=== PATIENT | female | born 1940 | race Caucasian/White ===

== ENCOUNTER 2022-06-25 17:55 | Outpatient (REF) | payer MEDICARE, SELFPAY ==
[2022-06-25 18:49] LABS: Appearance Urine Slightly Cloudy (Clear); Bilirubin Urine Negative (Negative); Blood Urine 1+ (Negative); Color Urine Yellow (Yellow); Glucose Urine Negative (Negative); Ketones Urine Negative (Negative); Leukocyte Esterase Urine 1+ (Negative); Nitrite Urine Negative (Negative); Protein Urine 1+ (Negative); Specific Gravity Urine 1.025 (1.000-1.030); Urobilinogen Urine 0.2 (0.2-1.0); pH Urine 5.5 (5.0-8.5)
[2022-06-25 19:13] LABS: RBC Urine 0-2 (0-2); Squamous Epithelial Cell Urine Moderate (None-Few)
== END 2022-06-25 17:56 | disposition home or self-care (01) ==
LOC: NPINS 17:55
PROVIDERS: Visit Provider Nurse Practitioner Gerontology
DX: R82.90 Unspecified abnormal findings in urine (principal)
CPT/HCPCS: 81001; 87086

== ENCOUNTER 2022-06-29 20:16 | Outpatient (CLI) | payer MEDICARE, SELFPAY | END 2022-06-29 20:17 | disposition home or self-care (01) | LOC: AMB 07-15 12:38 | PROVIDERS: Visit Provider Family Medicine | DX: S09.90XA Unspecified injury of head, initial encounter (principal); W06.XXXA Fall from bed, initial encounter; Y92.121 Bathroom in nursing home as the place of occurrence of the external cause | CPT/HCPCS: A0425; A0427 ==

== ENCOUNTER 2022-06-29 20:37 | Emergency (ER) | payer MEDICARE, SELFPAY ==
[2022-06-29] VITALS (18 sets, daily range): BP systolic 109–132; BP diastolic 52–89; PULSE 62–66; RESP 18; TEMP 36; O2SAT 70–96
--- NOTE | 2022-06-29 20:45 | CRLHL7_ITS ---
For Patients: As a result of the Century Cures Act, medical imaging exams and procedure reports are released immediately into your electronic medical record. You may view this report before your referring provider. If you have questions, please contact your health care provider. INDICATION: Fall. TECHNIQUE: CT cervical spine without contrast. Coronal and sagittal reformats were generated. COMPARISON: CT cervical spine from 08/22/2021. FINDINGS: Vertebrae: Alignment is normal. No fractures or suspicious bony lesions. Discs and facet joints: Multilevel degenerative changes in the form of disc space narrowing, subchondral sclerosis, and small marginal osteophytes. The changes are most prominent at C6-C7. Osteoarthritic changes involve the apophyseal joints throughout the cervical spine. Extraspinal findings: Prevertebral soft tissues, visualized airway, and visualized lungs are unremarkable. IMPRESSION: Degenerative changes. No acute abnormality. Please note that all CT scans at this facility use dose modulation, iterative reconstruction, and/or weight-based dosing when appropriate to reduce radiation dose to as low as reasonably achievable. Dictated by Ángel Abdullahi MD @ 06/29/2022 9:43:54 PM (Electronically Signed)
--- NOTE | 2022-06-29 20:45 | CRLHL7_ITS ---
For Patients: As a result of the Century Cures Act, medical imaging exams and procedure reports are released immediately into your electronic medical record. You may view this report before your referring provider. If you have questions, please contact your health care provider. INDICATION: Fall. TECHNIQUE: Head CT without contrast. Coronal and sagittal reformats were generated. COMPARISON: CT head from 03/08/2022 and 11/19/2021. FINDINGS: CSF spaces: Within normal limits for age. Brain parenchyma and extra-axial spaces: Nonspecific low attenuation white matter changes consistent with chronic microvascular disease. No sign of mass, hemorrhage, or midline shift. Skull base and calvarium: The visualized paranasal sinuses and mastoid air cells demonstrate no acute or significant findings. The visualized orbits are grossly unremarkable. No skull fractures. IMPRESSION: No acute or significant findings. Please note that all CT scans at this facility use dose modulation, iterative reconstruction, and/or weight-based dosing when appropriate to reduce radiation dose to as low as reasonably achievable. Dictated by Ángel Abdullahi MD @ 06/29/2022 9:46:13 PM (Electronically Signed)
--- NOTE | 2022-06-29 20:45 | CRLHL7_ITS ---
For Patients: As a result of the Century Cures Act, medical imaging exams and procedure reports are released immediately into your electronic medical record. You may view this report before your referring provider. If you have questions, please contact your health care provider. INDICATION: Fall. TECHNIQUE: CT thoracic spine without contrast. Coronal and sagittal reformats were generated. COMPARISON: None. FINDINGS: Vertebrae: Mild increased kyphosis. No fractures or suspicious bony lesions. Discs and facet joints: Multilevel degenerative changes in the form of disc space narrowing, subchondral sclerosis, and marginal osteophyte formation. Extraspinal findings: Prevertebral soft tissues, visualized airway, and visualized lungs are unremarkable. 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 IMPRESSION: IMPRESSION:No sign of acute injury. Please note that all CT scans at this facility use dose modulation, iterative reconstruction, and/or weight-based dosing when appropriate to reduce radiation dose to as low as reasonably achievable. Dictated by Ángel Abdullahi MD @ 06/29/2022 9:51:17 PM (Electronically Signed)
--- NOTE | 2022-06-29 20:48 | ED_ITS ---
HPI - General Adult General Time Seen by Provider: 20:43 Date Seen: 06/29/22 Chief complaint: Fall/Minor Trauma Stated complaint: Fall Time Seen by Provider: 06/29/22 20:41 Source: patient and EMS Mode of arrival: EMS Limitations: other (History of dementia) History of Present Illness HPI narrative: 82-year-old female who comes from [facility] after fall. Patient says she was up to the bathroom and lost her balance going back to bed. She did hit her head and thinks she may have lost consciousness. Complains of head, neck, and back pain. Denies preceding chest pain, lightheadedness, palpitations, or shortness of breath. Denies preceding nausea, vomiting, diarrhea. Other than her head, neck, and back pain, no other complaints at this time. Arrives in cervical collar by EMS. Related Data Home Medications Medication Instructions Recorded Confirmed acetaminophen 500 mg tablet 1,000 mg PO Q6H PRN pain 06/29/22 06/29/22 (Acetaminophen Extra Strength) albuterol sulfate 90 mcg/actuation 1 puff inhalation Q4H PRN 06/29/22 06/29/22 aerosol inhaler bronchospasm aluminum-mag hydroxide-simethicone 30 ml PO PRN indigestion 06/29/22 200 mg-200 mg-20 mg/5 mL oral susp (Maalox Advanced) ascorbic acid (vitamin C) 1,000 mg 1 g PO BID 06/29/22 06/29/22 tablet aspirin 81 mg tablet,delayed 81 mg PO .QHS 06/29/22 06/29/22 release (John Low Dose Aspirin) atorvastatin 20 mg tablet 20 mg PO DAILY 06/29/22 06/29/22 bisacodyl 10 mg rectal suppository 10 mg OR PRN constipation 06/29/22 cholecalciferol (vitamin D3) 50 2,000 unit PO DAILY 06/29/22 06/29/22 mcg (2,000 unit) tablet (Vitamin D3) fluticasone 113 mcg-salmeterol 14 1 inh inhalation BID 06/29/22 06/29/22 mcg/actuation breath activated powdr fluticasone propionate 50 2 spray intranasal BID 06/29/22 06/29/22 mcg/actuation nasal spray,suspension furosemide 20 mg tablet 10 mg PO DAILY 06/29/22 06/29/22 gabapentin 100 mg capsule 200 mg PO TID 06/29/22 06/29/22 galantamine 8 mg 24 hr 8 mg PO DAILY 06/29/22 06/29/22 capsule,extended release isosorbide mononitrate 60 mg 60 mg PO DAILY 06/29/22 06/29/22 tablet,extended release 24 hr lamotrigine 150 mg tablet 300 mg PO DAILY 06/29/22 06/29/22 levothyroxine 88 mcg tablet 88 mcg PO DAILY 06/29/22 06/29/22 melatonin 3 mg tablet 3 mg PO .qhs 06/29/22 06/29/22 memantine 14 mg capsule 14 mg PO DAILY 06/29/22 06/29/22 sprinkle,extended release 24hr methenamine hippurate 1 gram tablet 1 g PO BID 06/29/22 06/29/22 nitroglycerin 0.4 mg sublingual 0.4 mg sublingual Q5M PRN 06/29/22 06/29/22 tablet polyethylene glycol 3350 17 17 g PO DAILY 06/29/22 06/29/22 gram/dose oral powder (Miralax) sennosides 8.6 mg tablet (senna) 8.6 mg PO DAILY 06/29/22 06/29/22 sertraline 100 mg tablet 100 mg PO DAILY 06/29/22 06/29/22 Allergies Allergy/AdvReac Type Severity Reaction Status Date / Time cefdinir Allergy Verified 06/29/22 21:08 cephalexin Allergy Verified 06/29/22 21:08 nitrofurantoin Allergy Verified 06/29/22 21:08 Sulfa (Sulfonamide Allergy Verified 06/29/22 21:08 Antibiotics) Review of Systems Status of ROS: Reports: 10 or more systems reviewed and unremarkable except as noted in History and below [facility] Medical History (Updated 06/29/22 @ 22:34 by Bautista Krishnamurthy MD) Alzheimer's disease with late onset Calculus of gallbladder with acute cholecystitis without obstruction Calculus of kidney Constipation, unspecified Dementia in other diseases classified elsewhere with behavioral disturbance 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, unspecified Edema, unspecified Essential (primary) hypertension Gastro-esophageal reflux disease without esophagitis Generalized anxiety disorder Hyperlipidemia, unspecified Hypothyroidism, unspecified Immunodeficiency, unspecified Obesity, unspecified Other idiopathic peripheral autonomic neuropathy Other specified symptoms and signs involving the digestive system and abdomen Pain, unspecified Personal history of (healed) traumatic fracture Presence of other specified devices Repeated falls Restless legs syndrome Retention of urine, unspecified Sensorineural hearing loss, bilateral ST elevation (STEMI) myocardial infarction involving other coronary artery of anterior wall Syncope and collapse Traumatic subdural hemorrhage with loss of consciousness of unspecified duration, subsequent encounter Type 2 diabetes mellitus without complications Unspecified urethral stricture, female Urinary tract infection, site not specified Vitamin B12 deficiency anemia, unspecified Vitamin deficiency, unspecified Surgical History (Updated 06/29/22 @ 21:22 by Aixa Resendiz RN) Other specified postprocedural states Social History Smoking Status: Unknown if ever smoked How often do you have a drink containing alcohol: never AUDIT-C Alcohol total score: 0 Non-prescribed substance use: denies use Exam Narrative: Exam Narrative: Airway intact Breathing respirations nonlabored, lungs clear bilaterally Circulation had dried blood in the hair, no other obvious sources of bleeding Neuro alert and oriented x3, no focal neurologic deficits General: Well-developed and well-nourished, no acute distress Head: Bloody hair left occipital area with about 3 cm area of linear dry blood, question laceration but unable to visualize this area. Boggy swelling around this. Eyes: Pupils are equal reactive, extraocular motions intact, conjunctiva clear ENT: External nose and ears are normal, posterior pharynx without erythema or exudate Neck: Cervical collar in place, midline tenderness at C5-C6 Heart: Regular rate and rhythm no murmurs or thrills Lungs: Clear to auscultation bilaterally without wheezes or crackles Abdomen: Soft, nontender, nondistended with active bowel sounds Musculoskeletal: Upper thoracic tenderness, no low thoracic or lumbar tenderness. No tenderness or deformity of the upper extremities. Moderate bilateral lower extremity edema, no tenderness of the lower extremities and patient straight leg raises each leg independently without difficulty Neurologic: Awake, alert, and oriented x3, no gross focal neurologic deficits, cranial nerves intact as tested Psych: Mood and affect are appropriate Skin: No rashes Const: Vital Signs, click to edit/add: Vital Signs - 24 hr 06/29/22 21:00 06/29/22 21:15 06/29/22 21:16 Temperature 96.8 F L Pulse Rate 65 66 Respiratory Rate 18 Blood Pressure 131/68 Blood Pressure [Le ft Upper Arm] 129/89 Pulse Oximetry 70 L 93 95 Oxygen Delivery Me thod Room Air 06/29/22 21:17 06/29/22 21:22 Temperature Pulse Rate 64 66 Respiratory Rate Blood Pressure 129/65 Blood Pressure [Le ft Upper Arm] Pulse Oximetry 96 93 Oxygen Delivery Me thod Course Course Hospital Course: Trauma team alert activated by EMS. Patient seen immediately on arrival. She has some blood in the back of the hair and reported head injury with loss of conscious, head CT is ordered to evaluate for possible intracranial hemorrhage or skull fracture. Cervical collar is in place and she does complain of some midline neck pain with low cervical tenderness, also has some upper thoracic tenderness. CT scans ordered to evaluate for bony injury, patient is neurologically intact. No evidence for extremity injury including hip fracture. Patient denies lightheadedness or syncope preceding her fall and says she lost her balance. Labs and EKG are ordered. If CT scans are reassuring and labs are reassuring, patient can be discharged home. Reevaluation(s) Reevaluation #1: CT scan of the head, neck, and thoracic spine negative. Cervical collar removed and patient has some dried blood on the left occipital area. This will be cleaned as it feels like there may be an underlying laceration that will need sutures. Time: 21:56 Reevaluation #2: Labs are reassuring, nurse is cleaning scalp to determine if there is a suturable laceration. Time: 22:27 Reevaluation #3: 3 mm superficial laceration on the left occipital area which is the source of bleeding. Dermabond was applied. Time: 22:35 Vital Signs Vital signs: Initial Vital Signs Temperature 96.8 F L 06/29/22 21:00 Temperature Source Temporal Artery Scan 06/29/22 21:00 Respiratory Rate 18 06/29/22 21:00 Blood Pressure 129/89 06/29/22 21:00 Blood Pressure Mean 102 06/29/22 21:00 Pulse Oximetry 70 L 06/29/22 21:00 Oxygen Delivery Method 06/29/22 21:00 Vital Signs Temperature 96.8 F L 06/29/22 21:00 Respiratory Rate 18 06/29/22 21:00 Blood Pressure 129/89 06/29/22 21:00 Pulse Oximetry 70 L 06/29/22 21:00 Oxygen Delivery Method 06/29/22 21:00 Temperature 96.8 F L 06/29/22 21:00 Pulse Rate 66 06/29/22 21:22 Respiratory Rate 18 06/29/22 21:00 Blood Pressure 129/65 06/29/22 21:22 Pulse Oximetry 93 06/29/22 21:22 Oxygen Delivery Method 06/29/22 21:00 Medical Decision Making Medical Records Medical records reviewed: Yes I reviewed the patient's medical records Lab Data Lab results reviewed: Yes I reviewed the patient's lab results Labs: Lab Results 06/29/22 06/29/22 Range/Units 20:45 20:45 WBC 3.70 L (4.50-11.00) K/uL RBC 3.65 L (4.00-5.20) m/uL Hgb 11.1 L (12.0-16.0) gm/dL Hct 33.5 (33.0-51.0) % MCV 92 (80-100) fL MCH 30 (26-34) pg MCHC 33 (32-36) gm/dL RDW Coeff of Latoya 13.2 (11.5-15.5) % Plt Count 123 L (140-440) K/uL Neut % (Auto) 58.1 (42.0-72.0) % Lymph % (Auto) 28.1 (20-44) % [place] % (Auto) 10.5 (0.0-11.0) % Eos % (Auto) 3.0 (0.0-7.0) % Baso % (Auto) 0.3 (0.0-3.0) % Neut # (Auto) 2.10 (1.7-7.0) K/uL Lymph # (Auto) 1.00 (0.90-2.90) K/uL [place] # (Auto) 0.40 (0.00-0.90) K/UL Eos # (Auto) 0.10 (0.00-0.50) K/uL Baso # (Auto) 0.00 (0.00-0.30) K/uL Abs Immat Gran (auto) 0.00 (0.00-0.30) K/uL Sodium 139 (135-149) mmol/L Potassium 3.7 (3.6-5.1) mmol/L Chloride 104 (96-114) mmol/L Carbon Dioxide 26 (20-32) mmol/L BUN 16 (7-30) mg/dL Creatinine 0.7 (0.5-1.5) mg/dL Estimated GFR 87 ml/min Glucose 116 H (60-115) mg/dL Calcium 8.5 (8.4-10.6) mg/dL Discharge Plan Discharge Clinical Impression: Hematoma of occipital region of scalp, Abrasion of scalp Patient Disposition: Home w/ Parent or Adult Condition: Stable Instructions: Scalp Contusion in Adults (ED), Head Laceration (ED) Additional Instructions: The abrasion on the back of the head was sealed with tissue adhesive. Keep this area dry today and tomorrow, on Thursday you may wash your hair. There may still be a little bit of bleeding so put a towel or old pillow case on your pillow Activity Level: No Restrictions Discharge Diet: Regular Prescriptions: No Action acetaminophen [Acetaminophen Extra Strength] 500 mg tablet 1,000 mg PO Q6H PRN (Reason: pain) Label Comments: Give 2 tablets every 6 hours for pain albuterol sulfate 90 mcg/actuation HFA aerosol inhaler 1 puff INHALATION Q4H PRN (Reason: bronchospasm) Label Comments: 1 puff inhale by mouth every 4 hours as needed alum-mag hydroxide-simeth [Maalox Advanced] 200-200-20 mg/5 mL suspension 30 ml PO PRN (Reason: indigestion) Label Comments: Give 30ml as needed TID aspirin [John Low Dose Aspirin] 81 mg tablet,delayed release (DR/EC) 81 mg PO .QHS Label Comments: 1 tablet by mouth once a day atorvastatin 20 mg tablet 20 mg PO DAILY bisacodyl 10 mg suppository 10 mg OR PRN (Reason: constipation) Label Comments: Give 1 suppository rectally as needed fluticasone propionate 50 mcg/actuation spray,suspension 2 spray INTRANASAL BID furosemide 20 mg tablet 10 mg PO DAILY gabapentin 100 mg capsule 200 mg PO TID galantamine 8 mg capsule,ext rel. pellets 24 hr 8 mg PO DAILY ascorbic acid (vitamin C) 1,000 mg tablet 1 g PO BID Label Comments: 1 tablet by mouth twice a day cholecalciferol (vitamin D3) [Vitamin D3] 50 mcg (2,000 unit) tablet 2,000 unit PO DAILY Label Comments: 1 tablet by mouth once a day sertraline 100 mg tablet 100 mg PO DAILY fluticasone propion-salmeterol 113-14 mcg/actuation aerosol powdr breath activated 1 inh INHALATION BID isosorbide mononitrate 60 mg tablet extended release 24 hr 60 mg PO DAILY lamotrigine 150 mg tablet 300 mg PO DAILY levothyroxine 88 mcg tablet 88 mcg PO DAILY melatonin 3 mg tablet 3 mg PO .qhs Label Comments: 1 tablet by mouth at bedtime memantine 14 mg capsule,sprinkle,ER 24hr 14 mg PO DAILY methenamine hippurate 1 gram tablet 1 g PO BID polyethylene glycol 3350 [Miralax] 17 gram/dose powder 17 g PO DAILY Label Comments: Mix 1 capful of Miralax in water or juice every morning. nitroglycerin 0.4 mg tablet, sublingual 0.4 mg sublingual Q5M PRN sennosides [senna] 8.6 mg tablet 8.6 mg PO DAILY Label Comments: 1 tablet by mouth every morning Stand Alone Forms: [facility] Info Instructions
[2022-06-29 20:55] LABS: Basophils Percent Auto 0.3 % (0.0-3.0); Hematocrit 33.5 % (33.0-51.0); Hemoglobin* 11.1 gm/dL (12.0-16.0); Lymphocytes Percent Auto 28.1 % (20-44); Mean Corpuscular HGB Conc 33 gm/dL (32-36); Mean Corpuscular Hemoglobin 30 pg (26-34); Mean Corpuscular Volume 92 fL (80-100); Monocytes Percent Auto 10.5 % (0.0-11.0); Neutrophils Percent Auto 58.1 % (42.0-72.0); Platelet Count* 123 K/uL (140-440); RDW Coefficient of Variation % 13.2 % (11.5-15.5); Red Blood Count 3.65 m/uL (4.00-5.20); Slide Review Reflex No
[2022-06-29 21:07] LABS: Chloride* 104 mmol/L (96-114); Potassium* 3.7 mmol/L (3.6-5.1); Sodium* 139 mmol/L (135-149)
[2022-06-29 21:10] LABS: Blood Urea Nitrogen* 16 mg/dL (7-30); Calcium* 8.5 mg/dL (8.4-10.6); Carbon Dioxide* 26 mmol/L (20-32); Creatinine* 0.7 mg/dL (0.5-1.5); Estimated Glomerular Filt Rate 87 ml/min; Glucose* 116 mg/dL (60-115)
--- NOTE | 2022-06-29 21:30 | PC.NURSE ---
Update to ROGERIO Gardner at [facility]. Will keep [facility] updated on plan for patient.
--- NOTE | 2022-06-29 22:25 | PC.NURSE ---
Back of head cleaned with sure cleanse and sterile water. Dr. Krishnamurthy closed wound with dermabond.
--- NOTE | 2022-06-29 22:40 | PC.NURSE ---
Call to [facility] to notify staff that patient will be returning via private vehicle with driving.
== END 2022-06-29 23:04 | disposition home or self-care (01) ==
PROVIDERS: Emergency Provider Family Medicine
DX: S01.01XA Laceration without foreign body of scalp, initial encounter (principal); W18.30XA Fall on same level, unspecified, initial encounter; Y92.092 Bedroom in other non-institutional residence as the place of occurrence of the external cause
CPT/HCPCS: 12001; 36415; 70450; 72125; 72128; 80048; 85025; 99284; 99285; 99291; G0390

== ENCOUNTER 2022-07-08 11:18 | Outpatient (REF) | payer MEDICARE, SELFPAY ==
[2022-07-08 13:39] LABS: Hemoglobin* 11.9 gm/dL (12.0-16.0)
[2022-07-08 14:09] LABS: Chloride* 107 mmol/L (96-114); Potassium* 3.9 mmol/L (3.6-5.1); Sodium* 140 mmol/L (135-149)
[2022-07-08 14:11] LABS: Creatinine* 0.7 mg/dL (0.5-1.5); Estimated Glomerular Filt Rate 87 ml/min
[2022-07-08 14:12] LABS: Blood Urea Nitrogen* 11 mg/dL (7-30); Calcium* 9.1 mg/dL (8.4-10.6); Carbon Dioxide* 22 mmol/L (20-32); Glucose* 101 mg/dL (60-115)
[2022-07-08 14:57] LABS: Hemoglobin A1C* 5.92 % (0-5.6)
== END 2022-07-08 11:19 | disposition home or self-care (01) ==
LOC: NPINS 11:18
PROVIDERS: Visit Provider Nurse Practitioner Gerontology
DX: E11.9 Type 2 diabetes mellitus without complications (principal)
CPT/HCPCS: 80048; 83036; 84443; 85018

== ENCOUNTER 2022-07-13 11:54 | Outpatient (CLI) | payer MEDICARE, SELFPAY | END 2022-07-13 11:55 | disposition home or self-care (01) | PROVIDERS: Visit Provider Family Medicine | DX: S19.9XXA Unspecified injury of neck, initial encounter (principal); W19.XXXA Unspecified fall, initial encounter; Y92.092 Bedroom in other non-institutional residence as the place of occurrence of the external cause | CPT/HCPCS: A0425; A0429 ==

== ENCOUNTER 2022-07-13 12:07 | Emergency (ER) | payer MEDICARE, SELFPAY ==
[2022-07-13 12:13] VITALS: BP 119/76; TEMP 36.2; O2SAT 95
--- NOTE | 2022-07-13 12:15 | CRLHL7_ITS ---
For Patients: As a result of the Century Cures Act, medical imaging exams and procedure reports are released immediately into your electronic medical record. You may view this report before your referring provider. If you have questions, please contact your health care provider. INDICATION: Fall. TECHNIQUE: Noncontrast CT images acquired through the brain. COMPARISON: CT brain 06/29/2022. FINDINGS: Mild to moderate diffuse cerebral volume loss. No mass effect or midline shift. The galo-white differentiation is maintained. No acute intracranial hemorrhage or pathologic extra-axial fluid collection. Patchy hypoattenuation in the supratentorial white matter, suggestive of moderate chronic microvascular ischemic changes. Intracranial atherosclerotic calcifications. Thinning of the ocular lenses. The calvarium is intact. Postsurgical changes of endoscopic sinus surgery. Minimal ethmoid sinus mucosal thickening. The mastoid air cells are clear. IMPRESSION: No acute intracranial hemorrhage or mass effect. No significant change compared to the prior CT. Please note that all CT scans at this facility use dose modulation, iterative reconstruction, and/or weight-based dosing when appropriate to reduce radiation dose to as low as reasonably achievable. Dictated by Nolan Padilla MD @ 07/13/2022 1:11:37 PM (Electronically Signed)
--- NOTE | 2022-07-13 12:15 | CRLHL7_ITS ---
For Patients: As a result of the Cures Act, medical imaging exams and procedure reports are released immediately into your electronic medical record. You may view this report before your referring provider. If you have questions, please contact your health care provider. Indication: Fall Technique: AP pelvis and right hip views Comparison: No comparison Findings: Normal alignment. No acute fractures Dictated by Krupa Lester MD @ 07/13/2022 1:54:58 PM (Electronically Signed)
--- NOTE | 2022-07-13 12:15 | CRLHL7_ITS ---
For Patients: As a result of the Cures Act, medical imaging exams and procedure reports are released immediately into your electronic medical record. You may view this report before your referring provider. If you have questions, please contact your health care provider. Indication: Fall Technique: Three views left elbow Comparison: No comparison Findings: Normal alignment. No acute fractures. Soft tissue defect. No definite effusion. Dictated by Krupa Lester MD @ 07/13/2022 1:54:04 PM (Electronically Signed)
--- NOTE | 2022-07-13 12:15 | CRLHL7_ITS ---
For Patients: As a result of the Century Cures Act, medical imaging exams and procedure reports are released immediately into your electronic medical record. You may view this report before your referring provider. If you have questions, please contact your health care provider. INDICATION: Fall. TECHNIQUE: Noncontrast CT images acquired through the cervical spine. COMPARISON: CT cervical spine 06/29/2022. FINDINGS: The cervical lordosis is maintained. Mild biconvex cervical curvature. No acute fracture or traumatic subluxation. Shallow multilevel posterior disc osteophyte complexes without spinal canal stenosis. Multilevel facet arthropathy and uncinate spurring contributing to low-grade neural foraminal narrowing at C5-6 and C6-7. The lung apices are clear. IMPRESSION: 1. No acute fracture or traumatic subluxation. 2. Multilevel cervical spondylosis. Please note that all CT scans at this facility use dose modulation, iterative reconstruction, and/or weight-based dosing when appropriate to reduce radiation dose to as low as reasonably achievable. Dictated by Nolan Padilla MD @ 07/13/2022 1:15:42 PM (Electronically Signed)
[2022-07-13 12:30] VITALS: BP 115/68; RESP 16; O2SAT 94
[2022-07-13 12:36] LABS: Appearance Urine Cloudy (Clear); Basophils Percent Auto 0.3 % (0.0-3.0); Bilirubin Urine Negative (Negative); Blood Urine Trace-intact (Negative); Color Urine Yellow (Yellow); Eosinophils Percent Auto 2.9 % (0.0-7.0); Glucose Urine Negative (Negative); Hemoglobin* 11.3 gm/dL (12.0-16.0); Ketones Urine Negative (Negative); Leukocyte Esterase Urine 1+ (Negative); Lymphocytes Percent Auto 21.3 % (20-44); Mean Corpuscular HGB Conc 32 gm/dL (32-36); Mean Corpuscular Hemoglobin 30 pg (26-34); Mean Corpuscular Volume 93 fL (80-100); Monocytes Percent Auto 10.7 % (0.0-11.0); Neutrophils Percent Auto 64.8 % (42.0-72.0); Nitrite Urine Positive (Negative); Platelet Count* 124 K/uL (140-440); Protein Urine 1+ (Negative); RDW Coefficient of Variation % 13.2 % (11.5-15.5); Red Blood Count 3.76 m/uL (4.00-5.20); Specific Gravity Urine 1.025 (1.000-1.030); Urobilinogen Urine 0.2 (0.2-1.0); White Blood Count* 3.47 K/uL (4.50-11.00)
[2022-07-13 12:38] LABS: Slide Review Reflex No
[2022-07-13 12:45] LABS: Bacteria Urine Many; Calcium Oxalate Crystals Urine Few; Squamous Epithelial Cell Urine Few (None-Few)
[2022-07-13 12:52] LABS: Albumin* 4.3 g/dL (3.3-5.0); Chloride* 105 mmol/L (96-114); Sodium* 139 mmol/L (135-149)
[2022-07-13 12:55] LABS: Alanine Aminotransferase* 30 U/L (4-35); Alkaline Phosphatase* 99 U/L (40-150); Aspartate Amino Transferase* 47 U/L (12-35); Bilirubin Total* 0.7 mg/dL (0.1-1.5); Blood Urea Nitrogen* 12 mg/dL (7-30); Carbon Dioxide* 24 mmol/L (20-32); Creatinine* 0.7 mg/dL (0.5-1.5); Estimated Glomerular Filt Rate 87 ml/min; Glucose* 125 mg/dL (60-115); Total Protein* 7.1 g/dL (6.0-8.3)
--- NOTE | 2022-07-13 13:23 | ED.NURSE ---
dr rodrigues did remove the ct collar. doing exam.
--- NOTE | 2022-07-13 13:24 | ED.GENADULT ---
HPI - General Adult General Chief complaint: Fall/Minor Trauma Stated complaint: Fall Time Seen by Provider: 07/13/22 12:09 History of Present Illness HPI narrative: Pat is an 82-year-old female patient with known history of dementia, current living in the [facility], presents via EMS after being found down her facility. Patient was believed to have fallen sometime in the night. Unfortunately, the fall was unwitnessed. Patient is unable to give details regarding fall. She reports subsequent neck pain and right hip pain as well as left elbow pain. She was placed in C-collar and transported by EMS for further evaluation and treatment. Patient is unable to contribute any significant review of systems. He denies any and all acute concerns or complaints at present. No significant report from the nursing facility was given to nursing staff and therefore ROS is limited. Related Data Home Medications Medication Instructions Recorded Confirmed acetaminophen 500 mg tablet 1,000 mg PO Q6H PRN pain 06/29/22 06/29/22 (Acetaminophen Extra Strength) albuterol sulfate 90 mcg/actuation 1 puff inhalation Q4H PRN 06/29/22 06/29/22 aerosol inhaler bronchospasm aluminum-mag hydroxide-simethicone 30 ml PO PRN indigestion 06/29/22 200 mg-200 mg-20 mg/5 mL oral susp (Maalox Advanced) ascorbic acid (vitamin C) 1,000 mg 1 g PO BID 06/29/22 06/29/22 tablet aspirin 81 mg tablet,delayed 81 mg PO .QHS 06/29/22 06/29/22 release (John Low Dose Aspirin) atorvastatin 20 mg tablet 20 mg PO DAILY 06/29/22 06/29/22 bisacodyl 10 mg rectal suppository 10 mg RI PRN constipation 06/29/22 cholecalciferol (vitamin D3) 50 2,000 unit PO DAILY 06/29/22 06/29/22 mcg (2,000 unit) tablet (Vitamin D3) fluticasone 113 mcg-salmeterol 14 1 inh inhalation BID 06/29/22 06/29/22 mcg/actuation breath activated powdr fluticasone propionate 50 2 spray intranasal BID 06/29/22 06/29/22 mcg/actuation nasal spray,suspension furosemide 20 mg tablet 10 mg PO DAILY 06/29/22 06/29/22 gabapentin 100 mg capsule 200 mg PO TID 06/29/22 06/29/22 galantamine 8 mg 24 hr 8 mg PO DAILY 06/29/22 06/29/22 capsule,extended release isosorbide mononitrate 60 mg 60 mg PO DAILY 06/29/22 06/29/22 tablet,extended release 24 hr lamotrigine 150 mg tablet 300 mg PO DAILY 06/29/22 06/29/22 levothyroxine 88 mcg tablet 88 mcg PO DAILY 06/29/22 06/29/22 melatonin 3 mg tablet 3 mg PO .qhs 06/29/22 06/29/22 memantine 14 mg capsule 14 mg PO DAILY 06/29/22 06/29/22 sprinkle,extended release 24hr methenamine hippurate 1 gram tablet 1 g PO BID 06/29/22 06/29/22 nitroglycerin 0.4 mg sublingual 0.4 mg sublingual Q5M PRN 06/29/22 06/29/22 tablet polyethylene glycol 3350 17 17 g PO DAILY 06/29/22 06/29/22 gram/dose oral powder (Miralax) sennosides 8.6 mg tablet (senna) 8.6 mg PO DAILY 06/29/22 06/29/22 sertraline 100 mg tablet 100 mg PO DAILY 06/29/22 06/29/22 Allergies Allergy/AdvReac Type Severity Reaction Status Date / Time cefdinir Allergy Verified 06/29/22 21:08 cephalexin Allergy Verified 06/29/22 21:08 nitrofurantoin Allergy Verified 06/29/22 21:08 Sulfa (Sulfonamide Allergy Verified 06/29/22 21:08 Antibiotics) Review of Systems Status of ROS: Reports: unobtainable due to medical condition (Not reliable but ROS as reported by patient) Const: Reports: fatigue; Denies: fever, chills or malaise Eyes: Denies: change in vision, blurry vision, light sensitivity, eye discomfort or seeing flashes ENMT: Reports: neck pain; Denies: change in hearing or vertigo Cardio: Denies: chest pain, palpitations, lightheadedness, shortness of breath with exertion or shortness of breath when lying down Resp: Denies: shortness of breath GI: Denies: abdominal pain, nausea, vomiting, diarrhea or constipation : Reports: other ([place] catheter in place ); Denies: painful urination, urinary frequency or urinary urgency Musculo: Reports: neck pain, joint pain (left elbow and right hip) and limited range of motion Integ/Breast: Reports: other (skin tear left elbow) Neuro: Reports: headache, weakness in extremities, lack of coordination, confusion and difficulty communicating thoughts; Denies: numbness in extremities, dizziness, vertigo, behavioral changes, slurred speech or involuntary movements Endo: Reports: fatigue PFSH PFS Medical History (Updated 07/13/22 @ 13:54 by Yun Gomez DO) Alzheimer's disease with late onset Calculus of gallbladder with acute cholecystitis without obstruction Calculus of kidney Constipation, unspecified Dementia in other diseases classified elsewhere with behavioral disturbance 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, unspecified Edema, unspecified Essential (primary) hypertension Gastro-esophageal reflux disease without esophagitis Generalized anxiety disorder Hyperlipidemia, unspecified Hypothyroidism, unspecified Immunodeficiency, unspecified Obesity, unspecified Other idiopathic peripheral autonomic neuropathy Other specified symptoms and signs involving the digestive system and abdomen Pain, unspecified Personal history of (healed) traumatic fracture Presence of other specified devices Repeated falls Restless legs syndrome Retention of urine, unspecified Sensorineural hearing loss, bilateral ST elevation (STEMI) myocardial infarction involving other coronary artery of anterior wall Syncope and collapse Traumatic subdural hemorrhage with loss of consciousness of unspecified duration, subsequent encounter Type 2 diabetes mellitus without complications Unspecified urethral stricture, female Urinary tract infection, site not specified Vitamin B12 deficiency anemia, unspecified Vitamin deficiency, unspecified Surgical History (Updated 06/29/22 @ 21:22 by Aixa Resendiz RN) Other specified postprocedural states Social History Smoking Status: Unknown if ever smoked How often do you have a drink containing alcohol: never AUDIT-C Alcohol total score: 0 Non-prescribed substance use: denies use Exam Const: Vital Signs, click to edit/add: Vital Signs - 24 hr 07/13/22 12:13 07/13/22 12:30 Temperature 97.2 F L Respiratory Rate 16 Blood Pressure [Ri ght Upper Arm] 119/76 115/68 Pulse Oximetry 95 94 Oxygen Delivery Me thod Room Air Documenting provider has reviewed patient's vital signs: yes Common normals: no apparent distress, average body habitus, alert and well nourished General appearance: cooperative (redirectable), comfortable, well developed and frail appearing; not in distress and not lethargic Orientation/consciousness: Yes awake and Yes confused; not lethargic HENMT: Common normals: normocephalic and head/scalp atraumatic Head and scalp: normal to inspection, normocephalic and atraumatic Face and sinus: normal facial exam Mouth: moist mucous membranes abnormal Details: parched Teeth and gingiva: abnormal tooth and associated gingiva (poor dentition) Eye: Common normals: PERRL and EOMs intact bilaterally General eye: normal appearance of both eyes Pupil: PERRL Direct Ophthalmoscopy: no photophobia Neck & C-Spine: Common normals: full ROM, no lymphadenopathy and supple General: tenderness (right paraspinals, not reproducible with repeat exams) Cervical spine: cervical ROM normal and paracervical muscle tenderness (not reproducible during follow-up exams); no pain with cervical ROM, no cervical spine tenderness, no paracervical muscle spasm and Lhermitte's sign negative Resp: Common normals: normal respiratory effort, no retractions, no use of accessory muscles and clear to auscultation bilaterally Effort & inspection: able to speak in complete sentences Auscultation: clear to auscultation bilaterally; no crackles, no rhonchi and no wheezes Cardio: Common normals: regular rate, regular rhythm, S1 normal heart sound, S2 normal heart sound, no gallops, no clicks and no murmurs Rate: regular rate Rhythm: regular rhythm Heart sounds: S1 normal and S2 normal GI: Common normals: Normal to inspection, nondistended, normoactive bowel sounds present, soft to palpation and non-tender Palpation: soft : Bladder/kidney exam: catheter in place Catheter type (Female): urethral Back & Pelvis: Common normals: thoracic and lumbar spine normal to inspection and no thoracic nor lumbar tenderness Pelvis: no pain with anterior-posterior compression and no pain with lateral compression (initially reports positive pain on right, not noted on subsequent exam) Extremity: Common normals: normal to inspection, full ROM and no clubbing, cyanosis or edema Neuro: [place] Coma Scale: document GCS findings [place]ney coma scale eye opening: Spontaneous (4) [place] coma scale verbal response: Orientated (5) [place] coma scale motor response: Obey commands (6) [place] coma scale total score: 15 Common normals: CN's II-XII intact bilaterally, moves all extremities, no focal motor deficits and no sensory deficits noted Sensorium/orientation: awake and alert; not lethargic Gait (neuro): normal gait Motor exam: strength 5/5 throughout and no movement abnormalities noted Psych: Common normals: mental status grossly normal, thought process normal, speech normal and activity/motor behavior normal Appearance: grossly normal Attitude: calm Activity/motor behavior: appropriate eye contact Speech: normal speech Thought process: normal thought process Thought content: normal thought content Attention/concentration: attention grossly intact Memory/cognition: memory grossly intact Insight: insight good Judgement: judgment good Skin: Trauma: abrasion (skin tear to right elbow) and other (multiple bruises in various stages of healing) Course Course Hospital Course: Pat was transported from the local [email or web address] for evaluation of fall that was unwitnessed sometime through the night or early AM. The patient was placed in C-collar by EMS and was transported to the ED for evaluation. She denies all complaints for ROS, but occasionally noted pain in her neck, right hip, and left elbow. Labs and imaging were ordered to evaluate patient for fall. The results were found to be negative for acute fracture or injury, apart from a skin tear on her left elbow. She has tolerated evaluation with minimal redirection necessary. She has required no treatment. She has tolerated PO intake and assisted with transitions. Reevaluation(s) Reevaluation #1: Pat was attempting to get herself out of bed and required redirection and repositioning. She did not sustain fall or injury. Cervical collar was removed after review of CT C-spine and negative exam. Time: 13:34 Reevaluation #2: Patient reports no significant symptoms at time of discharge and is apologetic for causing problems. Patient's vital signs have remained stable. The results were discussed, and the patient reportedly verbalized understanding, but her memory is clearly impaired with questions regarding transport and reason for waiting here. She remains only oriented to self. Her urine will not be treated today, in favor of waiting for culture results to not overtreat an asymptomatic patient. The patient was prepped for discharge, with her family stating they would transport. However, the facility requires patient to transport back via EMS. They will be notified for need for transport. The patient is able to transport with assistance of one staff. Time: 14:21 Vital Signs Vital signs: Initial Vital Signs Temperature 97.2 F L 07/13/22 12:13 Temperature Source Temporal Artery Scan 07/13/22 12:13 Blood Pressure 119/76 07/13/22 12:13 Blood Pressure Mean 90 07/13/22 12:13 Pulse Oximetry 95 07/13/22 12:13 Oxygen Delivery Method 07/13/22 12:13 Vital Signs Temperature 97.2 F L 07/13/22 12:13 Blood Pressure 119/76 07/13/22 12:13 Pulse Oximetry 95 07/13/22 12:13 Oxygen Delivery Method 07/13/22 12:13 Temperature 97.2 F L 07/13/22 12:13 Respiratory Rate 16 07/13/22 12:30 Blood Pressure 115/68 07/13/22 12:30 Pulse Oximetry 94 07/13/22 12:30 Oxygen Delivery Method 07/13/22 12:13 Medical Decision Making Lab Data Labs: Lab Results 07/13/22 07/13/22 07/13/22 Range/Units 12:30 12:30 12:30 WBC 3.47 L (4.50-11.00) K/uL RBC 3.76 L (4.00-5.20) m/uL Hgb 11.3 L (12.0-16.0) gm/dL Hct 35.0 (33.0-51.0) % MCV 93 (80-100) fL MCH 30 (26-34) pg MCHC 32 (32-36) gm/dL RDW Coeff of Latoya 13.2 (11.5-15.5) % Plt Count 124 L (140-440) K/uL Neut % (Auto) 64.8 (42.0-72.0) % Lymph % (Auto) 21.3 (20-44) % [place] % (Auto) 10.7 (0.0-11.0) % Eos % (Auto) 2.9 (0.0-7.0) % Baso % (Auto) 0.3 (0.0-3.0) % Neut # (Auto) 2.20 (1.7-7.0) K/uL Lymph # (Auto) 0.70 L (0.90-2.90) K/uL [place] # (Auto) 0.40 (0.00-0.90) K/UL Eos # (Auto) 0.10 (0.00-0.50) K/uL Baso # (Auto) 0.00 (0.00-0.30) K/uL Abs Immat Gran (auto) 0.00 (0.00-0.30) K/uL Sodium 139 (135-149) mmol/L Potassium 4.0 (3.6-5.1) mmol/L Chloride 105 (96-114) mmol/L Carbon Dioxide 24 (20-32) mmol/L BUN 12 (7-30) mg/dL Creatinine 0.7 (0.5-1.5) mg/dL Estimated GFR 87 ml/min Glucose 125 H (60-115) mg/dL Calcium 9.0 (8.4-10.6) mg/dL Total Bilirubin 0.7 (0.1-1.5) mg/dL AST 47 H (12-35) U/L ALT 30 (4-35) U/L Alkaline Phosphatase 99 (40-150) U/L Total Protein 7.1 (6.0-8.3) g/dL Albumin 4.3 (3.3-5.0) g/dL Urine Color Yellow (Yellow) Urine Appearance Cloudy A (Clear) Urine pH 6.0 (5.0-8.5) Ur Specific [place] 1.025 (1.000-1.030) Urine Protein 1+ A (Negative) Urine Glucose (UA) Negative (Negative) Urine Ketones Negative (Negative) Urine Blood Trace-intact A (Negative) Urine Nitrite Positive A (Negative) Urine Bilirubin Negative (Negative) Urine Urobilinogen 0.2 (0.2-1.0) Ur Leukocyte Esterase 1+ A (Negative) Urine RBC 2-5 A (0-2) Urine WBC 10-25 A (0-5) Ur Squamous Epith Cells Few (None-Few) Calcium Oxalate Crystal Few A (None) Urine Bacteria Many A (None) Discharge Plan Discharge Clinical Impression: Asymptomatic bacteriuria Dementia Qualifiers: Dementia type: unspecified type Dementia behavioral disturbance: without behavioral disturbance Qualified Code(s): F03.90 - Unspecified dementia without behavioral disturbance Fall Qualifiers: Encounter type: initial encounter Qualified Code(s): W19.XXXA - Unspecified fall, initial encounter Patient Disposition: Home, Self-Care Condition: Stable Instructions: Fall Prevention for Older Adults (ED) Additional Instructions: Thank you for choosing [facility] for your care today. Your care today was on an emergency basis and is not intended to be a substitute for on-going care with your primary physician. I recommend calling primary care for follow-up in the next 3-5 days for follow-up as needed and to review any labs, testing, or imaging you have had in the Emergency Department. We have not treated your urine with antibiotics, while we are awaiting cultures. This can be followed up with your primary covering physician/provider. If new or worsening symptoms develop or you have any concerns in the meantime, please call your primary care clinic or return to the ER for re-evaluation. Activity Level: No Restrictions, Activity as Tolerated and Other Activity Detail: Fall precautions, consider bed alarm Discharge Diet: Regular Diet Detail: As tolerated Prescriptions: No Action acetaminophen [Acetaminophen Extra Strength] 500 mg tablet 1,000 mg PO Q6H PRN (Reason: pain) Label Comments: Give 2 tablets every 6 hours for pain albuterol sulfate 90 mcg/actuation HFA aerosol inhaler 1 puff INHALATION Q4H PRN (Reason: bronchospasm) Label Comments: 1 puff inhale by mouth every 4 hours as needed alum-mag hydroxide-simeth [Maalox Advanced] 200-200-20 mg/5 mL suspension 30 ml PO PRN (Reason: indigestion) Label Comments: Give 30ml as needed TID aspirin [John Low Dose Aspirin] 81 mg tablet,delayed release (DR/EC) 81 mg PO .QHS Label Comments: 1 tablet by mouth once a day atorvastatin 20 mg tablet 20 mg PO DAILY bisacodyl 10 mg suppository 10 mg RI PRN (Reason: constipation) Label Comments: Give 1 suppository rectally as needed fluticasone propionate 50 mcg/actuation spray,suspension 2 spray INTRANASAL BID furosemide 20 mg tablet 10 mg PO DAILY gabapentin 100 mg capsule 200 mg PO TID galantamine 8 mg capsule,ext rel. pellets 24 hr 8 mg PO DAILY ascorbic acid (vitamin C) 1,000 mg tablet 1 g PO BID Label Comments: 1 tablet by mouth twice a day cholecalciferol (vitamin D3) [Vitamin D3] 50 mcg (2,000 unit) tablet 2,000 unit PO DAILY Label Comments: 1 tablet by mouth once a day sertraline 100 mg tablet 100 mg PO DAILY fluticasone propion-salmeterol 113-14 mcg/actuation aerosol powdr breath activated 1 inh INHALATION BID isosorbide mononitrate 60 mg tablet extended release 24 hr 60 mg PO DAILY lamotrigine 150 mg tablet 300 mg PO DAILY levothyroxine 88 mcg tablet 88 mcg PO DAILY melatonin 3 mg tablet 3 mg PO .qhs Label Comments: 1 tablet by mouth at bedtime memantine 14 mg capsule,sprinkle,ER 24hr 14 mg PO DAILY methenamine hippurate 1 gram tablet 1 g PO BID polyethylene glycol 3350 [Miralax] 17 gram/dose powder 17 g PO DAILY Label Comments: Mix 1 capful of Miralax in water or juice every morning. nitroglycerin 0.4 mg tablet, sublingual 0.4 mg sublingual Q5M PRN sennosides [senna] 8.6 mg tablet 8.6 mg PO DAILY Label Comments: 1 tablet by mouth every morning Follow Up/Referrals: Provider,Not a Local [Primary Care Provider] - Stand Alone Forms: Next [facility] Info Instructions
--- NOTE | 2022-07-13 13:30 | ED.NURSE ---
Patient given sandwich.
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
--- NOTE | 2022-07-13 15:19 | ED.NURSE ---
Patient received at facility by Angella, staff member.
== END 2022-07-13 14:59 | disposition home or self-care (01) ==
PROVIDERS: Emergency Provider Family Medicine
DX: R82.71 Bacteriuria (principal); F03.90 Unspecified dementia, unspecified severity, without behavioral disturbance, psychotic disturbance, mood disturbance, and anxiety; W19.XXXA Unspecified fall, initial encounter
CPT/HCPCS: 36415; 70450; 72125; 73080; 73502; 80053; 81003; 81015; 85025; 87086; 87186; 99283; 99284; 99285

== ENCOUNTER 2023-01-27 11:34 | Outpatient (REF) | payer MEDICARE, SELFPAY ==
[2023-01-27 12:24] LABS: Basophils Absolute Auto 0.01 K/uL (0.00-0.30); Basophils Percent Auto 0.2 % (0.0-3.0); Eosinophils Absolute Auto 0.13 K/uL (0.00-0.50); Eosinophils Percent Auto 2.1 % (0.0-7.0); Hematocrit 40.3 % (33.0-51.0); Hemoglobin* 13.1 gm/dL (12.0-16.0); Immature Granulocytes Abs Auto 0.01 K/uL (0.00-0.30); Immature Granulocytes Pct Auto 0.2 %; Mean Corpuscular HGB Conc 33 gm/dL (32-36); Mean Corpuscular Hemoglobin 30 pg (26-34); Mean Corpuscular Volume 92 fL (80-100); Monocytes Percent Auto 8.9 % (0.0-11.0); Neutrophils Absolute Auto 4.22 K/uL (1.7-7.0); Neutrophils Percent Auto 69.6 % (42.0-72.0); Platelet Count* 176 K/uL (140-440); RDW Coefficient of Variation % 13.2 % (11.5-15.5); Red Blood Count 4.36 m/uL (4.00-5.20); White Blood Count* 6.06 K/uL (4.50-11.00)
[2023-01-27 12:30] LABS: Slide Review Reflex No
[2023-01-27 12:38] LABS: Chloride* 105 mmol/L (96-114); Sodium* 140 mmol/L (135-149)
[2023-01-27 12:39] LABS: Potassium* 3.8 mmol/L (3.6-5.1)
[2023-01-27 12:41] LABS: Blood Urea Nitrogen* 14 mg/dL (7-30); Carbon Dioxide* 27 mmol/L (20-32); Cholesterol* 137 mg/dL (90-199); Creatinine* 0.8 mg/dL (0.5-1.5); Estimated Glomerular Filt Rate 74 ml/min
[2023-01-27 12:42] LABS: Calcium* 9.2 mg/dL (8.4-10.6); Glucose* 115 mg/dL (60-115); HDL Cholesterol* 56 mg/dL (>=50); LDL Cholesterol Calculated 55 mg/dL (<100); Triglycerides* 131 mg/dL (40-149)
== END 2023-01-27 11:35 | disposition home or self-care (01) ==
LOC: NPINS 11:34
PROVIDERS: Visit Provider Nurse Practitioner Gerontology
DX: D64.9 Anemia, unspecified (principal); E03.9 Hypothyroidism, unspecified; E78.5 Hyperlipidemia, unspecified
CPT/HCPCS: 80048; 80061; 84443; 85025

== ENCOUNTER 2023-08-07 16:56 | Outpatient (REF) | payer MEDICARE, SELFPAY ==
[2023-08-07 18:03] LABS: Appearance Urine Clear (Clear); Bilirubin Urine Negative (Negative); Blood Urine 3+ (Negative); Color Urine Yellow (Yellow); Glucose Urine Negative (Negative); Ketones Urine Negative (Negative); Leukocyte Esterase Urine 1+ (Negative); Nitrite Urine Negative (Negative); Protein Urine 3+ (Negative); Specific Gravity Urine >= 1.030 (1.000-1.030); Urobilinogen Urine 0.2 (0.2-1.0)
[2023-08-07 18:39] LABS: Bacteria Urine Many; Calcium Oxalate Crystals Urine Many; RBC Urine 25-50 (0-2); Squamous Epithelial Cell Urine Moderate (None-Few); WBC Urine 50-100 (0-5)
[2023-08-07 18:40] LABS: Mucus Urine Few
== END 2023-08-07 16:57 | disposition home or self-care (01) ==
LOC: NPINS 16:56
PROVIDERS: Visit Provider Nurse Practitioner Gerontology
DX: Z46.6 Encounter for fitting and adjustment of urinary device (principal); N31.9 Neuromuscular dysfunction of bladder, unspecified; R10.2 Pelvic and perineal pain
CPT/HCPCS: 81003; 81015; 87086; 87186

== ENCOUNTER 2023-09-04 19:56 | Emergency (ER) | payer MEDICARE, SELFPAY ==
[2023-09-04 20:05] VITALS: BP 129/73; PULSE 71; RESP 18; TEMP 36.7; O2SAT 97; BMI 26.6
--- NOTE | 2023-09-04 20:38 | ED_ITS ---
HPI - Female Genitourinary General Date Seen: 09/04/23 Chief complaint: Urogenital Problems, Female Stated complaint: catheter problems Time Seen by Provider: 09/04/23 20:08 Source: family (Daughter) Mode of arrival: wheelchair History of Present Illness HPI Narrative: Patient is an 83-year-old female presenting to the emergency department for pulling out her Corona. 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 She has replaced every 2 weeks but accidentally poured out tonight. This has happened several times in the past and she has never had any issues from pulling it out accidentally. They do not have the supplies ordered staff to do with at her memory care unit. No other concerns at this time Related Data Home Medications Medication Instructions Recorded Confirmed acetaminophen 500 mg tablet 1,000 mg PO Q6H PRN pain 06/29/22 06/29/22 (Acetaminophen Extra Strength) albuterol sulfate 90 mcg/actuation 1 puff inhalation Q4H PRN 06/29/22 06/29/22 aerosol inhaler bronchospasm aluminum-mag hydroxide-simethicone 30 ml PO PRN indigestion 06/29/22 200 mg-200 mg-20 mg/5 mL oral susp (Maalox Advanced) ascorbic acid (vitamin C) 1,000 mg 1 g PO BID 06/29/22 06/29/22 tablet aspirin 81 mg tablet,delayed 81 mg PO .QHS 06/29/22 06/29/22 release (John Low Dose Aspirin) atorvastatin 20 mg tablet 20 mg PO DAILY 06/29/22 06/29/22 bisacodyl 10 mg rectal suppository 10 mg UT PRN constipation 06/29/22 cholecalciferol (vitamin D3) 50 2,000 unit PO DAILY 06/29/22 06/29/22 mcg (2,000 unit) tablet (Vitamin D3) fluticasone 113 mcg-salmeterol 14 1 inh inhalation BID 06/29/22 06/29/22 mcg/actuation breath activated powdr fluticasone propionate 50 2 spray intranasal BID 06/29/22 06/29/22 mcg/actuation nasal spray,suspension furosemide 20 mg tablet 10 mg PO DAILY 06/29/22 06/29/22 gabapentin 100 mg capsule 200 mg PO TID 06/29/22 06/29/22 galantamine 8 mg 24 hr 8 mg PO DAILY 06/29/22 06/29/22 capsule,extended release isosorbide mononitrate 60 mg 60 mg PO DAILY 06/29/22 06/29/22 tablet,extended release 24 hr lamotrigine 150 mg tablet 300 mg PO DAILY 06/29/22 06/29/22 levothyroxine 88 mcg tablet 88 mcg PO DAILY 06/29/22 06/29/22 melatonin 3 mg tablet 3 mg PO .qhs 06/29/22 06/29/22 memantine 14 mg capsule 14 mg PO DAILY 06/29/22 06/29/22 sprinkle,extended release 24hr methenamine hippurate 1 gram tablet 1 g PO BID 06/29/22 06/29/22 nitroglycerin 0.4 mg sublingual 0.4 mg sublingual Q5M PRN 06/29/22 06/29/22 tablet polyethylene glycol 3350 17 17 g PO DAILY 06/29/22 06/29/22 gram/dose oral powder (Miralax) sennosides 8.6 mg tablet (senna) 8.6 mg PO DAILY 06/29/22 06/29/22 sertraline 100 mg tablet 100 mg PO DAILY 06/29/22 06/29/22 Allergies Allergy/AdvReac Type Severity Reaction Status Date / Time cefdinir Allergy Verified 06/29/22 21:08 cephalexin Allergy Verified 06/29/22 21:08 nitrofurantoin Allergy Verified 06/29/22 21:08 Sulfa (Sulfonamide Allergy Verified 06/29/22 21:08 Antibiotics) Review of Systems Narrative: Negative unless stated in [facility] [place] Medical History (Updated 09/04/23 @ 20:42 by [place] DO) Obesity, unspecified ?E66.9 - Obesity, unspecified (ICD-10) Gastro-esophageal reflux disease without esophagitis ?K21.9 - Gastro-esophageal reflux disease without esophagitis (ICD-10) Vitamin deficiency, unspecified ?E56.9 - Vitamin deficiency, unspecified (ICD-10) Vitamin B12 deficiency anemia, unspecified ?D51.9 - Vitamin B12 deficiency anemia, unspecified (ICD-10) Hyperlipidemia, unspecified ?E78.5 - Hyperlipidemia, unspecified (ICD-10) Hypothyroidism, unspecified ?E03.9 - Hypothyroidism, unspecified (ICD-10) Calculus of kidney ?N20.0 - Calculus of kidney (ICD-10) Calculus of gallbladder with acute cholecystitis without obstruction ?K80.00 - Calculus of gallbladder with acute cholecystitis without obstr uction (ICD-10) Sensorineural hearing loss, bilateral ?H90.3 - Sensorineural hearing loss, bilateral (ICD-10) Generalized anxiety disorder ?F41.1 - Generalized anxiety disorder (ICD-10) Other idiopathic peripheral autonomic neuropathy ?G90.09 - Other idiopathic peripheral autonomic neuropathy (ICD-10) Restless legs syndrome ?G25.81 - Restless legs syndrome (ICD-10) Immunodeficiency, unspecified ?D84.9 - Immunodeficiency, unspecified (ICD-10) Essential (primary) hypertension ?I10 - Essential (primary) hypertension (ICD-10) Type 2 diabetes mellitus without complications ?E11.9 - Type 2 diabetes mellitus without complications (ICD-10) ST elevation (STEMI) myocardial infarction involving other coronary artery of anterior wall ?I21.09 - ST elevation (STEMI) myocardial infarction involving other coronary artery of anterior wall (ICD-10) Presence of other specified devices ?Z97.8 - Presence of other specified devices (ICD-10) Personal history of (healed) traumatic fracture ?Z87.81 - Personal history of (healed) traumatic fracture (ICD-10) Urinary tract infection, site not specified ?N39.0 - Urinary tract infection, site not specified (ICD-10) Repeated falls ?R29.6 - Repeated falls (ICD-10) Dementia in other diseases classified elsewhere with behavioral disturbance ?F02.81 - Dementia in other diseases classified elsewhere with behavioral disturbance (ICD-10) Pain, unspecified ?R52 - Pain, unspecified (ICD-10) Unspecified urethral stricture, female ?N35.92 - Unspecified urethral stricture, female (ICD-10) Retention of urine, unspecified ?R33.9 - Retention of urine, unspecified (ICD-10) Syncope and collapse ?R55 - Syncope and collapse (ICD-10) Traumatic subdural hemorrhage with loss of consciousness of unspecified duration, subsequent encounter ?S06.5X9D - Traumatic subdural hemorrhage with loss of consciousness of unspecified duration, subsequent encounter (ICD-10) 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, unspecified ?E08.40 - 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, unspecified (ICD-10) Edema, unspecified ?R60.9 - Edema, unspecified (ICD-10) Constipation, unspecified ?K59.00 - Constipation, unspecified (ICD-10) Other specified symptoms and signs involving the digestive system and abdomen ?R19.8 - Other specified symptoms and signs involving the digestive system and abdomen (ICD-10) Alzheimer's disease with late onset ?G30.1 - Alzheimer's disease with late onset (ICD-10) ?F02.80 - Dementia in other diseases classified elsewhere without behavioral disturbance (ICD-10) Surgical History (Updated 06/29/22 @ 21:22 by Aixa Resendiz RN) Other specified postprocedural states ?Z98.890 - Other specified postprocedural states (ICD-10) Social History Smoking Status: Unknown if ever smoked How often do you have a drink containing alcohol: never AUDIT-C Alcohol total score: 0 Non-prescribed substance use: denies use Exam Narrative: Exam Narrative: Const: Well-nourished, Well-developed, in no distress Eyes: PERRL, no conjunctival injection, and symmetrical lids HENT: Atraumatic external nose and ears. Moist mucous membranes. : Pelvic exam done showing no signs of bleeding or injury MSK:Extremities w/o deformity, Normal Active ROM Skin: Warm, Dry. No rashes or lesions. Neuro: Normal Muscle tone, No focal neurological deficits. Psych: Awake, Alert, & Oriented x3. Appropriate mood and affect. Const: Vital Signs, click to edit/add: Vital Signs - 24 hr 09/04/23 20:05 Temperature 98.1 F Pulse Rate [Pulse Oximeter] 71 Respiratory Rate 18 Blood Pressure [Ri ght Upper Arm] 129/73 Pulse Oximetry 97 Oxygen Delivery Me thod Room Air Course Vital Signs Vital signs: Initial Vital Signs Temperature 98.1 F 09/04/23 20:05 Temperature Source Temporal Artery Scan 09/04/23 20:05 Pulse Rate 71 09/04/23 20:05 Respiratory Rate 18 09/04/23 20:05 Blood Pressure 129/73 09/04/23 20:05 Blood Pressure Mean 91 09/04/23 20:05 Blood Pressure Position Sitting 09/04/23 20:05 Pulse Oximetry 97 09/04/23 20:05 Oxygen Delivery Method Room Air 09/04/23 20:05 Vital Signs Temperature 98.1 F 09/04/23 20:05 Pulse Rate 71 09/04/23 20:05 Respiratory Rate 18 09/04/23 20:05 Blood Pressure 129/73 09/04/23 20:05 Pulse Oximetry 97 09/04/23 20:05 Oxygen Delivery Method Room Air 09/04/23 20:05 Temperature 98.1 F 09/04/23 20:05 Pulse Rate 71 09/04/23 20:05 Respiratory Rate 18 09/04/23 20:05 Blood Pressure 129/73 09/04/23 20:05 Pulse Oximetry 97 09/04/23 20:05 Oxygen Delivery Method Room Air 09/04/23 20:05 MDM - Female Genitourinary MDM Narrative Medical decision making narrative: Patient stated is an 83 -year-old female presenting to the emergency department for Corona catheter care replacement. No other concerns at this time. No genital trauma seen on exam. Corona was replaced without complications and patient is discharged back to her memory care unit. Family agrees with this plan Discharge Plan Discharge Clinical Impression: Urinary catheter (Corona) change required Condition: Stable Instructions: Corona Catheter Placement and Care (ED) Additional Instructions: Follow-up with primary care provider if there are any issues with the Corona. Or return to the emergency department. Prescriptions: No Action acetaminophen [Acetaminophen Extra Strength] 500 mg tablet 1,000 mg PO Q6H PRN (Reason: pain) Patient Comments: Give 2 tablets every 6 hours for pain albuterol sulfate 90 mcg/actuation HFA aerosol inhaler 1 puff INHALATION Q4H PRN (Reason: bronchospasm) Patient Comments: 1 puff inhale by mouth every 4 hours as needed alum-mag hydroxide-simeth [Maalox Advanced] 200-200-20 mg/5 mL suspension 30 ml PO PRN (Reason: indigestion) Patient Comments: Give 30ml as needed TID aspirin [John Low Dose Aspirin] 81 mg tablet,delayed release (DR/EC) 81 mg PO .QHS Patient Comments: 1 tablet by mouth once a day atorvastatin 20 mg tablet 20 mg PO DAILY bisacodyl 10 mg suppository 10 mg UT PRN (Reason: constipation) Patient Comments: Give 1 suppository rectally as needed fluticasone propionate 50 mcg/actuation spray,suspension 2 spray INTRANASAL BID furosemide 20 mg tablet 10 mg PO DAILY gabapentin 100 mg capsule 200 mg PO TID galantamine 8 mg capsule,ext rel. pellets 24 hr 8 mg PO DAILY ascorbic acid (vitamin C) 1,000 mg tablet 1 g PO BID Patient Comments: 1 tablet by mouth twice a day cholecalciferol (vitamin D3) [Vitamin D3] 50 mcg (2,000 unit) tablet 2,000 unit PO DAILY Patient Comments: 1 tablet by mouth once a day sertraline 100 mg tablet 100 mg PO DAILY fluticasone propion-salmeterol 113-14 mcg/actuation aerosol powdr breath activated 1 inh INHALATION BID isosorbide mononitrate 60 mg tablet extended release 24 hr 60 mg PO DAILY lamotrigine 150 mg tablet 300 mg PO DAILY levothyroxine 88 mcg tablet 88 mcg PO DAILY melatonin 3 mg tablet 3 mg PO .qhs Patient Comments: 1 tablet by mouth at bedtime memantine 14 mg capsule,sprinkle,ER 24hr 14 mg PO DAILY methenamine hippurate 1 gram tablet 1 g PO BID polyethylene glycol 3350 [Miralax] 17 gram/dose powder 17 g PO DAILY Patient Comments: Mix 1 capful of Miralax in water or juice every morning. nitroglycerin 0.4 mg tablet, sublingual 0.4 mg sublingual Q5M PRN sennosides [senna] 8.6 mg tablet 8.6 mg PO DAILY Patient Comments: 1 tablet by mouth every morning Follow Up/Referrals: Mariam Miranda MD [Primary Care Provider] - Stand Alone Forms: [facility] Info Instructions
== END 2023-09-04 20:48 | disposition home or self-care (01) ==
PROVIDERS: Emergency Provider Student in an Organized Health Care Education/Training Program; PCP Internal Medicine
DX: T83.098A Other mechanical complication of other urinary catheter, initial encounter (principal)
CPT/HCPCS: 51705; 99282; 99283

== ENCOUNTER 2023-11-06 16:06 | Emergency (ER) | payer MEDICARE, SELFPAY ==
--- NOTE | 2023-11-06 16:22 | ED.GENADULT ---
HPI - General Adult General Chief complaint: Urogenital Problems, Female Stated complaint: Removed steen cath that was set today Time Seen by Provider: 11/06/23 16:19 History of Present Illness HPI narrative: Patient with chronic use of steen catheter was sent in from [facility] for replacement of steen catheter. Daughter was called and told that it was pulled out. 83-year-old woman presenting to the emergency department following accidental removal of indwelling Steen. 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 Not complaining of any pain. No fever. No blood noted. Urinary catheter was placed approximately 3 years ago for urinary retention. Has had bladder procedures prior. No noted symptoms that might otherwise be associated with urinary tract infection. No new weakness. Policies apparently have changed a place of residence where they cannot replace it. Has had to have it replaced here in the emergency department as well. Related Data Home Medications Medication Instructions Recorded Confirmed acetaminophen 500 mg tablet 1,000 mg PO Q6H PRN pain 06/29/22 06/29/22 (Acetaminophen Extra Strength) albuterol sulfate 90 mcg/actuation 1 puff inhalation Q4H PRN 06/29/22 06/29/22 aerosol inhaler bronchospasm aluminum-mag hydroxide-simethicone 30 ml PO PRN indigestion 06/29/22 200 mg-200 mg-20 mg/5 mL oral susp (Maalox Advanced) ascorbic acid (vitamin C) 1,000 mg 1 g PO BID 06/29/22 06/29/22 tablet aspirin 81 mg tablet,delayed 81 mg PO .QHS 06/29/22 06/29/22 release (John Low Dose Aspirin) atorvastatin 20 mg tablet 20 mg PO DAILY 06/29/22 06/29/22 bisacodyl 10 mg rectal suppository 10 mg FL PRN constipation 06/29/22 cholecalciferol (vitamin D3) 50 2,000 unit PO DAILY 06/29/22 06/29/22 mcg (2,000 unit) tablet (Vitamin D3) fluticasone 113 mcg-salmeterol 14 1 inh inhalation BID 06/29/22 06/29/22 mcg/actuation breath activated powdr fluticasone propionate 50 2 spray intranasal BID 06/29/22 06/29/22 mcg/actuation nasal spray,suspension furosemide 20 mg tablet 10 mg PO DAILY 06/29/22 06/29/22 gabapentin 100 mg capsule 200 mg PO TID 06/29/22 06/29/22 galantamine 8 mg 24 hr 8 mg PO DAILY 06/29/22 06/29/22 capsule,extended release isosorbide mononitrate 60 mg 60 mg PO DAILY 06/29/22 06/29/22 tablet,extended release 24 hr lamotrigine 150 mg tablet 300 mg PO DAILY 06/29/22 06/29/22 levothyroxine 88 mcg tablet 88 mcg PO DAILY 06/29/22 06/29/22 melatonin 3 mg tablet 3 mg PO .qhs 06/29/22 06/29/22 memantine 14 mg capsule 14 mg PO DAILY 06/29/22 06/29/22 sprinkle,extended release 24hr methenamine hippurate 1 gram tablet 1 g PO BID 06/29/22 06/29/22 nitroglycerin 0.4 mg sublingual 0.4 mg sublingual Q5M PRN 06/29/22 06/29/22 tablet polyethylene glycol 3350 17 17 g PO DAILY 06/29/22 06/29/22 gram/dose oral powder (Miralax) sennosides 8.6 mg tablet (senna) 8.6 mg PO DAILY 06/29/22 06/29/22 sertraline 100 mg tablet 100 mg PO DAILY 06/29/22 06/29/22 Allergies Allergy/AdvReac Type Severity Reaction Status Date / Time cefdinir Allergy Verified 06/29/22 21:08 cephalexin Allergy Verified 06/29/22 21:08 nitrofurantoin Allergy Verified 06/29/22 21:08 Sulfa (Sulfonamide Allergy Verified 06/29/22 21:08 Antibiotics) Review of Systems Status of ROS: Reports: unobtainable due to mental status [facility] Medical History (Updated 11/06/23 @ 17:12 by Nayan Sung MD) Obesity, unspecified ?E66.9 - Obesity, unspecified (ICD-10) Gastro-esophageal reflux disease without esophagitis ?K21.9 - Gastro-esophageal reflux disease without esophagitis (ICD-10) Vitamin deficiency, unspecified ?E56.9 - Vitamin deficiency, unspecified (ICD-10) Vitamin B12 deficiency anemia, unspecified ?D51.9 - Vitamin B12 deficiency anemia, unspecified (ICD-10) Hyperlipidemia, unspecified ?E78.5 - Hyperlipidemia, unspecified (ICD-10) Hypothyroidism, unspecified ?E03.9 - Hypothyroidism, unspecified (ICD-10) Calculus of kidney ?N20.0 - Calculus of kidney (ICD-10) Calculus of gallbladder with acute cholecystitis without obstruction ?K80.00 - Calculus of gallbladder with acute cholecystitis without obstruction (ICD-10) Sensorineural hearing loss, bilateral ?H90.3 - Sensorineural hearing loss, bilateral (ICD-10) Generalized anxiety disorder ?F41.1 - Generalized anxiety disorder (ICD-10) Other idiopathic peripheral autonomic neuropathy ?G90.09 - Other idiopathic peripheral autonomic neuropathy (ICD-10) Restless legs syndrome ?G25.81 - Restless legs syndrome (ICD-10) Immunodeficiency, unspecified ?D84.9 - Immunodeficiency, unspecified (ICD-10) Essential (primary) hypertension ?I10 - Essential (primary) hypertension (ICD-10) Type 2 diabetes mellitus without complications ?E11.9 - Type 2 diabetes mellitus without complications (ICD-10) ST elevation (STEMI) myocardial infarction involving other coronary artery of anterior wall ?I21.09 - ST elevation (STEMI) myocardial infarction involving other coronary artery of anterior wall (ICD-10) Presence of other specified devices ?Z97.8 - Presence of other specified devices (ICD-10) Personal history of (healed) traumatic fracture ?Z87.81 - Personal history of (healed) traumatic fracture (ICD-10) Urinary tract infection, site not specified ?N39.0 - Urinary tract infection, site not specified (ICD-10) Repeated falls ?R29.6 - Repeated falls (ICD-10) Dementia in other diseases classified elsewhere with behavioral disturbance ?F02.81 - Dementia in other diseases classified elsewhere with behavioral disturbance (ICD-10) Pain, unspecified ?R52 - Pain, unspecified (ICD-10) Unspecified urethral stricture, female ?N35.92 - Unspecified urethral stricture, female (ICD-10) Retention of urine, unspecified ?R33.9 - Retention of urine, unspecified (ICD-10) Syncope and collapse ?R55 - Syncope and collapse (ICD-10) Traumatic subdural hemorrhage with loss of consciousness of unspecified duration, subsequent encounter ?S06.5X9D - Traumatic subdural hemorrhage with loss of consciousness of unspecified duration, subsequent encounter (ICD-10) 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, unspecified ?E08.40 - 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, unspecified (ICD-10) Edema, unspecified ?R60.9 - Edema, unspecified (ICD-10) Constipation, unspecified ?K59.00 - Constipation, unspecified (ICD-10) Other specified symptoms and signs involving the digestive system and abdomen ?R19.8 - Other specified symptoms and signs involving the digestive system and abdomen (ICD-10) Alzheimer's disease with late onset ?G30.1 - Alzheimer's disease with late onset (ICD-10) ?F02.80 - Dementia in other diseases classified elsewhere without behavioral disturbance (ICD-10) Surgical History (Updated 06/29/22 @ 21:22 by Aixa Resendiz RN) Other specified postprocedural states ?Z98.890 - Other specified postprocedural states (ICD-10) Social History Smoking Status: Never smoker Do you use any of these nicotine containing products: None Second hand tobacco smoke exposure: No How often do you have a drink containing alcohol: never How often do you have six or more drinks on one occasion: Never AUDIT-C Alcohol total score: 0 Non-prescribed substance use: denies use service: No Exam Narrative: Exam Narrative: Pleasant. Talkative. NAD. Skin is warm and dry. Abdomen is soft. Appears to be nontender. Const: Documenting provider has reviewed patient's vital signs: yes Course Vital Signs Vital signs: Initial Vital Signs Temperature 98.3 F 11/06/23 16:26 Temperature Source Temporal Artery Scan 11/06/23 16:26 Pulse Rate 65 11/06/23 16:26 Respiratory Rate 18 11/06/23 16:26 Blood Pressure 151/76 H 11/06/23 16:26 Blood Pressure Mean 101 11/06/23 16:26 Pulse Oximetry 98 11/06/23 16:26 Oxygen Delivery Method Room Air 11/06/23 16:26 Vital Signs Temperature 98.3 F 11/06/23 16:26 Pulse Rate 65 11/06/23 16:26 Respiratory Rate 18 11/06/23 16:26 Blood Pressure 151/76 H 11/06/23 16:26 Pulse Oximetry 98 11/06/23 16:26 Oxygen Delivery Method Room Air 11/06/23 16:26 Temperature 98.3 F 11/06/23 16:26 Pulse Rate 65 11/06/23 16:26 Respiratory Rate 18 11/06/23 16:26 Blood Pressure 151/76 H 11/06/23 16:26 Pulse Oximetry 98 11/06/23 16:26 Oxygen Delivery Method Room Air 11/06/23 16:26 Medical Decision Making MDM Narrative Medical decision making narrative: Anticipating replacement of this Steen Will collect urinalysis but would wait for culture pending possibly singular organism and maybe recheck symptoms before treatment. See patient discharge plan Lab Data Labs: Lab Results 11/06/23 Range/Units 17:00 Urine Color Yellow (Yellow) Urine Appearance Cloudy A (Clear) Urine pH 5.5 (5.0-8.5) Ur Specific [place] 1.025 (1.000-1.030) Urine Protein Trace A (Negative) Urine Glucose (UA) Negative (Negative) Urine Ketones Negative (Negative) Urine Blood 2+ A (Negative) Urine Nitrite Positive A (Negative) Urine Bilirubin Negative (Negative) Urine Urobilinogen 0.2 (0.2-1.0) Ur Leukocyte Esterase 1+ A (Negative) Urine RBC 2-5 A (0-2) Urine WBC >100 A (0-5) Ur Squamous Epith Cells Few (None-Few) Urine Bacteria Moderate A (None) Discharge Plan Discharge Clinical Impression: Steen catheter problem Patient Disposition: Home w/ Parent or Adult Condition: Improved Additional Instructions: Change Steen as scheduled. We will call you pending results of urinalysis/urine culture if intervention necessary. Prescriptions: No Action acetaminophen [Acetaminophen Extra Strength] 500 mg tablet 1,000 mg PO Q6H PRN (Reason: pain) Patient Comments: Give 2 tablets every 6 hours for pain albuterol sulfate 90 mcg/actuation HFA aerosol inhaler 1 puff INHALATION Q4H PRN (Reason: bronchospasm) Patient Comments: 1 puff inhale by mouth every 4 hours as needed alum-mag hydroxide-simeth [Maalox Advanced] 200-200-20 mg/5 mL suspension 30 ml PO PRN (Reason: indigestion) Patient Comments: Give 30ml as needed TID aspirin [John Low Dose Aspirin] 81 mg tablet,delayed release (DR/EC) 81 mg PO .QHS Patient Comments: 1 tablet by mouth once a day atorvastatin 20 mg tablet 20 mg PO DAILY bisacodyl 10 mg suppository 10 mg FL PRN (Reason: constipation) Patient Comments: Give 1 suppository rectally as needed fluticasone propionate 50 mcg/actuation spray,suspension 2 spray INTRANASAL BID furosemide 20 mg tablet 10 mg PO DAILY gabapentin 100 mg capsule 200 mg PO TID galantamine 8 mg capsule,ext rel. pellets 24 hr 8 mg PO DAILY ascorbic acid (vitamin C) 1,000 mg tablet 1 g PO BID Patient Comments: 1 tablet by mouth twice a day cholecalciferol (vitamin D3) [Vitamin D3] 50 mcg (2,000 unit) tablet 2,000 unit PO DAILY Patient Comments: 1 tablet by mouth once a day sertraline 100 mg tablet 100 mg PO DAILY fluticasone propion-salmeterol 113-14 mcg/actuation aerosol powdr breath activated 1 inh INHALATION BID isosorbide mononitrate 60 mg tablet extended release 24 hr 60 mg PO DAILY lamotrigine 150 mg tablet 300 mg PO DAILY levothyroxine 88 mcg tablet 88 mcg PO DAILY melatonin 3 mg tablet 3 mg PO .qhs Patient Comments: 1 tablet by mouth at bedtime memantine 14 mg capsule,sprinkle,ER 24hr 14 mg PO DAILY methenamine hippurate 1 gram tablet 1 g PO BID polyethylene glycol 3350 [Miralax] 17 gram/dose powder 17 g PO DAILY Patient Comments: Mix 1 capful of Miralax in water or juice every morning. nitroglycerin 0.4 mg tablet, sublingual 0.4 mg sublingual Q5M PRN sennosides [senna] 8.6 mg tablet 8.6 mg PO DAILY Patient Comments: 1 tablet by mouth every morning Follow Up/Referrals: Provider,Not a Local [Primary Care Provider] - Stand Alone Forms: [facility] Info Instructions
[2023-11-06 16:26] VITALS: BP 151/76; PULSE 65; RESP 18; TEMP 36.8; O2SAT 98; BMI 26.6
[2023-11-06 17:20] LABS: Appearance Urine Cloudy (Clear); Bilirubin Urine Negative (Negative); Blood Urine 2+ (Negative); Color Urine Yellow (Yellow); Glucose Urine Negative (Negative); Ketones Urine Negative (Negative); Leukocyte Esterase Urine 1+ (Negative); Nitrite Urine Positive (Negative); Protein Urine Trace (Negative); Specific Gravity Urine 1.025 (1.000-1.030); Urobilinogen Urine 0.2 (0.2-1.0); pH Urine 5.5 (5.0-8.5)
[2023-11-06 17:33] LABS: Bacteria Urine Moderate; Squamous Epithelial Cell Urine Few (None-Few); WBC Urine >100 (0-5)
--- NOTE | 2023-11-10 16:34 | ED.NURSE ---
Per culture and sensativities the patient is allergic to multiple oral antibiotics that could treat this so Dr. Krishnamurthy suggested to have the patient return to ED and admit for IV ABO infusions. Alonso called Emilee to inform of what the ED provider suggested and will call the daughter Lisa and talk with about what want to do.
== END 2023-11-06 17:18 | disposition home or self-care (01) ==
LOC: ED 17:14
PROVIDERS: Emergency Provider Family Medicine
DX: T83.098A Other mechanical complication of other urinary catheter, initial encounter (principal); R33.9 Retention of urine, unspecified
CPT/HCPCS: 51702; 81001; 87086; 87186; 99283; 99284

== ENCOUNTER 2024-01-26 11:46 | Outpatient (REF) | payer MEDICARE, SELFPAY ==
[2024-01-26 12:40] LABS: Hemoglobin* 11.1 gm/dL (12.0-16.0)
[2024-01-26 12:52] LABS: Hemoglobin A1C* 5.6 % (0-5.6)
[2024-01-26 12:57] LABS: Chloride* 101 mmol/L (96-114); Sodium* 141 mmol/L (135-149)
[2024-01-26 12:58] LABS: Potassium* 3.3 mmol/L (3.6-5.1)
[2024-01-26 13:00] LABS: Creatinine* 1.7 mg/dL (0.5-1.5); Estimated Glomerular Filt Rate 30 ml/min
[2024-01-26 13:01] LABS: Anion Gap 11 mEq/L (7-15); Blood Urea Nitrogen* 49 mg/dL (7-30); Calcium* 10.2 mg/dL (8.4-10.6); Carbon Dioxide* 29 mmol/L (20-32); Glucose* 119 mg/dL (60-115)
== END 2024-01-26 11:47 | disposition home or self-care (01) ==
LOC: NPINS 11:46
PROVIDERS: Visit Provider Nurse Practitioner Gerontology
DX: E03.9 Hypothyroidism, unspecified (principal); E11.9 Type 2 diabetes mellitus without complications; D64.9 Anemia, unspecified
CPT/HCPCS: 80048; 83036; 84443; 85018

== ENCOUNTER 2024-03-15 14:00 | Outpatient (REF) | payer MEDICARE, SELFPAY ==
[2024-03-15 14:21] LABS: Appearance Urine Cloudy (Clear); Bilirubin Urine Negative (Negative); Blood Urine 3+ (Negative); Color Urine Yellow (Yellow); Glucose Urine Negative (Negative); Ketones Urine Trace (Negative); Leukocyte Esterase Urine 1+ (Negative); Nitrite Urine Positive (Negative); Protein Urine 2+ (Negative); Specific Gravity Urine >= 1.030 (1.000-1.030); Urobilinogen Urine 0.2 (0.2-1.0); pH Urine 5.5 (5.0-8.5)
[2024-03-15 14:39] LABS: RBC Urine 25-50 (0-2); WBC Urine 25-50 (0-5)
[2024-03-15 14:40] LABS: Amorphous Sediment Urine Moderate; Bacteria Urine Many; Calcium Oxalate Crystals Urine Few; Mucus Urine Moderate; Squamous Epithelial Cell Urine Many (None-Few)
== END 2024-03-15 14:01 | disposition home or self-care (01) ==
LOC: NPINS 14:00
PROVIDERS: Visit Provider Nurse Practitioner Gerontology
DX: Z91.81 History of falling (principal)
CPT/HCPCS: 81001; 81003; 87086; 87186

== ENCOUNTER 2024-03-18 14:34 | Emergency (ER) | payer MEDICARE, SELFPAY ==
[2024-03-18 14:40] VITALS: BP 123/74; PULSE 73; RESP 18; TEMP 36.1; O2SAT 97; BMI 25.4
--- NOTE | 2024-03-18 16:29 | CRLHL7_ITS ---
For Patients: As a result of the Century Cures Act, medical imaging exams and procedure reports are released immediately into your electronic medical record. You may view this report before your referring provider. If you have questions, please contact your health care provider. INDICATION: Trauma. TECHNIQUE: CT head without contrast. COMPARISON: None. FINDINGS: CSF spaces: Mild diffuse parenchymal volume loss. Brain parenchyma and extra-axial spaces: Moderate chronic white matter ischemic disease. The galo-white differentiation is normal. No sign of mass, hemorrhage, or midline shift. No extra-axial fluid collection. Skull base and calvarium: Left parieto-occipital scalp hematoma. The visualized paranasal sinuses and mastoid air cells demonstrate no acute or significant findings. The visualized orbits are grossly unremarkable. No skull fractures. IMPRESSION: Left parieto-occipital scalp hematoma. No acute intracranial abnormality. Mild diffuse parenchymal volume loss with moderate chronic white matter ischemic disease. Please note that all CT scans at this facility use dose modulation, iterative reconstruction, and/or weight-based dosing when appropriate to reduce radiation dose to as low as reasonably achievable. Dictated by Ladarius Ferrari MD @ 03/18/2024 6:10:08 PM (Electronically Signed)
--- NOTE | 2024-03-18 16:29 | CRLHL7_ITS ---
For Patients: As a result of the Cures Act, medical imaging exams and procedure reports are released immediately into your electronic medical record. You may view this report before your referring provider. If you have questions, please contact your health care provider. INDICATION: Fall. TECHNIQUE: CT cervical spine without contrast. COMPARISON: None. FINDINGS: Vertebrae: Alignment is normal. There are no fractures or suspicious bony lesions. Discs and facet joints: There are diffuse degenerative changes in the disc spaces and facet joints. Extraspinal findings: Paraspinous soft tissues are unremarkable. IMPRESSION: 1. No sign of acute injury. 2. Multilevel degenerative spondylosis. Please note that all CT scans at this facility use dose modulation, iterative reconstruction, and/or weight-based dosing when appropriate to reduce radiation dose to as low as reasonably achievable. Dictated by Ladarius Ferrari MD @ 03/18/2024 6:04:50 PM (Electronically Signed)
[2024-03-18 16:58] LABS: Basophils Percent Auto 0.2 % (0.0-3.0); Eosinophils Percent Auto 2.4 % (0.0-7.0); Hematocrit 35.9 % (33.0-51.0); Hemoglobin* 11.7 gm/dL (12.0-16.0); Immature Granulocytes Pct Auto 0.7 %; Lymphocytes Percent Auto 20.3 % (20-44); Mean Corpuscular HGB Conc 33 gm/dL (32-36); Mean Corpuscular Hemoglobin 30 pg (26-34); Mean Corpuscular Volume 93 fL (80-100); Monocytes Percent Auto 9.4 % (0.0-11.0); Platelet Count* 139 K/uL (140-440); RDW Coefficient of Variation % 13.5 % (11.5-15.5); Red Blood Count 3.85 m/uL (4.00-5.20); White Blood Count* 4.14 K/uL (4.50-11.00)
--- NOTE | 2024-03-18 17:01 | ED.GENADULT ---
HPI - General Adult General Date Seen: 03/18/24 Chief complaint: Fall/Minor Trauma Stated complaint: Fall, abrasion on back of scalp Time Seen by Provider: 03/18/24 16:19 Source: patient, RN notes reviewed and old records reviewed Mode of arrival: ambulatory Limitations: no limitations History of Present Illness HPI narrative: An 83-year-old here with her daughter after a fall at [facility]. Her daughter says she has been having frequent falls lately, no specific etiology has been found. She does not lose consciousness. Today she was walking with her walker, lost her balance and fell backwards striking her head on the ground. No loss of consciousness. She does not really complain of anything, daughter says that she has some underlying dementia. She does have a small wound on her head. Not anticoagulated. No recent fevers, chills, vomiting, diarrhea, black or bloody stools, urinary symptoms. Apparently was diagnosed with a UTI earlier today and antibiotics have been ordered but not yet started. Related Data Home Medications ?Medication ?Instructions ?Recorded ?Confirmed acetaminophen 500 mg tablet 1,000 mg PO Q6H PRN pain 06/29/22 06/29/22 (Acetaminophen Extra Strength) albuterol sulfate 90 mcg/actuation 1 puff inhalation Q4H PRN 06/29/22 06/29/22 aerosol inhaler bronchospasm aluminum-mag hydroxide-simethicone 30 ml PO PRN indigestion 06/29/22 200 mg-200 mg-20 mg/5 mL oral susp (Maalox Advanced) ascorbic acid (vitamin C) 1,000 mg 1 g PO BID 06/29/22 06/29/22 tablet aspirin 81 mg tablet,delayed 81 mg PO .QHS 06/29/22 06/29/22 release (John Low Dose Aspirin) atorvastatin 20 mg tablet 20 mg PO DAILY 06/29/22 06/29/22 bisacodyl 10 mg rectal suppository 10 mg HI PRN constipation 06/29/22 cholecalciferol (vitamin D3) 50 2,000 unit PO DAILY 06/29/22 06/29/22 mcg (2,000 unit) tablet (Vitamin D3) fluticasone 113 mcg-salmeterol 14 1 inh inhalation BID 06/29/22 06/29/22 mcg/actuation breath activated powdr fluticasone propionate 50 2 spray intranasal BID 06/29/22 06/29/22 mcg/actuation nasal spray,suspension furosemide 20 mg tablet 10 mg PO DAILY 06/29/22 06/29/22 gabapentin 100 mg capsule 200 mg PO TID 06/29/22 06/29/22 galantamine 8 mg 24 hr 8 mg PO DAILY 06/29/22 06/29/22 capsule,extended release isosorbide mononitrate 60 mg 60 mg PO DAILY 06/29/22 06/29/22 tablet,extended release 24 hr lamotrigine 150 mg tablet 300 mg PO DAILY 06/29/22 06/29/22 levothyroxine 88 mcg tablet 88 mcg PO DAILY 06/29/22 06/29/22 melatonin 3 mg tablet 3 mg PO .qhs 06/29/22 06/29/22 memantine 14 mg capsule 14 mg PO DAILY 06/29/22 06/29/22 sprinkle,extended release 24hr methenamine hippurate 1 gram tablet 1 g PO BID 06/29/22 06/29/22 nitroglycerin 0.4 mg sublingual 0.4 mg sublingual Q5M PRN 06/29/22 06/29/22 tablet polyethylene glycol 3350 17 17 g PO DAILY 06/29/22 06/29/22 gram/dose oral powder (Miralax) sennosides 8.6 mg tablet (senna) 8.6 mg PO DAILY 06/29/22 06/29/22 sertraline 100 mg tablet 100 mg PO DAILY 06/29/22 06/29/22 Allergies Allergy/AdvReac Type Severity Reaction Status Date / Time cefdinir Allergy Verified 06/29/22 21:08 cephalexin Allergy Verified 06/29/22 21:08 nitrofurantoin Allergy Verified 06/29/22 21:08 Sulfa (Sulfonamide Allergy Verified 06/29/22 21:08 Antibiotics) Review of Systems Status of ROS: Reports: unobtainable due to medical condition PFSH [facility] Medical History Obesity, unspecified ?E66.9 - Obesity, unspecified (ICD-10) Gastro-esophageal reflux disease without esophagitis ?K21.9 - Gastro-esophageal reflux disease without esophagitis (ICD-10) Vitamin deficiency, unspecified ?E56.9 - Vitamin deficiency, unspecified (ICD-10) Vitamin B12 deficiency anemia, unspecified ?D51.9 - Vitamin B12 deficiency anemia, unspecified (ICD-10) Hyperlipidemia, unspecified ?E78.5 - Hyperlipidemia, unspecified (ICD-10) Hypothyroidism, unspecified ?E03.9 - Hypothyroidism, unspecified (ICD-10) Calculus of kidney ?N20.0 - Calculus of kidney (ICD-10) Calculus of gallbladder with acute cholecystitis without obstruction ?K80.00 - Calculus of gallbladder with acute cholecystitis without obstruction (ICD-10) Sensorineural hearing loss, bilateral ?H90.3 - Sensorineural hearing loss, bilateral (ICD-10) Generalized anxiety disorder ?F41.1 - Generalized anxiety disorder (ICD-10) Other idiopathic peripheral autonomic neuropathy ?G90.09 - Other idiopathic peripheral autonomic neuropathy (ICD-10) Restless legs syndrome ?G25.81 - Restless legs syndrome (ICD-10) Immunodeficiency, unspecified ?D84.9 - Immunodeficiency, unspecified (ICD-10) Essential (primary) hypertension ?I10 - Essential (primary) hypertension (ICD-10) Type 2 diabetes mellitus without complications ?E11.9 - Type 2 diabetes mellitus without complications (ICD-10) ST elevation (STEMI) myocardial infarction involving other coronary artery of anterior wall ?I21.09 - ST elevation (STEMI) myocardial infarction involving other coronary artery of anterior wall (ICD-10) Presence of other specified devices ?Z97.8 - Presence of other specified devices (ICD-10) Personal history of (healed) traumatic fracture ?Z87.81 - Personal history of (healed) traumatic fracture (ICD-10) Urinary tract infection, site not specified ?N39.0 - Urinary tract infection, site not specified (ICD-10) Repeated falls ?R29.6 - Repeated falls (ICD-10) Dementia in other diseases classified elsewhere with behavioral disturbance ?F02.81 - Dementia in other diseases classified elsewhere with behavioral disturbance (ICD-10) Pain, unspecified ?R52 - Pain, unspecified (ICD-10) Unspecified urethral stricture, female ?N35.92 - Unspecified urethral stricture, female (ICD-10) Retention of urine, unspecified ?R33.9 - Retention of urine, unspecified (ICD-10) Syncope and collapse ?R55 - Syncope and collapse (ICD-10) Traumatic subdural hemorrhage with loss of consciousness of unspecified duration, subsequent encounter ?S06.5X9D - Traumatic subdural hemorrhage with loss of consciousness of unspecified duration, subsequent encounter (ICD-10) 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, unspecified ?E08.40 - 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, unspecified (ICD-10) Edema, unspecified ?R60.9 - Edema, unspecified (ICD-10) Constipation, unspecified ?K59.00 - Constipation, unspecified (ICD-10) Other specified symptoms and signs involving the digestive system and abdomen ?R19.8 - Other specified symptoms and signs involving the digestive system and abdomen (ICD-10) Alzheimer's disease with late onset ?G30.1 - Alzheimer's disease with late onset (ICD-10) ?F02.80 - Dementia in other diseases classified elsewhere without behavioral disturbance (ICD-10) Surgical History Other specified postprocedural states ?Z98.890 - Other specified postprocedural states (ICD-10) Social History Smoking Status: Never smoker Do you use any of these nicotine containing products: None Second hand tobacco smoke exposure: No How often do you have a drink containing alcohol: never How often do you have six or more drinks on one occasion: Never AUDIT-C Alcohol total score: 0 Non-prescribed substance use: denies use service: No Exam Narrative: Exam Narrative: Vital signs as noted above. In general, an alert, well-appearing patient. She is pleasant, conversant, confused. Head: Normocephalic. She has a small hematoma on the posterior scalp with an associated 1 cm laceration. Little bit of venous bleeding is noted. Eyes: Pupils are equal reactive. Extraocular movements are full. Conjunctivae are normal. ENT: Mucous membranes are moist. No facial trauma. Neck: Supple without lymphadenopathy. Nontender to palpation. Heart: Regular rate and rhythm. No murmur or rub. Lungs: Clear bilaterally. No increased work of breathing, crackles or wheezes. Back: No abrasions or contusions, nontender to palpation. Abdomen: Soft and nontender. No organomegaly. Extremities: Well perfused. No edema. No calf tenderness. Pulses intact. Neurologic: Patient is alert and oriented to person and place. Speech is fluent. Face is symmetric. Moves all extremities equally. Affect: Normal. Skin: Warm and dry. Well perfused. Const: Vital Signs, click to edit/add: Vital Signs - 24 hr 03/18/24 14:40 03/18/24 17:38 Temperature 97.0 F L Pulse Rate [Right Pulse Oximeter] 73 80 Respiratory Rate 18 16 Blood Pressure [Ri ght Upper Arm] 123/74 148/85 H Pulse Oximetry 97 96 Oxygen Delivery Me thod Room Air Room Air Documenting provider has reviewed patient's vital signs: yes Course Course ED Course: Following initial evaluation, I ordered CT of the head and neck. She apparently was diagnosed with the UTI earlier today, they plan to start doxycycline but have not yet. Vital signs are stable, I think it is reasonable to check a few basic labs and make sure that there was not anything more acute going on today but it does sound like she has been having falls in general. Procedure note: The scalp wound was anesthetized and cleaned, she has a superficial laceration but a little bit continued oozing so I recommended a couple of stitches to that area. I supervised PA student in that procedure. Two simple interrupted superficial sutures were placed using 4-0 nylon. She tolerated this well, no immediate complication. Recommend suture removal in 7-10 days. Her labs are reassuring, white blood cell count is slightly depressed at 4.2, hemoglobin of 11.7. Electrolytes are normal, glucose 100, CRP is less some 0.5 and lactate is 1. She is not febrile or tachycardic, labs are reassuring and I do not think that she is septic. She is having frequent falls, unclear etiology, no focal neurologic changes here. She has underlying dementia and this is stable. CT of the head by my review was negative for acute findings such as hemorrhage. Final radiology review report is negative for both CT of the cervical spine and CT of the head in terms of acute findings. Degenerative changes in the spine. We gave a dose of doxycycline here, this is what she is apparently being started on at the senior care. She is feeling well, no other complaints. Daughter is comfortable with discharge home. Vital Signs Vital signs: Initial Vital Signs Temperature 97.0 F L 03/18/24 14:40 Temperature Source Temporal Artery Scan 03/18/24 14:40 Pulse Rate 73 03/18/24 14:40 Pulse Rhythm Regular 03/18/24 14:40 Pulse Strength 3+ Normal 03/18/24 14:40 Respiratory Rate 18 03/18/24 14:40 Blood Pressure 123/74 03/18/24 14:40 Blood Pressure Mean 90 03/18/24 14:40 Blood Pressure Position Sitting 03/18/24 14:40 Pulse Oximetry 97 03/18/24 14:40 Oxygen Delivery Method Room Air 03/18/24 14:40 Vital Signs Temperature 97.0 F L 03/18/24 14:40 Pulse Rate 73 03/18/24 14:40 Respiratory Rate 18 03/18/24 14:40 Blood Pressure 123/74 03/18/24 14:40 Pulse Oximetry 97 03/18/24 14:40 Oxygen Delivery Method Room Air 03/18/24 14:40 Temperature 97.0 F L 03/18/24 14:40 Pulse Rate 80 03/18/24 17:38 Respiratory Rate 16 03/18/24 17:38 Blood Pressure 148/85 H 03/18/24 17:38 Pulse Oximetry 96 03/18/24 17:38 Oxygen Delivery Method Room Air 03/18/24 17:38 Medications Administered Medications: Discontinued Medications Generic Name Dose Route Start Last Admin Trade Name Freq PRN Reason Stop Dose Admin Doxycycline Hyclate 100 mg 03/18/24 18:23 03/18/24 19:06 Doxycycline Hyclate 100 Mg PO 03/18/24 18:24 100 mg ONCE ONE Administration Medical Decision Making Lab Data Labs: Lab Results 03/18/24 Range/Units 16:48 WBC 4.14 L (4.50-11.00) K/uL RBC 3.85 L (4.00-5.20) m/uL Hgb 11.7 L (12.0-16.0) gm/dL Hct 35.9 (33.0-51.0) % MCV 93 (80-100) fL MCH 30 (26-34) pg MCHC 33 (32-36) gm/dL RDW Coeff of Latoya 13.5 (11.5-15.5) % Plt Count 139 L (140-440) K/uL Neut % (Auto) 67.0 (42.0-72.0) % Lymph % (Auto) 20.3 (20-44) % [place] % (Auto) 9.4 (0.0-11.0) % Eos % (Auto) 2.4 (0.0-7.0) % Baso % (Auto) 0.2 (0.0-3.0) % Neut # (Auto) 2.80 (1.7-7.0) K/uL Lymph # (Auto) 0.80 L (0.90-2.90) K/uL [place] # (Auto) 0.40 (0.00-0.90) K/UL Eos # (Auto) 0.10 (0.00-0.50) K/uL Baso # (Auto) 0.00 (0.00-0.30) K/uL Abs Immat Gran (auto) 0.00 (0.00-0.30) K/uL Imm/Tot Granulo (auto) 0.7 % Sodium 137 (135-149) mmol/L Potassium 4.0 (3.6-5.1) mmol/L Chloride 105 (96-114) mmol/L Carbon Dioxide 25 (20-32) mmol/L Anion Gap 7 (7-15) mEq/L BUN 13 (7-30) mg/dL Creatinine 0.6 (0.5-1.5) mg/dL Estimated Creat Clear 45.33 Estimated GFR 90 ml/min Glucose 100 (60-115) mg/dL Lactate 1.0 (0.5-1.9) mmol/L Calcium 8.9 (8.4-10.6) mg/dL C-Reactive Protein < 0.5 L (0.5-1.0) mg/dL Discharge Plan Discharge Clinical Impression: UTI (urinary tract infection), Laceration of scalp Patient Disposition: Home, Self-Care Condition: Improved Instructions: Laceration (DC) Additional Instructions: Suture removal in 7-10 days. We gave 1 dose of antibiotic here, continue antibiotics for urinary tract infection as previously prescribed. Return for confusion, vomiting, severe headache or other worsening, or signs of infection. CT scan of the head and neck here today were unremarkable. Prescriptions: No Action acetaminophen [Acetaminophen Extra Strength] 500 mg tablet 1,000 mg PO Q6H PRN (Reason: pain) Patient Comments: Give 2 tablets every 6 hours for pain albuterol sulfate 90 mcg/actuation HFA aerosol inhaler 1 puff INHALATION Q4H PRN (Reason: bronchospasm) Patient Comments: 1 puff inhale by mouth every 4 hours as needed alum-mag hydroxide-simeth [Maalox Advanced] 200-200-20 mg/5 mL suspension 30 ml PO PRN (Reason: indigestion) Patient Comments: Give 30ml as needed TID aspirin [John Low Dose Aspirin] 81 mg tablet,delayed release (DR/EC) 81 mg PO .QHS Patient Comments: 1 tablet by mouth once a day atorvastatin 20 mg tablet 20 mg PO DAILY bisacodyl 10 mg suppository 10 mg HI PRN (Reason: constipation) Patient Comments: Give 1 suppository rectally as needed fluticasone propionate 50 mcg/actuation spray,suspension 2 spray INTRANASAL BID furosemide 20 mg tablet 10 mg PO DAILY gabapentin 100 mg capsule 200 mg PO TID galantamine 8 mg capsule,ext rel. pellets 24 hr 8 mg PO DAILY ascorbic acid (vitamin C) 1,000 mg tablet 1 g PO BID Patient Comments: 1 tablet by mouth twice a day cholecalciferol (vitamin D3) [Vitamin D3] 50 mcg (2,000 unit) tablet 2,000 unit PO DAILY Patient Comments: 1 tablet by mouth once a day sertraline 100 mg tablet 100 mg PO DAILY fluticasone propion-salmeterol 113-14 mcg/actuation aerosol powdr breath activated 1 inh INHALATION BID isosorbide mononitrate 60 mg tablet extended release 24 hr 60 mg PO DAILY lamotrigine 150 mg tablet 300 mg PO DAILY levothyroxine 88 mcg tablet 88 mcg PO DAILY melatonin 3 mg tablet 3 mg PO .qhs Patient Comments: 1 tablet by mouth at bedtime memantine 14 mg capsule,sprinkle,ER 24hr 14 mg PO DAILY methenamine hippurate 1 gram tablet 1 g PO BID polyethylene glycol 3350 [Miralax] 17 gram/dose powder 17 g PO DAILY Patient Comments: Mix 1 capful of Miralax in water or juice every morning. nitroglycerin 0.4 mg tablet, sublingual 0.4 mg sublingual Q5M PRN sennosides [senna] 8.6 mg tablet 8.6 mg PO DAILY Patient Comments: 1 tablet by mouth every morning Follow Up/Referrals: Provider,Not a Local [Primary Care Provider] - Stand Alone Forms: [facility] Info Instructions
[2024-03-18 17:16] LABS: Chloride* 105 mmol/L (96-114); Sodium* 137 mmol/L (135-149)
[2024-03-18 17:18] LABS: Creatinine* 0.6 mg/dL (0.5-1.5); Est. Creatinine Clearance* 45.33; Estimated Glomerular Filt Rate 90 ml/min
[2024-03-18 17:19] LABS: Anion Gap 7 mEq/L (7-15); Blood Urea Nitrogen* 13 mg/dL (7-30); Carbon Dioxide* 25 mmol/L (20-32); Glucose* 100 mg/dL (60-115)
[2024-03-18 17:20] LABS: Calcium* 8.9 mg/dL (8.4-10.6)
[2024-03-18 17:21] LABS: Slide Review Reflex No
[2024-03-18 17:23] LABS: C Reactive Protein* < 0.5 mg/dL (0.5-1.0)
[2024-03-18 17:38] VITALS: BP 148/85; PULSE 80; RESP 16; O2SAT 96
[2024-03-18] MEDS: DOXYCYCLINE HYCLATE 100 MG PO (19:06)
== END 2024-03-18 19:11 | disposition home or self-care (01) ==
PROVIDERS: Emergency Provider Emergency Medicine
DX: N39.0 Urinary tract infection, site not specified (principal); S01.01XA Laceration without foreign body of scalp, initial encounter; W19.XXXA Unspecified fall, initial encounter
CPT/HCPCS: 12001; 36415; 70450; 72125; 80048; 83605; 85025; 86140; 99283; 99284; 99285; A9270

== ENCOUNTER 2024-07-09 13:45 | Outpatient (CLI) | payer MEDICARE, SELFPAY | END 2024-07-09 13:46 | disposition home or self-care (01) | LOC: AMB 07-12 02:34 | PROVIDERS: Visit Provider Emergency Medicine | DX: R07.89 Other chest pain (principal) | CPT/HCPCS: A0425; A0427 ==

== ENCOUNTER 2024-07-09 14:08 | Emergency (ER) | payer MEDICARE, SELFPAY ==
[2024-07-09] VITALS (7 sets, daily range): BP systolic 115–132; BP diastolic 58–68; PULSE 65–70; RESP 12–16; TEMP 37; O2SAT 95–99; BMI 37.6
--- NOTE | 2024-07-09 14:36 | ED_ITS ---
HPI - Chest Pain General Chief Complaint: Chest Pain Stated Complaint: chest pain Time Seen by Provider: 07/09/24 14:20 History of Present Illness HPI narrative: This 84-year-old female comes in from a memory care facility and is reporting chest pain. She is a very poor historian with dementia but is rather pleasant and does not appear to be in much distress. She does state that the pain is been there for quite a while and it is rather mild. She arrives with normal vital signs. Related Data Home Medications ?Medication ?Instructions ?Recorded ?Confirmed acetaminophen 500 mg tablet 1,000 mg PO Q6H PRN pain 06/29/22 06/29/22 (Acetaminophen Extra Strength) albuterol sulfate 90 mcg/actuation 1 puff inhalation Q4H PRN 06/29/22 06/29/22 aerosol inhaler bronchospasm aluminum-mag hydroxide-simethicone 30 ml PO PRN indigestion 06/29/22 200 mg-200 mg-20 mg/5 mL oral susp (Maalox Advanced) ascorbic acid (vitamin C) 1,000 mg 1 g PO BID 06/29/22 06/29/22 tablet aspirin 81 mg tablet,delayed 81 mg PO .QHS 06/29/22 06/29/22 release (John Low Dose Aspirin) atorvastatin 20 mg tablet 20 mg PO DAILY 06/29/22 06/29/22 bisacodyl 10 mg rectal suppository 10 mg SD PRN constipation 06/29/22 cholecalciferol (vitamin D3) 50 2,000 unit PO DAILY 06/29/22 06/29/22 mcg (2,000 unit) tablet (Vitamin D3) fluticasone 113 mcg-salmeterol 14 1 inh inhalation BID 06/29/22 06/29/22 mcg/actuation breath activated powdr fluticasone propionate 50 2 spray intranasal BID 06/29/22 06/29/22 mcg/actuation nasal spray,suspension furosemide 20 mg tablet 10 mg PO DAILY 06/29/22 06/29/22 gabapentin 100 mg capsule 200 mg PO TID 06/29/22 06/29/22 galantamine 8 mg 24 hr 8 mg PO DAILY 06/29/22 06/29/22 capsule,extended release isosorbide mononitrate 60 mg 60 mg PO DAILY 06/29/22 06/29/22 tablet,extended release 24 hr lamotrigine 150 mg tablet 300 mg PO DAILY 06/29/22 06/29/22 levothyroxine 88 mcg tablet 88 mcg PO DAILY 06/29/22 06/29/22 melatonin 3 mg tablet 3 mg PO .qhs 06/29/22 06/29/22 memantine 14 mg capsule 14 mg PO DAILY 06/29/22 06/29/22 sprinkle,extended release 24hr methenamine hippurate 1 gram tablet 1 g PO BID 06/29/22 06/29/22 nitroglycerin 0.4 mg sublingual 0.4 mg sublingual Q5M PRN 06/29/22 06/29/22 tablet polyethylene glycol 3350 17 17 g PO DAILY 06/29/22 06/29/22 gram/dose oral powder (Miralax) sennosides 8.6 mg tablet (senna) 8.6 mg PO DAILY 06/29/22 06/29/22 sertraline 100 mg tablet 100 mg PO DAILY 06/29/22 06/29/22 Allergies Allergy/AdvReac Type Severity Reaction Status Date / Time cefdinir Allergy Verified 06/29/22 21:08 cephalexin Allergy Verified 06/29/22 21:08 nitrofurantoin Allergy Verified 06/29/22 21:08 Sulfa (Sulfonamide Allergy Verified 06/29/22 21:08 Antibiotics) Review of Systems Status of ROS Reports: unobtainable due to mental status [facility] Medical History Obesity, unspecified ?E66.9 - Obesity, unspecified (ICD-10) Gastro-esophageal reflux disease without esophagitis ?K21.9 - Gastro-esophageal reflux disease without esophagitis (ICD-10) Vitamin deficiency, unspecified ?E56.9 - Vitamin deficiency, unspecified (ICD-10) Vitamin B12 deficiency anemia, unspecified ?D51.9 - Vitamin B12 deficiency anemia, unspecified (ICD-10) Hyperlipidemia, unspecified ?E78.5 - Hyperlipidemia, unspecified (ICD-10) Hypothyroidism, unspecified ?E03.9 - Hypothyroidism, unspecified (ICD-10) Calculus of kidney ?N20.0 - Calculus of kidney (ICD-10) Calculus of gallbladder with acute cholecystitis without obstruction ?K80.00 - Calculus of gallbladder with acute cholecystitis without obstruction (ICD-10) Sensorineural hearing loss, bilateral ?H90.3 - Sensorineural hearing loss, bilateral (ICD-10) Generalized anxiety disorder ?F41.1 - Generalized anxiety disorder (ICD-10) Other idiopathic peripheral autonomic neuropathy ?G90.09 - Other idiopathic peripheral autonomic neuropathy (ICD-10) Restless legs syndrome ?G25.81 - Restless legs syndrome (ICD-10) Immunodeficiency, unspecified ?D84.9 - Immunodeficiency, unspecified (ICD-10) Essential (primary) hypertension ?I10 - Essential (primary) hypertension (ICD-10) Type 2 diabetes mellitus without complications ?E11.9 - Type 2 diabetes mellitus without complications (ICD-10) ST elevation (STEMI) myocardial infarction involving other coronary artery of anterior wall ?I21.09 - ST elevation (STEMI) myocardial infarction involving other coronary artery of anterior wall (ICD-10) Presence of other specified devices ?Z97.8 - Presence of other specified devices (ICD-10) Personal history of (healed) traumatic fracture ?Z87.81 - Personal history of (healed) traumatic fracture (ICD-10) Urinary tract infection, site not specified ?N39.0 - Urinary tract infection, site not specified (ICD-10) Repeated falls ?R29.6 - Repeated falls (ICD-10) Dementia in other diseases classified elsewhere with behavioral disturbance ?F02.81 - Dementia in other diseases classified elsewhere with behavioral disturbance (ICD-10) Pain, unspecified ?R52 - Pain, unspecified (ICD-10) Unspecified urethral stricture, female ?N35.92 - Unspecified urethral stricture, female (ICD-10) Retention of urine, unspecified ?R33.9 - Retention of urine, unspecified (ICD-10) Syncope and collapse ?R55 - Syncope and collapse (ICD-10) Traumatic subdural hemorrhage with loss of consciousness of unspecified duration, subsequent encounter ?S06.5X9D - Traumatic subdural hemorrhage with loss of consciousness of unspecified duration, subsequent encounter (ICD-10) 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, unspecified ?E08.40 - 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, unspecified (ICD-10) Edema, unspecified ?R60.9 - Edema, unspecified (ICD-10) Constipation, unspecified ?K59.00 - Constipation, unspecified (ICD-10) Other specified symptoms and signs involving the digestive system and abdomen ?R19.8 - Other specified symptoms and signs involving the digestive system and abdomen (ICD-10) Alzheimer's disease with late onset ?G30.1 - Alzheimer's disease with late onset (ICD-10) ?F02.80 - Dementia in other diseases classified elsewhere without behavioral disturbance (ICD-10) Surgical History Other specified postprocedural states ?Z98.890 - Other specified postprocedural states (ICD-10) Social History Smoking Status: Never smoker Do you use any of these nicotine containing products: None Second hand tobacco smoke exposure: No How often do you have a drink containing alcohol: never How often do you have six or more drinks on one occasion: Never AUDIT-C Alcohol total score: 0 Non-prescribed substance use: denies use service: No Exam Narrative Exam Narrative: Constitutional: Well-developed, well-nourished, no acute distress. HEENT: Normocephalic, atraumatic. Neck: Normal range of motion. Nontender. Supple. Heart: Regular. No murmurs. Normal rate. Intact distal pulses. Lungs: Clear to auscultation. No chest discomfort. No wheezes, rhonchi, or rale s. Abdomen: Normal bowel sounds. Nontender. No rebound tenderness. Genitalia: Deferred. Back: No midline tenderness. Normal range of motion. Extremities: Normal range of motion. No injury. No pedal edema. Skin: Intact. No rash. Warm. No erythema or pallor. Neurologic: No altered sensation. No weakness. Alert and oriented. Psychiatric: No suicidality. No anxiety or depression. No insomnia. Nursing notes and vitals signs are reviewed. Const Vital Signs, click to edit/add: Vital Signs - 24 hr 07/09/24 14:11 Temperature 98.6 F Pulse Rate [Pulse Oximeter] 66 Respiratory Rate 14 Blood Pressure [Left Upper Arm] 132/62 Pulse Oximetry 96 Oxygen Delivery Method Room Air Course Vital Signs Vital signs: Initial Vital Signs Temperature 98.6 F 07/09/24 14:11 Temperature Source Temporal Artery Scan 07/09/24 14:11 Pulse Rate 66 07/09/24 14:11 Pulse Rhythm Regular 07/09/24 14:11 Respiratory Rate 14 07/09/24 14:11 Blood Pressure 132/62 07/09/24 14:11 Blood Pressure Mean 85 07/09/24 14:11 Blood Pressure Position Supine 07/09/24 14:11 Pulse Oximetry 96 07/09/24 14:11 Oxygen Delivery Method Room Air 07/09/24 14:11 Vital Signs Temperature 98.6 F 07/09/24 14:11 Pulse Rate 66 07/09/24 14:11 Respiratory Rate 14 07/09/24 14:11 Blood Pressure 132/62 07/09/24 14:11 Pulse Oximetry 96 07/09/24 14:11 Oxygen Delivery Method Room Air 07/09/24 14:11 Temperature 98.6 F 07/09/24 14:11 Pulse Rate 66 07/09/24 14:11 Respiratory Rate 14 07/09/24 14:11 Blood Pressure 132/62 07/09/24 14:11 Pulse Oximetry 96 07/09/24 14:11 Oxygen Delivery Method Room Air 07/09/24 14:11 MDM - Chest Pain MDM Narrative Medical decision making narrative: This patient is brought in because of report of chest pain. She arrives with normal vital signs and appears to be in no acute distress. She is a rather poor historian because of dementia. She states that she has had this pain since the 1st or the 2nd of the year, what ever that may refer to. Anyway it seems that this is not a new thing for her and her discomfort is rather mild. EKG today she along with labs and vital signs are all reassuring. Her troponin returns in normal range. She is okay to be discharged back to her memory care facility. Lab Data Labs: Lab Results 07/09/24 07/09/24 07/09/24 Range/Units 14:35 14:36 15:10 WBC 4.02 L (4.50-11.00) K/uL RBC 3.79 L (4.00-5.20) m/uL Hgb 11.3 L (12.0-16.0) gm/dL Hct 35.2 (33.0-51.0) % MCV 93 (80-100) fL MCH 30 (26-34) pg MCHC 32 (32-36) gm/dL RDW Coeff of Latoya 13.1 (11.5-15.5) % Plt Count 130 L (140-440) K/uL Neut % (Auto) 68.5 (42.0-72.0) % Lymph % (Auto) 18.7 L (20-44) % [place] % (Auto) 9.7 (0.0-11.0) % Eos % (Auto) 2.2 (0.0-7.0) % Baso % (Auto) 0.2 (0.0-3.0) % Neut # (Auto) 2.80 (1.7-7.0) K/uL Lymph # (Auto) 0.80 L (0.90-2.90) K/uL [place] # (Auto) 0.40 (0.00-0.90) K/UL Eos # (Auto) 0.10 (0.00-0.50) K/uL Baso # (Auto) 0.00 (0.00-0.30) K/uL Abs Immat Gran (auto) 0.00 (0.00-0.30) K/uL Imm/Tot Granulo (auto) 0.7 % Sodium 135 (135-149) mmol/L Potassium 4.1 (3.6-5.1) mmol/L Chloride 104 (96-114) mmol/L Carbon Dioxide 24 (20-32) mmol/L Anion Gap 7 (7-15) mEq/L BUN 15 (7-30) mg/dL Creatinine 0.7 (0.5-1.5) mg/dL Estimated Creat Clear 41.45 Estimated GFR 86 ml/min Glucose 103 (60-115) mg/dL Calcium 9.0 (8.4-10.6) mg/dL POC Troponin I 0.01 (0.01-0.04) ng/ml ECG Data Attestation: I personally reviewed and interpreted this ECG as follows: Interpretation: Normal sinus rhythm. Rate is 66 beats per minute. There are no specific ST or T-wave abnormalities. Discharge Plan Discharge Clinical Impression: Atypical chest pain Patient Disposition: Home w/ Parent or Adult Condition: Stable Additional Instructions: Continue current plans. Follow up with MD for ongoing management. Prescriptions: No Action acetaminophen [Acetaminophen Extra Strength] 500 mg tablet 1,000 mg PO Q6H PRN (Reason: pain) Patient Comments: Give 2 tablets every 6 hours for pain albuterol sulfate 90 mcg/actuation HFA aerosol inhaler 1 puff INHALATION Q4H PRN (Reason: bronchospasm) Patient Comments: 1 puff inhale by mouth every 4 hours as needed alum-mag hydroxide-simeth [Maalox Advanced] 200-200-20 mg/5 mL suspension 30 ml PO PRN (Reason: indigestion) Patient Comments: Give 30ml as needed TID aspirin [John Low Dose Aspirin] 81 mg tablet,delayed release (DR/EC) 81 mg PO .QHS Patient Comments: 1 tablet by mouth once a day atorvastatin 20 mg tablet 20 mg PO DAILY bisacodyl 10 mg suppository 10 mg SD PRN (Reason: constipation) Patient Comments: Give 1 suppository rectally as needed fluticasone propionate 50 mcg/actuation spray,suspension 2 spray INTRANASAL BID furosemide 20 mg tablet 10 mg PO DAILY gabapentin 100 mg capsule 200 mg PO TID galantamine 8 mg capsule,ext rel. pellets 24 hr 8 mg PO DAILY ascorbic acid (vitamin C) 1,000 mg tablet 1 g PO BID Patient Comments: 1 tablet by mouth twice a day cholecalciferol (vitamin D3) [Vitamin D3] 50 mcg (2,000 unit) tablet 2,000 unit PO DAILY Patient Comments: 1 tablet by mouth once a day sertraline 100 mg tablet 100 mg PO DAILY fluticasone propion-salmeterol 113-14 mcg/actuation aerosol powdr breath activated 1 inh INHALATION BID isosorbide mononitrate 60 mg tablet extended release 24 hr 60 mg PO DAILY lamotrigine 150 mg tablet 300 mg PO DAILY levothyroxine 88 mcg tablet 88 mcg PO DAILY melatonin 3 mg tablet 3 mg PO .qhs Patient Comments: 1 tablet by mouth at bedtime memantine 14 mg capsule,sprinkle,ER 24hr 14 mg PO DAILY methenamine hippurate 1 gram tablet 1 g PO BID polyethylene glycol 3350 [Miralax] 17 gram/dose powder 17 g PO DAILY Patient Comments: Mix 1 capful of Miralax in water or juice every morning. nitroglycerin 0.4 mg tablet, sublingual 0.4 mg sublingual Q5M PRN sennosides [senna] 8.6 mg tablet 8.6 mg PO DAILY Patient Comments: 1 tablet by mouth every morning Follow Up/Referrals: Provider,Not a Local [Primary Care Provider] - Stand Alone Forms: [employer] Info Instructions
[2024-07-09 15:20] LABS: Troponin, Point-of-Care* 0.01 ng/ml (0.01-0.04)
[2024-07-09 15:30] LABS: Chloride* 104 mmol/L (96-114); Potassium* 4.1 mmol/L (3.6-5.1); Sodium* 135 mmol/L (135-149)
[2024-07-09 15:32] LABS: Basophils Percent Auto 0.2 % (0.0-3.0); Eosinophils Percent Auto 2.2 % (0.0-7.0); Hematocrit 35.2 % (33.0-51.0); Hemoglobin* 11.3 gm/dL (12.0-16.0); Immature Granulocytes Pct Auto 0.7 %; Lymphocytes Percent Auto 18.7 % (20-44); Mean Corpuscular HGB Conc 32 gm/dL (32-36); Mean Corpuscular Hemoglobin 30 pg (26-34); Mean Corpuscular Volume 93 fL (80-100); Monocytes Percent Auto 9.7 % (0.0-11.0); Neutrophils Percent Auto 68.5 % (42.0-72.0); Platelet Count* 130 K/uL (140-440); RDW Coefficient of Variation % 13.1 % (11.5-15.5); Red Blood Count 3.79 m/uL (4.00-5.20); White Blood Count* 4.02 K/uL (4.50-11.00)
[2024-07-09 15:33] LABS: Blood Urea Nitrogen* 15 mg/dL (7-30); Carbon Dioxide* 24 mmol/L (20-32); Creatinine* 0.7 mg/dL (0.5-1.5); Est. Creatinine Clearance* 41.45; Estimated Glomerular Filt Rate 86 ml/min; Glucose* 103 mg/dL (60-115)
[2024-07-09 15:33] LABS: Slide Review Reflex No
[2024-07-09 15:35] LABS: Anion Gap 7 mEq/L (7-15)
== END 2024-07-09 17:15 | disposition home or self-care (01) ==
PROVIDERS: Emergency Provider Emergency Medicine Emergency Medical Services
DX: R07.89 Other chest pain (principal)
CPT/HCPCS: 36415; 80048; 84484; 85025; 93005; 99284

== ENCOUNTER 2024-10-06 11:40 | Outpatient (REF) | payer MEDICARE, SELFPAY ==
[2024-10-06 12:13] LABS: Basophils Percent Auto 0.3 % (0.0-3.0); Hematocrit 37.2 % (33.0-51.0); Hemoglobin* 12.1 gm/dL (12.0-16.0); Lymphocytes Percent Auto 23.1 % (20-44); Mean Corpuscular HGB Conc 33 gm/dL (32-36); Mean Corpuscular Hemoglobin 30 pg (26-34); Mean Corpuscular Volume 91 fL (80-100); Neutrophils Percent Auto 65.6 % (42.0-72.0); Platelet Count* 127 K/uL (140-440); RDW Coefficient of Variation % 13.1 % (11.5-15.5); Red Blood Count 4.07 m/uL (4.00-5.20); White Blood Count* 2.99 K/uL (4.50-11.00)
[2024-10-06 12:19] LABS: Slide Review Reflex No
[2024-10-06 12:24] LABS: Chloride* 106 mmol/L (96-114); Potassium* 3.6 mmol/L (3.6-5.1); Sodium* 140 mmol/L (135-149)
[2024-10-06 12:27] LABS: Anion Gap 10 mEq/L (7-15); Carbon Dioxide* 24 mmol/L (20-32); Creatinine* 0.7 mg/dL (0.5-1.5); Estimated Glomerular Filt Rate 86 ml/min
[2024-10-06 12:28] LABS: Blood Urea Nitrogen* 10 mg/dL (7-30); Calcium* 9.2 mg/dL (8.4-10.6); Glucose* 132 mg/dL (60-115)
== END 2024-10-06 11:41 | disposition home or self-care (01) ==
LOC: NPINS 11:40
PROVIDERS: Visit Provider Nurse Practitioner Gerontology
DX: I10 Essential (primary) hypertension (principal); E11.9 Type 2 diabetes mellitus without complications; E03.9 Hypothyroidism, unspecified
CPT/HCPCS: 80048; 84443; 85025

== ENCOUNTER 2024-12-16 22:14 | Outpatient (CLI) | payer MEDICARE, SELFPAY | END 2024-12-16 22:15 | disposition home or self-care (01) | LOC: AMB 12-19 12:26 | PROVIDERS: Visit Provider Student in an Organized Health Care Education/Training Program | DX: R07.89 Other chest pain (principal) | CPT/HCPCS: A0425; A0427 ==

== ENCOUNTER 2024-12-16 22:19 | Emergency (ER) | payer MEDICARE, SELFPAY ==
--- OUTSIDE RECORDS SUMMARY | 2024-12-16 22:23 | XMS_ITS | Encounter Summary ---
Author Organization [place] Address [address] [facility] [place] [address] Care Team Providers Care Concrete Stone Fabricating Supervisor Name Role Phone Andrew Lu MD Primary Care Provider [phone] Niko Resendiz MD Primary Care Provider Carlie Mac MD Primary Care Provide r Angella Mendieta MD Primary Care Provider Julito Banuelos MD Primary Care Provider [phone] Julito Banuelos MD Unavailable Julito Banuelos MD Unavailable Aleshia Henriquez RD Unavailable Unavailable Mary Kay Jones [facility] Unavailable Unavailable Susannah Blankenship [facility] Unavailable [phone] Carolyn Huynh [facility] Unavailable [phone] Vika Kevin APRN IC DESIGNER STANDARD CELLS Unavailable + Marilyn Willard MD Unavailable [phone] Carie Varela DO Unavailable [phone] Maylin May NP Unavailable [phone] Marisa Rodrigues RN Unavailable Unavailable Vilma Long MD Unavailable + [phone] Yasmeen Pendleton [facility] Unavailable [phone] Cole George Unavailable Fletcher Russell Unavailable Unavailable Bautista Casey MD Unavailable AnnyJasmyn tracey [facility] Unavailable [phone] Vika Kevin APRN [facility] Primary Care Prov ider Vika Kevin APRN [facility] Primary Care Prov ider Yasmeen ePndleton [facility] Unavailable [phone] Vika Kevin APRN [facility] Primary Care Prov ider Reason for Visit * Reason Onset Date Comments Refill Request 05/02/2012 Encounter Details Date Type Department Care Team (Late st Contact Info) Description 05/02/2012 MyC Refill [address] [address] Andrew Lu MD XXX RETIRED XXX [address] [place] [phone] Refill Request Social History Tobacco Use Types Packs/Day Years Used Date Smoking Tobacco: Former Cigarettes 0.3 15 0 10/26/1961 - 10/26/1976 Smokeless Tobacco: Never Alcohol Use Standard Drinks/Week Comments Yes 0 (1 standard drink = 0.6 oz pur e alcohol) 1-2 glasses of wine weekly Comments No Sex and Gender Information Value Date Recorded Sex Assigned at Not on file Legal 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 Started worsening again on 04/30, using hot packs, elevating. No fever. Finished 10 day Keflex last week. Pierre Smith R.N. * Telephone Encounter - Mary Cha - 05/03/2012 7:42 AM CDTMessage from MyChart: Original authorizing provider: Andrew Lu MD, MD Pat Rojas would like a refill of the following medications: cephALEXin (KEFLEX) 500 MG capsule [Andrew Lu MD, MD] Preferred pharmacy: [facility] Comment: documented in this encounter Plan of Treatment Not on file documented as of this encounter Visit Diagnoses Diagnosis Cellulitis of leg- Primary Cellulitis and abscess of leg, except foot documented in this encounter Additional Health Concerns Infection Onset Date Last Indicated Resolved Time Rule Out COVID-19 07/25/2020 07/25/2020 07/26/2020 3:02 PM CDT Rule Out COVID-19 12/04/2020 12/04/2020 12/05/2020 6:04 PM ARTS AND CRAFTS INSTRUCTOR documented as of this encounter Care Teams Concrete Stone Fabricating Supervisor Relationship Specialty Start Date End Date Andrew Lu MD XXX RETIRED XXX [address] [place] [phone] PCP - General 12/10/01 01/10/14 Niko Resendiz MD [address] [place] [address] PCP - General Internal Medicine 01/11/14 01/29/14 Carlie Mac MD [address] [place] [address] PCP - General Pediatrics 01/30/14 07/17/15 Angella Mendieta MD [address] [place] [address], [place] [address] PCP - General Family Practice 07/18/15 09/11/15 Julito Banuelos MD [address] [place] [address] PCP - General Family Practice 09/12/15 09/23/21 Julito Banuelos MD [address] [place] [address], [place] [address] PCP - Assigned PCP 02/17/16 12/28/18 Vika Kevin APRN IC DESIGNER STANDARD [employer] [address] [place] [address] PCP - General Nurse Practitioner - Family 09/24/21 03/05/22 Vika Kevin APRN IC DESIGN[employer] [address] [place] [address] PCP - General Nurse Practitioner - Family 03/18/22 06/18/22 Vika Kevin APRN IC DESIGNER [employer] [address] [place] [address] PCP - General Nurse Practitioner - Family 07/24/22 Julito Banuelos MD [address] [place] [address] Assigned PCP 02/17/16 07/21/[address] [place] [address] Executive Marketing Assistant Dietitian, Registered 04/14/19 Mary Kay Jones, [facility] Pharmacist 08/01/19 04/20/20 Susannah Blankenship, [facility] [address] [facility] [address] [place], [place] [address] Pharmacist Pharmacist 08/08/19 04/15/21 Carolyn Huynh, [facility] [address] [place] [address] Pharmacist Pharmacist 06/25/20 04/15/21 Vika Kevin, HAND COREMAKER IC DESIGNER STANDARD CELLS [address] [place] [address] [id number] Assigned PCP 07/22/20 11/16/24 Marilyn Willard MD [address] [facility] [address] [place], [place] [id number] Assigned Surgical Provider 08/17/20 08/16/24 Carie Varela DO [address] [place] [id number] Assigned Heart and Vascular Provider 08/17/20 01/19/21 Maylin May NP [address] [place], [place] [id number] Assigned Pediatric Specialist Provider 12/16/20 06/13/22 Marisa Rodrigues, RN Clinic Comparator Operator 01/15/21 02/26/21 Vilma Long MD [address] [place] [id number] Assigned Heart and Vascular Provider 01/20/21 07/20/21 Yasmeen Pendleton, [facility] [address] [place] [address] Pharmacist Pharmacist 06/04/21 01/15/22 Cole George LISW Lead Comparator Operator 06/13/21 10/07/21 Fletcher Up Community Health Worker 06/13/21 09/12/21 Bautista Casey MD [address] [place] [address] Assigned Heart and Vascular Provider 07/21/21 01/16/23 Jasmyn Oliver CHW [facility] Worker 09/13/21 10/07/21 Yasmeen Pendleton [facility] [address] [place] [address] Assigned MTM Pharmacist 03/22/22 01/02/23 documented as of this encounter
--- OUTSIDE RECORDS SUMMARY | 2024-12-16 22:23 | XMS_ITS | Encounter Summary ---
Author Organization [place] Address [address] [facility] [place] [address] Care Team Providers Care Roast Master Name Role Phone Aleshia Henriquez RD Unavailable Unavailable Vika Kevin APRN STOCK BUYER Unavailable + Marilyn Willard MD Unavailable [phone] Maylin May NP Unavailable [phone] Ip, Bautista Bell MD Unavailable [phone] Vika Kevin APRN [facility] Primary Care Prov ider Vika Kevin APRN [facility] Primary Care Prov ider Yasmeen Pendleton [facility] Unavailable [phone] Vika Kevin APRN [facility] Primary Care Prov ider Encounter Details Date Type Department Care Team (Late st Contact Info) Description 02/12/2022 MyC Medical Advice [facility] [address] [place] [address] Marilyn Chaves Social History Tobacco Use Types Packs/Day Years Used Date Smoking Tobacco: Former Cigarettes 0.5 15 0 10/26/1955 - 10/26/1963 Smokeless Tobacco: Never Alcohol Use Standard Drinks/Week Comments Yes 6 (1 standard drink = 0.6 oz pur e alcohol) Occasional glass of wine Social Connection and Isolat ion Panel [NHANES] Answer Date Recorded In a typical week, how many times do you talk on the phone with family, friends, or neighbors? More than three times a week 06/14/2021 Frequency of Social Gatherin gs with Friends and Family Not on file 06/14/2021 Attends Jainism Services Not on file 06/14 Active Member of Clubs or Organizations Not on f ile 06/14/2021 Attends Club or Organization Meetings Not on fanny e 06/14/2021 Are you , , di vorced, , never , or living with a partner? 06/14/2021 AUDIT-C Answer Date Recorded Q1: How often do you have a drink containing alcohol? 4 or more times a week 06/14/2021 Q2: How many drinks containi ng alcohol do you have on a typical day when you are drinking? 1 or 2 Q3: How often do you have si x or more drinks on one occasion? Never 06/14/2021 PHQ-2 Answer Date Recorded PHQ-2 Score 1 09/25/2021 Housing Stability Vital Sign Answer Glen e Recorded In the last 12 months, was t here a time when you were not able to pay the mortgage or rent on time? No 06/14/2021 In the last 12 months, how many places have you lived? 2 06/14/2021 In the last 12 months, was t here a time when you did not have a steady place to sleep or slept in a jail (including now)? 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 Not on file Not on file documented as of this encounter Plan of Treatment Not on file documented as of this encounter Visit Diagnoses Not on filedocumented in this encounter Additional Health Concerns Assessment Noted Time PHQ-9 Depression Total Score: 10 021 3:56 PM CDT documented as of this encounter Care Teams Roast Master Relationship Specialty Start Date End Date Vika Kevin APRN STOCK BUYER [address] [place] [id number] PCP - General Nurse Practitioner - Family 09/24/21 03/05/22 Vika Kevin APRN STOCK BUYER [address] [place] [address] PCP - General Nurse Practitioner - Family 03/18/22 06/18/22 Vika Kevin APRN STOCK BUYER [address] [place] [address] PCP - General Nurse Practitioner - Family 07/24/[address] Perforator Loader Dietitian, Registered 04/14/19 Vika Kevin, JAIME STOCK BUYER [address] [place] [address] Assigned PCP 07/22/20 11/16/24 Marilyn Willard MD [address] [place] [address] Assigned Surgical Provider 08/17/20 08/16/24 Maylin May, JENNY [address] [place] [address] Assigned Pediatric Specialist Provider 12/16/20 06/13/22 Bautista Casey MD [address] [place] [address] Assigned Heart and Vascular Provider 07/21/21 01/16/23 Yasmeen Pendleton, [facility] [address] [place] [address] Assigned MTM Pharmacist 03/22/22 01/02/23 documented as of this encounter
--- OUTSIDE RECORDS SUMMARY | 2024-12-16 22:23 | XMS_ITS | Encounter Summary ---
Author Organization [place] Address [address] [facility] [place] [address] Care Team Providers Care Baker Biscuit Name Role Phone Julito Banuelos MD Primary Care Provider [phone] Julito Banuelos MD Unavailable Aleshia Henriquez RD Unavailable Unavailable Mary Kay Jones [facility] Unavailable Unavailable Susannah Blankenship [facility] Unavailable Carolyn Huynh [facility] Unavailable [phone] Vika Kevin APRN EMPLOYEE BENEFITS MANAGER Unavailable + Marilyn Willard MD Unavailable Carie Varela DO Unavailable [phone] Maylin May NP Unavailable [phone] Marisa Hernandez RN Unavailable Unavailable Vilma Long MD Unavailable Yasmeen Pendleton [facility] Unavailable Cole George Unavailable Fletcher Russell Unavailable Unavailable Bautista Casey MD Unavailable [phone] Jasmyn Oliver CHW Unavailable [phone] Vika Kevin APRN EMPLOYEE BENEFITS MANAGER Primary Care Prov ider Vika Kevin APRN [facility] Primary Care Prov ider Yasmeen Pendleton [facility] Unavailable [phone] Vika Kevin APRN [facility] Primary Care Prov ider Reason for Visit * Reason Onset Date Comments Refill Request 09/11/2019 Encounter Details Date Type Department Care Team (Late st Contact Info) Description 09/11/2019 MyC Refill [address] [place] [address] Julito Baunelos MD [address] [place] [address] Refill Request Social History Tobacco Use Types Packs/Day Years Used Date Smoking Tobacco: Former Cigarettes 0.3 15 0 10/26/1961 - 10/26/1976 Smokeless Tobacco: Never Alcohol Use Standard Drinks/Week Comments Yes 6 (1 standard drink = 0.6 oz pur e alcohol) couple days a week PHQ-2 Answer Date Recorded PHQ-2 Score 2 07/18/2019 Comments No Sex and Gender Information Value Date Recorded Sex Assigned at Not on file Legal 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 PHYSICIAN ANESTHESIOLOGIST Gender Identity Not on file Sexual Orientation Not on file Occupation Industry Job Start Date Job End Date Not on file Not on file Not on file Not on file documented as of this encounter Miscellaneous Notes * Telephone Encounter - Shanelle Corona RN - 09/13/2019 11:06 AM PHYSICIAN ANESTHESIOLOGIST This was discontinued due to side effects. Sent mychart to patient asking if she is still taking. Ruth Muñoz RN [facility] [phone] ICIAN ANESTHESIOLOGIST * Telephone Encounter - Sandra Jesús - 09/12/2019 9:28 AM CST Requested Prescriptions Pending Prescriptions Disp Refills ??? donepezil (ARICEPT) 5 MG tablet Last Written Prescription Date: 08.08.19 Last Fill Quantity: 30 tablet, # refills: 3 Last office visit: 08/08/2019 with prescribing provider: Julito Banuelos MD Future Office Visit: Next 5 appointments (look out 90 days) Sep 12, 2019 2:00 PM PHYSICIAN ANESTHESIOLOGIST SHORT with Susannah [facility] ([facility]) [address] [facility] [phone] Sep 23, 2019 10:50 AM PHYSICIAN ANESTHESIOLOGIST Office Visit with Julito Banuelos MD [facility] ([facility] [address] [place] [address] [phone] 30 tablet 3 Sig: Take 1 tablet (5 mg) by mouth At Bedtime Miscellaneous Dementia Agents Passed - 09/11/2019 8:29 AM Passed - Recent (12 mo) or future (30 days) visit within the authorizing provider's specialty Patient has had an office visit with the authorizing provider or a provider within the authorizing providers department within the previous 12 mos or has a future within next 30 days. See Patient Info tab in inbasket, or Choose Columns in Meds & Orders section of the refill encounter. 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) documented in this encounter Additional Health Concerns Infection Onset Date Last Indicated Resolved Time Rule Out COVID-19 07/25/2020 07/25/2020 07/26/2020 3:02 PM CDT Rule Out COVID-19 12/04/2020 12/04/2020 12/05/2020 6:04 PM PHYSICIAN ANESTHESIOLOGIST Assessment Noted Time PHQ-9 Depression Total Score: 8 07/18/20 19 12:06 PM CDT documented as of this encounter Care Teams Baker Biscuit Relationship Specialty Start Date End Date Julito Banuelos MD [address] [place] [address] [phone] PCP - General Family Practice 09/12/15 09/23/21 Vika Kevin APRN EMPLOYEE BENEFITS MANAGER [address] [place] [address] [phone] PCP - General Nurse Practitioner - Family 09/24/21 03/05/22 Vika Kevin APRN EMPLOYEE BENEFITS MANAGER [address] [place] [address] 31529 PCP - General Nurse Practitioner - Family 03/18/22 06/18/22 Vika Kevin APRN EMPLOYEE BENEFITS MANAGER [address] [place] [address] [phone] PCP - General Nurse Practitioner - Family 07/24/22 Julito Banuelos MD [address] [place] [address] [phone] Assigned PCP 02/17/16 07/21/[address] [place] [address] Warp Trucker Dietitian, Registered 04/14/19 Mary Kay Jones, [facility] Pharmacist 08/01/19 04/20/20 Susannah Blankenship, [facility] [address] [place] [address] [address] [place] [address] Pharmacist Pharmacist 08/08/19 04/15/21 Carolyn Huynh [facility] [address] [place] [address] Pharmacist Pharmacist 06/25/20 04/15/21 Vika Kevin APRN EMPLOYEE BENEFITS MANAGER [address] [place] [address] Assigned PCP 07/22/20 11/16/24 Marilyn Willard MD [address] [facility] [address] [place] [address] Assigned Surgical Provider 08/17/20 08/16/24 Carie Varela DO [address] [place] [address] Assigned Heart and Vascular Provider 08/17/20 01/19/21 Maylin May NP [address] [place] [address] Assigned Pediatric Specialist Provider 12/16/20 06/13/22 Marisa Rodrigues, RN Clinic Finance Professional 01/15/21 02/26/21 Vilma Long MD [address] [place] [address] Assigned Heart and Vascular Provider 01/20/21 07/20/21 Yasmeen Pendleton [facility] [address] [place] [address] Pharmacist Pharmacist 06/04/21 01/15/22 Cole eGorge LISW Lead Finance Professional 06/13/21 10/07/21 Fletcher Up Community Health Worker 06/13/21 09/12/21 Bautista Casey MD [address] [place] [address] Assigned Heart and Vascular Provider 07/21/21 01/16/23 Jasmyn Oliver CHW Community Health Worker 09/13/21 10/07/21 Yasmeen Pendleton [facility] [address] [place] [address] Assigned MTM Pharmacist 03/22/22 01/02/23 documented as of this encounter
--- OUTSIDE RECORDS SUMMARY | 2024-12-16 22:23 | XMS_ITS | Encounter Summary ---
Author Organization [place] Address [address] [facility] [place] [address] Care Team Providers Care Strap Folding Machine Operator Name Role Phone Aleshia Henriquez RD Unavailable Unavailable Vika Kevin APRN [facility] Unavailable + Marilyn Willard MD Unavailable Maylin May NP Unavailable [phone] Yasmeen Pendleton [facility] Unavailable [phone] Bautista Casey MD Unavailable [phone] Vika Kevin APRN [facility] Primary Care Prov ider Vika Kevin APRN [facility] Primary Care Prov ider Yasmeen Pendleton [facility] Unavailable Vika Kevin APRN [facility] Primary Care Prov ider Encounter Details Date Type Department Care Team (Late st Contact Info) Description 10/17/2021 [facility] Medical Advice [address] [phone] Yasmeen Pendleton, [facility] [address] [place], [place] [phone] Social History Tobacco Use Types Packs/Day Years [...] and Family Not on file 06/14/2021 Attends [employer] Not on file 06/14 Active Member [...] place to sleep or slept in a longterm (including now)? 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 No / Unsure 09/25/2021 11:59 AM PREASSEMBLER AND INSPECTOR documented as of this encounter Plan of Treatment Not on file documented as of this encounter Visit Diagnoses Not on filedocumented in this encounter Additional Health Concerns Assessment Noted Time PHQ-9 Depression Total Score: 10 04/29/ 021 3:56 PM CDT documented as of this encounter Care Teams Strap Folding Machine Operator Relationship Specialty Start Date End Date Vika Kevin APRN ENERGY PROJECTS LEAD [address] [place] [address] PCP - General Nurse Practitioner - Family 09/24/21 03/05/22 Vika Kevin APRN ENERGY PROJECTS LEAD [address] [place] [address] PCP - General Nurse Practitioner - Family 03/18/22 06/18/22 Vika Kevin APRN ENERGY PROJECTS LEAD [address] [place] [address] [phone] PCP - General Nurse Practitioner - Family 07/24/[address] Oyster Planter Dietitian, Registered 04/14/19 Vika Kevin APRN ENERGY PROJECTS LEAD [address] [place] [address] Assigned PCP 07/22/20 11/16/24 Marilyn Willard MD [address] [place] [address] Assigned Surgical Provider 08/17/20 08/16/24 Maylin May NP [address] [place] [address] Assigned Pediatric Specialist Provider 12/16/20 06/13/22 Yasmeen Pendleton [facility] [address] [place] [address] Pharmacist Pharmacist 06/04/21 01/15/22 Bautista Casey MD [address] [place] [address] Assigned Heart and Vascular Provider 07/21/21 01/16/23 Yasmeen Pendleton [facility] [address] [place] [address] Assigned MTM Pharmacist 03/22/22 01/02/23 documented as of this encounter
--- OUTSIDE RECORDS SUMMARY | 2024-12-16 22:23 | XMS_ITS | Encounter Summary ---
Author Organization [place] Address [address] [facility] [place] [address] Care Team Providers Care Human Geography Instructor Name Role Phone Julito Banuelos MD Primary Care Provider [phone] Julito Banuelos MD Unavailable Aleshia Henriquez RD Unavailable Unavailable Mary Kay Jones [facility] Unavailable Unavailable Susannah Blankenship [facility] Unavailable Carolyn Huynh [facility] Unavailable [phone] Vika Kevin APRN SEW ON OPERATOR Unavailable + Marilyn Willard MD Unavailable [phone] Carie Varela DO Unavailable [phone] Maylin May NP Unavailable [phone] Marisa Hernandez RN Unavailable Unavailable Vilma Long MD Unavailable Yasmeen Pendleton [facility] Unavailable Cole George Unavailable Fletcher Russell Unavailable Unavailable Bautista Casey MD Unavailable Jasmyn Oliver CHW Unavailable [phone] Vika Kevin APRN SEW ON OPERATOR Primary Care Prov ider Vika Kevin APRN [facility] Primary Care Prov ider Yasmeen Pendleton [facility] Unavailable [phone] Vika Kevin APRN [facility] Primary Care Prov ider Encounter Details Date Type Department Care Team (Late st Contact Info) Description 02/13/2020 MyC Medical Advice [address] [place] [address] Mary Kay Jones, [facility] Social History Tobacco Use Types Packs/Day Years Used Date Smoking Tobacco: Former Cigarettes 0.3 15 0 10/26/1961 - 10/26/1976 Smokeless Tobacco: Never Alcohol Use Standard Drinks/Week Comments Yes 6 (1 standard drink = 0.6 oz pur e alcohol) couple days a week PHQ-2 Answer Date Recorded PHQ-2 Score 0 09/23/2019 Comments No Sex and Gender Information Value Date Recorded Sex Assigned at Not on file Legal 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 SALVAGE SUPERVISOR Gender Identity Not on file Sexual Orientation Not on file Occupation Industry Job Start Date Job End Date Not on file Not on file Not on file Not on file COVID-19 Exposure Response Date Recorded In the last month, have you been in contact with someone who was confirmed or suspected to have Coronavirus / COVID-19? Unable to assess 02/13/2020 10:01 AM CDT documented as of this encounter Plan of Treatment Not on file documented as of this encounter Visit Diagnoses Not on filedocumented in this encounter Additional Health Concerns Infection Onset Date Last Indicated Resolved Time Rule Out COVID-19 07/25/2020 07/25/2020 07/26/2020 3:02 PM CDT Rule Out COVID-19 12/04/2020 12/04/2020 12/05/2020 6:04 PM SALVAGE SUPERVISOR Assessment Noted Time PHQ-9 Depression Total Score: 8 07/18/20 19 12:06 PM CDT documented as of this encounter Care Teams Human Geography Instructor Relationship Specialty [place] [address] [place] [address] PCP - General Family Practice 09/12/15 09/23/21 Vika Kevin APRN SEW ON OPERATOR [address] [place] [address] [phone] PCP - General Nurse Practitioner - Family 09/24/21 03/05/22 Vika Kevin APRN SEW ON OPERATOR [address] [place] [address] 334382 PCP - General Nurse Practitioner - Family 03/18/22 06/18/22 Vika Kevin APRN SEW ON OPERATOR [address] [place] [address] PCP - General Nurse Practitioner - Family 07/24/22 Julito Banuelos MD [address] [place] [address] [phone] Assigned PCP 02/17/16 07/21/[address] [place] [address] Early Childhood Assistant Dietitian, Registered 04/14/[address] Kay [address] [facility] Pharmacist 08/01/19 04/20/[address] [facility] [address] [place] [address] [address] [place], [place] [phone] Pharmacist Pharmacist 08/08/19 04/15/[address] [facility] [address] [place] [address] Pharmacist Pharmacist 06/25/20 04/15/21 Vika Kevin APRN SEW ON OPERATOR [address] [place] [address] Assigned PCP 07/22/20 11/16/24 Marilyn Willard MD [address] [place] [address] [address] [place] [address] Assigned Surgical Provider 08/17/20 08/16/24 Carie Varela DO [address] [place] [address] Assigned Heart and Vascular Provider 08/17/20 01/19/21 Maylin May NP [address] [place] [address] Assigned Pediatric Specialist Provider 12/16/20 06/13/22 Marisa Rodrigues, RN Clinic Head Of Biology 01/15/21 02/26/21 Vilma Long MD [address] [place] [address] Assigned Heart and Vascular Provider 01/20/21 07/20/[address] [facility] [address] [place] [address] Pharmacist Pharmacist 06/04/21 01/15/22 Cole George LISW Lead Head Of Biology 06/13/21 10/07/21 Fletcher Up Community Health Worker 06/13/21 09/12/21 Bautista Casey MD [address] [place] [address] Assigned Heart and Vascular Provider 07/21/21 01/16/23 Jasmyn Oliver CHW Community Health Worker 09/13/21 10/07/21 Yasmeen Pendleton, [facility] [address] [place] [address] Assigned MTM Pharmacist 03/22/22 01/02/23 documented as of this encounter
--- OUTSIDE RECORDS SUMMARY | 2024-12-16 22:23 | XMS_ITS | Encounter Summary ---
Author Organization [place] Address [address] [place] [address] Care Team Providers Care Corporate Affairs Manager Name Role Phone Andrew Lu MD Primary Care Provider [phone] Niko Resendiz MD Primary Care Provider Carlie Mac MD Primary Care Provide r Angella Mendieta MD Primary Care Provider Julito Banuelos MD Primary Care Provider [phone] Julito Banuelos MD Unavailable Julito Banuelos MD Unavailable Aleshia Henriquez RD Unavailable Unavailable Mary Kay Jones [facility] Unavailable Unavailable Susannah Blankenship [facility] Unavailable [phone] Carolyn Huynh [facility] Unavailable [phone] Vika Kevin APRN FITNESS CLUB MANAGER Unavailable + Marilyn Willard MD Unavailable [phone] Carie Varela DO Unavailable [phone] Maylin May NP Unavailable [phone] Marisa Rodrigues RN Unavailable Unavailable Vilma Long MD Unavailable [phone] Yasmeen Pendleton [facility] Unavailable [phone] Cole George Unavailable Fletcher Russell Unavailable Unavailable Bautista Casey MD Unavailable [phone] DemetriusJasmyn wright [facility] Unavailable [phone] Vika Kevin APRN [facility] Primary Care Prov ider Vika Kevin APRN [facility] Primary Care Prov ider Yasmeen Pendleton [facility] Unavailable [facility] Primary Care Prov ider Encounter Details Date Type Department Care Team (Late st Contact Info) Description 11/07/2012 MyC Medical Advice [address] [phone] Andrew Lu MD XXX RETIRED XXX [address] [phone] Social History Tobacco Use Types Packs/Day Years Used Date Smoking Tobacco: Former Cigarettes 0.3 15 0 10/26/1961 - 10/26/1976 Smokeless Tobacco: Never Alcohol Use Standard Drinks/Week Comments Yes 0 (1 standard drink = 0.6 oz pur e alcohol) 1-2 glasses of wine weekly Comments No Sex and Gender Information Value Date Recorded Sex Assigned at Not on file Legal 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 DIRECTOR PLANS Gender Identity Not on file Sexual Orientation [...] Out COVID-19 12/04/2020 12/04/2020 12/05/2020 6:04 PM DIRECTOR PLANS documented as of this encounter Care Teams Corporate Affairs Manager Relationship Specialty Start Date End Date Andrew Lu MD XXX RETIRED XXX [address] [place] [phone] PCP - General 12/10/01 01/10/14 Niko Resendiz MD [address] [place] [address] PCP - General Internal Medicine 01/11/14 01/29/14 Carlie Mac MD [address] [place] [address] PCP - General Pediatrics 01/30/14 07/17/15 Angella Mendieta MD [address] [place] [address] PCP - General Family Practice 07/18/15 09/11/15 Julito Banuelos MD [address] [place] [address] PCP - General Family Practice 09/12/15 09/23/21 Julito Banuelos MD [address] [place] [address] PCP - Assigned PCP 02/17/16 12/28/18 Vika Kevin APRN FITNESS CLUB MANAGER [address] [place] [address] PCP - General Nurse Practitioner - Family 09/24/21 03/05/22 Vika Kevin APRN FITNESS CLUB MANAGER [address] [place] [address] PCP - General Nurse Practitioner - Family 03/18/22 06/18/22 Vika Kevin, JAIME FITNESS CLUB MANAGER [address] [place] [address] 857642 PCP - General Nurse Practitioner - Family 07/24/22 Julito Banuelos MD [address] [place] [address] [phone] Assigned PCP 02/17/16 07/21/[address] [place] [address] Mechanic Welder Truck Driver Dietitian, Registered 04/14/19 Mary Kay Jones, [facility] Pharmacist 08/01/19 04/20/20 Susannah Blankenship, [facility] [address] [facility] [address] [place], [place] [address] Pharmacist Pharmacist 08/08/19 04/15/21 Carolyn Huynh, [facility] [address] [place], [place] 24[address] Pharmacist Pharmacist 06/25/20 04/15/21 Vika Kevin, JAIME FITNESS CLUB MANAGER [address] [place] [address] 555222 Assigned PCP 07/22/20 11/16/24 Marilyn Willard MD [address] [facility] [address] [place], [place] 366[address] Assigned Surgical Provider 08/17/20 08/16/24 Carie Varela DO [address] [place] [address] Assigned Heart and Vascular Provider 08/17/20 01/19/21 Maylin May NP [address] [place] [address] Assigned Pediatric Specialist Provider 12/16/20 06/13/22 Marisa Rodrigues, RN Clinic Entertainment Reporter 01/15/21 02/26/21 Vilma Long MD [address] [place] [address] Assigned Heart and Vascular Provider 01/20/21 07/20/21 Yasmeen Pendleton [facility] [address] [place] [address] Pharmacist Pharmacist 06/04/21 01/15/22 Cole George LISW Lead Entertainment Reporter 06/13/21 10/07/21 Fletcher Up Community Health Worker 06/13/21 09/12/21 Bautista Casey MD [address] [place] [address] Assigned Heart and Vascular Provider 07/21/21 01/16/23 Jasmyn Oliver CHW Community Health Worker 09/13/21 10/07/21 Yasmeen Pendleton [facility] [address] [place] [address] Assigned MTM Pharmacist 03/22/22 01/02/23 documented as of this encounter
--- OUTSIDE RECORDS SUMMARY | 2024-12-16 22:23 | XMS_ITS | Encounter Summary ---
Author Organization [place] Address [address] [facility] [place] [address] Care Team Providers Care Administrative Supervisor Name Role Phone Aleshia Henriquez RD Unavailable Unavailable Vika Kevin APRN, CNP Unavailable + Marilyn Willard MD Unavailable [phone] Maylin May NP Unavailable [phone] Ip, Bautista Bell MD Unavailable Vika Kevin APRN [facility] Primary Care Prov ider Vika Kevin APRN [facility] Primary Care Prov ider Yasmeen Pendleton [facility] Unavailable [phone] Vika Kevin APRN [facility] Primary Care Prov ider Reason for Visit * Reason Onset Date Comments Forms 02/19/2022 Encounter Details Date Type Department Care Team (Late st Contact Info) Description 02/19/[address] [address] Vika Kevin APRN [address] [address] Forms Social History Tobacco Use Types Packs/Day Years [...] and Family Not on file 06/14/2021 Attends Christianity Services Not on file 06/14 Active Member [...] place to sleep or slept in a halfway (including now)? 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 Type of letter, form or note: medical Who is the form from?: Home care Where did the form come from: form was faxed in What clinic location was the form placed at?: [facility] Where the form was placed: Vika Kevin Box/Folder What number is listed as a contact on the form?: [phone] Additional comments: Call taken on 02/19/2022 at 2:46 PM by Peggy Gregory documented in this encounter Plan of Treatment Not on file documented as of this encounter Visit Diagnoses Not on filedocumented in this encounter Additional Health Concerns Assessment Noted Time PHQ-9 Depression Total Score: 10 021 3:56 PM CDT documented as of this encounter Care Teams Administrative Supervisor Relationship Specialty Start Date End Date Vika Kevin APRN EDUCATION INSTRUCTOR [address] [place] [address] PCP - General Nurse Practitioner - Family 09/24/21 03/05/22 Vika Kevin APRN EDUCATION INSTRUCTOR [address] [place] [address] PCP - General Nurse Practitioner - Family 03/18/22 06/18/22 Vika Kevin APRN EDUCATION INSTRUCTOR [address] [place] [address] PCP - General Nurse Practitioner - Family 07/24/[address] Motion Picture Narrator Dietitian, Registered 04/14/19 Vika Kevin APRN EDUCATION INSTRUCTOR [address] [place] [address] Assigned PCP 07/22/20 11/16/24 Marilyn Willard MD [address] [facility] [address] [place], [place] [address] Assigned Surgical Provider 08/17/20 08/16/24 Maylin May NP [address] [place], [place] [id number] Assigned Pediatric Specialist Provider 12/16/20 06/13/22 Bautista Casey MD [address] [place] [address] Assigned Heart and Vascular Provider 07/21/21 01/16/23 Yasmeen Pendleton, [facility] [address] [place], [place] [address] Assigned MTM Pharmacist 03/22/22 01/02/23 documented as of this encounter
--- OUTSIDE RECORDS SUMMARY | 2024-12-16 22:23 | XMS_ITS | Encounter Summary ---
Author Organization [place] Address [address] [facility] [place] [address] Care Team Providers Care Area Director Name Role Phone Cortez Lu MD Primary Care Provider [phone] Niko Resendiz MD Primary Care Provider Carlie Mac MD Primary Care Provide r Angella Mendieta MD Primary Care Provider Julito Banuelos MD Primary Care Provider [phone] Julito Banuelos MD Unavailable Julito Banuelos MD Unavailable Aleshia Henriquez RD Unavailable Unavailable Mary Kay Jones [facility] Unavailable Unavailable Susannah Blankenship [facility] Unavailable [phone] Carolyn Huynh [facility] Unavailable [phone] Vika Kevin APRN [employer] Unavailable + Marilyn Willard MD Unavailable [phone] Carie Varela DO Unavailable [phone] Maylin May NP Unavailable [phone] Marisa Rodrigues RN Unavailable Unavailable Vilma Long MD Unavailable + [phone] Yasmeen Pendleton [facility] Unavailable + [phone] Cole George Unavailable Fletcher Russell Unavailable Unavailable Bautista Casey MD Unavailable Jasmyn Oliver [facility] Unavailable [phone] Vika Kevin APRN [facility] Primary Care Prov ider Vika Kevin APRN [facility] Primary Care Prov ider Yasmeen Pendleton [facility] Unavailable [phone] [facility] Primary Care Prov ider Encounter Details Date Type Department Care Team (Late st Contact Info) Description 02/01/2013 Office Visit-[facility] [address] [place] [address] Reji Davis MD [address] [place], [place] [id number] Social History Tobacco Use Types Packs/Day Years Used Date Smoking Tobacco: Former Cigarettes 0.3 15 0 10/26/1961 - 10/26/1976 Smokeless Tobacco: Never Alcohol Use Standard Drinks/Week Comments Yes 0 (1 standard drink = 0.6 oz pur e alcohol) 1-2 glasses of wine weekly Comments No Sex and Gender Information Value Date Recorded Sex Assigned at Not on file 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 Diabetes Jcankkxy-Amj-Nozwjfi Dependent, 250.00 2. - Hyperlipidemia mixed, 272.2 3. - Hypertension, 401.1 4. - CAD, 414.00 ALLERGIES lisinopril Nitrofurantoin Nitrofurantoin Macrocrystal pramipexole Di-HCl Sulfasalazine tolterodine tartrate zolpidem tartrate MEDICATIONS (prior to changes made today) 1. Asmanex Twisthaler 220 mcg (120 doses) Aerosol Powdr [facility] ActivInhl, Take as Directed 2. aspirin, buffered 81 mg tablet, 1 p.o. daily 3. Klor-Con 10 10 mEq tablet extended release, 1 p.o. daily 4. Lamictal 25 mg tablet, 1 p.o. daily 5. Lasix 40 mg tablet, 1 p.o. daily 6. Lopressor 50 mg tablet, 1 p.o. daily 7. metoprolol succinate 100 mg tablet extended release 24 hr, 1 p.o. daily 8. multivitamin tablet, 1 p.o. daily 9. Nasacort AQ 55 mcg Aerosol, [place], Take as Directed 10. Plavix 75 mg tablet, 1 p.o. daily 11. pravastatin 40 mg tablet, 1 p.o. daily 12. Premarin 0.625 mg/gram Cream, Take as Directed 13. Prilosec 20 mg capsule,delayed release(DR/EC), 1 p.o. daily 14. Robaxin-750 750 mg tablet, 1 p.o. daily 15. Seroquel 25 mg tablet, 1 p.o. daily 16. Singulair 10 mg tablet, 1 p.o. daily 17. Synthroid 50 mcg tablet, 1 p.o. daily 18. trimethoprim 100 mg tablet, 1 p.o. daily 19. Vitamin C 500 mg tablet, 1 p.o. daily 20. Xolair 150 mg Recon Soln, Take as Directed 21. Xopenex HFA 45 mcg/actuation HFA Aerosol Inhaler, Take as Directed 22. Zantac 75 75 mg tablet, 1 p.o. twice daily CHIEF COMPLAINTS establish care HISTORY OF PRESENT ILLNESS INDICATION: History of cad-CJ-ywfequo elevation MS, here to establish care. Ms. Cosby is a very pleasant 72-year-old female with a history of hypertension, hyperlipidemia,and type 2 diabetes mellitus. She was wintering in [place] when she developed acute onset one evening of back pain with radiation into her chest. She also had associated slight shortness of breath. She had had complaints of shortness of breath with exertion for some time, but it appeared worse the several weeks prior to this event. She subsequently went to the Emergency Room and was found to havehad a vva-GW-dwjmbaf elevation MS. On 12/27/12 she was taken to the Cardiac Catheterization Lab at [facility] in [place], [place]. There she was found to have significant disease of the left circumflex artery. She underwent two drug-eluting stent implantations. The first was a 2.5x12 mm [place] Resolute drug-eluting stent to the mid circumflex. The second was a 3.0x15 mm [place] Resolute drug-eluting stent to the proximal left circumflex. The remainder of her coronary anatomy showed nonobstructive disease. She also subsequently underwent an echocardiogram which showed mild left ventric ular hypertrophy but preserved systolic function and no evidence of regional wall motion abnormalities. I have reviewed an EKG during that hospitalization that shows Q waves inferiorly although I do not see evidence made for an inferior infarct on the echocardiogram. She has returned to [place] and states that she has been feeling tired but she has had no recurrent anginal symptoms. She denies any recurrent back pain or shortness of breath. Currently she has been having some dyspnea with exertion but she attributes this to not having taken her Lasix as she recently drove back from [place]. She is planning to take her Lasix over the next several days. She denies any orthopnea. No paroxysmal nocturnal dyspnea. No nausea, vomiting, diaphoresis, syncope, or presyncope. PAST HISTORY Past Medical Illnesses: asthma, HTN, hypothyoidism, diabetes, hyperlipidemia, major depression, anxiety Past Cardiac Illnesses: CAD, s/p MS Surgeries/Procedures - General: hysterectomy Cardiac/Vasc Procedures-Invasive: left heart cath 12/2012 ([place]) Cardiology Procedures-NonInvasive: echocardiogram Jun 2007, myocardial perfusion (Nuc) Jun 2007, echo 12/2012 ([place]) Cardiac Cath Results: 12/2012 [place] Resolute NELIA to the mid and prox CFX, prox to mid LAD diffuse 30-40% dx, 90% small Diag 1, 30-40% prox/40-50% mid/40% distal RCA Left Ventricular Ejection Fraction: EF<GT>55% by Echo -Dec 2012 EF<GT>55% by Echo -Dec 2012 FAMILY HISTORY: Family - Age 48, carotid artery disease; SOCIAL HISTORY Alcohol Use - drinks regularly and has about 1 a day- is trying to cut down; Smoking - does not smoke; Diet - regular diet without modifications, caffeine use-1-2 per day, low sodium (less than 2 grams) and decaf coffee; Lifestyle - , drives car and active lifestyle; Exercise - was exercising until health issue, walking, golfing, dancing, swimming; Seat Belt Use - always; Occupation - retired; Residence - lives with and been living in [place] for 3 months; Place of - [place]; REVIEW OF SYSTEMS GENERAL hosp f/u, feeling well and feeling better than she has been, decreased SOB, energy isn't great but she thinks it is getting better INTEGUMENTARY denies any change in hair or nails, rashes, or skin lesions. EYES wears eye glasses/contact lenses EARS, NOSE, THROAT, MOUTH partial hearing loss left ear RESPIRATORY history of asthma, dyspnea with exertion, snoring CARDIOVASCULAR negative for palpitations, chest pain, orthopnea, PND, peripheral edema, syncope or claudication. of the legs of the ankles of the feet, palpitations at rest of the legs of the ankles of the feet, palpitations with exercise of the legs of the ankles of the feet, edema of the legs of the ankles of the feet, palpitations have improved, these decrease after the has taken her medications, hasn't taken lasix d/t large amts of traveling ABDOMINAL denies ulcer disease, hematochezia or melena. GENITOURINARY-FEMALE frequency, nocturia, under urologists care, urethral dialations every 3 weeks MUSCULOSKELETAL chronic low back pain lower back, arthritis of the lower back NEUROLOGICAL denies any history of recurrent strokes, headaches, TIA, or seizure disorder. PSYCHIATRIC denies any history of depression, substance abuse or change in cognitive functions. ENDOCRINE hypothyroidism HEMATOLOGICAL/IMMUNOLOGIC seasonal allergies, takes allergy shots, allergies get worse in [place] but they can get bad in [place] too PHYSICAL EXAMINATION VITAL SIGNS: Blood Pressure: 116/58Sitting, Left arm, large cuff Pulse- 72.00/min. Weight- 230.60 lbs. Height- 67 BMI Measurement: 36 CONSTITUTIONAL well developed, well nourished, in no acute distress SKIN warm and dry to touch, no apparent skin lesions or masses noted HEAD normocephalic EYES conjunctivae and lids unremarkable CHEST clear to auscultation CARDIAC S1 normal, S2 normal, distant heart sounds ABDOMEN abdomen soft PERIPHERAL PULSES radial pulse(s) 3+ EXTREMITIES & BACK ankle edema NEUROLOGICAL affect appropriate MEDICATIONS UPDATED/STARTED TODAY: Asmanex Twisthaler 220 mcg (120 doses) Aerosol Powdr [place] ActivInhl, Take as Directed, #0 (Zero) aspirin, buffered 81 mg tablet, 1 p.o. daily, #0 (Zero) Klor-Con 10 10 mEq tablet extended release, 1 p.o. daily, #0 (Zero) Lamictal 25 mg tablet, 1 p.o. daily, #0 (Zero) Lasix 40 mg tablet, 1 p.o. daily, #0 (Zero) Lopressor 50 mg tablet, 1 p.o. daily, #0 (Zero) metoprolol succinate 100 mg tablet extended release 24 hr, 1 p.o. daily, #0 (Zero) multivitamin tablet, 1 p.o. daily, #0 (Zero) Nasacort AQ 55 mcg Aerosol, [place], Take as Directed, #0 (Zero) Plavix 75 mg tablet, 1 p.o. daily, #0 (Zero) pravastatin 40 mg tablet, 1 p.o. daily, #0 (Zero) Premarin 0.625 mg/gram Cream, Take as Directed, #0 (Zero) Prilosec 20 mg capsule,delayed release(DR/EC), 1 p.o. daily, #0 (Zero) Robaxin-750 750 mg tablet, 1 p.o. daily, #0 (Zero) Seroquel 25 mg tablet, 1 p.o. daily, #0 (Zero) Singulair 10 mg tablet, 1 p.o. daily, #0 (Zero) Synthroid 50 mcg tablet, 1 p.o. daily, #0 (Zero) trimethoprim 100 mg tablet, 1 p.o. daily, #0 (Zero) Vitamin C 500 mg tablet, 1 p.o. daily, #0 (Zero) Xolair 150 mg Recon Soln, Take as Directed, #0 (Zero) Xopenex HFA 45 mcg/actuation HFA Aerosol Inhaler, Take as Directed, #0 (Zero) Zantac 75 75 mg tablet, 1 p.o. twice daily, #0 (Zero) MEDICATIONS REFILLED/STOPPED TODAY: Sinemet 25-100 mg tablet 1 p.o. daily #0 (Zero) Physician Order, Singulair 10 mg tablet 1 p.o. daily #0 (Zero) Physician Order and Singulair 10 mg tablet 1 p.o. daily #0 (Zero) Physician Order IMPRESSIONS/PLAN 1. History of ksf-HS-ggzaesc elevation MS. 2. Coronary artery disease - status post PCI with a drug-eluting stent to the proximal circumflex and a second drug-eluting stent to the mid circumflex artery in December,. 3. Hypertension - currently well controlled. 4. Hyperlipidemia - the patient is on Pravachol for this. I do not have recent lipids available forreview. 5. Echocardiogram detailing preserved systolic function although her EKG shows inferior Q waves. PLAN: Overall, Ms. Cosby is doing exceptionally well from a cardiovascular standpoint. We will set her up for cardiac rehab in the [place] office since this is where she lives. I have asked her to remain on her aspirin lifelong, statin lifelong, and the Plavix for at least the next one year.I plan to see her back in routine clinical followup in six months at which time we can also assess her lipid panel. Her LDL goal would be less than 100, and ideally closer to 70 in the future. If sheis not at goal on pravastatin 40 q.d. we can think about switching her to a more potent statin. I have asked her to contact the clinic should she have recurrence of any anginal symptoms. Fortunately,she has not had any to date. I do agree for her to take her Lasix over the next several days to seeif this helps with her dyspnea with exertion. I think this is likely related to the fact that she has held her Lasix for the last several days while she was traveling back from [place]. She is to contact the clinic should her shortness of breath not improve. TODAYS ORDERS 1. Return Visit 6 months 2. 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 documented as of this encounter Care Teams Area Director Relationship Specialty Start Date End Date Cortez Lu MD XXX RETIRED XXX [address] [place] [address] PCP - General 12/10/01 01/10/14 Niko Resendiz MD [address] [address] PCP - General Internal Medicine 01/11/14 01/29/14 Carlie Mac MD [address] [place] [address] PCP - General Pediatrics 01/30/14 07/17/15 Angella Mendieta MD [address] [place] [address] PCP - General Family Practice 07/18/15 09/11/15 Julito Banuelos MD [address] [place] [address] PCP - General Family Practice 09/12/15 09/23/21 Julito Banuelos MD [address] [place] [address] PCP - Assigned PCP 02/17/16 12/28/18 Vika Kevin APRN [employer] [address] [place] [address] PCP - General Nurse Practitioner - Family 09/24/21 03/05/22 Vika Kevin APRN [employer] [address] [place] [address] PCP - General Nurse Practitioner - Family 03/18/22 06/18/22 Vika Kevin APRN [employer] [address] [place] [address] PCP - General Nurse Practitioner - Family 07/24/22 Julito Banuelos MD [address] [place] [address] 137012 Assigned PCP 02/17/16 07/21/[address] [place] [address] Chain Sales Representative Dietitian, Registered 04/14/19 Mary Kay Jones, [facility] Pharmacist 08/01/19 04/20/20 [facility] [address] [place] [address] [address] [place], [place] [address] Pharmacist Pharmacist 08/08/19 04/15/21 Carolyn Huynh [facility] [address] [place], [place] [address] Pharmacist Pharmacist 06/25/20 04/15/21 Vika Kevin APRN [employer] [address] [place] [id number] Assigned PCP 07/22/20 11/16/24 Marilyn Willard MD [address] [place] [address] [address] [place], [place] [address] Assigned Surgical Provider 08/17/20 08/16/24 Carie Varela DO [address] [place], [place] [address] Assigned Heart and Vascular Provider 08/17/20 01/19/21 Maylin May NP [address] [place], [place] [id number] Assigned Pediatric Specialist Provider 12/16/20 06/13/22 Marisa Rodrigues, RN Clinic Trucking Manager 01/15/21 02/26/21 Vilma Long MD [address] [place] [address] Assigned Heart and Vascular Provider 01/20/21 07/20/21 [facility] [address] [place], [place] [address] Pharmacist Pharmacist 06/04/21 01/15/22 Cole George LISW Lead Trucking Manager 06/13/21 10/07/21 Fletcher Up Community Health Worker 06/13/21 09/12/21 Bautista Casey MD [address] [place] [address] Assigned Heart and Vascular Provider 07/21/21 01/16/23 Jasmyn Oliver CHW Community Health Worker 09/13/21 10/07/21 Yasmeen Pendleton [facility] [address] [place] [address] Assigned MTM Pharmacist 03/22/22 01/02/23 documented as of this encounter
--- OUTSIDE RECORDS SUMMARY | 2024-12-16 22:23 | XMS_ITS | Encounter Summary ---
Author Organization [place] Address [address] [facility] [place] [address] Care Team Providers Care Steward/Stewardess Wine Name Role Phone Julito Banuelos MD Primary Care Provider [phone] Julito Banuelos MD Unavailable Aleshia Henriquez RD Unavailable Unavailable Mary Kay Jones [facility] Unavailable Unavailable Susannah Blankenship [facility] Unavailable [phone] Carolyn Huynh [facility] Unavailable [phone] Vika Kevin APRN AUDIT DIRECTOR Unavailable + Marilyn Willard MD Unavailable Carie Varela DO Unavailable [phone] Maylin May NP Unavailable [phone] Marisa Hernandez RN Unavailable Unavailable Vilma Long MD Unavailable Yasmeen Pendleton [facility] Unavailable [phone] Cole George Unavailable Fletcher Russell Unavailable Unavailable Bautista Casey MD Unavailable [phone] Jasmyn Oliver CHW Unavailable [phone] Vika Kevin APRN AUDIT DIRECTOR Primary Care Prov ider Vika Kevin APRN [facility] Primary Care Prov ider Yasmeen Pendleton [facility] Unavailable + [phone] Vika Kevin APRN [facility] Primary Care Prov ider Reason for Visit * Reason Comments Medication Refill Encounter Details Date Type Department Care Team (Late st Contact Info) Description 09/07/[address] [phone] [place] [address] [place] [address] [phone] Medication Refill Social History Tobacco Use Types Packs/Day Years [...] on file 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 Panda Bradshaw RN Ovando Triage T SERVICES OFFICER * Telephone Encounter - Jesús Flores - 09/07/2019 3:31 PM CST Requested Prescriptions Pending Prescriptions Disp Refills ??? fluticasone (FLONASE) 50 MCG/ACT nasal spray [Pharmacy Med Name: FLUTICASONE NASAL SPRAY] Last Written Prescription Date: 06.09.19 Last Fill Quantity: 48 g, # refills: 3 Last office visit: 08/31/2019 with prescribing provider: Julito Banuelos MD Future Office Visit: Next 5 appointments (look out 90 days) Sep 12, 2019 2:00 PM GUEST SERVICES OFFICER SHORT with Susannah Blankenship [facility] ([facility]) [address] [facility] [address] [facility] [id number] Sep 23, 2019 10:50 AM GUEST SERVICES OFFICER Office Visit with [facility]uelos [facility] [address] [place] [address] [phone] 48 g 3 Sig: SPRAY TWO SPRAYS INTO BOTH NOSTRILS DAILY Inhaled Steroids Protocol Failed - 09/07/2019 1:00 PM Failed - Asthma control assessment score within normal limits in last 6 months Please review ACT score. Passed - Patient is age 12 or older Passed - Medication is active on med list Passed - Recent (6 mo) or future (30 days) visit within the authorizing provider's specialty Patient had office visit in the last 6 months or has a visit in the next 30 days with authorizing provider or within the authorizing provider's specialty. See Patient Info tab in inbasket, or Choose Columns in Meds & Orders section of the refill encounter. T SERVICES OFFICER documented in this encounter Plan of Treatment Not on file documented as of this encounter Visit Diagnoses Diagnosis Environmental allergies Allergic rhinitis, cause unspecified documented in this encounter Additional Health Concerns Infection Onset Date Last Indicated Resolved Time Rule Out COVID-19 07/25/2020 07/25/2020 07/26/2020 3:02 PM CDT Rule Out COVID-19 12/04/2020 12/04/2020 12/05/2020 6:04 PM GUEST SERVICES OFFICER Assessment Noted Time PHQ-9 Depression Total Score: 8 07/18/20 19 12:06 PM CDT documented as of this encounter Care Teams Steward/Stewardess Wine Relationship Specialty Start Date End Date Julito Banuelos MD [address] [place] [address] [phone] PCP - General Family Practice 09/12/15 09/23/21 Vika Kevin APRN AUDIT DIRECTOR [address] [place] [address] [phone] PCP - General Nurse Practitioner - Family 09/24/21 03/05/22 Vika Kevin APRN AUDIT DIRECTOR [address] [place] [address] [phone] PCP - General Nurse Practitioner - Family 03/18/22 06/18/22 Vika Kevin APRN AUDIT DIRECTOR [address] [place] [address] [phone] PCP - General Nurse Practitioner - Family 07/24/22 Julito Banuelos MD [address] [place] [address] [phone] Assigned PCP 02/17/16 07/21/[address] [place] [address] Frame Expander Dietitian, Registered 04/14/19 Mary Kay Jones [facility] Pharmacist 08/01/19 04/20/20 Susannah Blankenship, [facility] [address] [place] [address] [address] [place] [address] Pharmacist Pharmacist 08/08/19 04/15/21 Carolyn Huynh [facility] [place] [address] Pharmacist Pharmacist 06/25/20 04/15/21 Vika Kevin APRN AUDIT DIRECTOR [address] [place] [address]887 Assigned PCP 07/22/20 11/16/24 Marilyn Willard MD [address] [place] [address] 94994 Assigned Surgical Provider 08/17/20 08/16/24 Carie Varela DO [address] [place] [address] Assigned Heart and Vascular Provider 08/17/20 01/19/21 Maylin May NP [address] [place] [address] Assigned Pediatric Specialist Provider 12/16/20 06/13/22 Marisa Rodrigues, RN Clinic Medical Claims Processor 01/15/21 02/26/21 Vilma Long MD [address] [place] [address] Assigned Heart and Vascular Provider 01/20/21 07/20/21 Yasmeen Pendleton [facility] [address] [place] [address] Pharmacist Pharmacist 06/04/21 01/15/22 Cole George LISW Lead Medical Claims Processor 06/13/21 10/07/21 Fletcher Up Community Health Worker 06/13/21 09/12/21 Bautista Casey MD [address] [place] [address] Assigned Heart and Vascular Provider 07/21/21 01/16/23 Jasmyn Oliver CHW Community Health Worker 09/13/21 10/07/21 Yasmeen Pendleton [facility] [address] [place] [address] Assigned MTM Pharmacist 03/22/22 01/02/23 documented as of this encounter
--- OUTSIDE RECORDS SUMMARY | 2024-12-16 22:23 | XMS_ITS | Encounter Summary ---
Author Organization [place] Address [address] [facility] [place] [address] Care Team Providers Care District Claims Manager Name Role Phone Julito Banuelos MD Primary Care Provider [phone] Julito Banuelos MD Unavailable Aleshia Henriquez RD Unavailable Unavailable Mary Kay Jones [facility] Unavailable Unavailable Susannah Blankenship [facility] Unavailable Carolyn Huynh [facility] Unavailable [phone] Vika Kevin APRN CONTRACT RECRUITER Unavailable + Marilyn Willard MD Unavailable Carie Varela DO Unavailable [phone] Maylin May NP Unavailable [phone] Marisa Hernandez RN Unavailable Unavailable Vilma Long MD Unavailable Yasmeen Pendleton [facility] Unavailable Cole George Unavailable Fletcher Russell Unavailable Unavailable Bautista Casey MD Unavailable Jasmyn Oliver CHW Unavailable [phone] Vika Kevin APRN CONTRACT RECRUITER Primary Care Prov ider Vika Kevin APRN, CNP Primary Care Prov ider Yasmeen Pendleton [facility] Unavailable [phone] Vika Kevin APRN CONTRACT RECRUITER Primary Care Prov ider Encounter Details Date Type Department Care Team (Late st Contact Info) Description 08/16/2019 MyC Medical Advice [address] [place] [phone] Mary Kay Jones, [facility] Social History Tobacco Use Types Packs/Day Years [...] file Legal 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 PHYSICIAN PRESIDENT Gender Identity Not on file Sexual Orientation [...] COVID-19 12/04/2020 12/04/2020 12/05/2020 6:04 PM PHYSICIAN PRESIDENT Assessment Noted Time PHQ-9 Depression Total Score: 8 07/18/20 19 12:06 PM CDT documented as of this encounter Care Teams District Claims Manager Relationship Specialty Start Date End Date Julito Banuelos MD [address] [place] [phone] PCP - General Family Practice 09/12/15 09/23/21 Vika Kevin APRN [facility] [address] [place] [phone] PCP - General Nurse Practitioner - Family 09/24/21 03/05/22 Vika Kevin APRN CONTRACT RECRUITER [address] [place] [address] 69270 PCP - General Nurse Practitioner - Family 03/18/22 06/18/22 Vika Kevin APRN CONTRACT RECRUITER [address] [place] [address] [phone] PCP - General Nurse Practitioner - Family 07/24/22 Julito Banuelos MD [address] [place] [address] [phone] Assigned PCP 02/17/16 07/21/[address] [place] [address] 10715 Quality Compliance Consultant Dietitian, Registered 04/14/19 Mary Kay Jones, [facility] Pharmacist 08/01/19 04/20/20 Susannah Blankenship, [facility] [address] [place] [address] [address] [place] [address] Pharmacist Pharmacist 08/08/19 04/15/21 Carolyn Huynh [facility] [address] [place], [place] 648017 Pharmacist Pharmacist 06/25/20 04/15/21 Vika Kevin APRN CONTRACT RECRUITER [address] [place] [address] Assigned PCP 07/22/20 11/16/24 Marilyn Willard MD [address] [facility] [address] [place] [address] Assigned Surgical Provider 08/17/20 08/16/24 Carie Varela DO [address] [place] [address] Assigned Heart and Vascular Provider 08/17/20 01/19/21 Maylin May, JENNY [address] [place], [place] [phone] Assigned Pediatric Specialist Provider 12/16/20 06/13/22 Marisa Rodrigues RN Clinic Car Porter 01/15/21 02/26/21 Vilma Long MD [address] [place] [address] Assigned Heart and Vascular Provider 01/20/21 07/20/21 Yasmeen Pendleton [facility] [address] [place] [address] Pharmacist Pharmacist 06/04/21 01/15/22 Cole George LISW Lead Car Porter 06/13/21 10/07/21 Fletcher Up Community Health Worker 06/13/21 09/12/21 Bautista Casey MD [address] [place] [address] Assigned Heart and Vascular Provider 07/21/21 01/16/23 Jasmyn Oliver CHW Community Health Worker 09/13/21 10/07/21 Yasmeen Pendleton [facility] [address] [place] [address] Assigned MTM Pharmacist 03/22/22 01/02/23 documented as of this encounter
--- OUTSIDE RECORDS SUMMARY | 2024-12-16 22:23 | XMS_ITS | Encounter Summary ---
Author Organization [place] Address [address] [facility] [place] [address] Care Team Providers Care Shop Tailor Apprentice Name Role Phone Aleshia Henriquez RD Unavailable Unavailable Vika Kevin APRN BRAIDING 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 Unavailable + Marilyn Willard MD Unavailable Bautista Casey MD Unavailable MandYasmeen barreto [facility] Unavailable Vika Kevin APRN BRAIDING 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 Primary Care Prov ider Reason for Visit * Reason Onset Date Comments Forms 09/08/2022 [facility] Encounter Details Date Type Department Care Team (Late st Contact Info) Description 09/08/[address] [phone] Julito Banuelos MD [address] [place] [address] Forms ([facility]) Social History Tobacco Use Types Packs/Day Years [...] and Family Not on file 06/14/2021 Attends Baptism Services Not on file 06/14 Active Member [...] place to sleep or slept in a [facility] (including now)? 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 We are no longer PCP here. [facility] Vika C. Kevin, SERVICE CAPTAIN-BC ACIC MEDICINE SPECIALIST * Telephone Encounter - Julito Banuelos MD - 09/09/2022 8:47 PM CST Please send forms to current PCP ACIC MEDICINE SPECIALIST * Telephone Encounter - Maylin Diaz - 09/08/2022 7:12 PM CST Reason for Call: Form, our goal is to have forms completed with 72 hours, however, some forms may require a visit or additional information. Type of letter, form or note: medical Who is the form from?: Home care Where did the form come from: form was faxed in What clinic location was the form placed at?: [facility] Where the form was placed: Dr Banuelos Box/Folder What number is listed as a contact on the form?: [phone] Call taken on 09/08/2022 at 7:12 PM by Maylin Diaz ACIC MEDICINE SPECIALIST documented in this encounter Plan of Treatment Not on file documented as of this encounter Visit Diagnoses Not on filedocumented in this encounter Additional Health Concerns Assessment Noted Time PHQ-9 Depression Total Score: 10 04/29/ 021 3:56 PM CDT documented as of this encounter Care Teams Shop Tailor Apprentice Relationship Specialty Start Date End Date Vika Kevin APRN BRAIDING 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 [address] [place] [address] PCP - General Nurse Practitioner - Family 07/24/[address] Officer Lieutenant Dietitian, Registered 04/14/19 Vika Kevin APRN BRAIDING 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 [address] [place] [address] Assigned PCP 07/22/20 11/16/24 Marilyn Willard MD [address] [facility] [address] [place] [address] Assigned Surgical Provider 08/17/20 08/16/24 Bautista Casey MD [address] [place], [place] 854145 Assigned Heart and Vascular Provider 07/21/21 01/16/23 Yasmeen Pendleton [facility] [address] [place] [address] [phone] Assigned MTM Pharmacist 03/22/22 01/02/23 documented as of this encounter
--- OUTSIDE RECORDS SUMMARY | 2024-12-16 22:23 | XMS_ITS | Encounter Summary ---
Author Organization [place] Address [address] [facility]. [address] Care Team Providers Care Automobile Glass Technician Name Role Phone Julito Banuelos MD Primary Care Provider [phone] Julito Banuelos MD Unavailable Aleshia Henriquez RD Unavailable Unavailable Mary Kay Jones [facility] Unavailable Unavailable Susannah Blankenship [facility] Unavailable Carolyn Huynh [facility] Unavailable [phone] Vika Kevin APRN COTTAGE SUPERVISOR Unavailable + Marilyn Willard MD Unavailable [phone] Carie Varela DO Unavailable [phone] Maylin May NP Unavailable [phone] Marisa Hernandez RN Unavailable Unavailable Vilma Long MD Unavailable Yasmeen Pendleton [facility] Unavailable oCle George Unavailable Fletcher Russell Unavailable Unavailable Bautista Casey MD Unavailable Jasmyn Oliver CHW Unavailable [phone] Vika Kevin APRN COTTAGE SUPERVISOR Primary Care Prov ider Vika Kevin APRN [facility] Primary Care Prov ider Yasmeen Pendleton [facility] Unavailable + [phone] Vika Kevin APRN [facility] Primary Care Prov ider Reason for Visit * Reason Onset Date Comments Refill Request 09/22/2019 Encounter Details Date Type Department Care Team (Late st Contact Info) Description 09/22/2019 MyC Refill [facility] [address] [place] [phone] Carie Varela DO [address] [place], [place] [address] Refill Request Social History Tobacco Use Types [...] on file Legal 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 GLAZE WIPER Gender Identity Not on file Sexual Orientation Not on file Occupation Industry Job Start Date Job End Date Not on file Not on file Not on file Not on file documented as of this encounter Plan of Treatment Not on file documented as of this encounter Visit Diagnoses Diagnosis Hypertension goal BP (blood pressure) < 140/90 Unspecified essential hypertension Coronary artery disease involving [place] coronary artery of [place] heart without angina pectoris documented in this encounter Additional Health Concerns Infection Onset Date Last Indicated Resolved Time Rule Out COVID-19 07/25/2020 07/25/2020 07/26/2020 3:02 PM CDT Rule Out COVID-19 12/04/2020 12/04/2020 12/05/2020 6:04 PM GLAZE WIPER Assessment Noted Time PHQ-9 Depression Total Score: 8 07/18/20 19 12:06 PM CDT documented as of this encounter Care Teams Automobile Glass Technician Relationship Specialty Start Date End Date Julito Banuelos MD [address] [place] [address] PCP - General Family Practice 09/12/15 09/23/21 Vika Kevin APRN COTTAGE SUPERVISOR [address] [place] [address] 434202 PCP - General Nurse Practitioner - Family 09/24/21 03/05/22 Vika Kevin APRN COTTAGE SUPERVISOR [address] [place] [address] 555262 PCP - General Nurse Practitioner - Family 03/18/22 06/18/22 Vika Kevin APRN COTTAGE SUPERVISOR [address] [place] [address] [phone] PCP - General Nurse Practitioner - Family 07/24/22 Julito Banuelos MD [address] [place] [address] [phone] Assigned PCP 02/17/16 07/21/[address] [place] [address]816 Epic Application Coordinator Dietitian, Registered 04/14/19 Mary Kay Jones [facility] Pharmacist 08/01/19 04/20/20 Susannah Blankenship [facility] [address] [place] [address] 8[address] [place], [place] [phone] Pharmacist Pharmacist 08/08/19 04/15/21 Carolyn Huynh [facility] [address] [place], [place] 3039[address] Pharmacist Pharmacist 06/25/20 04/15/21 KevinVikalotte, FOOD PROCESSING CHEMIST COTTAGE SUPERVISOR [address] [place], [place] 0[address] Assigned PCP 07/22/20 11/16/24 Marilyn Willard MD [address] [facility] [address] [place], [place] 064[address] Assigned Surgical Provider 08/17/20 08/16/24 Carie Varela DO [address] [place] [address] Assigned Heart and Vascular Provider 08/17/20 01/19/21 Maylin May NP [address] [place], [place] [phone] Assigned Pediatric Specialist Provider 12/16/20 06/13/22 Marisa Rodrigues, RN Clinic Matrix Repairer 01/15/21 02/26/21 Vilma Long MD [address] [place] [address] Assigned Heart and Vascular Provider 01/20/21 07/20/21 Yasmeen Pendleton [facility] [address] [place] [address] Pharmacist Pharmacist 06/04/21 01/15/22 Cole George LISW Lead Matrix Repairer 06/13/21 10/07/21 Fletcher Up Community Health Worker 06/13/21 09/12/21 Bautista Casey MD [address] [place] [address] Assigned Heart and Vascular Provider 07/21/21 01/16/23 Jasmyn Oliver CHW Community Health Worker 09/13/21 10/07/21 Yasmeen Pendleton [facility] [address] [place] [address] Assigned MTM Pharmacist 03/22/22 01/02/23 documented as of this encounter
--- OUTSIDE RECORDS SUMMARY | 2024-12-16 22:23 | XMS_ITS | Encounter Summary ---
Author Organization [facility] Address [address] [facility] [facility] [place] [address] Care Team Providers Care Quality Engineering Manager Name Role Phone Andrew Lu MD Primary Care Provider [phone] Niko Resendiz MD Primary Care Provider Carlie Mac MD Primary Care Provide r Angella Mendieta MD Primary Care Provider Julito Banuelos MD Primary Care Provider [phone] Julito Banuelos MD Unavailable Julito Banuelos MD Unavailable Aleshia Henriquez RD Unavailable Unavailable Mary Kay Jones [facility] Unavailable Unavailable Susannah Blankenship [facility] Unavailable +[phone] Carolyn Huynh [facility] Unavailable [phone] Vika Kevin APRN ENGINEER STEAM Unavailable + Marilyn Willard MD Unavailable [phone] Carie Varela DO Unavailable [phone] Maylin May NP Unavailable [phone] Marisa Rodrigues RN Unavailable Unavailable Vilma Long MD Unavailable + [phone] Yasmeen Pendleton [facility] Unavailable + [phone] Cole George Unavailable Fletcher Russell Unavailable Unavailable Bautista Casey MD Unavailable [phone] Jasmyn Oliver [facility] Unavailable [phone] Vika Kevin APRN [facility] Primary Care Prov ider Vika Kevin APRN [facility] Primary Care Prov ider Yasmeen Pendleton [facility] Unavailable [phone] Vika Kevin APRN [facility] Primary Care Prov ider Reason for Referral * Referral not Required - Closed Specialty Diagnoses / Procedures Referred By Contkateryna t Referred To Contact Diagnoses CAD (coronary artery disease) Andrew Lu MD XXX RETIRED XXX [address] [place] [phone] Phone: tel: fax: [facility] [address] [facility] [address] [place] [address] Phone: tel: fax: Referral ID Status Reason Start Date Expiration Date Visits Re quested Visits Authorized [id number] Closed 01/11/2013 07/10/2013 1 1 Comments Your provider has referred you to: [facility]: [facility] Heart Karen [phone] Please be aware that coverage of these services is subject to the terms and limitations of your health insurance plan. Call member services at your health plan with any benefit or coverage questions. Type of Referral: New Cardiology consult Timeframe requested: within 1 month Please bring the following to your appointment: >> Any x-rays, CTs or MRIs which have been performed. Contact the facility where they were done to arrange for pick pack worker prior to your scheduled appointment. Any new CT, MRI or other procedures ordered by your specialist must be performed at a [facility] facility or coordinated by your clinic's referral office. >> List of current medications >> This referral request >> Any documents/labs given to you for this referral Reason for Visit * Reason Onset Date Comments Referral 01/11/2013 Encounter Details Date Type Department Care Team (Late st Contact Info) Description 01/11/2013 MyC Medical Advice [address] [phone] Andrew Lu MD XXX RETIRED XXX [address] [place] [phone] Referral Social History Tobacco Use Types Packs/Day Years Used Date Smoking Tobacco: Former Cigarettes 0.3 15 0 10/26/1961 - 10/26/1976 Smokeless Tobacco: Never Alcohol Use Standard Drinks/Week Comments Yes 0 (1 standard drink = 0.6 oz pur e alcohol) 1-2 glasses of wine weekly Comments No Sex and Gender Information Value Date Recorded Sex Assigned at Not on file Legal 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 ALL SOURCE INTELLIGENCE ANALYST Gender Identity Not on file Sexual Orientation Not on file Occupation Industry Job Start Date Job End Date Not on file Not on file Not on file Not on file documented as of this encounter Plan of Treatment Scheduled Referrals Name Type Priority Associated Diagnoses Orde r Schedule CARDIOLOGY EVAL ADULT REFERRAL Referral Routine CAD (coronary artery disease) Ordered: 01/11/2013 documented as of this encounter Visit Diagnoses Diagnosis CAD (coronary artery disease)- Primary Coronary atherosclerosis of unspecified type of vessel, [place] or graft documented in this encounter Additional Health Concerns Infection Onset Date Last Indicated Resolved Time Rule Out COVID-19 07/25/2020 07/25/2020 07/26/2020 3:02 PM CDT Rule Out COVID-19 12/04/2020 12/04/2020 12/05/2020 6:04 PM ALL SOURCE INTELLIGENCE ANALYST documented as of this encounter Care Teams Quality Engineering Manager Relationship Specialty Start Date End Date Andrew Lu MD XXX RETIRED XXX [address] [place] [phone] PCP - General 12/10/01 01/10/14 Niko Resendiz MD [address] [address] PCP - General Internal Medicine 01/11/14 01/29/14 Carlie Mac MD [address] [place] [address] PCP - General Pediatrics 01/30/14 07/17/15 Angella Mendieta MD [address] [place] [address] PCP - General Family Practice 07/18/15 09/11/15 Julito Banuelos MD [address] [place] [address] PCP - General Family Practice 09/12/15 09/23/21 Julito Banuelos MD [address] [place] [address] PCP - Assigned PCP 02/17/16 12/28/18 Vika Kevin APRN ENGINEER STEAM [address] [place] [address] PCP - General Nurse Practitioner - Family 09/24/21 03/05/22 Vika Kevin APRN ENGINEER STEAM [address] [place] [address]191 PCP - General Nurse Practitioner - Family 03/18/22 06/18/22 Vika Kevin APRN ENGINEER STEAM [address] [place] [address] [phone] PCP - General Nurse Practitioner - Family 07/24/22 Julito Banuelos MD [address] [place] [address] [id number] Assigned PCP 02/17/16 07/21/20 Aleshia Henriquez, DAVE [address] [place] [address] Rcp Dietitian, Registered 04/14/19 Mary Kay Jones, [facility] Pharmacist 08/01/19 04/20/20 Susannah Blankenship, [facility] [address] [place] [address] [address] [place], [place] [address] Pharmacist Pharmacist 08/08/19 04/15/21 [facility] [address] [place], [place] [address] Pharmacist Pharmacist 06/25/20 04/15/21 Vika Kevin APRN ENGINEER STEAM [address] [place] [address] [phone] Assigned PCP 07/22/20 11/16/24 Marilyn Willard MD [address] [place] [address] [address] [place], [place] 8065[address] Assigned Surgical Provider 08/17/20 08/16/24 Carie Varela DO [address] [place], [place] [address] Assigned Heart and Vascular Provider 08/17/20 01/19/21 Maylin May NP [address] [place] [address] Assigned Pediatric Specialist Provider 12/16/20 06/13/22 Marisa Rodrigues, RN Clinic Office Bookkeeper 01/15/21 02/26/21 Vilma Long MD [address] [place] [address] Assigned Heart and Vascular Provider 01/20/21 07/20/21 Yasmeen Pendleton [facility] [address] [place] [address] Pharmacist Pharmacist 06/04/21 01/15/22 Cole George LISW Lead Office Bookkeeper 06/13/21 10/07/21 Fletcher Up Community Health Worker 06/13/21 09/12/21 Bautista Casey MD [address] [place] [address] Assigned Heart and Vascular Provider 07/21/21 01/16/23 Jasmyn Oliver CHW Community Health Worker 09/13/21 10/07/21 Yasmeen Pendleton [facility] [address] [place], [place] [address] Assigned MTM Pharmacist 03/22/22 01/02/23 documented as of this encounter
--- OUTSIDE RECORDS SUMMARY | 2024-12-16 22:23 | XMS_ITS | Encounter Summary ---
Author Organization [facility] Address [address] [place] [address] Care Team Providers Care Public Accountant Name Role Phone Julito Banuelos MD Primary Care Provider [phone] Julito Banuelos MD Unavailable Aleshia Henriquez RD Unavailable Unavailable Mary Kay Jones [facility] Unavailable Unavailable Susannah Blankenship [facility] Unavailable Carolyn Huynh [facility] Unavailable [phone] Vika Kevin APRN COMPANY DOCTOR Unavailable + Marilyn Willard MD Unavailable Carie Varela DO Unavailable [phone] Maylin May NP Unavailable [phone] Marisa Hernandez RN Unavailable Unavailable Vilma Long MD Unavailable Yasmeen Pendleton [facility] Unavailable Cole George Unavailable Fletcher Russell Unavailable Unavailable Bautista Casey MD Unavailable [phone] Jasmyn Oliver [facility] Unavailable [phone] Vika Kevin APRN COMPANY DOCTOR Primary Care Prov ider Vika Kevin APRN [facility] Primary Care Prov ider Yasmeen Pendleton [facility] Unavailable + [phone] Vika Kevin APRN [facility] Primary Care Prov ider Reason for Visit * Reason Comments Medication Refill Encounter Details Date Type Department Care Team (Late st Contact Info) Description 02/23/[address] [phone] [place] [address] [place] [address] Medication Refill Social History Tobacco Use Types [...] on file Legal 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 FINISHER COLD ROLLING Gender Identity Not on file Sexual Orientation Not on file Occupation Industry Job Start Date Job End Date Not on file Not on file Not on file Not on file COVID-19 Exposure Response Date Recorded In the last month, have you been in contact with someone who was confirmed or suspected to have Coronavirus / COVID-19? No / Unsure 02/24/2020 11:50 AM CDT documented as of this encounter Miscellaneous Notes * Telephone Encounter - Nazanin Zhong RN - 02/23/2020 10:59 AM CDT Routing refill request to provider for review/approval because: Age Range Nazanin Zhong RN [facility] documented in this encounter Plan of Treatment Not on file documented as of this encounter Visit Diagnoses Diagnosis Environmental allergies Allergic rhinitis, cause unspecified Rash and nonspecific skin eruption Rash and other nonspecific skin eruption documented in this encounter Additional Health Concerns Infection Onset Date Last Indicated Resolved Time Rule Out COVID-19 07/25/2020 07/25/2020 07/26/2020 3:02 PM CDT Rule Out COVID-19 12/04/2020 12/04/2020 12/05/2020 6:04 PM FINISHER COLD ROLLING Assessment Noted Time PHQ-9 Depression Total Score: 8 07/18/20 19 12:06 PM CDT documented as of this encounter Care Teams Public Accountant Relationship Specialty Start Date End Date Julito Banuelos MD [address] [place] [address] PCP - General Family Practice 09/12/15 09/23/21 Vika Kevin APRN COMPANY DOCTOR [address] [place] [address] PCP - General Nurse Practitioner - Family 09/24/21 03/05/22 Vika Kevin APRN COMPANY DOCTOR [address] [place] [address] PCP - General Nurse Practitioner - Family 03/18/22 06/18/22 Vika Kevin APRN COMPANY DOCTOR [address] [place] [address] PCP - General Nurse Practitioner - Family 07/24/22 Julito Banuelos MD [address] [place] [address] Assigned PCP 02/17/16 07/21/[address] [place] [address] [employer] P8 Developer Dietitian, Registered 04/14/19 Mary Kay Jones, [facility] Pharmacist 08/01/19 04/20/20 Susannah Blankenship, [facility] [address] [facility] [address] [place], [place] [address] Pharmacist Pharmacist 08/08/19 04/15/21 Carolyn Huynh, [facility] [address] [place] [address] Pharmacist Pharmacist 06/25/20 04/15/21 Vika Kevin, UTILITY ENGINEER COMPANY DOCTOR [address] [place] [address] [id number] Assigned PCP 07/22/20 11/16/24 Marilyn Willard MD [address] [facility] [address] [place], [place] [address] Assigned Surgical Provider 08/17/20 08/16/24 Carie Varela DO [address] [place] [address] Assigned Heart and Vascular Provider 08/17/20 01/19/21 Maylin May NP [address] [place], [place] [id number] Assigned Pediatric Specialist Provider 12/16/20 06/13/22 Marisa Rodrigues, RN Clinic Steel Die Printer 01/15/21 02/26/21 Vilma Long MD [address] [place] [id number] Assigned Heart and Vascular Provider 01/20/21 07/20/21 Yasmeen Pendleton, [facility] [address] [place] [address] Pharmacist Pharmacist 06/04/21 01/15/22 Cole George LISW Lead Steel Die Printer 06/13/21 10/07/21 Fletcher Up Community Health Worker 06/13/21 09/12/21 Bautista Casey MD [address] [place] [address] Assigned Heart and Vascular Provider 07/21/21 01/16/23 Jasmyn Oliver CHW [facility] Health Worker 09/13/21 10/07/21 Yasmeen Pendleton [facility] [address] [place] [address] Assigned MTM Pharmacist 03/22/22 01/02/23 documented as of this encounter
--- OUTSIDE RECORDS SUMMARY | 2024-12-16 22:23 | XMS_ITS | Encounter Summary ---
Author Organization [facility] Address [address] [place] [address] Care Team Providers Care Account Manager Sales Representative Name Role Phone Julito Banuelos MD Primary Care Provider [phone] Julito Banuelos MD Unavailable Aleshia Henriquez RD Unavailable Unavailable Mary Kay Jones [facility] Unavailable Unavailable Susannah Blankenship [facility] Unavailable Carolyn Huynh [facility] Unavailable [phone] Vika Kevin APRN RUG CLEANER HELPER Unavailable + Marilyn Willard MD Unavailable Carie Varela DO Unavailable [phone] Maylin May NP Unavailable [phone] Marisa Hernandez RN Unavailable Unavailable Vilma Long MD Unavailable Yasmeen Pendleton [facility] Unavailable Cole George Unavailable Fletcher Russell Unavailable Unavailable Bautista Casey MD Unavailable Jasmyn Oliver CH[facility] Unavailable [phone] Vika Kevin APRN RUG CLEANER HELPER Primary Care Prov ider Vika Kevin APRN [facility] Primary Care Prov ider Yasmeen Pendleton [facility] Unavailable + [phone] Vika Kevin APRN [facility] Primary Care Prov ider Reason for Visit * Reason Onset Date Comments Refill Request 09/12/2019 Encounter Details Date Type Department Care Team (Late st Contact Info) Description 09/12/2019 MyC Refill [facility] [address] [facility] [address] [place] [phone] Carie Varela DO [address] [place], [place] [address] Refill Request Social History Tobacco Use Types [...] on file Legal 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 TOOLMAN Gender Identity Not on file Sexual Orientation Not on file Occupation Industry Job Start Date Job End Date Not on file Not on file Not on file Not on file documented as of this encounter Plan of Treatment Not on file documented as of this encounter Visit Diagnoses Diagnosis Hypertension goal BP (blood pressure) < 140/90 Unspecified essential hypertension 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 documented in this encounter Additional Health Concerns Infection Onset Date Last Indicated Resolved Time Rule Out COVID-19 07/25/2020 07/25/2020 07/26/2020 3:02 PM CDT Rule Out COVID-19 12/04/2020 12/04/2020 12/05/2020 6:04 PM TOOLMAN Assessment Noted Time PHQ-9 Depression Total Score: 8 07/18/20 19 12:06 PM CDT documented as of this encounter Care Teams Account Manager Sales Representative Relationship Specialty Start Date End Date Julito Banuelos MD [address] [place] [address] PCP - General Family Practice 09/12/15 09/23/21 Vika Kevin APRN RUG CLEANER HELPER [address] [place] [address] 500552 PCP - General Nurse Practitioner - Family 09/24/21 03/05/22 Vika Kevin APRN RUG CLEANER HELPER [address] [place] [address] [phone] PCP - General Nurse Practitioner - Family 03/18/22 06/18/22 Vika Kevin APRN RUG CLEANER HELPER [address] [place] [address] 455322 PCP - General Nurse Practitioner - Family 07/24/22 Julito Banuelos MD [address] [place] [address] 180232 Assigned PCP 02/17/16 07/21/[address] [place] [address] Power Chisel Operator Dietitian, Registered 04/14/19 Mary Kay Jones [facility] Pharmacist 08/01/19 04/20/20 Susannah Blankenship [facility] [address] [place] [address] [address] [place], [place] [address] Pharmacist Pharmacist 08/08/19 04/15/21 Carolyn Huynh [facility] [address] [place], [place] [address] Pharmacist Pharmacist 06/25/20 04/15/21 KevinVikalotte, TITLE I PARAPROFESSIONAL RUG CLEANER HELPER [address] [place], [place] [address]39[address] Assigned PCP 07/22/20 11/16/24 Marilyn Willard MD 420 [facility] [address] [place], [place] [address] Assigned Surgical Provider 08/17/20 08/16/24 Carie Varela DO [address] [place] [address] Assigned Heart and Vascular Provider 08/17/20 01/19/21 Maylin May NP [address] [place], [place] [id number] Assigned Pediatric Specialist Provider 12/16/20 06/13/22 Marisa Rodrigues, RN Clinic Gambreler Helper 01/15/21 02/26/21 Vilma Long MD [address] [place] [address] Assigned Heart and Vascular Provider 01/20/21 07/20/21 Yasmeen Pendleton [facility] [address] [place] [address] Pharmacist Pharmacist 06/04/21 01/15/22 Cole George LISW Lead Gambreler Helper 06/13/21 10/07/21 Fletcher Up Community Health Worker 06/13/21 09/12/21 Bautista Casey MD [address] [place] [address] Assigned Heart and Vascular Provider 07/21/21 01/16/23 Jasmyn Oliver CHW Community Health Worker 09/13/21 10/07/21 Yasmeen Pendleton [facility] [address] [place] [address] Assigned MTM Pharmacist 03/22/22 01/02/23 documented as of this encounter
--- OUTSIDE RECORDS SUMMARY | 2024-12-16 22:23 | XMS_ITS | Encounter Summary ---
Author Organization [place] Address [address] [facility] [place] [address] Care Team Providers Care Newcomer Hostess Name Role Phone Andrew Lu MD Primary Care Provider [phone] Niko Resendiz MD Primary Care Provider Carlie Mac MD Primary Care Provide r Angella Mendieta MD Primary Care Provider Julito Banuelos MD Primary Care Provider [phone] Julito Banuelos MD Unavailable Julito Banuelos MD Unavailable Aleshia Henriquez RD Unavailable Unavailable Mary Kay Jones [facility] Unavailable Unavailable Susannah Blankenship [facility] Unavailable [phone] Carolyn Huynh [facility] Unavailable [phone] LIGHT LAMP CLEANER Unavailable + Marilyn Willard MD Unavailable [phone] Carie Varela DO Unavailable [phone] Maylin May NP Unavailable [phone] Marisa Rodrigues RN Unavailable Unavailable Vilma Long MD Unavailable + [phone] Yasmeen Pendleton [facility] Unavailable [phone] Cole George Unavailable Fletcher Russell Unavailable Unavailable Bautista Casey MD Unavailable AnnyJasmyn tracey [facility] Unavailable [phone] Vika Kevni APRN [facility] Primary Care Prov ider Vika Kevin APRN [facility] Primary Care Prov ider Yasmeen Pendleton [facility] Unavailable [phone] [facility] Primary Care Prov ider Encounter Details Date Type Department Care Team (Late st Contact Info) Description 06/28/2013 MyC Medical Advice [address] [phone] Denis Rojas MD [address] [place] [phone] Social History Tobacco Use Types Packs/Day Years Used Date Smoking Tobacco: Former Cigarettes 0.3 15 0 10/26/1961 - 10/26/1976 Smokeless Tobacco: Never Alcohol Use Standard Drinks/Week Comments Yes 0 (1 standard drink = 0.6 oz pur e alcohol) 1-2 glasses of wine weekly Comments No Sex and Gender Information Value Date Recorded Sex Assigned at Not on file Legal 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 TRANSFORMATION COACH Gender Identity Not on file Sexual Orientation [...] Out COVID-19 12/04/2020 12/04/2020 12/05/2020 6:04 PM TRANSFORMATION COACH documented as of this encounter Care Teams Newcomer Hostess Relationship Specialty Start Date End Date Andrew Lu MD XXX RETIRED XXX [address] [place] [phone] PCP - General 12/10/01 01/10/14 Niko Resendiz MD [address] [place] [address] PCP - General Internal Medicine 01/11/14 01/29/14 Carlie Mac MD [address] [place] [address] PCP - General Pediatrics 01/30/14 07/17/15 Angella Mendieta MD [address] [place] [address] PCP - General Family Practice 07/18/15 09/11/15 Julito Banuelos MD [address] [place] [address] PCP - General Family Practice 09/12/15 09/23/21 Julito Banuelos MD [address] [place] [address] 24537 PCP - Assigned PCP 02/17/16 12/28/[address]RE[address] LIGHT LAMP CLEANER [address] [place] [address] PCP - General Nurse Practitioner - Family 09/24/21 03/05/[address] LIGHT LAMP CLEANER [address] [place] [address] PCP - General Nurse Practitioner - Family 03/18/22 06/18/[address] LIGHT LAMP CLEANER [address] [place] [address] 849402 PCP - General Nurse Practitioner - Family 07/24/22 Julito Banuelos MD [address] [place] [address] 340242 Assigned PCP 02/17/16 07/21/[address] [place] [address] Carpenter Cradle [employer] Dolly Dietitian, Registered 04/14/19 Mary Kay Jones, [facility] Pharmacist 08/01/19 04/20/20 Susannah Blankenship, [facility] [address] [facility] [address] [place], [place] [address] Pharmacist Pharmacist 08/08/19 04/15/21 Carolyn Huynh, [facility] [address] [place], [place] [address] Pharmacist Pharmacist 06/25/20 04/15/21 Vika Kevin, JAIME STRE[address] LIGHT LAMP CLEANER [address] [place] [address] [phone] Assigned PCP 07/22/20 11/16/24 Marilyn Willard MD 420 [facility] [address] [place], [place] [address] Assigned Surgical Provider 08/17/20 08/16/24 Carie Varela DO [address] [place] [address] Assigned Heart and Vascular Provider 08/17/20 01/19/21 Maylin May NP [address] [facility] [place] [address] Assigned Pediatric Specialist Provider 12/16/20 06/13/22 Marisa Rodrigues, RN Clinic Business Development Coordinator 01/15/21 02/26/21 Vilma Long MD [address] [place] [address] Assigned Heart and Vascular Provider 01/20/21 07/20/21 [facility] [address] [place] [address] Pharmacist Pharmacist 06/04/21 01/15/22 Cole George LISW Lead Business Development Coordinator 06/13/21 10/07/21 Fletcher Up Community Health Worker 06/13/21 09/12/21 Bautista Casey MD [address] [place] [address] Assigned Heart and Vascular Provider 07/21/21 01/16/23 Jasmyn Oliver CHW Community Health Worker 09/13/21 10/07/21 [facility] [address] [place] [address] Assigned MTM Pharmacist 03/22/22 01/02/23 documented as of this encounter
--- OUTSIDE RECORDS SUMMARY | 2024-12-16 22:23 | XMS_ITS | Encounter Summary ---
Author Organization [place] Address [address] [facility] [place] [address] Care Team Providers Care Aircraft Stress Analyst Name Role Phone Julito Banuelos MD Primary Care Provider [phone] Julito Banuelos MD Unavailable Aleshia Henriquez RD Unavailable Unavailable Mary Kay Jones [facility] Unavailable Unavailable Susannah Blankenship [facility] Unavailable Carolyn Huynh [facility] Unavailable [phone] Vika eKvin APRN ACCOUNTING REPRESENTATIVE Unavailable + Marilyn Willard MD Unavailable [phone] Carie Varela DO Unavailable +[phone] Maylin May NP Unavailable [phone] Marisa Hernandez RN Unavailable Unavailable Vilma Long MD Unavailable Yasmeen Pendleton [facility] Unavailable [phone] Cole George Unavailable Fletcher Russell Unavailable Unavailable Bautista Casey MD Unavailable Jasmyn Oliver CHW Unavailable [phone] Vika Kevin APRN ACCOUNTING REPRESENTATIVE Primary Care Prov ider Vika Kevin APRN [facility] Primary Care Prov ider Yasmeen Pendleton [facility] Unavailable + [phone] Vika Kevin APRN [facility] Primary Care Prov ider Reason for Visit * Reason Onset Date Comments Refill Request 09/22/2019 Encounter Details Date Type Department Care Team (Late st Contact Info) Description 09/22/2019 MyC Refill [facility] [address] [place] [phone] Carie Varela DO [address] [place], [place] [address] Refill Request Social History Tobacco Use Types [...] on file Legal 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 DECK SUPERVISOR Gender Identity Not on file Sexual Orientation Not on file Occupation Industry Job Start Date Job End Date Not on file Not on file Not on file Not on file documented as of this encounter Plan of Treatment Not on file documented as of this encounter Visit Diagnoses Diagnosis Coronary artery disease involving [place] coronary artery of [place] heart without angina pectoris Unstable angina (H) Intermediate coronary syndrome documented in this encounter Additional Health Concerns Infection Onset Date Last Indicated Resolved Time Rule Out COVID-19 07/25/2020 07/25/2020 07/26/2020 3:02 PM CDT Rule Out COVID-19 12/04/2020 12/04/2020 12/05/2020 6:04 PM DECK SUPERVISOR Assessment Noted Time PHQ-9 Depression Total Score: 8 07/18/20 19 12:06 PM CDT documented as of this encounter Care Teams Aircraft Stress Analyst Relationship Specialty Start Date End Date Julito Banuelos MD [address] [place] [address] PCP - General Family Practice 09/12/15 09/23/21 Vika Kevin APRN ACCOUNTING REPRESENTATIVE [address] [place] [address] PCP - General Nurse Practitioner - Family 09/24/21 03/05/22 Vika Kevin APRN ACCOUNTING REPRESENTATIVE [address] [place] [address]10 PCP - General Nurse Practitioner - Family 03/18/22 06/18/22 Vika Kevin APRN ACCOUNTING REPRESENTATIVE [address] [place] [address]69 PCP - General Nurse Practitioner - Family 07/24/22 Julito Banuelos MD [address] [place] [address] Assigned PCP 02/17/16 07/21/[address] [place] [address] Seat Joiner Dietitian, Registered 04/14/19 Mary Kay Jones [facility] Pharmacist 08/01/19 04/20/20 Susannah Blankenship [facility] [address] [place] [address] [address] [place] [address] Pharmacist Pharmacist 08/08/19 04/15/21 Carolyn Huynh [facility] [address] [place] [address] Pharmacist Pharmacist 06/25/20 04/15/21 Vika Kevin, CREDIT ADJUSTER ACCOUNTING REPRESENTATIVE [address] [place], [place] [address] Assigned PCP 07/22/20 11/16/24 Marilyn Willard MD [address] [facility] [address] [place], [place] [address] Assigned Surgical Provider 08/17/20 08/16/24 Carie Varela DO [address] [place] [address] Assigned Heart and Vascular Provider 08/17/20 01/19/21 Maylin May NP [address] [place], [place] [id number] Assigned Pediatric Specialist Provider 12/16/20 06/13/22 Marisa Rodrigues, RN Clinic Truck Body Builder Apprentice 01/15/21 02/26/21 Vilma Long MD [address] [place] [address] Assigned Heart and Vascular Provider 01/20/21 07/20/21 Yasmeen Pendleton [facility] [address] [place] [address] Pharmacist Pharmacist 06/04/21 01/15/22 Cole George LISW Lead Truck Body Builder Apprentice 06/13/21 10/07/21 Fletcher Up Community Health Worker 06/13/21 09/12/21 Bautista Casey MD [address] [place] [address] Assigned Heart and Vascular Provider 07/21/21 01/16/23 Jasmyn Oliver CHW Community Health Worker 09/13/21 10/07/21 Yasmeen Pendleton, [facility] [address] [place], [place] [address] Assigned MTM Pharmacist 03/22/22 01/02/23 documented as of this encounter
--- OUTSIDE RECORDS SUMMARY | 2024-12-16 22:23 | XMS_ITS | Encounter Summary ---
Author Organization [facility] Address [address] [facility] [place] [address] Care Team Providers Care Pharmacy Manager Name Role Phone Andrew Lu MD Primary Care Provider [phone] Niko Resendiz MD Primary Care Provider Carlie Mac MD Primary Care Provide r Angella Mendieta MD Primary Care Provider Julito Banuelos MD Primary Care Provider [phone] Julito Banuelos MD Unavailable Julito Banuelos MD Unavailable Aleshia Henriquez RD Unavailable Unavailable Mary Kay Jones [facility] Unavailable Unavailable Susannah Blankenship [facility] Unavailable [phone] Carolyn Huynh [facility] Unavailable [phone] Vika Kevin APRN DOCUMENTATION SPECIALIST Unavailable + Marilyn Willard MD Unavailable [phone] Carie Varela DO Unavailable [phone] Maylin May NP Unavailable [phone] Marisa Rodrigues RN Unavailable Unavailable Vilma Long MD Unavailable + [phone] Yasmeen Pendleton [facility] Unavailable + [phone] Cole George Unavailable Fletcher Russell Unavailable Unavailable Bautista Casey MD Unavailable [phone] DemetriusJasmyn wright [facility] Unavailable [phone] Vika Kevin APRN [facility] Primary Care Prov ider Vika Kevin APRN [facility] Primary Care Prov ider Yasmeen Pendleton [facility] Unavailable + [phone] Vika Kevin APRN [facility] Primary Care Prov ider Encounter Details Date Type Department Care Team (Late st Contact Info) Description 09/28/[address] [phone] Veronica [facility] Social History Tobacco Use Types Packs/Day Years Used Date Smoking Tobacco: Former Cigarettes 0.3 15 0 10/26/1961 - 10/26/1976 Smokeless Tobacco: Never Alcohol Use Standard Drinks/Week Comments Yes 0 (1 standard drink = 0.6 oz pur e alcohol) 1-2 glasses of wine weekly Comments No Sex and Gender Information Value Date Recorded Sex Assigned at Not on file Legal 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 NATURAL GAS FIELD PROCESSING SUPERVISOR Gender Identity Not on file Sexual [...] Out COVID-19 12/04/2020 12/04/2020 12/05/2020 6:04 PM NATURAL GAS FIELD PROCESSING SUPERVISOR documented as of this encounter Care Teams Pharmacy Manager Relationship Specialty Start Date End Date Andrew Lu MD XXX RETIRED XXX [address] [place] [phone] PCP - General 12/10/01 01/10/14 Niko Resendiz MD [address] [place] [address] PCP - General Internal Medicine 01/11/14 01/29/14 Carlie Mac MD [address] [place] [address] PCP - General Pediatrics 01/30/14 07/17/15 Angella Mendieta MD [address] [place] [address] PCP - General Family Practice 07/18/15 09/11/15 Julito Banuelos MD [address] [place] [address] PCP - General Family Practice 09/12/15 09/23/21 Julito Banuelos MD [address] [place] [address] PCP - Assigned PCP 02/17/16 12/28/18 Vika Kevin APRN DOCUMENTATION SPECIALIST [address] [place] [address] PCP - General Nurse Practitioner - Family 09/24/21 03/05/22 Vika Kevin APRN DOCUMENTATION SPECIALIST [address] [place] [address] PCP - General Nurse Practitioner - Family 03/18/22 06/18/22 Vika Kevin APRN DOCUMENTATION SPECIALIST [address] [place] [address] [id number] PCP - General Nurse Practitioner - Family 07/24/22 Julito Banuelos MD [address] [place] [address] 713082 Assigned PCP 02/17/16 07/21/[address] [place] [address] Company Manager Dietitian, Registered 04/14/19 Mary Kay Jones, [facility] Pharmacist 08/01/19 04/20/20 [facility] [address] [place] [address] [address] [place], [place] [address] Pharmacist Pharmacist 08/08/19 04/15/21 [facility] [address] [place], [place] [address] Pharmacist Pharmacist 06/25/20 04/15/21 Vika Kevin APRN DOCUMENTATION SPECIALIST [address] [place] [address] [id number] Assigned PCP 07/22/20 11/16/24 Marilyn Willard MD [address] [place] [address] [address] [place] [address] Assigned Surgical Provider 08/17/20 08/16/24 Carie Varela DO [address] [place], [place] [address] Assigned Heart and Vascular Provider 08/17/20 01/19/21 Maylin May NP [address] [place], [place] [id number] Assigned Pediatric Specialist Provider 12/16/20 06/13/22 Marisa Rodrigues, RN Clinic Asp Net Developer 01/15/21 02/26/21 Vilma Long MD [address] [place] [address] Assigned Heart and Vascular Provider 01/20/21 07/20/21 [facility] [address] [place] [address] Pharmacist Pharmacist 06/04/21 01/15/22 Cole George LISW Lead Asp Net Developer 06/13/21 10/07/21 Fletcher Up Community Health Worker 06/13/21 09/12/21 Bautista Casey MD [address] [place] [address] Assigned Heart and Vascular Provider 07/21/21 01/16/23 Jasmyn Oliver CHW Community Health Worker 09/13/21 10/07/21 [facility] [address] [place] [id number] Assigned MTM Pharmacist 03/22/22 01/02/23 documented as of this encounter
--- OUTSIDE RECORDS SUMMARY | 2024-12-16 22:23 | XMS_ITS | Encounter Summary ---
Author Organization [place] Address [address] [facility] [place] [address] Care Team Providers Care Medical Imaging Specialist Name Role Phone Cortez Lu MD Primary Care Provider [phone] Niko Resendiz MD Primary Care Provider Carlie Mac MD Primary Care Provide r Angella Mendieta MD Primary Care Provider Julito Banuelos MD Primary Care Provider [phone] Julito Banuelos MD Unavailable Julito Banuelos MD Unavailable Aleshia Henriquez RD Unavailable Unavailable Mary Kay Jones [facility] Unavailable Unavailable Susannah Blankenship [facility] Unavailable [phone] Carolyn Huynh [facility] Unavailable [phone] Vika Kevin APRN EDGING 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 Unavailable + Marilyn Willard MD Unavailable [phone] Carie Varela DO Unavailable [phone] Maylin May NP Unavailable [phone] Marisa Rodrigues RN Unavailable Unavailable Vilma Long MD Unavailable + [phone] Yasmeen Pendleton [facility] Unavailable + [phone] Cole George Unavailable Fletcher Russell Unavailable Unavailable Bautista MD Unavailable [phone] Jasmyn Oliver [facility] Unavailable [phone] Vika Kevin APRN [facility] Primary Care Prov ider Vika Kevin APRN [facility] Primary Care Prov ider Yasmeen Pendleton [facility] Unavailable + [phone] [facility] Primary Care Prov ider Encounter Details Date Type Department Care Team (Late st Contact Info) Description 04/22/2013 Office Visit-[facility] [address] [place] [address] Reji Davis MD [address] [place], [place] [phone] Social History Tobacco Use Types Packs/Day Years Used Date Smoking Tobacco: Former Cigarettes 0.3 15 0 10/26/1961 - 10/26/1976 Smokeless Tobacco: Never Alcohol Use Standard Drinks/Week Comments Yes 0 (1 standard drink = 0.6 oz pur e alcohol) 1-2 glasses of wine weekly Comments No Sex and Gender Information Value Date Recorded Sex Assigned at Not on file Legal 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 RATE SETTER Gender Identity Not on file Sexual Orientation Not on file Occupation Industry Job Start Date Job End Date Not on file Not on file Not on file Not on file documented as of this encounter Progress Notes * Reji Davis MD - 04/26/2013 1:24 PM CDT Progress Note Created by: Reji Davis MD #[id number] DATE: 04/22/2013 MARIALUISA COSBY DATE OF : 1940 AGE: [age] years old Referring Physician: CORTEZ LU Referring Clinic: [facility] CURRENT DIAGNOSES 1. Diabetes Xpfvxwgg-Aje-Aujifyj Dependent, 250.00 2. - Hyperlipidemia mixed, 272.2 3. - Hypertension, 401.1 4. - CAD, 414.00 ALLERGIES lisinopril Nitrofurantoin Nitrofurantoin Macrocrystal pramipexole Di-HCl Sulfasalazine tolterodine tartrate zolpidem tartrate MEDICATIONS (prior to changes made today) 1. Asmanex Twisthaler 220 mcg (120 doses) Aerosol Powdr Breath ActivInhl, Take as Directed 2. aspirin, buffered 81 mg tablet, 1 p.o. daily 3. bethanechol chloride 50 mg tablet, 1 p.o. daily 4. Klor-Con 10 10 mEq tablet extended release, 1 p.o. PRN as Directed 5. lamotrigine 100 mg tablet, 1 p.o. daily 6. Lasix 40 mg tablet, 1 p.o. PRN as Directed 7. levocetirizine 5 mg tablet, 1 p.o. daily 8. losartan 25 mg tablet, 1 p.o. daily 9. methocarbamol 750 mg tablet, 1 p.o. PRN as Directed 10. metoprolol succinate 100 mg tablet extended release 24 hr, 1 p.o. daily 11. multivitamin tablet, 1 p.o. daily 12. Nasacort AQ 55 mcg Aerosol, Cedar, Take as Directed 13. Plavix 75 mg tablet, 1 p.o. daily 14. pravastatin 40 mg tablet, 1 p.o. daily 15. quetiapine 50 mg tablet, 1 p.o. daily 16. Singulair 10 mg tablet, 1 p.o. daily 17. Synthroid 50 mcg tablet, 1 p.o. daily 18. trimethoprim 100 mg tablet, 1 p.o. daily 19. Xolair 150 mg Recon Soln, Take as Directed 20. Xopenex HFA 45 mcg/actuation HFA Aerosol Inhaler, Take as Directed CHIEF COMPLAINTS follow up HISTORY OF PRESENT ILLNESS <FONT FACE=SYSTEM>Marialuisa is a very pleasant 73-year-old female with a history of coronary artery disease status post PCI to the proximal and mid circumflex artery in December of 2012 at [facility] in [place], [place] following presentation for non-ST segment elevation AR. I last saw her inApril of this year at which time she was doing well. Unfortunately she recently had onset of chest discomfort after eating a meal at her daughters house on Mothers Day. She states that the pain was not similar to her prior anginal pain. However, she did come to the emergency room where she ruled out for a myocardial infarction. A stress echo was performed showing no evidence for ischemia. It wasfelt that the patients chest discomfort was likely related to a gastrointestinal issue and the patient was placed I believe on a PPI. She has had no recurrent symptoms since that time. Again, she hashad no recurrent anginal symptoms since I have seen her last. <FONT FACE=System> PAST HISTORY Past Medical Illnesses: asthma, HTN, hypothyoidism, diabetes, hyperlipidemia, major depression, anxiety, hypertension, Restless Leg syndrome Past Cardiac Illnesses: CAD, s/p AR Surgeries/Procedures - General: hysterectomy Cardiac/Vasc Procedures-Invasive: left heart cath 12/2012 ([place]) Cardiology Procedures-NonInvasive: echocardiogram Jun 2007, myocardial perfusion (Nuc) Jun 2007, echo 12/2012 ([place]), stress echo February 2013 Cardiac Cath Results: 12/2012 [place] NELIA to the mid and prox CFX, prox to mid LAD diffuse 30-40% dx, 90% small Diag 1, 30-40% prox/40-50% mid/40% distal RCA Left Ventricular Ejection Fraction: EF<GT>55% by Echo -Dec 2012 LVEF of 55-60% documented via stress echo on 03/22/2013 FAMILY HISTORY: Family - Age 48, carotid artery disease; SOCIAL HISTORY Alcohol Use - drinks regularly and has about 1 a day- is trying to cut down; Smoking - does not smoke; Diet - regular diet without modifications; Lifestyle - , drives car and active lifestyle;Exercise - exercises regularly; Seat Belt Use - always; Occupation - retired; Residence - lives with and been living in [place] for 3 months; Place of - [facility]; REVIEW OF SYSTEMS GENERAL fatigue, weight loss, 7 lbs since last visit INTEGUMENTARY denies any change in hair or nails, rashes, or skin lesions. EYES wears eye glasses/contact lenses EARS, NOSE, THROAT, MOUTH partial hearing loss left ear RESPIRATORY history of asthma, cough CARDIOVASCULAR edema ABDOMINAL denies ulcer disease, hematochezia or melena. GENITOURINARY-FEMALE frequency, nocturia, under urologists care, urethral dialations every 3 weeks MUSCULOSKELETAL chronic back pain NEUROLOGICAL denies any history of recurrent strokes, headaches, TIA, or seizure disorder. PSYCHIATRIC denies any history of depression, substance abuse or change in cognitive functions. ENDOCRINE hypothyroidism, non-insulin dependent diabetes mellitus HEMATOLOGICAL/IMMUNOLOGIC seasonal allergies, takes allergy shots, allergies get worse in [place] but they can get bad in [place] too PHYSICAL EXAMINATION VITAL SIGNS: Blood Pressure: 110/62Sitting, Left arm, large cuff Pulse- 74.00/min. Weight- 223.60 lbs. Height- 67 BMI Measurement: 35 CONSTITUTIONAL well developed, well nourished, in no acute distress SKIN warm and dry to touch, no apparent skin lesions or masses noted HEAD normocephalic EYES conjunctivae and lids unremarkable CHEST clear to auscultation CARDIAC S1 normal, S2 normal, distant heart sounds ABDOMEN abdomen soft PERIPHERAL PULSES radial pulse(s) 3+ EXTREMITIES & BACK ankle edema NEUROLOGICAL affect appropriate MEDICATIONS UPDATED/STARTED TODAY: bethanechol chloride 50 mg tablet, 1 p.o. daily, #0 (Zero) Klor-Con 10 10 mEq tablet extended release, 1 p.o. PRN as Directed, #0 (Zero) lamotrigine 100 mg tablet, 1 p.o. daily, #0 (Zero) Lasix 40 mg tablet, 1 p.o. PRN as Directed, #0 (Zero) levocetirizine 5 mg tablet, 1 p.o. daily, #0 (Zero) methocarbamol 750 mg tablet, 1 p.o. PRN as Directed, #0 (Zero) Plavix 75 mg tablet, 1 p.o. daily, #93 (3 month) quetiapine 50 mg tablet, 1 p.o. daily, #0 (Zero) MEDICATIONS REFILLED/STOPPED TODAY: Klor-Con 10 10 mEq tablet extended release 1 p.o. daily #0 (Zero) Dosage Decreased, Lamictal 25 mg tablet 1 p.o. daily #0 (Zero) Patient Request, Lasix 40 mg tablet 1 p.o. daily #0 (Zero) Dosage Decreased, Lopressor 50 mg tablet 1 p.o. daily #0 (Zero) Patient Request, Plavix 75 mg tablet 1 p.o. daily #0 (Zero) Refill, Premarin 0.625 mg/gram Cream Take as Directed #0 (Zero) Patient Request, Prilosec 20 mg capsule,delayed release(DR/EC) 1 p.o. daily #0 (Zero) Substitution, Robaxin-750 750 mg tablet 1 p.o. daily #0 (Zero) Substitution, Seroquel 25 mg tablet 1 p.o. daily #0 (Zero) Patient Request, Vitamin C 500 mg tablet 1 p.o. daily #0 (Zero) Patient Request and Zantac 75 75 mg tablet 1 p.o. twice daily #0 (Zero) Patient Request <FONT FACE=SYSTEM>IMPRESSION: 1.Atypical chest pains resolved with the addition of a PPI. 2.Known coronary artery disease as detailed above. 3.Hypertension. 4.Hyperlipidemia. PLAN: Marialuisa is doing well from a cardiovascular standpoint. With her stress test showing no evidencefor ischemia, I would recommend continued medical management. I will plan to see her back as previously scheduled in approximately three months. She was instructed should she have any recurrent anginal type symptoms similar to what she had in [place] then I will need to see her sooner in which caseI would consider a Cardiolite study at that time. Thank you for allowing me to participate in the care of your patient. If you have any questions, please do not hesitate to contact me. <FONT FACE=System> TODAYS ORDERS Reji Davis MD documented in this encounter Plan of Treatment Not on file documented as of this encounter Visit Diagnoses Not on filedocumented in this encounter Additional Health Concerns Infection Onset Date Last Indicated Resolved Time Rule Out COVID-19 07/25/2020 07/25/2020 07/26/2020 3:02 PM CDT Rule Out COVID-19 12/04/2020 12/04/2020 12/05/2020 6:04 PM RATE SETTER documented as of this encounter Care Teams Medical Imaging Specialist Relationship Specialty Start Date End Date Cortez Lu MD XXX RETIRED XXX [address] [place] [phone] PCP - General 12/10/01 01/10/14 Niko Resendiz MD [address] [place] [address] PCP - General Internal Medicine 01/11/14 01/29/14 Carlie Mac MD [address] [place] [address] PCP - General Pediatrics 01/30/14 07/17/[address] [facility] [place] [address] PCP - General Family Practice 07/18/15 09/11/15 Julito Banuelos MD [address] [place] [address] PCP - General Family Practice 09/12/15 09/23/21 Julito Banuelos MD [address] [place] [address] PCP - Assigned PCP 02/17/16 12/28/18 Vika Kevin APRN EDGING 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 [address] [place] [address] PCP - General Nurse Practitioner - Family 09/24/21 03/05/22 Vika Kevin APRN EDGING 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 [address] [place] [address] PCP - General Nurse Practitioner - Family 03/18/22 06/18/22 Vika Kevin APRN EDGING 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 [address] [place] [address] PCP - General Nurse Practitioner - Family 07/24/22 Julito Banuelos MD [address] [place] [address] Assigned PCP 02/17/16 07/21/[address] [place] [address] Inspector Final Assembly Electrical Dietitian, Registered 04/14/19 Mary Kay Jones [facility] 08/01/19 04/20/20 Susannah Blankenship [facility] [address] [facility] [address] [place] [address] Pharmacist Pharmacist 08/08/19 04/15/21 Carolyn Huynh [facility] [address] [place] [address] Pharmacist Pharmacist 06/25/20 04/15/21 Vika Kevin, JAIME EDGING 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 [address] [place] [address]862 Assigned PCP 07/22/20 11/16/24 Marilyn Willard MD [address] [facility] [address] [place], [place] [address] Assigned Surgical Provider 08/17/20 08/16/24 Carie Varela DO [address] [place] [address] Assigned Heart and Vascular Provider 08/17/20 01/19/21 Maylin May NP [address] [place], [place] [id number] Assigned Pediatric Specialist Provider 12/16/20 06/13/22 Marisa Rodrigues, RN Clinic Ceramic Artist 01/15/21 02/26/21 Vilma Long MD [address] [place] 3[address] Assigned Heart and Vascular Provider 01/20/21 07/20/21 Yasmeen Pendleton [facility] [address] [place], [place] [address] Pharmacist Pharmacist 06/04/21 01/15/22 oCle George LISW Lead Ceramic Artist 06/13/21 10/07/21 Fletcher Up Community Health Worker 06/13/21 09/12/21 Bautista Casey MD [address] [place], [place] [address] Assigned Heart and Vascular Provider 07/21/21 01/16/23 Jasmyn Oliver CHW Community Health Worker 09/13/21 10/07/21 Yasmeen Pendleton [facility] [address] [place] [address] Assigned MTM Pharmacist 03/22/22 01/02/23 documented as of this encounter
--- OUTSIDE RECORDS SUMMARY | 2024-12-16 22:23 | XMS_ITS | Encounter Summary ---
Author Organization [place] Address [address] [facility] [place] [address] Care Team Providers Care Mechanical Development Engineer Name Role Phone Julito Banuelos MD Primary Care Provider [phone] Julito Banuelos MD Unavailable Aleshia Henriquez RD Unavailable Unavailable Mary Kay Jones [facility] Unavailable Unavailable Susannah Blankenship [facility] Unavailable [phone] Carolyn Huynh [facility] Unavailable [phone] Vika Kevin APRN STEAM TANK OPERATOR Unavailable + Marilyn Willard MD Unavailable [phone] Carie Varela DO Unavailable [phone] Maylin May NP Unavailable [phone] Marisa Hernandez RN Unavailable Unavailable Vilma Long MD Unavailable Yasmeen Pendleton [facility] Unavailable Cole George Unavailable Fletcher Russell Unavailable Unavailable Bautista Casey MD Unavailable Jasmyn Oliver [facility] Unavailable [phone] Vika Kevin APRN STEAM TANK OPERATOR Primary Care Prov ider Vika Kevin APRN, CNP Primary Care Prov ider Yasmeen Pendleton [facility] Unavailable [phone] Vika Kevin APRN STEAM TANK OPERATOR Primary Care Prov ider Encounter Details Date Type Department Care Team (Late st Contact Info) Description 08/01/2019 MyC Medical Advice [address] [place] [phone] Mary Kay Jones, [facility] Social History Tobacco Use Types Packs/Day Years [...] on file Legal 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 PREDICTIVE MAINTENANCE SPECIALIST Gender Identity Not on file Sexual [...] Out COVID-19 12/04/2020 12/04/2020 12/05/2020 6:04 PM PREDICTIVE MAINTENANCE SPECIALIST Assessment Noted Time PHQ-9 Depression Total Score: 8 07/18/20 19 12:06 PM CDT documented as of this encounter Care Teams Mechanical Development Engineer Relationship Specialty Start Date End Date Julito Banuelos MD [address] [place] [address] PCP - General Family Practice 09/12/15 09/23/21 Vika Kevin APRN [facility] [address] [place] [address] PCP - General Nurse Practitioner - Family 09/24/21 03/05/22 Vika Kevin APRN STEAM TANK OPERATOR [address] [place] [address] PCP - General Nurse Practitioner - Family 03/18/22 06/18/22 Vika Kevin APRN STEAM TANK OPERATOR [address] [place] [address] 955982 PCP - General Nurse Practitioner - Family 07/24/22 Julito Banuelos MD [address] [place] [address] [id number] Assigned PCP 02/17/16 07/21/[address] [place] [address] Facility Environmental Technician Dietitian, Registered 04/14/19 Mary Kay Jones, [facility] Pharmacist 08/01/19 04/20/20 Susannah Blankenship, [facility] [address] [place] [address] [address] [place] [address] Pharmacist Pharmacist 08/08/19 04/15/21 Carolyn Huynh [facility] [address] [place], [place] [address] Pharmacist Pharmacist 06/25/20 04/15/21 Vika Kevin APRN STEAM TANK OPERATOR [address] [place] [address] Assigned PCP 07/22/20 11/16/24 Marilyn Willard MD [address] [facility] [address] [place] [address] Assigned Surgical Provider 08/17/20 08/16/24 Carie Varela DO [address] [place] [address] Assigned Heart and Vascular Provider 08/17/20 01/19/21 Maylin May, JENNY [address] [place], [place] [id number] Assigned Pediatric Specialist Provider 12/16/20 06/13/22 Marisa Rodrigues RN Clinic Applications Manager 01/15/21 02/26/21 Vilma Long MD [address] [place] [address] Assigned Heart and Vascular Provider 01/20/21 07/20/21 Yasmeen Pendleton [facility] [address] [place] [address] Pharmacist Pharmacist 06/04/21 01/15/22 Cole George LISW Lead Applications Manager 06/13/21 10/07/21 Fletcher Up Community Health Worker 06/13/21 09/12/21 Bautista Casey MD [address] [place] [address] Assigned Heart and Vascular Provider 07/21/21 01/16/23 Jasmyn Oliver CHW Community Health Worker 09/13/21 10/07/21 Yasmeen Pendleton [facility] [address] [place] [address] Assigned MTM Pharmacist 03/22/22 01/02/23 documented as of this encounter
--- OUTSIDE RECORDS SUMMARY | 2024-12-16 22:23 | XMS_ITS | Encounter Summary ---
Author Organization [place] Address [address] [facility] [place] [address] Care Team Providers Care Cotton Opener Name Role Phone Andrew Lu MD Primary Care Provider [phone] Niko Resendiz MD Primary Care Provider Carlie Mac MD Primary Care Provide r Angella Mendieta MD Primary Care Provider Julito Banuelos MD Primary Care Provider [phone] Julito Banuelos MD Unavailable Julito Banuelos MD Unavailable Aleshia Henriquez RD Unavailable Unavailable Mary Kay Jones [facility] Unavailable Unavailable Susannah Blankenship [facility] Unavailable [phone] Carolyn Huynh [facility] Unavailable [phone] Vika Kevin APRN CARE SPECIALIST Unavailable + Marilyn Willard MD Unavailable [phone] Carie Varela DO Unavailable [phone] Maylin May NP Unavailable [phone] Marisa Rodrigues RN Unavailable Unavailable Vilma Long MD Unavailable + [phone] Yasmeen Pendleton [facility] Unavailable [phone] Cole George Unavailable Fletcher Russell Unavailable Unavailable Bautista Casey MD Unavailable DemetriusJasmyn wright [facility] Unavailable [phone] Vika Kevin APRN [facility] Primary Care Prov ider Vika Kevin APRN [facility] Primary Care Prov ider Yasmeen Pendleton [facility] Unavailable [phone] [facility] Primary Care Prov ider Encounter Details Date Type Department Care Team (Late st Contact Info) Description 04/27/2012 MyC Medical Advice [address] [phone] Andrew Lu MD XXX RETIRED XXX [address] [phone] Social History Tobacco Use Types Packs/Day Years Used Date Smoking Tobacco: Former Cigarettes 0.3 15 0 10/26/1961 - 10/26/1976 Smokeless Tobacco: Never Alcohol Use Standard Drinks/Week Comments Yes 0 (1 standard drink = 0.6 oz pur e alcohol) 1-2 glasses of wine weekly Comments No Sex and Gender Information Value Date Recorded Sex Assigned at Not on file Legal 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 CORPORATE COMPLIANCE OFFICER Gender Identity Not on file Sexual [...] Out COVID-19 12/04/2020 12/04/2020 12/05/2020 6:04 PM CORPORATE COMPLIANCE OFFICER documented as of this encounter Care Teams Cotton Opener Relationship Specialty Start Date End Date Andrew Lu MD XXX RETIRED XXX [address] [place] [phone] PCP - General 12/10/01 01/10/14 Niko Resendiz MD [address] [place] [address] PCP - General Internal Medicine 01/11/14 01/29/14 Carlie Mac MD [address] [place] [address] PCP - General Pediatrics 01/30/14 07/17/15 Angella Mendieta MD [address] [place] [address] PCP - General Family Practice 07/18/15 09/11/15 Julito Banuelos MD [address] [place] [address] PCP - General Family Practice 09/12/15 09/23/21 Julito Banuelos MD [address] [place] [address] PCP - Assigned PCP 02/17/16 12/28/18 Vika Kevin APRN CARE SPECIALIST [address] [place] [address] PCP - General Nurse Practitioner - Family 09/24/21 03/05/22 Vika Kevin APRN CARE SPECIALIST [address] [place] [address] PCP - General Nurse Practitioner - Family 03/18/22 06/18/22 Vika Kevin, JAIME CARE SPECIALIST [address] [place] [address] 739022 PCP - General Nurse Practitioner - Family 07/24/22 Julito Banuelos MD [address] [place] [address] 950352 Assigned PCP 02/17/16 07/21/[address] [place] [address] Officer Dietitian, Registered 04/14/19 Mary Kay Jones, [facility] Pharmacist 08/01/19 04/20/20 Susannah Blankenship, [facility] [address] [facility] [address] [place], [place] [address] Pharmacist Pharmacist 08/08/19 04/15/21 Carolyn Huynh, [facility] [address] [place], [place] [address] Pharmacist Pharmacist 06/25/20 04/15/21 Vika Kevin, JAIME CARE SPECIALIST [address] [place] [address] [id number] Assigned PCP 07/22/20 11/16/24 Marliyn Willard MD [address] [facility] [address] [place], [place] [address] Assigned Surgical Provider 08/17/20 08/16/24 Carie Varela DO [address] [place] [address] Assigned Heart and Vascular Provider 08/17/20 01/19/21 Maylin May NP [address] [place] [address] Assigned Pediatric Specialist Provider 12/16/20 06/13/22 Marisa Rodrigues, RN Clinic Paving Bed Maker 01/15/21 02/26/21 Vilma Long MD [address] [place] [address] Assigned Heart and Vascular Provider 01/20/21 07/20/21 Yasmeen Pendleton [facility] [address] [place] [address] Pharmacist Pharmacist 06/04/21 01/15/22 Cole George LISW Lead Paving Bed Maker 06/13/21 10/07/21 Fletcher Up Community Health Worker 06/13/21 09/12/21 Bautista Casey MD [address] [place] [address] Assigned Heart and Vascular Provider 07/21/21 01/16/23 Jasmyn Oliver CHW Community Health Worker 09/13/21 10/07/21 Yasmeen Pendleton [facility] [address] [place] [address] Assigned MTM Pharmacist 03/22/22 01/02/23 documented as of this encounter
--- OUTSIDE RECORDS SUMMARY | 2024-12-16 22:24 | XMS_ITS | Encounter Summary ---
Author Organization [place] Address [address] [facility] [place] [address] Care Team Providers Care Furniture Crater Name Role Phone Andrew Lu MD Primary Care Provider [phone] Niko Resendiz MD Primary Care Provider Carlie Mac MD Primary Care Provide r Angella Mendieta MD Primary Care Provider Julito Banuelos MD Primary Care Provider [phone] Julito Banuelos MD Unavailable Julito Banuelos MD Unavailable Aleshia Henriquez RD Unavailable Unavailable Mary Kay Jones [facility] Unavailable Unavailable Susannah Blankenship [facility] Unavailable [phone] Carolyn Huynh [facility] Unavailable [phone] Vika Kevin APRN VARNISH DIPPER Unavailable + Marilyn Willard MD Unavailable [phone] Carie Varela DO Unavailable [phone] Maylin May NP Unavailable [phone] Marisa Rodrigues RN Unavailable Unavailable Vilma Long MD Unavailable + [phone] Yasmeen Pendleton [facility] Unavailable [phone] Cole George Unavailable Fletcher Russell Unavailable Unavailable Bautista Casey MD Unavailable [phone] AnnyJasmyn tracey [facility] Unavailable [phone] Vika Kevin APRN [facility] Primary Care Prov ider Vika Kevin APRN [facility] Primary Care Prov ider Yasmeen Pendleton [facility] Unavailable [phone] Vika Kevin [facility] Primary Care Prov ider Encounter Details Date Type Department Care Team (Late st Contact Info) Description 06/23/[address] [phone] Andrew Lu MD XXX RETIRED XXX [address] [place] [phone] OP REPT (Primary Dx) Social History Tobacco Use Types Packs/Day Years Used Date Smoking Tobacco: Former Cigarettes 0.5 15 0 10/26/1955 - 10/26/1963 Smokeless Tobacco: Never Alcohol Use Standard Drinks/Week Comments Yes 6 (1 standard drink = 0.6 oz pur e alcohol) Occasional glass of wine Comments No Sex and Gender Information Value Date Recorded Sex Assigned at Not on file Legal 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 PLYWOOD STOCK GRADER Gender Identity Not on file Sexual Orientation Not on file 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 Chronic sinusitis. 2. Deviated nasal septum. POST- OPERATIVE DIAGNOSIS: 1. Chronic sinusitis. 2. Deviated nasal septum. OPERATION: 1. Bilateral endosco pic anterior ethmoidectomy. 2. Bilateral endoscopic antrostomy with tissue removal. 3. Nasal septopla sty. ANESTHESIA: General. Estimated blood loss: 80 cc. Specimens: Left and right contents of mid dle meatus. COMPLICATIONS: None. FINDINGS: The septum was displaced to the right superiorly. Th ere was diffuse nasal and sinus mucosal edema. HISTORY OF PRESENT ILLNESS: Marialuisa Cosby is a 63-y ear-old patient of Dr. Andrew Lu and Dr. Vin Doshi who was referred for evaluation of recurr ing sinusitis. She was developing more than 6 episodes of sinusitis per year in spite of aggressive treatment with antibiotics, steroid nasal sprays, antihistamines, and other allergy treatment. Altho ugh CT scan of the sinuses showed no obstructed ostiomeatal complexes, there was deviated nasal septu m noted, and on examination, there was purulent drainage in the middle meatus. The above procedure w as recommended. Details, alternatives, benefits, and risks of the procedure were reviewed with the p atient. Her questions were answered and she gave informed consent. PROCEDURE: The patient was brou ght to the operating room, placed on the operating table in a supine position and general anesthesia was administered via oral endotracheal tube. After satisfactory anesthesia was assured, the table wa s turned and the patient was sterilely draped. The nose was prepared with submucosal injection of 1% lidocaine with 1:100,000 epinephrine at the septum, middle turbinate, and lateral middle meatus, bila terally. The nose was then packed with 4% cocaine on neurosurgical Cottonoids. After satisfactory v asoconstriction was assured, the Cottonoids were removed and examination of the nose with 0 and 30 de gree nasal endoscopes revealed nasal septal deviation as noted above with diffuse mucosal edema and n o purulent drainage, polyps or other mucosal lesions were noted. The endoscopes were used throughout the sinus dissection. Septoplasty was undertaken via right anterior hemitransfixion incision which a llowed elevation of a right anterior mucoperichondrial flap. The quadrangular cartilage was transect ed anterior to its displacement off the midline and bilateral posterior tunnels were developed. This allowed removal of the displaced cartilage and bone with return of the septum to the midline. The m ucosal flaps were coapted using running horizontal mattress suture of 3-0 chromic and the anterior he mitransfixion incision was closed with running locked 4-0 chromic suture. Inferior turbinates were ou tfractured to improve the nasal airway. Attention was directed to the left middle meatus where the un cinate process was removed from posteriorly to anteriorly. The natural ostium to the maxillary sinus was identified and opened widely posteriorly and inferiorly, with diffuse, edematous mucosa removed in the process. The ethmoidal bulla was then opened widely as were remaining anterior ethmoid air ce lls. Attention was directed to the opposite nasal cavity where the same procedure was performed with the same findings. At this point, dissection was complete and Seprapack sponges were placed in both m iddle meatus and hydrated with normal saline. Satisfactory hemostasis was assured and the patient was allowed to recover from anesthesia. Toni LOPEZ MD Document: [id number] [place], [place] MARIALUISA COSBY OPERATIV E REPORT Page 2 of 2 LCN:SDS DSC: 06/23/2003 [place], [place] Name: MR #: : Procedure Date: MARIALUISA COSBY -[id number] 06/23/2003 Doctor: Toni RASMUSSEN MD OPERATIVE REPORT Page 1 of 2 Electronically filed by Sylvester Mir 06/28/2003 11:4 3 AM documented in this encounter Plan of Treatment Not on file documented as of this encounter Visit Diagnoses Diagnosis OP REPT- Primary documented in this encounter Additional Health Concerns Infection Onset Date Last Indicated Resolved Time Rule Out COVID-19 07/25/2020 07/25/2020 07/26/2020 3:02 PM CDT Rule Out COVID-19 12/04/2020 12/04/2020 12/05/2020 6:04 PM PLYWOOD STOCK GRADER documented as of this encounter Care Teams Furniture Crater Relationship Specialty Start Date End Date Andrew Lu MD XXX RETIRED XXX [address] [place] [phone] PCP - General 12/10/01 01/10/14 Niko Resendiz MD [address] [address] PCP - General Internal Medicine 01/11/14 01/29/14 Carlie Mac MD [address] [place] [address] PCP - General Pediatrics 01/30/14 07/17/15 Angella Mendieta MD [address] [place] [address] PCP - General Family Practice 07/18/15 09/11/15 Julito Banuelos MD [address] [place] [address] PCP - General Family Practice 09/12/15 09/23/21 Julito Banuelos MD [address] [place] [address] PCP - Assigned PCP 02/17/16 12/28/18 Vika Kevin APRN VARNISH DIPPER [address] [place] [address] PCP - General Nurse Practitioner - Family 09/24/21 03/05/22 Vika Kevin APRN VARNISH DIPPER [address] [place] [address] PCP - General Nurse Practitioner - Family 03/18/22 06/18/22 Vika Kevin APRN VARNISH DIPPER [address] [place] [address] PCP - General Nurse Practitioner - Family 07/24/22 Julito Banuelos MD [address] [place] [address] Assigned PCP 02/17/16 07/21/20 Aleshia Henriquez, DAVE [address] [place] [address] Police Lieutenant Precinct Dietitian, Registered 04/14/19 Mary Kay Jones, [facility] Pharmacist 08/01/19 04/20/20 [facility] [address] [place] [address] 8[address] [place], [place] [address] Pharmacist Pharmacist 08/08/19 04/15/21 [facility] [address] [place], [place] [address] Pharmacist Pharmacist 06/25/20 04/15/21 Vika Kevin APRN VARNISH DIPPER [address] [place] [address] Assigned PCP 07/22/20 11/16/24 Marilyn Willard MD [address] [place] [address] 394 [place], [place] [address] Assigned Surgical Provider 08/17/20 08/16/24 Carie Varela DO [address] [place], [place] [address] Assigned Heart and Vascular Provider 08/17/20 01/19/21 Maylin May NP [address] [place] [address] Assigned Pediatric Specialist Provider 12/16/20 06/13/22 Marisa Rodrigues, RN Clinic Inside Sales Trainer 01/15/21 02/26/21 Vilma Long MD [address] [place] [address] Assigned Heart and Vascular Provider 01/20/21 07/20/21 [facility] [address] [place] [address] Pharmacist Pharmacist 06/04/21 01/15/22 Cole George LISW Lead Inside Sales Trainer 06/13/21 10/07/21 Fletcher pU Community Health Worker 06/13/21 09/12/21 Bautista Casey MD [address] [place] [address] Assigned Heart and Vascular Provider 07/21/21 01/16/23 Jasmyn Oliver CHW Community Health Worker 09/13/21 10/07/21 [facility] [address] [place], [place] [address] Assigned MTM Pharmacist 03/22/22 01/02/23 documented as of this encounter
--- OUTSIDE RECORDS SUMMARY | 2024-12-16 22:24 | XMS_ITS | Encounter Summary ---
Author Organization [place] Address [address] [facility] [place] [address] Care Team Providers Care Wet Wash Assembler Name Role Phone Julito Banuelos MD Primary Care Provider [phone] Julito Banuelos MD Unavailable Aleshia Henriquez RD Unavailable Unavailable Mary Kay Jones [facility] Unavailable Unavailable Susannah Blankenship [facility] Unavailable Carolyn Huynh [facility] Unavailable [phone] Vika Kevin APRN TUGBOAT OPERATOR Unavailable + Marilyn Willard MD Unavailable Carie Varela DO Unavailable [phone] Maylin May NP Unavailable [phone] Marisa Hernandez RN Unavailable Unavailable Vilma Long MD Unavailable Yasmeen Pendleton [facility] Unavailable Cole George Unavailable Fletcher Russell Unavailable Unavailable Bautista Casey MD Unavailable Jasmyn Oliver [facility] Unavailable [phone] Vika Kevin APRN TUGBOAT OPERATOR Primary Care Prov ider Vika Kevin APRN [facility] Primary Care Prov ider Yasmeen Pendleton [facility] Unavailable + [phone] Vika Kevin APRN [facility] Primary Care Prov ider Reason for Visit * Reason Onset Date Comments Suspected Covid 02/24/2020 Needs swab testi ng Encounter Details Date Type Department Care Team ([facility] st Contact Info) Description 02/24/[address] [address] Vika Kevin APRN [address] [address] Suspected Covid (Needs swab testing) Social History Tobacco Use Types Packs/Day Years [...] on file Legal 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 COLORIST FORMULATOR Gender Identity Not on file Sexual Orientation [...] encounter Miscellaneous Notes * Telephone Encounter - Araseli Briceño, RN - 02/24/2020 3:53 PM CDT Patient has not been called yet. I called patient and advised her to go to [email or web address] to get message sent for testing. Per Vika Kevin if weakness worsens AT ALL over the weekend present to ED. notified and verbalized understanding. YUE Mcdowell, RN, JACINTA Peng [facility] Office: [phone] * Telephone Encounter - Araseli Briceño RN - 02/24/2020 12:26 PM CDT Patient in clinic now for evaluation for sore throat. Provider is recommending Covid-19 swab testing. Patient unable to do [facility]. Routing to [facility] Provider pool ([id number]) to contact patient to set up virtual evaluation and order testing. Any questions call [facility] at [phone]. YUE Mcdowell, RN, JACINTA Peng [facility] Office: [phone] documented in this encounter Plan of Treatment Not on file documented as of this encounter Visit Diagnoses Not on filedocumented in this encounter Additional Health Concerns Infection Onset Date Last Indicated Resolved Time Rule Out COVID-19 07/25/2020 07/25/2020 07/26/2020 3:02 PM CDT Rule Out COVID-19 12/04/2020 12/04/2020 12/05/2020 6:04 PM COLORIST FORMULATOR Assessment Noted Time PHQ-9 Depression Total Score: 8 07/18/20 19 12:06 PM CDT documented as of this encounter Care Teams Wet Wash Assembler Relationship Specialty Start Date End Date Julito Banuelos MD [address] [place] [id number] PCP - General Family Practice 09/12/15 09/23/21 Vika Kevin APRN TUGBOAT OPERATOR [address] [place] [address] PCP - General Nurse Practitioner - Family 09/24/21 03/05/22 Vika Kevin APRN TUGBOAT OPERATOR [address] [place] [address] PCP - General Nurse Practitioner - Family 03/18/22 06/18/22 Vika Kevin APRN TUGBOAT OPERATOR [address] [place] [address] PCP - General Nurse Practitioner - Family 07/24/22 Julito Banuelos MD [address] [place] [address] [id number] Assigned PCP 02/17/16 07/21/[address] [place] [address] Sewing Machine Operator Floorperson Dietitian, Registered 04/14/19 Mary Kay Jones, [facility] Pharmacist 08/01/19 04/20/20 Susannah Blankenship [facility] [address] [facility] [address] [place], [place] [address] Pharmacist Pharmacist 08/08/19 04/15/21 Carolyn Huynh, [facility] [address] [place], [place] [address] Pharmacist Pharmacist 06/25/20 04/15/21 Vika Kevni, JAIME TUGBOAT OPERATOR [address] [place] [address] [id number] Assigned PCP 07/22/20 11/16/24 Marilyn Willard MD [address] [facility] [address] [place], [place] [address] Assigned Surgical Provider 08/17/20 08/16/24 Carie Varela DO [address] [place] [address] Assigned Heart and Vascular Provider 08/17/20 01/19/21 Maylin May NP [address] [place] [address] Assigned Pediatric Specialist Provider 12/16/20 06/13/22 Marisa Rodrigues, RN Clinic Lead Mechanical Engineer 01/15/21 02/26/21 Vilma Long MD [address] [place] [address] Assigned Heart and Vascular Provider 01/20/21 07/20/21 [facility] [address] [place] [address] Pharmacist Pharmacist 06/04/21 01/15/22 Cole George LISW Lead Lead Mechanical Engineer 06/13/21 10/07/21 Fletcher Up Community Health Worker 06/13/21 09/12/21 Bautista Casey MD [address] [place] [address] Assigned Heart and Vascular Provider 07/21/21 01/16/23 Jasmyn Oliver CHW Community Health Worker 09/13/21 10/07/21 [facility] [address] [place] [address] Assigned MTM Pharmacist 03/22/22 01/02/23 documented as of this encounter
--- OUTSIDE RECORDS SUMMARY | 2024-12-16 22:24 | XMS_ITS | Encounter Summary ---
Author Organization [place] Address [address] [facility] [place] [address] Care Team Providers Care Lean Manufacturing Leader Name Role Phone Julito Banuelos MD Primary Care Provider [phone] Unavailable Unavailable Susannah Blankenship [facility] Unavailable [phone] Carolyn Huynh [facility] Unavailable [phone] Vika Kevin APRN [facility] Unavailable + Marilyn Willard MD Unavailable [phone] Carie Varela DO Unavailable [phone] Maylin May NP Unavailable [phone] Marisa Hernandez RN Unavailable Unavailable Vilma Long MD Unavailable + [phone] Yasmeen Pendleton [facility] Unavailable Cole George Unavailable Fletcher Russell Unavailable Unavailable Bautista Casey MD Unavailable [phone] Jasmyn Oliver Unavailable [phone] Vika Kevin APRN [facility] Primary Care Prov ider Vika Kevin APRN [facility] Primary Care Prov ider Yasmeen Pendleton [facility] Unavailable [phone] Vika Kevin APRN CORPORATE OPERATIONS COMPLIANCE MANAGER Primary Care Prov ider Encounter Details Date Type Department Care Team (Late st Contact Info) Description 01/07/2021 MyC Medical Advice [facility] [address] [facility] [address] [place] [address] [facility] [address] [place] [address] Social History Tobacco Use Types Packs/Day Years Used Date Smoking Tobacco: Former Cigarettes 0.5 15 0 [birth year]26/1955 - 10[birth year]26/1962 Smokeless Tobacco: Never Alcohol Use Standard Drinks/Week Comments Yes 6 (1 standard drink = 0.6 oz pur e alcohol) Occasional glass of wine PHQ-2 Answer Date Recorded PHQ-2 Score 0 10/05/2020 Comments No Sex and Gender Information Value Date Recorded Sex Assigned at Not on file Legal 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 CLOTHES MARKER Gender Identity Not on file Sexual Orientation Not on file Occupation Industry Job Start Date Job End Date Not on file Not on file Not on file Not on file COVID-19 Exposure Response Date Recorded In the last month, have you been in contact with someone who was confirmed or suspected to have Coronavirus / COVID-19? No / Unsure 01/09/2021 8:59 AM CDT documented as of this encounter Plan of Treatment Not on file documented as of this encounter Visit Diagnoses Not on filedocumented in this encounter Additional Health Concerns Assessment Noted Time PHQ-9 Depression Total Score: 10 020 9:30 AM CLOTHES MARKER documented as of this encounter Care Teams Lean Manufacturing Leader Relationship Specialty Start Date End Date Julito Banuelos MD [address] [place] [address] PCP - General Family Practice 09/12/15 09/23/21 Vika Kevin APRN CORPORATE OPERATIONS COMPLIANCE MANAGER [address] [place] [address] PCP - General Nurse Practitioner - Family 09/24/21 03/05/22 Vika Kevin APRN CORPORATE OPERATIONS COMPLIANCE MANAGER [address] [place] [address] PCP - General Nurse Practitioner - Family 03/18/22 06/18/22 Vika Kevin, JAIME CORPORATE OPERATIONS COMPLIANCE MANAGER [address] [place] [address] PCP - General Nurse Practitioner - Family 07/24/[address] [place] [address] Apparel Rental Clerk Dietitian, Registered 04/14/19 Susannah Blankenship, [facility] [address] [place] [address] [address] [place] [address] Pharmacist Pharmacist 08/08/19 04/15/[address]h [facility] [address] [place] [address] Pharmacist Pharmacist 06/25/20 04/15/21 Vika Kevin, JAIME CORPORATE OPERATIONS COMPLIANCE MANAGER [address] [place] [address] Assigned PCP 07/22/20 11/16/24 Marilyn Willard MD [address] [place] [address] [address] [place] [address] Assigned Surgical Provider 08/17/20 08/16/24 Carie Varela DO [address] [place] [address] Assigned Heart and Vascular Provider 08/17/20 01/19/21 Maylin May NP [address] [place] [address] Assigned Pediatric Specialist Provider 12/16/20 06/13/22 Marisa Rodrigues, RN Clinic Insole And Outsole Splitter 01/15/21 02/26/21 Vilma Long MD [address] [place] [address] Assigned Heart and Vascular Provider 01/20/21 07/20/21 [facility] [address] [place] [phone] Pharmacist Pharmacist 06/04/21 01/15/22 Cole George LISW Lead Insole And Outsole Splitter 06/13/21 10/07/21 Fletcher Up Community Health Worker 06/13/21 09/12/21 Bautista Casey MD [address] [place] [address] Assigned Heart and Vascular Provider 07/21/21 01/16/23 Jasmyn Oliver CHW Community Health Worker 09/13/21 10/07/21 Yasmeen Pendleton [facility] [address] [place] [address] Assigned MTM Pharmacist 03/22/22 01/02/23 documented as of this encounter
--- OUTSIDE RECORDS SUMMARY | 2024-12-16 22:24 | XMS_ITS | Encounter Summary ---
Author Organization [place] Address [address] [facility] [place] [address] Care Team Providers Care Gas Pit Worker Name Role Phone Julito Banuelos MD Primary Care Provider [phone] Julito Banuelos MD Unavailable Aleshia Henriquez RD Unavailable Unavailable Susannah Blankenship [facility] Unavailable [phone] Carolyn Huynh [facility] Unavailable [phone] Vika Kevin APRN PUBLIC DEFENDER Unavailable + Marilyn Willard MD Unavailable [phone] Carie Varela DO Unavailable [phone] Maylin May NP Unavailable [phone] Marisa Hernandez RN Unavailable Unavailable Vilma Long MD Unavailable + [phone] Yasmeen Pendleton [facility] Unavailable Cole George Unavailable Fletcher Russell Unavailable Unavailable Bautista Casey MD Unavailable [phone] Jasmyn Oliver Unavailable [phone] Vika Kevin APRN PUBLIC DEFENDER Primary Care Prov ider Vika Kevin APRN [facility] Primary Care Prov ider Yasmeen Pendleton [facility] Unavailable Vika Kevin APRN [facility] Primary Care Prov ider Encounter Details Date Type Department Care Team (Late st Contact Info) Description 05/08/2020 MyC Medical Advice [address] [place] [address] Susannah Blankenship, [facility] [address] [facility] [address] [place] [address] Social History Tobacco Use Types Packs/Day Years [...] on file Legal 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 LOOM CHANGEOVER OPERATOR Gender Identity Not on file Sexual Orientation Not on file Occupation Industry Job Start Date Job End Date Not on file Not on file Not on file Not on file COVID-19 Exposure Response Date Recorded In the last month, have you been in contact with someone who was confirmed or suspected to have Coronavirus / COVID-19? No / Unsure 05/10/2020 10:44 AM CDT documented as of this encounter Plan of Treatment Not on file documented as of this encounter Visit Diagnoses Not on filedocumented in this encounter Additional Health Concerns Infection Onset Date Last Indicated Resolved Time Rule Out COVID-19 07/25/2020 07/25/2020 07/26/2020 3:02 PM CDT Rule Out COVID-19 12/04/2020 12/04/2020 12/05/2020 6:04 PM LOOM CHANGEOVER OPERATOR Assessment Noted Time PHQ-9 Depression Total Score: 8 07/18/20 19 12:06 PM CDT documented as of this encounter Care Teams Gas Pit Worker Relationship Specialty [place] [address] [place] [address] PCP - General Family Practice 09/12/15 09/23/21 Vika Kevin APRN PUBLIC DEFENDER [address] [place] [address] PCP - General Nurse Practitioner - Family 09/24/21 03/05/22 Vika Kevin APRN PUBLIC DEFENDER [address] [place] [address] PCP - General Nurse Practitioner - Family 03/18/22 06/18/22 Vika Kevin APRN PUBLIC DEFENDER [address] [place] [address] PCP - General Nurse Practitioner - Family 07/24/22 Julito Banuelos MD [address] [place] [address] [id number] Assigned PCP 02/17/16 07/21/[address] [place] [address] Running Instructor Dietitian, Registered 04/14/19 Susannah Blankenship, [facility] [address] [place] [address] [address] [place] [address] Pharmacist Pharmacist 08/08/19 04/15/21 Carolyn Huynh [facility] [address] [place] [address] Pharmacist Pharmacist 06/25/20 04/15/21 Vika Kevin APRN PUBLIC DEFENDER [address] [place] [address] Assigned PCP 07/22/20 11/16/24 Marilyn Willard MD [address] [place] [address] [address] [place] [address] Assigned Surgical Provider 08/17/20 08/16/24 Carie Varela DO [address] [place] [address] Assigned Heart and Vascular Provider 08/17/20 01/19/21 Maylin May NP [address] [place] [address] Assigned Pediatric Specialist Provider 12/16/20 06/13/22 Marisa Rodrigues, RN Clinic Compliance Spec 01/15/21 02/26/21 Vilma Long MD [address] [place] [address] Assigned Heart and Vascular Provider 01/20/21 07/20/21 Yasmeen Pendleton [facility] [address] [place] [address] [phone] Pharmacist Pharmacist 06/04/21 01/15/22 Cole George LISW Lead Compliance Spec 06/13/21 10/07/21 Fletcher Up Community Health Worker 06/13/21 09/12/21 Bautista Casey MD [address] [place] [address] Assigned Heart and Vascular Provider 07/21/21 01/16/23 Jasmyn Oliver CHW Community Health Worker 09/13/21 10/07/21 Yasmeen Pendleton [facility] [address] [place] [address] Assigned MTM Pharmacist 03/22/22 01/02/23 documented as of this encounter
--- OUTSIDE RECORDS SUMMARY | 2024-12-16 22:24 | XMS_ITS | Clinical Summary ---
Author Organization [facility] Address [address] [place] [address] Care Team Providers Care Hand Scraper Name Role Phone Julito Banuelos MD Primary Care Provider [phone] Allergies Active Allergy Reactions Criticality Noted Date Comments Sulfa (Sulfonamide Antibiotics) Rash 04/2018 Medications atorvastatin (LIPITOR) 40 mg tablet Take 1 tablet by mouth once daily. 07/16/2018 Active fluticasone (50 mcg per actuation) nasal solution (FLONASE) Inhale 2 Sprays into both nostrils once daily. 07/07/2018 Active ADVAIR DISKUS 500-50 mcg/dose diskus inhaler Inhale 1 Puff by mouth 2 times daily. 07/27/2018 Active furosemide (LASIX) 20 mg tablet Take 1 tablet by mouth once daily. 07/15/2018 Active gabapentin (NEURONTIN) 100 mg capsule Take 1 capsule by mouth once daily. 04/27/2018 Active lamoTRIgine (LAMICTAL) 150 mg tablet Take 1 tablet by mouth 2 times daily. 06/02/2018 Active levalbuterol (XOPENEX HFA) 45 mcg/actuation inhaler Inhale 2 Puffs by mouth every 6 hours if needed. 05/12/2018 Active levothyroxine (SYNTHROID) 75 mcg tablet Take 1 tablet by mouth once daily. 05/07/2018 Active losartan (COZAAR) 25 mg tablet Take 1 tablet by mouth once daily. 05/26/2018 Active metoprolol succinate (TOPROL XL) 100 mg Sustained-Relea se tablet Take 1 tablet by mouth once daily. 07/01/2018 Active montelukast (SINGULAIR) 10 mg tablet Take 1 tablet by mouth once daily. 07/30/2018 Active nitroglycerin (NITROSTAT) 0.[address] 1 tablet under the tongue one time if needed. 07/16/2018 Active pantoprazole (PROTONIX) 40 mg delayed-release tablet Take 1 tablet by mouth once daily. 06/29/2018 Active Social History Tobacco Use Types Packs/Day Years Used Date Smoking Tobacco: Never Smokeless Tobacco: Never Comments No Sex and Gender Information Value Date Recorded Sex Assigned at Not on file Legal Sex Female 6:13 AM BUSINESS INTELLIGENCE DIRECTOR Gender Identity Not on file Sexual Orientation Not on file Obstetrics History Last Filed Vital Signs Vital Sign Reading Time Taken Comments Blood Pressure 159/79 10/17/2018 10:16 AM BUSINESS INTELLIGENCE DIRECTOR Pulse 78 10/17/2018 10:16 AM BUSINESS INTELLIGENCE DIRECTOR Temperature 36.7 C (98 F) 10/17/2018 10:16 AM BUSINESS INTELLIGENCE DIRECTOR Respiratory Rate 20 10/17/2018 10:16 AM BUSINESS INTELLIGENCE DIRECTOR Oxygen Saturation 96% 10/17/2018 10:16 AM BUSINESS INTELLIGENCE DIRECTOR Inhaled Oxygen Concentration - - Weight 98 kg (216 lb) 10/17/2018 10:16 AM BUSINESS INTELLIGENCE DIRECTOR Height 172.7 cm (5' 8) 10/17/2018 10:16 AM BUSINESS INTELLIGENCE DIRECTOR Body Mass Index 32.84 10/17/2018 10:16 AM BUSINESS INTELLIGENCE DIRECTOR Plan of Treatment Health Maintenance Due Date Last Done Comments Tdap 1952 Depression screening for age 12+ 1953 BMI (ht and wt on same day) for age 18+ 1959 Tetanus booster 1961 Pneumococcal series for age 50+ (1 of 1 - PCV) 1991 Zoster (shingles) series for age 50+ (1 of 2) 1991 DEXA/DXA scan for age 65+ 2006 Medicare Wellness for age 65+ 2006 RSV vaccine for adults or pr egnancy (1 - 1-dose 75+ series) 2016 COVID-19 vaccine series ( season) 2024 03/03/2022, 12/25/2020, 11/30/2020 Influenza for age 65+ 06/26/2024 Insurance MEDICARE PART B HB ONLY [employer] [place] BLUE HB ONLY [employer] MEDICARE ADVANTAGE MR Care Teams Hand Scraper Relationship Specialty Start Date End Date Julito Banuelos MD PCP - General Family Practice 10/17/18
--- OUTSIDE RECORDS SUMMARY | 2024-12-16 22:24 | XMS_ITS | Encounter Summary ---
Author Organization [place] Address [address] [facility] [place] [address] Care Team Providers Care Dextrine Mixer Name Role Phone Andrew Lu MD Primary Care Provider [phone] Niko Resendiz MD Primary Care Provider Carlie Mac MD Primary Care Provide r Angella Mendieta MD Primary Care Provider Julito Banuelos MD Primary Care Provider [phone] Julito Banuelos MD Unavailable Julito Banuelos MD Unavailable Aleshia Henriquez RD Unavailable Unavailable Mary Kay Jones [facility] Unavailable Unavailable Susannah Blankenship [facility] Unavailable [phone] Carolyn Huynh [facility] Unavailable [phone] Vika Kevin APRN BRASS PLATER Unavailable + Marilyn Willard MD Unavailable [phone] Carie Varela DO Unavailable [phone] Maylin May NP Unavailable [phone] Marisa Rodrigues RN Unavailable Unavailable Vilma Long MD Unavailable + [phone] Yasmeen Pendleton [facility] Unavailable [phone] Cole George Unavailable Fletcher Russell Unavailable Unavailable Bautista Casey MD Unavailable [phone] TatyanaJasmyn anand [facility] Unavailable [phone] Vika Kevin APRN [facility] Primary Care Prov ider Vika Kevin APRN [facility] Primary Care Prov ider Yasmeen Pendleton [facility] Unavailable [phone] Vika Kevin APRN [facility] Primary Care Prov ider Encounter Details Date Type Department Care Team (Late st Contact Info) Description 07/02/[address] [phone] Jolene Martin Social History Tobacco Use Types Packs/Day Years Used Date Smoking Tobacco: Former Cigarettes 0.3 15 0 10/26/1961 - 10/26/1976 Smokeless Tobacco: Never Alcohol Use Standard Drinks/Week Comments Yes 0 (1 standard drink = 0.6 oz pur e alcohol) 1 wine 2x qweek Comments No Sex and Gender Information Value Date Recorded Sex Assigned at Not on file Legal 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 LEARNING STRATEGIST Gender Identity Not on file Sexual Orientation Not on file documented as of this encounter Plan of Treatment Not on file documented as of this encounter Visit Diagnoses Not on filedocumented in this encounter Additional Health Concerns Infection Onset Date Last Indicated Resolved Time Rule Out COVID-19 07/25/2020 07/25/2020 07/26/2020 3:02 PM CDT Rule Out COVID-19 12/04/2020 12/04/2020 12/05/2020 6:04 PM LEARNING STRATEGIST documented as of this encounter Care Teams Dextrine Mixer Relationship Specialty Start Date End Date Andrew Lu MD XXX RETIRED XXX [address] [place] [phone] PCP - General 12/10/01 01/10/14 Niko Resendiz MD [address] [address] PCP - General Internal Medicine 01/11/14 01/29/14 Carlie Mac MD [address] [place] [address] PCP - General Pediatrics 01/30/14 07/17/15 Angella Mendieta MD [address] [place] [address] 23165 PCP - General Family Practice 07/18/15 09/11/15 Julito Banuelos MD [address] [place] [address] 50986 PCP - General Family Practice 09/12/15 09/23/21 Julito Banuelos MD [address] [place] [address] 16650 PCP - Assigned PCP 02/17/16 12/28/18 Vika Kevin APRN BRASS PLATER [address] [place] [address] 42460 PCP - General Nurse Practitioner - Family 09/24/21 03/05/22 Vika Kevin APRN BRASS PLATER [address] [place] [address] 03794 PCP - General Nurse Practitioner - Family 03/18/22 06/18/22 Vika Kevin APRN BRASS PLATER [address] [place] [address] 514762 PCP - General Nurse Practitioner - Family 07/24/22 Julito Banuelos MD [address] [place] [address] 054672 Assigned PCP 02/17/16 07/21/20 Aleshia Henriquez, DAVE [address] [place] [address] 75997 Envelope Folder Dietitian, Registered 04/14/19 Mary Kay Jones, [facility] Pharmacist 08/01/19 04/20/20 Susannah Blankenship, [facility] [address] [place] [address] 8[address] [place], [place] [address]245 Pharmacist Pharmacist 08/08/19 04/15/21 [facility] [address] [place], [place] [address] Pharmacist Pharmacist 06/25/20 04/15/21 Vika Kevin APRN BRASS PLATER [address] [place] [address] 098992 Assigned PCP 07/22/20 11/16/24 Marilyn Willard MD 420 [facility] [address] [place], [place] [address] Assigned Surgical Provider 08/17/20 08/16/24 Carie Varela DO [address] [place], [place] [address] Assigned Heart and Vascular Provider 08/17/20 01/19/21 Maylin May, JENNY [address] [place] [address] Assigned Pediatric Specialist Provider 12/16/20 06/13/22 Marisa Rodrigues, RN Clinic Certified Nurse Operating Room 01/15/21 02/26/21 Vilma Long MD [address] [place] [address] Assigned Heart and Vascular Provider 01/20/21 07/20/21 Yasmeen Pendleton [facility] [address] [place] [address] Pharmacist Pharmacist 06/04/21 01/15/22 Cole George LISW Lead Certified Nurse Operating Room 06/13/21 10/07/21 Fletcher Up Community Health Worker 06/13/21 09/12/21 Bautista Casey MD [address] [place] [address] Assigned Heart and Vascular Provider 07/21/21 01/16/23 Jasmyn Oliver CHW Community Health Worker 09/13/21 10/07/21 Yasmeen Pendleton [facility] [address] [place] [address] 342615 Assigned MTM Pharmacist 03/22/22 01/02/23 documented as of this encounter
--- OUTSIDE RECORDS SUMMARY | 2024-12-16 22:24 | XMS_ITS | Encounter Summary ---
Author Organization [place] Address [address] [place] [address] Care Team Providers Care Manufacturing Test Engineer Name Role Phone Carlie Mac MD Primary Care Provide r Angella Mendieta MD Primary Care Provider Julito Banuelos MD Primary Care Provider [phone] Julito Banuelos MD Unavailable Julito Banuelos MD Unavailable Aleshia Henriquez RD Unavailable Unavailable Mary Kay Jones [facility] Unavailable Unavailable Susannah Blankenship [facility] Unavailable Carolyn Huynh [facility] Unavailable [phone] Vika Kevin APRN DIRECTOR SURFACE TRANSPORTATION Unavailable + Marilyn Willard MD Unavailable Carie Varela DO Unavailable Maylin May NP Unavailable [phone] Marisa Hernandez RN Unavailable Unavailable Vilma Long MD Unavailable Yasmeen Pendleton [facility] Unavailable [phone] Cole George Unavailable Fletcher Russell Unavailable Unavailable IpBautista MD Unavailable Jasmyn Oliver CH Unavailable [phone] Vika Kevin APRN [facility] Primary Care Prov ider Vika Kevin APRN [facility] Primary Care Prov ider Yasmeen Pendleton [facility] Unavailable Vika Kevin APRN [facility] Primary Care Prov ider Encounter Details Date Type Department Care Team (Late st Contact Info) Description 10/12/2014 MyC Medical Advice [address] [phone] Sara Robison Y, SAND MILL OPERATOR CORE SAND Social History Tobacco Use Types Packs/Day Years Used Date Smoking Tobacco: Former Cigarettes 0.3 15 0 10/26/1961 - 10/26/1976 Smokeless Tobacco: Never Alcohol Use Standard Drinks/Week Comments Yes 0 (1 standard drink = 0.6 oz pur e alcohol) 1-2 glasses of wine weekly Comments No Sex and Gender Information Value Date Recorded Sex Assigned at Not on file Legal 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 CHIEF PORT DIRECTOR Gender Identity Not on file Sexual [...] Out COVID-19 12/04/2020 12/04/2020 12/05/2020 6:04 PM CHIEF PORT DIRECTOR documented as of this encounter Care Teams Manufacturing Test Engineer Relationship Specialty Start Date End Date Carlie Mac MD [address] [place] [address] PCP - General Pediatrics 01/30/14 07/17/15 Angella Mendieta MD [address] [place] [address] PCP - General Family Practice 07/18/15 09/11/15 Julito Banuelos MD [address] [place] [address] PCP - General Family Practice 09/12/15 09/23/21 Julito Banuelos MD [address] [place] [address] PCP - Assigned PCP 02/17/16 12/28/18 Vika Kevin APRN DIRECTOR SURFACE TRANSPORTATION [address] [place] [address] PCP - General Nurse Practitioner - Family 09/24/21 03/05/22 Vika Kevin APRN DIRECTOR SURFACE TRANSPORTATION [address] [place] [address] PCP - General Nurse Practitioner - Family 03/18/22 06/18/22 Vika Kevin APRN DIRECTOR SURFACE TRANSPORTATION [address] [place] [address] PCP - General Nurse Practitioner - Family 07/24/22 Julito Banuelos MD [address] [place] [address] Assigned PCP 02/17/16 07/21/[address] [place] [address] Jigsawyer Dietitian, Registered 04/14/19 Mary Kay Jones, [facility] Pharmacist 08/01/19 04/20/20 Susannah Blankenship, [facility] 420 [facility] [address] [place] [address] Pharmacist Pharmacist 08/08/19 04/15/21 Carolyn Huynh, [facility] [address] [place], [place] [address] Pharmacist Pharmacist 06/25/20 04/15/21 Vika Kevin, BRAIDER OPERATOR DIRECTOR SURFACE TRANSPORTATION [address] [place] [address] 142072 Assigned PCP 07/22/20 11/16/24 Marilyn Willard MD 420 [facility] [address] [place], [place] [address] Assigned Surgical Provider 08/17/20 08/16/24 Carie Varela DO [address] [place] [address] Assigned Heart and Vascular Provider 08/17/20 01/19/21 Maylin May NP [address] [place] [address] Assigned Pediatric Specialist Provider 12/16/20 06/13/22 Marisa Rodrigues, RN Clinic Global Compensation Analyst 01/15/21 02/26/21 Vilma Long MD [address] [place] [address] Assigned Heart and Vascular Provider 01/20/21 07/20/21 Yasmeen Pendleton [facility] [address] [place] [address] Pharmacist Pharmacist 06/04/21 01/15/22 Cole George LISW Lead Global Compensation Analyst 06/13/21 10/07/21 Fletcher Up Community Health Worker 06/13/21 09/12/21 Bautista Casey MD [address] [place] [address] Assigned Heart and Vascular Provider 07/21/21 01/16/23 Jasmyn Oliver CHW Community Health Worker 09/13/21 10/07/21 Yasmeen Pendleton [facility] [address] [place] [address] Assigned MTM Pharmacist 03/22/22 01/02/23 documented as of this encounter
--- OUTSIDE RECORDS SUMMARY | 2024-12-16 22:24 | XMS_ITS | Encounter Summary ---
Author Organization [place] Address [address] [facility] [place] [address] Care Team Providers Care Slipper Maker Name Role Phone Andrew Lu MD Primary Care Provider [phone] Niko Resendiz MD Primary Care Provider Carlie Mac MD Primary Care Provide r Angella Mendieta MD Primary Care Provider Julito Banuelos MD Primary Care Provider [phone] Julito Banuelos MD Unavailable Julito Banuelos MD Unavailable Aleshia Henriquez RD Unavailable Unavailable Mary Kay Jones [facility] Unavailable Unavailable Susannah Blankenship [facility] Unavailable [phone] Carolyn Huynh [facility] Unavailable [phone] Vika Kevin APRN BODY DESIGN CHECKER Unavailable + Marilyn Willard MD Unavailable [phone] Carie Varela DO Unavailable [phone] Maylin May NP Unavailable [phone] Marisa Rodrigues RN Unavailable Unavailable Vilma Long MD Unavailable + [phone] Yasmeen Pendleton [facility] Unavailable [phone] Cole George Unavailable Fletcher Russell Unavailable Unavailable Bautista Casey MD Unavailable [phone] TatyanaJasmyn anand [facility] Unavailable [phone] Vika Kevin APRN [facility] Primary Care Prov ider Vika Kevin APRN [facility] Primary Care Prov ider Yasmeen Pendleton [facility] Unavailable [phone] Vika Kevin APRN [facility] Primary Care Prov ider Encounter Details Date Type Department Care Team (Late st Contact Info) Description 05/19/[address] [phone] oJlene Martin Social History Tobacco Use Types Packs/Day Years Used Date Smoking Tobacco: Former Cigarettes 0.3 15 0 10/26/1961 - 10/26/1976 Smokeless Tobacco: Never Alcohol Use Standard Drinks/Week Comments Yes 0 (1 standard drink = 0.6 oz pur e alcohol) 1 wine 2x qweek Comments No Sex and Gender Information Value Date Recorded Sex Assigned at Not on file Legal 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 FILLING 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 Gender Identity Not on file Sexual Orientation Not on file documented as of this encounter Plan of Treatment Not on file documented as of this encounter Visit Diagnoses Not on filedocumented in this encounter Additional Health Concerns Infection Onset Date Last Indicated Resolved Time Rule Out COVID-19 07/25/2020 07/25/2020 07/26/2020 3:02 PM CDT Rule Out COVID-19 12/04/2020 12/04/2020 12/05/2020 6:04 PM FILLING 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 documented as of this encounter Care Teams Slipper Maker Relationship Specialty Start Date End Date Andrew Lu MD XXX RETIRED XXX [address] [place] [phone] PCP - General 12/10/01 01/10/14 Niko Resendiz MD [address] [address] PCP - General Internal Medicine 01/11/14 01/29/14 Carlie Mac MD [address] [place] [address] PCP - General Pediatrics 01/30/14 07/17/15 Angella Mendieta MD [address] [place] [address] PCP - General Family Practice 07/18/15 09/11/15 Julito Banuelos MD [address] [place] [address] 8[address]21 PCP - General Family Practice 09/12/15 09/23/21 Julito Banuelos MD [address] [place] [address] PCP - Assigned PCP 02/17/16 12/28/18 Vika Kevin APRN BODY DESIGN CHECKER [address] [place] [address]298 PCP - General Nurse Practitioner - Family 09/24/21 03/05/22 Vika Kevin APRN BODY DESIGN CHECKER [address] [place] [address] PCP - General Nurse Practitioner - Family 03/18/22 06/18/22 Vika Kevin APRN BODY DESIGN CHECKER [address] [place] [address] 201942 PCP - General Nurse Practitioner - Family 07/24/22 Julito Banuelos MD [address] [place] [address] 547092 Assigned PCP 02/17/16 07/21/20 Aleshia Henriquez, DAVE [address] [place] [address] 25727 Radial Drill Press Set Up Operator Dietitian, Registered 04/14/19 Mary Kay Jones, [facility] Pharmacist 08/01/19 04/20/20 Susannah Blankenship, [facility] [address] [place] [address] 812 [place], [place] 46[address] Pharmacist Pharmacist 08/08/19 04/15/21 [facility] [address] [place], [place] [address] Pharmacist Pharmacist 06/25/20 04/15/21 Vika Kevin APRN BODY DESIGN CHECKER [address] [place] [address] 719732 Assigned PCP 07/22/20 11/16/24 Marilyn Willard MD 420 [facility] [address] [place], [place] [address]395 Assigned Surgical Provider 08/17/20 08/16/24 Carie Varela DO [address] [place], [place] [address] Assigned Heart and Vascular Provider 08/17/20 01/19/21 Maylin May, JENNY [address] [place] [address] Assigned Pediatric Specialist Provider 12/16/20 06/13/22 Marisa Rodrigues, RN Clinic Hospice Chaplain 01/15/21 02/26/21 Vilma Long MD [address] [place] [address] Assigned Heart and Vascular Provider 01/20/21 07/20/21 Yasmeen Pendleton [facility] [address] [place] [address] Pharmacist Pharmacist 06/04/21 01/15/22 Cole George LISW Lead Hospice Chaplain 06/13/21 10/07/21 Fletcher Up Community Health Worker 06/13/21 09/12/21 Bautista Casey MD [address] [place] [address] Assigned Heart and Vascular Provider 07/21/21 01/16/23 Jasmyn Oliver CHW Community Health Worker 09/13/21 10/07/21 Yasmeen Pendleton [facility] [address] [place] [address] [phone] Assigned MTM Pharmacist 03/22/22 01/02/23 documented as of this encounter
--- OUTSIDE RECORDS SUMMARY | 2024-12-16 22:24 | XMS_ITS | Encounter Summary ---
Author Organization [place] Address [address] [facility] [place] [address] Care Team Providers Care Jewelry Mechanic Name Role Phone Andrew Lu MD Primary Care Provider [phone] Niko Resendiz MD Primary Care Provider Carlie Mac MD Primary Care Provide r Angella Mendieta MD Primary Care Provider Julito Banuelos MD Primary Care Provider [phone] Julito Banuelos MD Unavailable Julito Banuelos MD Unavailable Aleshia Henriquez RD Unavailable Unavailable Mary Kay Jones [facility] Unavailable Unavailable Susannah Blankenship [facility] Unavailable [phone] Carolyn Huynh [facility] Unavailable [phone] Vika Kevin APRN SOFTWARE INTERN Unavailable + Marilyn Willard MD Unavailable [phone] Carie Varela DO Unavailable [phone] Maylin May NP Unavailable [phone] Marisa Rodrigues RN Unavailable Unavailable Vilma Long MD Unavailable + [phone] Yasmeen Pendleton [facility] Unavailable [phone] Cole George Unavailable Fletcher Russell Unavailable Unavailable Bautista Casey MD Unavailable Jasmyn Oliver [facility] Unavailable [phone] Vika Kevin CARBON FURNACE OPERATOR [facility] Primary Care Prov ider Vika Kevin APRN [facility] Primary Care Prov ider Yasmeen Pendleton [facility] Unavailable Vika Kevin [facility] Primary Care Prov ider Encounter Details Date Type Department Care Team (Late st Contact Info) Description 09/22/2010 MyC Medical Advice [address] [phone] Andrew Lu MD XXX RETIRED XXX [address] [place] [address] [phone] Social History Tobacco Use Types Packs/Day Years Used Date Smoking Tobacco: Former Cigarettes 0.3 15 0 10/26/1961 - 10/26/1976 Alcohol Use Standard Drinks/Week Comments Yes 0 (1 standard drink = 0.6 oz pur e alcohol) 1 wine 2x qweek Comments No Sex and Gender Information Value Date Recorded Sex Assigned at Not on file Legal 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 SUPERVISOR OF RESEARCH Gender Identity Not on file Sexual Orientation Not on file documented as of this encounter Miscellaneous Notes * Telephone Encounter - Andrew Lu - 10/02/2010 4:30 PM CST not clear why the results are taking so long? RVISOR OF RESEARCH * Telephone Encounter - Vika Downing - 09/30/2010 3:17 PM CST The sleep study has not be read by DR Suggs yet. They will fax it over one it has been read. RVISOR OF RESEARCH * Telephone Encounter - CoronaBo - 09/23/2010 10:28 AM CST Please get the sleep study results scanned int o epic. RVISOR OF RESEARCH documented in this encounter Plan of Treatment Not on file documented as of this encounter Visit Diagnoses Not on filedocumented in this encounter Additional Health Concerns Infection Onset Date Last Indicated Resolved Time Rule Out COVID-19 07/25/2020 07/25/2020 07/26/2020 3:02 PM CDT Rule Out COVID-19 12/04/2020 12/04/2020 12/05/2020 6:04 PM SUPERVISOR OF RESEARCH documented as of this encounter Care Teams Jewelry Mechanic Relationship Specialty Start Date End Date Andrew Lu MD XXX RETIRED XXX [address] [place] [phone] PCP - General 12/10/01 01/10/14 Niko Resendiz MD [address] [address] PCP - General Internal Medicine 01/11/14 01/29/14 Carlie Mac MD [address] [place] [address] PCP - General Pediatrics 01/30/14 07/17/15 Angella Mendieta MD [address] [place] [address] PCP - General Family Practice 07/18/15 09/11/15 Julito Banuelos MD [address] [place] [address]39 PCP - General Family Practice 09/12/15 09/23/21 Julito Banuelos MD [address] [place] [address] PCP - Assigned PCP 02/17/16 12/28/18 Vika Kevin APRN SOFTWARE INTERN [address] [place] [address] PCP - General Nurse Practitioner - Family 09/24/21 03/05/22 Vika Kevin APRN SOFTWARE INTERN [address] [place] [address] PCP - General Nurse Practitioner - Family 03/18/22 06/18/22 Vika Kevin APRN SOFTWARE INTERN [address] [place] [address] 06[address] PCP - General Nurse Practitioner - Family 07/24/22 Julito Banuelos MD [address] [place] [address] Assigned PCP 02/17/16 07/21/[address] [place] [address] Workplace Rehabilitation Officer Dietitian, Registered 04/14/19 Mary Kay Jones [facility] Pharmacist 08/01/19 04/20/20 Susannah Blankenship [facility] [address] [place] [address] 812 [place] [address] Pharmacist Pharmacist 08/08/19 04/15/21 Carolyn Huynh [facility] [address] [place] [address] Pharmacist Pharmacist 06/25/20 04/15/21 Vika Kevin APRN SOFTWARE INTERN [address] [place], [place] 07[address] Assigned PCP 07/22/20 11/16/24 Marilyn Willard MD 420 [facility] [address] [place], [place] [address] Assigned Surgical Provider 08/17/20 08/16/24 Carie Varela DO [address] [place] [address] Assigned Heart and Vascular Provider 08/17/20 01/19/21 Maylin May NP [address] [place], [place] [id number] Assigned Pediatric Specialist Provider 12/16/20 06/13/22 Marisa Rodrigues RN Clinic Manager Of Drilling 01/15/21 02/26/21 Vilma Long MD [address] [place] [address] Assigned Heart and Vascular Provider 01/20/21 07/20/21 Yasmeen Pendleton [facility] [address] [place] [address] Pharmacist Pharmacist 06/04/21 01/15/22 Cole George LISW Lead Manager Of Drilling 06/13/21 10/07/21 Fletcher Up Community Health Worker 06/13/21 09/12/21 Bautista Casey MD [address] [place] [address] Assigned Heart and Vascular Provider 07/21/21 01/16/23 Jasmyn Oliver CHW Community Health Worker 09/13/21 10/07/21 Yasmeen Pendleton [facility] [address] [place], [place] [address] Assigned MTM Pharmacist 03/22/22 01/02/23 documented as of this encounter
--- OUTSIDE RECORDS SUMMARY | 2024-12-16 22:24 | XMS_ITS | Encounter Summary ---
Author Organization [place] Address [address] [facility] [place] [address] Care Team Providers Care Saw Setter Name Role Phone Julito Banuelos MD Primary Care Provider [phone] Unavailable Unavailable Susannah Blankenship [facility] Unavailable [phone] Carolyn Huynh [facility] Unavailable [phone] Vika Kevin APRN [facility] Unavailable + Marilyn Willard MD Unavailable [phone] Maylin May NP Unavailable [phone] Vilma Long MD Unavailable + [phone] Yasmeen Pendleton [facility] Unavailable [phone] Cole George Unavailable Fletcher Russell Unavailable Unavailable Bautista Casey MD Unavailable [phone] Jasmyn Oliver Unavailable [phone] Vika Kevin APRN [facility] Primary Care Prov ider Vika Kevin APRN [facility] Primary Care Prov ider Yasmeen Pendleton [facility] Unavailable Vika Kevin APRN, CNP Primary Care Prov ider Reason for Visit * Reason Onset Date Comments Forms 04/04/2021 catheter orders - [facility] Encounter Details Date Type Department Care Team (Late st Contact Info) Description 04/04/[address] [phone] [place] [address] [place] [address] Forms (catheter orders - [facility]) Social History Tobacco Use Types Packs/Day Years [...] on file Legal 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 SYSTEM TECHNOLOGIST Gender Identity Not on file Sexual Orientation [...] have Coronavirus / COVID-19? No / Unsure 03/11/2021 4:36 AM CDT documented as of this encounter Miscellaneous Notes * Telephone Encounter - Vika Kevin APRN CNP - 04/05/2021 4:38 PM CDT Images from the original note were not included. Signed given to DANIA Gee to fax. CHUN Guadarrama * [facility]/04/[facility]21 2:14 PM CDT Reason for Call: Form, our goal is to have forms completed with 72 hours, however, some forms may require a visit or additional information. Type of letter, form or note: medical - catheter orders Who is the form from?: [facility] (if other please explain) Where did the form come from: form was faxed in What clinic location was the form placed at?: [place] Where the form was placed: Dr. Banuelos Box/Folder What number is listed as a contact on the form?: [phone] Call taken on 04/04/2021 at 2:14 PM by Hunter Ponce documented in this encounter Plan of Treatment Not on file documented as of this encounter Visit Diagnoses Not on filedocumented in this encounter Additional Health Concerns Assessment Noted Time PHQ-9 Depression Total Score: 10 020 9:30 AM SYSTEM TECHNOLOGIST documented as of this encounter Care Teams Saw Setter Relationship Specialty Start Date End Date Julito Banuelos MD [address] [place] [address] PCP - General Family Practice 09/12/15 09/23/21 Vika Kevin APRN SOFTBALL WINDER [address] [place] [address]64 PCP - General Nurse Practitioner - Family 09/24/21 03/05/22 Vika Kevin APRN SOFTBALL WINDER [address] [place] [address] PCP - General Nurse Practitioner - Family 03/18/22 06/18/22 Vika Kevin APRN SOFTBALL WINDER [address] [place] [address]007 PCP - General Nurse Practitioner - Family 07/24/[address] [place] [address] Point Of Care Specialist Dietitian, Registered 04/14/19 Susannah Blankenship, [facility] [address] [facility] [address] [place] [address] Pharmacist Pharmacist 08/08/19 04/15/21 Carolyn Huynh [facility] [address] [place] [address] Pharmacist Pharmacist 06/25/20 04/15/21 Vika Kevin APRN [employer] [address] [place] [address] 732242 Assigned PCP 07/22/20 11/16/24 Marilyn Willard MD [address] [facility] [address] [place] [address] Assigned Surgical Provider 08/17/20 08/16/24 Maylin May NP [address] [place] [address] Assigned Pediatric Specialist Provider 12/16/20 06/13/22 Vlima Long MD [address] [place] [address] Assigned Heart and Vascular Provider 01/20/21 07/20/21 Yasmeen Pendleton [facility] [address] [place] [address] Pharmacist Pharmacist 06/04/21 01/15/22 Cole George LISW Lead Asphalt Layer 06/13/21 10/07/21 Fletcher Up Community Health Worker 06/13/21 09/12/21 Bautista Casey MD [address] [place] [address] Assigned Heart and Vascular Provider 07/21/21 01/16/23 Jasmyn Oliver Bryanna Community Health Worker 09/13/21 10/07/21 Yasmeen Pendleton [facility] [address] [place], [place] [address] Assigned MTM Pharmacist 03/22/22 01/02/23 documented as of this encounter
--- OUTSIDE RECORDS SUMMARY | 2024-12-16 22:24 | XMS_ITS | Encounter Summary ---
Author Organization [place] Address [address] [facility] [place] [address] Care Team Providers Care Feather Renovator Name Role Phone Julito Banuelos MD Primary Care Provider [phone] Unavailable Unavailable Susannah Blankenship [facility] Unavailable [phone] Carolyn Huynh [facility] Unavailable [phone] Vika Kevin APRN [facility] Unavailable + Marilyn Willard MD Unavailable [phone] Maylin May NP Unavailable [phone] Vilma Long MD Unavailable + [phone] Yasmeen Pendleton [facility] Unavailable [phone] Cole George Unavailable Fletcher Russell Unavailable Unavailable Bautista Casey MD Unavailable [phone] Jasmyn Oliver Unavailable [phone] Vika Kevin APRN [facility] Primary Care Prov ider Vika Kevin APRN [facility] Primary Care Prov ider Yasmeen Pendleton [facility] Unavailable Vika Kevin APRN [facility] Primary Care Prov ider Reason for Visit * Reason Onset Date Comments Forms 04/02/2021 [facility] Encounter Details Date Type Department Care Team ([facility] st Contact Info) Description 04/02/[address] [phone] Julito Banuelos MD [address] [place] [address] Forms ([facility]) Social History Tobacco Use Types [...] on file Legal 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 DRYWALL CARRIER Gender Identity Not on file Sexual Orientation [...] encounter Miscellaneous Notes * Telephone Encounter - Julito Banuelos MD - 04/03/2021 6:17 PM CDT Forms reviewed and signed * Telephone Encounter - Leann Massey - 04/02/2021 8:42 AM CDT Reason for Call: Form, our goal is to have forms completed with 72 hours, however, some forms may require a visit or additional information. Type of letter, form or note: medical Who is the form from?: [facility] (if other please explain) Where did the form come from: form was faxed in What clinic location was the form placed at?: [place] Where the form was placed: Julito Banuelos MD Box/Folder What number is listed as a contact on the form?: Fax to [phone] Call taken on 04/02/2021 at 8:42 AM by Leann Massey documented in this encounter Plan of Treatment Not on file documented as of this encounter Visit Diagnoses Not on filedocumented in this encounter Additional Health Concerns Assessment Noted Time PHQ-9 Depression Total Score: 10 020 9:30 AM DRYWALL CARRIER documented as of this encounter Care Teams Feather Renovator Relationship Specialty Start Date End Date Julito Banuelos MD [address] [place] [address] PCP - General Family Practice 09/12/15 09/23/21 Vika Kevin APRN ROUNDING 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 [address] [place] [address] PCP - General Nurse Practitioner - Family 09/24/21 03/05/22 Vika Kevin APRN ROUNDING 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 [address] [place] [address] PCP - General Nurse Practitioner - Family 03/18/22 06/18/22 Vika Kevin APRN ROUNDING 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 [address] [place] [address] PCP - General Nurse Practitioner - Family 07/24/[address] [place] [address] Wood [employer] Miller Dietitian, Registered 04/14/19 Susannah Blankenship, [facility] [address] [facility] [address] [place], [place] [address] Pharmacist Pharmacist 08/08/19 04/15/21 Carolyn Huynh [facility] [address] [place] [address] Pharmacist Pharmacist 06/25/20 04/15/21 Vika Kevin APRN ROUNDING 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 [address] [place], [place] [address] Assigned PCP 07/22/20 11/16/24 Marilyn Willard MD [address] [facility] [address] [place], [place] [address] Assigned Surgical Provider 08/17/20 08/16/24 Maylin May, JENNY [address] [place] [address] Assigned Pediatric Specialist Provider 12/16/20 06/13/22 Vilma Long MD [address] [place] [address] Assigned Heart and Vascular Provider 01/20/21 07/20/21 Yasmeen Pendleton [facility] [address] [place], [place] [address] Pharmacist Pharmacist 06/04/21 01/15/22 Cole George LISW Lead Commercial Energy Auditor 06/13/21 10/07/21 Fletcher Up Community Health Worker 06/13/21 09/12/21 Bautista Casey MD [address] [place] [address] Assigned Heart and Vascular Provider 07/21/21 01/16/23 Jasmyn Oliver CHW Community Health Worker 09/13/21 10/07/21 Yasmeen Pendleton, [facility] [address] [place] [address] Assigned MTM Pharmacist 03/22/22 01/02/23 documented as of this encounter
--- OUTSIDE RECORDS SUMMARY | 2024-12-16 22:24 | XMS_ITS | Encounter Summary ---
Author Organization [place] Address [address] [facility] [place] [address] Care Team Providers Care Grubber Name Role Phone Julito Banuelos MD Primary Care Provider [phone] Unavailable Unavailable Susannah Blankenship [facility] Unavailable [phone] Carolyn Huynh [facility] Unavailable [phone] Vika Kevin APRN [facility] Unavailable + Marilyn Willard MD Unavailable [phone] Maylin May NP Unavailable [phone] Vilma Long MD Unavailable + [phone] Yasmeen Pendleton [facility] Unavailable [phone] Cole George Unavailable Fletcher Russell Unavailable Unavailable Bautista Casey MD Unavailable [phone] Jasmny Oliver Unavailable [phone] Vika Kevin APRN [facility] Primary Care Prov ider Vika Kevin APRN [facility] Primary Care Prov ider Yasmeen Pendleton [facility] Unavailable Vika Kevin APRN [facility] Primary Care Prov ider Reason for Visit * Reason Onset Date Comments Results 03/12/2021 Encounter Details Date Type Department Care Team (Late st Contact Info) Description 03/12/2021 Telephone [facility] Emergency Dept [address] [place] [phone] Dutch Carney, RN Results Social History Tobacco Use Types Packs/Day Years [...] on file Legal 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 SCRUB WHEEL OPERATOR Gender Identity Not on file Sexual [...] encounter Miscellaneous Notes * Telephone Encounter - Radha Dill, ROGERIO - 03/13/2021 12:07 PM CDT [facility] Emergency Department/Urgent Care Lab result notification: [place] ED lab result protocol used Urine culture Reason for call Notify of lab results, assess symptoms, review ED providers recommendations/discharge instructions (if necessary) and advise per ED lab result f/u protocol Lab Result Preliminary urine culture report on 03/13/21 shows the presence of bacteria(s): 10,000 to 50,000 colonies/mL Klebsiella AND 10,000 to 50,000 colonies/mL Gram negative rods (Enterobacter) aerogenes AND<10,000 colonies/mL Non lactose fermenting gram negative rods Emergency Dept/Urgent Care discharge antibiotic: None Recommendations per [facility] ED Lab result Urine culture protocol. Information table from Emergency Dept Provider visit on 03/11/21 Symptoms reported at ED visit (Chief complaint, HPI) See below ED providers Impression and Plan (applicable information) See below Miscellaneous information na litigation manager (Patient???s current Symptoms), include time called. [Insert Left message here if message left] 12:30PM: Spoke with the patient's [facility]FWAY nurse Beena BEATTY. She states that the patient is doing well today, has no concerns. RN Recommendations/Instructions per [place] ED lab result protocol Patient's nurse notified of lab result and treatment recommendations. Advised per ED lab urine culture protocol that since the patient is doing well with no urinary symptoms we will wait for the final culture result to treat. The patient's nurse is comfortable with the plan. She would like the preliminary urine culture faxed to the facility. The patient still has a clinic provider, not a facility provider, so the ED lab nurses will be treating this result. Advised that we will contact them with the final result. Preliminary result faxed to Beena BEATTY at [facility] at fax [phone]. Please Contact your PCP clinic or return to the Emergency department if your: ??? Symptoms return. ??? Symptoms worsen or other concerning symptom's. PCP follow-up Questions asked: YES Radha Dill RN [facility] Emergency Dept Lab Result RN Copy of Lab result Urine Culture Order: [id number] Status: Preliminary result ?Visible to patient: No (not released) Dx: Acute chest pain Specimen Information: Catheterized Urine ?? Component 2d ago Specimen Description Catheterized Urine Special Requests Specimen received in preservative P Culture Micro Abnormal 10,000 to 50,000 colonies/mL Klebsiella (Enterobacter) aerogenes P Culture Micro Abnormal 10,000 to 50,000 colonies/mL Gram negative rods P Culture Micro Abnormal <10,000 colonies/mL Non lactose fermenting gram negative rods P Culture Micro Susceptibility testing in progress P [facility] Spec[facility] Collected: 03/11/21 10:05 AM Last Resulted: 03/13/21 ??9:42 AM * Telephone Encounter - Dutch Carney RN - 03/12/2021 3:24 PM CDT [facility] Emergency Department Lab result notification [Adult-Female] [place] ED lab result protocol used Urine culture Reason for call Notify of lab results, assess symptoms, review ED providers recommendations/discharge instructions (if necessary) and advise per ED lab result f/u protocol Lab Result (including Rx patient on, if applicable) Preliminary urine culture report on 03/12/21 shows the presence of bacteria(s): ??10,000 to 50,000 colonies/mL Non lactose fermenting gram negative rods Emergency Dept/Urgent Care discharge antibiotic: None Recommendations per [facility] ED Lab result Urine culture protocol. ?? Information table from Emergency Dept Provider visit on 03/11/21 Symptoms reported at ED visit (Chief complaint, HPI) Chief Complaint: Chest Pain HPI History and ROS limited by dementia. Pat Rojas is a 80 year old female with history of Alzheimer's, CAD, HTN, asthma, and DM who presents with chest pain. The patient reports chest pain radiating to her right arm with associated palpitations that started while she going to bed. She took Aspirin and two Nitroglycerin withrelief of her pain after a few minutes. Her pain did recur and she took another 2 Nitroglycerin, again with relief of her pain. On EMS arrival she did still have some right arm pain. This improved once EMS helped reposition her arm to a more comfortable position. Her pain today is similar but not as severe with what she had related to her heart. Stress test in July 2020 was unchanged from previous study one year prior. She also endorses leg swelling. She has a permanent Corona catheter. EMS noted foul smelling urine and there was report to EMS of increased confusion. She says this was changed a few days ago. She had an ankle fracture that was surgically repair about 2 months ago. She just returned home about a week ago from a TCU stay. She denies any fever, lightheadedness, or shortness of breath Significant Medical hx, if applicable (i.e. CKD, diabetes) Alzheimers Allergies Allergies Allergen Reactions ??? Sulfamethoxazole Hives ??? Cefdinir Rash ??? Keflex [Cephalexin] Itching ??? Macrobid [Nitrofurantoin] Rash Rash Weight, if applicable Wt Readings from Last 2 Encounters: 03/11/21 97.5 kg (215 lb) 01/30/21 98.8 kg (217 lb 12.8 oz) Coumadin/Warfarin [Yes /No] No Creatinine Level (mg/dl) Creatinine Date Value Ref Range Status 03/11/2021 0.62 0.52 - 1.04 mg/dL Final Creatinine clearance (ml/min), if applicable Serum creatinine: 0.62 mg/dL 03/11/21 0458 Estimated creatinine clearance: 89.8 mL/min ED providers Impression and Plan (applicable information) Pat Rojas is a 80 year old female with a history of CAD status post stents who presents with chest pain. Their history and riskfactor analysis are significant for hypertension, hyperlipidemia, and age. The workup in the Emergency Department (see above for cardiac enzymes and EKG) is negative. However, my clinical suspicion of acute coronary syndrome is high enough to warrant further therapy and investigation. I will admit the patient to medicine service for further workup. The patient is is pain free after nitroglycerin and aspirin she took prearrival. Of note, she is found to have some foul-smelling urine. It appears that her Corona catheter has not been changed in over 4 weeks. We replace it and will then send a urinalysis and culture prior to administering any antibiotics. She is reportedly more confused than normal but she is having no other signs of urinary tract infection. We will hold off until these results are returned before treating her. I discussed with Dr. Shankar Alvarez who graciously agreed to admit the patient. The patient herself was in agreement as well. ED diagnosis Acute chest pain ED provider Vika Mayes MD litigation manager (Patient???s current Symptoms), include time called. [Insert Left message here if message left] At 3:30P, Left voicemail message requesting a call back to [facility] ED Lab Result RN at [phone]. RN is available every day between 9 a.m. and 5:30 p.m. Dutch Carney RN [facility] [employer] [facility] Emergency Dept Lab Result RN Copy of Lab result Contains abnormal data Urine Culture Order: [id number] Status: Preliminary result Visible to patient: No (not released) Dx: Acute chest pain Specimen Information: Catheterized Urine ?? Component 1d ago Specimen Description Catheterized Urine Special Requests Specimen received in preservative P Culture Micro Abnormal 10,000 to 50,000 colonies/mL Lactose fermenting gram negative rods P Culture Micro Culture in progress P [facility]ing [facility] Specimen Collected: 03/11/21 10:05 AM Last Resulted: 03/12/21 12:59 PM documented in this encounter Plan of Treatment Not on file documented as of this encounter Visit Diagnoses Not on filedocumented in this encounter Additional Health Concerns Assessment Noted Time PHQ-9 Depression Total Score: 10 020 9:30 AM SCRUB WHEEL OPERATOR documented as of this encounter Care Teams Grubber Relationship Specialty Start Date End Date Julito Banuelos MD [address] [place] [address] PCP - General Family Practice 09/12/15 09/23/21 Vika Kevin APRN PRINCIPAL GIFTS OFFICER [address] [place] [address] PCP - General Nurse Practitioner - Family 09/24/21 03/05/22 Vika Kevin APRN PRINCIPAL GIFTS OFFICER [address] [place] [address] PCP - General Nurse Practitioner - Family 03/18/22 06/18/22 Vika Kevin APRN PRINCIPAL GIFTS OFFICER [address] [place] [address] PCP - General Nurse Practitioner - Family 07/24/[address] [place] [address] Network Operations Center Technician Dietitian, Registered 04/14/19 Susannah Blankenship, [facility] [address] [facility] [address] [place], [place] [address] Pharmacist Pharmacist 08/08/19 04/15/21 Carolyn Huynh [facility] [address] [place] [address] Pharmacist Pharmacist 06/25/20 04/15/21 Vika Kevin APRN PRINCIPAL GIFTS OFFICER [address] [place] [address] 038902 Assigned PCP 07/22/20 11/16/24 Marilyn Willard MD [address] [facility] [address] [place], [place] [address] Assigned Surgical Provider 08/17/20 08/16/24 Maylin May, JENNY [address] [place] [address] Assigned Pediatric Specialist Provider 12/16/20 06/13/22 Vilma Long MD [address] [place], [place] [address] Assigned Heart and Vascular Provider 01/20/21 07/20/21 Yasmeen Pendleton [facility] [address] [place], [place] [address] Pharmacist Pharmacist 06/04/21 01/15/22 Cole George LISW Lead Curriculum Advisory Teacher 06/13/21 10/07/21 Fletcher Up Community Health Worker 06/13/21 09/12/21 Bautista Casey MD [address] [place] [address] Assigned Heart and Vascular Provider 07/21/21 01/16/23 Jasmyn Oliver CHW Community Health Worker 09/13/21 10/07/21 Yasmeen Pendleton [facility] [address] [place], [place] [address] Assigned MTM Pharmacist 03/22/22 01/02/23 documented as of this encounter
--- OUTSIDE RECORDS SUMMARY | 2024-12-16 22:24 | XMS_ITS | Encounter Summary ---
Author Organization [place] Address [address] [facility] [place] [address] Care Team Providers Care Canal Driver Name Role Phone Julito Banuelos MD Primary Care Provider [phone] Julito Banuelos MD Unavailable Aleshia Henriquez RD Unavailable Unavailable Susannah Blankenship [facility] Unavailable [phone] Carolyn Huynh [facility] Unavailable [phone] Vika Kevin APRN PRIMER POWDER BLENDER WET Unavailable + Marilyn Willard MD Unavailable [phone] Carie Varela DO Unavailable +[phone] Maylin May NP Unavailable [phone] Marisa Hernandez RN Unavailable Unavailable Vilma Long MD Unavailable + [phone] Yasmeen Pendleton [facility] Unavailable Cole George Unavailable Fletcher Russell Unavailable Unavailable Bautista Casey MD Unavailable [phone] Jasmyn Oliver Unavailable +[phone] Vika Kevin APRN PRIMER POWDER BLENDER WET Primary Care Prov ider Vika Kevin APRN [facility] Primary Care Prov ider Yasmeen Pendleton [facility] Unavailable [phone] Vika Kevin APRN [facility] Primary Care Prov ider Encounter Details Date Type Department Care Team (Late st Contact Info) Description 05/15/2020 MyC Medical Advice [address] [place] [address] Susannah Blankenship, [facility] [address] [facility] [address] [place] [address] Social History Tobacco Use Types Packs/Day Years [...] on file Legal 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 FORM SETTER SUPERVISOR Gender Identity Not on file Sexual Orientation Not on file Occupation Industry Job Start Date Job End Date Not on file Not on file Not on file Not on file COVID-19 Exposure Response Date Recorded In the last month, have you been in contact with someone who was confirmed or suspected to have Coronavirus / COVID-19? No / Unsure 05/18/2020 11:23 AM CDT documented as of this encounter Plan of Treatment Not on file documented as of this encounter Visit Diagnoses Not on filedocumented in this encounter Additional Health Concerns Infection Onset Date Last Indicated Resolved Time Rule Out COVID-19 07/25/2020 07/25/2020 07/26/2020 3:02 PM CDT Rule Out COVID-19 12/04/2020 12/04/2020 12/05/2020 6:04 PM FORM SETTER SUPERVISOR Assessment Noted Time PHQ-9 Depression Total Score: 8 07/18/20 19 12:06 PM CDT documented as of this encounter Care Teams Canal Driver Relationship Specialty [place] [address] [place] [address] PCP - General Family Practice 09/12/15 09/23/21 Vika Kevin APRN PRIMER POWDER BLENDER WET [address] [place] [address] PCP - General Nurse Practitioner - Family 09/24/21 03/05/22 Vika Kevin APRN PRIMER POWDER BLENDER WET [address] [place] [address]60 PCP - General Nurse Practitioner - Family 03/18/22 06/18/22 Vika Kevin APRN PRIMER POWDER BLENDER WET [address] [place] [address]15 PCP - General Nurse Practitioner - Family 07/24/22 Julito Banuelos MD [address] [place] [address] 834752 Assigned PCP 02/17/16 07/21/[address] [place] [address]75 Apparatus Cleaner Dietitian, Registered 04/14/19 Susannah Blankenship, [facility] [address] [place] [address] [address] [place] [address] Pharmacist Pharmacist 08/08/19 04/15/21 Carolyn Huynh [facility] [address] [place] [address] Pharmacist Pharmacist 06/25/20 04/15/21 Vika Kevin APRN PRIMER POWDER BLENDER WET [address] [place] [address]010 Assigned PCP 07/22/20 11/16/24 Marilyn Willard MD [address] [place] [address] [address] [place] [address] Assigned Surgical Provider 08/17/20 08/16/24 Carie Varela DO [address] [place] [address] Assigned Heart and Vascular Provider 08/17/20 01/19/21 Maylin May NP [address] [place] [address] Assigned Pediatric Specialist Provider 12/16/20 06/13/22 Marisa Rodrigues, RN Clinic Small Piece Cutter 01/15/21 02/26/21 Vilma Long MD [address] [place] [address] Assigned Heart and Vascular Provider 01/20/21 07/20/21 Yasmeen Pendleton [facility] [address] [place] [address] 887905 Pharmacist Pharmacist 06/04/21 01/15/22 Cole George LISW Lead Small Piece Cutter 06/13/21 10/07/21 Fletcher Up Community Health Worker 06/13/21 09/12/21 Bautista Casey MD [address] [place] [address] Assigned Heart and Vascular Provider 07/21/21 01/16/23 Jasmyn Oliver CHW Community Health Worker 09/13/21 10/07/21 Yasmeen Pendleton [facility] [address] [place] [address] Assigned MTM Pharmacist 03/22/22 01/02/23 documented as of this encounter
--- OUTSIDE RECORDS SUMMARY | 2024-12-16 22:24 | XMS_ITS | Encounter Summary ---
Author Organization [place] Address [address] [facility] [place] [address] Care Team Providers Care Line Welder Name Role Phone Angella Mendieta MD Primary Care Provider Julito Banuelos MD Primary Care Provider [phone] Julito Banuelos MD Unavailable Julito Banuelos MD Unavailable Aleshia Henriquez RD Unavailable Unavailable Mary Kay Jones [facility] Unavailable Unavailable Susannah Blankenship [facility] Unavailable [phone] Carolyn Huynh [facility] Unavailable [phone] Vika Kevin APRN CHLORINE CELL TENDER Unavailable + Marilyn Willard MD Unavailable [phone] Carie Varela DO Unavailable [phone] Maylin May NP Unavailable [phone] Marisa Rodrigues RN Unavailable Unavailable Vilma Long MD Unavailable + [phone] Yasmeen Pendleton [facility] Unavailable Cole George Unavailable Fletcher Russell Unavailable Unavailable Bautista Casey MD Unavailable [phone] Jasmyn Oliver CHW Unavailable [phone] Vika Kevin APRN [facility] Primary Care Prov ider Vika Kevin APRN [facility] Primary Care Prov ider + Yasmeen Pendleton [facility] Unavailable Vika Kevin APRN [facility] Primary Care Prov ider + Encounter Details Date Type Department Care Team (Late st Contact Info) Description 08/16/2015 MyC Medical Advice [facility] [place] [address] [facility] [address] [place] [address] Jaimee Donald MD HEART [facility] [address] [facility] [address] [place], [place] [id number] Social History Tobacco Use Types Packs/Day Years Used Date Smoking Tobacco: Former Cigarettes 0.3 15 0 10/26/1961 - 10/26/1976 Smokeless Tobacco: Never Alcohol Use Standard Drinks/Week Comments Yes 0 (1 standard drink = 0.6 oz pur e alcohol) 1-2 glasses of wine weekly Comments No Sex and Gender Information Value Date Recorded Sex Assigned at Not on file Legal 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 DATA REPORT ANALYST Gender Identity Not on file Sexual [...] Out COVID-19 12/04/2020 12/04/2020 12/05/2020 6:04 PM DATA REPORT ANALYST documented as of this encounter Care Teams Line Welder Relationship Specialty [place] [address] [place] [address] 528292 PCP - General Family Practice 07/18/15 09/11/15 Julito Banuelos MD [address] [place] [address] PCP - General Family Practice 09/12/15 09/23/21 Julito Banuelos MD [address] [place] [address] PCP - Assigned PCP 02/17/16 12/28/18 Vika Kevin APRN CHLORINE CELL TENDER [address] [place] [address] PCP - General Nurse Practitioner - Family 09/24/21 03/05/22 Vika Kevin APRN CHLORINE CELL TENDER [address] [place] [address] PCP - General Nurse Practitioner - Family 03/18/22 06/18/22 Vika Kevin APRN CHLORINE CELL TENDER [address] [place] [address] PCP - General Nurse Practitioner - Family 07/24/22 Julito Banuelos MD [address] [place] [address] Assigned PCP 02/17/16 07/21/[address] [place] [address] Role Player Dietitian, Registered 04/14/19 Mary Kay Jones, [facility] Pharmacist 08/01/19 04/20/20 Susannah Blankenship, [facility] [address] [facility] [address]12 [place] [address] Pharmacist Pharmacist 08/08/19 04/15/21 Carolyn Huynh [facility] [address] [place] [address] Pharmacist Pharmacist 06/25/20 04/15/21 Vika Kevin APRN CHLORINE CELL TENDER [address] [place] [address] 052862 Assigned PCP 07/22/20 11/16/24 Marilyn Willard MD [address] [facility] [address] [place], [place] [address] Assigned Surgical Provider 08/17/20 08/16/24 Carie Varela DO [address] [place] [address] Assigned Heart and Vascular Provider 08/17/20 01/19/21 Maylin May NP [address] [facility] [place] [place] [address] Assigned Pediatric Specialist Provider 12/16/20 06/13/22 Marisa Rodrigues, RN Clinic Stock Grader 01/15/21 02/26/21 Vilma Long MD [address] [place] [address] Assigned Heart and Vascular Provider 01/20/21 07/20/21 Yasmeen Pendleton [facility] [address] [place], [place] [address] Pharmacist Pharmacist 06/04/21 01/15/22 Cole George LISW Lead Stock Grader 06/13/21 10/07/21 Fletcher Up Community Health Worker 06/13/21 09/12/21 Bautista Casey MD [address] [place], [place] 6[address] Assigned Heart and Vascular Provider 07/21/21 01/16/23 Jasmyn Oliver CHW Community Health Worker 09/13/21 10/07/21 Yasmeen Pendleton [facility] [address] [place] [address] Assigned MTM Pharmacist 03/22/22 01/02/23 documented as of this encounter
--- OUTSIDE RECORDS SUMMARY | 2024-12-16 22:24 | XMS_ITS | Encounter Summary ---
Author Organization [place] Address [address] [facility] [place] [address] Care Team Providers Care Instant Powder Supervisor Name Role Phone Andrew Lu MD Primary Care Provider [phone] Niko Resendiz MD Primary Care Provider Carlie Mac MD Primary Care Provide r Angella Mendieta MD Primary Care Provider Julito Banuelos MD Primary Care Provider [phone] Julito Banuelos MD Unavailable Julito Banuelos MD Unavailable Aleshia Henriquez RD Unavailable Unavailable Mary Kay Jones [facility] Unavailable Unavailable Susannah Blankenship [facility] Unavailable [phone] Carolyn Huynh [facility] Unavailable [phone] Vika Kevin APRN GRAIN MIXER Unavailable + Marilyn Willard MD Unavailable [phone] Carie Varela DO Unavailable [phone] Maylin May NP Unavailable [phone] Marisa Rodrigues RN Unavailable Unavailable Vilma Long MD Unavailable + [phone] Yasmeen Pendleton [facility] Unavailable [phone] Cole George Unavailable Fletcher Russell Unavailable Unavailable Bautista Casey MD Unavailable [phone] DemetriusJasmyn wright [facility] Unavailable [phone] Vika Kevin APRN [facility] Primary Care Prov ider Vika Kevin APRN [facility] Primary Care Prov ider Yasmeen Pendleton [facility] Unavailable Vika [facility] Primary Care Prov ider Reason for Visit * Reason Onset Date Comments Refill Request 01/06/2011 Encounter Details Date Type Department Care Team (Late st Contact Info) Description 01/06/[address] [address] Andrew Lu MD XXX RETIRED XXX [address] [place] [address] Refill Request Social History Tobacco Use Types Packs/Day Years Used Date Smoking Tobacco: Former Cigarettes 0.3 15 0 10/26/1961 - 10/26/1976 Alcohol Use Standard Drinks/Week Comments Yes 0 (1 standard drink = 0.6 oz pur e alcohol) 1 wine 2x qweek Comments No Sex and Gender Information Value Date Recorded Sex Assigned at Not on file Legal 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 RETAIL AND RESTAURANT Gender Identity Not on file Sexual Orientation Not on file documented as of this encounter Plan of Treatment Not on file documented as of this encounter Visit Diagnoses Diagnosis Candidiasis of vulva and vagina- Primary documented in this encounter Additional Health Concerns Infection Onset Date Last Indicated Resolved Time Rule Out COVID-19 07/25/2020 07/25/2020 07/26/2020 3:02 PM CDT Rule Out COVID-19 12/04/2020 12/04/2020 12/05/2020 6:04 PM RETAIL AND RESTAURANT documented as of this encounter Care Teams Instant Powder Supervisor Relationship Specialty Start Date End Date Andrew Lu MD XXX RETIRED XXX [address] [place] [phone] PCP - General 12/10/01 01/10/14 Niko Resendiz MD [address] [place] [address] PCP - General Internal Medicine 01/11/14 01/29/14 Carlie Mac MD [address] [place] [address] PCP - General Pediatrics 01/30/14 07/17/15 Angella Mendieta MD [address] [place] [address] PCP - General Family Practice 07/18/15 09/11/15 Julito Banuelos MD [address] [place] [address] PCP - General Family Practice 09/12/15 09/23/21 Julito Banuelos MD [address] [place] [address] PCP - Assigned PCP 02/17/16 12/28/18 Vika Kevin APRN GRAIN MIXER [address] [place] [address] PCP - General Nurse Practitioner - Family 09/24/21 03/05/22 Vika Kevin APRN GRAIN MIXER [address] [place] [address] PCP - General Nurse Practitioner - Family 03/18/22 06/18/22 Vika Kevin APRN GRAIN MIXER [address] [place] [address] PCP - General Nurse Practitioner - Family 07/24/22 Julito Banuelos MD [address] [place] [address] Assigned PCP 02/17/16 07/21/[address] [place] [address] Principal Technical Specialist Dietitian, Registered 04/14/19 Mary Kay Jones, [facility] Pharmacist 08/01/19 04/20/20 Susannah Blankenship, [facility] [address] [facility] 812 [place] [address] Pharmacist Pharmacist 08/08/19 04/15/21 Carolyn Huynh, [facility] [address] [place], [place] [address] Pharmacist Pharmacist 06/25/20 04/15/21 Vika Kevin, JAIME GRAIN MIXER [address] [place] [address] Assigned PCP 07/22/20 11/16/24 Marilyn Willard MD [address] [facility] [address] [place], [place] [address] Assigned Surgical Provider 08/17/20 08/16/24 Carie Varela DO [address] [place] [address] Assigned Heart and Vascular Provider 08/17/20 01/19/21 Maylin May NP [address] [place] [address] Assigned Pediatric Specialist Provider 12/16/20 06/13/22 Marisa Rodrigues, RN Clinic Laboratory Phlebotomist 01/15/21 02/26/21 Vilma Long MD [address] [place] [address] Assigned Heart and Vascular Provider 01/20/21 07/20/21 [facility] [address] [place] [address] Pharmacist Pharmacist 06/04/21 01/15/22 Cole George LISW Lead Laboratory Phlebotomist 06/13/21 10/07/21 Fletcher Up Community Health Worker 06/13/21 09/12/21 Bautista Casey MD [address] [place] [address] Assigned Heart and Vascular Provider 07/21/21 01/16/23 Jasmyn Oliver CHW Community Health Worker 09/13/21 10/07/21 [facility] [address] [place] [address] Assigned MTM Pharmacist 03/22/22 01/02/23 documented as of this encounter
--- OUTSIDE RECORDS SUMMARY | 2024-12-16 22:24 | XMS_ITS | Encounter Summary ---
Author Organization [place] Address [address] [facility] [place] [address] Care Team Providers Care Solutions Sales Executive Name Role Phone Andrew Lu MD Primary Care Provider [phone] Niko Resendiz MD Primary Care Provider Carlie aMc MD Primary Care Provide r Angella Mendieta MD Primary Care Provider Julito Banuelos MD Primary Care Provider [phone] Julito Banuelos MD Unavailable Julito Banuelos MD Unavailable Aleshia Henriquez RD Unavailable Unavailable Mary Kay Jones [facility] Unavailable Unavailable Susannah Blankenship [facility] Unavailable [phone] Carolyn Huynh [facility] Unavailable [phone] Vika Kevin APRN DRAW HAND Unavailable + Marilyn Willard MD Unavailable [phone] Carie Varela DO Unavailable [phone] Maylin May NP Unavailable [phone] Marisa Rodrigues RN Unavailable Unavailable Vilma Long MD Unavailable + [phone] Yasmeen Pendleton [facility] Unavailable [phone] Cole George Unavailable Fletcher Russell Unavailable Unavailable Bautista Casey MD Unavailable AnnyJasmyn tracey [facility] Unavailable [phone] Vika Kevin APRN [facility] Primary Care Prov ider Vika Kevin APRN [facility] Primary Care Prov ider Yasmeen Pendleton [facility] Unavailable [phone] Vika [facility] Primary Care Prov ider Encounter Details Date Type Department Care Team (Late st Contact Info) Description 06/08/2007 MyC Medical Advice [address] [phone] Andrew Lu MD XXX RETIRED XXX [address] [place] [phone] Social History Tobacco Use Types Packs/Day Years Used Date Smoking Tobacco: Former Cigarettes 0.3 15 0 10/26/1961 - 10/26/1976 Alcohol Use Standard Drinks/Week Comments Yes 0 (1 standard drink = 0.6 oz pur e alcohol) 1 wine 2x qweek Comments No Sex and Gender Information Value Date Recorded Sex Assigned at Not on file Legal 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 JOURNEYMAN GLAZIER Gender Identity Not on file Sexual Orientation Not on file documented as of this encounter Plan of Treatment Not on file documented as of this encounter Visit Diagnoses Not on filedocumented in this encounter Additional Health Concerns Infection Onset Date Last Indicated Resolved Time Rule Out COVID-19 07/25/2020 07/25/2020 07/26/2020 3:02 PM CDT Rule Out COVID-19 12/04/2020 12/04/2020 12/05/2020 6:04 PM JOURNEYMAN GLAZIER documented as of this encounter Care Teams Solutions Sales Executive Relationship Specialty Start Date End Date Andrew Lu MD XXX RETIRED XXX [address] [place] [phone] PCP - General 12/10/01 01/10/14 Niko Resendiz MD [address] [place] [address] PCP - General Internal Medicine 01/11/14 01/29/14 Carlie Mac MD [address] [place], [place] [phone] PCP - General Pediatrics 01/30/14 07/17/15 Angella Mendieta MD [address] [place] [address] [id number] PCP - General Family Practice 07/18/15 09/11/15 Julito Banuelos MD [address] [place] [address] 712002 PCP - General Family Practice 09/12/15 09/23/21 Julito Banuelos MD [address] [place] [address] PCP - Assigned PCP 02/17/16 12/28/18 Vika Kevin APRN DRAW HAND [address] [place] [address] 313782 PCP - General Nurse Practitioner - Family 09/24/21 03/05/22 Vika Kevin APRN DRAW HAND [address] [place] [address] 224002 PCP - General Nurse Practitioner - Family 03/18/22 06/18/22 Vika Kevin APRN DRAW HAND [address] [place] [address] [phone] PCP - General Nurse Practitioner - Family 07/24/22 Julito Banuelos MD [address] [place] [address] 437152 Assigned PCP 02/17/16 07/21/[address] [place] [address] Gold Miner Blasting Dietitian, Registered 04/14/19 Mary Kay Jones, [facility] Pharmacist 08/01/19 04/20/20 [facility] [address] [place] [address] 8[address] [place], [place] [address] Pharmacist Pharmacist 08/08/19 04/15/21 [facility] [address] [place] [address] Pharmacist Pharmacist 06/25/20 04/15/21 Vika Kevin APRN DRAW HAND [address] [place] [address] 235162 Assigned PCP 07/22/20 11/16/24 Marilyn Willard MD [address] [place] [address] [address] [place], [place] [address] Assigned Surgical Provider 08/17/20 08/16/24 Carie Varela DO [address] [place] [address] Assigned Heart and Vascular Provider 08/17/20 01/19/21 Maylin May NP [address] [place] [address] Assigned Pediatric Specialist Provider 12/16/20 06/13/22 Marisa Rodrigues, RN Clinic Learning And Development Manager 01/15/21 02/26/21 Vilma Long MD [address] [place] [address] Assigned Heart and Vascular Provider 01/20/21 07/20/21 Yasmeen Pendleton [facility] [address] [place] [address] Pharmacist Pharmacist 06/04/21 01/15/22 Cole George LISW Lead Learning And Development Manager 06/13/21 10/07/21 Fletcher Up Community Health Worker 06/13/21 09/12/21 Bautista Casey MD [address] [place] [address] Assigned Heart and Vascular Provider 07/21/21 01/16/23 Jasmyn Oliver CHW Community Health Worker 09/13/21 10/07/21 Yasmeen Pendleton [facility] [address] [place] [address] Assigned MTM Pharmacist 03/22/22 01/02/23 documented as of this encounter
--- OUTSIDE RECORDS SUMMARY | 2024-12-16 22:24 | XMS_ITS | Encounter Summary ---
Author Organization [place] Address [address] [facility] [place] [address] Care Team Providers Care Kick Boxer Name Role Phone Julito Banuelos MD Primary Care Provider [phone] Unavailable Unavailable Susannah Blankenship [facility] Unavailable [phone] Carolyn Huynh [facility] Unavailable [phone] Vika Kevin APRN [facility] Unavailable + Marilyn Willard MD Unavailable [phone] Maylin May NP Unavailable [phone] Vilma Long MD Unavailable + [phone] Yasmeen Pendleton [facility] Unavailable [phone] Cole George Unavailable Fletcher Russell Unavailable Unavailable Bautista Casey MD Unavailable [phone] Jasmyn Oliver Unavailable [phone] Vika Kevin APRN [facility] Primary Care Prov ider Vika Kevin APRN [facility] Primary Care Prov ider Yasmeen Pendleton [facility] Unavailable [phone] Vika Kevin APRN AUDITOR Primary Care Prov ider Encounter Details Date Type Department Care Team (Late st Contact Info) Description 03/18/2021 MyC Medical Advice [address] [place] [address] Susannah Blankenship, [facility] [address] [facility] [address] [place] [address] Social History Tobacco Use Types Packs/Day Years [...] on file Legal 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 SCADA OPERATOR Gender Identity Not on file Sexual [...] Depression Total Score: 10 020 9:30 AM SCADA OPERATOR documented as of this encounter Care Teams Kick Boxer Relationship Specialty Start Date End Date Julito Banuelos MD [address] [place] [address] [phone] PCP - General Family Practice 09/12/15 09/23/21 Vika Kevin APRN AUDITOR [address] [place] [address] [phone] PCP - General Nurse Practitioner - Family 09/24/21 03/05/22 Vika Kevin APRN AUDITOR [address] [place] [address] 16989 PCP - General Nurse Practitioner - Family 03/18/22 06/18/22 Vika Kevin APRN AUDITOR [address] [place] [address] 55567 PCP - General Nurse Practitioner - Family 07/24/[address] [place] [address] 77675 Deportation Examiner Dietitian, Registered 04/14/19 Susannah Blankenship, [facility] 420 [facility] [address] [place] [address] Pharmacist Pharmacist 08/08/19 04/15/21 [facility] [address] [place] [address] Pharmacist Pharmacist 06/25/20 04/15/21 Vika Kevin APRN AUDITOR [address] [place] [address] 78169 Assigned PCP 07/22/20 11/16/24 Marilyn Willard MD [address] [facility] [address] [place], [place] 186385 Assigned Surgical Provider 08/17/20 08/16/24 Maylin May NP [address] [place] [address] Assigned Pediatric Specialist Provider 12/16/20 06/13/22 Vilma Long MD [address] [place] [address] Assigned Heart and Vascular Provider 01/20/21 07/20/21 [facility] [address] [place] [address] 752135 Pharmacist Pharmacist 06/04/21 01/15/22 Cole George LISW Lead Deputy Brand Inspector 06/13/21 10/07/21 Fletcher Up Community Health Worker 06/13/21 09/12/21 Bautista Casey MD [address] [place] [address] Assigned Heart and Vascular Provider 07/21/21 01/16/23 Jasmyn Oliver [facility] Community Health Worker 09/13/21 10/07/21 Yasmeen Pendleton, [facility] [address] [place] [address] Assigned MTM Pharmacist 03/22/22 01/02/23 documented as of this encounter
--- OUTSIDE RECORDS SUMMARY | 2024-12-16 22:24 | XMS_ITS | Encounter Summary ---
Author Organization [place] Address [address] [facility] [place] [address] Care Team Providers Care Food Service Driver Name Role Phone Julito Banuelos MD Primary Care Provider [phone] Unavailable Unavailable Vika Kevin APRN [employer] [facility] Unavailable + Marilyn Willard MD Unavailable [phone] Maylin May NP Unavailable [phone] Vilma Long MD Unavailable + [phone] Yasmeen Pendleton [facility] Unavailable + [phone] Cole George Unavailable Fletcher Russell Unavailable Unavailable Bautista Casey MD Unavailable [phone] Jasmyn Oliver Bryanna Unavailable [phone] Vika Kevin APRN [facility] Primary Care Prov ider Vika Kevin APRN [facility] Primary Care Prov ider Yasmeen Pendleton [facility] Unavailable [phone] Vika Kevin APRN [employer] Primary Care Prov ider Reason for Visit * Reason Onset Date Comments Forms 06/26/2021 forms for LTC In [facility] Encounter Details Date Type Department Care Team (Late st Contact Info) Description 06/26/[address] [phone] [place] [address] [place] [phone] Forms (forms for LTC Insurance) Social History Tobacco Use Types Packs/Day Years [...] and Family Not on file 06/14/2021 Attends [employer] Not on file 06/14 Active Member [...] Never 06/14/2021 PHQ-2 Answer Date Recorded PHQ-2 Total Score (Adult) - Positive if 3 or more points; Administer PHQ-9 if positive 1 04/29/2021 Housing Stability Vital Sign Answer [place] [...] place to sleep or slept in a correction (including now)? 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 CHILD STUDY TEAM DIRECTOR Gender Identity Not on file Sexual [...] have Coronavirus / COVID-19? No / Unsure 06/19/2021 3:29 PM CDT documented as of this encounter Miscellaneous Notes * Telephone Encounter - Panda Bradshaw RN - 06/26/2021 4:39 PM CDT Duplicate form, will call insurance to verify received, will send copy to [employer] for file. Panda Hollingsworth RN [facility] Triage * Telephone Encounter - Vika Kevin APRN CNP - 06/26/2021 3:48 PM CDT Images from the original note were not included. Duplicate form? Just filled out same one last week. RV triage to call and verify if needed. SHELTON [place]- * Telephone Encounter - Maylin Diaz - 06/26/2021 1:00 PM CDT Reason for Call: Form, our goal is to have forms completed with 72 hours, however, some forms may require a visit or additional information. Type of letter, form or note: medical Who is the form from?: Insurance comp Where did the form come from: form was faxed in What clinic location was the form placed at?: [facility] Where the form was placed: Vika Kevin Box/Folder What number is listed as a contact on the form?: [phone] Additional comments: Fax to [phone] Call taken on 06/26/2021 at 1:01 PM by Maylin Diza documented in this encounter Plan of Treatment Not on file documented as of this encounter Visit Diagnoses Not on filedocumented in this encounter Additional Health Concerns Assessment Noted Time PHQ-9 Depression Total Score: 10 021 3:56 PM CDT documented as of this encounter Care Teams Food Service Driver Relationship Specialty Start Date End Date Julito Banuelos MD [address] [place] [address] [phone] PCP - General Family Practice 09/12/15 09/23/21 Vika Kevin APRN ENTERTAINMENT MUSICIAN [address] [place] [address] 27861 PCP - General Nurse Practitioner - Family 09/24/21 03/05/22 Vika Kevin APRN ENTERTAINMENT MUSICIAN [address] [place] [address] 47959 PCP - General Nurse Practitioner - Family 03/18/22 06/18/22 Vika Kevin APRN ENTERTAINMENT MUSICIAN [address] [place] [address] 34117 PCP - General Nurse Practitioner - Family 07/24/[address] [place] [address] 71991 Cloth Washer Back Tender Dietitian, Registered 04/14/19 Vika Kevin APRN ENTERTAINMENT MUSICIAN [address] [place] [address] 14076 Assigned PCP 07/22/20 11/16/24 Marilyn Willard MD [address] [place] [address] [address] [place] [address] Assigned Surgical Provider 08/17/20 08/16/24 Maylin May NP [address] [place] [address] Assigned Pediatric Specialist Provider 12/16/20 06/13/22 Vilma Long MD [address] [place] [address] Assigned Heart and Vascular Provider 01/20/21 07/20/21 [facility] [address] [place] [address] Pharmacist Pharmacist 06/04/21 01/15/22 Cole George LISW Lead Scrap Collector 06/13/21 10/07/21 Fletcher Up Community Health Worker 06/13/21 09/12/21 Bautista Casey MD [address] [place] [address] Assigned Heart and Vascular Provider 07/21/21 01/16/23 Jasmyn Oliver CHW Community Health Worker 09/13/21 10/07/21 [facility] [address] [place] [address] Assigned MTM Pharmacist 03/22/22 01/02/23 documented as of this encounter
--- OUTSIDE RECORDS SUMMARY | 2024-12-16 22:24 | XMS_ITS | Encounter Summary ---
Author Organization [place] Address [address] [facility] [place] [address] Care Team Providers Care Buncher Machine Name Role Phone Carlie Mac MD Primary Care Provide r Angella Mendieta MD Primary Care Provider Julito Banuelos MD Primary Care Provider Julito Banuelos MD Unavailable Julito Banuelos MD Unavailable Aleshia Henriquez RD Unavailable Unavailable Mary Kay Jones [facility] Unavailable Unavailable Susannah Blankenship [facility] Unavailable Carolyn Huynh [facility] Unavailable Vika Kevin APRN LEAD PL SQL DEVELOPER Unavailable + Marilyn Willard MD Unavailable Carie Varela DO Unavailable Maylin May NP Unavailable [phone] Marisa Hernandez RN Unavailable Unavailable Vilma Long MD Unavailable Yasmeen Pendleton [facility] Unavailable Cole George Unavailable Fletcher Russell Unavailable Unavailable IpBautista MD Unavailable Jasmyn Oliver [facility] Unavailable [phone] Vika Kevin APRN [facility] Primary Care Prov ider Vika Kevin APRN [facility] Primary Care Prov ider Yasmeen Pendleton [facility] Unavailable [phone] Vika Kevin APRN [facility] Primary Care Prov ider Reason for Visit * Reason Onset Date Comments Other 09/30/2014 [facility] Encounter Details Date Type Department Care Team (Late st Contact Info) Description 09/30/2014 MyC Medical Advice [address] [address] Carlie Mac MD [address] [place] [address] [facility] Social History Tobacco Use Types Packs/Day Years Used Date Smoking Tobacco: Former Cigarettes 0.3 15 0 10/26/1961 - 10/26/1976 Smokeless Tobacco: Never Alcohol Use Standard Drinks/Week Comments Yes 0 (1 standard drink = 0.6 oz pur e alcohol) 1-2 glasses of wine weekly Comments No Sex and Gender Information Value Date Recorded Sex Assigned at Not on file Legal 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 OUTDOOR RECREATION SPECIALIST Gender Identity Not on file Sexual [...] Out COVID-19 12/04/2020 12/04/2020 12/05/2020 6:04 PM OUTDOOR RECREATION SPECIALIST documented as of this encounter Care Teams Buncher Machine Relationship Specialty Start Date End Date Carlie Mac MD [address] [place], [place] [phone] PCP - General Pediatrics 01/30/14 07/17/15 Angella Mendieta MD [address] [place] [address]807 PCP - General Family Practice 07/18/15 09/11/15 Julito Banuelos MD [address] [place] [address] [phone] PCP - General Family Practice 09/12/15 09/23/21 Julito Banuelos MD [address] [place] [address] [phone] PCP - Assigned PCP 02/17/16 12/28/[address] Kevin [address]N LEAD [address] SQL DEVELOPER [address] [place] [address] 59475 PCP - General Nurse Practitioner - Family 09/24/21 03/05/22 Vika Kevin APRN LEAD [address] SQL DEVELOPER [address] [place] [address] 09260 PCP - General Nurse Practitioner - Family 03/18/22 06/18/22 Vika Kevin APRN LEAD [address] SQL DEVELOPER [address] [place] [address] 61836 PCP - General Nurse Practitioner - Family 07/24/22 Julito Banuelos MD [address] [place] [address] [phone] Assigned PCP 02/17/16 07/21/[place] [address] [place] [address] Frit Burner Dietitian, Registered 04/14/19 Mary Kay Jones, [facility] Pharmacist 08/01/19 04/20/20 Susannah Blankenship, [facility] 420 [facility] [address] [place], [place] [address] Pharmacist Pharmacist 08/08/19 04/15/21 Carolyn Huynh [facility] [address] [place], [place] [address] Pharmacist Pharmacist 06/25/20 04/15/[address] Vika Kevin APRN LEAD [address] SQL DEVELOPER [address] [place] [address] [phone] Assigned PCP 07/22/20 11/16/24 Marilyn Willard MD [address] [place] [address] 394 [place], [place] 476965 Assigned Surgical Provider 08/17/20 08/16/24 Carie Varela DO [address] [place], [place] 342295 Assigned Heart and Vascular Provider 08/17/20 01/19/21 Maylin May NP [address], [place] [id number] Assigned Pediatric Specialist Provider 12/16/20 06/13/22 Marisa Rodrigues, RN Clinic Assembly Associate 01/15/21 02/26/21 Vilma Long MD [address] [place] [address] Assigned Heart and Vascular Provider 01/20/21 07/20/21 Yasmeen Pendleton, [facility] [address] [place], [place] 43[address]75 Pharmacist Pharmacist 06/04/21 01/15/22 Cole George LISW Lead Assembly Associate 06/13/21 10/07/21 Fletcher Up Community Health Worker 06/13/21 09/12/21 Bautista Casey MD [address] [place] [address] Assigned Heart and Vascular Provider 07/21/21 01/16/23 Jasmyn Oliver [facility] Community Health Worker 09/13/21 10/07/21 Yasmeen Pendleton [facility] [address] [place] [address] Assigned MTM Pharmacist 03/22/22 01/02/23 documented as of this encounter
--- OUTSIDE RECORDS SUMMARY | 2024-12-16 22:24 | XMS_ITS | Encounter Summary ---
Author Organization [place] Address [address] [place] [address] Care Team Providers Care Director Of Technology Name Role Phone Julito Banuelos MD Primary Care Provider [phone] Julito Banuelos MD Unavailable Aleshia Henriquez RD Unavailable Unavailable Mary Kay Jones [facility] Unavailable Unavailable Susannah Blankenship [facility] Unavailable Carolyn Huynh [facility] Unavailable [phone] Vika Kevin APRN DIANETIC COUNSELOR Unavailable + Marilyn Willard MD Unavailable Carie Varela DO Unavailable [phone] Maylin May NP Unavailable [phone] Marisa Hernandez RN Unavailable Unavailable Vilma Long MD Unavailable Yasmeen Pendleton [facility] Unavailable Cole George Unavailable Fletcher Russell Unavailable Unavailable Bautista Casey MD Unavailable Jasmyn Oliver [facility] Unavailable [phone] Vika Kevin APRN DIANETIC COUNSELOR Primary Care Prov ider Vika Kevin APRN [facility] Primary Care Prov ider Yasmeen Pendleton [facility] Unavailable [phone] Vika Kevin APRN [facility] Primary Care Prov ider Encounter Details Date Type Department Care Team (Late st Contact Info) Description 03/28/2020 MyC Medical Advice [facility] [address] [address] Panda Sibley MD [address] [place], [place] [id number] Social History Tobacco Use Types Packs/Day Years [...] on file Legal 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 PRINTER'S ASSISTANT Gender Identity Not on file Sexual Orientation Not on file Occupation Industry Job Start Date Job End Date Not on file Not on file Not on file Not on file COVID-19 Exposure Response Date Recorded In the last month, have you been in contact with someone who was confirmed or suspected to have Coronavirus / COVID-19? No / Unsure 03/28/2020 1:47 PM CDT documented as of this encounter Plan of Treatment Not on file documented as of this encounter Visit Diagnoses Not on filedocumented in this encounter Additional Health Concerns Infection Onset Date Last Indicated Resolved Time Rule Out COVID-19 07/25/2020 07/25/2020 07/26/2020 3:02 PM CDT Rule Out COVID-19 12/04/2020 12/04/2020 12/05/2020 6:04 PM PRINTER'S ASSISTANT Assessment Noted Time PHQ-9 Depression Total Score: 8 07/18/20 19 12:06 PM CDT documented as of this encounter Care Teams Director Of Technology Relationship Specialty Start Date End Date Julito Banuelos MD [address] [place] [address]156 PCP - General Family Practice 09/12/15 09/23/21 Vika Kevin APRN DIANETIC COUNSELOR [address] [place] [address] 46358 PCP - General Nurse Practitioner - Family 09/24/21 03/05/22 Vika Kevin APRN DIANETIC COUNSELOR [address] [place] [address] [phone] PCP - General Nurse Practitioner - Family 03/18/22 06/18/22 Vika Kevin APRN DIANETIC COUNSELOR [address] [place] [address] [phone] PCP - General Nurse Practitioner - Family 07/24/22 Julito Banuelos MD [address] [place] [address] 280312 Assigned PCP 02/17/16 07/21/[address] [place] [address] Gate Operator Dietitian, Registered 04/14/19 Mary Kay Jones [facility] Pharmacist 08/01/19 04/20/20 Susannah Blankenship [facility] [address] [place] [address] 8[address] [place], [place] [address] Pharmacist Pharmacist 08/08/19 04/15/21 Carolyn Huynh [facility] [address] [place], [place] [address] Pharmacist Pharmacist 06/25/20 04/15/21 Vika Kevin APRN DIANETIC COUNSELOR [address] [place], [place] 10[address]22 Assigned PCP 07/22/20 11/16/24 Marilyn Willard MD 420 [facility] [address] [place], [place] [address] Assigned Surgical Provider 08/17/20 08/16/24 Carie Varela DO [address] [place] [address] Assigned Heart and Vascular Provider 08/17/20 01/19/21 Maylin May NP [address] [place], [place] [phone] Assigned Pediatric Specialist Provider 12/16/20 06/13/22 Marisa Rodrigues, RN Clinic 4Th Grade Math Teacher 01/15/21 02/26/21 Vilma Long MD [address] [place] [address] Assigned Heart and Vascular Provider 01/20/21 07/20/21 Yasmeen Pendleton [facility] [address] [place] [address] Pharmacist Pharmacist 06/04/21 01/15/22 Cole George LISW Lead 4Th Grade Math Teacher 06/13/21 10/07/21 Fletcher Up Community Health Worker 06/13/21 09/12/21 Bautista Casey MD [address] [place] [address] Assigned Heart and Vascular Provider 07/21/21 01/16/23 Jasmyn Oliver CHW Community Health Worker 09/13/21 10/07/21 Yasmeen Pendleton [facility] [address] [place] [address] Assigned MTM Pharmacist 03/22/22 01/02/23 documented as of this encounter
--- OUTSIDE RECORDS SUMMARY | 2024-12-16 22:24 | XMS_ITS | Encounter Summary ---
Author Organization [place] Address [address] [place] [address] Care Team Providers Care Hazardous Materials Driver Name Role Phone Julito Banuelos MD Primary Care Provider [phone] Julito Banuelos MD Unavailable Julito Banuelos MD Unavailable Aleshia Henriquez RD Unavailable Unavailable Mary Kay Jones [facility] Unavailable Unavailable Susannah Blankenship [facility] Unavailable [phone] Carolyn Huynh [facility] Unavailable [phone] Vika Kevin APRN VEHICLE REFINISHER Unavailable + Marilyn Willard MD Unavailable [phone] Carie Varela DO Unavailable [phone] Maylin May NP Unavailable [phone] Marisa Rodrigues RN Unavailable Unavailable Vilma Long MD Unavailable Yasmeen Pendleton [facility] Unavailable Cole George Unavailable Fletcher Russell Unavailable Unavailable Bautista Casey MD Unavailable Jasmyn Oliver Unavailable [phone] Vika Kevin APRN [facility] Primary Care Prov ider Kevin Vika Delgado [facility] Primary Care Prov ider Yasmeen Pendleton [facility] Unavailable + [phone] Herberth Vika Delgado JAIME [facility] Primary Care Prov ider Reason for Visit * Reason Onset Date Comments MyChart Communication 11/01/2018 Encounter Details Date Type Department Care Team (Late st Contact Info) Description 11/01/2018 MyC Medical Advice [address] [phone] [place] [address] [place] [address] MyChart Communication Social History Tobacco Use Types Packs/Day Years Used Date Smoking Tobacco: Former Cigarettes 0.3 15 0 10/26/1961 - 10/26/1976 Smokeless Tobacco: Never Alcohol Use Standard Drinks/Week Comments Yes 6 (1 standard drink = 0.6 oz pur e alcohol) couple days a week PHQ-2 Answer Date Recorded PHQ-2 Score 0 11/04/2018 Comments No Sex and Gender Information Value Date Recorded Sex Assigned at Not on file Legal 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 PRESIDENT AND CHIEF EXECUTIVE OFFICER Gender Identity Not on file Sexual Orientation Not on file Occupation Industry Job Start Date Job End Date Not on file Not on file Not on file Not on file documented as of this encounter Miscellaneous Notes * Telephone Encounter - Araseli Briceño RN - 11/16/2018 8:56 AM CST Urine is in process. YUE Mcdowell, RN, PHN [facility] Triage ) [phone] IDENT AND CHIEF EXECUTIVE OFFICER * Telephone Encounter - Leann Massey - 11/16/2018 8:28 AM CST The patient called and said her Ty is bringing in her urine. She wanted it noted that she is on an antibiotic right now. Leann Massey Patient Clinical Trials Systems Administrator IDENT AND CHIEF EXECUTIVE OFFICER * Telephone Encounter - Araseli Briceño RN - 11/02/2018 2:37 PM CST Mychart note sent to patient. YUE Mcdowell, RN, PHN [facility]) [phone] IDENT AND CHIEF EXECUTIVE OFFICER * Telephone Encounter - Julito Banuelos MD - 11/02/2018 2:17 PM CST Please review with patient Can certainly try prevagen, have not seen neurologist recommend to date? IDENT AND CHIEF EXECUTIVE OFFICER * Telephone Encounter - Araseli Briceño RN - 11/02/2018 7:55 AM CST Forwarded to TS. Please review patient's Budgehart message and advise. Araseli Briceño RN, BS, PHN IDENT AND CHIEF EXECUTIVE OFFICER documented in this encounter Plan of Treatment Not on file documented as of this encounter Visit Diagnoses Not on filedocumented in this encounter Additional Health Concerns Infection Onset Date Last Indicated Resolved Time Rule Out COVID-19 07/25/2020 07/25/2020 07/26/2020 3:02 PM CDT Rule Out COVID-19 12/04/2020 12/04/2020 12/05/2020 6:04 PM PRESIDENT AND CHIEF EXECUTIVE OFFICER Assessment Noted Time PHQ-9 Depression Total Score: 4 04/27/20 18 7:12 AM CDT documented as of this encounter Care Teams Hazardous Materials Driver Relationship Specialty [place] [address] [place] [address] PCP - General Family Practice 09/12/15 09/23/21 Julito Banuelos MD [address] [place] [address] PCP - Assigned PCP 02/17/16 12/28/18 Vika Kevin APRN VEHICLE REFINISHER [address] [place] [address] PCP - General Nurse Practitioner - Family 09/24/21 03/05/22 Vika Kevin APRN VEHICLE REFINISHER [address] [place] [address] PCP - General Nurse Practitioner - Family 03/18/22 06/18/22 Vika Kevin APRN VEHICLE REFINISHER [address] [place] [address] [id number] PCP - General Nurse Practitioner - Family 07/24/22 Julito Banuelos MD [address] [place] [address] 235832 Assigned PCP 02/17/16 07/21/[address] [place] [address] Polymerization Oven Operator Dietitian, Registered 04/14/19 Mary Kay Jones [facility] Pharmacist 08/01/19 04/20/20 Susannah Blankenship [facility] [address] [place] [address] [address] [place] [address] Pharmacist Pharmacist 08/08/19 04/15/21 Carolyn Huynh [facility] [address] [place], [place] [address] Pharmacist Pharmacist 06/25/20 04/15/21 KevinVika, FORESTER AIDE VEHICLE REFINISHER [address] [place], [place] 8[address]32 Assigned PCP 07/22/20 11/16/24 Marilyn Willard MD [address] [facility] [address] [place], [place] [address] Assigned Surgical Provider 08/17/20 08/16/24 Carie Varela DO [address] [place] [address] Assigned Heart and Vascular Provider 08/17/20 01/19/21 Maylin May NP [address] [place], [place] [id number] Assigned Pediatric Specialist Provider 12/16/20 06/13/22 Marisa Rodrigues, RN Clinic Power Reactor Supervisor 01/15/21 02/26/21 Vilma Long MD [address] [place] [address] Assigned Heart and Vascular Provider 01/20/21 07/20/21 Yasmeen Pendleton [facility] [address] [place] [address] Pharmacist Pharmacist 06/04/21 01/15/22 Cole George LISW Lead Power Reactor Supervisor 06/13/21 10/07/21 Fletcher Up Community Health Worker 06/13/21 09/12/21 Bautista Casey MD [address] [place] [address] Assigned Heart and Vascular Provider 07/21/21 01/16/23 Jasmyn Oliver CHW Community Health Worker 09/13/21 10/07/21 Yasmeen Pendleton [facility] [address] [place] [address] Assigned MTM Pharmacist 03/22/22 01/02/23 documented as of this encounter
--- OUTSIDE RECORDS SUMMARY | 2024-12-16 22:24 | XMS_ITS | Encounter Summary ---
Author Organization [place] Address [address] [facility] [place] [address] Care Team Providers Care Scientific Research Associate Name Role Phone Julito Banuelos MD Primary Care Provider [phone] Julito Banuelos MD Unavailable Aleshia Henriquez RD Unavailable Unavailable Mary Kay Jones [facility] Unavailable Unavailable Susannah Blankenship [facility] Unavailable [phone] Carolyn Huynh [facility] Unavailable [phone] Vika Kevin APRN PATROL CAPTAIN Unavailable + Marilyn Willard MD Unavailable [phone] Carie Varela DO Unavailable [phone] Maylin May NP Unavailable [phone] Marisa Hernandez RN Unavailable Unavailable Vilma Long MD Unavailable Yasmeen Pendleton [facility] Unavailable Cole George Unavailable Fletcher Russell Unavailable Unavailable Bautista Casey MD Unavailable Jasmyn Oliver [facility] Unavailable [phone] Vika Kevin APRN PATROL CAPTAIN Primary Care Prov ider Vika Kevin APRN [facility] Primary Care Prov ider Yasmeen Pendleton [facility] Unavailable + [phone] Vika Kevin APRN [facility] Primary Care Prov ider Reason for Visit * Reason Comments Medication Refill Encounter Details Date Type Department Care Team (Late st Contact Info) Description 04/20/[address] [phone] [place] [address] [place] [address] [phone] Medication Refill Social History Tobacco Use Types [...] on file Legal 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 ADMINISTRATION CLERK Gender Identity Not on file Sexual Orientation Not on file Occupation Industry Job Start Date Job End Date Not on file Not on file Not on file Not on file COVID-19 Exposure Response Date Recorded In the last month, have you been in contact with someone who was confirmed or suspected to have Coronavirus / COVID-19? No / Unsure 04/13/2020 10:02 AM CDT documented as of this encounter Miscellaneous Notes * Telephone Encounter - Panda Bradshaw RN - 04/20/2020 5:19 PM CDT Refill available at pharmacy Panda Bradshaw RN [facility] Triage documented in this encounter Plan of Treatment Not on file documented as of this encounter Visit Diagnoses Diagnosis Hypothyroidism, unspecified type documented in this encounter Additional Health Concerns Infection Onset Date Last Indicated Resolved Time Rule Out COVID-19 07/25/2020 07/25/2020 07/26/2020 3:02 PM CDT Rule Out COVID-19 12/04/2020 12/04/2020 12/05/2020 6:04 PM ADMINISTRATION CLERK Assessment Noted Time PHQ-9 Depression Total Score: 8 07/18/20 19 12:06 PM CDT documented as of this encounter Care Teams Scientific Research Associate Relationship Specialty Start Date End Date Julito Banuelos MD [address] [place] [address] PCP - General Family Practice 09/12/15 09/23/21 Vika Kevin APRN PATROL CAPTAIN [address] [place] [address] PCP - General Nurse Practitioner - Family 09/24/21 03/05/22 Vika Kevin APRN PATROL CAPTAIN [address] [place] [address] PCP - General Nurse Practitioner - Family 03/18/22 06/18/22 Vika Kevin APRN PATROL CAPTAIN [address] [place] [address] PCP - General Nurse Practitioner - Family 07/24/22 Julito Banuelos MD [address] [place] [address] Assigned PCP 02/17/16 07/21/[address] [place] [address] Test Examiner Dietitian, Registered 04/14/19 Mary Kay Jones [facility] Pharmacist 08/01/19 04/20/20 Susannah Blankenship, [facility] [address] [facility] [address] [place], [place] [address] Pharmacist Pharmacist 08/08/19 04/15/21 Carolyn Huynh [facility] [address] [place] [address] Pharmacist Pharmacist 06/25/20 04/15/21 Vika Kevin, AMMONIA BOX TENDER PATROL CAPTAIN [address] [place] [address] 854252 Assigned PCP 07/22/20 11/16/24 Marilyn Willard MD [address] [facility] [address] [place], [place] [address] Assigned Surgical Provider 08/17/20 08/16/24 Carie Varela DO [address] [place] [address] Assigned Heart and Vascular Provider 08/17/20 01/19/21 Maylin May NP [address] [place], [place] [id number] Assigned Pediatric Specialist Provider 12/16/20 06/13/22 Marisa Rodrigues, RN Clinic Tire Trucker 01/15/21 02/26/21 Vilma Long MD [address] [place] [address] Assigned Heart and Vascular Provider 01/20/21 07/20/21 Yasmeen Pendleton [facility] [address] [place] [address] Pharmacist Pharmacist 06/04/21 01/15/22 Cole George LISW Lead Tire Trucker 06/13/21 10/07/21 Fletcher Up Community Health Worker 06/13/21 09/12/21 Bautista Casey MD [address] [place] [address] Assigned Heart and Vascular Provider 07/21/21 01/16/23 Jasmyn Oliver CHW Community Health Worker 09/13/21 10/07/21 Yasmeen Pendleton [facility] [address] [place] [address] Assigned MTM Pharmacist 03/22/22 01/02/23 documented as of this encounter
--- OUTSIDE RECORDS SUMMARY | 2024-12-16 22:24 | XMS_ITS | Encounter Summary ---
Author Organization [place] Address [address] [place] [address] Care Team Providers Care Front Load Trash Truck Driver Name Role Phone Andrew Lu MD Primary Care Provider [phone] Niko Resendiz MD Primary Care Provider Carlie Mac MD Primary Care Provide r Angella Mendieta MD Primary Care Provider Julito Banuelos MD Primary Care Provider [phone] Julito Banuelos MD Unavailable Julito Banuelos MD Unavailable Aleshia Henriquez RD Unavailable Unavailable Mary Kay Jones [facility] Unavailable Unavailable Susannah Blankenship [facility] Unavailable [phone] Carolyn Huynh [facility] Unavailable [phone] Vika Kevin APRN ASSISTANT OCEANOGRAPHER Unavailable + Marilyn Willard MD Unavailable [phone] Carie Varela DO Unavailable [phone] Maylin May NP Unavailable [phone] Marisa Rodrigues RN Unavailable Unavailable Vilma Long MD Unavailable + [phone] Yasmeen Pendleton [facility] Unavailable + [phone] Cole George Unavailable Fletcher Russell Unavailable Unavailable Bautista Casey MD Unavailable [phone] Dem[address]riusJasmyn wright [facility] Unavailable [phone] Vika Kevin APRN [facility] Primary Care Prov ider Vika Kevin APRN [facility] Primary Care Prov ider Yasmeen Pendleton [facility] Unavailable + [phone] Vika Kevin APRN [facility] Primary Care Prov ider Encounter Details Date Type Department Care Team (Late st Contact Info) Description 02/04/[address] [phone] Veronica [place] Social History Tobacco Use Types Packs/Day Years Used Date Smoking Tobacco: Former Cigarettes 0.3 15 0 10/26/1961 - 10/26/1976 Smokeless Tobacco: Never Alcohol Use Standard Drinks/Week Comments Yes 0 (1 standard drink = 0.6 oz pur e alcohol) 1-2 glasses of wine weekly Comments No Sex and Gender Information Value Date Recorded Sex Assigned at Not on file Legal 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 OIL BURNER SERVICER AND INSTALLER Gender Identity Not on file Sexual Orientation [...] Out COVID-19 12/04/2020 12/04/2020 12/05/2020 6:04 PM OIL BURNER SERVICER AND INSTALLER documented as of this encounter Care Teams Front Load Trash Truck Driver Relationship Specialty Start Date End Date Andrew Lu MD XXX RETIRED XXX [address] [place] [phone] PCP - General 12/10/01 01/10/14 Niko Resendiz MD [address] [place] [address] PCP - General Internal Medicine 01/11/14 01/29/14 Carlie Mac MD [address] [place] [address] PCP - General Pediatrics 01/30/14 07/17/15 Angella Mendieta MD [address] [place] [address] PCP - General Family Practice 07/18/15 09/11/15 Julito Banuelos MD [address] [place] [address] PCP - General Family Practice 09/12/15 09/23/21 Julito Banuelos MD [address] [place] [address] PCP - Assigned PCP 02/17/16 12/28/18 Vika Kevin APRN ASSISTANT OCEANOGRAPHER [address] [place] [address] PCP - General Nurse Practitioner - Family 09/24/21 03/05/22 Vika Kevin APRN ASSISTANT OCEANOGRAPHER [address] [place] [address] PCP - General Nurse Practitioner - Family 03/18/22 06/18/22 Vika Kevin APRN ASSISTANT OCEANOGRAPHER [address] [place] [address] 337312 PCP - General Nurse Practitioner - Family 07/24/22 Julito Banuelos MD [address] [place] [address] 748682 Assigned PCP 02/17/16 07/21/[address] [place] [address] [employer] Extension Specialist Dietitian, Registered 04/14/19 Mary Kay Jones, [facility] Pharmacist 08/01/19 04/20/20 [facility] [address] [place] [address] 8[address] [place], [place] [address] Pharmacist Pharmacist 08/08/19 04/15/21 [facility] [address] [place], [place] [address] Pharmacist Pharmacist 06/25/20 04/15/21 Vika Kevin APRN ASSISTANT OCEANOGRAPHER [address] [place] [address] [id number] Assigned PCP 07/22/20 11/16/24 Marilyn Willard MD [address] [place] [address] [address] [place] [address] Assigned Surgical Provider 08/17/20 08/16/24 Carie Varela DO [address] [place], [place] [address] Assigned Heart and Vascular Provider 08/17/20 01/19/21 Maylin May NP [address] [place], [place] [id number] Assigned Pediatric Specialist Provider 12/16/20 06/13/22 Marisa Rodrigues, RN Clinic Service Promoter Salesperson 01/15/21 02/26/21 Vilma Long MD [address] [place] [address] Assigned Heart and Vascular Provider 01/20/21 07/20/21 [facility] [address] [place] [address] Pharmacist Pharmacist 06/04/21 01/15/22 Cole George LISW Lead Service Promoter Salesperson 06/13/21 10/07/21 Fletcher Up Community Health Worker 06/13/21 09/12/21 Bautista Casey MD [address] [place] [address] Assigned Heart and Vascular Provider 07/21/21 01/16/23 Jasmyn Oliver CHW Community Health Worker 09/13/21 10/07/21 [facility] [address] [place] [address] [phone] Assigned MTM Pharmacist 03/22/22 01/02/23 documented as of this encounter
--- OUTSIDE RECORDS SUMMARY | 2024-12-16 22:25 | XMS_ITS | Encounter Summary ---
Author Organization [facility] Address [address] [facility] [place] [address] Care Team Providers Care Senior Bi Developer Name Role Phone Cortez Lu MD Primary Care Provider [phone] Niko Resendiz MD Primary Care Provider Carlie Mac MD Primary Care Provide r Angella Mendieta MD Primary Care Provider Julito Banuelos MD Primary Care Provider [phone] Julito Banuelos MD Unavailable Julito Banuelos MD Unavailable Aleshia Henriquez RD Unavailable Unavailable Mary Kay Jones [facility] Unavailable Unavailable Susannah Blankenship [facility] Unavailable [phone] Carolyn Huynh [facility] Unavailable [phone] Vika Kevin APRN INTERIOR ASSEMBLIES DEVELOPER [place] Unavailable + Marilyn Willard MD Unavailable [phone] Carie Varela DO Unavailable [phone] Maylin May NP Unavailable [phone] Marisa Rodrigues RN Unavailable Unavailable Vilma Long MD Unavailable + [phone] Yasmeen Pendleton [facility] Unavailable + [phone] Cole George Unavailable Fletcher Russell Unavailable Unavailable Bautista Casey MD Unavailable [phone] TatynaaJasmyn anand [facility] Unavailable [phone] Vika Kevin APRN [facility] Primary Care Prov ider Vika Kevin APRN [facility] Primary Care Prov ider Yasmeen Pendleton [facility] Unavailable + [phone] [facility]ika [facility] Primary Care Prov ider Encounter Details Date Type Department Care Team (Late st Contact Info) Description 12/01/2013 Office Visit-[facility] Heart [facility] [address] [facility] [address] [place] [phone] Cristy Hanna, JAIME [facility] XXX RESIGNED XXX [address] [facility] [address] [place] [id number] Social History Tobacco Use Types Packs/Day Years Used Date Smoking Tobacco: Former Cigarettes 0.3 15 0 10/26/1961 - 10/26/1976 Smokeless Tobacco: Never Alcohol Use Standard Drinks/Week Comments Yes 0 (1 standard drink = 0.6 oz pur e alcohol) 1-2 glasses of wine weekly Comments No Sex and Gender Information Value Date Recorded Sex Assigned at Not on file Legal 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 DATE: 12/01/2013 MARIALUISA COSBY DATE OF : 1940 AGE: [age] years old Referring Physician: CORTEZ LU Referring Clinic: [facility] CURRENT DIAGNOSES 1. Diabetes Updspbep-Noa-Pedrbbj Dependent, 250.00 2. - Hyperlipidemia mixed, 272.2 3. - Hypertension, 401.1 4. - CAD, 414.00 5. Palpitations, 785.1 ALLERGIES lisinopril Nitrofurantoin Nitrofurantoin Macrocrystal pramipexole Di-HCl Sulfasalazine tolterodine tartrate zolpidem tartrate MEDICATIONS (prior to changes made today) 1. Asmanex Twisthaler 220 mcg (120 doses) Aerosol Powdr Breath ActivInhl, Take as Directed 2. aspirin, buffered 81 mg tablet, 1 p.o. daily 3. Klor-Con 10 10 mEq tablet extended release, 2 p.o. PRN as Directed with Lasix 4. lamotrigine 100mg tablet, 1 p.o. daily 5. Lasix 20 mg tablet, 1 p.o. PRN as Directed 6. levocetirizine 5 mg tablet, 1 p.o. daily 7. losartan 25 mg tablet, 1 p.o. daily 8. metoprolol succinate 100 mg tablet extended release 24 hr, 1 p.o. daily 9. multivitamin tablet, 1 p.o. daily 10. Nasacort AQ 55 mcg Aerosol, [place], Take as Directed 11. Plavix 75 mg tablet, 1 p.o. daily 12. pravastatin 40 mg tablet, 1 p.o. daily 13. Seroquel 50 mg tablet, 4 p.o. daily 14. Singulair 10 mg tablet, 1 p.o. daily 15. Synthroid 50 mcg tablet, 1 p.o. daily 16. Xopenex HFA 45 mcg/actuation HFA Aerosol Inhaler, Take as Directed CHIEF COMPLAINTS follow up event monitor HISTORY OF PRESENT ILLNESS I had the pleasure of seeing Marialuisa Cosby in [facility]. She is a 73-year-old white female with a history of coronary artery disease, hypertension, diabetes, dyslipidemia, and asthma who is here today to reevaluate her palpitations. Her cardiovascular history includes hypertension, diabetes, and dyslipidemia. In December,, whilevisiting in [place] she had a mud-LS-tdlaxtgwq myocardial infarction and underwent an angiogram with PCI to the proximal and mid circumflex. LV function has been normal by echocardiogram. Apparently the hearing aid fitter in [place] recommended lifelong Plavix. She was seen by Dr. Davis in late August and at that point she was doing well and on appropriatemedical therapy. I saw her at the end of October for evaluation of palpitations. She noted two episodes of sudden palpitations waking her from sleep. They were not accompanied by any chest discomfort or shortness of breath. She does not check her glucose since she was told her hemoglobin A1C is under good control. She felt her heart rate was 100-120 beats per minute and therefore she took an extra dose of her metoprolol succinate 100 mg. After an hour her symptoms resolved. At that point she was having no symptoms during the day and was fairly physically active. EKG showed normal sinus rhythm at 60 beats per minute with first-degree AV block. I ordered an event monitor and thus far her transmissions include normal sinus rhythm with first-degree AV block and a bundle branch block. She has an occasional PAC which the patient did not report. Today she reports no further palpitations but she does have intermittent chest heaviness rated 1 wilfredo 10 point scale. This is fleeting in nature and not related to any activities. She denies any shortness of breath or dizziness. Her main complaint today is that she feels spacey. She finds it very difficult to explain this further. She said this is not like her normal hypoglycemic episodes, although she freely admits she does not check her serum glucose. She is not aware of any palpitations or lightheadedness. Her only physical complaint is some lower abdominal fullness. As you recall, she haschronic urinary tract infections. She has catheterization twice daily by her . The patient st ates that the urine has been quite concentrated lately and she remains on daily dose of Bactrim DS.She denies any fevers or chills. She denies hematuria. Vital signs include a blood pressure of 120/74, pulse is 62 and regular. Weight is 215 pounds with a BMI of 33.67. EKG shows normal sinus rhythm at 62 beats per minute and continued first-degree AV block. PAST HISTORY Past Medical Illnesses: asthma, HTN, hypothyoidism, diabetes, hyperlipidemia, major depression, anxiety, hypertension, Restless Leg syndrome Past Cardiac Illnesses: CAD, s/p CO Surgeries/Procedures - General: hysterectomy, tonsillectomy Cardiac/Vasc Procedures-Invasive: left heart cath 12/2012 ([place]) Cardiology Procedures-NonInvasive: echocardiogram Jun 2007, myocardial perfusion (Nuc) Jun 2007, echo 12/2012 ([place]), stress echo February 2013 Cardiac Cath Results: 12/2012 [place] NELIA to the mid and prox CFX, prox to mid LAD diffuse 30-40% dx, 90% small Diag 1, 30-40% prox/40-50% mid/40% distal RCA Left Ventricular Ejection Fraction: EF<GT>55% by Echo -Dec 2012 LVEF of 55-60% documented via stress echo on 03/22/2013 FAMILY HISTORY: Family - Age 48, carotid artery disease; CARDIAC RISK FACTORS Tobacco Abuse: used to smoke, but quit; Family History of Heart Disease: unknown; Hyperlipidemia: positive; Hypertension: positive; Diabetes Mellitus: positive; Prior History of Heart Disease: positive; Obesity:positive; Sedentary Life Style:negative; Age:positive; Menopausal:positive ; LDL Goal <LT> 70 SOCIAL HISTORY Alcohol Use - drinks regularly; Smoking - does not smoke; Diet - low cholesterol; Lifestyle - , drives car and active lifestyle; Exercise - exercises regularly; Seat Belt Use - always; 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 EYES wears eye glasses/contact lenses EARS, NOSE, THROAT, MOUTH partial hearing loss left ear RESPIRATORY history of asthma, cough, occ. CARDIOVASCULAR intermittent chest heaviness - unrelated to activity ABDOMINAL denies ulcer disease, hematochezia or melena. GENITOURINARY-FEMALE self catheterizations bid, urethral dilatations q3wks MUSCULOSKELETAL denies any history of arthritic symptoms or back problems. NEUROLOGICAL headaches, occ. PSYCHIATRIC denies any history of depression, substance abuse or change in cognitive functions. ENDOCRINE hypothyroidism, non-insulin dependent diabetes mellitus HEMATOLOGICAL/IMMUNOLOGIC seasonal allergies, takes allergy shots, allergies get worse in [place] but they can get bad in [place] too PHYSICAL EXAMINATION VITAL SIGNS: Blood Pressure: 120/74Sitting, Left arm, regular cuff Pulse- 73.00/min. Weight- 215.00 lbs. Height- 67 BMI Measurement: Gamelet Error: [FetchBack][[employer] SQL Tuft Machine Operator Medical Artist][SQL Tuft Machine Operator]Divide by zero error encountered. - [id number] CONSTITUTIONAL well developed, well nourished, in no acute distress SKIN warm and dry to touch, no apparent skin lesions or masses noted HEAD normocephalic EYES conjunctivae and lids unremarkable NECK no JVD or bruits CHEST clear to auscultation CARDIAC S1 normal, S2 normal, distant heart sounds PERIPHERAL PULSES radial pulse(s) 3+ EXTREMITIES & BACK no edema PSYCHIATRIC oriented to time, place, and person NEUROLOGICAL no gross motor or sensory deficits noted MEDICATIONS UPDATED/STARTED TODAY: Klor-Con 10 10 mEq tablet extended release, 2 p.o. PRN as Directed with Lasix, #0 (Zero) lamotrigine 100 mg tablet, 1 p.o. daily, #0 (Zero) Lasix 20 mg tablet, 1 p.o. PRN as Directed, #0 (Zero) Seroquel 50 mg tablet, 4 p.o. daily, #0 (Zero) MEDICATIONS REFILLED/STOPPED TODAY: Klor-Con 10 10 mEq tablet extended release 1 p.o. PRN as Directed #0 (Zero) Directions Changed-No Abbrvs, lamotrigine 200 mg tablet 1 p.o. daily #0 (Zero) Dosage Decreased, Lasix 40 mg tablet 1 p.o. PRN as Directed #0 (Zero) Dosage Decreased and Seroquel 200 mg tablet 1 p.o. qHS #0 (Zero) Directions Changed-No Abbrvs IMPRESSIONS/PLAN 1. Palpitations. Thus far on the event monitor we have an occasional PAC but she has been completely asymptomatic since her last visit. I asked her to continue to monitor to make certain we are not missing any ventricular ectopy. We checked a basic metabolic profile and magnesium at last office visit and these were both normal. She does have normal LV function and no left atrial enlargement. 2. Coronary artery disease. She had a zwa-AH-cpwpgxpuj myocardial infarction in December and remains on appropriate medical therapy although she describes chest heaviness rated 1 on a 10 point scale today. This is fleeting in nature and not associated with any activity. In addition, she has a negativestress echo from 2012. I do not believe her current symptoms are cardiac related. 3. Chronic urinary tract infections with self catheterization. She remains on chronic Bactrim with no evidence of hematuria, but she describes a lower abdominal heaviness and fullness which is uncomfortable. She denies any fevers or chills but given her history of urinary tract infections I feel she should be evaluated either in an Urgent Care Clinic or the Emergency Room. She has selected the Emergency Room and we will have one of our nurses take her via wheelchair. 4. Diabetes mellitus, recent hemoglobin A1C of 5.4. 5. Dyslipidemia. She will continue pravastatin at 40 mg q.d. Lipid profile from last March: total cholesterol 146, triglycerides 107, HDL 51, and LDL 74. Although Dr. Davis cited the recent guidelines for lipid management, he elected to keep her on pravastatin since she was doing well. 6. Obesity. Lifestyle modification is recommended. I advised her to decrease her caloric consumption and increase her physical activity. TODAYS ORDERS Cristy Hanna N.P. documented in this encounter Plan of Treatment Not on file documented as of this encounter Visit Diagnoses Not on filedocumented in this encounter Additional Health Concerns Infection Onset Date Last Indicated Resolved Time Rule Out COVID-19 07/25/2020 07/25/2020 07/26/2020 3:02 PM CDT Rule Out COVID-19 12/04/2020 12/04/2020 12/05/2020 6:04 PM LOADING UNIT OPERATOR SEATING documented as of this encounter Care Teams Senior Bi Developer Relationship Specialty Start Date End Date Cortez Lu MD XXX RETIRED XXX [address] [place] [phone] PCP - General 12/10/01 01/10/14 Niko Resendiz MD [address] [place] [id number] PCP - General Internal Medicine 01/11/14 01/29/14 Carlie Mac MD [address] [place] [address] PCP - General Pediatrics 01/30/14 07/17/15 Angella Mendieta MD [address] [place] [id number] PCP - General Family Practice 07/18/15 09/11/15 Julito Banuelos MD [address] [place] [id number] PCP - General Family Practice 09/12/15 09/23/21 Julito Banuelos MD [address] [place] [id number] PCP - Assigned PCP 02/17/16 12/28/18 Vika Kevin APRN INTERIOR ASSEMBLIES DEVELOPER [employer] [address] [place] [address] PCP - General Nurse Practitioner - Family 09/24/21 03/05/22 Vika Kevin APRN INTERIOR ASSEMBLIES DEVELOPER [place] [address] [place] [id number] PCP - General Nurse Practitioner - Family 03/18/22 06/18/22 Vika Kevin APRN INTERIOR ASSEMBLIES DEVELOPER [place] [address] [place] [id number] PCP - General Nurse Practitioner - Family 07/24/22 Julito Banuelos MD [address] [place] [address] Assigned PCP 02/17/16 07/21/[address] [place] [address] Head Of Business Development Dietitian, Registered 04/14/19 Mary Kay Jones [facility] Pharmacist 08/01/19 04/20/20 Susannah Blankenship [facility] [address] [place] [address] [address] [place] [address] Pharmacist Pharmacist 08/08/19 04/15/21 Carolyn Huynh, [facility] [address] [place] [address] Pharmacist Pharmacist 06/25/20 04/15/21 Vika Kevin, CASH POSTING SPECIALIST INTERIOR ASSEMBLIES DEVELOPER [place] [address] [place], [place] [address] Assigned PCP 07/22/20 11/16/24 Marilyn Willard MD [address] [facility] [address] [place] [address] Assigned Surgical Provider 08/17/20 08/16/24 Carie Varela DO [address] [place] [id number] Assigned Heart and Vascular Provider 08/17/20 01/19/21 Maylin May NP [address] [place], [place] [id number] Assigned Pediatric Specialist Provider 12/16/20 06/13/22 Marisa Rodrigues, RN Clinic Irrigation Technician 01/15/21 02/26/21 Vilma Long MD [address] [place] [id number] Assigned Heart and Vascular Provider 01/20/21 07/20/21 Yasmeen Pendleton [facility] [address] [place] [address] Pharmacist Pharmacist 06/04/21 01/15/22 Cole George LISW Lead Irrigation Technician 06/13/21 10/07/21 Fletcher Up Community Health Worker 06/13/21 09/12/21 Bautista Casey MD [address] [place] [id number] Assigned Heart and Vascular Provider 07/21/21 01/16/23 Jasmyn Oliver CHW Community Health Worker 09/13/21 10/07/21 Yasmeen Pendleton, [facility] [address] [place], [place] [id number] Assigned MTM Pharmacist 03/22/22 01/02/23 documented as of this encounter
--- OUTSIDE RECORDS SUMMARY | 2024-12-16 22:25 | XMS_ITS | Encounter Summary ---
Author Organization [place] Address [address] [facility] [place] [address] Care Team Providers Care Supervisor Cytology Name Role Phone Cortez Lu MD Primary Care Provider [phone] Niko Resendiz MD Primary Care Provider Carlie Mac MD Primary Care Provide r Angella Mendieta MD Primary Care Provider Julito Banuelos MD Primary Care Provider [phone] Julito Banuelos MD Unavailable Julito Banuelos MD Unavailable Aleshia Henriquez RD Unavailable Unavailable Mary Kay Jones [facility] Unavailable Unavailable Susannah Blankenship [facility] Unavailable [phone] Carolyn Huynh [facility] Unavailable [phone] Vika Kevin APRN PARKING MANAGER Unavailable + Marilyn Willard MD Unavailable [phone] Carie Varela DO Unavailable [phone] Maylin May NP Unavailable [phone] Marisa Rodrigues RN Unavailable Unavailable Vilma Long MD Unavailable + [phone] Yasmeen Pendleton [facility] Unavailable + [phone] Cole George Unavailable Fletcher Russell Unavailable Unavailable Bautista Casey MD Unavailable [phone] TatyanaJasmyn anand [facility] Unavailable [phone] Vika Kevin APRN [facility] Primary Care Prov ider Vika Kevin APRN [facility] Primary Care Prov ider Yasmeen Pendleton [facility] Unavailable + [phone] [facility] Primary Care Prov ider Encounter Details Date Type Department Care Team (Late st Contact Info) Description 12/23/2013 Office Visit-[facility] [address] [facility] [address] [place] [phone] Cristy Hanna, JAIME [facility] XXX RESIGNED XXX [address] [facility] [address] [place] [id number] Social History Tobacco Use Types Packs/Day Years Used Date Smoking Tobacco: Former Cigarettes 0.3 15 0 10/26/1961 - 10/26/1976 Smokeless Tobacco: Never Alcohol Use Standard Drinks/Week Comments Yes 0 (1 standard drink = 0.6 oz pur e alcohol) 1-2 glasses of wine weekly Comments No Sex and Gender Information Value Date Recorded Sex Assigned at Not on file Legal 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 ALLERGY SPECIALIST Gender Identity Not on file Sexual Orientation Not on file Occupation Industry Job Start Date Job End Date Not on file Not on file Not on file Not on file documented as of this encounter Progress Notes * Cristy Hanna, JENNY - 12/27/2013 12:45 PM CST Progress Note Created by: Cristy Hanna N.P. DATE: 12/23/2013 MARIALUISA COSBY DATE OF : 1940 AGE: [age] years old Referring Physician: CORTEZ LU Referring Clinic: [facility] CURRENT DIAGNOSES 1. Diabetes Crwpjktj-Dgg-Jyjohet Dependent, 250.00 2. - Hyperlipidemia mixed, 272.2 [...] daily 10. Nasacort AQ 55 mcg Aerosol, [place], Take as Directed 11. Plavix 75 mg tablet, 1 p.o. daily 12. pravastatin 40 mg tablet, 1 p.o. daily 13. Seroquel 50 mg tablet, 4 p.o. daily 14. Singulair 10 mg tablet, 1 p.o. daily 15. Synthroid 50 mcg tablet, 1 p.o. daily 16. trimethoprim 100 mg tablet, 1 p.o. daily 17. Xopenex HFA 45 mcg/actuation HFA Aerosol Inhaler, Take as Directed CHIEF COMPLAINTS Event Monitor Results HISTORY OF PRESENT ILLNESS I had the pleasure of seeing Marialuisa Cosby at the [facility].She is a 73-year-old white female with a history of coronary artery disease, hypertension, diabetes, dyslipidemia, and asthma. She is here today to review her recent event monitor. Her cardiovascular history includes hypertension, diabetes, and dyslipidemia. In December 2012 while visiting in [place], she had a non-ST elevation myocardial infarction and underwent an angiogram withPCI to the proximal and mid circumflex. LV function has been normal by echocardiogram. Apparently, that tax credit leasing consultant recommended lifelong Plavix. She established care here in our clinic with Dr. Davis in late August. At that point, she was doing well and was on appropriate medical therapy. I saw her at the end of October for evaluation of palpitations. Episodes have been awakening her from sleep, but were not accompanied by any chest discomfort or shortness of breath. Her heart rate was anywhere from 100 to 120 beats per minute by her monitoring. She took an extra dose of her metoprolol succinate 100 mg. I had her come to the clinic and an EKG revealed normal sinus rhythm at 60 beats per minute with a first degree AV block. We ordered an event monitor and some baseline labs. Her baseline labs were all within normal limits. In the interim, she was seen for follow up of intermittent chest heaviness but was more concerned about a lower abdominal fullness. As you recall, she does self urinary catheterization several times per day. I sent her to the Emergency Room for a full evaluation on that encounter. She was given IV antibiotics and sent home. Further transmissions from her event monitor revealed normal sinus rhythm with a first degree AV block. She has an occasional PAC and two episodes of tachycardia in the roller man hours of December 09, 2013. Maximum heart rate was 125 beats per minute. It appears that these episodes were not long lasting. The patient is not certain that she was awakened from sleep at that point. However, she does report an episode on December 16, 2013 were she felt her heart rate racing. She pressed the button twice on the monitor, but it did not capture. Since then, she has been feeling much improved. She feels that she is far less emotionally stressedsince she has basically made peace with the fact that she did actually have a heart attack. She is also very pleased that she has been given new equipment for self urinary catheterization and has really mastered that skill. She is physically active on a day to day basis. She describes no exertional chest discomfort or shortness of breath. She has had absolutely no further palpitations since the middle of this month withthe exception of December 16, 2013 as cited above. She has made a commitment to increase her physical activity and reduce her body weight. Vital signs today include a blood pressure of 112/64. Pulse was 64 and regular. Weight was 216 pounds. BMI was 33.8. PAST HISTORY Past Medical Illnesses: asthma, HTN, hypothyoidism, diabetes, hyperlipidemia, major depression, anxiety, hypertension, Restless Leg syndrome Past Cardiac Illnesses: CAD, s/p UT Surgeries/Procedures - General: hysterectomy, tonsillectomy Cardiac/Vasc Procedures-Invasive: left heart cath 12/2012 ([place]) Cardiology Procedures-NonInvasive: echocardiogram Jun 2007, myocardial perfusion (Nuc) Jun 2007, echo 12/2012 ([place]), stress echo February 2013 Cardiac Cath Results: 12/2012 [place] ENLIA to the mid and prox CFX, prox [...] - lives with ; Place of - [place]; REVIEW OF SYSTEMS GENERAL feeling much better INTEGUMENTARY denies any change in hair [...] too PHYSICAL EXAMINATION VITAL SIGNS: Blood Pressure: 112/64Sitting, Left arm, regular cuff Pulse- 0.00/min. Weight- .00 lbs. Height- 67 BMI Measurement: 34 CONSTITUTIONAL well developed, well nourished, in no [...] or sensory deficits noted MEDICATIONS UPDATED/STARTED TODAY: trimethoprim 100 mg tablet, 1 p.o. daily, #0 (Zero) IMPRESSIONS/PLAN ASSESSMENT/PLAN: 1. Palpitations. The event monitor revealed primarily normal sinus rhythm with a first degree AV block and an occasional PAC. She had some sinus tachycardia up to 125 beats per minute at 2:00 a.m. onFebruary 2013. Apparently, she was not awakened and did not take any extra metoprolol. She remains on metoprolol succinate 100 mg daily. Episodes are not associated with any shortness of breath or presyncope. She is very open in acknowledging her underlying anxiety. I feel that this likely contributes to her palpitations. Since we have not seen anything life threatening, I would not increase her beta-leo at this point. She is very satisfied with this plan of care. We will continue to monitor her. 2. Coronary artery disease. She denies exertional angina and remains on appropriate medical therapy. 3. Diabetes mellitus. Her last hemoglobin A1c was 5.4. 4. Dyslipidemia. She continues on pravastatin. Her lipid profile from last March included an HDL of 51. LDL was 74. Since she was doing well on this dose, Dr. Davis elected to continue it. The recentguidelines for lipid management were cited. 5. Obesity. I have encouraged her to increase her physical activity to reduce her body weight. She sounds very motivated, but has not set a weight loss goal. 6. Chronic urinary tract infections with self catheterization. She now has a new device, and thisis a marked improvement as she feels confident to do more traveling. She has transferred her cardiology care to Dr. Donald and will see her in mid February to establish care. Cristy Hanna, N.P. documented in this encounter Plan of Treatment Not on file documented as of this encounter Visit Diagnoses Not on filedocumented in this encounter Additional Health Concerns Infection Onset Date Last Indicated Resolved Time Rule Out COVID-19 07/25/2020 07/25/2020 07/26/2020 3:02 PM CDT Rule Out COVID-19 12/04/2020 12/04/2020 12/05/2020 6:04 PM ALLERGY SPECIALIST documented as of this encounter Care Teams Supervisor Cytology Relationship Specialty Start Date End Date Cortez Lu MD XXX RETIRED XXX [address] [place] [phone] PCP - General 12/10/01 01/10/14 Niko Resendiz MD [address] [place] [address] PCP - General Internal Medicine 01/11/14 01/29/14 Carlie Mac MD [address] [place] [address] PCP - General Pediatrics 01/30/14 07/17/15 Angella Mendieta MD [address] [place] [address] PCP - General Family Practice 07/18/15 09/11/15 Julito Banuelos MD [address] [place] [address] [phone] PCP - General Family Practice 09/12/15 09/23/21 Julito Banuelos MD [address] [place] [address] PCP - Assigned PCP 02/17/16 12/28/18 Vkia Kevin APRN PARKING MANAGER [address] [place] [address] PCP - General Nurse Practitioner - Family 09/24/21 03/05/22 Vika Kevin APRN PARKING MANAGER [address] [place] [address] PCP - General Nurse Practitioner - Family 03/18/22 06/18/22 Vika Kevin APRN PARKING MANAGER [address] [place] [address] [id number] PCP - General Nurse Practitioner - Family 07/24/22 Julito Banuelos MD [address] [place] [address] 484902 Assigned PCP 02/17/16 07/21/[address] [place] [address] Engineering Patternmaker Dietitian, Registered 04/14/19 Mary Kay Jones, [facility] Pharmacist 08/01/19 04/20/20 [facility] [address] [place] [address] [address] [place], [place] 111195 Pharmacist Pharmacist 08/08/19 04/15/21 Carolyn Huynh [facility] [address] [place] [address] Pharmacist Pharmacist 06/25/20 04/15/21 Vika Kevin APRN PARKING MANAGER [address] [place] [address] [id number] Assigned PCP 07/22/20 11/16/24 Marilyn Willard MD [address] [place] [address] [address] [place], [place] [phone] Assigned Surgical Provider 08/17/20 08/16/24 Carie Varela DO [address] [place] [address] Assigned Heart and Vascular Provider 08/17/20 01/19/21 Maylin May NP [address] [place] [address] Assigned Pediatric Specialist Provider 12/16/20 06/13/22 Marisa Rodrigues, RN Clinic Tow Operator 01/15/21 02/26/21 Vilma Long MD [address] [place] [address] Assigned Heart and Vascular Provider 01/20/21 07/20/21 [facility] [address] [place] [id number] Pharmacist Pharmacist 06/04/21 01/15/22 Cole George LISW Lead Tow Operator 06/13/21 10/07/21 Fletcher Up Community Health Worker 06/13/21 09/12/21 Bautista Casey MD [address] [place] [address] Assigned Heart and Vascular Provider 07/21/21 01/16/23 Jasmyn Oliver CHW Community Health Worker 09/13/21 10/07/21 Yasmeen Pendleton [facility] [address] [place] [address] Assigned MTM Pharmacist 03/22/22 01/02/23 documented as of this encounter
--- OUTSIDE RECORDS SUMMARY | 2024-12-16 22:25 | XMS_ITS | Encounter Summary ---
Author Organization [place] Address [address] [facility] [place] [address] Care Team Providers Care Recruitment Coordinator Name Role Phone Julito Banuelos MD Primary Care Provider [phone] Unavailable Unavailable Susannah Blankenship [facility] Unavailable [phone] Carolyn Huynh [facility] Unavailable [phone] Vika Kevin APRN [facility] Unavailable + Marilyn Willard MD Unavailable [phone] Carie Varela DO Unavailable [phone] Maylin May NP Unavailable [phone] Marisa Hernandez RN Unavailable Unavailable Vilma Long MD Unavailable + [phone] Yasmeen Pendleton [facility] Unavailable Cole George Unavailable Fletcher Russell Unavailable Unavailable Bautista Casey MD Unavailable [phone] Jasmyn Oliver Unavailable [phone] Vika Kevin APRN [facility] Primary Care Prov ider Vika Kevin APRN [facility] Primary Care Prov ider Yasmeen Pendleton [facility] Unavailable + [phone] Vika Kevin SPINNING MULE TENDER [facility] Primary Care Prov ider Reason for Visit * Reason Onset Date Comments Pending Orders/need approval 10/31/2020 req uesting homecare orders. Encounter Details Date Type Department Care Team (Late st Contact Info) Description 10/31/[address] [phone] Julito Banuelos MD [address] [place] [address] Pending Orders/need approval (requesting homecare orders.) Social History Tobacco Use Types Packs/Day Years [...] on file Legal 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 SETTER MOLDING AND COREMAKING MACHINES Gender Identity Not on file Sexual Orientation Not on file Occupation Industry Job Start Date Job End Date Not on file Not on file Not on file Not on file COVID-19 Exposure Response Date Recorded In the last month, have you been in contact with someone who was confirmed or suspected to have Coronavirus / COVID-19? No / Unsure 10/23/2020 11:41 AM SETTER MOLDING AND COREMAKING MACHINES documented as of this encounter Miscellaneous Notes * Telephone Encounter - Julito Banuelos MD - 10/31/2020 5:42 PM CST Images from the original note were not included. Reviewed, would advise patient complete whatever advised Julito Banuelos MD, FAAFP [facility] [address] [place] [phone] [email or web address] Office: Pager: ER MOLDING AND COREMAKING MACHINES * Telephone Encounter - Candie Rajput - 10/31/2020 5:18 PM CST [facility] now requests orders and shares plan of care/discharge summaries for some patients through [facility]. Please REPLY TO THIS MESSAGE OR ROUTE BACK TO THE AUTHOR in order to give authorization for orders when needed. This is considered a verbal order, you will stillreceive a faxed copy of orders for signature. Thank you for your assistance in improving collaboration for our patients. ORDER The pt did not want any further Nursing,OT,CREDIT REVIEW MANAGER or SW at this time SOC PT eval and treat x 1 for gait,strength,endurance,fall risk prevention,transfers,saftey Thank you for the referral Candie Rajput RN [phone] Cell. ER MOLDING AND COREMAKING MACHINES documented in this encounter Plan of Treatment Not on file documented as of this encounter Visit Diagnoses Not on filedocumented in this encounter Additional Health Concerns Infection Onset Date Last Indicated Resolved Time Rule Out COVID-19 12/04/2020 12/04/2020 12/05/2020 6:04 PM SETTER MOLDING AND COREMAKING MACHINES Assessment Noted Time PHQ-9 Depression Total Score: 10 020 9:30 AM SETTER MOLDING AND COREMAKING MACHINES documented as of this encounter Care Teams Recruitment Coordinator Relationship Specialty Start Date End Date Julito Banuelos MD [address] [place] [address] PCP - General Family Practice 09/12/15 09/23/21 Vika Kevin APRN EQUIPMENT OPERATOR/LABORER [address] [place] [address] PCP - General Nurse Practitioner - Family 09/24/21 03/05/22 Vika Kevin APRN EQUIPMENT OPERATOR/LABORER [address] [place] [address]689 PCP - General Nurse Practitioner - Family 03/18/22 06/18/22 Vika Kevin APRN EQUIPMENT OPERATOR/LABORER [address] [place] [address] [phone] PCP - General Nurse Practitioner - Family 07/24/22 Aleshia Henriquez, DAVE [address] [place] [address] Bias Cutter Dietitian, Registered 04/14/19 Susannah Blankenship, [facility] [address] [place] [address] [address] [place], [place] [phone] Pharmacist Pharmacist 08/08/19 04/15/21 Carolyn Huynh [facility] [address] [place] [address] Pharmacist Pharmacist 06/25/20 04/15/21 Vika Kevin, JAIME EQUIPMENT OPERATOR/LABORER [address] [place] [address] Assigned PCP 07/22/20 11/16/24 Marilyn Willard MD [address] [place] [address] [address] [place], [place] 234525 Assigned Surgical Provider 08/17/20 08/16/24 Carie Varela DO [address] [place] [address] Assigned Heart and Vascular Provider 08/17/20 01/19/21 Malyin May NP [address] [facility] [place] [address] Assigned Pediatric Specialist Provider 12/16/20 06/13/22 Marisa Rodrigues, RN Clinic Button Bradder 01/15/21 02/26/21 Vilma Long MD [address] [place] [address] Assigned Heart and Vascular Provider 01/20/21 07/20/21 [facility] [address] [place] [place] [address] [phone] Pharmacist Pharmacist 06/04/21 01/15/22 Cole George LISW Lead Button Bradder 06/13/21 10/07/21 Fletcher Up Community Health Worker 06/13/21 09/12/21 Bautista Casey MD [address] [place] [address] Assigned Heart and Vascular Provider 07/21/21 01/16/23 Jasmyn Oliver CHW Community Health Worker 09/13/21 10/07/21 [facility] [address] [place] [address] Assigned MTM Pharmacist 03/22/22 01/02/23 documented as of this encounter
--- OUTSIDE RECORDS SUMMARY | 2024-12-16 22:25 | XMS_ITS | Encounter Summary ---
Author Organization [place] Address [address] [facility] [place] [address] Care Team Providers Care Silverware Buffer Name Role Phone Andrew Lu MD Primary Care Provider [phone] Niko Resendiz MD Primary Care Provider Carlie Mac MD Primary Care Provide r Angella Mendieta MD Primary Care Provider Julito Banuelos MD Primary Care Provider [phone] Julito Banuelos MD Unavailable Julito Bnauelos MD Unavailable Aleshia Henriquez RD Unavailable Unavailable Mary Kay Jones [facility] Unavailable Unavailable Susannah Blankenship [facility] Unavailable [phone] Carolyn Huynh [facility] Unavailable [phone] Vika Kevin APRN SECURITY AND COMPLIANCE ANALYST Unavailable + Marilyn Willard MD Unavailable [phone] Carie Varela DO Unavailable [phone] Maylin May NP Unavailable [phone] Marisa Rodrigues RN Unavailable Unavailable Vilma Long MD Unavailable + [phone] Yasmeen Pendleton [facility] Unavailable [phone] Cole George Unavailable Fletcher Russell Unavailable Unavailable Bautista Casey MD Unavailable DemetriusJasmyn wright [facility] Unavailable Vika [facility] Primary Care Prov ider Vika Kevin APRN [facility] Primary Care Prov ider Yasmeen Pendleton [facility] Unavailable Vika [facility] Primary Care Prov ider Encounter Details Date Type Department Care Team (Late st Contact Info) Description 12/28/[address] [facility] - Primary Care Skin [address] [place] [phone] Jenn Yip MD [address] [facility] [place] [address] Social History Tobacco Use Types Packs/Day Years [...] file Legal 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 RETAIL COMMISSION SALES ASSOCIATE Gender Identity Not on file Sexual Orientation [...] COVID-19 12/04/2020 12/04/2020 12/05/2020 6:04 PM RETAIL COMMISSION SALES ASSOCIATE documented as of this encounter Care Teams Silverware Buffer Relationship Specialty Start Date End Date Andrew Lu MD XXX RETIRED XXX [address] [place] [phone] PCP - General 12/10/01 01/10/14 Niko Resendiz MD [address] [place] [address] PCP - General Internal Medicine 01/11/14 01/29/14 Carlie Mac MD [address] [place] [address] PCP - General Pediatrics 01/30/14 07/17/15 Angella Mendieta MD [address] [place] [address] PCP - General Family Practice 07/18/15 09/11/15 Julito Banuelos MD [address] [place] [address] PCP - General Family Practice 09/12/15 09/23/21 Julito Banuelos MD [address] [place] [address] PCP - Assigned PCP 02/17/16 12/28/18 Vika Kevin APRN SECURITY AND COMPLIANCE ANALYST [address] [place] [address] PCP - General Nurse Practitioner - Family 09/24/21 03/05/22 Vika Kevin APRN SECURITY AND COMPLIANCE ANALYST [address] [place] [address] PCP - General Nurse Practitioner - Family 03/18/22 06/18/22 Vika Kevin APRN SECURITY AND COMPLIANCE ANALYST [address] [place] [address] [phone] PCP - General Nurse Practitioner - Family 07/24/22 Julito Banuelos MD [address] [place] [address] [phone] Assigned PCP 02/17/16 07/21/[address] [place] [address] School Coordinator Dietitian, Registered 04/14/19 Mary Kay Jones, [facility] Pharmacist 08/01/19 04/20/20 Susannah Blankenship, [facility] [address] [facility] [address] [place], [place] 37[address] Pharmacist Pharmacist 08/08/19 04/15/21 Carolyn Huynh, [facility] [address] [place], [place] [address] Pharmacist Pharmacist 06/25/20 04/15/21 Vika Kevin, JAIME SECURITY AND COMPLIANCE ANALYST [address] [place] [address] [phone] Assigned PCP 07/22/20 11/16/24 Marilyn Willard MD [address] [facility] [address] [place], [place] 7[address] Assigned Surgical Provider 08/17/20 08/16/24 Carie Varela DO [address] [place] [address] Assigned Heart and Vascular Provider 08/17/20 01/19/21 Maylin May NP [address] [facility] [address] Assigned Pediatric Specialist Provider 12/16/20 06/13/22 Marisa Rodrigues, RN Clinic Licensed Professional Counselor 01/15/21 02/26/21 Vilma Long MD [address] [place] [address] Assigned Heart and Vascular Provider 01/20/21 07/20/21 Yasmeen Pendleton [facility] [address] [place] [address] Pharmacist Pharmacist 06/04/21 01/15/22 Cole Goerge LISW Lead Licensed Professional Counselor 06/13/21 10/07/21 Fletcher Up Community Health Worker 06/13/21 09/12/21 Bautista Casey MD [address] [place] [address] Assigned Heart and Vascular Provider 07/21/21 01/16/23 Jasmyn Oliver CHW Community Health Worker 09/13/21 10/07/21 [facility] [address] [place] [address] Assigned MTM Pharmacist 03/22/22 01/02/23 documented as of this encounter
--- OUTSIDE RECORDS SUMMARY | 2024-12-16 22:25 | XMS_ITS | Encounter Summary ---
Author Organization [facility] Address [address] [facility] [place] [address] Care Team Providers Care Vault Worker Name Role Phone Julito Banuelos MD Primary Care Provider [phone] Julito Banuelos MD Unavailable Aleshia Henriquez RD Unavailable Unavailable Susannah Blankenship [facility] Unavailable [phone] Carolyn Huynh [facility] Unavailable [phone] Vika Kevin APRN RAILROAD REPAIRER Unavailable + Marilyn Willard MD Unavailable [phone] Carie Varela DO Unavailable [phone] Maylin May NP Unavailable [phone] Marisa Hernandez RN Unavailable Unavailable Vilma Long MD Unavailable + [phone] Yasmeen Pendleton [facility] Unavailable Cole George Unavailable Fletcher Russell Unavailable Unavailable Bautista Casey MD Unavailable [phone] Jasmyn Oliver Unavailable [phone] Vika Kevin APRN RAILROAD REPAIRER Primary Care Prov ider Vika Kevin APRN [facility] Primary Care Prov ider Yasmeen Pendleton [facility] Unavailable + [phone] Vika Kevin APRN [facility] Primary Care [facility] ider Reason for Visit * Reason Comments Medication Refill Encounter Details Date Type Department Care Team (Late st Contact Info) Description 06/26/[address] [address] [place] [address] [place] [address] Medication Refill Social History Tobacco Use Types Packs/Day Years Used Date Smoking Tobacco: Former Cigarettes 0.3 15 0 10/26/1961 - 10/26/1976 Smokeless Tobacco: Never Alcohol Use Standard Drinks/Week Comments Yes 6 (1 standard drink = 0.6 oz pur e alcohol) couple days a week PHQ-2 Answer Date Recorded PHQ-2 Score 3 06/19/2020 Comments No Sex and Gender Information Value Date Recorded Sex Assigned at Not on file Legal 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 DRILLER PORTABLE Gender Identity Not on file Sexual Orientation Not on file Occupation Industry Job Start Date Job End Date Not on file Not on file Not on file Not on file COVID-19 Exposure Response Date Recorded In the last month, have you been in contact with someone who was confirmed or suspected to have Coronavirus / COVID-19? No / Unsure 06/28/2020 2:19 PM CDT documented as of this encounter Miscellaneous Notes * Telephone Encounter - Leslye Steiner RN - 06/26/2020 12:25 PM CDT Refill per RN protocol Leslye Steiner RN, BSN [facility] Triage * Telephone Encounter - Maylin Diaz - 06/26/2020 9:18 AM CDT Patient's calling already to see if this can be done today. Advised of the refill policy. Francisca Diaz, Automation Controls Specialist documented in this encounter Plan of Treatment Not on file documented as of this encounter Visit Diagnoses Diagnosis Environmental allergies Allergic rhinitis, cause unspecified documented in this encounter Additional Health Concerns Infection Onset Date Last Indicated Resolved Time Rule Out COVID-19 07/25/2020 07/25/2020 07/26/2020 3:02 PM CDT Rule Out COVID-19 12/04/2020 12/04/2020 12/05/2020 6:04 PM DRILLER PORTABLE Assessment Noted Time PHQ-9 Depression Total Score: 12 020 3:35 PM CDT documented as of this encounter Care Teams Vault Worker Relationship Specialty Start Date End Date Julito Banuelos MD [address] [place] [address] PCP - General Family Practice 09/12/15 09/23/21 Vika Kevin APRN RAILROAD REPAIRER [address] [place] [address] PCP - General Nurse Practitioner - Family 09/24/21 03/05/22 Vika Kevin APRN RAILROAD REPAIRER [address] [place] [address] PCP - General Nurse Practitioner - Family 03/18/22 06/18/22 Vika Kevin APRN RAILROAD REPAIRER [address] [place] [address] PCP - General Nurse Practitioner - Family 07/24/22 Julito Banuelos MD [address] [place] [address] Assigned PCP 02/17/16 07/21/[address] [place] [address] Animal Damage Control Agent Dietitian, Registered 04/14/19 Susannah Blankenship, [facility] [address] [facility] [address] [place] [address] Pharmacist Pharmacist 08/08/19 04/15/21 Carolyn Huynh, [facility] [address] [place] [address] Pharmacist Pharmacist 06/25/20 04/15/21 Vika Kevin APRN RAILROAD REPAIRER [address] [place] [address] [id number] Assigned PCP 07/22/20 11/16/24 Marilyn Willard MD [address] [facility] [address] [place], [place] [address] Assigned Surgical Provider 08/17/20 08/16/24 Carie Varela DO [address] [place] [id number] Assigned Heart and Vascular Provider 08/17/20 01/19/21 Maylin May NP [address] [place] [address] Assigned Pediatric Specialist Provider 12/16/20 06/13/22 Marisa Rodrigues, RN Clinic Oxygen Equipment Aide 01/15/21 02/26/21 Vilma Long MD [address] [place] [id number] Assigned Heart and Vascular Provider 01/20/21 07/20/21 Yasmeen Pendleton [facility] [address] [place], [place] [id number] Pharmacist Pharmacist 06/04/21 01/15/22 Cole George LISW Lead Oxygen Equipment Aide 06/13/21 10/07/21 Fletcher Up Community Health Worker 06/13/21 09/12/21 Bautista Casey MD [address] [place], [place] [address] Assigned Heart and Vascular Provider 07/21/21 01/16/23 Jasmyn Oliver CHW Community Health Worker 09/13/21 10/07/21 Yasmeen Pendleton [facility] [address] [place] [address] Assigned MTM Pharmacist 03/22/22 01/02/23 documented as of this encounter
--- OUTSIDE RECORDS SUMMARY | 2024-12-16 22:25 | XMS_ITS | Encounter Summary ---
Author Organization [place] Address [address] [facility] [place] [address] Care Team Providers Care Keypunch Operators Supervisor Name Role Phone Andrew Lu MD Primary Care Provider [phone] Niko Resendiz MD Primary Care Provider Carlie Mac MD Primary Care Provide r Angella Mendieta MD Primary Care Provider Julito Banuelos MD Primary Care Provider [phone] Julito Banuelos MD Unavailable Julito Banuelos MD Unavailable Aleshia Henriquez RD Unavailable Unavailable Mary Kay Jones [facility] Unavailable Unavailable Susannah Blankenship [facility] Unavailable [phone] Carolyn Huynh [facility] Unavailable [phone] Vika Kevin APRN ELECTRIC MOTOR FITTER Unavailable + Marilyn Willard MD Unavailable [phone] Carie Varela DO Unavailable [phone] Maylin May NP Unavailable [phone] Marisa Rodrigues RN Unavailable Unavailable Vilma Long MD Unavailable + [phone] Yasmeen Pendleton [facility] Unavailable + [phone] Cole George Unavailable Fletchre Russell Unavailable Unavailable Bautista Casey MD Unavailable DemetriusJasmyn wright [facility] Unavailable [phone] Vika Kevin APRN [facility] Primary Care Prov ider Vika Kevin APRN [facility] Primary Care Prov ider Yasmeen Pendleton [facility] Unavailable + [phone] Vika Kevin APRN [facility] Primary Care Prov ider Encounter Details Date Type Department Care Team (Late st Contact Info) Description 01/05/2014 My[facility] Medical Advice [address] [address] Mary Cha LPN Social History Tobacco Use Types Packs/Day Years Used Date Smoking Tobacco: Former Cigarettes 0.3 15 0 10/26/1961 - 10/26/1976 Smokeless Tobacco: Never Alcohol Use Standard Drinks/Week Comments Yes 0 (1 standard drink = 0.6 oz pur e alcohol) 1-2 glasses of wine weekly Comments No Sex and Gender Information Value Date Recorded Sex Assigned at Not on file Legal 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 CARBON 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 ENGINEER Gender Identity Not on file Sexual Orientation [...] Out COVID-19 12/04/2020 12/04/2020 12/05/2020 6:04 PM CARBON 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 ENGINEER documented as of this encounter Care Teams Keypunch Operators Supervisor Relationship Specialty Start Date End Date Andrew Lu MD XXX RETIRED XXX [address] [place] [address] PCP - General 12/10/01 01/10/14 Niko Resendiz MD [address] [place] [address] PCP - General Internal Medicine 01/11/14 01/29/14 Carlie Mac MD [address] [place] [address] PCP - General Pediatrics 01/30/14 07/17/15 Agnella Mendieta MD [address] [place] [address] PCP - General Family Practice 07/18/15 09/11/15 Julito Banuelos MD [address] [place] [address] PCP - General Family Practice 09/12/15 09/23/21 Julito Banuelos MD [address] [place] [address] PCP - Assigned PCP 02/17/16 12/28/18 Vika Kevin APRN ELECTRIC MOTOR FITTER [address] [place] [address] PCP - General Nurse Practitioner - Family 09/24/21 03/05/22 Vika Kevin APRN ELECTRIC MOTOR FITTER [address] [place] [address] PCP - General Nurse Practitioner - Family 03/18/22 06/18/22 Vika Kevin APRN ELECTRIC MOTOR FITTER [address] [place] [address] [phone] PCP - General Nurse Practitioner - Family 07/24/22 Julito Banuelos MD [address] [place] [address] [id number] Assigned PCP 02/17/16 07/21/[address] [place] [address] Stone Finisher Dietitian, Registered 04/14/19 Mary Kay Jones, [facility] Pharmacist 08/01/19 04/20/20 [facility] [address] [place] [address] [address] [place], [place] [address] Pharmacist Pharmacist 08/08/19 04/15/21 [facility] [address] [place], [place] [id number] Pharmacist Pharmacist 06/25/20 04/15/21 Vika Kevin APRN ELECTRIC MOTOR FITTER [address] [place] [address] [id number] Assigned PCP 07/22/20 11/16/24 Marilyn Willard MD [address] [place] [address] [address] [place] [address] Assigned Surgical Provider 08/17/20 08/16/24 Carie Varela DO [address] [place], [place] [address] Assigned Heart and Vascular Provider 08/17/20 01/19/21 Maylin May NP [address] [place] [address] Assigned Pediatric Specialist Provider 12/16/20 06/13/22 Marisa Rodrigues, RN Clinic Ward Maid 01/15/21 02/26/21 Vilma Long MD [address] [place] [address] Assigned Heart and Vascular Provider 01/20/21 07/20/21 Yasmeen Pendleton [facility] [address] [place] [id number] Pharmacist Pharmacist 06/04/21 01/15/22 Cole George LISW Lead Ward Maid 06/13/21 10/07/21 Fletcher Up Community Health Worker 06/13/21 09/12/21 Bautista Casey MD [address] [place] [address] Assigned Heart and Vascular Provider 07/21/21 01/16/23 Jasmyn Oliver CHW Community Health Worker 09/13/21 10/07/21 Yasmeen Pendleton [facility] [address] [place] [address] [id number] Assigned MTM Pharmacist 03/22/22 01/02/23 documented as of this encounter
--- OUTSIDE RECORDS SUMMARY | 2024-12-16 22:25 | XMS_ITS | Encounter Summary ---
Author Organization [place] Address [address] [facility] [place] [address] Care Team Providers Care Corset Fitter Name Role Phone Cortez Lu MD Primary Care Provider [phone] Niko Resendiz MD Primary Care Provider Carlie Mac MD Primary Care Provide r Angella Mendieta MD Primary Care Provider Julito Banuelos MD Primary Care Provider [phone] Julito Banuelos MD Unavailable Julito Banuelos MD Unavailable Aleshia Henriquez RD Unavailable Unavailable Mary Kay Jones [facility] Unavailable Unavailable Susannah Blankenship [facility] Unavailable [phone] Carolyn Huynh [facility] Unavailable [phone] Vika Kevin APRN RESOURCE SPECIALIST TEACHER Unavailable + Marilyn Willard MD Unavailable [phone] Carie Varela DO Unavailable [phone] Maylin May NP Unavailable [phone] Marisa Rodrigues RN Unavailable Unavailable Vilma Long MD Unavailable + [phone] Yasmeen Pendleton [facility] Unavailable + [phone] Cole George Unavailable Fletcher Russell Unavailable Unavailable Bautista Casey MD Unavailable [phone] TatyanaJasmyn anand [facility] Unavailable [phone] Vika Kevin APRN [facility] Primary Care Prov ider Vika Kevin APRN [facility] Primary Care Prov ider Yasmeen Pendleton [facility] Unavailable + [phone] Vika [facility] Primary Care Prov ider Encounter Details Date Type Department Care Team (Late st Contact Info) Description 11/14/2013 Office Visit-[facility] Heart [facility] [address] [facility] [address] [place] [phone] Cristy Hanna, JAIME [facility] XXX RESIGNED XXX [address] [facility] [address] [place] [id number] Social History Tobacco Use Types Packs/Day Years Used Date Smoking Tobacco: Former Cigarettes 0.3 15 0 10/26/1961 - 10/26/1976 Smokeless Tobacco: Never Alcohol Use Standard Drinks/Week Comments Yes 0 (1 standard drink = 0.6 oz pur e alcohol) 1-2 glasses of wine weekly Comments No Sex and Gender Information Value Date Recorded Sex Assigned at Not on file Legal 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 POLYSILICON PREPARATION 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 DATE: 11/14/2013 MARIALUISA COSBY DATE OF : 1940 AGE: [age] years old Referring Physician: CORTEZ LU Referring Clinic: [facility] CURRENT DIAGNOSES 1. Diabetes Cssaxnwp-Ofp-Cgwdrvb Dependent, 250.00 2. - Hyperlipidemia mixed, 272.2 [...] extended release, 1 p.o. PRN as Directed 4. lamotrigine 200 mg tablet, 1 p.o. daily 5. Lasix 40 mg tablet, 1 p.o. PRN as Directed 6. levocetirizine 5 mg tablet, 1 p.o. daily 7. losartan 25 mg tablet, 1 p.o. daily 8. metoprolol succinate 100 mg tablet extended release 24 hr, 1 p.o. daily 9. multivitamin tablet, 1 p.o. daily 10. Nasacort AQ 55 mcg Aerosol, [place], Take as Directed 11. Plavix 75 mg tablet, 1 p.o. daily 12. pravastatin 40 mg tablet, 1 p.o. daily 13. Seroquel 200 mg tablet, 1 p.o. qHS 14. Singulair 10 mg tablet, 1 p.o. daily 15. Synthroid 50 mcg tablet, 1 p.o. daily 16. Xopenex HFA 45 mcg/actuation HFA Aerosol Inhaler, Take as Directed CHIEF COMPLAINTS fast heart rate waking her from slee[ HISTORY OF PRESENT ILLNESS: I had the pleasure of meeting Marialuisa James, at [facility]. She is a 73-year-old white female with a history of coronary artery disease, hypertension, diabetes mellitus, dyslipidemia and asthma, who is here today for evaluation of pal pitations, which awoke her from sleep. Her cardiovascular history includes hypertension, diabetes mellitus and dyslipidemia. In December 2012while in [place] she had a non-ST elevation myocardial infarction and underwent angiogram with PCI to the proximal and mid circumflex. LV function has been normal by echocardiogram. Apparently the car diologist in [place] recommended lifelong Plavix. She was last seen by Dr. Davis in late August. At that point she was doing well and on appropriate medical therapy. He sited the recent recommendation for statin therapy in patients with known atherosclerotic disease. That recommendation would be high dose statin therapy in the form of Lipitor or Crestor, however, she has been tolerating her pravastatin 40 mg daily and he elected to continue that. She was in her usual state of health until approximately two weeks ago when she suddenly awoke froma deep sleep with a sensation of a pounding fast heartbeat and diaphoresis. This was not associatedwith any chest discomfort or shortness of breath. She does not monitor her glucose anymore since she was told diabetes mellitus is under control by A1c. She felt her heart rate was in the neighborhood of 100 to 120 and therefore she took an extra dose of her metoprolol succinate 100 mg. After approximately one hour the symptoms resolved and she had no recurrence. She is physically active during the day. She can ride a stationary bike without discomfort and do her own housework. Early this morning she again woke from a deep sleep with a sensation of a fast pounding heart rate.By palpating the radial artery she felt it was 110 to 120 beats per minute. Again there was no chest discomfort or shortness of breath. She did feel presyncopal, she did not check her blood sugar. She took an extra dose of the metoprolol and after approximately two hours she felt her heart rate gradually decreased. She does not have any history of dysrhythmias nor do I have any documentation of prior Holter monitoring. She does not recall any physician advising her that she had any irregular heartbeats in the past. On a noncardiac note, she has frequent urinary tract infections and was on Cipro two weeks ago witha clean UA after completing therapy. She also has a history of urethral stenosis and has dilatations every three weeks. She is now doing self-catheterization two times per day. She was seen in her primary care physician's office on November 08 with some vague complaints of fatigue. TSH and T4 were normal with a hemoglobin A1c of 5.4. Vital signs include a blood pressure of 116/84, pulse is 60 and regular, weight is 220.6 pounds, which is down approximately 1-1/2 pounds from August, body mass index remains elevated at 34.6. EKG today shows normal sinus rhythm at 60 beats per minute with a first degree AV block of approximately 220 milliseconds. I have no prior EKGs for comparison. 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 EYES wears eye glasses/contact lenses EARS, NOSE, THROAT, MOUTH partial hearing loss left ear RESPIRATORY history of asthma, cough, occ. CARDIOVASCULAR palpitations, edema ABDOMINAL denies ulcer disease, hematochezia or melena. GENITOURINARY-FEMALE self catheterizations bid, urethral dilatations q3wks MUSCULOSKELETAL denies any history of arthritic symptoms or back problems. NEUROLOGICAL headaches, occ. PSYCHIATRIC denies any history of depression, substance abuse or change in cognitive functions. ENDOCRINE hypothyroidism, non-insulin dependent diabetes mellitus HEMATOLOGICAL/IMMUNOLOGIC seasonal allergies, takes allergy shots, allergies get worse in [place] but they can get bad in [place] too PHYSICAL EXAMINATION VITAL SIGNS: Blood Pressure: 116/84Sitting, Left arm, large cuff Pulse- 60.00/min. Weight- 220.60 lbs. Height- 67 BMI Measurement: 34 CONSTITUTIONAL well developed, well nourished, in no acute distress SKIN warm and dry to touch, no apparent skin lesions or masses noted HEAD normocephalic EYES conjunctivae and lids unremarkable CHEST clear to auscultation CARDIAC S1 normal, S2 normal, distant heart sounds ABDOMEN abdomen soft PERIPHERAL PULSES radial pulse(s) 3+ EXTREMITIES & BACK ankle edema PSYCHIATRIC oriented to time, place, and person NEUROLOGICAL no gross motor or sensory deficits noted MEDICATIONS UPDATED/STARTED TODAY: lamotrigine 200 mg tablet, 1 p.o. daily, #0 (Zero) Seroquel 200 mg tablet, 1 p.o. qHS, #0 (Zero) MEDICATIONS REFILLED/STOPPED TODAY: bethanechol chloride 50 mg tablet 1 p.o. daily #0 (Zero) Patient Request, lamotrigine 100 mg tablet1 p.o. daily #0 (Zero) Dosage Increased, methocarbamol 750 mg tablet 1 p.o. PRN as Directed #0 (Zero) Patient Request, quetiapine 50 mg tablet 1 p.o. daily #0 (Zero) Patient Request, trimethoprim 100mg tablet 1 p.o. daily #0 (Zero) Patient Request and Xolair 150 mg Recon Soln Take as Directed #0 (Zero) Patient Request IMPRESSIONS/PLAN ASSESSMENT AND PLAN: 1. Palpitations. She has had two episodes of palpitations awakening her from sleep. She does not recall if she was dreaming, but the symptoms seemed to last one to two hours and were relieved with use of an extra dose of her beta leo. To further evaluate her palpitations I have ordered a 30 dayevent monitor. We will also check a basic metabolic panel since she is on as needed Lasix. Echocardiogram from December 2012 notes normal LV function with mild concentric LVH and no atrial enlargement. As noted above, she has a history of hypothyroidism and recent labs were within normal limits. I will have her return to clinic in two to four weeks to review the event monitor. 2. Coronary artery disease. She had a non-ST elevation myocardial infarction in December. She denies any anginal chest discomfort even with the palpitations. She remains on appropriate medical therapy with aspirin, beta leo, angiotensin receptor leo plus statin. She is continuing her Plavix lifelong and denies any pr oblems with bleeding. She also has a negative stress echo from February of 2013. 3. Diabetes mellitus. Hemoglobin A1c is 5.4. 4. Chronic urinary tract infections with self-catheterization. She denies any symptoms of urinary tract infection. There has been no fever, but she did have a recent urinary tract infection treated with Bactrim. 5. Hyperlipidemia. We will continue her pravastatin at 40 mg. 6. Asthma with multiple inhalers. 7. Obesity. Lifestyle modification is recommended with increasing her physical activity and decreasing her caloric consumption. TODAYS ORDERS 1. BMP Today 2. F/U with Cristy Hanna CNP 2-4 weeks 3. Magnesium Today 4. Wireless Loop Recorder Today Cristy Hanna N.P. documented in this encounter Plan of Treatment Not on file documented as of this encounter Visit Diagnoses Not on filedocumented in this encounter Additional Health Concerns Infection Onset Date Last Indicated Resolved Time Rule Out COVID-19 07/25/2020 07/25/2020 07/26/2020 3:02 PM CDT Rule Out COVID-19 12/04/2020 12/04/2020 12/05/2020 6:04 PM POLYSILICON PREPARATION WORKER documented as of this encounter Care Teams Corset Fitter Relationship Specialty Start Date End Date Cortez Lu MD XXX RETIRED XXX [address] [place] [phone] PCP - General 12/10/01 01/10/14 Niko Resendiz MD [address] [address] PCP - General Internal Medicine 01/11/14 01/29/14 Carlie Mac MD [address] [place] [address] PCP - General Pediatrics 01/30/14 07/17/15 Angella Mendieta MD [address] [place] [address] PCP - General Family Practice 07/18/15 09/11/15 Julito Banuelos MD [address] [place] [address] PCP - General Family Practice 09/12/15 09/23/21 Julito Banuelos MD [address] [place] [address] PCP - Assigned PCP 02/17/16 12/28/18 Vika Kevin APRN RESOURCE SPECIALIST TEACHER [address] [place] [address] PCP - General Nurse Practitioner - Family 09/24/21 03/05/22 Vika Kevin APRN RESOURCE SPECIALIST TEACHER [address] [place] [address] PCP - General Nurse Practitioner - Family 03/18/22 06/18/22 Vika Kevin APRN RESOURCE SPECIALIST TEACHER [address] [place] [address] PCP - General Nurse Practitioner - Family 07/24/22 Julito Banuelos MD [address] [place] [address] Assigned PCP 02/17/16 07/21/[address] [place] [address] Orthopedics Pediatric Physician Dietitian, Registered 04/14/19 Mary Kay Jones [facility] Pharmacist 08/01/19 04/20/20 Susannah Blankenship [facility] [address] [place] [address] [address] [place] [address] Pharmacist Pharmacist 08/08/19 04/15/21 Carolyn Huynh [facility] [address] [place] [address] Pharmacist Pharmacist 06/25/20 04/15/21 Vika Kevin APRN RESOURCE SPECIALIST TEACHER [address] [place], [place] [address] Assigned PCP 07/22/20 11/16/24 Marilyn Willard MD [address] [facility] [address] [place], [place] [id number] Assigned Surgical Provider 08/17/20 08/16/24 Carie Varela DO [address] [place] [address] Assigned Heart and Vascular Provider 08/17/20 01/19/21 Maylin May NP [address] [place], [place] [id number] Assigned Pediatric Specialist Provider 12/16/20 06/13/22 Marisa Rodrigues, RN Clinic City Engineer 01/15/21 02/26/21 Vilma Long MD [address] [place] [address] Assigned Heart and Vascular Provider 01/20/21 07/20/21 Yasmeen Pendleton [facility] [address] [place], [place] [phone] Pharmacist Pharmacist 06/04/21 01/15/22 Cole George LISW Lead City Engineer 06/13/21 10/07/21 Fletcher Up Community Health Worker 06/13/21 09/12/21 Bautista Casey MD [address] [place] [address] Assigned Heart and Vascular Provider 07/21/21 01/16/23 Jasmyn Oliver CHW Community Health Worker 09/13/21 10/07/21 Yasmeen Pendleton [facility] [address] [place], [place] [address] Assigned MTM Pharmacist 03/22/22 01/02/23 documented as of this encounter
--- OUTSIDE RECORDS SUMMARY | 2024-12-16 22:25 | XMS_ITS | Encounter Summary ---
Author Organization [place] Address [address] [facility] [place] [address] Care Team Providers Care Tribal Judge Name Role Phone Andrew Lu MD Primary Care Provider [phone] Niko Resendiz MD Primary Care Provider Carlie Mac MD Primary Care Provide r Angella Mendieta MD Primary Care Provider Julito Banuelos MD Primary Care Provider [phone] Julito Banuelos MD Unavailable Julito Banuelos MD Unavailable Aleshia Henriquez RD Unavailable Unavailable Mary Kay Jones [facility] Unavailable Unavailable Susannah Blankenship [facility] Unavailable [phone] Carolyn Huynh [facility] Unavailable [phone] Vika Kevin APRN PROJECT DEVELOPMENT LEADER Unavailable + Marilyn Willard MD Unavailable [phone] Carie Varela DO Unavailable [phone] Maylin May NP Unavailable [phone] Marisa Rodrigues RN Unavailable Unavailable Vilma Long MD Unavailable + [phone] Yasmeen Pendleton [facility] Unavailable + [phone] Cole George Unavailable Fletcher Russell Unavailable Unavailable Bautista Casey MD Unavailable [phone] DemetriusJasmyn wright [facility] Unavailable [phone] Vika [facility] Primary Care Prov ider Vika Kevin APRN [facility] Primary Care Prov ider Yasmeen Pendleton [facility] Unavailable [phone] Vika Kevin [facility] Primary Care Prov ider Reason for Visit * Reason Onset Date Comments UTI 08/24/2013 Encounter Details Date Type Department Care Team (Late st Contact Info) Description 08/24/2013 [facility] Medical Advice [address] [phone] Andrew Lu MD XXX RETIRED XXX [address] [place] [phone] UTI Social History Tobacco Use Types Packs/Day Years Used Date Smoking Tobacco: Former Cigarettes 0.3 15 0 10/26/1961 - 10/26/1976 Smokeless Tobacco: Never Alcohol Use Standard Drinks/Week Comments Yes 0 (1 standard drink = 0.6 oz pur e alcohol) 1-2 glasses of wine weekly Comments No Sex and Gender Information Value Date Recorded Sex Assigned at Not on file Legal 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 ANALYTICS DIRECTOR Gender Identity Not on file Sexual Orientation Not on file Occupation Industry Job Start Date Job End Date Not on file Not on file Not on file Not on file documented as of this encounter Plan of Treatment Not on file documented as of this encounter Visit Diagnoses Diagnosis UTI (urinary tract infection)- Primary Urinary tract infection, site not specified documented in this encounter Additional Health Concerns Infection Onset Date Last Indicated Resolved Time Rule Out COVID-19 07/25/2020 07/25/2020 07/26/2020 3:02 PM CDT Rule Out COVID-19 12/04/2020 12/04/2020 12/05/2020 6:04 PM ANALYTICS DIRECTOR documented as of this encounter Care Teams Tribal Judge Relationship Specialty Start Date End Date Andrew Lu MD XXX RETIRED XXX [address] [place] [phone] PCP - General 12/10/01 01/10/14 Niko Resendiz MD [address] [place] [address] PCP - General Internal Medicine 01/11/14 01/29/14 Carlie Mac MD [address] [place] [address] PCP - General Pediatrics 01/30/14 07/17/15 Angella Mendieta MD [address] [place] [address] PCP - General Family Practice 07/18/15 09/11/15 Julito Banuelos MD [address] [place] [address] PCP - General Family Practice 09/12/15 09/23/21 Julito Banuelos MD [address] [place] [address] PCP - Assigned PCP 02/17/16 12/28/18 Vika Kevin APRN PROJECT DEVELOPMENT LEADER [address] [place] [address] PCP - General Nurse Practitioner - Family 09/24/21 03/05/22 Vika Kevin APRN PROJECT DEVELOPMENT LEADER [address] [place] [address] PCP - General Nurse Practitioner - Family 03/18/22 06/18/22 Vika Kevin APRN PROJECT DEVELOPMENT LEADER [address] [place] [address] [phone] PCP - General Nurse Practitioner - Family 07/24/22 Julito Banuelos MD [address] [place] [id number] Assigned PCP 02/17/16 07/21/[address] [place] [address] Hospice Fellow Dietitian, Registered 04/14/19 Mary Kay Jones, [facility] Pharmacist 08/01/19 04/20/20 Susannah Blankenship, [facility] [address] [place] [address] [address] [place], [place] [address] Pharmacist Pharmacist 08/08/19 04/15/21 Carolyn Huynh, [facility] [address] [place], [place] [phone] Pharmacist Pharmacist 06/25/20 04/15/21 Vika Kevin APRN PROJECT DEVELOPMENT LEADER [address] [place] [address] [phone] Assigned PCP 07/22/20 11/16/24 Marilyn Willard MD [address] [place] [address] [address] [place], [place] [id number] Assigned Surgical Provider 08/17/20 08/16/24 Carie Varela DO [address] [place] [address] Assigned Heart and Vascular Provider 08/17/20 01/19/21 Maylin May NP [address] [place] [address] Assigned Pediatric Specialist Provider 12/16/20 06/13/22 Marisa Rodrigues, RN Clinic Account Development Manager 01/15/21 02/26/21 Vilma Long MD [address] [place] [address] Assigned Heart and Vascular Provider 01/20/21 07/20/21 Yasmeen Pendleton [facility] [address] [place] [phone] Pharmacist Pharmacist 06/04/21 01/15/22 Cole George LISW Lead Account Development Manager 06/13/21 10/07/21 Fletcher Up Community Health Worker 06/13/21 09/12/21 Bautista Casey MD [address] [place] [address] Assigned Heart and Vascular Provider 07/21/21 01/16/23 Jasmyn Oliver CHW Community Health Worker 09/13/21 10/07/21 Yasmeen Pendleton [facility] [address] [place] [phone] Assigned MTM Pharmacist 03/22/22 01/02/23 documented as of this encounter
--- OUTSIDE RECORDS SUMMARY | 2024-12-16 22:25 | XMS_ITS | Encounter Summary ---
Author Organization [place] Address [address] [facility] [place] [address] Care Team Providers Care Iron Worker Apprentice Name Role Phone Julito Banuelos MD Primary Care Provider [phone] Julito Banuelos MD Unavailable Aleshia Henriquez RD Unavailable Unavailable Susannah Blankenship [facility] Unavailable [phone] Carolyn Huyhn [facility] Unavailable [phone] Vika Kevin APRN LEAD NET SOFTWARE DEVELOPER Unavailable + Marilyn Willard MD Unavailable [phone] Carie Varela DO Unavailable [phone] Maylin May NP Unavailable [phone] Marisa Hernandez RN Unavailable Unavailable Vilma Long MD Unavailable + [phone] Yasmeen Pendleton [facility] Unavailable Cole George Unavailable Fletcher Russell Unavailable Unavailable Bautista Casey MD Unavailable [phone] Jasmyn Oliver Unavailable [phone] Vika Kevin APRN LEAD NET SOFTWARE DEVELOPER Primary Care Prov ider Vika Kevin APRN [facility] Primary Care Prov ider Yasmeen Pendleton [facility] Unavailable + [phone] Vika Kevin APRN [facility] Primary Care [facility] ider Reason for Visit * Reason Comments Medication Refill Encounter Details Date Type Department Care Team (Late st Contact Info) Description 07/03/[address] [address] [place] [address] [place] [address] Medication Refill Social History Tobacco Use [...] on file Legal 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 REINFORCING STEEL ERECTOR Gender Identity Not on file Sexual Orientation Not on file Occupation Industry Job Start Date Job End Date Not on file Not on file Not on file Not on file COVID-19 Exposure Response Date Recorded In the last month, have you been in contact with someone who was confirmed or suspected to have Coronavirus / COVID-19? No / Unsure 07/06/2020 2:39 PM CDT documented as of this encounter Miscellaneous Notes * Telephone Encounter - Leslye Steiner RN - 07/04/2020 2:16 PM CDT Refill per RN protocol Leslye Steiner RN, BSN [place] Triage documented in this encounter Plan of Treatment Not on file documented as of this encounter Visit Diagnoses Diagnosis Gastroesophageal reflux disease without esophagitis Esophageal reflux documented in this encounter Additional Health Concerns Infection Onset Date Last Indicated Resolved Time Rule Out COVID-19 07/25/2020 07/25/2020 07/26/2020 3:02 PM CDT Rule Out COVID-19 12/04/2020 12/04/2020 12/05/2020 6:04 PM REINFORCING STEEL ERECTOR Assessment Noted Time PHQ-9 Depression Total Score: 12 06/19/ 020 3:35 PM CDT documented as of this encounter Care Teams Iron Worker Apprentice Relationship Specialty Start Date End Date Julito Banuelos MD [address] [place] [address] PCP - General Family Practice 09/12/15 09/23/21 Vika Kevin APRN LEAD NET SOFTWARE DEVELOPER [address] [place] [address] 31750 PCP - General Nurse Practitioner - Family 09/24/21 03/05/22 Vika Kevin APRN LEAD NET SOFTWARE DEVELOPER [address] [place] [address] 25031 PCP - General Nurse Practitioner - Family 03/18/22 06/18/22 Vika Kevin APRN LEAD NET SOFTWARE DEVELOPER [address] [place] [address] 97583 PCP - General Nurse Practitioner - Family 07/24/22 Julito Banuelos MD [address] [place] [address] 12774 Assigned PCP 02/17/16 07/21/[address] [place] [address] 99287 Engineering Design Supervisor Dietitian, Registered 04/14/19 Susannah Blankenship, [facility] [address] [place] [address] [address] [place] [address] Pharmacist Pharmacist 08/08/19 04/15/21 Carolyn Huynh [facility] [address] [place], [place] [address] Pharmacist Pharmacist 06/25/20 04/15/21 Vika Kevin APRN LEAD NET SOFTWARE DEVELOPER [address] [place], [place] 6[address]22 Assigned PCP 07/22/20 11/16/24 Marilyn Willard MD [address] [facility] [address] [place], [place] [address] Assigned Surgical Provider 08/17/20 08/16/24 Carie Varela DO [address] [place] [address] Assigned Heart and Vascular Provider 08/17/20 01/19/21 Maylin May NP [address] [place], [place] [id number] Assigned Pediatric Specialist Provider 12/16/20 06/13/22 Marisa Rodrigues, RN Clinic Senior Informatica Etl Developer 01/15/21 02/26/21 Vilma Long MD [address] [place] [address] Assigned Heart and Vascular Provider 01/20/21 07/20/21 Yasmeen Pendleton [facility] [address] [place], [place] [address] Pharmacist Pharmacist 06/04/21 01/15/22 Cole George LISW Lead Senior Informatica Etl Developer 06/13/21 10/07/21 Fletcher Up Community Health Worker 06/13/21 09/12/21 Bautista Casey MD [address] [place] [address] Assigned Heart and Vascular Provider 07/21/21 01/16/23 Jasmyn Oliver CHW Community Health Worker 09/13/21 10/07/21 Yasmeen Pendleton [facility] [address] [place] [address] Assigned MTM Pharmacist 03/22/22 01/02/23 documented as of this encounter
--- OUTSIDE RECORDS SUMMARY | 2024-12-16 22:25 | XMS_ITS | Encounter Summary ---
Author Organization [place] Address [address] [facility] [place] [address] Care Team Providers Care Livestock Farm Workers Name Role Phone Niko Resendiz MD Primary Care Provider Carlie Mac MD Primary Care Provide r Angella Mendieta MD Primary Care Provider Julito Banuelos MD Primary Care Provider Julito Banuelos MD Unavailable Julito Banuelos MD Unavailable Aleshia Henriquez RD Unavailable Unavailable Mary Kay Jones RP Unavailable Unavailable Susannah Blankenship [facility] Unavailable [phone] Carolyn Huynh [facility] Unavailable [phone] Vika Kevin POWDERER CONSERVATION OR HERITAGE ARCHITECT Unavailable + Marilyn Willard MD Unavailable Carie Varela DO Unavailable [phone] Maylin May NP Unavailable [phone] Marisa Hernandez RN Unavailable Unavailable Vilma Long MD Unavailable + [phone] Yasmeen Pendleton [facility] Unavailable Cole George Unavailable Unavai jonathan Up Fletcher Unavailable Unavailable Ip, Bautista Bell MD Unavailable [phone] TatyanaJasmyn anand W Unavailable [phone] Vika Kevin POWDERER [facility] Primary Care Prov ider Vika Kevin [facility] Primary Care Prov ider Yasmeen Pendleton [facility] Unavailable + [phone] Vika Kevin [facility] Primary Care Prov ider Reason for Visit * Reason Onset Date Comments Other 01/28/2014 PCP change Encounter Details Date Type Department Care Team (Late st Contact Info) Description 01/28/2014 [facility] [address] [address] Carlie Mac MD [address] [place] [address] Other (PCP change ) Social History Tobacco Use Types Packs/Day [...] on file Legal 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 SCREW 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 SINGLE SPINDLE Gender Identity Not on file Sexual Orientation Not on file Occupation Industry Job Start Date Job End Date Not on file Not on file Not on file Not on file documented as of this encounter Miscellaneous Notes * Telephone Encounter - Rosalina Herrera RN - 01/30/2014 7:29 AM CDT Routing to Dr. Mac to update. Rosalina Herrera RN documented in this encounter Plan of Treatment Not on file documented as of this encounter Visit Diagnoses Not on filedocumented in this encounter Additional Health Concerns Infection Onset Date Last Indicated Resolved Time Rule Out COVID-19 07/25/2020 07/25/2020 07/26/2020 3:02 PM CDT Rule Out COVID-19 12/04/2020 12/04/2020 12/05/2020 6:04 PM SCREW 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 SINGLE SPINDLE documented as of this encounter Care Teams Livestock Farm Workers Relationship Specialty Start Date End Date Niko Resendiz MD [address] [place] [address] PCP - General Internal Medicine 01/11/14 01/29/14 Carlie Mac MD [address] [place] [address] PCP - General Pediatrics 01/30/14 07/17/15 Angella Mendieta MD [address] [place] [address] PCP - General Family Practice 07/18/15 09/11/15 Julito Banuelos MD [address] [place] [address]474 PCP - General Family Practice 09/12/15 09/23/21 Julito Banuelos MD [address] [place] [address] 97395 PCP - Assigned PCP 02/17/16 12/28/18 Vika Kevin APRN CONSERVATION OR HERITAGE ARCHITECT [address] [place] [address] PCP - General Nurse Practitioner - Family 09/24/21 03/05/22 Vika Kevin APRN CONSERVATION OR HERITAGE ARCHITECT [address] [place] [address] PCP - General Nurse Practitioner - Family 03/18/22 06/18/22 Vika Kevin, JAIME CONSERVATION OR HERITAGE ARCHITECT [address] [place] [address] 329422 PCP - General Nurse Practitioner - Family 07/24/22 Julito Banuelos MD [address] [place] [address] 565642 Assigned PCP 02/17/16 07/21/[address] [place] [address] Railroad Auditor Dietitian, Registered 04/14/19 Mary Kay Jones, [facility] Pharmacist 08/01/19 04/20/20 Susannah Blankenship, [facility] [address] [facility] [address] [place], [place] [address] Pharmacist Pharmacist 08/08/19 04/15/21 [facility] [address] [place], [place] [address] Pharmacist Pharmacist 06/25/20 04/15/21 Vika Kevin, JAIME CONSERVATION OR HERITAGE ARCHITECT [address] [place] [address] 996482 Assigned PCP 07/22/20 11/16/24 Marilyn Willard MD 420 [facility] 394 [place], [place] [address] Assigned Surgical Provider 08/17/20 08/16/24 Carie Varela DO [address] [place] [address] Assigned Heart and Vascular Provider 08/17/20 01/19/21 Maylin May NP [address] [place] [address] Assigned Pediatric Specialist Provider 12/16/20 06/13/22 Marisa Rodrigues, RN Clinic Gear Hobber 01/15/21 02/26/21 Vilma Long MD [address] [place] [address] Assigned Heart and Vascular Provider 01/20/21 07/20/21 [facility] [address] [place] [address] Pharmacist Pharmacist 06/04/21 01/15/22 Cole George LISW Lead Gear Hobber 06/13/21 10/07/21 Fletcher Up Community Health Worker 06/13/21 09/12/21 Bautista Casey MD [address] [place] [address] Assigned Heart and Vascular Provider 07/21/21 01/16/23 Jasmyn Oliver CHW Community Health Worker 09/13/21 10/07/21 [facility] [address] [place] [address] Assigned MTM Pharmacist 03/22/22 01/02/23 documented as of this encounter
--- OUTSIDE RECORDS SUMMARY | 2024-12-16 22:25 | XMS_ITS | Encounter Summary ---
Author Organization [place] Address [address] [facility] [place] [address] Care Team Providers Care Elevator Operator Name Role Phone Julito Banuelos MD Primary Care Provider [phone] Unavailable Unavailable Susannah Blankenship [facility] Unavailable [phone] Carolyn Huynh [facility] Unavailable [phone] Vika Kevin APRN [facility] Unavailable + Marilyn Willard MD Unavailable [phone] Carie Varela DO Unavailable [phone] Maylin May NP Unavailable [phone] Marisa Hernandez RN Unavailable Unavailable Vilma Long MD Unavailable + [phone] Yasmeen Pendleton [facility] Unavailable Cole George Unavailable Fletcher Russell Unavailable Unavailable Bautista Casey MD Unavailable [phone] Jasmyn Oliver Unavailable [phone] Vika Kevin APRN [facility] Primary Care Prov ider Vika Kevin APRN [facility] Primary Care Prov ider Yasmeen Pendleton [facility] Unavailable [phone] Vika Kevin APRN AIDS COUNSELOR Primary Care Prov ider Encounter Details Date Type Department Care Team (Late st Contact Info) Description 12/10/2020 MyC Medical Advice [facility] [address] [facility] [address] [place] [address] [facility] [address] [place] [address] Social History Tobacco Use Types [...] on file Legal 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 SPED TEACHER Gender Identity Not on file Sexual Orientation Not on file Occupation Industry Job Start Date Job End Date Not on file Not on file Not on file Not on file COVID-19 Exposure Response Date Recorded In the last month, have you been in contact with someone who was confirmed or suspected to have Coronavirus / COVID-19? No / Unsure 12/11/2020 3:56 PM SPED TEACHER documented as of this encounter Plan of Treatment Not on file documented as of this encounter Visit Diagnoses Not on filedocumented in this encounter Additional Health Concerns Assessment Noted Time PHQ-9 Depression Total Score: 10 020 9:30 AM SPED TEACHER documented as of this encounter Care Teams Elevator Operator Relationship Specialty Start Date End Date Julito Banuelos MD [address] [place] [address]693 PCP - General Family Practice 09/12/15 09/23/21 Vika Kevin APRN AIDS COUNSELOR [address] [place] [address] 16442 PCP - General Nurse Practitioner - Family 09/24/21 03/05/22 Vika Kevin APRN AIDS COUNSELOR [address] [place] [address] 24038 PCP - General Nurse Practitioner - Family 03/18/22 06/18/22 Vika Kevin, JAIME AIDS COUNSELOR [address] [place] [address]09 PCP - General Nurse Practitioner - Family 07/24/[address] [place] [address] Supervisor [employer] Dietitian, Registered 04/14/19 Susannah Blankenship, [facility] [address] [place] [address] 8[address] [place] [address] Pharmacist Pharmacist 08/08/19 04/15/21 Carolyn Huynh [facility] [address] [place] [address] Pharmacist Pharmacist 06/25/20 04/15/21 Vika Kevin, JAIME AIDS COUNSELOR [address] [place] [address] Assigned PCP 07/22/20 11/16/24 Marilyn Willard MD [address] [place] [address] [address] [place], [place] [address] Assigned Surgical Provider 08/17/20 08/16/24 Carie Varela DO [address] [place] [address] Assigned Heart and Vascular Provider 08/17/20 01/19/21 Maylin May NP [address] [place] [address] Assigned Pediatric Specialist Provider 12/16/20 06/13/22 Marisa Rodrigues, RN Clinic Recooperer 01/15/21 02/26/21 Vilma Long MD [address] [place] [address] Assigned Heart and Vascular Provider 01/20/21 07/20/21 [facility] [address] [place] [address] 516015 Pharmacist Pharmacist 06/04/21 01/15/22 Cole George LISW Lead Recooperer 06/13/21 10/07/21 Fletcher Up Community Health Worker 06/13/21 09/12/21 Bautista Casey MD [address] [place] [address] Assigned Heart and Vascular Provider 07/21/21 01/16/23 Jasmyn Oliver CHW Community Health Worker 09/13/21 10/07/21 Yasmeen Pendleton [facility] [address] [place] [address] [phone] Assigned MTM Pharmacist 03/22/22 01/02/23 documented as of this encounter
--- OUTSIDE RECORDS SUMMARY | 2024-12-16 22:25 | XMS_ITS | Encounter Summary ---
Author Organization [place] Address [address] [facility] [place] [address] Care Team Providers Care Insulation Board Coater Operator Name Role Phone Andrew Lu MD Primary Care Provider [phone] Niko Resendiz MD Primary Care Provider Carlie Mac MD Primary Care Provide r Angella Mendieta MD Primary Care Provider Julito Banuelos MD Primary Care Provider [phone] Julito Banuelos MD Unavailable Julito Banuelos MD Unavailable Aleshia Henriquez RD Unavailable Unavailable Mary Kay Jones [facility] Unavailable Unavailable Susannah Blankenship [facility] Unavailable [phone] Carolyn Huynh [facility] Unavailable [phone] Vika Kevin APRN TIER TRUCK DRIVER Unavailable + Marilyn Willard MD Unavailable [phone] Carie Varela DO Unavailable [phone] Maylin May NP Unavailable [phone] Marisa Rodrigues RN Unavailable Unavailable Vilma Long MD Unavailable + [phone] Yasmeen Pendleton [facility] Unavailable [phone] Cole George Unavailable Fletcher Russell Unavailable Unavailable Bautista Casey MD Unavailable [phone] AnnyJasmyn tracey [facility] Unavailable +[phone] Vika Kevin APRN [facility] Primary Care Prov ider Vika Kevin APRN [facility] Primary Care Prov ider Yasmeen Pendleton [facility] Unavailable [phone] V[facility] Primary Care Prov ider Encounter Details Date Type Department Care Team (Late st Contact Info) Description 01/03/2014 MyC Medical Advice [address] [address] Niko Resendiz MD [address] [place] [address] [phone] Social History Tobacco Use Types Packs/Day Years Used Date Smoking Tobacco: Former Cigarettes 0.3 15 0 10/26/1961 - 10/26/1976 Smokeless Tobacco: Never Alcohol Use Standard Drinks/Week Comments Yes 0 (1 standard drink = 0.6 oz pur e alcohol) 1-2 glasses of wine weekly Comments No Sex and Gender Information Value Date Recorded Sex Assigned at Not on file Legal 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 GAS METER INSTALLER Gender Identity Not on file Sexual [...] Out COVID-19 12/04/2020 12/04/2020 12/05/2020 6:04 PM GAS METER INSTALLER documented as of this encounter Care Teams Insulation Board Coater Operator Relationship Specialty Start Date End Date Andrew Lu MD XXX RETIRED XXX [address] [place] [phone] PCP - General 12/10/01 01/10/14 Niko Resendiz MD [address] [place] [address] PCP - General Internal Medicine 01/11/14 01/29/14 Carlie Mac MD [address] [place] [address] PCP - General Pediatrics 01/30/14 07/17/15 Angella Mendieta MD [address] [place] [address] PCP - General Family Practice 07/18/15 09/11/15 Julito Banuelos MD [address] [place] [address] PCP - General Family Practice 09/12/15 09/23/21 Julito Banuelos MD [address] [place] [address] PCP - Assigned PCP 02/17/16 12/28/18 Vika Kevin APRN TIER TRUCK DRIVER [address] [place] [address] PCP - General Nurse Practitioner - Family 09/24/21 03/05/22 Vika Kevin APRN TIER TRUCK DRIVER [address] [place] [address] PCP - General Nurse Practitioner - Family 03/18/22 06/18/22 Vika Kevin APRN TIER TRUCK DRIVER [address] [place] [address] 537602 PCP - General Nurse Practitioner - Family 07/24/22 Julito Banuelos MD [address] [place] [address] 056372 Assigned PCP 02/17/16 07/21/[address] [place] [address] Mixer And Scaler Dietitian, Registered 04/14/19 [facility] Pharmacist 08/01/19 04/20/20 Susannah Blankenship, [facility] [address] [place] [address] 8[address] [place], [place] 6766[address] Pharmacist Pharmacist 08/08/19 04/15/21 Carolyn Huynh, [facility] [address] [place] [address] Pharmacist Pharmacist 06/25/20 04/15/21 Vika Kevin APRN TIER TRUCK DRIVER [address] [place] [address] 564802 Assigned PCP 07/22/20 11/16/24 Marilyn Willard MD [address] [place] [address] [address] [place], [place] 137835 Assigned Surgical Provider 08/17/20 08/16/24 Carie Varela DO [address] [place] [address] Assigned Heart and Vascular Provider 08/17/20 01/19/21 Maylin May NP [address] [place] [address] Assigned Pediatric Specialist Provider 12/16/20 06/13/22 Marisa Rodrigues, RN Clinic Motor Adjuster 01/15/21 02/26/21 Vilma Long MD [address] [place] [address] Assigned Heart and Vascular Provider 01/20/21 07/20/21 Yasmeen Pendleton [facility] [address] [place] [address] Pharmacist Pharmacist 06/04/21 01/15/22 Cole George LISW Lead Motor Adjuster 06/13/21 10/07/21 Fletcher Up Community Health Worker 06/13/21 09/12/21 Bautista Casey MD [address] [place] [address] Assigned Heart and Vascular Provider 07/21/21 01/16/23 Jasmyn Oliver CHW Community Health Worker 09/13/21 10/07/21 Yasmeen Pendleton [facility] [address] [place] [address] Assigned MTM Pharmacist 03/22/22 01/02/23 documented as of this encounter
--- OUTSIDE RECORDS SUMMARY | 2024-12-16 22:25 | XMS_ITS | Encounter Summary ---
Author Organization [place] Address [address] [facility] [place] [address] Care Team Providers Care Community Leader Name Role Phone Cortez Lu MD Primary Care Provider [phone] Niko Resendiz MD Primary Care Provider Carlie Mac MD Primary Care Provide r Angella Mendieta MD Primary Care Provider Julito Banuelos MD Primary Care Provider [phone] Julito Banuelos MD Unavailable Julito Banuelos MD Unavailable Aleshia Henriquez RD Unavailable Unavailable Mary Kay Jones [facility] Unavailable Unavailable Susannah Blankenship [facility] Unavailable [phone] Carolyn Huynh [facility] Unavailable [phone] Vika Kevin APRN REGIONAL FLATBED TRUCK DRIVER Unavailable + Marilyn Willard MD Unavailable [phone] Carie Varela DO Unavailable [phone] Maylin May NP Unavailable [phone] Marisa Rodrigues RN Unavailable Unavailable Vilma Long MD Unavailable + [phone] Yasmeen Pendleton [facility] Unavailable + [phone] Cole George Unavailable Fletcher Russell Unavailable Unavailable Bautista MD Unavailable [phone] Jasmyn Oliver [facility] Unavailable [phone] Vika Kevin APRN [facility] Primary Care Prov ider Vika Kevin APRN [facility] Primary Care Prov ider Yasmeen Pendleton [facility] Unavailable + [phone] Vika [facility] Primary Care Prov ider Encounter Details Date Type Department Care Team (Late st Contact Info) Description 09/16/2013 Office Visit-[facility] Heart [address] [place] [address] Reji Davis MD [address] [place] [address] Social History Tobacco Use Types Packs/Day Years Used Date Smoking Tobacco: Former Cigarettes 0.3 15 0 10/26/1961 - 10/26/1976 Smokeless Tobacco: Never Alcohol Use Standard Drinks/Week Comments Yes 0 (1 standard drink = 0.6 oz pur e alcohol) 1-2 glasses of wine weekly Comments No Sex and Gender Information Value Date Recorded Sex Assigned at Not on file Legal 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 BENEFITS MANAGER Gender Identity Not on file Sexual Orientation Not on file Occupation Industry Job Start Date Job End Date Not on file Not on file Not on file Not on file documented as of this encounter Progress Notes * Reji Davis MD - 09/20/2013 12:28 PM CST Progress Note Created by: Reji Davis MD DATE: 09/16/2013 MARIALUSIA COSBY DATE OF : 1940 AGE: [age] years old Referring Physician: CORTEZ LU Referring Clinic: [facility] CURRENT DIAGNOSES 1. Diabetes Ktlkkowz-Vhk-Eutchrk Dependent, 250.00 2. - Hyperlipidemia mixed, 272.2 [...] daily 12. Nasacort AQ 55 mcg Aerosol, [place], Take as Directed 13. Plavix 75 mg [...] Aerosol Inhaler, Take as Directed CHIEF COMPLAINTS 6 month follow up HISTORY OF PRESENT ILLNESS Marialuisa is an extremely pleasant 73-year-old female with a history of coronary artery disease, status post PCI to the proximal and mid circumflex artery in December,, while at [facility] in [place], [place]. This was following a presentation for a xet-VP-hixpbtd elevation WI. Since I saw the patient last she was seen in the [facility] ER with overall generalized weakness and felt to be potentially dehydrated in the setting of an infection. She has otherwise done well from a cardiovascular standpoint and has had no recurrent episodes of fatigue. She has had no recurrent anginal symptoms, which are chest discomfort and chest heaviness. Marialuisa plans to travel back to [place] for three months after the holidays. She has questions as to whether she can exercise given her coronary artery disease. Finally, I talked to Marialuisa about this previously, that her dredging inspector in [place] had recommended that she remain on lifelong Plavix. She seems somewhat adamant about continuing this recommendation. PAST HISTORY Past Medical Illnesses: asthma, HTN, hypothyoidism, diabetes, hyperlipidemia, major depression, anxiety, hypertension, Restless Leg syndrome Past Cardiac Illnesses: CAD, s/p WI Surgeries/Procedures - General: hysterectomy Cardiac/Vasc Procedures-Invasive: left heart cath 12/2012 ([place]) Cardiology Procedures-NonInvasive: echocardiogram Jun 2007, myocardial perfusion (Nuc) Jun 2007, echo 12/2012 ([place]), stress echo February 2013 Cardiac Cath Results: 12/2012 [place] [facility] NELIA to the mid and prox [...] - lives with and been living in [place] for 3 months; Place of - [place]; REVIEW OF SYSTEMS GENERAL frequent uti's otherwise well INTEGUMENTARY denies any change in hair or nails, rashes, or skin lesions. EYES wears eye glasses/contact lenses EARS, NOSE, THROAT, MOUTH partial hearing loss left ear RESPIRATORY history of asthma, cough CARDIOVASCULAR edema, not good today. ?? need to take lasix again ABDOMINAL denies ulcer disease, hematochezia or melena. GENITOURINARY-FEMALE frequency, nocturia, under urologists care, urethral dialations every 3 weeks MUSCULOSKELETAL chronic back pain NEUROLOGICAL denies any history of recurrent strokes, headaches, TIA, or seizure disorder. PSYCHIATRIC denies any history of depression, substance abuse or change in cognitive functions. ENDOCRINE hypothyroidism, non-insulin dependent diabetes mellitus HEMATOLOGICAL/IMMUNOLOGIC seasonal allergies, takes allergy shots, allergies get worse in [place] but they can get bad in [place] too PHYSICAL EXAMINATION VITAL SIGNS: Blood Pressure: 112/64Sitting, Right arm, large cuff Pulse- 72.00/min. Weight- 222.00 lbs. Height- 67 BMI Measurement: 34 CONSTITUTIONAL [...] edema NEUROLOGICAL affect appropriate MEDICATIONS UPDATED/STARTED TODAY: IMPRESSIONS/PLAN IMPRESSION: 1. Coronary artery disease. 2. Status post PCI to the proximal and mid left circumflex artery following presentation for a lex-JI-vbnbady elevation WI. 3. Recent evaluation for fatigue and weakness, likely related to an infection and dehydration. 4. Hypertension. 5. Hyperlipidemia. PLAN: 1. I did discuss continued clopidogrel therapy with Marialuisa and at this point she has elected to remain on lifelong dual antiplatelet therapy. As long as she does not have any recurrent bleeding issues I think this is reasonable. 2. Given the new recommendations for statins in patients with known atherosclerotic disease Marialuisa should typically be placed on atorvastatin or rosuvastatin at higher dose. However, she has been tolerating her pravastatin 40 mg q.d. well and has I believe not tolerated higher doses of more potent statins in the past. At this point I have elected to continue her pravastatin 40 mg q.d. unchanged. 3. I will plan to see Marialuisa back in routine clinical followup in six months. Thank you for allowing me to participate in the care of your patient. If you have any questions, please do not hesitate to contact me. TODAYS ORDERS 1. Return Visit 6 months Reji Davis MD documented in this encounter Plan of Treatment Not on file documented as of this encounter Visit Diagnoses Not on filedocumented in this encounter Additional Health Concerns Infection Onset Date Last Indicated Resolved Time Rule Out COVID-19 07/25/2020 07/25/2020 07/26/2020 3:02 PM CDT Rule Out COVID-19 12/04/2020 12/04/2020 12/05/2020 6:04 PM BENEFITS MANAGER documented as of this encounter Care Teams Community Leader Relationship Specialty Start Date End Date Cortez Lu MD XXX RETIRED XXX [address] [place] [address] [phone] PCP - General 12/10/01 01/10/14 Niko Resendiz MD [address] [place] [address]47 PCP - General Internal Medicine 01/11/14 01/29/14 Carlie Mac MD [address] [place] [address] PCP - General Pediatrics 01/30/14 07/17/15 Angella Mendieta MD [address] [place] [address] [id number] PCP - General Family Practice 07/18/15 09/11/15 Julito Banuelos MD [address] [place] [address] [phone] PCP - General Family Practice 09/12/15 09/23/21 Julito Banuelos MD [address] [place] [address] [id number] PCP - Assigned PCP 02/17/16 12/28/18 Vika Kevin APRN REGIONAL FLATBED TRUCK DRIVER [address] [place] [address]24 PCP - General Nurse Practitioner - Family 09/24/21 03/05/22 Vika Kevin APRN REGIONAL FLATBED TRUCK DRIVER [address] [place] [address] 91098 PCP - General Nurse Practitioner - Family 03/18/22 06/18/22 Vika Kevin APRN REGIONAL FLATBED TRUCK DRIVER [address] [place] [address] [id number] PCP - General Nurse Practitioner - Family 07/24/22 Julito Banuelos MD [address] [place] [address] [phone] Assigned PCP 02/17/16 07/21/[address] [place] [address] Edger Hand Dietitian, Registered 04/14/19 Mary Kay Jones, [facility] Pharmacist 08/01/19 04/20/20 [facility] [address] [place] [address] [address] [place], [place] [phone] Pharmacist Pharmacist 08/08/19 04/15/21 Carolyn Huynh [facility] [address] [place] [address] Pharmacist Pharmacist 06/25/20 04/15/21 Vika Kevin APRN CNP [address] [place] [address] [id number] Assigned PCP 07/22/20 11/16/24 Marilyn Willard MD [address] [place] [address] [address] [place], [place] 703135 Assigned Surgical Provider 08/17/20 08/16/24 Carie Varela DO [address] [place] [address] Assigned Heart and Vascular Provider 08/17/20 01/19/21 Maylin May NP [address] [place] [address] Assigned Pediatric Specialist Provider 12/16/20 06/13/22 Marisa Rodrigues, RN Clinic Senior Controller 01/15/21 02/26/21 Vilma Long MD [address] [place] [address] Assigned Heart and Vascular Provider 01/20/21 07/20/21 [facility] [address] [place], [place] [phone] Pharmacist Pharmacist 06/04/21 01/15/22 Cole George LISW Lead Senior Controller 06/13/21 10/07/21 Fletcher Up Community Health Worker 06/13/21 09/12/21 Bautista Casey MD [address] [place] [address] Assigned Heart and Vascular Provider 07/21/21 01/16/23 Jasmyn Oliver CHW Community Health Worker 09/13/21 10/07/21 [facility] [address] [place] [address] Assigned MTM Pharmacist 03/22/22 01/02/23 documented as of this encounter
--- OUTSIDE RECORDS SUMMARY | 2024-12-16 22:25 | XMS_ITS | Encounter Summary ---
Author Organization [place] Address [address] [facility] [place] [address] Care Team Providers Care Acls Nurse Name Role Phone Andrew Lu MD Primary Care Provider [phone] Niko Resendiz MD Primary Care Provider Carlie Mac MD Primary Care Provide r Angella Mendieta MD Primary Care Provider Julito Banuelos MD Primary Care Provider [phone] Julito Banuelos MD Unavailable Julito Banuelos MD Unavailable Aleshia Henriquez RD Unavailable Unavailable Mary Kay Jones [facility] Unavailable Unavailable Susannah Blankenship [facility] Unavailable [phone] Carolyn Huynh [facility] Unavailable [phone]IVE IN TELLER Unavailable + Marilyn Willard MD Unavailable [phone] Carie Varela DO Unavailable [phone] Maylin May NP Unavailable [phone] Marisa Rodrigues RN Unavailable Unavailable Vilma Long MD Unavailable + [phone] Yasmeen Pendleton [facility] Unavailable [phone] Cole George Unavailable Fletcher Russell Unavailable Unavailable Bautista Casey MD Unavailable [phone] DemetriusJasmyn wright [facility] Unavailable [phone] Vika Kevin APRN [facility] Primary Care Prov ider Vika Kevin APRN [facility] Primary Care Prov ider Yasmeen Pendleton [facility] Unavailable Vika Kevin [facility] Primary Care Prov ider Encounter Details Date Type Department Care Team (Latest Contact Info) Description 07/08/2013 Medical Correspondence [address] [phone] Andrew Lu MD XXX RETIRED XXX [address] [phone] [facility] 07/08/13 Social History Tobacco Use Types Packs/Day Years Used Date Smoking Tobacco: Former Cigarettes 0.3 15 0 10/26/1961 - 10/26/1976 Smokeless Tobacco: Never Alcohol Use Standard Drinks/Week Comments Yes 0 (1 standard drink = 0.6 oz pur e alcohol) 1-2 glasses of wine weekly Comments No Sex and Gender Information Value Date Recorded Sex Assigned at Not on file Legal 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 COLORING ROOM MAN Gender Identity Not on file Sexual Orientation [...] Out COVID-19 12/04/2020 12/04/2020 12/05/2020 6:04 PM COLORING ROOM MAN documented as of this encounter Care Teams Acls Nurse Relationship Specialty Start Date End Date Andrew Lu MD XXX RETIRED XXX [address] [place] [phone] PCP - General 12/10/01 01/10/14 Niko Resendiz MD [address] [place] [address]38 PCP - General Internal Medicine 01/11/14 01/29/14 Carlie Mac MD [address] [place] [address] PCP - General Pediatrics 01/30/14 07/17/15 Angella Mendieta MD [address] [place] [address] 216[address] PCP - General Family Practice 07/18/15 09/11/15 Julito Banuelos MD [address] [place] [address] 42[address] PCP - General Family Practice 09/12/15 09/23/21 Julito Banuelos MD [address] [place] [address] 61276 PCP - Assigned PCP 02/17/16 12/28/18 Vika Kevin APRN CNP [address] [place] [address] 7[address]99 PCP - General Nurse Practitioner - Family 09/24/21 03/05/[address]IVE IN TELLER [address] [place] [address] PCP - General Nurse Practitioner - Family 03/18/22 06/18/[address]IVE IN TELLER [address] [place] [address] 475[address] PCP - General Nurse Practitioner - Family 07/24/22 Julito Banuelos MD [address] [place] [address] [phone] Assigned PCP 02/17/16 07/21/[address] [place] [address] Vice President Of News Dietitian, Registered 04/14/19 Mary Kay Jones [facility] Pharmacist 08/01/19 04/20/20 Susannah Blankenship, [facility] [address] [place] [address] [address] [place], [place] [address] Pharmacist Pharmacist 08/08/19 04/15/21 Carolyn Huynh, [facility] [address] [place] [address] Pharmacist Pharmacist 06/25/20 04/15/21 Vika Kevin, JAIME DRIVE IN TELLER [address] [place] [address] 447882 Assigned PCP 07/22/20 11/16/24 Marilyn Willard MD [address] [facility] [address] [place], [place] [address] Assigned Surgical Provider 08/17/20 08/16/24 Carie Varela DO [address] [place] [address] Assigned Heart and Vascular Provider 08/17/20 01/19/21 Maylin May NP [address] [place] [address] Assigned Pediatric Specialist Provider 12/16/20 06/13/22 Marisa Rodrigues, RN Clinic Rack Puncher 01/15/21 02/26/21 Vilma Long MD [address] [place] [address] Assigned Heart and Vascular Provider 01/20/21 07/20/21 Yasmeen Pendleton [facility] [address] [place] [address] [phone] Pharmacist Pharmacist 06/04/21 01/15/22 Cole George LISW Lead Rack Puncher 06/13/21 10/07/21 Fletcher Up Community Health Worker 06/13/21 09/12/21 Bautista Casey MD [address] [place] [address] Assigned Heart and Vascular Provider 07/21/21 01/16/23 Jasmyn Oliver CHW Community Health Worker 09/13/21 10/07/21 Yasmeen Pendleton [facility] [address] [place] [address] Assigned MTM Pharmacist 03/22/22 01/02/23 documented as of this encounter
--- OUTSIDE RECORDS SUMMARY | 2024-12-16 22:25 | XMS_ITS | Encounter Summary ---
Author Organization [place] Address [address] [facility] [place] [address] Care Team Providers Care Gas Inspector Name Role Phone Niko Resendiz MD Primary Care Provider Carlie Mac MD Primary Care Provide r Angella Mendieta MD Primary Care Provider Julito Banuelos MD Primary Care Provider [phone] Julito Banuelos MD Unavailable Julito Banuelos MD Unavailable Aleshia Henriquez RD Unavailable Unavailable Mary Kay Jones RP Unavailable Unavailable Susannah Blankenship [facility] Unavailable [phone] Carolyn Huynh [facility] Unavailable [phone] Vika Kevin PRESS OPERATOR BUS VAN DRIVER Unavailable + Marilyn Willard MD Unavailable Carie Varela DO Unavailable [phone] Maylin May NP Unavailable [phone] Marisa Hernandez RN Unavailable Unavailable Vilma Long MD Unavailable + [phone] Yasmeen Pendleton [facility] Unavailable Cole George Unavailable Unavai jonathan Up Fletcher Unavailable Unavailable Ip, Bautista Bell MD Unavailable [phone] TatyanaJasmyn anand W Unavailable [phone] Vika Kevin PRESS OPERATOR [facility] Primary Care Prov ider Vika Kevin [facility] Primary Care Prov ider Yasmeen Pendleton [facility] Unavailable + [phone] Vika Kevin [facility] Primary Care Prov ider Reason for Visit * Reason Onset Date Comments Medication Question 01/28/2014 Update Encounter Details Date Type Department Care Team (Late st Contact Info) Description 01/28/2014 [facility] Medical Advice [address] [phone] Carlie Mac MD [address] [place] [address] Medication Question (Update ) Social History Tobacco Use Types Packs/Day [...] on file Legal 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 TAX SPECIALIST Gender Identity Not on file Sexual Orientation Not on file Occupation Industry Job Start Date Job End Date Not on file Not on file Not on file Not on file documented as of this encounter Miscellaneous Notes * Telephone Encounter - Rosalina Herrera RN - 01/30/2014 7:27 AM CDT Routing to Dr. Mac to update. Med list updated as well. Rosalina Herrera RN documented in this encounter Plan of Treatment Not on file documented as of this encounter Visit Diagnoses Not on filedocumented in this encounter Additional Health Concerns Infection Onset Date Last Indicated Resolved Time Rule Out COVID-19 07/25/2020 07/25/2020 07/26/2020 3:02 PM CDT Rule Out COVID-19 12/04/2020 12/04/2020 12/05/2020 6:04 PM TAX SPECIALIST documented as of this encounter Care Teams Gas Inspector Relationship Specialty Start Date End Date Niko Resendiz MD [address] [place] [address] PCP - General Internal Medicine 01/11/14 01/29/14 Carlie Mac MD [address] [place] [address] PCP - General Pediatrics 01/30/14 07/17/15 Angella Mendieta MD [address] [place] [address] PCP - General Family Practice 07/18/15 09/11/15 Julito Banuelos MD [address] [place] [address] PCP - General Family Practice 09/12/15 09/23/21 Julito Banuelos MD [address] [place] [address] 90442 PCP - Assigned PCP 02/17/16 12/28/18 Vika Kevin APRN BUS VAN DRIVER [address] [place] [address] PCP - General Nurse Practitioner - Family 09/24/21 03/05/22 Vika Kvein APRN BUS VAN DRIVER [address] [place] [address] PCP - General Nurse Practitioner - Family 03/18/22 06/18/22 Vika Kevin APRN BUS VAN DRIVER [address] [place] [address]55 PCP - General Nurse Practitioner - Family 07/24/22 Julito Banuelos MD [address] [place] [address] 686292 Assigned PCP 02/17/16 07/21/[address] [place] [address] Classroom Paraprofessional Dietitian, Registered 04/14/19 Mary Kay Jones, [facility] Pharmacist 08/01/19 04/20/20 Susannah Blankenship [facility] [address] [facility] [address] [place], [place] [address]29[address] Pharmacist Pharmacist 08/08/19 04/15/21 Carolyn Huynh, [facility] [address] [place], [place] [address] Pharmacist Pharmacist 06/25/20 04/15/21 Vika Kevin, JAIME BUS VAN DRIVER [address] [place] [address] [phone] Assigned PCP 07/22/20 11/16/24 Marilyn Willard MD [address] [facility] [address] [place], [place] [address]4745 Assigned Surgical Provider 08/17/20 08/16/24 Carie Varela DO [address] [place] [address] Assigned Heart and Vascular Provider 08/17/20 01/19/21 Maylin May NP [address] [place] [address] Assigned Pediatric Specialist Provider 12/16/20 06/13/22 Marisa Rodrigues, RN Clinic Data Services Developer 01/15/21 02/26/21 Vilma Long MD [address] [place] [address] Assigned Heart and Vascular Provider 01/20/21 07/20/21 [facility] [address] [place] [address] Pharmacist Pharmacist 06/04/21 01/15/22 Cole George LISW Lead Data Services Developer 06/13/21 10/07/21 Fletcher Up Community Health Worker 06/13/21 09/12/21 Bautista Casey MD [address] [place] [address] Assigned Heart and Vascular Provider 07/21/21 01/16/23 Jasmyn Oliver CHW Community Health Worker 09/13/21 10/07/21 [facility] [address] [place] [address] Assigned MTM Pharmacist 03/22/22 01/02/23 documented as of this encounter
--- OUTSIDE RECORDS SUMMARY | 2024-12-16 22:25 | XMS_ITS | Clinical Summary ---
Author Organization [facility] Address [address] [facility] [place] [address] Care Team Providers Care Food Checkers And Cashiers Supervisor Name Role Phone Aleshia Henriquez RD Unavailable Unavailable Vika Kevin APRN JOINERY FACTORY WORKER Primary Care Prov ider Allergies Active Allergy Reactions Criticality Noted Date Comments Cefdinir Rash Low 03/22/2019 Cephalexin Itching Low 09/04/2015 Nitrofurantoin Rash Low 05/09/2015 Rash Sulfamethoxazole Hives 01/19/2003 Medications aspirin 81 MG EC tabletIndication s:Coronary artery disease involving ho-chunk coronary artery of ho-chunk heart without angina pectoris,Type 2 diabetes mellitus with peripheral neuropathy (H) Take 1 tablet (81 mg) by mouth daily 90 tablet 3 1 Active fluticasone-salm eterol (AIRDUO RESPICLICK 113/14) 113-14 MCG/ACT inhalerIndicatio ns:Moderate persistent asthma without complication Inhale 1 puff into the lungs 2 times daily 3 each 3 1 Active furosemide (LASIX) 20 MG tabletIndication s:Generalized edema Take 0.5 tablets (10 mg) by mouth daily 45 tablet 3 1 Active isosorbide mononitrate (IMDUR) 60 MG 24 hr tabletIndication s:Coronary artery disease involving ho-chunk coronary artery of ho-chunk heart without angina pectoris Take 1 tablet (60 mg) by mouth daily 90 tablet 3 1 Active lamoTRIgine (LAMICTAL) 150 MG tabletIndication s:Generalized anxiety disorder Take 2 tablets (300 mg) by mouth daily (take 2 tablets daily for a total of 300 mg) 180 tablet 3 1 Active levothyroxine (SYNTHROID/LEVOT HROID) 88 MCG tabletIndication s:Hypothyroidism , unspecified type Take 1 tablet (88 mcg) by mouth daily 90 tablet 3 1 Active sertraline (ZOLOFT) 100 MG tabletIndication s:Generalized anxiety disorder Take 1 tablet (100 mg) by mouth daily 90 tablet 3 1 Active methenamine (HIPREX) 1 g tabletIndication s:Urinary retention,Freque nt UTI Take 1 tablet (1 g) by mouth 2 times daily 180 tablet 3 1 Active galantamine (RAZADYNE ER) 8 MG 24 hr capsuleIndicatio ns:Memory loss,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) Take 1 capsule (8 mg) by mouth daily (with breakfast) 90 capsule 3 1 Active gabapentin (NEURONTIN) 100 MG capsuleIndicatio ns: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) Take 2 capsules (200 mg) by mouth 3 times daily 540 capsule 5 1 Active memantine XR (NAMENDA XR) 21 MG 24 hr capsule Take 21 mg by mouth daily Active polyethylene glycol (MIRALAX) 17 GM/Dose powder Take 17 g by mouth every morning 1 Active senna-docusate (SENOKOT-S/PERIC OLACE) 8.6-50 MG tablet Take 1 tablet by mouth every morning 1 Active alum & mag hydroxide-simeth icone (MAALOX) 200-200-20 MG/5ML SUSP suspension Take 30 mLs by mouth as needed Up to three times a day Active vitamin C (ASCORBIC ACID) 1000 MG TABSIndications: Corona catheter in place,Recurrent UTI Take 1 tablet (1,000 mg) by mouth 2 times daily 180 tablet 3 1 Active vitamin D3 (CHOLECALCIFEROL ) 50 mcg (2000 units) tabletIndication s:Vitamin D deficiency Take 1 tablet (50 mcg) by mouth daily 90 tablet 3 1 Active acetaminophen (TYLENOL) 500 MG tabletIndication s:Arthritis Take 2 tablets (1,000 mg) by mouth every 8 hours as needed for mild pain or fever 90 tablet 3 2 Active atorvastatin (LIPITOR) 20 MG tabletIndication s:Coronary artery disease involving ho-chunk coronary artery of ho-chunk heart without angina pectoris Take 1 tablet (20 mg) by mouth daily 90 tablet 3 2 Active estradiol (ESTRACE) 0.1 MG/GM vaginal creamIndications :Frequent UTI large blueberry size amount in the vagina nightly three times a week at night 42.5 g 3 2 Active fluticasone (FLONASE) 50 MCG/ACT nasal sprayIndications :Environmental allergies [place] 2 sprays into both nostrils daily as needed for rhinitis or allergies 48 g 3 2 Active saline 0.65 % SOLN [place] 1 spray in nostril 3 times daily as needed (dry nostril; nasal congestion) 2 Active cyanocobalamin (VITAMIN B-12) 1000 MCG tablet Take 1 tablet (1,000 mcg) by mouth daily 2 Active folic acid (FOLVITE) 1 MG tablet Take 1 tablet (1 mg) by mouth daily 2 Active nitroGLYcerin (NITROSTAT) 0.4 MG sublingual tablet For chest pain place 1 tablet under the tongue every 5 minutes for 3 doses. If symptoms persist 5 minutes after 1st dose call 911. 2 Active melatonin 3 MG tablet Take 1 tablet (3 mg) by mouth nightly as needed for sleep 2 Active albuterol (PROAIR HFA/PROVENTIL HFA/VENTOLIN HFA) 108 (90 Base) MCG/ACT inhaler Inhale 2 puffs into the lungs every 6 hours 18 g 2 Active bisacodyl (DULCOLAX) [address] 1 suppository (10 mg) rectally daily as needed for constipation 2 Active Active Problems Problem Noted Date Diagnosed Date Chronic kidney disease, stage 2 (mild) 1 Subdural hematoma 10/18/2021 Overview (10/18/2021): After fall- Corona catheter in place 07/12/2021 Polyneuropathy associated with underlying diseas e 03/12/2021 Acute chest pain 03/11/2021 Dizziness 01/12/2021 Fall, initial encounter 01/12/2021 Ulcer of left lower extremity with fat layer exp osed 01/03/2021 Foreign body in bladder, initial encounter 10/10 Urinary retention 08/16/2019 Urinary frequency 08/16/2019 Alzheimer disease 10/26/2018 Overview (11/10/2018): early Driving safety issue 08/26/2018 Overview (09/24/2018): OTR advises against driving Recurrent UTI 03/22/2018 Type 2 diabetes mellitus wit h other circulatory complication, without long-term current use of insulin 08/12/2017 ACP (advance care planning) 07/07/2017 Overview (09/18/2015): Advance Care Planning 09/18/2015: ACP Review and Resources Provided: Reviewed chart for advance care plan. Marialuisa Cosby has an advance care plan on file which needs to be updated. Information and resources provided. Confirmed/documented legally designated decision maker(s). Added by Araseli Covarrubias Patient states has Advance Directive and will bring in a copy to clinic. 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 Pt almost always with symptoms- not common to have actual UTI. Please remind patient that we have agreed on this in clinic; she is aware it should apply to urgent care as well. Carlie Mac MD 10/31/2014 Palpitations 04/18/2014 Hypertension goal BP (blood pressure) < 140/90 0 01/25/2014 Moderate persistent asthma 01/25/2014 Hypothyroidism 01/25/2014 S/P hip replacement 01/25/2014 Overview (01/25/2014): right Environmental allergies 01/25/2014 Esophageal reflux 01/25/2014 Atrophic vaginitis 01/25/2014 Vitamin B12 deficiency without anemia 01/25/2014 Overview (08/27/2015): Diagnosis updated by automated process. Provider to review and confirm. MRSA infection 01/25/2014 Overview (01/25/2014): Positive for prior history Sun-damaged skin 01/16/2014 Type 2 diabetes, HbA1C goal < 8% 09/08/2013 Cholelithiasis 06/20/2013 Overview (06/20/2013): Found incidentally on CT scan 05/2013 Kidney stone 06/20/2013 Overview (06/20/2013): Stone found in bladder incidentally 05/2013 Atherosclerosis of ho-chunk co ronary artery of ho-chunk heart with angina pectoris 12/27/2012 Overview (07/30/2019): stent x 2 to Cx, Dr Varela Generalized anxiety disorder 08/01/2012 Overview (08/27/2015): Diagnosis updated by automated process. Provider to review and confirm. Urethral stricture - sees Dr Fang Al - s/p many dilations - self-caths all the time 04/01/2012 Overview (06/20/2013): Many dilations, will get painful urinary and pressure Low back pain 02/01/2009 Overview (08/27/2015): Diagnosis updated by automated process. Provider to review and confirm. COPD (chronic obstructive pulmonary disease) 10/2000 Overview (07/07/2017): Under control Immunosuppression Restless legs syndrome (RLS) Peripheral neuropathy Neurosensory deafness Hyperlipidemia with target LDL less than 70 Overview (08/27/2015): Diagnosis updated by automated process. Provider to review and confirm. PVD (peripheral vascular disease) Ascending aorta dilation Memory loss Resolved Problems Problem Noted Date Diagnosed Date Resolved Date Type III open bimalleolar fr acture of right ankle, initial encounter 01/12/2021 06/19/2021 Morbid obesity 07/20/2020 06/19/2021 Platelets decreased 03/24/2019 11/17/19 20 Open blow out fracture of or bit, initial encounter 03/24/2019 11/17/2019 Class 1 obesity with serious comorbidity and body mass index (BMI) of 31.0 to 31.9 in adult, unspecified obesity type 01/14/2019 06/19/20 RI (myocardial infarction) 0 06/19/2021 DM (diabetes mellitus) 06/19 Immunizations Name Administration Dates Next Due COVID-19 Monovalent 18+ (Moderna) 2021,06/19/2021,12/25/2020,2020 Influenza (High Dose) Trival ent,PF (Fluzone) 07/06/2019,07/01/2018,06/25/2017,2015,07/18/2015,07/14/2014,08/15/2013 Influenza (IIV3) PF 07/26/2012,08/21/2005,2003 Influenza Vaccine 65+ (Fluzone HD) 08/19/2021, Pneumo Conj 13-V (2010&after) 04/11/2016 Pneumococcal 23 valent 06/25/2017,04/01/2005, TD,PF 7+ (Tenivac) 03/15/2018, 6,04/01/2005,1994 TDAP Vaccine (Adacel) 03/04/2013 Zoster recombinant adjuvante d (SHINGRIX) 01/05/2020,09/14/2019 Zoster vaccine, live 10/26/2007 Family History Medical History Relation Comments Coronary Artery Disease Father Heart Disease Father AAA Hyperlipidemia Father Hypertension Father Depression Mother Diabetes Mother Hypertension Mother Heart Disease Paternal Grandmother Colon Cancer No family hx of Relation Status Comments Brother (Age 45) alcoholism Father Mother Paternal Grandmother Sister Alive Social History Tobacco Use Types Packs/Day Years Used Date Smoking Tobacco: Former Cigarettes 0.5 15 0 10/26/1955 - 10/26/1963 Smokeless Tobacco: Never Tobacco Cessation:Counseling Given: Yes Alcohol Use Standard Drinks/Week Comments Yes 6 [...] and Family Not on file 06/14/2021 Attends [employer] Not on file 06/14 Active Member [...] place to sleep or slept in a fpc (including now)? 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 on file Not on file Last Filed Vital Signs Vital Sign Reading Time Taken Comments Blood Pressure 126/62 09/25/2021 12:08 PM PROPOSITION PLAYER Pulse 102 09/25/2021 12:08 PM PROPOSITION PLAYER Temperature 36.8 C (98.2 F) 09/25/2021 12:08 PM PROPOSITION PLAYER Respiratory Rate 16 06/19/2021 3:30 PM CDT Oxygen Saturation 94% 09/25/2021 12:08 PM PROPOSITION PLAYER Inhaled Oxygen Concentration - - Weight 81.6 kg (180 lb) 07/22/2022 12:47 PM CDT Height 175.3 cm (5' 9) 07/22/2022 12:47 PM CDT Body Mass Index 26.58 07/22/2022 12:47 PM CDT Plan of Treatment Health Maintenance Due Date Last Done Comments RSV VACCINE (1 - 1-dose 75+ series) 2016 EYE EXAM 04/26/2019 04/26/2018, 10/2016, 09/25/2016, Additional history exists DIABETIC FOOT EXAM 07/20/2021 07/20/2020, 0 06/28/2020, 02/25/2018, Additional history exists LIPID 07/20/2021 07/20/2020, 06/27, 03/23/2018, Additional history exists MEDICARE ANNUAL WELLNESS VISIT 07/20/2021 07/20/2020, 07/07/2017, 04/11/2016, Additional history exists MICROALBUMIN 08/28/2021 08/28/2020, 06/27, 10/04/2018, Additional history exists A1C 10/27/2021 04/26/2021, 11/26, 07/20/2020, Additional history exists PHQ-9 10/27/2021 04/26/2021, 06/2020, 07/20/2020, Additional history exists ANNUAL REVIEW OF HM ORDERS 12/06/2021 12/06/2020 TSH W/FREE T4 REFLEX 04/26/2022 04/26/2021, 01/12/2021, 07/20/2020, Additional history exists FALL RISK ASSESSMENT 06/13/2022 06/13/2021, 02/27/2021, 12/26/2020, Additional history exists BMP 07/12/2022 07/12/2021, 11/2020, 03/11/2021, Additional history exists COVID-19 Vaccine ( season) 2024 03/03/2022, 06/19/2021, 12/25/2020, Additional history exists INFLUENZA VACCINE (#1) 2024 , 07/06/2020, 07/06/2019, Additional history exists ADVANCE CARE PLANNING 07/12/2026 07/12/2021 , 07/24/2020, 07/07/2017, Additional history exists DTAP/TDAP/TD IMMUNIZATION (3 - Td or Tdap) 03/15/2028 03/15/2018, 03/04/2013, 09/20/2006, Additional history exists DEXA 11/02/2030 11/02/2015, 08/28, 09/24/2011, Additional history exists SPIROMETRY Completed 03/13/2011 FIT Discontinued 04/16/2016, 09/18/2014 COLONOSCOPY Discontinued 05/02/2016, 07/30/2004 COLORECTAL CANCER SCREENING Discontinued Pneumococcal Vaccine: 50+ Years Completed 06/25/2017, 04/11/2016, 04/01/2005, Additional history exists MAMMO SCREENING Discontinued 04/15/2018, 03/26, 03/10/2017, Additional history exists DEPRESSION ACTION PLAN Completed 8, 05/27/2017, 05/27/2017, Additional history exists ZOSTER IMMUNIZATION Completed 01/05/2020, 09/14/2019, 10/26/2007 COPD ACTION PLAN Completed 04/26/2021 URINALYSIS Completed 09/23/2021, 05/27, 04/23/2021, Additional history exists CT COLONOGRAPHY Discontinued FLEX SIG Discontinued HPV IMMUNIZATION Aged Out No longer e ligible based on patient's age to complete this topic MENINGITIS IMMUNIZATION Aged Out No l onger eligible based on patient's age to complete this topic RSV MONOCLONAL ANTIBODY Aged Out No l onger eligible based on patient's age to complete this topic sDNA (Cologuard) Discontinued Medical Devices Implanted Type Area Orthopedic Nurse Device Identifier Shelf Expiration Date Model / Serial / Lot Imp Plate Syn 1/3 Tubular 85mm 07h Ss 241.37 Implanted:Qty : 1 on 01/12/2021 by Rom Martell MD at [facility] Metallic Hardware/Anc hor Right: Ankle SYNTHES-STRATEC 241.37 / / [id number] Imp Scr Syn Cortex 3.5x16mm Self Tap Ss 204.816 Implanted:Qty : 3 on 01/12/2021 by Rom Martell MD at [facility] Metallic Hardware/Anc hor Right: Ankle SYNTHES-STRATEC 204.816 / / [id number] Imp Scr Syn Can 4.0x14mm Ft Ss 206.014 Implanted:Qty : 1 on 01/12/2021 by Rom Martell MD at [facility] Metallic Hardware/Anc hor Right: Ankle SYNTHES-STRATEC 206.014 / / [id number] Imp Scr Syn Can 4.0x16mm Ft Ss 206.016 Implanted:Qty : 2 on 01/12/2021 by Rom Martell MD at [facility] Metallic Hardware/Anc hor Right: Ankle SYNTHES-STRATEC 206.016 / / [id number] Imp Scr Syn Can 4.0x50mm Ft Ss 206.050 Implanted:Qty : 1 on 01/12/2021 by Rom Martell MD at [facility] Metallic Hardware/Anc hor Right: Ankle SYNTHES-STRATEC 206.050 / / [id number] Procedures Procedure Name Priority Date/Time Associated Diagnosis Comments UA MACROSCOPIC WITH REFLEX TO MICRO AND CULTURE Routine 09/23/2021 3:09 PM PROPOSITION PLAYER Urinary tract infection Corona catheter in place Recurrent UTI Urinary tract infection associated with indwelling urethral catheter, initial encounter COMPREHENSIVE METABOLIC PANEL Routine 07/12/2021 9:45 AM CDT Elevated liver enzymes TSH WITH FREE T4 REFLEX Routine 04/26/2021 12:18 PM CDT Weight loss HEMOGLOBIN A1C Routine 04/26/2021 12:18 PM CDT Type 2 diabetes mellitus with peripheral neuropathy (H) Type 2 diabetes, HbA1C goal < 8% (H) ALBUMIN RANDOM URINE QUANTITATIVE Routine 08/28/2020 3:27 PM PROPOSITION PLAYER Hypertension goal BP (blood pressure) < 140/90 Type 2 diabetes, HbA1C goal < 8% (H) LIPID REFLEX TO DIRECT LDL PANEL Routine 07/20/2020 11:48 AM CDT Hyperlipidemia with target LDL less than 70 MA DIAGNOSTIC RIGHT W JEFRY Routine 04/15/2018 9:55 AM CDT Abnormal mammogram FOOT EXAM - HIM SCAN Routine 02/25/2018 COLONOSCOPY Routine 05/02/2016 7:39 AM CDT FECAL COLORECTAL CANCER SCREEN FIT Routine 04/16/2016 12:00 AM CDT Encounter for routine adult health examination without abnormal findings Medicare annual wellness visit, subsequent Screen for colon cancer DEXA - HIM SCAN 11/02/2015 12:00 AM PROPOSITION PLAYER EYE EXAM - HIM SCAN Routine 09/25/2014 HC SPIROMETRY, BREATH CAPACITY Routine 03/13/2011 ASTHMA - MODERATE PERSISTENT from Last 3 Months or Most Recently Relevant to Health Maintenance Results * (ABNORMAL) UA reflex to Microscopic and Culture (09/23/2021 3:09 PM PROPOSITION PLAYER) Color Urine Yellow Colorless, Straw, Light Yellow, Yellow 09/23/2021 3:13 PM PROPOSITION PLAYER [facility] Appearance Urine Clear Clear 09/23/20 3:13 PM PROPOSITION PLAYER [facility] Glucose Urine Negative Negative mg/dL 09/23/2021 3:13 PM PROPOSITION PLAYER [facility] Bilirubin Urine Negative Negative 3:13 PM PROPOSITION PLAYER [facility] Ketones Urine Negative Negative mg/dL 09/23/2021 3:13 PM PROPOSITION PLAYER [facility] Specific [place] Urine 1.020 1.003 - 1.035 09/23/2021 3:13 PM PROPOSITION PLAYER [facility] Blood Urine Trace(A) Negative 09/23/2021 3:13 PM PROPOSITION PLAYER [facility] pH Urine 6.0 5.0 - 7.0 09/23/2021 3:13 PM PROPOSITION PLAYER [facility] Protein Albumin Urine 30(A) Negative mg/dL 09/23/2021 3:13 PM PROPOSITION PLAYER [facility] Urobilinogen Urine 0.2 0.2, 1.0 E.U./dL 09/23/2021 3:13 PM PROPOSITION PLAYER [facility] Nitrite Urine Positive(A) Negative 09/23/2021 3:13 PM PROPOSITION PLAYER [facility] Leukocyte Esterase Urine Moderate(A) Negative 09/23/2021 3:13 PM PROPOSITION PLAYER [facility] Urine URINE SPECIMEN OBTAINED VIA INDWELLING URINARY CATHETER / Unknown Non-blood Collection / Unknown 09/23/2021 3:09 PM PROPOSITION PLAYER 09/23/2021 3:09 PM PROPOSITION PLAYER us Julito Banuelos MD LAB - URINE ORDERABLES Final Res ult [facility] [address] [place] [address] S E Lab (no room number, 1st floor of clinic) [place] [address], [facility] [phone] * (ABNORMAL) Comprehensive metabolic panel (BMP + Alb, Alk Phos, ALT, AST, Total. Bili, TP) (07/12/2021 9:45 AM CDT) Sodium 137 133 - 144 mmol/L 07/13/2021 1:05 PM CDT [facility] Potassium 4.2 3.4 - 5.3 mmol/L 07/13/2021 1:05 PM CDT [facility] Chloride 106 94 - 109 mmol/L 07/13/2021 1:05 PM CDT [facility] Carbon Dioxide (CO2) 27 20 - 32 mmol/L 07/13/2021 1:05 PM CDT [facility] Anion Gap 4 3 - 14 mmol/L 07/13/2021 1:05 PM CDT [facility] Urea Nitrogen 21 7 - 30 mg/dL 07/13/2021 1:05 PM CDT [facility] Creatinine 0.83 0.52 - 1.04 mg/dL 07/13/2021 1:05 PM CDT [facility] Calcium 8.5 8.5 - 10.1 mg/dL 07/13/2021 1:05 PM CDT [facility] Glucose 99 70 - 99 mg/dL 07/13/2021 1:05 PM CDT [facility] Alkaline Phosphatase 155(H) 40 - 150 U/L 07/13/2021 1:05 PM CDT [facility] AST 71(H) 0 - 45 U/L 07/13/2021 1:05 PM CDT [facility] ALT 73(H) 0 - 50 U/L 07/13/2021 1:05 PM CDT [facility] Protein Total 7.4 6.8 - 8.8 g/dL 07/13/2021 1:05 PM CDT [facility] Albumin 3.6 3.4 - 5.0 g/dL 07/13/2021 1:05 PM CDT [facility] Bilirubin Total 0.4 0.2 - 1.3 mg/dL 07/13/2021 1:05 PM CDT [facility] GFR Estimate 67 >60 mL/min/1.7 3m2 07/13/2021 1:05 PM CDT [facility] Comment:As of May 05, 2021, eGFR is calculated by the CKD-EPI creatinine equation, without race adjustment. eGFR can be influenced by muscle mass, exercise, and diet. The reported eGFR is an estimation only and is only applicable if the renal function is stable. Blood STRUCTURE OF LEFT UPPER LIMB / Unknown Venipuncture / Unknown 07/12/2021 9:45 AM CDT 07/12/2021 9:45 AM CDT Vika Kevin APRN JOINERY FACTORY WORKER LAB - BLOOD ORDERA BLES Final Result [facility] [address] Lab (no room number, 1st floor of clinic) [place] [address], [facility] [phone] * TSH with free T4 reflex (04/26/2021 12:18 PM CDT) TSH 1.56 0.40 - 4.00 mU/L 04/28/2021 10:28 AM CDT [facility] Blood 04/26/2021 12:1 8 PM CDT 04/26/2021 12:19 PM CDT us Vika Kevin APRN, CNP LAB - BLOOD ORDERA BLES Final Result Performing Organization Address City/[facility]/ZIP Co de Phone Number [facility] [address] [place] [address] * Hemoglobin A1c (04/26/2021 12:18 PM CDT) Hemoglobin A1C 5.5 0 - 5.6 % 04/26/2021 12:54 PM CDT [facility] Comment: Normal <5.7% Prediabetes 5.7-6.4% Diabetes 6.5% or higher - adopted from ADA consensus guidelines. Blood 04/26/2021 12:1 8 PM CDT 04/26/2021 12:19 PM CDT us Vika Kevin APRN, CNP LAB - BLOOD ORDERA BLES Final Result Performing Organization Address [facility] Co de Phone Number [facility] [address] [place] [phone] * (ABNORMAL) Albumin Random Urine Quantitative with Creat Ratio (08/28/2020 3:27 PM PROPOSITION PLAYER) Creatinine Urine 121 mg/dL 08/29/2020 5:22 PM PROPOSITION PLAYER [facility] Albumin Urine mg/L 121 mg/L 08/29/2020 6:46 PM PROPOSITION PLAYER [facility] Albumin Urine mg/g Cr 100.00(H) 0 - 25 mg/g Cr 08/29/2020 6:46 PM PROPOSITION PLAYER [facility] Urine specimen (specimen) 08/28/2020 3:27 PM PROPOSITION PLAYER 08/28/2020 3:28 PM PROPOSITION PLAYER us Vika Kevin APRN, CNP LAB - URINE ORDERA BLES Final Result Performing Organization Address City/[facility] Co de Phone Number [facility] [address] [place] [phone] * (ABNORMAL) Lipid panel reflex to direct LDL Fasting (07/20/2020 11:48 AM CDT) Cholesterol 103 <200 mg/dL 07/20/2020 6:34 PM CDT [facility] Triglycerides 118 <150 mg/dL 07/20/2020 6:33 PM CDT [facility] HDL Cholesterol 41(L) >49 mg/dL 0 6:39 PM CDT [facility] LDL Cholesterol Calculated 38 <100 mg/dL 07/20/2020 6:39 PM CDT [facility] Comment:Desirable: <100 mg/d l Non HDL Cholesterol 62 <130 mg/dL 07/20/2020 6:39 PM CDT [facility] Blood specimen (specimen) 07/20/2020 11:48 AM CDT 07/20/2020 11:50 AM CDT us Braeden Sow MD LAB - BLOOD ORDERABLES Final Result Performing Organization Address [facility] Co de Phone Number [facility] [address] [place] [phone] * MA Diagnostic Right w/Jefry (04/15/2018 9:55 AM CDT) Anatomical Region Laterality Modality Breast Bilateral Mammography Impressions 04/15/2018 12:51 PM CDT IMPRESSION: BI-RADS CATEGORY: 1 - Negative No evidence of malignancy. Screening detected abnormalities reflect benign glandular tissue. Results were discussed with the patient during her appointment. As long as her physical examination remains stable, annual screening mammography would be recommended. RECOMMENDED FOLLOW-UP: Annual Mammography. SHAILESH NICHOLAS MD Narrative 04/15/2018 12:51 PM CDT MA DIAGNOSTIC RIGHT W JEFRY - 04/15/2018 HISTORY: Recalled from screening mammogram of 04/06/2018 regarding focal asymmetry in the upper inner right breast. COMPARISON: Screening mammograms 04/06/2018, 03/11/2017 BREAST DENSITY: Scattered fibroglandular densities. FINDINGS: Diagnostic views of the right breast were obtained, including tomosynthesis. With the benefit of tomosynthesis the areas of screening detected asymmetry are not redemonstrated. The pattern of glandular tissue is stable in comparison with several previous mammograms and there is no evidence of malignancy. Procedure Note Shailesh Nicholas MD - 04/15/2018 MA DIAGNOSTIC RIGHT W JEFRY - 04/15/2018 HISTORY: Recalled from screening mammogram of 04/06/2018 regarding focal asymmetry in the upper inner right breast. COMPARISON: Screening mammograms 04/06/2018, 03/11/2017 BREAST DENSITY: Scattered fibroglandular densities. FINDINGS: Diagnostic views of the right breast were obtained, including tomosynthesis. With the benefit of tomosynthesis the areas of screening detected asymmetry are not redemonstrated. The pattern of glandular tissue is stable in comparison with several previous mammograms and there is no evidence of malignancy. IMPRESSION: BI-RADS CATEGORY: 1 - Negative No evidence of malignancy. Screening detected abnormalities reflect benign glandular tissue. Results were discussed with the patient during her appointment. As long as her physical examination remains stable, annual screening mammography would be recommended. RECOMMENDED FOLLOW-UP: Annual Mammography. SHAILESH NICHOLAS MD Julito Banuelos MD IM MAMMOGRAPHY ORDERABLES Final Result * Foot Exam - HIM Scan (02/25/2018) Narrative Steff Fernandes - 02/25/2018 SEE PROGRESS NOTE PINNACLE FOOT AND ANKLE us Provider Outside OTHER Final Result * COLONOSCOPY (05/02/2016 7:39 AM CDT) Pathologist [facility] Patient Name: Marialuisa Cosby Procedure Date: 05/02/2016 7:39 AM Date of : 1940 Admit Type: Outpatient Age: 76 Gender: Female Attending MD: Wicho Preston MD Instrument Name: [id number] Procedure: Colonoscopy Indications: Heme positive stool Providers: Wicho Preston MD, Emilie Vivar RN (Nurse) Referring MD: Julito Banuelos MD Medicines: Fentanyl 100 micrograms IV, Midazolam 3 mg IV Complications: No immediate complications. Procedure: Pre-Anesthesia Assessment: - Prior to the procedure, a History and Physical was performed, and patient medications and allergies were reviewed. The risks and benefits of the procedure and the sedation options and risks were discussed with the patient. All questions were answered and informed consent was obtained. Patient identification and proposed procedure were verified by the physician in the pre-procedure area. Mental Status Examination: alert and oriented. Airway Examination: normal oropharyngeal airway and neck mobility. Respiratory Examination: clear to auscultation. CV Examination: normal. Prophylactic Antibiotics: The patient does not require prophylactic antibiotics. Prior Anticoagulants: The patient has taken no previous anticoagulant or antiplatelet agents. ASA Grade Assessment: II - A patient with mild systemic disease. After reviewing the risks and benefits, the patient was deemed in satisfactory condition to undergo the procedure. The anesthesia plan was to use moderate sedation / analgesia (conscious sedation). Immediately prior to administration of medications, the patient was re-assessed for adequacy to receive sedatives. The heart rate, respiratory rate, oxygen saturations, blood pressure, adequacy of pulmonary ventilation, and response to care were monitored throughout the procedure. The physical status of the patient was re-assessed after the procedure. After obtaining informed consent, the colonoscope was passed under direct vision. Throughout the procedure, the patient's blood pressure, pulse, and oxygen saturations were monitored continuously. The [id number] was introduced through the anus and advanced to the cecum, identified by appendiceal orifice and ileocecal valve. The colonoscopy was performed without difficulty. The patient tolerated the procedure well. The quality of the bowel preparation was good. Findings: A sessile polyp was found in the ascending colon. The polyp was 8 mm in size. The polyp was removed with a hot snare. Resection and retrieval were complete. A flat polyp was found in the transverse colon. The polyp was 35 mm in size. The polyp was removed with a saline injection-lift technique using a hot snare. Resection and retrieval were complete. To prevent bleeding post-intervention , three hemostatic clips were successfully placed. There was no bleeding at the end of the procedure. The colon (entire examined portion) was significantly redundant. Impression: - One 8 mm polyp in the ascending colon. Resected and retrieved. - One 35 mm polyp in the transverse colon. Resected and retrieved. Clips were placed. - Redundant colon. Recommendation: - Await pathology results. - Repeat colonoscopy for surveillance based on pathology results. Procedure Code(s): --- Professional --- 20545, Colonoscopy, flexible, proximal to splenic flexure; with removal of tumor(s), polyp(s), or other lesion(s) by snare technique 73055, Colonoscopy, flexible, proximal to splenic flexure; with directed submucosal injection(s), any substance CPT copyright 2013 [employer]. All rights reserved. The codes documented in this report are preliminary and upon paint technician review may be revised to meet current compliance requirements. Wicho Preston M.D. ____ Wicho Preston MD 05/02/2016 8:59 AM Number of Addenda: 0 Note Initiated On: 05/02/2016 7:39 AM Procedure Date: 05/02/2016 7:39:47 AM Scope Withdrawal Time: 0 hours 48 minutes 37 seconds Total Procedure Duration: 0 hours 53 minutes 40 seconds Estimated Blood Loss: Scope In: 8:00:18 AM Scope Out: 8:53:58 AM RADIOLOGY RESULTS 05/02/2016 7:39 AM CDT us Julito Banuelos MD PROCEDURES Final Result RADIOLOGY RESULTS * (ABNORMAL) Fecal colorectal cancer screen (FIT) (04/16/2016 12:00 AM CDT) Occult Blood Scn FIT Positive(A ) NEG [facility] Stool specimen (specimen) 04/16/2016 04/19/2016 12:54 PM CDT us Julito Banuelos MD LAB - STOOLS ORDERABLES Final Re sult [facility] [address] [place] [address] * DEXA - HIM SCAN (11/02/2015 12:00 AM PROPOSITION PLAYER) Anatomical Region Laterality Modality Other 11/02/2015 us Provider Outside IMG DEXA ORDERABLES Final Resul t * Eye Exam - HIM Scan (09/25/2014) Narrative Dora De León - 09/25/2014 for eye exam, had it done 09/2014 at [facility]. MD us Patient Reported OTHER Final Result * Spirometry, Breath Capacity (03/13/2011) us Andrew Lu MD PROCEDURES Final Result from Last 3 Months or Most Recently Relevant to Health Maintenance Insurance [facility] [facility] MEDICARE ADVANTAGE [address] MEDICARE ADVANTAGE * Guarantor: Marialuisa Cosby Account Type Relation to Patient Date of Phone Billing Address Medication Therapy Self [address] [place] [address] BCBS MEDICARE ADVANTAGE [facility] MEDIC[employer] ADVANTAGE Advance Directives For more information, please contact: [phone] * Full Code (Latest Code Status on File) Date Activated Date Inactivated Comments 01/12/2021 6:18 PM 01/15/2021 1:26 PM All basic a nd advanced life-sustaining interventions are performed as appropriate Question Answer Comments Code status determined by: Discussion with patie nt/ legal decision maker * Full Code Date Activated Date Inactivated Comments 08/19/2018 10:21 AM 12/09/2020 11:50 AM Question Answer Comments Code status determined by: Discussion with patie nt/legal decision maker * Full Code Date Activated Date Inactivated Comments 08/18/2018 5:22 PM 08/19/2018 10:21 AM Question Answer Comments Code status determined by: Discussion with patie nt/legal decision maker * Full Code Date Activated Date Inactivated Comments 07/03/2014 1:24 PM 08/18/2018 5:22 PM * Full Code Date Activated Date Inactivated Comments 07/02/2014 4:58 AM 07/03/2014 1:24 PM Care Teams Food Checkers And Cashiers Supervisor Relationship Specialty Start Date End Date Vika Kevin APRN JOINERY FACTORY WORKER [address] [place] [address] PCP - General Nurse Practitioner - Family 07/24/[address] Golf Club Head Inspector Dietitian, Registered 04/14/19
--- OUTSIDE RECORDS SUMMARY | 2024-12-16 22:25 | XMS_ITS | Encounter Summary ---
Author Organization [place] Address [address] [facility] [place] [address] Care Team Providers Care Queen Producer Name Role Phone Andrew Lu MD Primary Care Provider [phone] Niko Resendiz MD Primary Care Provider Carlie Mac MD Primary Care Provide r Agnella Mendieta MD Primary Care Provider Julito Banuelos MD Primary Care Provider [phone] Julito Banuelos MD Unavailable Julito Banuelos MD Unavailable Aleshia Henriquez RD Unavailable Unavailable Mary Kay Jones [facility] Unavailable Unavailable Susannah Blankenship [facility] Unavailable [phone] Carolyn Huynh [facility] Unavailable [phone] iVka Kevin APRN SOCIAL SCIENCES CHAIR Unavailable + Marilyn Willard MD Unavailable [phone] Carie Varela DO Unavailable +[phone] Maylin May NP Unavailable [phone] Marisa Rodrigues RN Unavailable Unavailable Vilma Long MD Unavailable + [phone] Yasmeen Pendleton [facility] Unavailable + [phone] Cole George Unavailable Fletcher Russell Unavailable Unavailable Bautista Casey MD Unavailable [phone] AnnyJasmyn tracey [facility] Unavailable [phone] Vika Kevin APRN [facility] Primary Care Prov ider Vika Kevin APRN [facility] Primary Care Prov ider Yasmeen Pendleton [facility] Unavailable + [phone] Vika [facility] Primary Care Prov ider Encounter Details Date Type Department Care Team (Late st Contact Info) Description 01/10/2014 MyC Medical Advice [facility] - Primary Care [address] [place] [phone] Emilie Dolan MD Social History Tobacco Use Types Packs/Day Years Used Date Smoking Tobacco: Former Cigarettes 0.3 15 0 10/26/1961 - 10/26/1976 Smokeless Tobacco: Never Alcohol Use Standard Drinks/Week Comments Yes 0 (1 standard drink = 0.6 oz pur e alcohol) 1-2 glasses of wine weekly Comments No Sex and Gender Information Value Date Recorded Sex Assigned at Not on file Legal 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 PICK PULLING MACHINE TENDER Gender Identity Not on file Sexual Orientation [...] Out COVID-19 12/04/2020 12/04/2020 12/05/2020 6:04 PM PICK PULLING MACHINE TENDER documented as of this encounter Care Teams Queen Producer Relationship Specialty Start Date End Date Andrew Lu MD XXX RETIRED XXX [address] [place] [address] PCP - General 12/10/01 01/10/14 Niko Resendiz MD [address] [place] [address] PCP - General Internal Medicine 01/11/14 01/29/14 Carlie Mac MD [address] [place] [address] PCP - General Pediatrics 01/30/14 07/17/15 Angella Mendieta MD [address] [place] [address] PCP - General Family Practice 07/18/15 09/11/15 Julito Banuelos MD [address] [place] [address] 86[address] PCP - General Family Practice 09/12/15 09/23/21 Julito Banuelos MD [address] [place] [address] 74188 PCP - Assigned PCP 02/17/16 12/28/18 Vika Kevin APRN SOCIAL SCIENCES CHAIR [address] [place] [address] 86736 PCP - General Nurse Practitioner - Family 09/24/21 03/05/22 Vika Kevin APRN SOCIAL SCIENCES CHAIR [address] [place] [address] 949[address] PCP - General Nurse Practitioner - Family 03/18/22 06/18/22 Vika Kevin APRN SOCIAL SCIENCES CHAIR [address] [place] [address] [id number] PCP - General Nurse Practitioner - Family 07/24/22 Julito Banuelos MD [address] [place] [address] [id number] Assigned PCP 02/17/16 07/21/[address] [place] [address] Industrial Hygiene Engineer Dietitian, Registered 04/14/19 Mary Kay Jones, [facility] Pharmacist 08/01/19 04/20/20 [facility] [address] [place] [address] [address] [place], [place] 6[address] Pharmacist Pharmacist 08/08/19 04/15/21 [facility] [address] [place], [place] [phone] Pharmacist Pharmacist 06/25/20 04/15/21 Vika Kevin APRN SOCIAL SCIENCES CHAIR [address] [place] [address] 103872 Assigned PCP 07/22/20 11/16/24 Marilyn Willard MD [address] [place] [address] [address] [place] [address] Assigned Surgical Provider 08/17/20 08/16/24 Carie Varela DO [address] [place], [place] [address] Assigned Heart and Vascular Provider 08/17/20 01/19/21 Maylin May NP [address] [place] [address] Assigned Pediatric Specialist Provider 12/16/20 06/13/22 Marisa Rodrigues, RN Clinic Art Gallery Director 01/15/21 02/26/21 Vilma Long MD [address] [place] [address] Assigned Heart and Vascular Provider 01/20/21 07/20/21 Yasmeen Pendleton [facility] [address] [place] [address] Pharmacist Pharmacist 06/04/21 01/15/22 Cole George LISW Lead Art Gallery Director 06/13/21 10/07/21 Fletcher Up Community Health Worker 06/13/21 09/12/21 Bautista Casey MD [address] [place] [address] Assigned Heart and Vascular Provider 07/21/21 01/16/23 Jasmyn Oliver CHW Community Health Worker 09/13/21 10/07/21 Yasmeen Pendleton [facility] [address] [place] [address] [id number] Assigned MTM Pharmacist 03/22/22 01/02/23 documented as of this encounter
--- OUTSIDE RECORDS SUMMARY | 2024-12-16 22:25 | XMS_ITS | Encounter Summary ---
Author Organization [place] Address [address] [facility] [place] [address] Care Team Providers Care Headlight Adjuster Name Role Phone Andrew Lu MD Primary Care Provider [phone] Niko Resendiz MD Primary Care Provider Carlie Mac MD Primary Care Provide r Angella Mendieta MD Primary Care Provider Julito Banuelos MD Primary Care Provider [phone] Julito Banuelos MD Unavailable Julito Banuelos MD Unavailable Aleshia Henriquez RD Unavailable Unavailable Mary Kay Jones [facility] Unavailable Unavailable Susannah Blankenship [facility] Unavailable [phone] Carolyn Huynh [facility] Unavailable [phone] Vika Kevin APRN BILLING AND QUALITY TECHNICIAN Unavailable + Marilyn Willard MD Unavailable [phone] Carie Varela DO Unavailable [phone] Maylin May NP Unavailable [phone] Marisa Rodrigues RN Unavailable Unavailable Vilma Long MD Unavailable + [phone] Yasmeen Pendleton [facility] Unavailable [phone] Cole George Unavailable Fletcher Russell Unavailable Unavailable Bautista Casey MD Unavailable AnnyJasmyn tracey [facility] Unavailable [phone] Vika Kevin APRN [facility] Primary Care Prov ider Vika Kevin APRN [facility] Primary Care Prov ider Yasmeen Pendleton [facility] Unavailable [phone] Vika [facility] Primary Care Prov ider Encounter Details Date Type Department Care Team (Late st Contact Info) Description 05/25/2007 MyC Medical Advice [address] [phone] Andrew Lu MD XXX RETIRED XXX [address] [place] [address] [phone] Social History Tobacco Use Types Packs/Day Years Used Date Smoking Tobacco: Former Cigarettes 0.3 15 0 10/26/1961 - 10/26/1976 Alcohol Use Standard Drinks/Week Comments Yes 0 (1 standard drink = 0.6 oz pur e alcohol) 1 wine 2x qweek Comments No Sex and Gender Information Value Date Recorded Sex Assigned at Not on file Legal 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 NETWORK DEVELOPMENT COORDINATOR Gender Identity Not on file Sexual Orientation Not on file documented as of this encounter Plan of Treatment Not on file documented as of this encounter Visit Diagnoses Not on filedocumented in this encounter Additional Health Concerns Infection Onset Date Last Indicated Resolved Time Rule Out COVID-19 07/25/2020 07/25/2020 07/26/2020 3:02 PM CDT Rule Out COVID-19 12/04/2020 12/04/2020 12/05/2020 6:04 PM NETWORK DEVELOPMENT COORDINATOR documented as of this encounter Care Teams Headlight Adjuster Relationship Specialty Start Date End Date Andrew Lu MD XXX RETIRED XXX [address] [place] [phone] PCP - General 12/10/01 01/10/14 Niko Resendiz MD [address] [place] [address] PCP - General Internal Medicine 01/11/14 01/29/14 Carlie Mac MD [address] [place], [place] [phone] PCP - General Pediatrics 01/30/14 07/17/15 Angella Mendieta MD [address] [place] [address] 499072 PCP - General Family Practice 07/18/15 09/11/15 Julito Banuelos MD [address] [place] [address] [id number] PCP - General Family Practice 09/12/15 09/23/21 Julito Banuelos MD [address] [place] [address] 39618 PCP - Assigned PCP 02/17/16 12/28/18 Vika Kevin APRN BILLING AND QUALITY TECHNICIAN [address] [place] [address] [phone] PCP - General Nurse Practitioner - Family 09/24/21 03/05/22 Vika Kevin APRN BILLING AND QUALITY TECHNICIAN [address] [place] [address] 349402 PCP - General Nurse Practitioner - Family 03/18/22 06/18/22 Vika Kevin APRN BILLING AND QUALITY TECHNICIAN [address] [place] [address] [phone] PCP - General Nurse Practitioner - Family 07/24/22 Julito Banuelos MD [address] [place] [address] [phone] Assigned PCP 02/17/16 07/21/[address] [place] [address] Laboratory Cureman Dietitian, Registered 04/14/19 Mary Kay Jones, [facility] Pharmacist 08/01/19 04/20/20 [facility] [address] [place] [address] 8[address] [place], [place] 2733[address] Pharmacist Pharmacist 08/08/19 04/15/21 [facility] [address] [place] [address] Pharmacist Pharmacist 06/25/20 04/15/21 Vika Kevin APRN BILLING AND QUALITY TECHNICIAN [address] [place] [address] [phone] Assigned PCP 07/22/20 11/16/24 Marilyn Willard MD [address] [place] [address] [address] [place], [place] 7867[address] Assigned Surgical Provider 08/17/20 08/16/24 Carie Varela DO [address] [place] [address] Assigned Heart and Vascular Provider 08/17/20 01/19/21 Maylin May NP [address] [place] [address] Assigned Pediatric Specialist Provider 12/16/20 06/13/22 Marisa Rodrigues, RN Clinic Dining Room Host 01/15/21 02/26/21 Vilma Long MD [address] [place] [address] Assigned Heart and Vascular Provider 01/20/21 07/20/21 Yasmeen Pendleton [facility] [address] [place] [address] Pharmacist Pharmacist 06/04/21 01/15/22 Cole George LISW Lead Dining Room Host 06/13/21 10/07/21 Fletcher Up Community Health Worker 06/13/21 09/12/21 Bautista Casey MD [address] [place] [address] Assigned Heart and Vascular Provider 07/21/21 01/16/23 Jasmyn Oliver CHW Community Health Worker 09/13/21 10/07/21 Yasmeen Pendleton [facility] [address] [place] [address] Assigned MTM Pharmacist 03/22/22 01/02/23 documented as of this encounter
--- OUTSIDE RECORDS SUMMARY | 2024-12-16 22:26 | XMS_ITS | Encounter Summary ---
Author Organization [place] Address [address] [facility] [place] [place] [address] Care Team Providers Care Merchandise Flow Manager Name Role Phone Julito Banuelos MD Primary Care Provider [phone] Unavailable Unavailable Susannah Blankenship [facility] Unavailable [phone] Carolyn Huynh [facility] Unavailable [phone] Vika Kevin APRN [facility] Unavailable + Marilyn Willard MD Unavailable [phone] Carie Varela DO Unavailable [phone] Maylin May NP Unavailable [phone] Marisa Hernandez RN Unavailable Unavailable Vilma Long MD Unavailable + [phone] Yasmeen Pendleton [facility] Unavailable Cole George Unavailable Fletcher Russell Unavailable Unavailable Bautista Casey MD Unavailable [phone] Jasmyn Oliver Unavailable [phone] Vika Kevin APRN [facility] Primary Care Prov ider Vika Kevin APRN [facility] Primary Care Prov ider FrantzYasmeen barreto [facility] Unavailable [phone] Vika Kevin ENAMEL PULVERIZER [facility] Primary Care Prov ider Encounter Details Date Type Department Care Team (Late st Contact Info) Description 08/14/2020 MyC Medical Advice [address] [place] [address] Susannah Blaneknship, [facility] [address] [facility] [address] [place] [address] Social History Tobacco Use Types Packs/Day Years Used Date Smoking Tobacco: Former Cigarettes 0.5 15 0 10/26/1955 - 10/26/1962 Smokeless Tobacco: Never Alcohol Use Standard Drinks/Week Comments Yes 6 (1 standard drink = 0.6 oz pur e alcohol) Occasional glass of wine PHQ-2 Answer Date Recorded PHQ-2 Score 1 07/20/2020 Comments No Sex and Gender Information Value Date Recorded Sex Assigned at Not on file Legal 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 BINGO CHECKER Gender Identity Not on file Sexual Orientation Not on file Occupation Industry Job Start Date Job End Date Not on file Not on file Not on file Not on file COVID-19 Exposure Response Date Recorded In the last month, have you been in contact with someone who was confirmed or suspected to have Coronavirus / COVID-19? No / Unsure 08/16/2020 12:05 PM CDT documented as of this encounter Plan of Treatment Not on file documented as of this encounter Visit Diagnoses Not on filedocumented in this encounter Additional Health Concerns Infection Onset Date Last Indicated Resolved Time Rule Out COVID-19 12/04/2020 12/04/2020 12/05/2020 6:04 PM BINGO CHECKER Assessment Noted Time PHQ-9 Depression Total Score: 020 1:07 PM CDT documented as of this encounter Care Teams Merchandise Flow Manager Relationship Specialty Start Date End Date Julito Banuelos MD [address] [place], [place] 5[address] PCP - General Family Practice 09/12/15 09/23/21 Vika Kevin, JAIME TECHNOLOGY INTERN [address] [place] [address] PCP - General Nurse Practitioner - Family 09/24/21 03/05/22 Vika Kevin APRN TECHNOLOGY INTERN [address] [place] [address] 00572 PCP - General Nurse Practitioner - Family 03/18/22 06/18/22 Vika Kevin APRN TECHNOLOGY INTERN [address] [place] [address] PCP - General Nurse Practitioner - Family 07/24/[address] [place] [address] Fagot Heater Helper Dietitian, Registered 04/14/19 Susannah Blankenship, [facility] [address] [facility] [address] [place] [address] Pharmacist Pharmacist 08/08/19 04/15/21 Carolyn Huynh [facility] [address] [place] [address] Pharmacist Pharmacist 06/25/20 04/15/21 Vika Kevin, JAIME TECHNOLOGY INTERN [address] [place] [address] [phone] Assigned PCP 07/22/20 11/16/24 Marilyn Willard MD [address] [facility] [address] [place] [address] Assigned Surgical Provider 08/17/20 08/16/24 Carie Varela DO [address] [place] [address] Assigned Heart and Vascular Provider 08/17/20 01/19/21 Maylin May NP [address] [facility] [place] [address] Assigned Pediatric Specialist Provider 12/16/20 06/13/22 Marisa Rodrigues, RN Clinic Production Drilling Machine Operator 01/15/21 02/26/21 Vilma Long MD [address] [place] [address] Assigned Heart and Vascular Provider 01/20/21 07/20/21 [facility] [address] [place] [address] Pharmacist Pharmacist 06/04/21 01/15/22 Cole George LISW Lead Production Drilling Machine Operator 06/13/21 10/07/21 Fletcher Up Community Health Worker 06/13/21 09/12/21 Bautista Casey MD [address] [place] [address] Assigned Heart and Vascular Provider 07/21/21 01/16/23 Jasmyn Oliver CHW Community Health Worker 09/13/21 10/07/21 [facility] [address] [place] [address] Assigned MTM Pharmacist 03/22/22 01/02/23 documented as of this encounter
--- OUTSIDE RECORDS SUMMARY | 2024-12-16 22:26 | XMS_ITS | Encounter Summary ---
Author Organization [place] Address [address] [facility] [address] Care Team Providers Care Retail Commission Sales Associate Name Role Phone Carlie Wang MD Primary Care Provide r Angella Mendieta MD Primary Care Provider Julito Banuelos MD Primary Care Provider [phone] Julito Banuelos MD Unavailable Julito Banuelos MD Unavailable Aleshia Henriquez RD Unavailable Unavailable Mary Kay Jones [facility] Unavailable Unavailable Susannah Blankenship [facility] Unavailable [phone] Carolyn Huynh [facility] Unavailable [phone] Vika Kevin APRN JUNIOR UNDERWRITER Unavailable + Marilyn Willard MD Unavailable Carie Varela DO Unavailable Maylin May NP Unavailable [phone] Marisa Hernandez RN Unavailable Unavailable Vilma Long MD Unavailable Yasmeen Pendleton [facility] Unavailable [phone] Cole George Unavailable Fletcher Russell Unavailable Unavailable Ip, Bautista Bell MD Unavailable [phone] Jasmyn Oliver [facility] Unavailable [phone] Vika Kevin APRN [facility] Primary Care Prov ider Vika Kevin APRN [facility] Primary Care Prov ider Yasmeen Pendleton [facility] Unavailable + [phone] Vika Kevin APRN [facility] Primary Care Prov ider Encounter Details Date Type Department Care Team (Late st Contact Info) Description 03/10/2014 Office Visit-[facility] Heart [address] [place] [address] Jaimee Donald MD HEART [place] [id number] Social History Tobacco Use Types Packs/Day Years Used Date Smoking Tobacco: Former Cigarettes 0.3 15 0 10/26/1961 - 10/26/1976 Smokeless Tobacco: Never Alcohol Use Standard Drinks/Week Comments Yes 0 (1 standard drink = 0.6 oz pur e alcohol) 1-2 glasses of wine weekly Comments No Sex and Gender Information Value Date Recorded Sex Assigned at Not on file Legal 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 CORE FITTER Gender Identity Not on file Sexual Orientation Not on file Occupation Industry Job Start Date Job End Date Not on file Not on file Not on file Not on file documented as of this encounter Progress Notes * Jaimee Donald MD - 03/13/2014 3:02 PM CDT Progress Note Created by: Jaimee Donald M.D. [id number] DATE: 03/10/2014 MARIALUISA COSBY DATE OF : 1940 AGE: [age] years old Referring Physician: CARLIE WANG Referring Clinic: [facility] CURRENT DIAGNOSES 1. Diabetes Zcquzacz-Uxi-Cssueby Dependent, 250.00 2. - Hyperlipidemia mixed, 272.2 3. - Hypertension, 401.1 4. - CAD, 414.00 5. Palpitations, 785.1 ALLERGIES lisinopril Nitrofurantoin Nitrofurantoin Macrocrystal pramipexole Di-HCl Sulfasalazine tolterodine tartrate zolpidem tartrate MEDICATIONS (prior to changes made today) 1. Asmanex Twisthaler 220 mcg (120 doses) Aerosol Powdr [facility] ActivIn, Take as Directed 2. aspirin, buffered 81 [...] daily 10. Nasacort AQ 55 mcg Aerosol, [place], Take as Directed 11. Plavix 75 mg tablet, 1 p.o. daily 12. pravastatin 40 mg tablet, 1 p.o. daily 13. Singulair 10 mg tablet, 1 p.o. daily 14. Synthroid 50 mcg tablet, 1 p.o. daily 15. trimethoprim 100 mg tablet, 1 p.o. daily 16. Xopenex HFA 45 mcg/actuation HFA Aerosol Inhaler, Take as Directed 17. Unknown depression med started 3 weeks ago CHIEF COMPLAINTS HISTORY OF PRESENT ILLNESS This is a follow-up visit. Ms. Cosby is a pleasant 73-year-old lady who comes in routine follow-up. She has known coronary artery disease having had a non-ST elevation [place] in [place] in December 2012with PCI to the proximal mid circumflex. Apparently the executive wellness programs director recommended lifelong Plavix. She has hypertension, diabetes mellitus, dyslipidemia and asthma. She has history of palpitations apparently related to sinus tachycardia on most recent event monitor. She comes today complaining of spells of occasional malaise and almost a light-headedness that lasts 1 to 1-1/2 hours. There are no clear palpitations associated, no chest pain or shortness of breath. She had three episodes last weekand it started about three weeks ago. Yesterday was the most recent. She states that she has checked her sugars during these episodes, but not her heart rates and blood pressure. She also notes that occasionally she feels like her heart rate is up and wonders if she can take more metoprolol in thatcase. Of note, coinciding with the spells of malaise and almost light-headedness she did start a new depression medication three weeks ago, the name of which she cannot recall. PAST HISTORY Past Medical Illnesses: asthma, HTN, hypothyoidism, diabetes, hyperlipidemia, major depression, anxiety, hypertension, Restless Leg syndrome Past Cardiac Illnesses: CAD, s/p [place] Surgeries/Procedures - General: hysterectomy, tonsillectomy Cardiac/Vasc Procedures-Invasive: left heart cath 12/2012 ([place]) Cardiology Procedures-NonInvasive: echocardiogram Jun 2007, myocardial perfusion (Nuc) Jun 2007, echo 12/2012 ([place]), stress echo February 2013 Cardiac Cath Results: 12/2012 [place] Resolute NELIA to the mid and prox [...] - does not smoke; Diet - low cholesterol, caffeine use-1-2 per day and decaf; Lifestyle - , drives car and active lifestyle; Exercise - exercises regularly and 3 days per pt; Seat Belt Use - always; 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 EYES wears eye glasses/contact lenses EARS, NOSE, THROAT, MOUTH partial hearing loss left ear RESPIRATORY history of asthma, cough, occ. CARDIOVASCULAR Having funny spells of feeling spacey has had 3 episodes in the last week, per pt - feels light headed , no chest pains , no palpitations ABDOMINAL constipation GENITOURINARY-FEMALE self catheterizations bid, urethral dilatations q3wks MUSCULOSKELETAL denies any history of arthritic symptoms or back problems. NEUROLOGICAL headaches, occ. PSYCHIATRIC depression controlled with medication ENDOCRINE hypothyroidism, non-insulin dependent diabetes mellitus HEMATOLOGICAL/IMMUNOLOGIC seasonal allergies, takes allergy shots, allergies get worse in [place] but they can get bad in [place] too PHYSICAL EXAMINATION VITAL SIGNS: Blood Pressure: 120/78Sitting, Left arm, large cuff Pulse- 63.00/min. Weight- 211.90 lbs. Height- 67.00 BMI Measurement: 33 CONSTITUTIONAL well developed, well nourished, in no acute distress SKIN warm and dry to touch, no apparent skin lesions or masses noted HEAD normocephalic, no palpable masses, no tenderness, normal female hair pattern EYES conjunctivae and lids unremarkable, PERRL, EOMS intact without nystagmus ENT ears, Nose and throat reveal no gross abnormalities, no pallor or cyanosis, mucous membranes moist NECK no JVD or bruits, carotids normal in upstroke, volume and contour CHEST clear to auscultation, no adventitious sounds. CARDIAC S1, S2 regula without appreciable murmurs, rub or gallops. Distant heart sounds, however. No palpable lifts. PMI nonpalpable ABDOMEN Soft, nontender, no palpable masses, normal bowel sounds, no audible bruits PERIPHERAL PULSES radial pulse(s) 3+ EXTREMITIES & BACK no pitting edema noted. Compression stocking worn PSYCHIATRIC oriented to time, place, and person NEUROLOGICAL no gross motor or sensory deficits noted MEDICATIONS UPDATED/STARTED TODAY: MEDICATIONS REFILLED/STOPPED TODAY: Seroquel 50 mg tablet 4 p.o. daily #0 (Zero) Other Physician Order IMPRESSIONS/PLAN A pleasant 73-year-old lady with history as outlined above. She is having spells of a vague malaiseand spacy feeling that she thinks may almost be light- headedness, but no clear syncope or presyncope. This started coincident with starting a new medication for depression, the name of which she cannot recall. EKG today shows sinus rhythm at 59 beats per minute with first degree AV block. There areinferior Q waves. There are low anterior forces. This has not appreciably changed from last EKG from November of this year. We will go ahead and order an event monitor, although the symptoms are quite unusual for having a cardiac etiology. She has had a recent BMP, which was normal, so was her thyroid hormone. We will check magnesium and CK. She states she will call in with the name of her depression medication and alsowill contact her psychiatrist with her symptoms at my request. Further recommendations will be pending the results of her event monitor. Total time was 35 minutes, 30 in coordination of care and counseling. TODAYS ORDERS 1. 12 Lead EKG Today 2. CK Level Today 3. Magnesium Today 4. Ridges Equimed Event Monitor Automatic Wireless Transmission Jaimee Donald M.D. documented in this encounter Plan of Treatment Not on file documented as of this encounter Visit Diagnoses Not on filedocumented in this encounter Additional Health Concerns Infection Onset Date Last Indicated Resolved Time Rule Out COVID-19 07/25/2020 07/25/2020 07/26/2020 3:02 PM CDT Rule Out COVID-19 12/04/2020 12/04/2020 12/05/2020 6:04 PM CORE FITTER documented as of this encounter Care Teams Retail Commission Sales Associate Relationship Specialty Start Date End Date Carlie Wang MD [address] [place] [address] PCP - General Pediatrics 01/30/14 07/17/15 Angella Mendieta MD [address] [place] [address] [id number] PCP - General Family Practice 07/18/15 09/11/15 Julito Banuelos MD [address] [place] [address] PCP - General Family Practice 09/12/15 09/23/21 Julito Banuelos MD [address] [place] [address] 366[address] PCP - Assigned PCP 02/17/16 12/28/18 Vika Kevin APRN JUNIOR UNDERWRITER [address] [place] [address] [id number] PCP - General Nurse Practitioner - Family 09/24/21 03/05/22 Vika Kevin APRN JUNIOR UNDERWRITER [address] [place] [address] PCP - General Nurse Practitioner - Family 03/18/22 06/18/22 Vika Kevin APRN JUNIOR UNDERWRITER [address] [place] [address] [id number] PCP - General Nurse Practitioner - Family 07/24/22 Julito Banuelos MD [address] [place] [address] [id number] Assigned PCP 02/17/16 07/21/[address] [place] [address] 24660 Systems Administrator Dietitian, Registered 04/14/19 Mary Kay Jones, [facility] Pharmacist 08/01/19 04/20/20 Susannah Blankenship, [facility] [address] [place] [address] [address] [place], [place] 822[address] Pharmacist Pharmacist 08/08/19 04/15/21 Carolyn Huynh [facility] [address] [place], [place] [address] Pharmacist Pharmacist 06/25/20 04/15/21 Vika Kevin APRN JUNIOR UNDERWRITER [address] [place] [address] [id number] Assigned PCP 07/22/20 11/16/24 Marilyn Willard MD [address] [address] Assigned Surgical Provider 08/17/20 08/16/24 Carie Varela DO [address] [place] [address] Assigned Heart and Vascular Provider 08/17/20 01/19/21 Maylin May, JENNY [address] [place] [address] Assigned Pediatric Specialist Provider 12/16/20 06/13/22 Marisa Rodrigues, RN Clinic Board Mill Supervisor 01/15/21 02/26/21 Vilma Long MD [address] [place] [address] Assigned Heart and Vascular Provider 01/20/21 07/20/21 Yasmeen Pendleton [facility] [address] [place] [address] [id number] Pharmacist Pharmacist 06/04/21 01/15/22 Cole George LISW Lead Board Mill Supervisor 06/13/21 10/07/21 Fletcher Up Community Health Worker 06/13/21 09/12/21 Bautista Casey MD [address] [place] [address] Assigned Heart and Vascular Provider 07/21/21 01/16/23 Jasmyn Oliver CHW Community Health Worker 09/13/21 10/07/21 Yasmeen Pendleton [facility] [address] [place] [address] Assigned MTM Pharmacist 03/22/22 01/02/23 documented as of this encounter
[2024-12-16 22:35] VITALS: BP 164/67; PULSE 55; RESP 16; TEMP 36.3; O2SAT 97
--- NOTE | 2024-12-16 22:43 | CRLHL7_ITS ---
For Patients: As a result of the Cures Act, medical imaging exams and procedure reports are released immediately into your electronic medical record. You may view this report before your referring provider. If you have questions, please contact your health care provider. INDICATION: Cough, chest pain TECHNIQUE: Chest radiograph 2 views COMPARISON: None FINDINGS: Mediastinum: Moderate atherosclerotic calcifications are noted in the coronary arteries. The cardiac silhouette is at upper limits of normal in size. Lung: The left apex is obscured by the patient`s chin and the right lateral lung base is excluded. Both lungs are unremarkable in appearance. No sign of pleural effusion seen. No pneumothorax is identified. Bone and Soft tissue: Unremarkable for age. IMPRESSION: 1. Moderate atherosclerotic calcifications are noted in the coronary arteries. Dictated by Tesfaye Tang MD @ 12/16/2024 11:43:03 PM Dictated by: Tesfaye Tang MD @ 12/16/2024 23:43:09 (Electronically Signed)
--- OUTSIDE RECORDS SUMMARY | 2024-12-16 22:56 | XMS_ITS | Encounter Summary ---
Author Organization [place] Address [address] [facility] [place] [address] Care Team Providers Care Residency Coordinator Name Role Phone Andrew Lu MD Primary Care Provider [phone] Niko Resendiz MD Primary Care Provider Carlie Mac MD Primary Care Provide r Angella Mendieta MD Primary Care Provider Julito Banuelos MD Primary Care Provider [phone] Julito Banuelos MD Unavailable Julito Banuelos MD Unavailable Aleshia Henriquez RD Unavailable Unavailable Mary Kay Jones [facility] Unavailable Unavailable Susannah Blankenship [facility] Unavailable [phone] Carolyn Huynh [facility] Unavailable [phone] Vika Kevin APRN BLENDING MACHINE FEEDER Unavailable + Marilyn Willard MD Unavailable [phone] Carie Varela DO Unavailable [phone] Maylin May NP Unavailable [phone] Marisa Rodrigues RN Unavailable Unavailable Vilma Long MD Unavailable + [phone] Yasmeen Pendleton [facility] Unavailable [phone] Cole George Unavailable Fletcher Russell Unavailable Unavailable Bautista Casey MD Unavailable [phone] AnnyJasmyn tracey [facility] Unavailable [phone] iVka Kevin APRN [facility] Primary Care Prov ider Vika Kevin APRN [facility] Primary Care Prov ider Yasmeen Pendleton [facility] Unavailable [phone] Vika Kevin APRN [facility] Primary Care Prov ider Reason for Visit * Reason Onset Date Comments Refill Request 05/02/2012 Encounter Details Date Type Department Care Team (Late st Contact Info) Description 05/02/2012 MyC Refill [address] [address] Andrew Lu MD XXX RETIRED XXX [address] [place] [address] Refill Request Social History Tobacco Use [...] on file Legal 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 SIGN BUILDER Gender Identity Not on file Sexual Orientation [...] capsule [Andrew Lu MD, MD] Preferred pharmacy: [facility] [place] Comment: documented in this encounter Plan of Treatment Not on file documented as of this encounter Visit Diagnoses Diagnosis Cellulitis of leg- Primary Cellulitis and abscess of leg, except foot documented in this encounter Additional Health Concerns Infection Onset Date Last Indicated Resolved Time Rule Out COVID-19 07/25/2020 07/25/2020 07/26/2020 3:02 PM CDT Rule Out COVID-19 12/04/2020 12/04/2020 12/05/2020 6:04 PM SIGN BUILDER documented as of this encounter Care Teams Residency Coordinator Relationship Specialty Start Date End Date Andrew Lu MD XXX RETIRED XXX [address] [place] [address] PCP - General 12/10/01 01/10/14 Niko Resendiz MD [address] [place] [address] PCP - General Internal Medicine 01/11/14 01/29/14 Carlie Mac MD [address] [place] [address] PCP - General Pediatrics 01/30/14 07/17/15 Angella Mendieta MD [address] [place] [address], [place] [address] PCP - General Family Practice 07/18/15 09/11/15 Julito Banuelos MD [address] [place] [address] PCP - General Family Practice 09/12/15 09/23/21 Julito Banuelos MD [address] [place] [address], [place] [address] PCP - Assigned PCP 02/17/16 12/28/18 Vika Kevin APRN BLENDING MACHINE FEEDER [address] [place] [address] PCP - General Nurse Practitioner - Family 09/24/21 03/05/22 Vika Kevin APRN BLENDING MACHINE FEEDER [address] [place] [address] PCP - General Nurse Practitioner - Family 03/18/22 06/18/22 Vika Kevin APRN BLENDING MACHINE FEEDER [address] [place] [address] PCP - General Nurse Practitioner - Family 07/24/22 Julito Banuelos MD [address] [place] [address] Assigned PCP 02/17/16 07/21/[address] [place] [address] Energy Advisor Dietitian, Registered 04/14/19 Mary Kay Jones, [facility] Pharmacist 08/01/19 04/20/20 Susannah Blankenship, [facility] [address] [facility] [address] [place], [place] [address] Pharmacist Pharmacist 08/08/19 04/15/21 Carolyn Huynh, [facility] [address] [place] [address] Pharmacist Pharmacist 06/25/20 04/15/21 Vika Kevin, CANTEEN OPERATOR BLENDING MACHINE FEEDER [address] [place] [address] [id number] Assigned PCP 07/22/20 11/16/24 Marilyn Willard MD [address] [facility] [address] [place], [place] [address] Assigned Surgical Provider 08/17/20 08/16/24 Carie Varela DO [address] [place] [address] Assigned Heart and Vascular Provider 08/17/20 01/19/21 Maylin May NP [address] [place], [place] [id number] Assigned Pediatric Specialist Provider 12/16/20 06/13/22 Marisa Rodrigues, RN Clinic Process Artist 01/15/21 02/26/21 Vilma Long MD [address] [place] [id number] Assigned Heart and Vascular Provider 01/20/21 07/20/21 Yasmeen Pendleton, [facility] [address] [place] [address] Pharmacist Pharmacist 06/04/21 01/15/22 Cole George LISW Lead Process Artist 06/13/21 10/07/21 Fletcher Up Community Health Worker 06/13/21 09/12/21 Bautista Casey MD [address] [place] [address] Assigned Heart and Vascular Provider 07/21/21 01/16/23 Jasmyn Oliver CHW [facility] Health Worker 09/13/21 10/07/21 Yasmeen Pendleton [facility] [address] [place] [address] Assigned MTM Pharmacist 03/22/22 01/02/23 documented as of this encounter
--- OUTSIDE RECORDS SUMMARY | 2024-12-16 22:56 | XMS_ITS | Encounter Summary ---
Author Organization [place] Address [address] [facility] [place] [address] Care Team Providers Care Receiver Setter Name Role Phone Julito Banuelos MD Primary Care Provider [phone] Julito Banuelos MD Unavailable Aleshia Henriquez RD Unavailable Unavailable Mary Kay Jones [facility] Unavailable Unavailable Susannah Blankenship [facility] Unavailable Carolyn Huynh [facility] Unavailable [phone] Vika Kevin APRN TEXTILE DESIGNS SALES REPRESENTATIVE Unavailable + Marilyn Willard MD Unavailable Carie Varela DO Unavailable [phone] Maylin May NP Unavailable [phone] Marisa Hernandez RN Unavailable Unavailable Vilma Long MD Unavailable Yasmeen Pendleton [facility] Unavailable Cole George Unavailable Fletcher Russell Unavailable Unavailable Bautista Casey MD Unavailable Jasmyn Oliver [facility] Unavailable [phone] Vika Kevin APRN TEXTILE DESIGNS SALES REPRESENTATIVE Primary Care Prov ider Vika Kevin APRN [facility] Primary Care Prov ider Yasmeen Pendleton [facility] Unavailable [phone] Vika Kevin APRN [facility] Primary Care Prov ider Encounter Details Date Type Department Care Team (Late st Contact Info) Description 02/13/2020 MyC Medical Advice [address] [place] [address] Mary Kay Jones, [facility] Social History Tobacco Use Types Packs/Day Years [...] on file Legal 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 LABORATORY TECHNOLOGIST Gender Identity Not on file Sexual [...] Out COVID-19 12/04/2020 12/04/2020 12/05/2020 6:04 PM LABORATORY TECHNOLOGIST Assessment Noted Time PHQ-9 Depression Total Score: 8 07/18/20 19 12:06 PM CDT documented as of this encounter Care Teams Receiver Setter Relationship Specialty [place] [address] [place] [address] PCP - General Family Practice 09/12/15 09/23/21 Vika Kevin APRN TEXTILE DESIGNS SALES REPRESENTATIVE [address] [place] [address] [id number] PCP - General Nurse Practitioner - Family 09/24/21 03/05/22 Vika Kevin APRN TEXTILE DESIGNS SALES REPRESENTATIVE [address] [place] [address] [id number] PCP - General Nurse Practitioner - Family 03/18/22 06/18/22 Vika Kevin APRN TEXTILE DESIGNS SALES REPRESENTATIVE [address] [place] [address] PCP - General Nurse Practitioner - Family 07/24/22 Julito Banuelos MD [address] [place] [address] [id number] Assigned PCP 02/17/16 07/21/[address] [place] [address] Card Cleaner Dietitian, Registered 04/14/19 Mary Kay Jones [facility] Pharmacist 08/01/19 04/20/20 Susannah Blankenship [facility] [address] [place] [address] [address] [place], [place] [phone] Pharmacist Pharmacist 08/08/19 04/15/21 Carolyn Huynh [facility] [address] [place] [address] Pharmacist Pharmacist 06/25/20 04/15/21 Vika Kevin APRN TEXTILE DESIGNS SALES REPRESENTATIVE [address] [place] [address] Assigned PCP 07/22/20 11/16/24 Marilyn Willard MD [address] [place] [address] [address] [place] [address] Assigned Surgical Provider 08/17/20 08/16/24 Carie Varela DO [address] [place] [address] Assigned Heart and Vascular Provider 08/17/20 01/19/21 Maylin May NP [address] [place] [address] Assigned Pediatric Specialist Provider 12/16/20 06/13/22 Marisa Rodrigues, RN Clinic Billposter 01/15/21 02/26/21 Vilma Long MD [address] [place] [address] Assigned Heart and Vascular Provider 01/20/21 07/20/21 Yasmeen Pendleton [facility] [address] [place] [address] Pharmacist Pharmacist 06/04/21 01/15/22 Cole George LISW Lead Billposter 06/13/21 10/07/21 Fletcher Up Community Health Worker 06/13/21 09/12/21 Bautista Casey MD [address] [place] [address] Assigned Heart and Vascular Provider 07/21/21 01/16/23 Jasmyn Oliver CHW Community Health Worker 09/13/21 10/07/21 Yasmeen Pendleton, [facility] [address] [place] [address] Assigned MTM Pharmacist 03/22/22 01/02/23 documented as of this encounter
--- OUTSIDE RECORDS SUMMARY | 2024-12-16 22:56 | XMS_ITS | Encounter Summary ---
Author Organization [place] Address [address] [place] [address] Care Team Providers Care Deflector Operator Name Role Phone Julito Banuelos MD Primary Care Provider [phone] Julito Banuelos MD Unavailable Aleshia Henriquez RD Unavailable Unavailable Mary Kay Jones [facility] Unavailable Unavailable Susannah Blankenship [facility] Unavailable Carolyn Huynh [facility] Unavailable [phone] Vika Kevin APRN ONCOLOGY TRANSPLANT NETWORK MANAGER Unavailable + Marilyn Willard MD Unavailable Carie Varela DO Unavailable [phone] Maylin May NP Unavailable [phone] Marisa Hernandez RN Unavailable Unavailable Vilma Long MD Unavailable Yasmeen Pendleton [facility] Unavailable Cole George Unavailable Fletcher Russell Unavailable Unavailable Bautista Casey MD Unavailable [phone] Jasmyn Oliver CHW Unavailable [phone] Vika Kevin APRN ONCOLOGY TRANSPLANT NETWORK MANAGER Primary Care Prov ider Vika Kevin APRN, CNP Primary Care Prov ider Yasmeen Pendleton [facility] Unavailable [phone] Vika Kevin APRN ONCOLOGY TRANSPLANT NETWORK MANAGER Primary Care Prov ider Encounter Details Date Type Department Care Team (Late st Contact Info) Description 08/01/2019 MyC Medical Advice [address] [place] [phone] Mary Kay Jones, [facility] Social History Tobacco Use Types Packs/Day Years [...] on file Legal 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 EGG AND SPICE MIXER Gender Identity Not on file Sexual Orientation [...] Out COVID-19 12/04/2020 12/04/2020 12/05/2020 6:04 PM EGG AND SPICE MIXER Assessment Noted Time PHQ-9 Depression Total Score: 8 07/18/20 19 12:06 PM CDT documented as of this encounter Care Teams Deflector Operator Relationship Specialty Start Date End Date Julito Banuelos MD [address] [place] [address] PCP - General Family Practice 09/12/15 09/23/21 Vika Kevin APRN [facility] [address] [place] [address] 12316 PCP - General Nurse Practitioner - Family 09/24/21 03/05/22 Vika Kevin APRN ONCOLOGY TRANSPLANT NETWORK MANAGER [address] [place] [address] 94218 PCP - General Nurse Practitioner - Family 03/18/22 06/18/22 Vika Kevin APRN ONCOLOGY TRANSPLANT NETWORK MANAGER [address] [place] [address] 884222 PCP - General Nurse Practitioner - Family 07/24/22 Julito Banuelos MD [address] [place] [address] 466272 Assigned PCP 02/17/16 07/21/[address] [place] [address] 9[address]60 Line Producer Dietitian, Registered 04/14/19 Mary Kay Jones, [facility] Pharmacist 08/01/19 04/20/20 Susannah Blankenship, [facility] [address] [place] [address] [address] [place] [address] Pharmacist Pharmacist 08/08/19 04/15/21 Carolyn Huynh [facility] [address] [place], [place] [address] Pharmacist Pharmacist 06/25/20 04/15/21 Vika Kevin APRN ONCOLOGY TRANSPLANT NETWORK MANAGER [address] [place] [address]99 Assigned PCP 07/22/20 11/16/24 Marilyn [place] MD [address] [facility] [address] [place] [address] Assigned Surgical Provider 08/17/20 08/16/24 Carie Varela DO [address] [place] [address] Assigned Heart and Vascular Provider 08/17/20 01/19/21 Maylin May, JENNY [address] [place], [place] [id number] Assigned Pediatric Specialist Provider 12/16/20 06/13/22 Marisa Rodrigues RN Clinic Tire Shop Manager 01/15/21 02/26/21 Vilma Long MD [address] [place] [address] Assigned Heart and Vascular Provider 01/20/21 07/20/21 Yasmeen Pendleton [facility] [address] [place] [address] Pharmacist Pharmacist 06/04/21 01/15/22 Cole George LISW Lead Tire Shop Manager 06/13/21 10/07/21 Fletcher Up Community Health Worker 06/13/21 09/12/21 Bautista Casey MD [address] [place] [address] Assigned Heart and Vascular Provider 07/21/21 01/16/23 Jasmyn Oliver CHW Community Health Worker 09/13/21 10/07/21 Yasmeen Pendletno [facility] [address] [place] [address] Assigned MTM Pharmacist 03/22/22 01/02/23 documented as of this encounter
--- OUTSIDE RECORDS SUMMARY | 2024-12-16 22:56 | XMS_ITS | Encounter Summary ---
Author Organization [place] Address [address] [facility] [address] Care Team Providers Care Sweet Pickle Maker Name Role Phone Aleshia Henriquez RD Unavailable Unavailable Vika Kevin APRN RETORT FORKER Unavailable + Marilyn [place]ard MD Unavailable [phone] Maylin May NP Unavailable [phone], Bautista Bell MD Unavailable [phone] Vika Kevin APRN [facility] Primary Care Prov ider Vika Kevin APRN [facility] Primary Care Prov ider Yasmeen Pendleton [facility] Unavailable + [phone] Vika Kevin APRN [facility] Primary Care Prov ider Encounter Details Date Type Department Care Team (Late st Contact Info) Description 02/12/[address] [facility] [place] [address] [place] [address] Marilyn Chaves Social History Tobacco [...] and Family Not on file 06/14/2021 Attends Shinto Services Not on file 06/14 Active Member [...] place to sleep or slept in a detention (including now)? 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 WIRE STRANDER Gender Identity Not on file Sexual Orientation [...] documented as of this encounter Care Teams Sweet Pickle Maker Relationship Specialty Start Date End Date Vika Kevin APRN RETORT FORKER [address] [place] [address] PCP - General Nurse Practitioner - Family 09/24/21 03/05/22 Vika Kevin APRN RETORT FORKER [address] [place] [address] 13103 PCP - General Nurse Practitioner - Family 03/18/22 06/18/22 Vika Kevin APRN RETORT FORKER [address] [place] [address] PCP - General Nurse Practitioner - Family 07/24/[address] Counsel Dietitian, Registered 04/14/19 Vika Kevin, JAIME RETORT FORKER [address] [place] [address] Assigned PCP 07/22/20 11/16/24 Marilyn [place] MD [address] [place] [address] Assigned Surgical Provider 08/17/20 08/16/24 Maylin May, JENNY [address] [place] [address] Assigned Pediatric Specialist Provider 12/16/20 06/13/22 Bautista Casey MD [address] [place] [address] Assigned Heart and Vascular Provider 07/21/21 01/16/23 Yasmeen Pendleton, [facility] [address] [place] [address] Assigned MTM Pharmacist 03/22/22 01/02/23 documented as of this encounter
--- OUTSIDE RECORDS SUMMARY | 2024-12-16 22:56 | XMS_ITS | Encounter Summary ---
Author Organization [place] Address [address] [facility] [place] [address] Care Team Providers Care Knifeman Name Role Phone Julito Banuelos MD Primary Care Provider [phone] Julito Banuelos MD Unavailable Aleshia Henriquez RD Unavailable Unavailable Mary Kay Jones [facility] Unavailable Unavailable Susannah Blankenship [facility] Unavailable [phone] Carolyn Huynh [facility] Unavailable [phone] Vika Kevin APRN ELECTRIC SHAVER MECHANIC Unavailable + Marilyn Willard MD Unavailable [phone] Carie Varela DO Unavailable [phone] Maylin May NP Unavailable [phone] Marisa Hernandez RN Unavailable Unavailable Vilma Long MD Unavailable Yasmeen Pendleton [facility] Unavailable [phone] Cole George Unavailable Fletcher Russell Unavailable Unavailable Bautista Casey MD Unavailable Jasmyn Oliver CHW Unavailable [phone] Vika Kevin APRN ELECTRIC SHAVER MECHANIC Primary Care Prov ider Vika Kevin APRN [facility] Primary Care Prov ider Yasmeen Pendleton [facility] Unavailable [phone] Vika Kevin APRN [facility] Primary Care Prov ider Reason for Visit * Reason Onset Date Comments Refill Request 09/22/2019 Encounter Details Date Type Department Care Team (Late st Contact Info) Description 09/22/2019 MyC Refill [facility] [address] [facility] [address] [place] [phone] Carie Varela DO [address] [place], [place] [address] Refill Request Social History Tobacco Use Types [...] on file Legal 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 CASEWORKER PROTECTIVE SERVICES Gender Identity Not on file Sexual Orientation Not on file Occupation Industry Job Start Date Job End Date Not on file Not on file Not on file Not on file documented as of this encounter Plan of Treatment Not on file documented as of this encounter Visit Diagnoses Diagnosis Hypertension goal BP (blood pressure) < 140/90 Unspecified essential hypertension Coronary artery disease involving [place] coronary artery of [place] heart without angina pectoris documented in this encounter Additional Health Concerns Infection Onset Date Last Indicated Resolved Time Rule Out COVID-19 07/25/2020 07/25/2020 07/26/2020 3:02 PM CDT Rule Out COVID-19 12/04/2020 12/04/2020 12/05/2020 6:04 PM CASEWORKER PROTECTIVE SERVICES Assessment Noted Time PHQ-9 Depression Total Score: 8 07/18/20 19 12:06 PM CDT documented as of this encounter Care Teams Knifeman Relationship Specialty Start Date End Date Julito Banuelos MD [address] [place] [address] PCP - General Family Practice 09/12/15 09/23/21 Vika Kevin APRN ELECTRIC SHAVER MECHANIC [address] [place] [address] [phone] PCP - General Nurse Practitioner - Family 09/24/21 03/05/22 Vika Kevin APRN ELECTRIC SHAVER MECHANIC [address] [place] [address] 365572 PCP - General Nurse Practitioner - Family 03/18/22 06/18/22 Vika Kevin APRN ELECTRIC SHAVER MECHANIC [address] [place] [address] [phone] PCP - General Nurse Practitioner - Family 07/24/22 Julito Banuelos MD [address] [place] [address] 577672 Assigned PCP 02/17/16 07/21/[address] [place] [address] School Bus Aide Dietitian, Registered 04/14/19 Mary Kay Jones [facility] Pharmacist 08/01/19 04/20/20 Susannah Blankenship [facility] [address] [place] [address] 8[address] [place], [place] [address] Pharmacist Pharmacist 08/08/19 04/15/21 Carolyn Huynh [facility] [address] [place], [place] [address] Pharmacist Pharmacist 06/25/20 04/15/21 KevinVikalotte, TANKER SERVICE ATTENDANT ELECTRIC SHAVER MECHANIC [address] [place], [place] [address] Assigned PCP 07/22/20 11/16/24 Marilyn [place]ard MD [address] [facility] [address] [place], [place] [address] Assigned Surgical Provider 08/17/20 08/16/24 Carie Varela DO [address] [place] [address] Assigned Heart and Vascular Provider 08/17/20 01/19/21 Maylin May NP [address] [place], [place] [address] Assigned Pediatric Specialist Provider 12/16/20 06/13/22 Marisa Rodrigues, RN Clinic Co Founder 01/15/21 02/26/21 Vilma Long MD [address] [place] [address] Assigned Heart and Vascular Provider 01/20/21 07/20/21 Yasmeen Pendleton [facility] [address] [place] [address] Pharmacist Pharmacist 06/04/21 01/15/22 Cole George LISW Lead Co Founder 06/13/21 10/07/21 Fletcher Up Community Health Worker 06/13/21 09/12/21 Bautista Casey MD [address] [place] [address] Assigned Heart and Vascular Provider 07/21/21 01/16/23 Jasmyn Oliver CHW Community Health Worker 09/13/21 10/07/21 Yasmeen Pendleton [facility] [address] [place] [address] Assigned MTM Pharmacist 03/22/22 01/02/23 documented as of this encounter
--- OUTSIDE RECORDS SUMMARY | 2024-12-16 22:56 | XMS_ITS | Encounter Summary ---
Author Organization [place] Address [address] [facility] [place] [address] Care Team Providers Care Atmospheric Drier Tender Name Role Phone Julito Banuelos MD Primary Care Provider [phone] Julito Banuelos MD Unavailable Aleshia Henriquez RD Unavailable Unavailable Mary Kay Jones [facility] Unavailable Unavailable Susannah Blankenship [facility] Unavailable Carolyn Huynh [facility] Unavailable [phone] Vika Kevin APRN JOB SETTER HONING Unavailable + Marilyn Willard MD Unavailable Carie Varela DO Unavailable [phone] Maylin May NP Unavailable [phone] Marisa Hernandez RN Unavailable Unavailable Vilma Long MD Unavailable Yasmeen Pendleton [facility] Unavailable Cole George Unavailable Fletcher Russell Unavailable Unavailable Bautista Casey MD Unavailable Jasmyn Oliver CHW Unavailable [phone] Vika Kevin APRN JOB SETTER [employer]ONING Primary Care Prov ider Vika Kevin APRN [facility] Primary Care Prov ider Yasmeen Pendleton [facility] Unavailable + [phone] Vika Kevin APRN [facility] Primary Care Prov ider Reason for Visit * Reason Onset Date Comments Suspected Covid 02/24/2020 Needs swab testi ng Encounter Details Date Type Department Care Team ([facility] st Contact Info) Description 02/24/[address] [address] Vika Kevin APRN [address] [address] Suspected Covid (Needs swab [...] on file Legal 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 ENGINEERING LIBRARIAN Gender Identity Not on file Sexual Orientation [...] verbalized understanding. YUE Mcdowell, RN, JACINTA Peng [facility] Office: [phone] * Telephone Encounter - Araseli Briceño RN - 02/24/2020 12:26 PM CDT Patient in clinic now for evaluation for sore throat. Provider is recommending Covid-19 swab testing. Patient unable to do Oncare. Routing to [facility] Provider pool ([id number]) to contact patient to set up virtual evaluation and order testing. Any questions call [facility] at [phone]. YUE Mcdowell, RN, JACINTA Peng [facility] Office: [phone] documented in this encounter Plan of Treatment Not on file documented as of this encounter Visit Diagnoses Not on filedocumented in this encounter Additional Health Concerns Infection Onset Date Last Indicated Resolved Time Rule Out COVID-19 07/25/2020 07/25/2020 07/26/2020 3:02 PM CDT Rule Out COVID-19 12/04/2020 12/04/2020 12/05/2020 6:04 PM ENGINEERING LIBRARIAN Assessment Noted Time PHQ-9 Depression Total Score: 8 07/18/20 19 12:06 PM CDT documented as of this encounter Care Teams Atmospheric Drier Tender Relationship Specialty Start Date End Date Julito Banuelos MD [address] [place] [address] PCP - General Family Practice 09/12/15 09/23/21 Vika Kevin APRN JOB SETTER [employer]ONING [address] [place] [address] PCP - General Nurse Practitioner - Family 09/24/21 03/05/22 Vika Kevin APRN JOB SETTER HONING [address] [place] [address] PCP - General Nurse Practitioner - Family 03/18/22 06/18/22 Vika Kevin APRN JOB SETTER HONING [address] [place] [address] PCP - General Nurse Practitioner - Family 07/24/22 Julito Banuelos MD [address] [place] [address] 594402 Assigned PCP 02/17/16 07/21/[address] [place] [address] Silicator Dietitian, Registered 04/14/19 Mary Kay Jones, [facility] Pharmacist 08/01/19 04/20/20 Susannah Blankenship [facility] [address] [facility] [address] [place], [place] [address] Pharmacist Pharmacist 08/08/19 04/15/21 Carolyn Huynh, [facility] [address] [place], [place] [address] Pharmacist Pharmacist 06/25/20 04/15/21 Vika Kevin, JAIME JOB SETTER HONING [address] [place] [address] 622922 Assigned PCP 07/22/20 11/16/24 Marilyn [place] MD [address] [facility] [address] [place], [place] [address] Assigned Surgical Provider 08/17/20 08/16/24 Carie Varela DO [address] [place] [address] Assigned Heart and Vascular Provider 08/17/20 01/19/21 Maylin May NP [address] [place] [address] Assigned Pediatric Specialist Provider 12/16/20 06/13/22 Marisa Rodrigues, RN Clinic Electrician Helper 01/15/21 02/26/21 Vilma Long MD [address] [place] [address] Assigned Heart and Vascular Provider 01/20/21 07/20/21 [facility] [address] [place] [address] Pharmacist Pharmacist 06/04/21 01/15/22 Cole George LISW Lead Electrician Helper 06/13/21 10/07/21 Fletcher Up Community Health Worker 06/13/21 09/12/21 Bautista Casey MD [address] [place] [address] Assigned Heart and Vascular Provider 07/21/21 01/16/23 Jasmyn Oliver CHW Community Health Worker 09/13/21 10/07/21 [facility] [address] [place] [address] Assigned MTM Pharmacist 03/22/22 01/02/23 documented as of this encounter
--- OUTSIDE RECORDS SUMMARY | 2024-12-16 22:56 | XMS_ITS | Encounter Summary ---
Author Organization [place] Address [address] [facility] [place] [address] Care Team Providers Care Utilization Management Manager Name Role Phone Aleshia Henriquez RD Unavailable Unavailable Vika Kevin APRN DIRECTOR DATA ANALYTICS Unavailable + Marilyn Willard MD Unavailable [phone] Bautista Casey MD Unavailable MandYasmeen barreto [facility] Unavailable Vika Kevin APRN DIRECTOR DATA ANALYTICS Primary Care Prov ider Reason for Visit * Reason Onset Date Comments Forms 09/08/2022 [facility] Encounter Details Date Type Department Care Team (Late st Contact Info) Description 09/08/[address] [address] Julito Banuelos MD [address] [place] [address] Forms ([facility]) Social History Tobacco Use Types Packs/Day Years [...] and Family Not on file 06/14/2021 Attends Orthodox Services Not on file 06/14 Active Member [...] on file Legal 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 PHOTOGRAPHY COLORIST Gender Identity Not on file Sexual Orientation Not on file 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 We are no longer PCP here. Care through manager terminal health facility. Vika C. Kevin, CMV DRIVER-BC OGRAPHY COLORIST * Telephone Encounter - Julito Banuelos MD - 09/09/2022 8:47 PM CST Please send forms to current PCP OGRAPHY COLORIST * Telephone Encounter - Maylin Diaz - [...] clinic location was the form placed at?: [facility] Where the form was placed: Dr Banuelos Box/Folder What number is listed as a contact on the form?: [phone] Call taken on 09/08/2022 at 7:12 PM by Maylin Diaz OGRAPHY COLORIST documented in this encounter Plan of Treatment Not on file documented as of this encounter Visit Diagnoses Not on filedocumented in this encounter Additional Health Concerns Assessment Noted Time PHQ-9 Depression Total Score: 10 04/29/ 021 3:56 PM CDT documented as of this encounter Care Teams Utilization Management Manager Relationship Specialty Start Date End Date Vika Kevin APRN DIRECTOR DATA ANALYTICS [address] [place] [address] PCP - General Nurse Practitioner - Family 07/24/[address] Blacktop Spreader Dietitian, Registered 04/14/19 Vika Kevin APRN DIRECTOR DATA ANALYTICS [address] [place] [address] Assigned PCP 07/22/20 11/16/24 Marilyn [place] MD [address] [facility] [address] [place] [address] Assigned Surgical Provider 08/17/20 08/16/24 Bautista Casey MD [address] [place], [place] [address] Assigned Heart and Vascular Provider 07/21/21 01/16/23 Yasmeen Pendleton [facility] [address] [place] [address] 578145 Assigned MTM Pharmacist 03/22/22 01/02/23 documented as of this encounter
--- OUTSIDE RECORDS SUMMARY | 2024-12-16 22:56 | XMS_ITS | Encounter Summary ---
Author Organization [place] Address [address] [facility] [place] [address] Care Team Providers Care Coat Joiner Lockstitch Name Role Phone Julito Banuelos MD Primary Care Provider [phone] Julito Banuelos MD Unavailable Aleshia Henriquez RD Unavailable Unavailable Mary Kay Jones [facility] Unavailable Unavailable Susannah Blankenship [facility] Unavailable Carolyn Huynh [facility] Unavailable [phone] Vika Kevin APRN OFFICE SERVICE COORDINATOR Unavailable + Marilyn Willard MD Unavailable Carie Varela DO Unavailable [phone] Maylin May NP Unavailable [phone] Marisa Hernandez RN Unavailable Unavailable Vilma Long MD Unavailable Yasmeen Pendleton [facility] Unavailable Cole George Unavailable Fletcher Russell Unavailable Unavailable Bautista Casey MD Unavailable Jasmyn Oliver CHW Unavailable [phone] Vika Kevin APRN OFFICE SERVICE COORDINATOR Primary Care Prov ider Vika Kevin APRN [facility] Primary Care Prov ider Yasmeen Pendleton [facility] Unavailable + [phone] Vika Kevin APRN [facility] Primary Care Prov ider Reason for Visit * Reason Comments Medication Refill Encounter Details Date Type Department Care Team (Late st Contact Info) Description 02/23/[address] [phone] [place] [address] [place] [address] Medication Refill Social History Tobacco Use [...] on file Legal 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 PATIENT CARE NURSING ASSISTANT Gender Identity Not on file Sexual [...] review/approval because: Age Range Nazanin Zhong RN [facility] documented in this encounter Plan of Treatment [...] Out COVID-19 12/04/2020 12/04/2020 12/05/2020 6:04 PM PATIENT CARE NURSING ASSISTANT Assessment Noted Time PHQ-9 Depression Total Score: 8 07/18/20 19 12:06 PM CDT documented as of this encounter Care Teams Coat Joiner Lockstitch Relationship Specialty Start Date End Date Julito Banuelos MD [address] [place] [address]697 PCP - General Family Practice 09/12/15 09/23/21 Vika Kevin APRN OFFICE SERVICE COORDINATOR [address] [place] [address] 27590 PCP - General Nurse Practitioner - Family 09/24/21 03/05/22 Vika Kevin APRN OFFICE SERVICE COORDINATOR [address] [place] [address] 45180 PCP - General Nurse Practitioner - Family 03/18/22 06/18/22 Vika Kevin APRN OFFICE SERVICE COORDINATOR [address] [place] [address] 50844 PCP - General Nurse Practitioner - Family 07/24/22 Julito Banuelos MD [address] [place] [address] 80935 Assigned PCP 02/17/16 07/21/[address] [place] [address] 65900 Offset Proof Press Operator Dietitian, Registered 04/14/19 Mary Kay Jones, [facility] Pharmacist 08/01/19 04/20/20 Susannah Blankenship, [facility] [address] [facility] [address] [place], [place] [address] Pharmacist Pharmacist 08/08/19 04/15/21 Carolyn Huynh, [facility] [address] [place] [address] Pharmacist Pharmacist 06/25/20 04/15/21 Vika Kevin, SENIOR TECHNICAL SUPPORT ANALYST OFFICE SERVICE COORDINATOR [address] [place] [address] 410562 Assigned PCP 07/22/20 11/16/24 Marilyn Willard MD [address] [facility] [address] [place], [place] [address] Assigned Surgical Provider 08/17/20 08/16/24 Carie Varela DO [address] [place] [id number] Assigned Heart and Vascular Provider 08/17/20 01/19/21 Maylin May NP [address] [place], [place] [id number] Assigned Pediatric Specialist Provider 12/16/20 06/13/22 Marisa Rodrigues, RN Clinic Procurement Assistant 01/15/21 02/26/21 Vilma Long MD [address] [place] [id number] Assigned Heart and Vascular Provider 01/20/21 07/20/21 Yasmeen Pendleton, [facility] [address] [place] [address] Pharmacist Pharmacist 06/04/21 01/15/22 Cole George LISW Lead Procurement Assistant 06/13/21 10/07/21 Fletcher Up Community Health Worker 06/13/21 09/12/21 Bautista Casey MD [address] [place] [address] Assigned Heart and Vascular Provider 07/21/21 01/16/23 Jasmyn Oliver CHW [facility] Health Worker 09/13/21 10/07/21 Yasmeen Pendleton [facility] [address] [place] [address] Assigned MTM Pharmacist 03/22/22 01/02/23 documented as of this encounter
--- OUTSIDE RECORDS SUMMARY | 2024-12-16 22:56 | XMS_ITS | Encounter Summary ---
Author Organization [place] Address [address] [facility] [place] [address] Care Team Providers Care Glue Mill Operator Name Role Phone Andrew Lu MD Primary Care Provider [phone] Niko Resendiz MD Primary Care Provider Carlie Mac MD Primary Care Provide r Angella Mendieta MD Primary Care Provider Julito Banuelos MD Primary Care Provider [phone] Julito Banuelos MD Unavailable Julito Banuelos MD Unavailable Aleshia Henriquez RD Unavailable Unavailable Mary Kay Jones [facility] Unavailable Unavailable Susannah Blankenship [facility] Unavailable [phone] Carolyn Huynh [facility] Unavailable [phone] Vika Kevin APRN PONY TRIMMER Unavailable + Marilyn Willard MD Unavailable [phone] Carie Varela DO Unavailable [phone] Maylin May NP Unavailable [phone] Marisa Rodrigues RN Unavailable Unavailable Vilma Long MD Unavailable + [phone] Yasmeen Pendleton [facility] Unavailable + [phone] Cole George Unavailable Fletcher Russell Unavailable Unavailable Bautista Casey MD Unavailable [phone] Jasmyn Oliver [facility] Unavailable [phone] Vika Kevin APRN [facility] Primary Care Prov ider Vika Kevin APRN [facility] Primary Care Prov ider Yasmeen Pendleton [facility] Unavailable [phone] Vika Kevin APRN [facility] Primary Care Prov ider Reason for Referral * Referral not Required - Closed Specialty Diagnoses / Procedures Referred By Contkateryna t Referred To Contact Diagnoses CAD (coronary artery disease) Andrew Lu MD XXX RETIRED XXX [address] [place] [phone] Phone: tel: fax: [facility] [address] [facility] [address] [place] [address] Phone: tel: fax: Referral ID Status Reason Start Date Expiration Date Visits Re quested Visits Authorized [id number] Closed 01/11/2013 07/10/2013 1 1 Comments Your provider has referred you to: [facility]: [facility] Heart Karen [phone] Please be aware that coverage of these [...] where they were done to arrange for spanish moss picker prior to your scheduled appointment. Any new CT, MRI or other procedures ordered by your specialist must be performed at a [place] facility or coordinated by your clinic's referral office. 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 MODEL BUILDER Gender Identity Not on file Sexual [...] Coronary atherosclerosis of unspecified type of vessel, [place] or graft documented in this encounter Additional Health Concerns Infection Onset Date Last Indicated Resolved Time Rule Out COVID-19 07/25/2020 07/25/2020 07/26/2020 3:02 PM CDT Rule Out COVID-19 12/04/2020 12/04/2020 12/05/2020 6:04 PM MODEL BUILDER documented as of this encounter Care Teams Glue Mill Operator Relationship Specialty Start Date End Date Andrew Lu MD XXX RETIRED XXX [address] [place] [phone] PCP - General 12/10/01 01/10/14 Niko Resendiz MD [address] [address] PCP - General Internal Medicine 01/11/14 01/29/14 Carlie Mac MD [address] [place] [address] PCP - General Pediatrics 01/30/14 07/17/15 Angella Mendieta MD [address] [place] [address] PCP - General Family Practice 07/18/15 09/11/15 Julito Banuelos MD [address] [place] [address] PCP - General Family Practice 09/12/15 09/23/21 Julito Banuelos MD [address] [place] [address] PCP - Assigned PCP 02/17/16 12/28/18 Vika Kevin APRN PONY TRIMMER [address] [place] [address] PCP - General Nurse Practitioner - Family 09/24/21 03/05/22 Vika Kevin APRN PONY TRIMMER [address] [place] [address] PCP - General Nurse Practitioner - Family 03/18/22 06/18/22 Vika Kevin APRN PONY TRIMMER [address] [place] [address] 424152 PCP - General Nurse Practitioner - Family 07/24/22 Julito Banuelos MD [address] [place] [address] [id number] Assigned PCP 02/17/16 07/21/20 Aleshia Henriquez, DAVE [address] [place] [address]25 Drier And Grinder Tender Dietitian, Registered 04/14/19 Mary Kay Jones, [facility] Pharmacist 08/01/19 04/20/20 Susannah Blankenship, [facility] [address] [place] [address] [address] [place], [place] [address] Pharmacist Pharmacist 08/08/19 04/15/21 [facility] [address] [place], [place] [address] Pharmacist Pharmacist 06/25/20 04/15/21 Vika Kevin APRN PONY TRIMMER [address] [place] [address] 444162 Assigned PCP 07/22/20 11/16/24 Marilyn Willard MD [address] [place] [address] [address] [place], [place] [address] Assigned Surgical Provider 08/17/20 08/16/24 Carie Varela DO [address] [place], [place] [address] Assigned Heart and Vascular Provider 08/17/20 01/19/21 Maylin May NP [address] [place] [address] Assigned Pediatric Specialist Provider 12/16/20 06/13/22 Marisa Rodrigues, RN Clinic Mandarin Tutor 01/15/21 02/26/21 Vilma Long MD [address] [place] [address] Assigned Heart and Vascular Provider 01/20/21 07/20/21 Yasmeen Pendleton [facility] [address] [place] [address] Pharmacist Pharmacist 06/04/21 01/15/22 Cole George LISW Lead Mandarin Tutor 06/13/21 10/07/21 Fletcher Up Community Health Worker 06/13/21 09/12/21 Bautista Casey MD [address] [place] [address] Assigned Heart and Vascular Provider 07/21/21 01/16/23 Jasmyn Oliver CHW Community Health Worker 09/13/21 10/07/21 Yasmeen Pendleton [facility] [address] [place], [place] [address] Assigned MTM Pharmacist 03/22/22 01/02/23 documented as of this encounter
--- OUTSIDE RECORDS SUMMARY | 2024-12-16 22:56 | XMS_ITS | Encounter Summary ---
Author Organization [place] Address [address] [facility] [place] [address] Care Team Providers Care Crimper Assembler Name Role Phone Andrew Lu MD Primary Care Provider [phone] Niko Resendiz MD Primary Care Provider Carlie Mac MD Primary Care Provide r Angella Mendieta MD Primary Care Provider Julito Banuelos MD Primary Care Provider [phone] Julito Banuelos MD Unavailable Julito Banuelos MD Unavailable Aleshia Henriquez RD Unavailable Unavailable Mary Kay Jones [facility] Unavailable Unavailable Susannah Blankenship [facility] Unavailable [phone] Carolyn Huynh [facility] Unavailable [phone] Vika Kevin APRN DRAFTING LAYOUT WORKER Unavailable + Marilyn Willard MD Unavailable [phone] Carie Varela DO Unavailable [phone] Maylin May NP Unavailable [phone] Marisa Rodrigues RN Unavailable Unavailable Vilma Lnog MD Unavailable + [phone] Yasmeen Pendleton [facility] Unavailable + [phone] Cole George Unavailable Fletcher Russell Unavailable Unavailable Bautista Casey MD Unavailable DemetriusJasmyn wright [facility] Unavailable [phone] Vika Kevin APRN [facility] Primary Care Prov ider Vika Kevin APRN [facility] Primary Care Prov ider Yasmeen Pendleton [facility] Unavailable + [phone] Vika Kevin APRN [facility] Primary Care Prov ider Encounter Details Date Type Department Care Team (Late st Contact Info) Description 09/28/[address] [phone] Veronica [place] Social History Tobacco Use Types Packs/Day Years Used Date Smoking Tobacco: Former Cigarettes 0.3 15 0 10/26/1961 - 10/26/1976 Smokeless Tobacco: Never Alcohol Use Standard Drinks/Week Comments Yes 0 (1 standard drink = 0.6 oz pur e alcohol) 1-2 glasses of wine weekly Comments No Sex and Gender Information Value Date Recorded Sex Assigned at Not on file Legal 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 PREFITTER Gender Identity Not on file Sexual Orientation [...] Out COVID-19 12/04/2020 12/04/2020 12/05/2020 6:04 PM PREFITTER documented as of this encounter Care Teams Crimper Assembler Relationship Specialty Start Date End Date Andrew Lu MD XXX RETIRED XXX [address] [place] [phone] PCP - General 12/10/01 01/10/14 Niko Resendiz MD [address] [place] [address]86 PCP - General Internal Medicine 01/11/14 01/29/14 Carlie Mac MD [address] [place] [address] PCP - General Pediatrics 01/30/14 07/17/15 Angella Mendieta MD [address] [place] [address] PCP - General Family Practice 07/18/15 09/11/15 Julito Banuelos MD [address] [place] [address]46 PCP - General Family Practice 09/12/15 09/23/21 Julito Banuelos MD [address] [place] [address] PCP - Assigned PCP 02/17/16 12/28/18 Vika Kevin APRN DRAFTING LAYOUT WORKER [address] [place] [address] PCP - General Nurse Practitioner - Family 09/24/21 03/05/22 Vika Kevin APRN DRAFTING LAYOUT WORKER [address] [place] [address]349 PCP - General Nurse Practitioner - Family 03/18/22 06/18/22 Vika Kevin APRN DRAFTING LAYOUT WORKER [address] [place] [address] 218032 PCP - General Nurse Practitioner - Family 07/24/22 Julito Banuelos MD [address] [place] [address] [id number] Assigned PCP 02/17/16 07/21/[address] [place] [address] Physician Office Clin Asst Dietitian, Registered 04/14/19 Mary Kay Jones, [facility] Pharmacist 08/01/19 04/20/20 [facility] [address] [place] [address] 812 [place], [place] [address]385 Pharmacist Pharmacist 08/08/19 04/15/21 [facility] [address] [place], [place] [address] Pharmacist Pharmacist 06/25/20 04/15/21 Vika Kevin APRN DRAFTING LAYOUT WORKER [address] [place] [address] 766322 Assigned PCP 07/22/20 11/16/24 Marilyn Willard MD [address] [place] [address] [address] [place] [address] Assigned Surgical Provider 08/17/20 08/16/24 Carie Varela DO [address] [place], [place] [address] Assigned Heart and Vascular Provider 08/17/20 01/19/21 Maylin May NP [address] [place] [address] Assigned Pediatric Specialist Provider 12/16/20 06/13/22 Marisa Rodrigues, RN Clinic Nut Roaster 01/15/21 02/26/21 Vilma Long MD [address] [place] [address] Assigned Heart and Vascular Provider 01/20/21 07/20/21 [facility] [address] [place] [address] Pharmacist Pharmacist 06/04/21 01/15/22 Cole George LISW Lead Nut Roaster 06/13/21 10/07/21 Fletcher Up Community Health Worker 06/13/21 09/12/21 Bautista Casey MD [address] [place] [address] Assigned Heart and Vascular Provider 07/21/21 01/16/23 Jasmyn Oliver CHW Community Health Worker 09/13/21 10/07/21 [facility] [address] [place] [address] 586995 Assigned MTM Pharmacist 03/22/22 01/02/23 documented as of this encounter
--- OUTSIDE RECORDS SUMMARY | 2024-12-16 22:56 | XMS_ITS | Encounter Summary ---
Author Organization [place] Address [address] [facility] [address] Care Team Providers Care Dental Practice Manager Name Role Phone Aleshia Henriquez RD Unavailable Unavailable Vika Kevin APRN, CNP Unavailable + Marilyn Willard MD Unavailable [phone] Maylin May NP Unavailable [phone] Ip, Bautista Bell MD Unavailable Vika Kevin APRN [facility] Primary Care Prov ider Vika Kevin APRN [facility] Primary Care Prov ider Yasmeen Pendleton [facility] Unavailable [phone] Vika Kevin APRN [facility] Primary Care Prov ider Reason for Visit * Reason Onset Date Comments Forms 02/19/2022 Encounter Details Date Type Department Care Team (Late st Contact Info) Description 02/19/[address] [phone] Vika Kevin APRN [address] [address] Forms Social History Tobacco Use [...] and Family Not on file 06/14/2021 Attends [employer]reg[employer] Services Not on file 06/14 Active Member [...] place to sleep or slept in a long term (including now)? 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 file Not on file documented as of this encounter Miscellaneous Notes * Telephone Encounter - Lina Mccarthy - 02/19/2022 2:55 PM CDT Given to Maritza Mccarthy Hand Binder Stripper * Telephone Encounter - Peggy Gregory - [...] clinic location was the form placed at?: [facility] Where the form was placed: Vika Kevin Box/Folder What number is listed as a contact on the form?: [phone] Additional comments: Call taken on 02/19/2022 at 2:46 PM by Peggy Gregory documented in this encounter Plan of Treatment Not on file documented as of this encounter Visit Diagnoses Not on filedocumented in this encounter Additional Health Concerns Assessment Noted Time PHQ-9 Depression Total Score: 10 021 3:56 PM CDT documented as of this encounter Care Teams Dental Practice Manager Relationship Specialty Start Date End Date Vika Kevin APRN [facility] [address] [place] [address] PCP - General Nurse Practitioner - Family 09/24/21 03/05/22 Vika Kevin APRN [employer] HEALTH SPECIALIST [address] [place] [address] PCP - General Nurse Practitioner - Family 03/18/22 06/18/22 Vika Kevin APRN [employer] HEALTH SPECIALIST [address] [place] [address] PCP - General Nurse Practitioner - Family 07/24/[address] Forensic Examiner Dietitian, Registered 04/14/19 Vika Kevin APRN [facility] [address] [place] [address] Assigned PCP 07/22/20 11/16/24 Marilyn Willard MD [address] [facility] [address] [place], [place] [address] Assigned Surgical Provider 08/17/20 08/16/24 Maylin May NP [address] [place], [place] [address] Assigned Pediatric Specialist Provider 12/16/20 06/13/22 Bautista Casey MD [address] [place] [address] Assigned Heart and Vascular Provider 07/21/21 01/16/23 Yasmeen Pendleton, [facility] [address] [place], [place] [address] Assigned MTM Pharmacist 03/22/22 01/02/23 documented as of this encounter
--- OUTSIDE RECORDS SUMMARY | 2024-12-16 22:56 | XMS_ITS | Encounter Summary ---
Author Organization [place] Address [address] [facility] [place] [address] Care Team Providers Care Manager Strategic Sourcing Name Role Phone Julito Banuelos MD Primary Care Provider [phone] Julito Banuelos MD Unavailable Aleshia Henriquez RD Unavailable Unavailable Mary Kay Jones [facility] Unavailable Unavailable Susannah Blankenship [facility] Unavailable [phone] Carolyn Huynh [facility] Unavailable [phone] Vika Kevin APRN CANTEEN ATTENDANT Unavailable + Marilyn Willard MD Unavailable [phone] Carie Varela DO Unavailable [phone] Maylin May NP Unavailable [phone] Marisa Hernandez RN Unavailable Unavailable Vilma Long MD Unavailable Yasmeen Pendleton [facility] Unavailable Cole George Unavailable Fletcher Russell Unavailable Unavailable Bautista Casey MD Unavailable [phone] Jasmyn Oliver CHW Unavailable [phone] Vika Kevin APRN CANTEEN ATTENDANT Primary Care Prov ider Vika Kevin APRN [facility] Primary Care Prov ider Yasmeen Pendleton [facility] Unavailable + [phone] Vika Kevin APRN [facility] Primary Care Prov ider Reason for Visit * Reason Onset Date Comments Refill Request 09/22/2019 Encounter Details Date Type Department Care Team (Late st Contact Info) Description 09/22/[address] [facility] [address] [place] [phone] Carie Varela DO [address] [place], [place] [address] Refill Request Social History Tobacco Use Types [...] on file Legal 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 CIRCULATING PROCESS INSPECTOR Gender Identity Not on file Sexual Orientation Not on file Occupation Industry Job Start Date Job End Date Not on file Not on file Not on file Not on file documented as of this encounter Plan of Treatment Not on file documented as of this encounter Visit Diagnoses Diagnosis Coronary artery disease involving point [place] coronary artery of [place] heart without angina pectoris Unstable angina (H) Intermediate coronary syndrome documented in this encounter Additional Health Concerns Infection Onset Date Last Indicated Resolved Time Rule Out COVID-19 07/25/2020 07/25/2020 07/26/2020 3:02 PM CDT Rule Out COVID-19 12/04/2020 12/04/2020 12/05/2020 6:04 PM CIRCULATING PROCESS INSPECTOR Assessment Noted Time PHQ-9 Depression Total Score: 8 07/18/20 19 12:06 PM CDT documented as of this encounter Care Teams Manager Strategic Sourcing Relationship Specialty Start Date End Date Julito Banuelos MD [address] [place] [address] PCP - General Family Practice 09/12/15 09/23/21 Vika Kevin APRN CANTEEN ATTENDANT [address] [place] [address]17 PCP - General Nurse Practitioner - Family 09/24/21 03/05/22 Vika Kevin APRN CANTEEN ATTENDANT [address] [place] [address] 91693 PCP - General Nurse Practitioner - Family 03/18/22 06/18/22 Vika Kevin APRN CANTEEN ATTENDANT [address] [place] [address]602 PCP - General Nurse Practitioner - Family 07/24/22 Julito Banuelos MD [address] [place] [address] Assigned PCP 02/17/16 07/21/[address] [place] [address]76 Logistics Officer Dietitian, Registered 04/14/19 Mary Kay Jones [facility] Pharmacist 08/01/19 04/20/20 Susannah Blankenship [facility] [address] [place] [address] [address] [place] [address] Pharmacist Pharmacist 08/08/19 04/15/21 Carolyn Huynh [facility] [address] [place] [address] Pharmacist Pharmacist 06/25/20 04/15/21 Vika Kevin, CLERICAL STOCK INSPECTOR CANTEEN ATTENDANT [address] [place], [place] 7922[address] Assigned PCP 07/22/20 11/16/24 Marilyn Willard MD [address] [facility] [address] [place], [place] [address] Assigned Surgical Provider 08/17/20 08/16/24 Carie Varela DO [address] [place] [address] Assigned Heart and Vascular Provider 08/17/20 01/19/21 Maylin May NP [address] [place], [place] [id number] Assigned Pediatric Specialist Provider 12/16/20 06/13/22 Marisa Rodrigues, RN Clinic Mineral Resources Inspector 01/15/21 02/26/21 Vilma Long MD [address] [place] [address] Assigned Heart and Vascular Provider 01/20/21 07/20/21 Yasmeen Pendleton [facility] [address] [place] [address] Pharmacist Pharmacist 06/04/21 01/15/22 Cole George LISW Lead Mineral Resources Inspector 06/13/21 10/07/21 Fletcher pU Community Health Worker 06/13/21 09/12/21 Bautista Casey MD [address] [place] [address] Assigned Heart and Vascular Provider 07/21/21 01/16/23 Jasmyn Oliver CHW Community Health Worker 09/13/21 10/07/21 Yasmeen Pendleton, [facility] [address] [place], [place] [address] Assigned MTM Pharmacist 03/22/22 01/02/23 documented as of this encounter
--- OUTSIDE RECORDS SUMMARY | 2024-12-16 22:56 | XMS_ITS | Encounter Summary ---
Author Organization [place] Address [address] [place] [address] Care Team Providers Care Tool Marker Name Role Phone Andrew Lu MD Primary Care Provider [phone] Niko Resendiz MD Primary Care Provider Carlie Mac MD Primary Care Provide r Angella Mendieta MD Primary Care Provider Julito Banuelos MD Primary Care Provider [phone] Julito Banuelos MD Unavailable Julito Banuelos MD Unavailable Aleshia Henriquez RD Unavailable Unavailable Mary Kay Jones [facility] Unavailable Unavailable Susannah Blankenship [facility] Unavailable [phone] Carolyn Huynh [facility] Unavailable [phone] Vika Kevin APRN NOVELTY CHAIN MAKER Unavailable + Marilyn Willard MD Unavailable [phone] Carie Varela DO Unavailable [phone] Maylin May NP Unavailable [phone] Marisa Rodrigues RN Unavailable Unavailable Vilma Long MD Unavailable + [phone] Yasmeen Pendleton [facility] Unavailable [phone] Cole George Unavailable Fletcher Russell Unavailable Unavailable Bautista Casey MD Unavailable AnnyJasmyn tracey [facility] Unavailable [phone] Vika Kevin APRN [facility] Primary Care Prov ider Vika Kevin APRN [facility] Primary Care Prov ider Yasmeen Pendleton [facility] Unavailable [phone] [facility] Primary Care Prov ider Encounter Details Date Type Department Care Team (Late st Contact Info) Description 06/28/2013 MyC Medical Advice [address] [phone] Denis Rojas MD [address] [place] [phone] Social History Tobacco Use Types Packs/Day Years Used Date Smoking Tobacco: Former Cigarettes 0.3 15 0 10/26/1961 - 10/26/1976 Smokeless Tobacco: Never Alcohol Use Standard Drinks/Week Comments Yes 0 (1 standard drink = 0.6 oz pur e alcohol) 1-2 glasses of wine weekly Comments No Sex and Gender Information Value Date Recorded Sex Assigned at Not on file Legal 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 STORAGE ARCHITECT Gender Identity Not on file Sexual Orientation [...] Out COVID-19 12/04/2020 12/04/2020 12/05/2020 6:04 PM STORAGE ARCHITECT documented as of this encounter Care Teams Tool Marker Relationship Specialty Start Date End Date Andrew Lu MD XXX RETIRED XXX [address] [place] [phone] PCP - General 12/10/01 01/10/14 Niko Resendiz MD [address] [place] [address] PCP - General Internal Medicine 01/11/14 01/29/14 Carlie Mac MD [address] [place] [address] PCP - General Pediatrics 01/30/14 07/17/15 Angella Mendieta MD [address] [place] [address] PCP - General Family Practice 07/18/15 09/11/15 Julito Banuelos MD [address] [place] [address] PCP - General Family Practice 09/12/15 09/23/21 Julito Banuelos MD [address] [place] [address] PCP - Assigned PCP 02/17/16 12/28/18 Vika Kevin APRN NOVELTY CHAIN MAKER [address] [place] [address] PCP - General Nurse Practitioner - Family 09/24/21 03/05/22 Vika Kevin APRN NOVELTY CHAIN MAKER [address] [place] [address] PCP - General Nurse Practitioner - Family 03/18/22 06/18/22 Vika Kevin APRN NOVELTY CHAIN MAKER [address] [place] [address] 936782 PCP - General Nurse Practitioner - Family 07/24/22 Julito Banuelos MD [address] [place] [address] [phone] Assigned PCP 02/17/16 07/21/[address] [place] [address] Community Service Worker Dietitian, Registered 04/14/19 Mary Kay Jones, [facility] Pharmacist 08/01/19 04/20/20 Susannah Blankenship, [facility] [address] [facility] [address] [place], [place] 5025[address] Pharmacist Pharmacist 08/08/19 04/15/21 Carolyn Huynh, [facility] [address] [place], [place] 89[address] Pharmacist Pharmacist 06/25/20 04/15/21 Vika Kevin, JAIME NOVELTY CHAIN MAKER [address] [place] [address] 174682 Assigned PCP 07/22/20 11/16/24 Marilyn Willard MD [address] [facility] [address] [place], [place] [address] Assigned Surgical Provider 08/17/20 08/16/24 Carie Varela DO [address] [place] [address] Assigned Heart and Vascular Provider 08/17/20 01/19/21 Maylin May NP [address] [place] [address] Assigned Pediatric Specialist Provider 12/16/20 06/13/22 Marisa Rodrigues, RN Clinic Finance Analyst 01/15/21 02/26/21 Vilma Long MD [address] [place] [address] Assigned Heart and Vascular Provider 01/20/21 07/20/21 [facility] [address] [place] [address] Pharmacist Pharmacist 06/04/21 01/15/22 Cole Geroge LISW Lead Finance Analyst 06/13/21 10/07/21 Fletcher Up Community Health Worker 06/13/21 09/12/21 Bautista Casey MD [address] [place] [address] Assigned Heart and Vascular Provider 07/21/21 01/16/23 Jasmyn Oliver CHW Community Health Worker 09/13/21 10/07/21 [facility] [address] [place] [address] Assigned MTM Pharmacist 03/22/22 01/02/23 documented as of this encounter
--- OUTSIDE RECORDS SUMMARY | 2024-12-16 22:56 | XMS_ITS | Encounter Summary ---
Author Organization [place] Address [address] [facility] [place] [address] Care Team Providers Care Bridge Manager Name Role Phone Julito Banuelos MD Primary Care Provider [phone] Julito Banuelos MD Unavailable Aleshia Henriquez RD Unavailable Unavailable Mary Kay Jones [facility] Unavailable Unavailable Susannah Blankenship [facility] Unavailable Carolyn Huynh [facility] Unavailable [phone] Vika Kevin APRN RESEARCH PROGRAM MANAGER Unavailable + Marilyn Willard MD Unavailable [phone] Carie Varela DO Unavailable [phone] Maylin May NP Unavailable [phone] Marisa Hernandez RN Unavailable Unavailable Vilma Long MD Unavailable Yasmeen Pendleton [facility] Unavailable Cole George Unavailable Fletcher Russell Unavailable Unavailable Bautista Casey MD Unavailable Jasmyn Oliver CHW Unavailable [phone] Vika Kevin APRN RESEARCH PROGRAM MANAGER Primary Care Prov ider Vika Kevin APRN [facility] Primary Care Prov ider Yasmeen Pendleton [facility] Unavailable + [phone] Vika Kevin APRN [facility] Primary Care Prov ider Reason for Visit * Reason Comments Medication Refill Encounter Details Date Type Department Care Team (Late st Contact Info) Description 09/07/[address] [phone] [place] [address] [place] [address] [phone] Medication Refill Social History Tobacco Use Types [...] on file Legal 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 MITER GRINDER OPERATOR Gender Identity Not on file Sexual Orientation Not on file Occupation Industry Job Start Date Job End Date Not on file Not on file Not on file Not on file documented as of this encounter Miscellaneous Notes * Telephone Encounter - Panda Bradshaw RN - 09/09/2019 12:44 PM MITER GRINDER OPERATOR Prescription approved per [facility] Refill Protocol. Panda Bradshaw RN [place] Triage R GRINDER OPERATOR * Telephone Encounter - Jesús Flores - [...] 90 days) Sep 12, 2019 2:00 PM MITER GRINDER OPERATOR SHORT with Susannah Blankenship [facility] [address] [facility] [address] [facility] [phone] Sep 23, 2019 10:50 AM MITER GRINDER OPERATOR Office Visit with Julito Banuelos MD [facility] [address] [place] [phone] 48 g 3 Sig: SPRAY TWO SPRAYS [...] & Orders section of the refill encounter. R GRINDER OPERATOR documented in this encounter Plan of Treatment Not on file documented as of this encounter Visit Diagnoses Diagnosis Environmental allergies Allergic rhinitis, cause unspecified documented in this encounter Additional Health Concerns Infection Onset Date Last Indicated Resolved Time Rule Out COVID-19 07/25/2020 07/25/2020 07/26/2020 3:02 PM CDT Rule Out COVID-19 12/04/2020 12/04/2020 12/05/2020 6:04 PM MITER GRINDER OPERATOR Assessment Noted Time PHQ-9 Depression Total Score: 8 07/18/20 19 12:06 PM CDT documented as of this encounter Care Teams Bridge Manager Relationship Specialty Start Date End Date Julito Banuelos MD [address] [place] [address] [phone] PCP - General Family Practice 09/12/15 09/23/21 Viak Kevin APRN RESEARCH PROGRAM MANAGER [address] [place] [address] 213862 PCP - General Nurse Practitioner - Family 09/24/21 03/05/22 Vika Kevin APRN RESEARCH PROGRAM MANAGER [address] [place] [address] [phone] PCP - General Nurse Practitioner - Family 03/18/22 06/18/22 Vika Kevin APRN RESEARCH PROGRAM MANAGER [address] [place] [address] [phone] PCP - General Nurse Practitioner - Family 07/24/22 Julito Banuelos MD [address] [place] [address] [phone] Assigned PCP 02/17/16 07/21/[address] [place] [address] Powder Worker Tnt Dietitian, Registered 04/14/19 Mary Kay Jones [facility] Pharmacist 08/01/19 04/20/20 Susannah Blankenship, [facility] [address] [place] [address] [address] [place] [address] Pharmacist Pharmacist 08/08/19 04/15/21 Carolyn Huynh [facility] [place] [address] Pharmacist Pharmacist 06/25/20 04/15/21 Vika Kevin APRN RESEARCH PROGRAM MANAGER [address] [place] [address] Assigned PCP 07/22/20 11/16/24 Marilyn Willard MD [address] [place] [address] Assigned Surgical Provider 08/17/20 08/16/24 Carie Varela DO [address] [place] [address] Assigned Heart and Vascular Provider 08/17/20 01/19/21 Maylin May NP [address] [place] [address] Assigned Pediatric Specialist Provider 12/16/20 06/13/22 Marisa Rodrigues, RN Clinic Press Technician 01/15/21 02/26/21 iVlma Long MD [address] [place] [address] Assigned Heart and Vascular Provider 01/20/21 07/20/21 Yasmeen Pendleton [facility] [address] [place] [address] Pharmacist Pharmacist 06/04/21 01/15/22 Cole George LISW Lead Press Technician 06/13/21 10/07/21 Fletcher Up Community Health Worker 06/13/21 09/12/21 Bautista Casey MD [address] [place] [address] Assigned Heart and Vascular Provider 07/21/21 01/16/23 Jasmyn Oliver CHW Community Health Worker 09/13/21 10/07/21 Yasmeen Pendleton [facility] [address] [place] [address] Assigned MTM Pharmacist 03/22/22 01/02/23 documented as of this encounter
--- OUTSIDE RECORDS SUMMARY | 2024-12-16 22:56 | XMS_ITS | Encounter Summary ---
Author Organization [place] Address [address] [facility] [place] [address] Care Team Providers Care Weight Control Engineer Name Role Phone Aleshia Henriquez RD Unavailable Unavailable Vika Kevin APRN [facility] Unavailable + Marilyn Willard MD Unavailable [phone] Maylin May NP Unavailable [phone] Yasmeen Pendleton [facility] Unavailable Bautista Casey MD Unavailable Vika Kevin APRN [facility] Primary Care Prov ider Vika Kevin APRN [facility] Primary Care Prov ider Yasmeen Pendleton [facility] Unavailable [phone] Vika Kevin APRN [facility] Primary Care Prov ider Encounter Details Date Type Department Care Team (Late st Contact Info) Description 10/17/2021 [facility] Medical Advice [address] [phone] Yasmeen Pendleton, [facility] [address] [place], [place] [address] Social History Tobacco Use Types Packs/Day Years [...] and Family Not on file 06/14/2021 Attends Buddhism Services Not on file 06/14 Active Member [...] place to sleep or slept in a care home (including now)? 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 WAD IMPREGNATOR Gender Identity Not on file Sexual Orientation [...] COVID-19? No / Unsure 09/25/2021 11:59 AM WAD IMPREGNATOR documented as of this encounter Plan of Treatment Not on file documented as of this encounter Visit Diagnoses Not on filedocumented in this encounter Additional Health Concerns Assessment Noted Time PHQ-9 Depression Total Score: 10 04/29/ 021 3:56 PM CDT documented as of this encounter Care Teams Weight Control Engineer Relationship Specialty Start Date End Date Vika Kevin APRN [address] [facility] [address] [place] [address] PCP - General Nurse Practitioner - Family 09/24/21 03/05/[address]N [address] MAG[address] [place] [address] PCP - General Nurse Practitioner - Family 03/18/22 06/18/[address] MAG[address] [place] [address] [phone] PCP - General Nurse Practitioner - Family 07/24/[address] Mdm Developer Dietitian, Registered 04/14/[address] MAGISTRATE [address] [place] [address] Assigned PCP 07/22/20 11/16/24 Marilyn Willard MD [address] [place] [address] Assigned Surgical Provider 08/17/20 08/16/24 Maylin May NP [address] [place] [address] Assigned Pediatric Specialist Provider 12/16/20 06/13/22 Yasmeen Pendleton [facility] [address] [place] [address] Pharmacist Pharmacist 06/04/21 01/15/22 Bautista Casey MD [address] [place] [address] Assigned Heart and Vascular Provider 07/21/21 01/16/23 Yasmeen Pendleton [facility] [address] [place] [address] Assigned MTM Pharmacist 03/22/22 01/02/23 documented as of this encounter
--- OUTSIDE RECORDS SUMMARY | 2024-12-16 22:56 | XMS_ITS | Encounter Summary ---
Author Organization [place] Address [address] [facility] [place] [address] Care Team Providers Care Manager Digital Name Role Phone Andrew Lu MD Primary Care Provider [phone] Niko Resendiz MD Primary Care Provider Carlie Mac MD Primary Care Provide r Angella Mendieta MD Primary Care Provider Julito Banuelos MD Primary Care Provider [phone] Julito Banuelos MD Unavailable Julito Banuelos MD Unavailable Aleshia Henriquez RD Unavailable Unavailable Mary Kay Jones [facility] Unavailable Unavailable Susannah Blankenship [facility] Unavailable [phone] Carolyn Huynh [facility] Unavailable [phone] Vika Kevin APRN SHIPPING ROOM SUPERVISOR Unavailable + Marilyn Willard MD Unavailable [phone] Carie Varela DO Unavailable [phone] Maylin May NP Unavailable [phone] Marisa Rodrigues RN Unavailable Unavailable Vilma Long MD Unavailable + [phone] Yasmeen Pendleton [facility] Unavailable [phone] Cole George Unavailable Fletcher Russell Unavailable Unavailable Bautista Casey MD Unavailable [phone] DemetriusJasmyn wright [facility] Unavailable [phone] Vika Kevin APRN [employer] Primary Care Prov ider Vika Kevin APRN [employer] Primary Care Prov ider Yasmeen Pendleton [facility] Unavailable [phone] [facility] Primary Care Prov ider Encounter Details Date Type Department Care Team (Late st Contact Info) Description 04/27/2012 MyC Medical Advice [address] [phone] Andrew Lu MD XXX RETIRED XXX [address] [phone] Social History Tobacco Use Types Packs/Day Years Used Date Smoking Tobacco: Former Cigarettes 0.3 15 0 10/26/1961 - 10/26/1976 Smokeless Tobacco: Never Alcohol Use Standard Drinks/Week Comments Yes 0 (1 standard drink = 0.6 oz pur e alcohol) 1-2 glasses of wine weekly Comments No Sex and Gender Information Value Date Recorded Sex Assigned at Not on file Legal 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 AIRSET MOLDER Gender Identity Not on file Sexual Orientation [...] Out COVID-19 12/04/2020 12/04/2020 12/05/2020 6:04 PM AIRSET MOLDER documented as of this encounter Care Teams Manager Digital Relationship Specialty Start Date End Date Andrew Lu MD XXX RETIRED XXX [address] [place] [phone] PCP - General 12/10/01 01/10/14 Niko Resendiz MD [address] [place] [address] PCP - General Internal Medicine 01/11/14 01/29/14 Carlie Mac MD [address] [place] [address] PCP - General Pediatrics 01/30/14 07/17/15 Angella Mendieta MD [address] [place] [address] PCP - General Family Practice 07/18/15 09/11/15 Julito Banuelos MD [address] [place] [address] PCP - General Family Practice 09/12/15 09/23/21 Julito Banuelos MD [address] [place] [address] PCP - Assigned PCP 02/17/16 12/28/18 Vika Kevin APRN SHIPPING ROOM SUPERVISOR [address] [place] [address]96 PCP - General Nurse Practitioner - Family 09/24/21 03/05/22 Vika Kevin APRN SHIPPING ROOM SUPERVISOR [address] [place] [address] PCP - General Nurse Practitioner - Family 03/18/22 06/18/22 Vika Kevin, JAIME SHIPPING ROOM SUPERVISOR [address] [place] [address] 675922 PCP - General Nurse Practitioner - Family 07/24/22 Julito Banuelos MD [address] [place] [address] 747752 Assigned PCP 02/17/16 07/21/[address] [place] [address] Manager Dairy Dietitian, Registered 04/14/19 Mary Kay Jones, [facility] Pharmacist 08/01/19 04/20/20 Susannah Blankenship, [facility] [address] [facility] 812 [place], [place] [address] Pharmacist Pharmacist 08/08/19 04/15/21 Carolyn Huynh, [facility] [address] [place], [place] 5[address] Pharmacist Pharmacist 06/25/20 04/15/21 Vika Kevin, JAIME SHIPPING ROOM SUPERVISOR [address] [place] [address] 253132 Assigned PCP 07/22/20 11/16/24 Marilyn Willard MD 420 [facility] [address] [place], [place] 4064[address] Assigned Surgical Provider 08/17/20 08/16/24 Carie Varela DO [address] [place] [address] Assigned Heart and Vascular Provider 08/17/20 01/19/21 Maylin May NP [address] [place] [address] Assigned Pediatric Specialist Provider 12/16/20 06/13/22 Marisa Rodrigues, RN Clinic Head Sawyer 01/15/21 02/26/21 Vilma Long MD [address] [place] [address] Assigned Heart and Vascular Provider 01/20/21 07/20/21 Yasmeen Pendleton [facility] [address] [place] [address] Pharmacist Pharmacist 06/04/21 01/15/22 Cole George LISW Lead Head Sawyer 06/13/21 10/07/21 Fletcher Up Community Health Worker 06/13/21 09/12/21 Bautista Casey MD [address] [place] [address] Assigned Heart and Vascular Provider 07/21/21 01/16/23 Jasmyn Oliver CHW Community Health Worker 09/13/21 10/07/21 Yasmeen Pendleton [facility] [address] [place] [address] Assigned MTM Pharmacist 03/22/22 01/02/23 documented as of this encounter
--- OUTSIDE RECORDS SUMMARY | 2024-12-16 22:56 | XMS_ITS | Encounter Summary ---
Author Organization [place] Address [address] [facility] [place] [address] Care Team Providers Care Privacy Analyst Name Role Phone Cortez Lu MD Primary Care Provider [phone] Niko Resendiz MD Primary Care Provider Carlie Mac MD Primary Care Provide r Angella Mendieta MD Primary Care Provider Julito Banuelos MD Primary Care Provider [phone] Julito Banuelos MD Unavailable Julito Banuelos MD Unavailable Alesiha Henriquez RD Unavailable Unavailable Mary Kay Jones [facility] Unavailable Unavailable Susannah Blankenship [facility] Unavailable [phone] Carolyn Huynh [facility] Unavailable [phone] Vika Kevin APRN BIOPROCESS ENGINEER Unavailable + Marilyn Willard MD Unavailable [phone] Carie Varela DO Unavailable [phone] Maylin May NP Unavailable [phone] Marisa Rodrigues RN Unavailable Unavailable Vilma Long MD Unavailable + [phone] Yasmeen Pendleton [facility] Unavailable + [phone] Cole George Unavailable Fletcher Russell Unavailable Unavailable Bautista MD Unavailable [phone] Jasmyn Oliver [facility] Unavailable [phone] Vika Kevin APRN [facility] Primary Care Prov ider Vika Kevin APRN [facility] Primary Care Prov ider Yasmeen Pendleton [facility] Unavailable + [phone] Vika [facility] Primary Care Prov ider Encounter Details Date Type Department Care Team (Late st Contact Info) Description 04/22/2013 Office Visit-[facility] Heart [address] [place] [address] Reji Davis MD [address] [place], [place] [id number] Social History Tobacco Use Types Packs/Day Years Used Date Smoking Tobacco: Former Cigarettes 0.3 15 0 10/26/1961 - 10/26/1976 Smokeless Tobacco: Never Alcohol Use Standard Drinks/Week Comments Yes 0 (1 standard drink = 0.6 oz pur e alcohol) 1-2 glasses of wine weekly Comments No Sex and Gender Information Value Date Recorded Sex Assigned at Not on file Legal 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 SUSTAINABLE PRODUCTS MARKETING MANAGER Gender Identity Not on file Sexual Orientation Not on file Occupation Industry Job Start Date Job End Date Not on file Not on file Not on file Not on file documented as of this encounter Progress Notes * Reji Davis MD - 04/26/2013 1:24 PM CDT Progress Note Created by: Reji Davis MD #[id number] DATE: 04/22/2013 MARIALUISA COSBY DATE OF : 1940 AGE: [age] years old Referring Physician: CORTEZ LU Referring Clinic: [facility] CURRENT DIAGNOSES 1. 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 - Hyperlipidemia mixed, 272.2 [...] daily 12. Nasacort AQ 55 mcg Aerosol, [place], Take as Directed 13. Plavix 75 mg [...] artery in December of 2012 at [facility] in [place], [place] following presentation for non-ST segment elevation [place]. I last saw her inApril of this [...] Leg syndrome Past Cardiac Illnesses: CAD, s/p VA Surgeries/Procedures - General: hysterectomy Cardiac/Vasc Procedures-Invasive: left heart cath 12/2012 ([place]) Cardiology Procedures-NonInvasive: echocardiogram Jun 2007, myocardial perfusion (Nuc) Jun 2007, echo 12/2012 ([place]), stress echo February 2013 Cardiac Cath Results: 12/2012 [place] Resolute NELIA to the mid and prox [...] - lives with and been living in [place] for 3 months; Place of - [place]; REVIEW OF SYSTEMS GENERAL fatigue, weight loss, [...] takes allergy shots, allergies get worse in [place] but they can get bad in [place] too PHYSICAL EXAMINATION VITAL SIGNS: Blood Pressure: [...] Out COVID-19 12/04/2020 12/04/2020 12/05/2020 6:04 PM SUSTAINABLE PRODUCTS MARKETING MANAGER documented as of this encounter Care Teams Privacy Analyst Relationship Specialty Start Date End Date Cortez Lu MD XXX RETIRED XXX [address] [place] [phone] PCP - General 12/10/01 01/10/14 Niko Resendiz MD [address] [place] [address] PCP - General Internal Medicine 01/11/14 01/29/14 Carlie Mac MD [address] [place] [address] PCP - General Pediatrics 01/30/14 07/17/15 Angella Mendieta MD [facility] [place] [address] PCP - General Family Practice 07/18/15 09/11/15 Julito Banuelos MD [address] [place] [address] PCP - General Family Practice 09/12/15 09/23/21 Julito Banuelos MD [address] [place] [address] PCP - Assigned PCP 02/17/16 12/28/18 Vika Kevin APRN BIOPROCESS ENGINEER [address] [place] [address] PCP - General Nurse Practitioner - Family 09/24/21 03/05/22 Vika Kevin APRN BIOPROCESS ENGINEER [address] [place] [address] PCP - General Nurse Practitioner - Family 03/18/22 06/18/22 Vika Kevin APRN BIOPROCESS ENGINEER [address] [place] [address] PCP - General Nurse Practitioner - Family 07/24/22 Julito Banuelos MD [address] [place] [address] Assigned PCP 02/17/16 07/21/[address] [place] [address] Belt Worker Dietitian, Registered 04/14/19 Mary Kay Jones [facility] 08/01/19 04/20/20 Susannah Blankenship [facility] 420 [facility] 812 [place] [address] Pharmacist Pharmacist 08/08/19 04/15/21 Carolyn Huynh [facility] [address] [place] [address] Pharmacist Pharmacist 06/25/20 04/15/21 Vika Kevin, JAIME BIOPROCESS ENGINEER [address] [place] [address] 681502 Assigned PCP 07/22/20 11/16/24 Marilyn Willard MD 420 [facility] [address] [place], [place] [address] Assigned Surgical Provider 08/17/20 08/16/24 Carie Varela DO [address] [place] [address] Assigned Heart and Vascular Provider 08/17/20 01/19/21 Maylin May NP [address] [place], [place] 17[address] Assigned Pediatric Specialist Provider 12/16/20 06/13/22 Marisa Rodrigues, RN Clinic Zipper Sewing Machine Operator 01/15/21 02/26/21 Vilma Long MD [address] [place] [address] Assigned Heart and Vascular Provider 01/20/21 07/20/21 Yasmeen Pendleton [facility] [address] [place], [place] [address] Pharmacist Pharmacist 06/04/21 01/15/22 Cole George LISW Lead Zipper Sewing Machine Operator 06/13/21 10/07/21 Fletcher Up Community Health Worker 06/13/21 09/12/21 Bautista Casey MD [address] [place], [place] [address] Assigned Heart and Vascular Provider 07/21/21 01/16/23 Jasmyn Oliver CHW Community Health Worker 09/13/21 10/07/21 Yasmeen Pendleton [facility] [address] [place] [address] Assigned MTM Pharmacist 03/22/22 01/02/23 documented as of this encounter
--- OUTSIDE RECORDS SUMMARY | 2024-12-16 22:56 | XMS_ITS | Encounter Summary ---
Author Organization [place] Address [address] [facility] [place] [address] Care Team Providers Care Nursing Attendant Name Role Phone Julito Banuelos MD Primary Care Provider [phone] Julito Banuelos MD Unavailable Aleshia Henriquez RD Unavailable Unavailable Mary Kay Jones [facility] Unavailable Unavailable Susannah Blankenship [facility] Unavailable Carolyn Huynh [facility] Unavailable [phone] Vika Kevin APRN POWER LINE LINEMAN Unavailable + Marilyn Willard MD Unavailable [phone] Carie Varela DO Unavailable [phone] Maylin May NP Unavailable [phone] Marisa Hernandez RN Unavailable Unavailable Vilma Long MD Unavailable Yasmeen Pendleton [facility] Unavailable [phone] Cole George Unavailable Fletcher Russell Unavailable Unavailable Bautista Casey MD Unavailable [phone] Jasmyn Oliver CHW Unavailable [phone] Vika Kevin APRN [employer] Primary Care Prov ider Vika Kevin APRN [facility] Primary Care Prov ider Yasmeen Pendleton [facility] Unavailable + [phone] Vika Kevin APRN [facility] Primary Care Prov ider Reason for Visit * Reason Onset Date Comments Refill Request 09/12/2019 Encounter Details Date Type Department Care Team (Late st Contact Info) Description 09/12/2019 MyC Refill [facility] [address] [facility] [address] [place] [phone] Carie Varela DO [address] [place], [place] [address] Refill Request Social History Tobacco Use Types [...] on file Legal 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 Gender Identity Not on file Sexual Orientation Not on file Occupation Industry Job Start Date Job End Date Not on file Not on file Not on file Not on file documented as of this encounter Plan of Treatment Not on file documented as of this encounter Visit Diagnoses Diagnosis Hypertension goal BP (blood pressure) < 140/90 Unspecified essential hypertension Coronary artery disease involving yocha dehe coronary artery of yocha dehe heart without angina pectoris documented in this encounter Additional Health Concerns Infection Onset Date Last Indicated Resolved Time Rule Out COVID-19 07/25/2020 07/25/2020 07/26/2020 3:02 PM CDT Rule Out COVID-19 12/04/2020 12/04/2020 12/05/2020 6:[address] COUNSELLOR Assessment Noted Time PHQ-9 Depression Total Score: 8 07/18/20 19 12:06 PM CDT documented as of this encounter Care Teams Nursing Attendant Relationship Specialty Start Date End Date Julito Banuelos MD [address] [place] [address] PCP - General Family Practice 09/12/15 09/23/21 Vika Kevin APRN POWER LINE LINEMAN [address] [place] [address] 507332 PCP - General Nurse Practitioner - Family 09/24/21 03/05/22 Vika Kevin APRN POWER LINE LINEMAN [address] [place] [address] 548642 PCP - General Nurse Practitioner - Family 03/18/22 06/18/22 Vika Kevin APRN POWER LINE LINEMAN [address] [place] [address] 252162 PCP - General Nurse Practitioner - Family 07/24/22 Julito Banuelos MD [address] [place] [address] 739912 Assigned PCP 02/17/16 07/21/[address] [place] [address] Groundskeeper Dietitian, Registered 04/14/19 Mary Kay Jones [facility] Pharmacist 08/01/19 04/20/20 Susannah Blankenship [facility] [address] [place] [address] [address] [place], [place] 2[address] Pharmacist Pharmacist 08/08/19 04/15/21 Carolyn Huynh [facility] [address] [place], [place] [address] Pharmacist Pharmacist 06/25/20 04/15/21 KevinVikalotte, AUDITOR/QUALITY [employer]OWER [employer] LINEMAN [address] [place], [place] 2224[address] Assigned PCP 07/22/20 11/16/24 Marilyn Willard MD 420 [facility] [address] [place], [place] [address]13[address] Assigned Surgical Provider 08/17/20 08/16/24 Carie Varela DO [address] [place] [address] Assigned Heart and Vascular Provider 08/17/20 01/19/21 Maylin May NP [address] [place], [place] 458[address] Assigned Pediatric Specialist Provider 12/16/20 06/13/22 Marisa Rodrigues, RN Clinic Director Of Dementia Operations 01/15/21 02/26/21 Vilma Long MD [address] [place] [address] Assigned Heart and Vascular Provider 01/20/21 07/20/21 Yasmeen Pendleton [facility] 9[address] [place] [address] Pharmacist Pharmacist 06/04/21 01/15/22 Cole George LISW Lead Director Of Dementia Operations 06/13/21 10/07/21 Fletcher Up Community Health Worker 06/13/21 09/12/21 Bautista Casey MD [address] [place] [address] Assigned Heart and Vascular Provider 07/21/21 01/16/23 Jasmyn Oliver CHW Community Health Worker 09/13/21 10/07/21 Yasmeen Pendleton [facility] [address] [place] [address] Assigned MTM Pharmacist 03/22/22 01/02/23 documented as of this encounter
--- OUTSIDE RECORDS SUMMARY | 2024-12-16 22:56 | XMS_ITS | Encounter Summary ---
Author Organization [place] Address [address] [facility] [place] [address] Care Team Providers Care Retail Salesworker Name Role Phone Andrew Lu MD Primary Care Provider [phone] Niko Resendiz MD Primary Care Provider Carlie Mac MD Primary Care Provide r Angella Mendieta MD Primary Care Provider Julito Banuelos MD Primary Care Provider [phone] Julito Banuelos MD Unavailable Julito Banuelos MD Unavailable Aleshia Henriquez RD Unavailable Unavailable Mary Kay Jones [facility] Unavailable Unavailable Susannah Blankenship [facility] Unavailable [phone] Carolyn Huynh [facility] Unavailable [phone] Vika Kevin APRN METALIZING SUPERVISOR Unavailable + Marilyn Willard MD Unavailable [phone] Carie Varela DO Unavailable [phone] Maylin May NP Unavailable [phone] Marisa Rodrigues RN Unavailable Unavailable Vilma Long MD Unavailable + [phone] Yasmeen Pendleton [facility] Unavailable [phone] Cole George Unavailable Fletcher Russell Unavailable Unavailable Bautista Casey MD Unavailable DemetriusJasmyn wright [facility] Unavailable [phone] Vika Kevin APRN [facility] Primary Care Prov ider Vika Kevin APRN [facility] Primary Care Prov ider Yasmeen Pendleton [facility] Unavailable Vika [facility] Primary Care Prov ider Encounter Details Date Type Department Care Team (Late st Contact Info) Description 11/07/2012 MyC Medical Advice [address] [phone] Andrew Lu MD XXX RETIRED XXX [address] [phone] Social History Tobacco Use Types Packs/Day Years Used Date Smoking Tobacco: Former Cigarettes 0.3 15 0 10/26/1961 - 10/26/1976 Smokeless Tobacco: Never Alcohol Use Standard Drinks/Week Comments Yes 0 (1 standard drink = 0.6 oz pur e alcohol) 1-2 glasses of wine weekly Comments No Sex and Gender Information Value Date Recorded Sex Assigned at Not on file Legal 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 ENTRY SPECIALIST Gender Identity Not on file Sexual [...] Out COVID-19 12/04/2020 12/04/2020 12/05/2020 6:04 PM ENTRY SPECIALIST documented as of this encounter Care Teams Retail Salesworker Relationship Specialty Start Date End Date Andrew Lu MD XXX RETIRED XXX [address] [place] [phone] PCP - General 12/10/01 01/10/14 Niko Resendiz MD [address] [place] [address] PCP - General Internal Medicine 01/11/14 01/29/14 Carlie Mac MD [address] [place] [address] PCP - General Pediatrics 01/30/14 07/17/15 Angella Mendieta MD [address] [place] [address] PCP - General Family Practice 07/18/15 09/11/15 Julito Banuelos MD [address] [place] [address]712 PCP - General Family Practice 09/12/15 09/23/21 Julito Banuelos MD [address] [place] [address] PCP - Assigned PCP 02/17/16 12/28/18 Vika Kevin APRN METALIZING SUPERVISOR [address] [place] [address] PCP - General Nurse Practitioner - Family 09/24/21 03/05/22 Vika Kevin APRN METALIZING SUPERVISOR [address] [place] [address]693 PCP - General Nurse Practitioner - Family 03/18/22 06/18/22 Vika Kevin, JAIME METALIZING SUPERVISOR [address] [place] [address] 397482 PCP - General Nurse Practitioner - Family 07/24/22 Julito Banuelos MD [address] [place] [address] 023462 Assigned PCP 02/17/16 07/21/[address] [place] [address] Kai [place] Dietitian, Registered 04/14/19 Mary Kay Jones, [facility] Pharmacist 08/01/19 04/20/20 Susannah Blankenship, [facility] 420 [facility] 8[address] [place], [place] [address] Pharmacist Pharmacist 08/08/19 04/15/21 Carolyn Huynh, [facility] [address] [place], [place] [address] Pharmacist Pharmacist 06/25/20 04/15/21 Vika Kevin, JAIME METALIZING SUPERVISOR [address] [place] [address] 187692 Assigned PCP 07/22/20 11/16/24 Marilyn Willard MD 420 [facility] 394 [place], [place] 737165 Assigned Surgical Provider 08/17/20 08/16/24 Carie Varela DO [address] [place] [address] Assigned Heart and Vascular Provider 08/17/20 01/19/21 Maylin May NP [address] [place] [address] Assigned Pediatric Specialist Provider 12/16/20 06/13/22 Marisa Rodrigues, RN Clinic Dye Expert 01/15/21 02/26/21 Vilma Long MD [address] [place] [address] Assigned Heart and Vascular Provider 01/20/21 07/20/21 Yasmeen Pendleton [facility] [address] [place] [address] Pharmacist Pharmacist 06/04/21 01/15/22 Cole George LISW Lead Dye Expert 06/13/21 10/07/21 Fletcher Up Community Health Worker 06/13/21 09/12/21 Bautista Casey MD [address] [place] [address] Assigned Heart and Vascular Provider 07/21/21 01/16/23 Jasmyn Oliver CHW Community Health Worker 09/13/21 10/07/21 Yasmeen Pendleton [facility] [address] [place] [address] Assigned MTM Pharmacist 03/22/22 01/02/23 documented as of this encounter
--- OUTSIDE RECORDS SUMMARY | 2024-12-16 22:56 | XMS_ITS | Encounter Summary ---
Author Organization [place] Address [address] [facility] [place] [address] Care Team Providers Care Administrator Name Role Phone Julito Banuelos MD Primary Care Provider [phone] Julito Banuelos MD Unavailable Aleshia Henriquez RD Unavailable Unavailable Mary Kay Jones [facility] Unavailable Unavailable Susannah Blankenship [facility] Unavailable Carolyn Huynh [facility] Unavailable [phone] Vika Kevin APRN BELT KNIFE FEEDER Unavailable + Marilyn Willard MD Unavailable Carie Varela DO Unavailable [phone] Maylin May NP Unavailable [phone] Marisa Hernandez RN Unavailable Unavailable Vilma Long MD Unavailable Yasmeen Pendleton [facility] Unavailable [phone] Cole George Unavailable Fletcher Russell Unavailable Unavailable Bautista Casey MD Unavailable [phone] Jasmyn Oliver CHW Unavailable [phone] Vika Kevin APRN BELT KNIFE FEEDER Primary Care Prov ider Vika Kevin APRN, CNP Primary Care Prov ider Yasmeen Pendleton [facility] Unavailable [phone] Vika Kevin APRN BELT KNIFE FEEDER Primary Care Prov ider Encounter Details Date Type Department Care Team (Late st Contact Info) Description 08/16/2019 MyC Medical Advice [address] [place] [phone] Mary Kay Jones, [facility] file Legal 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 DIRECTOR OF MATERNITY SERVICES Gender Identity Not on file Sexual [...] COVID-19 12/04/2020 12/04/2020 12/05/2020 6:04 PM DIRECTOR OF MATERNITY SERVICES Assessment Noted Time PHQ-9 Depression Total Score: 8 07/18/20 19 12:06 PM CDT documented as of this encounter Care Teams Administrator Relationship Specialty Start Date End Date Julito Banuelos MD [address] [place] [address] PCP - General Family Practice 09/12/15 09/23/21 Vika Kevin APRN [facility] [address] [place] [address] PCP - General Nurse Practitioner - Family 09/24/21 03/05/22 Vika Kevin APRN BELT KNIFE FEEDER [address] [place] [address] PCP - General Nurse Practitioner - Family 03/18/22 06/18/22 Vika Kevin APRN BELT KNIFE FEEDER [address] [place] [address] [phone] PCP - General Nurse Practitioner - Family 07/24/22 Julito Banuelos MD [address] [place] [address] [phone] Assigned PCP 02/17/16 07/21/[address] [place] [address] Regional Controller Dietitian, Registered 04/14/19 Mary Kay Jones, [facility] Pharmacist 08/01/19 04/20/20 Susannah Blankenship, [facility] [address] [place] [address] [address] [place] [address] Pharmacist Pharmacist 08/08/19 04/15/21 Carolyn Huynh [facility] [address] [place], [place] [address] Pharmacist Pharmacist 06/25/20 04/15/21 Vika Kevin APRN [employer] KNIFE FEEDER [address] [place] [address] Assigned PCP 07/22/20 11/16/24 Marilyn Willard MD [address] [facility] [address] [place] [address] Assigned Surgical Provider 08/17/20 08/16/24 Carie Varela DO [address] [place] [address] Assigned Heart and Vascular Provider 08/17/20 01/19/21 Maylin May, JENNY [address] [place], [place] [id number] Assigned Pediatric Specialist Provider 12/16/20 06/13/22 Marisa Rodrigues RN Clinic Sewing Machine Attachment Tester 01/15/21 02/26/21 Vilma Long MD [address] [place] [address] Assigned Heart and Vascular Provider 01/20/21 07/20/21 Yasmeen Pendleton [facility] [address] [place] [address] Pharmacist Pharmacist 06/04/21 01/15/22 Cole George LISW Lead Sewing Machine Attachment Tester 06/13/21 10/07/21 Fletcher Up Community Health Worker 06/13/21 09/12/21 Bautista Casey MD [address] [place] [address] Assigned Heart and Vascular Provider 07/21/21 01/16/23 Jasmyn Oliver CHW Community Health Worker 09/13/21 10/07/21 Yasmeen Pendleton [facility] [address] [place] [address] Assigned MTM Pharmacist 03/22/22 01/02/23 documented as of this encounter
--- OUTSIDE RECORDS SUMMARY | 2024-12-16 22:56 | XMS_ITS | Encounter Summary ---
Author Organization [place] Address [address] [facility] [place] [address] Care Team Providers Care Cane Weigher Name Role Phone Julito Banuelos MD Primary Care Provider [phone] Julito Banuelos MD Unavailable Aleshia Henriquez RD Unavailable Unavailable Mary Kay Jones [facility] Unavailable Unavailable Susannah Blankenship [facility] Unavailable Carolyn Huynh [facility] Unavailable [phone] Vika Kevin APRN HEALTH SYSTEMS ANALYST Unavailable + Marilyn Willard MD Unavailable Carie Varela DO Unavailable [phone] Maylin May NP Unavailable [phone] Marisa Hernandez RN Unavailable Unavailable Vilma Long MD Unavailable Yasmeen Pendleton [facility] Unavailable Cole George Unavailable Fletcher Russell Unavailable Unavailable Bautista Casey MD Unavailable Jasmyn Oliver CHW Unavailable [phone] Vika Kevin APRN HEALTH SYSTEMS ANALYST Primary Care Prov ider Vika Kevin APRN [facility] Primary Care Prov ider Yasmeen Pendleton [facility] Unavailable [phone] Vika Kevin APRN [facility] Primary Care Prov ider Reason for Visit * Reason Onset Date Comments Refill Request 09/11/2019 Encounter Details Date Type Department Care Team (Late st Contact Info) Description 09/11/2019 MyC Refill [address] [place] [address] Julito Banuelos MD [address] [place] [address] Refill Request Social History Tobacco [...] on file Legal 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 CLAIM INVESTIGATOR Gender Identity Not on file Sexual Orientation Not on file Occupation Industry Job Start Date Job End Date Not on file Not on file Not on file Not on file documented as of this encounter Miscellaneous Notes * Telephone Encounter - Shanelle Corona RN - 09/13/2019 11:06 AM CLAIM INVESTIGATOR This was discontinued due to side effects. Sent mychart to patient asking if she is still taking. Ruth Muñoz RN [facility] [phone] M INVESTIGATOR * Telephone Encounter - Sandra Jesús - 09/12/2019 9:28 AM CST Requested Prescriptions Pending Prescriptions Disp Refills ??? donepezil (ARICEPT) 5 MG tablet Last Written Prescription Date: 08.08.19 Last Fill Quantity: 30 tablet, # refills: 3 Last office visit: 08/08/2019 with prescribing provider: Julito Banuelos MD Future Office Visit: Next 5 appointments (look out 90 days) Sep 12, 2019 2:00 PM CLAIM INVESTIGATOR SHORT with Susannah Blankenship [facility] ([facility] [address] [facility] [address] [facility] [phone] Sep 23, 2019 10:50 AM CLAIM INVESTIGATOR Office Visit with Julito Banuelos MD [facility] [address] [place] [phone] 30 tablet 3 Sig: Take 1 tablet [...] is 18 years of age or older M INVESTIGATOR documented in this encounter Plan of Treatment Not on file documented as of this encounter Visit Diagnoses Diagnosis 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) documented in this encounter Additional Health Concerns Infection Onset Date Last Indicated Resolved Time Rule Out COVID-19 07/25/2020 07/25/2020 07/26/2020 3:02 PM CDT Rule Out COVID-19 12/04/2020 12/04/2020 12/05/2020 6:04 PM CLAIM INVESTIGATOR Assessment Noted Time PHQ-9 Depression Total Score: 8 07/18/20 19 12:06 PM CDT documented as of this encounter Care Teams Cane Weigher Relationship Specialty Start Date End Date Julito Banuelos MD [address] [place] [address] [phone] PCP - General Family Practice 09/12/15 09/23/21 Vika Kevin APRN HEALTH SYSTEMS ANALYST [address] [place] [address] [phone] PCP - General Nurse Practitioner - Family 09/24/21 03/05/22 Vika Kevin APRN HEALTH SYSTEMS ANALYST [address] [place] [address] PCP - General Nurse Practitioner - Family 03/18/22 06/18/22 Vika Kevin APRN HEALTH SYSTEMS ANALYST [address] [place] [address] [phone] PCP - General Nurse Practitioner - Family 07/24/22 Julito Banuelos MD [address] [place] [address] [phone] Assigned PCP 02/17/16 07/21/[address] [place] [address] Pheresis Nurse Dietitian, Registered 04/14/19 Mary Kay Jones, [facility] Pharmacist 08/01/19 04/20/20 Susannah Blankenship, [facility] [address] [place] [address] [address] [place] [address] Pharmacist Pharmacist 08/08/19 04/15/21 Carolyn Huynh [facility] [address] [place] [address] Pharmacist Pharmacist 06/25/20 04/15/21 Vika Kevin APRN HEALTH SYSTEMS ANALYST [address] [place] [address] Assigned PCP 07/22/20 11/16/24 Marilyn Willard MD [address] [facility] [address] [place] [address] Assigned Surgical Provider 08/17/20 08/16/24 Carie Varela DO [address] [place] [address] Assigned Heart and Vascular Provider 08/17/20 01/19/21 Maylin May NP [address] [place] [address] Assigned Pediatric Specialist Provider 12/16/20 06/13/22 Marisa Rodrigues, RN Clinic Leakage Tester 01/15/21 02/26/21 Vilma Long MD [address] [place] [address] Assigned Heart and Vascular Provider 01/20/21 07/20/21 Yasmeen Pendleton [facility] [address] [place] [address] Pharmacist Pharmacist 06/04/21 01/15/22 Cole George LISW Lead Leakage Tester 06/13/21 10/07/21 Fletcher Up Community Health Worker 06/13/21 09/12/21 Bautista Casey MD [address] [place] [address] Assigned Heart and Vascular Provider 07/21/21 01/16/23 Jasmyn Oliver CHW Community Health Worker 09/13/21 10/07/21 Yasmeen Pendleton [facility] [address] [place] [address] Assigned MTM Pharmacist 03/22/22 01/02/23 documented as of this encounter
--- OUTSIDE RECORDS SUMMARY | 2024-12-16 22:56 | XMS_ITS | Encounter Summary ---
Author Organization [place] Address [address] [facility] [place] [address] Care Team Providers Care Blindstitch Lining Feller Name Role Phone Cortez Lu MD Primary Care Provider [phone] Niko Resendiz MD Primary Care Provider Carlie Mac MD Primary Care Provide r Angella Mendieta MD Primary Care Provider Julito Banuelos MD Primary Care Provider [phone] Julito Banuelos MD Unavailable Julito Banuelos MD Unavailable Aleshia Henriquez RD Unavailable Unavailable Mary Kay Jones [facility] Unavailable Unavailable Susannah Blankenship [facility] Unavailable [phone] Carolyn Huynh [facility] Unavailable [phone] Vika Kevin APRN [employer]ROAD BAGGAGE PORTER Unavailable + Marilyn Willard MD Unavailable [phone] Carie Varela DO Unavailable [phone] Maylin May NP Unavailable [phone] Marisa Rodrigues RN Unavailable Unavailable Vilma Long MD Unavailable + [phone] Yasmeen Pendleton [facility] Unavailable + [phone] Cole George Unavailable Fletcher Russell Unavailable Unavailable Bautista aCsey MD Unavailable Jasmyn Oliver [facility] Unavailable [phone] Vika Kevin APRN [facility] Primary Care Prov ider Vika Kevin APRN [facility] Primary Care Prov ider Yasmeen Pendleton [facility] Unavailable + [phone] [facility] Primary Care Prov ider Encounter Details Date Type Department Care Team (Late st Contact Info) Description 02/01/2013 Office Visit-[facility] Heart [address] [place] [address] Reji Davis MD [address] [place], [place] [phone] Social History Tobacco Use Types Packs/Day Years Used Date Smoking Tobacco: Former Cigarettes 0.3 15 0 10/26/1961 - 10/26/1976 Smokeless Tobacco: Never Alcohol Use Standard Drinks/Week Comments Yes 0 (1 standard drink = 0.6 oz pur e alcohol) 1-2 glasses of wine weekly Comments No Sex and Gender Information Value Date Recorded Sex Assigned at Not on file Legal 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 MANAGER OF INVESTIGATIONS Gender Identity Not on file Sexual Orientation Not on file Occupation Industry Job Start Date Job End Date Not on file Not on file Not on file Not on file documented as of this encounter Progress Notes * Reji Davis MD - 02/01/2013 2:34 PM CDT Progress Note Created by: Reji Davis Dictation # [id number] DATE: 01/28/2013 MARIALUISA COSBY DATE OF : 1940 AGE: [age] years old Referring Physician: CORTEZ LU Referring Clinic: [facility] CURRENT DIAGNOSES 1. Diabetes Piorkzim-Lnx-Pvbexrh Dependent, 250.00 2. - Hyperlipidemia mixed, 272.2 3. - Hypertension, 401.1 4. - CAD, 414.00 ALLERGIES lisinopril Nitrofurantoin Nitrofurantoin Macrocrystal pramipexole Di-HCl Sulfasalazine tolterodine tartrate zolpidem tartrate MEDICATIONS (prior to changes made today) 1. Asmanex Twisthaler 220 mcg (120 doses) Aerosol Powdr [facility] Activ[employer]hl, Take as Directed 2. aspirin, buffered [...] daily 9. Nasacort AQ 55 mcg Aerosol, [place], Take as Directed 10. Plavix 75 mg [...] HISTORY OF PRESENT ILLNESS INDICATION: History of xnw-QS-ymzhyyk elevation [place], here to establish care. Ms. Cosby is a very pleasant 72-year-old female with a history of hypertension, hyperlipidemia,and type 2 diabetes mellitus. She was wintering in [place] when she developed acute onset one evening of back pain with radiation into her chest. She also had associated slight shortness of breath. She had had complaints of shortness of breath with exertion for some time, but it appeared worse the several weeks prior to this event. She subsequently went to the Emergency Room and was found to havehad a fcj-DQ-mnanwdi elevation MO. On 12/27/12 she was taken to the Cardiac Catheterization Lab at [facility] in [place], [place]. There she was found to have significant disease of the left circumflex artery. She underwent two drug-eluting stent implantations. The first was a 2.5x12 mm [place] Resolute drug-eluting stent to the mid circumflex. The second was a 3.0x15 mm [place] Resolute drug-eluting stent to the proximal left [...] on the echocardiogram. She has returned to [place] and states that she has been feeling tired but she has had no recurrent anginal symptoms. She denies any recurrent back pain or shortness of breath. Currently she has been having some dyspnea with exertion but she attributes this to not having taken her Lasix as she recently drove back from [place]. She is planning to take her Lasix over the next several days. She denies any orthopnea. No paroxysmal nocturnal dyspnea. No nausea, vomiting, diaphoresis, syncope, or presyncope. PAST HISTORY Past Medical Illnesses: asthma, HTN, hypothyoidism, diabetes, hyperlipidemia, major depression, anxiety Past Cardiac Illnesses: CAD, s/p MO Surgeries/Procedures - General: hysterectomy Cardiac/Vasc Procedures-Invasive: left heart cath 12/2012 ([place]) Cardiology Procedures-NonInvasive: echocardiogram Jun 2007, myocardial perfusion (Nuc) Jun 2007, echo 12/2012 ([place]) Cardiac Cath Results: 12/2012 [place] Resolute NELIA to the mid and prox [...] - lives with and been living in [place] for 3 months; Place of - [facility]; REVIEW OF SYSTEMS GENERAL hosp f/u, feeling [...] takes allergy shots, allergies get worse in [place] but they can get bad in [place] too PHYSICAL EXAMINATION VITAL SIGNS: Blood Pressure: [...] #0 (Zero) Nasacort AQ 55 mcg Aerosol, [place], Take as Directed, #0 (Zero) Plavix 75 [...] (Zero) Physician Order IMPRESSIONS/PLAN 1. History of sih-LC-guzsfay elevation MO. 2. Coronary artery disease - status post [...] her up for cardiac rehab in the [place] office since this is where she lives. [...] days while she was traveling back from [place]. She is to contact the clinic should [...] Out COVID-19 12/04/2020 12/04/2020 12/05/2020 6:04 PM MANAGER OF INVESTIGATIONS documented as of this encounter Care Teams Blindstitch Lining Feller Relationship Specialty Start Date End Date Cortez Lu MD XXX RETIRED XXX [address] [place] [address] PCP - General 12/10/01 01/10/14 Niko Resendiz MD [address] [address] PCP - General Internal Medicine 01/11/14 01/29/14 Carlie Mac MD [address] [place] [address] PCP - General Pediatrics 01/30/14 07/17/15 Angella Mendieta MD [address] [place] [address] PCP - General Family Practice 07/18/15 09/11/15 Julito Banuelos MD [address] [place] [address] PCP - General Family Practice 09/12/15 09/23/21 Julito Banuelos MD [address] [place] [address] PCP - Assigned PCP 02/17/16 12/28/18 Vika Kevin APRN RA[employer]RO[employer] BAGGAGE PORTER [address] [place] [address] PCP - General Nurse Practitioner - Family 09/24/21 03/05/22 Vika Kevin APRN RA[employer]RO[employer] BAGGAGE PORTER [address] [place] [address] PCP - General Nurse Practitioner - Family 03/18/22 06/18/22 Vika Kevin APRN RAILRO[employer] BAGGAGE PORTER [address] [place] [address] PCP - General Nurse Practitioner - Family 07/24/22 Julito Banuelos MD [address] [place] [address] [phone] Assigned PCP 02/17/16 07/21/[address] [place] [address] Roto Rooter Operator Dietitian, Registered 04/14/19 Mary Kay Jones, [facility] Pharmacist 08/01/19 04/20/20 [facility] [address] [place] [address] [address] [place], [place] [phone] Pharmacist Pharmacist 08/08/19 04/15/21 Carolyn Huynh [facility] [address] [place], [place] [address] Pharmacist Pharmacist 06/25/20 04/15/21 Vika Kevin APRN [employer]RO[employer] BAGG[employer]ORTER [address] [place] [address] [phone] Assigned PCP 07/22/20 11/16/24 Marilyn Willard MD [address] [place] [address] [address] [place], [place] [address] Assigned Surgical Provider 08/17/20 08/16/24 Carie Varela DO [address] [place], [place] [phone] Assigned Heart and Vascular Provider 08/17/20 01/19/21 Maylin May NP [address] [place], [place] [phone] Assigned Pediatric Specialist Provider 12/16/20 06/13/22 Marisa Rodrigues, RN Clinic Fresh Work Inspector 01/15/21 02/26/21 Vilma Long MD [address] [place] [address] Assigned Heart and Vascular Provider 01/20/21 07/20/21 [facility] [address] [place], [place] [address] Pharmacist Pharmacist 06/04/21 01/15/22 Cole George LISW Lead Fresh Work Inspector 06/13/21 10/07/21 Fletcher Up Community Health Worker 06/13/21 09/12/21 Bautista Casey MD [address] [place] [address] Assigned Heart and Vascular Provider 07/21/21 01/16/23 Jasmyn Oliver CHW Community Health Worker 09/13/21 10/07/21 Yasmeen Pendleton [facility] [address] [place] [address] Assigned MTM Pharmacist 03/22/22 01/02/23 documented as of this encounter
--- OUTSIDE RECORDS SUMMARY | 2024-12-16 22:57 | XMS_ITS | Encounter Summary ---
Author Organization [place] Address [address] [facility] [place] [address] Care Team Providers Care Vegetable Farm Worker Name Role Phone Andrew Lu MD Primary Care Provider [phone] Niko Resendiz MD Primary Care Provider Carlie Mac MD Primary Care Provide r Angella Mendieta MD Primary Care Provider Julito Banuelos MD Primary Care Provider [phone] Julito Banuelos MD Unavailable Julito Banuelos MD Unavailable Aleshia Henriquez RD Unavailable Unavailable Mary Kay Jones [facility] Unavailable Unavailable Susannah Blankenship [facility] Unavailable [phone] Carolyn Huynh [facility] Unavailable [phone] Vika Kevin APRN PHOTOENGRAVING APPRENTICE Unavailable + Marilyn Willard MD Unavailable [phone] Carie Varela DO Unavailable +[phone] Maylin May NP Unavailable [phone] Marisa Rodrigues RN Unavailable Unavailable Vilma Long MD Unavailable + [phone] Yasmeen Pendleton [facility] Unavailable [phone] Cole George Unavailable Fletcher Russell Unavailable Unavailable Bautista Casey MD Unavailable AnnyJasmyn tracey [facility] Unavailable [phone] Vika Kevin APRN [facility] Primary Care Prov ider Vika Kevin APRN [facility] Primary Care Prov ider Yasmeen Pendleton [facility] Unavailable [phone] 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 Chronic sinusitis. 2. [...] recover from anesthesia. Toni LOPEZ MD Document: [id number] [place], [place] MARIALUISA COSBY OPERATIV E REPORT Page 2 of 2 LCN:SDS DSC: 06/23/2003 [place], [place] Name: MR #: : Procedure Date: [...] Out COVID-19 12/04/2020 12/04/2020 12/05/2020 6:04 PM TIE KNITTER HELPER documented as of this encounter Care Teams Vegetable Farm Worker Relationship Specialty Start Date End Date Andrew Lu MD XXX RETIRED XXX [address] [place] [address] PCP - General 12/10/01 01/10/14 Niko Resendiz MD [address] [address] PCP - General Internal Medicine 01/11/14 01/29/14 Carlie Mac MD [address] [place] [address] PCP - General Pediatrics 01/30/14 07/17/15 Angella Mendieta MD [address] [place] [address] PCP - General Family Practice 07/18/15 09/11/15 Julito Banuelos MD [address] [place] [address] PCP - General Family Practice 09/12/15 09/23/21 Julito Banuelos MD [address] [place] [address] PCP - Assigned PCP 02/17/16 12/28/18 Vika Kevin APRN PHOTOENGRAVING APPRENTICE [address] [place] [address] PCP - General Nurse Practitioner - Family 09/24/21 03/05/22 Vika Kevin APRN PHOTOENGRAVING APPRENTICE [address] [place] [address] PCP - General Nurse Practitioner - Family 03/18/22 06/18/22 Vika Kevin APRN PHOTOENGRAVING APPRENTICE [address] [place] [address] PCP - General Nurse Practitioner - Family 07/24/22 Julito Banuelos MD [address] [place] [address] 338[address] Assigned PCP 02/17/16 07/21/20 Aleshia Henriquez, DAVE [address] [place] [address] Precision Thread Grinder Operator Dietitian, Registered 04/14/19 Mary Kay Jones, [facility] Pharmacist 08/01/19 04/20/20 [facility] [address] [place] [address] [address] [place], [place] [address] Pharmacist Pharmacist 08/08/19 04/15/21 [facility] [address] [place], [place] [address] Pharmacist Pharmacist 06/25/20 04/15/21 Vika Kevin APRN PHOTOENGRAVING APPRENTICE [address] [place] [address] Assigned PCP 07/22/20 11/16/24 Marilyn Willard MD [address] [place] [address] [address] [place], [place] 921025 Assigned Surgical Provider 08/17/20 08/16/24 Carie Varela DO [address] [place], [place] [address] Assigned Heart and Vascular Provider 08/17/20 01/19/21 Maylin May NP [address] [place] [address] Assigned Pediatric Specialist Provider 12/16/20 06/13/22 Marisa Rodrigues, RN Clinic Scale Installer 01/15/21 02/26/21 Vilma Long MD [address] [place] [address] Assigned Heart and Vascular Provider 01/20/21 07/20/21 [facility] [address] [place] [address] Pharmacist Pharmacist 06/04/21 01/15/22 Cole George LISW Lead Scale Installer 06/13/21 10/07/21 Fletcher Up Community Health Worker 06/13/21 09/12/21 Bautista Casey MD [address] [place] [address] Assigned Heart and Vascular Provider 07/21/21 01/16/23 Jasmyn Oliver CHW Community Health Worker 09/13/21 10/07/21 [facility] [address] [place], [place] [address] Assigned MTM Pharmacist 03/22/22 01/02/23 documented as of this encounter
--- OUTSIDE RECORDS SUMMARY | 2024-12-16 22:57 | XMS_ITS | Encounter Summary ---
Author Organization [place] Address [address] [facility] [place] [address] Care Team Providers Care Metal Ceiling Hanger Name Role Phone Julito Banuelos MD Primary Care Provider [phone] Julito Banuelos MD Unavailable Aleshia Henriquez RD Unavailable Unavailable Mary Kay Jones [facility] Unavailable Unavailable Susannah Blankenship [facility] Unavailable [phone] Carolyn Huynh [facility] Unavailable [phone] Vika Kevin APRN ORTHOPAEDIC NURSE Unavailable + Marilyn Willard MD Unavailable Carie Varela DO Unavailable [phone] Maylin May NP Unavailable [phone] Marisa Hernandez RN Unavailable Unavailable Vilma Long MD Unavailable Yasmeen Pendleton [facility] Unavailable [phone] Cole George Unavailable Fletcher Russell Unavailable Unavailable Bautista Casey MD Unavailable Jasmyn Oliver [facility] Unavailable [phone] Vika Kevin APRN ORTHOPAEDIC NURSE Primary Care Prov ider Vika Kevin APRN [facility] Primary Care Prov ider Yasmeen Pendleton [facility] Unavailable [phone] Vika Kevin APRN [facility] Primary Care Prov ider Encounter Details Date Type Department Care Team (Late st Contact Info) Description 03/28/2020 MyC Medical Advice [facility] [address] [address] Panda Sibley MD [address] [place], [place] [id number] Social History Tobacco Use Types Packs/Day Years [...] on file 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 Gender Identity Not on file Sexual Orientation [...] Out COVID-19 12/04/2020 12/04/2020 12/05/2020 6:04 PM CHILDREN'S MINISTER Assessment Noted Time PHQ-9 Depression Total Score: 8 07/18/20 19 12:06 PM CDT documented as of this encounter Care Teams Metal Ceiling Hanger Relationship Specialty Start Date End Date Julito Banuelos MD [address] [place] [address] PCP - General Family Practice 09/12/15 09/23/21 Vika Kevin APRN ORTHOPAEDIC NURSE [address] [place] [address] PCP - General Nurse Practitioner - Family 09/24/21 03/05/22 Vika Kevin APRN ORTHOPAEDIC NURSE [address] [place] [address] 587772 PCP - General Nurse Practitioner - Family 03/18/22 06/18/22 Vika Kevin APRN ORTHOPAEDIC NURSE [address] [place] [address] 589912 PCP - General Nurse Practitioner - Family 07/24/22 Julito Banuelos MD [address] [place] [address] 127172 Assigned PCP 02/17/16 07/21/[address] [place] [address] A&P Mechanic Dietitian, Registered 04/14/19 Mary Kay Jones [facility] Pharmacist 08/01/19 04/20/20 Susannah Blankenship [facility] [address] [place] [address] 812 [place], [place] 36[address]75 Pharmacist Pharmacist 08/08/19 04/15/21 Carolyn Huynh [facility] [address] [place], [place] [address] Pharmacist Pharmacist 06/25/20 04/15/21 Vika Kevin APRN ORTHOPAEDIC NURSE [address] [place], [place] 292082 Assigned PCP 07/22/20 11/16/24 Marilyn Willard MD 420 [facility] [address] [place], [place] [address] Assigned Surgical Provider 08/17/20 08/16/24 Carie Varela DO [address] [place] [address] Assigned Heart and Vascular Provider 08/17/20 01/19/21 Maylin May NP [address] [place], [place] 41[address] Assigned Pediatric Specialist Provider 12/16/20 06/13/22 Marisa Rodrigues, RN Clinic Lacquer Pin Press Operator 01/15/21 02/26/21 Vilma Long MD [address] [place] [address] Assigned Heart and Vascular Provider 01/20/21 07/20/21 Yasmeen Pendleton [facility] [address] [place] [address] Pharmacist Pharmacist 06/04/21 01/15/22 Cole George LISW Lead Lacquer Pin Press Operator 06/13/21 10/07/21 Fletcher Up Community Health Worker 06/13/21 09/12/21 Bautista Casey MD [address] [place] [address] Assigned Heart and Vascular Provider 07/21/21 01/16/23 Jasmyn Oliver CHW Community Health Worker 09/13/21 10/07/21 Yasmeen Pendleton [facility] [address] [place] [address] Assigned MTM Pharmacist 03/22/22 01/02/23 documented as of this encounter
--- OUTSIDE RECORDS SUMMARY | 2024-12-16 22:57 | XMS_ITS | Encounter Summary ---
Author Organization [place] Address [address] [facility] [place] [address] Care Team Providers Care Corrective Therapy Aide Teacher Name Role Phone Julito Banuelos MD Primary Care Provider [phone] Julito Banuelos MD Unavailable Aleshia Henriquez RD Unavailable Unavailable Susannah Blankenship [facility] Unavailable [phone] Carolyn Huynh [facility] Unavailable [phone] Vika Kevin APRN FILTER TENDER JELLY Unavailable + Marilyn Willadr MD Unavailable [phone] Carie Varela DO Unavailable [phone] Maylin May NP Unavailable [phone] Marisa Hernandez RN Unavailable Unavailable Vilma Long MD Unavailable + [phone] Yasmeen Pendleton [facility] Unavailable Cole George Unavailable Fletcehr Russell Unavailable Unavailable Bautista Casey MD Unavailable [phone] Jasmyn Olvier Unavailable [phone] Vika Kevin APRN FILTER TENDER JELLY Primary Care Prov ider Vika Kevin APRN [facility] Primary Care Prov ider Yasmeen Pendleton [facility] Unavailable Vika Kevin APRN [facility] Primary Care Prov ider Encounter Details Date Type Department Care Team (Late st Contact Info) Description 05/08/2020 MyC Medical Advice [address] [place] [address] Susannah Blankenship, [facility] [address] [facility] 812 [place] [address] Social History Tobacco Use Types Packs/Day Years [...] on file 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 Gender Identity Not on file Sexual [...] Out COVID-19 12/04/2020 12/04/2020 12/05/2020 6:04 PM CEMENT WORKER Assessment Noted Time PHQ-9 Depression Total Score: 8 07/18/20 19 12:06 PM CDT documented as of this encounter Care Teams Corrective Therapy Aide Teacher Relationship Specialty [place] [address] [place] [address] PCP - General Family Practice 09/12/15 09/23/21 Vika Kevin APRN FILTER TENDER JELLY [address] [place] [address] PCP - General Nurse Practitioner - Family 09/24/21 03/05/22 Vika Kevin APRN FILTER TENDER JELLY [address] [place] [address] PCP - General Nurse Practitioner - Family 03/18/22 06/18/22 Vika Kevin APRN FILTER TENDER JELLY [address] [place] [address] PCP - General Nurse Practitioner - Family 07/24/22 Julito Banuelos MD [address] [place] [address] 668342 Assigned PCP 02/17/16 07/21/[address] [place] [address] 21391 Nut Dehydrator Operator Dietitian, Registered 04/14/19 Susannah Blankenship, [facility] [address] [place] [address] 812 [place] [address] Pharmacist Pharmacist 08/08/19 04/15/21 Carolyn Huynh [facility] [address] [place] [address] Pharmacist Pharmacist 06/25/20 04/15/21 Vika Kevin APRN FILTER TENDER JELLY [address] [place] [address] Assigned PCP 07/22/20 11/16/24 Marilyn Willard MD [address] [place] [address] [address] [place] [address] Assigned Surgical Provider 08/17/20 08/16/24 Carie Varela DO [address] [place] [address] Assigned Heart and Vascular Provider 08/17/20 01/19/21 Maylin May NP 2155 [place] [address] Assigned Pediatric Specialist Provider 12/16/20 06/13/22 Marisa Rodrigues, RN Clinic Grader Marker 01/15/21 02/26/21 Vilma Long MD [address] [place] [address] Assigned Heart and Vascular Provider 01/20/21 07/20/21 Yasmeen Pendleton [facility] [address] [place] [address] [phone] Pharmacist Pharmacist 06/04/21 01/15/22 Cole George LISW Lead Grader Marker 06/13/21 10/07/21 Fletcher Up Community Health Worker 06/13/21 09/12/21 Bautista Casey MD [address] [place] [address] Assigned Heart and Vascular Provider 07/21/21 01/16/23 Jasmyn Oliver CHW Community Health Worker 09/13/21 10/07/21 Yasmeen Pendleton [facility] [address] [place] [address] Assigned MTM Pharmacist 03/22/22 01/02/23 documented as of this encounter
--- OUTSIDE RECORDS SUMMARY | 2024-12-16 22:57 | XMS_ITS | Encounter Summary ---
Author Organization [place] Address [address] [facility] [place] [address] Care Team Providers Care Wet Suit Gluer Name Role Phone Julito Banuelos MD Primary Care Provider [phone] Julito Banuelos MD Unavailable Aleshia Henriquez RD Unavailable Unavailable Susannah Blankenship [facility] Unavailable [phone] Carolyn Huynh [facility] Unavailable [phone] Vika Kevin APRN STITCH WELDER Unavailable + Marilyn Willard MD Unavailable [phone] Carie Varela DO Unavailable [phone] Maylin May NP Unavailable [phone] Marisa Hernandez RN Unavailable Unavailable Vilma Long MD Unavailable + [phone] Yasmeen Pendleton [facility] Unavailable Cole George Unavailable Fletcher Russell Unavailable Unavailable Bautista Casey MD Unavailable [phone] Jasmyn Oliver Unavailable [phone] Vika Kevin APRN STITCH WELDER Primary Care Prov ider Vika Kevin APRN [facility] Primary Care Prov ider Yasmeen Pendleton [facility] Unavailable [phone] Vika Kevin APRN [facility] Primary Care Prov ider Encounter Details Date Type Department Care Team (Late st Contact Info) Description 05/15/2020 MyC Medical Advice [address] [place] [address] Susannah Blankenship, [facility] 420 [facility] [address] [place] [address] Social History Tobacco Use Types Packs/Day Years [...] on file Legal 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 Gender Identity Not on file [...] Out COVID-19 12/04/2020 12/04/2020 12/05/2020 6:04 PM SWEATBAND CUTTING 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 Assessment Noted Time PHQ-9 Depression Total Score: 8 07/18/20 19 12:06 PM CDT documented as of this encounter Care Teams Wet Suit Gluer Relationship Specialty [place] [address] [place] [address] PCP - General Family Practice 09/12/15 09/23/21 Vika Kevin APRN STITCH WELDER [address] [place] [address] PCP - General Nurse Practitioner - Family 09/24/21 03/05/22 Vika Kevin APRN STITCH WELDER [address] [place] [address] PCP - General Nurse Practitioner - Family 03/18/22 06/18/22 Vika Kevin APRN STITCH WELDER [address] [place] [address] PCP - General Nurse Practitioner - Family 07/24/22 uJlito Banuelos MD [address] [place] [address] 184862 Assigned PCP 02/17/16 07/21/[address] [place] [address] Human Resources Operations Specialist Dietitian, Registered 04/14/19 Susannah Blankenship, [facility] [address] [place] [address] 8[address] [place] [address] Pharmacist Pharmacist 08/08/19 04/15/21 Carolyn Huynh [facility] [address] [place] [address] Pharmacist Pharmacist 06/25/20 04/15/21 Vika Kevin APRN STITCH WELDER [address] [place] [address] Assigned PCP 07/22/20 11/16/24 Marilyn Willard MD [address] [place] [address] 394 [place] [address] Assigned Surgical Provider 08/17/20 08/16/24 Carie Varela DO [address] [place] [address] Assigned Heart and Vascular Provider 08/17/20 01/19/21 Maylin May NP [address] [place] [address] Assigned Pediatric Specialist Provider 12/16/20 06/13/22 Marisa Rodrigues, RN Clinic Mayonnaise Mixer 01/15/21 02/26/21 Vilma Long MD [address] [place] [address] Assigned Heart and Vascular Provider 01/20/21 07/20/21 Yasmeen Pendleton [facility] [address] [place] [address] [phone] Pharmacist Pharmacist 06/04/21 01/15/22 Cole George LISW Lead Mayonnaise Mixer 06/13/21 10/07/21 Fletcher Up Community Health Worker 06/13/21 09/12/21 Bautista Casey MD [address] [place] [address] Assigned Heart and Vascular Provider 07/21/21 01/16/23 Jasmyn Oliver CHW Community Health Worker 09/13/21 10/07/21 Yasmeen Pendleton [facility] [address] [place] [address] Assigned MTM Pharmacist 03/22/22 01/02/23 documented as of this encounter
--- OUTSIDE RECORDS SUMMARY | 2024-12-16 22:57 | XMS_ITS | Encounter Summary ---
Author Organization [place] Address [address] [facility] [place] [address] Care Team Providers Care Physiotherapy Assistant Name Role Phone Julito Banuelos MD Primary Care Provider [phone] Unavailable Unavailable Susannah Blankenship [facility] Unavailable [phone] Carolyn Huynh [facility] Unavailable [phone] Vika Kevin APRN [facility] Unavailable + Marilyn Willard MD Unavailable [phone] Carie Varela DO Unavailable [phone] Maylin May NP Unavailable [phone] Marisa Hernandez RN Unavailable Unavailable Vilma Long MD Unavailable + [phone] Yasmeen Pendleton [facility] Unavailable Cole George Unavailable Fletcher Russell Unavailable Unavailable Bautista Casey MD Unavailable [phone] Jasmyn Oliver Unavailable [phone] Vika Kevin APRN [facility] Primary Care Prov ider Vika Kevin APRN [facility] Primary Care Prov ider Yasmeen Pendleton [facility] Unavailable [phone] Vika Kevin APRN GENERAL PASSENGER AGENT Primary Care Prov ider Encounter Details Date Type Department Care Team (Late st Contact Info) Description 01/07/2021 MyC Medical Advice [facility] [address] [facility] [address] [place] [address] [facility] [address] [place] [address] Social History Tobacco Use Types [...] file Legal 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 EGG 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 Gender Identity Not on file Sexual Orientation [...] Depression Total Score: 10 020 9:30 AM EGG PROCESSOR documented as of this encounter Care Teams Physiotherapy Assistant Relationship Specialty Start Date End Date Julito Banuelos MD [address] [place] [address] PCP - General Family Practice 09/12/15 09/23/21 Vika Kevin APRN GENERAL PASSENGER AGENT [address] [place] [address] PCP - General Nurse Practitioner - Family 09/24/21 03/05/22 Vika Kevin APRN GENERAL PASSENGER AGENT [address] [place] [address]27 PCP - General Nurse Practitioner - Family 03/18/22 06/18/22 Vika Kevin, JAIME GENERAL PASSENGER AGENT [address] [place] [address] PCP - General Nurse Practitioner - Family 07/24/[address] [place] [address] Enterprise Integration Developer Dietitian, Registered 04/14/19 Susannah Blankenship, [facility] [address] [place] [address] 8[address] [place] [address] Pharmacist Pharmacist 08/08/19 04/15/21 Carolyn Huynh [facility] [address] [place] [address] Pharmacist Pharmacist 06/25/20 04/15/21 Vika Kevin, JAIME GENERAL PASSENGER AGENT [address] [place] [address] Assigned PCP 07/22/20 11/16/24 Marilyn Willard MD [address] [place] [address] 394 [place] [address] Assigned Surgical Provider 08/17/20 08/16/24 Carie Varela DO [address] [place] [address] Assigned Heart and Vascular Provider 08/17/20 01/19/21 Maylin May NP [address] [place] [address] Assigned Pediatric Specialist Provider 12/16/20 06/13/22 Marisa Rodrigues, RN Clinic Oracle Identity Management Consultant 01/15/21 02/26/21 Vilma Long MD [address] [place] [address] Assigned Heart and Vascular Provider 01/20/21 07/20/21 [facility] [address] [place] [address] [phone] Pharmacist Pharmacist 06/04/21 01/15/22 Cole George LISW Lead Oracle Identity Management Consultant 06/13/21 10/07/21 Fletcher Up Community Health Worker 06/13/21 09/12/21 Bautista Casey MD [address] [place] [address] Assigned Heart and Vascular Provider 07/21/21 01/16/23 Jasmyn Oliver CHW Community Health Worker 09/13/21 10/07/21 Yasmeen Pendleton [facility] [address] [place] [address] Assigned MTM Pharmacist 03/22/22 01/02/23 documented as of this encounter
--- OUTSIDE RECORDS SUMMARY | 2024-12-16 22:57 | XMS_ITS | Encounter Summary ---
Author Organization [place] Address [address] [place] [address] Care Team Providers Care Lime Kiln Tender Name Role Phone Julito Banuelos MD Primary Care Provider [phone] Unavailable Unavailable Susannah Blankenship [facility] Unavailable [phone] Carolyn Huynh [facility] Unavailable [phone] Vika Kevin APRN [facility] Unavailable + Marilyn Willard MD Unavailable [phone] Maylin May NP Unavailable [phone] Vilma Long MD Unavailable + [phone] Yasmeen Pendleton [facility] Unavailable [phone] Cole George Unavailable Fletcher Russell Unavailable Unavailable Bautista Casey MD Unavailable [phone] Jasmyn Oliver Unavailable [phone] Vika Kevin APRN [facility] Primary Care Prov ider Vika Kevin APRN [facility] Primary Care Prov ider Yasmeen Pendleton [facility] Unavailable [phone] Vika Kevin APRN [facility] Primary Care Prov ider Encounter Details Date Type Department Care Team (Late st Contact Info) Description 03/18/2021 MyC Medical Advice [address] [place] [address] Susannah Blankenship, [facility] 420 [facility] [address] [place] [address] Social History Tobacco Use Types Packs/Day Years [...] on file Legal 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 CONDUIT 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 Gender Identity Not on file Sexual [...] Depression Total Score: 10 020 9:30 AM CONDUIT WORKER documented as of this encounter Care Teams Lime Kiln Tender Relationship Specialty Start Date End Date Julito Banuelos MD [address] [place] [address] [phone] PCP - General Family Practice 09/12/15 09/23/21 Vika Kvein APRN [facility] [address] [place] [address] [phone] PCP - General Nurse Practitioner - Family 09/24/21 03/05/22 Vika Kevin APRN [facility] [address] [place] [address] 79163 PCP - General Nurse Practitioner - Family 03/18/22 06/18/22 Vika Kevin APRN [facility] [address] [place] [address]85 PCP - General Nurse Practitioner - Family 07/24/[address] [place] [address] Wharfinger Chief Dietitian, Registered 04/14/19 Susannah Blankenship, [facility] [address] [facility] [address] [place] [address] Pharmacist Pharmacist 08/08/19 04/15/21 [facility] [address] [place] [address] Pharmacist Pharmacist 06/25/20 04/15/21 Vika Kevin APRN [facility] [address] [place] [address] Assigned PCP 07/22/20 11/16/24 Marilyn Willard MD 420 [facility] [address] [place], [place] [address] Assigned Surgical Provider 08/17/20 08/16/24 Maylin May NP [address] [place] [address] Assigned Pediatric Specialist Provider 12/16/20 06/13/22 Vilma Long MD [address] [place] [address] Assigned Heart and Vascular Provider 01/20/21 07/20/21 [facility] [address] [place] [address] [id number] Pharmacist Pharmacist 06/04/21 01/15/22 Cole George LISW Lead Drill Press Operator 06/13/21 10/07/21 Fletcher Up Community Health Worker 06/13/21 09/12/21 Bautista Casey MD [address] [place] [address] Assigned Heart and Vascular Provider 07/21/21 01/16/23 Jasmyn Oliver [facility] Community Health Worker 09/13/21 10/07/21 Yasmeen Pendleton, [facility] 9 [place] [address] Assigned MTM Pharmacist 03/22/22 01/02/23 documented as of this encounter
--- OUTSIDE RECORDS SUMMARY | 2024-12-16 22:57 | XMS_ITS | Encounter Summary ---
Author Organization [place] Address [address] [facility] [place] [address] Care Team Providers Care Cotton Ball Bagger Name Role Phone Carlie Mac MD Primary Care Provide r Angella Mendieta MD Primary Care Provider Julito Banuelos MD Primary Care Provider Julito Banuelos MD Unavailable Julito Banuelos MD Unavailable Aleshia Henriquez RD Unavailable Unavailable Mary Kay Jones [facility] Unavailable Unavailable Susannah Blankenship [facility] Unavailable Carolyn Huynh [facility] Unavailable Vika Kevin APRN ARTIST CONSULTANT Unavailable + Marilyn Willard MD Unavailable [phone] Carie Varela DO Unavailable Maylin May NP Unavailable [phone] Marisa Hernandez RN Unavailable Unavailable Vilma Long MD Unavailable Yasmeen Pendleton [facility] Unavailable Cole George Unavailable Fletcher Russell Unavailable Unavailable IpBautista MD Unavailable [phone] Jasmyn Oliver CH Unavailable [phone] Vika Kevin APRN [facility] Primary Care Prov ider Vika Kevin APRN [facility] Primary Care Prov ider Yasmeen Pendleton [facility] Unavailable Vika Kevin APRN [facility] Primary Care Prov ider Encounter Details Date Type Department Care Team (Late st Contact Info) Description 10/12/2014 MyC Medical Advice [address] [address] Sara Robison Y, HEAT TREAT OPERATOR Social History Tobacco Use Types Packs/Day Years Used Date Smoking Tobacco: Former Cigarettes 0.3 15 0 10/26/1961 - 10/26/1976 Smokeless Tobacco: Never Alcohol Use Standard Drinks/Week Comments Yes 0 (1 standard drink = 0.6 oz pur e alcohol) 1-2 glasses of wine weekly Comments No Sex and Gender Information Value Date Recorded Sex Assigned at Not on file Legal 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 HVAC SERVICES PROFESSIONAL Gender Identity Not on file Sexual Orientation [...] Out COVID-19 12/04/2020 12/04/2020 12/05/2020 6:04 PM HVAC SERVICES PROFESSIONAL documented as of this encounter Care Teams Cotton Ball Bagger Relationship Specialty Start Date End Date Carlie Mac MD [address] [place] [address] PCP - General Pediatrics 01/30/14 07/17/15 Angella Mendieta MD [address] [place] [address] PCP - General Family Practice 07/18/15 09/11/15 Julito Banuelos MD [address] [place] [address] PCP - General Family Practice 09/12/15 09/23/21 Julito Banuelos MD [address] [place] [address] PCP - Assigned PCP 02/17/16 12/28/18 Vika Kevin APRN ARTIST CONSULTANT [address] [place] [address] 34071 PCP - General Nurse Practitioner - Family 09/24/21 03/05/22 Vika Kevin APRN ARTIST CONSULTANT [address] [place] [address] PCP - General Nurse Practitioner - Family 03/18/22 06/18/22 Vika Kevin APRN ARTIST CONSULTANT [address] [place] [address] PCP - General Nurse Practitioner - Family 07/24/22 Julito Banuelos MD [address] [place] [address] Assigned PCP 02/17/16 07/21/[address] [place] [address] Project Safety Manager Dietitian, Registered 04/14/19 Mary Kay Jones, [facility] Pharmacist 08/01/19 04/20/20 Susannah Blankenship, [facility] [address] [facility] [address] [place] [address] Pharmacist Pharmacist 08/08/19 04/15/21 Carolyn Huynh, [facility] [address] [place], [place] [address] Pharmacist Pharmacist 06/25/20 04/15/21 Vika Kevin, TAX COLLECTION COORDINATOR ARTIST CONSULTANT [address] [place] [address] [phone] Assigned PCP 07/22/20 11/16/24 Marilyn Willard MD 420 [facility] 394 [place], [place] [address] Assigned Surgical Provider 08/17/20 08/16/24 Carie Varela DO [address] [place] [address] Assigned Heart and Vascular Provider 08/17/20 01/19/21 Maylin May NP [address] [place] [address] Assigned Pediatric Specialist Provider 12/16/20 06/13/22 Marisa Rodrigues, RN Clinic Shellfish Harvester 01/15/21 02/26/21 Vilma Long MD [address] [place] [address] Assigned Heart and Vascular Provider 01/20/21 07/20/21 Yasmene Pendleton [facility] [address] [place] [address] Pharmacist Pharmacist 06/04/21 01/15/22 Cole George LISW Lead Shellfish Harvester 06/13/21 10/07/21 Fletcher Up Community Health Worker 06/13/21 09/12/21 Bautista Casey MD [address] [place] [address] Assigned Heart and Vascular Provider 07/21/21 01/16/23 Jasmyn Oliver CHW Community Health Worker 09/13/21 10/07/21 Yasmeen Pendleton [facility] [address] [place] [address] Assigned MTM Pharmacist 03/22/22 01/02/23 documented as of this encounter
--- OUTSIDE RECORDS SUMMARY | 2024-12-16 22:57 | XMS_ITS | Encounter Summary ---
Author Organization [place] Address [address] [place] [address] Care Team Providers Care Savings Teller Name Role Phone Andrew Lu MD Primary Care Provider [phone] Niko Resendiz MD Primary Care Provider Carlie Mac MD Primary Care Provide r Angella Mendieta MD Primary Care Provider Julito Banuelos MD Primary Care Provider [phone] Julito Banuelos MD Unavailable Julito Banuelos MD Unavailable Aleshia Henriquez RD Unavailable Unavailable Mary Kay Jones [facility] Unavailable Unavailable Susannah Blankenship [facility] Unavailable [phone] [facility] Unavailable [phone] Vika Kevin APRN LINE OUT MAN Unavailable + Marilyn Willard MD Unavailable [phone] Carie Varela DO Unavailable [phone] Maylin May NP Unavailable [phone] Marisa Rodrigues RN Unavailable Unavailable Vilma Long MD Unavailable + [phone] [facility] Unavailable [phone] Cole George Unavailable Fletcher Russell Unavailable Unavailable Bautista Casey MD Unavailable TatyanaJasmyn anand [facility] Unavailable [phone] Vika Kevin APRN [facility] Primary Care Prov ider Vika Kevin APRN [facility] Primary Care Prov ider Yasmeen Pendleton [facility] Unavailable [phone] Vika Kevin APRN [facility] Primary Care Prov ider Encounter Details Date Type Department Care Team (Late st Contact Info) Description 07/02/[address] [phone] Jolene Martin Social History Tobacco Use Types [...] on file Legal 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 ELECTRONICS SPECIALIST Gender Identity Not on file Sexual Orientation Not on file documented as of this encounter Plan of Treatment Not on file documented as of this encounter Visit Diagnoses Not on filedocumented in this encounter Additional Health Concerns Infection Onset Date Last Indicated Resolved Time Rule Out COVID-19 07/25/2020 07/25/2020 07/26/2020 3:02 PM CDT Rule Out COVID-19 12/04/2020 12/04/2020 12/05/2020 6:04 PM ELECTRONICS SPECIALIST documented as of this encounter Care Teams Savings Teller Relationship Specialty Start Date End Date Andrew Lu MD XXX RETIRED XXX [address] [place] [phone] PCP - General 12/10/01 01/10/14 Niko Resendiz MD [address] [address] PCP - General Internal Medicine 01/11/14 01/29/14 Carlie Mac MD [address] [place] [address] PCP - General Pediatrics 01/30/14 07/17/15 Angella Mendieta MD [address] [place] [address] PCP - General Family Practice 07/18/15 09/11/15 Julito Banuelos MD [address] [place] [address] PCP - General Family Practice 09/12/15 09/23/21 Julito Banuelos MD [address] [place] [address] PCP - Assigned PCP 02/17/16 12/28/18 Vika Kevin APRN LINE OUT MAN [address] [place] [address] PCP - General Nurse Practitioner - Family 09/24/21 03/05/22 Vika Kevin APRN LINE OUT MAN [address] [place] [address] PCP - General Nurse Practitioner - Family 03/18/22 06/18/22 Vika Kevin APRN LINE OUT MAN [address] [place] [address] 077042 PCP - General Nurse Practitioner - Family 07/24/22 Julito Banuelos MD [address] [place] [address] [phone] Assigned PCP 02/17/16 07/21/20 Aleshia Henriquez, DAVE [address] [place] [address] Felt Hat Mellowing Machine Operator Dietitian, Registered 04/14/19 Mary Kay Jones, [facility] Pharmacist 08/01/19 04/20/20 Susannah Blankenship, [facility] [address] [place] [address] 8[address] [place], [place] [address] Pharmacist Pharmacist 08/08/19 04/15/21 [facility] [address] [place], [place] [address] Pharmacist Pharmacist 06/25/20 04/15/21 Vika Kevin APRN LINE OUT MAN [address] [place] [address] [phone] Assigned PCP 07/22/20 11/16/24 Marilyn Willard MD 420 [facility] 394 [place], [place] [address] Assigned Surgical Provider 08/17/20 08/16/24 Carie Varela DO [address] [place], [place] [address] Assigned Heart and Vascular Provider 08/17/20 01/19/21 Maylin May, JENNY [address] [place] [address] Assigned Pediatric Specialist Provider 12/16/20 06/13/22 Marisa Rodrigues, RN Clinic Designer Architect 01/15/21 02/26/21 Vilma Long MD [address] [place] [address] Assigned Heart and Vascular Provider 01/20/21 07/20/[address] [facility] [address] [place] [address] Pharmacist Pharmacist 06/04/21 01/15/22 Cole George LISW Lead Designer Architect 06/13/21 10/07/21 Fletcher Up Community Health Worker 06/13/21 09/12/21 Bautista Casey MD [address] [place] [address] Assigned Heart and Vascular Provider 07/21/21 01/16/23 Jasmyn Oliver CHW Community Health Worker 09/13/21 10/07/[address] [facility] [address] [place] [address] 784805 Assigned MTM Pharmacist 03/22/22 01/02/23 documented as of this encounter
--- OUTSIDE RECORDS SUMMARY | 2024-12-16 22:57 | XMS_ITS | Encounter Summary ---
Author Organization [place] Address [address] [facility] [place] [address] Care Team Providers Care Rheumatology Specialist Name Role Phone Julito Banuelos MD Primary Care Provider [phone] Unavailable Unavailable Vika Kevin APRN [facility] Unavailable + Marilyn Willard MD Unavailable [phone] Maylin May NP Unavailable [phone] Vilma Long MD Unavailable + [phone] Yasmeen Pendleton [facility] Unavailable + [phone] Cole George Unavailable Fletcher Russell Unavailable Unavailable Bautista Casey MD Unavailable [phone] Jasmyn Oliver Bryanna Unavailable [phone] Vika Kevin APRN [facility] Primary Care Prov ider Vika Kevin APRN [facility] Primary Care Prov ider Yasmeen Pendleton [facility] Unavailable + [phone] Vika Kevin APRN [facility] Primary Care Prov ider Reason for Visit * Reason Onset Date Comments Forms 06/26/2021 forms for LTC [facility] Encounter Details Date Type Department Care Team (Late st Contact Info) Description 06/26/[address] [phone] [place] [address] [place] [address] Forms (forms for LTC Insurance) Social History [...] and Family Not on file 06/14/2021 Attends [employer] Not on file 06/14 Active Member [...] place to sleep or slept in a penitentiary (including now)? 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 LAY MIDWIFE Gender Identity Not on file Sexual Orientation [...] to verify received, will send copy to [employer] for file. Panda Hollingsworth RN [employer] Triage * Telephone Encounter - Vika Kevin [...] clinic location was the form placed at?: [facility] Where the form was placed: Vika Kevin Box/Folder What number is listed as a contact on the form?: [phone] Additional comments: Fax to [phone] Call taken on 06/26/2021 at 1:01 PM by Maylin Diaz documented in this encounter Plan of Treatment Not on file documented as of this encounter Visit Diagnoses Not on filedocumented in this encounter Additional Health Concerns Assessment Noted Time PHQ-9 Depression Total Score: 10 021 3:56 PM CDT documented as of this encounter Care Teams Rheumatology Specialist Relationship Specialty Start Date End Date Julito Banuelos MD [address] [place] [address] [phone] PCP - General Family Practice 09/12/15 09/23/21 Vika Kevin APRN CONSTRUCTION EQUIPMENT MECHANIC [address] [place] [address] PCP - General Nurse Practitioner - Family 09/24/21 03/05/22 Vika Kevin APRN CONSTRUCTION EQUIPMENT MECHANIC [address] [place] [address] PCP - General Nurse Practitioner - Family 03/18/22 06/18/22 Vika Kevin APRN CONSTRUCTION EQUIPMENT MECHANIC [address] [place] [address] PCP - General Nurse Practitioner - Family 07/24/[address] [place] [address] Die Lay Out Worker Dietitian, Registered 04/14/19 Vika Kevin APRN CONSTRUCTION EQUIPMENT MECHANIC [address] [place] [address] Assigned PCP 07/22/20 11/16/24 Marilyn Willard MD [address] [place] [address] 394 [place] [address] Assigned Surgical Provider 08/17/20 08/16/24 Maylin May NP [address] [place] [address] Assigned Pediatric Specialist Provider 12/16/20 06/13/22 Vilma Long MD [address] [place] [address] Assigned Heart and Vascular Provider 01/20/21 07/20/21 [facility] [address] [place] [address] Pharmacist Pharmacist 06/04/21 01/15/22 Cole George LISW Lead Traveling Missionary 06/13/21 10/07/21 Fletcher Up Community Health Worker 06/13/21 09/12/21 Bautista Casey MD [address] [place] [address] Assigned Heart and Vascular Provider 07/21/21 01/16/23 Jasmyn Oliver CHW Community Health Worker 09/13/21 10/07/21 [facility] [address] [place] [address] Assigned MTM Pharmacist 03/22/22 01/02/23 documented as of this encounter
--- OUTSIDE RECORDS SUMMARY | 2024-12-16 22:57 | XMS_ITS | Encounter Summary ---
Author Organization [place] Address [address] [facility] [place] [address] Care Team Providers Care Baggage Handler Name Role Phone Carlie Mac MD Primary Care Provide r Angella Mendieta MD Primary Care Provider Julito Banuelos MD Primary Care Provider [phone] Julito Banuelos MD Unavailable Julito Banuelos MD Unavailable Aleshia [address]quez RD Unavailable Unavailable Mary Kay Jones [facility] Unavailable Unavailable Susannah Blankenship [facility] Unavailable Carolyn Huynh [facility] Unavailable Vika Kevin APRN PATENT SEARCHER Unavailable + Marilyn Willard MD Unavailable Carie Varela DO Unavailable Maylin May NP Unavailable [phone] Marisa Hernandez RN Unavailable Unavailable Vilma Long MD Unavailable Yasmeen Pendleton [facility] Unavailable Cole George Unavailable Fletcher Russell Unavailable Unavailable IpBautista MD Unavailable [phone] Jasmyn Oliver [facility] Unavailable [phone] Vika Kevin APRN [facility] Primary Care Prov ider Vika Kevin APRN [facility] Primary Care Prov ider Yasmeen Pendleton [facility] Unavailable [phone] Vika Kevin APRN [facility] Primary Care Prov ider Reason for Visit * Reason Onset Date Comments Other 09/30/2014 [facility] Encounter Details Date Type Department Care Team (Late st Contact Info) Description 09/30/2014 MyC Medical Advice [address] [address] Carlie Mac MD [address] [place] [address] [facility] Social History Tobacco Use Types Packs/Day [...] on file Legal 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 MARKETING DATABASE CONSULTANT Gender Identity Not on file Sexual Orientation [...] Out COVID-19 12/04/2020 12/04/2020 12/05/2020 6:04 PM MARKETING DATABASE CONSULTANT documented as of this encounter Care Teams Baggage Handler Relationship Specialty Start Date End Date Carlie Mac MD [address] [place], [place] [phone] PCP - General Pediatrics 01/30/14 07/17/15 Angella Mendieta MD [address] [place] [address] PCP - General Family Practice 07/18/15 09/11/15 Julito Banuelos MD [address] [place] [address] [phone] PCP - General Family Practice 09/12/15 09/23/21 Julito Banuelos MD [address] [place] [address] [phone] PCP - Assigned PCP 02/17/16 12/28/18 Vika Kevin APRN PATENT SEARCHER [address] [place] [address] PCP - General Nurse Practitioner - Family 09/24/21 03/05/22 Vika Kevin APRN PATENT SEARCHER [address] [place] [address] PCP - General Nurse Practitioner - Family 03/18/22 06/18/22 Vika Kevin APRN PATENT SEARCHER [address] [place] [address] PCP - General Nurse Practitioner - Family 07/24/22 Julito Banuelos MD [address] [place] [address] [phone] Assigned PCP 02/17/16 07/21/[address] [place] [place] [address] [place] [address] Weapons Designer Dietitian, Registered 04/14/19 Mary Kay Jones, [facility] Pharmacist 08/01/19 04/20/20 Susannah Blankenship, [facility] 420 [facility] [address] [place], [place] [address] Pharmacist Pharmacist 08/08/19 04/15/21 Carolyn Huynh [facility] [address] [place], [place] [address] Pharmacist Pharmacist 06/25/20 04/15/21 Vika Kevin APRN PATENT SEARCHER [address] [place] [address] [phone] Assigned PCP 07/22/20 11/16/24 Marilyn Willard MD [address] [place] [address] [address] [place], [place] 3[address] Assigned Surgical Provider 08/17/20 08/16/24 Carie Varela DO [address] [place], [place] [address] Assigned Heart and Vascular Provider 08/17/20 01/19/21 Maylin May NP [address] [place], [place] [address] Assigned Pediatric Specialist Provider 12/16/20 06/13/22 Marisa Rodrigues, RN Clinic Para Educator 01/15/21 02/26/21 Vilma Long MD [address] [place] [address] Assigned Heart and Vascular Provider 01/20/21 07/20/21 Yasmeen Pendleton, [facility] [address] [place], [place] [address] Pharmacist Pharmacist 06/04/21 01/15/22 Cole George LISW Lead Para Educator 06/13/21 10/07/21 Fletcher Up Community Health Worker 06/13/21 09/12/21 Bautista Casey MD [address] [place] [address] Assigned Heart and Vascular Provider 07/21/21 01/16/23 Jasmyn Oliver [facility] Community Health Worker 09/13/21 10/07/21 Yasmeen Pendleton [facility] [address] [place] [address] Assigned MTM Pharmacist 03/22/22 01/02/23 documented as of this encounter
--- OUTSIDE RECORDS SUMMARY | 2024-12-16 22:57 | XMS_ITS | Encounter Summary ---
Author Organization [place] Address [address] [facility] [place] [address] Care Team Providers Care Dewatering Filtering Supervisor Name Role Phone Andrew Lu MD Primary Care Provider [phone] Niko Resendiz MD Primary Care Provider Carlie Mac MD Primary Care Provide r Angella Mendieta MD Primary Care Provider Julito Banuelos MD Primary Care Provider [phone] Julito Banuelos MD Unavailable Julito Banuelos MD Unavailable Aleshia Henriquez RD Unavailable Unavailable Mary Kay Jones [facility] Unavailable Unavailable Susannah Blankenship [facility] Unavailable [phone] Carolyn Huynh [facility] Unavailable [phone] Vika Keivn APRN WOUND CARE COORDINATOR Unavailable + Marilyn Willard MD Unavailable [phone] Carie Varela DO Unavailable [phone] Maylin May NP Unavailable [phone] Marisa Rodrigues RN Unavailable Unavailable Vilma oLng MD Unavailable + [phone] Yasmeen Pendleton [facility] Unavailable [phone] Cole George Unavailable Fletcher Russell Unavailable Unavailable Bautista Casey MD Unavailable Jasmyn Oliver [facility] Unavailable [phone] Vika Kevin TEACHER ADVISOR [facility] Primary Care Prov ider Vika Kevin APRN [facility] Primary Care Prov ider Yasmeen Pendleton [facility] Unavailable Vika Kevin [facility] Primary Care Prov ider Encounter Details Date Type Department Care Team (Late st Contact Info) Description 09/22/2010 MyC Medical Advice [address] [phone] Andrew Lu MD XXX RETIRED XXX [address] [place] [address] [phone] Social History Tobacco Use Types Packs/Day Years Used Date Smoking Tobacco: Former Cigarettes 0.3 15 0 10/26/1961 - 10/26/1976 Alcohol Use Standard Drinks/Week Comments Yes 0 (1 standard drink = 0.6 oz pur e alcohol) 1 wine 2x qweek Comments No Sex and Gender Information Value Date Recorded Sex Assigned at Not on file Legal 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 CLINICAL NURSE SPECIALIST Gender Identity Not on file Sexual Orientation Not on file documented as of this encounter Miscellaneous Notes * Telephone Encounter - Andrew Lu - 10/02/2010 4:30 PM CST not clear why the results are taking so long? ICAL NURSE SPECIALIST * Telephone Encounter - Vika Downing - 09/30/2010 3:17 PM CST The sleep study has not be read by DR Suggs yet. They will fax it over one it has been read. ICAL NURSE SPECIALIST * Telephone Encounter - CoronaBo - 09/23/2010 10:28 AM CST Please get the sleep study results scanned int o epic. ICAL NURSE SPECIALIST documented in this encounter Plan of Treatment Not on file documented as of this encounter Visit Diagnoses Not on filedocumented in this encounter Additional Health Concerns Infection Onset Date Last Indicated Resolved Time Rule Out COVID-19 07/25/2020 07/25/2020 07/26/2020 3:02 PM CDT Rule Out COVID-19 12/04/2020 12/04/2020 12/05/2020 6:04 PM CLINICAL NURSE SPECIALIST documented as of this encounter Care Teams Dewatering Filtering Supervisor Relationship Specialty Start Date End Date Andrew Lu MD XXX RETIRED XXX [address] [place] [phone] PCP - General 12/10/01 01/10/14 Niko Resendiz MD [address] [address] PCP - General Internal Medicine 01/11/14 01/29/14 Carlie Mac MD [address] [place] [address] PCP - General Pediatrics 01/30/14 07/17/15 Angella Mendieta MD [address] [place] [address] PCP - General Family Practice 07/18/15 09/11/15 Julito Banuelos MD [address] [place] [address] PCP - General Family Practice 09/12/15 09/23/21 Julito Banuelos MD [address] [place] [address] PCP - Assigned PCP 02/17/16 12/28/18 Vika Kevin APRN WOUND CARE COORDINATOR [address] [place] [address] PCP - General Nurse Practitioner - Family 09/24/21 03/05/22 Vika Kevin APRN WOUND CARE COORDINATOR [address] [place] [address] PCP - General Nurse Practitioner - Family 03/18/22 06/18/22 Vika Kevin APRN WOUND CARE COORDINATOR [address] [place] [address] PCP - General Nurse Practitioner - Family 07/24/22 Julito Banuelos MD [address] [place] [address] Assigned PCP 02/17/16 07/21/[address] [place] [address] Traffic Assistant Dietitian, Registered 04/14/19 Mary Kay Jones [facility] Pharmacist 08/01/19 04/20/20 Susannah Blankenship [facility] [address] [place] [address] [address] [place] [address] Pharmacist Pharmacist 08/08/19 04/15/21 Carolyn Huynh [facility] [address] [place] [address] Pharmacist Pharmacist 06/25/20 04/15/21 Vika Kevin APRN WOUND CARE COORDINATOR [address] [place], [place] [address] Assigned PCP 07/22/20 11/16/24 Marilyn Willard MD [address] [facility] [address] [place], [place] [address] Assigned Surgical Provider 08/17/20 08/16/24 Carie Varela DO [address] [place] [address] Assigned Heart and Vascular Provider 08/17/20 01/19/21 Maylin May NP [address] [place], [place] [address] Assigned Pediatric Specialist Provider 12/16/20 06/13/22 Marisa Rodrigues RN Clinic Soapstoner 01/15/21 02/26/21 Vilma Long MD [address] [place] [address] Assigned Heart and Vascular Provider 01/20/21 07/20/21 Yasmeen Pendleton [facility] [address] [place] [address] Pharmacist Pharmacist 06/04/21 01/15/22 Cole George LISW Lead Soapstoner 06/13/21 10/07/21 Fletcher Up Community Health Worker 06/13/21 09/12/21 Bautista Casey MD [address] [place] [address] Assigned Heart and Vascular Provider 07/21/21 01/16/23 Jasmyn Oliver CHW Community Health Worker 09/13/21 10/07/21 Yasmeen Pendleton [facility] [address] [place], [place] [address] Assigned MTM Pharmacist 03/22/22 01/02/23 documented as of this encounter
--- OUTSIDE RECORDS SUMMARY | 2024-12-16 22:57 | XMS_ITS | Encounter Summary ---
Author Organization [place] Address [address] [facility] [place] [address] Care Team Providers Care Field Auditor Name Role Phone Julito Banuelos MD Primary Care Provider [phone] Unavailable Unavailable Susannah Blankenship [facility] Unavailable [phone] Carolyn Huynh [facility] Unavailable [phone] Vika Kevin APRN [facility] Unavailable + Marilyn Willard MD Unavailable [phone] Maylin May NP Unavailable [phone] Vilma Long MD Unavailable + [phone] Yasmeen Pendleton [facility] Unavailable [phone] Cole George Unavailable Fletcher Russell Unavailable Unavailable Bautista Casey MD Unavailable [phone] Jasmyn Oliver Unavailable [phone] Vika Kevin APRN [facility] Primary Care Prov ider Vika Kevin APRN [facility] Primary Care Prov ider Yasmeen Pendleton [facility] Unavailable [phone] Vika Kevin APRN, CNP Primary Care Prov ider Reason for Visit * Reason Onset Date Comments Forms 04/04/2021 catheter orders - [facility] Encounter Details Date Type Department Care Team (Late st Contact Info) Description 04/04/[address] [phone] [place] [address] [place] [address] Forms (catheter orders - [facility] [...] on file Legal 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 SALESFORCE DEVELOPER Gender Identity Not on file Sexual Orientation [...] CHUN Guadarrama * [facility]04[facility]21 2:14 PM CDT Reason for [...] clinic location was the form placed at?: [place] Where the form was placed: Dr. Banuelos Box/Folder What number is listed as a contact on the form?: [phone] Call taken on 04/04/2021 at 2:14 PM by Hunter Ponce documented in this encounter Plan of Treatment Not on file documented as of this encounter Visit Diagnoses Not on filedocumented in this encounter Additional Health Concerns Assessment Noted Time PHQ-9 Depression Total Score: 10 020 9:30 AM SALESFORCE DEVELOPER documented as of this encounter Care Teams Field Auditor Relationship Specialty Start Date End Date Julito Banuelos MD [address] [place] [address] PCP - General Family Practice 09/12/15 09/23/21 Vika Kevin APRN MEDICAL SERVICES MANAGER [address] [place] [address] PCP - General Nurse Practitioner - Family 09/24/21 03/05/22 Vika Kevin APRN MEDICAL SERVICES MANAGER [address] [place] [address] PCP - General Nurse Practitioner - Family 03/18/22 06/18/22 Vika Kevin APRN MEDICAL SERVICES MANAGER [address] [place] [address] PCP - General Nurse Practitioner - Family 07/24/[address] [place] [address] [place] [address] Refrigerated National Truck Driver Dietitian, Registered 04/14/19 Susannah Blankenship, [facility] [address] [facility] [address] [place] [address] Pharmacist Pharmacist 08/08/19 04/15/21 Carolyn Huynh [facility] [address] [place] [address] Pharmacist Pharmacist 06/25/20 04/15/21 Vika Kevin APRN MEDICAL SERVICES MANAGER [address] [place] [address] 271062 Assigned PCP 07/22/20 11/16/24 Marilyn Willard MD 420 [facility] [address] [place] [address] Assigned Surgical Provider 08/17/20 08/16/24 Maylin May NP [address] [place] [address] Assigned Pediatric Specialist Provider 12/16/20 06/13/22 Vilma Long MD [address] [place] [address] Assigned Heart and Vascular Provider 01/20/21 07/20/21 Yasmeen Pendleton [facility] [address] [place] [address] Pharmacist Pharmacist 06/04/21 01/15/22 Cole George LISW Lead Scientific Process Operator 06/13/21 10/07/21 Fletcher Up Community Health Worker 06/13/21 09/12/21 Bautista Casey MD [address] [place] [address] Assigned Heart and Vascular Provider 07/21/21 01/16/23 Jasmyn Oliver Bryanna Community Health Worker 09/13/21 10/07/21 Yasmeen Pendleton [facility] [address] [place], [place] [address] Assigned MTM Pharmacist 03/22/22 01/02/23 documented as of this encounter
--- OUTSIDE RECORDS SUMMARY | 2024-12-16 22:57 | XMS_ITS | Encounter Summary ---
Author Organization [place] Address [address] [facility] [place] [address] Care Team Providers Care Yard Rigger Name Role Phone Julito Banuelos MD Primary Care Provider [phone] Unavailable Unavailable Susannah Blankenship [facility] Unavailable [phone] Carolyn Huynh [facility] Unavailable [phone] Vika Kevin APRN [facility] Unavailable + Marilyn Willard MD Unavailable [phone] Maylin May NP Unavailable [phone] Vilma Long MD Unavailable + [phone] Yasmeen Pendleton [facility] Unavailable [phone] Cole George Unavailable Fletcher Russell Unavailable Unavailable Bautista Casey MD Unavailable [phone] Jasmyn Oliver Unavailable [phone] Vika Kevin APRN [facility] Primary Care Prov ider Vika Kevin APRN [facility] Primary Care Prov ider Yasmeen Pendleton [facility] Unavailable Vika Kevin APRN [facility] Primary Care Prov ider Reason for Visit * Reason Onset Date Comments Forms 04/02/2021 [facility] Encounter Details Date Type Department Care Team ([facility] st Contact Info) Description 04/02/[address] [phone] Julito Banuelos MD [address] [place] [address] Forms ([facility]) Social History Tobacco Use Types Packs/Day Years [...] on file Legal 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 SMOKING PIPE LINER Gender Identity Not on file Sexual Orientation [...] medical Who is the form from?: [facility] (if other please explain) Where did the form come from: form was faxed in What clinic location was the form placed at?: [place] Where the form was placed: Julito Baneulos MD Box/Folder What number is listed as a contact on the form?: Fax to [phone] Call taken on 04/02/2021 at 8:42 AM by Leann Massye documented in this encounter Plan of Treatment Not on file documented as of this encounter Visit Diagnoses Not on filedocumented in this encounter Additional Health Concerns Assessment Noted Time PHQ-9 Depression Total Score: 10 020 9:30 AM SMOKING PIPE LINER documented as of this encounter Care Teams Yard Rigger Relationship Specialty Start Date End Date Julito Banuelos MD [address] [place] [address] PCP - General Family Practice 09/12/15 09/23/21 Vika Kevin APRN SAMPLE DRILLER [address] [place] [address] PCP - General Nurse Practitioner - Family 09/24/21 03/05/22 Vika Kevin APRN SAMPLE DRILLER [address] [place] [address] PCP - General Nurse Practitioner - Family 03/18/22 06/18/22 Vika Kevin APRN SAMPLE DRILLER [address] [place] [address] PCP - General Nurse Practitioner - Family 07/24/[address] [place] [address] Continuous Conveyor Screen Drier Dietitian, Registered 04/14/19 Susannah Blankenship, [facility] 420 [facility] [address] [place], [place] [address] Pharmacist Pharmacist 08/08/19 04/15/21 Carolyn Huynh [facility] [address] [place] [address] Pharmacist Pharmacist 06/25/20 04/15/21 Vika Kevin APRN SAMPLE DRILLER [address] [place], [place] [address] Assigned PCP 07/22/20 11/16/24 Marilyn Willard MD 420 [facility] 394 [place], [place] [address] Assigned Surgical Provider 08/17/20 08/16/24 Maylin May, JENNY [address] [place] [address] Assigned Pediatric Specialist Provider 12/16/20 06/13/22 Vilma Long MD [address] [place] [address] Assigned Heart and Vascular Provider 01/20/21 07/20/21 Yasmeen Pendleton [facility] [address] [place], [place] [address] Pharmacist Pharmacist 06/04/21 01/15/22 Cole George LISW Lead Wet Room Supervisor 06/13/21 10/07/21 Fletcher Up Community Health Worker 06/13/21 09/12/21 Bautista Casey MD [address] [place] [address] Assigned Heart and Vascular Provider 07/21/21 01/16/23 Jasmyn Oliver CHW Community Health Worker 09/13/21 10/07/21 Yasmeen Pendleton, [facility] [address] [place] [address] Assigned MTM Pharmacist 03/22/22 01/02/23 documented as of this encounter
--- OUTSIDE RECORDS SUMMARY | 2024-12-16 22:57 | XMS_ITS | Encounter Summary ---
Author Organization [place] Address [address] [facility] [place] [address] Care Team Providers Care Wire Setter Name Role Phone Andrew Lu MD Primary Care Provider [phone] Niko Resendiz MD Primary Care Provider Carlie Mac MD Primary Care Provide r Angella Mendieta MD Primary Care Provider Julito Banuelos MD Primary Care Provider [phone] Julito Banuelos MD Unavailable Julito Banuelos MD Unavailable Aleshia [address]quez RD Unavailable Unavailable Mary Kay Jones [facility] Unavailable Unavailable Susannah Blankenship [facility] Unavailable [phone] Carolyn Huynh [facility] Unavailable [phone] Vika Kevin APRN VICE PRESIDENT MEDIA RELATIONS Unavailable + Marilyn Willard MD Unavailable [phone] Carie Varela DO Unavailable [phone] Maylin May NP Unavailable [phone] Marisa Rodrigues RN Unavailable Unavailable Vilma Long MD Unavailable + [phone] Yasmeen Pendleton [facility] Unavailable [phone] Cole George Unavailable Fletcher Russell Unavailable Unavailable Bautista Casey MD Unavailable [phone] DemetriusJasmyn wright [facility] Unavailable [phone] Vika Kevin APRN [facility] Primary Care Prov ider Vika Kevin APRN [facility] Primary Care Prov ider Yasmeen Pendleton [facility] Unavailable [facility] Primary Care Prov ider Reason for Visit * Reason Onset Date Comments Refill Request 01/06/2011 Encounter Details Date Type Department Care Team (Late st Contact Info) Description 01/06/[address] [phone] Andrew Lu MD XXX RETIRED XXX [address] [place] [phone] Refill Request Social History Tobacco Use Types Packs/Day Years Used Date Smoking Tobacco: Former Cigarettes 0.3 15 0 10/26/1961 - 10/26/1976 Alcohol Use Standard Drinks/Week Comments Yes 0 (1 standard drink = 0.6 oz pur e alcohol) 1 wine 2x qweek Comments No Sex and Gender Information Value Date Recorded Sex Assigned at Not on file Legal 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 CATH LAB TECHNOLOGIST Gender Identity Not on file Sexual [...] Out COVID-19 12/04/2020 12/04/2020 12/05/2020 6:04 PM CATH LAB TECHNOLOGIST documented as of this encounter Care Teams Wire Setter Relationship Specialty Start Date End Date Andrew Lu MD XXX RETIRED XXX [address] [place] [phone] PCP - General 12/10/01 01/10/14 Niko Resendiz MD [address] [place] [address] PCP - General Internal Medicine 01/11/14 01/29/14 Carlie Mac MD [address] [place] [address] PCP - General Pediatrics 01/30/14 07/17/15 Angella Mendieta MD [address] [place] [address] PCP - General Family Practice 07/18/15 09/11/15 Julito Banuelos MD [address] [place] [address] PCP - General Family Practice 09/12/15 09/23/21 Julito Banuelos MD [address] [place] [address] PCP - Assigned PCP 02/17/16 12/28/18 Vika Kevin APRN VICE PRESIDENT MEDIA RELATIONS [address] [place] [address] PCP - General Nurse Practitioner - Family 09/24/21 03/05/22 Vika Kevin APRN VICE PRESIDENT MEDIA RELATIONS [address] [place] [address] PCP - General Nurse Practitioner - Family 03/18/22 06/18/22 Vika Kevin APRN VICE PRESIDENT MEDIA RELATIONS [address] [place] [address] PCP - General Nurse Practitioner - Family 07/24/22 Julito Banuelos MD [address] [place] [address] Assigned PCP 02/17/16 07/21/[address] [place] [address] Credit Verification Clerk Dietitian, Registered 04/14/19 Mary Kay Jones, [facility] Pharmacist 08/01/19 04/20/20 Susannah Blankenship, [facility] 420 [facility] [address] [place] [address] Pharmacist Pharmacist 08/08/19 04/15/21 Carolyn Huynh, [facility] [address] [place], [place] [address] Pharmacist Pharmacist 06/25/20 04/15/21 Vika Kevin, JAIME VICE PRESIDENT MEDIA RELATIONS [address] [place] [address] Assigned PCP 07/22/20 11/16/24 Marilyn Willard MD 420 [facility] [address] [place], [place] [address] Assigned Surgical Provider 08/17/20 08/16/24 Carie Varela DO [address] [place] [address] Assigned Heart and Vascular Provider 08/17/20 01/19/21 Maylin May NP [address] [place] [address] Assigned Pediatric Specialist Provider 12/16/20 06/13/22 Marisa Rodrigues, RN Clinic Corrugator Supervisor 01/15/21 02/26/21 Vilma Long MD [address] [place] [address] Assigned Heart and Vascular Provider 01/20/21 07/20/21 [facility] [address] [place] [address] Pharmacist Pharmacist 06/04/21 01/15/22 Cole George LISW Lead Corrugator Supervisor 06/13/21 10/07/21 Fletcher Up Community Health Worker 06/13/21 09/12/21 Bautista Casey MD [address] [place] [address] Assigned Heart and Vascular Provider 07/21/21 01/16/23 Jasmyn Oliver CHW Community Health Worker 09/13/21 10/07/21 [facility] [address] [place] [address] Assigned MTM Pharmacist 03/22/22 01/02/23 documented as of this encounter
--- OUTSIDE RECORDS SUMMARY | 2024-12-16 22:57 | XMS_ITS | Encounter Summary ---
Author Organization [place] Address [address] [facility] [address] Care Team Providers Care Associate Manager Affiliate Marketing Name Role Phone Julito Banuelos MD Primary Care Provider [phone] Julito Banuelos MD Unavailable Julito Banuelos MD Unavailable Aleshia Henriquez RD Unavailable Unavailable Mary Kay Jones [facility] Unavailable Unavailable Susannah Blankenship [facility] Unavailable Carolyn Huynh [facility] Unavailable [phone] Vika Kevin APRN WASTE TRANSPORTATION TECHNICIAN Unavailable + Marilyn Willard MD Unavailable [phone] Carie Varela DO Unavailable +[phone] Maylin May NP Unavailable [phone] Marisa Rodrigues RN Unavailable Unavailable Vilma Long MD Unavailable Yasmeen Pendleton [facility] Unavailable +[phone] Cole George Unavailable Fletcher Russell Unavailable Unavailable Bautista Casey MD Unavailable Jasmyn Oliver Unavailable [phone] Vika Kevin APRN [facility] Primary Care Prov ider Kevin Vika Delgado JAIME [facility] Primary Care Prov ider Yasmeen Pendleton [facility] Unavailable + [phone] Herberth Vika Delgado JAIME [facility] Primary Care Prov ider Reason for Visit * Reason Onset Date Comments MyChart Communication 11/01/2018 Encounter Details Date Type Department Care Team (Late st Contact Info) Description 11/01/2018 MyC Medical Advice [address] [address] [place] [address] [place] [address] MyChart Communication Social History Tobacco Use [...] on file Legal 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 HEDIS REGISTERED NURSE RN Gender Identity Not on file Sexual Orientation Not on file Occupation Industry Job Start Date Job End Date Not on file Not on file Not on file Not on file documented as of this encounter Miscellaneous Notes * Telephone Encounter - Araseli Briceño RN - 11/16/2018 8:56 AM CST Urine is in process. YUE Mcdowell, RN, PHN [facility] Triage ) [phone] S REGISTERED NURSE RN * Telephone Encounter - Leann Massey - 11/16/2018 8:28 AM CST The patient called and said her Ty is bringing in her urine. She wanted it noted that she is on an antibiotic right now. Leann Massey Patient Cracking Unit Operator S REGISTERED NURSE RN * Telephone Encounter - Araseli Briceño RN - 11/02/2018 2:37 PM CST Mychart note sent to patient. YUE Mcdowell, RN, PHN [facility]) [phone] S REGISTERED NURSE RN * Telephone Encounter - Julito Banuelos MD - 11/02/2018 2:17 PM CST Please review with patient Can certainly try prevagen, have not seen neurologist recommend to date? S REGISTERED NURSE RN * Telephone Encounter - Araseli Briceño RN - 11/02/2018 7:55 AM CST Forwarded to TS. Please review patient's GageInhart message and advise. Araseli Briceño RN, BS, PHN S REGISTERED NURSE RN documented in this encounter Plan of Treatment Not on file documented as of this encounter Visit Diagnoses Not on filedocumented in this encounter Additional Health Concerns Infection Onset Date Last Indicated Resolved Time Rule Out COVID-19 07/25/2020 07/25/2020 07/26/2020 3:02 PM CDT Rule Out COVID-19 12/04/2020 12/04/2020 12/05/2020 6:04 PM HEDIS REGISTERED NURSE RN Assessment Noted Time PHQ-9 Depression Total Score: 4 04/27/20 18 7:12 AM CDT documented as of this encounter Care Teams Associate Manager Affiliate Marketing Relationship Specialty Start [place] [address] [place] [address] PCP - General Family Practice 09/12/15 09/23/21 Julito Banuelos MD [address] [place] [address] PCP - Assigned PCP 02/17/16 12/28/18 Vika Kevin APRN WASTE TRANSPORTATION TECHNICIAN [address] [place] [address] PCP - General Nurse Practitioner - Family 09/24/21 03/05/22 Vika Kevin APRN WASTE TRANSPORTATION TECHNICIAN [address] [place] [address] PCP - General Nurse Practitioner - Family 03/18/22 06/18/22 Vika Kevin APRN WASTE TRANSPORTATION TECHNICIAN [address] [place] [address] 655772 PCP - General Nurse Practitioner - Family 07/24/22 Julito Banuelos MD [address] [place] [address] 941192 Assigned PCP 02/17/16 07/21/[address] [place] [address] 209[address] Auth Specialist Dietitian, Registered 04/14/19 Mary Kay Jones [facility] Pharmacist 08/01/19 04/20/20 Susannah Blankenship [facility] [address] [place] [address] 812 [place] [address] Pharmacist Pharmacist 08/08/19 04/15/21 Carolyn Huynh [facility] [address] [place], [place] [address] Pharmacist Pharmacist 06/25/20 04/15/21 KevinVika, CAD SPECIALIST WASTE TRANSPORTATION TECHNICIAN [address] [place], [place] [address] Assigned PCP 07/22/20 11/16/24 Marilyn Willard MD [address] [facility] [address] [place], [place] [address] Assigned Surgical Provider 08/17/20 08/16/24 Carie Varela DO [address] [place] [address] Assigned Heart and Vascular Provider 08/17/20 01/19/21 Maylin May NP [address] [place], [place] [id number] Assigned Pediatric Specialist Provider 12/16/20 06/13/22 Marisa Rodrigues, RN Clinic Education Courses Sales Representative 01/15/21 02/26/21 Vilma Long MD [address] [place] [address] Assigned Heart and Vascular Provider 01/20/21 07/20/21 Yasmeen Pendleton [facility] [address] [place] [address] Pharmacist Pharmacist 06/04/21 01/15/22 Cole George LISW Lead Education Courses Sales Representative 06/13/21 10/07/21 Fletcher Up Community Health Worker 06/13/21 09/12/21 Bautista Casey MD [address] [place] [address] Assigned Heart and Vascular Provider 07/21/21 01/16/23 Jasmyn Oliver CHW Community Health Worker 09/13/21 10/07/21 Yasmeen Pendleton [facility] [address] [place] [address] Assigned MTM Pharmacist 03/22/22 01/02/23 documented as of this encounter
--- OUTSIDE RECORDS SUMMARY | 2024-12-16 22:57 | XMS_ITS | Encounter Summary ---
Author Organization [place] Address [address] [place] [address] Care Team Providers Care Pipe Blanks Cut Off Saw Operator Name Role Phone Andrew Lu MD Primary Care Provider [phone] Niko Resendiz MD Primary Care Provider Carlie Mac MD Primary Care Provide r Angella Mendieta MD Primary Care Provider Julito Banuelos MD Primary Care Provider [phone] Julito Banuelos MD Unavailable Julito Banuelos MD Unavailable Aleshia Henriquez RD Unavailable Unavailable Mary Kay Jones [facility] Unavailable Unavailable Susannah Blankenship [facility] Unavailable [phone] Carolyn Huynh [facility] Unavailable [phone] Vika Kevin APRN PANAMA HAT BLOCKER Unavailable + Marilyn Willard MD Unavailable [phone] Carie Varela DO Unavailable [phone] Maylin May NP Unavailable [phone] Marisa Rodrigues RN Unavailable Unavailable Vilma Long MD Unavailable + [phone] Yasmeen Pendleton [facility] Unavailable + [phone] Cole George Unavailable Fletcher Russell Unavailable Unavailable Bautista Casey MD Unavailable DemetriusJasmyn wright [facility] Unavailable [phone] Vika Kevin APRN [facility] Primary Care Prov ider Vika Kevin APRN [facility] Primary Care Prov ider Yasmeen Pendleton [facility] Unavailable + [phone] Vika Kevin APRN [facility] Primary Care Prov ider Encounter Details Date Type Department Care Team (Late st Contact Info) Description 02/04/[address] [phone] Veronica [place] Social History Tobacco Use Types Packs/Day Years Used Date Smoking Tobacco: Former Cigarettes 0.3 15 0 10/26/1961 - 10/26/1976 Smokeless Tobacco: Never Alcohol Use Standard Drinks/Week Comments Yes 0 (1 standard drink = 0.6 oz pur e alcohol) 1-2 glasses of wine weekly Comments No Sex and Gender Information Value Date Recorded Sex Assigned at Not on file Legal 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 MOVIE PROJECTIONIST Gender Identity Not on file Sexual Orientation [...] Out COVID-19 12/04/2020 12/04/2020 12/05/2020 6:04 PM MOVIE PROJECTIONIST documented as of this encounter Care Teams Pipe Blanks Cut Off Saw Operator Relationship Specialty Start Date End Date Andrew Lu MD XXX RETIRED XXX [address] [place] [phone] PCP - General 12/10/01 01/10/14 Niko Resendiz MD [address] [place] [address] PCP - General Internal Medicine 01/11/14 01/29/14 Carlie Mac MD [address] [place] [address] PCP - General Pediatrics 01/30/14 07/17/15 Angella Mendieta MD [address] [place] [address] PCP - General Family Practice 07/18/15 09/11/15 Julito Banuelos MD [address] [place] [address] PCP - General Family Practice 09/12/15 09/23/21 Julito Banuelos MD [address] [place] [address] PCP - Assigned PCP 02/17/16 12/28/18 Vika Kevin APRN PANAMA HAT BLOCKER [address] [place] [address] PCP - General Nurse Practitioner - Family 09/24/21 03/05/22 Vika Kevin APRN PANAMA HAT BLOCKER [address] [place] [address] PCP - General Nurse Practitioner - Family 03/18/22 06/18/22 Vika Kevin APRN PANAMA HAT BLOCKER [address] [place] [address] 584272 PCP - General Nurse Practitioner - Family 07/24/22 Julito Banuelos MD [address] [place] [address] 990772 Assigned PCP 02/17/16 07/21/[address] [place] [address] Health Information Technician Dietitian, Registered 04/14/19 Mary Kay Jones, [facility] Pharmacist 08/01/19 04/20/20 [facility] [address] [place] [address] 8[address] [place], [place] [address]65 Pharmacist Pharmacist 08/08/19 04/15/21 [facility] [address] [place], [place] [address] Pharmacist Pharmacist 06/25/20 04/15/21 Vika Kevin APRN PANAMA HAT BLOCKER [address] [place] [address] 448692 Assigned PCP 07/22/20 11/16/24 Marilyn Willard MD [address] [place] [address] [address] [place] [address] Assigned Surgical Provider 08/17/20 08/16/24 Carie Varela DO [address] [place], [place] [address] Assigned Heart and Vascular Provider 08/17/20 01/19/21 Maylin May NP [address] [place], [place] [address] Assigned Pediatric Specialist Provider 12/16/20 06/13/22 Marisa Rodrigues, RN Clinic Aquaculture Farm Manager 01/15/21 02/26/21 Vilma Long MD [address] [place] [address] Assigned Heart and Vascular Provider 01/20/21 07/20/21 [facility] [address] [place] [address] Pharmacist Pharmacist 06/04/21 01/15/22 Cole George LISW Lead Aquaculture Farm Manager 06/13/21 10/07/21 Fletcher Up Community Health Worker 06/13/21 09/12/21 Bautista Casey MD [address] [place] [address] Assigned Heart and Vascular Provider 07/21/21 01/16/23 Jasmyn Oliver CHW Community Health Worker 09/13/21 10/07/21 [facility] [address] [place] [address]305 Assigned MTM Pharmacist 03/22/22 01/02/23 documented as of this encounter
--- OUTSIDE RECORDS SUMMARY | 2024-12-16 22:57 | XMS_ITS | Encounter Summary ---
Author Organization [place] Address [address] [facility] [place] [address] Care Team Providers Care Pantry Chef Name Role Phone Andrew Lu MD Primary Care Provider [phone] Niko Resendiz MD Primary Care Provider Carlie Mac MD Primary Care Provide r Angella Mendieta MD Primary Care Provider Julito Banuelos MD Primary Care Provider [phone] Julito Banuelos MD Unavailable Julito Banuelos MD Unavailable Aleshia Henriquez RD Unavailable Unavailable Mary Kay Jones [facility] Unavailable Unavailable Susannah Blankenship [facility] Unavailable [phone] Carolyn Huynh [facility] Unavailable [phone] Vika Kevin APRN THERMITE BOMB LOADER Unavailable + Marilyn Willard MD Unavailable [phone] Carie Varela DO Unavailable [phone] Maylin May NP Unavailable [phone] Marisa Rodrigues RN Unavailable Unavailable Vilma Long MD Unavailable + [phone] Yasmeen Pendleton [facility] Unavailable [phone] Cole George Unavailable Fletcher Russell Unavailable Unavailable Bautista Casey MD Unavailable AnnyJasmyn tracey [facility] Unavailable [phone] Vika Kevin APRN [facility] Primary Care Prov ider Vika Kevin APRN [facility] Primary Care Prov ider Yasmeen Pednleton [facility] Unavailable [phone] [facility] Primary Care Prov ider Encounter Details Date Type Department Care Team (Late st Contact Info) Description 06/08/2007 MyC Medical Advice [address] [phone] Andrew Lu MD XXX RETIRED XXX [address] [place] [phone] Social History Tobacco Use Types Packs/Day Years Used Date Smoking Tobacco: Former Cigarettes 0.3 15 0 10/26/1961 - 10/26/1976 Alcohol Use Standard Drinks/Week Comments Yes 0 (1 standard drink = 0.6 oz pur e alcohol) 1 wine 2x qweek Comments No Sex and Gender Information Value Date Recorded Sex Assigned at Not on file Legal 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 FIELD AGENT Gender Identity Not on file Sexual Orientation Not on file documented as of this encounter Plan of Treatment Not on file documented as of this encounter Visit Diagnoses Not on filedocumented in this encounter Additional Health Concerns Infection Onset Date Last Indicated Resolved Time Rule Out COVID-19 07/25/2020 07/25/2020 07/26/2020 3:02 PM CDT Rule Out COVID-19 12/04/2020 12/04/2020 12/05/2020 6:04 PM FIELD AGENT documented as of this encounter Care Teams Pantry Chef Relationship Specialty Start Date End Date Andrew Lu MD XXX RETIRED XXX [address] [place] [phone] PCP - General 12/10/01 01/10/14 Niko Resendiz MD [address] [place] [address] PCP - General Internal Medicine 01/11/14 01/29/14 Carlie Mac MD [address] [place], [place] [phone] PCP - General Pediatrics 01/30/14 07/17/15 Angella Mendieta MD [address] [place] [address] [phone] PCP - General Family Practice 07/18/15 09/11/15 Julito Banuelos MD [address] [place] [address] 975172 PCP - General Family Practice 09/12/15 09/23/21 Julito Banuelos MD [address] [place] [address] 23909 PCP - Assigned PCP 02/17/16 12/28/18 Vika Kevin APRN THERMITE BOMB LOADER [address] [place] [address] 260652 PCP - General Nurse Practitioner - Family 09/24/21 03/05/22 Vika Kevin APRN THERMITE BOMB LOADER [address] [place] [address] [phone] PCP - General Nurse Practitioner - Family 03/18/22 06/18/22 Vika Kevin APRN THERMITE BOMB LOADER [address] [place] [address] [phone] PCP - General Nurse Practitioner - Family 07/24/22 Julito Banuelos MD [address] [place] [address] [phone] Assigned PCP 02/17/16 07/21/[address] [place] [address] Lime Boiler Dietitian, Registered 04/14/19 Mary Kay Jones, [facility] Pharmacist 08/01/19 04/20/20 [facility] [address] [place] [address] 812 [place], [place] 9[address] Pharmacist Pharmacist 08/08/19 04/15/21 [facility] [address] [place] [address] Pharmacist Pharmacist 06/25/20 04/15/21 Vika Kevin APRN THERMITE BOMB LOADER [address] [place] [address] 900902 Assigned PCP 07/22/20 11/16/24 Marilyn Willard MD [address] [place] [address] [address] [place], [place] [address] Assigned Surgical Provider 08/17/20 08/16/24 Carie Varela DO [address] [place] [address] Assigned Heart and Vascular Provider 08/17/20 01/19/21 Maylin May NP [address] [place] [address] Assigned Pediatric Specialist Provider 12/16/20 06/13/22 Marisa Rodrigues, RN Clinic Secretary Of Police 01/15/21 02/26/21 Vilma Long MD [address] [place] [address] Assigned Heart and Vascular Provider 01/20/21 07/20/21 Yasmeen Pendleton [facility] [address] [place] [address] Pharmacist Pharmacist 06/04/21 01/15/22 Cole George LISW Lead Secretary Of Police 06/13/21 10/07/21 Fletcher Up Community Health Worker 06/13/21 09/12/21 Bautista Casey MD [address] [place] [address] Assigned Heart and Vascular Provider 07/21/21 01/16/23 Jasmyn Oliver CHW Community Health Worker 09/13/21 10/07/21 Yasmeen Pendleton [facility] [address] [place] [address] Assigned MTM Pharmacist 03/22/22 01/02/23 documented as of this encounter
--- OUTSIDE RECORDS SUMMARY | 2024-12-16 22:57 | XMS_ITS | Encounter Summary ---
Author Organization [place] Address [address] [facility] [address] Care Team Providers Care Estimator Name Role Phone Angella Mendieta MD Primary Care Provider Julito Banuelos MD Primary Care Provider [phone] Julito Banuelos MD Unavailable Julito Banuelos MD Unavailable Aleshia Henriquez RD Unavailable Unavailable Mary Kay Jones [facility] Unavailable Unavailable Susannah Blankenship [facility] Unavailable [phone] Carolyn Huynh [facility] Unavailable [phone] Vika Kevin APRN SALESPERSON [employer]IAL [employer]OTS Unavailable + Marilyn Willard MD Unavailable [phone] Carie Varela DO Unavailable [phone] Maylin May NP Unavailable [phone] Marisa Rodrigues RN Unavailable Unavailable Vilma Long MD Unavailable + [phone] Yasmeen Pendleton [facility] Unavailable [phone] Cole George Unavailable Fletcher Russell Unavailable Unavailable Bautista Casey MD Unavailable [phone] Jasmyn Oliver CHW Unavailable [phone] Vika Kevin APRN [facility] Primary Care Prov ider Vika Kevin APRN [facility] Primary Care Prov ider + Yasmeen Pendleton [facility] Unavailable Vika Kevin APRN [facility] Primary Care Prov ider + Encounter Details Date Type Department Care Team (Late st Contact Info) Description 08/16/2015 MyC Medical Advice [facility] [place] [address] [facility] [address] [place] [phone] Jaimee Donald MD HEART [facility] [address] [facility] [address] [place], [place] [id number] Social History Tobacco Use Types Packs/Day Years Used Date Smoking Tobacco: Former Cigarettes 0.3 15 0 10/26/1961 - 10/26/1976 Smokeless Tobacco: Never Alcohol Use Standard Drinks/Week Comments Yes 0 (1 standard drink = 0.6 oz pur e alcohol) 1-2 glasses of wine weekly Comments No Sex and Gender Information Value Date Recorded Sex Assigned at Not on file Legal 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 SIMONIZER Gender Identity Not on file Sexual Orientation [...] Out COVID-19 12/04/2020 12/04/2020 12/05/2020 6:04 PM SIMONIZER documented as of this encounter Care Teams Estimator Relationship Specialty [place] [address] [place] [address] [phone] PCP - General Family Practice 07/18/15 09/11/15 Julito Banuelos MD [address] [place] [address] PCP - General Family Practice 09/12/15 09/23/21 Julito Banuelos MD [address] [place] [address] PCP - Assigned PCP 02/17/16 12/28/18 Vika Kevin APRN SALESPERSON [employer] [address] [place] [address] PCP - General Nurse Practitioner - Family 09/24/21 03/05/22 Vika Kevin APRN SALESPERSON [employer] [address] [place] [address] PCP - General Nurse Practitioner - Family 03/18/22 06/18/22 Vika Kevin APRN SALESPERSON [employer] [address] [place] [address] PCP - General Nurse Practitioner - Family 07/24/22 Julito Banuelos MD [address] [place] [address] Assigned PCP 02/17/16 07/21/[address] [place] [address] Shift Mechanic Dietitian, Registered 04/14/19 Mary Kay Jones, [facility] Pharmacist 08/01/19 04/20/20 Susannah Blankenship, [facility] [address] [facility] [address] [place] [address] Pharmacist Pharmacist 08/08/19 04/15/21 Carolyn Huynh [facility] [address] [place] [address] Pharmacist Pharmacist 06/25/20 04/15/21 Vika Kevin APRN SALESPERSON [employer] [address] [place] [address] [phone] Assigned PCP 07/22/20 11/16/24 Marilyn Willard MD [address] [facility] [address] [place], [place] 6[address] Assigned Surgical Provider 08/17/20 08/16/24 Carie Varela DO [address] [place] [address] Assigned Heart and Vascular Provider 08/17/20 01/19/21 Maylin May NP [address] [facility] [place] [place] [address] Assigned Pediatric Specialist Provider 12/16/20 06/13/22 Marisa Rodrigues, RN Clinic Franchise Sales Representative 01/15/21 02/26/21 Vilma Long MD [address] [place] 520735 Assigned Heart and Vascular Provider 01/20/21 07/20/21 Yasmeen Pendleton [facility] [address] [place], [place] [address]455 Pharmacist Pharmacist 06/04/21 01/15/22 Cole George LISW Lead Franchise Sales Representative 06/13/21 10/07/21 Fletcher Up Community Health Worker 06/13/21 09/12/21 Bautista Casey MD [address] [place], [place] [address] Assigned Heart and Vascular Provider 07/21/21 01/16/23 Jasmyn Oliver CHW Community Health Worker 09/13/21 10/07/21 Yasmeen Pendleton [facility] [address] [place] [address] Assigned MTM Pharmacist 03/22/22 01/02/23 documented as of this encounter
--- OUTSIDE RECORDS SUMMARY | 2024-12-16 22:57 | XMS_ITS | Encounter Summary ---
Author Organization [place] Address [address] [facility] [place] [address] Care Team Providers Care Plant Attendant Or Assistant Operator Name Role Phone Andrew Lu MD Primary Care Provider [phone] Niko Resendiz MD Primary Care Provider Carlie Mac MD Primary Care Provide r Angella Mendieta MD Primary Care Provider Julito Banuelos MD Primary Care Provider [phone] Julito Banuelos MD Unavailable Julito Banuelos MD Unavailable Aleshia Henriquez RD Unavailable Unavailable Mary Kay Jones [facility] Unavailable Unavailable Susannah Blankenship [facility] Unavailable [phone] Carolyn Huynh [facility] Unavailable [phone] Vika Kevin APRN NAIL EXPERT Unavailable + Marilyn Willard MD Unavailable [phone] Carie Varela DO Unavailable [phone] Maylin May NP Unavailable [phone] Marisa Rodrigues RN Unavailable Unavailable iVlma Long MD Unavailable + [phone] Yasmeen Pendleton [facility] Unavailable [phone] Cole George Unavailable Fletcher Russell Unavailable Unavailable Bautista Casey MD Unavailable AnnyJasmyn tracey [facility] Unavailable [phone] Vika Kevin APRN [facility] Primary Care Prov ider Vika Kevin APRN [facility] Primary Care Prov ider Yasmeen Pendleton [facility] Unavailable [phone] [facility] Primary Care Prov ider Encounter Details Date Type Department Care Team (Late st Contact Info) Description 05/25/2007 MyC Medical Advice [address] [phone] Andrew Lu MD XXX RETIRED XXX [address] [place] [phone] Social History Tobacco Use Types Packs/Day Years Used Date Smoking Tobacco: Former Cigarettes 0.3 15 0 10/26/1961 - 10/26/1976 Alcohol Use Standard Drinks/Week Comments Yes 0 (1 standard drink = 0.6 oz pur e alcohol) 1 wine 2x qweek Comments No Sex and Gender Information Value Date Recorded Sex Assigned at Not on file Legal 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 PATTERN MARKER Gender Identity Not on file Sexual Orientation Not on file documented as of this encounter Plan of Treatment Not on file documented as of this encounter Visit Diagnoses Not on filedocumented in this encounter Additional Health Concerns Infection Onset Date Last Indicated Resolved Time Rule Out COVID-19 07/25/2020 07/25/2020 07/26/2020 3:02 PM CDT Rule Out COVID-19 12/04/2020 12/04/2020 12/05/2020 6:04 PM PATTERN MARKER documented as of this encounter Care Teams Plant Attendant Or Assistant Operator Relationship Specialty Start Date End Date Andrew Lu MD XXX RETIRED XXX [address] [place] [phone] PCP - General 12/10/01 01/10/14 Niko Resendiz MD [address] [place] [address]93 PCP - General Internal Medicine 01/11/14 01/29/14 Carlie Mac MD [address] [place], [place] [phone] PCP - General Pediatrics 01/30/14 07/17/15 Angella Mendieta MD [address] [place] [address] [id number] PCP - General Family Practice 07/18/15 09/11/15 Julito Banuelos MD [address] [place] [address] [id number] PCP - General Family Practice 09/12/15 09/23/21 Julito Banuelos MD [address] [place] [address]67 PCP - Assigned PCP 02/17/16 12/28/18 Vika Kevin APRN NAIL EXPERT [address] [place] [address] 240862 PCP - General Nurse Practitioner - Family 09/24/21 03/05/22 Vika Kevin APRN NAIL EXPERT [address] [place] [address] 139682 PCP - General Nurse Practitioner - Family 03/18/22 06/18/22 Vika Kevin APRN NAIL EXPERT [address] [place] [address] 595122 PCP - General Nurse Practitioner - Family 07/24/22 Julito Banuelos MD [address] [place] [address] 370662 Assigned PCP 02/17/16 07/21/[address] [place] [address] Group Exercise Instructor Dietitian, Registered 04/14/19 Mary Kay Jones, [facility] Pharmacist 08/01/19 04/20/20 [facility] [address] [place] [address] [address] [place], [place] 9[address]645 Pharmacist Pharmacist 08/08/19 04/15/21 [facility] [address] [place] [address] Pharmacist Pharmacist 06/25/20 04/15/21 Vika Kevin APRN NAIL EXPERT [address] [place] [address] 460202 Assigned PCP 07/22/20 11/16/24 Marilyn Willard MD [address] [place] [address] [address] [place], [place] 856905 Assigned Surgical Provider 08/17/20 08/16/24 Carie Varela DO [address] [place] [address] Assigned Heart and Vascular Provider 08/17/20 01/19/21 Maylin May NP [address] [place] [address] Assigned Pediatric Specialist Provider 12/16/20 06/13/22 Marisa Rodrigues, RN Clinic Financial Accountant 01/15/21 02/26/21 Vilma Long MD [address] [place] [address] Assigned Heart and Vascular Provider 01/20/21 07/20/21 Yasmeen Pendleton [facility] [address] [place] [address] Pharmacist Pharmacist 06/04/21 01/15/22 Cole George LISW Lead Financial Accountant 06/13/21 10/07/21 Fletcher Up Community Health Worker 06/13/21 09/12/21 Bautista Casey MD [address] [place] [address] Assigned Heart and Vascular Provider 07/21/21 01/16/23 Jasmyn Oliver CHW Community Health Worker 09/13/21 10/07/21 Yasmeen Pendleton [facility] [address] [place] [address] Assigned MTM Pharmacist 03/22/22 01/02/23 documented as of this encounter
--- OUTSIDE RECORDS SUMMARY | 2024-12-16 22:57 | XMS_ITS | Encounter Summary ---
Author Organization [place] Address [address] [facility] [place] [address] Care Team Providers Care Community Service Officer Name Role Phone Julito Banuelos MD Primary Care Provider [phone] Julito Banuelos MD Unavailable Aleshia Henriquez RD Unavailable Unavailable Susannah Blankenship [facility] Unavailable [phone] Carolyn Huynh [facility] Unavailable [phone] Vika Kevin APRN OUTSOLE CEMENTER MACHINE Unavailable + Marilyn Willard MD Unavailable [phone] Carie Varela DO Unavailable [phone] Maylin May NP Unavailable [phone] Marisa Hernandez RN Unavailable Unavailable Vilma Long MD Unavailable + [phone] Yasmeen Pendleton [facility] Unavailable Cole George Unavailable Fletcher Russell Unavailable Unavailable Bautista Casey MD Unavailable [phone] Jasmyn Oliver Unavailable [phone] Vika Kevin APRN OUTSOLE CEMENTER MACHINE Primary Care Prov ider Vika Kevin APRN [facility] Primary Care Prov ider Yasmeen Pendleton [facility] Unavailable + [phone] Vika Kevin APRN [facility] Primary Care [facility] ider Reason for Visit * Reason Comments Medication Refill Encounter Details Date Type Department Care Team (Late st Contact Info) Description 06/26/[address] [phone] [place] [address] [place] [address] Medication Refill Social History Tobacco Use [...] on file Legal 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 SHIATSU THERAPIST Gender Identity Not on file Sexual Orientation [...] per RN protocol Leslye Steiner RN, BSN [place] Triage * Telephone Encounter - Maylin Diaz - 06/26/2020 9:18 AM CDT Patient's calling already to see if this can be done today. Advised of the refill policy. Francisca Diaz, Molecular Biology Director documented in this encounter Plan of Treatment Not on file documented as of this encounter Visit Diagnoses Diagnosis Environmental allergies Allergic rhinitis, cause unspecified documented in this encounter Additional Health Concerns Infection Onset Date Last Indicated Resolved Time Rule Out COVID-19 07/25/2020 07/25/2020 07/26/2020 3:02 PM CDT Rule Out COVID-19 12/04/2020 12/04/2020 12/05/2020 6:04 PM SHIATSU THERAPIST Assessment Noted Time PHQ-9 Depression Total Score: 12 020 3:35 PM CDT documented as of this encounter Care Teams Community Service Officer Relationship Specialty Start Date End Date Julito Banuelos MD [address] [place] [address]484 PCP - General Family Practice 09/12/15 09/23/21 Vika Kevin APRN OUTSOLE CEMENTER MACHINE [address] [place] [address] PCP - General Nurse Practitioner - Family 09/24/21 03/05/22 Vika Kevin APRN OUTSOLE CEMENTER MACHINE [address] [place] [address] PCP - General Nurse Practitioner - Family 03/18/22 06/18/22 Vika Kevin APRN OUTSOLE CEMENTER MACHINE [address] [place] [address] PCP - General Nurse Practitioner - Family 07/24/22 Julito Banuelos MD [address] [place] [address] Assigned PCP 02/17/16 07/21/[address] [place] [address] Compensation Advisor Dietitian, Registered 04/14/19 Susannah Blankenship, [facility] [address] [facility] [address] [place] [address] Pharmacist Pharmacist 08/08/19 04/15/21 Carolyn Huynh, [facility] [address] [place] [address] Pharmacist Pharmacist 06/25/20 04/15/21 Vika Kevin APRN OUTSOLE CEMENTER MACHINE [address] [place] [address] 694712 Assigned PCP 07/22/20 11/16/24 Marilyn Willard MD [address] [facility] [address] [place], [place] 70[address]95 Assigned Surgical Provider 08/17/20 08/16/24 Carie Varela DO [address] [place] 969475 Assigned Heart and Vascular Provider 08/17/20 01/19/21 Maylin May NP [address] [place] [address] Assigned Pediatric Specialist Provider 12/16/20 06/13/22 Marisa Rodrigues, RN Clinic Commissioner Conservation Of Resources 01/15/21 02/26/21 Vilma Long MD [address] [place] 256815 Assigned Heart and Vascular Provider 01/20/21 07/20/21 Yasmeen Pendleton [facility] [address] [place], [place] 0[address] Pharmacist Pharmacist 06/04/21 01/15/22 Cole George LISW Lead Commissioner Conservation Of Resources 06/13/21 10/07/21 Fletcher Up Community Health Worker 06/13/21 09/12/21 Bautista Casey MD [address] [place], [place] 7[address] Assigned Heart and Vascular Provider 07/21/21 01/16/23 Jasmyn Oliver CHW Community Health Worker 09/13/21 10/07/21 Yasmeen Pendleton [facility] [address] [place] [address] Assigned MTM Pharmacist 03/22/22 01/02/23 documented as of this encounter
--- OUTSIDE RECORDS SUMMARY | 2024-12-16 22:57 | XMS_ITS | Encounter Summary ---
Author Organization [place] Address [address] [facility] [place] [address] Care Team Providers Care Cytotechnologist Supervisor Name Role Phone Julito Banuelos MD Primary Care Provider [phone] Unavailable Unavailable Susannah Blankenship [facility] Unavailable [phone] Carolyn Huynh [facility] Unavailable [phone] Vika Kevin APRN [facility] Unavailable + Marilyn Willard MD Unavailable [phone] Maylin May NP Unavailable [phone] Vilma Long MD Unavailable + [phone] Yasmeen Pendleton [facility] Unavailable [phone] Cole George Unavailable Fletcher Russell Unavailable Unavailable Bautista Casey MD Unavailable [phone] Jasmyn Oliver Unavailable [phone] Vika Kevin APRN [facility] Primary Care Prov ider Vika Kevin APRN [facility] Primary Care Prov ider Yasmeen Pendleton [facility] Unavailable Vika Kevin APRN [facility] Primary Care Prov ider Reason for Visit * Reason Onset Date Comments Results 03/12/2021 Encounter Details Date Type Department Care Team (Late st Contact Info) Description 03/12/2021 Telephone [facility] Emergency Dept [address] [place] [address] Dutch Carney, RN Results Social History Tobacco [...] on file Legal 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 DAYTIME BABYSITTER Gender Identity Not on file Sexual Orientation [...] Dill, ROGERIO - 03/13/2021 12:07 PM CDT [facility] Emergency Department/Urgent Care Lab result notification: [place] ED lab result protocol used Urine culture [...] Dept/Urgent Care discharge antibiotic: None Recommendations per [facility] ED Lab result Urine culture protocol. Information table from Emergency Dept Provider visit on 03/11/21 Symptoms reported at ED visit (Chief complaint, HPI) See below ED providers Impression and Plan (applicable information) See below Miscellaneous information na operations coordinator (Patient???s current Symptoms), include time called. [Insert Left message here if message left] 12:30PM: Spoke with the patient's NURSING HOME nurse Beena BEATTY. She states that the patient is doing well today, has no concerns. RN Recommendations/Instructions per [place] ED lab result protocol Patient's nurse notified [...] Preliminary result faxed to Beena BEATTY at [facility] at fax [phone]. Please Contact your PCP clinic or return to the Emergency department if your: ??? Symptoms return. ??? Symptoms worsen or other concerning symptom's. PCP follow-up Questions asked: YES Radha Dill RN [facility] [employer] [facility] Emergency Dept Lab Result RN Copy of Lab result Urine Culture Order: [id number] Status: Preliminary result ?Visible to patient: No [...] Susceptibility testing in progress P Resulting Agency [facility] Specimen Collected: 03/11/21 10:05 AM Last Resulted: 03/13/21 ??9:42 AM * Telephone Encounter - Dutch Carney RN - 03/12/2021 3:24 PM CDT [facility] Emergency Department Lab result notification [Adult-Female] [place] ED lab result protocol used Urine culture [...] Dept/Urgent Care discharge antibiotic: None Recommendations per [facility] ED Lab result Urine culture protocol. ?? [...] chest pain ED provider Vika Mayes MD operations coordinator (Patient???s current Symptoms), include time called. [Insert Left message here if message left] At 3:30P, Left voicemail message requesting a call back to [facility] ED Lab Result RN at [phone]. RN is available every day between 9 a.m. and 5:30 p.m. Dutch Carney RN [facility] [employer] [place] Emergency Dept Lab Result RN Copy of Lab result Contains abnormal data Urine Culture Order: [id number] Status: Preliminary result Visible to patient: No (not released) Dx: Acute chest pain Specimen Information: Catheterized Urine ?? Component 1d ago Specimen Description Catheterized Urine Special Requests Specimen received in preservative P Culture Micro Abnormal 10,000 to 50,000 colonies/mL Lactose fermenting gram negative rods P Culture Micro Culture in progress P Resulting Agency [facility] Specimen Collected: 03/11/21 10:05 AM Last Resulted: 03/12/21 12:59 PM documented in this encounter Plan of Treatment Not on file documented as of this encounter Visit Diagnoses Not on filedocumented in this encounter Additional Health Concerns Assessment Noted Time PHQ-9 Depression Total Score: 10 020 9:30 AM DAYTIME BABYSITTER documented as of this encounter Care Teams Cytotechnologist Supervisor Relationship Specialty Start Date End Date Julito Banuelos MD [address] [place] [address] PCP - General Family Practice 09/12/15 09/23/21 Vika Kevin APRN SPORTS OFFICIAL [address] [place] [address] 14328 PCP - General Nurse Practitioner - Family 09/24/21 03/05/22 Vika Kevin APRN SPORTS OFFICIAL [address] [place] [address] PCP - General Nurse Practitioner - Family 03/18/22 06/18/22 Vika Kevin APRN SPORTS OFFICIAL [address] [place] [address] PCP - General Nurse Practitioner - Family 07/24/[address] [place] [address] Student Life Vice President Dietitian, Registered 04/14/19 Susannah Blankenship, [facility] [address] [facility] [address] [place], [place] 474145 Pharmacist Pharmacist 08/08/19 04/15/21 Carolyn Huynh [facility] [address] [place] [address] Pharmacist Pharmacist 06/25/20 04/15/21 Vika Kevin APRN SPORTS OFFICIAL [address] [place] [address] 345042 Assigned PCP 07/22/20 11/16/24 Marilyn Willard MD [address] [facility] [address] [place], [place] 481495 Assigned Surgical Provider 08/17/20 08/16/24 Maylin May, JENNY [address] [place] [address] Assigned Pediatric Specialist Provider 12/16/20 06/13/22 Vilma Long MD [address] [place], [place] 852075 Assigned Heart and Vascular Provider 01/20/21 07/20/21 Yasmeen Pendleton [facility] [address] [place], [place] [address] Pharmacist Pharmacist 06/04/21 01/15/22 Cole George LISW Lead Stockroom Attendant 06/13/21 10/07/21 Fletcher Up Community Health Worker 06/13/21 09/12/21 Bautista Casey MD [address] [place] [address] Assigned Heart and Vascular Provider 07/21/21 01/16/23 Jasmyn Oliver CHW Community Health Worker 09/13/21 10/07/21 Yasmeen Pendleton [facility] [address] [place], [place] 2[address] Assigned MTM Pharmacist 03/22/22 01/02/23 documented as of this encounter
--- OUTSIDE RECORDS SUMMARY | 2024-12-16 22:57 | XMS_ITS | Encounter Summary ---
Author Organization [place] Address [address] [facility] [address] Care Team Providers Care Cement Fittings Maker Name Role Phone Julito Banuelos MD Primary Care Provider [phone] Julito Banuelos MD Unavailable Aleshia Henriquez RD Unavailable Unavailable Mary Kay Jones [facility] Unavailable Unavailable Susannah Blankenship [facility] Unavailable [phone] Carolyn Huynh [facility] Unavailable [phone] Vika Kevin APRN HAIR SAMPLE MATCHER Unavailable + Marilyn Willard MD Unavailable [phone] Carie Varela DO Unavailable [phone] Maylin May NP Unavailable [phone] Marisa Hernandez RN Unavailable Unavailable Vilma Long MD Unavailable Yasmeen Pendleton [facility] Unavailable Cole George Unavailable Fletcher Russell Unavailable Unavailable Bautista Casey MD Unavailable [phone] Jasmyn Oliver CHW Unavailable [phone] Vika Kevin APRN HAIR SAMPLE MATCHER Primary Care Prov ider Vika Kevin APRN [facility] Primary Care Prov ider Yasmeen Pendleton [facility] Unavailable + [phone] Vika Kevin APRN [facility] Primary Care Prov ider Reason for Visit * Reason Comments Medication Refill Encounter Details Date Type Department Care Team (Late st Contact Info) Description 04/20/[address] [phone] [place] [address] [place] [address] [id number] Medication Refill Social History Tobacco Use Types [...] on file Legal 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 Triage documented in this encounter Plan of Treatment Not on file documented as of this encounter Visit Diagnoses Diagnosis Hypothyroidism, unspecified type documented in this encounter Additional Health Concerns Infection Onset Date Last Indicated Resolved Time Rule Out COVID-19 07/25/2020 07/25/2020 07/26/2020 3:02 PM CDT Rule Out COVID-19 12/04/2020 12/04/2020 12/05/2020 6:04 PM MOTOR VEHICLE REPRESENTATIVE Assessment Noted Time PHQ-9 Depression Total Score: 8 07/18/20 19 12:06 PM CDT documented as of this encounter Care Teams Cement Fittings Maker Relationship Specialty Start Date End Date Julito Banuelos MD [address] [place] [address] PCP - General Family Practice 09/12/15 09/23/21 Vika Kevin APRN HAIR SAMPLE MATCHER [address] [place] [address] PCP - General Nurse Practitioner - Family 09/24/21 03/05/22 Vika Kevin APRN HAIR SAMPLE MATCHER [address] [place] [address] PCP - General Nurse Practitioner - Family 03/18/22 06/18/22 Vika Kevin APRN HAIR SAMPLE MATCHER [address] [place] [address] PCP - General Nurse Practitioner - Family 07/24/22 Julito Banuelos MD [address] [place] [address] Assigned PCP 02/17/16 07/21/[address] [place] [address] Dragline Mechanic Dietitian, Registered 04/14/19 Mary Kay Jones [facility] Pharmacist 08/01/19 04/20/20 Susannah Blankenship, [facility] [address] [facility] [address] [place], [place] [address] Pharmacist Pharmacist 08/08/19 04/15/21 Carolyn Huynh [facility] [address] [place] [address] Pharmacist Pharmacist 06/25/20 04/15/21 Vika Kevin, CATHETERIZATION LABORATORY TECHNICIAN HAIR SAMPLE MATCHER [address] [place] [address] [id number] Assigned PCP 07/22/20 11/16/24 Marilyn Willard MD [address] [facility] 394 [place], [place] [address]195 Assigned Surgical Provider 08/17/20 08/16/24 Carie Varela DO [address] [place] [address] Assigned Heart and Vascular Provider 08/17/20 01/19/21 Maylin May NP [address] [place], [place] 350[address] Assigned Pediatric Specialist Provider 12/16/20 06/13/22 Marisa Rodrigues, RN Clinic Job Compositor 01/15/21 02/26/21 Vilma Long MD [address] [place] [address] Assigned Heart and Vascular Provider 01/20/21 07/20/21 Yasmeen Pendleton [facility] [address] [place] [address] Pharmacist Pharmacist 06/04/21 01/15/22 Cole George LISW Lead Job Compositor 06/13/21 10/07/21 Fletcher Up Community Health Worker 06/13/21 09/12/21 Bautista Casey MD [address] [place] [address] Assigned Heart and Vascular Provider 07/21/21 01/16/23 Jasmyn Oliver CHW Community Health Worker 09/13/21 10/07/21 Yasmeen Pendleton [facility] [address] [place] [address] Assigned MTM Pharmacist 03/22/22 01/02/23 documented as of this encounter
--- OUTSIDE RECORDS SUMMARY | 2024-12-16 22:57 | XMS_ITS | Encounter Summary ---
Author Organization [place] Address [address] [facility] [address] Care Team Providers Care Ap Processor Name Role Phone Andrew Lu MD Primary Care Provider [phone] Niko Resendiz MD Primary Care Provider Carlie Mac MD Primary Care Provide r Angella Mendieta MD Primary Care Provider Julito Banuelos MD Primary Care Provider [phone] Julito Banuelos MD Unavailable Julito Banuelos MD Unavailable Aleshia Henriquez RD Unavailable Unavailable Mary Kay Jones [facility] Unavailable Unavailable Susannah Blankenship [facility] Unavailable [phone] Carolyn Huynh [facility] Unavailable [phone] Vika Kevin APRN SLOT TAG INSERTER Unavailable + Marilyn Willard MD Unavailable [phone] Carie Varela DO Unavailable +[phone] Maylin May NP Unavailable [phone] Marisa Rodrigues RN Unavailable Unavailable Vilma Long MD Unavailable + [phone] Yasmeen Pendleton [facility] Unavailable [phone] Cole George Unavailable Fletcher Russell Unavailable Unavailable Bautista Casey MD Unavailable TatyanaJasmyn anand [facility] Unavailable [phone] Vika Kevin APRN [facility] Primary Care Prov ider Vika Kevin APRN [facility] Primary Care Prov ider Yasmeen Pendleton [facility] Unavailable [phone] Vika Kevin APRN [facility] Primary Care Prov ider Encounter Details Date Type Department Care Team (Late st Contact Info) Description 05/19/[address] [phone] Jolene Martin Social History Tobacco Use Types [...] on file Legal 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 Gender Identity Not on file Sexual Orientation Not on file documented as of this encounter Plan of Treatment Not on file documented as of this encounter Visit Diagnoses Not on filedocumented in this encounter Additional Health Concerns Infection Onset Date Last Indicated Resolved Time Rule Out COVID-19 07/25/2020 07/25/2020 07/26/2020 3:02 PM CDT Rule Out COVID-19 12/04/2020 12/04/2020 12/05/2020 6:04 PM AUTOMATION CONTROL TECHNICIAN documented as of this encounter Care Teams Ap Processor Relationship Specialty Start Date End Date Andrew Lu MD XXX RETIRED XXX [address] [place] [phone] PCP - General 12/10/01 01/10/14 Niko Resendiz MD [address] [address] PCP - General Internal Medicine 01/11/14 01/29/14 Carlie Mac MD [address] [place] [address] PCP - General Pediatrics 01/30/14 07/17/15 Angella Mendieta MD [address] [place] [address] PCP - General Family Practice 07/18/15 09/11/15 Julito Banuelos MD [address] [place] [address]3946 PCP - General Family Practice 09/12/15 09/23/21 Julito Banuelos MD [address] [place] [address]453 PCP - Assigned PCP 02/17/16 12/28/18 Vika Kevin APRN SLOT TAG INSERTER [address] [place] [address]8560 PCP - General Nurse Practitioner - Family 09/24/21 03/05/22 Vika Kevin APRN SLOT TAG INSERTER [address] [place] [address]277 PCP - General Nurse Practitioner - Family 03/18/22 06/18/22 Vika Kevin APRN SLOT TAG INSERTER [address] [place] [address] 817522 PCP - General Nurse Practitioner - Family 07/24/22 Julito Banuelos MD [address] [place] [address] 803782 Assigned PCP 02/17/16 07/21/20 Aleshia Henriquez, DAVE [address] [place] [address] Adult Live In Caregiver Dietitian, Registered 04/14/19 Mary Kay Jones, [facility] Pharmacist 08/01/19 04/20/20 Susannah Blankenship, [facility] [address] [place] [address] [address] [place], [place] 9[address] Pharmacist Pharmacist 08/08/19 04/15/21 [facility] [address] [place], [place] [address] Pharmacist Pharmacist 06/25/20 04/15/21 Vika Kevin APRN SLOT TAG INSERTER [address] [place] [address] 892612 Assigned PCP 07/22/20 11/16/24 Marilyn Willard MD [address] [facility] [address] [place], [place] 37[address] Assigned Surgical Provider 08/17/20 08/16/24 Carie Varela DO [address] [place], [place] [address] Assigned Heart and Vascular Provider 08/17/20 01/19/21 Maylin May, JENNY [address] [place] [address] Assigned Pediatric Specialist Provider 12/16/20 06/13/22 Marisa Rodrigues, RN Clinic Economic Forecaster 01/15/21 02/26/21 Vilma Long MD [address] [place] [address] Assigned Heart and Vascular Provider 01/20/21 07/20/21 Yasmeen Pendleton [facility] [address] [place] [address] Pharmacist Pharmacist 06/04/21 01/15/22 Cole George LISW Lead Economic Forecaster 06/13/21 10/07/21 Fletcher Up Community Health Worker 06/13/21 09/12/21 Bautista Casey MD [address] [place] [address] Assigned Heart and Vascular Provider 07/21/21 01/16/23 Jasmyn Oliver CHW Community Health Worker 09/13/21 10/07/21 Yasmeen Pendleton [facility] [address] [place] [address] 213245 Assigned MTM Pharmacist 03/22/22 01/02/23 documented as of this encounter
--- OUTSIDE RECORDS SUMMARY | 2024-12-16 22:58 | XMS_ITS | Encounter Summary ---
Author Organization [place] Address [address] [facility] [place] [address] Care Team Providers Care Industrial Design Engineer Name Role Phone Andrew Lu MD Primary Care Provider [phone] Niko Resendiz MD Primary Care Provider Carlie Mac MD Primary Care Provide r Angella Mendieta MD Primary Care Provider Julito Banuelos MD Primary Care Provider [phone] Julito Banuelos MD Unavailable Julito Banuelos MD Unavailable Aleshia Henriquez RD Unavailable Unavailable Mary Kay Jones [facility] Unavailable Unavailable Susannah Blankenship [facility] Unavailable [phone] Carolyn Huynh [facility] Unavailable [phone] Vika Kevin APRN DEDICATED REGIONAL DRIVER Unavailable + Marilyn Willard MD Unavailable [phone] Carie Varela DO Unavailable [phone] Maylin May NP Unavailable [phone] Marisa Rodrigues RN Unavailable Unavailable Vilma Long MD Unavailable + [phone] Yasmeen Pendleton [facility] Unavailable [phone] Cole George Unavailable Fletcher Russell Unavailable Unavailable Bautista Casey MD Unavailable DemetriusJasmyn wright [facility] Unavailable [phone] [facility] Primary Care Prov ider Vika Kevin APRN [facility] Primary Care Prov ider Yasmeen Pendleton [facility] Unavailable [facility] Primary Care Prov ider Encounter Details Date Type Department Care Team (Late st Contact Info) Description 12/28/2013 MyC Medical Advice [facility] - Primary Care Skin [address] [place] [phone] Jenn Yip MD [address] 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 Gender Identity Not on file Sexual [...] Out COVID-19 12/04/2020 12/04/2020 12/05/2020 6:04 PM SNOW REMOVING SUPERVISOR documented as of this encounter Care Teams Industrial Design Engineer Relationship Specialty Start Date End Date Andrew Lu MD XXX RETIRED XXX [address] [place] [phone] PCP - General 12/10/01 01/10/14 Niko Resendiz MD [address] [place] [address] PCP - General Internal Medicine 01/11/14 01/29/14 Carlie Mac MD [address] [place] [address] PCP - General Pediatrics 01/30/14 07/17/15 Angella Mendieta MD [address] [place] [address] PCP - General Family Practice 07/18/15 09/11/15 Julito Banuelos MD [address] [place] [address] PCP - General Family Practice 09/12/15 09/23/21 Julito Banuelos MD [address] [place] [address] PCP - Assigned PCP 02/17/16 12/28/18 Vika Kevin APRN DEDICATED REGIONAL DRIVER [address] [place] [address] PCP - General Nurse Practitioner - Family 09/24/21 03/05/22 Vika Kevin APRN DEDICATED REGIONAL DRIVER [address] [place] [address] PCP - General Nurse Practitioner - Family 03/18/22 06/18/22 Vika Kevin APRN DEDICATED REGIONAL DRIVER [address] [place] [address] 062902 PCP - General Nurse Practitioner - Family 07/24/22 Julito Banuelos MD [address] [place] [address] 198312 Assigned PCP 02/17/16 07/21/[address] [place] [address] Counselor/Art Therapist Dietitian, Registered 04/14/19 Mary Kay Jones, [facility] Pharmacist 08/01/19 04/20/20 Susannah Blankenship, [facility] [address] [facility] [address] [place], [place] [address] Pharmacist Pharmacist 08/08/19 04/15/21 Carolyn Huynh, [facility] [address] [place], [place] [address] Pharmacist Pharmacist 06/25/20 04/15/21 Vika Kevin, JAIME DEDICATED REGIONAL DRIVER [address] [place] [address] 609432 Assigned PCP 07/22/20 11/16/24 Marilyn Willard MD 420 [facility] 394 [place], [place] [address] Assigned Surgical Provider 08/17/20 08/16/24 Carie Varela DO [address] [place] [address] Assigned Heart and Vascular Provider 08/17/20 01/19/21 Maylin May NP [address] [facility] [place] [address] Assigned Pediatric Specialist Provider 12/16/20 06/13/22 Marisa Rodrigues, RN Clinic Vendette 01/15/21 02/26/21 Vilma Long MD [address] [place] [address] Assigned Heart and Vascular Provider 01/20/21 07/20/21 Yasmeen Pendleton [facility] [address] [place] [address] Pharmacist Pharmacist 06/04/21 01/15/22 Cole George LISW Lead [place]endette 06/13/21 10/07/21 Fletcher Up Community Health Worker 06/13/21 09/12/21 Bautista Casey MD [address] [place] [address] Assigned Heart and Vascular Provider 07/21/21 01/16/23 Jasmyn Oliver CHW Community Health Worker 09/13/21 10/07/21 [facility] [address] [place] [address] Assigned MTM Pharmacist 03/22/22 01/02/23 documented as of this encounter
--- OUTSIDE RECORDS SUMMARY | 2024-12-16 22:58 | XMS_ITS | Encounter Summary ---
Author Organization [place] Address [address] [facility] [place] [address] Care Team Providers Care Mold Car Pusher Name Role Phone Cortez Lu MD Primary Care Provider [phone] Niko Resendiz MD Primary Care Provider Carlie Mac MD Primary Care Provide r Angella Mendieta MD Primary Care Provider Julito Banuelos MD Primary Care Provider [phone] Julito Banuelos MD Unavailable Julito Banuelos MD Unavailable Aleshia Henriquez RD Unavailable Unavailable Mary Kay Jones [facility] Unavailable Unavailable Susannah Blankenship [facility] Unavailable [phone] Carolyn Huynh [facility] Unavailable [phone] Vika Kevin APRN BILINGUAL HR GENERALIST Unavailable + Marilyn Willard MD Unavailable [phone] Carie Varela DO Unavailable +[phone] Maylin May NP Unavailable [phone] Marisa Rodrigues RN Unavailable Unavailable Vilma Long MD Unavailable + [phone] Yasmeen Pendleton [facility] Unavailable + [phone] Cole George Unavailable Fletcher Russell Unavailable Unavailable Bautista Casey MD Unavailable [phone] TatyanaJasmyn anand [facility] Unavailable [phone] Vika Kevin APRN [facility] Primary Care Prov ider Vika Kevin APRN [facility] Primary Care Prov ider Yasmeen Pendleton [facility] Unavailable + [phone] Vika Kevin [facility] Primary Care Prov ider Encounter Details Date Type Department Care Team (Late st Contact Info) Description 11/14/2013 Office Visit-[facility] Heart [facility] [address] [facility] [address] [place] [phone] Cristy Hanna, JAIME [facility] XXX RESIGNED XXX [address] [facility] [address] [place] [id number] Social History Tobacco Use Types Packs/Day Years Used Date Smoking Tobacco: Former Cigarettes 0.3 15 0 10/26/1961 - 10/26/1976 Smokeless Tobacco: Never Alcohol Use Standard Drinks/Week Comments Yes 0 (1 standard drink = 0.6 oz pur e alcohol) 1-2 glasses of wine weekly Comments No Sex and Gender Information Value Date Recorded Sex Assigned at Not on file Legal 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 FOUNTAIN SERVER Gender Identity Not on file Sexual Orientation [...] old Referring Physician: CORTEZ LU Referring Clinic: [facility] CURRENT DIAGNOSES 1. 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 - Hyperlipidemia mixed, 272.2 [...] daily 10. Nasacort AQ 55 mcg Aerosol, [place], Take as Directed 11. Plavix 75 mg [...] the pleasure of meeting Marialuisa James, at [facility]. She is a 73-year-old white female with a history of coronary artery disease, hypertension, diabetes mellitus, dyslipidemia and asthma, who is here today for evaluation of pal pitations, which awoke her from sleep. Her cardiovascular history includes hypertension, diabetes mellitus and dyslipidemia. In December 2012while in [place] she had a non-ST elevation myocardial infarction and underwent angiogram with PCI to the proximal and mid circumflex. LV function has been normal by echocardiogram. Apparently the car diologist in [place] recommended lifelong Plavix. She was last seen [...] Leg syndrome Past Cardiac Illnesses: CAD, s/p [place] Surgeries/Procedures - General: hysterectomy, tonsillectomy Cardiac/Vasc Procedures-Invasive: left heart cath 12/2012 ([place]) Cardiology Procedures-NonInvasive: echocardiogram Jun 2007, myocardial perfusion (Nuc) Jun 2007, echo 12/2012 ([place]), stress echo February 2013 Cardiac Cath Results: 12/2012 [place] [facility] NELIA to the mid and prox [...] - lives with and been living in [place] for 3 months; Place of - [place]; REVIEW OF SYSTEMS GENERAL fatigue, weight loss, [...] takes allergy shots, allergies get worse in [place] but they can get bad in [place] too PHYSICAL EXAMINATION VITAL SIGNS: Blood Pressure: [...] Out COVID-19 12/04/2020 12/04/2020 12/05/2020 6:04 PM FOUNTAIN SERVER documented as of this encounter Care Teams Mold Car Pusher Relationship Specialty Start Date End Date Cortez Lu MD XXX RETIRED XXX [address] [place] [phone] PCP - General 12/10/01 01/10/14 Niko Resendiz MD [address] [address] PCP - General Internal Medicine 01/11/14 01/29/14 Carlie Mac MD [address] [place] [address] PCP - General Pediatrics 01/30/14 07/17/15 Angella Mendieta MD [address] [place] [address] PCP - General Family Practice 07/18/15 09/11/15 Julito Banuelos MD [address] [place] [address] PCP - General Family Practice 09/12/15 09/23/21 Julito Banuelos MD [address] [place] [address] PCP - Assigned PCP 02/17/16 12/28/18 Vika Kevin APRN BILINGUAL HR GENERALIST [address] [place] [address] PCP - General Nurse Practitioner - Family 09/24/21 03/05/22 Vika Kevin APRN BILINGUAL HR GENERALIST [address] [place] [address] PCP - General Nurse Practitioner - Family 03/18/22 06/18/22 Vika Kevin APRN BILINGUAL HR GENERALIST [address] [place] [address] 13666 PCP - General Nurse Practitioner - Family 07/24/22 Julito Banuelos MD [address] [place] [address] Assigned PCP 02/17/16 07/21/[address] [place] [address] Player Manager Dietitian, Registered 04/14/19 Mary Kay Jones [facility] Pharmacist 08/01/19 04/20/20 Susannah Blankenship [facility] [address] [place] [address] 812 [place] [address] Pharmacist Pharmacist 08/08/19 04/15/21 Carolyn Huynh [facility] [address] [place] [address] Pharmacist Pharmacist 06/25/20 04/15/21 Vika Kevin APRN BILINGUAL HR GENERALIST [address] [place], [place] 931442 Assigned PCP 07/22/20 11/16/24 Marilyn Willard MD 420 [facility] [address] [place], [place] [address] Assigned Surgical Provider 08/17/20 08/16/24 Carie Varela DO [address] [place] [address] Assigned Heart and Vascular Provider 08/17/20 01/19/21 Maylin May NP [address] [place], [place] 56[address] Assigned Pediatric Specialist Provider 12/16/20 06/13/22 Marisa Rodrigues, RN Clinic Park Police 01/15/21 02/26/21 Vilma Long MD [address] [place] [address] Assigned Heart and Vascular Provider 01/20/21 07/20/21 Yasmeen Pendleton [facility] [address] [place], [place] [address] Pharmacist Pharmacist 06/04/21 01/15/22 Cole George LISW Lead Park Police 06/13/21 10/07/21 Fletcher Up Community Health Worker 06/13/21 09/12/21 Bautista Casey MD [address] [place] [address] Assigned Heart and Vascular Provider 07/21/21 01/16/23 Jasmyn Oliver CHW Community Health Worker 09/13/21 10/07/21 Yasmeen Pendleton [facility] [address] [place], [place] [address] Assigned MTM Pharmacist 03/22/22 01/02/23 documented as of this encounter
--- OUTSIDE RECORDS SUMMARY | 2024-12-16 22:58 | XMS_ITS | Encounter Summary ---
Author Organization [place] Address [address] [facility] [place] [address] Care Team Providers Care Carbonation Equipment Tender Name Role Phone Andrew Lu MD Primary Care Provider [phone] Niko Resendiz MD Primary Care Provider Carlie Mac MD Primary Care Provide r Angella Mendieta MD Primary Care Provider Julito Banuelos MD Primary Care Provider [phone] Julito Banuelos MD Unavailable Julito Banuelos MD Unavailable Aleshia Henriquez RD Unavailable Unavailable Mary Kay Jones [facility] Unavailable Unavailable Susannah Blankenship [facility] Unavailable [phone] Carolyn Huynh [facility] Unavailable [phone] Vika Kevin APRN BUILDING CONSTRUCTION FOREMAN Unavailable + Marilyn Willard MD Unavailable [phone] Carie Varela DO Unavailable [phone] Maylin May NP Unavailable [phone] Marisa Rodrigues RN Unavailable Unavailable Vilma Long MD Unavailable + [phone] Yasmeen Pendleton [facility] Unavailable [phone] Cole George Unavailable Fletcher Russell Unavailable Unavailable Bautista Casey MD Unavailable [phone] nAnyJasmyn tracey [facility] Unavailable [phone] Vika Kevin APRN [facility] Primary Care Prov ider Vika Kevin APRN [facility] Primary Care Prov ider Yasmeen Pendleton [facility] Unavailable [phone] [facility] Primary Care Prov ider Encounter Details Date Type Department Care Team (Late st Contact Info) Description 01/03/2014 MyC Medical Advice [address] [phone] Niko Resendiz MD [address] [place] [address] [id number] Social History Tobacco Use Types Packs/Day Years Used Date Smoking Tobacco: Former Cigarettes 0.3 15 0 10/26/1961 - 10/26/1976 Smokeless Tobacco: Never Alcohol Use Standard Drinks/Week Comments Yes 0 (1 standard drink = 0.6 oz pur e alcohol) 1-2 glasses of wine weekly Comments No Sex and Gender Information Value Date Recorded Sex Assigned at Not on file Legal 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 DAM WORKER Gender Identity Not on file Sexual [...] Out COVID-19 12/04/2020 12/04/2020 12/05/2020 6:04 PM DAM WORKER documented as of this encounter Care Teams Carbonation Equipment Tender Relationship Specialty Start Date End Date Andrew Lu MD XXX RETIRED XXX [address] [place] [phone] PCP - General 12/10/01 01/10/14 Niko Resendiz MD [address] [place] [address] PCP - General Internal Medicine 01/11/14 01/29/14 Carlie Mac MD [address] [place] [address] PCP - General Pediatrics 01/30/14 07/17/15 Angella Mendieta MD [address] [place] [address] PCP - General Family Practice 07/18/15 09/11/15 Julito Banuelos MD [address] [place] [address] PCP - General Family Practice 09/12/15 09/23/21 Julito Banuelos MD [address] [place] [address] PCP - Assigned PCP 02/17/16 12/28/18 Vika Kevin APRN BUILDING CONSTRUCTION FOREMAN [address] [place] [address] PCP - General Nurse Practitioner - Family 09/24/21 03/05/22 Vika Kevin APRN BUILDING CONSTRUCTION FOREMAN [address] [place] [address] PCP - General Nurse Practitioner - Family 03/18/22 06/18/22 Vika Kevin APRN BUILDING CONSTRUCTION FOREMAN [address] [place] [address] 679112 PCP - General Nurse Practitioner - Family 07/24/22 Julito Banuelos MD [address] [place] [address] 038812 Assigned PCP 02/17/16 07/21/[address] [place] [address] Investigator Fraud Dietitian, Registered 04/14/19 [facility] Pharmacist 08/01/19 04/20/20 Susannah Blankenship, [facility] [address] [place] [address] 812 [place], [place] [address] Pharmacist Pharmacist 08/08/19 04/15/21 Carolyn Huynh, [facility] [address] [place] [address] Pharmacist Pharmacist 06/25/20 04/15/21 Vika Kevin APRN BUILDING CONSTRUCTION FOREMAN [address] [place] [address] 338112 Assigned PCP 07/22/20 11/16/24 Marilyn Willard MD [address] [place] [address] [address] [place], [place] [address] Assigned Surgical Provider 08/17/20 08/16/24 Carie Varela DO [address] [place] [address] Assigned Heart and Vascular Provider 08/17/20 01/19/21 Maylin May NP [address] [place] [address] Assigned Pediatric Specialist Provider 12/16/20 06/13/22 Marisa Rodrigues, RN Clinic Store Clerk Checker 01/15/21 02/26/21 Vilma Long MD [address] [place] [address] Assigned Heart and Vascular Provider 01/20/21 07/20/21 Yasmeen Pendleton [facility] [address] [place] [address] Pharmacist Pharmacist 06/04/21 01/15/22 Cole George LISW Lead Store Clerk Checker 06/13/21 10/07/21 Fletcher Up Community Health Worker 06/13/21 09/12/21 Bautista Casey MD [address] [place] [address] Assigned Heart and Vascular Provider 07/21/21 01/16/23 Jasmyn Oliver CHW Community Health Worker 09/13/21 10/07/21 Yasmeen Pendleton [facility] [address] [place] [address] Assigned MTM Pharmacist 03/22/22 01/02/23 documented as of this encounter
--- OUTSIDE RECORDS SUMMARY | 2024-12-16 22:58 | XMS_ITS | Encounter Summary ---
Author Organization [place] Address [address] [facility] [place] [address] Care Team Providers Care Grab Jack Worker Name Role Phone Niko Resendiz MD Primary Care Provider Carlie Mac MD Primary Care Provide r Angella Mendieta MD Primary Care Provider Julito Banuelos MD Primary Care Provider Julito Banuelos MD Unavailable Julito Banuelos MD Unavailable Aleshia Henriquez RD Unavailable Unavailable Mary Kay Jones RP Unavailable Unavailable Susannah Blankenship [facility] Unavailable [phone] Carolyn Huynh [facility] Unavailable [phone] Vika Kevin TURNAROUND PLANNER PHYSICIAN LIAISON Unavailable + Marilyn Willard MD Unavailable Carie Varela DO Unavailable [phone] Maylin May NP Unavailable [phone] Marisa Hernandez RN Unavailable Unavailable Vilma Long MD Unavailable + [phone] Yasmeen Pendleton [facility] Unavailable Cole George Unavailable Unavai jonathan Up Fletcher Unavailable Unavailable Ip, Bautista Bell MD Unavailable TatyanaJasmyn anand W Unavailable [phone] Vika Kevin TURNAROUND PLANNER [facility] Primary Care Prov ider Vika Kevin [facility] Primary Care Prov ider Yasmeen Pendleton [facility] Unavailable + [phone] Vika Kevin [facility] Primary Care Prov ider Reason for Visit * Reason Onset Date Comments Other 01/28/2014 PCP change Encounter Details Date Type Department Care Team (Late st Contact Info) Description 01/28/2014 [facility] Medical Advice [address] [address] Carlie Mac MD [address] [place] [address] Other (PCP change ) Social [...] file Legal 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 CLINICAL EDUCATION SPECIALIST Gender Identity Not on file Sexual [...] COVID-19 12/04/2020 12/04/2020 12/05/2020 6:04 PM CLINICAL EDUCATION SPECIALIST documented as of this encounter Care Teams Grab Jack Worker Relationship Specialty Start Date End Date Niko Resendiz MD [address] [place] [address] PCP - General Internal Medicine 01/11/14 01/29/14 Carlie Mac MD [address] [place] [address] PCP - General Pediatrics 01/30/14 07/17/15 Angella Mendieta MD [address] [place] [address] 38245 PCP - General Family Practice 07/18/15 09/11/15 Julito Banuelos MD [address] [place] [address] 58472 PCP - General Family Practice 09/12/15 09/23/21 Julito Banuelos MD [address] [place] [address]2654 PCP - Assigned PCP 02/17/16 12/28/18 Vika Kevin APRN PHYSICIAN LIAISON [address] [place] [address] 64168 PCP - General Nurse Practitioner - Family 09/24/21 03/05/22 Vika Kevin APRN PHYSICIAN LIAISON [address] [place] [address] 50844 PCP - General Nurse Practitioner - Family 03/18/22 06/18/22 Vika Kevin, JAIME PHYSICIAN LIAISON [address] [place] [address] 614872 PCP - General Nurse Practitioner - Family 07/24/22 Julito Banuelos MD [address] [place] [address] 013492 Assigned PCP 02/17/16 07/21/[address] [place] [address] 17342 Plate Developer Dietitian, Registered 04/14/19 Mary Kay Jones, [facility] Pharmacist 08/01/19 04/20/20 Susannah Blankenship, [facility] [address] [facility] [address] [place], [place] [address] Pharmacist Pharmacist 08/08/19 04/15/21 [facility] [address] [place], [place] [address] Pharmacist Pharmacist 06/25/20 04/15/21 Vika Kevin, JAIME PHYSICIAN LIAISON [address] [place] [address] 797512 Assigned PCP 07/22/20 11/16/24 Marilyn Willard MD [address] [facility] [address] [place], [place] [address] Assigned Surgical Provider 08/17/20 08/16/24 Carie Varela DO [address] [place] [address] Assigned Heart and Vascular Provider 08/17/20 01/19/21 Maylin May NP [address] [place] [address] Assigned Pediatric Specialist Provider 12/16/20 06/13/22 Marisa Rodrigues, RN Clinic Nonprofit Fundraiser 01/15/21 02/26/21 Vilma Long MD [address] [place] [address] Assigned Heart and Vascular Provider 01/20/21 07/20/21 [facility] [address] [place] [address] Pharmacist Pharmacist 06/04/21 01/15/22 Cole George LISW Lead Nonprofit Fundraiser 06/13/21 10/07/21 Fletcher Up Community Health Worker 06/13/21 09/12/21 Bautista Casey MD [address] [place] [address] Assigned Heart and Vascular Provider 07/21/21 01/16/23 Jasmyn Oliver CHW Community Health Worker 09/13/21 10/07/21 [facility] [address] [place] [address] Assigned MTM Pharmacist 03/22/22 01/02/23 documented as of this encounter
--- OUTSIDE RECORDS SUMMARY | 2024-12-16 22:58 | XMS_ITS | Encounter Summary ---
Author Organization [place] Address [address] [facility] [place] [address] Care Team Providers Care Soaking Tank Worker Name Role Phone Andrew Lu MD Primary Care Provider [phone] Niko Resendiz MD Primary Care Provider Carlie Mac MD Primary Care Provide r Angella Mendieta MD Primary Care Provider Julito Banuelos MD Primary Care Provider [phone] Julito Banuelos MD Unavailable Julito Banuelos MD Unavailable Aleshia Henriquez RD Unavailable Unavailable Mary Kay Jones [facility] Unavailable Unavailable Susannah Blankenship [facility] Unavailable +[phone] Carolyn Huynh [facility] Unavailable +[phone] Vika Kevin APRN SKEINER Unavailable + Marilyn Willard MD Unavailable [phone] Carie Varela DO Unavailable [phone] Maylin May NP Unavailable [phone] Marisa Rodrigues RN Unavailable Unavailable Vilma Long MD Unavailable + [phone] Yasmeen Pendleton [facility] Unavailable + [phone] Cole George Unavailable Fletcher Russell Unavailable Unavailable Bautista Casey MD Unavailable DemetriusJasmyn wright [facility] Unavailable [phone] Vika [facility] Primary Care Prov ider Vika Kevin APRN [facility] Primary Care Prov ider Yasmeen Pendleton [facility] Unavailable [phone] Vika Kevin [facility] Primary Care Prov ider Reason for Visit * Reason Onset Date Comments UTI 08/24/2013 Encounter Details Date Type Department Care Team (Late st Contact Info) Description 08/24/2013 [facility] Medical Advice [address] [address] Andrew Lu MD XXX RETIRED XXX [address] [place] [address] UTI Social History Tobacco Use Types [...] on file Legal 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 PEARL GLUE OPERATOR Gender Identity Not on file Sexual [...] Out COVID-19 12/04/2020 12/04/2020 12/05/2020 6:04 PM PEARL GLUE OPERATOR documented as of this encounter Care Teams Soaking Tank Worker Relationship Specialty Start Date End Date Andrew Lu MD XXX RETIRED XXX [address] [place] [phone] PCP - General 12/10/01 01/10/14 Niko Resendiz MD [address] [place] [address]264 PCP - General Internal Medicine 01/11/14 01/29/14 Carlie Mca MD [address] [place] [address] PCP - General Pediatrics 01/30/14 07/17/15 Angella Mendieta MD [address] [place] [address] PCP - General Family Practice 07/18/15 09/11/15 Julito Banuelos MD [address] [place] [address] PCP - General Family Practice 09/12/15 09/23/21 Julito Banuelos MD [address] [place] [address] 21325 PCP - Assigned PCP 02/17/16 12/28/18 Vika Kevin APRN SKEINER [address] [place] [address] PCP - General Nurse Practitioner - Family 09/24/21 03/05/22 Vika Kevin APRN SKEINER [address] [place] [address] PCP - General Nurse Practitioner - Family 03/18/22 06/18/22 Vika Kevin APRN SKEINER [address] [place] [address] [phone] PCP - General Nurse Practitioner - Family 07/24/22 Julito Banuelos MD [address] [place] [address] 606032 Assigned PCP 02/17/16 07/21/[address] [place] [address] Cleater Dietitian, Registered 04/14/19 Mary Kay Jones, [facility] Pharmacist 08/01/19 04/20/20 Susannah Blankenship, [facility] [address] [place] [address] [address] [place], [place] 549385 Pharmacist Pharmacist 08/08/19 04/15/21 Carolyn Huynh, [facility] [address] [place], [place] [address] Pharmacist Pharmacist 06/25/20 04/15/21 Vika Kevin APRN SKEINER [address] [place] [address] 606262 Assigned PCP 07/22/20 11/16/24 Marilyn Willard MD [address] [place] [address] [address] [place], [place] [id number] Assigned Surgical Provider 08/17/20 08/16/24 Carie Varela DO [address] [place] [address] Assigned Heart and Vascular Provider 08/17/20 01/19/21 Maylin May NP [address] [place] [address] Assigned Pediatric Specialist Provider 12/16/20 06/13/22 Marisa Rodrigues, RN Clinic Finance Insurance Manager 01/15/21 02/26/21 Vilma Long MD [address] [place] [address] Assigned Heart and Vascular Provider 01/20/21 07/20/21 Yasmeen Pendleton [facility] [address] [place] [address] [id number] Pharmacist Pharmacist 06/04/21 01/15/22 Cole George LISW Lead Finance Insurance Manager 06/13/21 10/07/21 Fletcher Up Community Health Worker 06/13/21 09/12/21 Bautista Casey MD [address] [place] [address] Assigned Heart and Vascular Provider 07/21/21 01/16/23 Jasmyn Oliver CHW Community Health Worker 09/13/21 10/07/21 Yasmeen Pendleton [facility] [address] [place] [address] 081935 Assigned MTM Pharmacist 03/22/22 01/02/23 documented as of this encounter
--- OUTSIDE RECORDS SUMMARY | 2024-12-16 22:58 | XMS_ITS | Encounter Summary ---
Author Organization [place] Address [address] [facility] [place] [address] Care Team Providers Care Golf Ball Inspector Name Role Phone Andrew Lu MD Primary Care Provider [phone] Niko Resendiz MD Primary Care Provider Carlie Mac MD Primary Care Provide r Angella Mendieta MD Primary Care Provider Julito Banuelos MD Primary Care Provider [phone] Julito Banuelos MD Unavailable Julito Banuelos MD Unavailable Aleshia Henriquez RD Unavailable Unavailable Mary Kay Jones [facility] Unavailable Unavailable Susannah Blankenship [facility] Unavailable [phone] Carolyn Huynh [facility] Unavailable [phone] Vika Kevin APRN DESIGN DIRECTOR Unavailable + Marilyn Willard MD Unavailable [phone] Carie Varela DO Unavailable [phone] Maylin May NP Unavailable [phone] Marisa Rodrigues RN Unavailable Unavailable Vilma Long MD Unavailable + [phone] Yasmeen Pendleton [facility] Unavailable [phone] Cole George Unavailable Fletcher Russell Unavailable Unavailable Bautista Casey MD Unavailable DemetriusJasmyn wright [facility] Unavailable [phone] Vika Kevin APRN [facility] Primary Care Prov ider Vika Kevin APRN [facility] Primary Care Prov ider Yasmeen Pendleton [facility] Unavailable Vika [facility] Primary Care Prov ider Encounter Details Date Type Department Care Team (Latest Contact Info) Description 07/08/2013 Medical Correspondence [address] [phone] Andrew Lu MD XXX RETIRED XXX [address] [phone] [facility] 07/08/13 Social History [...] on file Legal 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 RADIO ANTENNA INSTALLER Gender Identity Not on file Sexual [...] Out COVID-19 12/04/2020 12/04/2020 12/05/2020 6:04 PM RADIO ANTENNA INSTALLER documented as of this encounter Care Teams Golf Ball Inspector Relationship Specialty Start Date End Date Andrew Lu MD XXX RETIRED XXX [address] [place] [phone] PCP - General 12/10/01 01/10/14 Niko Resendiz MD [address] [place] [address] PCP - General Internal Medicine 01/11/14 01/29/14 Carlie Mac MD [address] [place] [address] PCP - General Pediatrics 01/30/14 07/17/15 Angella Mendieta MD [address] [place] [address] PCP - General Family Practice 07/18/15 09/11/15 Julito aBnuelos MD [address] [place] [address] PCP - General Family Practice 09/12/15 09/23/21 Julito Banuelos MD [address] [place] [address] PCP - Assigned PCP 02/17/16 12/28/18 Vika Kevin APRN CNP [address] [place] [address] PCP - General Nurse Practitioner - Family 09/24/21 03/05/22 Vika Kevin APRN DESIGN DIRECTOR [address] [place] [address] PCP - General Nurse Practitioner - Family 03/18/22 06/18/22 Vika Kevin APRN DESIGN DIRECTOR [address] [place] [address] PCP - General Nurse Practitioner - Family 07/24/22 Julito Banuelos MD [address] [place] [address] 784452 Assigned PCP 02/17/16 07/21/[address] [place] [address] Corporation Pilot Dietitian, Registered 04/14/19 Mary Kay Jones [facility] Pharmacist 08/01/19 04/20/20 Susannah Blankenship, [facility] [address] [place] [address] 8[address] [place], [place] 417[address] Pharmacist Pharmacist 08/08/19 04/15/21 Carolyn Huynh, [facility] [address] [place] [address] Pharmacist Pharmacist 06/25/20 04/15/21 Vika Kevin, JAIME DESIGN DIRECTOR [address] [place] [address] 750662 Assigned PCP 07/22/20 11/16/24 Marilyn Willard MD [address] [facility] [address] [place], [place] 6508[address] Assigned Surgical Provider 08/17/20 08/16/24 Carie Varela DO [address] [place] [address] Assigned Heart and Vascular Provider 08/17/20 01/19/21 Maylin May NP [address] [place] [address] Assigned Pediatric Specialist Provider 12/16/20 06/13/22 Marisa Rodrigues, RN Clinic Pouncer Machine 01/15/21 02/26/21 Vilma Long MD [address] [place] [address] Assigned Heart and Vascular Provider 01/20/21 07/20/21 Yasmeen Pendleton [facility] [address] [place] [address] [phone] Pharmacist Pharmacist 06/04/21 01/15/22 Cole George LISW Lead Pouncer Machine 06/13/21 10/07/21 Fletcher Up Community Health Worker 06/13/21 09/12/21 Bautista Casey MD [address] [place] [address] Assigned Heart and Vascular Provider 07/21/21 01/16/23 Jasmyn Oliver CHW Community Health Worker 09/13/21 10/07/21 Yasmeen Pendleton [facility] [address] [place] [address] Assigned MTM Pharmacist 03/22/22 01/02/23 documented as of this encounter
--- OUTSIDE RECORDS SUMMARY | 2024-12-16 22:58 | XMS_ITS | Encounter Summary ---
Author Organization [place] Address [address] [place] [address] Care Team Providers Care Svp Digital Ad Sales Name Role Phone Cortez Lu MD Primary Care Provider [phone] Niko Resendiz MD Primary Care Provider Carlie Mac MD Primary Care Provide r Angella Mendieta MD Primary Care Provider Julito Banuelos MD Primary Care Provider [phone] Julito Banuelos MD Unavailable Julito Banuelos MD Unavailable Aleshia Henriquez RD Unavailable Unavailable Mary Kay Jones [facility] Unavailable Unavailable Susannah Blankenship [facility] Unavailable [phone] Carolyn Huynh [facility] Unavailable [phone] Vika Kevin APRN MANAGER SCIENCE Unavailable + Marilyn Willard MD Unavailable [phone] Carie Varela DO Unavailable [phone] Maylin May NP Unavailable [phone] Marisa Rodrigues RN Unavailable Unavailable Vilma Long MD Unavailable + [phone] Yasmeen Pendleton [facility] Unavailable + [phone] Cole George Unavailable Fletcher Russell Unavailable Unavailable Bautista MD Unavailable Jasmyn Oliver [facility] Unavailable [phone] Vika Kevin APRN [facility] Primary Care Prov ider Vika Kevin APRN [facility] Primary Care Prov ider Yasmeen Pendleton [facility] Unavailable + [phone] [facility] Primary Care Prov ider Encounter Details Date Type Department Care Team (Late st Contact Info) Description 09/16/2013 Office Visit-[facility] Heart [address] [place] [address] Reji Davis MD [address] [place] [address] Social History Tobacco Use Types [...] Created by: Reji Davis MD DATE: 09/16/2013 MARIALUISA COSBY DATE OF : 1940 AGE: [age] years old Referring Physician: CORTEZ LU Referring Clinic: [facility] CURRENT DIAGNOSES 1. Diabetes Sonqidax-Kho-Qapmxli Dependent, 250.00 2. - Hyperlipidemia mixed, 272.2 [...] daily 12. Nasacort AQ 55 mcg Aerosol, [place], Take as Directed 13. Plavix 75 mg [...] mid circumflex artery in December,, while at [facility] in [place], [place]. This was following a presentation for a lfn-XJ-adhrzzf elevation [place]. Since I saw the patient last she was seen in the [facility] ER with overall generalized weakness and felt to be potentially dehydrated in the setting of an infection. She has otherwise done well from a cardiovascular standpoint and has had no recurrent episodes of fatigue. She has had no recurrent anginal symptoms, which are chest discomfort and chest heaviness. Marialuisa plans to travel back to [place] for three months after the holidays. She has questions as to whether she can exercise given her coronary artery disease. Finally, I talked to Marialuisa about this previously, that her field research assistant in [place] had recommended that she remain on lifelong Plavix. She seems somewhat adamant about continuing this recommendation. PAST HISTORY Past Medical Illnesses: asthma, HTN, hypothyoidism, diabetes, hyperlipidemia, major depression, anxiety, hypertension, Restless Leg syndrome Past Cardiac Illnesses: CAD, s/p [place] Surgeries/Procedures - General: hysterectomy Cardiac/Vasc Procedures-Invasive: left heart cath 12/2012 ([place]) Cardiology Procedures-NonInvasive: echocardiogram Jun 2007, myocardial perfusion (Nuc) Jun 2007, echo 12/2012 ([place]), stress echo February 2013 Cardiac Cath Results: 12/2012 [facility] NELIA to the mid and prox [...] [place] for 3 months; Place of - [place]; REVIEW OF SYSTEMS GENERAL frequent uti's otherwise [...] [place] but they can get bad in [place] too PHYSICAL EXAMINATION VITAL SIGNS: Blood Pressure: [...] left circumflex artery following presentation for a sdu-IA-xkgdxvz elevation [place]. 3. 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 documented as of this encounter Care Teams Svp Digital Ad Sales Relationship Specialty Start Date End Date Cortez Lu MD XXX RETIRED XXX [address] [place] [phone] PCP - General 12/10/01 01/10/14 Niko Resendiz MD [address] [place] [address] 41874 PCP - General Internal Medicine 01/11/14 01/29/14 Carlie Mac MD [address] [place] [address] PCP - General Pediatrics 01/30/14 07/17/15 Angella Mendieta MD [address] [place] [address] 116242 PCP - General Family Practice 07/18/15 09/11/15 Julito Banuelos MD [address] [place] [address] 835392 PCP - General Family Practice 09/12/15 09/23/21 Julito Banuelos MD [address] [place] [address] 315502 PCP - Assigned PCP 02/17/16 12/28/18 Vika Kevin APRN MANAGER SCIENCE [address] [place] [address] PCP - General Nurse Practitioner - Family 09/24/21 03/05/22 Vika Kevin APRN MANAGER SCIENCE [address] [place] [address] 18487 PCP - General Nurse Practitioner - Family 03/18/22 06/18/22 Vika Kevin APRN MANAGER SCIENCE [address] [place] [address] 293702 PCP - General Nurse Practitioner - Family 07/24/22 Julito Banuelos MD [address] [place] [address] 551702 Assigned PCP 02/17/16 07/21/[address] [place] [address] Fryer Line Helper Dietitian, Registered 04/14/19 Mary Kay Jones, [facility] Pharmacist 08/01/19 04/20/20 [facility] [address] [place] [address] 8[address] [place], [place] 517855 Pharmacist Pharmacist 08/08/19 04/15/21 Carolyn Huynh [facility] [address] [place] [address] Pharmacist Pharmacist 06/25/20 04/15/21 Vika Kevin APRN CNP [address] [place] [address] [id number] Assigned PCP 07/22/20 11/16/24 Marilyn Willard MD [address] [place] [address] [address] [place], [place] 305885 Assigned Surgical Provider 08/17/20 08/16/24 Carie Varela DO [address] [place] [address] Assigned Heart and Vascular Provider 08/17/20 01/19/21 Maylin May NP [address] [place] [address] Assigned Pediatric Specialist Provider 12/16/20 06/13/22 Marisa Rodrigues, RN Clinic Instrument Processing Tech 01/15/21 02/26/21 Vilma Long MD [address] [place] [address] Assigned Heart and Vascular Provider 01/20/21 07/20/21 [facility] [address] [place], [place] [address] Pharmacist Pharmacist 06/04/21 01/15/22 Cole George LISW Lead Instrument Processing Tech 06/13/21 10/07/21 Fletcher Up Community Health Worker 06/13/21 09/12/21 Bautista Casey MD [address] [place] [address] Assigned Heart and Vascular Provider 07/21/21 01/16/23 Jasmyn Oliver CHW Community Health Worker 09/13/21 10/07/21 [facility] [address] [place] [address] Assigned MTM Pharmacist 03/22/22 01/02/23 documented as of this encounter
--- OUTSIDE RECORDS SUMMARY | 2024-12-16 22:58 | XMS_ITS | Encounter Summary ---
Author Organization [place] Address [address] [facility] [place] [address] Care Team Providers Care Filament Tester Name Role Phone Julito Banuelos MD Primary Care Provider [phone] Unavailable Unavailable Susannah Blankenship [facility] Unavailable [phone] Carolyn Huynh [facility] Unavailable [phone] Vika Kevin APRN [facility] Unavailable + Marilyn Willard MD Unavailable [phone] Carie Varela DO Unavailable [phone] Maylin May NP Unavailable [phone] Marisa Hernandez RN Unavailable Unavailable Vilma Long MD Unavailable + [phone] Yasmeen Pendleton [facility] Unavailable Cole George Unavailable Fletcher Russell Unavailable Unavailable Bautista Casey MD Unavailable [phone] Jasmyn Oliver Unavailable [phone] Vika Kevin APRN [facility] Primary Care Prov ider Vika Kevin APRN [facility] Primary Care Prov ider Yasmeen Pendleton [facility] Unavailable + [phone] Vika Kevin SALES INCENTIVE ANALYST [facility] Primary Care Prov ider Reason for Visit * Reason Onset Date Comments Pending Orders/need approval 10/31/2020 req uesting homecare orders. Encounter Details Date Type Department Care Team (Late st Contact Info) Description 10/31/[address] [phone] Julito Banuelos MD [address] [place] [address] Pending Orders/need approval (requesting homecare orders.) [...] on file Legal 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 FLAP MAKER Gender Identity Not on file Sexual Orientation Not on file Occupation Industry Job Start Date Job End Date Not on file Not on file Not on file Not on file COVID-19 Exposure Response Date Recorded In the last month, have you been in contact with someone who was confirmed or suspected to have Coronavirus / COVID-19? No / Unsure 10/23/2020 11:41 AM FLAP MAKER documented as of this encounter Miscellaneous Notes * Telephone Encounter - Julito Banuelos MD - 10/31/2020 5:42 PM CST Images from the original note were not included. Reviewed, would advise patient complete whatever advised Julito Banuelos MD, FAAFP [facility] [address] [place] [phone] [email or web address] Office: Pager: MAKER * Telephone Encounter - Candie Rajput - 10/31/2020 5:18 PM CST [facility] now requests orders and shares plan of care/discharge summaries for some patients through [facility]. Please REPLY TO THIS MESSAGE OR ROUTE BACK TO THE AUTHOR in order to give authorization for orders when needed. This is considered a verbal order, you will stillreceive a faxed copy of orders for signature. Thank you for your assistance in improving collaboration for our patients. ORDER The pt did not want any further Nursing,OT,DESIGN TECHNOLOGY PROFESSOR or SW at this time SOC PT eval and treat x 1 for gait,strength,endurance,fall risk prevention,transfers,saftey Thank you for the referral Candie Rajput RN [phone] Cell. MAKER documented in this encounter Plan of Treatment Not on file documented as of this encounter Visit Diagnoses Not on filedocumented in this encounter Additional Health Concerns Infection Onset Date Last Indicated Resolved Time Rule Out COVID-19 12/04/2020 12/04/2020 12/05/2020 6:04 PM FLAP MAKER Assessment Noted Time PHQ-9 Depression Total Score: 10 020 9:30 AM FLAP MAKER documented as of this encounter Care Teams Filament Tester Relationship Specialty Start Date End Date Julito Banuelos MD [address] [place] [address] PCP - General Family Practice 09/12/15 09/23/21 Vika Kevin APRN [employer] GRINDER [address] [place] [address] PCP - General Nurse Practitioner - Family 09/24/21 03/05/22 Vika Kevin APRN [employer]IND[employer] [address] [place] [address] PCP - General Nurse Practitioner - Family 03/18/22 06/18/22 Vika Kevin APRN SA[employer] GRINDER [address] [place] [address] [phone] PCP - General Nurse Practitioner - Family 07/24/22 Aleshia Henriquez, DAVE [address] [place] [address] Railway Dietitian, Registered 04/14/19 Susannah Blankenship, [facility] [address] [place] [address] [address] [place], [place] [phone] Pharmacist Pharmacist 08/08/19 04/15/21 Carolyn Huynh [facility] [address] [place] [address] Pharmacist Pharmacist 06/25/20 04/15/21 Vika Kevin, JAIME SA[employer] GRINDER [address] [place] [address] Assigned PCP 07/22/20 11/16/24 Marilyn Willard MD [address] [place] [address] [address] [place], [place] 885815 Assigned Surgical Provider 08/17/20 08/16/24 Carie Varela DO [address] [place] [address] Assigned Heart and Vascular Provider 08/17/20 01/19/21 Maylin May NP [address] [place] [address] Assigned Pediatric Specialist Provider 12/16/20 06/13/22 Marisa Rodrigues, RN Clinic Life Insurance Sales Agent 01/15/21 02/26/21 Vilma Long MD [address] [place] [address] Assigned Heart and Vascular Provider 01/20/21 07/20/21 [facility] [address] [place] [address] [phone] Pharmacist Pharmacist 06/04/21 01/15/22 Cole George LISW Lead Life Insurance Sales Agent 06/13/21 10/07/21 Fletcher Up Community Health Worker 06/13/21 09/12/21 Bautista Casey MD [address] [place] [address] Assigned Heart and Vascular Provider 07/21/21 01/16/23 Jasmyn Oliver CHW Community Health Worker 09/13/21 10/07/21 [facility] [address] [place] [address] Assigned MTM Pharmacist 03/22/22 01/02/23 documented as of this encounter
--- OUTSIDE RECORDS SUMMARY | 2024-12-16 22:58 | XMS_ITS | Encounter Summary ---
Author Organization [employer] Address [address] [facility] [place] [address] Care Team Providers Care Tool Analyst Name Role Phone Niko Resendiz MD Primary Care Provider Carlie Mac MD Primary Care Provide r Angella Mendieta MD Primary Care Provider Julito Banuelos MD Primary Care Provider Julito Banuelos MD Unavailable Julito Banuelos MD Unavailable Aleshia Henriquez RD Unavailable Unavailable Mary Kay Jones RP Unavailable Unavailable Susannah Blankenship [facility] Unavailable [phone] Carolyn Huynh [facility] Unavailable [phone] Vika Kevin SALES ORDER SPECIALIST DIRECTOR OF GUIDANCE Unavailable + Marilyn Willard MD Unavailable [phone] Carie Varela DO Unavailable [phone] Maylin May NP Unavailable [phone] Marisa Hernandez RN Unavailable Unavailable Vilma Long MD Unavailable + [phone] Yasmeen Pendleton [facility] Unavailable Cole George Unavailable Unavai jonathan Up Fletcher Unavailable Unavailable Ip, Bautista Bell MD Unavailable [phone] TatyanaJasmyn anand W Unavailable [phone] Vika Kevin SALES ORDER SPECIALIST [facility] Primary Care Prov ider Vika Kevin [facility] Primary Care Prov ider Yasmeen Pendleton [facility] Unavailable + [phone] Vika Kevin [facility] Primary Care Prov ider Reason for Visit * Reason Onset Date Comments Medication Question 01/28/2014 Update Encounter Details Date Type Department Care Team (Late st Contact Info) Description 01/28/2014 [facility] Medical Advice [address] [address] Carlie Mac MD [address] [place] [address] Medication Question (Update ) Social [...] on file Legal 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 Gender Identity Not on file Sexual [...] Out COVID-19 12/04/2020 12/04/2020 12/05/2020 6:04 PM 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 documented as of this encounter Care Teams Tool Analyst Relationship Specialty Start Date End Date Niko Resendiz MD [address] [place] [address] PCP - General Internal Medicine 01/11/14 01/29/14 Carlie Mac MD [address] [place] [address] PCP - General Pediatrics 01/30/14 07/17/15 Angella Mendieta MD [address] [place] [address] PCP - General Family Practice 07/18/15 09/11/15 Julito Banuelos MD [address] [place] [address] PCP - General Family Practice 09/12/15 09/23/21 Julito Banuelos MD [address] [place] [address] PCP - Assigned PCP 02/17/16 12/28/18 Vika Kevin APRN DIRECTOR OF GUIDANCE [address] [place] [address] PCP - General Nurse Practitioner - Family 09/24/21 03/05/22 Vika Kevin APRN DIRECTOR OF GUIDANCE [address] [place] [address] PCP - General Nurse Practitioner - Family 03/18/22 06/18/22 Vika Kevin APRN DIRECTOR OF GUIDANCE [address] [place] [address] PCP - General Nurse Practitioner - Family 07/24/22 Julito Banuelos MD [address] [place] [address] [phone] Assigned PCP 02/17/16 07/21/[address] [place] [address] Specimen Transporter Dietitian, Registered 04/14/19 Mary Kay Jones, [facility] Pharmacist 08/01/19 04/20/20 Susannah Blankenship [facility] [address] [facility] [address] [place], [place] [address] Pharmacist Pharmacist 08/08/19 04/15/21 Carolyn Huynh, [facility] [address] [place], [place] [phone] Pharmacist Pharmacist 06/25/20 04/15/21 Vika Kevin, JAIME DIRECTOR OF GUIDANCE [address] [place] [address] [phone] Assigned PCP 07/22/20 11/16/24 Marilyn Willard MD [address] [facility] [address] [place], [place] 2264[address] Assigned Surgical Provider 08/17/20 08/16/24 Carie Varela DO [address] [place] [address] Assigned Heart and Vascular Provider 08/17/20 01/19/21 Maylin May NP [address] [place] [address] Assigned Pediatric Specialist Provider 12/16/20 06/13/22 Marisa Rodrigues, RN Clinic Tilting Head Band Sawyer 01/15/21 02/26/21 Vilma Long MD [address] [place] [address] Assigned Heart and Vascular Provider 01/20/21 07/20/21 [facility] [address] [place] [address] Pharmacist Pharmacist 06/04/21 01/15/22 Cole George LISW Lead Tilting Head Band Sawyer 06/13/21 10/07/21 Fletcher Up Community Health Worker 06/13/21 09/12/21 Bautista Casey MD [address] [place] [address] Assigned Heart and Vascular Provider 07/21/21 01/16/23 Jasmyn Oilver CHW Community Health Worker 09/13/21 10/07/21 [facility] [address] [place] [address] Assigned MTM Pharmacist 03/22/22 01/02/23 documented as of this encounter
--- OUTSIDE RECORDS SUMMARY | 2024-12-16 22:58 | XMS_ITS | Clinical Summary ---
Author Organization [employer] Address [address] 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,Type 2 diabetes mellitus [...] 24 hr tabletIndication s:Coronary artery disease 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 Take 1 tablet [...] 20 MG tabletIndication s: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 on file Not on file Last Filed Vital Signs Vital Sign Reading Time Taken Comments Blood Pressure 126/62 09/25/2021 12:08 PM PRODUCT SAFETY EXPERT Pulse 102 09/25/2021 12:08 PM PRODUCT SAFETY EXPERT Temperature 36.8 C (98.2 F) 09/25/2021 12:08 PM PRODUCT SAFETY EXPERT Respiratory Rate 16 06/19/2021 3:30 PM CDT Oxygen Saturation 94% 09/25/2021 12:08 PM PRODUCT SAFETY EXPERT Inhaled Oxygen Concentration - - Weight 81.6 [...] (Cologuard) Discontinued Medical Devices Implanted Type Area Vp Delivery Device Identifier Shelf Expiration Date Model / Serial / Lot Imp Plate Syn 1/3 Tubular 85mm 07h Ss 241.37 Implanted:Qty : 1 on 01/12/2021 by Rom Martell MD at [facility] Metallic Hardware/Anc hor Right: Ankle SYNTHES-STRATEC 241.37 / / [id number] Imp Scr Syn Cortex 3.5x16mm Self Tap Ss 204.816 Implanted:Qty : 3 on 01/12/2021 by Rom Martell MD at [facility] Metallic Hardware/Anc hor Right: Ankle SYNTHES-STRATEC 204.816 / / [id number] Imp Scr Syn Can 4.0x14mm Ft Ss 206.014 Implanted:Qty : 1 on 01/12/2021 by Rom Martell MD at [facility] Metallic Hardware/Anc hor Right: Ankle SYNTHES-STRATEC 206.014 / / [id number] Imp Scr Syn Can 4.0x16mm Ft Ss 206.016 Implanted:Qty : 2 on 01/12/2021 by Rom Martell MD at [facility] Metallic Hardware/Anc hor Right: Ankle SYNTHES-STRATEC 206.016 / / [id number] Imp Scr Syn Can 4.0x50mm Ft Ss 206.050 Implanted:Qty : 1 on 01/12/2021 by Rom Martell MD at [facility] Metallic Hardware/Anc hor Right: Ankle SYNTHES-STRATEC 206.050 / / [id number] Procedures Procedure Name Priority Date/Time Associated Diagnosis Comments UA MACROSCOPIC WITH REFLEX TO MICRO AND CULTURE Routine 09/23/2021 3:09 PM PRODUCT SAFETY EXPERT Urinary tract infection Corona catheter in place [...] RANDOM URINE QUANTITATIVE Routine 08/28/2020 3:27 PM PRODUCT SAFETY EXPERT Hypertension goal BP (blood pressure) < 140/90 [...] DEXA - HIM SCAN 11/02/2015 12:00 AM PRODUCT SAFETY EXPERT EYE EXAM - HIM SCAN Routine 09/25/2014 HC SPIROMETRY, BREATH CAPACITY Routine 03/13/2011 ASTHMA - MODERATE PERSISTENT from Last 3 Months or Most Recently Relevant to Health Maintenance Results * (ABNORMAL) UA reflex to Microscopic and Culture (09/23/2021 3:09 PM PRODUCT SAFETY EXPERT) Color Urine Yellow Colorless, Straw, Light Yellow, Yellow 09/23/2021 3:13 PM PRODUCT SAFETY EXPERT [facility] Appearance Urine Clear Clear 09/23/20 3:13 PM PRODUCT SAFETY EXPERT [facility] Glucose Urine Negative Negative mg/dL 09/23/2021 3:13 PM PRODUCT SAFETY EXPERT [facility] Bilirubin Urine Negative Negative 3:13 PM PRODUCT SAFETY EXPERT [facility] Ketones Urine Negative Negative mg/dL 09/23/2021 3:13 PM PRODUCT SAFETY EXPERT [facility] Specific [place] Urine 1.020 1.003 - 1.035 09/23/2021 3:13 PM PRODUCT SAFETY EXPERT [facility] Blood Urine Trace(A) Negative 09/23/2021 3:13 PM PRODUCT SAFETY EXPERT [facility] pH Urine 6.0 5.0 - 7.0 09/23/2021 3:13 PM PRODUCT SAFETY EXPERT [facility] Protein Albumin Urine 30(A) Negative mg/dL 09/23/2021 3:13 PM PRODUCT SAFETY EXPERT [facility] Urobilinogen Urine 0.2 0.2, 1.0 E.U./dL 09/23/2021 3:13 PM PRODUCT SAFETY EXPERT [facility] Nitrite Urine Positive(A) Negative 09/23/2021 3:13 PM PRODUCT SAFETY EXPERT [facility] Leukocyte Esterase Urine Moderate(A) Negative 09/23/2021 3:13 PM PRODUCT SAFETY EXPERT [facility] Urine URINE SPECIMEN OBTAINED VIA INDWELLING URINARY CATHETER / Unknown Non-blood Collection / Unknown 09/23/2021 3:09 PM PRODUCT SAFETY EXPERT 09/23/2021 3:09 PM PRODUCT SAFETY EXPERT us Julito Banuelos MD LAB - URINE ORDERABLES Final Res ult [facility]AT[facility] [address] [place] [address] [facility], 1st floor of clinic) [place] [phone], [facility] [phone] * (ABNORMAL) Comprehensive metabolic panel (BMP + [...] CDT 07/12/2021 9:45 AM CDT Vika Kevin FARMWORKER DAIRY DIRECTOR OF MATH LAB - BLOOD ORDERA BLES Final Result LABORATORY [facility] [address] Lab (no room number, 1st floor of clinic) [place] [address], [facility] [phone] * TSH with free T4 reflex (04/26/2021 12:18 PM CDT) TSH 1.56 0.40 - 4.00 mU/L 04/28/2021 10:[address] [facility] Blood 04/26/2021 12:1 8 PM CDT 04/26/2021 12:19 PM CDT us Vika Kevin APRN, CNP LAB - BLOOD ORDERA BLES Final Result Performing Organization Address City/[facility]/ZIP Co de Phone Number [facility] [address] [place] [phone] * Hemoglobin A1c (04/26/2021 12:18 PM CDT) Hemoglobin A1C 5.5 0 - 5.6 % 04/26/2021 12:54 PM CDT [facility] Comment: Normal <5.7% Prediabetes 5.7-6.4% Diabetes 6.5% or higher - adopted from ADA consensus guidelines. Blood 04/26/2021 12:1 8 PM CDT 04/26/2021 12:19 PM CDT us Vika Kevin APRN DIRECTOR OF MATH LAB - BLOOD ORDERA BLES Final Result Performing Organization Address [facility] Co de Phone Number [address] [address] * (ABNORMAL) Albumin Random Urine Quantitative with Creat Ratio (08/28/2020 3:27 PM PRODUCT SAFETY EXPERT) Creatinine Urine 121 mg/dL 08/29/2020 5:22 [address] [facility] Albumin Urine mg/L 121 mg/L 08/29/2020 6:46 PM PRODUCT SAFETY EXPERT [facility] Albumin Urine mg/g Cr 100.00(H) 0 - 25 mg/g Cr 08/29/2020 6:46 PM [address] S[address]ETY EXPERT [facility] Urine specimen (specimen) 08/28/2020 3:27 PM PRODUCT SAFETY EXPERT 08/28/2020 3:28 PM PRODUCT SAFETY EXPERT us Vika Kevin APRN, CNP LAB - URINE ORDERA BLES Final Result Performing Organization Address City/[facility]/ZIP Co de Phone Number [facility] [address] [place] [address] * (ABNORMAL) Lipid panel reflex to direct LDL Fasting (07/20/2020 11:48 AM CDT) Cholesterol 103 <200 mg/dL 07/20/2020 6:[address] [facility] Triglycerides 118 <150 mg/dL 07/20/2020 6:[address] [facility] HDL Cholesterol 41(L) >49 mg/dL 0 6:[address] [facility] LDL Cholesterol Calculated 38 <100 mg/dL 07/20/2020 6:[address] [facility] Comment:Desirable: <100 mg/ dl Non HDL Cholesterol 62 <130 mg/dL 07/20/2020 6:[address] [facility] Blood specimen (specimen) 07/20/2020 11:48 AM CDT 07/20/2020 11:50 AM CDT us Braeden Sow MD LAB - BLOOD ORDERABLES Final Result [facility] [address] [place] [address] * MA Diagnostic Right w/Jefry (04/15/2018 9:55 [...] Mammography. SHAILESH NICHOLAS MD Julito Banuelos MD [facility] MAMMOGRAPHY ORDERABLES Final Result * Foot Exam - HIM Scan (02/25/2018) Narrative Steff Fernandes - 02/25/2018 SEE PROGRESS NOTE PINNACLE FOOT AND ANKLE us Provider Outside OTHER Final Result * COLONOSCOPY (05/02/2016 7:39 AM CDT) Pathologist [facility] Patient Name: Marialuisa Cosby Procedure Date: 05/02/2016 7:39 AM Date of : 1940 Admit Type: Outpatient Age: 76 Gender: Female Attending MD: Wicho Preston MD Instrument Name: 137 Procedure: Colonoscopy Indications: Heme positive stool Providers: Wicho Preston MD, Emilie Vivar, RN (Nurse) Referring MD: Julito Banuelos MD [...] oxygen saturations were monitored continuously. The [id number] was introduced through the anus and advanced [...] pathology results. Procedure Code(s): --- Professional --- 80116, Colonoscopy, flexible, proximal to splenic flexure; with removal of tumor(s), polyp(s), or other lesion(s) by snare technique 32757, Colonoscopy, flexible, proximal to splenic flexure; with directed submucosal injection(s), any substance CPT copyright 2013 [employer]. All rights reserved. The codes documented in this report are preliminary and upon business quality assurance analyst review may be revised to meet current [...] Occult Blood Scn FIT Positive(A ) NEG [facility] Stool specimen (specimen) 04/16/2016 04/19/2016 12:54 PM CDT Julito Banuelos MD LAB - STOOLS ORDERABLES Final Re sult [facility] [address] [place] [address] * DEXA - HIM SCAN (11/02/2015 12:00 AM PRODUCT SAFETY EXPERT) Anatomical Region Laterality Modality Other 11/02/2015 us Provider Outside IMG DEXA ORDERABLES Final Resul t * Eye Exam - HIM Scan (09/25/2014) Narrative Dora De León - 09/25/2014 for eye exam, had it done 09/2014 at [facility] [place] us Patient Reported OTHER Final Result * Spirometry, Breath Capacity (03/13/2011) us Andrew Lu MD PROCEDURES Final Result from Last 3 Months or Most Recently Relevant to Health Maintenance Insurance [employer] * Guarantor: Marialuisa Cosby Account Type Relation to Patient Date of Phone Billing Address Medication Therapy Self [address] [place] [address] BCBS MEDICARE ADVANTAGE [employer] Advance Directives For more information, please contact: [phone] * Full Code (Latest Code Status on File) Date Activated Date Inactivated Comments 01/12/2021 6:18 PM 01/15/2021 1:26 PM All basic an d advanced life-sustaining interventions are performed as appropriate [...] 4:58 AM 07/03/2014 1:24 PM Care Teams Tape Sewer Relationship Specialty Start Date End Date Vika Kevin APRN CNP [address] [place] [address] PCP - General Nurse Practitioner - Family 07/24/[address] Map Plotter Dietitian, Registered 04/14/19
--- OUTSIDE RECORDS SUMMARY | 2024-12-16 22:58 | XMS_ITS | Encounter Summary ---
Author Organization [place] Address [address] [facility] [place] [address] Care Team Providers Care Process Control Specialist Name Role Phone Cortez Lu MD Primary Care Provider [phone] Niko Resendiz MD Primary Care Provider Carlie Mac MD Primary Care Provide r Angella Mendieta MD Primary Care Provider Julito Banuelos MD Primary Care Provider [phone] Julito Banuelos MD Unavailable Julito Banuelos MD Unavailable Aleshia Henriquez RD Unavailable Unavailable Mary Kay Jones [facility] Unavailable Unavailable Susannah Blankenship [facility] Unavailable [phone] [facility] Unavailable +[phone] Vika Kevin APRN TEST BORING CREW CHIEF Unavailable + Marilyn Willard MD Unavailable [phone] Carie Varela DO Unavailable +[phone] Maylin May NP Unavailable [phone] Marisa Rodrigues RN Unavailable Unavailable Vilma Long MD Unavailable + [phone] [address] [facility] Unavailable + [phone] Cole George Unavailable Fletcher Russell Unavailable Unavailable Bautista Casey MD Unavailable +[phone] TatyanaJasmyn anand [facility] Unavailable [phone] Vika Kevin APRN [facility] Primary Care Prov ider Vika Kevin APRN [facility] Primary Care Prov ider Yasmeen Penldeton [facility] Unavailable + [phone] Vika Kevin [facility] Primary Care Prov ider Encounter Details Date Type Department Care Team (Late st Contact Info) Description 12/01/2013 Office Visit-[facility] [address] [facility] [address] [place] [address] Cristy Hanna, JAIME [facility] XXX RESIGNED XXX [address] [facility] [address] [place] [id number] Social History Tobacco Use Types Packs/Day Years Used Date Smoking Tobacco: Former Cigarettes 0.3 15 0 10/26/1961 - 10/26/1976 Smokeless Tobacco: Never Alcohol Use Standard Drinks/Week Comments Yes 0 (1 standard drink = 0.6 oz pur e alcohol) 1-2 glasses of wine weekly Comments No Sex and Gender Information Value Date Recorded Sex Assigned at Not on file Legal 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 INVENTORY TECHNICIAN Gender Identity Not on file Sexual [...] old Referring Physician: CORTEZ LU Referring Clinic: [facility] CURRENT DIAGNOSES 1. Diabetes Wfzuszhr-Ukn-Dyohodz Dependent, 250.00 2. - Hyperlipidemia mixed, 272.2 [...] daily 10. Nasacort AQ 55 mcg Aerosol, [place], Take as Directed 11. Plavix 75 mg [...] the pleasure of seeing Marialuisa Cosby in [facility]. She is a 73-year-old white female with a history of coronary artery disease, hypertension, diabetes, dyslipidemia, and asthma who is here today to reevaluate her palpitations. Her cardiovascular history includes hypertension, diabetes, and dyslipidemia. In December,, whilevisiting in [place] she had a pmf-IP-izsggbrgv myocardial infarction and underwent an angiogram with PCI to the proximal and mid circumflex. LV function has been normal by echocardiogram. Apparently the solderer electronic in [place] recommended lifelong Plavix. She was seen by [...] tonsillectomy Cardiac/Vasc Procedures-Invasive: left heart cath 12/2012 ([place]) Cardiology Procedures-NonInvasive: echocardiogram Jun 2007, myocardial perfusion (Nuc) Jun 2007, echo 12/2012 ([place]), stress echo February 2013 Cardiac Cath Results: 12/2012 [place] Resolute NELIA to the mid and prox [...] - lives with ; Place of - [place]; REVIEW OF SYSTEMS GENERAL fatigue, feels spacey [...] Weight- 215.00 lbs. Height- 67 BMI Measurement: Atlas5D Error: [Lung [employer]][Ravel Law SQL Medical Staff Physician Branch Rental Manager][SQL Medical Staff Physician]Divide by zero error encountered. - 11897 CONSTITUTIONAL well developed, well nourished, in no [...] 2. Coronary artery disease. She had a vdn-IK-rpgxefbxl myocardial infarction in December and remains on [...] Out COVID-19 12/04/2020 12/04/2020 12/05/2020 6:04 PM INVENTORY TECHNICIAN documented as of this encounter Care Teams Process Control Specialist Relationship Specialty Start Date End Date Cortez Lu MD XXX RETIRED XXX [address] [place] [id number] PCP - General 12/10/01 01/10/14 Niko Resendiz MD [address] [place] [address] PCP - General Internal Medicine 01/11/14 01/29/14 Carlie Mac MD [address] [place] [address] PCP - General Pediatrics 01/30/14 07/17/15 Angella Mendieta MD [address] [place] [address] PCP - General Family Practice 07/18/15 09/11/15 Julito Banuelos MD [address] [place] [address] PCP - General Family Practice 09/12/15 09/23/21 Julito Banuelos MD [address] [place] [address] PCP - Assigned PCP 02/17/16 12/28/18 Vika Kevin APRN TEST BORING CREW CHIEF [address] [place] [address] PCP - General Nurse Practitioner - Family 09/24/21 03/05/22 Vika Kevin APRN TEST BORING CREW CHIEF [address] [place] [address]342 PCP - General Nurse Practitioner - Family 03/18/22 06/18/22 Vika Kevin APRN TEST BORING CREW CHIEF [address] [place] [address]397 PCP - General Nurse Practitioner - Family 07/24/22 Julito Banuelos MD [address] [place] [address] Assigned PCP 02/17/16 07/21/[address] [place] [address] Telehealth Director Dietitian, Registered 04/14/[address] [facility] Pharmacist 08/01/19 04/20/[address] [facility] [address] [place] [address] [address] [place] [address] Pharmacist Pharmacist 08/08/19 04/15/21 Carolyn Huynh, [facility] [address] [place] [address] Pharmacist Pharmacist 06/25/20 04/15/21 Vika Kevin, CROP NUTRITION SCIENTIST TEST BORING CREW CHIEF [address] [place], [place] [address]472 Assigned PCP 07/22/20 11/16/24 Marilyn Willard MD [address] [facility] [address] [place] [address] Assigned Surgical Provider 08/17/20 08/16/24 Carie Varela DO [address] [place] [address] Assigned Heart and Vascular Provider 08/17/20 01/19/21 Maylin May NP [address] [place], [place] [id number] Assigned Pediatric Specialist Provider 12/16/20 06/13/22 Marisa Rodrigues, RN Clinic Steamboat Captain 01/15/21 02/26/21 Vilma Long MD [address] [place] [address] Assigned Heart and Vascular Provider 01/20/21 07/20/[address] [facility] [address] [place] [address] Pharmacist Pharmacist 06/04/21 01/15/22 Cole George LISW Lead Steamboat Captain 06/13/21 10/07/21 Fletcher Up Community Health Worker 06/13/21 09/12/21 Bautista Casey MD [address] [place] [address] Assigned Heart and Vascular Provider 07/21/21 01/16/23 Jasmyn Oliver CHW Community Health Worker 09/13/21 10/07/21 Yasmeen Pendleton, [facility] [address] [place], [place] [address] Assigned MTM Pharmacist 03/22/22 01/02/23 documented as of this encounter
--- OUTSIDE RECORDS SUMMARY | 2024-12-16 22:58 | XMS_ITS | Encounter Summary ---
Author Organization [place] Address [address] [facility] [place] [address] Care Team Providers Care Software Validation Engineer Name Role Phone Andrew Lu MD Primary Care Provider [phone] Niko Resendiz MD Primary Care Provider Carlie Mac MD Primary Care Provide r Angella Mendieta MD Primary Care Provider Julito Banuelos MD Primary Care Provider [phone] Julito Banuelos MD Unavailable Julito Banuelos MD Unavailable Aleshia Henriquez RD Unavailable Unavailable Mary Kay Jones [facility] Unavailable Unavailable Susannah Blankenship [facility] Unavailable [phone] Carolyn Huynh [facility] Unavailable [phone] Vika Kevin APRN WATERWORKS PUMP STATION OPERATOR Unavailable + Marilyn Willard MD Unavailable [phone] Carie Varela DO Unavailable [phone] Maylin May NP Unavailable [phone] Marisa Rodrigues RN Unavailable Unavailable Vilma Long MD Unavailable + [phone] Yasmeen Pendleton [facility] Unavailable + [phone] Cole George Unavailable Fletcher Russell Unavailable Unavailable Bautista Casey MD Unavailable [phone] AnnyJasmyn tracey [facility] Unavailable [phone] Vika Kevin APRN [facility] Primary Care Prov ider Vika Kevin APRN [facility] Primary Care Prov ider Yasmeen Pendleton [facility] Unavailable + [phone] [facility] Primary Care Prov ider Encounter Details Date Type Department Care Team (Late st Contact Info) Description 01/10/2014 MyC Medical Adv[facility] - Primary Care [address] [place] [phone] Emilie Dolan MD Social History Tobacco Use [...] on file Legal 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 SALES REPRESENTATIVE HEALTH INSURANCE Gender Identity Not on file Sexual Orientation [...] Out COVID-19 12/04/2020 12/04/2020 12/05/2020 6:04 PM SALES REPRESENTATIVE HEALTH INSURANCE documented as of this encounter Care Teams Software Validation Engineer Relationship Specialty Start Date End Date Andrew Lu MD XXX RETIRED XXX [address] [place] [address] PCP - General 12/10/01 01/10/14 Niko Resendiz MD [address] [place] [address] PCP - General Internal Medicine 01/11/14 01/29/14 Carlie Mac MD [address] [place] [address] PCP - General Pediatrics 01/30/14 07/17/15 Angella Mendieta MD [address] [place] [address] PCP - General Family Practice 07/18/15 09/11/15 Julito Banuelos MD [address] [place] [address] PCP - General Family Practice 09/12/15 09/23/21 Julito Banuelos MD [address] [place] [address]856 PCP - Assigned PCP 02/17/16 12/28/18 Vika Kevin APRN WATERWORKS PUMP STATION OPERATOR [address] [place] [address]492 PCP - General Nurse Practitioner - Family 09/24/21 03/05/22 Vika Kevin APRN WATERWORKS PUMP STATION OPERATOR [address] [place] [address] 11560 PCP - General Nurse Practitioner - Family 03/18/22 06/18/22 Vika Kevin APRN WATERWORKS PUMP STATION OPERATOR [address] [place] [address] [id number] PCP - General Nurse Practitioner - Family 07/24/22 Julito Banuelos MD [address] [place] [address] 162572 Assigned PCP 02/17/16 07/21/[address] [place] [address] Rod Placer Dietitian, Registered 04/14/19 Mary Kay Jones, [facility] Pharmacist 08/01/19 04/20/20 [facility] [address] [place] [address] 8[address] [place], [place] 400775 Pharmacist Pharmacist 08/08/19 04/15/21 [facility] [address] [place], [place] [phone] Pharmacist Pharmacist 06/25/20 04/15/21 Vika Kevin APRN WATERWORKS PUMP STATION OPERATOR [address] [place] [address] [id number] Assigned PCP 07/22/20 11/16/24 Marilyn Willard MD [address] [place] [address] [address] [place] [address] Assigned Surgical Provider 08/17/20 08/16/24 Carie Varela DO [address] [place], [place] 52[address] Assigned Heart and Vascular Provider 08/17/20 01/19/21 Maylin May NP [address] [place] [address] Assigned Pediatric Specialist Provider 12/16/20 06/13/22 Marisa Rodrigues, RN Clinic Ballast Inspector 01/15/21 02/26/21 Vilma Long MD [address] [place] [address] Assigned Heart and Vascular Provider 01/20/21 07/20/21 Yasmeen Pendleton [facility] [address] [place] [address] Pharmacist Pharmacist 06/04/21 01/15/22 Cole George LISW Lead Ballast Inspector 06/13/21 10/07/21 Fletcher Up Community Health Worker 06/13/21 09/12/21 Bautista Casey MD [address] [place] [address] Assigned Heart and Vascular Provider 07/21/21 01/16/23 Jasmyn Oliver CHW Community Health Worker 09/13/21 10/07/21 Yasmeen Pendleton [facility] [address] [place] [address] 212285 Assigned MTM Pharmacist 03/22/22 01/02/23 documented as of this encounter
--- OUTSIDE RECORDS SUMMARY | 2024-12-16 22:58 | XMS_ITS | Encounter Summary ---
Author Organization [place] Address [address] [facility] [place] [address] Care Team Providers Care Size Mixer Name Role Phone Carlie Wang MD Primary Care Provide r Angella Mendieta MD Primary Care Provider Julito Banuelos MD Primary Care Provider [phone] Julito Banuelos MD Unavailable Julito Banuelos MD Unavailable Aleshia Henriquez RD Unavailable Unavailable Mary Kay Jones [facility] Unavailable Unavailable Susannah Blankenship [facility] Unavailable Carolyn Huynh [facility] Unavailable Vika Kevin APRN GAMMA RAY OPERATOR Unavailable + Marilyn Willard MD Unavailable Carie Varela DO Unavailable Maylin May NP Unavailable [phone] Marisa Hernandez RN Unavailable Unavailable Vilma Long MD Unavailable Yasmeen Pendleton [facility] Unavailable Cole George Unavailable Fletcher Russell Unavailable Unavailable Ip, Bautista Bell MD Unavailable [phone] Jasmyn Oliver [facility] Unavailable [phone] Vika Kevin APRN [facility] Primary Care Prov ider Vika Kevin APRN [facility] Primary Care Prov ider Yasmeen Pendleton [facility] Unavailable + [phone] Vika Kevin APRN [facility] Primary Care Prov ider Encounter Details Date Type Department Care Team (Late st Contact Info) Description 03/10/2014 Office Visit-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 [id number] DATE: 03/10/2014 MARIALUISA COSBY DATE OF : 1940 AGE: [age] years old Referring Physician: CARLIE WANG Referring Clinic: [facility] CURRENT DIAGNOSES 1. Diabetes Hotjlwba-Nkh-Vttwkbg Dependent, 250.00 2. - Hyperlipidemia mixed, 272.2 3. - Hypertension, 401.1 4. - CAD, 414.00 5. Palpitations, 785.1 ALLERGIES lisinopril Nitrofurantoin Nitrofurantoin Macrocrystal pramipexole Di-HCl Sulfasalazine tolterodine tartrate zolpidem tartrate MEDICATIONS (prior to changes made today) 1. Asmanex Twisthaler 220 mcg (120 doses) Aerosol Powdr [facility] ActivIn, Take as Directed 2. aspirin, [...] daily 10. Nasacort AQ 55 mcg Aerosol, [place], Take as Directed 11. Plavix 75 mg [...] artery disease having had a non-ST elevation [place] in [place] in December 2012with PCI to the proximal mid circumflex. Apparently the spooler operator recommended lifelong Plavix. She has hypertension, diabetes [...] Leg syndrome Past Cardiac Illnesses: CAD, s/p ND Surgeries/Procedures - General: hysterectomy, tonsillectomy Cardiac/Vasc Procedures-Invasive: left heart cath 12/2012 ([place]) Cardiology Procedures-NonInvasive: echocardiogram Jun 2007, myocardial perfusion (Nuc) Jun 2007, echo 12/2012 ([place]), stress echo February 2013 Cardiac Cath Results: 12/2012 [place] Resolute NELIA to the mid and prox [...] - lives with ; Place of - [place]; REVIEW OF SYSTEMS GENERAL feeling spacey lately [...] Out COVID-19 12/04/2020 12/04/2020 12/05/2020 6:04 PM TON CYLINDER INSPECTOR documented as of this encounter Care Teams Size Mixer Relationship Specialty Start Date End Date Carlie Wang MD [address] [place] [address] PCP - General Pediatrics 01/30/14 07/17/15 Angella Mendieta MD [address] [place] [address] 678172 PCP - General Family Practice 07/18/15 09/11/15 Julito Banuelos MD [address] [place] [address] PCP - General Family Practice 09/12/15 09/23/21 Julito Banuelos MD [address] [place] [address] PCP - Assigned PCP 02/17/16 12/28/18 Vika Kevin APRN GAMMA RAY OPERATOR [address] [place] [address] 907952 PCP - General Nurse Practitioner - Family 09/24/21 03/05/22 Vika Kevin APRN GAMMA RAY OPERATOR [address] [place] [address]01 PCP - General Nurse Practitioner - Family 03/18/22 06/18/22 Vika Kevin APRN GAMMA RAY OPERATOR [address] [place] [address] [phone] PCP - General Nurse Practitioner - Family 07/24/22 Julito Banuelos MD [address] [place] [address] 404712 Assigned PCP 02/17/16 07/21/[address] [place] [address] Housekeeping Room Attendant Dietitian, Registered 04/14/19 Mary Kay Jones, [facility] Pharmacist 08/01/19 04/20/20 Susannah Blankenship, [facility] [address] [place] [address] 8[address] [place], [place] 322745 Pharmacist Pharmacist 08/08/19 04/15/21 Carolyn Huynh [facility] [address] [place], [place] 46[address] Pharmacist Pharmacist 06/25/20 04/15/21 Vika Kevin APRN GAMMA RAY OPERATOR [address] [place] [address] 459482 Assigned PCP 07/22/20 11/16/24 Marilyn Willard MD [address] [address] Assigned Surgical Provider 08/17/20 08/16/24 Carie Varela DO [address] [place] [address] Assigned Heart and Vascular Provider 08/17/20 01/19/21 Maylin May, JENNY [address] [place] [address] Assigned Pediatric Specialist Provider 12/16/20 06/13/22 Marisa Rodrigues, RN Clinic Field Service Representative 01/15/21 02/26/21 Vilma Long MD [address] [place] [address] Assigned Heart and Vascular Provider 01/20/21 07/20/21 Yasmeen Pendleton [facility] [address] [place] [address] 049915 Pharmacist Pharmacist 06/04/21 01/15/22 Cole George LISW Lead Field Service Representative 06/13/21 10/07/21 Fletcher Up Community Health Worker 06/13/21 09/12/21 Bautista Casey MD [address] [place] [address] Assigned Heart and Vascular Provider 07/21/21 01/16/23 Jasmyn Oliver CHW Community Health Worker 09/13/21 10/07/21 Yasmeen Pendleton [facility] [address] [place] [address] Assigned MTM Pharmacist 03/22/22 01/02/23 documented as of this encounter
--- OUTSIDE RECORDS SUMMARY | 2024-12-16 22:58 | XMS_ITS | Encounter Summary ---
Author Organization [place] Address [address] [facility] [address] Care Team Providers Care Exercise Rider Name Role Phone Julito Banuelos MD Primary Care Provider [phone] Julito Banuelos MD Unavailable Aleshai Henriquez RD Unavailable Unavailable Susannah Blankenship [facility] Unavailable [phone] Carolyn Huynh [facility] Unavailable [phone] Vika Kevin APRN FRUIT PICKER Unavailable + Marilyn Willard MD Unavailable [phone] Carie Varela DO Unavailable [phone] Maylin May NP Unavailable [phone] Marisa Hernandez RN Unavailable Unavailable Vilma Long MD Unavailable + [phone] Yasmeen Pendleton [facility] Unavailable Cole George Unavailable Fletcher Russell Unavailable Unavailable Bautista Casey MD Unavailable [phone] Jasmyn Oliver Unavailable [phone] Vika Kevin APRN FRUIT PICKER Primary Care Prov ider Vika Kvein APRN [facility] Primary Care Prov ider Yasmeen Pendleton [facility] Unavailable + [phone] Vika Kevin APRN [facility] Primary Care [facility] ider Reason for Visit * Reason Comments Medication Refill Encounter Details Date Type Department Care Team (Late st Contact Info) Description 07/03/[address] [address] [place] [address] [place] [address] Medication Refill Social History Tobacco Use [...] on file Legal 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 Gender Identity Not on file Sexual [...] per RN protocol Leslye Steiner RN, BSN Addy Triage documented in this encounter Plan of Treatment Not on file documented as of this encounter Visit Diagnoses Diagnosis Gastroesophageal reflux disease without esophagitis Esophageal reflux documented in this encounter Additional Health Concerns Infection Onset Date Last Indicated Resolved Time Rule Out COVID-19 07/25/2020 07/25/2020 07/26/2020 3:02 PM CDT Rule Out COVID-19 12/04/2020 12/04/2020 12/05/2020 6:04 PM POINT OF CARE TECHNICIAN Assessment Noted Time PHQ-9 Depression Total Score: 12 06/19/ 020 3:35 PM CDT documented as of this encounter Care Teams Exercise Rider Relationship Specialty Start Date End Date Julito Banuelos MD [address] [place] [address] PCP - General Family Practice 09/12/15 09/23/21 Vika Kevin APRN FRUIT PICKER [address] [place] [address]692 PCP - General Nurse Practitioner - Family 09/24/21 03/05/22 Vika Kevin APRN FRUIT PICKER [address] [place] [address] PCP - General Nurse Practitioner - Family 03/18/22 06/18/22 Vika Kevin APRN FRUIT PICKER [address] [place] [address] PCP - General Nurse Practitioner - Family 07/24/22 Julito Banuelos MD [address] [place] [address] 47442 Assigned PCP 02/17/16 07/21/[address] [place] [address] Zinc Miner Dietitian, Registered 04/14/19 Susannah Blankenship, [facility] [address] [place] [address] 8[address] [place] [address] Pharmacist Pharmacist 08/08/19 04/15/21 Carolyn Huynh [facility] [address] [place], [place] [address] Pharmacist Pharmacist 06/25/20 04/15/21 Vika Kevin APRN FRUIT PICKER [address] [place], [place] 955[address] Assigned PCP 07/22/20 11/16/24 Marilyn Willard MD [address] [facility] [address] [place], [place] 825515 Assigned Surgical Provider 08/17/20 08/16/24 Carie Varela DO [address] [place] [address] Assigned Heart and Vascular Provider 08/17/20 01/19/21 Maylin May NP [address] [place] [id number] Assigned Pediatric Specialist Provider 12/16/20 06/13/22 Marisa Rodrigues, RN Clinic Bell Spinner Sousaphones 01/15/21 02/26/21 Vilma Long MD [address] [place] [address] Assigned Heart and Vascular Provider 01/20/21 07/20/21 Yasmeen Pendleton [facility] [address] [place], [place] [address] Pharmacist Pharmacist 06/04/21 01/15/22 Cole George LISW Lead Bell Spinner Sousaphones 06/13/21 10/07/21 Fletcher Up Community Health Worker 06/13/21 09/12/21 Bautista Casey MD [address] [place] [address] Assigned Heart and Vascular Provider 07/21/21 01/16/23 Jasmyn Oliver CHW Community Health Worker 09/13/21 10/07/21 Yasmeen Pendleton [facility] [address] [place] [address] Assigned MTM Pharmacist 03/22/22 01/02/23 documented as of this encounter
--- OUTSIDE RECORDS SUMMARY | 2024-12-16 22:58 | XMS_ITS | Encounter Summary ---
Author Organization [place] Address [address] [facility] [place] [address] Care Team Providers Care [place] Name Role Phone Julito Banuelos MD Primary Care Provider [phone] Unavailable Unavailable Susannah Blankenship [facility] Unavailable [phone] Carolyn Huynh [facility] Unavailable [phone] Vika Kevin APRN [facility] Unavailable + Marilyn Willard MD Unavailable [phone] Carie Varela DO Unavailable [phone] Maylin May NP Unavailable [phone] Marisa Hernandez RN Unavailable Unavailable Vilma Long MD Unavailable + [phone] Yasmeen Pendleton [facility] Unavailable +[phone] Cole George Unavailable Fletcher Russell Unavailable Unavailable Bautista Casey MD Unavailable [phone] Jasmyn Oliver Unavailable [phone] Vika Kevin APRN [facility] Primary Care Prov ider Vika Kevin APRN [facility] Primary Care Prov ider Yasmeen Pendleton [facility] Unavailable [phone] Vika Kevin APRN SUPERVISOR CUSTOMER COMPLAINT SERVICE Primary Care Prov ider Encounter Details Date Type Department Care Team (Late st Contact Info) Description 12/10/2020 MyC Medical Advice [facility] [address] [facility] [address] [place] [address] [facility] [address] [place] [address] Social History Tobacco Use Types [...] on file Legal 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 FLEET ASSISTANT Gender Identity Not on file Sexual Orientation Not on file Occupation Industry Job Start Date Job End Date Not on file Not on file Not on file Not on file COVID-19 Exposure Response Date Recorded In the last month, have you been in contact with someone who was confirmed or suspected to have Coronavirus / COVID-19? No / Unsure 12/11/2020 3:56 PM FLEET ASSISTANT documented as of this encounter Plan of Treatment Not on file documented as of this encounter Visit Diagnoses Not on filedocumented in this encounter Additional Health Concerns Assessment Noted Time PHQ-9 Depression Total Score: 10 020 9:30 AM FLEET ASSISTANT documented as of this encounter Care Teams [place] Relationship Specialty Start Date End Date Julito Banuelos MD [address] [place] [address]79 PCP - General Family Practice 09/12/15 09/23/21 Vika Kevin APRN SUPERVISOR CUSTOMER COMPLAINT SERVICE [address] [place] [address] 49705 PCP - General Nurse Practitioner - Family 09/24/21 03/05/22 Vika Kevin APRN SUPERVISOR C[employer] COMPLAINT [employer]ICE [address] [place] [address] 07068 PCP - General Nurse Practitioner - Family 03/18/22 06/18/22 Vika Kevin, JAIME SUPERVISOR CUST[employer] COMPLAINT SERVICE [address] [place] [address] 52578 PCP - General Nurse Practitioner - Family 07/24/[address] [place] [address]41 Aligning Checker Dietitian, Registered 04/14/19 Susannah Blankenship, [facility] [address] [place] [address] [address] [place] [address] Pharmacist Pharmacist 08/08/19 04/15/21 Carolyn Huynh [facility] [address] [place] [address] Pharmacist Pharmacist 06/25/20 04/15/21 Vika Kevin, JAIME SUPERVISOR C[employer] COMPLAINT [employer]ICE [address] [place] [address]013 Assigned PCP 07/22/20 11/16/24 Marilyn Willard MD [address] [place] [address] [address] [place], [place] 120815 Assigned Surgical Provider 08/17/20 08/16/24 Carie Varela DO [address] [place] [address] Assigned Heart and Vascular Provider 08/17/20 01/19/21 Maylin May NP [address] [place] [address] Assigned Pediatric Specialist Provider 12/16/20 06/13/22 Marisa Rodrigues, RN Clinic Napping Machine Operator 01/15/21 02/26/21 Vilma Long MD [address] [place] [address] Assigned Heart and Vascular Provider 01/20/21 07/20/21 [facility] [address] [place] [address] [phone] Pharmacist Pharmacist 06/04/21 01/15/22 Cole George LISW Lead Napping Machine Operator 06/13/21 10/07/21 Fletcher Up Community Health Worker 06/13/21 09/12/21 Bautista Casey MD [address] [place] [address] Assigned Heart and Vascular Provider 07/21/21 01/16/23 Jasmyn Oliver CHW Community Health Worker 09/13/21 10/07/21 Yasmeen Pendleton [facility] [address] [place] [address] 112205 Assigned MTM Pharmacist 03/22/22 01/02/23 documented as of this encounter
--- OUTSIDE RECORDS SUMMARY | 2024-12-16 22:58 | XMS_ITS | Encounter Summary ---
Author Organization [place] Address [address] [facility] [place] [address] Care Team Providers Care Inspector Health Care Facilities Name Role Phone Cortez Lu MD Primary Care Provider [phone] Niko Resendiz MD Primary Care Provider Carlie Mac MD Primary Care Provide r Angella Mendieta MD Primary Care Provider Julito Banuelos MD Primary Care Provider [phone] Julito Banuelos MD Unavailable Julito Banuelos MD Unavailable Aleshia Henriquez RD Unavailable Unavailable Mary Kay Jones [facility] Unavailable Unavailable Susannah Blankenship [facility] Unavailable [phone] Carolyn Huynh [facility] Unavailable [phone] Vika Kevin APRN BATTERY TESTER FIELD Unavailable + Marilyn Willard MD Unavailable [phone] Carie Varela DO Unavailable [phone] Maylin May NP Unavailable [phone] Marisa Rodrigues RN Unavailable Unavailable Vilma Long MD Unavailable + [phone] Yasmeen Pendleton [facility] Unavailable + [phone] Cole George Unavailable Fletcher Russell Unavailable Unavailable Bautista Casey MD Unavailable [phone] TatyanaJasmyn anand [facility] Unavailable [phone] Vika Kevin APRN [facility] Primary Care Prov ider Vika Kevin APRN [facility] Primary Care Prov ider Yasmeen Pendleton [facility] Unavailable + [phone] [facility] Primary Care Prov ider Encounter Details Date Type Department Care Team (Late st Contact Info) Description 12/23/2013 Office Visit-[facility] Heart [facility] [address] [facility] [address] [place] [address] Cristy Hanna, JAIME [facility] XXX RESIGNED XXX [address] [facility] [address] [place] [id number] Social History Tobacco Use Types Packs/Day Years [...] file Legal 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 Diabetes Zwfrtfbe-Rjx-Qbrfmpw Dependent, 250.00 2. - Hyperlipidemia mixed, 272.2 [...] daily 10. Nasacort AQ 55 mcg Aerosol, [place], Take as Directed 11. Plavix 75 mg [...] pleasure of seeing Marialuisa Cosby at the [facility].She is a 73-year-old white female with a history of coronary artery disease, hypertension, diabetes, dyslipidemia, and asthma. She is here today to review her recent event monitor. Her cardiovascular history includes hypertension, diabetes, and dyslipidemia. In December 2012 while visiting in [place], she had a non-ST elevation myocardial infarction and underwent an angiogram withPCI to the proximal and mid circumflex. LV function has been normal by echocardiogram. Apparently, that legal manager recommended lifelong Plavix. She established care here [...] and two episodes of tachycardia in the unhairer hours of December 09, 2013. Maximum heart [...] Leg syndrome Past Cardiac Illnesses: CAD, s/p RI Surgeries/Procedures - General: hysterectomy, tonsillectomy Cardiac/Vasc Procedures-Invasive: left heart cath 12/2012 ([place]) Cardiology Procedures-NonInvasive: echocardiogram Jun 2007, myocardial perfusion (Nuc) Jun 2007, echo 12/2012 ([place]), stress echo February 2013 Cardiac Cath Results: 12/2012 [place] Resolute NELIA to the mid and prox [...] - lives with ; Place of - [place]; REVIEW OF SYSTEMS GENERAL feeling much better [...] COVID-19 12/04/2020 12/04/2020 12/05/2020 6:04 PM FIELD ARTILLERY CANNONEER documented as of this encounter Care Teams Inspector Health Care Facilities Relationship Specialty Start Date End Date Cortez Lu MD XXX RETIRED XXX [address] [place] [phone] PCP - General 12/10/01 01/10/14 Niko Resendiz MD [address] [place] [address] PCP - General Internal Medicine 01/11/14 01/29/14 Carlie Mac MD [address] [place] [address] PCP - General Pediatrics 01/30/14 07/17/15 Angella Mendieta MD [address] [place] [address] PCP - General Family Practice 07/18/15 09/11/15 Julito Banuelos MD [address] [place] [address] [phone] PCP - General Family Practice 09/12/15 09/23/21 Julito Banuelos MD [address] [place] [address] PCP - Assigned PCP 02/17/16 12/28/18 Vika Kevin APRN BATTERY TESTER FIELD [address] [place] [address] 11400 PCP - General Nurse Practitioner - Family 09/24/21 03/05/22 Vika Kevin APRN BATTERY TESTER FIELD [address] [place] [address] PCP - General Nurse Practitioner - Family 03/18/22 06/18/22 Vika Kevin APRN BATTERY TESTER FIELD [address] [place] [address] [phone] PCP - General Nurse Practitioner - Family 07/24/22 Julito Banuelos MD [address] [place] [address] [phone] Assigned PCP 02/17/16 07/21/[address] [place] [address] Scratcher Dietitian, Registered 04/14/19 Mary Kay Jones, [facility] Pharmacist 08/01/19 04/20/20 [facility] [address] [place] [address] [address] [place], [place] [phone] Pharmacist Pharmacist 08/08/19 04/15/21 Carolyn Huynh [facility] [address] [place] [address] Pharmacist Pharmacist 06/25/20 04/15/21 Vika Kevin APRN BATTERY TESTER FIELD [address] [place] [address] [phone] Assigned PCP 07/22/20 11/16/24 Marilyn Willard MD [address] [place] [address] [address] [place], [place] 0[address]25 Assigned Surgical Provider 08/17/20 08/16/24 Carie Varela DO [address] [place] [address] Assigned Heart and Vascular Provider 08/17/20 01/19/21 Maylin May NP [address] [place] [address] Assigned Pediatric Specialist Provider 12/16/20 06/13/22 Marisa Rodrigues, RN Clinic Preventive Medicine Specialist 01/15/21 02/26/21 Vilma Long MD [address] [place] [address] Assigned Heart and Vascular Provider 01/20/21 07/20/21 [facility] [address] [place] [address] [phone] Pharmacist Pharmacist 06/04/21 01/15/22 Cole George LISW Lead Preventive Medicine Specialist 06/13/21 10/07/21 Fletcher Up Community Health Worker 06/13/21 09/12/21 Bautista Casey MD [address] [place] [address] Assigned Heart and Vascular Provider 07/21/21 01/16/23 Jasmyn Oliver CHW Community Health Worker 09/13/21 10/07/21 Yasmeen Pendleton [facility] [address] [place] [address] Assigned MTM Pharmacist 03/22/22 01/02/23 documented as of this encounter
--- OUTSIDE RECORDS SUMMARY | 2024-12-16 22:58 | XMS_ITS | Encounter Summary ---
Author Organization [place] Address [address] [facility] [place] [address] Care Team Providers Care Professional Programmer Analyst Name Role Phone Andrew Lu MD Primary Care Provider [phone] Niko Resendiz MD Primary Care Provider Carlie Mac MD Primary Care Provide r Angella Mendieta MD Primary Care Provider Julito Banuelos MD Primary Care Provider [phone] Julito Banuelos MD Unavailable Julito Banuelos MD Unavailable Aleshia Henriquez RD Unavailable Unavailable Mary Kay Jones [facility] Unavailable Unavailable Susannah Blankenship [facility] Unavailable [phone] Carolyn Huynh [facility] Unavailable [phone] Vika Kevin APRN RISK ANALYST Unavailable + Marilyn Willard MD Unavailable [phone] Carie Varela DO Unavailable [phone] Maylin May NP Unavailable [phone] Marisa Rodrigues RN Unavailable Unavailable Vilma Long MD Unavailable + [phone] Yasmeen Pendleton [facility] Unavailable + [phone] Cole George Unavailable Fletcher Russell Unavailable Unavailable Bautista Casey MD Unavailable [phone] DemetriusJasmyn wright [facility] Unavailable [phone] Vika Kevin APRN [facility] Primary Care Prov ider Vika Kevin APRN [facility] Primary Care Prov ider Yasmeen Pendleton [facility] Unavailable + [phone] Vika Kevin APRN [facility] Primary Care Prov ider Encounter Details Date Type Department Care Team (Late st Contact Info) Description 01/05/2014 MyC Medical Advice [address] [address] Mary Cha LPN Social History [...] on file Legal 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 VISUAL INSPECTOR Gender Identity Not on file Sexual [...] Out COVID-19 12/04/2020 12/04/2020 12/05/2020 6:04 PM VISUAL INSPECTOR documented as of this encounter Care Teams Professional Programmer Analyst Relationship Specialty Start Date End Date Andrew Lu MD XXX RETIRED XXX [address] [place] [address] PCP - General 12/10/01 01/10/14 Niko Resendiz MD [address] [place] [address] PCP - General Internal Medicine 01/11/14 01/29/14 Carlie Mac MD [address] [place] [address] PCP - General Pediatrics 01/30/14 07/17/15 Angella Mendieta MD [address] [place] [address] PCP - General Family Practice 07/18/15 09/11/15 Julito Banuelos MD [address] [place] [address] PCP - General Family Practice 09/12/15 09/23/21 Julito Banuelos MD [address] [place] [address]83 PCP - Assigned PCP 02/17/16 12/28/18 Vika Kevin APRN RISK ANALYST [address] [place] [address]46 PCP - General Nurse Practitioner - Family 09/24/21 03/05/22 Vika Kevin APRN RISK ANALYST [address] [place] [address] PCP - General Nurse Practitioner - Family 03/18/22 06/18/22 Vika Kevin APRN RISK ANALYST [address] [place] [address] [phone] PCP - General Nurse Practitioner - Family 07/24/22 Julito Banuelos MD [address] [place] [address] [phone] Assigned PCP 02/17/16 07/21/[address] [place] [address] Asphalt Roller Operator Dietitian, Registered 04/14/19 Mary Kay Jones, [facility] Pharmacist 08/01/19 04/20/20 [facility] [address] [place] [address] 8[address] [place], [place] [phone] Pharmacist Pharmacist 08/08/19 04/15/21 [facility] [address] [place], [place] [phone] Pharmacist Pharmacist 06/25/20 04/15/21 Vika Kevin APRN RISK ANALYST [address] [place] [address] [phone] Assigned PCP 07/22/20 11/16/24 Marliyn Willard MD [address] [place] [address] [address] [place] [address] Assigned Surgical Provider 08/17/20 08/16/24 Caire Varela DO [address] [place], [place] [phone] Assigned Heart and Vascular Provider 08/17/20 01/19/21 Maylin May NP [address] [place] [address] Assigned Pediatric Specialist Provider 12/16/20 06/13/22 Marisa Rodrigues, RN Clinic Bone Crusher 01/15/21 02/26/21 Vilma Long MD [address] [place] [address] Assigned Heart and Vascular Provider 01/20/21 07/20/21 Yasmeen Pendleton [facility] [address] [place] [address] Pharmacist Pharmacist 06/04/21 01/15/22 Cole George LISW Lead Bone Crusher 06/13/21 10/07/21 Fletcher Up Community Health Worker 06/13/21 09/12/21 Bautista Casey MD [address] [place] [address] Assigned Heart and Vascular Provider 07/21/21 01/16/23 Jasmyn Oliver CHW Community Health Worker 09/13/21 10/07/21 Yasmeen Pendleton [facility] [address] [place] [address] [phone] Assigned MTM Pharmacist 03/22/22 01/02/23 documented as of this encounter
--- NOTE | 2024-12-16 23:00 | ED_ITS ---
HPI - General Adult General Date Seen: 12/16/24 Chief complaint: Cough Stated complaint: cough Time Seen by Provider: 12/16/24 22:20 Source: EMS and RN notes reviewed Mode of arrival: EMS History of Present Illness HPI narrative: Patient is a 84-year-old female with a history of dementia presenting to emergency department for a cough and chest pain. She has been having a cough for the past 4 days. The nurse practitioner [facility] recommended patient be seen in urgent care tomorrow to look for signs of pneumonia. The patient then started complaining about chest pain. Due to that patient was sent here to the emergency department. Patient states she feels fine right now does admit to some mild chest pain. She otherwise is relatively confused and is difficulty giving a history. Denies any other pain at this time. Patient is cooperative. Related Data Home Medications ?Medication ?Instructions ?Recorded ?Confirmed acetaminophen 500 mg tablet 1,000 mg PO Q6H PRN pain 06/29/22 06/29/22 (Acetaminophen Extra Strength) albuterol sulfate 90 mcg/actuation 1 puff inhalation Q4H PRN 06/29/22 06/29/22 aerosol inhaler bronchospasm aluminum-mag hydroxide-simethicone 30 ml PO PRN indigestion 06/29/22 200 mg-200 mg-20 mg/5 mL oral susp (Maalox Advanced) ascorbic acid (vitamin C) 1,000 mg 1 g PO BID 06/29/22 06/29/22 tablet aspirin 81 mg tablet,delayed 81 mg PO .QHS 06/29/22 06/29/22 release (John Low Dose Aspirin) atorvastatin 20 mg tablet 20 mg PO DAILY 06/29/22 06/29/22 bisacodyl 10 mg rectal suppository 10 mg MI PRN constipation 06/29/22 cholecalciferol (vitamin D3) 50 2,000 unit PO DAILY 06/29/22 06/29/22 mcg (2,000 unit) tablet (Vitamin D3) fluticasone 113 mcg-salmeterol 14 1 inh inhalation BID 06/29/22 06/29/22 mcg/actuation breath activated powdr fluticasone propionate 50 2 spray intranasal BID 06/29/22 06/29/22 mcg/actuation nasal spray,suspension furosemide 20 mg tablet 10 mg PO DAILY 06/29/22 06/29/22 gabapentin 100 mg capsule 200 mg PO TID 06/29/22 06/29/22 galantamine 8 mg 24 hr 8 mg PO DAILY 06/29/22 06/29/22 capsule,extended release isosorbide mononitrate 60 mg 60 mg PO DAILY 06/29/22 06/29/22 tablet,extended release 24 hr lamotrigine 150 mg tablet 300 mg PO DAILY 06/29/22 06/29/22 levothyroxine 88 mcg tablet 88 mcg PO DAILY 06/29/22 06/29/22 melatonin 3 mg tablet 3 mg PO .qhs 06/29/22 06/29/22 memantine 14 mg capsule 14 mg PO DAILY 06/29/22 06/29/22 sprinkle,extended release 24hr methenamine hippurate 1 gram tablet 1 g PO BID 06/29/22 06/29/22 nitroglycerin 0.4 mg sublingual 0.4 mg sublingual Q5M PRN 06/29/22 06/29/22 tablet polyethylene glycol 3350 17 17 g PO DAILY 06/29/22 06/29/22 gram/dose oral powder (Miralax) sennosides 8.6 mg tablet (senna) 8.6 mg PO DAILY 06/29/22 06/29/22 sertraline 100 mg tablet 100 mg PO DAILY 06/29/22 06/29/22 Previous Rx's ?Medication ?Instructions ?Recorded oseltamivir 75 mg capsule 75 mg PO BID 5 days #10 caps 12/16/24 Allergies Allergy/AdvReac Type Severity Reaction Status Date / Time cefdinir Allergy Verified 06/29/22 21:08 cephalexin Allergy Verified 06/29/22 21:08 nitrofurantoin Allergy Verified 06/29/22 21:08 Sulfa (Sulfonamide Allergy Verified 06/29/22 21:08 Antibiotics) Review of Systems Status of ROS: Reports: unobtainable due to mental status [facility] Medical History Obesity, unspecified ?E66.9 - Obesity, unspecified (ICD-10) Gastro-esophageal reflux disease without esophagitis ?K21.9 - Gastro-esophageal reflux disease without esophagitis (ICD-10) Vitamin deficiency, unspecified ?E56.9 - Vitamin deficiency, unspecified (ICD-10) Vitamin B12 deficiency anemia, unspecified ?D51.9 - Vitamin B12 deficiency anemia, unspecified (ICD-10) Hyperlipidemia, unspecified ?E78.5 - Hyperlipidemia, unspecified (ICD-10) Hypothyroidism, unspecified ?E03.9 - Hypothyroidism, unspecified (ICD-10) Calculus of kidney ?N20.0 - Calculus of kidney (ICD-10) Calculus of gallbladder with acute cholecystitis without obstruction ?K80.00 - Calculus of gallbladder with acute cholecystitis without obstruction (ICD-10) Sensorineural hearing loss, bilateral ?H90.3 - Sensorineural hearing loss, bilateral (ICD-10) Generalized anxiety disorder ?F41.1 - Generalized anxiety disorder (ICD-10) Other idiopathic peripheral autonomic neuropathy ?G90.09 - Other idiopathic peripheral autonomic neuropathy (ICD-10) Restless legs syndrome ?G25.81 - Restless legs syndrome (ICD-10) Immunodeficiency, unspecified ?D84.9 - Immunodeficiency, unspecified (ICD-10) Essential (primary) hypertension ?I10 - Essential (primary) hypertension (ICD-10) Type 2 diabetes mellitus without complications ?E11.9 - Type 2 diabetes mellitus without complications (ICD-10) ST elevation (STEMI) myocardial infarction involving other coronary artery of anterior wall ?I21.09 - ST elevation (STEMI) myocardial infarction involving other coronary artery of anterior wall (ICD-10) Presence of other specified devices ?Z97.8 - Presence of other specified devices (ICD-10) Personal history of (healed) traumatic fracture ?Z87.81 - Personal history of (healed) traumatic fracture (ICD-10) Urinary tract infection, site not specified ?N39.0 - Urinary tract infection, site not specified (ICD-10) Repeated falls ?R29.6 - Repeated falls (ICD-10) Dementia in other diseases classified elsewhere with behavioral disturbance ?F02.81 - Dementia in other diseases classified elsewhere with behavioral disturbance (ICD-10) Pain, unspecified ?R52 - Pain, unspecified (ICD-10) Unspecified urethral stricture, female ?N35.92 - Unspecified urethral stricture, female (ICD-10) Retention of urine, unspecified ?R33.9 - Retention of urine, unspecified (ICD-10) Syncope and collapse ?R55 - Syncope and collapse (ICD-10) Traumatic subdural hemorrhage with loss of consciousness of unspecified duration, subsequent encounter ?S06.5X9D - Traumatic subdural hemorrhage with loss of consciousness of unspecified duration, subsequent encounter (ICD-10) 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, unspecified ?E08.40 - 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, unspecified (ICD-10) Edema, unspecified ?R60.9 - Edema, unspecified (ICD-10) Constipation, unspecified ?K59.00 - Constipation, unspecified (ICD-10) Other specified symptoms and signs involving the digestive system and abdomen ?R19.8 - Other specified symptoms and signs involving the digestive system and abdomen (ICD-10) Alzheimer's disease with late onset ?G30.1 - Alzheimer's disease with late onset (ICD-10) ?F02.80 - Dementia in other diseases classified elsewhere without behavioral disturbance (ICD-10) Surgical History Other specified postprocedural states ?Z98.890 - Other specified postprocedural states (ICD-10) Social History Smoking Status: Never smoker Do you use any of these nicotine containing products: None Second hand tobacco smoke exposure: No How often do you have a drink containing alcohol: never How often do you have six or more drinks on one occasion: Never AUDIT-C Alcohol total score: 0 Non-prescribed substance use: denies use service: No Exam Narrative: Exam Narrative: Const: Well-nourished, Well-developed, in no distress Eyes: PERRL, no conjunctival injection, and symmetrical lids HENT: Atraumatic external nose and ears. Moist mucous membranes. Neck: Symmetric, trachea midline, No thyromegaly. CVS: RRR, No murmurs or gallops. Peripheral pulses 2+ and equal in all extremities RESP: Unlabored respiratory effort. Clear to auscultation bilaterally. GI: Nontender/Nondistended, No rebound or guarding. MSK:Extremities w/o deformity, Normal Active ROM Skin: Warm, Dry. No rashes or lesions. Neuro: Normal Muscle tone, No focal neurological deficits. Psych: Awake, Alert, & Oriented x3. Appropriate mood and affect. Const: Vital Signs, click to edit/add: Vital Signs - 24 hr 12/16/24 22:35 Temperature 97.4 F L Pulse Rate [Right Radial] 55 L Respiratory Rate 16 Blood Pressure [Ri ght Upper Arm] 164/67 H Pulse Oximetry 97 Oxygen Delivery Me thod Room Air Course Vital Signs Vital signs: Initial Vital Signs Temperature 97.4 F L 12/16/24 22:35 Temperature Source Temporal Artery Scan 12/16/24 22:35 Pulse Rate 55 L 12/16/24 22:35 Pulse Rhythm Regular 12/16/24 22:35 Respiratory Rate 16 12/16/24 22:35 Blood Pressure 164/67 H 12/16/24 22:35 Blood Pressure Mean 99 12/16/24 22:35 Pulse Oximetry 97 12/16/24 22:35 Oxygen Delivery Method Room Air 12/16/24 22:35 Vital Signs Temperature 97.4 F L 12/16/24 22:35 Pulse Rate 55 L 12/16/24 22:35 Respiratory Rate 16 12/16/24 22:35 Blood Pressure 164/67 H 12/16/24 22:35 Pulse Oximetry 97 12/16/24 22:35 Oxygen Delivery Method Room Air 12/16/24 22:35 Temperature 97.4 F L 12/16/24 22:35 Pulse Rate 55 L 12/16/24 22:35 Respiratory Rate 16 12/16/24 22:35 Blood Pressure 164/67 H 12/16/24 22:35 Pulse Oximetry 97 12/16/24 22:35 Oxygen Delivery Method Room Air 12/16/24 22:35 Medical Decision Making [facility] Narrative Medical decision making narrative: Patient is a 84-year-old female presenting for cough and chest pain. The differential diagnosis of chest pain is broad and includes common etiologies such as musculoskeletal strain, GERD, pneumonia, etc. More serious etiologies considered include PE, coronary artery disease, pneumothorax, aortic dissection, aortic aneurysm. She is otherwise stable and PE, aortic dissection, aortic aneurysm seem very unlikely. Will do an EKG and troponin to look for signs of ACS. Chest x-ray ordered to look for signs of pneumonia. Also ordered CBC, BMP, COVID/flu/RSV. CBC, BMP shows no concerning abnormalities. Troponin within normal limits. EKG shows no acute concerning findings as reviewed by myself. She is positive for influenza type A. Tamiflu was ordered. Her daughter is now in the room with her and her daughter states she is otherwise acting at her baseline. Will repeat troponin. Chest x-ray reviewed by myself and the radiologist just shows moderate atherosclerotic calcifications in the coronary arteries. No other concerns found. Lab Data Labs: Lab Results 12/16/24 12/16/24 12/16/24 Range/Units 22:30 22:43 23:00 WBC 3.97 L (4.50-11.00) K/uL RBC 3.60 L (4.00-5.20) m/uL Hgb 10.5 L (12.0-16.0) gm/dL Hct 32.6 L (33.0-51.0) % MCV 91 (80-100) fL MCH 29 (26-34) pg MCHC 32 (32-36) gm/dL RDW Coeff of Latoya 13.4 (11.5-15.5) % Plt Count 142 (140-440) K/uL Neut % (Auto) 58.2 (42.0-72.0) % Lymph % (Auto) 29.7 (20-44) % Haakon % (Auto) 8.8 (0.0-11.0) % Eos % (Auto) 2.5 (0.0-7.0) % Baso % (Auto) 0.5 (0.0-3.0) % Neut # (Auto) 2.30 (1.7-7.0) K/uL Lymph # (Auto) 1.20 (0.90-2.90) K/uL Haakon # (Auto) 0.30 (0.00-0.90) K/UL Eos # (Auto) 0.10 (0.00-0.50) K/uL Baso # (Auto) 0.00 (0.00-0.30) K/uL Abs Immat Gran (auto) 0.00 (0.00-0.30) K/uL Imm/Tot Granulo (auto) 0.3 % Sodium 135 (135-149) mmol/L Potassium 3.7 (3.6-5.1) mmol/L Chloride 102 (96-114) mmol/L Carbon Dioxide 24 (20-32) mmol/L Anion Gap 9 (7-15) mEq/L BUN 18 (7-30) mg/dL Creatinine 0.7 (0.5-1.5) mg/dL Estimated GFR 86 ml/min Glucose 109 (60-115) mg/dL Calcium 8.7 (8.4-10.6) mg/dL Troponin I < 0.01 L (0.01-0.04) ng/mL SARS-CoV-2 (PCR) Negative SARS-CoV-2 (Negative) Influenza Type A (PCR) POSITIVE PCR FLU A A (Negative) Influenza Type B (PCR) Negative PCR FLU B (Negative) RSV (PCR) Negative PCR RSV (Negative) POC Troponin I 0.00 L (0.01-0.04) ng/ml Imaging Data Chest x-ray: Attestation: I have reviewed the pertinent imaging results. Radiologist's impression: 1. Moderate atherosclerotic calcifications are noted in the coronary arteries. Dictated by Tesfaye Tang MD @ 12/16/2024 11:43:03 PM ECG Data Attestation: I personally reviewed and interpreted this ECG as follows: Prior ECG tracings: available for review Interpretation: Sinus bradycardia with first-degree AV block, normal intervals, normal axis, no ST or T-wave abnormalities. Appears similar previous EKG on file. Discharge Plan Discharge Clinical Impression: Influenza Patient Disposition: Home w/ Parent or Adult Condition: Stable Instructions: Influenza (DC) Additional Instructions: Take the Tamiflu as directed. Return to emergency department for new or worsening symptoms. Prescriptions: New oseltamivir 75 mg capsule 75 mg PO BID 5 Days Qty: 10 0RF No Action acetaminophen [Acetaminophen Extra Strength] 500 mg tablet 1,000 mg PO Q6H PRN (Reason: pain) Patient Comments: Give 2 tablets every 6 hours for pain albuterol sulfate 90 mcg/actuation HFA aerosol inhaler 1 puff INHALATION Q4H PRN (Reason: bronchospasm) Patient Comments: 1 puff inhale by mouth every 4 hours as needed alum-mag hydroxide-simeth [Maalox Advanced] 200-200-20 mg/5 mL suspension 30 ml PO PRN (Reason: indigestion) Patient Comments: Give 30ml as needed TID aspirin [John Low Dose Aspirin] 81 mg tablet,delayed release (DR/EC) 81 mg PO .QHS Patient Comments: 1 tablet by mouth once a day atorvastatin 20 mg tablet 20 mg PO DAILY bisacodyl 10 mg suppository 10 mg MI PRN (Reason: constipation) Patient Comments: Give 1 suppository rectally as needed fluticasone propionate 50 mcg/actuation spray,suspension 2 spray INTRANASAL BID furosemide 20 mg tablet 10 mg PO DAILY gabapentin 100 mg capsule 200 mg PO TID galantamine 8 mg capsule,ext rel. pellets 24 hr 8 mg PO DAILY ascorbic acid (vitamin C) 1,000 mg tablet 1 g PO BID Patient Comments: 1 tablet by mouth twice a day cholecalciferol (vitamin D3) [Vitamin D3] 50 mcg (2,000 unit) tablet 2,000 unit PO DAILY Patient Comments: 1 tablet by mouth once a day sertraline 100 mg tablet 100 mg PO DAILY fluticasone propion-salmeterol 113-14 mcg/actuation aerosol powdr breath activated 1 inh INHALATION BID isosorbide mononitrate 60 mg tablet extended release 24 hr 60 mg PO DAILY lamotrigine 150 mg tablet 300 mg PO DAILY levothyroxine 88 mcg tablet 88 mcg PO DAILY melatonin 3 mg tablet 3 mg PO .qhs Patient Comments: 1 tablet by mouth at bedtime memantine 14 mg capsule,sprinkle,ER 24hr 14 mg PO DAILY methenamine hippurate 1 gram tablet 1 g PO BID polyethylene glycol 3350 [Miralax] 17 gram/dose powder 17 g PO DAILY Patient Comments: Mix 1 capful of Miralax in water or juice every morning. nitroglycerin 0.4 mg tablet, sublingual 0.4 mg sublingual Q5M PRN sennosides [senna] 8.6 mg tablet 8.6 mg PO DAILY Patient Comments: 1 tablet by mouth every morning Follow Up/Referrals: Provider,Not a Local [Primary Care Provider] - Stand Alone Forms: [facility] Inst[facility]
[2024-12-16 23:04] LABS: Basophils Percent Auto 0.5 % (0.0-3.0); Eosinophils Percent Auto 2.5 % (0.0-7.0); Hematocrit 32.6 % (33.0-51.0); Hemoglobin* 10.5 gm/dL (12.0-16.0); Immature Granulocytes Pct Auto 0.3 %; Lymphocytes Percent Auto 29.7 % (20-44); Mean Corpuscular HGB Conc 32 gm/dL (32-36); Mean Corpuscular Hemoglobin 29 pg (26-34); Mean Corpuscular Volume 91 fL (80-100); Monocytes Percent Auto 8.8 % (0.0-11.0); Neutrophils Percent Auto 58.2 % (42.0-72.0); Platelet Count* 142 K/uL (140-440); RDW Coefficient of Variation % 13.4 % (11.5-15.5); Slide Review Reflex No; White Blood Count* 3.97 K/uL (4.50-11.00)
[2024-12-16 23:16] LABS: Chloride* 102 mmol/L (96-114); Potassium* 3.7 mmol/L (3.6-5.1); Sodium* 135 mmol/L (135-149)
[2024-12-16 23:17] LABS: PCR FLU A POSITIVE PCR FLU A (Negative); PCR FLU B Negative PCR FLU B (Negative); PCR RSV Negative PCR RSV (Negative); SARS PCR* Negative SARS-CoV-2 (Negative)
[2024-12-16 23:18] LABS: Creatinine* 0.7 mg/dL (0.5-1.5); Estimated Glomerular Filt Rate 86 ml/min
[2024-12-16 23:19] LABS: Anion Gap 9 mEq/L (7-15); Blood Urea Nitrogen* 18 mg/dL (7-30); Calcium* 8.7 mg/dL (8.4-10.6); Carbon Dioxide* 24 mmol/L (20-32); Glucose* 109 mg/dL (60-115)
[2024-12-16 23:31] LABS: Troponin I* < 0.01 ng/mL (0.01-0.04)
[2024-12-16] MEDS: OSELTAMIVIR PHOSPHATE 75 MG CAPSULE PO (23:45)
== END 2024-12-17 01:00 | disposition home or self-care (01) ==
PROVIDERS: Student in an Organized Health Care Education/Training Program; Emergency Provider Family Medicine
DX: J10.1 Influenza due to other identified influenza virus with other respiratory manifestations (principal); R07.9 Chest pain, unspecified
CPT/HCPCS: 36415; 71046; 80048; 84484; 85025; 87631; 93005; 99284; 99285; A9270

== ENCOUNTER 2025-03-15 11:34 | Outpatient (REF) | payer MEDICARE, SELFPAY ==
[2025-03-15 13:50] LABS: Eosinophils Percent Auto 2.5 % (0.0-7.0); Lymphocytes Percent Auto 28.8 % (20-44); Mean Corpuscular HGB Conc 32 gm/dL (32-36); Mean Corpuscular Hemoglobin 31 pg (26-34); Mean Corpuscular Volume 94 fL (80-100); Monocytes Percent Auto 9.3 % (0.0-11.0); Neutrophils Percent Auto 59.4 % (42.0-72.0); Platelet Count* 142 K/uL (140-440); RDW Coefficient of Variation % 14.1 % (11.5-15.5); White Blood Count* 2.81 K/uL (4.50-11.00)
[2025-03-15 14:01] LABS: Slide Review Reflex No
[2025-03-15 14:11] LABS: Chloride* 105 mmol/L (96-114); Sodium* 140 mmol/L (135-149)
[2025-03-15 14:14] LABS: Anion Gap 9 mEq/L (7-15); Blood Urea Nitrogen* 17 mg/dL (7-30); Calcium* 9.2 mg/dL (8.4-10.6); Carbon Dioxide* 26 mmol/L (20-32); Creatinine* 0.8 mg/dL (0.5-1.5); Estimated Glomerular Filt Rate 73 ml/min; Glucose* 103 mg/dL (60-115)
== END 2025-03-15 11:35 | disposition home or self-care (01) ==
LOC: NPINS 11:34
PROVIDERS: Referring Provider Nurse Practitioner Gerontology; Visit Provider Nurse Practitioner Gerontology
DX: Z01.818 Encounter for other preprocedural examination (principal); Z01.812 Encounter for preprocedural laboratory examination; I10 Essential (primary) hypertension; E11.9 Type 2 diabetes mellitus without complications; G30.1 Alzheimer's disease with late onset
CPT/HCPCS: 80048; 85025

== ENCOUNTER 2025-04-07 11:56 | Outpatient (CLI) | payer MEDICARE, SELFPAY | END 2025-04-07 11:57 | disposition home or self-care (01) | LOC: AMB 04-10 09:22 | PROVIDERS: PCP Nurse Practitioner Gerontology; Visit Provider Internal Medicine | DX: S09.90XA Unspecified injury of head, initial encounter (principal); S19.9XXA Unspecified injury of neck, initial encounter; W18.30XA Fall on same level, unspecified, initial encounter; Y92.032 Bedroom in apartment as the place of occurrence of the external cause | CPT/HCPCS: A0425; A0433 ==

== ENCOUNTER 2025-04-07 12:22 | Emergency (ER) | payer MEDICARE, SELFPAY ==
--- OUTSIDE RECORDS SUMMARY | 2019-12-05 06:03 | XMS_ITS | Continuity of Care Document ---
Author Organization [facility] Address [address] [address] [place] [address] Phone Care Team Providers Care Or Manager Name Role Phone Magdaleno Anna MD Unavailable Unavailable Procedures Procedure Date Colonoscopy W/Submucosal Injection Colonoscopy Flex; W/remov Les- 16 Advance Directives Directive Yes / No Effective Date File Name No Information Encounters Encounter Description Practice Location Reason(s) For Visit Diagnoses Date Provider Providers Copied on Encounter [facility], [address] [address], [place], [place], [address], [place] tel:[phone] [facility] No Information Wilfrido Dolan. [address] [place] [address], [facility] [address], [place], [place], [address], [place]. tel:[phone] [facility], [address] [address], [place], [place], [address], [place] tel:[phone] [facility] No Information Mohan Sands. [address] [place] [address], [facility] [address], [place], [place], [address], [place]. tel:[phone] Referring Provider: Julito Martin, [address] [place], [address]. tel:[phone] Family History Family Member Type Diagnosis Age At Onset No Information Payers Payer name Insurance type Covered democrat ID Authoriza tion(s) Blue Cross [place] Blue BL [id number] Social History Type Description Quantity Date Captured [...]
--- OUTSIDE RECORDS SUMMARY | 2025-04-07 12:25 | XMS_ITS | Clinical Summary ---
Author Organization [employer] Address [address] [place] [id number] Care Team Providers [employer] Name Role Phone Julito Banuelos MD Primary Care Provider [phone] Allergies Active Allergy Reactions Criticality Noted Date [...] on file Legal Sex Female 6:13 AM INDUSTRIAL REGISTERED NURSE Gender Identity Not on file Sexual Orientation Not on file Obstetrics History Last Filed Vital Signs Vital Sign Reading Time Taken Comments Blood Pressure 159/79 10/17/2018 10:16 AM INDUSTRIAL REGISTERED NURSE Pulse 78 10/17/2018 10:16 AM INDUSTRIAL REGISTERED NURSE Temperature 36.7 C (98 F) 10/17/2018 10:16 AM INDUSTRIAL REGISTERED NURSE Respiratory Rate 20 10/17/2018 10:16 AM INDUSTRIAL REGISTERED NURSE Oxygen Saturation 96% 10/17/2018 10:16 AM INDUSTRIAL REGISTERED NURSE Inhaled Oxygen Concentration - - Weight 98 kg (216 lb) 10/17/2018 10:16 AM INDUSTRIAL REGISTERED NURSE Height 172.7 cm (5' 8) 10/17/2018 10:16 AM INDUSTRIAL REGISTERED NURSE Body Mass Index 32.84 10/17/2018 10:16 AM INDUSTRIAL REGISTERED NURSE Plan of Treatment Health Maintenance Due Date [...] 65+ 2006 RSV vaccine for adults or (1 - 1-dose 75+ series) 2016 COVID-19 vaccine series ( season) 2024 03/03/2022, 12/25/2020, 11/30/2020 Influenza Vaccine (Season Ended) 2025 Hepatitis B series for 19+ Aged Out N o longer eligible based on patient's age to complete this topic Insurance MEDICARE PART B HB ONLY [employer]UE [employer] [place] BLUE HB ONLY [employer] MEDICARE ADVANTAGE MR Care Teams [employer] Relationship Specialty Start Date End Date Julito Banuelos MD PCP - General Family Practice 10/17/18
[2025-04-07 12:30] VITALS: BP 121/62; PULSE 53; RESP 16; TEMP 36.8; O2SAT 96
--- NOTE | 2025-04-07 12:42 | CRLHL7_ITS ---
For Patients: As a result of the Century Cures Act, medical imaging exams and procedure reports are released immediately into your electronic medical record. You may view this report before your referring provider. If you have questions, please contact your health care provider. INDICATION: Fall TECHNIQUE: CT cervical spine without contrast. COMPARISON: None FINDINGS: Vertebrae: Alignment is normal. There are no fractures or suspicious bony lesions. Discs and facet joints: Facet hypertrophy C2-3 without significant stenosis. Facet hypertrophy C3-4 without significant stenosis. Facet hypertrophy C4-5 without significant stenosis. Posterior osteophytes C5-6 without significant stenosis. Facet hypertrophy C6-7 and C7-T1 without significant stenosis. Extraspinal findings: Atherosclerosis. Bilateral tonsillar calcification. IMPRESSION: Multilevel degenerative changes cervical spine without evidence of cervical spine fracture. Please note that all CT scans at this facility use dose modulation, iterative reconstruction, and/or weight-based dosing when appropriate to reduce radiation dose to as low as reasonably achievable. Dictated by Marco Matos MD @ 04/07/2025 1:59:46 PM (Electronically Signed)
--- NOTE | 2025-04-07 12:42 | CRLHL7_ITS ---
For Patients: As a result of the Century Cures Act, medical imaging exams and procedure reports are released immediately into your electronic medical record. You may view this report before your referring provider. If you have questions, please contact your health care provider. INDICATION: Fall TECHNIQUE: CT head without contrast. COMPARISON: Head CT 07/13/2022 FINDINGS: CSF spaces: Within normal limits for age. Brain parenchyma: The galo-white differentiation is normal. No sign of mass, hemorrhage, or midline shift. Cerebral atrophy. Diffuse low-density within the deep white matter. Skull base and calvarium: The visualized paranasal sinuses and mastoid air cells demonstrate no acute or significant findings. The visualized orbits are grossly unremarkable. No skull fractures. Left parietal scalp hematoma. Atherosclerosis. IMPRESSION: 1. Left parietal scalp hematoma without calvarial fracture or intracranial bleed. 2. Cerebral atrophy with nonspecific white matter disease, likely microangiopathy. Please note that all CT scans at this facility use dose modulation, iterative reconstruction, and/or weight-based dosing when appropriate to reduce radiation dose to as low as reasonably achievable. Dictated by Marco Matos MD @ 04/07/2025 1:54:51 PM (Electronically Signed)
--- NOTE | 2025-04-07 13:07 | ED.GENADULT ---
HPI - General Adult General Chief complaint: Fall/Minor Trauma Stated complaint: fall Time Seen by Provider: 04/07/25 12:33 History of Present Illness HPI narrative: Patient is a 84-year-old woman with dementia who lives at a chcf. She has been falling more frequently at the chcf. She has chronic dementia and lives at the Memory Unit. In the last several days she has fallen 3-5 times and has hit her head least once. She comes in today and appears to be at her baseline level of cognitive functioning. She can move all of her extremities. She arrives via EMS with a neck collar in place. He has no major complaints states she has not injured unclear the immediate history prior to fall but does appear that she is becoming less safe at the chcf. Related Data Home Medications ?Medication ?Instructions ?Recorded ?Confirmed acetaminophen 500 mg tablet 1,000 mg PO Q6H PRN pain 06/29/22 06/29/22 (Acetaminophen Extra Strength) albuterol sulfate 90 mcg/actuation 1 puff inhalation Q4H PRN 06/29/22 06/29/22 aerosol inhaler bronchospasm aluminum-mag hydroxide-simethicone 30 ml PO PRN indigestion 06/29/22 200 mg-200 mg-20 mg/5 mL oral susp (Maalox Advanced) ascorbic acid (vitamin C) 1,000 mg 1 g PO BID 06/29/22 06/29/22 tablet aspirin 81 mg tablet,delayed 81 mg PO .QHS 06/29/22 06/29/22 release (John Low Dose Aspirin) atorvastatin 20 mg tablet 20 mg PO DAILY 06/29/22 06/29/22 bisacodyl 10 mg rectal suppository 10 mg IA PRN constipation 06/29/22 cholecalciferol (vitamin D3) 50 2,000 unit PO DAILY 06/29/22 06/29/22 mcg (2,000 unit) tablet (Vitamin D3) fluticasone 113 mcg-salmeterol 14 1 inh inhalation BID 06/29/22 06/29/22 mcg/actuation breath activated powdr fluticasone propionate 50 2 spray intranasal BID 06/29/22 06/29/22 mcg/actuation nasal spray,suspension furosemide 20 mg tablet 10 mg PO DAILY 06/29/22 06/29/22 gabapentin 100 mg capsule 200 mg PO TID 06/29/22 06/29/22 galantamine 8 mg 24 hr 8 mg PO DAILY 06/29/22 06/29/22 capsule,extended release isosorbide mononitrate 60 mg 60 mg PO DAILY 06/29/22 06/29/22 tablet,extended release 24 hr lamotrigine 150 mg tablet 300 mg PO DAILY 06/29/22 06/29/22 levothyroxine 88 mcg tablet 88 mcg PO DAILY 06/29/22 06/29/22 melatonin 3 mg tablet 3 mg PO .qhs 06/29/22 06/29/22 memantine 14 mg capsule 14 mg PO DAILY 06/29/22 06/29/22 sprinkle,extended release 24hr methenamine hippurate 1 gram tablet 1 g PO BID 06/29/22 06/29/22 nitroglycerin 0.4 mg sublingual 0.4 mg sublingual Q5M PRN 06/29/22 06/29/22 tablet polyethylene glycol 3350 17 17 g PO DAILY 06/29/22 06/29/22 gram/dose oral powder (Miralax) sennosides 8.6 mg tablet (senna) 8.6 mg PO DAILY 06/29/22 06/29/22 sertraline 100 mg tablet 100 mg PO DAILY 06/29/22 06/29/22 Previous Rx's ?Medication ?Instructions ?Recorded oseltamivir 75 mg capsule 75 mg PO BID 5 days #10 caps 12/16/24 Allergies Allergy/AdvReac Type Severity Reaction Status Date / Time cefdinir Allergy Verified 06/29/22 21:08 cephalexin Allergy Verified 06/29/22 21:08 nitrofurantoin Allergy Verified 06/29/22 21:08 Sulfa (Sulfonamide Allergy Verified 06/29/22 21:08 Antibiotics) Review of Systems Status of ROS: Reports: 10 or more systems reviewed and unremarkable except as noted in History and below [facility] Medical History Obesity, unspecified ?E66.9 - Obesity, unspecified (ICD-10) Gastro-esophageal reflux disease without esophagitis ?K21.9 - Gastro-esophageal reflux disease without esophagitis (ICD-10) Vitamin deficiency, unspecified ?E56.9 - Vitamin deficiency, unspecified (ICD-10) Vitamin B12 deficiency anemia, unspecified ?D51.9 - Vitamin B12 deficiency anemia, unspecified (ICD-10) Hyperlipidemia, unspecified ?E78.5 - Hyperlipidemia, unspecified (ICD-10) Hypothyroidism, unspecified ?E03.9 - Hypothyroidism, unspecified (ICD-10) Calculus of kidney ?N20.0 - Calculus of kidney (ICD-10) Calculus of gallbladder with acute cholecystitis without obstruction ?K80.00 - Calculus of gallbladder with acute cholecystitis without obstruction (ICD-10) Sensorineural hearing loss, bilateral ?H90.3 - Sensorineural hearing loss, bilateral (ICD-10) Generalized anxiety disorder ?F41.1 - Generalized anxiety disorder (ICD-10) Other idiopathic peripheral autonomic neuropathy ?G90.09 - Other idiopathic peripheral autonomic neuropathy (ICD-10) Restless legs syndrome ?G25.81 - Restless legs syndrome (ICD-10) Immunodeficiency, unspecified ?D84.9 - Immunodeficiency, unspecified (ICD-10) Essential (primary) hypertension ?I10 - Essential (primary) hypertension (ICD-10) Type 2 diabetes mellitus without complications ?E11.9 - Type 2 diabetes mellitus without complications (ICD-10) ST elevation (STEMI) myocardial infarction involving other coronary artery of anterior wall ?I21.09 - ST elevation (STEMI) myocardial infarction involving other coronary artery of anterior wall (ICD-10) Presence of other specified devices ?Z97.8 - Presence of other specified devices (ICD-10) Personal history of (healed) traumatic fracture ?Z87.81 - Personal history of (healed) traumatic fracture (ICD-10) Urinary tract infection, site not specified ?N39.0 - Urinary tract infection, site not specified (ICD-10) Repeated falls ?R29.6 - Repeated falls (ICD-10) Dementia in other diseases classified elsewhere with behavioral disturbance ?F02.81 - Dementia in other diseases classified elsewhere with behavioral disturbance (ICD-10) Pain, unspecified ?R52 - Pain, unspecified (ICD-10) Unspecified urethral stricture, female ?N35.92 - Unspecified urethral stricture, female (ICD-10) Retention of urine, unspecified ?R33.9 - Retention of urine, unspecified (ICD-10) Syncope and collapse ?R55 - Syncope and collapse (ICD-10) Traumatic subdural hemorrhage with loss of consciousness of unspecified duration, subsequent encounter ?S06.5X9D - Traumatic subdural hemorrhage with loss of consciousness of unspecified duration, subsequent encounter (ICD-10) 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, unspecified ?E08.40 - 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, unspecified (ICD-10) Edema, unspecified ?R60.9 - Edema, unspecified (ICD-10) Constipation, unspecified ?K59.00 - Constipation, unspecified (ICD-10) Other specified symptoms and signs involving the digestive system and abdomen ?R19.8 - Other specified symptoms and signs involving the digestive system and abdomen (ICD-10) Alzheimer's disease with late onset ?G30.1 - Alzheimer's disease with late onset (ICD-10) ?F02.80 - Dementia in other diseases classified elsewhere without behavioral disturbance (ICD-10) Surgical History Other specified postprocedural states ?Z98.890 - Other specified postprocedural states (ICD-10) Social History Smoking Status: Never smoker Do you use any of these nicotine containing products: None Second hand tobacco smoke exposure: No How often do you have a drink containing alcohol: never How often do you have six or more drinks on one occasion: Never AUDIT-C Alcohol total score: 0 Non-prescribed substance use: denies use service: No Exam Narrative: Exam Narrative: EXAM GENERAL: Patient appears comfortable and well. Cervical collar in place. EYES: No scleral icterus. LYMPH: No supraclavicular or cervical lymphadenopathy. SKIN: Visible skin seen during exam normal or with benign process only. EXT: No dependent lower extremity pedal edema. HEART: Regular rate and rhythm with no murmurs, rubs, or gallops. LUNGS: Clear to auscultation bilaterally with no crackles or wheezes. ABD: Soft, non tender, non distended. PSYCH: Good eye contact, speech is not pressured. Neurologic cranial nerves 2-12 intact. She is oriented only to person. No focal defects on exam. No obvious injuries. Const: Vital Signs, click to edit/add: Vital Signs - 24 hr 04/07/25 12:30 04/07/25 14:30 Temperature 98.2 F Pulse Rate [Pulse Oximeter] 53 L 78 Respiratory Rate 16 18 Blood Pressure [Ri ght Upper Arm] 121/62 118/78 Pulse Oximetry 96 96 Oxygen Delivery Me thod Room Air Room Air Course Course ED Course: Patient seen and examined. CT head neck CBC electrolytes EKG UA pending. Vital Signs Vital signs: Initial Vital Signs Temperature 98.2 F 04/07/25 12:30 Temperature Source Temporal Artery Scan 04/07/25 12:30 Pulse Rate 53 L 04/07/25 12:30 Respiratory Rate 16 04/07/25 12:30 Blood Pressure 121/62 04/07/25 12:30 Blood Pressure Mean 81 04/07/25 12:30 Pulse Oximetry 96 04/07/25 12:30 Oxygen Delivery Method Room Air 04/07/25 12:30 Vital Signs Temperature 98.2 F 04/07/25 12:30 Pulse Rate 53 L 04/07/25 12:30 Respiratory Rate 16 04/07/25 12:30 Blood Pressure 121/62 04/07/25 12:30 Pulse Oximetry 96 04/07/25 12:30 Oxygen Delivery Method Room Air 04/07/25 12:30 Temperature 98.2 F 04/07/25 12:30 Pulse Rate 78 04/07/25 14:30 Respiratory Rate 18 04/07/25 14:30 Blood Pressure 118/78 04/07/25 14:30 Pulse Oximetry 96 04/07/25 14:30 Oxygen Delivery Method Room Air 04/07/25 14:30 Medical Decision Making MDM Narrative Medical decision making narrative: Patient is a 84-year-old woman who fell at her ch[facility] today. She has cognitive impairment and I believe her to be at her baseline. She hit her head she has hematoma on the posterior scalp. No fractures or bleeding on her head her neck CT. Labs are reassuring. She was unable to give urine sample. We did ambulate her and she is at baseline. But this time I do not believe she has injured but is a fall risk in the future due to her cognitive dysfunction. I did recommend OT assessment at the chcf. Case discussed with family and she can return to the chcf at this time. Lab Data Labs: Lab Results 04/07/25 Range/Units 13:07 WBC 3.59 L (4.50-11.00) K/uL RBC 3.63 L (4.00-5.20) m/uL Hgb 10.9 L (12.0-16.0) gm/dL Hct 34.3 (33.0-51.0) % MCV 95 (80-100) fL MCH 30 (26-34) pg MCHC 32 (32-36) gm/dL RDW Coeff of Latoya 13.5 (11.5-15.5) % Plt Count 135 L (140-440) K/uL Neut % (Auto) 61.0 (42.0-72.0) % Lymph % (Auto) 27.3 (20-44) % [place] % (Auto) 10.0 (0.0-11.0) % Eos % (Auto) 1.4 (0.0-7.0) % Baso % (Auto) 0.0 (0.0-3.0) % Neut # (Auto) 2.20 (1.7-7.0) K/uL Lymph # (Auto) 1.00 (0.90-2.90) K/uL [place] # (Auto) 0.40 (0.00-0.90) K/UL Eos # (Auto) 0.10 (0.00-0.50) K/uL Baso # (Auto) 0.00 (0.00-0.30) K/uL Abs Immat Gran (auto) 0.00 (0.00-0.30) K/uL Imm/Tot Granulo (auto) 0.3 % Sodium 139 (135-149) mmol/L Potassium 4.0 (3.6-5.1) mmol/L Chloride 103 (96-114) mmol/L Carbon Dioxide 25 (20-32) mmol/L Anion Gap 11 (7-15) mEq/L BUN 13 (7-30) mg/dL Creatinine 0.8 (0.5-1.5) mg/dL Estimated GFR 73 ml/min Glucose 117 H (60-115) mg/dL Calcium 9.0 (8.4-10.6) mg/dL Discharge Plan Discharge Clinical Impression: Fall Patient Disposition: Home w/ Parent or Adult Condition: Stable Instructions: Contusion in Adults (ED) Additional Instructions: Consider occupational therapy consultation Resume previous care. Follow-up as scheduled. Activity Level: No Restrictions Discharge Diet: Regular Prescriptions: No Action oseltamivir 75 mg capsule 75 mg PO BID 5 Days Qty: 10 0RF acetaminophen [Acetaminophen Extra Strength] 500 mg tablet 1,000 mg PO Q6H PRN (Reason: pain) Patient Comments: Give 2 tablets every 6 hours for pain albuterol sulfate 90 mcg/actuation HFA aerosol inhaler 1 puff INHALATION Q4H PRN (Reason: bronchospasm) Patient Comments: 1 puff inhale by mouth every 4 hours as needed alum-mag hydroxide-simeth [Maalox Advanced] 200-200-20 mg/5 mL suspension 30 ml PO PRN (Reason: indigestion) Patient Comments: Give 30ml as needed TID aspirin [John Low Dose Aspirin] 81 mg tablet,delayed release (DR/EC) 81 mg PO .QHS Patient Comments: 1 tablet by mouth once a day atorvastatin 20 mg tablet 20 mg PO DAILY bisacodyl 10 mg suppository 10 mg IA PRN (Reason: constipation) Patient Comments: Give 1 suppository rectally as needed fluticasone propionate 50 mcg/actuation spray,suspension 2 spray INTRANASAL BID furosemide 20 mg tablet 10 mg PO DAILY gabapentin 100 mg capsule 200 mg PO TID galantamine 8 mg capsule,ext rel. pellets 24 hr 8 mg PO DAILY ascorbic acid (vitamin C) 1,000 mg tablet 1 g PO BID Patient Comments: 1 tablet by mouth twice a day cholecalciferol (vitamin D3) [Vitamin D3] 50 mcg (2,000 unit) tablet 2,000 unit PO DAILY Patient Comments: 1 tablet by mouth once a day sertraline 100 mg tablet 100 mg PO DAILY fluticasone propion-salmeterol 113-14 mcg/actuation aerosol powdr breath activated 1 inh INHALATION BID isosorbide mononitrate 60 mg tablet extended release 24 hr 60 mg PO DAILY lamotrigine 150 mg tablet 300 mg PO DAILY levothyroxine 88 mcg tablet 88 mcg PO DAILY melatonin 3 mg tablet 3 mg PO .qhs Patient Comments: 1 tablet by mouth at bedtime memantine 14 mg capsule,sprinkle,ER 24hr 14 mg PO DAILY methenamine hippurate 1 gram tablet 1 g PO BID polyethylene glycol 3350 [Miralax] 17 gram/dose powder 17 g PO DAILY Patient Comments: Mix 1 capful of Miralax in water or juice every morning. nitroglycerin 0.4 mg tablet, sublingual 0.4 mg sublingual Q5M PRN sennosides [senna] 8.6 mg tablet 8.6 mg PO DAILY Patient Comments: 1 tablet by mouth every morning Follow Up/Referrals: Provider,Not a Local [Non-Staff, Family Practice] Stand Alone Forms: MyHealth Info Instructions
[2025-04-07 13:32] LABS: Chloride* 103 mmol/L (96-114); Sodium* 139 mmol/L (135-149)
[2025-04-07 13:35] LABS: Anion Gap 11 mEq/L (7-15); Blood Urea Nitrogen* 13 mg/dL (7-30); Carbon Dioxide* 25 mmol/L (20-32); Creatinine* 0.8 mg/dL (0.5-1.5); Estimated Glomerular Filt Rate 73 ml/min; Glucose* 117 mg/dL (60-115)
[2025-04-07 14:25] LABS: Eosinophils Percent Auto 1.4 % (0.0-7.0); Hematocrit 34.3 % (33.0-51.0); Hemoglobin* 10.9 gm/dL (12.0-16.0); Immature Granulocytes Pct Auto 0.3 %; Lymphocytes Percent Auto 27.3 % (20-44); Mean Corpuscular HGB Conc 32 gm/dL (32-36); Mean Corpuscular Hemoglobin 30 pg (26-34); Mean Corpuscular Volume 95 fL (80-100); Platelet Count* 135 K/uL (140-440); RDW Coefficient of Variation % 13.5 % (11.5-15.5); Red Blood Count 3.63 m/uL (4.00-5.20); White Blood Count* 3.59 K/uL (4.50-11.00)
[2025-04-07 14:26] LABS: Slide Review Reflex No
[2025-04-07 14:30] VITALS: BP 118/78; PULSE 78; RESP 18; O2SAT 96
--- NOTE | 2025-04-07 14:47 | ED.NURSE ---
Patient did road test with walker. Was able to ambulate with stand by assist with no issue or pain.
== END 2025-04-07 14:53 | disposition home or self-care (01) ==
PROVIDERS: Emergency Provider Internal Medicine; PCP Nurse Practitioner Gerontology
DX: S00.93XA Contusion of unspecified part of head, initial encounter (principal); F03.90 Unspecified dementia, unspecified severity, without behavioral disturbance, psychotic disturbance, mood disturbance, and anxiety; W19.XXXA Unspecified fall, initial encounter; Z91.81 History of falling
CPT/HCPCS: 36415; 70450; 72125; 80048; 81003; 85025; 99283; 99285

== ENCOUNTER 2025-04-13 17:17 | Outpatient (REF) | payer MEDICARE, SELFPAY ==
--- OUTSIDE RECORDS SUMMARY | 2019-12-05 06:03 | XMS_ITS | Continuity of Care Document ---
Author Organization [facility] Address [address] [address] [place] [address] Phone Care Team Providers Care Occ Med Physician Name Role Phone Magdaleno Anna MD Unavailable Unavailable Procedures Procedure Date Colonoscopy W/Submucosal Injection Colonoscopy Flex; W/remov Les- 16 Advance Directives Directive Yes / No Effective Date File Name No Information Encounters Encounter Description Practice Location Reason(s) For Visit Diagnoses Date Provider Providers Copied on Encounter [facility], [address] [address], [place], [place], [id number], [place] tel:[phone] [facility] No Information Wilfrido Dolan. [address] [place] [address], [facility] [address], [place], [place], [address], [place]. tel:[phone] [facility], [address] [address], [place], [place], [address], [place] tel:[phone] [facility] No Information Mohan Sands. [address] [place] [address], [facility] [address], [place], [place], [address], [place]. tel:[phone] Referring Provider: Julito Martin, [address] [place], [address]. tel:[phone] Family History Family Member Type Diagnosis Age At Onset No Information Payers Payer name Insurance type Covered alliance party ID Authoriza tion(s) Blue Cross [place] Blue BL [id number] Social History Type Description Quantity Date Captured [...]
--- OUTSIDE RECORDS SUMMARY | 2019-12-05 06:03 | XMS_ITS | Continuity of Care Document ---
Author Organization [facility] Address [address] [address] [place] [address] Phone Care Team Providers Care Rn Emergency Name Role Phone Magdaleno Anna MD Unavailable Unavailable Procedures Procedure Date Colonoscopy W/Submucosal Injection Colonoscopy Flex; W/remov Les- 16 Advance Directives Directive Yes / No Effective Date File Name No Information Encounters Encounter Description Practice Location Reason(s) For Visit Diagnoses Date Provider Providers Copied on Encounter [facility], [address] [address], [place], [place], [address], [place] tel:[phone] [facility] No Information Wilfrido Dolan. [address] [place] [address], [facility] [address], [place], [place], [address], [place]. tel:[phone] [facility], [address] [address], [place], [place], [address], [place] tel:[phone] [facility] No Information Mohan Sands. [address] [place] [address], [facility] [address], [place], [place], [address], [place]. tel:[phone] Referring Provider: Julito Martin, [address] [place], [address]. tel:[phone] Family History Family Member Type Diagnosis Age At Onset No Information Payers Payer name Insurance type Covered democrat ID Authoriza tion(s) Blue Cross [place] Blue BL [id number] Social History Type Description Quantity Date Captured [...]
--- OUTSIDE RECORDS SUMMARY | 2025-04-13 17:29 | XMS_ITS | Encounter Summary ---
Author Organization [place] Address [address] [facility] [place] [address] Care Team Providers Care Flotation Tender Name Role Phone Julito Banuelos MD Primary Care Provider [phone] Julito Banuelos MD Unavailable Aleshia Henriquez RD Unavailable Unavailable Mary Kay Jones [facility] Unavailable Unavailable Susannah Blankenship [facility] Unavailable Carolyn Huynh [facility] Unavailable [phone] Vika Kevin APRN PAEDODONTIST Unavailable + Marilyn Willard MD Unavailable Carie Varela DO Unavailable [phone] Maylin May NP Unavailable [phone] Marisa Hernandez RN Unavailable Unavailable Vilma Long MD Unavailable Yasmeen Pendleton [facility] Unavailable Cole George Unavailable Fletcher Russell Unavailable Unavailable Bautista Casey MD Unavailable Jasmyn Oliver CHW Unavailable [phone] Vika Kevin APRN PAEDODONTIST Primary Care Prov ider Vika Kevin APRN [facility] Primary Care Prov ider Yasmeen Pendleton [facility] Unavailable + [phone] Vika Kevin APRN [facility] Primary Care Prov ider Reason for Visit * Reason Onset Date Comments Refill Request 09/22/2019 Encounter Details Date Type Department Care Team (Late st Contact Info) Description 09/22/2019 MyC Refill [facility] [address] [place] [phone] Carie Varela DO [address] [place], [place] [address] Refill Request Social History Tobacco Use Types [...] on file Legal 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 Gender Identity Not on file Sexual [...] hypertension Coronary artery disease involving [place] coronary artery of [place] heart without angina pectoris documented in this encounter Additional Health Concerns Infection Onset Date Last Indicated Resolved Time Rule Out COVID-19 07/25/2020 07/25/2020 07/26/2020 3:02 PM CDT Rule Out COVID-19 12/04/2020 12/04/2020 12/05/2020 6:04 PM LEAD PROCESS ENGINEER Assessment Noted Time PHQ-9 Depression Total Score: 8 07/18/20 19 12:06 PM CDT documented as of this encounter Care Teams Flotation Tender Relationship Specialty Start Date End Date Julito Banuelos MD [address] [place] [id number] PCP - General Family Practice 09/12/15 09/23/21 Vika Kevin APRN PAEDODONTIST [address] [place] [address] [id number] PCP - General Nurse Practitioner - Family 09/24/21 03/05/22 Vika Kevin APRN PAEDODONTIST [address] [place] [address] [id number] PCP - General Nurse Practitioner - Family 03/18/22 06/18/22 Vika Kevin APRN PAEDODONTIST [address] [place] [address] [id number] PCP - General Nurse Practitioner - Family 07/24/22 Julito Banuelos MD [address] [place] [address] [id number] Assigned PCP 02/17/16 07/21/[address] [place] [address] Farm Operations Technical Director Dietitian, Registered 04/14/19 Mary Kay Jones [facility] Pharmacist 08/01/19 04/20/20 Susannah Blankenship [facility] [address] [place] [address] [address] [place], [place] [address] Pharmacist Pharmacist 08/08/19 04/15/21 Carolyn Huynh [facility] [address] [place], [place] [address] Pharmacist Pharmacist 06/25/20 04/15/21 KevinVikalotte, HVAC DESIGN MECHANICAL ENGINEER PAEDODONTIST [address] [place], [place] [address] Assigned PCP 07/22/20 11/16/24 Marilyn Willard MD [address] [facility] [address] [place], [place] [address] Assigned Surgical Provider 08/17/20 08/16/24 Carie Varela DO [address] [place] [address] Assigned Heart and Vascular Provider 08/17/20 01/19/21 Maylin May NP [address] [place], [place] [id number] Assigned Pediatric Specialist Provider 12/16/20 06/13/22 Marisa Rodrigues, RN Clinic Regulatory Intern 01/15/21 02/26/21 Vilma Long MD [address] [place] [address] Assigned Heart and Vascular Provider 01/20/21 07/20/21 Yasmeen Pendleton [facility] [address] [place] [address] Pharmacist Pharmacist 06/04/21 01/15/22 Cole George LISW Lead Regulatory Intern 06/13/21 10/07/21 Fletcher Up Community Health Worker 06/13/21 09/12/21 Bautista aCsey MD [address] [place] [address] Assigned Heart and Vascular Provider 07/21/21 01/16/23 Jasmyn Oliver CHW Community Health Worker 09/13/21 10/07/21 Yasmeen Pendleton [facility] [address] [place] [address] Assigned MTM Pharmacist 03/22/22 01/02/23 documented as of this encounter
--- OUTSIDE RECORDS SUMMARY | 2025-04-13 17:29 | XMS_ITS | Encounter Summary ---
Author Organization [place] Address [address] [facility] [place] [address] Care Team Providers Care Geodetic Surveyor Technologist Name Role Phone Julito Banuelos MD Primary Care Provider [phone] Julito Banuelos MD Unavailable Aleshia Henriquez RD Unavailable Unavailable Mary Kay Jones [facility] Unavailable Unavailable Susannah Blankenship [facility] Unavailable Carolyn Huynh [facility] Unavailable [phone] Vika Kevin APRN BRICKMASON HELPER Unavailable + Marilyn Willard MD Unavailable Carie Varela DO Unavailable [phone] Maylin Mya NP Unavailable [phone] Marisa Hernandez RN Unavailable Unavailable Vilma Long MD Unavailable Yasmeen Pendleton [facility] Unavailable Cole George Unavailable Fletcher Russell Unavailable Unavailable Bautista Casey MD Unavailable Jasmyn Oliver CHW Unavailable [phone] Vika Kevin APRN BRICKMASON HELPER Primary Care Prov ider Vika Kevin APRN, CNP Primary Care Prov ider Yasmeen Pendleton [facility] Unavailable [phone] Vika Kevin APRN BRICKMASON HELPER Primary Care Prov ider Encounter Details Date Type Department Care Team (Late st Contact Info) Description 08/01/2019 MyC Medical Advice [address] [place] [phone] Mary Kay Jones, [facility] Social History Tobacco Use Types Packs/Day Years [...] on file Legal 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 DEAN 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 Gender Identity Not on file Sexual Orientation [...] Out COVID-19 12/04/2020 12/04/2020 12/05/2020 6:04 PM DEAN OF STUDENTS Assessment Noted Time PHQ-9 Depression Total Score: 8 07/18/20 19 12:06 PM CDT documented as of this encounter Care Teams Geodetic Surveyor Technologist Relationship Specialty Start Date End Date Julito Banuelos MD [address] [place] [id number] PCP - General Family Practice 09/12/15 09/23/21 Vika Kevin APRN [facility] [address] [place] [id number] PCP - General Nurse Practitioner - Family 09/24/21 03/05/22 Vika Kevin APRN BRICKMASON HELPER [address] [place] [id number] PCP - General Nurse Practitioner - Family 03/18/22 06/18/22 Vika Kevin APRN BRICKMASON HELPER [address] [place] [address] [phone] PCP - General Nurse Practitioner - Family 07/24/22 Julito Banuelos MD [address] [place] [address] [id number] Assigned PCP 02/17/16 07/21/[address] [place] [phone] Superintendent Police Dietitian, Registered 04/14/19 Mary Kay Jones, [facility] Pharmacist 08/01/19 04/20/20 Susannah Blankenship, [facility] [address] [place] [address] [address] [place] [address] Pharmacist Pharmacist 08/08/19 04/15/21 Carolyn Huynh [facility] [address] [place], [place] [phone] Pharmacist Pharmacist 06/25/20 04/15/21 Vika Kevin APRN BRICKMASON HELPER [address] [place] [id number] Assigned PCP 07/22/20 11/16/24 Marilyn Willard MD [address] [facility] [address] [place] [address] Assigned Surgical Provider 08/17/20 08/16/24 Carie Varela DO [address] [place] [address] Assigned Heart and Vascular Provider 08/17/20 01/19/21 Maylin May, JENNY [address] [place], [place] [id number] Assigned Pediatric Specialist Provider 12/16/20 06/13/22 Marisa Rodrigues RN Clinic Junior Electrical Engineer 01/15/21 02/26/21 Vilma Long MD [address] [place] [address] Assigned Heart and Vascular Provider 01/20/21 07/20/21 Yasmeen Pendleton [facility] [address] [place] [id number] Pharmacist Pharmacist 06/04/21 01/15/22 Cole George LISW Lead Junior Electrical Engineer 06/13/21 10/07/21 Fletcher Up Community Health Worker 06/13/21 09/12/21 Bautista Casey MD [address] [place] [address] Assigned Heart and Vascular Provider 07/21/21 01/16/23 Jasmyn Oliver CHW Community Health Worker 09/13/21 10/07/21 Yasmeen Pendleton [facility] [address] [place] [address] Assigned MTM Pharmacist 03/22/22 01/02/23 documented as of this encounter
--- OUTSIDE RECORDS SUMMARY | 2025-04-13 17:29 | XMS_ITS | Encounter Summary ---
Author Organization [place] Address [address] [facility] [place] [address] Care Team Providers Care Vice President Of Brand Management Name Role Phone Andrew Lu MD Primary Care Provider [phone] Niko Resendiz MD Primary Care Provider Carlie Mac MD Primary Care Provide r Angella Mendieta MD Primary Care Provider Julito Banuelos MD Primary Care Provider [phone] Julito Banuelos MD Unavailable Julito Banuelos MD Unavailable Aleshia Henriquez RD Unavailable Unavailable Mary Kay Jones [facility] Unavailable Unavailable Susannah Blankenship [facility] Unavailable [phone] Carolyn Huynh [facility] Unavailable [phone] Vika Kevin APRN CORPORATE LEGAL ASSISTANT Unavailable + Marilyn Willard MD Unavailable [phone] Carie Varela DO Unavailable [phone] Maylin May NP Unavailable [phone] Marisa Rodrigues RN Unavailable Unavailable Vilma Long MD Unavailable + [phone] Yasmeen Pendleton [facility] Unavailable [phone] Cole George Unavailable Fletcher Russell Unavailable Unavailable Bautista Casey MD Unavailable [phone] DemetriusJasmyn wright [facility] Unavailable [phone] Vika Kevin APRN [facility] Primary Care Prov ider Vika Kevin APRN [facility] Primary Care Prov ider Yasmeen Pendleton [facility] Unavailable [phone] [facility] Primary Care Prov ider Encounter Details Date Type Department Care Team (Late st Contact Info) Description 11/07/2012 MyC Medical Advice [address] [phone] Andrew Lu MD XXX RETIRED XXX [address] [phone] Social History Tobacco Use Types Packs/Day Years Used Date Smoking Tobacco: Former Cigarettes 0.3 15 0 10/26/1961 - 10/26/1976 Smokeless Tobacco: Never Alcohol Use Standard Drinks/Week Comments Yes 0 (1 standard drink = 0.6 oz pur e alcohol) 1-2 glasses of wine weekly Comments No Sex and Gender Information Value Date Recorded Sex Assigned at Not on file Legal 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 AUDIT PARTNER Gender Identity Not on file Sexual Orientation [...] Out COVID-19 12/04/2020 12/04/2020 12/05/2020 6:04 PM AUDIT PARTNER documented as of this encounter Care Teams Vice President Of Brand Management Relationship Specialty Start Date End Date Andrew Lu MD XXX RETIRED XXX [address] [place] [phone] PCP - General 12/10/01 01/10/14 Niko Resendiz MD [address] [place] [address] PCP - General Internal Medicine 01/11/14 01/29/14 Carlie Mac MD [address] [place] [address] PCP - General Pediatrics 01/30/14 07/17/15 Angella Mendieta MD [address] [place] [address] PCP - General Family Practice 07/18/15 09/11/15 Julito Banuelos MD [address] [place] [address] PCP - General Family Practice 09/12/15 09/23/21 Julito Banuelos MD [address] [place] [address] PCP - Assigned PCP 02/17/16 12/28/18 Vika Kevin APRN CORPORATE LEGAL ASSISTANT [address] [place] [address] PCP - General Nurse Practitioner - Family 09/24/21 03/05/22 Viak Kevin APRN CORPORATE LEGAL ASSISTANT [address] [place] [address] PCP - General Nurse Practitioner - Family 03/18/22 06/18/22 Vika Kevin, JAIME CORPORATE LEGAL ASSISTANT [address] [place] [address] 812702 PCP - General Nurse Practitioner - Family 07/24/22 Julito Banuelos MD [address] [place] [address] [id number] Assigned PCP 02/17/16 07/21/[address] [place] [address] Liability Claims Adjuster Dietitian, Registered 04/14/19 Mary Kay Jones, [facility] Pharmacist 08/01/19 04/20/20 Susannah Blankenship, [facility] [address] [facility] [address] [place], [place] [address] Pharmacist Pharmacist 08/08/19 04/15/21 Carolyn Huynh, [facility] [address] [place], [place] [address] Pharmacist Pharmacist 06/25/20 04/15/21 Vika Kevin, JAIME CORPORATE LEGAL ASSISTANT [address] [place] [address] 800142 Assigned PCP 07/22/20 11/16/24 Marilyn Willard MD [address] [facility] [address] [place], [place] [address]485 Assigned Surgical Provider 08/17/20 08/16/24 Carie Varela DO [address] [place] [address] Assigned Heart and Vascular Provider 08/17/20 01/19/21 Maylin May NP [address] [place] [address] Assigned Pediatric Specialist Provider 12/16/20 06/13/22 Marisa Rodrigues, RN Clinic Wellness Coach 01/15/21 02/26/21 Vilma Long MD [address] [place] [address] Assigned Heart and Vascular Provider 01/20/21 07/20/21 Yasmeen Pendleton [facility] [address] [place] [address] Pharmacist Pharmacist 06/04/21 01/15/22 Cole George LISW Lead Wellness Coach 06/13/21 10/07/21 Fletcher Up Community Health Worker 06/13/21 09/12/21 Bautista Casey MD [address] [place] [address] Assigned Heart and Vascular Provider 07/21/21 01/16/23 Jasmyn Oliver CHW Community Health Worker 09/13/21 10/07/21 Yasmeen Pendleton [facility] [address] [place] [address] Assigned MTM Pharmacist 03/22/22 01/02/23 documented as of this encounter
--- OUTSIDE RECORDS SUMMARY | 2025-04-13 17:29 | XMS_ITS | Encounter Summary ---
Author Organization [place] Address [address] [place] [address] Care Team Providers Care Automotive Service Director Name Role Phone uJlito Banuelos MD Primary Care Provider [phone] Julito Banuelos MD Unavailable Aleshia Henriquez RD Unavailable Unavailable Mary Kay Jones [facility] Unavailable Unavailable Susannah Blankenship [facility] Unavailable Carolyn Huynh [facility] Unavailable [phone] Vika Kevin APRN SOFTWARE ARCHITECT Unavailable + Marilyn Wlilard MD Unavailable [phone] Carie Varela DO Unavailable [phone] Maylin May NP Unavailable [phone] Marisa Hernandez RN Unavailable Unavailable Vilma Long MD Unavailable Yasmeen Pendleton [facility] Unavailable Cole George Unavailable Fletcher Russell Unavailable Unavailable Bautista Casey MD Unavailable Jasmyn Oliver CHW Unavailable [phone] Vika Kevin APRN SOFTWARE ARCHITECT Primary Care Prov ider Vika Kevin APRN, CNP Primary Care Prov ider Yasmeen Pendleton [facility] Unavailable [phone] Vika Kevin APRN SOFTWARE ARCHITECT Primary Care Prov ider Encounter Details Date Type Department Care Team (Late st Contact Info) Description 08/16/2019 MyC Medical Advice [address] [place] [phone] Mary Kay Jones, [facility] Social History Tobacco Use Types Packs/Day [...] on file 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 Gender Identity Not on file Sexual [...] Out COVID-19 12/04/2020 12/04/2020 12/05/2020 6:04 PM OYSTER GRADER Assessment Noted Time PHQ-9 Depression Total Score: 8 07/18/20 19 12:06 PM CDT documented as of this encounter Care Teams Automotive Service Director Relationship Specialty Start Date End Date Julito Banuelos MD [address] [place] [address] PCP - General Family Practice 09/12/15 09/23/21 Vika Kevin APRN [facility] [address] [place] [address] PCP - General Nurse Practitioner - Family 09/24/21 03/05/22 Vika Kevin APRN SOFTWARE ARCHITECT [address] [place] [address] PCP - General Nurse Practitioner - Family 03/18/22 06/18/22 Vika Kevin APRN SOFTWARE ARCHITECT [address] [place] [address] 135752 PCP - General Nurse Practitioner - Family 07/24/22 Julito Banuelos MD [address] [place] [address] [phone] Assigned PCP 02/17/16 07/21/[address] [place] [address] [address] [address] B[address]iff Dietitian, Registered 04/14/19 Mary Kay Jones, [facility] Pharmacist 08/01/19 04/20/20 Susannah Blankenship, [facility] [address] [place] [address] [address] [place] [address] Pharmacist Pharmacist 08/08/19 04/15/21 Carolyn Huynh [facility] [address] [place], [place] [address] Pharmacist Pharmacist 06/25/20 04/15/21 Vika Kevin APRN SOFTWARE ARCHITECT [address] [place] [address] Assigned PCP 07/22/20 11/16/24 Marilyn Willard MD [address] [facility] [address] [place] [address] Assigned Surgical Provider 08/17/20 08/16/24 Carie Varela DO [address] [place] [address] Assigned Heart and Vascular Provider 08/17/20 01/19/21 Maylin May, JENNY [address] [place], [place] [address] Assigned Pediatric Specialist Provider 12/16/20 06/13/22 Marisa Rodrigues RN Clinic Director Professional Services 01/15/21 02/26/21 Vilma Long MD [address] [place] [address] Assigned Heart and Vascular Provider 01/20/21 07/20/21 Yasmeen Pendleton [facility] [address] [place] [address] Pharmacist Pharmacist 06/04/21 01/15/22 Cole George LISW Lead Director Professional Services 06/13/21 10/07/21 Fletcher Up Community Health Worker 06/13/21 09/12/21 Bautista Casey MD [address] [place] [address] Assigned Heart and Vascular Provider 07/21/21 01/16/23 Jasmyn Oliver CHW Community Health Worker 09/13/21 10/07/21 Yasmeen Pendleton [facility] [address] [place] [address] Assigned MTM Pharmacist 03/22/22 01/02/23 documented as of this encounter
--- OUTSIDE RECORDS SUMMARY | 2025-04-13 17:29 | XMS_ITS | Encounter Summary ---
Author Organization [place] Address [address] [place] [address] Care Team Providers Care Central Office Operator Supervisor Name Role Phone Julito Banuelos MD Primary Care Provider [phone] Julito Banuelos MD Unavailable Aleshia Henriquez RD Unavailable Unavailable Mary Kay Jones [facility] Unavailable Unavailable Susannah Blankenship [facility] Unavailable [phone] Carolyn Huynh [facility] Unavailable [phone] Vika Kevin APRN SECURITY SYSTEM ADMINISTRATOR Unavailable + Marilyn Willard MD Unavailable Carie Varela DO Unavailable [phone] Maylin May NP Unavailable [phone] Marisa Hernandez RN Unavailable Unavailable Vilma Long MD Unavailable Yasmeen Pendleton [facility] Unavailable Cole George Unavailable Fletcher Russell Unavailable Unavailable Bautista Casey MD Unavailable Jasmyn Oliver CHW Unavailable [phone] Vika Kevin APRN SECURITY SYSTEM ADMINISTRATOR Primary Care Prov ider Vika Kevin APRN [facility] Primary Care Prov ider Yasmeen Pendleton [facility] Unavailable [phone] Vika Kevin APRN [facility] Primary Care Prov ider Reason for Visit * Reason Onset Date Comments Refill Request 09/11/2019 Encounter Details Date Type Department Care Team (Late st Contact Info) Description 09/11/2019 MyC Refill [address] [place] [address] Julito Banuelos MD [address] [place] [address] Refill Request Social History Tobacco [...] on file Legal 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 WOOD CARVER HAND Gender Identity Not on file Sexual Orientation Not on file Occupation Industry Job Start Date Job End Date Not on file Not on file Not on file Not on file documented as of this encounter Miscellaneous Notes * Telephone Encounter - Shanelle Corona RN - 09/13/2019 11:06 AM WOOD CARVER HAND This was discontinued due to side effects. Sent mychart to patient asking if she is still taking. Ruth Muñoz RN [facility] [phone] CARVER HAND * Telephone Encounter - Sandra Jesús - 09/12/2019 9:28 AM CST Requested Prescriptions Pending Prescriptions Disp Refills ??? donepezil (ARICEPT) 5 MG tablet Last Written Prescription Date: 08.08.19 Last Fill Quantity: 30 tablet, # refills: 3 Last office visit: 08/08/2019 with prescribing provider: Julito Banuelos MD Future Office Visit: Next 5 appointments (look out 90 days) Sep 12, 2019 2:00 PM WOOD CARVER HAND SHORT with Susannah Blankenship [facility] ([facility] [address] 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) documented in this encounter Additional Health Concerns Infection Onset Date Last Indicated Resolved Time Rule Out COVID-19 07/25/2020 07/25/2020 07/26/2020 3:02 PM CDT Rule Out COVID-19 12/04/2020 12/04/2020 12/05/2020 6:04 PM WOOD CARVER HAND Assessment Noted Time PHQ-9 Depression Total Score: 8 07/18/20 19 12:06 PM CDT documented as of this encounter Care Teams Central Office Operator Supervisor Relationship Specialty Start Date End Date Julito Banuelos MD [address] [place] [address] [phone] PCP - General Family Practice 09/12/15 09/23/21 Vika Kevin APRN SECURITY SYSTEM ADMINISTRATOR [address] [place] [address] [phone] PCP - General Nurse Practitioner - Family 09/24/21 03/05/22 Vika Kevin APRN SECURITY SYSTEM ADMINISTRATOR [address] [place] [address] PCP - General Nurse Practitioner - Family 03/18/22 06/18/22 Vika Kevin APRN SECURITY SYSTEM ADMINISTRATOR [address] [place] [address] [phone] PCP - General Nurse Practitioner - Family 07/24/22 Julito Banuelos MD [address] [place] [address] [phone] Assigned PCP 02/17/16 07/21/[address] [place] [address] Shipyard Supervisor Dietitian, Registered 04/14/19 Mary Kay Jonse, [facility] Pharmacist 08/01/19 04/20/20 Susannah Blankenship, [facility] [address] [place] [address] 8[address] [place] [address] Pharmacist Pharmacist 08/08/19 04/15/21 Carolyn Huynh [facility] [address] [place] [address] Pharmacist Pharmacist 06/25/20 04/15/21 Vika Kevin APRN SECURITY SYSTEM ADMINISTRATOR [address] [place] [address] Assigned PCP 07/22/20 11/16/24 Marilyn Willard MD 420 [facility] [address] [place] [address] Assigned Surgical Provider 08/17/20 08/16/24 Carie Varela DO [address] [place] [address] Assigned Heart and Vascular Provider 08/17/20 01/19/21 Maylin May NP [address] [place] [address] Assigned Pediatric Specialist Provider 12/16/20 06/13/22 Marisa Rodrigues, RN Clinic Gas Worker 01/15/21 02/26/21 Vilma Long MD [address] [place] [address] Assigned Heart and Vascular Provider 01/20/21 07/20/21 Yasmeen Pendleton [facility] [address] [place] [address] Pharmacist Pharmacist 06/04/21 01/15/22 Cole George LISW Lead Gas Worker 06/13/21 10/07/21 Fletcher Up Community Health Worker 06/13/21 09/12/21 Bautista Casey MD [address] [place] [address] Assigned Heart and Vascular Provider 07/21/21 01/16/23 Jasmyn Oliver CHW Community Health Worker 09/13/21 10/07/21 Yasmeen Pendleton [facility] [address] [place] [address] Assigned MTM Pharmacist 03/22/22 01/02/23 documented as of this encounter
--- OUTSIDE RECORDS SUMMARY | 2025-04-13 17:29 | XMS_ITS | Encounter Summary ---
Author Organization [place] Address [address] [facility] [place] [address] Care Team Providers Care Black Ash Burner Operator Name Role Phone Julito Banuelos MD Primary Care Provider [phone] Julito Banuelos MD Unavailable Aleshia Henriquez RD Unavailable Unavailable Mary Kay Jones [facility] Unavailable Unavailable Susannah Blankenship [facility] Unavailable Carolyn Huynh [facility] Unavailable [phone] Vika Kevin APRN ISOBUTYLENE OPERATOR CHIEF Unavailable + Marilyn Willard MD Unavailable Carie Vaerla DO Unavailable [phone] Maylin May NP Unavailable [phone] Marisa Hernandez RN Unavailable Unavailable Vilma Long MD Unavailable Yasmeen Pendleton [facility] Unavailable Cole George Unavailable Fletcher Russell Unavailable Unavailable Bautista Casey MD Unavailable Jasmyn Oliver CHW Unavailable [phone] Vika Kevin APRN ISOBUTYLENE OPERATOR CHIEF Primary Care Prov ider Vika Kevin APRN [facility] Primary Care Prov ider Yasmeen Pendleton [facility] Unavailable [phone] Vika Kevin APRN [facility] Primary Care Prov ider Reason for Visit * Reason Onset Date Comments Refill Request 09/12/2019 Encounter Details Date Type Department Care Team (Late st Contact Info) Description 09/12/2019 MyC Refill [facility] [address] [facility] [address] [place] [phone] Carie Varela DO [address] [place], [place] [address] Refill Request Social History Tobacco Use Types [...] file Legal 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 Gender Identity Not on file Sexual [...] Unspecified essential hypertension 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 documented in this encounter Additional Health Concerns Infection Onset Date Last Indicated Resolved Time Rule Out COVID-19 07/25/2020 07/25/2020 07/26/2020 3:02 PM CDT Rule Out COVID-19 12/04/2020 12/04/2020 12/05/2020 6:04 PM GAS BOOSTER ENGINEER Assessment Noted Time PHQ-9 Depression Total Score: 8 07/18/20 19 12:06 PM CDT documented as of this encounter Care Teams Black Ash Burner Operator Relationship Specialty Start Date End Date Julito Banuelos MD [address] [place] [address] PCP - General Family Practice 09/12/15 09/23/21 Vika Kevin APRN ISOBUTYLENE OPERATOR CHIEF [address] [place] [address] 875492 PCP - General Nurse Practitioner - Family 09/24/21 03/05/22 Vika Kevin APRN ISOBUTYLENE OPERATOR CHIEF [address] [place] [address] [phone] PCP - General Nurse Practitioner - Family 03/18/22 06/18/22 Vika Kevin APRN ISOBUTYLENE OPERATOR CHIEF [address] [place] [address] 636502 PCP - General Nurse Practitioner - Family 07/24/22 Julito Banuelos MD [address] [place] [address] 936362 Assigned PCP 02/17/16 07/21/[address] [place] [address] Drying Unit Felting Machine Operator Dietitian, Registered 04/14/19 Mary Kay Jones [facility] Pharmacist 08/01/19 04/20/20 Susannah Blankenship [facility] [address] [place] [address] [address] [place], [place] [address] Pharmacist Pharmacist 08/08/19 04/15/21 Carolyn Huynh [facility] [address] [place], [place] [address]167 Pharmacist Pharmacist 06/25/20 04/15/21 KevinVikalotte, LOCK INSTALLER ISOBUTYLENE OPERATOR CHIEF [address] [place], [place] 0[address] Assigned PCP 07/22/20 11/16/24 Marilny Willard MD 420 [facility] [address] [place], [place] 7[address] Assigned Surgical Provider 08/17/20 08/16/24 Carie Varela DO [address] [place] [address] Assigned Heart and Vascular Provider 08/17/20 01/19/21 Maylin May NP [address] [place], [place] [id number] Assigned Pediatric Specialist Provider 12/16/20 06/13/22 Marisa Rodrigues, RN Clinic Cap Machine Operator 01/15/21 02/26/21 Vilma Long MD [address] [place] [address] Assigned Heart and Vascular Provider 01/20/21 07/20/21 Yasmeen Pendleton [facility] [address] [place] [address] Pharmacist Pharmacist 06/04/21 01/15/22 Cole George LISW Lead Cap Machine Operator 06/13/21 10/07/21 Fletcher Up Community Health Worker 06/13/21 09/12/21 Bautista Casey MD [address] [place] [address] Assigned Heart and Vascular Provider 07/21/21 01/16/23 Jasmyn Oliver CHW Community Health Worker 09/13/21 10/07/21 Yasmeen Pendleton [facility] [address] [place] [address] Assigned MTM Pharmacist 03/22/22 01/02/23 documented as of this encounter
--- OUTSIDE RECORDS SUMMARY | 2025-04-13 17:29 | XMS_ITS | Encounter Summary ---
Author Organization [place] Address [address] [facility] [place] [address] Care Team Providers Care Pulverizer Feeder Name Role Phone Julito Banuelos MD Primary Care Provider [phone] Julito Banuelos MD Unavailable Aleshia Henriquez RD Unavailable Unavailable Mary Kay Jones [facility] Unavailable Unavailable Susannah Blankenship [facility] Unavailable [phone] Carolyn Huynh [facility] Unavailable [phone] Vika Kevin APRN BRASS BUFFER Unavailable + Marilyn Willard MD Unavailable Carie Varela DO Unavailable +[phone] Maylin May NP Unavailable [phone] Marisa Hernandez RN Unavailable Unavailable Vilma Long MD Unavailable Yasmeen Pendleton [facility] Unavailable Cole George Unavailable Fletcher Russell Unavailable Unavailable Bautista Casey MD Unavailable Jasmyn Oliver CHW Unavailable [phone] Vika Kevin APRN BRASS BUFFER Primary Care Prov ider Vika Kevin APRN [facility] Primary Care Prov ider Yasmeen Pendleton [facility] Unavailable + [phone] Vika Kevin APRN [facility] Primary Care Prov ider Reason for Visit * Reason Onset Date Comments Refill Request 09/22/2019 Encounter Details Date Type Department Care Team (Late st Contact Info) Description 09/22/2019 MyC Refill [facility] [address] [facility] [address] [place] [phone] Carie Varela DO [address] [place], [place] [id number] Refill Request Social History Tobacco Use Types [...] on file Legal 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 Gender Identity Not on file Sexual Orientation Not on file Occupation Industry Job Start Date Job End Date Not on file Not on file Not on file Not on file documented as of this encounter Plan of Treatment Not on file documented as of this encounter Visit Diagnoses Diagnosis Coronary artery disease involving [place] coronary artery of [place] heart without angina pectoris Unstable angina (H) Intermediate coronary syndrome documented in this encounter Additional Health Concerns Infection Onset Date Last Indicated Resolved Time Rule Out COVID-19 07/25/2020 07/25/2020 07/26/2020 3:02 PM CDT Rule Out COVID-19 12/04/2020 12/04/2020 12/05/2020 6:04 PM VENEER REPAIRER MACHINE Assessment Noted Time PHQ-9 Depression Total Score: 8 07/18/20 19 12:06 PM CDT documented as of this encounter Care Teams Pulverizer Feeder Relationship Specialty Start Date End Date Julito Banuelos MD [address] [place] [address] 43071 PCP - General Family Practice 09/12/15 09/23/21 Vika Kevin APRN BRASS BUFFER [address] [place] [address] 50490 PCP - General Nurse Practitioner - Family 09/24/21 03/05/22 Vika Kevin APRN [facility] BU[facility] [address] [place] [address] 34381 PCP - General Nurse Practitioner - Family 03/18/22 06/18/22 Vika Kevin APRN BRASS BUFFER [address] [place] [address] 11671 PCP - General Nurse Practitioner - Family 07/24/22 Julito Banuelos MD [address] [place] [address] 82743 Assigned PCP 02/17/16 07/21/[address] [place] [address] 40696 Structures Engineer Dietitian, Registered 04/14/19 Mary Kay Jones [facility] Pharmacist 08/01/19 04/20/20 Susannah Blankenship [facility] [address] [place] [address] 812 [place] [address] Pharmacist Pharmacist 08/08/19 04/15/21 Carolyn Huynh [facility] [address] [place] [address] Pharmacist Pharmacist 06/25/20 04/15/21 Vika Kevin, RETAIL ZONE SPECIALIST [facility] [address] [place], [place] 5[address]32 Assigned PCP 07/22/20 11/16/24 Marilyn Willard MD [address] [facility] [address] [place], [place] [address] Assigned Surgical Provider 08/17/20 08/16/24 Carie Varela DO [address] [place] [address] Assigned Heart and Vascular Provider 08/17/20 01/19/21 Maylin May NP [address] [place], [place] [id number] Assigned Pediatric Specialist Provider 12/16/20 06/13/22 Marisa Rodrigues, RN Clinic Rod Pointer 01/15/21 02/26/21 Vilma Long MD [address] [place] [address] Assigned Heart and Vascular Provider 01/20/21 07/20/21 Yasmeen Pendleton [facility] [address] [place] [address] Pharmacist Pharmacist 06/04/21 01/15/22 Cole George LISW Lead Rod Pointer 06/13/21 10/07/21 Fletcher Up Community Health Worker 06/13/21 09/12/21 Bautista Casey MD [address] [place] [address] Assigned Heart and Vascular Provider 07/21/21 01/16/23 Jasmyn Oliver CHW Community Health Worker 09/13/21 10/07/21 Yasmeen Pendleton, [facility] [address] [place], [place] [address] Assigned MTM Pharmacist 03/22/22 01/02/23 documented as of this encounter
--- OUTSIDE RECORDS SUMMARY | 2025-04-13 17:29 | XMS_ITS | Encounter Summary ---
Author Organization [place] Address [address] [place] [address] Care Team Providers Care Presales Consultant Name Role Phone Julito Banuelos MD Primary Care Provider [phone] Julito Banuelos MD Unavailable Aleshia Henriquez RD Unavailable Unavailable Mary Kay Jones [facility] Unavailable Unavailable Susannah Blankenship [facility] Unavailable Carolyn Huynh [facility] Unavailable [phone] Vika Kevin APRN COMPLAINT ADJUSTER Unavailable + Marilyn Willard MD Unavailable [phone] Carie Varela DO Unavailable [phone] Maylin May NP Unavailable [phone] Marisa Hernandez RN Unavailable Unavailable Vilma Long MD Unavailable Yasmeen Pendleton [facility] Unavailable Cole George Unavailable Fletcher Russell Unavailable Unavailable Bautista Casey MD Unavailable [phone] Jasmyn Oliver CHW Unavailable [phone] Vika Kevin APRN COMPLAINT ADJUSTER Primary Care Prov ider Vika Kevin APRN [facility] Primary Care Prov ider Yasmeen Pendleton [facility] Unavailable + [phone] Vika Kevin APRN [facility] Primary Care Prov ider Reason for Visit * Reason Comments Medication Refill Encounter Details Date Type Department Care Team (Late st Contact Info) Description 09/07/[address] [phone] [place] [address] [place] [address] [phone] Medication Refill Social History Tobacco Use Types [...] on file Legal 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 Panda Bradshaw RN [place] Triage H DRIVER * Telephone Encounter - Jesús Flores - [...] 90 days) Sep 12, 2019 2:00 PM WINCH DRIVER SHORT with Susannah Blankenship [facility] ([facility] [address] [facility] [address] [facility] [address] Sep 23, 2019 10:50 AM WINCH DRIVER Office Visit with [facility] [address] [place] [address] [phone] [id number] g 3 Sig: SPRAY TWO SPRAYS [...] & Orders section of the refill encounter. H DRIVER documented in this encounter Plan of Treatment Not on file documented as of this encounter Visit Diagnoses Diagnosis Environmental allergies Allergic rhinitis, cause unspecified documented in this encounter Additional Health Concerns Infection Onset Date Last Indicated Resolved Time Rule Out COVID-19 07/25/2020 07/25/2020 07/26/2020 3:02 PM CDT Rule Out COVID-19 12/04/2020 12/04/2020 12/05/2020 6:04 PM WINCH DRIVER Assessment Noted Time PHQ-9 Depression Total Score: 8 07/18/20 19 12:06 PM CDT documented as of this encounter Care Teams Presales Consultant Relationship Specialty Start Date End Date Julito Banuelos MD [address] [place] [address] [phone] PCP - General Family Practice 09/12/15 09/23/21 Vika Kevin APRN COMPLAINT ADJUSTER [address] [place] [address] 354242 PCP - General Nurse Practitioner - Family 09/24/21 03/05/22 Vika Kevin APRN COMPLAINT ADJUSTER [address] [place] [address] [phone] PCP - General Nurse Practitioner - Family 03/18/22 06/18/22 Vika Kevin APRN COMPLAINT ADJUSTER [address] [place] [address] 675702 PCP - General Nurse Practitioner - Family 07/24/22 Julito Banuelos MD [address] [place] [address] 176402 Assigned PCP 02/17/16 07/21/[address] [place] [address] 10873 Diesel Plant Operator Dietitian, Registered 04/14/19 Mary Kay Jones [facility] Pharmacist 08/01/19 04/20/20 Susannah Blankenship, [facility] [address] [place] [address] 812 [place] [address] Pharmacist Pharmacist 08/08/19 04/15/21 Carolyn Huynh [facility] [place] [address] [place] [address] Pharmacist Pharmacist 06/25/20 04/15/21 Vika Kevin APRN COMPLAINT ADJUSTER [address] [place] [address] 42392 Assigned PCP 07/22/20 11/16/24 Marilyn Willard MD [address] [place] [address] Assigned Surgical Provider 08/17/20 08/16/24 Carie Varela DO [address] [place] [address] Assigned Heart and Vascular Provider 08/17/20 01/19/21 Maylin May NP [address] [place] [address] Assigned Pediatric Specialist Provider 12/16/20 06/13/22 Marisa Rodrigues, RN Clinic Ticket Sales Agent 01/15/21 02/26/21 Vilma Long MD [address] [place] [address] Assigned Heart and Vascular Provider 01/20/21 07/20/21 Yasmeen Pendleton [facility] [address] [place] [address] Pharmacist Pharmacist 06/04/21 01/15/22 Cole George LISW Lead Ticket Sales Agent 06/13/21 10/07/21 Fletcher Up Community Health Worker 06/13/21 09/12/21 Bautista Casey MD [address] [place] [address] Assigned Heart and Vascular Provider 07/21/21 01/16/23 Jasmyn Oliver CHW Community Health Worker 09/13/21 10/07/21 Yasmeen Pendleton [facility] [address] [place] [place] [address] Assigned MTM Pharmacist 03/22/22 01/02/23 documented as of this encounter
--- OUTSIDE RECORDS SUMMARY | 2025-04-13 17:30 | XMS_ITS | Encounter Summary ---
Author Organization [place] Address [address] [facility] [place] [address] Care Team Providers Care Lobster Fisherman Name Role Phone Julito Banuelos MD Primary Care Provider [phone] Julito Banuelos MD Unavailable Aleshia Henriquez RD Unavailable Unavailable Mary Kay Jones [facility] Unavailable Unavailable Susannah Blankenhsip [facility] Unavailable Carolyn Huynh [facility] Unavailable [phone] Vika Kevin APRN INDUSTRIAL WASTE TREATMENT TECHNICIAN Unavailable + Marilyn Willard MD Unavailable Carie Varela DO Unavailable [phone] Maylin May NP Unavailable [phone] Marisa Hernandez RN Unavailable Unavailable Vilma Long MD Unavailable Yasmeen Pendleton [facility] Unavailable Cole George Unavailable Fletcher Russell Unavailable Unavailable Bautista Casey MD Unavailable [phone] Jasmyn Oliver CHW Unavailable [phone] Vika Kevin APRN INDUSTRIAL WASTE TREATMENT TECHNICIAN Primary Care Prov ider Vika Kevin APRN [facility] Primary Care Prov ider Yasmeen Pendleton [facility] Unavailable [phone] Vika Kevin APRN [facility] Primary Care Prov ider Encounter Details Date Type Department Care Team (Late st Contact Info) Description 02/13/2020 MyC Medical Advice [address] [place] [address] Mary Kay Jones, [facility] Social History Tobacco Use Types Packs/Day Years [...] on file Legal 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 COMIC ARTIST Gender Identity Not on file Sexual Orientation [...] Out COVID-19 12/04/2020 12/04/2020 12/05/2020 6:04 PM COMIC ARTIST Assessment Noted Time PHQ-9 Depression Total Score: 8 07/18/20 19 12:06 PM CDT documented as of this encounter Care Teams Lobster Fisherman Relationship Specialty [place] [address] [place] [address] PCP - General Family Practice 09/12/15 09/23/21 Vika Kevin APRN INDUSTRIAL WASTE TREATMENT TECHNICIAN [address] [place] [address] 947362 PCP - General Nurse Practitioner - Family 09/24/21 03/05/22 Vika Kevin APRN INDUSTRIAL WASTE TREATMENT TECHNICIAN [address] [place] [address] [phone] PCP - General Nurse Practitioner - Family 03/18/22 06/18/22 Vika Kevin APRN INDUSTRIAL WASTE TREATMENT TECHNICIAN [address] [place] [address] 12759 PCP - General Nurse Practitioner - Family 07/24/22 Julito Banuelos MD [address] [place] [address] [phone] Assigned PCP 02/17/16 07/21/[address] [place] [address]39 President Educational Institution Dietitian, Registered 04/14/19 Mary Kay Jones [facility] Pharmacist 08/01/19 04/20/20 Susannah Blankenship [facility] [address] [place] [address] 812 [place], [place] [address] Pharmacist Pharmacist 08/08/19 04/15/21 Carolyn Huynh [facility] [address] [place] [address] Pharmacist Pharmacist 06/25/20 04/15/21 Vika Kevin APRN INDUSTRIAL WASTE TREATMENT TECHNICIAN [address] [place] [address] Assigned PCP 07/22/20 11/16/24 Marilyn Willard MD [address] [place] [address] 394 [place] [address] Assigned Surgical Provider 08/17/20 08/16/24 Carie Varela DO [address] [place] [address] Assigned Heart and Vascular Provider 08/17/20 01/19/21 Maylin May NP [address] [place] [address] Assigned Pediatric Specialist Provider 12/16/20 06/13/22 Marisa Rodrigues, RN Clinic Nuclear Engineering Technician 01/15/21 02/26/21 Vilma Long MD [address] [place] [address] Assigned Heart and Vascular Provider 01/20/21 07/20/21 Yasmeen Pendleton [facility] [address] [place] [address] Pharmacist Pharmacist 06/04/21 01/15/22 Cole George LISW Lead Nuclear Engineering Technician 06/13/21 10/07/21 Fletcher Up Community Health Worker 06/13/21 09/12/21 Bautista Casey MD [address] [place] [address] Assigned Heart and Vascular Provider 07/21/21 01/16/23 Jasmyn Oliver CHW Community Health Worker 09/13/21 10/07/21 Yasmeen Pendleton, [facility] [address] [place] [address] Assigned MTM Pharmacist 03/22/22 01/02/23 documented as of this encounter
--- OUTSIDE RECORDS SUMMARY | 2025-04-13 17:30 | XMS_ITS | Encounter Summary ---
Author Organization [place] Address [address] [facility] [place] [address] Care Team Providers Care Associate Media Planner Name Role Phone Julito Banuelos MD Primary Care Provider [phone] Julito Banuelos MD Unavailable Aleshia Henriquez RD Unavailable Unavailable Susannah Blankenship [facility] Unavailable [phone] Carolyn Huynh [facility] Unavailable [phone] Vika Kevin APRN IT INFRASTRUCTURE ARCHITECT Unavailable + Marilyn Willard MD Unavailable [phone] Carie Varela DO Unavailable [phone] Maylin May NP Unavailable [phone] Marisa Hernandez RN Unavailable Unavailable Vilma Long MD Unavailable + [phone] Yasmeen Pendleton [facility] Unavailable Cole George Unavailable Fletcher Russell Unavailable Unavailable Bautista Casey MD Unavailable [phone] Jasmyn Oliver Unavailable [phone] Vika Kevin APRN IT INFRASTRUCTURE ARCHITECT Primary Care Prov ider Vika Kevin APRN [facility] Primary Care Prov ider Yasmeen Pendleton [facility] Unavailable [phone] Vika Kevin APRN [facility] Primary Care Prov ider Encounter Details Date Type Department Care Team (Late st Contact Info) Description 05/15/2020 MyC Medical Advice [address] [place] [address] Susannah Blankenship, [facility] [address] [facility] 8[address] [place] [address] Social History Tobacco Use Types Packs/Day Years [...] on file Legal 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 TRAINING AND DEVELOPMENT 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 Gender Identity Not on file Sexual Orientation [...] Out COVID-19 12/04/2020 12/04/2020 12/05/2020 6:04 PM TRAINING AND DEVELOPMENT HEAD Assessment Noted Time PHQ-9 Depression Total Score: 8 07/18/20 19 12:06 PM CDT documented as of this encounter Care Teams Associate Media Planner Relationship Specialty [place] [address] [place] [address] PCP - General Family Practice 09/12/15 09/23/21 Vika Kevin APRN IT INFRASTRUCTURE ARCHITECT [address] [place] [address] PCP - General Nurse Practitioner - Family 09/24/21 03/05/22 Vika Kevin APRN IT INFRASTRUCTURE ARCHITECT [address] [place] [address] PCP - General Nurse Practitioner - Family 03/18/22 06/18/22 Vika Kevin APRN IT INFRASTRUCTURE ARCHITECT [address] [place] [address] PCP - General Nurse Practitioner - Family 07/24/22 Julito Banuelos MD [address] [place] [address] [phone] Assigned PCP 02/17/16 07/21/[address] [place] [address] Camp Dishwasher Dietitian, Registered 04/14/19 Susannah Blankenship, [facility] [address] [place] [address] 812 [place] [address] Pharmacist Pharmacist 08/08/19 04/15/21 Carolyn Huynh [facility] [address] [place] [address] Pharmacist Pharmacist 06/25/20 04/15/21 Vika Kevin APRN IT INFRASTRUCTURE ARCHITECT [address] [place] [address] Assigned PCP 07/22/20 11/16/24 Marilyn Willard MD [address] [place] [address] [address] [place] [address] Assigned Surgical Provider 08/17/20 08/16/24 Carie Varela DO [address] [place] [address] Assigned Heart and Vascular Provider 08/17/20 01/19/21 Maylin May NP [address] [place] [address] Assigned Pediatric Specialist Provider 12/16/20 06/13/22 Marisa Rodrigues, RN Clinic Commodity Buyer 01/15/21 02/26/21 Vilma Long MD [address] [place] [address] Assigned Heart and Vascular Provider 01/20/21 07/20/21 Yasmeen Pendleton [facility] [address] [place] [address] [phone] Pharmacist Pharmacist 06/04/21 01/15/22 Cole George LISW Lead Commodity Buyer 06/13/21 10/07/21 Fletcher Up Community Health Worker 06/13/21 09/12/21 Bautista Casey MD [address] [place] [address] Assigned Heart and Vascular Provider 07/21/21 01/16/23 Jasmyn Oliver CHW Community Health Worker 09/13/21 10/07/21 Yasmeen Pendleton [facility] [address] [place] [address] Assigned MTM Pharmacist 03/22/22 01/02/23 documented as of this encounter
--- OUTSIDE RECORDS SUMMARY | 2025-04-13 17:30 | XMS_ITS | Encounter Summary ---
Author Organization [place] Address [address] [facility] [place] [address] Care Team Providers Care Snipper Name Role Phone Andrew Lu MD Primary Care Provider [phone] Niko Resendiz MD Primary Care Provider Carlie Mac MD Primary Care Provide r Angella Mendieta MD Primary Care Provider Julito Banuelos MD Primary Care Provider [phone] Julito Banuelos MD Unavailable Julito Banuelos MD Unavailable Aleshia Henriquez RD Unavailable Unavailable Mary Kay Jones [facility] Unavailable Unavailable Susannah Blankenship [facility] Unavailable [phone] Carolyn Huynh [facility] Unavailable [phone] Vika Kevin APRN RECOVERER Unavailable + Marilyn Willard MD Unavailable [phone] Carie Varela DO Unavailable [phone] Maylin May NP Unavailable [phone] Marisa Rodrigues RN Unavailable Unavailable Vilma Long MD Unavailable + [phone] Yasmeen Pendleton [facility] Unavailable [phone] Cole George Unavailable Fletcher Russell Unavailable Unavailable Bautista Casey MD Unavailable TatyanaJasmyn anand 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 Gender Identity Not on file Sexual Orientation Not on file documented as of this encounter Plan of Treatment Not on file documented as of this encounter Visit Diagnoses Not on filedocumented in this encounter Additional Health Concerns Infection Onset Date Last Indicated Resolved Time Rule Out COVID-19 07/25/2020 07/25/2020 07/26/2020 3:02 PM CDT Rule Out COVID-19 12/04/2020 12/04/2020 12/05/2020 6:04 PM BRAILLE AND TALKING BOOKS CLERK documented as of this encounter Care Teams Snipper Relationship Specialty Start Date End Date Andrew Lu MD XXX RETIRED XXX [address] [place] [phone] PCP - General 12/10/01 01/10/14 Niko Resendiz MD [address] [address] PCP - General Internal Medicine 01/11/14 01/29/14 Carlie Mac MD [address] [place] [address] PCP - General Pediatrics 01/30/14 07/17/15 Angella Mendieta MD [address] [place] [address] PCP - General Family Practice 07/18/15 09/11/15 Julito Banuelos MD [address] [place] [address] 16[address] PCP - General Family Practice 09/12/15 09/23/21 Julito Banuelos MD [address] [place] [address] 19743 PCP - Assigned PCP 02/17/16 12/28/18 Vika Kevin APRN RECOVERER [address] [place] [address] 86891 PCP - General Nurse Practitioner - Family 09/24/21 03/05/22 Vika Kevin APRN RECOVERER [address] [place] [address] 7[address]73 PCP - General Nurse Practitioner - Family 03/18/22 06/18/22 Vika Kevin APRN RECOVERER [address] [place] [address] 101872 PCP - General Nurse Practitioner - Family 07/24/22 Julito Banuelos MD [address] [place] [address] 532752 Assigned PCP 02/17/16 07/21/20 Aleshia Henriquez, DAVE [address] [place] [address] 22478 Revenue Coordinator Dietitian, Registered 04/14/19 Mary Kay Jones, [facility] Pharmacist 08/01/19 04/20/20 Susannah Blankenship, [facility] [address] [place] [address] 812 [place], [place] 10[address] Pharmacist Pharmacist 08/08/19 04/15/21 [facility] [address] [place], [place] [address] Pharmacist Pharmacist 06/25/20 04/15/21 Vika Kevin APRN RECOVERER [address] [place] [address] 148582 Assigned PCP 07/22/20 11/16/24 Marilyn Willard MD 420 [facility] [address] [place], [place] 876[address] Assigned Surgical Provider 08/17/20 08/16/24 Carie Varela DO [address] [place], [place] 392935 Assigned Heart and Vascular Provider 08/17/20 01/19/21 Maylin May, JENNY [address] [place] [address] Assigned Pediatric Specialist Provider 12/16/20 06/13/22 Marisa Rodrigues, RN Clinic Electroplater Helper 01/15/21 02/26/21 Vilma Long MD [address] [place] [address] Assigned Heart and Vascular Provider 01/20/21 07/20/21 Yasmeen Pendleton [facility] [address] [place] [address] Pharmacist Pharmacist 06/04/21 01/15/22 Cole George LISW Lead Electroplater Helper 06/13/21 10/07/21 Fletcher Up Community Health Worker 06/13/21 09/12/21 Bautista Casey MD [address] [place] [address] Assigned Heart and Vascular Provider 07/21/21 01/16/23 Jasmyn Oliver CHW Community Health Worker 09/13/21 10/07/21 Yasmeen Pendleton [facility] [address] [place] [address] 630385 Assigned MTM Pharmacist 03/22/22 01/02/23 documented as of this encounter
--- OUTSIDE RECORDS SUMMARY | 2025-04-13 17:30 | XMS_ITS | Encounter Summary ---
Author Organization [place] Address [address] [facility] [place] [address] Care Team Providers Care Asset Protection Assistant Name Role Phone Aleshia Henriquez RD Unavailable Unavailable Vika Kevin APRN CAN HANDLER Unavailable + Marilyn Willard MD Unavailable [phone] Maylin May NP Unavailable [phone] Ip, Bautista Bell MD Unavailable [phone] Vika Kevin APRN [facility] Primary Care Prov ider Vika Kevin APRN [facility] Primary Care Prov ider Yasmeen Pendleton [facility] Unavailable + [phone] Vika Kevin APRN [facility] Primary Care Prov ider Encounter Details Date Type Department Care Team (Late st Contact Info) Description 02/12/2022 MyC Medical Advice [facility] [place] [address] [place] [address] Marilyn Chaves Social History Tobacco [...] place to sleep or slept in a fdc (including now)? 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 TREE WORKER Gender Identity Not on file Sexual [...] documented as of this encounter Care Teams Asset Protection Assistant Relationship Specialty Start Date End Date Vika Kevin APRN CAN HANDLER [address] [place] [address] PCP - General Nurse Practitioner - Family 09/24/21 03/05/22 Vika Kevin APRN CAN HANDLER [address] [place] [address] 18193 PCP - General Nurse Practitioner - Family 03/18/22 06/18/22 Vika Kevin APRN CAN HANDLER [address] [place] [address] 22266 PCP - General Nurse Practitioner - Family 07/24/[address] Configuration Developer Dietitian, Registered 04/14/19 Vika Kevin, JAIME CAN HANDLER [address] [place] [address] Assigned PCP 07/22/20 11/16/24 Marilyn Willard MD [address] [place] [address] Assigned Surgical Provider 08/17/20 08/16/24 Maylin May, JENNY [address] [place] [address] Assigned Pediatric Specialist Provider 12/16/20 06/13/22 Bautista Casey MD [address] [place] [address] Assigned Heart and Vascular Provider 07/21/21 01/16/23 Yasmeen Pendleton, [facility] [address] [place] [address] Assigned MTM Pharmacist 03/22/22 01/02/23 documented as of this encounter
--- OUTSIDE RECORDS SUMMARY | 2025-04-13 17:30 | XMS_ITS | Encounter Summary ---
Author Organization [place] Address [address] [place] [address] Care Team Providers Care Black Top Roller Name Role Phone Andrew Lu MD Primary Care Provider [phone] Niko Resendiz MD Primary Care Provider Carlie Mac MD Primary Care Provide r Angella Mendieta MD Primary Care Provider Julito Banuelos MD Primary Care Provider [phone] Julito Banuelos MD Unavailable Julito Banuelos MD Unavailable Aleshia Henriquez RD Unavailable Unavailable Mary Kay Jones [facility] Unavailable Unavailable Susannah Blankenship [facility] Unavailable [phone] Carolyn Huynh [facility] Unavailable [phone] Vika Kevin APRN NEGATIVE TURNER Unavailable + Marilyn Willard MD Unavailable [phone] Carie Varela DO Unavailable +[phone] Maylin May NP Unavailable [phone] Marisa Rodrigues RN Unavailable Unavailable Vilma Long MD Unavailable + [phone] Yasmeen Pendleton [facility] Unavailable + [phone] Cole George Unavailable Fletcher Russell Unavailable Unavailable Bautista Casey MD Unavailable [phone] Jamsyn Oliver [facility] Unavailable [phone] Vika Kevin APRN [facility] Primary Care Prov ider Vika Kevin APRN [facility] Primary Care Prov ider Yasmeen Pendleton [facility] Unavailable [phone] Vika Kevin APRN [facility] Primary Care Prov ider Reason for Referral * Referral not Required - Closed Specialty Diagnoses / Procedures Referred By Contkateryna t Referred To Contact Diagnoses CAD (coronary artery disease) Andrew Lu MD XXX RETIRED XXX [address] [place] [address] Phone: tel: fax: [facility] [address] [facility] [address] [facility] [place] [address] Phone: tel: fax: Referral ID Status Reason Start Date Expiration Date Visits Re quested Visits Authorized [id number] Closed 01/11/2013 07/10/2013 1 1 Comments Your provider has referred you to: [facility]: [facility] [place] [phone] Please be aware that coverage of these [...] where they were done to arrange for garbage pick up man prior to your scheduled appointment. Any new CT, MRI or other procedures ordered by your specialist must be performed at a [place] facility or coordinated by your clinic's referral office. >> List of current medications >> This referral request >> Any documents/labs given to you for this referral Reason for Visit * Reason Onset Date Comments Referral 01/11/2013 Encounter Details Date Type Department Care Team (Late st Contact Info) Description 01/11/2013 MyC Medical Advice [address] [phone] Andrew Lu MD XXX RETIRED XXX [address] [place] [address] Referral Social History Tobacco Use Types [...] on file Legal 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 TABLE ASSEMBLER Gender Identity Not on file Sexual Orientation [...] Coronary atherosclerosis of unspecified type of vessel, nondalton or graft documented in this encounter Additional Health Concerns Infection Onset Date Last Indicated Resolved Time Rule Out COVID-19 07/25/2020 07/25/2020 07/26/2020 3:02 PM CDT Rule Out COVID-19 12/04/2020 12/04/2020 12/05/2020 6:04 PM TABLE ASSEMBLER documented as of this encounter Care Teams Black Top Roller Relationship Specialty Start Date End Date Andrew Lu MD XXX RETIRED XXX [address] [place] [address] PCP - General 12/10/01 01/10/14 Niko Resendiz MD [address] [address] PCP - General Internal Medicine 01/11/14 01/29/14 Carlie Mac MD [address] [place] [address] PCP - General Pediatrics 01/30/14 07/17/15 Angella Mendieta MD [address] [place] [address] PCP - General Family Practice 07/18/15 09/11/15 Julito Banuelos MD [address] [place] [address] PCP - General Family Practice 09/12/15 09/23/21 Julito Banuelos MD [address] [place] [address]85 PCP - Assigned PCP 02/17/16 12/28/18 Vika Kevin APRN NEGATIVE TURNER [address] [place] [address] PCP - General Nurse Practitioner - Family 09/24/21 03/05/22 Vika Kevin APRN NEGATIVE TURNER [address] [place] [address] PCP - General Nurse Practitioner - Family 03/18/22 06/18/22 Vika Kevin APRN NEGATIVE TURNER [address] [place] [address] 026582 PCP - General Nurse Practitioner - Family 07/24/22 Julito Banuelos MD [address] [place] [address] [id number] Assigned PCP 02/17/16 07/21/20 Aleshia Henriquez, DAVE [address] [place] [address] Weight Caller Dietitian, Registered 04/14/19 Mary Kay Jones, [facility] Pharmacist 08/01/19 04/20/20 Susannah Blankenship, [facility] [address] [place] [address] [address] [place], [place] [address]395 Pharmacist Pharmacist 08/08/19 04/15/21 [facility] [address] [place], [place] [address] Pharmacist Pharmacist 06/25/20 04/15/21 Vika Kevin APRN NEGATIVE TURNER [address] [place] [address] 619902 Assigned PCP 07/22/20 11/16/24 Marilyn Willard MD [address] [place] [address] [address] [place], [place] [address] Assigned Surgical Provider 08/17/20 08/16/24 Carie Varela DO [address] [place], [place] [address] Assigned Heart and Vascular Provider 08/17/20 01/19/21 Maylin May NP [address] [place] [address] Assigned Pediatric Specialist Provider 12/16/20 06/13/22 Marisa Rodrigues, RN Clinic Knuckle Bender 01/15/21 02/26/21 Vilma Long MD [address] [place] [address] Assigned Heart and Vascular Provider 01/20/21 07/20/21 Yasmeen Pendleton [facility] [address] [place] [address] Pharmacist Pharmacist 06/04/21 01/15/22 Cole George LISW Lead Knuckle Bender 06/13/21 10/07/21 Fletcher Up Community Health Worker 06/13/21 09/12/21 Bautista Casey MD [address] [place] [address] Assigned Heart and Vascular Provider 07/21/21 01/16/23 Jasmyn Oliver CHW Community Health Worker 09/13/21 10/07/21 Yasmeen Pendleton [facility] [address] [place], [place] [address] Assigned MTM Pharmacist 03/22/22 01/02/23 documented as of this encounter
--- OUTSIDE RECORDS SUMMARY | 2025-04-13 17:30 | XMS_ITS | Encounter Summary ---
Author Organization [place] Address [address] [place] [address] Care Team Providers Care Garden Center Manager Name Role Phone Andrew Lu MD Primary Care Provider [phone] Niko Resendiz MD Primary Care Provider Carlie Mac MD Primary Care Provide r Angella Mendieta MD Primary Care Provider Julito Banuelos MD Primary Care Provider [phone] Julito Banuelos MD Unavailable Julito Banuelos MD Unavailable Aleshia Henriquez RD Unavailable Unavailable Mary Kay Jones [facility] Unavailable Unavailable Susannah Blankenship [facility] Unavailable [phone] Carolyn Huynh [facility] Unavailable [phone] Vika Kevin APRN ASSISTIVE TECHNOLOGY TRAINER Unavailable + Marilyn Willard MD Unavailable [phone] Carie Varela DO Unavailable [phone] Maylin May NP Unavailable [phone] Marisa Rodrigues RN Unavailable Unavailable Vilma Long MD Unavailable + [phone] Yasmeen Pendleton [facility] Unavailable + [phone] Cole George Unavailable Fletcher Russell Unavailable Unavailable Bautista Casey MD Unavailable [phone] DemetriusJasmyn wright [facility] Unavailable [phone] Vika Kevin APRN [facility] Primary Care Prov ider Vika Kevin APRN [facility] Primary Care Prov ider Yasmeen Pendleton [facility] Unavailable + [phone] Vika Kevin APRN [facility] Primary Care Prov ider Encounter Details Date Type Department Care Team (Late st Contact Info) Description 09/28/[address] [phone] Veronica [place] Social History Tobacco Use Types Packs/Day Years [...] file Legal 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 SALES 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 Gender Identity Not on file Sexual [...] COVID-19 12/04/2020 12/04/2020 12/05/2020 6:04 PM SALES CONSULTANT documented as of this encounter Care Teams Garden Center Manager Relationship Specialty Start Date End Date Andrew Lu MD XXX RETIRED XXX [address] [place] [phone] PCP - General 12/10/01 01/10/14 Niko Resendiz MD [address] [place] [address] PCP - General Internal Medicine 01/11/14 01/29/14 Carlie Mac MD [address] [place] [address] PCP - General Pediatrics 01/30/14 07/17/15 Angella Mendieta MD [address] [place] [address] PCP - General Family Practice 07/18/15 09/11/15 Julito Banuelos MD [address] [place] [address] PCP - General Family Practice 09/12/15 09/23/21 Julito Banuelos MD [address] [place] [address] 14045 PCP - Assigned PCP 02/17/16 12/28/18 Vika Kevin APRN ASSISTIVE TECHNOLOGY TRAINER [address] [place] [address] 44613 PCP - General Nurse Practitioner - Family 09/24/21 03/05/22 Vika Kevin APRN ASSISTIVE TECHNOLOGY TRAINER [address] [place] [address] 60974 PCP - General Nurse Practitioner - Family 03/18/22 06/18/22 Vika Kevin APRN ASSISTIVE TECHNOLOGY TRAINER [address] [place] [address] 611542 PCP - General Nurse Practitioner - Family 07/24/22 Julito Banuelos MD [address] [place] [address] 045112 Assigned PCP 02/17/16 07/21/[address] [place] [address] Cartridge Assembler Dietitian, Registered 04/14/19 Mary Kay Jones, [facility] Pharmacist 08/01/19 04/20/20 [facility] [address] [place] [address] 8[address] [place], [place] [address] Pharmacist Pharmacist 08/08/19 04/15/21 [facility] [address] [place], [place] [address] Pharmacist Pharmacist 06/25/20 04/15/21 Vika Kevin APRN ASSISTIVE TECHNOLOGY TRAINER [address] [place] [address] 587442 Assigned PCP 07/22/20 11/16/24 Marilyn Willard MD [address] [place] [address] [address] [place] [address] Assigned Surgical Provider 08/17/20 08/16/24 Carie Varela DO [address] [place], [place] [address] Assigned Heart and Vascular Provider 08/17/20 01/19/21 Maylin May NP [address] [place], [place] [address] Assigned Pediatric Specialist Provider 12/16/20 06/13/22 Marisa Rodrigues, RN Clinic Probation Officer 01/15/21 02/26/21 Vilma Long MD [address] [place] [address] Assigned Heart and Vascular Provider 01/20/21 07/20/21 [facility] [address] [place] [address] Pharmacist Pharmacist 06/04/21 01/15/22 Cole George LISW Lead Probation Officer 06/13/21 10/07/21 Fletcher Up Community Health Worker 06/13/21 09/12/21 Bautista Casey MD [address] [place] [address] Assigned Heart and Vascular Provider 07/21/21 01/16/23 Jasmyn Oliver CHW Community Health Worker 09/13/21 10/07/21 [facility] [address] [place] [address] 869555 Assigned MTM Pharmacist 03/22/22 01/02/23 documented as of this encounter
--- OUTSIDE RECORDS SUMMARY | 2025-04-13 17:30 | XMS_ITS | Encounter Summary ---
Author Organization [place] Address [address] [facility] [place] [address] Care Team Providers Care Clinic Supervisor Name Role Phone Julito Banuelos MD Primary Care Provider [phone] Julito Banuelos MD Unavailable Julito Banuelos MD Unavailable Aleshia Henriquez RD Unavailable Unavailable Mary Kay Jones [facility] Unavailable Unavailable Susannah Blankenship [facility] Unavailable Carolyn Huynh [facility] Unavailable Vika Kevin APRN [facility] FORMER Unavailable + Marilyn Willard MD Unavailable Carie Varela DO Unavailable [phone] Maylin May NP Unavailable [phone] Marisa Rodrigues RN Unavailable Unavailable Vilma Long MD Unavailable Yasmeen Pendleton [facility] Unavailable Cole George Unavailable Fletcher Russell Unavailable Unavailable Bautista Casey MD Unavailable Jasmyn Oliver Unavailable [phone] Vika Kevin APRN [facility] Primary Care Prov ider Kevin Vika Delgado JAIME [facility] Primary Care Prov ider Yasmeen Pendleton [facility] Unavailable + [phone] Herberth Vika Delgado JAIME [facility] Primary Care Prov ider Reason for Visit * Reason Onset Date Comments MyChart Communication 11/01/2018 Encounter Details Date Type Department Care Team (Late st Contact Info) Description 11/01/2018 MyC Medical Advice [address] [address] [place] [address] [place] [address] MyChart Communication Social History Tobacco Use [...] on file Legal 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 GL ACCOUNTANT Gender Identity Not on file Sexual Orientation Not on file Occupation Industry Job Start Date Job End Date Not on file Not on file Not on file Not on file documented as of this encounter Miscellaneous Notes * Telephone Encounter - Araseli Briceño RN - 11/16/2018 8:56 AM CST Urine is in process. YUE Mcdowell, RN, PHN [facility] Triage ) [phone] ACCOUNTANT * Telephone Encounter - Leann Massey - 11/16/2018 8:28 AM CST The patient called and said her Ty is bringing in her urine. She wanted it noted that she is on an antibiotic right now. Leann Massey Patient Mirror Polisher ACCOUNTANT * Telephone Encounter - Araseli Briceño RN - 11/02/2018 2:37 PM CST Mychart note sent to patient. YUE Mcdowell, RN, PHN [facility]) [phone] ACCOUNTANT * Telephone Encounter - Julito Banuelos MD - 11/02/2018 2:17 PM CST Please review with patient Can certainly try prevagen, have not seen neurologist recommend to date? ACCOUNTANT * Telephone Encounter - Araseli Briceño RN - 11/02/2018 7:55 AM CST Forwarded to TS. Please review patient's Icecreamlabshart message and advise. Araseli Briceño RN, BS, PHN ACCOUNTANT documented in this encounter Plan of Treatment Not on file documented as of this encounter Visit Diagnoses Not on filedocumented in this encounter Additional Health Concerns Infection Onset Date Last Indicated Resolved Time Rule Out COVID-19 07/25/2020 07/25/2020 07/26/2020 3:02 PM CDT Rule Out COVID-19 12/04/2020 12/04/2020 12/05/2020 6:04 PM GL ACCOUNTANT Assessment Noted Time PHQ-9 Depression Total Score: 4 04/27/20 18 7:12 AM CDT documented as of this encounter Care Teams Clinic Supervisor Relationship Specialty [place] [address] [place] [address] PCP - General Family Practice 09/12/15 09/23/21 Julito Banuelos MD [address] [place] [address] PCP - Assigned PCP 02/17/16 12/28/18 Vika Kevin APRN [facility] [address] [place] [address] PCP - General Nurse Practitioner - Family 09/24/21 03/05/22 Vika Kevin APRN [facility] [facility] [address] [place] [address]06 PCP - General Nurse Practitioner - Family 03/18/22 06/18/22 Vika Kevin APRN [facility] FORMER [address] [place] [address] 755672 PCP - General Nurse Practitioner - Family 07/24/22 Julito Banuelos MD [address] [place] [address] 200132 Assigned PCP 02/17/16 07/21/[address] [place] [address] Change Number Operator Dietitian, Registered 04/14/19 Mary Kay Jones [facility] Pharmacist 08/01/19 04/20/20 Susannah Blankenship [facility] [address] [place] [address] 812 [place] [address] Pharmacist Pharmacist 08/08/19 04/15/21 Carolyn Huynh [facility] [address] [place], [place] [address] Pharmacist Pharmacist 06/25/20 04/15/21 KevinVika, PLASTIC WORKER [facility] FORMER [address] [place], [place] [address] Assigned PCP 07/22/20 11/16/24 Marilyn Willard MD [address] [facility] [address] [place], [place] [address] Assigned Surgical Provider 08/17/20 08/16/24 Carie Varela DO [address] [place] [address] Assigned Heart and Vascular Provider 08/17/20 01/19/21 Maylin May NP [address] [place], [place] [address] Assigned Pediatric Specialist Provider 12/16/20 06/13/22 Marisa Rodrigues, RN Clinic Principal Cloud Architect 01/15/21 02/26/21 Vilma Long MD [address] [place] [address] Assigned Heart and Vascular Provider 01/20/21 07/20/21 Yasmeen ePndleton [facility] [address] [place] [address] Pharmacist Pharmacist 06/04/21 01/15/22 Cole George LISW Lead Principal Cloud Architect 06/13/21 10/07/21 Fletcher Up Community Health Worker 06/13/21 09/12/21 Bautista Casey MD [address] [place] [address] Assigned Heart and Vascular Provider 07/21/21 01/16/23 Jasmyn Oliver CHW Community Health Worker 09/13/21 10/07/21 Yasmeen Pendleton [facility] [address] [place] [address] Assigned MTM Pharmacist 03/22/22 01/02/23 documented as of this encounter
--- OUTSIDE RECORDS SUMMARY | 2025-04-13 17:30 | XMS_ITS | Encounter Summary ---
Author Organization [place] Address [address] [facility] [address] Care Team Providers Care Mail Machine Operator Name Role Phone Julito Banuelos MD Primary Care Provider [phone] Julito Banuelos MD Unavailable Aleshia Henriquez RD Unavailable Unavailable Mary Kay Jones [facility] Unavailable Unavailable Susannah Blankenship [facility] Unavailable Carolyn Huynh [facility] Unavailable [phone] Vika Kevin APRN SECOND BAKER Unavailable + Marilyn Willard MD Unavailable Carie Varela DO Unavailable [phone] Maylin May NP Unavailable [phone] Marisa Hernandez RN Unavailable Unavailable Vilma Long MD Unavailable Yasmeen Pendleton [facility] Unavailable Cole George Unavailable Fletcher Russell Unavailable Unavailable Bautista Casey MD Unavailable [phone] Jasmyn Oliver CHW Unavailable [phone] Vika Kevin APRN SECOND BAKER Primary Care Prov ider Vika Kevin APRN [facility] Primary Care Prov ider Yasmeen Pendleton [facility] Unavailable + [phone] Vika Kevin APRN [facility] Primary Care Prov ider Reason for Visit * Reason Comments Medication Refill Encounter Details Date Type Department Care Team (Late st Contact Info) Description 04/20/[address] [phone] [place] [address] [place] [address] [id number] Medication Refill Social History Tobacco Use Types [...] on file Legal 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 MATERIAL ASSISTANT Gender Identity Not on file Sexual [...] Refill available at pharmacy Panda Bradshaw RN [facility] Triage documented in this encounter Plan of Treatment Not on file documented as of this encounter Visit Diagnoses Diagnosis Hypothyroidism, unspecified type documented in this encounter Additional Health Concerns Infection Onset Date Last Indicated Resolved Time Rule Out COVID-19 07/25/2020 07/25/2020 07/26/2020 3:02 PM CDT Rule Out COVID-19 12/04/2020 12/04/2020 12/05/2020 6:04 PM MATERIAL ASSISTANT Assessment Noted Time PHQ-9 Depression Total Score: 8 07/18/20 19 12:06 PM CDT documented as of this encounter Care Teams Mail Machine Operator Relationship Specialty Start Date End Date Julito Banuelos MD [address] [place] [address] PCP - General Family Practice 09/12/15 09/23/21 Vika Kevin APRN SECOND BAKER [address] [place] [address] PCP - General Nurse Practitioner - Family 09/24/21 03/05/22 Vika Kevin APRN SECOND BAKER [address] [place] [address] PCP - General Nurse Practitioner - Family 03/18/22 06/18/22 Vika Kevin APRN SECOND BAKER [address] [place] [address] PCP - General Nurse Practitioner - Family 07/24/22 Julito Banuelos MD [address] [place] [address] 25[address] Assigned PCP 02/17/16 07/21/[address] [place] [address] Trench Pipe Layer Helper Dietitian, Registered 04/14/19 Mary Kay Jones [facility] Pharmacist 08/01/19 04/20/20 Susannah Blankenship, [facility] [address] [facility] [address] [place], [place] [address] Pharmacist Pharmacist 08/08/19 04/15/21 Carolyn Huynh [facility] [address] [place] [address] Pharmacist Pharmacist 06/25/20 04/15/21 Vika Kevin, [facility] SECOND BAKER [address] [place] [address] 817202 Assigned PCP 07/22/20 11/16/24 Marilyn Willard MD [address] [facility] [address] [place], [place] [address] Assigned Surgical Provider 08/17/20 08/16/24 Carie Varela DO [address] [place] [address] Assigned Heart and Vascular Provider 08/17/20 01/19/21 Maylin May NP [address] [place], [place] [address] Assigned Pediatric Specialist Provider 12/16/20 06/13/22 Marisa Rodrigues, RN Clinic Corporate Communications Specialist 01/15/21 02/26/21 Vilma Long MD [address] [place] [address] Assigned Heart and Vascular Provider 01/20/21 07/20/21 Yasmeen Pendleton [facility] [address] [place] [address] Pharmacist Pharmacist 06/04/21 01/15/22 Cole George LISW Lead Corporate Communications Specialist 06/13/21 10/07/21 Fletcher Up Community Health Worker 06/13/21 09/12/21 Bautista Casey MD [address] [place] [address] Assigned Heart and Vascular Provider 07/21/21 01/16/23 Jasmyn Oliver CHW Community Health Worker 09/13/21 10/07/21 Yasmeen Pendleton [facility] [address] [place] [address] Assigned MTM Pharmacist 03/22/22 01/02/23 documented as of this encounter
--- OUTSIDE RECORDS SUMMARY | 2025-04-13 17:30 | XMS_ITS | Encounter Summary ---
Author Organization [place] Address [address] [facility] [place] [address] Care Team Providers Care Manager Creative Name Role Phone Andrew Lu MD Primary Care Provider [phone] Niko Resendiz MD Primary Care Provider Carlie Mac MD Primary Care Provide r Angella Mendieta MD Primary Care Provider Julito Banuelos MD Primary Care Provider [phone] Julito Banuelos MD Unavailable Julito Banuelos MD Unavailable Aleshia Henriquez RD Unavailable Unavailable Mary Kay Jones [facility] Unavailable Unavailable Susannah Blankenship [facility] Unavailable [phone] Carolyn Huynh [facility] Unavailable [phone] Vika Kevin APRN SALES DEVELOPMENT MANAGER Unavailable + Marilyn Willard MD Unavailable [phone] Carie Varela DO Unavailable +[phone] Maylin May NP Unavailable [phone] Marisa Rodrigues RN Unavailable Unavailable Vilma Long MD Unavailable + [phone] Yasmeen Pendleton [facility] Unavailable [phone] Cole Geogre Unavailable Fletcher Russell Unavailable Unavailable Bautista Casey MD Unavailable [phone] DemetriusJasmyn wright [facility] Unavailable +[phone] Vika Kevin APRN [facility] Primary Care Prov ider Vika Kevin APRN [facility] Primary Care Prov ider Yasmeen Pendleton [facility] Unavailable [phone] [facility] Primary Care Prov ider Encounter Details Date Type Department Care Team (Late st Contact Info) Description 04/27/2012 MyC Medical Advice [address] [phone] Andrew Lu MD XXX RETIRED XXX [address] [phone] Social History Tobacco Use Types Packs/Day Years Used Date Smoking Tobacco: Former Cigarettes 0.3 15 0 10/26/1961 - 10/26/1976 Smokeless Tobacco: Never Alcohol Use Standard Drinks/Week Comments Yes 0 (1 standard drink = 0.6 oz pur e alcohol) 1-2 glasses of wine weekly Comments No Sex and Gender Information Value Date Recorded Sex Assigned at Not on file Legal 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 CUSTOM FRAME ASSEMBLER Gender Identity Not on file Sexual [...] Out COVID-19 12/04/2020 12/04/2020 12/05/2020 6:04 PM CUSTOM FRAME ASSEMBLER documented as of this encounter Care Teams Manager Creative Relationship Specialty Start Date End Date Andrew Lu MD XXX RETIRED XXX [address] [place] [phone] PCP - General 12/10/01 01/10/14 Niko Resendiz MD [address] [place] [address] PCP - General Internal Medicine 01/11/14 01/29/14 Carlie Mac MD [address] [place] [address] PCP - General Pediatrics 01/30/14 07/17/15 Angella Mendieta MD [address] [place] [address] PCP - General Family Practice 07/18/15 09/11/15 Julito Banuelos MD [address] [place] [address] 38342 PCP - General Family Practice 09/12/15 09/23/21 Julito Banuelos MD [address] [place] [address] 62465 PCP - Assigned PCP 02/17/16 12/28/18 Vika Kevin APRN SALES DEVELOPMENT MANAGER [address] [place] [address] 45762 PCP - General Nurse Practitioner - Family 09/24/21 03/05/22 Vika Kevin APRN SALES DEVELOPMENT MANAGER [address] [place] [address] PCP - General Nurse Practitioner - Family 03/18/22 06/18/22 Vika Kevin, JAIME SALES DEVELOPMENT MANAGER [address] [place] [address] 601782 PCP - General Nurse Practitioner - Family 07/24/22 Julito Banuelos MD [address] [place] [address] [id number] Assigned PCP 02/17/16 07/21/[address] [place] [address]103 Arts And Crafts Teacher Dietitian, Registered 04/14/19 Mary Kay Jones, [facility] Pharmacist 08/01/19 04/20/20 Susannah Blankenship, [facility] [address] [facility] [address] [place], [place] [address] Pharmacist Pharmacist 08/08/19 04/15/21 Carolyn Huynh, [facility] [address] [place], [place] [address] Pharmacist Pharmacist 06/25/20 04/15/21 Vika Kevin, JAIME SALES DEVELOPMENT MANAGER [address] [place] [address] 887542 Assigned PCP 07/22/20 11/16/24 Marilyn Willard MD 420 [facility] [address] [place], [place] [address] Assigned Surgical Provider 08/17/20 08/16/24 Carie Varela DO [address] [place] [address] Assigned Heart and Vascular Provider 08/17/20 01/19/21 Maylin May NP [address] [place] [address] Assigned Pediatric Specialist Provider 12/16/20 06/13/22 Marisa Rodrigues, RN Clinic Heading Matcher And Assembler 01/15/21 02/26/21 Vilma Long MD [address] [place] [address] Assigned Heart and Vascular Provider 01/20/21 07/20/21 Yasmeen Pendleton [facility] [address] [place] [address] Pharmacist Pharmacist 06/04/21 01/15/22 Cole George LISW Lead Heading Matcher And Assembler 06/13/21 10/07/21 Fletcher Up Community Health Worker 06/13/21 09/12/21 Bautista Casey MD [address] [place] [address] Assigned Heart and Vascular Provider 07/21/21 01/16/23 Jasmyn Oliver CHW Community Health Worker 09/13/21 10/07/21 Yasmeen Pendleton [facility] [address] [place] [address] Assigned MTM Pharmacist 03/22/22 01/02/23 documented as of this encounter
--- OUTSIDE RECORDS SUMMARY | 2025-04-13 17:30 | XMS_ITS | Encounter Summary ---
Author Organization [place] Address [address] [facility] [address] Care Team Providers Care Tanker Serviceman Name Role Phone Andrew Lu MD Primary Care Provider [phone] Niko Resendiz MD Primary Care Provider Carlie Mac MD Primary Care Provide r Angella Mendieta MD Primary Care Provider Julito Banuelos MD Primary Care Provider [phone] Julito Banuelos MD Unavailable Julito Banuelos MD Unavailable Aleshia Henriquez RD Unavailable Unavailable Mary Kay Jones [facility] Unavailable Unavailable Susannah Blankenship [facility] Unavailable [phone] Carolyn Huynh [facility] Unavailable [phone] Vika Kevin APRN SHOE REPAIR SUPERVISOR Unavailable + Marilyn Willard MD Unavailable [phone] Carie Varela DO Unavailable [phone] Maylin May NP Unavailable [phone] Marisa Rodrigues RN Unavailable Unavailable Vilma Long MD Unavailable + [phone] Yasmeen Pendleton [facility] Unavailable [phone] Cole George Unavailable Fletcher Russell Unavailable Unavailable Bautista Casey MD Unavailable [phone] DemetriusJasmyn wright [facility] Unavailable [phone] Vika Kevin APRN [facility] Primary Care Prov ider Vika Kevin APRN [facility] Primary Care Prov ider Yasmeen Pendleton [facility] Unavailable Vika [facility] Primary Care Prov ider Reason for Visit * Reason Onset Date Comments Refill Request 01/06/2011 Encounter Details Date Type Department Care Team (Late st Contact Info) Description 01/06/[address] [phone] Andrew Lu MD XXX RETIRED XXX [address] [place] [phone] Refill Request Social History Tobacco Use Types Packs/Day Years Used Date Smoking Tobacco: Former Cigarettes 0.3 15 0 10/26/1961 - 10/26/1976 Alcohol Use Standard Drinks/Week Comments Yes 0 (1 standard drink = 0.6 oz pur e alcohol) 1 wine 2x qweek Comments No Sex and Gender Information Value Date Recorded Sex Assigned at Not on file Legal 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 SOLUTION LEAD Gender Identity Not on file Sexual Orientation [...] Out COVID-19 12/04/2020 12/04/2020 12/05/2020 6:04 PM SOLUTION LEAD documented as of this encounter Care Teams Tanker Serviceman Relationship Specialty Start Date End Date Andrew Lu MD XXX RETIRED XXX [address] [place] [phone] PCP - General 12/10/01 01/10/14 Niko Resendiz MD [address] [place] [address]146 PCP - General Internal Medicine 01/11/14 01/29/14 Carlie Mac MD [address] [place] [address] PCP - General Pediatrics 01/30/14 07/17/15 Angella Mendieta MD [address] [place] [address] PCP - General Family Practice 07/18/15 09/11/15 Julito Banuelos MD [address] [place] [address]887 PCP - General Family Practice 09/12/15 09/23/21 Julito Banuelos MD [address] [place] [address] PCP - Assigned PCP 02/17/16 12/28/18 Vika Kevin APRN SHOE REPAIR SUPERVISOR [address] [place] [address] PCP - General Nurse Practitioner - Family 09/24/21 03/05/22 Vika Kevin APRN SHOE REPAIR SUPERVISOR [address] [place] [address] PCP - General Nurse Practitioner - Family 03/18/22 06/18/22 Vika Kevin APRN SHOE REPAIR SUPERVISOR [address] [place] [address] PCP - General Nurse Practitioner - Family 07/24/22 Julito Banuelos MD [address] [place] [address] Assigned PCP 02/17/16 07/21/[address] [place] [address]507 Hospice Plan Administrator Dietitian, Registered 04/14/19 Mary Kay Jones, [facility] Pharmacist 08/01/19 04/20/20 Susannah Blankenship, [facility] 420 [facility] [address] [place] [address] Pharmacist Pharmacist 08/08/19 04/15/21 Carolyn Huynh, [facility] [address] [place], [place] [address] Pharmacist Pharmacist 06/25/20 04/15/21 Vika Kevin, JAIME SHOE REPAIR SUPERVISOR [address] [place] [address] Assigned PCP 07/22/20 11/16/24 Marilyn Willard MD 420 [facility] [address] [place], [place] [address] Assigned Surgical Provider 08/17/20 08/16/24 Carie Varela DO [address] [place] [address] Assigned Heart and Vascular Provider 08/17/20 01/19/21 Maylin May NP [address] [place] [address] Assigned Pediatric Specialist Provider 12/16/20 06/13/22 Marisa Rodrigues, RN Clinic Doll Dresser 01/15/21 02/26/21 Vilma Long MD [address] [place] [address] Assigned Heart and Vascular Provider 01/20/21 07/20/21 [facility] [address] [place] [address] Pharmacist Pharmacist 06/04/21 01/15/22 Cole George LISW Lead Doll Dresser 06/13/21 10/07/21 Fletcher Up Community Health Worker 06/13/21 09/12/21 Bautista Casey MD [address] [place] [address] Assigned Heart and Vascular Provider 07/21/21 01/16/23 Jasmyn Oliver CHW Community Health Worker 09/13/21 10/07/21 [facility] [address] [place] [address] Assigned MTM Pharmacist 03/22/22 01/02/23 documented as of this encounter
--- OUTSIDE RECORDS SUMMARY | 2025-04-13 17:30 | XMS_ITS | Encounter Summary ---
Author Organization [place] Address [address] [facility] [place] [address] Care Team Providers Care Food Preservation Scientist Name Role Phone Andrew Lu MD Primary Care Provider [phone] Niko Resendiz MD Primary Care Provider Carlie Mac MD Primary Care Provide r Angella Mendieta MD Primary Care Provider Julito Banuelos MD Primary Care Provider [phone] Julito Banuelos MD Unavailable Julito Banuelos MD Unavailable Aleshia Henriquez RD Unavailable Unavailable Mary Kay Jones [facility] Unavailable Unavailable Susannah Blankenship [facility] Unavailable [phone] Carolyn Huynh [facility] Unavailable [phone] Vika Kevin APRN POLYMER TESTER Unavailable + Marilyn Willard MD Unavailable [phone] Carie Varela DO Unavailable [phone] Maylin May NP Unavailable [phone] Marisa Rodrigues RN Unavailable Unavailable Vilma Long MD Unavailable + [phone] Yasmeen Pendleton [facility] Unavailable + [phone] Cole George Unavailable Fletcher Russell Unavailable Unavailable Bautista Casey MD Unavailable DemetriusJasmyn wright [facility] Unavailable [phone] Vika Kevin APRN [facility] Primary Care Prov ider Vika Kevin APRN [facility] Primary Care Prov ider Yasmeen Pendleton [facility] Unavailable + [phone] Vika Kevin APRN [facility] Primary Care Prov ider Encounter Details Date Type Department Care Team (Late st Contact Info) Description 02/04/[address] [phone] Veronica [place] Social History Tobacco Use Types Packs/Day Years Used Date Smoking Tobacco: Former Cigarettes 0.3 15 0 10/26/1961 - 10/26/1976 Smokeless Tobacco: Never Alcohol Use Standard Drinks/Week Comments Yes 0 (1 standard drink = 0.6 oz pur e alcohol) 1-2 glasses of wine weekly Comments No Sex and Gender Information Value Date Recorded Sex Assigned at Not on file Legal 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 NATIONAL SALES DIRECTOR Gender Identity Not on file Sexual [...] Out COVID-19 12/04/2020 12/04/2020 12/05/2020 6:04 PM NATIONAL SALES DIRECTOR documented as of this encounter Care Teams Food Preservation Scientist Relationship Specialty Start Date End Date Andrew Lu MD XXX RETIRED XXX [address] [place] [phone] PCP - General 12/10/01 01/10/14 Niko Resendiz MD [address] [place] [address]130 PCP - General Internal Medicine 01/11/14 01/29/14 Carlie Mac MD [address] [place] [address] PCP - General Pediatrics 01/30/14 07/17/15 Angella Mendieta MD [address] [place] [address] PCP - General Family Practice 07/18/15 09/11/15 Julito Banuelos MD [address] [place] [address] PCP - General Family Practice 09/12/15 09/23/21 Julito Banuelos MD [address] [place] [address] PCP - Assigned PCP 02/17/16 12/28/18 Vika Kevin APRN POLYMER TESTER [address] [place] [address] 44812 PCP - General Nurse Practitioner - Family 09/24/21 03/05/22 Vika Kevin APRN POLYMER TESTER [address] [place] [address] 23025 PCP - General Nurse Practitioner - Family 03/18/22 06/18/22 Vika Kevin APRN POLYMER TESTER [address] [place] [address] 169862 PCP - General Nurse Practitioner - Family 07/24/22 Julito Banuelos MD [address] [place] [address] 626822 Assigned PCP 02/17/16 07/21/[address] [place] [address] Lead Worker Of Housekeeping And Laundry Dietitian, Registered 04/14/19 Mary Kay Jones, [facility] Pharmacist 08/01/19 04/20/20 [facility] [address] [place] [address] 8[address] [place], [place] [address] Pharmacist Pharmacist 08/08/19 04/15/21 [facility] [address] [place], [place] [address] Pharmacist Pharmacist 06/25/20 04/15/21 Vika Kevin APRN POLYMER TESTER [address] [place] [address] 154412 Assigned PCP 07/22/20 11/16/24 Marilyn Willard MD [address] [place] [address] 394 [place] [address] Assigned Surgical Provider 08/17/20 08/16/24 Carie Varela DO [address] [place], [place] [address] Assigned Heart and Vascular Provider 08/17/20 01/19/21 Maylin May NP [address] [place], [place] [address] Assigned Pediatric Specialist Provider 12/16/20 06/13/22 Marisa Rodrigues, RN Clinic Joiner 01/15/21 02/26/21 Vilma Long MD [address] [place] [address] Assigned Heart and Vascular Provider 01/20/21 07/20/21 [facility] [address] [place] [address] Pharmacist Pharmacist 06/04/21 01/15/22 Cole George LISW Lead Joiner 06/13/21 10/07/21 Fletcher Up Community Health Worker 06/13/21 09/12/21 Bautista Casey MD [address] [place] [address] Assigned Heart and Vascular Provider 07/21/21 01/16/23 Jasmyn Oliver CHW Community Health Worker 09/13/21 10/07/21 [facility] [address] [place] [address] 144125 Assigned MTM Pharmacist 03/22/22 01/02/23 documented as of this encounter
--- OUTSIDE RECORDS SUMMARY | 2025-04-13 17:30 | XMS_ITS | Encounter Summary ---
Author Organization [place] Address [address] [facility] [place] [address] Care Team Providers Care Salvage Machine Operator Name Role Phone Andrwe Lu MD Primary Care Provider [phone] Niko Resendiz MD Primary Care Provider Carlie Mac MD Primary Care Provide r Angella Mendieta MD Primary Care Provider Julito Banuelos MD Primary Care Provider [phone] Julito Banuelos MD Unavailable Julito Banuelos MD Unavailable Aleshia [address] Unavailable Unavailable Mary Kay Jones [facility] Unavailable Unavailable Susannah Blankenship [facility] Unavailable [phone] Carolyn Huynh [facility] Unavailable [phone] Vika Kevin APRN LIBRARY CONSULTANT Unavailable + Marilyn Willard MD Unavailable [phone] Carie Varela DO Unavailable +[phone] Maylin May NP Unavailable [phone] Marisa Rodrigues RN Unavailable Unavailable Vilma Long MD Unavailable + [phone] Yasmeen Pendleton [facility] Unavailable [phone] Cole George Unavailable Fletcher Russell Unavailable Unavailable Bautista Casey MD Unavailable [phone] AnnyJasmyn tracey [facility] Unavailable [phone] Vika Kevin APRN [facility] Primary Care Prov ider Vika Kevin APRN [facility] Primary Care Prov ider Yasmeen Pendleton [facility] Unavailable [phone] Vika Kevin APRN [facility] Primary Care Prov ider Reason for Visit * Reason Onset Date Comments Refill Request 05/02/2012 Encounter Details Date Type Department Care Team (Late st Contact Info) Description 05/02/2012 MyC Refill [address] [phone] Andrew Lu MD XXX RETIRED XXX [address] [place] [phone] Refill Request Social History Tobacco Use [...] on file Legal 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 IMPORT MANAGER Gender Identity Not on file Sexual [...] capsule [Andrew Lu MD, MD] Preferred pharmacy: [facility] Comment: documented in this encounter Plan of Treatment Not on file documented as of this encounter Visit Diagnoses Diagnosis Cellulitis of leg- Primary Cellulitis and abscess of leg, except foot documented in this encounter Additional Health Concerns Infection Onset Date Last Indicated Resolved Time Rule Out COVID-19 07/25/2020 07/25/2020 07/26/2020 3:02 PM CDT Rule Out COVID-19 12/04/2020 12/04/2020 12/05/2020 6:04 PM IMPORT MANAGER documented as of this encounter Care Teams Salvage Machine Operator Relationship Specialty Start Date End Date Andrew Lu MD XXX RETIRED XXX [address] [place] [phone] PCP - General 12/10/01 01/10/14 Niko Resendiz MD [address] [place] [address] PCP - General Internal Medicine 01/11/14 01/29/14 Carlie Mac MD [address] [place] [address] PCP - General Pediatrics 01/30/14 07/17/15 Angella Mendieta MD [address] [place] [address], [place] [address] PCP - General Family Practice 07/18/15 09/11/15 Julito Banuelos MD [address] [place] [address] PCP - General Family Practice 09/12/15 09/23/21 Julito Banuelos MD [address] [place] [address], [place] [address] PCP - Assigned PCP 02/17/16 12/28/18 Vika Kevin APRN LIBRARY CONSULTANT [address] [place] [address] PCP - General Nurse Practitioner - Family 09/24/21 03/05/22 Vika Kevin APRN LIBRARY CONSULTANT [address] [place] [address] PCP - General Nurse Practitioner - Family 03/18/22 06/18/22 Vika Kevin APRN LIBRARY CONSULTANT [address] [place] [address] PCP - General Nurse Practitioner - Family 07/24/22 Julito Banuelos MD [address] [place] [address] Assigned PCP 02/17/16 07/21/[address] [place] [address] Office Mail Clerk Dietitian, Registered 04/14/19 Mary Kay Jones, [facility] Pharmacist 08/01/19 04/20/20 Susannah Blankenship, [facility] 420 [facility] [address] [place], [place] [address] Pharmacist Pharmacist 08/08/19 04/15/21 Carolyn Huynh, [facility] [address] [place] [address] Pharmacist Pharmacist 06/25/20 04/15/21 Vika Kevin, WAREHOUSE HAND LIBRARY CONSULTANT [address] [place] [address] [id number] Assigned PCP 07/22/20 11/16/24 Marilyn Willard MD 420 [facility] [address] [place], [place] [address] Assigned Surgical Provider 08/17/20 08/16/24 Carie Varela DO [address] [place] [address] Assigned Heart and Vascular Provider 08/17/20 01/19/21 Maylin May NP [address] [place], [place] [id number] Assigned Pediatric Specialist Provider 12/16/20 06/13/22 Marisa Rodrigues, RN Clinic Final Tester 01/15/21 02/26/21 Vilma Long MD [address] [place] 184805 Assigned Heart and Vascular Provider 01/20/21 07/20/21 Yasmeen Pendleton, [facility] [address] [place] [address] Pharmacist Pharmacist 06/04/21 01/15/22 Cole George LISW Lead Final Tester 06/13/21 10/07/21 Fletcher Up Community Health Worker 06/13/21 09/12/21 Bautista Casey MD [address] [place] [address] Assigned Heart and Vascular Provider 07/21/21 01/16/23 Jasmyn Oliver CHW [facility] Health Worker 09/13/21 10/07/21 Yasmeen Pendleton [facility] [address] [place] [address] Assigned MTM Pharmacist 03/22/22 01/02/23 documented as of this encounter
--- OUTSIDE RECORDS SUMMARY | 2025-04-13 17:30 | XMS_ITS | Encounter Summary ---
Author Organization [place] Address [address] [facility] [place] [address] Care Team Providers Care Wreath And Garland Maker Name Role Phone Angella Mendieta MD Primary Care Provider Julito Banuelos MD Primary Care Provider [phone] Julito Banuelos MD Unavailable Julito Banuelos MD Unavailable Aleshia Henriquez RD Unavailable Unavailable Mary Kay Jones [facility] Unavailable Unavailable Susannah Blankenship [facility] Unavailable Carolyn Huynh [facility] Unavailable [phone] Vika Kevin APRN WATER MAIN INSPECTOR Unavailable + Marilyn Willard MD Unavailable [phone] Carie Varela DO Unavailable [phone] Maylin May NP Unavailable [phone] Marisa Rodrigues RN Unavailable Unavailable Vilma Long MD Unavailable + [phone] Yasmeen Pendleton [facility] Unavailable Cole George Unavailable Fletcher Russell Unavailable Unavailable Bautista Casey MD Unavailable [phone] Jasmyn Olievr CHW Unavailable [phone] Vika Kevin APRN [facility] Primary Care Prov ider Vika Kevin APRN [facility] Primary Care Prov ider + Yasmeen Pendleton [facility] Unavailable Vika Kevin APRN [facility] Primary Care Prov ider + Encounter Details Date Type Department Care Team (Late st Contact Info) Description 08/16/2015 MyC Medical Advice [facility] [place] [address] [facility] [address] [place] [address] Jaimee Donald MD HEART [facility] [address] [facility] [address] [place], [place] [id number] Social History Tobacco Use Types Packs/Day Years Used Date Smoking Tobacco: Former Cigarettes 0.3 15 0 10/26/1961 - 10/26/1976 Smokeless Tobacco: Never Alcohol Use Standard Drinks/Week Comments Yes 0 (1 standard drink = 0.6 oz pur e alcohol) 1-2 glasses of wine weekly Comments No Sex and Gender Information Value Date Recorded Sex Assigned at Not on file Legal 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 MOLD COOLER Gender Identity Not on file Sexual Orientation [...] Out COVID-19 12/04/2020 12/04/2020 12/05/2020 6:04 PM MOLD COOLER documented as of this encounter Care Teams Wreath And Garland Maker Relationship Specialty [place] [address] [place] [address] [id number] PCP - General Family Practice 07/18/15 09/11/15 Julito Banuelos MD [address] [place] [address] PCP - General Family Practice 09/12/15 09/23/21 Julito Banuelos MD [address] [place] [address] 17776 PCP - Assigned PCP 02/17/16 12/28/18 Vika Kevin APRN WATER MAIN INSPECTOR [address] [place] [address] PCP - General Nurse Practitioner - Family 09/24/21 03/05/22 Vika Kevin APRN WATER MAIN INSPECTOR [address] [place] [address] PCP - General Nurse Practitioner - Family 03/18/22 06/18/22 Vika Kevin APRN WATER MAIN INSPECTOR [address] [place] [address] PCP - General Nurse Practitioner - Family 07/24/22 Julito Banuelos MD [address] [place] [address] 23185 Assigned PCP 02/17/16 07/21/[address] [place] [address] Laborer Plumbing Dietitian, Registered 04/14/19 Mary Kay Jones, [facility] Pharmacist 08/01/19 04/20/20 Susannah Blankenship, [facility] [address] [facility] [address] [place] [address] Pharmacist Pharmacist 08/08/19 04/15/21 Carolyn Huynh [facility] [address] [place] [address] Pharmacist Pharmacist 06/25/20 04/15/21 Vika Kevin APRN WATER MAIN INSPECTOR [address] [place] [address] 908692 Assigned PCP 07/22/20 11/16/24 Marilyn Willard MD [address] [facility] [address] [place], [place] 7[address] Assigned Surgical Provider 08/17/20 08/16/24 Carie Varela DO [address] [place] [address] Assigned Heart and Vascular Provider 08/17/20 01/19/21 Maylin May NP [address] [facility] [place] [place] [id number] Assigned Pediatric Specialist Provider 12/16/20 06/13/22 Marisa Rodrigues, RN Clinic Coiled Coil Inspector 01/15/21 02/26/21 Vilma Long MD [address] [place] 34[address] Assigned Heart and Vascular Provider 01/20/21 07/20/21 Yasmeen Pendleton [facility] [address] [place], [place] [address] Pharmacist Pharmacist 06/04/21 01/15/22 Cole George LISW Lead Coiled Coil Inspector 06/13/21 10/07/21 Fletcher Up Community Health Worker 06/13/21 09/12/21 Bautista Casey MD [address] [place], [place] [address] Assigned Heart and Vascular Provider 07/21/21 01/16/23 Jasmyn Oliver CHW Community Health Worker 09/13/21 10/07/21 Yasmeen Pendleton [facility] [address] [place] [address] Assigned MTM Pharmacist 03/22/22 01/02/23 documented as of this encounter
--- OUTSIDE RECORDS SUMMARY | 2025-04-13 17:30 | XMS_ITS | Encounter Summary ---
Author Organization [place] Address [address] [facility] [place] [address] Care Team Providers Care Milk Collector Name Role Phone Cortez Lu MD Primary Care Provider [phone] Niko Resendiz MD Primary Care Provider Carlie Mac MD Primary Care Provide r Angella Mendieta MD Primary Care Provider Julito Banuelos MD Primary Care Provider [phone] Julito Banuelos MD Unavailable Julito Banuelos MD Unavailable Aleshia Henriquez RD Unavailable Unavailable Mary Kay Jones [facility] Unavailable Unavailable Susannah Blankenship [facility] Unavailable [phone] Carolyn Huynh [facility] Unavailable [phone] Vika Kevin APRN LIMEHOUSE WORKER Unavailable + Marilyn Willard MD Unavailable [phone] Carie Varela DO Unavailable [phone] Maylin May NP Unavailable [phone] Marisa Rodrigues RN Unavailable Unavailable Vilma Long MD Unavailable + [phone] Yasmeen Pendleton [facility] Unavailable + [phone] Cole George Unavailable Fletcher Russell Unavailable Unavailable Bautista Casey MD Unavailable Jasmyn Oliver [facility] Unavailable [phone] Vika Kevin APRN [facility] Primary Care Prov ider Vika Kevin APRN [facility] Primary Care Prov ider Yasmeen Pendleton [facility] Unavailable + [phone] [facility] Primary Care Prov ider Encounter Details Date Type Department Care Team (Late st Contact Info) Description 02/01/2013 Office Visit-[facility] [address] [place] [address] Reji Davis MD [address] [place], [place] [id number] Social History Tobacco Use Types Packs/Day Years Used Date Smoking Tobacco: Former Cigarettes 0.3 15 0 10/26/1961 - 10/26/1976 Smokeless Tobacco: Never Alcohol Use Standard Drinks/Week Comments Yes 0 (1 standard drink = 0.6 oz pur e alcohol) 1-2 glasses of wine weekly Comments No Sex and Gender Information Value Date Recorded Sex Assigned at Not on file Legal 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 HEALTHCARE REPRESENTATIVE Gender Identity Not on file Sexual Orientation Not on file Occupation Industry Job Start Date Job End Date Not on file Not on file Not on file Not on file documented as of this encounter Progress Notes * Reji Davis MD - 02/01/2013 2:34 PM CDT Progress Note Created by: Reji Davis Dictation # [id number] DATE: 01/28/2013 MARIALUISA COSBY DATE OF : 1940 AGE: [age] years old Referring Physician: CORTEZ LU Referring Clinic: [facility] CURRENT DIAGNOSES 1. Diabetes Nangkkwy-Lio-Xlkiiho Dependent, 250.00 2. - Hyperlipidemia mixed, 272.2 3. - Hypertension, 401.1 4. - CAD, 414.00 ALLERGIES lisinopril Nitrofurantoin Nitrofurantoin Macrocrystal pramipexole Di-HCl Sulfasalazine tolterodine tartrate zolpidem tartrate MEDICATIONS (prior to changes made today) 1. Asmanex Twisthaler 220 mcg (120 doses) Aerosol Powdr [facility] ActivInhl, Take as Directed 2. aspirin, [...] daily 9. Nasacort AQ 55 mcg Aerosol, Register, Take as Directed 10. Plavix 75 mg [...] HISTORY OF PRESENT ILLNESS INDICATION: History of rmz-ZX-tyireeq elevation TN, here to establish care. Ms. Cosby is a very pleasant 72-year-old female with a history of hypertension, hyperlipidemia,and type 2 diabetes mellitus. She was wintering in [place] when she developed acute onset one evening of back pain with radiation into her chest. She also had associated slight shortness of breath. She had had complaints of shortness of breath with exertion for some time, but it appeared worse the several weeks prior to this event. She subsequently went to the Emergency Room and was found to havehad a zxd-ZG-bjmuhlo elevation TN. On 12/27/12 she was taken to the Cardiac Catheterization Lab at [facility] in [place], [place]. There she was found to have significant disease of the left circumflex artery. She underwent two drug-eluting stent implantations. The first was a 2.5x12 mm [place] Resolute drug-eluting stent to the mid circumflex. The second was a 3.0x15 mm [place] Resolute drug-eluting stent to the proximal left [...] on the echocardiogram. She has returned to [place] and states that she has been feeling tired but she has had no recurrent anginal symptoms. She denies any recurrent back pain or shortness of breath. Currently she has been having some dyspnea with exertion but she attributes this to not having taken her Lasix as she recently drove back from [place]. She is planning to take her Lasix over the next several days. She denies any orthopnea. No paroxysmal nocturnal dyspnea. No nausea, vomiting, diaphoresis, syncope, or presyncope. PAST HISTORY Past Medical Illnesses: asthma, HTN, hypothyoidism, diabetes, hyperlipidemia, major depression, anxiety Past Cardiac Illnesses: CAD, s/p TN Surgeries/Procedures - General: hysterectomy Cardiac/Vasc Procedures-Invasive: left heart cath 12/2012 ([place]) Cardiology Procedures-NonInvasive: echocardiogram Jun 2007, myocardial perfusion (Nuc) Jun 2007, echo 12/2012 ([place]) Cardiac Cath Results: 12/2012 [place] Resolute NELIA to the mid and prox [...] - lives with and been living in [place] for 3 months; Place of - [place]; [...] [place] but they can get bad in [place] too PHYSICAL EXAMINATION VITAL SIGNS: Blood Pressure: [...] #0 (Zero) Nasacort AQ 55 mcg Aerosol, Register, Take as Directed, #0 (Zero) Plavix 75 [...] (Zero) Physician Order IMPRESSIONS/PLAN 1. History of jem-SV-funjjfu elevation TN. 2. Coronary artery disease - status post [...] her up for cardiac rehab in the [place] office since this is where she lives. [...] days while she was traveling back from [place]. She is to contact the clinic should [...] Out COVID-19 12/04/2020 12/04/2020 12/05/2020 6:04 PM HEALTHCARE REPRESENTATIVE documented as of this encounter Care Teams Milk Collector Relationship Specialty Start Date End Date Cortez Lu MD XXX RETIRED XXX [address] [place] [address] PCP - General 12/10/01 01/10/14 Niko Resendiz MD [address] [address] PCP - General Internal Medicine 01/11/14 01/29/14 Carlie Mac MD [address] [place] [address] PCP - General Pediatrics 01/30/14 07/17/15 Angella Mendieta MD [address] [place] [address] PCP - General Family Practice 07/18/15 09/11/15 Julito Banuelos MD [address] [place] [address] PCP - General Family Practice 09/12/15 09/23/21 Julito Banuelos MD [address] [place] [address] PCP - Assigned PCP 02/17/16 12/28/18 Vika Kevin APRN LIMEHOUSE WORKER [address] [place] [address] PCP - General Nurse Practitioner - Family 09/24/21 03/05/22 Vika Kevin APRN LIMEHOUSE WORKER [address] [place] [address]11 PCP - General Nurse Practitioner - Family 03/18/22 06/18/22 Vika Kevin APRN LIMEHOUSE WORKER [address] [place] [address] PCP - General Nurse Practitioner - Family 07/24/22 Julito Banuelos MD [address] [place] [address] 435032 Assigned PCP 02/17/16 07/21/[address] [place] [address] Boat Officer Dietitian, Registered 04/14/19 Mary Kay Jones, [facility] Pharmacist 08/01/19 04/20/20 [facility] [address] [place] [address] 8[address] [place], [place] [address] Pharmacist Pharmacist 08/08/19 04/15/21 Carolyn Huynh [facility] [address] [place], [place] [address] Pharmacist Pharmacist 06/25/20 04/15/21 Vika Kevin APRN LIMEHOUSE WORKER [address] [place] [address] 340482 Assigned PCP 07/22/20 11/16/24 Marilyn Willard MD [address] [place] [address] [address] [place], [place] [address] Assigned Surgical Provider 08/17/20 08/16/24 Carie Varela DO [address] [place], [place] [address] Assigned Heart and Vascular Provider 08/17/20 01/19/21 Maylin May NP [address] [place], [place] [id number] Assigned Pediatric Specialist Provider 12/16/20 06/13/22 Marisa Rodrigues, RN Clinic Space Engineer 01/15/21 02/26/21 Vilma Long MD [address] [place] [address] Assigned Heart and Vascular Provider 01/20/21 07/20/21 [facility] 9 [place], [place] [address] Pharmacist Pharmacist 06/04/21 01/15/22 Cole George LISW Lead Space Engineer 06/13/21 10/07/21 Fletcher Up Community Health Worker 06/13/21 09/12/21 Bautista Casey MD [address] [place] [address] Assigned Heart and Vascular Provider 07/21/21 01/16/23 Jasmyn Oliver CHW Community Health Worker 09/13/21 10/07/21 Yasmeen Pendleton [facility] [address] [place] [address] Assigned MTM Pharmacist 03/22/22 01/02/23 documented as of this encounter
--- OUTSIDE RECORDS SUMMARY | 2025-04-13 17:30 | XMS_ITS | Encounter Summary ---
Author Organization [place] Address [address] [facility] [place] [address] Care Team Providers Care Bobtailer Name Role Phone Andrew Lu MD Primary Care Provider [phone] Niko Resendiz MD Primary Care Provider Carlie Mac MD Primary Care Provide r Angella Mendieta MD Primary Care Provider Julito Banuelos MD Primary Care Provider [phone] Julito Banuelos MD Unavailable Julito Banuelos MD Unavailable Aleshia Henriquez RD Unavailable Unavailable Mary Kay Jones [facility] Unavailable Unavailable Susannah Blankenship [facility] Unavailable [phone] Carolyn Huynh [facility] Unavailable [phone] Vika Kevin APRN PRIMING MIXTURE CARRIER Unavailable + Marilyn Willard MD Unavailable [phone] Carie Varela DO Unavailable [phone] Maylin May NP Unavailable [phone] Marisa Rodrigues RN Unavailable Unavailable Vilma Long MD Unavailable + [phone] Yasmeen Pendleton [facility] Unavailable [phone] Cole George Unavailable Fletcher Russell Unavailable Unavailable Bautista Casey MD Unavailable AnnyJasmyn tracey [facility] Unavailable [phone] Vika Kevin APRN [facility] Primary Care Prov ider Vika Kevin APRN [facility] Primary Care Prov ider Yasmeen Pendleton [facility] Unavailable [phone] Vika Kevin [facility] Primary Care Prov ider Encounter Details Date Type Department Care Team (Late st Contact Info) Description 06/23/[address] [address] Andrew Lu MD XXX RETIRED XXX [address] [place] [address] OP REPT (Primary Dx) Social History [...] file Legal 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 SUPERVISOR CAR INSTALLATIONS Gender Identity Not on file Sexual Orientation Not on file 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 Chronic sinusitis. 2. [...] recover from anesthesia. Toni LOPEZ MD Document: [id number] [place], [place] MARIALUISA COSBY OPERATIV E REPORT Page 2 of 2 LCN:SDS DSC: 06/23/2003 [place], [place] Name: MR #: : Procedure Date: MARIALUISA COSBY [id number] 1940 06/23/2003 Doctor: Toni RASMUSSEN MD OPERATIVE [...] COVID-19 12/04/2020 12/04/2020 12/05/2020 6:04 PM SUPERVISOR CAR INSTALLATIONS documented as of this encounter Care Teams Bobtailer Relationship Specialty Start Date End Date Andrew Lu MD XXX RETIRED XXX [address] [place] [address] PCP - General 12/10/01 01/10/14 Niko Resendiz MD [address] [address] PCP - General Internal Medicine 01/11/14 01/29/14 Carlie Mac MD [address] [place] [address] PCP - General Pediatrics 01/30/14 07/17/15 Angella Mendieta MD [address] [place] [address] PCP - General Family Practice 07/18/15 09/11/15 Julito Banuelos MD [address] [place] [address] PCP - General Family Practice 09/12/15 09/23/21 Julito Banuelos MD [address] [place] [address] PCP - Assigned PCP 02/17/16 12/28/18 Vika Kevin APRN PRIMING MIXTURE CARRIER [address] [place] [address] PCP - General Nurse Practitioner - Family 09/24/21 03/05/22 Vika Kevin APRN PRIMING MIXTURE CARRIER [address] [place] [address] PCP - General Nurse Practitioner - Family 03/18/22 06/18/22 Vika Kevin APRN PRIMING MIXTURE CARRIER [address] [place] [address] PCP - General Nurse Practitioner - Family 07/24/22 Julito Banuelos MD [address] [place] [address] Assigned PCP 02/17/16 07/21/20 Aleshia Henriquez, DAVE [address] [place] [address] Trackless Trolley Driver Dietitian, Registered 04/14/19 Mary Kay Jones, [facility] Pharmacist 08/01/19 04/20/20 [facility] [address] [place] [address] 8[address] [place], [place] [address] Pharmacist Pharmacist 08/08/19 04/15/21 [facility] [address] [place], [place] [address] Pharmacist Pharmacist 06/25/20 04/15/21 Vika Kevin APRN PRIMING MIXTURE CARRIER [address] [place] [address] Assigned PCP 07/22/20 11/16/24 Marilyn Willard MD [address] [place] [address] [address] [place], [place] [address] Assigned Surgical Provider 08/17/20 08/16/24 Carie Varela DO [address] [place], [place] [address] Assigned Heart and Vascular Provider 08/17/20 01/19/21 Maylin May NP [address] [place] [address] Assigned Pediatric Specialist Provider 12/16/20 06/13/22 Marisa Rodrigues, RN Clinic Senior Biostatistician 01/15/21 02/26/21 Vilma Long MD [address] [place] [address] Assigned Heart and Vascular Provider 01/20/21 07/20/21 [facility] 9[address] [place] [address] Pharmacist Pharmacist 06/04/21 01/15/22 Cole George LISW Lead Senior Biostatistician 06/13/21 10/07/21 Fletcher Up Community Health Worker 06/13/21 09/12/21 Bautista Casey MD [address] [place] [address] Assigned Heart and Vascular Provider 07/21/21 01/16/23 Jasmyn Oliver CHW Community Health Worker 09/13/21 10/07/21 [facility] [address] [place], [place] [address] Assigned MTM Pharmacist 03/22/22 01/02/23 documented as of this encounter
--- OUTSIDE RECORDS SUMMARY | 2025-04-13 17:30 | XMS_ITS | Encounter Summary ---
Author Organization [place] Address [address] [facility] [place] [address] Care Team Providers Care Top Frame Fitter Name Role Phone Cortez Lu MD Primary Care Provider [phone] Niko Resendiz MD Primary Care Provider Carlie Mac MD Primary Care Provide r Angella Mendieta MD Primary Care Provider Julito Banuelos MD Primary Care Provider [phone] Julito Banuelos MD Unavailable Julito Banuelos MD Unavailable Aleshia eHnriquez RD Unavailable Unavailable Mary Kay Jones [facility] Unavailable Unavailable Susannah Blankenship [facility] Unavailable [phone] Carolyn Huynh [facility] Unavailable +[phone] Vika Kevin APRN DIRECTOR OF TRAINING Unavailable + Marilyn Willard MD Unavailable [phone] Carie Varela DO Unavailable +[phone] Maylin May NP Unavailable [phone] Marisa Rodrigues RN Unavailable Unavailable Vilma Long MD Unavailable + [phone] Yasmeen Pendleton [facility] Unavailable + [phone] Cole George Unavailable Fletcher Russell Unavailable Unavailable Bautista MD Unavailable [phone] Jasmyn Oliver [facility] Unavailable [phone] Vika Kevin APRN [facility] Primary Care Prov ider Vika Kevin APRN [facility] Primary Care Prov ider Yasmeen Pendleton [facility] Unavailable + [phone] [facility] Primary Care Prov ider Encounter Details Date Type Department Care Team (Late st Contact Info) Description 04/22/2013 Office Visit-[facility] [address] [place] [address] Reji Davis MD [address] [place], [place] [id number] Social History Tobacco Use Types Packs/Day Years Used Date Smoking Tobacco: Former Cigarettes 0.3 15 0 10/26/1961 - 10/26/1976 Smokeless Tobacco: Never Alcohol Use Standard Drinks/Week Comments Yes 0 (1 standard drink = 0.6 oz pur e alcohol) 1-2 glasses of wine weekly Comments No Sex and Gender Information Value Date Recorded Sex Assigned at Not on file Legal 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 ROOF BOLTER OPERATOR Gender Identity Not on file Sexual Orientation Not on file Occupation Industry Job Start Date Job End Date Not on file Not on file Not on file Not on file documented as of this encounter Progress Notes * Reji Davis MD - 04/26/2013 1:24 PM CDT Progress Note Created by: Reji Davis MD #[id number] DATE: 04/22/2013 MARIALUISA COSBY DATE OF : 1940 AGE: [age] years old Referring Physician: CORTEZ LU Referring Clinic: [facility] CURRENT DIAGNOSES 1. Diabetes Qzbrpqyb-Zqq-Iymbfic Dependent, 250.00 2. - Hyperlipidemia mixed, 272.2 [...] daily 12. Nasacort AQ 55 mcg Aerosol, [place], Take as Directed 13. Plavix 75 mg [...] circumflex artery in December of 2012 at [facility] in [place], [place] following presentation for non-ST segment elevation ND. I last saw her inApril of this [...] Illnesses: CAD, s/p ND Surgeries/Procedures - General: hysterectomy Cardiac/Vasc Procedures-Invasive: left heart cath 12/2012 ([place]) Cardiology Procedures-NonInvasive: echocardiogram Jun 2007, myocardial perfusion (Nuc) Jun 2007, echo 12/2012 ([place]), stress echo February 2013 Cardiac Cath Results: 12/2012 [place] [facility] NELIA to the mid and prox [...] - lives with and been living in [place] for 3 months; Place of - [place]; REVIEW OF SYSTEMS GENERAL fatigue, weight loss, [...] takes allergy shots, allergies get worse in [place] but they can get bad in [place] too PHYSICAL EXAMINATION VITAL SIGNS: Blood Pressure: [...] symptoms similar to what she had in [place] then I will need to see her [...] Out COVID-19 12/04/2020 12/04/2020 12/05/2020 6:04 PM ROOF BOLTER OPERATOR documented as of this encounter Care Teams Top Frame Fitter Relationship Specialty Start Date End Date Cortez Lu MD XXX RETIRED XXX [address] [place] [address] PCP - General 12/10/01 01/10/14 Niko Resendiz MD [address] [place] [address] PCP - General Internal Medicine 01/11/14 01/29/14 Carlie Mac MD [address] [place] [address] PCP - General Pediatrics 01/30/14 07/17/15 Angella Mendieta MD [facility] [place] [address] PCP - General Family Practice 07/18/15 09/11/15 Julito Banuelos MD [address] [place] [address] PCP - General Family Practice 09/12/15 09/23/21 Julito Banuelos MD [address] [place] [address] PCP - Assigned PCP 02/17/16 12/28/18 Vika Kevin APRN DIRECTOR OF TRAINING [address] [place] [address] PCP - General Nurse Practitioner - Family 09/24/21 03/05/22 Vika Kevin APRN DIRECTOR OF TRAINING [address] [place] [address] PCP - General Nurse Practitioner - Family 03/18/22 06/18/22 Vika Kevin APRN DIRECTOR OF TRAINING [address] [place] [address] PCP - General Nurse Practitioner - Family 07/24/22 Julito Banuelos MD [address] [place] [address]19 Assigned PCP 02/17/16 07/21/[address] [place] [address] Senior Data Warehouse Developer Dietitian, Registered 04/14/19 Mary Kay Jones [facility] 08/01/19 04/20/20 Susannah Blankenship [facility] [address] [facility] 812 [place] [address] Pharmacist Pharmacist 08/08/19 04/15/21 Carolyn Huynh [facility] [address] [place] [address] Pharmacist Pharmacist 06/25/20 04/15/21 Vika Kevin, JAIME DIRECTOR OF TRAINING [address] [place] [address] 003612 Assigned PCP 07/22/20 11/16/24 Marilyn Willard MD 420 [facility] 394 [place], [place] [address] Assigned Surgical Provider 08/17/20 08/16/24 Carie Varela DO [address] [place] [address] Assigned Heart and Vascular Provider 08/17/20 01/19/21 Maylin May NP [address] [place], [place] [id number] Assigned Pediatric Specialist Provider 12/16/20 06/13/22 Marisa Rodrigues, RN Clinic Dye Range Operator Cloth 01/15/21 02/26/21 Vilma Long MD [address] [place] [address] Assigned Heart and Vascular Provider 01/20/21 07/20/21 Yasmeen Pendleton [facility] [address] [place], [place] [address] Pharmacist Pharmacist 06/04/21 01/15/22 Cole George LISW Lead Dye Range Operator Cloth 06/13/21 10/07/21 Fletcher Up Community Health Worker 06/13/21 09/12/21 Bautista Casey MD [address] [place], [place] [address] Assigned Heart and Vascular Provider 07/21/21 01/16/23 Jasmyn Oliver CHW Community Health Worker 09/13/21 10/07/21 Yasmeen Pendleton [facility] [address] [place] [address] Assigned MTM Pharmacist 03/22/22 01/02/23 documented as of this encounter
--- OUTSIDE RECORDS SUMMARY | 2025-04-13 17:30 | XMS_ITS | Encounter Summary ---
Author Organization [place] Address [address] [facility] [place] [address] Care Team Providers Care Camera Engineer Name Role Phone Julito Banuelos MD Primary Care Provider [phone] Julito Banuelos MD Unavailable Aleshia Henriquez RD Unavailable Unavailable Mary Kay Jones [facility] Unavailable Unavailable Susannah Blankenship [facility] Unavailable [phone] Carolyn Huynh [facility] Unavailable [phone] Vika Kevin APRN SAS SQL DEVELOPER Unavailable + Marilyn Willard MD Unavailable [phone] Carie Varela DO Unavailable [phone] Maylin May NP Unavailable [phone] Marisa Hernandez RN Unavailable Unavailable Vilma Long MD Unavailable Yasmeen Pendleton [facility] Unavailable Cole George Unavailable Fletcher Russell Unavailable Unavailable Bautista Casey MD Unavailable Jasmyn Oliver [facility] Unavailable [phone] Vika Kevin APRN SAS SQL DEVELOPER Primary Care Prov ider Vika Kevin APRN [facility] Primary Care Prov ider Yasmeen Pendleton [facility] Unavailable + [phone] Vika Kevin APRN [facility] Primary Care Prov ider Encounter Details Date Type Department Care Team (Late st Contact Info) Description 03/28/2020 MyC Medical Advice [facility] [address] [address] Panda Sibley MD [address] [place], [place] [id number] Social History Tobacco Use Types Packs/Day Years [...] on file Legal 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 SIEBEL ARCHITECT Gender Identity Not on file Sexual [...] Out COVID-19 12/04/2020 12/04/2020 12/05/2020 6:04 PM SIEBEL ARCHITECT Assessment Noted Time PHQ-9 Depression Total Score: 8 07/18/20 19 12:06 PM CDT documented as of this encounter Care Teams Camera Engineer Relationship Specialty Start Date End Date Julito Banuelos MD [address] [place] [address] PCP - General Family Practice 09/12/15 09/23/21 Vika Kevin APRN SAS SQL DEVELOPER [address] [place] [address] PCP - General Nurse Practitioner - Family 09/24/21 03/05/22 Vika Kevin APRN SAS SQL DEVELOPER [address] [place] [address] [id number] PCP - General Nurse Practitioner - Family 03/18/22 06/18/22 Vika Kevin APRN SAS SQL DEVELOPER [address] [place] [address] 792192 PCP - General Nurse Practitioner - Family 07/24/22 Julito Banuelos MD [address] [place] [address] [phone] Assigned PCP 02/17/16 07/21/[address] [place] [address] Glassware Finisher Dietitian, Registered 04/14/19 Mary Kay Jones [facility] Pharmacist 08/01/19 04/20/20 Susannah Blankenship [facility] [address] [place] [address] 8[address] [place], [place] [address] Pharmacist Pharmacist 08/08/19 04/15/21 Carolyn Huynh [facility] [address] [place], [place] [address] Pharmacist Pharmacist 06/25/20 04/15/21 Vika Kevin APRN SAS SQL DEVELOPER [address] [place], [place] [address] Assigned PCP 07/22/20 11/16/24 Marilyn Willard MD 420 [facility] [address] [place], [place] [address] Assigned Surgical Provider 08/17/20 08/16/24 Carie Varela DO [address] [place] [address] Assigned Heart and Vascular Provider 08/17/20 01/19/21 Maylin May NP [address] [place], [place] [address] Assigned Pediatric Specialist Provider 12/16/20 06/13/22 Marisa Rodrigues, RN Clinic Toolman 01/15/21 02/26/21 Vilma Long MD [address] [place] [address] Assigned Heart and Vascular Provider 01/20/21 07/20/21 Yasmeen Pendleton [facility] [address] [place] [address] Pharmacist Pharmacist 06/04/21 01/15/22 Cole George LISW Lead Toolman 06/13/21 10/07/21 Fletcher Up Community Health Worker 06/13/21 09/12/21 Bautista Casey MD [address] [place] [address] Assigned Heart and Vascular Provider 07/21/21 01/16/23 Jasmyn Oliver CHW Community Health Worker 09/13/21 10/07/21 Yasmeen Pendleton [facility] 9 [place] [address] Assigned MTM Pharmacist 03/22/22 01/02/23 documented as of this encounter
--- OUTSIDE RECORDS SUMMARY | 2025-04-13 17:30 | XMS_ITS | Encounter Summary ---
Author Organization [place] Address [address] [facility] [place] [address] Care Team Providers Care Loss Prevention Lead Name Role Phone Julito Banuelos MD Primary Care Provider [phone] Julito Banuelos MD Unavailable Aleshia Henriquez RD Unavailable Unavailable Susannah Blankenship [facility] Unavailable [phone] Carolyn Huynh [facility] Unavailable [phone] Vika Kevin APRN PHARMACIST INTERN Unavailable + Marilyn Willard MD Unavailable [phone] Carie Varela DO Unavailable [phone] Maylin May NP Unavailable [phone] Marisa Hernandez RN Unavailable Unavailable Vilma Long MD Unavailable + [phone] Yasmeen Pendleton [facility] Unavailable Cole George Unavailable Fletcher Russell Unavailable Unavailable Bautista Casey MD Unavailable [phone] Jasmyn Oliver Unavailable [phone] Vika Kevin APRN PHARMACIST INTERN Primary Care Prov ider Vika Kevin APRN [facility] Primary Care Prov ider Yasmeen Pendleton [facility] Unavailable [phone] Vika Kevin APRN [facility] Primary Care Prov ider Encounter Details Date Type Department Care Team (Late st Contact Info) Description 05/08/2020 MyC Medical Advice [address] [place] [address] Susannah Blankenship, [facility] 420 [facility] 812 [place] [address] Social History Tobacco Use Types Packs/Day Years [...] on file Legal 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 TABULATING CLERK Gender Identity Not on file Sexual [...] Out COVID-19 12/04/2020 12/04/2020 12/05/2020 6:04 PM TABULATING CLERK Assessment Noted Time PHQ-9 Depression Total Score: 8 07/18/20 19 12:06 PM CDT documented as of this encounter Care Teams Loss Prevention Lead Relationship Specialty [place] [address] [place] [address] PCP - General Family Practice 09/12/15 09/23/21 Vika Kevin APRN PHARMACIST INTERN [address] [place] [address] PCP - General Nurse Practitioner - Family 09/24/21 03/05/22 Vika Kevin APRN PHARMACIST INTERN [address] [place] [address] PCP - General Nurse Practitioner - Family 03/18/22 06/18/22 Vika Kevin APRN PHARMACIST INTERN [address] [place] [address] PCP - General Nurse Practitioner - Family 07/24/22 Julito Banuelos MD [address] [place] [address] [phone] Assigned PCP 02/17/16 07/21/[address] [place] [address] Dietitian, Registered 04/14/19 Susannah Blankenship, [facility] [address] [place] [address] 8[address] [place] [address] Pharmacist Pharmacist 08/08/19 04/15/21 Carolyn Huynh [facility] [address] [place] [address] Pharmacist Pharmacist 06/25/20 04/15/21 Vika Kevin APRN PHARMACIST INTERN [address] [place] [address] Assigned PCP 07/22/20 11/16/24 Marilyn Willard MD [address] [place] [address] 394 [place] [address] Assigned Surgical Provider 08/17/20 08/16/24 Carie Varela DO [address] [place] [address] Assigned Heart and Vascular Provider 08/17/20 01/19/21 Maylin May NP [address] [place] [address] Assigned Pediatric Specialist Provider 12/16/20 06/13/22 Marisa Rodrigues, RN Clinic Site Interpreter 01/15/21 02/26/21 Vilma Long MD [address] [place] [address] Assigned Heart and Vascular Provider 01/20/21 07/20/21 Yasmeen Pendleton [facility] [address] [place] [address] [phone] Pharmacist Pharmacist 06/04/21 01/15/22 Cole George LISW Lead Site Interpreter 06/13/21 10/07/21 Fletcher Up Community Health Worker 06/13/21 09/12/21 Bautista Casey MD [address] [place] [address] Assigned Heart and Vascular Provider 07/21/21 01/16/23 Jasmyn Oliver CHW Community Health Worker 09/13/21 10/07/21 Yasmeen Pendleton [facility] 9 [place] [address] Assigned MTM Pharmacist 03/22/22 01/02/23 documented as of this encounter
--- OUTSIDE RECORDS SUMMARY | 2025-04-13 17:30 | XMS_ITS | Encounter Summary ---
Author Organization [place] Address [address] [place] [address] Care Team Providers Care Greige Goods Examiner Name Role Phone Andrew Lu MD Primary Care Provider [phone] Niko Resendiz MD Primary Care Provider Carlie Mac MD Primary Care Provide r Angella Mendieta MD Primary Care Provider Julito Banuelos MD Primary Care Provider [phone] Julito Banuelos MD Unavailable Julito Banuelos MD Unavailable Aleshia Henriquez RD Unavailable Unavailable Mary Kay Jones [facility] Unavailable Unavailable Susannah Blankenship [facility] Unavailable [phone] Carolyn Huynh [facility] Unavailable [phone] Vika Kevin APRN SOFTWARE ANALYST Unavailable + Marilyn Willard MD Unavailable [phone] Carie Varela DO Unavailable [phone] Maylin May NP Unavailable [phone] Marisa Rodrigues RN Unavailable Unavailable Vilma Long MD Unavailable + [phone] Yasmeen Pendleton [facility] Unavailable [phone] Cole George Unavailable Fletcher Russell Unavailable Unavailable Bautista Casey MD Unavailable AnnyJasmyn tracey [facility] Unavailable [phone] Vika Kevin APRN [facility] Primary Care Prov ider Vika Kevin APRN [facility] Primary Care Prov ider Yasmeen Pendleton [facility] Unavailable [phone] V[facility] Primary Care Prov ider Encounter Details Date Type Department Care Team (Late st Contact Info) Description 06/28/2013 MyC Medical Advice [address] [address] Denis Rojas MD [address] [place] [phone] Social History Tobacco Use Types Packs/Day Years Used Date Smoking Tobacco: Former Cigarettes 0.3 15 0 10/26/1961 - 10/26/1976 Smokeless Tobacco: Never Alcohol Use Standard Drinks/Week Comments Yes 0 (1 standard drink = 0.6 oz pur e alcohol) 1-2 glasses of wine weekly Comments No Sex and Gender Information Value Date Recorded Sex Assigned at Not on file Legal 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 FINANCIAL SYSTEMS ANALYST Gender Identity Not on file Sexual [...] Out COVID-19 12/04/2020 12/04/2020 12/05/2020 6:04 PM FINANCIAL SYSTEMS ANALYST documented as of this encounter Care Teams Greige Goods Examiner Relationship Specialty Start Date End Date Andrew Lu MD XXX RETIRED XXX [address] [place] [address] PCP - General 12/10/01 01/10/14 Niko Resendiz MD [address] [place] [address]28 PCP - General Internal Medicine 01/11/14 01/29/14 Carlie Mac MD [address] [place] [address] PCP - General Pediatrics 01/30/14 07/17/15 Angella Mendieta MD [address] [place] [address] PCP - General Family Practice 07/18/15 09/11/15 Julito Banuelos MD [address] [place] [address] PCP - General Family Practice 09/12/15 09/23/21 Julito Banuelos MD [address] [place] [address] PCP - Assigned PCP 02/17/16 12/28/18 Vika Kevin APRN SOFTWARE ANALYST [address] [place] [address] PCP - General Nurse Practitioner - Family 09/24/21 03/05/22 Vika Kevin APRN SOFTWARE ANALYST [address] [place] [address] PCP - General Nurse Practitioner - Family 03/18/22 06/18/22 Vika Kevin APRN SOFTWARE ANALYST [address] [place] [address] 844282 PCP - General Nurse Practitioner - Family 07/24/22 Julito Banuelos MD [address] [place] [address] 080172 Assigned PCP 02/17/16 07/21/[address] [place] [address] Air Carrier Maintenance Inspector Dietitian, Registered 04/14/19 Mary Kay Jones, [facility] Pharmacist 08/01/19 04/20/20 Susannah Blankenship, [facility] [address] [facility] 812 [place], [place] [address] Pharmacist Pharmacist 08/08/19 04/15/21 Carolyn Huynh, [facility] [address] [place], [place] [address] Pharmacist Pharmacist 06/25/20 04/15/21 Vika Kevin, JAIME SOFTWARE ANALYST [address] [place] [address] 986922 Assigned PCP 07/22/20 11/16/24 Marilyn Willard MD 420 [facility] 394 [place], [place] [address] Assigned Surgical Provider 08/17/20 08/16/24 Carie Varela DO [address] [place] [address] Assigned Heart and Vascular Provider 08/17/20 01/19/21 Maylin May NP [address] [facility] [place] [address] Assigned Pediatric Specialist Provider 12/16/20 06/13/22 Marisa Rodrigues, RN Clinic Hat Braider 01/15/21 02/26/21 Vilma Long MD [address] [place] [address] Assigned Heart and Vascular Provider 01/20/21 07/20/21 [facility] [address] [place] [address] Pharmacist Pharmacist 06/04/21 01/15/22 Cole George LISW Lead Hat Braider 06/13/21 10/07/21 Fletcher Up Community Health Worker 06/13/21 09/12/21 Bautista Casey MD [address] [place] [address] Assigned Heart and Vascular Provider 07/21/21 01/16/23 Jasmyn Oliver CHW Community Health Worker 09/13/21 10/07/21 [facility] [address] [place] [address] Assigned MTM Pharmacist 03/22/22 01/02/23 documented as of this encounter
--- OUTSIDE RECORDS SUMMARY | 2025-04-13 17:30 | XMS_ITS | Encounter Summary ---
Author Organization [place] Address [address] [facility] [place] [place] [address] Care Team Providers Care Cigar Packer And Grader Name Role Phone Julito Banuelos MD Primary Care Provider [phone] Julito Banuelos MD Unavailable Aleshia Henriquez RD Unavailable Unavailable Mary Kay Jones [facility] Unavailable Unavailable Susannah Blankenship [facility] Unavailable [phone] Carolyn Huynh [facility] Unavailable [phone] Vika Kevin APRN SAFETY ADVISOR Unavailable + Marilyn Willard MD Unavailable Carie Varela DO Unavailable [phone] Maylin May NP Unavailable [phone] Marisa Hernandez RN Unavailable Unavailable Vilma Long MD Unavailable Yasmeen Pendleton [facility] Unavailable [phone] Cole George Unavailable Fletcher Russell Unavailable Unavailable Bautista Casey MD Unavailable Jasmyn Oliver [facility] Unavailable [phone] Vika Kevin APRN SAFETY ADVISOR Primary Care Prov ider Vika Kevin APRN [facility] Primary Care Prov ider Yasmeen Pendleton [facility] Unavailable + [phone] Vika Kevin APRN [facility] Primary Care Prov ider Reason for Visit * Reason Comments Medication Refill Encounter Details Date Type Department Care Team (Late st Contact Info) Description 02/23/[address] [phone] [place] [address] [place] [address]372 Medication Refill Social History Tobacco Use [...] on file Legal 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 PSYCHIATRIC NURSING AIDE Gender Identity Not on file Sexual Orientation [...] review/approval because: Age Range Nazanin Zhong RN [facility] documented in this encounter Plan of Treatment [...] Out COVID-19 12/04/2020 12/04/2020 12/05/2020 6:04 PM PSYCHIATRIC NURSING AIDE Assessment Noted Time PHQ-9 Depression Total Score: 8 07/18/20 19 12:06 PM CDT documented as of this encounter Care Teams Cigar Packer And Grader Relationship Specialty Start Date End Date Julito Banuelos MD [address] [place] [address] 79346 PCP - General Family Practice 09/12/15 09/23/21 Vika Kevin APRN SAFETY ADVISOR [address] [place] [address] 87371 PCP - General Nurse Practitioner - Family 09/24/21 03/05/22 Vika Kvein APRN SAFETY ADVISOR [address] [place] [address] 77287 PCP - General Nurse Practitioner - Family 03/18/22 06/18/22 Vika Kevin APRN SAFETY ADVISOR [address] [place] [address] 90745 PCP - General Nurse Practitioner - Family 07/24/22 Julito Banuelos MD [address] [place] [address] 36935 Assigned PCP 02/17/16 07/21/[address] [place] [address] 47847 Exploitation Analyst Dietitian, Registered 04/14/19 Mary Kay Jones, [facility] Pharmacist 08/01/19 04/20/20 Susannah Blankenship, [facility] [address] [facility] [address] [place], [place] [address] Pharmacist Pharmacist 08/08/19 04/15/21 Carolyn Huynh, [facility] [address] [place] [address] Pharmacist Pharmacist 06/25/20 04/15/21 Vika Kevin, MORTGAGE PROCESSING MANAGER SAFETY ADVISOR [address] [place] [address] 938292 Assigned PCP 07/22/20 11/16/24 Marilyn Willard MD 420 [facility] 394 [place], [place] [address]95 Assigned Surgical Provider 08/17/20 08/16/24 Carie Varela DO [address] [place] 803175 Assigned Heart and Vascular Provider 08/17/20 01/19/21 Maylin May NP [address] [place], [place] [id number] Assigned Pediatric Specialist Provider 12/16/20 06/13/22 Marisa Rodrigues, RN Clinic Coin Box Inspector 01/15/21 02/26/21 Vilma Long MD [address] [place] [id number] Assigned Heart and Vascular Provider 01/20/21 07/20/21 Yasmeen Pendleton, [facility] [address] [place] [address] Pharmacist Pharmacist 06/04/21 01/15/22 Cole George LISW Lead Coin Box Inspector 06/13/21 10/07/21 Fletcher Up Community Health Worker 06/13/21 09/12/21 Bautista Casey MD [address] [place] [address] Assigned Heart and Vascular Provider 07/21/21 01/16/23 Jasmyn Oliver CHW [facility] Health Worker 09/13/21 10/07/21 Yasmeen Pendleton [facility] [address] [place] [address] Assigned MTM Pharmacist 03/22/22 01/02/23 documented as of this encounter
--- OUTSIDE RECORDS SUMMARY | 2025-04-13 17:30 | XMS_ITS | Clinical Summary ---
Author Organization [employer] Address [address] [place] [address] Care Team Providers Care Veterinarian Small Animal Name Role Phone Julito Banuelos MD Primary Care Provider [phone] Allergies Active Allergy Reactions Criticality Noted Date [...] on file Legal Sex Female 6:13 AM AUTO TECH Gender Identity Not on file Sexual Orientation Not on file Obstetrics History Last Filed Vital Signs Vital Sign Reading Time Taken Comments Blood Pressure 159/79 10/17/2018 10:16 AM AUTO TECH Pulse 78 10/17/2018 10:16 AM AUTO TECH Temperature 36.7 C (98 F) 10/17/2018 10:16 AM AUTO TECH Respiratory Rate 20 10/17/2018 10:16 AM AUTO TECH Oxygen Saturation 96% 10/17/2018 10:16 AM AUTO TECH Inhaled Oxygen Concentration - - Weight 98 kg (216 lb) 10/17/2018 10:16 AM AUTO TECH Height 172.7 cm (5' 8) 10/17/2018 10:16 AM AUTO TECH Body Mass Index 32.84 10/17/2018 10:16 AM AUTO TECH Plan of Treatment Health Maintenance Due Date [...] MEDICARE PART B HB ONLY BLUE CROSS [place] BLUE HB ONLY BLUE CROSS MEDICARE ADVANTAGE MR Care Teams Veterinarian Small Animal Relationship Specialty Start Date End Date Julito Banuelos MD PCP - General Family Practice 10/17/18
--- OUTSIDE RECORDS SUMMARY | 2025-04-13 17:30 | XMS_ITS | Encounter Summary ---
Author Organization [place] Address [address] [facility] [place] [address] Care Team Providers Care Information Systems Operator Name Role Phone Andrew Lu MD Primary Care Provider [phone] Niko Resendiz MD Primary Care Provider Carlie Mac MD Primary Care Provide r Angella Mendieta MD Primary Care Provider Julito Banuelos MD Primary Care Provider [phone] Julito Banuelos MD Unavailable Julito Banuelos MD Unavailable Aleshia Henriquez RD Unavailable Unavailable Mary Kay Jones [facility] Unavailable Unavailable Susannah Blankenship [facility] Unavailable [phone] Carolyn Huynh [facility] Unavailable [phone] Vika Kevin APRN AWS SOLUTION ARCHITECT Unavailable + Marilyn Willard MD Unavailable [phone] Carie Varela DO Unavailable [phone] Maylin May NP Unavailable [phone] Marisa Rodrigues RN Unavailable Unavailable Vilma Long MD Unavailable + [phone] Yasmeen Pendleton [facility] Unavailable [phone] Cole George Unavailable Fletcher Russell Unavailable Unavailable Bautista Casey MD Unavailable TatyanaJasmyn anand [facility] Unavailable [phone] Vika Kevin APRN [facility] Primary Care Prov ider Vika Kevin APRN [facility] Primary Care Prov ider Yasmeen Pendleton [facility] Unavailable [phone] Vika Kevin APRN [facility] Primary Care Prov ider Encounter Details Date Type Department Care Team (Late st Contact Info) Description 07/02/[address] [phone] Jolene Martin Social History Tobacco Use Types [...] on file Legal 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 COKE BURNER Gender Identity Not on file Sexual Orientation Not on file documented as of this encounter Plan of Treatment Not on file documented as of this encounter Visit Diagnoses Not on filedocumented in this encounter Additional Health Concerns Infection Onset Date Last Indicated Resolved Time Rule Out COVID-19 07/25/2020 07/25/2020 07/26/2020 3:02 PM CDT Rule Out COVID-19 12/04/2020 12/04/2020 12/05/2020 6:04 PM COKE BURNER documented as of this encounter Care Teams Information Systems Operator Relationship Specialty Start Date End Date Andrew Lu MD XXX RETIRED XXX [address] [place] [phone] PCP - General 12/10/01 01/10/14 Niko Resendiz MD [address] [address] PCP - General Internal Medicine 01/11/14 01/29/14 Carlie Mca MD [address] [place] [address] 92299 PCP - General Pediatrics 01/30/14 07/17/15 Angella Mendieta MD [address] [place] [address] 10828 PCP - General Family Practice 07/18/15 09/11/15 Julito Banuelos MD [address] [place] [address] 26399 PCP - General Family Practice 09/12/15 09/23/21 Julito Banuelos MD [address] [place] [address] 41157 PCP - Assigned PCP 02/17/16 12/28/18 Vika Kevin APRN AWS SOLUTION ARCHITECT [address] [place] [address] 15233 PCP - General Nurse Practitioner - Family 09/24/21 03/05/22 Vika Kevin APRN AWS SOLUTION ARCHITECT [address] [place] [address] 06048 PCP - General Nurse Practitioner - Family 03/18/22 06/18/22 Vika Kevin APRN AWS SOLUTION ARCHITECT [address] [place] [address] 064882 PCP - General Nurse Practitioner - Family 07/24/22 Julito Banuelos MD [address] [place] [address] 949842 Assigned PCP 02/17/16 07/21/20 Aleshia Henriquez, DAVE [address] [place] [address] 73032 Deskidding Machine Operator Dietitian, Registered 04/14/19 Mary Kay Jones, [facility] Pharmacist 08/01/19 04/20/20 Susannah Blankenship, [facility] [address] [place] [address] 812 [place], [place] [address] Pharmacist Pharmacist 08/08/19 04/15/21 [facility] [address] [place], [place] [address] Pharmacist Pharmacist 06/25/20 04/15/21 Vika Kevin APRN AWS SOLUTION ARCHITECT [address] [place] [address] 690092 Assigned PCP 07/22/20 11/16/24 Marilyn Willard MD 420 [facility] 394 [place], [place] 4315[address] Assigned Surgical Provider 08/17/20 08/16/24 Carie Varela DO [address] [place], [place] 6[address] Assigned Heart and Vascular Provider 08/17/20 01/19/21 Maylin May, JENNY [address] [place] [address] Assigned Pediatric Specialist Provider 12/16/20 06/13/22 Marisa Rodrigues, RN Clinic Furnace Firer 01/15/21 02/26/21 Vilma Long MD [address] [place] [address] Assigned Heart and Vascular Provider 01/20/21 07/20/21 Yasmeen Pendleton [facility] [address] [place] [address] Pharmacist Pharmacist 06/04/21 01/15/22 Cole George LISW Lead Furnace Firer 06/13/21 10/07/21 Fletcher Up Community Health Worker 06/13/21 09/12/21 Bautista Casey MD [address] [place] [address] Assigned Heart and Vascular Provider 07/21/21 01/16/23 Jasmyn Oliver CHW Community Health Worker 09/13/21 10/07/21 Yasmeen Pendleton [facility] [address] [place] [address] 558555 Assigned MTM Pharmacist 03/22/22 01/02/23 documented as of this encounter
--- OUTSIDE RECORDS SUMMARY | 2025-04-13 17:30 | XMS_ITS | Encounter Summary ---
Author Organization [place] Address [address] [facility] [place] [address] Care Team Providers Care Clerical Adviser Name Role Phone Aleshia Henriquez RD Unavailable Unavailable Vika Kevin APRN [facility] Unavailable + Marilyn Willard MD Unavailable [phone] Maylin May NP Unavailable [phone] Yasmeen Pendleton [facility] Unavailable Bautista Casey MD Unavailable [phone] Vika Kevin APRN [facility] Primary Care Prov ider Vika Kevin APRN [facility] Primary Care Prov ider Yasmeen Pendleton [facility] Unavailable [phone] Vika Kevin APRN [facility] Primary Care Prov ider Encounter Details Date Type Department Care Team (Late st Contact Info) Description 10/17/2021 [facility] Medical Advice [address] [phone] Yasmeen Pendleton, [facility] [address] [place], [place] [address] Social History Tobacco Use Types Packs/Day Years [...] and Family Not on file 06/14/2021 Attends [employer] Not on file 06/14 Active Member [...] place to sleep or slept in a long-term (including now)? 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 MEMBER OF TECHNICAL STAFF Gender Identity Not on file Sexual Orientation [...] COVID-19? No / Unsure 09/25/2021 11:59 AM MEMBER OF TECHNICAL STAFF documented as of this encounter Plan of Treatment Not on file documented as of this encounter Visit Diagnoses Not on filedocumented in this encounter Additional Health Concerns Assessment Noted Time PHQ-9 Depression Total Score: 10 04/29/ 021 3:56 PM CDT documented as of this encounter Care Teams Clerical Adviser Relationship Specialty Start Date End Date Vika Kevin APRN REHABILITATION TEACHER [address] [place] [address] PCP - General Nurse Practitioner - Family 09/24/21 03/05/22 Vika Kevin APRN REHABILITATION TEACHER [address] [place] [address] 77648 PCP - General Nurse Practitioner - Family 03/18/22 06/18/22 Vika Kevin APRN REHABILITATION TEACHER [address] [place] [address] 438322 PCP - General Nurse Practitioner - Family 07/24/[address] Legger Press Operator Dietitian, Registered 04/14/19 Vika Kevin APRN REHABILITATION TEACHER [address] [place] [address]242 Assigned PCP 07/22/20 11/16/24 Marilyn Willard MD [address] [place] [address] 78197 Assigned Surgical Provider 08/17/20 08/16/24 Maylin May NP [address] [place] [address] Assigned Pediatric Specialist Provider 12/16/20 06/13/22 Yasmeen Pendleton [facility] [address] [place] [address] Pharmacist Pharmacist 06/04/21 01/15/22 Bautista Casey MD [address] [place] [address] Assigned Heart and Vascular Provider 07/21/21 01/16/23 Yasmeen Pendleton [facility] [address] [place] [address] Assigned MTM Pharmacist 03/22/22 01/02/23 documented as of this encounter
--- OUTSIDE RECORDS SUMMARY | 2025-04-13 17:31 | XMS_ITS | Encounter Summary ---
Author Organization [place] Address [address] [facility] [place] [address] Care Team Providers Care Outbound Sales Agent Name Role Phone Andrew Lu MD Primary Care Provider [phone] Niko Resendiz MD Primary Care Provider Carlie Mac MD Primary Care Provide r Angella Mendieta MD Primary Care Provider Julito Banuelos MD Primary Care Provider [phone] Julito Banuelos MD Unavailable Julito Banuelos MD Unavailable Aleshia Henriquez RD Unavailable Unavailable Mary Kay Jones [facility] Unavailable Unavailable Susannah Blankenship [facility] Unavailable [phone] Carolyn Huynh [facility] Unavailable [phone] Vika Kevin APRN RV PARTS AND SERVICE DIRECTOR Unavailable + Marilyn Willard MD Unavailable [phone] Carie Varela DO Unavailable [phone] Maylin May NP Unavailable [phone] Marisa Rodrigues RN Unavailable Unavailable Vilma Long MD Unavailable + [phone] Yasmeen Pendleton [facility] Unavailable [phone] Cole George Unavailable Fletcher Russell Unavailable Unavailable Bautista Casey MD Unavailable AnnyJasmyn tracey [facility] Unavailable [phone] Vika Kevin APRN [facility] Primary Care Prov ider Vika Kevin APRN [facility] Primary Care Prov ider Yasmeen Pendleton [facility] Unavailable [phone] [facility] Primary Care Prov ider Encounter Details Date Type Department Care Team (Late st Contact Info) Description 05/25/2007 [facility] Medical Advice [address] [phone] Andrew Lu MD XXX RETIRED XXX [address] [place] [address] [phone] Social History Tobacco Use Types Packs/Day Years Used Date Smoking Tobacco: Former Cigarettes 0.3 15 0 10/26/1961 - 10/26/1976 Alcohol Use Standard Drinks/Week Comments Yes 0 (1 standard drink = 0.6 oz pur e alcohol) 1 wine 2x qweek Comments No Sex and Gender Information Value Date Recorded Sex Assigned at Not on file Legal 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 Gender Identity Not on file Sexual Orientation Not on file documented as of this encounter Plan of Treatment Not on file documented as of this encounter Visit Diagnoses Not on filedocumented in this encounter Additional Health Concerns Infection Onset Date Last Indicated Resolved Time Rule Out COVID-19 07/25/2020 07/25/2020 07/26/2020 3:02 PM CDT Rule Out COVID-19 12/04/2020 12/04/2020 12/05/2020 6:04 PM SECRETARY BOARD OF COMMISSIONERS documented as of this encounter Care Teams Outbound Sales Agent Relationship Specialty Start Date End Date Andrew Lu MD XXX RETIRED XXX [address] [place] [phone] PCP - General 12/10/01 01/10/14 Niko Resendiz MD [address] [place] [address]1377 PCP - General Internal Medicine 01/11/14 01/29/14 Carlie Mac MD [address] [place], [place] [id number] PCP - General Pediatrics 01/30/14 07/17/15 Angella Mendieta MD [address] [place] [address] [id number] PCP - General Family Practice 07/18/15 09/11/15 Julito Banuelos MD [address] [place] [address] [phone] PCP - General Family Practice 09/12/15 09/23/21 Julito Banuelos MD [address] [place] [address] 0[address]78 PCP - Assigned PCP 02/17/16 12/28/18 Vika Kevin APRN RV PARTS AND SERVICE DIRECTOR [address] [place] [address] 845862 PCP - General Nurse Practitioner - Family 09/24/21 03/05/22 Vika Kevin APRN RV PARTS AND SERVICE DIRECTOR [address] [place] [address] [phone] PCP - General Nurse Practitioner - Family 03/18/22 06/18/22 Vika Kevin APRN RV PARTS AND SERVICE DIRECTOR [address] [place] [address] 530782 PCP - General Nurse Practitioner - Family 07/24/22 Julito Banuelos MD [address] [place] [address] 699442 Assigned PCP 02/17/16 07/21/[address] [place] [address] Vp [employer] Dietitian, Registered 04/14/19 Mary Kay Jones, [facility] Pharmacist 08/01/19 04/20/20 [facility] [address] [place] [address] 8[address] [place], [place] 04[address] Pharmacist Pharmacist 08/08/19 04/15/21 [facility] [address] [place] [address] Pharmacist Pharmacist 06/25/20 04/15/21 Vika Kevin APRN RV PARTS AND SERVICE DIRECTOR [address] [place] [address] 396132 Assigned PCP 07/22/20 11/16/24 Marilyn Willard MD [address] [place] [address] [address] [place], [place] [address]38[address] Assigned Surgical Provider 08/17/20 08/16/24 Carie Varela DO [address] [place] [address] Assigned Heart and Vascular Provider 08/17/20 01/19/21 Maylin May NP [address] [place] [address] Assigned Pediatric Specialist Provider 12/16/20 06/13/22 Marisa Rodrigues, RN Clinic Wool Dyer 01/15/21 02/26/21 Vilma Long MD [address] [place] [address] Assigned Heart and Vascular Provider 01/20/21 07/20/21 Yasmeen Pendleton [facility] [address] [place] [address] Pharmacist Pharmacist 06/04/21 01/15/22 Cole George LISW Lead Wool Dyer 06/13/21 10/07/21 Fletcher Up Community Health Worker 06/13/21 09/12/21 Bautista Casey MD [address] [place] [address] Assigned Heart and Vascular Provider 07/21/21 01/16/23 Jasmyn Oliver CHW Community Health Worker 09/13/21 10/07/21 Yasmeen Pendleton [facility] [address] [place] [address] Assigned MTM Pharmacist 03/22/22 01/02/23 documented as of this encounter
--- OUTSIDE RECORDS SUMMARY | 2025-04-13 17:31 | XMS_ITS | Encounter Summary ---
Author Organization [place] Address [address] [facility] [place] [address] Care Team Providers Care Route Carrier Name Role Phone Julito Banuelos MD Primary Care Provider [phone] Julito Banuelos MD Unavailable Aleshia Henriquez RD Unavailable Unavailable Susannah Blankenship [facility] Unavailable [phone] Carolyn Huynh [facility] Unavailable [phone] Vika Kevin APRN LINE TENDER FLAKEBOARD Unavailable + Marilyn Willard MD Unavailable [phone] Carie Varela DO Unavailable [phone] Maylin May NP Unavailable [phone] Marisa Hernandez RN Unavailable Unavailable Vilma Long MD Unavailable + [phone] Yasmeen Pendleton [facility] Unavailable Cole George Unavailable Fletcher Russell Unavailable Unavailable Bautista Casey MD Unavailable [phone] Jasmyn Oliver Unavailable [phone] Vika Kevin APRN LINE TENDER FLAKEBOARD Primary Care Prov ider Vika Kevin APRN [facility] Primary Care Prov ider Yasmeen Pendleton [facility] Unavailable + [phone] Vika Kevin APRN [facility] Primary Care [facility] ider Reason for Visit * Reason Comments Medication Refill Encounter Details Date Type Department Care Team (Late st Contact Info) Description 07/03/[address] [phone] [place] [address] [place] [address] Medication Refill Social History Tobacco Use [...] on file Legal 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 WIRING INSPECTOR Gender Identity Not on file Sexual [...] per RN protocol Leslye Steiner RN, BSN [place] Triage documented in this encounter Plan of Treatment Not on file documented as of this encounter Visit Diagnoses Diagnosis Gastroesophageal reflux disease without esophagitis Esophageal reflux documented in this encounter Additional Health Concerns Infection Onset Date Last Indicated Resolved Time Rule Out COVID-19 07/25/2020 07/25/2020 07/26/2020 3:02 PM CDT Rule Out COVID-19 12/04/2020 12/04/2020 12/05/2020 6:04 PM WIRING INSPECTOR Assessment Noted Time PHQ-9 Depression Total Score: 12 06/19/ 020 3:35 PM CDT documented as of this encounter Care Teams Route Carrier Relationship Specialty Start Date End Date Julito Banuelos MD [address] [place] [address] PCP - General Family Practice 09/12/15 09/23/21 Vika Kevin APRN LINE TENDER FLAKEBOARD [address] [place] [address] 20411 PCP - General Nurse Practitioner - Family 09/24/21 03/05/22 Vika Kevin APRN LINE TENDER FLAKEBOARD [address] [place] [address] 80454 PCP - General Nurse Practitioner - Family 03/18/22 06/18/22 Vika Kevin APRN LINE TENDER FLAKEBOARD [address] [place] [address] PCP - General Nurse Practitioner - Family 07/24/22 Julito Banuelos MD [address] [place] [address] 67562 Assigned PCP 02/17/16 07/21/[address] [place] [address]05 Director Of Culture Dietitian, Registered 04/14/19 Susannah Blankenship, [facility] [address] [place] [address] 812 [place] [address] Pharmacist Pharmacist 08/08/19 04/15/21 Carolyn Huynh [facility] [address] [place], [place] [address] Pharmacist Pharmacist 06/25/20 04/15/21 Vika Kevin APRN LINE TENDER FLAKEBOARD [address] [place], [place] [address] Assigned PCP 07/22/20 11/16/24 Marilyn Willard MD 420 [facility] [address] [place], [place] 1945[address] Assigned Surgical Provider 08/17/20 08/16/24 Carie Varela DO [address] [place] [address] Assigned Heart and Vascular Provider 08/17/20 01/19/21 Maylin May NP [address] [place], [place] [address] Assigned Pediatric Specialist Provider 12/16/20 06/13/22 Marisa Rodrigues, RN Clinic Moisture Meter Reader 01/15/21 02/26/21 Vilma Long MD [address] [place] [address] Assigned Heart and Vascular Provider 01/20/21 07/20/21 Yasmeen Pendleton [facility] [address] [place], [place] [address] Pharmacist Pharmacist 06/04/21 01/15/22 Cole George LISW Lead Moisture Meter Reader 06/13/21 10/07/21 Fletcher Up Community Health Worker 06/13/21 09/12/21 Bautista Casey MD [address] [place] [address] Assigned Heart and Vascular Provider 07/21/21 01/16/23 Jasmyn Oliver CHW Community Health Worker 09/13/21 10/07/21 Yasmeen Pendleton [facility] [address] [place] [address] Assigned MTM Pharmacist 03/22/22 01/02/23 documented as of this encounter
--- OUTSIDE RECORDS SUMMARY | 2025-04-13 17:31 | XMS_ITS | Encounter Summary ---
Author Organization [place] Address [address] [facility] [place] [address] Care Team Providers Care Whipped Topping Finisher Name Role Phone Carlie Mac MD Primary Care Provide r Angella Mendieta MD Primary Care Provider Julito Banuelos MD Primary Care Provider Julito Banuelos MD Unavailable Julito Banuelos MD Unavailable Aleshia Henriquez RD Unavailable Unavailable Mary Kay Jones [facility] Unavailable Unavailable Susannah Blankenship [facility] Unavailable [phone] Carolyn Huynh [facility] Unavailable [phone] Vika Kevin APRN HOSTING ENGINEER Unavailable + Marilyn Willard MD Unavailable Carie Varela DO Unavailable Maylin May NP Unavailable [phone] Marisa Hernandez RN Unavailable Unavailable Vilma Long MD Unavailable Yasmeen Pendleton [facility] Unavailable Cole George Unavailable Fletcher Russell Unavailable Unavailable IpBautista MD Unavailable [phone] Jasmyn Oliver CH Unavailable [phone] Vika Kevin APRN [facility] Primary Care Prov ider Vika Kevin APRN [facility] Primary Care Prov ider Yasmeen Pendleton [facility] Unavailable Vika Kevin APRN [facility] Primary Care Prov ider Encounter Details Date Type Department Care Team (Late st Contact Info) Description 10/12/2014 MyC Medical Advice [address] [address] Sara Robison Y, TAXICAB STARTER Social History Tobacco Use Types Packs/Day Years Used Date Smoking Tobacco: Former Cigarettes 0.3 15 0 10/26/1961 - 10/26/1976 Smokeless Tobacco: Never Alcohol Use Standard Drinks/Week Comments Yes 0 (1 standard drink = 0.6 oz pur e alcohol) 1-2 glasses of wine weekly Comments No Sex and Gender Information Value Date Recorded Sex Assigned at Not on file Legal 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 Gender Identity Not on file Sexual [...] Out COVID-19 12/04/2020 12/04/2020 12/05/2020 6:04 PM SUBMARINE 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 TECHNICIAN documented as of this encounter Care Teams Whipped Topping Finisher Relationship Specialty Start Date End Date Carlie Mac MD [address] [place] [address] PCP - General Pediatrics 01/30/14 07/17/15 Angella Mendieta MD [address] [place] [address] PCP - General Family Practice 07/18/15 09/11/15 Julito Banuelos MD [address] [place] [address]11 PCP - General Family Practice 09/12/15 09/23/21 Julito Banuelos MD [address] [place] [address] 22960 PCP - Assigned PCP 02/17/16 12/28/18 Vika Kevin APRN HOSTING ENGINEER [address] [place] [address] PCP - General Nurse Practitioner - Family 09/24/21 03/05/22 Viak Kevin APRN HOSTING ENGINEER [address] [place] [address]86 PCP - General Nurse Practitioner - Family 03/18/22 06/18/22 Vika Kevin APRN HOSTING ENGINEER [address] [place] [address] PCP - General Nurse Practitioner - Family 07/24/22 Julito Banuelos MD [address] [place] [address]70 Assigned PCP 02/17/16 07/21/[address] [place] [address] Supervisor Order Takers Dietitian, Registered 04/14/19 Mary Kay Jones, [facility] Pharmacist 08/01/19 04/20/20 Susannah Blankenship, [facility] [address] [facility] [address] [place] [address] Pharmacist Pharmacist 08/08/19 04/15/21 Carolyn Huynh, [facility] [address] [place], [place] [address] Pharmacist Pharmacist 06/25/20 04/15/21 Vika Kevin, PLANT TECHNICIAN HOSTING ENGINEER [address] [place] [address] 308482 Assigned PCP 07/22/20 11/16/24 Marilyn Willard MD [address] [facility] [address] [place], [place] 6[address] Assigned Surgical Provider 08/17/20 08/16/24 Carie Varela DO [address] [place] [address] Assigned Heart and Vascular Provider 08/17/20 01/19/21 Maylin May NP [address] [place] [address] Assigned Pediatric Specialist Provider 12/16/20 06/13/22 Marisa Rodrigues, RN Clinic Air Quality Technician 01/15/21 02/26/21 Vilma Long MD [address] [place] [address] Assigned Heart and Vascular Provider 01/20/21 07/20/21 Yasmeen Pendleton [facility] 9[address] [place] [address] Pharmacist Pharmacist 06/04/21 01/15/22 Cole George LISW Lead Air Quality Technician 06/13/21 10/07/21 Fletcher Up Community Health Worker 06/13/21 09/12/21 Bautista Casey MD [address] [place] [address] Assigned Heart and Vascular Provider 07/21/21 01/16/23 Jasmyn Oliver CHW Community Health Worker 09/13/21 10/07/21 Yasmeen Pendleton [facility] [address] [place] [address] Assigned MTM Pharmacist 03/22/22 01/02/23 documented as of this encounter
--- OUTSIDE RECORDS SUMMARY | 2025-04-13 17:31 | XMS_ITS | Encounter Summary ---
Author Organization [place] Address [address] [facility] [place] [address] Care Team Providers Care Chore Tender Name Role Phone Andrew Lu MD Primary Care Provider [phone] Niko Resendiz MD Primary Care Provider Carlie Mac MD Primary Care Provide r Angella Mendieta MD Primary Care Provider Julito Banuelos MD Primary Care Provider [phone] Julito Banuelos MD Unavailable Julito Banuelos MD Unavailable Aleshia Henriquez [address] Unavailable Unavailable Mary Kay Jones [facility] Unavailable Unavailable Susannah Blankenship [facility] Unavailable [phone] Carolyn Huynh [facility] Unavailable [phone] Vika Kevin APRN INFORMATION SPECIALIST Unavailable + Marilyn Willard MD Unavailable [phone] Carie Varela DO Unavailable [phone] Maylin May NP Unavailable [phone] Marisa Rodrigues RN Unavailable Unavailable Vilma Long MD Unavailable + [phone] Yasmeen Pendleton [facility] Unavailable + [phone] Cole George Unavailable Fletcher Russell Unavailable Unavailable Bautista Casey MD Unavailable AnnyJasmyn tracey [facility] Unavailable [phone] Vika Kevin APRN [facility] Primary Care Prov ider Vika Kevin APRN [facility] Primary Care Prov ider Yasmeen Pendleton [facility] Unavailable [phone] V[facility] Primary Care Prov ider Encounter Details Date Type Department Care Team (Late st Contact Info) Description 01/10/2014 MyC Medical Advice [facility] - Primary Care [address] [place] [phone] Emilie Dolan MD Social History Tobacco Use [...] on file Legal 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 Gender Identity Not on file Sexual [...] Out COVID-19 12/04/2020 12/04/2020 12/05/2020 6:04 PM WATER MAIN INSTALLER HELPER documented as of this encounter Care Teams Chore Tender Relationship Specialty Start Date End Date Andrew Lu MD XXX RETIRED XXX [address] [place] [address] PCP - General 12/10/01 01/10/14 Niko Resendiz MD [address] [place] [address] PCP - General Internal Medicine 01/11/14 01/29/14 Carlie Mac MD [address] [place] [address] PCP - General Pediatrics 01/30/14 07/17/15 Angella Mendieta MD [address] [place] [address] PCP - General Family Practice 07/18/15 09/11/15 Julito Banuelos MD [address] [place] [address] PCP - General Family Practice 09/12/15 09/23/21 Julito Banuelos MD [address] [place] [address] 11583 PCP - Assigned PCP 02/17/16 12/28/18 Vika Kevin APRN INFORMATION SPECIALIST [address] [place] [address] PCP - General Nurse Practitioner - Family 09/24/21 03/05/22 Vika Kevin APRN INFORMATION SPECIALIST [address] [place] [address] PCP - General Nurse Practitioner - Family 03/18/22 06/18/22 Vika Kevin APRN INFORMATION SPECIALIST [address] [place] [address] 589422 PCP - General Nurse Practitioner - Family 07/24/22 Julito Banuelos MD [address] [place] [address] [phone] Assigned PCP 02/17/16 07/21/[address] [place] [address] [employer] F[employer] Dietitian, Registered 04/14/19 Mary Kay Jones, [facility] Pharmacist 08/01/19 04/20/20 [facility] [address] [place] [address] [address] [place], [place] 8[address] Pharmacist Pharmacist 08/08/19 04/15/21 [facility] [address] [place], [place] [phone] Pharmacist Pharmacist 06/25/20 04/15/21 Vika Kevin APRN INFORMATION SPECIALIST [address] [place] [address] 167912 Assigned PCP 07/22/20 11/16/24 Marilyn Willard MD [address] [place] [address] 394 [place] [address] Assigned Surgical Provider 08/17/20 08/16/24 Carie Varela DO [address] [place], [place] [address] Assigned Heart and Vascular Provider 08/17/20 01/19/21 Maylin May NP [address] [place] [address] Assigned Pediatric Specialist Provider 12/16/20 06/13/22 Marisa Rodrigues, RN Clinic Cargo And Container Inspector 01/15/21 02/26/21 Vilma Long MD [address] [place] [address] Assigned Heart and Vascular Provider 01/20/21 07/20/21 Yasmeen Pendleton [facility] [address] [place] [address] Pharmacist Pharmacist 06/04/21 01/15/22 Cole George LISW Lead Cargo And Container Inspector 06/13/21 10/07/21 Fletcher Up Community Health Worker 06/13/21 09/12/21 Bautista Casey MD [address] [place] [address] Assigned Heart and Vascular Provider 07/21/21 01/16/23 Jasmyn Oliver CHW Community Health Worker 09/13/21 10/07/21 Yasmeen Pendleton [facility] [address] [place] [address] 201415 Assigned MTM Pharmacist 03/22/22 01/02/23 documented as of this encounter
--- OUTSIDE RECORDS SUMMARY | 2025-04-13 17:31 | XMS_ITS | Encounter Summary ---
Author Organization [place] Address [address] [place] [address] Care Team Providers Care Video Camera Operator Name Role Phone Julito Banuelos MD Primary Care Provider [phone] Unavailable Unavailable Susannah Blankenship [facility] Unavailable [phone] Carolyn Huynh [facility] Unavailable [phone] Vika Kevin APRN [facility] Unavailable + Marilyn Willard MD Unavailable [phone] Maylin May NP Unavailable [phone] Vilma Long MD Unavailable + [phone] Yasmeen Pendleton [facility] Unavailable [phone] Cole George Unavailable Fletcher Russell Unavailable Unavailable Bautista Casey MD Unavailable [phone] Jasmyn Oliver Unavailable [phone] Vika Kevin APRN [facility] Primary Care Prov ider Vika Kevin APRN [facility] Primary Care Prov ider Yasmeen Pendleton [facility] Unavailable [phone] Vika Kevin APRN SODA DRIER FEEDER Primary Care Prov ider Encounter Details Date Type Department Care Team (Late st Contact Info) Description 03/18/2021 MyC Medical Advice [address] [place] [address] Susannah Blankenship, [facility] [address] [place] [address] Social History Tobacco Use Types Packs/Day Years [...] on file Legal 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 BENCH WORKER APPRENTICE Gender Identity Not on file Sexual Orientation [...] Depression Total Score: 10 020 9:30 AM BENCH WORKER APPRENTICE documented as of this encounter Care Teams Video Camera Operator Relationship Specialty Start Date End Date Julito Banuelos MD [address] [place] [address] [id number] PCP - General Family Practice 09/12/15 09/23/21 Vika Kevin APRN SODA DRIER FEEDER [address] [place] [address] 260172 PCP - General Nurse Practitioner - Family 09/24/21 03/05/22 Vika Kevin APRN SODA DRIER FEEDER [address] [place] [address] PCP - General Nurse Practitioner - Family 03/18/22 06/18/22 Vika Kevin APRN SODA DRIER FEEDER [address] [place] [address] 90[address] PCP - General Nurse Practitioner - Family 07/24/[address] [place] [address] Rotary Engraver Dietitian, Registered 04/14/19 Susannah Blankenship, [facility] [address] [facility] [address] [place] [address] Pharmacist Pharmacist 08/08/19 04/15/21 [facility] [address] [place] [address] Pharmacist Pharmacist 06/25/20 04/15/21 Vika Kevin APRN SODA DRIER FEEDER [address] [place] [address] 24584 Assigned PCP 07/22/20 11/16/24 Marilyn Willard MD 420 [facility] [address] [place], [place] [address]25 Assigned Surgical Provider 08/17/20 08/16/24 Maylin May NP [address] [place] [address] Assigned Pediatric Specialist Provider 12/16/20 06/13/22 Vilma Long MD [address] [place] [address] Assigned Heart and Vascular Provider 01/20/21 07/20/21 [facility] [address] [place] [address] [phone] Pharmacist Pharmacist 06/04/21 01/15/22 Cole George LISW Lead Seaman 06/13/21 10/07/21 Fletcher Up Community Health Worker 06/13/21 09/12/21 Bautista Casey MD [address] [place] [address] Assigned Heart and Vascular Provider 07/21/21 01/16/23 Jasmyn Oliver [facility] Community Health Worker 09/13/21 10/07/21 Yasmeen Pendleton, [facility] 9 [place] [address] Assigned MTM Pharmacist 03/22/22 01/02/23 documented as of this encounter
--- OUTSIDE RECORDS SUMMARY | 2025-04-13 17:31 | XMS_ITS | Encounter Summary ---
Author Organization [place] Address [address] [facility] [place] [address] Care Team Providers Care Riveter Hand Name Role Phone Andrew Lu MD Primary Care Provider [phone] Niko Resendiz MD Primary Care Provider Carlie Mac MD Primary Care Provide r Angella Mendieta MD Primary Care Provider Julito Banuelos MD Primary Care Provider [phone] Julito Banuelos MD Unavailable Julito Banuelos MD Unavailable Aleshia [address]quez [address] Unavailable Unavailable Mary Kay Jones [facility] Unavailable Unavailable Susannah Blankenship [facility] Unavailable [phone] Carolyn Huynh [facility] Unavailable [phone] Vika Kevin APRN BAILING 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 Unavailable + Marilyn Willard MD Unavailable [phone] Carie Varela DO Unavailable [phone] Maylin May NP Unavailable [phone] Marisa Rodrigues RN Unavailable Unavailable Vilma Long MD Unavailable + [phone] Yasmeen Pendleton [facility] Unavailable [phone] Cole George Unavailable Fletcher Russell Unavailable Unavailable Bautista Casey MD Unavailable DemetriusJasmyn wright [facility] Unavailable Vika Kevin [facility] Primary Care Prov ider Vika Kevin APRN [facility] Primary Care Prov ider Yasmeen Pendleton [facility] Unavailable Vika Kevin [facility] Primary Care Prov ider Encounter Details Date Type Department Care Team (Late st Contact Info) Description 12/28/2013 MyC Medical Advice [facility] - Primary Care Skin [address] [place] [phone] Jenn Yip MD [address] [facility] [place] [address] Social History Tobacco Use Types Packs/Day Years Used Date Smoking Tobacco: Former Cigarettes 0.3 15 0 10/26/1961 - 10/26/1976 Smokeless Tobacco: Never Alcohol Use Standard Drinks/Week Comments Yes 0 (1 standard drink = 0.6 oz pur e alcohol) 1-2 glasses of wine weekly Comments No Sex and Gender Information Value Date Recorded Sex Assigned at Not on file Legal 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 BLANKER PRESS 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 Gender Identity Not on file Sexual [...] Out COVID-19 12/04/2020 12/04/2020 12/05/2020 6:04 PM BLANKER PRESS OPERATOR documented as of this encounter Care Teams Riveter Hand Relationship Specialty Start Date End Date Andrew Lu MD XXX RETIRED XXX [address] [place] [address] PCP - General 12/10/01 01/10/14 Niko Resendiz MD [address] [place] [address] PCP - General Internal Medicine 01/11/14 01/29/14 Carlie Mac MD [address] [place] [address] PCP - General Pediatrics 01/30/14 07/17/15 Angella Mendieta MD [address] [place] [address] PCP - General Family Practice 07/18/15 09/11/15 Julito Banuelos MD [address] [place] [address] PCP - General Family Practice 09/12/15 09/23/21 Julito Banuelos MD [address] [place] [address] 27206 PCP - Assigned PCP 02/17/16 12/28/18 Vika Kevin APRN BAILING 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 [address] [place] [address] PCP - General Nurse Practitioner - Family 09/24/21 03/05/22 Vika Kevin APRN BAILING 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 [address] [place] [address] PCP - General Nurse Practitioner - Family 03/18/22 06/18/22 Vika Kevin APRN BAILING 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 [address] [place] [address] 717042 PCP - General Nurse Practitioner - Family 07/24/22 Julito Banuelos MD [address] [place] [address] 924312 Assigned PCP 02/17/16 07/21/[address] [place] [address] Pattern Lease Inspector Dietitian, Registered 04/14/19 Mary Kay Jones, [facility] Pharmacist 08/01/19 04/20/20 Susannah Blankenship, [facility] [address] [facility] [address] [place], [place] 2[address] Pharmacist Pharmacist 08/08/19 04/15/21 Carolyn Huynh, [facility] [address] [place], [place] [address] Pharmacist Pharmacist 06/25/20 04/15/21 Vika Kevin, JAIME BAILING 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 [address] [place] [address] [phone] Assigned PCP 07/22/20 11/16/24 Marilyn Willard MD 420 [facility] [address] [place], [place] 8[address] Assigned Surgical Provider 08/17/20 08/16/24 Carie Varela DO [address] [place] [address] Assigned Heart and Vascular Provider 08/17/20 01/19/21 Maylin May NP [address] [facility] [place] [address] Assigned Pediatric Specialist Provider 12/16/20 06/13/22 Marisa Rodrigues, RN Clinic Laborer Vegetable Farm 01/15/21 02/26/21 Vilma Long MD [address] [place] [address] Assigned Heart and Vascular Provider 01/20/21 07/20/21 Yasmeen Pendleton [facility] [address] [place] [address] Pharmacist Pharmacist 06/04/21 01/15/22 Cole George LISW Lead Laborer Vegetable Farm 06/13/21 10/07/21 Fletcher Up Community Health Worker 06/13/21 09/12/21 Bautista Casey MD [address] [place] [address] Assigned Heart and Vascular Provider 07/21/21 01/16/23 Jasmyn Oliver CHW Community Health Worker 09/13/21 10/07/21 [facility] [address] [place] [address] Assigned MTM Pharmacist 03/22/22 01/02/23 documented as of this encounter
--- OUTSIDE RECORDS SUMMARY | 2025-04-13 17:31 | XMS_ITS | Encounter Summary ---
Author Organization [place] Address [address] [facility] [place] [address] Care Team Providers Care White Metal Caster Name Role Phone Carlie Mac MD Primary Care Provide r Angella Mendieta MD Primary Care Provider Julito Banuelos MD Primary Care Provider Julito Banuelos MD Unavailable Julito Banuelos MD Unavailable A[address]ia [address]quez [address] Unavailable Unavailable Mary Kay Jones [facility] Unavailable Unavailable Susannah Blankenship [facility] Unavailable [phone] Carolyn Huynh [facility] Unavailable Vika Kevin APRN CONTINUITY DIRECTOR Unavailable + Marilyn Willard MD Unavailable Carie Varela DO Unavailable Maylin May NP Unavailable [phone] Marisa Hernandez RN Unavailable Unavailable Vilma Long MD Unavailable Yasmeen Pendleton [facility] Unavailable Cole George Unavailable Fletcher Russell Unavailable Unavailable IpBautista MD Unavailable [phone] [facility] Unavailable [phone] Vika Kevin APRN [facility] Primary Care Prov ider Vika Kevin APRN [facility] Primary Care Prov ider Yasmeen Pendleton [facility] Unavailable [phone] Vika Kevin APRN [facility] Primary Care Prov ider Reason for Visit * Reason Onset Date Comments Other 09/30/2014 [facility] Encounter Details Date Type Department Care Team (Late st Contact Info) Description 09/30/2014 MyC Medical Advice [address] [address] Carlie Mac MD [address] [place] [address] Other [facility] Social History Tobacco Use [...] on file Legal 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 MEAT PICKLER Gender Identity Not on file Sexual Orientation [...] Out COVID-19 12/04/2020 12/04/2020 12/05/2020 6:04 PM MEAT PICKLER documented as of this encounter Care Teams White Metal Caster Relationship Specialty Start Date End Date Carlie Mac MD [address] [place], [place] [phone] PCP - General Pediatrics 01/30/14 07/17/15 Angella Mendieta MD [address] [place] [address] PCP - General Family Practice 07/18/15 09/11/15 Julito Banuelos MD [address] [place] [address] 237122 PCP - General Family Practice 09/12/15 09/23/21 Julito Banuelos MD [address] [place] [address] 037782 PCP - Assigned PCP 02/17/16 12/28/18 Vika Kevin APRN CONTINUITY DIRECTOR [address] [place] [address] PCP - General Nurse Practitioner - Family 09/24/21 03/05/22 Vika Kevin APRN CONTINUITY DIRECTOR [address] [place] [address] 26219 PCP - General Nurse Practitioner - Family 03/18/22 06/18/22 Vika Kevin APRN CONTINUITY DIRECTOR [address] [place] [address] 18071 PCP - General Nurse Practitioner - Family 07/24/22 Julito Banuelos MD [address] [place] [address] 231812 Assigned PCP 02/17/16 07/21/[place] [address] [place] [address] Sales Program Manager Dietitian, Registered 04/14/19 Mary Kay Jones, [facility] Pharmacist 08/01/19 04/20/20 Susannah Blankenship, [facility] [address] [facility] [address] [place], [place] [address] Pharmacist Pharmacist 08/08/19 04/15/21 Carolyn Huynh [facility] [address] [place], [place] [address] Pharmacist Pharmacist 06/25/20 04/15/21 Vika Kevin APRN CONTINUITY DIRECTOR [address] [place] [address] 279132 Assigned PCP 07/22/20 11/16/24 Marilyn Willard MD [address] [place] [address] 394 [place], [place] 738915 Assigned Surgical Provider 08/17/20 08/16/24 Carie Varela DO [address] [place], [place] 122635 Assigned Heart and Vascular Provider 08/17/20 01/19/21 Maylin May NP [address] [place], [place] [id number] Assigned Pediatric Specialist Provider 12/16/20 06/13/22 Marisa Rodrigues, RN Clinic Correctional Officer 01/15/21 02/26/21 Vilma Long MD [address] [place] [address] Assigned Heart and Vascular Provider 01/20/21 07/20/21 Yasmeen Pendleton, [facility] [address] [place], [place] [address] Pharmacist Pharmacist 06/04/21 01/15/22 Cole George LISW Lead Correctional Officer 06/13/21 10/07/21 Fletcher Up Community Health Worker 06/13/21 09/12/21 Bautista Casey MD [address] [place] [address] Assigned Heart and Vascular Provider 07/21/21 01/16/23 [address]asmyn [address] [facility] Community Health Worker 09/13/21 10/07/21 Yasmeen Pendleton [facility] [address] [place] [address] Assigned MTM Pharmacist 03/22/22 01/02/23 documented as of this encounter
--- OUTSIDE RECORDS SUMMARY | 2025-04-13 17:31 | XMS_ITS | Encounter Summary ---
Author Organization [place] Address [address] [facility] [place] [address] Care Team Providers Care Content Specialist Name Role Phone Cortez Lu MD Primary Care Provider [phone] Niko Resendiz MD Primary Care Provider Carlie Mac MD Primary Care Provide r Angella Mendieta MD Primary Care Provider Julito Banuelos MD Primary Care Provider [phone] Julito Banuelos MD Unavailable Julito Banuelos MD Unavailable Aleshia Henriquez RD Unavailable Unavailable Mary Kay Jones [facility] Unavailable Unavailable Susannah Blankenship [facility] Unavailable [phone] Carolyn Huynh [facility] Unavailable [phone] Vika Kevin APRN GINSENG FARMER Unavailable + Marilyn Willard MD Unavailable [phone] Carie Varela DO Unavailable [phone] Maylin May NP Unavailable [phone] Marisa Rodrigues RN Unavailable Unavailable Vilma Long MD Unavailable + [phone] Yasmeen Pendleton [facility] Unavailable + [phone] Cole George Unavailable Fletcher Russell Unavailable Unavailable Bautista Casey MD Unavailable +[phone] TatyanaJasmyn anand [facility] Unavailable [phone] Vika Kevin APRN [facility] Primary Care Prov ider Vika Kevin APRN [facility] Primary Care Prov ider Yasmeen Pendleton [facility] Unavailable + [phone] [facility] Primary Care Prov ider Encounter Details Date Type Department Care Team (Late st Contact Info) Description 12/23/2013 Office Visit-[facility] [address] [facility] [address] [place] [phone] Cristy Hanna, JAIME [facility] XXX RESIGNED XXX [address] [facility] [address] [place] [id number] Social History Tobacco Use Types Packs/Day Years Used Date Smoking Tobacco: Former Cigarettes 0.3 15 0 10/26/1961 - 10/26/1976 Smokeless Tobacco: Never Alcohol Use Standard Drinks/Week Comments Yes 0 (1 standard drink = 0.6 oz pur e alcohol) 1-2 glasses of wine weekly Comments No Sex and Gender Information Value Date Recorded Sex Assigned at Not on file Legal 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 HOT DOG VENDER Gender Identity Not on file Sexual Orientation [...] old Referring Physician: CORTEZ LU Referring Clinic: [facility] CURRENT DIAGNOSES 1. Diabetes Djakyhux-Was-Cwctjdp Dependent, 250.00 2. - Hyperlipidemia mixed, 272.2 [...] daily 10. Nasacort AQ 55 mcg Aerosol, Eddy, Take as Directed 11. Plavix 75 mg [...] pleasure of seeing Marialuisa Cosby at the [facility].She is a 73-year-old white female with a history of coronary artery disease, hypertension, diabetes, dyslipidemia, and asthma. She is here today to review her recent event monitor. Her cardiovascular history includes hypertension, diabetes, and dyslipidemia. In December 2012 while visiting in [place], she had a non-ST elevation myocardial infarction and underwent an angiogram withPCI to the proximal and mid circumflex. LV function has been normal by echocardiogram. Apparently, that hide mill man recommended lifelong Plavix. She established care here in our clinic with Dr. Daivs in late August. 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 Maximum heart [...] Leg syndrome Past Cardiac Illnesses: CAD, s/p VT Surgeries/Procedures - General: hysterectomy, tonsillectomy Cardiac/Vasc Procedures-Invasive: left heart cath 12/2012 ([place]) Cardiology Procedures-NonInvasive: echocardiogram Jun 2007, myocardial perfusion (Nuc) Jun 2007, echo 12/2012 ([place]), stress echo February 2013 Cardiac Cath Results: 12/2012 [place] Resolute NELIA to the mid and [...] - lives with ; Place of - [place]; REVIEW OF SYSTEMS GENERAL feeling much better [...] Out COVID-19 12/04/2020 12/04/2020 12/05/2020 6:04 PM HOT DOG VENDER documented as of this encounter Care Teams Content Specialist Relationship Specialty Start Date End Date Cortez Lu MD XXX RETIRED XXX [address] [place] [phone] PCP - General 12/10/01 01/10/14 Niko Resendiz MD [address] [place] [address] PCP - General Internal Medicine 01/11/14 01/29/14 Carlie Mac MD [address] [place] [address] PCP - General Pediatrics 01/30/14 07/17/15 Angella Mendieta MD [address] [place] [address] PCP - General Family Practice 07/18/15 09/11/15 Julito Banuelos MD [address] [place] [address] 148002 PCP - General Family Practice 09/12/15 09/23/21 Julito Banuelos MD [address] [place] [address] PCP - Assigned PCP 02/17/16 12/28/18 Vika Kevin APRN GINSENG FARMER [address] [place] [address] PCP - General Nurse Practitioner - Family 09/24/21 03/05/22 Vika Kevin APRN GINSENG FARMER [address] [place] [address] PCP - General Nurse Practitioner - Family 03/18/22 06/18/22 Vika Kevin APRN GINSENG FARMER [address] [place] [address] [phone] PCP - General Nurse Practitioner - Family 07/24/22 Julito Banuelos MD [address] [place] [address] 612302 Assigned PCP 02/17/16 07/21/[address] [place] [address] Lead Front Desk Agent Dietitian, Registered 04/14/19 Mary Kay Jones, [facility] Pharmacist 08/01/19 04/20/20 [facility] [address] [place] [address] [address] [place], [place] [address] Pharmacist Pharmacist 08/08/19 04/15/21 Carolyn Huynh [facility] [address] [place] [address] Pharmacist Pharmacist 06/25/20 04/15/21 Vika Kevin APRN GINSENG FARMER [address] [place] [address] [phone] Assigned PCP 07/22/20 11/16/24 Marilyn Willard MD [address] [place] [address] [address] [place], [place] 366565 Assigned Surgical Provider 08/17/20 08/16/24 Carie Varela DO [address] [place] [address] Assigned Heart and Vascular Provider 08/17/20 01/19/21 Maylin May NP [address] [place] [address] Assigned Pediatric Specialist Provider 12/16/20 06/13/22 Marisa Rodrigues, RN Clinic Technical Delivery Manager 01/15/21 02/26/21 Vilma Long MD [address] [place] [address] Assigned Heart and Vascular Provider 01/20/21 07/20/21 [facility] [address] [place] [address] [phone] Pharmacist Pharmacist 06/04/21 01/15/22 Cole George LISW Lead Technical Delivery Manager 06/13/21 10/07/21 Fletcher Up Community Health Worker 06/13/21 09/12/21 Bautista Casey MD [address] [place] [address] Assigned Heart and Vascular Provider 07/21/21 01/16/23 Jasmyn Oliver CHW Community Health Worker 09/13/21 10/07/21 Yasmeen Pendleton [facility] [address] [place] [address] Assigned MTM Pharmacist 03/22/22 01/02/23 documented as of this encounter
--- OUTSIDE RECORDS SUMMARY | 2025-04-13 17:31 | XMS_ITS | Encounter Summary ---
Author Organization [place] Address [address] [facility] [place] [address] Care Team Providers Care Sleever Name Role Phone Julito Banuelos MD Primary Care Provider [phone] Unavailable Unavailable Susannah Blankenship [facility] Unavailable [phone] Carolyn Huynh [facility] Unavailable [phone] Vika Kevin APRN [facility] Unavailable + Marilyn Willard MD Unavailable [phone] Carie Varela DO Unavailable [phone] Maylin May NP Unavailable [phone] Marisa Hernandez RN Unavailable Unavailable Vilma Long MD Unavailable + [phone] Yasmeen Pendleton [facility] Unavailable +[phone] Cole George Unavailable Fletcher Russell Unavailable Unavailable Bautista Casey MD Unavailable [phone] Jasmyn Oliver Unavailable [phone] Vika Kevin APRN [facility] Primary Care Prov ider Vika Kevin APRN [facility] Primary Care Prov ider Yasmeen Pendleton [facility] Unavailable [phone] Vika Kevin APRN [employer] Primary Care Prov ider Encounter Details Date Type Department Care Team (Late st Contact Info) Description 01/07/2021 MyC Medical Advice [facility] [address] [facility] [facility] [address] [place] [address] [facility] [address] [place] [address] Social History Tobacco Use Types [...] on file Legal 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 PRECISION ASSEMBLY Gender Identity Not on file Sexual Orientation [...] Depression Total Score: 10 020 9:30 AM INSPECTOR PRECISION ASSEMBLY documented as of this encounter Care Teams Sleever Relationship Specialty Start Date End Date Julito Banuelos MD [address] [place] [address] PCP - General Family Practice 09/12/15 09/23/21 Vika Kevin APRN [employer] [address] [place] [address] PCP - General Nurse Practitioner - Family 09/24/21 03/05/22 Vika Kevin APRN [employer] [address] [place] [address] PCP - General Nurse Practitioner - Family 03/18/22 06/18/22 Vika Kevin, JAIME [employer] [address] [place] [address] PCP - General Nurse Practitioner - Family 07/24/[address] [place] [address] Supervisor Baking Dietitian, Registered 04/14/19 Susannah Blankenship, [facility] [address] [place] [address] 8[address] [place] [address] Pharmacist Pharmacist 08/08/19 04/15/21 Carolyn Huynh [facility] [address] [place] [address] Pharmacist Pharmacist 06/25/20 04/15/21 Vika Kevin, JAIME [employer] [address] [place] [address] Assigned PCP 07/22/20 11/16/24 Marilyn Willard MD [address] [place] [address] [address] [place] [address] Assigned Surgical Provider 08/17/20 08/16/24 Carie Varela DO [address] [place] [address] Assigned Heart and Vascular Provider 08/17/20 01/19/21 Maylin May NP [address] [place] [address] Assigned Pediatric Specialist Provider 12/16/20 06/13/22 Marisa Rodrigues, RN Clinic Medicaid Business Analyst 01/15/21 02/26/21 Vilma Long MD [address] [place] [address] Assigned Heart and Vascular Provider 01/20/21 07/20/21 [facility] [address] [place] [address]665 Pharmacist Pharmacist 06/04/21 01/15/22 Cole George LISW Lead Medicaid Business Analyst 06/13/21 10/07/21 Fletcher Up Community Health Worker 06/13/21 09/12/21 Bautista Casey MD [address] [place] [address] Assigned Heart and Vascular Provider 07/21/21 01/16/23 Jasmyn Oliver CHW Community Health Worker 09/13/21 10/07/21 Yasmeen Pendleton [facility] [address] [place] [address] Assigned MTM Pharmacist 03/22/22 01/02/23 documented as of this encounter
--- OUTSIDE RECORDS SUMMARY | 2025-04-13 17:31 | XMS_ITS | Encounter Summary ---
Author Organization [place] Address [address] [facility] [place] [address] Care Team Providers Care Hair Dresser Name Role Phone Andrew Lu MD Primary Care Provider [phone] Niko Resendiz MD Primary Care Provider Carlie Mac MD Primary Care Provide r Angella Mendieta MD Primary Care Provider Julito Banuelos MD Primary Care Provider [phone] Julito Banuelos MD Unavailable Julito Banuelos MD Unavailable Aleshia Henriquez RD Unavailable Unavailable Mary Kay Jones [facility] Unavailable Unavailable Susannah Blankenship [facility] Unavailable [phone] Carolyn Huynh [facility] Unavailable [phone] Vika Kevin APRN CIGAR HEAD PUNCHER Unavailable + Marilyn Willard MD Unavailable [phone] Carie Varela DO Unavailable [phone] Maylin May NP Unavailable [phone] Marisa Rodrigues RN Unavailable Unavailable Vilma Long MD Unavailable + [phone] Yasmeen Pendleton [facility] Unavailable [phone] Cole George Unavailable Fletcher Russell Unavailable Unavailable Bautista Casey MD Unavailable [phone] AnnyJasmyn tracey [facility] Unavailable [phone] Vika Kevin APRN [facility] Primary Care Prov ider Vika Kevin APRN [facility] Primary Care Prov ider Yasmeen Pendleton [facility] Unavailable [phone] Vika Kevin [facility] Primary Care Prov ider Encounter Details Date Type Department Care Team (Late st Contact Info) Description 06/08/2007 MyC Medical Advice [address] [phone] Andrew Lu MD XXX RETIRED XXX [address] [place] [phone] Social History Tobacco Use Types Packs/Day Years Used Date Smoking Tobacco: Former Cigarettes 0.3 15 0 10/26/1961 - 10/26/1976 Alcohol Use Standard Drinks/Week Comments Yes 0 (1 standard drink = 0.6 oz pur e alcohol) 1 wine 2x qweek Comments No Sex and Gender Information Value Date Recorded Sex Assigned at Not on file Legal 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 YARD LABORER Gender Identity Not on file Sexual Orientation Not on file documented as of this encounter Plan of Treatment Not on file documented as of this encounter Visit Diagnoses Not on filedocumented in this encounter Additional Health Concerns Infection Onset Date Last Indicated Resolved Time Rule Out COVID-19 07/25/2020 07/25/2020 07/26/2020 3:02 PM CDT Rule Out COVID-19 12/04/2020 12/04/2020 12/05/2020 6:04 PM YARD LABORER documented as of this encounter Care Teams Hair Dresser Relationship Specialty Start Date End Date Andrew Lu MD XXX RETIRED XXX [address] [place] [phone] PCP - General 12/10/01 01/10/14 Niko Resendiz MD [address] [place] [address] PCP - General Internal Medicine 01/11/14 01/29/14 Carlie Mac MD [address] [place], [place] [phone] PCP - General Pediatrics 01/30/14 07/17/15 Angella Mendieta MD [address] [place] [address] 472952 PCP - General Family Practice 07/18/15 09/11/15 Julito Banuelos MD [address] [place] [address] 449582 PCP - General Family Practice 09/12/15 09/23/21 Julito Banuelos MD [address] [place] [address]66 PCP - Assigned PCP 02/17/16 12/28/18 Vika Kevin APRN CIG[employer] HEAD P[employer]CH[employer] [address] [place] [address] 086732 PCP - General Nurse Practitioner - Family 09/24/21 03/05/22 Vika Kevin APRN CIGAR HEAD PUNCH[employer] [address] [place] [address] [phone] PCP - General Nurse Practitioner - Family 03/18/22 06/18/22 Vika Kevin APRN CIGAR HEAD PUNCHER [address] [place] [address] 347462 PCP - General Nurse Practitioner - Family 07/24/22 Julito Banuelos MD [address] [place] [address] 823122 Assigned PCP 02/17/16 07/21/[address] [place] [address] [employer] Wireman Dietitian, Registered 04/14/19 Mary Kay Jones, [facility] Pharmacist 08/01/19 04/20/20 [facility] [address] [place] [address] 812 [place], [place] 753925 Pharmacist Pharmacist 08/08/19 04/15/21 [facility] [address] [place] [address] Pharmacist Pharmacist 06/25/20 04/15/21 Vika Kevin APRN CIGAR HEAD PUNCH[employer] [address] [place] [address] 411842 Assigned PCP 07/22/20 11/16/24 Marilyn Willard MD [address] [place] [address] [address] [place], [place] 237795 Assigned Surgical Provider 08/17/20 08/16/24 Carie Varela DO [address] [place] [address] Assigned Heart and Vascular Provider 08/17/20 01/19/21 Maylin May NP [address] [place] [address] Assigned Pediatric Specialist Provider 12/16/20 06/13/22 Marisa Rodrigues, RN Clinic Sports Reporter 01/15/21 02/26/21 Vilma Long MD [address] [place] [address] Assigned Heart and Vascular Provider 01/20/21 07/20/21 Yasmeen Pendleton [facility] [address] [place] [address] Pharmacist Pharmacist 06/04/21 01/15/22 Cole George LISW Lead Sports Reporter 06/13/21 10/07/21 Fletcher Up Community Health Worker 06/13/21 09/12/21 Bautista Casey MD [address] [place] [address] Assigned Heart and Vascular Provider 07/21/21 01/16/23 Jasmyn Oliver CHW Community Health Worker 09/13/21 10/07/21 Yasmeen Pendleton [facility] [address] [place] [address] Assigned MTM Pharmacist 03/22/22 01/02/23 documented as of this encounter
--- OUTSIDE RECORDS SUMMARY | 2025-04-13 17:31 | XMS_ITS | Encounter Summary ---
Author Organization [place] Address [address] [facility] [place] [address] Care Team Providers Care Conveyor Technician Name Role Phone Niko Resendiz MD Primary Care Provider Carlie Mac MD Primary Care Provide r Angella Mendieta MD Primary Care Provider Julito Banuelos MD Primary Care Provider [phone] Julito Banuelos MD Unavailable Julito Banuelos MD Unavailable Aleshia Henriquez [address] Unavailable Unavailable Mary Kay Jones RP Unavailable Unavailable Susannah Blankenship [facility] Unavailable [phone] Carolyn Huynh [facility] Unavailable [phone] Vika Kevin SHOE POLISHER BUSINESS STRATEGIST Unavailable + Marilyn Willard MD Unavailable Carie Varela DO Unavailable [phone] Maylin May NP Unavailable [phone] Marisa Hernandez RN Unavailable Unavailable Vilma Long MD Unavailable + [phone] Yasmeen Pendleton [facility] Unavailable Cole George Unavailable Unavai jonathan Up Fletcher Unavailable Unavailable Ip, Bautista Bell MD Unavailable TatyanaJasmyn anand W Unavailable [phone] Vika Kevin SHOE POLISHER [facility] Primary Care Prov ider Vika Kevin [facility] Primary Care Prov ider Yasmeen Pendleton [facility] Unavailable + [phone] Vika Kevin [facility] Primary Care Prov ider Reason for Visit * Reason Onset Date Comments Other 01/28/2014 PCP change Encounter Details Date Type Department Care Team (Late st Contact Info) Description 01/28/2014 [facility] Medical Advice [address] [phone] Carlie Mac MD [address] [place] [address] Other (PCP change ) Social [...] on file Legal 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 Gender Identity Not on file Sexual [...] Out COVID-19 12/04/2020 12/04/2020 12/05/2020 6:04 PM 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 documented as of this encounter Care Teams Conveyor Technician Relationship Specialty Start Date End Date Niko Resendiz MD [address] [place] [address] PCP - General Internal Medicine 01/11/14 01/29/14 Carlie Mac MD [address] [place] [address] PCP - General Pediatrics 01/30/14 07/17/15 Angella Mendieta MD [address] [place] [address] PCP - General Family Practice 07/18/15 09/11/15 Julito Banuelos MD [address] [place] [address] PCP - General Family Practice 09/12/15 09/23/21 Julito Banuelos MD [address] [place] [address] PCP - Assigned PCP 02/17/16 12/28/18 Vika Kevin APRN BUSINESS STRATEGIST [address] [place] [address] PCP - General Nurse Practitioner - Family 09/24/21 03/05/22 Vika Kevin APRN BUSINESS STRATEGIST [address] [place] [address] PCP - General Nurse Practitioner - Family 03/18/22 06/18/22 Vika Kevin, JAIME BUSINESS STRATEGIST [address] [place] [address] [phone] PCP - General Nurse Practitioner - Family 07/24/22 Julito Banuelos MD [address] [place] [address] [phone] Assigned PCP 02/17/16 07/21/[address] [place] [address] Jet Aircraft Servicer Dietitian, Registered 04/14/19 Mary Kay Jones, [facility] Pharmacist 08/01/19 04/20/20 Susannah Blankenship, [facility] [address] [facility] [address] [place], [place] 414[address] Pharmacist Pharmacist 08/08/19 04/15/21 [facility] [address] [place], [place] [address] Pharmacist Pharmacist 06/25/20 04/15/21 Vika Kevin, JAIME BUSINESS STRATEGIST [address] [place] [address] [phone] Assigned PCP 07/22/20 11/16/24 Marilyn Willard MD [address] [facility] [address] [place], [place] 682425 Assigned Surgical Provider 08/17/20 08/16/24 Carie Varela DO [address] [place] [address] Assigned Heart and Vascular Provider 08/17/20 01/19/21 Maylin May NP [address] [facility] [place] [address] Assigned Pediatric Specialist Provider 12/16/20 06/13/22 Marisa Rodrigues, RN Clinic Foil Stamp Operator 01/15/21 02/26/21 Vilma Long MD [address] [place] [address] Assigned Heart and Vascular Provider 01/20/21 07/20/21 [facility] [address] [place] [address] Pharmacist Pharmacist 06/04/21 01/15/22 Cole George LISW Lead Foil Stamp Operator 06/13/21 10/07/21 Fletcher Up Community Health Worker 06/13/21 09/12/21 Bautista Casey MD [address] [place] [address] Assigned Heart and Vascular Provider 07/21/21 01/16/23 Jasmyn Oliver CHW Community Health Worker 09/13/21 10/07/21 [facility] [address] [place] [address] Assigned MTM Pharmacist 03/22/22 01/02/23 documented as of this encounter
--- OUTSIDE RECORDS SUMMARY | 2025-04-13 17:31 | XMS_ITS | Encounter Summary ---
Author Organization [place] Address [address] [facility] [place] [address] Care Team Providers Care Carbon Coating Machine Operator Name Role Phone Cortez Lu MD Primary Care Provider [phone] Niko Resendiz MD Primary Care Provider Carlie Mac MD Primary Care Provide r Angella Mendieta MD Primary Care Provider Julito Banuelos MD Primary Care Provider [phone] Julito Banuelos MD Unavailable Julito Banuelos MD Unavailable Aleshia Henriquez RD Unavailable Unavailable Mary Kay Jones [facility] Unavailable Unavailable Susannah Blankenship [facility] Unavailable +[phone] Carolyn Huynh [facility] Unavailable [phone] Vika Kevin APRN SUPERVISOR CLEANING AND ANNEALING Unavailable + Marilyn Willard MD Unavailable +[phone] Carie Varela DO Unavailable +[phone] Maylin May NP Unavailable [phone] Mraisa Rodrigues RN Unavailable Unavailable iVlma Long MD Unavailable + [phone] Yasmeen Pendleton [facility] Unavailable + [phone] Cole George Unavailable Fletcher Russell Unavailable Unavailable Bautista Casey MD Unavailable +[phone] TatyanaJasmyn anand [facility] Unavailable [phone] Vika Kevin APRN [facility] Primary Care Prov ider Vika Kevin APRN [facility] Primary Care Prov ider Yasmeen Pendleton [facility] Unavailable + [phone] Vika 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 Diabetes Zlgvsomz-Kpz-Nrvysuz Dependent, 250.00 2. - Hyperlipidemia mixed, 272.2 [...] daily 10. Nasacort AQ 55 mcg Aerosol, [place], Take as Directed 11. Plavix 75 mg [...] the pleasure of seeing Marialuisa Cosby in [facility] Heart [facility]. She is a 73-year-old white female with a history of coronary artery disease, hypertension, diabetes, dyslipidemia, and asthma who is here today to reevaluate her palpitations. Her cardiovascular history includes hypertension, diabetes, and dyslipidemia. In December,, whilevisiting in [place] she had a ydq-JY-bzoyyeiwj myocardial infarction and underwent an angiogram with PCI to the proximal and mid circumflex. LV function has been normal by echocardiogram. Apparently the advertising associate in [place] recommended lifelong Plavix. She was seen by [...] Leg syndrome Past Cardiac Illnesses: CAD, s/p MA Surgeries/Procedures - General: hysterectomy, tonsillectomy Cardiac/Vasc Procedures-Invasive: left heart cath 12/2012 ([place]) Cardiology Procedures-NonInvasive: echocardiogram Jun 2007, myocardial perfusion (Nuc) Jun 2007, echo 12/2012 ([place]), stress echo February 2013 Cardiac Cath Results: 12/2012 [place] Resolute NELIA to the mid and prox [...] - lives with ; Place of - [place]; REVIEW OF SYSTEMS GENERAL fatigue, feels spacey [...] Weight- 215.00 lbs. Height- 67 BMI Measurement: [employer] Error: [[employer]][[employer] SQL Furnace Combustion Tester Sales Representative Printing][SQL Furnace Combustion Tester]Divide by zero error encountered. - 66621 CONSTITUTIONAL well developed, well nourished, in no [...] 2. Coronary artery disease. She had a vzx-BF-zlqhrtvtv myocardial infarction in December and remains on [...] COVID-19 12/04/2020 12/04/2020 12/05/2020 6:04 PM AUTOMATION ENGINEERING MANAGER documented as of this encounter Care Teams Carbon Coating Machine Operator Relationship Specialty Start Date End Date Cortez Lu MD XXX RETIRED XXX [address] [place] [phone] PCP - General 12/10/01 01/10/14 Niko Resendiz MD [address] [place] [address] PCP - General Internal Medicine 01/11/14 01/29/14 Carlie Mac MD [address] [place] [address] PCP - General Pediatrics 01/30/14 07/17/15 Angella Mendieta MD [address] [place] [address] PCP - General Family Practice 07/18/15 09/11/15 Julito Banuelos MD [address] [place] [address] PCP - General Family Practice 09/12/15 09/23/21 Julito Banuelos MD [address] [place] [address] PCP - Assigned PCP 02/17/16 12/28/18 Vika Kevin APRN SUPERVISOR CLEANING AND ANNEALING [address] [place] [address] PCP - General Nurse Practitioner - Family 09/24/21 03/05/22 Vika Kevin APRN SUPERVISOR CLEANING AND ANNEALING [address] [place] [address] PCP - General Nurse Practitioner - Family 03/18/22 06/18/22 Vika Kevin APRN SUPERVISOR CLEANING AND ANNEALING [address] [place] [address] PCP - General Nurse Practitioner - Family 07/24/22 Julito Banuelos MD [address] [place] [address] Assigned PCP 02/17/16 07/21/[address] [place] [address] Pan Helper Dietitian, Registered 04/14/19 Mary Kay Jones [facility] Pharmacist 08/01/19 04/20/20 Susannah Blankenship [facility] [address] [place] [address] [address] [place] [address] Pharmacist Pharmacist 08/08/19 04/15/21 Carolyn Huynh, [facility] [address] [place] [address] Pharmacist Pharmacist 06/25/20 04/15/21 Vika Kevin, PLASTIC SHAPER SUPERVISOR CLEANING AND ANNEALING [address] [place], [place] [address] Assigned PCP 07/22/20 11/16/24 Marilyn Willard MD [address] [facility] [address] [place] [address] Assigned Surgical Provider 08/17/20 08/16/24 Carie Varela DO [address] [place] [address] Assigned Heart and Vascular Provider 08/17/20 01/19/21 Maylin May NP [address] [place], [place] [id number] Assigned Pediatric Specialist Provider 12/16/20 06/13/22 Marisa Rodrigues, RN Clinic Chief Estimator 01/15/21 02/26/21 Vilma Long MD [address] [place] [address] Assigned Heart and Vascular Provider 01/20/21 07/20/21 Yasmeen Pendleton [facility] [address] [place] [address] Pharmacist Pharmacist 06/04/21 01/15/22 Cole George LISW Lead Chief Estimator 06/13/21 10/07/21 Fletcher Up Community Health Worker 06/13/21 09/12/21 Bautista Casey MD [address] [place] [address] Assigned Heart and Vascular Provider 07/21/21 01/16/23 Jasmyn Oliver CHW Community Health Worker 09/13/21 10/07/21 Yasmeen Pendleton, [facility] [address] [place], [place] [address] Assigned MTM Pharmacist 03/22/22 01/02/23 documented as of this encounter
--- OUTSIDE RECORDS SUMMARY | 2025-04-13 17:31 | XMS_ITS | Encounter Summary ---
Author Organization [place] Address [address] [facility] [place] [address] Care Team Providers Care Sole Seamer Name Role Phone Andrew Lu MD Primary Care Provider [phone] Niko Resendiz MD Primary Care Provider Carlie Mac MD Primary Care Provide r Angella Mendieta MD Primary Care Provider Julito Banuelos MD Primary Care Provider [phone] Julito Banuelos MD Unavailable Julito Banuelos MD Unavailable Aleshia Henriquez RD Unavailable Unavailable Mary Kay Jones [facility] Unavailable Unavailable Susannah Blankenship [facility] Unavailable [phone] Carolyn Huynh [facility] Unavailable [phone] Vika Kevin APRN ELECTROTYPER APPRENTICE Unavailable + Marilyn Willard MD Unavailable [phone] Carie Varela DO Unavailable [phone] Maylin May NP Unavailable [phone] Marisa Rodrigues RN Unavailable Unavailable Vilma Long MD Unavailable + [phone] Yasmeen Pendleton [facility] Unavailable [phone] Cole George Unavailable Fletcher Russell Unavailable Unavailable Bautista Casey MD Unavailable Jasmyn Oliver [facility] Unavailable [phone] Vika Kevin AUTO PAINTER [facility] Primary Care Prov ider Vika Kevin APRN [facility] Primary Care Prov ider Yasmeen Pendleton [facility] Unavailable Vika Kevin [facility] Primary Care Prov ider Encounter Details Date Type Department Care Team (Late st Contact Info) Description 09/22/2010 MyC Medical Advice [address] [phone] Andrew Lu MD XXX RETIRED XXX [address] [place] [phone] Social History Tobacco Use Types Packs/Day Years Used Date Smoking Tobacco: Former Cigarettes 0.3 15 0 10/26/1961 - 10/26/1976 Alcohol Use Standard Drinks/Week Comments Yes 0 (1 standard drink = 0.6 oz pur e alcohol) 1 wine 2x qweek Comments No Sex and Gender Information Value Date Recorded Sex Assigned at Not on file Legal 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 ARTIFICIAL 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 FICIAL PEARL MAKER * Telephone Encounter - Vika Downing - 09/30/2010 3:17 PM CST The sleep study has not be read by DR Suggs yet. They will fax it over one it has been read. FICIAL PEARL MAKER * Telephone Encounter - CoronaBo - 09/23/2010 10:28 AM CST Please get the sleep study results scanned int o epic. FICIAL PEARL MAKER documented in this encounter Plan of Treatment Not on file documented as of this encounter Visit Diagnoses Not on filedocumented in this encounter Additional Health Concerns Infection Onset Date Last Indicated Resolved Time Rule Out COVID-19 07/25/2020 07/25/2020 07/26/2020 3:02 PM CDT Rule Out COVID-19 12/04/2020 12/04/2020 12/05/2020 6:04 PM ARTIFICIAL PEARL MAKER documented as of this encounter Care Teams Sole Seamer Relationship Specialty Start Date End Date Andrew Lu MD XXX RETIRED XXX [address] [place] [phone] PCP - General 12/10/01 01/10/14 Niko Resendiz MD [address] [address] PCP - General Internal Medicine 01/11/14 01/29/14 Carlie Mac MD [address] [place] [address] PCP - General Pediatrics 01/30/14 07/17/15 Angella Mendieta MD [address] [place] [address] PCP - General Family Practice 07/18/15 09/11/15 Jultio Banuelos MD [address] [place] [address] PCP - General Family Practice 09/12/15 09/23/21 Julito Banuelos MD [address] [place] [address] PCP - Assigned PCP 02/17/16 12/28/18 Vika Kevin APRN ELECTROTYPER APPRENTICE [address] [place] [address] PCP - General Nurse Practitioner - Family 09/24/21 03/05/22 Vika Kevin APRN ELECTROTYPER APPRENTICE [address] [place] [address]21 PCP - General Nurse Practitioner - Family 03/18/22 06/18/22 Vika Kevin APRN ELECTROTYPER APPRENTICE [address] [place] [address] PCP - General Nurse Practitioner - Family 07/24/22 Julito Banuelos MD [address] [place] [address] Assigned PCP 02/17/16 07/21/[address] [place] [address] Supervisor International [employer]ations Dietitian, Registered 04/14/19 Mary Kay Jones [facility] Pharmacist 08/01/19 04/20/20 Susannah Blankenship [facility] [address] [place] [address] 8[address] [place] [address] Pharmacist Pharmacist 08/08/19 04/15/21 Carolyn Huynh [facility] [address] [place] [address] Pharmacist Pharmacist 06/25/20 04/15/21 Vika Kevin APRN ELECTROTYPER APPRENTICE [address] [place], [place] [address] Assigned PCP 07/22/20 11/16/24 Marilyn Willard MD [address] [facility] [address] [place], [place] [address] Assigned Surgical Provider 08/17/20 08/16/24 Carie Varela DO [address] [place] [address] Assigned Heart and Vascular Provider 08/17/20 01/19/21 Maylin May NP [address] [place], [place] [id number] Assigned Pediatric Specialist Provider 12/16/20 06/13/22 Marisa Rodrigues RN Clinic Central Office Worker 01/15/21 02/26/21 Vilma Long MD [address] [place] [address] Assigned Heart and Vascular Provider 01/20/21 07/20/21 Yasmeen Pendleton [facility] [address] [place] [address] Pharmacist Pharmacist 06/04/21 01/15/22 Cole George LISW Lead Central Office Worker 06/13/21 10/07/21 Fletcher Up Community Health Worker 06/13/21 09/12/21 Bautista Casey MD [address] [place] [address] Assigned Heart and Vascular Provider 07/21/21 01/16/23 Jasmyn Oliver CHW Community Health Worker 09/13/21 10/07/21 Yasmeen Pendleton [facility] [address] [place], [place] [address] Assigned MTM Pharmacist 03/22/22 01/02/23 documented as of this encounter
--- OUTSIDE RECORDS SUMMARY | 2025-04-13 17:31 | XMS_ITS | Encounter Summary ---
Author Organization [place] Address [address] [facility] [place] [address] Care Team Providers Care Mechanic Industrial Truck Name Role Phone Cortez Lu MD Primary Care Provider [phone] Niko Resendiz MD Primary Care Provider Carlie Mac MD Primary Care Provide r Angella Mendieta MD Primary Care Provider Julito Banuelos MD Primary Care Provider [phone] Julito Banuelos MD Unavailable Julito Banuelos MD Unavailable Aleshia Henriquez RD Unavailable Unavailable Mary Kay Jones [facility] Unavailable Unavailable Susannah Blankenship [facility] Unavailable [phone] Carolyn Huynh [facility] Unavailable [phone] Vika Kevin APRN MAINTENANCE DIRECTOR Unavailable + Marilyn Willard MD Unavailable [phone] Carie Varela DO Unavailable [phone] Maylin May NP Unavailable [phone] Marisa Rodrigues RN Unavailable Unavailable Vilma Long MD Unavailable + [phone] Yasmeen Pendleton [facility] Unavailable + [phone] Cole George Unavailable Fletcher Russell Unavailable Unavailable Bautista Casey MD Unavailable [phone] TatyanaJasmyn anand [facility] Unavailable [phone] Vika Kevin APRN [facility] Primary Care Prov ider Vika Kevin APRN [facility] Primary Care Prov ider Yasmeen Pendleton [facility] Unavailable + [phone] Vika Kevin [facility]. [facility] Primary Care Prov ider Encounter Details Date Type Department Care Team (Late st Contact Info) Description 11/14/2013 Office Visit-[facility] Heart [facility] [address] [facility] [address] [place] [phone] Cristy Hanna, JAIME [facility] XXX RESIGNED XXX [address] [facility] [address] [place] [id number] Social History Tobacco Use Types Packs/Day Years Used Date Smoking Tobacco: Former Cigarettes 0.3 15 0 10/26/1961 - 10/26/1976 Smokeless Tobacco: Never Alcohol Use Standard Drinks/Week Comments Yes 0 (1 standard drink = 0.6 oz pur e alcohol) 1-2 glasses of wine weekly Comments No Sex and Gender Information Value Date Recorded Sex Assigned at Not on file Legal 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 Diabetes Pxafimvv-Uhy-Bolmsup Dependent, 250.00 2. - Hyperlipidemia mixed, 272.2 [...] daily 10. Nasacort AQ 55 mcg Aerosol, [place], Take as Directed 11. Plavix 75 mg [...] the pleasure of meeting Marialuisa James, at [facility]. She is a 73-year-old white female with a history of coronary artery disease, hypertension, diabetes mellitus, dyslipidemia and asthma, who is here today for evaluation of pal pitations, which awoke her from sleep. Her cardiovascular history includes hypertension, diabetes mellitus and dyslipidemia. In December 2012while in [place] she had a non-ST elevation myocardial infarction and underwent angiogram with PCI to the proximal and mid circumflex. LV function has been normal by echocardiogram. Apparently the car diologist in [place] recommended lifelong Plavix. She was last seen [...] Leg syndrome Past Cardiac Illnesses: CAD, s/p [place] Surgeries/Procedures - General: hysterectomy, tonsillectomy Cardiac/Vasc Procedures-Invasive: left heart cath 12/2012 ([place]) Cardiology Procedures-NonInvasive: echocardiogram Jun 2007, myocardial perfusion (Nuc) Jun 2007, echo 12/2012 ([place]), stress echo February 2013 Cardiac Cath Results: 12/2012 [place] Resolute NELIA to the mid and prox [...] - lives with and been living in [place] for 3 months; Place of - [place]; REVIEW OF SYSTEMS GENERAL fatigue, weight loss, [...] [place] but they can get bad in [place] too PHYSICAL EXAMINATION VITAL SIGNS: Blood Pressure: [...] Out COVID-19 12/04/2020 12/04/2020 12/05/2020 6:04 PM WAX BALL MOLDER documented as of this encounter Care Teams Mechanic Industrial Truck Relationship Specialty Start Date End Date Cortez Lu MD XXX RETIRED XXX [address] [place] [phone] PCP - General 12/10/01 01/10/14 Niko Resendiz MD [address] [address] PCP - General Internal Medicine 01/11/14 01/29/14 Carlie Mac MD [address] [place] [address] PCP - General Pediatrics 01/30/14 07/17/15 Angella Mendieta MD [address] [place] [address] PCP - General Family Practice 07/18/15 09/11/15 Julito Banuelos MD [address] [place] [address] PCP - General Family Practice 09/12/15 09/23/21 Julito Banuelos MD [address] [place] [address] PCP - Assigned PCP 02/17/16 12/28/18 Vika Kevin APRN MAINTENANCE DIRECTOR [address] [place] [address] PCP - General Nurse Practitioner - Family 09/24/21 03/05/22 Vika Kevin APRN MAINTENANCE DIRECTOR [address] [place] [address] PCP - General Nurse Practitioner - Family 03/18/22 06/18/22 Vika Kevin APRN MAINTENANCE DIRECTOR [address] [place] [address] PCP - General Nurse Practitioner - Family 07/24/22 Julito Banuelos MD [address] [place] [address] Assigned PCP 02/17/16 07/21/[address] [place] [address] Explosive Ordnance Specialist Dietitian, Registered 04/14/19 Mary Kay Jones [facility] Pharmacist 08/01/19 04/20/20 Susannah Blankenship [facility] [address] [place] [address] [address] [place] [address] Pharmacist Pharmacist 08/08/19 04/15/21 Carolyn Huynh [facility] [address] [place] [address] Pharmacist Pharmacist 06/25/20 04/15/21 Vika Kevin APRN MAINTENANCE DIRECTOR [address] [place], [place] [address] Assigned PCP 07/22/20 11/16/24 Marilyn Willard MD [address] [facility] [address] [place], [place] [address] Assigned Surgical Provider 08/17/20 08/16/24 Carie Varela DO [address] [place] [address] Assigned Heart and Vascular Provider 08/17/20 01/19/21 Maylin May NP [address] [place], [place] [address] Assigned Pediatric Specialist Provider 12/16/20 06/13/22 Marisa Rodrigues, RN Clinic Ranch Helper 01/15/21 02/26/21 Vilma Long MD [address] [place] [address] Assigned Heart and Vascular Provider 01/20/21 07/20/21 Yasmeen Pendleton [facility] [address] [place], [place] [address] Pharmacist Pharmacist 06/04/21 01/15/22 Cole George LISW Lead Ranch Helper 06/13/21 10/07/21 Fletcher Up Community Health Worker 06/13/21 09/12/21 Bautista Casey MD [address] [place] [address] Assigned Heart and Vascular Provider 07/21/21 01/16/23 Jasmyn Oliver CHW Community Health Worker 09/13/21 10/07/21 Yasmeen Pendleton [facility] [address] [place], [place] [address] Assigned MTM Pharmacist 03/22/22 01/02/23 documented as of this encounter
--- OUTSIDE RECORDS SUMMARY | 2025-04-13 17:31 | XMS_ITS | Encounter Summary ---
Author Organization [place] Address [address] [place] [address] Care Team Providers Care Labor Law Professor Name Role Phone Niko Resendiz MD Primary Care Provider Carlie Mac MD Primary Care Provide r Angella Mendieta MD Primary Care Provider Julito Banuelos MD Primary Care Provider Julito Banuelos MD Unavailable Julito Banuelos MD Unavailable Aleshia Henriquez RD Unavailable Unavailable Mary Kay Jones RP Unavailable Unavailable Susannah Blankenship [facility] Unavailable +[phone] Carolyn Huynh [facility] Unavailable +[phone] Vika Kevin GREENHOUSE FLORIST COFFEE MAKER SERVICER Unavailable + Marilyn Willard MD Unavailable [phone] Carie Varela DO Unavailable +[phone] Maylin May NP Unavailable [phone] Marisa Hernandez RN Unavailable Unavailable Vilma Long MD Unavailable + [phone] Yasmeen Pendleton [facility] Unavailable Cole George Unavailable Unavai jonathan Up Fletcher Unavailable Unavailable Ip, Bautista Bell MD Unavailable [phone] TatyanaJasmyn anand W Unavailable +[phone] Vika Kevin GREENHOUSE [facility] Primary Care Prov ider Vika Kevin [facility] Primary Care Prov ider Yasmeen Pendleton [facility] Unavailable + [phone] Vika Kevin [facility] Primary Care Prov ider Reason for Visit * Reason Onset Date Comments Medication Question 01/28/2014 Update Encounter Details Date Type Department Care Team (Late st Contact Info) Description 01/28/2014 [facility] Medical Advice [address] [address] Carlie Mac MD [address] [place] [address] Medication Question (Update ) Social [...] on file Legal 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 SIDEROGRAPHIST Gender Identity Not on file Sexual Orientation [...] Out COVID-19 12/04/2020 12/04/2020 12/05/2020 6:04 PM SIDEROGRAPHIST documented as of this encounter Care Teams Labor Law Professor Relationship Specialty Start Date End Date Niko Resendiz MD [address] [place] [address] PCP - General Internal Medicine 01/11/14 01/29/14 Carlie Mac MD [address] [place] [address] PCP - General Pediatrics 01/30/14 07/17/15 Angella Mendieta MD [address] [place] [address] PCP - General Family Practice 07/18/15 09/11/15 Julito Banuelos MD [address] [place] [address] 45448 PCP - General Family Practice 09/12/15 09/23/21 Julito Banuelos MD [address] [place] [address] 02642 PCP - Assigned PCP 02/17/16 12/28/18 Vika Kevin APRN COFFEE MAKER SERVICER [address] [place] [address]32 PCP - General Nurse Practitioner - Family 09/24/21 03/05/22 Vika Kevin APRN COFFEE MAKER SERVICER [address] [place] [address] PCP - General Nurse Practitioner - Family 03/18/22 06/18/22 Vika Kevin APRN COFFEE MAKER SERVICER [address] [place] [address] 67385 PCP - General Nurse Practitioner - Family 07/24/22 Julito Banuelos MD [address] [place] [address] 270832 Assigned PCP 02/17/16 07/21/[address] [place] [address] Bleacher Pulp Dietitian, Registered 04/14/19 Mary Kay Jones, [facility] Pharmacist 08/01/19 04/20/20 Susannah Blankenship [facility] [address] [facility] [address] [place], [place] [address]395 Pharmacist Pharmacist 08/08/19 04/15/21 Carolyn Huynh, [facility] [address] [place], [place] [address] Pharmacist Pharmacist 06/25/20 04/15/21 Vika Kevin, JAIME COFFEE MAKER SERVICER [address] [place] [address] [phone] Assigned PCP 07/22/20 11/16/24 Marilyn Willard MD [address] [facility] [address] [place], [place] 8[address]25 Assigned Surgical Provider 08/17/20 08/16/24 Carie Varela DO [address] [place] [address] Assigned Heart and Vascular Provider 08/17/20 01/19/21 Maylin May NP [address] [place] [address] Assigned Pediatric Specialist Provider 12/16/20 06/13/22 Marisa Rodrigues, RN Clinic Care Management Specialist 01/15/21 02/26/21 Vilma Long MD [address] [place] [address] Assigned Heart and Vascular Provider 01/20/21 07/20/21 [facility] [address] [place] [address] Pharmacist Pharmacist 06/04/21 01/15/22 Cole George LISW Lead Care Management Specialist 06/13/21 10/07/21 Fletcher Up Community Health Worker 06/13/21 09/12/21 Bautista Casey MD [address] [place] [address] Assigned Heart and Vascular Provider 07/21/21 01/16/23 Jasmyn Oliver CHW Community Health Worker 09/13/21 10/07/21 [facility] [address] [place] [address] Assigned MTM Pharmacist 03/22/22 01/02/23 documented as of this encounter
--- OUTSIDE RECORDS SUMMARY | 2025-04-13 17:31 | XMS_ITS | Encounter Summary ---
Author Organization [place] Address [address] [facility] [place] [address] Care Team Providers Care Chip Frier Name Role Phone Andrew Lu MD Primary Care Provider [phone] Niko Resendiz MD Primary Care Provider Carlie Mac MD Primary Care Provide r Angella Mendieta MD Primary Care Provider Julito Banuelos MD Primary Care Provider [phone] Julito Banuelos MD Unavailable Julito Banuelos MD Unavailable Aleshia Henriquez RD Unavailable Unavailable Mary Kay Jones [facility] Unavailable Unavailable Susannah Blankenship [facility] Unavailable +[phone] Carolyn Huynh [facility] Unavailable [phone] Vika Kevin APRN WORDPRESS DEVELOPER Unavailable + Marilyn Willard MD Unavailable [phone] Carie Varela DO Unavailable [phone] Maylin May NP Unavailable [phone] Marisa Rodrigues RN Unavailable Unavailable Vilma Long MD Unavailable + [phone] Yasmeen Pendleton [facility] Unavailable [phone] Cole George Unavailable Fletcher Russell Unavailable Unavailable Bautista Casey MD Unavailable AnnyJasmyn tracey [facility] Unavailable [phone] Vika Kevin APRN [facility] Primary Care Prov ider Vika Kevin APRN [facility] Primary Care Prov ider Yasmeen Pendleton [facility] Unavailable [phone] V[facility] Primary Care Prov ider Encounter Details Date Type Department Care Team (Late st Contact Info) Description 01/03/2014 [facility] Medical Advice [address] [address] Niko Resendiz MD [address] [place] [address] [phone] Social History Tobacco Use Types Packs/Day Years Used Date Smoking Tobacco: Former Cigarettes 0.3 15 0 10/26/1961 - 10/26/1976 Smokeless Tobacco: Never Alcohol Use Standard Drinks/Week Comments Yes 0 (1 standard drink = 0.6 oz pur e alcohol) 1-2 glasses of wine weekly Comments No Sex and Gender Information Value Date Recorded Sex Assigned at Not on file Legal 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 CEMENTER AND FOLDER Gender Identity Not on file Sexual Orientation [...] Out COVID-19 12/04/2020 12/04/2020 12/05/2020 6:04 PM MACHINE CEMENTER AND FOLDER documented as of this encounter Care Teams Chip Frier Relationship Specialty Start Date End Date Andrew Lu MD XXX RETIRED XXX [address] [place] [phone] PCP - General 12/10/01 01/10/14 Niko Resendiz MD [address] [place] [address] PCP - General Internal Medicine 01/11/14 01/29/14 Carlie Mac MD [address] [place] [address] PCP - General Pediatrics 01/30/14 07/17/15 Angella Mendieta MD [address] [place] [address] PCP - General Family Practice 07/18/15 09/11/15 Julito Banuelos MD [address] [place] [address] PCP - General Family Practice 09/12/15 09/23/21 Julito Banuelos MD [address] [place] [address] PCP - Assigned PCP 02/17/16 12/28/18 Vika Kevin APRN WORDPRESS DEVELOPER [address] [place] [address] PCP - General Nurse Practitioner - Family 09/24/21 03/05/22 Vika Kevin APRN WORDPRESS DEVELOPER [address] [place] [address] PCP - General Nurse Practitioner - Family 03/18/22 06/18/22 Vika Kevin APRN WORDPRESS DEVELOPER [address] [place] [address] [id number] PCP - General Nurse Practitioner - Family 07/24/22 Julito Banuelos MD [address] [place] [address] 917752 Assigned PCP 02/17/16 07/21/[address] [place] [address] Substitute Bus Driver Dietitian, Registered 04/14/19 [facility] Pharmacist 08/01/19 04/20/20 Susannah Blankenship, [facility] [address] [place] [address] 812 [place], [place] [id number] Pharmacist Pharmacist 08/08/19 04/15/21 Carolyn Huynh, [facility] [address] [place] [address] Pharmacist Pharmacist 06/25/20 04/15/21 Vika Kevin APRN WORDPRESS DEVELOPER [address] [place] [address] [phone] Assigned PCP 07/22/20 11/16/24 Marilyn Willard MD [address] [place] [address] 394 [place], [place] 028385 Assigned Surgical Provider 08/17/20 08/16/24 Carie Varela DO [address] [place] [address] Assigned Heart and Vascular Provider 08/17/20 01/19/21 Maylin May NP [address] [place] [address] Assigned Pediatric Specialist Provider 12/16/20 06/13/22 Marisa Rodrigues, RN Clinic [place] 01/15/21 02/26/21 Vilma Long MD [address] [place] [address] Assigned Heart and Vascular Provider 01/20/21 07/20/21 Yasmeen Pendleton [facility] [address] [place] [address] Pharmacist Pharmacist 06/04/21 01/15/22 Cole George LISW Lead [place]ond [place]yer 06/13/21 10/07/21 Fletcher Up Community Health Worker 06/13/21 09/12/21 Bautista Casey MD [address] [place] [address] Assigned Heart and Vascular Provider 07/21/21 01/16/23 Jasmyn Oliver CHW Community Health Worker 09/13/21 10/07/21 Yasmeen Pendleton [facility] [address] [place] [address] Assigned MTM Pharmacist 03/22/22 01/02/23 documented as of this encounter
--- OUTSIDE RECORDS SUMMARY | 2025-04-13 17:31 | XMS_ITS | Encounter Summary ---
Author Organization [place] Address [address] [facility] [place] [address] Care Team Providers Care Audiology Director Name Role Phone Andrew Lu MD Primary Care Provider [phone] Niko Resendiz MD Primary Care Provider Carlie aMc MD Primary Care Provide r Angella Mendieta MD Primary Care Provider Julito Banuelos MD Primary Care Provider [phone] Julito Banuelos MD Unavailable Julito Banuelos MD Unavailable Aleshia Henriquez RD Unavailable Unavailable Mary Kay Jones [facility] Unavailable Unavailable Susannah Blankenship [facility] Unavailable [phone] Carolyn Huynh [facility] Unavailable [phone] Vika Kevin APRN JUNIOR NETWORK ADMINISTRATOR Unavailable + Marilyn Willard MD Unavailable [phone] Carie Varela DO Unavailable [phone] Maylin May NP Unavailable [phone] Marisa Rodrigues RN Unavailable Unavailable Vilma Long MD Unavailable + [phone] Yasmeen Pendleton [facility] Unavailable + [phone] Cole George Unavailable Fletcher Russell Unavailable Unavailable Bautista Casey MD Unavailable DemetriusJasmyn wright [facility] Unavailable [phone] Vika Kevin APRN [facility] Primary Care Prov ider Vika Kevin APRN [facility] Primary Care Prov ider Yasmeen Pendleton [facility] Unavailable + [phone] Vika Kevin APRN [facility] Primary Care Prov ider Encounter Details Date Type Department Care Team (Late st Contact Info) Description 01/05/2014 My[facility] Medical Advice [address] [address] Mary Cha LPN Social History [...] on file Legal 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 STAMP MAKER Gender Identity Not on file Sexual [...] Out COVID-19 12/04/2020 12/04/2020 12/05/2020 6:04 PM STAMP MAKER documented as of this encounter Care Teams Audiology Director Relationship Specialty Start Date End Date Andrew Lu MD XXX RETIRED XXX [address] [place] [address] PCP - General 12/10/01 01/10/14 Niko Resendiz MD [address] [place] [address] PCP - General Internal Medicine 01/11/14 01/29/14 Carlie Mac MD [address] [place] [address] PCP - General Pediatrics 01/30/14 07/17/15 Angella Mendieta MD [address] [place] [address] PCP - General Family Practice 07/18/15 09/11/15 Julito Banuelos MD [address] [place] [address] PCP - General Family Practice 09/12/15 09/23/21 Julito Banuelos MD [address] [place] [address] PCP - Assigned PCP 02/17/16 12/28/18 Vika Kevin APRN JUNIOR NETWORK ADMINISTRATOR [address] [place] [address] PCP - General Nurse Practitioner - Family 09/24/21 03/05/22 Vika Kevin APRN JUNIOR NETWORK ADMINISTRATOR [address] [place] [address] PCP - General Nurse Practitioner - Family 03/18/22 06/18/22 Vika Kevin APRN JUNIOR NETWORK ADMINISTRATOR [address] [place] [address] [phone] PCP - General Nurse Practitioner - Family 07/24/22 Julito Banuelos MD [address] [place] [address] 768332 Assigned PCP 02/17/16 07/21/[address] [place] [address] Filtration Supervisor Dietitian, Registered 04/14/19 Mary Kay Jones, [facility] Pharmacist 08/01/19 04/20/20 [facility] [address] [place] [address] 812 [place], [place] 9[address] Pharmacist Pharmacist 08/08/19 04/15/21 [facility] [address] [place], [place] [phone] Pharmacist Pharmacist 06/25/20 04/15/21 Vika Kevin APRN JUNIOR NETWORK ADMINISTRATOR [address] [place] [address] [phone] Assigned PCP 07/22/20 11/16/24 Marilyn Willard MD [address] [place] [address] [address] [place] [address] Assigned Surgical Provider 08/17/20 08/16/24 Carie Varela DO [address] [place], [place] 1547[address] Assigned Heart and Vascular Provider 08/17/20 01/19/21 Maylin May NP [address] [place] [address] Assigned Pediatric Specialist Provider 12/16/20 06/13/22 Marisa Rordigues, RN Clinic Analysis Analyst 01/15/21 02/26/21 Vilma Long MD [address] [place] [address] Assigned Heart and Vascular Provider 01/20/21 07/20/21 Yasmeen Pendleton [facility] [address] [place] [address] Pharmacist Pharmacist 06/04/21 01/15/22 Cole George LISW Lead Analysis Analyst 06/13/21 10/07/21 Fletcher Up Community Health Worker 06/13/21 09/12/21 Bautista Casey MD [address] [place] [address] Assigned Heart and Vascular Provider 07/21/21 01/16/23 Jasmyn Oliver CHW Community Health Worker 09/13/21 10/07/21 Yasmeen Pendleton [facility] [address] [place] [address] [phone] Assigned MTM Pharmacist 03/22/22 01/02/23 documented as of this encounter
--- OUTSIDE RECORDS SUMMARY | 2025-04-13 17:31 | XMS_ITS | Encounter Summary ---
Author Organization [place] Address [address] [place] [address] Care Team Providers Care Sole Stainer Name Role Phone Julito Banuelos MD Primary Care Provider [phone] Julito Banuelos MD Unavailable Aleshia Henriquez RD Unavailable Unavailable Susannah Blankenship [facility] Unavailable [phone] Carolyn Huynh [facility] Unavailable [phone] Vika Kevin APRN RN MEDICAL SURGICAL Unavailable + Marilyn Willard MD Unavailable +[phone] Carie Varela DO Unavailable [phone] Maylin May NP Unavailable [phone] Marisa Hernandez RN Unavailable Unavailable Vilma Long MD Unavailable + [phone] Yasmeen Pendleton [facility] Unavailable Cole George Unavailable Fletcher Russell Unavailable Unavailable Bautista Casey MD Unavailable [phone] Jasmyn Oliver Unavailable +[phone] Vika Kevin APRN RN MEDICAL SURGICAL Primary Care Prov ider Vika Kevin APRN [facility] Primary Care Prov ider Yasmeen Pendleton [facility] Unavailable + [phone] Vika Kevin APRN [facility] Primary Care [facility] ider Reason for Visit * Reason Comments Medication Refill Encounter Details Date Type Department Care Team (Late st Contact Info) Description 06/26/[address] [address] [place] [address] [place] [address] Medication Refill Social History Tobacco Use [...] on file Legal 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 CROSS COUNTRY AND TRACK AND FIELD COACH Gender Identity Not on file Sexual [...] per RN protocol Leslye Steiner RN, BSN [place] Triage * Telephone Encounter - Maylin Diaz - 06/26/2020 9:18 AM CDT Patient's calling already to see if this can be done today. Advised of the refill policy. Francisca Diaz, Therapy Administrative Assistant documented in this encounter Plan of Treatment Not on file documented as of this encounter Visit Diagnoses Diagnosis Environmental allergies Allergic rhinitis, cause unspecified documented in this encounter Additional Health Concerns Infection Onset Date Last Indicated Resolved Time Rule Out COVID-19 07/25/2020 07/25/2020 07/26/2020 3:02 PM CDT Rule Out COVID-19 12/04/2020 12/04/2020 12/05/2020 6:04 PM CROSS COUNTRY AND TRACK AND FIELD COACH Assessment Noted Time PHQ-9 Depression Total Score: 12 020 3:35 PM CDT documented as of this encounter Care Teams Sole Stainer Relationship Specialty Start Date End Date Julito Banuelos MD [address] [place] [address] PCP - General Family Practice 09/12/15 09/23/21 Vika Kevin APRN RN MEDICAL SURGICAL [address] [place] [address] PCP - General Nurse Practitioner - Family 09/24/21 03/05/22 Vika Kevin APRN RN MEDICAL SURGICAL [address] [place] [address] PCP - General Nurse Practitioner - Family 03/18/22 06/18/22 Vika Kevin APRN RN MEDICAL SURGICAL [address] [place] [address] PCP - General Nurse Practitioner - Family 07/24/22 Julito Banuelos MD [address] [place] [address] Assigned PCP 02/17/16 07/21/[address] [place] [address] Nurse Rn Bsn Dietitian, Registered 04/14/19 Susannah Blankenship, [facility] [address] [facility] [address] [place] [address] Pharmacist Pharmacist 08/08/19 04/15/21 Carolyn Huynh, [facility] [address] [place] [address] Pharmacist Pharmacist 06/25/20 04/15/21 Vika Kevin APRN RN MEDICAL SURGICAL [address] [place] [address] 223312 Assigned PCP 07/22/20 11/16/24 Marilyn Willard MD [address] [facility] [address] [place], [place] 146595 Assigned Surgical Provider 08/17/20 08/16/24 Carie Varela DO [address] [place] 330485 Assigned Heart and Vascular Provider 08/17/20 01/19/21 Maylin May NP [address] [place] [address] Assigned Pediatric Specialist Provider 12/16/20 06/13/22 Marisa Rodrigues, RN Clinic Spring [place]ger 01/15/21 02/26/21 Vilma Long MD [address] [place] 984435 Assigned Heart and Vascular Provider 01/20/21 07/20/21 Yasmeen Pendleton [facility] 9 [place], [place] [address] Pharmacist Pharmacist 06/04/21 01/15/22 Cole George LISW Lead Spring Forger 06/13/21 10/07/21 Fletcher Up Community Health Worker 06/13/21 09/12/21 Bautista Casey MD [address] [place], [place] [address] Assigned Heart and Vascular Provider 07/21/21 01/16/23 Jasmyn Oliver CHW Community Health Worker 09/13/21 10/07/21 Yasmeen Pendleton [facility] [address] [place] [address] Assigned MTM Pharmacist 03/22/22 01/02/23 documented as of this encounter
--- OUTSIDE RECORDS SUMMARY | 2025-04-13 17:32 | XMS_ITS | Encounter Summary ---
Author Organization [place] Address [address] [facility] [place] [address] Care Team Providers Care Supervisor Specialty Plant Name Role Phone Carlie Wang MD Primary Care Provide r Angella Mendieta MD Primary Care Provider Julito Banuelos MD Primary Care Provider Julito Banuelos MD Unavailable Julito Banuelos MD Unavailable Aleshia Henriquez RD Unavailable Unavailable Mary Kay Jones [facility] Unavailable Unavailable Susannah Blankenship [facility] Unavailable Carolyn Huynh [facility] Unavailable [phone] Vika Kevin APRN SHAKER OPERATOR Unavailable + Marilyn Willard MD Unavailable Carie Varela DO Unavailable Maylin May NP Unavailable [phone] Marisa Hernandez RN Unavailable Unavailable Vilma Long MD Unavailable Yasmeen Pendleton [facility] Unavailable Cole George Unavailable Fletcher Russell Unavailable Unavailable Ip, Bautista Bell MD Unavailable [phone] Jasmyn Oliver [facility] Unavailable [phone] Vika Kevin APRN [facility] Primary Care Prov ider Vika Kevin APRN [facility] Primary Care Prov ider Yasmeen Pendleton [facility] Unavailable + [phone] Vika Kevin APRN [facility] Primary Care Prov ider Encounter Details Date Type Department Care Team (Late st Contact Info) Description 03/10/2014 Office Visit-[facility] Heart [address] [place] [address] Jaimee Donald MD HEART [place] [id number] Social History Tobacco Use Types Packs/Day Years Used Date Smoking Tobacco: Former Cigarettes 0.3 15 0 10/26/1961 - 10/26/1976 Smokeless Tobacco: Never Alcohol Use Standard Drinks/Week Comments Yes 0 (1 standard drink = 0.6 oz pur e alcohol) 1-2 glasses of wine weekly Comments No Sex and Gender Information Value Date Recorded Sex Assigned at Not on file Legal 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 HOSPICE CLINICAL MARKETER Gender Identity Not on file Sexual Orientation Not on file Occupation Industry Job Start Date Job End Date Not on file Not on file Not on file Not on file documented as of this encounter Progress Notes * Jaimee Donald MD - 03/13/2014 3:02 PM CDT Progress Note Created by: Jaimee Donald M.D. [id number] DATE: 03/10/2014 MARIALUISA COSBY DATE OF : 1940 AGE: [age] years old Referring Physician: CARLIE WANG Referring Clinic: [facility] CURRENT DIAGNOSES 1. 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 - Hyperlipidemia mixed, 272.2 3. - Hypertension, 401.1 4. - CAD, 414.00 5. Palpitations, 785.1 ALLERGIES lisinopril Nitrofurantoin Nitrofurantoin Macrocrystal pramipexole Di-HCl Sulfasalazine tolterodine tartrate zolpidem tartrate MEDICATIONS (prior to changes made today) 1. Asmanex Twisthaler 220 mcg (120 doses) Aerosol Powdr [facility] ActivIn, Take as Directed 2. aspirin, buffered [...] daily 10. Nasacort AQ 55 mcg Aerosol, [place], Take as Directed 11. Plavix 75 mg [...] artery disease having had a non-ST elevation [place] in [place] in December 2012with PCI to the proximal mid circumflex. Apparently the insurance administrator recommended lifelong Plavix. She has hypertension, diabetes [...] Leg syndrome Past Cardiac Illnesses: CAD, s/p [place] Surgeries/Procedures - General: hysterectomy, tonsillectomy Cardiac/Vasc Procedures-Invasive: left heart cath 12/2012 ([place]) Cardiology Procedures-NonInvasive: echocardiogram Jun 2007, myocardial perfusion (Nuc) Jun 2007, echo 12/2012 ([place]), stress echo February 2013 Cardiac Cath Results: [...] - lives with ; Place of - [place]; REVIEW OF SYSTEMS GENERAL feeling spacey lately [...] Out COVID-19 12/04/2020 12/04/2020 12/05/2020 6:04 PM HOSPICE CLINICAL MARKETER documented as of this encounter Care Teams Supervisor Specialty Plant Relationship Specialty Start Date End Date Carlie Wang MD [address] [place] [address] PCP - General Pediatrics 01/30/14 07/17/15 Angella Mendieta MD [address] [place] [address] [phone] PCP - General Family Practice 07/18/15 09/11/15 Julito Banuelos MD [address] [place] [address] 36936 PCP - General Family Practice 09/12/15 09/23/21 Julito Banuelos MD [address] [place] [address] 38097 PCP - Assigned PCP 02/17/16 12/28/18 Vika Kevin APRN SHAKER OPERATOR [address] [place] [address] [phone] PCP - General Nurse Practitioner - Family 09/24/21 03/05/22 Vika Kevin APRN SHAKER OPERATOR [address] [place] [address] 60858 PCP - General Nurse Practitioner - Family 03/18/22 06/18/22 Vika Kevin APRN SHAKER OPERATOR [address] [place] [address] [phone] PCP - General Nurse Practitioner - Family 07/24/22 Julito Banuelos MD [address] [place] [address] [phone] Assigned PCP 02/17/16 07/21/[address] [place] [address]703 Operating Room Orderly Dietitian, Registered 04/14/19 Mary Kay Jones, [facility] Pharmacist 08/01/19 04/20/20 Susannah Blankenship, [facility] [address] [place] [address] [address] [place], [place] [phone] Pharmacist Pharmacist 08/08/19 04/15/21 Carolyn Huynh [facility] [address] [place], [place] [phone] Pharmacist Pharmacist 06/25/20 04/15/21 Vika Kevin APRN SHAKER OPERATOR [address] [place] [address] [phone] Assigned PCP 07/22/20 11/16/24 Marilyn Willard MD [address] [address] Assigned Surgical Provider 08/17/20 08/16/24 Carie Varela DO [address] [place] [address] Assigned Heart and Vascular Provider 08/17/20 01/19/21 Maylin May, JENNY [address] [place] [address] Assigned Pediatric Specialist Provider 12/16/20 06/13/22 Marisa Rodrigues, RN Clinic Language Tutor 01/15/21 02/26/21 Vilma Long MD [address] [place] [address] Assigned Heart and Vascular Provider 01/20/21 07/20/21 Yasmeen Pendleton [facility] [address] [place] [address] [phone] Pharmacist Pharmacist 06/04/21 01/15/22 Cole George LISW Lead Language Tutor 06/13/21 10/07/21 Fletcher Up Community Health Worker 06/13/21 09/12/21 Bautista Casey MD [address] [place] [address] Assigned Heart and Vascular Provider 07/21/21 01/16/23 Jasmyn Oliver CHW Community Health Worker 09/13/21 10/07/21 Yasmeen Pendleton [facility] [address] [place] [address] Assigned MTM Pharmacist 03/22/22 01/02/23 documented as of this encounter
--- OUTSIDE RECORDS SUMMARY | 2025-04-13 17:32 | XMS_ITS | Encounter Summary ---
Author Organization [facility] Address [address] [place] [address] Care Team Providers Care President [place] Name Role Phone Andrew Lu MD Primary Care Provider [phone] Niko Resendiz MD Primary Care Provider Carlie Mac MD Primary Care Provide r Angella Mendieta MD Primary Care Provider Julito Banuelos MD Primary Care Provider [phone] Julito Banuelos MD Unavailable Julito Banuelos MD Unavailable Aleshia Henriquez RD Unavailable Unavailable Mary Kay Jones [facility] Unavailable Unavailable Susannah Blankenship [facility] Unavailable [phone] Carolyn Huynh [facility] Unavailable [phone] Vika Kevin APRN AIR TURNING MACHINE FEEDER Unavailable + Marilyn Willard MD Unavailable [phone] Carie Varela DO Unavailable [phone] Maylin May NP Unavailable [phone] Marisa Rodrigues RN Unavailable Unavailable Vilma Long MD Unavailable + [phone] Yasmeen Pendleton [facility] Unavailable + [phone] Cole George Unavailable Fletcher Russell Unavailable Unavailable Bautista Casey MD Unavailable DemetriusJasmyn wright [facility] Unavailable [phone] Vika [facility] Primary Care Prov ider Vika Kevin APRN [facility] Primary Care Prov ider Yasmeen Pendleton [facility] Unavailable [phone] Vika Kevin [facility] Primary Care Prov ider Reason for Visit * Reason Onset Date Comments UTI 08/24/2013 Encounter Details Date Type Department Care Team (Late st Contact Info) Description 08/24/2013 MyC Medical Advice [address] [address] Andrew Lu MD XXX RETIRED XXX [address] [place] [address] UTI Social History Tobacco Use Types [...] on file Legal 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 WELD TECHNICIAN Gender Identity Not on file Sexual [...] Out COVID-19 12/04/2020 12/04/2020 12/05/2020 6:04 PM WELD TECHNICIAN documented as of this encounter Care Teams President [place] Relationship Specialty Start Date End Date Andrew Lu MD XXX RETIRED XXX [address] [place] [phone] PCP - General 12/10/01 01/10/14 Niko Resendiz MD [address] [place] [address] PCP - General Internal Medicine 01/11/14 01/29/14 Carlie Mac MD [address] [place] [address] PCP - General Pediatrics 01/30/14 07/17/15 Angella Mendieta MD [address] [place] [address] PCP - General Family Practice 07/18/15 09/11/15 Julito Banuelos MD [address] [place] [address] PCP - General Family Practice 09/12/15 09/23/21 Julito Banuelos MD [address] [place] [address] PCP - Assigned PCP 02/17/16 12/28/18 Vika Kevin APRN AIR TURNING MACHINE FEEDER [address] [place] [address] PCP - General Nurse Practitioner - Family 09/24/21 03/05/22 Vika Kevin APRN AIR TURNING MACHINE FEEDER [address] [place] [address] PCP - General Nurse Practitioner - Family 03/18/22 06/18/22 Vika Kevin APRN AIR TURNING MACHINE FEEDER [address] [place] [address] [phone] PCP - General Nurse Practitioner - Family 07/24/22 Julito Banuelos MD [address] [place] [address] [phone] Assigned PCP 02/17/16 07/21/[address] [place] [address] Ecmo Specialist Dietitian, Registered 04/14/19 Mary Kay Jones, [facility] Pharmacist 08/01/19 04/20/20 Susannah Blankenship, [facility] [address] [place] [address] [address] [place], [place] 585125 Pharmacist Pharmacist 08/08/19 04/15/21 Carolyn Huynh, [facility] [address] [place], [place] [address] Pharmacist Pharmacist 06/25/20 04/15/21 Vika Kevin APRN AIR TURNING MACHINE FEEDER [address] [place] [address] [phone] Assigned PCP 07/22/20 11/16/24 Marilyn Willard MD [address] [place] [address] [address] [place], [place] [id number] Assigned Surgical Provider 08/17/20 08/16/24 Carie Varela DO [address] [place] [address] Assigned Heart and Vascular Provider 08/17/20 01/19/21 Maylin May NP [address] [place] [address] Assigned Pediatric Specialist Provider 12/16/20 06/13/22 Marisa Rodrigues, RN Clinic Student Development Coordinator 01/15/21 02/26/21 Vilma Long MD [address] [place] [address] Assigned Heart and Vascular Provider 01/20/21 07/20/21 Yasmeen Pendleton [facility] [address] [place] [address] [phone] Pharmacist Pharmacist 06/04/21 01/15/22 Cole George LISW Lead Student Development Coordinator 06/13/21 10/07/21 Fletcher Up Community Health Worker 06/13/21 09/12/21 Bautista Casey MD [address] [place] [address] Assigned Heart and Vascular Provider 07/21/21 01/16/23 Jasmyn Oliver CHW Community Health Worker 09/13/21 10/07/21 Yasmeen Pendleton [facility] [address] [place] [address] [phone] Assigned MTM Pharmacist 03/22/22 01/02/23 documented as of this encounter
--- OUTSIDE RECORDS SUMMARY | 2025-04-13 17:32 | XMS_ITS | Encounter Summary ---
Author Organization [place] Address [address] [facility] [place] [address] Care Team Providers Care Analytics Leader Name Role Phone Andrew Lu MD Primary Care Provider [phone] Niko Resendiz MD Primary Care Provider Carlie Mac MD Primary Care Provide r Angella Mendieta MD Primary Care Provider Julito Banuelos MD Primary Care Provider [phone] Julito Banuelos MD Unavailable Julito Banuelos MD Unavailable Aleshia Henriquez RD Unavailable Unavailable Mary Kay Jones [facility] Unavailable Unavailable Susannah Blankenship [facility] Unavailable [phone] Carolyn Huynh [facility] Unavailable [phone] Vika Kevin APRN MARKETING INTELLIGENCE MANAGER Unavailable + Marilyn Willard MD Unavailable [phone] Carie Varela DO Unavailable [phone] Maylin May NP Unavailable [phone] Marisa Rodrigues RN Unavailable Unavailable Vilma Long MD Unavailable + [phone] Yasmeen Pendleton [facility] Unavailable [phone] Cole George Unavailable Fletcher Russell Unavailable Unavailable Bautista Casey MD Unavailable DemetriusJasmyn wright [facility] Unavailable [phone] Vika Kevin APRN [facility] Primary Care Prov ider Vika Kevin APRN [facility] Primary Care Prov ider Yasmeen Pendleton [facility] Unavailable Vika [facility] Primary Care Prov ider Encounter Details Date Type Department Care Team (Latest Contact Info) Description 07/08/2013 Medical Correspondence [address] [phone] Andrew Lu MD XXX RETIRED XXX [address] [phone] [facility] 07/08/13 Social History [...] file Legal 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 VISUAL DEVELOPER Gender Identity Not on file Sexual [...] COVID-19 12/04/2020 12/04/2020 12/05/2020 6:04 PM VISUAL DEVELOPER documented as of this encounter Care Teams Analytics Leader Relationship Specialty Start Date End Date Andrew Lu MD XXX RETIRED XXX [address] [place] [phone] PCP - General 12/10/01 01/10/14 Niko Resendiz MD [address] [place] [address] PCP - General Internal Medicine 01/11/14 01/29/14 Carlie Mac MD [address] [place] [address] PCP - General Pediatrics 01/30/14 07/17/15 Angella Mendieta MD [address] [place] [address] PCP - General Family Practice 07/18/15 09/11/15 Julito Banuelos MD [address] [place] [address] PCP - General Family Practice 09/12/15 09/23/21 Julito Banuelos MD [address] [place] [address] PCP - Assigned PCP 02/17/16 12/28/18 Vika Kevin APRN CNP [address] [place] [address] PCP - General Nurse Practitioner - Family 09/24/21 03/05/22 Vika Kevin APRN MARKETING INTELLIGENCE MANAGER [address] [place] [address] PCP - General Nurse Practitioner - Family 03/18/22 06/18/22 Vika Kevin APRN MARKETING INTELLIGENCE MANAGER [address] [place] [address] PCP - General Nurse Practitioner - Family 07/24/22 Julito Banuelos MD [address] [place] [address] [phone] Assigned PCP 02/17/16 07/21/[address] [place] [address] Sales Driver Dietitian, Registered 04/14/19 Mary Kay Jones [facility] Pharmacist 08/01/19 04/20/20 Susannah Blankenship, [facility] [address] [place] [address] 8[address] [place], [place] 208505 Pharmacist Pharmacist 08/08/19 04/15/21 Carolyn Huynh, [facility] [address] [place] [address] Pharmacist Pharmacist 06/25/20 04/15/21 Vika Kevin, JAIME MARKETING INTELLIGENCE MANAGER [address] [place] [address] 324502 Assigned PCP 07/22/20 11/16/24 Marilyn Willard MD [address] [facility] [address] [place], [place] [address] Assigned Surgical Provider 08/17/20 08/16/24 Carie Varela DO [address] [place] [address] Assigned Heart and Vascular Provider 08/17/20 01/19/21 Maylin May NP [address] [place] [address] Assigned Pediatric Specialist Provider 12/16/20 06/13/22 Marisa Rodrigues, RN Clinic Incident Response Engineer 01/15/21 02/26/21 Vilma Long MD [address] [place] [address] Assigned Heart and Vascular Provider 01/20/21 07/20/21 Yasmeen Pendleton [facility] [address] [place] [address] [phone] Pharmacist Pharmacist 06/04/21 01/15/22 Cole George LISW Lead Incident Response Engineer 06/13/21 10/07/21 Fletcher Up Community Health Worker 06/13/21 09/12/21 Bautista Casey MD [address] [place] [address] Assigned Heart and Vascular Provider 07/21/21 01/16/23 Jasmyn Oliver CHW Community Health Worker 09/13/21 10/07/21 Yasmeen Pendleton [facility] [address] [place] [address] Assigned MTM Pharmacist 03/22/22 01/02/23 documented as of this encounter
--- OUTSIDE RECORDS SUMMARY | 2025-04-13 17:32 | XMS_ITS | Clinical Summary ---
Author Organization [place] Address [address] [facility] [place] [address] Care Team Providers Care Retention Specialist Name Role Phone Aleshia Henriquez RD Unavailable Unavailable Vika Kevin APRN BR[facility] Primary Care Prov ider Allergies Active Allergy Reactions Criticality Noted Date Comments Cefdinir Rash Low 03/22/2019 Cephalexin Itching Low 09/04/2015 Nitrofurantoin Rash Low 05/09/2015 Rash Sulfamethoxazole Hives 01/19/2003 Medications aspirin 81 MG EC tabletIndication s:Coronary artery disease involving [place] coronary artery of [place] heart without angina pectoris,Type 2 diabetes mellitus [...] 24 hr tabletIndication s:Coronary artery disease involving [place] coronary artery of [place] heart without angina pectoris Take 1 tablet [...] 20 MG tabletIndication s:Coronary artery disease involving [place] coronary artery of [place] heart without angina pectoris Take 1 tablet (20 mg) by mouth daily 90 tablet 3 2 Active estradiol (ESTRACE) 0.1 MG/GM vaginal creamIndications :Frequent UTI large blueberry size amount in the vagina nightly three times a week at night 42.5 g 3 2 Active fluticasone (FLONASE) 50 MCG/ACT nasal sprayIndications :Environmental allergies [place] 2 sprays into both nostrils daily as needed for rhinitis or allergies 48 g 3 2 Active saline 0.65 % SOLN [place] 1 spray in nostril 3 times daily [...] clinic. 03/31/2012 Coronary artery disease invo lving point hope ira coronary artery without angina pectoris 08/24/2015 Multiple [...] found in bladder incidentally 05/2013 Atherosclerosis of [place] co ronary artery of [place] heart with angina pectoris 12/27/2012 Overview (07/30/2019): [...] in adult, unspecified obesity type 01/14/2019 06/19/20 ID (myocardial infarction) 0 06/19/2021 DM (diabetes mellitus) 06/19 Immunizations Immunization Administration Dates Next Due COVID-19 Monovalent 18+ (Moderna) 2021,06/19/2021,12/25/2020,2020 Influenza (High Dose) Trival ent,PF (Fluzone) 07/06/2019,07/01/2018,06/25/2017,2015,07/18/2015,07/14/2014,08/15/2013 Influenza (IIV3) PF 07/26/2012,08/21/2005,2003 Influenza Vaccine 65+ (Fluzone HD) 08/19/2021, Pneumo Conj 13-V (2010&after) 04/11/2016 Pneumococcal 23 valent 06/25/2017,04/01/2005, TD,PF 7+ (Tenivac) 03/15/2018, 6,04/01/2005,1994 TDAP Vaccine (Adacel) 03/04/2013 Zoster recombinant adjuvante d (Shingrix) 01/05/2020,09/14/2019 Zoster vaccine, live 10/26/2007 Family History [...] in a detention (including now)? 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 on file Not on file Last Filed Vital Signs Vital Sign Reading Time Taken Comments Blood Pressure 126/62 09/25/2021 12:08 PM PROCESS VALIDATION ENGINEER Pulse 102 09/25/2021 12:08 PM PROCESS VALIDATION ENGINEER Temperature 36.8 C (98.2 F) 09/25/2021 12:08 PM PROCESS VALIDATION ENGINEER Respiratory Rate 16 06/19/2021 3:30 PM CDT Oxygen Saturation 94% 09/25/2021 12:08 PM PROCESS VALIDATION ENGINEER Inhaled Oxygen Concentration - - Weight 81.6 [...] 07/12/2021, 11/2020, 03/11/2021, Additional history exists COVID-19 VACCINE ( season) 2024 03/03/2022, 06/19/2021, 12/25/2020, Additional history exists INFLUENZA VACCINE (Season Ended) 2025 08/19/2021, 07/06/2020, 07/06/2019, Additional history exists ADVANCE CARE PLANNING 07/12/2026 07/12/2021 , 07/24/2020, 04/01/2012 DTAP/TDAP/TD VACCINE (3 - Td or Tdap) 03/15/2028 03/15/2018, 03/04/2013, 09/20/2006, Additional history exists DEXA 11/02/2030 11/02/2015, 08/28, 09/24/2011, Additional history exists SPIROMETRY Completed 03/13/2011 FIT Discontinued 04/16/2016, 09/18/2014 COLONOSCOPY Discontinued 05/02/2016, 07/30/2004 COLORECTAL CANCER SCREENING Discontinued PNEUMOCOCCAL VACCINE 50+ YEARS Completed 06/25/2017, 04/11/2016, 04/01/2005, Additional history exists MAMMO SCREENING Discontinued 04/15/2018, 03/26, 03/10/2017, Additional history exists DEPRESSION ACTION PLAN Completed 8, 05/27/2017, 05/27/2017, Additional history exists ZOSTER VACCINE Completed 01/05/2020, 08/27, 10/26/2007 COPD ACTION PLAN Completed 04/26/2021 URINALYSIS Completed 09/23/2021, 05/27, 04/23/2021, Additional history exists CT COLONOGRAPHY Discontinued FLEX SIG Discontinued HPV VACCINE Aged Out No longer eligi ble based on patient's age to complete this topic MENINGITIS VACCINE Aged Out No longer eligible based on patient's age to complete this topic sDNA (Cologuard) Discontinued Medical Devices Implanted Type Area Lathe Machine Operator Device Identifier Shelf Expiration Date Model / Serial / Lot Imp Plate Syn 10/28 Tubular 85mm 07h Ss 241.37 Implanted:Qty : 1 on 01/12/2021 by Rom Martell MD at [facility] Metallic Hardware/Anc hor Right: Ankle SYNTHES-STRATEC 241.37 / / [id number] Imp Scr Syn Cortex 3.5x16mm Self Tap Ss 204.816 Implanted:Qty : 3 on 01/12/2021 by Rom Martell MD at [facility] Metallic Hardware/Anc hor Right: Ankle SYNTHES-STRATEC 204.816 / / [id number] Imp Scr Syn Can 4.0x14mm Ft Ss 206.014 Implanted:Qty : 1 on 01/12/2021 by Rom Martell MD at [facility] Metallic Hardware/Anc hor Right: Ankle SYNTHES-STRATEC 206.014 / / [id number] Imp Scr Syn Can 4.0x16mm Ft Ss 206.016 Implanted:Qty : 2 on 01/12/2021 by Rom Martell MD at [facility] Metallic Hardware/Anc hor Right: Ankle SYNTHES-STRATEC 206.016 / / [id number] Imp Scr Syn Can 4.0x50mm Ft Ss 206.050 Implanted:Qty : 1 on 01/12/2021 by Rom Martell MD at [facility] Metallic Hardware/Anc hor Right: Ankle SYNTHES-STRATEC 206.050 / / [id number] Procedures Procedure Name Priority Date/Time Associated Diagnosis Comments UA MACROSCOPIC WITH REFLEX TO MICRO AND CULTURE Routine 09/23/2021 3:09 PM PROCESS VALIDATION ENGINEER Urinary tract infection Cor[place] catheter in place [...] RANDOM URINE QUANTITATIVE Routine 08/28/2020 3:27 PM PROCESS VALIDATION ENGINEER Hypertension goal BP (blood pressure) < 140/90 [...] DEXA - HIM SCAN 11/02/2015 12:00 AM PROCESS VALIDATION ENGINEER EYE EXAM - HIM SCAN Routine 09/25/2014 HC SPIROMETRY, BREATH CAPACITY Routine 03/13/2011 ASTHMA - MODERATE PERSISTENT from Last 3 Months or Most Recently Relevant to Health Maintenance Results * (ABNORMAL) UA reflex to Microscopic and Culture (09/23/2021 3:09 PM PROCESS VALIDATION ENGINEER) Color Urine Yellow Colorless, Straw, Light Yellow, Yellow 09/23/2021 3:13 PM PROCESS VALIDATION ENGINEER [facility] Appearance Urine Clear Clear 09/23/20 3:13 PM PROCESS VALIDATION ENGINEER [facility] Glucose Urine Negative Negative mg/dL 09/23/2021 3:13 PM PROCESS VALIDATION ENGINEER [facility] Bilirubin Urine Negative Negative 3:13 PM PROCESS VALIDATION ENGINEER [facility] Ketones Urine Negative Negative mg/dL 09/23/2021 3:13 PM PROCESS VALIDATION ENGINEER [facility] Specific [place] Urine 1.020 1.003 - 1.035 09/23/2021 3:13 PM PROCESS VALIDATION ENGINEER [facility] Blood Urine Trace(A) Negative 09/23/2021 3:13 PM PROCESS VALIDATION ENGINEER [facility] pH Urine 6.0 5.0 - 7.0 09/23/2021 3:13 PM PROCESS VALIDATION ENGINEER [facility] Protein Albumin Urine 30(A) Negative mg/dL 09/23/2021 3:13 PM PROCESS VALIDATION ENGINEER [facility] Urobilinogen Urine 0.2 0.2, 1.0 E.U./dL 09/23/2021 3:13 PM PROCESS VALIDATION ENGINEER [facility] Nitrite Urine Positive(A) Negative 09/23/2021 3:13 PM PROCESS VALIDATION ENGINEER [facility] Leukocyte Esterase Urine Moderate(A) Negative 09/23/2021 3:13 PM PROCESS VALIDATION ENGINEER [facility] Urine URINE SPECIMEN OBTAINED VIA INDWELLING URINARY CATHETER / Unknown Non-blood Collection / Unknown 09/23/2021 3:09 PM PROCESS VALIDATION ENGINEER 09/23/2021 3:09 PM PROCESS VALIDATION ENGINEER us Julito Banuelos MD LAB - URINE ORDERABLES Final Res ult [facility] [address] [place] [address] [facility], 1st floor of clinic) [place] [id number], [facility] [phone] * (ABNORMAL) Comprehensive metabolic panel (BMP + [...] 9:45 AM CDT 07/12/2021 9:45 AM CDT us Vika Kevin LAND MOBILE RADIO TECHNICIAN BRUSH [facility] LAB - BLOOD ORDERA BLES Final Result LABORATORY [facility] [address] Lab (no room number, 1st floor of clinic) [place] [address], [facility] [phone] * TSH with free T4 reflex (04/26/2021 12:18 PM CDT) TSH 1.56 0.40 - 4.00 mU/L 04/28/2021 10:28 AM CDT [facility] Blood 04/26/2021 12:1 8 PM CDT 04/26/2021 12:19 PM CDT us Vika Kevin APRN, CNP LAB - BLOOD ORDERA BLES Final Result Performing Organization Address City/[facility]/ZIP Co de Phone Number [facility] [address] [place] [address] * Hemoglobin A1c (04/26/2021 12:18 PM CDT) Hemoglobin A1C 5.5 0 - 5.6 % 04/26/2021 12:54 PM CDT [facility] Comment: Normal <5.7% Prediabetes 5.7-6.4% Diabetes 6.5% or higher - adopted from ADA consensus guidelines. Blood 04/26/2021 12:1 8 PM CDT 04/26/2021 12:19 PM CDT us Vika Kevin APRN, CNP LAB - BLOOD ORDERA BLES Final Result Performing Organization Address [facility] Co de Phone Number [facility] [address] [place] [address] * (ABNORMAL) Albumin Random Urine Quantitative with Creat Ratio (08/28/2020 3:27 PM PROCESS VALIDATION ENGINEER) Creatinine Urine 121 mg/dL 08/29/2020 5:22 PM PROCESS VALIDATION ENGINEER [facility] Albumin Urine mg/L 121 mg/L 08/29/2020 6:46 PM PROCESS VALIDATION ENGINEER [facility] Albumin Urine mg/g Cr 100.00(H) 0 - 25 mg/g Cr 08/29/2020 6:46 PM PROCESS VALIDATION ENGINEER [facility] Urine specimen (specimen) 08/28/2020 3:27 PM PROCESS VALIDATION ENGINEER 08/28/2020 3:28 PM PROCESS VALIDATION ENGINEER us Vika Kevin APRN, CNP LAB - URINE ORDERA BLES Final Result Performing Organization Address City/[facility]/ZIP Co de Phone Number [facility] [address] [place] [phone] * (ABNORMAL) Lipid panel reflex to direct LDL Fasting (07/20/2020 11:48 AM CDT) Cholesterol 103 <200 mg/dL 07/20/2020 6:34 PM CDT [facility] Triglycerides 118 <150 mg/dL 07/20/2020 6:33 PM CDT [facility] HDL Cholesterol 41(L) >49 mg/dL 0 6:39 PM CDT [facility] LDL Cholesterol Calculated 38 <100 mg/dL 07/20/2020 6:39 PM CDT [facility] Comment:Desirable: <100 mg/d l Non HDL Cholesterol 62 <130 mg/dL 07/20/2020 6:39 PM CDT [facility] Blood specimen (specimen) 07/20/2020 11:48 AM CDT 07/20/2020 11:50 AM CDT us Braeden Sow MD LAB - BLOOD ORDERABLES Final Result [facility] [address] [place] [address] * MA Diagnostic Right w/Jefry (04/15/2018 9:55 [...] Mammography. SHAILESH NICHOLAS MD Julito Banuelos MD IMG MAMMOGRAPHY ORDERABLES Final Result * Foot Exam - HIM Scan (02/25/2018) Narrative Steff Fernandes - 02/25/2018 SEE PROGRESS NOTE [facility]NA[facility] FOOT AND ANKLE us Provider Outside OTHER Final Result * COLONOSCOPY (05/02/2016 7:39 AM CDT) Pathologist [facility] Patient Name: Marialuisa Cosby Procedure Date: 05/02/2016 [...] and oxygen saturations were monitored continuously. The [id number] was introduced through the anus and advanced [...] pathology results. Procedure Code(s): --- Professional --- 93999, Colonoscopy, flexible, proximal to splenic flexure; with removal of tumor(s), polyp(s), or other lesion(s) by snare technique [id number], Colonoscopy, flexible, proximal to splenic flexure; with directed submucosal injection(s), any substance CPT copyright 2013 [employer]. All rights reserved. The codes documented in this report are preliminary and upon senior telecommunications engineer review may be revised to meet current [...] AM RADIOLOGY RESULTS 05/02/2016 7:39 AM CDT Julito Banuelos MD PROCEDURES Final Result RADIOLOGY RESULTS * (ABNORMAL) Fecal colorectal cancer screen (FIT) (04/16/2016 12:00 AM CDT) Occult Blood Scn FIT Positive(A ) NEG [facility] Stool specimen (specimen) 04/16/2016 04/19/2016 12:54 PM CDT Julito Banuelos MD LAB - STOOLS ORDERABLES Final Re sult [facility] [address] [place] [address] * DEXA - HIM SCAN (11/02/2015 12:00 AM PROCESS VALIDATION ENGINEER) Anatomical Region Laterality Modality Other 11/02/2015 Provider Outside IMG DEXA ORDERABLES Final Resul t * Eye Exam - HIM Scan (09/25/2014) Narrative Genet Dora - 09/25/2014 for eye exam, had it done 09/2014 at [facility]. [place] us Patient Reported OTHER Final Result * Spirometry, Breath Capacity (03/13/2011) Andrew Lu MD PROCEDURES Final Result from Last 3 Months or Most Recently Relevant to Health Maintenance Insurance [facility] MEDICARE ADVANTAGE [facility] MEDICARE ADVANTAGE * Guarantor: Marialuisa Cosby Account Type Relation to Patient Date of Phone Billing Address Medication Therapy Self [address] [place] [address] BCBS MEDICARE ADVANTAGE [facility] MEDICARE ADVANTAGE Advance Directives For more information, please contact: [phone] * Full Code (Latest Code Status on [...] 4:58 AM 07/03/2014 1:24 PM Care Teams Retention Specialist Relationship Specialty Start Date End Date Vika Kevin APRN CNP [address] [place] [address] PCP - General Nurse Practitioner - Family 07/24/[address] Paper Bags Sewing Machine Operator Dietitian, Registered 04/14/19
--- OUTSIDE RECORDS SUMMARY | 2025-04-13 17:32 | XMS_ITS | Encounter Summary ---
Author Organization [place] Address [address] [facility] [place] [address] Care Team Providers Care Manager Play Name Role Phone Julito Banuelos MD Primary Care Provider [phone] Unavailable Unavailable Susannah Blankenship [facility] Unavailable [phone] Carolyn Huynh [facility] Unavailable [phone] Vika Kevin APRN [facility] Unavailable + Marilyn Willard MD Unavailable [phone] Carie Varela DO Unavailable [phone] Maylin May NP Unavailable [phone] Marisa Hernandez RN Unavailable Unavailable Vilma Long MD Unavailable + [phone] Yasmeen Pendleton [facility] Unavailable Cole George Unavailable Fletcher Russell Unavailable Unavailable Bautista Casey MD Unavailable [phone] Jasmyn Oliver Unavailable [phone] Vika Kevin APRN [facility] Primary Care Prov ider Vika Kevin APRN [facility] Primary Care Prov ider Yasmeen Pendleton [facility] Unavailable [phone] Vika Kevin APRN FIRE RANGE TECHNICIAN Primary Care Prov ider Encounter Details Date Type Department Care Team (Late st Contact Info) Description 12/10/2020 MyC Medical Advice [facility] [address] [facility] [address] [place] [address] [facility] [address] [place] [address] Social History Tobacco Use Types [...] on file Legal 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 BEEF SPLITTER Gender Identity Not on file Sexual Orientation Not on file Occupation Industry Job Start Date Job End Date Not on file Not on file Not on file Not on file COVID-19 Exposure Response Date Recorded In the last month, have you been in contact with someone who was confirmed or suspected to have Coronavirus / COVID-19? No / Unsure 12/11/2020 3:56 PM BEEF SPLITTER documented as of this encounter Plan of Treatment Not on file documented as of this encounter Visit Diagnoses Not on filedocumented in this encounter Additional Health Concerns Assessment Noted Time PHQ-9 Depression Total Score: 10 020 9:30 AM BEEF SPLITTER documented as of this encounter Care Teams Manager Play Relationship Specialty Start Date End Date Julito Banuelos MD [address] [place] [address] PCP - General Family Practice 09/12/15 09/23/21 Vika Kevin APRN FIRE RANGE TECHNICIAN [address] [place] [address] PCP - General Nurse Practitioner - Family 09/24/21 03/05/22 Vika Kevin APRN FIRE RANGE TECHNICIAN [address] [place] [address] PCP - General Nurse Practitioner - Family 03/18/22 06/18/22 Vika Kevin, JAIME FIRE RANGE TECHNICIAN [address] [place] [address] PCP - General Nurse Practitioner - Family 07/24/[address] [place] [address] Program Or Project Administrator Dietitian, Registered 04/14/19 Susannah Blankenship, [facility] [address] [place] [address] [address] [place] [address] Pharmacist Pharmacist 08/08/19 04/15/21 Carolyn Huynh [facility] [address] [place] [address] Pharmacist Pharmacist 06/25/20 04/15/21 Vika Kevin, JAIME FIRE RANGE TECHNICIAN [address] [place] [address] Assigned PCP 07/22/20 11/16/24 Marilyn Willard MD [address] [place] [address] [address] [place], [place] [address] Assigned Surgical Provider 08/17/20 08/16/24 Carie Varela DO [address] [place] [address] Assigned Heart and Vascular Provider 08/17/20 01/19/21 Maylin May NP [address] [place] [address] Assigned Pediatric Specialist Provider 12/16/20 06/13/22 Marisa Rodrigues, RN Clinic Paper Products Machine Operator 01/15/21 02/26/21 Vilma Long MD [address] [place] [address] Assigned Heart and Vascular Provider 01/20/21 07/20/21 [facility] [address] [place] [address] [phone] Pharmacist Pharmacist 06/04/21 01/15/22 Cole George LISW Lead Paper Products Machine Operator 06/13/21 10/07/21 Fletcher Up Community Health Worker 06/13/21 09/12/21 Bautista Casey MD [address] [place] [address] Assigned Heart and Vascular Provider 07/21/21 01/16/23 Jasmyn Oliver CHW Community Health Worker 09/13/21 10/07/21 Yasmeen Pendleton [facility] [address] [place] [address] [id number] Assigned MTM Pharmacist 03/22/22 01/02/23 documented as of this encounter
--- OUTSIDE RECORDS SUMMARY | 2025-04-13 17:32 | XMS_ITS | Encounter Summary ---
Author Organization [place] Address [address] [facility] [place] [address] Care Team Providers Care Other Sales Support Worker Name Role Phone Cortez Lu MD Primary Care Provider [phone] Niko Resendiz MD Primary Care Provider Carlie Mac MD Primary Care Provide r Angella Mendieta MD Primary Care Provider Julito Banuelos MD Primary Care Provider [phone] Julito Banuelos MD Unavailable Julito Banuelos MD Unavailable Aleshia Henriquez RD Unavailable Unavailable Mary Kay Jones [facility] Unavailable Unavailable Susannah Blankenship [facility] Unavailable [phone] Carolyn Huynh [facility] Unavailable [phone] Vika Kevin APRN WAFER MOUNTER Unavailable + Marilyn Willard MD Unavailable [phone] Carie Varela DO Unavailable [phone] Maylin May NP Unavailable [phone] Marisa Rodrigues RN Unavailable Unavailable Vilma Long MD Unavailable + [phone] Yasmeen Pendleton [facility] Unavailable + [phone] Cole George Unavailable Fletcher Russell Unavailable Unavailable Bautista MD Unavailable [phone] Jasmyn Oliver [facility] Unavailable [phone] Vika Kevin APRN [facility] Primary Care Prov ider Vika Kevin APRN [facility] Primary Care Prov ider Yasmeen Pendleton [facility] Unavailable + [phone] [facility] Primary Care Prov ider Encounter Details Date Type Department Care Team (Late st Contact Info) Description 09/16/2013 Office Visit-[facility] [address] [place] [address] Reji Davis MD [address] [place] [address] Social History Tobacco Use Types [...] on file Legal 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 - Hyperlipidemia mixed, 272.2 [...] daily 12. Nasacort AQ 55 mcg Aerosol, Agness, Take as Directed 13. Plavix 75 mg [...] mid circumflex artery in December,, while at [facility] in [place], [place]. This was following a presentation for a ved-FU-tzurkrf elevation WA. Since I saw the patient last she was seen in the [facility] ER with overall generalized weakness and felt to be potentially dehydrated in the setting of an infection. She has otherwise done well from a cardiovascular standpoint and has had no recurrent episodes of fatigue. She has had no recurrent anginal symptoms, which are chest discomfort and chest heaviness. Marialuisa plans to travel back to [place] for three months after the holidays. She has questions as to whether she can exercise given her coronary artery disease. Finally, I talked to Marialuisa about this previously, that her archaeology professor in [place] had recommended that she remain on lifelong Plavix. She seems somewhat adamant about continuing this recommendation. PAST HISTORY Past Medical Illnesses: asthma, HTN, hypothyoidism, diabetes, hyperlipidemia, major depression, anxiety, hypertension, Restless Leg syndrome Past Cardiac Illnesses: CAD, s/p WA Surgeries/Procedures - General: hysterectomy Cardiac/Vasc Procedures-Invasive: left heart cath 12/2012 ([place]) Cardiology Procedures-NonInvasive: echocardiogram Jun 2007, myocardial perfusion (Nuc) Jun 2007, echo 12/2012 ([place]), stress echo February 2013 Cardiac Cath Results: 12/2012 Mereta Resolute NELIA to the mid and prox [...] - lives with and been living in [place] for 3 months; Place of - [place]; REVIEW OF SYSTEMS GENERAL frequent uti's otherwise [...] takes allergy shots, allergies get worse in [place] but they can get bad in [place] too PHYSICAL EXAMINATION VITAL SIGNS: Blood Pressure: [...] left circumflex artery following presentation for a bkd-LH-uaudpif elevation WA. 3. Recent evaluation for fatigue and weakness, [...] Out COVID-19 12/04/2020 12/04/2020 12/05/2020 6:04 PM STOCKROOM INVENTORY CLERK documented as of this encounter Care Teams Other Sales Support Worker Relationship Specialty Start Date End Date Cortez Lu MD XXX RETIRED XXX [address] [place] [phone] PCP - General 12/10/01 01/10/14 Niko Resendiz MD [address] [place] [address]6418 PCP - General Internal Medicine 01/11/14 01/29/14 Carlie Mac MD [address] [place] [address] PCP - General Pediatrics 01/30/14 07/17/15 Angella Mendieta MD [address] [place] [address] [id number] PCP - General Family Practice 07/18/15 09/11/15 Julito Banuelos MD [address] [place] [address] 454772 PCP - General Family Practice 09/12/15 09/23/21 Julito Banuelos MD [address] [place] [address] [phone] PCP - Assigned PCP 02/17/16 12/28/18 Vika Kevin APRN WAFER MOUNTER [address] [place] [address] 71400 PCP - General Nurse Practitioner - Family 09/24/21 03/05/22 Vika Kevin APRN WAFER MOUNTER [address] [place] [address] 23606 PCP - General Nurse Practitioner - Family 03/18/22 06/18/22 Vika Kevin APRN WAFER MOUNTER [address] [place] [address] 062462 PCP - General Nurse Practitioner - Family 07/24/22 Julito Banuelos MD [address] [place] [address] [phone] Assigned PCP 02/17/16 07/21/[address] [place] [address] 91945 Room Maid Dietitian, Registered 04/14/19 Mary Kay Jones, [facility] Pharmacist 08/01/19 04/20/20 [facility] [address] [place] [address] [address] [place], [place] 4559[address] Pharmacist Pharmacist 08/08/19 04/15/21 Carolyn Huynh [facility] [address] [place] [address] Pharmacist Pharmacist 06/25/20 04/15/21 Vika Kevin APRN CNP [address] [place] [address] [id number] Assigned PCP 07/22/20 11/16/24 Marilyn Willard MD [address] [place] [address] [address] [place], [place] 122[address] Assigned Surgical Provider 08/17/20 08/16/24 Carie Varela DO [address] [place] [address] Assigned Heart and Vascular Provider 08/17/20 01/19/21 Maylin May NP [address] [place] [address] Assigned Pediatric Specialist Provider 12/16/20 06/13/22 Marisa Rodrigues, RN Clinic Rotary Screen Printing Machine Operator 01/15/21 02/26/21 Vilma Long MD [address] [place] [address] Assigned Heart and Vascular Provider 01/20/21 07/20/21 [facility] [address] [place], [place] 3970[address] Pharmacist Pharmacist 06/04/21 01/15/22 Cole George LISW Lead Rotary Screen Printing Machine Operator 06/13/21 10/07/21 Fletcher Up Community Health Worker 06/13/21 09/12/21 Bautista Casey MD [address] [place] [address] Assigned Heart and Vascular Provider 07/21/21 01/16/23 Jasmyn Oliver CHW Community Health Worker 09/13/21 10/07/21 [facility] [address] [place] [address] Assigned MTM Pharmacist 03/22/22 01/02/23 documented as of this encounter
--- OUTSIDE RECORDS SUMMARY | 2025-04-13 17:32 | XMS_ITS | Encounter Summary ---
Author Organization [place] Address [address] [facility] [place] [address] Care Team Providers Care Grant Administrator Name Role Phone Julito Banuelos MD Primary Care Provider [phone] Unavailable Unavailable Susannah Blankenship [facility] Unavailable [phone] Carolyn Huynh [facility] Unavailable [phone] Vika Kevin APRN [facility] Unavailable + Marilyn Willard MD Unavailable [phone] Carie Varela DO Unavailable [phone] Maylin May NP Unavailable [phone] Marisa Hernandez RN Unavailable Unavailable Vilma Long MD Unavailable + [phone] Yasmeen Pendleton [facility] Unavailable Cole George Unavailable Fletcher Russell Unavailable Unavailable Bautista Casey MD Unavailable [phone] Jasmyn Oliver Unavailable [phone] Vika Kevin APRN [facility] Primary Care Prov ider Vika Kevin APRN [facility] Primary Care Prov ider FrantzYasmeen barreto [facility] Unavailable [phone] Vika Kevin STEAMER OPERATOR [facility] Primary Care Prov ider Encounter Details Date Type Department Care Team (Late st Contact Info) Description 08/14/2020 MyC Medical Advice [address] [place] [address] Susannah Blankenship, [facility] [address] [place] [address] [facility] [address] [place] [address] Social History Tobacco Use Types [...] on file Legal 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 Gender Identity Not on file Sexual [...] Out COVID-19 12/04/2020 12/04/2020 12/05/2020 6:04 PM SENIOR SALES ADMINISTRATOR Assessment Noted Time PHQ-9 Depression Total Score: 020 1:07 PM CDT documented as of this encounter Care Teams Grant Administrator Relationship Specialty Start Date End Date Julito Banuelos MD [address] [place], [place] [address] PCP - General Family Practice 09/12/15 09/23/21 Vika Kevin, JAIME GATEHOUSE ATTENDANT [address] [place] [address] PCP - General Nurse Practitioner - Family 09/24/21 03/05/22 Vika Kevin APRN GATEHOUSE ATTENDANT [address] [place] [address] PCP - General Nurse Practitioner - Family 03/18/22 06/18/22 Vika Kevin APRN GATEHOUSE ATTENDANT [address] [place] [address] PCP - General Nurse Practitioner - Family 07/24/[address] [place] [address] Parts Sales Manager Dietitian, Registered 04/14/19 Susannah Blankneship, [facility] [address] [facility] [address] [place] [address] Pharmacist Pharmacist 08/08/19 04/15/21 Carolyn Huynh [facility] [address] [place] [address] Pharmacist Pharmacist 06/25/20 04/15/21 Vika Kevin, JAIME GATEHOUSE ATTENDANT [address] [place] [address] [phone] Assigned PCP 07/22/20 11/16/24 Marilyn Willard MD [address] [facility] [address] [place] [address] Assigned Surgical Provider 08/17/20 08/16/24 Carie Varela DO [address] [place] [address] Assigned Heart and Vascular Provider 08/17/20 01/19/21 Maylin May NP [address] [facility] [place] [address] Assigned Pediatric Specialist Provider 12/16/20 06/13/22 Marisa Rodrigues, RN Clinic Production Designer 01/15/21 02/26/21 Vilma Long MD [address] [place] [address] Assigned Heart and Vascular Provider 01/20/21 07/20/21 [facility] [address] [place] [address] Pharmacist Pharmacist 06/04/21 01/15/22 Cole George LISW Lead Production Designer 06/13/21 10/07/21 Fletcher Up Community Health Worker 06/13/21 09/12/21 Bautista Casey MD [address] [place] [address] Assigned Heart and Vascular Provider 07/21/21 01/16/23 Jasmyn Oliver CHW Community Health Worker 09/13/21 10/07/21 [facility] [address] [place] [address] Assigned MTM Pharmacist 03/22/22 01/02/23 documented as of this encounter
[2025-04-13 18:42] LABS: Appearance Urine Clear (Clear); Bilirubin Urine Negative (Negative); Blood Urine Trace-intact (Negative); Color Urine Yellow (Yellow); Glucose Urine Negative (Negative); Ketones Urine Negative (Negative); Leukocyte Esterase Urine 3+ (Negative); Nitrite Urine Positive (Negative); Protein Urine Trace (Negative); Specific Gravity Urine 1.015 (1.000-1.030); Urobilinogen Urine 0.2 (0.2-1.0)
[2025-04-13 19:39] LABS: Bacteria Urine Few; Squamous Epithelial Cell Urine Few (None-Few)
--- OUTSIDE RECORDS SUMMARY | 2025-04-14 00:46 | XMS_ITS | Encounter Summary ---
Author Organization [place] Address [address] [facility] [place] [address] Care Team Providers Care Career Services Representative Name Role Phone Andrew Lu MD Primary Care Provider [phone] Niko Resendiz MD Primary Care Provider Carlie Mac MD Primary Care Provide r Angella Mendieta MD Primary Care Provider Julito Banuelos MD Primary Care Provider [phone] Julito Banuelos MD Unavailable Julito Banuelos MD Unavailable Aleshia Henriquez RD Unavailable Unavailable Mary Kay Jones [facility] Unavailable Unavailable Susannah Blankenship [facility] Unavailable [phone] Carolyn Huynh [facility] Unavailable [phone] Vika Kevin APRN ENGINEERING SPECIALIST Unavailable + Marilyn Willard MD Unavailable [phone] Carie Varela DO Unavailable [phone] Maylin May NP Unavailable [phone] Marisa Rodrigues RN Unavailable Unavailable Vilma Long MD Unavailable + [phone] Yasmeen Pendleton [facility] Unavailable [phone] Cole George Unavailable Fletcher Russell Unavailable Unavailable Bautista Casey MD Unavailable [phone] AnnyJasmyn tracey [facility] Unavailable [phone] Vika Kevin APRN [facility] Primary Care Prov ider Vika Kevin APRN [facility] Primary Care Prov ider Yasmeen Pendleton [facility] Unavailable [phone] Vika Kevin APRN [facility] Primary Care Prov ider Reason for Visit * Reason Onset Date Comments Refill Request 05/02/2012 Encounter Details Date Type Department Care Team (Late st Contact Info) Description 05/02/2012 MyC Refill [address] [address] Andrew Lu MD XXX RETIRED XXX [address] [place] [address] Refill Request Social History Tobacco Use [...] file Legal 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 WATCH 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 Gender Identity Not on file Sexual Orientation [...] capsule [Andrew Lu MD, MD] Preferred pharmacy: [facility] Comment: documented in this encounter Plan of Treatment Not on file documented as of this encounter Visit Diagnoses Diagnosis Cellulitis of leg- Primary Cellulitis and abscess of leg, except foot documented in this encounter Additional Health Concerns Infection Onset Date Last Indicated Resolved Time Rule Out COVID-19 07/25/2020 07/25/2020 07/26/2020 3:02 PM CDT Rule Out COVID-19 12/04/2020 12/04/2020 12/05/2020 6:04 PM INSPECTOR WATCH TRAIN documented as of this encounter Care Teams Career Services Representative Relationship Specialty Start Date End Date Andrew Lu MD XXX RETIRED XXX [address] [place] [phone] PCP - General 12/10/01 01/10/14 Niko Resendiz MD [address] [place] [address] PCP - General Internal Medicine 01/11/14 01/29/14 Carlie Mac MD [address] [place] [address] PCP - General Pediatrics 01/30/14 07/17/15 Angella Mendieta MD [address] [place] [address], [place] [address] PCP - General Family Practice 07/18/15 09/11/15 Julito Banuelos MD [address] [place] [address] PCP - General Family Practice 09/12/15 09/23/21 Julito Banuelos MD [address] [place] [address], [place] [address] PCP - Assigned PCP 02/17/16 12/28/18 Vika Kevin APRN ENGINEERING SPECIALIST [address] [place] [address] PCP - General Nurse Practitioner - Family 09/24/21 03/05/22 Vika Kevin APRN ENGINEERING SPECIALIST [address] [place] [address] PCP - General Nurse Practitioner - Family 03/18/22 06/18/22 Vika Kevin APRN ENGINEERING SPECIALIST [address] [place] [address] PCP - General Nurse Practitioner - Family 07/24/22 Julito Banuelos MD [address] [place] [address] Assigned PCP 02/17/16 07/21/[address] [place] [address] New Order Clerk Dietitian, Registered 04/14/19 Mary Kay Jones, [facility] Pharmacist 08/01/19 04/20/20 Susannah Blankenship, [facility] [address] [facility] [address] [place], [place] [phone] Pharmacist Pharmacist 08/08/19 04/15/21 Carolyn Huynh, [facility] [address] [place] [address] Pharmacist Pharmacist 06/25/20 04/15/21 Vika Kevin, PERCUSSION INSTRUCTOR ENGINEERING SPECIALIST [address] [place] [address] 208302 Assigned PCP 07/22/20 11/16/24 Marilyn Willard MD [address] [facility] [address] [place], [place] [address] Assigned Surgical Provider 08/17/20 08/16/24 Carie Varela DO [address] [place] 148725 Assigned Heart and Vascular Provider 08/17/20 01/19/21 Maylin May NP [address] [place], [place] [address] Assigned Pediatric Specialist Provider 12/16/20 06/13/22 Marisa Rodrigues, RN Clinic Refuse Collector Supervisor 01/15/21 02/26/21 Vilma Long MD [address] [place] 9[address] Assigned Heart and Vascular Provider 01/20/21 07/20/21 Yasmeen Pendleton, [facility] [address] [place] [address] Pharmacist Pharmacist 06/04/21 01/15/22 Cole George LISW Lead Refuse Collector Supervisor 06/13/21 10/07/21 Fletcher Up Community Health Worker 06/13/21 09/12/21 Bautista Casey MD [address] [place] [address] Assigned Heart and Vascular Provider 07/21/21 01/16/23 Jasmyn Oliver CHW [facility] Health Worker 09/13/21 10/07/21 Yasmeen Pendleton [facility] [address] [place] [address] Assigned MTM Pharmacist 03/22/22 01/02/23 documented as of this encounter
--- OUTSIDE RECORDS SUMMARY | 2025-04-14 00:46 | XMS_ITS | Encounter Summary ---
Author Organization [place] Address [address] [facility] [place] [address] Care Team Providers Care Acetylene Burner Name Role Phone Julito Banuelos MD Primary Care Provider [phone] Julito Banuelos MD Unavailable Aleshia Henriquez RD Unavailable Unavailable Mary Kay Jones [facility] Unavailable Unavailable Susannah Blankenship [facility] Unavailable Carolyn Huynh [facility] Unavailable [phone] Vika Kevin APRN CORPORATE DRIVER Unavailable + Marilyn Willard MD Unavailable [phone] Carie Varela DO Unavailable [phone] Maylin May NP Unavailable [phone] Marisa Hernandez RN Unavailable Unavailable Vilma Long MD Unavailable Yasmeen Pendleton [facility] Unavailable [phone] Cole George Unavailable Fletcher Russell Unavailable Unavailable Bautista Casey MD Unavailable Jasmyn Oliver CH[facility] Unavailable [phone] Vika Kevin APRN CORPORATE DRIVER Primary Care Prov ider Vika Kevin APRN [facility] Primary Care Prov ider Yasmeen Pendleton [facility] Unavailable + [phone] Vika Kevin APRN [facility] Primary Care Prov ider Reason for Visit * Reason Onset Date Comments Refill Request 09/12/2019 Encounter Details Date Type Department Care Team (Late st Contact Info) Description 09/12/2019 MyC Refill [facility] [address] [facility] [address] [place] [phone] Carie Varela DO [address] [place], [place] [address] Refill Request Social History Tobacco Use Types [...] on file Legal 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 SCHOOL MANAGER Gender Identity Not on file Sexual [...] Unspecified essential hypertension Coronary artery disease involving caddo coronary artery of caddo heart without angina pectoris documented in this encounter Additional Health Concerns Infection Onset Date Last Indicated Resolved Time Rule Out COVID-19 07/25/2020 07/25/2020 07/26/2020 3:02 PM CDT Rule Out COVID-19 12/04/2020 12/04/2020 12/05/2020 6:04 PM SCHOOL MANAGER Assessment Noted Time PHQ-9 Depression Total Score: 8 07/18/20 19 12:06 PM CDT documented as of this encounter Care Teams Acetylene Burner Relationship Specialty Start Date End Date Julito Banuelos MD [address] [place] [address] PCP - General Family Practice 09/12/15 09/23/21 Vika Kevin APRN CORPORATE DRIVER [address] [place] [address] [phone] PCP - General Nurse Practitioner - Family 09/24/21 03/05/22 Vika Kevin APRN CORPORATE DRIVER [address] [place] [address] [phone] PCP - General Nurse Practitioner - Family 03/18/22 06/18/22 Vika Kevin APRN CORPORATE DRIVER [address] [place] [address] [phone] PCP - General Nurse Practitioner - Family 07/24/22 Julito Banuelos MD [address] [place] [address] 938942 Assigned PCP 02/17/16 07/21/[address] [place] [address] Express Manager Dietitian, Registered 04/14/19 Mary Kay Jones [facility] Pharmacist 08/01/19 04/20/20 Susannah Blankenship [facility] [address] [place] [address] 8[address] [place], [place] [address] Pharmacist Pharmacist 08/08/19 04/15/21 Carolyn Huynh [facility] [address] [place], [place] [address] Pharmacist Pharmacist 06/25/20 04/15/21 KevinVikalotte, SUPERINTENDENT DIVISION CORPORATE DRIVER [address] [place], [place] [address] Assigned PCP 07/22/20 11/16/24 Marilyn Willard MD 420 [facility] [address] [place], [place] [address] Assigned Surgical Provider 08/17/20 08/16/24 Carie Varela DO [address] [place] [address] Assigned Heart and Vascular Provider 08/17/20 01/19/21 Maylin May NP [address] [place], [place] [id number] Assigned Pediatric Specialist Provider 12/16/20 06/13/22 Marisa Rodrigues, RN Clinic Back Facer 01/15/21 02/26/21 Vilma Long MD [address] [place] [address] Assigned Heart and Vascular Provider 01/20/21 07/20/21 Yasmeen Pendleton [facility] [address] [place] [address] Pharmacist Pharmacist 06/04/21 01/15/22 Cole George LISW Lead Back Facer 06/13/21 10/07/21 Fletcher Up Community Health Worker 06/13/21 09/12/21 Bautista Casey MD [address] [place] [address] Assigned Heart and Vascular Provider 07/21/21 01/16/23 Jasmyn Oliver CHW Community Health Worker 09/13/21 10/07/21 Yasmeen Pendleton [facility] [address] [place] [address] Assigned MTM Pharmacist 03/22/22 01/02/23 documented as of this encounter
--- OUTSIDE RECORDS SUMMARY | 2025-04-14 00:46 | XMS_ITS | Encounter Summary ---
Author Organization [facility] Address [address] [place] [address] Care Team Providers Care Piece Presser Name Role Phone Julito Banuelos MD Primary Care Provider [phone] Julito Banuelos MD Unavailable Aleshia Henriquez RD Unavailable Unavailable Mary Kay Jones [facility] Unavailable Unavailable Susannah Blankenship [facility] Unavailable [phone] Carolyn Huynh [facility] Unavailable [phone] Vika Kevin APRN DYE ROOM HELPER Unavailable + Marilyn Willard MD Unavailable [phone] Carie Varela DO Unavailable [phone] Maylin May NP Unavailable [phone] Marisa Hernandez RN Unavailable Unavailable Vilma Long MD Unavailable Yasmeen Pendleton [facility] Unavailable Cole George Unavailable Fletcher Russell Unavailable Unavailable Bautista Casey MD Unavailable [phone] Jasmyn Oliver CHW Unavailable [phone] Vika Kevin APRN DYE ROOM HELPER Primary Care Prov ider Vika Kevin APRN [facility] Primary Care Prov ider Yasmeen Pendleton [facility] Unavailable + [phone] Vika Kevin APRN [facility] Primary Care Prov ider Reason for Visit * Reason Comments Medication Refill Encounter Details Date Type Department Care Team (Late st Contact Info) Description 09/07/[address] [phone] [place] [address] [place] [address] [phone] Medication Refill Social History Tobacco Use Types [...] on file Legal 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 FITNESS AND WELLNESS COORDINATOR Gender Identity Not on file Sexual Orientation Not on file Occupation Industry Job Start Date Job End Date Not on file Not on file Not on file Not on file documented as of this encounter Miscellaneous Notes * Telephone Encounter - Panda Bradshaw RN - 09/09/2019 12:44 PM FITNESS AND WELLNESS COORDINATOR [place] [facility] [place] Protocol. Panda Bradshaw RN [facility] Triage ESS AND WELLNESS COORDINATOR * Telephone Encounter - Jesús Flores - [...] 90 days) Sep 12, 2019 2:00 PM FITNESS AND WELLNESS COORDINATOR SHORT with Susannah Blankenship [facility] ([facility] [address] [facility] [address] [facility] [id number] Sep 23, 2019 10:50 AM FITNESS AND WELLNESS COORDINATOR Office Visit with Julito Banuelos MD [facility] [address] [place] [address] [phone] 48 g 3 Sig: SPRAY TWO SPRAYS [...] & Orders section of the refill encounter. ESS AND WELLNESS COORDINATOR documented in this encounter Plan of Treatment Not on file documented as of this encounter Visit Diagnoses Diagnosis Environmental allergies Allergic rhinitis, cause unspecified documented in this encounter Additional Health Concerns Infection Onset Date Last Indicated Resolved Time Rule Out COVID-19 07/25/2020 07/25/2020 07/26/2020 3:02 PM CDT Rule Out COVID-19 12/04/2020 12/04/2020 12/05/2020 6:04 PM FITNESS AND WELLNESS COORDINATOR Assessment Noted Time PHQ-9 Depression Total Score: 8 07/18/20 19 12:06 PM CDT documented as of this encounter Care Teams Piece Presser Relationship Specialty Start Date End Date Julito Banuelos MD [address] [place] [address] [id number] PCP - General Family Practice 09/12/15 09/23/21 Vika Kevin APRN DYE ROOM HELPER [address] [place] [address] [phone] PCP - General Nurse Practitioner - Family 09/24/21 03/05/22 Vika Kevin APRN DYE ROOM HELPER [address] [place] [address] [id number] PCP - General Nurse Practitioner - Family 03/18/22 06/18/22 Vika Kevin APRN DYE ROOM HELPER [address] [place] [address] 379122 PCP - General Nurse Practitioner - Family 07/24/22 Julito Banuelos MD [address] [place] [address] 575442 Assigned PCP 02/17/16 07/21/[address] [place] [address] Foreign Correspondent Dietitian, Registered 04/14/19 Mary Kay Jones [facility] Pharmacist 08/01/19 04/20/20 Susannah Blankenship, [facility] [address] [place] [address] [address] [place] [address] Pharmacist Pharmacist 08/08/19 04/15/21 Carolyn Huynh [facility] [place] [address] Pharmacist Pharmacist 06/25/20 04/15/21 Vika Kevin APRN DYE ROOM HELPER [address] [place] [address] 65854 Assigned PCP 07/22/20 11/16/24 Marilyn Willard MD [address] [place] [address] Assigned Surgical Provider 08/17/20 08/16/24 Carie Varela DO [address] [place] [address] Assigned Heart and Vascular Provider 08/17/20 01/19/21 Maylin May NP [address] [place] [address] Assigned Pediatric Specialist Provider 12/16/20 06/13/22 Marisa Rodrigues, RN Clinic Global Transportation Manager 01/15/21 02/26/21 Vilma Long MD [address] [place] [address] Assigned Heart and Vascular Provider 01/20/21 07/20/21 Yasmeen Pendleton [facility] [address] [place] [address] Pharmacist Pharmacist 06/04/21 01/15/22 Cole George LISW Lead Global Transportation Manager 06/13/21 10/07/21 Fletcher Up Community Health Worker 06/13/21 09/12/21 Bautista Casey MD [address] [place] [address] Assigned Heart and Vascular Provider 07/21/21 01/16/23 Jasmyn Oliver CHW Community Health Worker 09/13/21 10/07/21 Yasmeen Pendleton [facility] [address] [place] [address] Assigned MTM Pharmacist 03/22/22 01/02/23 documented as of this encounter
--- OUTSIDE RECORDS SUMMARY | 2025-04-14 00:46 | XMS_ITS | Encounter Summary ---
Author Organization [place] Address [address] [facility] [place] [address] Care Team Providers Care Commercial Escrow Assistant Name Role Phone Andrew Lu MD Primary Care Provider [phone] Niko Resendiz MD Primary Care Provider Carlie Mac MD Primary Care Provide r Angella Mendieta MD Primary Care Provider Julito Banuelos MD Primary Care Provider [phone] Julito Banuelos MD Unavailable Julito Banuelos MD Unavailable Aleshia Henriquez RD Unavailable Unavailable Mary Kay Jones [facility] Unavailable Unavailable Susannah Blankenship [facility] Unavailable [phone] Carolyn Huynh [facility] Unavailable [phone] Vika Kevin APRN STACK MATCHER Unavailable + Marilyn Willard MD Unavailable [phone] Carie Varela DO Unavailable [phone] Maylin May NP Unavailable [phone] Marisa Rodrigues RN Unavailable Unavailable Vilma Long MD Unavailable + [phone] Yasmeen Pendleton [facility] Unavailable [phone] Cole George Unavailable Fletcher Russell Unavailable Unavailable Bautista Casey MD Unavailable [phone] DemetriusJasmyn wright [facility] Unavailable [phone] Vika Kevin APRN [facility] Primary Care Prov ider Vika Kevin APRN [facility] Primary Care Prov ider Yasmeen Pendleton [facility] Unavailable [phone] Vika [facility] Primary Care Prov ider Encounter Details Date Type Department Care Team (Late st Contact Info) Description 04/27/2012 MyC Medical Advice [address] [phone] Andrew Lu MD XXX RETIRED XXX [address] [phone] Social History Tobacco Use Types Packs/Day Years Used Date Smoking Tobacco: Former Cigarettes 0.3 15 0 10/26/1961 - 10/26/1976 Smokeless Tobacco: Never Alcohol Use Standard Drinks/Week Comments Yes 0 (1 standard drink = 0.6 oz pur e alcohol) 1-2 glasses of wine weekly Comments No Sex and Gender Information Value Date Recorded Sex Assigned at Not on file Legal 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 VP DELIVERY Gender Identity Not on file Sexual Orientation [...] Out COVID-19 12/04/2020 12/04/2020 12/05/2020 6:04 PM VP DELIVERY documented as of this encounter Care Teams Commercial Escrow Assistant Relationship Specialty Start Date End Date Andrew Lu MD XXX RETIRED XXX [address] [place] [phone] PCP - General 12/10/01 01/10/14 Niko Resendiz MD [address] [place] [address] 17832 PCP - General Internal Medicine 01/11/14 01/29/14 Carlie Mac MD [address] [place] [address] PCP - General Pediatrics 01/30/14 07/17/15 Angella Mendieta MD [address] [place] [address] PCP - General Family Practice 07/18/15 09/11/15 Julito Banuelos MD [address] [place] [address] PCP - General Family Practice 09/12/15 09/23/21 Julito Banuelos MD [address] [place] [address] PCP - Assigned PCP 02/17/16 12/28/18 Vika Kevin APRN STACK MATCHER [address] [place] [address] 37464 PCP - General Nurse Practitioner - Family 09/24/21 03/05/22 Vika Kevin APRN STACK MATCHER [address] [place] [address] PCP - General Nurse Practitioner - Family 03/18/22 06/18/22 Vika Kevin, JAIME STACK MATCHER [address] [place] [address] [phone] PCP - General Nurse Practitioner - Family 07/24/22 Julito Banuelos MD [address] [place] [address] 178522 Assigned PCP 02/17/16 07/21/[address] [place] [address] Quilting Machine Helper Dietitian, Registered 04/14/19 Mary Kay Jones, [facility] Pharmacist 08/01/19 04/20/20 Susannah Blankenship, [facility] [address] [facility] [address] [place], [place] 117[address] Pharmacist Pharmacist 08/08/19 04/15/21 Carolyn Huynh, [facility] [address] [place], [place] 46[address]47 Pharmacist Pharmacist 06/25/20 04/15/21 Vika Kevin, JAIME STACK MATCHER [address] [place] [address] 410242 Assigned PCP 07/22/20 11/16/24 Marilyn Willard MD [address] [facility] [address] [place], [place] [address]60[address] Assigned Surgical Provider 08/17/20 08/16/24 Carie Varela DO [address] [place] [address] Assigned Heart and Vascular Provider 08/17/20 01/19/21 Maylin May NP [address] [place] [address] Assigned Pediatric Specialist Provider 12/16/20 06/13/22 Marisa Rodrigues, RN Clinic Nursing Education Specialist 01/15/21 02/26/21 Vilma Long MD [address] [place] [address] Assigned Heart and Vascular Provider 01/20/21 07/20/21 Yasmeen Pendleton [facility] [address] [place] [address] Pharmacist Pharmacist 06/04/21 01/15/22 Cole George LISW Lead Nursing Education Specialist 06/13/21 10/07/21 Fletcher Up Community Health Worker 06/13/21 09/12/21 Bautista Casey MD [address] [place] [address] Assigned Heart and Vascular Provider 07/21/21 01/16/23 Jasmyn Oliver CHW Community Health Worker 09/13/21 10/07/21 Yasmeen Pendleton [facility] [address] [place] [address] Assigned MTM Pharmacist 03/22/22 01/02/23 documented as of this encounter
--- OUTSIDE RECORDS SUMMARY | 2025-04-14 00:46 | XMS_ITS | Encounter Summary ---
Author Organization [place] Address [address] [place] [address] Care Team Providers Care Associate Professor Of Education Name Role Phone Aleshia Henriquez RD Unavailable Unavailable Vika Kevin APRN [facility] Unavailable + Marilyn Willard MD Unavailable Maylin May NP Unavailable [phone] Yasmeen Pnedleton [facility] Unavailable [phone] Bautista Casey MD Unavailable Vika Kevin APRN [facility] Primary Care Prov ider Vika Kevin APRN [facility] Primary Care Prov ider Yasmeen Pendleton [facility] Unavailable Vika Kevin APRN [facility] Primary Care Prov ider Encounter Details Date Type Department Care Team (Late st Contact Info) Description 10/17/2021 [facility] [place] Adv[place] [address] [phone] Yasmeen Pendleton, [facility] [address] [place], [place] [address] Social History Tobacco Use Types Packs/Day Years [...] and Family Not on file 06/14/2021 Attends Sikhism Services Not on file 06/14 Active Member [...] on file Legal 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 SLUBBER FRAME CHANGER Gender Identity Not on file Sexual Orientation [...] COVID-19? No / Unsure 09/25/2021 11:59 AM SLUBBER FRAME CHANGER documented as of this encounter Plan of Treatment Not on file documented as of this encounter Visit Diagnoses Not on filedocumented in this encounter Additional Health Concerns Assessment Noted Time PHQ-9 Depression Total Score: 10 04/29/ 021 3:56 PM CDT documented as of this encounter Care Teams Associate Professor Of Education Relationship Specialty Start Date End Date Vika Kevin APRN HOME ATTENDANT [address] [place] [address] PCP - General Nurse Practitioner - Family 09/24/21 03/05/22 Vika Kevin APRN HOME ATTENDANT [address] [place] [address] 72791 PCP - General Nurse Practitioner - Family 03/18/22 06/18/22 Vika Kevin APRN HOME ATTENDANT [address] [place] [address] [phone] PCP - General Nurse Practitioner - Family 07/24/[address] Biochemistry Technician Dietitian, Registered 04/14/19 Vika Kevin APRN HOME ATTENDANT [address] [place] [address] Assigned PCP 07/22/20 11/16/24 Marilyn Willard MD [address] [place] [address] Assigned Surgical Provider 08/17/20 08/16/24 Maylin May NP [address] [place] [address] Assigned Pediatric Specialist Provider 12/16/20 06/13/22 Yasmeen Pendleton [facility] [address] [place] [address] Pharmacist Pharmacist 06/04/21 01/15/22 Bautista Casey MD [address] [place] [address] Assigned Heart and Vascular Provider 07/21/21 01/16/23 Yasmeen Pendleton [facility] [address] [place] [address] Assigned MTM Pharmacist 03/22/22 01/02/23 documented as of this encounter
--- OUTSIDE RECORDS SUMMARY | 2025-04-14 00:46 | XMS_ITS | Encounter Summary ---
Author Organization [place] Address [address] [facility] [address] Care Team Providers Care Eap Clinician Name Role Phone Aleshia Henriquez RD Unavailable Unavailable Vika Kevin APRN MANAGEMENT RECRUITER Unavailable + Marilyn Willard MD Unavailable [phone] Maylin May NP Unavailable [phone] Ip, Bautista Bell MD Unavailable [phone] Vika Kevin APRN [facility] Primary Care Prov ider Vika Kevin APRN [facility] Primary Care Prov ider Yasmeen Pendleton [facility] Unavailable + [phone] Vika Kevin APRN [facility] Primary Care Prov ider Encounter Details Date Type Department Care Team (Late st Contact Info) Description 02/12/[address] [facility] [place] [address] [place] [address] Marilyn Chaves Social History Tobacco [...] and Family Not on file 06/14/2021 Attends Hindu Services Not on file 06/14 Active Member [...] documented as of this encounter Care Teams Eap Clinician Relationship Specialty Start Date End Date Vika Kevin APRN MANAGEMENT RECRUITER [address] [place] [address] PCP - General Nurse Practitioner - Family 09/24/21 03/05/22 Vika Kevin APRN MANAGEMENT RECRUITER [address] [place] [address] 11010 PCP - General Nurse Practitioner - Family 03/18/22 06/18/22 Vika Kevin APRN MANAGEMENT RECRUITER [address] [place] [address] 6[address]23 PCP - General Nurse Practitioner - Family 07/24/[address] Product Promoter Retail Pet Dietitian, Registered 04/14/19 Vika Kevin, JAIME MANAGEMENT RECRUITER [address] [place] [address] 28392 Assigned PCP 07/22/20 11/16/24 Marilyn Willard MD [address] [place] [address] 30351 Assigned Surgical Provider 08/17/20 08/16/24 Maylin May, JENNY [address] [place] [address] Assigned Pediatric Specialist Provider 12/16/20 06/13/22 Bautista Casey MD [address] [place] [address] Assigned Heart and Vascular Provider 07/21/21 01/16/23 Yasmeen Pendleton, [facility] [address] [place] [address] Assigned MTM Pharmacist 03/22/22 01/02/23 documented as of this encounter
--- OUTSIDE RECORDS SUMMARY | 2025-04-14 00:46 | XMS_ITS | Encounter Summary ---
Author Organization [place] Address [address] [facility] [place] [address] Care Team Providers Care Welding Pantograph Operator Name Role Phone Julito Banuelos MD Primary Care Provider [phone] Julito Banuelos MD Unavailable Aleshia Henriquez RD Unavailable Unavailable Mary Kay Jones [facility] Unavailable Unavailable Susannah Blankenship [facility] Unavailable Carolyn Huynh [facility] Unavailable [phone] Vika Kevin APRN LEAD CLINICAL RESEARCH COORDINATOR Unavailable + Marilyn Willard MD Unavailable [phone] Carie Varela DO Unavailable [phone] Maylin May NP Unavailable [phone] Marisa Hernandez RN Unavailable Unavailable Vilma Long MD Unavailable Yasmeen Pendleton [facility] Unavailable Cole George Unavailable Fletcher Russell Unavailable Unavailable Bautista Casey MD Unavailable [phone] Jasmyn Oliver CHW Unavailable [phone] Vika Kevin APRN LEAD CLINICAL RESEARCH COORDINATOR Primary Care Prov ider Vika Kevin APRN [facility] Primary Care Prov ider Yasmeen Pendleton [facility] Unavailable + [phone] Vika Kevin APRN [facility] Primary Care Prov ider Reason for Visit * Reason Onset Date Comments Refill Request 09/22/2019 Encounter Details Date Type Department Care Team (Late st Contact Info) Description 09/22/2019 MyC Refill [facility] [address] [facility] [address] [place] [phone] Carie Varela DO [address] [place], [place] [address] Refill Request Social History Tobacco Use Types [...] on file Legal 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 POSTAL SERVICE WINDOW CLERK Gender Identity Not on file Sexual [...] Unspecified essential hypertension Coronary artery disease involving [place] coronary artery of [place] heart without angina pectoris documented in this encounter Additional Health Concerns Infection Onset Date Last Indicated Resolved Time Rule Out COVID-19 07/25/2020 07/25/2020 07/26/2020 3:02 PM CDT Rule Out COVID-19 12/04/2020 12/04/2020 12/05/2020 6:04 PM POSTAL SERVICE WINDOW CLERK Assessment Noted Time PHQ-9 Depression Total Score: 8 07/18/20 19 12:06 PM CDT documented as of this encounter Care Teams Welding Pantograph Operator Relationship Specialty Start Date End Date Julito Banuelos MD [address] [place] [address] PCP - General Family Practice 09/12/15 09/23/21 Vika Kevin APRN LEAD CLINICAL RESEARCH COORDINATOR [address] [place] [address] 363132 PCP - General Nurse Practitioner - Family 09/24/21 03/05/22 Vika Kevin APRN LEAD CLINICAL RESEARCH COORDINATOR [address] [place] [address] [phone] PCP - General Nurse Practitioner - Family 03/18/22 06/18/22 Vika Kevin APRN LEAD CLINICAL RESEARCH COORDINATOR [address] [place] [address] 154262 PCP - General Nurse Practitioner - Family 07/24/22 Julito Banuelos MD [address] [place] [address] [id number] Assigned PCP 02/17/16 07/21/[address] [place] [address] Lockstitch Cup Setter Dietitian, Registered 04/14/19 Mary Kay Jones [facility] Pharmacist 08/01/19 04/20/20 Susannah Blankenship [facility] [address] [place] [address] [address] [place], [place] [address] Pharmacist Pharmacist 08/08/19 04/15/21 Carolyn Huynh [facility] [address] [place], [place] 9214[address] Pharmacist Pharmacist 06/25/20 04/15/21 KevinVikalotte, CLOTH WINDING SUPERVISOR LEAD CLINICAL RESEARCH COORDINATOR [address] [place], [place] 223352 Assigned PCP 07/22/20 11/16/24 Marilyn Willard MD [address] [facility] [address] [place], [place] 7944[address] Assigned Surgical Provider 08/17/20 08/16/24 Carie Varela DO [address] [place] [address] Assigned Heart and Vascular Provider 08/17/20 01/19/21 Maylin May NP [address] [place], [place] 19382116 Assigned Pediatric Specialist Provider 12/16/20 06/13/22 Marisa Rodrigues, RN Clinic Hot Iron Worker 01/15/21 02/26/21 Vilma Long MD [address] [place] [address] Assigned Heart and Vascular Provider 01/20/21 07/20/21 Yasmeen Pendleton [facility] [address] [place] [address] Pharmacist Pharmacist 06/04/21 01/15/22 Cole George LISW Lead Hot Iron Worker 06/13/21 10/07/21 Fletcher Up Community Health Worker 06/13/21 09/12/21 Bautista Casey MD [address] [place] [address] Assigned Heart and Vascular Provider 07/21/21 01/16/23 Jasmyn Oliver CHW Community Health Worker 09/13/21 10/07/21 Yasmeen Pendleton [facility] [address] [place] [address] Assigned MTM Pharmacist 03/22/22 01/02/23 documented as of this encounter
--- OUTSIDE RECORDS SUMMARY | 2025-04-14 00:46 | XMS_ITS | Encounter Summary ---
Author Organization [place] Address [address] [facility] [place] [address] Care Team Providers Care Customer Services Supervisor Name Role Phone Julito Banuelos MD Primary Care Provider [phone] Julito Banuelos MD Unavailable Aleshia Henriquez RD Unavailable Unavailable Mary Kay Jones [facility] Unavailable Unavailable Susannah Blankenship [facility] Unavailable Carolyn Huynh [facility] Unavailable [phone] Vika Kevin APRN LACE 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 Unavailable + Marilyn Willard MD Unavailable Carie Varela DO Unavailable [phone] Maylin May NP Unavailable [phone] Marisa Hernandez RN Unavailable Unavailable Vilma Long MD Unavailable Yasmeen Pendleton [facility] Unavailable Cole George Unavailable Fletcher Russell Unavailable Unavailable Bautista Casey MD Unavailable Jasmyn Oliver CHW Unavailable [phone] Vika Kevin APRN LACE 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 Primary Care Prov ider Vika Kevin APRN [facility] Primary Care Prov ider Yasmeen Pendleton [facility] Unavailable + [phone] Vika Kevin APRN [facility] Primary Care Prov ider Reason for Visit * Reason Onset Date Comments Refill Request 09/22/2019 Encounter Details Date Type Department Care Team (Late st Contact Info) Description 09/22/2019 MyC Refill [facility] [address] [facility] [address] [place] [phone] Carie Varela DO [address] [place], [place] [address] Refill Request Social History Tobacco Use Types [...] on file Legal 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 HEMATOLOGY ONCOLOGY CONSULTANT Gender Identity Not on file Sexual Orientation Not on file Occupation Industry Job Start Date Job End Date Not on file Not on file Not on file Not on file documented as of this encounter Plan of Treatment Not on file documented as of this encounter Visit Diagnoses Diagnosis 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 Unstable angina (H) Intermediate coronary syndrome documented in this encounter Additional Health Concerns Infection Onset Date Last Indicated Resolved Time Rule Out COVID-19 07/25/2020 07/25/2020 07/26/2020 3:02 PM CDT Rule Out COVID-19 12/04/2020 12/04/2020 12/05/2020 6:04 PM HEMATOLOGY ONCOLOGY CONSULTANT Assessment Noted Time PHQ-9 Depression Total Score: 8 07/18/20 19 12:06 PM CDT documented as of this encounter Care Teams Customer Services Supervisor Relationship Specialty Start Date End Date Julito Banuelos MD [address] [place] [address] PCP - General Family Practice 09/12/15 09/23/21 Vika Kevin APRN LACE 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 [address] [place] [address] 13467 PCP - General Nurse Practitioner - Family 09/24/21 03/05/22 Vika Kevin APRN LACE 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 [address] [place] [address] 23052 PCP - General Nurse Practitioner - Family 03/18/22 06/18/22 Vika Kevin APRN LACE 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 [address] [place] [address]42 PCP - General Nurse Practitioner - Family 07/24/22 Julito Banuelos MD [address] [place] [address]125 Assigned PCP 02/17/16 07/21/[address] [place] [address]13 Recovery Coach Dietitian, Registered 04/14/19 Mary Kay Jones [facility] Pharmacist 08/01/19 04/20/20 Susannah Blankenship [facility] [address] [place] [address] [address] [place] [address] Pharmacist Pharmacist 08/08/19 04/15/21 Carolyn Huynh [facility] [address] [place] [address] Pharmacist Pharmacist 06/25/20 04/15/21 Vika Kevin, COMPACT ASSEMBLER LACE 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 [address] [place], [place] [address] Assigned PCP 07/22/20 11/16/24 Marilyn Willard MD [address] [facility] [address] [place], [place] [address] Assigned Surgical Provider 08/17/20 08/16/24 Carie Varela DO [address] [place] [address] Assigned Heart and Vascular Provider 08/17/20 01/19/21 Maylin May NP [address] [place], [place] [id number] Assigned Pediatric Specialist Provider 12/16/20 06/13/22 Marisa Rodrigues, RN Clinic Director Electrical Engineering 01/15/21 02/26/21 Vilma Long MD [address] [place] [address] Assigned Heart and Vascular Provider 01/20/21 07/20/21 Yasmeen Pendleton [facility] [address] [place] [address] Pharmacist Pharmacist 06/04/21 01/15/22 Cole George LISW Lead Director Electrical Engineering 06/13/21 10/07/21 Fletcher Up Community Health Worker 06/13/21 09/12/21 Bautista Casey MD [address] [place] [address] Assigned Heart and Vascular Provider 07/21/21 01/16/23 Jasmyn Oliver CHW Community Health Worker 09/13/21 10/07/21 Yasmeen Pendleton, [facility] [address] [place], [place] [address] Assigned MTM Pharmacist 03/22/22 01/02/23 documented as of this encounter
--- OUTSIDE RECORDS SUMMARY | 2025-04-14 00:46 | XMS_ITS | Encounter Summary ---
Author Organization [place] Address [address] [place] [address] Care Team Providers Care Specialty Cook Name Role Phone Andrew Lu MD Primary Care Provider [phone] Niko Resendiz MD Primary Care Provider Carlie Mac MD Primary Care Provide r Angella Mendieta MD Primary Care Provider Julito Banuelos MD Primary Care Provider [phone] Julito Banuelos MD Unavailable Julito Banuelos MD Unavailable Aleshia Henriquez RD Unavailable Unavailable Mary Kay Jones [facility] Unavailable Unavailable Susnanah Blankenship [facility] Unavailable [phone] Carolyn Huynh [facility] Unavailable [phone] Vika Kevin APRN DIRECTOR OF HEALTHCARE SYSTEMS Unavailable + Marilyn Willard MD Unavailable [phone] Carie Varela DO Unavailable [phone] Maylin May NP Unavailable [phone] Marisa Rodrigues RN Unavailable Unavailable Vilma Long MD Unavailable + [phone] Yasmeen Pendleton [facility] Unavailable + [phone] Cole George Unavailable Fletcher Russell Unavailable Unavailable Bautista Casey MD Unavailable [phone] Jasmyn Oliver [facility] Unavailable [phone] Vika Kevin APRN [facility] Primary Care Prov ider Vika Kevin APRN [facility] Primary Care Prov ider Yasmeen Pendleton [facility] Unavailable [phone] Vika Kevin APRN [facility] Primary Care Prov ider Reason for Referral * Referral not Required - Closed Specialty Diagnoses / Procedures Referred By Contkateryna t Referred To Contact Diagnoses CAD (coronary artery disease) Andrew Lu MD XXX RETIRED XXX [address] [place] [address] Phone: tel: fax: [facility] [address] [facility] [place] [address] Phone: tel: fax: Referral ID Status Reason Start Date Expiration Date Visits Re quested Visits Authorized [id number] Closed 01/11/2013 07/10/2013 1 1 Comments Your provider has referred you to: [facility]: [facility] [place] [phone] Please be aware that coverage of these [...] where they were done to arrange for diamond picker prior to your scheduled appointment. Any new CT, MRI or other procedures ordered by your specialist must be performed at a [facility] facility or coordinated by your clinic's referral office. 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 Gender Identity Not on file Sexual [...] Coronary atherosclerosis of unspecified type of vessel, s[place]ovia or graft documented in this encounter Additional Health Concerns Infection Onset Date Last Indicated Resolved Time Rule Out COVID-19 07/25/2020 07/25/2020 07/26/2020 3:02 PM CDT Rule Out COVID-19 12/04/2020 12/04/2020 12/05/2020 6:04 PM LICENSED FUNERAL DIRECTOR documented as of this encounter Care Teams Specialty Cook Relationship Specialty Start Date End Date Andrew Lu MD XXX RETIRED XXX [address] [place] [address] PCP - General 12/10/01 01/10/14 Niko Resendiz MD [address] [address] PCP - General Internal Medicine 01/11/14 01/29/14 Carlie Mac MD [address] [place] [address] PCP - General Pediatrics 01/30/14 07/17/15 Angella Mendieta MD [address] [place] [address] PCP - General Family Practice 07/18/15 09/11/15 Julito Banuelos MD [address] [place] [address] PCP - General Family Practice 09/12/15 09/23/21 Julito Banuelos MD [address] [place] [address] PCP - Assigned PCP 02/17/16 12/28/18 Vika Kevin APRN DIRECTOR OF HEALTHCARE SYSTEMS [address] [place] [address] PCP - General Nurse Practitioner - Family 09/24/21 03/05/22 Vika Kevin APRN [facility] HEALTHCARE SYSTEMS [address] [place] [address] PCP - General Nurse Practitioner - Family 03/18/22 06/18/22 Vika Kevin APRN [facility] [address] [place] [address] 507112 PCP - General Nurse Practitioner - Family 07/24/22 Julito Banuelos MD [address] [place] [address] 420882 Assigned PCP 02/17/16 07/21/20 Aleshia Henriquez, DAVE [address] [place] [address] Sales Technician Home Theater Dietitian, Registered 04/14/19 Mary Kay Jones, [facility] Pharmacist 08/01/19 04/20/20 Susannah Blankenship, [facility] [address] [place] [address] [address] [place], [place] [address] Pharmacist Pharmacist 08/08/19 04/15/[address] [facility] [address] [place], [place] [address] Pharmacist Pharmacist 06/25/20 04/15/21 Vika Kevin APRN DIRECT[facility] OF HEALTHCARE SYSTEMS [address] [place] [address] 471682 Assigned PCP 07/22/20 11/16/24 Marilyn Willard MD [address] [place] [address] [address] [place], [place] [address] Assigned Surgical Provider 08/17/20 08/16/24 Carie Varela DO [address] [place], [place] [address] Assigned Heart and Vascular Provider 08/17/20 01/19/21 Maylin May NP [address] [place] [address] Assigned Pediatric Specialist Provider 12/16/20 06/13/22 Marisa Rodrigues, RN Clinic Fire Alarm Repairer 01/15/21 02/26/21 Vilma Long MD [address] [place] [address] Assigned Heart and Vascular Provider 01/20/21 07/20/21 Yasmeen Pendleton [facility] [address] [place] [address] Pharmacist Pharmacist 06/04/21 01/15/22 Cole George LISW Lead Fire Alarm Repairer 06/13/21 10/07/21 Fletcher Up Community Health Worker 06/13/21 09/12/21 Bautista Casey MD [address] [place] [address] Assigned Heart and Vascular Provider 07/21/21 01/16/23 Jasmyn Oliver CHW Community Health Worker 09/13/21 10/07/21 Yasmeen Pendleton [facility] [address] [place], [place] [address] Assigned MTM Pharmacist 03/22/22 01/02/23 documented as of this encounter
--- OUTSIDE RECORDS SUMMARY | 2025-04-14 00:46 | XMS_ITS | Encounter Summary ---
Author Organization [place] Address [address] [facility] [place] [address] Care Team Providers Care Industrial Tractor Driver Name Role Phone Cortez Lu MD Primary Care Provider [phone] Niko Resendiz MD Primary Care Provider Carlie Mac MD Primary Care Provide r Angella Mendieta MD Primary Care Provider Julito Banuelos MD Primary Care Provider [phone] Jultio Banuelos MD Unavailable Julito Banuelos MD Unavailable Alesiha Henriquez RD Unavailable Unavailable Mary Kay Jones [facility] Unavailable Unavailable Susannah Blankenship [facility] Unavailable [phone] Carolyn Huynh [facility] Unavailable [phone] Vika Kevin APRN HEAD TENNIS PROFESSIONAL Unavailable + Marilyn Willard MD Unavailable [phone] Carie Varela DO Unavailable [phone] Maylin May NP Unavailable [phone] Marisa Rodrigues RN Unavailable Unavailable Vilma Long MD Unavailable + [phone] Yasmeen Pendleton [facility] Unavailable + [phone] Cole George Unavailable Fletcher Russell Unavailable Unavailable Bautista Casey MD Unavailable [phone] 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 Diabetes Maocibzx-Gfh-Xylriuk Dependent, 250.00 2. - Hyperlipidemia mixed, 272.2 3. - Hypertension, 401.1 4. - CAD, 414.00 ALLERGIES lisinopril Nitrofurantoin Nitrofurantoin Macrocrystal pramipexole Di-HCl Sulfasalazine tolterodine tartrate zolpidem tartrate MEDICATIONS (prior to changes made today) 1. Asmanex Twisthaler 220 mcg (120 doses) Aerosol Powdr [facility] ActivInhl, Take as Directed 2. aspirin, [...] daily 9. Nasacort AQ 55 mcg Aerosol, Pierz, Take as Directed 10. Plavix 75 mg [...] HISTORY OF PRESENT ILLNESS INDICATION: History of lnd-KX-tsbeiql elevation LA, here to establish care. Ms. Cosby is a very pleasant 72-year-old female with a history of hypertension, hyperlipidemia,and type 2 diabetes mellitus. She was wintering in [place] when she developed acute onset one evening of back pain with radiation into her chest. She also had associated slight shortness of breath. She had had complaints of shortness of breath with exertion for some time, but it appeared worse the several weeks prior to this event. She subsequently went to the Emergency Room and was found to havehad a gax-GC-jvviynj elevation LA. On 12/27/12 she was taken to the Cardiac Catheterization Lab at [facility] in [place], [place]. There she was found to have significant disease of the left circumflex artery. She underwent two drug-eluting stent implantations. The first was a 2.5x12 mm [place] Resolute drug-eluting stent to the mid circumflex. The second was a 3.0x15 mm [place] Resolute drug-eluting stent to the proximal left [...] Lasix as she recently drove back from [place]. She is planning to take her Lasix over the next several days. She denies any orthopnea. No paroxysmal nocturnal dyspnea. No nausea, vomiting, diaphoresis, syncope, or presyncope. PAST HISTORY Past Medical Illnesses: asthma, HTN, hypothyoidism, diabetes, hyperlipidemia, major depression, anxiety Past Cardiac Illnesses: CAD, s/p LA Surgeries/Procedures - General: hysterectomy Cardiac/Vasc Procedures-Invasive: left heart cath 12/2012 ([place]) Cardiology Procedures-NonInvasive: echocardiogram Jun 2007, myocardial perfusion (Nuc) Jun 2007, echo 12/2012 ([place]) Cardiac Cath Results: 12/2012 [place] Resolute NELIA to the mid and [...] [place] for 3 months; Place of - [place]; [...] [place] but they can get bad in [place] too PHYSICAL EXAMINATION VITAL SIGNS: Blood Pressure: [...] #0 (Zero) Nasacort AQ 55 mcg Aerosol, Pierz, Take as Directed, #0 (Zero) Plavix 75 [...] (Zero) Physician Order IMPRESSIONS/PLAN 1. History of cvd-KX-jowlnvb elevation [place]. 2. Coronary artery disease - status post [...] her up for cardiac rehab in the [place] office since this is where she lives. [...] days while she was traveling back from [place]. She is to contact the clinic should [...] COVID-19 12/04/2020 12/04/2020 12/05/2020 6:04 PM PATTERN ROOM ATTENDANT documented as of this encounter Care Teams Industrial Tractor Driver Relationship Specialty Start Date End Date Cortez Lu MD XXX RETIRED XXX [address] [place] [address] PCP - General 12/10/01 01/10/14 Niko Resendiz MD [address] [address] PCP - General Internal Medicine 01/11/14 01/29/14 Carlie Mac MD [address] [place] [address] PCP - General Pediatrics 01/30/14 07/17/15 Angella Mendieta MD [address] [place] [address] PCP - General Family Practice 07/18/15 09/11/15 Julito Banuelos MD [address] [place] [address] PCP - General Family Practice 09/12/15 09/23/21 Julito Banuelos MD [address] [place] [address] PCP - Assigned PCP 02/17/16 12/28/18 Vika Kevin APRN HEAD TENNIS PROFESSIONAL [address] [place] [address] PCP - General Nurse Practitioner - Family 09/24/21 03/05/22 Vika Kevin APRN HEAD TENNIS PROFESSIONAL [address] [place] [address] PCP - General Nurse Practitioner - Family 03/18/22 06/18/22 Vika Kevin APRN HEAD TENNIS PROFESSIONAL [address] [place] [address] PCP - General Nurse Practitioner - Family 07/24/22 Julito Banuelos MD [address] [place] [address] 451432 Assigned PCP 02/17/16 07/21/[address] [place] [address] Compact Assembler Dietitian, Registered 04/14/19 Mary Kay Jones, [facility] Pharmacist 08/01/19 04/20/20 Susannah [facility] [address] [place] [address] [address] [place] [place], [place] [address] Pharmacist Pharmacist 08/08/19 04/15/21 Carolyn Huynh [facility] [address] [place], [place] [address] Pharmacist Pharmacist 06/25/20 04/15/21 Vika Kevin APRN HEAD TENNIS PROFESSIONAL [address] [place] [address] 716132 Assigned PCP 07/22/20 11/16/24 Marilyn Willard MD [address] [place] [address] [address] [place], [place] [address] Assigned Surgical Provider 08/17/20 08/16/24 Carie Varela DO [address] [place], [place] [address] Assigned Heart and Vascular Provider 08/17/20 01/19/21 Maylin May NP [address] [place], [place] [id number] Assigned Pediatric Specialist Provider 12/16/20 06/13/22 aMrisa Rodrigues, RN Clinic Sealer Sander 01/15/21 02/26/21 Vilma Long MD [address] [place] [address] Assigned Heart and Vascular Provider 01/20/21 07/20/21 [facility] [address] [place], [place] [address] Pharmacist Pharmacist 06/04/21 01/15/22 Cole George LISW Lead Sealer Sander 06/13/21 10/07/21 Fletcher Up Community Health Worker 06/13/21 09/12/21 Bautista Casey MD [address] [place] [address] Assigned Heart and Vascular Provider 07/21/21 01/16/23 Jasmyn Oliver CHW Community Health Worker 09/13/21 10/07/21 Yasmeen Pendleton [facility] [address] [place] [address] Assigned MTM Pharmacist 03/22/22 01/02/23 documented as of this encounter
--- OUTSIDE RECORDS SUMMARY | 2025-04-14 00:46 | XMS_ITS | Encounter Summary ---
Author Organization [place] Address [address] [facility] [place] [address] Care Team Providers Care Clinical Documentation Improvement Specialist Name Role Phone Julito Banuelos MD Primary Care Provider [phone] Julito Banuelos MD Unavailable Aleshia Henriquez RD Unavailable Unavailable Mary Kay Jones [facility] Unavailable Unavailable Susannah Blankenship [facility] Unavailable Carolyn Huynh [facility] Unavailable [phone] Vika Kevin APRN DIVIDING 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 HELPER Unavailable + Marilyn Willard MD Unavailable Carie Varela DO Unavailable [phone] Maylin May NP Unavailable [phone] Marisa Hernandez RN Unavailable Unavailable Vilma Long MD Unavailable Yasmeen Pendleton [facility] Unavailable [phone] Cole George Unavailable Fletcher Russell Unavailable Unavailable Bautista Casey MD Unavailable [phone] Jasmyn Oliver CHW Unavailable [phone] Vika Kevin APRN DIVIDING 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 HELPER Primary Care Prov ider Vika Kevin APRN, CNP Primary Care Prov ider Yasmeen Pendleton [facility] Unavailable [phone] Vika Kevin APRN DIVIDING 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 HELPER Primary Care Prov ider Encounter Details Date Type Department Care Team (Late st Contact Info) Description 08/16/2019 MyC Medical Advice [address] [place] [phone] Mary Kay Jones, [facility] Social History Tobacco Use Types [...] on file Legal 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 MAITRE D Gender Identity Not on file Sexual Orientation [...] Out COVID-19 12/04/2020 12/04/2020 12/05/2020 6:04 PM MAITRE D Assessment Noted Time PHQ-9 Depression Total Score: 8 07/18/20 19 12:06 PM CDT documented as of this encounter Care Teams Clinical Documentation Improvement Specialist Relationship Specialty Start Date End Date Julito Banuelos MD [address] [place] [address] PCP - General Family Practice 09/12/15 09/23/21 Vika Kevin APRN [facility] [address] [place] [address] PCP - General Nurse Practitioner - Family 09/24/21 03/05/22 Vika Kevin APRN DIVIDING 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 HELPER [address] [place] [address]708 PCP - General Nurse Practitioner - Family 03/18/22 06/18/22 Vika Kevin APRN DIVIDING 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 HELPER [address] [place] [address] 166952 PCP - General Nurse Practitioner - Family 07/24/22 Julito Banuelos MD [address] [place] [address] 315872 Assigned PCP 02/17/16 07/21/[address] [place] [address] Quarry Manager Dietitian, Registered 04/14/19 Mary Kay Jones, [facility] Pharmacist 08/01/19 04/20/20 Susannah Blankenship, [facility] [address] [place] [address] [address] [place] [address] Pharmacist Pharmacist 08/08/19 04/15/21 Carolyn Huynh [facility] [address] [place], [place] [address] Pharmacist Pharmacist 06/25/20 04/15/21 Vika Kevin APRN DIVIDING 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 HELPER [address] [place] [address] Assigned PCP 07/22/20 11/16/24 Marilyn Willard MD [address] [facility] [address] [place] [address] Assigned Surgical Provider 08/17/20 08/16/24 Carie Varela DO [address] [place] [address] Assigned Heart and Vascular Provider 08/17/20 01/19/21 Maylin May, JENNY [address] [place], [place] [address] Assigned Pediatric Specialist Provider 12/16/20 06/13/22 Marisa Rodrigues RN Clinic Instructional Technology Facilitator 01/15/21 02/26/21 Vilma Long MD [address] [place] [address] Assigned Heart and Vascular Provider 01/20/21 07/20/21 Yasmeen Pendleton [facility] [address] [place] [address] Pharmacist Pharmacist 06/04/21 01/15/22 Cole George LISW Lead Instructional Technology Facilitator 06/13/21 10/07/21 Fletcher Up Community Health Worker 06/13/21 09/12/21 Bautista Casey MD [address] [place] [address] Assigned Heart and Vascular Provider 07/21/21 01/16/23 Jasmyn Oliver CHW Community Health Worker 09/13/21 10/07/21 Yasmeen Pendleton [facility] [address] [place] [address] Assigned MTM Pharmacist 03/22/22 01/02/23 documented as of this encounter
--- OUTSIDE RECORDS SUMMARY | 2025-04-14 00:46 | XMS_ITS | Encounter Summary ---
Author Organization [place] Address [address] [place] [address] Care Team Providers Care Quilting Machine Operator Name Role Phone Cortez Lu MD Primary Care Provider [phone] Niko Resendiz MD Primary Care Provider Carlie Mac MD Primary Care Provide r Angella Mendieta MD Primary Care Provider Julito Banuelos MD Primary Care Provider [phone] Julito Banuelos MD Unavailable Julito Banuelos MD Unavailable Aleshia Henriquez RD Unavailable Unavailable Mary Kay Jones [facility] Unavailable Unavailable Susannah Blankenship [facility] Unavailable [phone] Carolyn Huynh [facility] Unavailable [phone] Vika Kevin APRN RETORT FIRER Unavailable + Marilyn Willard MD Unavailable [phone] Carie Varela DO Unavailable [phone] Maylin May NP Unavailable [phone] Marisa Rodrigues RN Unavailable Unavailable Vilma Long MD Unavailable + [phone] Yasmeen Pendleton [facility] Unavailable + [phone] Cole George Unavailable Fletcher Russell Unavailable Unavailable Bautista MD Unavailable [phone] Jasmyn Oliver [facility] Unavailable [phone] Vika Kevin APRN [facility] Primary Care Prov ider Vika Kevin APRN [facility] Primary Care Prov ider Yasmeen Pendleton [facility] Unavailable + [phone] Vika [facility] Primary Care Prov ider Encounter Details Date Type Department Care Team (Late st Contact Info) Description 04/22/2013 Office Visit-[facility] Heart [address] [place] [address] Reji Davis MD [address] [place], [place] [id number] Social History Tobacco Use Types Packs/Day Years Used Date Smoking Tobacco: Former Cigarettes 0.3 15 0 10/26/1961 - 10/26/1976 Smokeless Tobacco: Never Alcohol Use Standard Drinks/Week Comments Yes 0 (1 standard drink = 0.6 oz pur e alcohol) 1-2 glasses of wine weekly Comments No Sex and Gender Information Value Date Recorded Sex Assigned at Not on file Legal 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 MILLER ROD MILL Gender Identity Not on file Sexual Orientation Not on file Occupation Industry Job Start Date Job End Date Not on file Not on file Not on file Not on file documented as of this encounter Progress Notes * Reji Dvais MD - 04/26/2013 1:24 PM CDT Progress Note Created by: Reji Davis MD #[id number] DATE: 04/22/2013 MARIALUISA COSBY DATE OF : 1940 AGE: [age] years old Referring Physician: CORTEZ LU Referring Clinic: [facility] CURRENT DIAGNOSES 1. Diabetes Sqtkhvle-Puh-Qxctnqf Dependent, 250.00 2. - Hyperlipidemia mixed, 272.2 [...] daily 12. Nasacort AQ 55 mcg Aerosol, Percy, Take as Directed 13. Plavix 75 mg [...] of 2012 at [facility] in [place], [place] following presentation for non-ST segment elevation NC. I last saw her inApril of this [...] Leg syndrome Past Cardiac Illnesses: CAD, s/p NC Surgeries/Procedures - General: hysterectomy Cardiac/Vasc Procedures-Invasive: left heart cath 12/2012 ([place]) Cardiology Procedures-NonInvasive: echocardiogram Jun 2007, myocardial perfusion (Nuc) Jun 2007, echo 12/2012 ([place]), stress echo February 2013 Cardiac Cath Results: 12/2012 [place] NELIA to the mid and prox [...] - lives with and been living in [place] for 3 months; Place of - [place]; REVIEW OF SYSTEMS GENERAL fatigue, weight loss, [...] takes allergy shots, allergies get worse in [place] but they can get bad in [place] too PHYSICAL EXAMINATION VITAL SIGNS: Blood Pressure: [...] symptoms similar to what she had in [place] then I will need to see her [...] Out COVID-19 12/04/2020 12/04/2020 12/05/2020 6:04 PM MILLER ROD MILL documented as of this encounter Care Teams Quilting Machine Operator Relationship Specialty Start Date End Date Cortez Lu MD XXX RETIRED XXX [address] [place] [phone] PCP - General 12/10/01 01/10/14 Niko Resendiz MD [address] [place] [address] PCP - General Internal Medicine 01/11/14 01/29/14 Carlie Mac MD [address] [place] [address] PCP - General Pediatrics 01/30/14 07/17/[address] [facility] [place] [address] PCP - General Family Practice 07/18/15 09/11/15 Julito Banuelos MD [address] [place] [address] PCP - General Family Practice 09/12/15 09/23/21 Julito Banuelos MD [address] [place] [address] PCP - Assigned PCP 02/17/16 12/28/18 Vika Kevin APRN RETORT FIRER [address] [place] [address]897 PCP - General Nurse Practitioner - Family 09/24/21 03/05/22 Vika Kevin APRN RETORT FIRER [address] [place] [address]245 PCP - General Nurse Practitioner - Family 03/18/22 06/18/22 Vika Kevin APRN RETORT FIRER [address] [place] [address]95 PCP - General Nurse Practitioner - Family 07/24/22 Julito Banuelos MD [address] [place] [address]209 Assigned PCP 02/17/16 07/21/[address] [place] [address] Geriatric Assistant Dietitian, Registered 04/14/19 Mary Kay Jones [facility] [place] 08/01/19 04/20/20 Susannah Blankenship [facility] [address] [facility] [address] [place] [address] Pharmacist Pharmacist 08/08/19 04/15/21 Carolyn Huynh [facility] [address] [place] [address] Pharmacist Pharmacist 06/25/20 04/15/21 Vika Kevin, JAIME RETORT FIRER [address] [place] [address] 288812 Assigned PCP 07/22/20 11/16/24 Marilyn Willard MD 420 [facility] [address] [place], [place] [address] Assigned Surgical Provider 08/17/20 08/16/24 Carie Varela DO [address] [place] [address] Assigned Heart and Vascular Provider 08/17/20 01/19/21 Maylin May NP [address] [place], [place] [phone] Assigned Pediatric Specialist Provider 12/16/20 06/13/22 Marisa Rodrigues, RN Clinic Belt Tender 01/15/21 02/26/21 Vilma Long MD [address] [place] [address] Assigned Heart and Vascular Provider 01/20/21 07/20/21 Yasmeen Pendleton [facility] [address] [place], [place] [address] Pharmacist Pharmacist 06/04/21 01/15/22 Cole George LISW Lead Belt Tender 06/13/21 10/07/21 Fletcher Up Community Health Worker 06/13/21 09/12/21 Bautista Casey MD [address] [place], [place] [address] Assigned Heart and Vascular Provider 07/21/21 01/16/23 Jasmyn Oliver CHW Community Health Worker 09/13/21 10/07/21 Yasmeen Pendleton [facility] [address] [place] [address] Assigned MTM Pharmacist 03/22/22 01/02/23 documented as of this encounter
--- OUTSIDE RECORDS SUMMARY | 2025-04-14 00:46 | XMS_ITS | Encounter Summary ---
Author Organization [place] Address [address] [facility] [place] [address] Care Team Providers Care Bicycle Fitter Name Role Phone Andrew Lu MD Primary Care Provider [phone] Niko Resendiz MD Primary Care Provider Carlie Mac MD Primary Care Provide r Angella Mendieta MD Primary Care Provider Julito Banuelos MD Primary Care Provider [phone] Julito Banuelos MD Unavailable Julito Banuelos MD Unavailable Aleshia Henriquez RD Unavailable Unavailable Mary Kay Jones [facility] Unavailable Unavailable Susannah Blankenship [facility] Unavailable [phone] Carolyn Huynh [facility] Unavailable +[phone] Vika Kevin APRN ENDOCRINOLOGY PHYSICIAN Unavailable + Marilyn Willard MD Unavailable [phone] Carie Varela DO Unavailable [phone] Maylin May NP Unavailable [phone] Marisa Rodrigues RN Unavailable Unavailable Vilma Long MD Unavailable + [phone] Yasmeen Pendleton [facility] Unavailable [phone] Cole George Unavailable Fletcher Russell Unavailable Unavailable Bautista Casey MD Unavailable DemetriusJasmyn wright [facility] Unavailable [phone] Vika Kevin APRN [facility] Primary Care Prov ider Vika Kevin APRN [facility] Primary Care Prov ider Yasmeen Pendleton [facility] Unavailable Vika [facility] Primary Care Prov ider Encounter Details Date Type Department Care Team (Late st Contact Info) Description 11/07/2012 MyC Medical Advice [address] [phone] Andrew Lu MD XXX RETIRED XXX [address] [phone] Social History Tobacco Use Types Packs/Day Years Used Date Smoking Tobacco: Former Cigarettes 0.3 15 0 10/26/1961 - 10/26/1976 Smokeless Tobacco: Never Alcohol Use Standard Drinks/Week Comments Yes 0 (1 standard drink = 0.6 oz pur e alcohol) 1-2 glasses of wine weekly Comments No Sex and Gender Information Value Date Recorded Sex Assigned at Not on file Legal 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 BILINGUAL INSIDE SALES REPRESENTATIVE Gender Identity Not on file Sexual [...] Out COVID-19 12/04/2020 12/04/2020 12/05/2020 6:04 PM BILINGUAL INSIDE SALES REPRESENTATIVE documented as of this encounter Care Teams Bicycle Fitter Relationship Specialty Start Date End Date Andrew Lu MD XXX RETIRED XXX [address] [place] [phone] PCP - General 12/10/01 01/10/14 Niko Resendiz MD [address] [place] [address] PCP - General Internal Medicine 01/11/14 01/29/14 Carlie Mac MD [address] [place] [address] PCP - General Pediatrics 01/30/14 07/17/15 Angella Mendieta MD [address] [place] [address] PCP - General Family Practice 07/18/15 09/11/15 Julito Banuelos MD [address] [place] [address]68 PCP - General Family Practice 09/12/15 09/23/21 Julito Banuelos MD [address] [place] [address] 36861 PCP - Assigned PCP 02/17/16 12/28/18 Vika Kevin APRN ENDOCRINOLOGY PHYSICIAN [address] [place] [address] PCP - General Nurse Practitioner - Family 09/24/21 03/05/22 Vika Kevin APRN ENDOCRINOLOGY PHYSICIAN [address] [place] [address]250 PCP - General Nurse Practitioner - Family 03/18/22 06/18/22 Vika Kevin, JAIME ENDOCRINOLOGY PHYSICIAN [address] [place] [address] 999462 PCP - General Nurse Practitioner - Family 07/24/22 Julito Banuelos MD [address] [place] [address] 404722 Assigned PCP 02/17/16 07/21/[address] [place] [address]67 Patient Relations Specialist Dietitian, Registered 04/14/19 Mary Kay Jones, [facility] Pharmacist 08/01/19 04/20/20 Susannah Blankenship, [facility] [address] [facility] [address] [place], [place] [address] Pharmacist Pharmacist 08/08/19 04/15/21 Carolyn Huynh, [facility] [address] [place], [place] [address] Pharmacist Pharmacist 06/25/20 04/15/21 Vika Kevin, JAIME ENDOCRINOLOGY PHYSICIAN [address] [place] [address] 819362 Assigned PCP 07/22/20 11/16/24 Marilyn Willard MD 420 [facility] [address] [place], [place] [address] Assigned Surgical Provider 08/17/20 08/16/24 Carie Varela DO [address] [place] [address] Assigned Heart and Vascular Provider 08/17/20 01/19/21 Maylin May NP [address] [place] [address] Assigned Pediatric Specialist Provider 12/16/20 06/13/22 Marisa Rodrigues, RN Clinic Vegetable Grower 01/15/21 02/26/21 Vilma Long MD [address] [place] [address] Assigned Heart and Vascular Provider 01/20/21 07/20/21 Yasmeen Pendleton [facility] [address] [place] [address] Pharmacist Pharmacist 06/04/21 01/15/22 Cole George LISW Lead Vegetable Grower 06/13/21 10/07/21 Fletcher Up Community Health Worker 06/13/21 09/12/21 Bautista Casey MD [address] [place] [address] Assigned Heart and Vascular Provider 07/21/21 01/16/23 Jasmyn Oliver CHW Community Health Worker 09/13/21 10/07/21 Yasmeen Pendleton [facility] [address] [place] [address] Assigned MTM Pharmacist 03/22/22 01/02/23 documented as of this encounter
--- OUTSIDE RECORDS SUMMARY | 2025-04-14 00:46 | XMS_ITS | Encounter Summary ---
Author Organization [place] Address [address] [facility] [place] [address] Care Team Providers Care Baggage Porter Name Role Phone Julito Banuelos MD Primary Care Provider [phone] Julito Banuelos MD Unavailable Aleshia [address]quez [address] Unavailable Unavailable Mary Kay Jones [facility] Unavailable Unavailable Susannah Blankenship [facility] Unavailable Carolyn Huynh [facility] Unavailable [phone] Vika Kevin APRN METAL DOOR ASSEMBLER Unavailable + Marilyn Willard MD Unavailable Carie Varela DO Unavailable [phone] Maylin May NP Unavailable [phone] Marisa Hernandez RN Unavailable Unavailable Vilma Long MD Unavailable Yasmeen Pendleton [facility] Unavailable Cole George Unavailable Fletcher Russell Unavailable Unavailable Bautista Casey MD Unavailable Jamsyn Oliver CH[facility] Unavailable [phone] Vika Kevin APRN METAL DOOR ASSEMBLER Primary Care Prov ider Vika Kevin APRN [facility] Primary Care Prov ider aYsmeen Pendleton [facility] Unavailable [phone] Vika Kevin APRN [facility] Primary Care Prov ider Reason for Visit * Reason Onset Date Comments Refill Request 09/11/2019 Encounter Details Date Type Department Care Team (Late st Contact Info) Description 09/11/2019 MyC Refill [address] [place] [address] Julito Banuelos MD [address] [place] [address] Refill Request Social History Tobacco [...] on file Legal 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 FIRE SAFETY DIRECTOR Gender Identity Not on file Sexual Orientation Not on file Occupation Industry Job Start Date Job End Date Not on file Not on file Not on file Not on file documented as of this encounter Miscellaneous Notes * Telephone Encounter - Shanelle Corona RN - 09/13/2019 11:06 AM FIRE SAFETY DIRECTOR This was discontinued due to side effects. Sent mychart to patient asking if she is still taking. Ruth Muñoz RN [facility] [phone] SAFETY DIRECTOR * Telephone Encounter - Sandra Jesús - 09/12/2019 9:28 AM CST Requested Prescriptions Pending Prescriptions Disp Refills ??? donepezil (ARICEPT) 5 MG tablet Last Written Prescription Date: 08.08.19 Last Fill Quantity: 30 tablet, # refills: 3 Last office visit: 08/08/2019 with prescribing provider: Julito Banuelos MD Future Office Visit: Next 5 appointments (look out 90 days) Sep 12, 2019 2:00 PM FIRE SAFETY DIRECTOR SHORT with Susannah Blankenship [facility] ([facility]) [address] [facility] [address] [facility] [phone] Sep 23, 2019 10:50 AM FIRE SAFETY DIRECTOR Office Visit with Julito Banuelos MD [facility] [address] [place] [phone] 30 tablet 3 Sig: Take 1 tablet [...] is 18 years of age or older SAFETY DIRECTOR documented in this encounter Plan of Treatment Not on file documented as of this encounter Visit Diagnoses Diagnosis 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) documented in this encounter Additional Health Concerns Infection Onset Date Last Indicated Resolved Time Rule Out COVID-19 07/25/2020 07/25/2020 07/26/2020 3:02 PM CDT Rule Out COVID-19 12/04/2020 12/04/2020 12/05/2020 6:04 PM FIRE SAFETY DIRECTOR Assessment Noted Time PHQ-9 Depression Total Score: 8 07/18/20 19 12:06 PM CDT documented as of this encounter Care Teams Baggage Porter Relationship Specialty Start Date End Date Julito Banuelos MD [address] [place] [address] 077702 PCP - General Family Practice 09/12/15 09/23/21 Vika Kevin APRN METAL DOOR ASSEMBLER [address] [place] [address] 576632 PCP - General Nurse Practitioner - Family 09/24/21 03/05/22 Vika Kevin APRN METAL DOOR ASSEMBLER [address] [place] [address]75 PCP - General Nurse Practitioner - Family 03/18/22 06/18/22 Vika Kevin APRN METAL DOOR ASSEMBLER [address] [place] [address] 557142 PCP - General Nurse Practitioner - Family 07/24/22 Julito Banuelos MD [address] [place] [address] 094222 Assigned PCP 02/17/16 07/21/[address] [place] [address] Facility Rehab Director Dietitian, Registered 04/14/19 Mary Kay Jones, [facility] Pharmacist 08/01/19 04/20/20 Susannah Blankenship, [facility] [address] [place] [address] [address] [place] [address] Pharmacist Pharmacist 08/08/19 04/15/21 Carolyn Huynh [facility] [address] [place] [address] Pharmacist Pharmacist 06/25/20 04/15/21 Vika Kevin APRN METAL DOOR ASSEMBLER [address] [place] [address] Assigned PCP 07/22/20 11/16/24 Marilyn Willard MD 420 [facility] [address] [place] [address] Assigned Surgical Provider 08/17/20 08/16/24 Carie Varela DO [address] [place] [address] Assigned Heart and Vascular Provider 08/17/20 01/19/21 Maylni May NP [address] [place] [address] Assigned Pediatric Specialist Provider 12/16/20 06/13/22 Marisa Rodrigues, RN Clinic Type Copyist 01/15/21 02/26/21 Vilma Long MD [address] [place] [address] Assigned Heart and Vascular Provider 01/20/21 07/20/21 Yasmeen Pendleton [facility] [address] [place] [address] Pharmacist Pharmacist 06/04/21 01/15/22 Cole George LISW Lead Type Copyist 06/13/21 10/07/21 Fletcher Up Community Health Worker 06/13/21 09/12/21 Bautista Casey MD [address] [place] [address] Assigned Heart and Vascular Provider 07/21/21 01/16/23 Jasmyn Oliver CHW Community Health Worker 09/13/21 10/07/21 Yasmeen Pendleton [facility] [address] [place] [address] Assigned MTM Pharmacist 03/22/22 01/02/23 documented as of this encounter
--- OUTSIDE RECORDS SUMMARY | 2025-04-14 00:46 | XMS_ITS | Encounter Summary ---
Author Organization [place] Address [address] [facility] [place] [address] Care Team Providers Care Rv Parts And Service Director Name Role Phone Andrew Lu MD Primary Care Provider [phone] Niko Resendiz MD Primary Care Provider Carlie Mac MD Primary Care Provide r Angella Mendieta MD Primary Care Provider Juilto Banuelos MD Primary Care Provider [phone] Julito Banuelos MD Unavailable Julito Banuelos MD Unavailable Aleshia [address]quez [address] Unavailable Unavailable Mary Kay Jones [facility] Unavailable Unavailable Susannah Blankenship [facility] Unavailable [phone] Carolyn Huynh [facility] Unavailable [phone] Vika Kevin APRN COMMUNICATIONS OFFICER Unavailable + Marilyn Willard MD Unavailable [phone] Carie Varela DO Unavailable [phone] Maylin May NP Unavailable [phone] Marisa Rodrigues RN Unavailable Unavailable Vilma Long MD Unavailable + [phone] Yasmeen Pendleton [facility] Unavailable + [phone] Cole George Unavailable Fletcher Russell Unavailable Unavailable Bautista Casey MD Unavailable DemetriusJasmyn wright [facility] Unavailable [phone] Vika Kevin APRN [facility] Primary Care Prov ider Vika Kevin APRN [facility] Primary Care Prov ider Yasmeen Pendleton [facility] Unavailable + [phone] Vika Kevin APRN [facility] Primary Care Prov ider Encounter Details Date Type Department Care Team (Late st Contact Info) Description 09/28/[address] [phone] Veronica [facility] Social History Tobacco Use Types Packs/Day Years Used Date Smoking Tobacco: Former Cigarettes 0.3 15 0 10/26/1961 - 10/26/1976 Smokeless Tobacco: Never Alcohol Use Standard Drinks/Week Comments Yes 0 (1 standard drink = 0.6 oz pur e alcohol) 1-2 glasses of wine weekly Comments No Sex and Gender Information Value Date Recorded Sex Assigned at Not on file Legal 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 FOREIGN FOOD SPECIALTY COOK Gender Identity Not on file Sexual Orientation [...] Out COVID-19 12/04/2020 12/04/2020 12/05/2020 6:04 PM FOREIGN FOOD SPECIALTY COOK documented as of this encounter Care Teams Rv Parts And Service Director Relationship Specialty Start Date End Date Andrew Lu MD XXX RETIRED XXX [address] [place] [phone] PCP - General 12/10/01 01/10/14 Niko Resendiz MD [address] [place] [address] PCP - General Internal Medicine 01/11/14 01/29/14 Carlie Mac MD [address] [place] [address] PCP - General Pediatrics 01/30/14 07/17/15 Angella Mendieta MD [address] [place] [address] PCP - General Family Practice 07/18/15 09/11/15 Julito Banuelos MD [address] [place] [address] PCP - General Family Practice 09/12/15 09/23/21 Julito Banuelos MD [address] [place] [address] 67345 PCP - Assigned PCP 02/17/16 12/28/18 Vika Kevin APRN COMMUNICATIONS OFFICER [address] [place] [address] 35821 PCP - General Nurse Practitioner - Family 09/24/21 03/05/22 Vika Kevin APRN COMMUNICATIONS OFFICER [address] [place] [address] PCP - General Nurse Practitioner - Family 03/18/22 06/18/22 Vika Kevin APRN COMMUNICATIONS OFFICER [address] [place] [address] 512072 PCP - General Nurse Practitioner - Family 07/24/22 Julito Banuelos MD [address] [place] [address] 884232 Assigned PCP 02/17/16 07/21/[address] [place] [address] Qa Internship Dietitian, Registered 04/14/19 Mary Kay Jones, [facility] Pharmacist 08/01/19 04/20/20 [facility] [address] [place] [address] 812 [place], [place] 9[address]35 Pharmacist Pharmacist 08/08/19 04/15/21 [facility] [address] [place], [place] 77[address] Pharmacist Pharmacist 06/25/20 04/15/21 Vika Kevin APRN COMMUNICATIONS OFFICER [address] [place] [address] 425002 Assigned PCP 07/22/20 11/16/24 Marilyn Willard MD [address] [place] [address] 394 [place] [address] Assigned Surgical Provider 08/17/20 08/16/24 Carie Varela DO [address] [place], [place] [address] Assigned Heart and Vascular Provider 08/17/20 01/19/21 Maylin May NP [address] [place] [phone] Assigned Pediatric Specialist Provider 12/16/20 06/13/22 Marisa Rodrigues, RN Clinic Field Sales Executive 01/15/21 02/26/21 Vilma Long MD [address] [place] [address] Assigned Heart and Vascular Provider 01/20/21 07/20/21 [facility] [address] [place] [address] Pharmacist Pharmacist 06/04/21 01/15/22 Cole George LISW Lead Field Sales Executive 06/13/21 10/07/21 Fletcher Up Community Health Worker 06/13/21 09/12/21 Bautista Casey MD [address] [place] [address] Assigned Heart and Vascular Provider 07/21/21 01/16/23 Jasmyn Oliver CHW Community Health Worker 09/13/21 10/07/21 [facility] [address] [place] [address] 258845 Assigned MTM Pharmacist 03/22/22 01/02/23 documented as of this encounter
--- OUTSIDE RECORDS SUMMARY | 2025-04-14 00:46 | XMS_ITS | Encounter Summary ---
Author Organization [place] Address [address] [facility] [place] [address] Care Team Providers Care Automotive Fuel Injection Servicer Name Role Phone Julito Banuelos MD Primary Care Provider [phone] Julito Banuelos MD Unavailable Aleshia Henriquez RD Unavailable Unavailable Mary Kay Jones [facility] Unavailable Unavailable Susannah Blankenship [facility] Unavailable Carolyn Huynh [facility] Unavailable [phone] Vika Kevin APRN ENDOSCOPY TECHNICIAN Unavailable + Marilyn Willard MD Unavailable Carie Varela DO Unavailable [phone] Maylin May NP Unavailable [phone] Marisa Hernandez RN Unavailable Unavailable Vilma Long MD Unavailable Yasmeen Pendleton [facility] Unavailable Cole George Unavailable Fletcher Russell Unavailable Unavailable Bautista Casey MD Unavailable Jasmyn Oliver [facility] Unavailable [phone] Vika Kevin APRN ENDOSCOPY TECHNICIAN Primary Care Prov ider Vika Kevin APRN, CNP Primary Care Prov ider Yasmeen Pendleton [facility] Unavailable [phone] Vika Kevin APRN ENDOSCOPY TECHNICIAN Primary Care Prov ider Encounter Details Date Type Department Care Team (Late st Contact Info) Description 08/01/2019 MyC Medical Advice [address] [place] [phone] Mary Kay Jones, [facility] on file Legal 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 TOWER EQUIPMENT REPAIRER Gender Identity Not on file Sexual Orientation [...] Out COVID-19 12/04/2020 12/04/2020 12/05/2020 6:04 PM TOWER EQUIPMENT REPAIRER Assessment Noted Time PHQ-9 Depression Total Score: 8 07/18/20 19 12:06 PM CDT documented as of this encounter Care Teams Automotive Fuel Injection Servicer Relationship Specialty Start Date End Date Julito Banuelos MD [address] [place] [address] 36267 PCP - General Family Practice 09/12/15 09/23/21 Vika Kevin APRN [facility] [address] [place] [address] 82100 PCP - General Nurse Practitioner - Family 09/24/21 03/05/22 Vika Kevin APRN ENDOSCOPY TECHNICIAN [address] [place] [address] 01572 PCP - General Nurse Practitioner - Family 03/18/22 06/18/22 Vika Kevin APRN ENDOSCOPY TECHNICIAN [address] [place] [address] [phone] PCP - General Nurse Practitioner - Family 07/24/22 Julito Banuelos MD [address] [place] [address] 678952 Assigned PCP 02/17/16 07/21/[address] [place] [address] 6[address]20 Call Center Supervisor Dietitian, Registered 04/14/19 Mary Kay Jones, [facility] Pharmacist 08/01/19 04/20/20 Susannah Blankenship, [facility] [address] [place] [address] 8[address] [place] [address] Pharmacist Pharmacist 08/08/19 04/15/[address] [facility] [address] [place], [place] [address] Pharmacist Pharmacist 06/25/20 04/15/21 Vika Kevin APRN ENDOSCOPY TECHNICIAN [address] [place] [address] 42050 Assigned PCP 07/22/20 11/16/24 Marilyn Willard MD [address] [facility] [address] [place] [address] Assigned Surgical Provider 08/17/20 08/16/24 Carie Varela DO [address] [place] [address] Assigned Heart and Vascular Provider 08/17/20 01/19/21 Maylin May, JENNY [address] [place], [place] [phone] Assigned Pediatric Specialist Provider 12/16/20 06/13/22 Marisa Rodrigues RN Clinic Steam Shovel Oiler 01/15/21 02/26/21 Vilma Long MD [address] [place] [address] Assigned Heart and Vascular Provider 01/20/21 07/20/[address] [facility] [address] [place] [address] Pharmacist Pharmacist 06/04/21 01/15/22 Cole George LISW Lead Steam Shovel Oiler 06/13/21 10/07/21 Fletcher Up Community Health Worker 06/13/21 09/12/21 Bautista Casey MD [address] [place] [address] Assigned Heart and Vascular Provider 07/21/21 01/16/23 Jasmyn Oliver CHW Community Health Worker 09/13/21 10/07/[address] [facility] [address] [place] [address] Assigned MTM Pharmacist 03/22/22 01/02/23 documented as of this encounter
--- OUTSIDE RECORDS SUMMARY | 2025-04-14 00:47 | XMS_ITS | Encounter Summary ---
Author Organization [place] Address [address] [facility] [address] Care Team Providers Care Wood Lathe Operator Name Role Phone Carlie Mac MD Primary Care Provide r Angella Mendieta MD Primary Care Provider Julito Banuelos MD Primary Care Provider Julito Banuelos MD Unavailable Julito Banuelos MD Unavailable Aleshia Henriquez RD Unavailable Unavailable Mary Kay Jones [facility] Unavailable Unavailable Susannah Blankenship [facility] Unavailable [phone] Carolyn Huynh [facility] Unavailable Vika Kevin APRN SPINNING FRAME CLEANER Unavailable + Marilyn Willard MD Unavailable Carie Varela DO Unavailable Maylin May NP Unavailable [phone] Marisa Hernandez RN Unavailable Unavailable Vilma Long MD Unavailable Yasmeen Pendleton [facility] Unavailable Cole George Unavailable Fletcher Russell Unavailable Unavailable IpBautista MD Unavailable [phone] Jasmyn Oliver [facility] Unavailable [phone] Vika Kevin APRN [facility] Primary Care Prov ider Vika Kevin APRN [facility] Primary Care Prov ider Yasmeen Pendleton [facility] Unavailable [phone] Vika Kevin APRN [facility] Primary Care Prov ider Reason for Visit * Reason Onset Date Comments Other 09/30/2014 [facility] Encounter Details Date Type Department Care Team (Late st Contact Info) Description 09/30/2014 MyC Medical Advice [address] [address] Carlie Mac MD [address] [place] [address] Other ([facility] Social History Tobacco Use Types Packs/Day [...] on file Legal 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 BAD CLOTH CHECKER Gender Identity Not on file Sexual [...] Out COVID-19 12/04/2020 12/04/2020 12/05/2020 6:04 PM BAD CLOTH CHECKER documented as of this encounter Care Teams Wood Lathe Operator Relationship Specialty Start Date End Date Carlie Mac MD [address] [place], [place] [phone] PCP - General Pediatrics 01/30/14 07/17/15 Angella Mendieta MD [address] [place] [address]703 PCP - General Family Practice 07/18/15 09/11/15 Julito Banuelos MD [address] [place] [address] 105212 PCP - General Family Practice 09/12/15 09/23/21 Julito Banuelos MD [address] [place] [address] 984242 PCP - Assigned PCP 02/17/16 12/28/18 Vika Kevin APRN SPINNING FRAME CLEANER [address] [place] [address] 13165 PCP - General Nurse Practitioner - Family 09/24/21 03/05/22 Vika Kevin APRN SPINNING FRAME CLEANER [address] [place] [address] 33582 PCP - General Nurse Practitioner - Family 03/18/22 06/18/22 Vika Kevin APRN SPINNING FRAME CLEANER [address] [place] [address] 22494 PCP - General Nurse Practitioner - Family 07/24/22 Julito Banuelos MD [address] [place] [address] [phone] Assigned PCP 02/17/16 07/21/[address] [place] [address] [place] [address] Rail Setter Dietitian, Registered 04/14/19 Mary Kay Jones, [facility] Pharmacist 08/01/19 04/20/20 Susannah Blankenship, [facility] [address] [facility] [address] [place], [place] [address] Pharmacist Pharmacist 08/08/19 04/15/21 Carolyn Huynh [facility] [address] [place], [place] [address] Pharmacist Pharmacist 06/25/20 04/15/21 Vika Kevin APRN SPINNING FRAME CLEANER [address] [place] [address] 145582 Assigned PCP 07/22/20 11/16/24 Marilyn Willard MD [address] [place] [address] [address] [place], [place] [address] Assigned Surgical Provider 08/17/20 08/16/24 Carie Varela DO [address] [place], [place] [address] Assigned Heart and Vascular Provider 08/17/20 01/19/21 Maylin May NP [address] [place], [place] [id number] Assigned Pediatric Specialist Provider 12/16/20 06/13/22 Marisa Rodrigues, RN Clinic Dramatic Art Teacher 01/15/21 02/26/21 Vilma Long MD [address] [place] [address] Assigned Heart and Vascular Provider 01/20/21 07/20/21 Yasmeen Pendleton, [facility] [address] [place], [place] [address] Pharmacist Pharmacist 06/04/21 01/15/22 Cole George LISW Lead Dramatic Art Teacher 06/13/21 10/07/21 Fletcher Up Community Health Worker 06/13/21 09/12/21 Bautista Casey MD [address] [place] [address] Assigned Heart and Vascular Provider 07/21/21 01/16/23 Jasmyn Oliver [facility] Community Health Worker 09/13/21 10/07/21 Yasmeen Pendleton [facility] [address] [place] [address] Assigned MTM Pharmacist 03/22/22 01/02/23 documented as of this encounter
--- OUTSIDE RECORDS SUMMARY | 2025-04-14 00:47 | XMS_ITS | Encounter Summary ---
Author Organization [place] Address [address] [facility] [place] [address] Care Team Providers Care Examination Proctor Name Role Phone Julito Banuelos MD Primary Care Provider [phone] Unavailable Unavailable Susannah Blankenship [facility] Unavailable [phone] Carolyn Huynh [facility] Unavailable [phone] Vika Kevin APRN [facility] Unavailable + Marilyn Willard MD Unavailable [phone] Carie Varela DO Unavailable [phone] Maylin May NP Unavailable [phone] Marisa Hernandez RN Unavailable Unavailable Vilma Long MD Unavailable + [phone] Yasmeen Pendleton [facility] Unavailable Cole George Unavailable Fletcher Russell Unavailable Unavailable Bautista Casey MD Unavailable [phone] Jasmyn Oliver Unavailable [phone] Vika Kevin APRN [facility] Primary Care Prov ider Vika Kevin APRN [facility] Primary Care Prov ider Yasmeen Pendleton [facility] Unavailable [phone] Vika Kevin APRN HUMAN RESOURCES HR GENERALIST Primary Care Prov ider Encounter Details Date Type Department Care Team (Late st Contact Info) Description 01/07/2021 MyC Medical Advice [facility] [address] [facility] [address] [place] [address] [facility] [address] [place] [address] Social History Tobacco Use Types [...] on file Legal 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 STEAM 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 Gender Identity Not on file Sexual Orientation [...] Depression Total Score: 10 020 9:30 AM STEAM SHOVELMAN documented as of this encounter Care Teams Examination Proctor Relationship Specialty Start Date End Date Julito Banuelos MD [address] [place] [address]336 PCP - General Family Practice 09/12/15 09/23/21 Vika Kevin APRN HUMAN RESOURCES HR GENERALIST [address] [place] [address] 32745 PCP - General Nurse Practitioner - Family 09/24/21 03/05/22 Vika Kevin APRN HUMAN RESOURCES HR GENERALIST [address] [place] [address] 48591 PCP - General Nurse Practitioner - Family 03/18/22 06/18/22 Vika Kevin, JAIME HUMAN RESOURCES HR GENERALIST [address] [place] [address] 98114 PCP - General Nurse Practitioner - Family 07/24/[address] [place] [address] Cash Shortage Investigator Dietitian, Registered 04/14/19 Susannah Blankenship, [facility] [address] [place] [address] 812 [place] [address] Pharmacist Pharmacist 08/08/19 04/15/21 Carolyn Huynh [facility] [address] [place] [address] Pharmacist Pharmacist 06/25/20 04/15/21 Vika Kevin, JAIME HUMAN RESOURCES HR GENERALIST [address] [place] [address] Assigned PCP 07/22/20 11/16/24 Marilyn Willard MD [address] [place] [address] 394 [place] [address] Assigned Surgical Provider 08/17/20 08/16/24 Carie Varela DO [address] [place] [address] Assigned Heart and Vascular Provider 08/17/20 01/19/21 Maylin May NP [address] [place] [address] Assigned Pediatric Specialist Provider 12/16/20 06/13/22 Marisa Rodrigues, RN Clinic Machine Shop Repair Technician 01/15/21 02/26/21 Vilma Long MD [address] [place] [address] Assigned Heart and Vascular Provider 01/20/21 07/20/21 [facility] [address] [place] [address] 654655 Pharmacist Pharmacist 06/04/21 01/15/22 Cole George LISW Lead Machine Shop Repair Technician 06/13/21 10/07/21 Fletcher Up Community Health Worker 06/13/21 09/12/21 Bautista Casey MD [address] [place] [address] Assigned Heart and Vascular Provider 07/21/21 01/16/23 Jasmyn Oliver CHW Community Health Worker 09/13/21 10/07/21 Yasmeen Pendleton [facility] [address] [place] [address] Assigned MTM Pharmacist 03/22/22 01/02/23 documented as of this encounter
--- OUTSIDE RECORDS SUMMARY | 2025-04-14 00:47 | XMS_ITS | Encounter Summary ---
Author Organization [place] Address [address] [place] [address] Care Team Providers Care Heel Turner Name Role Phone Andrew Lu MD Primary Care Provider [phone] Niko Resendiz MD Primary Care Provider Carlie Mac MD Primary Care Provide r Angella Mendieta MD Primary Care Provider Julito Banuelos MD Primary Care Provider [phone] Julito Banuelos MD Unavailable Julito Banuelos MD Unavailable Aleshia Henriquez RD Unavailable Unavailable Mary Kay Jones [facility] Unavailable Unavailable Susannah Blankenship [facility] Unavailable [phone] Carolyn Huynh [facility] Unavailable [phone] Vika Kevin APRN FIRE EQUIPMENT OPERATOR Unavailable + Marilyn Willard MD Unavailable [phone] Carie Varela DO Unavailable [phone] Maylin May NP Unavailable [phone] Marisa Rodrigues RN Unavailable Unavailable Vilma Long MD Unavailable + [phone] Yasmeen Pendleton [facility] Unavailable [phone] Cole George Unavailable Fletcher Russell Unavailable Unavailable Bautista Casey MD Unavailable DemetriusJasmyn wright [facility] Unavailable [phone] Vika Kevin APRN [facility] Primary Care Prov ider Vika Kevin APRN [facility] Primary Care Prov ider Yasmeen Pendleton [facility] Unavailable [facility] Primary Care Prov ider Reason for Visit * Reason Onset Date Comments Refill Request 01/06/2011 Encounter Details Date Type Department Care Team (Late st Contact Info) Description 01/06/[address] [address] Andrew Lu MD XXX RETIRED XXX [address] [place] [address] Refill Request Social History Tobacco Use Types Packs/Day Years Used Date Smoking Tobacco: Former Cigarettes 0.3 15 0 10/26/1961 - 10/26/1976 Alcohol Use Standard Drinks/Week Comments Yes 0 (1 standard drink = 0.6 oz pur e alcohol) 1 wine 2x qweek Comments No Sex and Gender Information Value Date Recorded Sex Assigned at Not on file Legal 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 BUSINESS SUPPORT ADMINISTRATOR Gender Identity Not on file Sexual [...] Out COVID-19 12/04/2020 12/04/2020 12/05/2020 6:04 PM BUSINESS SUPPORT ADMINISTRATOR documented as of this encounter Care Teams Heel Turner Relationship Specialty Start Date End Date Andrew Lu MD XXX RETIRED XXX [address] [place] [phone] PCP - General 12/10/01 01/10/14 Niko Resendiz MD [address] [place] [address] PCP - General Internal Medicine 01/11/14 01/29/14 Carlie Mac MD [address] [place] [address] PCP - General Pediatrics 01/30/14 07/17/15 Angella Mendieta MD [address] [place] [address] PCP - General Family Practice 07/18/15 09/11/15 Julito Banuelos MD [address] [place] [address] PCP - General Family Practice 09/12/15 09/23/21 Julito Baunelos MD [address] [place] [address] PCP - Assigned PCP 02/17/16 12/28/18 Vika Kevin APRN FIRE EQUIPMENT OPERATOR [address] [place] [address] PCP - General Nurse Practitioner - Family 09/24/21 03/05/22 Vika Kevin APRN FIRE EQUIPMENT OPERATOR [address] [place] [address] PCP - General Nurse Practitioner - Family 03/18/22 06/18/22 Vika Kevin APRN FIRE EQUIPMENT OPERATOR [address] [place] [address] PCP - General Nurse Practitioner - Family 07/24/22 Julito Banuelos MD [address] [place] [address] Assigned PCP 02/17/16 07/21/[address] [place] [address] 48[address] Medical Billing Clerk Dietitian, Registered 04/14/19 Mary Kay Jones, [facility] Pharmacist 08/01/19 04/20/20 Susannah Blankenship, [facility] [address] [facility] [address] [place] [address] Pharmacist Pharmacist 08/08/19 04/15/21 Carolyn Huynh, [facility] [address] [place], [place] [address] Pharmacist Pharmacist 06/25/20 04/15/21 Vika Kevin, JAIME FIRE EQUIPMENT OPERATOR [address] [place] [address] Assigned PCP 07/22/20 11/16/24 Marilyn Willard MD 420 [facility] [address] [place], [place] [address] Assigned Surgical Provider 08/17/20 08/16/24 Carie Varela DO [address] [place] [address] Assigned Heart and Vascular Provider 08/17/20 01/19/21 Maylin May NP [address] [place] [address] Assigned Pediatric Specialist Provider 12/16/20 06/13/22 Marisa Rodrigues, RN Clinic Exhaust Worker 01/15/21 02/26/21 Vilma Long MD [address] [place] [address] Assigned Heart and Vascular Provider 01/20/21 07/20/21 [facility] [address] [place] [address] Pharmacist Pharmacist 06/04/21 01/15/22 Cole George LISW Lead Exhaust Worker 06/13/21 10/07/21 Fletcher Up Community Health Worker 06/13/21 09/12/21 Bautista Casey MD [address] [place] [address] Assigned Heart and Vascular Provider 07/21/21 01/16/23 Jasmyn Oliver CHW Community Health Worker 09/13/21 10/07/21 [facility] [address] [place] [address] Assigned MTM Pharmacist 03/22/22 01/02/23 documented as of this encounter
--- OUTSIDE RECORDS SUMMARY | 2025-04-14 00:47 | XMS_ITS | Encounter Summary ---
Author Organization [place] Address [address] [facility] [place] [address] Care Team Providers Care Horse Doctor Name Role Phone Andrew Lu MD Primary Care Provider [phone] Niko Resendiz MD Primary Care Provider Carlie Mac MD Primary Care Provide r Angella Mendieta MD Primary Care Provider Julito Banuelos MD Primary Care Provider [phone] Julito Banuelos MD Unavailable Julito Banuelos MD Unavailable Aleshia Henriquez RD Unavailable Unavailable Mary Kay Jones [facility] Unavailable Unavailable Susannah Blankenship [facility] Unavailable [phone] [facility] Unavailable [phone] Vika Kevin APRN GENERAL EDUCATION INSTRUCTOR Unavailable + Marilyn Willard MD Unavailable [phone] Carie Varela DO Unavailable [phone] Maylin May NP Unavailable [phone] Marisa Rodrigues RN Unavailable Unavailable Vilma Long MD Unavailable + [phone] [facility] Unavailable [phone] Cole George Unavailable Fletcher Russell Unavailable Unavailable Bautista Casey MD Unavailable [phone] AnnyJasmyn tracey [facility] Unavailable [phone] Vika Kevin APRN [facility] Primary Care Prov ider Vika Kevin APRN [facility] Primary Care Prov ider Yasmeen Pendleton [facility] Unavailable [phone] [facility] Primary Care Prov ider Encounter Details Date Type Department Care Team (Late st Contact Info) Description 06/28/2013 MyC Medical Advice [address] [address] Denis Rojas MD [address] [place] [phone] Social History Tobacco Use Types Packs/Day Years Used Date Smoking Tobacco: Former Cigarettes 0.3 15 0 10/26/1961 - 10/26/1976 Smokeless Tobacco: Never Alcohol Use Standard Drinks/Week Comments Yes 0 (1 standard drink = 0.6 oz pur e alcohol) 1-2 glasses of wine weekly Comments No Sex and Gender Information Value Date Recorded Sex Assigned at Not on file Legal 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 PAINT FORMULATOR Gender Identity Not on file Sexual [...] Out COVID-19 12/04/2020 12/04/2020 12/05/2020 6:04 PM PAINT FORMULATOR documented as of this encounter Care Teams Horse Doctor Relationship Specialty Start Date End Date Andrew Lu MD XXX RETIRED XXX [address] [place] [phone] PCP - General 12/10/01 01/10/14 Niko Resendiz MD [address] [place] [address] PCP - General Internal Medicine 01/11/14 01/29/14 Carlie Mac MD [address] [place] [address] PCP - General Pediatrics 01/30/14 07/17/15 Angella Mendieta MD [address] [place] [address] PCP - General Family Practice 07/18/15 09/11/15 Julito Banuelos MD [address] [place] [address] PCP - General Family Practice 09/12/15 09/23/21 Julito Banuelos MD [address] [place] [address] PCP - Assigned PCP 02/17/16 12/28/18 Vika Kevin APRN GENERAL EDUCATION INSTRUCTOR [address] [place] [address] PCP - General Nurse Practitioner - Family 09/24/21 03/05/22 Vika Kevin APRN GENERAL EDUCATION INSTRUCTOR [address] [place] [address] PCP - General Nurse Practitioner - Family 03/18/22 06/18/22 Vika Kevin APRN GENERAL EDUCATION INSTRUCTOR [address] [place] [address] 580662 PCP - General Nurse Practitioner - Family 07/24/22 Julito Banuelos MD [address] [place] [address] [phone] Assigned PCP 02/17/16 07/21/[address] [place] [address] Transfer Controller Dietitian, Registered 04/14/19 Mary Kay Jones, [facility] Pharmacist 08/01/19 04/20/20 Susannah Blankenship, [facility] 420 [facility] 812 [place], [place] [address] Pharmacist Pharmacist 08/08/19 04/15/21 Carolyn Huynh, [facility] [address] [place], [place] [address] Pharmacist Pharmacist 06/25/20 04/15/21 Vika Kevin, JAIME GENERAL EDUCATION INSTRUCTOR [address] [place] [address] [phone] Assigned PCP 07/22/20 11/16/24 Marilyn Willard MD 420 [facility] 394 [place], [place] [address] Assigned Surgical Provider 08/17/20 08/16/24 Carie Varela DO [address] [place] [address] Assigned Heart and Vascular Provider 08/17/20 01/19/21 Maylin May NP [address] [facility] [address] Assigned Pediatric Specialist Provider 12/16/20 06/13/22 Marisa Rodrgiues, RN Clinic Apple Packing Header 01/15/21 02/26/21 Vilma Long MD [address] [place] [address] Assigned Heart and Vascular Provider 01/20/21 07/20/21 [facility] [address] [place] [address] Pharmacist Pharmacist 06/04/21 01/15/22 Cole George LISW Lead Apple Packing Header 06/13/21 10/07/21 Fletcher Up Community Health Worker 06/13/21 09/12/21 Bautista Casey MD [address] [place] [address] Assigned Heart and Vascular Provider 07/21/21 01/16/23 Jasmyn Oliver CHW Community Health Worker 09/13/21 10/07/21 [facility] [address] [place] [address] Assigned MTM Pharmacist 03/22/22 01/02/23 documented as of this encounter
--- OUTSIDE RECORDS SUMMARY | 2025-04-14 00:47 | XMS_ITS | Encounter Summary ---
Author Organization [place] Address [address] [facility] [place] [address] Care Team Providers Care General Scrap Worker Name Role Phone Andrew Lu MD Primary Care Provider [phone] Niko Resendiz MD Primary Care Provider Carlie Mac MD Primary Care Provide r Angella Mendieta MD Primary Care Provider Julito Banuelos MD Primary Care Provider [phone] Julito Banuelos MD Unavailable Julito Banuelos MD Unavailable Aleshia Henriquez RD Unavailable Unavailable Mary Kay Jones [facility] Unavailable Unavailable Susannah Blankenship [facility] Unavailable [phone] Carolyn Huynh [facility] Unavailable +[phone] Vika Kevin APRN RUBBER BALL FINISHER Unavailable + Marilyn Willard MD Unavailable [phone] Carie Varela DO Unavailable +[phone] Maylin May NP Unavailable [phone] Marisa Rodrigues RN Unavailable Unavailable Vilma Long MD Unavailable + [phone] Yasmeen Pendleton [facility] Unavailable [phone] Cole George Unavailable Fletcher Russell Unavailable Unavailable Bautista Casey MD Unavailable AnnyJasmyn tracey [facility] Unavailable [phone] Vika Kevin APRN [facility] Primary Care Prov ider Vika Kevin APRN [facility] Primary Care Prov ider Yasmeen Pendleton [facility] Unavailable [phone] Vika [facility] Primary Care Prov ider Encounter Details Date Type Department Care Team (Late st Contact Info) Description 06/23/[address] [phone] Andrew Lu MD XXX RETIRED XXX [address] [place] [phone] OP REPT (Primary Dx) Social History [...] on file Legal 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 SUPPORT SERVICES SPECIALIST Gender Identity Not on file Sexual Orientation Not on file 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 Chronic sinusitis. 2. Deviated [...] recover from anesthesia. Toni LOPEZ MD Document: [id number] [place], [place] MARIALUISA COSBY OPERATIV E REPORT Page 2 of 2 LCN:SDS DSC: 06/23/2003 [place], [place] Name: MR #: : Procedure Date: MARIALUISA COSBY [id number] 06/23/2003 Doctor: Toni RASMUSSEN MD OPERATIVE [...] Out COVID-19 12/04/2020 12/04/2020 12/05/2020 6:04 PM SUPPORT SERVICES SPECIALIST documented as of this encounter Care Teams General Scrap Worker Relationship Specialty Start Date End Date Andrew Lu MD XXX RETIRED XXX [address] [place] [phone] PCP - General 12/10/01 01/10/14 Niko Resendiz MD [address] [address] PCP - General Internal Medicine 01/11/14 01/29/14 Carlie Mac MD [address] [place] [address] PCP - General Pediatrics 01/30/14 07/17/15 Aneglla Mendieta MD [address] [place] [address] PCP - General Family Practice 07/18/15 09/11/15 Julito Banuelos MD [address] [place] [address] PCP - General Family Practice 09/12/15 09/23/21 Julito Banuelos MD [address] [place] [address] PCP - Assigned PCP 02/17/16 12/28/18 Vika Kevin APRN RUBBER BALL FINISHER [address] [place] [address] PCP - General Nurse Practitioner - Family 09/24/21 03/05/22 Vika Kevin APRN RUBBER BALL FINISHER [address] [place] [address] PCP - General Nurse Practitioner - Family 03/18/22 06/18/22 Vika Kevin APRN RUBBER BALL FINISHER [address] [place] [address] PCP - General Nurse Practitioner - Family 07/24/22 Julito Banuelos MD [address] [place] [address] Assigned PCP 02/17/16 07/21/20 Aleshia Henriquez, DAVE [address] [place] [address] Pig Sticker Dietitian, Registered 04/14/19 Mary Kay Jones, [facility] Pharmacist 08/01/19 04/20/20 [facility] [address] [place] [address] 812 [place], [place] 34[address]45 Pharmacist Pharmacist 08/08/19 04/15/21 [facility] [address] [place], [place] [address] Pharmacist Pharmacist 06/25/20 04/15/21 Vika Kevin APRN RUBBER BALL FINISHER [address] [place] [address] Assigned PCP 07/22/20 11/16/24 Marilyn Willard MD [address] [place] [address] [address] [place], [place] 262505 Assigned Surgical Provider 08/17/20 08/16/24 Carie Varela DO [address] [place], [place] [address] Assigned Heart and Vascular Provider 08/17/20 01/19/21 Maylin May NP [address] [place] [address] Assigned Pediatric Specialist Provider 12/16/20 06/13/22 Marisa Rodrigues, RN Clinic Pizzamaker 01/15/21 02/26/21 Vilma Long MD [address] [place] [address] Assigned Heart and Vascular Provider 01/20/21 07/20/21 [facility] 909 [place] [address] Pharmacist Pharmacist 06/04/21 01/15/22 Cole George LISW Lead Pizzamaker 06/13/21 10/07/21 Fletcher Up Community Health Worker 06/13/21 09/12/21 Bautista Casey MD [address] [place] [address] Assigned Heart and Vascular Provider 07/21/21 01/16/23 Jasmyn Oliver CHW Community Health Worker 09/13/21 10/07/21 [facility] [address] [place], [place] [address] Assigned MTM Pharmacist 03/22/22 01/02/23 documented as of this encounter
--- OUTSIDE RECORDS SUMMARY | 2025-04-14 00:47 | XMS_ITS | Encounter Summary ---
Author Organization [place] Address [address] [facility] [address] Care Team Providers Care Outpatient Coordinator Name Role Phone Andrew Lu MD Primary Care Provider [phone] Niko Resendiz MD Primary Care Provider Carlie Mac MD Primary Care Provide r Angella Mendieta MD Primary Care Provider Julito Banuelos MD Primary Care Provider [phone] Julito Banuelos MD Unavailable Julito Banuelos MD Unavailable Aleshia Henriquez RD Unavailable Unavailable Mary Kay Jones [facility] Unavailable Unavailable Susannah Blankenship [facility] Unavailable [phone] Carolyn Huynh [facility] Unavailable [phone] Vika Kevin APRN PROFESSOR OF GEOGRAPHY Unavailable + Marilyn Willard MD Unavailable [phone] Carie Varela DO Unavailable [phone] Maylin May NP Unavailable [phone] Marisa Rodrigues RN Unavailable Unavailable Vilma Long MD Unavailable + [phone] Yasmeen Pendleton [facility] Unavailable + [phone] Cole George Unavailable Fletcher Russell Unavailable Unavailable Bautista Casey MD Unavailable DemetriusJasmyn wright [facility] Unavailable [phone] Vika Kevin APRN [facility] Primary Care Prov ider Vika Kevin APRN [facility] Primary Care Prov ider Yasmeen Pendleton [facility] Unavailable + [phone] Vika Kevin APRN [facility] Primary Care Prov ider Encounter Details Date Type Department Care Team (Late st Contact Info) Description 02/04/[address] [phone] Veronica [place] Social History Tobacco Use Types Packs/Day Years Used Date Smoking Tobacco: Former Cigarettes 0.3 15 0 10/26/1961 - 10/26/1976 Smokeless Tobacco: Never Alcohol Use Standard Drinks/Week Comments Yes 0 (1 standard drink = 0.6 oz pur e alcohol) 1-2 glasses of wine weekly Comments No Sex and Gender Information Value Date Recorded Sex Assigned at Not on file Legal 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 CAT SKINNER Gender Identity Not on file Sexual Orientation [...] Out COVID-19 12/04/2020 12/04/2020 12/05/2020 6:04 PM CAT SKINNER documented as of this encounter Care Teams Outpatient Coordinator Relationship Specialty Start Date End Date Andrew Lu MD XXX RETIRED XXX [address] [place] [phone] PCP - General 12/10/01 01/10/14 Niko Resendiz MD [address] [place] [address] PCP - General Internal Medicine 01/11/14 01/29/14 Carlie Mac MD [address] [place] [address] PCP - General Pediatrics 01/30/14 07/17/15 Angella Mendieta MD [address] [place] [address] PCP - General Family Practice 07/18/15 09/11/15 Julito Banuelos MD [address] [place] [address] PCP - General Family Practice 09/12/15 09/23/21 Julito Banuelos MD [address] [place] [address] PCP - Assigned PCP 02/17/16 12/28/18 Vika Kevin APRN PROFESSOR OF GEOGRAPHY [address] [place] [address] PCP - General Nurse Practitioner - Family 09/24/21 03/05/22 Vika Kevin APRN PROFESSOR OF GEOGRAPHY [address] [place] [address] PCP - General Nurse Practitioner - Family 03/18/22 06/18/22 Vika Kevin APRN PROFESSOR OF GEOGRAPHY [address] [place] [address] 565102 PCP - General Nurse Practitioner - Family 07/24/22 Julito Banuelos MD [address] [place] [address] 151172 Assigned PCP 02/17/16 07/21/[address] [place] [address] Accounts Adjustable Clerk Dietitian, Registered 04/14/19 Mary Kay Jones, [facility] Pharmacist 08/01/19 04/20/20 [facility] [address] [place] [address] [address] [place], [place] [address] Pharmacist Pharmacist 08/08/19 04/15/21 [facility] [address] [place], [place] [address] Pharmacist Pharmacist 06/25/20 04/15/21 Vika Kevin APRN PROFESSOR OF GEOGRAPHY [address] [place] [address] 660332 Assigned PCP 07/22/20 11/16/24 Marilyn Willard MD [address] [place] [address] [address] [place] [address] Assigned Surgical Provider 08/17/20 08/16/24 Carie Varela DO [address] [place], [place] 0[address]245 Assigned Heart and Vascular Provider 08/17/20 01/19/21 Maylin May NP [address] [place], [place] [address] Assigned Pediatric Specialist Provider 12/16/20 06/13/22 Marisa Rodrigues, RN Clinic Commercial Floor Covering Installer 01/15/21 02/26/21 Vilma Long MD [address] [place] [address] Assigned Heart and Vascular Provider 01/20/21 07/20/21 [facility] [address] [place] [address] Pharmacist Pharmacist 06/04/21 01/15/22 Cole George LISW Lead Commercial Floor Covering Installer 06/13/21 10/07/21 Fletcher Up Community Health Worker 06/13/21 09/12/21 Bautista Casey MD [address] [place] [address] Assigned Heart and Vascular Provider 07/21/21 01/16/23 Jasmyn Oliver CHW Community Health Worker 09/13/21 10/07/21 [facility] [address] [place] [address] Assigned MTM Pharmacist 03/22/22 01/02/23 documented as of this encounter
--- OUTSIDE RECORDS SUMMARY | 2025-04-14 00:47 | XMS_ITS | Encounter Summary ---
Author Organization [place] Address [address] [facility] [place] [address] Care Team Providers Care Airport Location Manager Name Role Phone Julito Banuelos MD Primary Care Provider [phone] Julito Banuelos MD Unavailable Aleshia Henriquez RD Unavailable Unavailable Mary Kay Jones [facility] Unavailable Unavailable Susannah Blankenship [facility] Unavailable [phone] Carolyn Huynh [facility] Unavailable [phone] Vika Kevin APRN WWE WRESTLER Unavailable + Marilyn Willard MD Unavailable [phone] Carie Varela DO Unavailable [phone] Maylin May NP Unavailable [phone] Marisa Hernandez RN Unavailable Unavailable Vilma Long MD Unavailable Yasmeen Pendleton [facility] Unavailable Cole George Unavailable Fletcher Russell Unavailable Unavailable Bautista Casey MD Unavailable Jasmyn Oliver CHW Unavailable [phone] Vika Kevin APRN [employer] WRESTLER Primary Care Prov ider Vika Kevin APRN [facility] Primary Care Prov ider Yasmeen Pendleton [facility] Unavailable [phone] Vika Kevin APRN [facility] Primary Care Prov ider Encounter Details Date Type Department Care Team (Late st Contact Info) Description 02/13/2020 MyC Medical Advice [address] [place] [address] Mary Kay Jones, [facility] Social History Tobacco Use Types Packs/Day [...] file 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 Gender Identity Not on file Sexual [...] COVID-19 12/04/2020 12/04/2020 12/05/2020 6:04 PM ELECTRONICS DESIGN ENGINEER Assessment Noted Time PHQ-9 Depression Total Score: 8 07/18/20 19 12:06 PM CDT documented as of this encounter Care Teams Airport Location Manager Relationship Specialty [place] [address] [place] [address] PCP - General Family Practice 09/12/15 09/23/21 Vika Kevin APRN [employer] WRESTLER [address] [place] [address] 064112 PCP - General Nurse Practitioner - Family 09/24/21 03/05/22 Vika Kevin APRN [employer] WRESTL[employer] [address] [place] [address] 973672 PCP - General Nurse Practitioner - Family 03/18/22 06/18/22 Vika Kevin APRN [employer] WRESTL[employer] [address] [place] [address] PCP - General Nurse Practitioner - Family 07/24/22 Julito Banuelos MD [address] [place] [address] 746882 Assigned PCP 02/17/16 07/21/[address] [place] [address] Panel Sewer Dietitian, Registered 04/14/19 Mary Kay Jones [facility] Pharmacist 08/01/19 04/20/20 Susannah Blankenship [facility] [address] [place] [address] 812 [place], [place] [address] Pharmacist Pharmacist 08/08/19 04/15/21 Carolyn Huynh [facility] [address] [place] [address] Pharmacist Pharmacist 06/25/20 04/15/21 Vika Kevin APRN WWE WRESTLER [address] [place] [address] Assigned PCP 07/22/20 11/16/24 Marilyn Willard MD [address] [place] [address] 394 [place] [address] Assigned Surgical Provider 08/17/20 08/16/24 Carie Varela DO [address] [place] [address] Assigned Heart and Vascular Provider 08/17/20 01/19/21 Maylin May NP [address] [place] [address] Assigned Pediatric Specialist Provider 12/16/20 06/13/22 Marisa Rodrigues, RN Clinic Sinter Feeder 01/15/21 02/26/21 Vilma Long MD [address] [place] [address] Assigned Heart and Vascular Provider 01/20/21 07/20/21 Yasmeen Pendleton [facility] [address] [place] [address] Pharmacist Pharmacist 06/04/21 01/15/22 Cole George LISW Lead Sinter Feeder 06/13/21 10/07/21 Fletcher Up Community Health Worker 06/13/21 09/12/21 Bautista Casey MD [address] [place] [address] Assigned Heart and Vascular Provider 07/21/21 01/16/23 Jasmyn Oliver CHW Community Health Worker 09/13/21 10/07/21 Yasmeen Pendleton, [facility] [address] [place] [address] Assigned MTM Pharmacist 03/22/22 01/02/23 documented as of this encounter
--- OUTSIDE RECORDS SUMMARY | 2025-04-14 00:47 | XMS_ITS | Encounter Summary ---
Author Organization [place] Address [address] [facility] [place] [address] Care Team Providers Care Coastal/Harbor Defense Officer Name Role Phone Julito Banuelos MD Primary Care Provider [phone] Julito Banuelos MD Unavailable Aleshia Henriquez RD Unavailable Unavailable Susannah Blankenship [facility] Unavailable [phone] Carolyn Huynh [facility] Unavailable [phone] Vika Kevin APRN LICENSED MARRIAGE AND FAMILY THERAPIST Unavailable + Marilyn Willard MD Unavailable [phone] Carie Varela DO Unavailable [phone] Maylin May NP Unavailable [phone] Marisa Hernandez RN Unavailable Unavailable Vilma Long MD Unavailable + [phone] Yasmeen Pendleton [facility] Unavailable Cole George Unavailable Fletcher Russell Unavailable Unavailable Bautista Casey MD Unavailable [phone] Jasmyn Oliver Unavailable [phone] Vika Kevin APRN LICENSED MARRIAGE AND FAMILY THERAPIST Primary Care Prov ider Vika Kevin APRN [facility] Primary Care Prov ider Yasmeen Pendleton [facility] Unavailable Vika Kevin APRN [facility] Primary Care Prov ider Encounter Details Date Type Department Care Team (Late st Contact Info) Description 05/15/2020 MyC Medical Advice [address] [place] [address] Susannah Blankenship, [facility] [address] [facility] 812 [place] [address] Social History Tobacco Use Types Packs/Day Years [...] on file 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 Gender Identity Not on file Sexual [...] Out COVID-19 12/04/2020 12/04/2020 12/05/2020 6:04 PM GRAIN MERCHANDISING MANAGER Assessment Noted Time PHQ-9 Depression Total Score: 8 07/18/20 19 12:06 PM CDT documented as of this encounter Care Teams Coastal/Harbor Defense Officer Relationship Specialty [place] [address] [place] [address] PCP - General Family Practice 09/12/15 09/23/21 Vika Kevin APRN LICENSED MARRIAGE AND FAMILY THERAPIST [address] [place] [address] PCP - General Nurse Practitioner - Family 09/24/21 03/05/22 Vika Kevin APRN LICENSED MARRIAGE AND FAMILY THERAPIST [address] [place] [address] PCP - General Nurse Practitioner - Family 03/18/22 06/18/22 Vika Kevin APRN LICENSED MARRIAGE AND FAMILY THERAPIST [address] [place] [address] PCP - General Nurse Practitioner - Family 07/24/22 Julito Banuelos MD [address] [place] [address] 524902 Assigned PCP 02/17/16 07/21/[address] [place] [address] Ski Lift Attendant Dietitian, Registered 04/14/19 Susannah Blankenship, [facility] [address] [place] [address] 812 [place] [address] Pharmacist Pharmacist 08/08/19 04/15/21 Carolyn Huynh [facility] [address] [place] [address] Pharmacist Pharmacist 06/25/20 04/15/21 Vika Kevin APRN LICENSED MARRIAGE AND FAMILY THERAPIST [address] [place] [address] Assigned PCP 07/22/20 11/16/24 Marilyn Willard MD [address] [place] [address] 394 [place] [address] Assigned Surgical Provider 08/17/20 08/16/24 Carie Varela DO [address] [place] [address] Assigned Heart and Vascular Provider 08/17/20 01/19/21 Maylin May NP [address] [place] [address] Assigned Pediatric Specialist Provider 12/16/20 06/13/22 Marisa Rodrigues, RN Clinic Regional Loss Prevention Manager 01/15/21 02/26/21 Vilma Long MD [address] [place] [address] Assigned Heart and Vascular Provider 01/20/21 07/20/21 Yasmeen Pendleton [facility] [address] [place] [address] 665945 Pharmacist Pharmacist 06/04/21 01/15/22 Cole George LISW Lead Regional Loss Prevention Manager 06/13/21 10/07/21 Fletcher Up Community Health Worker 06/13/21 09/12/21 Bautista Casey MD [address] [place] [address] Assigned Heart and Vascular Provider 07/21/21 01/16/23 Jasmyn Oliver CHW Community Health Worker 09/13/21 10/07/21 Yasmeen Pendleton [facility] 9 [place] [address] Assigned MTM Pharmacist 03/22/22 01/02/23 documented as of this encounter
--- OUTSIDE RECORDS SUMMARY | 2025-04-14 00:47 | XMS_ITS | Encounter Summary ---
Author Organization [place] Address [address] [facility] [place] [address] Care Team Providers Care Youth Care Worker Name Role Phone Julito Banuelos MD Primary Care Provider [phone] Julito Banuelos MD Unavailable Aleshia Henriquez RD Unavailable Unavailable Mary Kay Jones [facility] Unavailable Unavailable Susannah Blankenship [facility] Unavailable Carolyn Huynh [facility] Unavailable [phone] Vika Kevin APRN LOG COOKER Unavailable + Marilyn Willard MD Unavailable [phone] Carie Varela DO Unavailable [phone] Maylin May NP Unavailable [phone] Marisa Hernandez RN Unavailable Unavailable Vilma Long MD Unavailable Yasmeen Pendleton [facility] Unavailable Cole George Unavailable Fletcher Russell Unavailable Unavailable Bautista Casey MD Unavailable Jasmyn Oliver CHW Unavailable [phone] Vika Kevin APRN LOG COOKER Primary Care Prov ider Vika Kevin APRN [facility] Primary Care Prov ider Yasmeen Pendleton [facility] Unavailable + [phone] Vika Kevin APRN [facility] Primary Care Prov ider Reason for Visit * Reason Comments Medication Refill Encounter Details Date Type Department Care Team (Late st Contact Info) Description 02/23/[address] [phone] [place] [address] [place] [address] Medication Refill Social History Tobacco Use [...] on file Legal Sex Female 3:22 AM APPLICATIONS SPECIALIST Gender Identity Not on file Sexual [...] review/approval because: Age Range Nazanin Zhong RN [facility] documented in this encounter Plan [...] Out COVID-19 12/04/2020 12/04/2020 12/05/2020 6:04 PM APPLICATIONS SPECIALIST Assessment Noted Time PHQ-9 Depression Total Score: 8 07/18/20 19 12:06 PM CDT documented as of this encounter Care Teams Youth Care Worker Relationship Specialty Start Date End Date Julito Banuelos MD [address] [place] [address] PCP - General Family Practice 09/12/15 09/23/21 Vika Kevin APRN LOG COOKER [address] [place] [address] PCP - General Nurse Practitioner - Family 09/24/21 03/05/22 Vika Kevin APRN LOG COOKER [address] [place] [address] PCP - General Nurse Practitioner - Family 03/18/22 06/18/22 Vika Kevin APRN LOG COOKER [address] [place] [address] PCP - General Nurse Practitioner - Family 07/24/22 Julito Banuelos MD [address] [place] [address] Assigned PCP 02/17/16 07/21/[address] [place] [address] Stretching Press Operator Dietitian, Registered 04/14/19 Mary Kay Jones, [facility] Pharmacist 08/01/19 04/20/20 Susannah Blankenship, [facility] [address] [facility] [address] [place], [place] [address] Pharmacist Pharmacist 08/08/19 04/15/21 Carolyn Huynh, [facility] [address] [place] [address] Pharmacist Pharmacist 06/25/20 04/15/21 Vika Kevin, TECHNICAL AGRONOMIST LOG COOKER [address] [place] [address] [id number] Assigned PCP 07/22/20 11/16/24 Marilyn Willard MD [address] [facility] [address] [place], [place] [address]15 Assigned Surgical Provider 08/17/20 08/16/24 Carie Varela DO [address] [place] [address] Assigned Heart and Vascular Provider 08/17/20 01/19/21 Maylin May NP [address] [place], [place] [id number] Assigned Pediatric Specialist Provider 12/16/20 06/13/22 Marisa Rodrigues, RN Clinic Primary Care Physician 01/15/21 02/26/21 Vilma Long MD [address] [place] [id number] Assigned Heart and Vascular Provider 01/20/21 07/20/21 Yasmeen Pendleton, [facility] [address] [place] [address] Pharmacist Pharmacist 06/04/21 01/15/22 Cole George LISW Lead Primary Care Physician 06/13/21 10/07/21 Fletcher Up Community Health Worker 06/13/21 09/12/21 Bautista Casey MD [address] [place] [address] Assigned Heart and Vascular Provider 07/21/21 01/16/23 Jasmyn Oliver CHW [facility] Health Worker 09/13/21 10/07/21 Yasmeen Pendleton [facility] [address] [place] [address] Assigned MTM Pharmacist 03/22/22 01/02/23 documented as of this encounter
--- OUTSIDE RECORDS SUMMARY | 2025-04-14 00:47 | XMS_ITS | Encounter Summary ---
Author Organization [place] Address [address] [facility] [address] Care Team Providers Care Mule Driver Name Role Phone Julito Banuelos MD Primary Care Provider [phone] Julito Banuelos MD Unavailable Julito Banuelos MD Unavailable Aleshia Henriquez RD Unavailable Unavailable Mary Kay Jones [facility] Unavailable Unavailable Susannah Blankenship [facility] Unavailable Carolyn Huynh [facility] Unavailable [phone] Vika Kevin APRN NET COORDINATOR Unavailable + Marilyn Willard MD Unavailable Carie Varela DO Unavailable +[phone] Maylin May NP Unavailable [phone] Marisa Rodrigues RN Unavailable Unavailable Vilma Long MD Unavailable Yasmeen Pendleton [facility] Unavailable [phone] Cole George Unavailable Fletcher Russell Unavailable Unavailable Bautista Casey MD Unavailable [phone] Jasmyn Oliver Unavailable [phone] Vika Kevin APRN [facility] Primary Care Prov ider Kevin Vika Delgado JAIME [facility] Primary Care Prov ider Yasmeen Pendleton [facility] Unavailable + [phone] Herberth Vika Delgado JAIME [facility] Primary Care Prov ider Reason for Visit * Reason Onset Date Comments MyChart Communication 11/01/2018 Encounter Details Date Type Department Care Team (Late st Contact Info) Description 11/01/2018 MyC Medical Advice [address] [address] [place] [address] [place] [address] MyChart Communication Social History Tobacco Use [...] Legal 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 YUE Mcdowell, RN, PHN [facility] Triage ) [phone] AL SERVICE MAIL PROCESSOR * Telephone Encounter - Leann Massey - 11/16/2018 8:28 AM CST The patient called and said her Ty is bringing in her urine. She wanted it noted that she is on an antibiotic right now. Leann Massey Patient Janitorial Manager AL SERVICE MAIL PROCESSOR * Telephone Encounter - Araseli Briceño RN - 11/02/2018 2:37 PM CST Mychart note sent to patient. YUE Mcdowell, RN, PHN [facility]) [phone] AL SERVICE MAIL PROCESSOR * Telephone Encounter - Julito Banuelos MD - 11/02/2018 2:17 PM CST Please review with patient Can certainly try prevagen, have not seen neurologist recommend to date? AL SERVICE MAIL PROCESSOR * Telephone Encounter - Araseli Briceño RN - 11/02/2018 7:55 AM CST Forwarded to TS. Please review patient's Gidsyhart message and advise. Araseli Briceño RN, BS, PHN AL SERVICE MAIL PROCESSOR documented in this encounter Plan of Treatment Not on file documented as of this encounter Visit Diagnoses Not on filedocumented in this encounter Additional Health Concerns Infection Onset Date Last Indicated Resolved Time Rule Out COVID-19 07/25/2020 07/25/2020 07/26/2020 3:02 PM CDT Rule Out COVID-19 12/04/2020 12/04/2020 12/05/2020 6:04 PM POSTAL SERVICE MAIL PROCESSOR Assessment Noted Time PHQ-9 Depression Total Score: 4 04/27/20 18 7:12 AM CDT documented as of this encounter Care Teams Mule Driver Relationship Specialty [place] [address] [place] [address] PCP - General Family Practice 09/12/15 09/23/21 Julito Banuelos MD [address] [place] [address] PCP - Assigned PCP 02/17/16 12/28/18 Vika Kevin APRN NET COORDINATOR [address] [place] [address] PCP - General Nurse Practitioner - Family 09/24/21 03/05/22 Vika Kevin APRN NET COORDINATOR [address] [place] [address] PCP - General Nurse Practitioner - Family 03/18/22 06/18/22 Vika Kevin APRN NET COORDINATOR [address] [place] [address] [id number] PCP - General Nurse Practitioner - Family 07/24/22 Julito Banuelos MD [address] [place] [address] 727202 Assigned PCP 02/17/16 07/21/[address] [place] [address] Computer Systems Software Engineer Dietitian, Registered 04/14/19 Mary Kay Jones [facility] Pharmacist 08/01/19 04/20/20 Susannah Blankenship [facility] [address] [place] [address] [address] [place] [address] Pharmacist Pharmacist 08/08/19 04/15/21 Carolyn Huynh [facility] [address] [place], [place] [address] Pharmacist Pharmacist 06/25/20 04/15/21 KevinVika, LEARNING SUPPORT SERVICES DIRECTOR NET COORDINATOR [address] [place], [place] 0837[address] Assigned PCP 07/22/20 11/16/24 Marilyn Willard MD [address] [facility] [address] [place], [place] [address] Assigned Surgical Provider 08/17/20 08/16/24 Carie Varela DO [address] [place] [address] Assigned Heart and Vascular Provider 08/17/20 01/19/21 Maylin May NP [address] [place], [place] [id number] Assigned Pediatric Specialist Provider 12/16/20 06/13/22 Marisa Rodrigues, RN Clinic El Teacher 01/15/21 02/26/21 Vilma Long MD [address] [place] [address] Assigned Heart and Vascular Provider 01/20/21 07/20/21 Yasmeen Pendleton [facility] [address] [place] [address] Pharmacist Pharmacist 06/04/21 01/15/22 Cole George LISW Lead El Teacher 06/13/21 10/07/21 Fletcher Up Community Health Worker 06/13/21 09/12/21 Bautista Casey MD [address] [place] [address] Assigned Heart and Vascular Provider 07/21/21 01/16/23 Jasmyn Oliver CHW Community Health Worker 09/13/21 10/07/21 Yasmeen Pendleton [facility] [address] [place] [address] Assigned MTM Pharmacist 03/22/22 01/02/23 documented as of this encounter
--- OUTSIDE RECORDS SUMMARY | 2025-04-14 00:47 | XMS_ITS | Encounter Summary ---
Author Organization [place] Address [address] [facility] [place] [address] Care Team Providers Care Dynamo Repairer Name Role Phone Julito Banuelos MD Primary Care Provider [phone] Julito Banuelos MD Unavailable Aleshia Henriquez RD Unavailable Unavailable Mary Kay Jones [facility] Unavailable Unavailable Susannah Blankenship [facility] Unavailable [phone] Carolyn Huynh [facility] Unavailable [phone] Vika Kevin APRN MOTOR SCOOTER REPAIRER Unavailable + Marilyn Willard MD Unavailable [phone] Carie Varela DO Unavailable [phone] Maylin May NP Unavailable [phone] Marisa Hernandez RN Unavailable Unavailable Vilma Long MD Unavailable Yasmeen Pendleton [facility] Unavailable Cole George Unavailable Fletcher Russell Unavailable Unavailable Bautista Casey MD Unavailable Jasmyn Oliver [facility] Unavailable [phone] Vika Kevin APRN MOTOR SCOOTER REPAIRER Primary Care Prov ider Vika Kevin APRN [facility] Primary Care Prov ider Yasmeen Pendleton [facility] Unavailable + [phone] Vika Kevin APRN [facility] Primary Care Prov ider Reason for Visit * Reason Comments Medication Refill Encounter Details Date Type Department Care Team (Late st Contact Info) Description 04/20/[address] [id number] [place] [address] [place] [address] [id number] Medication Refill Social History Tobacco Use Types [...] on file Legal Sex Female 3:22 AM RN SURGERY Gender Identity Not on file Sexual Orientation [...] Refill available at pharmacy Panda Bradshaw RN [facility] Triage documented in this encounter Plan of Treatment Not on file documented as of this encounter Visit Diagnoses Diagnosis Hypothyroidism, unspecified type documented in this encounter Additional Health Concerns Infection Onset Date Last Indicated Resolved Time Rule Out COVID-19 07/25/2020 07/25/2020 07/26/2020 3:02 PM CDT Rule Out COVID-19 12/04/2020 12/04/2020 12/05/2020 6:04 PM RN SURGERY Assessment Noted Time PHQ-9 Depression Total Score: 8 07/18/20 19 12:06 PM CDT documented as of this encounter Care Teams Dynamo Repairer Relationship Specialty Start Date End Date Julito Banueols MD [address] [place] [address] PCP - General Family Practice 09/12/15 09/23/21 Vika Kevin APRN MOTOR SCOOTER REPAIRER [address] [place] [address] PCP - General Nurse Practitioner - Family 09/24/21 03/05/22 Vika Kevin APRN MOTOR SCOOTER REPAIRER [address] [place] [address] PCP - General Nurse Practitioner - Family 03/18/22 06/18/22 Vika Kevin APRN MOTOR SCOOTER REPAIRER [address] [place] [address] PCP - General Nurse Practitioner - Family 07/24/22 Julito Banuelos MD [address] [place] [address] Assigned PCP 02/17/16 07/21/[address] [place] [address] Seconds Grader Dietitian, Registered 04/14/19 Mary Kay Jones [facility] Pharmacist 08/01/19 04/20/20 Susannah Blankenship, [facility] [address] [facility] [address] [place], [place] [address] Pharmacist Pharmacist 08/08/19 04/15/21 Carolyn Huynh [facility] [address] [place] [address] Pharmacist Pharmacist 06/25/20 04/15/21 Vika Kevin, DISPENSING LEAD MOTOR SCOOTER REPAIRER [address] [place] [address] 137842 Assigned PCP 07/22/20 11/16/24 Marilyn Willard MD [address] [facility] [address] [place], [place] [address] Assigned Surgical Provider 08/17/20 08/16/24 Carie Varela DO [address] [place] [address] Assigned Heart and Vascular Provider 08/17/20 01/19/21 Maylin May NP [address] [place], [place] [id number] Assigned Pediatric Specialist Provider 12/16/20 06/13/22 Marisa Rodrigues, RN Clinic Overnight Caregiver 01/15/21 02/26/21 Vilma Long MD [address] [place] [address] Assigned Heart and Vascular Provider 01/20/21 07/20/21 Yasmeen Pendleton [facility] [address] [place] [address] Pharmacist Pharmacist 06/04/21 01/15/22 Cole George LISW Lead Overnight Caregiver 06/13/21 10/07/21 Fletcher Up Community Health Worker 06/13/21 09/12/21 Bautista Casey MD [address] [place] [address] Assigned Heart and Vascular Provider 07/21/21 01/16/23 Jasmyn Oliver CHW Community Health Worker 09/13/21 10/07/21 Yasmeen Pendleton [facility] [address] [place] [address] Assigned MTM Pharmacist 03/22/22 01/02/23 documented as of this encounter
--- OUTSIDE RECORDS SUMMARY | 2025-04-14 00:47 | XMS_ITS | Encounter Summary ---
Author Organization [place] Address [address] [facility] [place] [address] Care Team Providers Care Otr Owner Operator Truck Driver Name Role Phone Julito Banuelos MD Primary Care Provider [phone] Julito Banuelos MD Unavailable Aleshia Henriquez RD Unavailable Unavailable Susannah Blankenship [facility] Unavailable [phone] Carolyn Huynh [facility] Unavailable [phone] Vika Kevin APRN FUR TRIMMING 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 Unavailable + Marilyn Willard MD Unavailable [phone] Carie Varela DO Unavailable [phone] Maylin May NP Unavailable [phone] Marisa Hernandez RN Unavailable Unavailable Vilma Long MD Unavailable + [phone] Yasmeen Pendleton [facility] Unavailable Cole George Unavailable Fletcher Russell Unavailable Unavailable Bautista Casey MD Unavailable [phone] Jasmyn Oliver Unavailable [phone] Vika Kevin APRN FUR TRIMMING 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 Primary Care Prov ider Vika Kevin APRN [facility] Primary Care Prov ider Yasmeen Pendleton [facility] Unavailable [phone] Vika Kevin APRN [facility] Primary Care Prov ider Encounter Details Date Type Department Care Team (Late st Contact Info) Description 05/08/2020 MyC Medical Advice [address] [place] [address] Susannah Blankenship, [facility] [address] [facility] [address] [place] [address] Social History Tobacco Use Types Packs/Day Years [...] on file Legal Sex Female 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 Gender Identity Not on file Sexual [...] Out COVID-19 12/04/2020 12/04/2020 12/05/2020 6:04 PM LOCATE TECHNICIAN Assessment Noted Time PHQ-9 Depression Total Score: 8 07/18/20 19 12:06 PM CDT documented as of this encounter Care Teams Otr Owner Operator Truck Driver Relationship Specialty [place] [address] [place] [address] PCP - General Family Practice 09/12/15 09/23/21 Vika Kevin APRN FUR TRIMMING 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 [address] [place] [address] PCP - General Nurse Practitioner - Family 09/24/21 03/05/22 Vika Kevin APRN FUR TRIMMING 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 [address] [place] [address] PCP - General Nurse Practitioner - Family 03/18/22 06/18/22 Vika Kevin APRN FUR TRIMMING 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 [address] [place] [address] PCP - General Nurse Practitioner - Family 07/24/22 Julito Banuelos MD [address] [place] [address] 477272 Assigned PCP 02/17/16 07/21/[address] [place] [address] Program Manager Slp Dietitian, Registered 04/14/19 Susannah Blankenship, [facility] [address] [place] [address] 812 [place] [address] Pharmacist Pharmacist 08/08/19 04/15/21 Carolyn Huynh [facility] [address] [place] [address] Pharmacist Pharmacist 06/25/20 04/15/21 Vika Kevin APRN FUR TRIMMING 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 [address] [place] [address] Assigned PCP 07/22/20 11/16/24 Marilyn Willard MD [address] [place] [address] 394 [place] [address] Assigned Surgical Provider 08/17/20 08/16/24 Carie Varela DO [address] [place] [address] Assigned Heart and Vascular Provider 08/17/20 01/19/21 Maylin May NP [address] [place] [address] Assigned Pediatric Specialist Provider 12/16/20 06/13/22 Marisa Rodrigues, RN Clinic Burrer Machine 01/15/21 02/26/21 Vilma Long MD [address] [place] [address] Assigned Heart and Vascular Provider 01/20/21 07/20/21 Yasmeen Pendleton [facility] [address] [place] [address] 944735 Pharmacist Pharmacist 06/04/21 01/15/22 Cole George LISW Lead Burrer Machine 06/13/21 10/07/21 Fletcher Up Community Health Worker 06/13/21 09/12/21 Bautista Casey MD [address] [place] [address] Assigned Heart and Vascular Provider 07/21/21 01/16/23 Jasmyn Oliver CHW Community Health Worker 09/13/21 10/07/21 Yasmeen Pendleton [facility] 9 [place] [address] Assigned MTM Pharmacist 03/22/22 01/02/23 documented as of this encounter
--- OUTSIDE RECORDS SUMMARY | 2025-04-14 00:47 | XMS_ITS | Encounter Summary ---
Author Organization [place] Address [address] [facility] [place] [address] Care Team Providers Care Principal Network Engineer Name Role Phone Angella Mendieta MD Primary Care Provider Julito Banuelos MD Primary Care Provider [phone] Julito Banuelos MD Unavailable Julito Banuelos MD Unavailable Aleshia Henriquez RD Unavailable Unavailable Mary Kay Jones [facility] Unavailable Unavailable Susannah Blankenship [facility] Unavailable Carolyn Huynh [facility] Unavailable [phone] Vika Kevin APRN MANAGER BUSINESS Unavailable + Marilyn Willard MD Unavailable Carie Varela DO Unavailable [phone] Maylin May NP Unavailable [phone] Marisa Rodrigues RN Unavailable Unavailable Vilma Long MD Unavailable + [phone] Yasmeen Pendleton [facility] Unavailable Cole George Unavailable Fletcher Russell Unavailable Unavailable Bautista Casey MD Unavailable [phone] Jasmyn Oliver CHW Unavailable [phone] Vika Kevin APRN [facility] Primary Care Prov ider Vika Kevin APRN [facility] Primary Care Prov ider + Yasmeen Pendleton [facility] Unavailable Vika Kevin APRN [facility] Primary Care Prov ider + Encounter Details Date Type Department Care Team (Late st Contact Info) Description 08/16/2015 MyC Medical Advice [facility] Index [address] [facility] [address] [place] [address] Jaimee Donald MD HEART [place] 365[address] [facility] [address] [place], [place] [id number] Social History Tobacco Use Types Packs/Day Years [...] file Legal 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 Female 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 FORM DRAFTER Gender Identity Not on file Sexual Orientation [...] COVID-19 12/04/2020 12/04/2020 12/05/2020 6:04 PM FORM DRAFTER documented as of this encounter Care Teams Principal Network Engineer Relationship Specialty [place] [address] [place] [address] 115362 PCP - General Family Practice 07/18/15 09/11/15 Julito Banuelos MD [address] [place] [address] PCP - General Family Practice 09/12/15 09/23/21 Julito Banuelos MD [address] [place] [address] PCP - Assigned PCP 02/17/16 12/28/18 Vika Kevin APRN MANAGER BUSINESS [address] [place] [address] PCP - General Nurse Practitioner - Family 09/24/21 03/05/22 Vika Kevin APRN MANAGER BUSINESS [address] [place] [address] PCP - General Nurse Practitioner - Family 03/18/22 06/18/22 Vika Kevin APRN MANAGER BUSINESS [address] [place] [address] PCP - General Nurse Practitioner - Family 07/24/22 Julito Banuelos MD [address] [place] [address] Assigned PCP 02/17/16 07/21/[address] [place] [address] Life Insurance Sales Dietitian, Registered 04/14/19 Mary Kay Jones, [facility] Pharmacist 08/01/19 04/20/20 Susannah Blankenship, [facility] 420 [facility] 812 [place] [address] Pharmacist Pharmacist 08/08/19 04/15/21 Carolyn Huynh [facility] [address] [place] [address] Pharmacist Pharmacist 06/25/20 04/15/21 Vika Kevin APRN MANAGER BUSINESS [address] [place] [address] 999172 Assigned PCP 07/22/20 11/16/24 Marilyn Willard MD 420 [facility] [address] [place], [place] [address] Assigned Surgical Provider 08/17/20 08/16/24 Carie Varela DO [address] [place] [address] Assigned Heart and Vascular Provider 08/17/20 01/19/21 Maylin May NP [address] [facility] [place], [place] [address] Assigned Pediatric Specialist Provider 12/16/20 06/13/22 Marisa Rodrigues, RN Clinic Home Economist 01/15/21 02/26/21 Vilma Long MD [address] [place] [address]35 Assigned Heart and Vascular Provider 01/20/21 07/20/21 Yasmeen Pendleton [facility] [address] [place], [place] [address] Pharmacist Pharmacist 06/04/21 01/15/22 Cole George LISW Lead Home Economist 06/13/21 10/07/21 Fletcher Up Community Health Worker 06/13/21 09/12/21 Bautista Casey MD [address] [place], [place] [address] Assigned Heart and Vascular Provider 07/21/21 01/16/23 Jasmyn Oliver CHW Community Health Worker 09/13/21 10/07/21 Yasmeen Pendleton [facility] [address] [place] [address] Assigned MTM Pharmacist 03/22/22 01/02/23 documented as of this encounter
--- OUTSIDE RECORDS SUMMARY | 2025-04-14 00:47 | XMS_ITS | Clinical Summary ---
Author Organization [employer] Address [address] [place] [address] Care Team Providers Care Crusher Setter Name Role Phone Julito Banuelos MD Primary Care Provider [phone] Allergies Active Allergy Reactions Criticality Noted Date [...] on file Legal Sex Female 6:13 AM FUN HOUSE OPERATOR Gender Identity Not on file Sexual Orientation Not on file Obstetrics History Last Filed Vital Signs Vital Sign Reading Time Taken Comments Blood Pressure 159/79 10/17/2018 10:16 AM FUN HOUSE OPERATOR Pulse 78 10/17/2018 10:16 AM FUN HOUSE OPERATOR Temperature 36.7 C (98 F) 10/17/2018 10:16 AM FUN HOUSE OPERATOR Respiratory Rate 20 10/17/2018 10:16 AM FUN HOUSE OPERATOR Oxygen Saturation 96% 10/17/2018 10:16 AM FUN HOUSE OPERATOR Inhaled Oxygen Concentration - - Weight 98 kg (216 lb) 10/17/2018 10:16 AM FUN HOUSE OPERATOR Height 172.7 cm (5' 8) 10/17/2018 10:16 AM FUN HOUSE OPERATOR Body Mass Index 32.84 10/17/2018 10:16 AM FUN HOUSE OPERATOR Plan of Treatment Health Maintenance Due Date [...] MEDICARE PART B HB ONLY [place] BLUE HB ONLY [place] [place] MEDICARE ADVANTAGE MR Care Teams Crusher Setter Relationship Specialty Start Date End Date Julito Banuelos MD PCP - General Family Practice 10/17/18
--- OUTSIDE RECORDS SUMMARY | 2025-04-14 00:47 | XMS_ITS | Encounter Summary ---
Author Organization Issue Address [address] [facility] [place] [address] Care Team Providers Care Windscreen Fitter Name Role Phone Julito Banuelos MD Primary Care Provider [phone] Julito Banuelos MD Unavailable Aleshia Henriquez RD Unavailable Unavailable Mary Kay Jones [facility] Unavailable Unavailable Susannah Blankenship [facility] Unavailable Carolyn Huynh [facility] Unavailable [phone] Vika Kevin APRN REDUCTION FURNACE OPERATOR Unavailable + Marilyn Willard MD Unavailable Carie Varela DO Unavailable [phone] Maylin May NP Unavailable [phone] Marisa Hernandez RN Unavailable Unavailable Vilma Long MD Unavailable Yasmeen Pendleton [facility] Unavailable oCle George Unavailable Fletcher Russell Unavailable Unavailable Bautista Casey MD Unavailable Jasmyn Oliver CHW Unavailable [phone] Vika Kevin APRN REDUCTION FURNACE OPERATOR Primary Care Prov ider Vika Kevin APRN [facility] Primary Care Prov ider Yasmeen Pendleton [facility] Unavailable + [phone] Vika Kevin APRN [facility] Primary Care Prov ider Encounter Details Date Type Department Care Team (Late st Contact Info) Description 03/28/2020 MyC Medical Advice [facility] [address] [address] Panda Sibley MD 2 [place], [place] [id number] Social History Tobacco Use Types Packs/Day Years [...] on file Legal Sex Female 3:22 AM HYDROSTATIC TESTER Gender Identity Not on file Sexual Orientation [...] Out COVID-19 12/04/2020 12/04/2020 12/05/2020 6:04 PM HYDROSTATIC TESTER Assessment Noted Time PHQ-9 Depression Total Score: 8 07/18/20 19 12:06 PM CDT documented as of this encounter Care Teams Windscreen Fitter Relationship Specialty Start Date End Date Julito Banuelos MD [address] [place] [address] 16091 PCP - General Family Practice 09/12/15 09/23/21 Vika Kevin APRN REDUCTION FURNACE OPERATOR [address] [place] [address] 15718 PCP - General Nurse Practitioner - Family 09/24/21 03/05/22 Vika Kevin APRN REDUCTION FURNACE OPERATOR [address] [place] [address] [id number] PCP - General Nurse Practitioner - Family 03/18/22 06/18/22 Vika Kevin APRN REDUCTION FURNACE OPERATOR [address] [place] [address] [phone] PCP - General Nurse Practitioner - Family 07/24/22 Julito Banuelos MD [address] [place] [address] [phone] Assigned PCP 02/17/16 07/21/[address] [place] [address]2665 Mounter Smoking Pipe Dietitian, Registered 04/14/19 Mary Kay Jones [facility] Pharmacist 08/01/19 04/20/20 Susannah Blankenship [facility] [address] [place] [address] [address] [place], [place] [id number] Pharmacist Pharmacist 08/08/19 04/15/21 Carolyn Huynh [facility] [address] [place], [place] [address] Pharmacist Pharmacist 06/25/20 04/15/21 Vika Kevin APRN REDUCTION FURNACE OPERATOR [address] [place], [place] 8[address]12 Assigned PCP 07/22/20 11/16/24 Marilyn Willard MD 420 [facility] [address] [place], [place] 67[address]85 Assigned Surgical Provider 08/17/20 08/16/24 Carie Varela DO [address] [place] [address] Assigned Heart and Vascular Provider 08/17/20 01/19/21 Maylin May NP [address] [place], [place] [id number] Assigned Pediatric Specialist Provider 12/16/20 06/13/22 Marisa Rodrigues, RN Clinic Jet Piercer Operator 01/15/21 02/26/21 Vilma Long MD [address] [place] [address] Assigned Heart and Vascular Provider 01/20/21 07/20/21 Yasmeen Pendleton [facility] [address] [place] [address] Pharmacist Pharmacist 06/04/21 01/15/22 Cole George LISW Lead Jet Piercer Operator 06/13/21 10/07/21 Fletcher Up Community Health Worker 06/13/21 09/12/21 Bautista Casey MD [address] [place] [address] Assigned Heart and Vascular Provider 07/21/21 01/16/23 Jasmyn Oliver CHW Community Health Worker 09/13/21 10/07/21 Yasmeen Pendleton [facility] [address] [place] [address] Assigned MTM Pharmacist 03/22/22 01/02/23 documented as of this encounter
--- OUTSIDE RECORDS SUMMARY | 2025-04-14 00:47 | XMS_ITS | Encounter Summary ---
Author Organization [place] Address [address] [facility] [place] [address] Care Team Providers Care Ppa Teacher Name Role Phone Andrew Lu MD Primary Care Provider [phone] Niko Resendiz MD Primary Care Provider Carlie Mac MD Primary Care Provide r Angella Mendieta MD Primary Care Provider Julito Banuelos MD Primary Care Provider [phone] Julito Banuelos MD Unavailable Julito Banuelos MD Unavailable Aleshia Henriquez RD Unavailable Unavailable Mary Kay Jones [facility] Unavailable Unavailable Susannah Blankenship [facility] Unavailable [phone] Carolyn Huynh [facility] Unavailable [phone] Vika Kevin APRN TECHNICIAN SEMICONDUCTOR DEVELOPMENT Unavailable + Marilyn Willard MD Unavailable [phone] Carie Varela DO Unavailable [phone] Maylin May NP Unavailable [phone] Marisa Rodrigues RN Unavailable Unavailable Vilma Lnog MD Unavailable + [phone] Yasmeen Pendleton [facility] Unavailable [phone] Cole George Unavailable Fletcher Russell Unavailable Unavailable Bautista Casey MD Unavailable [phone] TatyanaJasmyn anand [facility] Unavailable [phone] Vika Kevin APRN [facility] Primary Care Prov ider Vika Kevin APRN [facility] Primary Care Prov ider Yasmeen Pendleton [facility] Unavailable [phone] Vika Kevin APRN [facility] Primary Care Prov ider Encounter Details Date Type Department Care Team (Late st Contact Info) Description 05/19/[address] [phone] Jolene Martin Social History Tobacco Use Types [...] on file Legal Sex Female 3:22 AM INTERNAL GRINDER Gender Identity Not on file Sexual Orientation Not on file documented as of this encounter Plan of Treatment Not on file documented as of this encounter Visit Diagnoses Not on filedocumented in this encounter Additional Health Concerns Infection Onset Date Last Indicated Resolved Time Rule Out COVID-19 07/25/2020 07/25/2020 07/26/2020 3:02 PM CDT Rule Out COVID-19 12/04/2020 12/04/2020 12/05/2020 6:04 PM INTERNAL GRINDER documented as of this encounter Care Teams Ppa Teacher Relationship Specialty Start Date End Date Andrew Lu MD XXX RETIRED XXX [address] [place] [phone] PCP - General 12/10/01 01/10/14 Niko Resendiz MD [address] [address] PCP - General Internal Medicine 01/11/14 01/29/14 Carlie Mac MD [address] [place] [address] PCP - General Pediatrics 01/30/14 07/17/15 Angella Mendieta MD [address] [place] [address]49 PCP - General Family Practice 07/18/15 09/11/15 Julito Banuelos MD [address] [place] [address]446 PCP - General Family Practice 09/12/15 09/23/21 Julito Banuelos MD [address] [place] [address] PCP - Assigned PCP 02/17/16 12/28/18 Vika Kevin APRN TECHNICIAN SEMICONDUCTOR DEVELOPMENT [address] [place] [address] PCP - General Nurse Practitioner - Family 09/24/21 03/05/22 Vika Kevin APRN TECHNICIAN SEMICONDUCTOR DEVELOPMENT [address] [place] [address] PCP - General Nurse Practitioner - Family 03/18/22 06/18/22 Vika Kevin APRN TECHNICIAN SEMICONDUCTOR DEVELOPMENT [address] [place] [address] [phone] PCP - General Nurse Practitioner - Family 07/24/22 Julito Banuelos MD [address] [place] [address] [phone] Assigned PCP 02/17/16 07/21/20 Aleshia Henriquez, DAVE [address] [place] [address] 187[address] Manager English Dietitian, Registered 04/14/19 Mary Kay Jones, [facility] Pharmacist 08/01/19 04/20/20 Susannah Blankenship, [facility] [address] [place] [address] 812 [place], [place] 543[address] Pharmacist Pharmacist 08/08/19 04/15/21 [facility] [address] [place], [place] [address] Pharmacist Pharmacist 06/25/20 04/15/21 Vika Kevin APRN TECHNICIAN SEMICONDUCTOR DEVELOPMENT [address] [place] [address] [phone] Assigned PCP 07/22/20 11/16/24 Marilyn Willard MD 420 [facility] 394 [place], [place] 6[address] Assigned Surgical Provider 08/17/20 08/16/24 Carie Varela DO [address] [place], [place] 3[address] Assigned Heart and Vascular Provider 08/17/20 01/19/21 Maylin May, JENNY [address] [place] [address] Assigned Pediatric Specialist Provider 12/16/20 06/13/22 Marisa Rodrigues, RN Clinic Mini Bar Attendant 01/15/21 02/26/21 Vilma Long MD [address] [place] [address] Assigned Heart and Vascular Provider 01/20/21 07/20/21 Yasmeen Pendleton [facility] [address] [place] [address] Pharmacist Pharmacist 06/04/21 01/15/22 Cole George LISW Lead Mini Bar Attendant 06/13/21 10/07/21 Fletcher Up Community Health Worker 06/13/21 09/12/21 Bautista Casey MD [address] [place] [address] Assigned Heart and Vascular Provider 07/21/21 01/16/23 Jasmyn Oliver CHW Community Health Worker 09/13/21 10/07/21 Yasmeen Pendleton [facility] [address] [place] [address] [id number] Assigned MTM Pharmacist 03/22/22 01/02/23 documented as of this encounter
--- OUTSIDE RECORDS SUMMARY | 2025-04-14 00:47 | XMS_ITS | Encounter Summary ---
Author Organization [place] Address [address] [facility] [place] [address] Care Team Providers Care Pathology Collector Name Role Phone Andrew Lu MD Primary Care Provider [phone] Niko Resendiz MD Primary Care Provider Carlie Mac MD Primary Care Provide r Angella Mendieta MD Primary Care Provider Julito Banuelos MD Primary Care Provider [phone] Julito Banuelos MD Unavailable Julito Banuelos MD Unavailable Aleshia Henriquez RD Unavailable Unavailable Mary Kay Jones [facility] Unavailable Unavailable Susannah Blankenship [facility] Unavailable [phone] Carolyn Huynh [facility] Unavailable [phone] Vika Kevin APRN ROCKET PROPELLANT PLANT SUPERVISOR Unavailable + Marilyn Willard MD Unavailable [phone] Carie Varela DO Unavailable [phone] Maylin May NP Unavailable [phone] Marisa Rodrigues RN Unavailable Unavailable Vilma Long MD Unavailable + [phone] Yasmeen Pendleton [facility] Unavailable [phone] Cole George Unavailable Fletcher Russell Unavailable Unavailable Bautista Casey MD Unavailable [phone] TatyanaJasmyn anand [facility] Unavailable [phone] Vika Kevin APRN [facility] Primary Care Prov ider Vika Kevin APRN [facility] Primary Care Prov ider Yasmeen Pendleton [facility] Unavailable [phone] Vika Kevin APRN [facility] Primary Care Prov ider Encounter Details Date Type Department Care Team (Late st Contact Info) Description 07/02/[address] [phone] Jolene Martin Social History Tobacco Use Types [...] on file Legal Sex Female 3:22 AM BATTERY FILLER Gender Identity Not on file Sexual Orientation Not on file documented as of this encounter Plan of Treatment Not on file documented as of this encounter Visit Diagnoses Not on filedocumented in this encounter Additional Health Concerns Infection Onset Date Last Indicated Resolved Time Rule Out COVID-19 07/25/2020 07/25/2020 07/26/2020 3:02 PM CDT Rule Out COVID-19 12/04/2020 12/04/2020 12/05/2020 6:04 PM BATTERY FILLER documented as of this encounter Care Teams Pathology Collector Relationship Specialty Start Date End Date Andrew uL MD XXX RETIRED XXX [address] [place] [phone] PCP - General 12/10/01 01/10/14 Niko Resendiz MD [address] [address] PCP - General Internal Medicine 01/11/14 01/29/14 Carlie Mac MD [address] [place] [address] PCP - General Pediatrics 01/30/14 07/17/15 Angella Mendieta MD [address] [place] [address] PCP - General Family Practice 07/18/15 09/11/15 Julito Banuelos MD [address] [place] [address]05 PCP - General Family Practice 09/12/15 09/23/21 Julito Banuelos MD [address] [place] [address] PCP - Assigned PCP 02/17/16 12/28/18 Vika Kevin APRN ROCKET PROPELLANT PLANT SUPERVISOR [address] [place] [address] 31993 PCP - General Nurse Practitioner - Family 09/24/21 03/05/22 Vika Kevin APRN ROCKET PROPELLANT PLANT SUPERVISOR [address] [place] [address]89 PCP - General Nurse Practitioner - Family 03/18/22 06/18/22 Vika Kevin APRN ROCKET PROPELLANT PLANT SUPERVISOR [address] [place] [address] [phone] PCP - General Nurse Practitioner - Family 07/24/22 Julito Banuelos MD [address] [place] [address] 485342 Assigned PCP 02/17/16 07/21/20 Aleshia Henriquez, DAVE [address] [place] [address] Entertainer & Comic Dietitian, Registered 04/14/19 Mary Kay Jones, [facility] Pharmacist 08/01/19 04/20/20 Susannah Blankenship, [facility] [address] [place] [address] 812 [place], [place] [address] Pharmacist Pharmacist 08/08/19 04/15/21 [facility] [address] [place], [place] 37[address] Pharmacist Pharmacist 06/25/20 04/15/21 Vika Kevin APRN ROCKET PROPELLANT PLANT SUPERVISOR [address] [place] [address] 330992 Assigned PCP 07/22/20 11/16/24 Marilyn Willard MD 420 [facility] [address] [place], [place] [address] Assigned Surgical Provider 08/17/20 08/16/24 Carie Varela DO [address] [place], [place] [address] Assigned Heart and Vascular Provider 08/17/20 01/19/21 Maylin May, JENNY [address] [place] [address] Assigned Pediatric Specialist Provider 12/16/20 06/13/22 Marisa Rodrigues, RN Clinic Rip Tailer 01/15/21 02/26/21 Vilma Lnog MD [address] [place] [address] Assigned Heart and Vascular Provider 01/20/21 07/20/21 Yasmeen Pendleton [facility] [address] [place] [address] Pharmacist Pharmacist 06/04/21 01/15/22 Cole George LISW Lead Rip Tailer 06/13/21 10/07/21 Fletcher Up Community Health Worker 06/13/21 09/12/21 Bautista Casey MD [address] [place] [address] Assigned Heart and Vascular Provider 07/21/21 01/16/23 Jasmyn Oliver CHW Community Health Worker 09/13/21 10/07/21 Yasmeen Pendleton [facility] [address] [place] [address] [phone] Assigned MTM Pharmacist 03/22/22 01/02/23 documented as of this encounter
--- OUTSIDE RECORDS SUMMARY | 2025-04-14 00:47 | XMS_ITS | Encounter Summary ---
Author Organization [place] Address [address] [facility] [place] [address] Care Team Providers Care Bundle Clerk Name Role Phone Carlie Mac MD Primary Care Provide r Angella Mendieta MD Primary Care Provider Julito Banuelos MD Primary Care Provider Julito Banuelos MD Unavailable Julito Banuelos MD Unavailable Aleshia Henriquez RD Unavailable Unavailable Mary Kay Jones [facility] Unavailable Unavailable Susannah Blankenship [facility] Unavailable [phone] Carolyn Huynh [facility] Unavailable Vika Kevin APRN SITE LEASING AGENT Unavailable + Marilyn Willard MD Unavailable [phone] Carie Varela DO Unavailable Maylin May NP Unavailable [phone] Marisa Hernandez RN Unavailable Unavailable Vilma Long MD Unavailable Yasmeen Pendleton [facility] Unavailable Cole George Unavailable Fletcher Russell Unavailable Unavailable IpBautista MD Unavailable Jasmyn Oliver CH Unavailable [phone] Vika Kevin APRN [facility] Primary Care Prov ider Vika Kevin APRN [facility] Primary Care Prov ider Yasmeen Pendleton [facility] Unavailable Vika Kevin APRN [facility] Primary Care Prov ider Encounter Details Date Type Department Care Team (Late st Contact Info) Description 10/12/2014 MyC Medical Advice [address] [phone] Sara Robison Y, HALL COORDINATOR Social History Tobacco Use Types Packs/Day Years Used Date Smoking Tobacco: Former Cigarettes 0.3 15 0 10/26/1961 - 10/26/1976 Smokeless Tobacco: Never Alcohol Use Standard Drinks/Week Comments Yes 0 (1 standard drink = 0.6 oz pur e alcohol) 1-2 glasses of wine weekly Comments No Sex and Gender Information Value Date Recorded Sex Assigned at Not on file Legal 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 Gender Identity Not on file Sexual Orientation [...] Out COVID-19 12/04/2020 12/04/2020 12/05/2020 6:04 PM FORMWORK CARPENTER documented as of this encounter Care Teams Bundle Clerk Relationship Specialty Start Date End Date Carlie Mac MD [address] [place] [address] PCP - General Pediatrics 01/30/14 07/17/15 Angella Mendieta MD [address] [place] [address] PCP - General Family Practice 07/18/15 09/11/15 Julito Banuelos MD [address] [place] [address] PCP - General Family Practice 09/12/15 09/23/21 Julito Banuelos MD [address] [place] [address]79 PCP - Assigned PCP 02/17/16 12/28/18 Vika Kevin APRN SITE LEASING AGENT [address] [place] [address] 68355 PCP - General Nurse Practitioner - Family 09/24/21 03/05/22 Vika Kevin APRN SITE LEASING AGENT [address] [place] [address]20 PCP - General Nurse Practitioner - Family 03/18/22 06/18/22 Vika Kevin APRN SITE LEASING AGENT [address] [place] [address] PCP - General Nurse Practitioner - Family 07/24/22 Julito Banuelos MD [address] [place] [address] Assigned PCP 02/17/16 07/21/[address] [place] [address] Coater Slate Dietitian, Registered 04/14/19 Mary Kay Jones, [facility] Pharmacist 08/01/19 04/20/20 Susannah Blankenship, [facility] 420 [facility] 812 [place] [address] Pharmacist Pharmacist 08/08/19 04/15/21 Carolyn Huynh, [facility] [address] [place], [place] [address] Pharmacist Pharmacist 06/25/20 04/15/21 Vika Kevin, TERMINAL MAKE UP OPERATOR SITE LEASING AGENT [address] [place] [address] [phone] Assigned PCP 07/22/20 11/16/24 Marilyn Willard MD 420 [facility] 394 [place], [place] [address] Assigned Surgical Provider 08/17/20 08/16/24 Carie Varela DO [address] [place] [address] Assigned Heart and Vascular Provider 08/17/20 01/19/21 Maylin May NP [address] [place] [address] Assigned Pediatric Specialist Provider 12/16/20 06/13/22 Marisa Rodrigues, RN Clinic Carton Maker 01/15/21 02/26/21 Vilma Long MD [address] [place] [address] Assigned Heart and Vascular Provider 01/20/21 07/20/21 Yasmeen Pendleton [facility] [address] [place] [address] Pharmacist Pharmacist 06/04/21 01/15/22 Cole George LISW Lead Carton Maker 06/13/21 10/07/21 Fletcher Up Community Health Worker 06/13/21 09/12/21 Bautista Casey MD [address] [place] [address] Assigned Heart and Vascular Provider 07/21/21 01/16/23 Jasmyn Oliver CHW Community Health Worker 09/13/21 10/07/21 Yasmeen Pendleton [facility] [address] [place] [address] Assigned MTM Pharmacist 03/22/22 01/02/23 documented as of this encounter
--- OUTSIDE RECORDS SUMMARY | 2025-04-14 00:48 | XMS_ITS | Encounter Summary ---
Author Organization [place] Address [address] [facility] [place] [address] Care Team Providers Care Commercial Announcer Name Role Phone Andrew Lu MD Primary Care Provider [phone] Niko Resendiz MD Primary Care Provider Carlie Mac MD Primary Care Provide r Angella Mendieta MD Primary Care Provider Julito Banuelos MD Primary Care Provider [phone] Julito Banuelos MD Unavailable Julito Banuelos MD Unavailable Aleshia Henriquez RD Unavailable Unavailable Mary Kay Jones [facility] Unavailable Unavailable Susannah Blankenship [facility] Unavailable [phone] Carolyn Huynh [facility] Unavailable [phone] Vika Kevin APRN ECONOMETRICS PROFESSOR Unavailable + Marilyn Willard MD Unavailable [phone] Carie Varela DO Unavailable +[phone] Maylin May NP Unavailable [phone] Marisa Rodrigues RN Unavailable Unavailable Vilma Long MD Unavailable + [phone] Yasmeen Pendleton [facility] Unavailable [phone] Cole George Unavailable Fletcher Russell Unavailable Unavailable Buatista Casey MD Unavailable AnnyJasmyn tracey [facility] Unavailable +[phone] Vika Kevin APRN [facility] Primary Care Prov ider Vika Kevin APRN [facility] Primary Care Prov ider Yasmeen Pendleton [facility] Unavailable [phone] Vika [facility] Primary Care Prov ider Encounter Details Date Type Department Care Team (Late st Contact Info) Description 01/03/2014 MyC Medical Advice [address] [address] Niko Resendiz MD [address] [place] [address] [id number] Social History Tobacco Use Types Packs/Day Years Used Date Smoking Tobacco: Former Cigarettes 0.3 15 0 10/26/1961 - 10/26/1976 Smokeless Tobacco: Never Alcohol Use Standard Drinks/Week Comments Yes 0 (1 standard drink = 0.6 oz pur e alcohol) 1-2 glasses of wine weekly Comments No Sex and Gender Information Value Date Recorded Sex Assigned at Not on file Legal Sex Female 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 Gender Identity Not on file Sexual Orientation [...] Out COVID-19 12/04/2020 12/04/2020 12/05/2020 6:04 PM WEB CONTENT PRODUCER documented as of this encounter Care Teams Commercial Announcer Relationship Specialty Start Date End Date Andrew Lu MD XXX RETIRED XXX [address] [place] [phone] PCP - General 12/10/01 01/10/14 Niko Resendiz MD [address] [place] [address] PCP - General Internal Medicine 01/11/14 01/29/14 Carlie Mac MD [address] [place] [address] PCP - General Pediatrics 01/30/14 07/17/15 Angella Mendieta MD [address] [place] [address]22 PCP - General Family Practice 07/18/15 09/11/15 Julito Banuelos MD [address] [place] [address] 35716 PCP - General Family Practice 09/12/15 09/23/21 Julito Banuelos MD [address] [place] [address]358 PCP - Assigned PCP 02/17/16 12/28/18 Vika Kevin APRN ECONOMETRICS PROFESSOR [address] [place] [address] PCP - General Nurse Practitioner - Family 09/24/21 03/05/22 Vika Kevin APRN ECONOMETRICS PROFESSOR [address] [place] [address] PCP - General Nurse Practitioner - Family 03/18/22 06/18/22 Vika Kevin APRN ECONOMETRICS PROFESSOR [address] [place] [address] [phone] PCP - General Nurse Practitioner - Family 07/24/22 Julito Banuelos MD [address] [place] [address] 756672 Assigned PCP 02/17/16 07/21/[address] [place] [address] Public Stenographer Dietitian, Registered 04/14/19 [facility] Pharmacist 08/01/19 04/20/20 Susannah Blankenship, [facility] [address] [place] [address] [address] [place], [place] [address] Pharmacist Pharmacist 08/08/19 04/15/21 Carolyn Huynh, [facility] [address] [place] [address] Pharmacist Pharmacist 06/25/20 04/15/21 Vika Kevin APRN ECONOMETRICS PROFESSOR [address] [place] [address] [phone] Assigned PCP 07/22/20 11/16/24 Marilyn Willard MD [address] [place] [address] [address] [place], [place] 830345 Assigned Surgical Provider 08/17/20 08/16/24 Carie Varela DO [address] [place] [address] Assigned Heart and Vascular Provider 08/17/20 01/19/21 Maylin May NP [address] [place] [address] Assigned Pediatric Specialist Provider 12/16/20 06/13/22 Marisa Rodrigues, RN Clinic History Department Chair 01/15/21 02/26/21 Vilma Long MD [address] [place] [address] Assigned Heart and Vascular Provider 01/20/21 07/20/21 Yasmeen Pendleton [facility] [address] [place] [address] Pharmacist Pharmacist 06/04/21 01/15/22 Cole George LISW Lead History Department Chair 06/13/21 10/07/21 Fletcher Up Community Health Worker 06/13/21 09/12/21 Bautista Casey MD [address] [place] [address] Assigned Heart and Vascular Provider 07/21/21 01/16/23 Jasmyn Oliver CHW Community Health Worker 09/13/21 10/07/21 Yasmeen Pendleton [facility] [address] [place] [address] Assigned MTM Pharmacist 03/22/22 01/02/23 documented as of this encounter
--- OUTSIDE RECORDS SUMMARY | 2025-04-14 00:48 | XMS_ITS | Encounter Summary ---
Author Organization [place] Address [address] [facility] [place] [address] Care Team Providers Care Corporate Director Talent Assessment Name Role Phone Niko Resendiz MD Primary Care Provider Carlie Mac MD Primary Care Provide r Angella Mendieta MD Primary Care Provider Julito Banuelos MD Primary Care Provider [phone] Julito Banuelos MD Unavailable Julito Banuelos MD Unavailable Aleshia Henriquez RD Unavailable Unavailable Mary Kay Jones RP Unavailable Unavailable Susannah Blankenship [facility] Unavailable [phone] Carolyn Huynh [facility] Unavailable [phone] Vika Kevin CONTINGENTS SUPERVISOR INTELLIGENCE OPERATIONS SPECIALIST Unavailable + Marilyn Willard MD Unavailable [phone] Carie Varela DO Unavailable +[phone] Maylin May NP Unavailable [phone] Marisa Hernandez RN Unavailable Unavailable Vilma Long MD Unavailable + [phone] Yasmeen Pendleton [facility] Unavailable Cole George Unavailable Unavai jonathan Up Fletcher Unavailable Unavailable Ip, Bautista Bell MD Unavailable TatyanaJasmyn anand W Unavailable +[phone] Vika Kevin CONTINGENTS SUPERVISOR [facility] Primary Care Prov ider Vika Kevin [facility] Primary Care Prov ider Yasmeen Pendleton [facility] Unavailable + [phone] Vika Kevin [facility] Primary Care Prov ider Reason for Visit * Reason Onset Date Comments Other 01/28/2014 PCP change Encounter Details Date Type Department Care Team (Late st Contact Info) Description 01/28/2014 [facility] Medical Advice [address] [address] Carlie Mac MD [address] [place] [address] Other (PCP change ) Social [...] on file Legal Sex Female 3:22 AM LEASE OUT MAN Gender Identity Not on file Sexual [...] Out COVID-19 12/04/2020 12/04/2020 12/05/2020 6:04 PM LEASE OUT MAN documented as of this encounter Care Teams Corporate Director Talent Assessment Relationship Specialty Start Date End Date Niko Resendiz MD [address] [place] [address] PCP - General Internal Medicine 01/11/14 01/29/14 Carlie Mac MD [address] [place] [address] PCP - General Pediatrics 01/30/14 07/17/15 Angella Mendieta MD [address] [place] [address] PCP - General Family Practice 07/18/15 09/11/15 Julito Banuelos MD [address] [place] [address] 511[address] PCP - General Family Practice 09/12/15 09/23/21 Julito Banuelos MD [address] [place] [address] 67148 PCP - Assigned PCP 02/17/16 12/28/18 Vika Kevin APRN INTELLIGENCE OPERATIONS SPECIALIST [address] [place] [address] 19951 PCP - General Nurse Practitioner - Family 09/24/21 03/05/22 Vkia Kevin APRN INTELLIGENCE OPERATIONS SPECIALIST [address] [place] [address] PCP - General Nurse Practitioner - Family 03/18/22 06/18/22 Vika Kevin, JAIME INTELLIGENCE OPERATIONS SPECIALIST [address] [place] [address] 320452 PCP - General Nurse Practitioner - Family 07/24/22 Julito Banuelos MD [address] [place] [address] 467002 Assigned PCP 02/17/16 07/21/[address] [place] [address] Hot Mill Tin Roller Dietitian, Registered 04/14/19 Mary Kay Jones, [facility] Pharmacist 08/01/19 04/20/20 Susannah Blankenship, [facility] [address] [facility] [address] [place], [place] [address] Pharmacist Pharmacist 08/08/19 04/15/21 [facility] [address] [place], [place] [address] Pharmacist Pharmacist 06/25/20 04/15/21 Vika Kevin, JAIME INTELLIGENCE OPERATIONS SPECIALIST [address] [place] [address] [phone] Assigned PCP 07/22/20 11/16/24 Marilyn Willard MD [address] [facility] [address] [place], [place] 2965[address] Assigned Surgical Provider 08/17/20 08/16/24 Carie Varela DO [address] [place] [address] Assigned Heart and Vascular Provider 08/17/20 01/19/21 Maylin May NP [address] [facility] [place] [address] Assigned Pediatric Specialist Provider 12/16/20 06/13/22 Marisa Rodrigues, RN Clinic Junior Programmer 01/15/21 02/26/21 Vilma Long MD [address] [place] [address] Assigned Heart and Vascular Provider 01/20/21 07/20/21 [facility] [address] [place] [address] Pharmacist Pharmacist 06/04/21 01/15/22 Cole George LISW Lead Junior Programmer 06/13/21 10/07/21 Fletcher Up Community Health Worker 06/13/21 09/12/21 Bautista Casey MD [address] [place] [address] Assigned Heart and Vascular Provider 07/21/21 01/16/23 Jasmyn Oliver CHW Community Health Worker 09/13/21 10/07/21 [facility] [address] [place] [address] Assigned MTM Pharmacist 03/22/22 01/02/23 documented as of this encounter
--- OUTSIDE RECORDS SUMMARY | 2025-04-14 00:48 | XMS_ITS | Encounter Summary ---
Author Organization [place] Address [address] [facility] [place] [address] Care Team Providers Care Physician Relations Specialist Name Role Phone Julito Banuelos MD Primary Care Provider [phone] Julito Banuelos MD Unavailable Aleshia Henriquez RD Unavailable Unavailable Susannah Blankenship [facility] Unavailable [phone] Carolyn Huynh [facility] Unavailable [phone] Vika Kevin APRN CATALOGUE ILLUSTRATOR Unavailable + Marilyn Willard MD Unavailable [phone] Carie Varela DO Unavailable [phone] Maylin May NP Unavailable [phone] Marisa Hernandez RN Unavailable Unavailable Vilma Long MD Unavailable + [phone] Yasmeen Pendleton [facility] Unavailable Cole George Unavailable Fletcher Russell Unavailable Unavailable Bautista Casey MD Unavailable [phone] Jasmyn Oliver Unavailable [phone] Vika Kevin APRN CATALOGUE ILLUSTRATOR Primary Care Prov ider Vika Kevin APRN [facility] Primary Care Prov ider Yasmeen Pendleton [facility] Unavailable + [phone] Vika Kevin APRN [facility] Primary Care [facility] ider Reason for Visit * Reason Comments Medication Refill Encounter Details Date Type Department Care Team (Late st Contact Info) Description 06/26/[address] [address] [place] [address] [place] [address] Medication Refill Social History Tobacco Use [...] on file Legal Sex Female 3:22 AM FISHERY BIOLOGIST Gender Identity Not on file Sexual Orientation [...] per RN protocol Leslye Steiner RN, BSN [facility] Triage * Telephone Encounter - Maylin Diaz - 06/26/2020 9:18 AM CDT Patient's calling already to see if this can be done today. Advised of the refill policy. Francisca Diaz, Before School documented in this encounter Plan of Treatment Not on file documented as of this encounter Visit Diagnoses Diagnosis Environmental allergies Allergic rhinitis, cause unspecified documented in this encounter Additional Health Concerns Infection Onset Date Last Indicated Resolved Time Rule Out COVID-19 07/25/2020 07/25/2020 07/26/2020 3:02 PM CDT Rule Out COVID-19 12/04/2020 12/04/2020 12/05/2020 6:04 PM FISHERY BIOLOGIST Assessment Noted Time PHQ-9 Depression Total Score: 12 020 3:35 PM CDT documented as of this encounter Care Teams Physician Relations Specialist Relationship Specialty Start Date End Date Julito Banuelos MD [address] [place] [address] PCP - General Family Practice 09/12/15 09/23/21 Vika Kevin APRN CATALOGUE ILLUSTRATOR [address] [place] [address] PCP - General Nurse Practitioner - Family 09/24/21 03/05/22 Vika Kevin APRN CATALOGUE ILLUSTRATOR [address] [place] [address] PCP - General Nurse Practitioner - Family 03/18/22 06/18/22 Vika Kevin APRN CATALOGUE ILLUSTRATOR [address] [place] [address] PCP - General Nurse Practitioner - Family 07/24/22 Julito Banuelos MD [address] [place] [address] Assigned PCP 02/17/16 07/21/[address] [place] [address] Data Control Assistant Dietitian, Registered 04/14/19 Susannah Blankenship, [facility] [address] [facility] [address] [place] [address] Pharmacist Pharmacist 08/08/19 04/15/21 Carolyn Huynh, [facility] [address] [place] [address] Pharmacist Pharmacist 06/25/20 04/15/21 Vika Kevin APRN CATALOGUE ILLUSTRATOR [address] [place] [address] 624732 Assigned PCP 07/22/20 11/16/24 Marilyn Willard MD 420 [facility] [address] [place], [place] 45[address] Assigned Surgical Provider 08/17/20 08/16/24 Carie Varela DO [address] [place] [id number] Assigned Heart and Vascular Provider 08/17/20 01/19/21 Maylin May NP [address] [place] [address] Assigned Pediatric Specialist Provider 12/16/20 06/13/22 Marisa Rodrigues, RN Clinic Supervisor Conditioning Yard 01/15/21 02/26/21 Vilma Long MD [address] [place] 176305 Assigned Heart and Vascular Provider 01/20/21 07/20/21 Yasmeen Pendleton [facility] [address] [place], [place] [address] Pharmacist Pharmacist 06/04/21 01/15/22 Cole George LISW Lead Supervisor Conditioning Yard 06/13/21 10/07/21 Fletcher Up Community Health Worker 06/13/21 09/12/21 Bautista Casey MD [address] [place], [place] [address] Assigned Heart and Vascular Provider 07/21/21 01/16/23 Jasmyn Oliver CHW Community Health Worker 09/13/21 10/07/21 Yasmeen Pendleton [facility] [address] [place] [address] Assigned MTM Pharmacist 03/22/22 01/02/23 documented as of this encounter
--- OUTSIDE RECORDS SUMMARY | 2025-04-14 00:48 | XMS_ITS | Encounter Summary ---
Author Organization [place] Address [address] [facility] [place] [address] Care Team Providers Care Progress Man Name Role Phone Anrdew Lu MD Primary Care Provider [phone] Niko Resendiz MD Primary Care Provider Carlie Mac MD Primary Care Provide r Angella Mendieta MD Primary Care Provider Julito Banuelos MD Primary Care Provider [phone] Julito Banuelos MD Unavailable Julito Banuelos MD Unavailable Aleshia Henriquez RD Unavailable Unavailable Mary Kay Jones [facility] Unavailable Unavailable Susannah Blankenship [facility] Unavailable [phone] Carolyn Huynh [facility] Unavailable [phone] Vika Kevin APRN JEWEL SETTER Unavailable + Marilyn Willard MD Unavailable [phone] Carie Varela DO Unavailable [phone] Maylin May NP Unavailable [phone] Marisa Rodrigues RN Unavailable Unavailable Vilma Long MD Unavailable + [phone] Yasmeen Pendleton [facility] Unavailable [phone] Cole George Unavailable Fletcher Russell Unavailable Unavailable Bautista Casey MD Unavailable AnnyJasmyn tracey [facility] Unavailable [phone] Vika Kevin APRN [facility] Primary Care Prov ider Vika Kevin APRN [facility] Primary Care Prov ider Yasmeen Pendleton [facility] Unavailable [phone] [facility] Primary Care Prov ider Encounter Details Date Type Department Care Team (Late st Contact Info) Description 05/25/2007 My[facility] Medical Advice [address] [phone] Andrew Lu MD XXX RETIRED XXX [address] [place] [phone] Social History Tobacco Use Types Packs/Day Years Used Date Smoking Tobacco: Former Cigarettes 0.3 15 0 10/26/1961 - 10/26/1976 Alcohol Use Standard Drinks/Week Comments Yes 0 (1 standard drink = 0.6 oz pur e alcohol) 1 wine 2x qweek Comments No Sex and Gender Information Value Date Recorded Sex Assigned at Not on file Legal Sex Female 3:22 AM DIALYSIS REGISTERED NURSE Gender Identity Not on file Sexual Orientation Not on file documented as of this encounter Plan of Treatment Not on file documented as of this encounter Visit Diagnoses Not on filedocumented in this encounter Additional Health Concerns Infection Onset Date Last Indicated Resolved Time Rule Out COVID-19 07/25/2020 07/25/2020 07/26/2020 3:02 PM CDT Rule Out COVID-19 12/04/2020 12/04/2020 12/05/2020 6:04 PM DIALYSIS REGISTERED NURSE documented as of this encounter Care Teams Progress Man Relationship Specialty Start Date End Date Andrew Lu MD XXX RETIRED XXX [address] [place] [phone] PCP - General 12/10/01 01/10/14 Niko Resendiz MD [address] [place] [address] 20207 PCP - General Internal Medicine 01/11/14 01/29/14 Carlie Mac MD [address] [place], [place] [phone] PCP - General Pediatrics 01/30/14 07/17/15 Angella Mendieta MD [address] [place] [address] [id number] PCP - General Family Practice 07/18/15 09/11/15 Julito Banuelos MD [address] [place] [address] [phone] PCP - General Family Practice 09/12/15 09/23/21 Julito Banuelos MD [address] [place] [address]194 PCP - Assigned PCP 02/17/16 12/28/18 Vika Kevin APRN JEWEL SETTER [address] [place] [address] 579182 PCP - General Nurse Practitioner - Family 09/24/21 03/05/22 Vika Kevin APRN JEWEL SETTER [address] [place] [address] [phone] PCP - General Nurse Practitioner - Family 03/18/22 06/18/22 Vika Kevin APRN JEWEL SETTER [address] [place] [address] [phone] PCP - General Nurse Practitioner - Family 07/24/22 Julito Banuelos MD [address] [place] [address] [phone] Assigned PCP 02/17/16 07/21/[address] [place] [address] Sanitation Lead Dietitian, Registered 04/14/19 Mary Kay Jones, [facility] Pharmacist 08/01/19 04/20/20 [facility] [address] [place] [address] 8[address] [place], [place] [address] Pharmacist Pharmacist 08/08/19 04/15/21 [facility] [address] [place] [address] Pharmacist Pharmacist 06/25/20 04/15/21 Vika Kevin APRN JEWEL SETTER [address] [place] [address] 540782 Assigned PCP 07/22/20 11/16/24 Marilyn Willard MD [address] [place] [address] [address] [place], [place] [address] Assigned Surgical Provider 08/17/20 08/16/24 Carie Varela DO [address] [place] [address] Assigned Heart and Vascular Provider 08/17/20 01/19/21 Maylin May NP [address] [place] [address] Assigned Pediatric Specialist Provider 12/16/20 06/13/22 Marisa Rodrigues, RN Clinic Trolley Collector 01/15/21 02/26/21 Vilma Long MD [address] [place] [address] Assigned Heart and Vascular Provider 01/20/21 07/20/21 Yasmeen Pendleton [facility] [address] [place] [address] Pharmacist Pharmacist 06/04/21 01/15/22 Cole George LISW Lead Trolley Collector 06/13/21 10/07/21 Fletcher Up Community Health Worker 06/13/21 09/12/21 Bautista Casey MD [address] [place] [address] Assigned Heart and Vascular Provider 07/21/21 01/16/23 Jasmyn Oliver CHW Community Health Worker 09/13/21 10/07/21 Yasmeen Pendleton [facility] [address] [place] [address] Assigned MTM Pharmacist 03/22/22 01/02/23 documented as of this encounter
--- OUTSIDE RECORDS SUMMARY | 2025-04-14 00:48 | XMS_ITS | Encounter Summary ---
Author Organization [place] Address [address] [place] [address] Care Team Providers Care Healthcare Network Consultant Name Role Phone Andrew Lu MD Primary Care Provider [phone] Niko Resendiz MD Primary Care Provider Carlie Mac MD Primary Care Provide r Angella Mendieta MD Primary Care Provider Julito Banuelos MD Primary Care Provider [phone] Julito Banuelos MD Unavailable Julito Banuelos MD Unavailable Aleshia Henriquez RD Unavailable Unavailable Mary Kay Jones [facility] Unavailable Unavailable Susannah Blankenship [facility] Unavailable [phone] Carolyn Huynh [facility] Unavailable +[phone] Vika Kevin APRN TREE WRAPPER Unavailable + Marilyn Willard MD Unavailable [phone] Carie Varela DO Unavailable +[phone] Maylin May NP Unavailable [phone] Marisa Rodrigues RN Unavailable Unavailable Vilma Long MD Unavailable + [phone] Yasmeen Pendleton [facility] Unavailable + [phone] Cole George Unavailable Fletcher Russell Unavailable Unavailable Bautista Casey MD Unavailable [phone] DemetriusJasmyn wright [facility] Unavailable [phone] Vika Kevin APRN [facility] Primary Care Prov ider Vika Kevin APRN [facility] Primary Care Prov ider Yasmeen Pendleton [facility] Unavailable + [phone] Vika Kevin APRN [facility] Primary Care Prov ider Encounter Details Date Type Department Care Team (Late st Contact Info) Description 01/05/2014 MyC Medical Advice [address] [address] Mary Cha LPN Social History [...] on file Legal 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 Gender Identity Not on file Sexual [...] Out COVID-19 12/04/2020 12/04/2020 12/05/2020 6:04 PM ERECTOR OPERATOR documented as of this encounter Care Teams Healthcare Network Consultant Relationship Specialty Start Date End Date Andrew Lu MD XXX RETIRED XXX [address] [place] [address] PCP - General 12/10/01 01/10/14 Niko Resendiz MD [address] [place] [address] PCP - General Internal Medicine 01/11/14 01/29/14 Carlie Mac MD [address] [place] [address] PCP - General Pediatrics 01/30/14 07/17/15 Angella Mendieta MD [address] [place] [address] PCP - General Family Practice 07/18/15 09/11/15 Julito Banuelos MD [address] [place] [address] PCP - General Family Practice 09/12/15 09/23/21 Julito Banuelos MD [address] [place] [address] 22702 PCP - Assigned PCP 02/17/16 12/28/18 Vika Kevin APRN TREE WRAPPER [address] [place] [address] PCP - General Nurse Practitioner - Family 09/24/21 03/05/22 Vika Kevin APRN TREE WRAPPER [address] [place] [address] PCP - General Nurse Practitioner - Family 03/18/22 06/18/22 Vika Kevin APRN TREE WRAPPER [address] [place] [address] [phone] PCP - General Nurse Practitioner - Family 07/24/22 Julito Banuelos MD [address] [place] [address] [phone] Assigned PCP 02/17/16 07/21/[address] [place] [address] Qualification Engineer Dietitian, Registered 04/14/19 Mary Kay Jones, [facility] Pharmacist 08/01/19 04/20/20 [facility] [address] [place] [address] [address] [place], [place] 697615 Pharmacist Pharmacist 08/08/19 04/15/21 [facility] [address] [place], [place] [phone] Pharmacist Pharmacist 06/25/20 04/15/21 Vika Kevin APRN TREE WRAPPER [address] [place] [address] [phone] Assigned PCP 07/22/20 11/16/24 Marilyn Willard MD [address] [place] [address] [address] [place] [address] Assigned Surgical Provider 08/17/20 08/16/24 Carie Varela DO [address] [place], [place] 47[address] Assigned Heart and Vascular Provider 08/17/20 01/19/21 Maylin May NP [address] [place] [address] Assigned Pediatric Specialist Provider 12/16/20 06/13/22 Marisa Rodrigues, RN Clinic Rig Superintendent 01/15/21 02/26/21 Vilma Long MD [address] [place] [address] Assigned Heart and Vascular Provider 01/20/21 07/20/21 Yasmeen Pendleton [facility] [address] [place] [address] Pharmacist Pharmacist 06/04/21 01/15/22 Cole George LISW Lead Rig Superintendent 06/13/21 10/07/21 Fletcher Up Community Health Worker 06/13/21 09/12/21 Bautista Casey MD [address] [place] [address] Assigned Heart and Vascular Provider 07/21/21 01/16/23 Jasmyn Oliver CHW Community Health Worker 09/13/21 10/07/21 Yasmeen Pendleton [facility] [address] [place] [address] [phone] Assigned MTM Pharmacist 03/22/22 01/02/23 documented as of this encounter
--- OUTSIDE RECORDS SUMMARY | 2025-04-14 00:48 | XMS_ITS | Encounter Summary ---
Author Organization [place] Address [address] [facility] [place] [address] Care Team Providers Care Car Lubricator Name Role Phone Julito Banuelos MD Primary Care Provider [phone] Unavailable Unavailable Susannah Blankenship [facility] Unavailable [phone] Carolyn Huynh [facility] Unavailable [phone] Vika Kevin APRN [facility] Unavailable + Marilyn Willard MD Unavailable [phone] Maylin May NP Unavailable [phone] Vilma Long MD Unavailable + [phone] Yasmeen Pendleton [facility] Unavailable [phone] Cole George Unavailable Fletcher Russell Unavailable Unavailable Bautista Casey MD Unavailable [phone] Jasmyn Oliver Unavailable [phone] Vika Kevin APRN [facility] Primary Care Prov ider Vika Kevin APRN [facility] Primary Care Prov ider Yasmeen Pendleton [facility] Unavailable [phone] Vika Kevin APRN CLUBHOUSE MANAGER Primary Care Prov ider Encounter Details Date Type Department Care Team (Late st Contact Info) Description 03/18/2021 MyC Medical Advice [address] [place] [address] Susannah Blankenship, [facility] 420 [facility] [address] [place] [address] Social History Tobacco Use Types Packs/Day Years [...] on file Legal Sex Female 3:22 AM LAYER OFF Gender Identity Not on file Sexual Orientation [...] Depression Total Score: 10 020 9:30 AM LAYER OFF documented as of this encounter Care Teams Car Lubricator Relationship Specialty Start Date End Date Julito Banuelos MD [address] [place] [address] [phone] PCP - General Family Practice 09/12/15 09/23/21 Vika Kevin APRN CLUBHOUSE MANAGER [address] [place] [address] 308252 PCP - General Nurse Practitioner - Family 09/24/21 03/05/22 Vika Kevin APRN CLUBHOUSE MANAGER [address] [place] [address] PCP - General Nurse Practitioner - Family 03/18/22 06/18/22 Vika Kevin APRN CLUBHOUSE MANAGER [address] [place] [address] PCP - General Nurse Practitioner - Family 07/24/[address] [place] [address] Senior Chemist Dietitian, Registered 04/14/19 Susannah Blankenship, [facility] 420 [facility] [address] [place] [address] Pharmacist Pharmacist 08/08/19 04/15/21 [facility] [address] [place] [address] Pharmacist Pharmacist 06/25/20 04/15/21 Vika Kevin APRN CLUBHOUSE MANAGER [address] [place] [address] Assigned PCP 07/22/20 11/16/24 Marilyn Willard MD 420 [facility] [address] [place], [place] [address] Assigned Surgical Provider 08/17/20 08/16/24 Maylin May NP [address] [place] [address] Assigned Pediatric Specialist Provider 12/16/20 06/13/22 Vilma Long MD [address] [place] [address] Assigned Heart and Vascular Provider 01/20/21 07/20/21 [facility] [address] [place] [address] 327175 Pharmacist Pharmacist 06/04/21 01/15/22 Cole George LISW Lead Classroom Coordinator 06/13/21 10/07/21 Fletcher Up Community Health Worker 06/13/21 09/12/21 Bautista Casey MD [address] [place] [address] Assigned Heart and Vascular Provider 07/21/21 01/16/23 Jasmyn Oliver [facility] Community Health Worker 09/13/21 10/07/21 Yasmeen Pendleton, [facility] [address] [place] [address] Assigned MTM Pharmacist 03/22/22 01/02/23 documented as of this encounter
--- OUTSIDE RECORDS SUMMARY | 2025-04-14 00:48 | XMS_ITS | Encounter Summary ---
Author Organization [place] Address [address] [facility] [place] [address] Care Team Providers Care Hearing Aid Assistant Name Role Phone Cortez Lu MD Primary Care Provider [phone] Niko Resendiz MD Primary Care Provider Carlie Mac MD Primary Care Provide r Angella Mendieta MD Primary Care Provider Julito Banuelos MD Primary Care Provider [phone] Julito Banuelos MD Unavailable Julito Banuelos MD Unavailable Aleshia Henriquez RD Unavailable Unavailable Mary Kay Jones [facility] Unavailable Unavailable Susannah Blankenship [facility] Unavailable [phone] Carolyn Huynh [facility] Unavailable [phone] Vika Kevin APRN MOTORBOAT MECHANIC INBOARD/OUTBOARD Unavailable + Marilyn Willard MD Unavailable [phone] Carie Varela DO Unavailable [phone] Maylin May NP Unavailable [phone] Marisa Rodrigues RN Unavailable Unavailable Vilma Long MD Unavailable + [phone] Yasmeen Pendleton [facility] Unavailable + [phone] Cole George Unavailable Fletcher Russell Unavailable Unavailable Bautista Casey MD Unavailable [phone] TatyanaJasmyn anand [facility] Unavailable [phone] Vika Kevin APRN [facility] Primary Care Prov ider Vika Kevin APRN [facility] Primary Care Prov ider Yasmeen Pendleton [facility] Unavailable + [phone] Vika [facility] Primary Care Prov ider Encounter Details Date Type Department Care Team (Late st Contact Info) Description 12/23/2013 Office Visit-[facility] [address] [facility] [address] [place] [address] Cristy Hanna, JAIME [facility] XXX RESIGNED XXX [address] [facility] [address] [place] [id number] Social History Tobacco Use Types Packs/Day Years Used Date Smoking Tobacco: Former Cigarettes 0.3 15 0 10/26/1961 - 10/26/1976 Smokeless Tobacco: Never Alcohol Use Standard Drinks/Week Comments Yes 0 (1 standard drink = 0.6 oz pur e alcohol) 1-2 glasses of wine weekly Comments No Sex and Gender Information Value Date Recorded Sex Assigned at Not on file Legal Sex Female 3:22 AM ACCOUNTS 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 Diabetes Thiyzbdk-Kfs-Bxjnxbd Dependent, 250.00 2. - Hyperlipidemia mixed, 272.2 [...] 10. Nasacort AQ 55 mcg Aerosol, [place], Take as Directed 11. Plavix 75 mg [...] pleasure of seeing Marialuisa Cosby at the [facility].She is a 73-year-old white female with a history of coronary artery disease, hypertension, diabetes, dyslipidemia, and asthma. She is here today to review her recent event monitor. Her cardiovascular history includes hypertension, diabetes, and dyslipidemia. In December 2012 while visiting in [place], she had a non-ST elevation myocardial infarction and underwent an angiogram withPCI to the proximal and mid circumflex. LV function has been normal by echocardiogram. Apparently, that legal executive recommended lifelong Plavix. She established care here [...] and two episodes of tachycardia in the tuber helper hours of December 09, 2013. Maximum heart [...] Leg syndrome Past Cardiac Illnesses: CAD, s/p [place] Surgeries/Procedures - General: hysterectomy, tonsillectomy Cardiac/Vasc Procedures-Invasive: left heart cath 12/2012 ([place]) Cardiology Procedures-NonInvasive: echocardiogram Jun 2007, myocardial perfusion (Nuc) Jun 2007, echo 12/2012 ([place]), stress echo February 2013 Cardiac Cath Results: 12/2012 [place] Resolute NELIA to the mid and prox [...] - lives with ; Place of - [place]; REVIEW OF SYSTEMS GENERAL feeling much better [...] Out COVID-19 12/04/2020 12/04/2020 12/05/2020 6:04 PM ACCOUNTS RECEIVABLE ACCOUNTANT documented as of this encounter Care Teams Hearing Aid Assistant Relationship Specialty Start Date End Date Cortez Lu MD XXX RETIRED XXX [address] [place] [phone] PCP - General 12/10/01 01/10/14 Niko Resendiz MD [address] [place] [address] PCP - General Internal Medicine 01/11/14 01/29/14 Carlie Mac MD [address] [place] [address] PCP - General Pediatrics 01/30/14 07/17/15 Angella Mendieta MD [address] [place] [address] PCP - General Family Practice 07/18/15 09/11/15 Julito Banuelos MD [address] [place] [address] 706352 PCP - General Family Practice 09/12/15 09/23/21 Julito Banuelos MD [address] [place] [address]17 PCP - Assigned PCP 02/17/16 12/28/18 Vika Kevin APRN MOTORBOAT MECHANIC INBOARD/OUTBOARD [address] [place] [address] PCP - General Nurse Practitioner - Family 09/24/21 03/05/22 Vika Kevin APRN MOTORBOAT MECHANIC INBOARD/OUTBOARD [address] [place] [address] PCP - General Nurse Practitioner - Family 03/18/22 06/18/22 Vika Kevin APRN MOTORBOAT MECHANIC INBOARD/OUTBOARD [address] [place] [address] [phone] PCP - General Nurse Practitioner - Family 07/24/22 Julito Banuelos MD [address] [place] [address] 030432 Assigned PCP 02/17/16 07/21/[address] [place] [address] Grounds Maintenance Supervisor Dietitian, Registered 04/14/19 Mary Kay Jones, [facility] Pharmacist 08/01/19 04/20/20 [facility] [address] [place] [address] 8[address] [place], [place] [address] Pharmacist Pharmacist 08/08/19 04/15/21 Carolyn Huynh [facility] [address] [place] [address] Pharmacist Pharmacist 06/25/20 04/15/21 Vika Kevin APRN MOTORBOAT MECHANIC INBOARD/OUTBOARD [address] [place] [address] [phone] Assigned PCP 07/22/20 11/16/24 Marilyn Willard MD [address] [place] [address] [address] [place], [place] [address] Assigned Surgical Provider 08/17/20 08/16/24 Carie Varela DO [address] [place] [address] Assigned Heart and Vascular Provider 08/17/20 01/19/21 Maylin May NP [address] [place] [address] Assigned Pediatric Specialist Provider 12/16/20 06/13/22 Marisa Rodrigues, RN Clinic Behavioral Pediatrician 01/15/21 02/26/21 Vilma Long MD [address] [place] [address] Assigned Heart and Vascular Provider 01/20/21 07/20/21 [facility] [address] [place] [address] [phone] Pharmacist Pharmacist 06/04/21 01/15/22 Cole George LISW Lead Behavioral Pediatrician 06/13/21 10/07/21 Fletcher Up Community Health Worker 06/13/21 09/12/21 Bautista Casey MD [address] [place] [address] Assigned Heart and Vascular Provider 07/21/21 01/16/23 Jasmyn Oliver CHW Community Health Worker 09/13/21 10/07/21 Yasmeen Pendleton [facility] [address] [place] [address] Assigned MTM Pharmacist 03/22/22 01/02/23 documented as of this encounter
--- OUTSIDE RECORDS SUMMARY | 2025-04-14 00:48 | XMS_ITS | Encounter Summary ---
Author Organization [place] Address [address] [facility] [place] [address] Care Team Providers Care Ditch Repairer Name Role Phone Julito Banuelos MD Primary Care Provider [phone] Julito Banuelos MD Unavailable Aleshia Henriquez RD Unavailable Unavailable Susannah Blankenship [facility] Unavailable [phone] Carolyn Huynh [facility] Unavailable [phone] Vika Kevin APRN WINDSHIELD TECHNICIAN Unavailable + Marilyn Willard MD Unavailable +[phone] Carie Varela DO Unavailable +[phone] Maylin May NP Unavailable [phone] Marisa Hernandez RN Unavailable Unavailable Vilma Long MD Unavailable + [phone] Yasmeen Pendleton [facility] Unavailable Cole George Unavailable Fletcher Russell Unavailable Unavailable Bautista Casey MD Unavailable [phone] Jasmyn Oliver Unavailable +[phone] Vika Kevin APRN WINDSHIELD TECHNICIAN Primary Care Prov ider Vika Kevin APRN [facility] Primary Care Prov ider Yasmeen Pendleton [facility] Unavailable + [phone] Vika Kevin APRN [facility] Primary Care [facility] ider Reason for Visit * Reason Comments Medication Refill Encounter Details Date Type Department Care Team (Late st Contact Info) Description 07/03/[address] [address] [place] [address] [place] [address] Medication Refill Social History Tobacco Use [...] file Legal 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 Female 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 Gender Identity Not on file Sexual Orientation [...] per RN protocol Leslye Steiner RN, BSN [place] Triage documented in this encounter Plan of Treatment Not on file documented as of this encounter Visit Diagnoses Diagnosis Gastroesophageal reflux disease without esophagitis Esophageal reflux documented in this encounter Additional Health Concerns Infection Onset Date Last Indicated Resolved Time Rule Out COVID-19 07/25/2020 07/25/2020 07/26/2020 3:02 PM CDT Rule Out COVID-19 12/04/2020 12/04/2020 12/05/2020 6:04 PM MEAT TEAM MEMBER Assessment Noted Time PHQ-9 Depression Total Score: 12 06/19/ 020 3:35 PM CDT documented as of this encounter Care Teams Ditch Repairer Relationship Specialty Start Date End Date Julito Banuelos MD [address] [place] [address] PCP - General Family Practice 09/12/15 09/23/21 Vika Kevin APRN WINDSHIELD TECHNICIAN [address] [place] [address] PCP - General Nurse Practitioner - Family 09/24/21 03/05/22 Vika Kevin APRN WINDSHIELD TECHNICIAN [address] [place] [address]104 PCP - General Nurse Practitioner - Family 03/18/22 06/18/22 Vika Kevin APRN WINDSHIELD TECHNICIAN [address] [place] [address] PCP - General Nurse Practitioner - Family 07/24/22 Julito Banuelos MD [address] [place] [address] Assigned PCP 02/17/16 07/21/[address] [place] [address] Product Assembler Dietitian, Registered 04/14/19 Susannah Blankenship, [facility] [address] [place] [address] 8[address] [place] [address] Pharmacist Pharmacist 08/08/19 04/15/21 Carolyn Huynh [facility] [address] [place], [place] [address] Pharmacist Pharmacist 06/25/20 04/15/21 Vika Kevin APRN WINDSHIELD TECHNICIAN [address] [place], [place] 138852 Assigned PCP 07/22/20 11/16/24 Marilyn Willard MD 420 [facility] [address] [place], [place] [address] Assigned Surgical Provider 08/17/20 08/16/24 Carie Varela DO [address] [place] [address] Assigned Heart and Vascular Provider 08/17/20 01/19/21 Maylin May NP [address] [place], [place] [id number] Assigned Pediatric Specialist Provider 12/16/20 06/13/22 Marisa Rodrigues, RN Clinic Tableau Report Developer 01/15/21 02/26/21 Vilma Long MD [address] [place] [address] Assigned Heart and Vascular Provider 01/20/21 07/20/21 Yasmeen Pendleton [facility] [address] [place], [place] [address] Pharmacist Pharmacist 06/04/21 01/15/22 Cole George LISW Lead Tableau Report Developer 06/13/21 10/07/21 Fletcher Up Community Health Worker 06/13/21 09/12/21 Bautista Casey MD [address] [place] [address] Assigned Heart and Vascular Provider 07/21/21 01/16/23 Jasmyn Oliver CHW Community Health Worker 09/13/21 10/07/21 Yasmeen Pendleton [facility] [address] [place] [address] Assigned MTM Pharmacist 03/22/22 01/02/23 documented as of this encounter
--- OUTSIDE RECORDS SUMMARY | 2025-04-14 00:48 | XMS_ITS | Encounter Summary ---
Author Organization [place] Address [address] [facility] [place] [address] Care Team Providers Care Pipe Fitter Helper Name Role Phone Andrew Lu MD Primary Care Provider [phone] Niko Resendiz MD Primary Care Provider Carlie Mac MD Primary Care Provide r Angella Mendieta MD Primary Care Provider Julito Banuelos MD Primary Care Provider [phone] Julito Banuelos MD Unavailable Julito Banuelos MD Unavailable Aleshia Henriquez RD Unavailable Unavailable Mary Kay Jones [facility] Unavailable Unavailable Susannah Blankenship [facility] Unavailable +[phone] Carolyn Huynh [facility] Unavailable +[phone] Vika Kevin APRN PLASTIC SHEETING CUTTER Unavailable + Marilyn Willard MD Unavailable [phone] Carie Varela DO Unavailable +[phone] Maylin May NP Unavailable [phone] Marisa Rodrigues RN Unavailable Unavailable Vilma Long MD Unavailable + [phone] Yasmeen Pendleton [facility] Unavailable +[phone] Cole George Unavailable Fletcher Russell Unavailable Unavailable Bautista Casey MD Unavailable AnnyJasmyn tracey [facility] Unavailable +[phone] Vika Kevin APRN [facility] Primary Care Prov ider Vika Kevin APRN [facility] Primary Care Prov ider Yasmeen Pendleton [facility] Unavailable [phone] Vika [facility] Primary Care Prov ider Encounter Details Date Type Department Care Team (Late st Contact Info) Description 06/08/2007 MyC Medical Advice [address] [phone] Andrew Lu MD XXX RETIRED XXX [address] [place] [address] [phone] Social History Tobacco Use Types Packs/Day Years Used Date Smoking Tobacco: Former Cigarettes 0.3 15 0 10/26/1961 - 10/26/1976 Alcohol Use Standard Drinks/Week Comments Yes 0 (1 standard drink = 0.6 oz pur e alcohol) 1 wine 2x qweek Comments No Sex and Gender Information Value Date Recorded Sex Assigned at Not on file 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 Gender Identity Not on file Sexual Orientation Not on file documented as of this encounter Plan of Treatment Not on file documented as of this encounter Visit Diagnoses Not on filedocumented in this encounter Additional Health Concerns Infection Onset Date Last Indicated Resolved Time Rule Out COVID-19 07/25/2020 07/25/2020 07/26/2020 3:02 PM CDT Rule Out COVID-19 12/04/2020 12/04/2020 12/05/2020 6:04 PM OSHA INSPECTOR documented as of this encounter Care Teams Pipe Fitter Helper Relationship Specialty Start Date End Date Andrew Lu MD XXX RETIRED XXX [address] [place] [phone] PCP - General 12/10/01 01/10/14 Niko Resendiz MD [address] [place] [address]9766 PCP - General Internal Medicine 01/11/14 01/29/14 Carlie Mac MD [address] [place], [place] [id number] PCP - General Pediatrics 01/30/14 07/17/15 Angella Mendieta MD [address] [place] [address] 896222 PCP - General Family Practice 07/18/15 09/11/15 Julito Banuelos MD [address] [place] [address] [phone] PCP - General Family Practice 09/12/15 09/23/21 Julito Banuelos MD [address] [place] [address] 93302 PCP - Assigned PCP 02/17/16 12/28/18 Vika Kevin APRN PLASTIC SHEETING CUTTER [address] [place] [address] [phone] PCP - General Nurse Practitioner - Family 09/24/21 03/05/22 Vika Kevin APRN PLASTIC SHEETING CUTTER [address] [place] [address] [phone] PCP - General Nurse Practitioner - Family 03/18/22 06/18/22 Vika Kevin APRN PLASTIC SHEETING CUTTER [address] [place] [address] 329202 PCP - General Nurse Practitioner - Family 07/24/22 Julito Banuelos MD [address] [place] [address] 232842 Assigned PCP 02/17/16 07/21/[address] [place] [address] 589[address] Data Collection Associate Dietitian, Registered 04/14/19 Mary Kay Jones, [facility] Pharmacist 08/01/19 04/20/20 [facility] [address] [place] [address] 812 [place], [place] 488905 Pharmacist Pharmacist 08/08/19 04/15/21 [facility] [address] [place] [address] Pharmacist Pharmacist 06/25/20 04/15/21 Vika Kevin APRN PLASTIC SHEETING CUTTER [address] [place] [address] 474142 Assigned PCP 07/22/20 11/16/24 Marilyn Willard MD [address] [place] [address] [address] [place], [place] 857205 Assigned Surgical Provider 08/17/20 08/16/24 Carie Varela DO [address] [place] [address] Assigned Heart and Vascular Provider 08/17/20 01/19/21 Maylin May NP [address] [place] [address] Assigned Pediatric Specialist Provider 12/16/20 06/13/22 Marisa Rodrigues, RN Clinic Confidential Secretary 01/15/21 02/26/21 Vilma Long MD [address] [place] [address] Assigned Heart and Vascular Provider 01/20/21 07/20/21 Yasmeen Pendleton [facility] [address] [place] [address] Pharmacist Pharmacist 06/04/21 01/15/22 Cole George LISW Lead Confidential Secretary 06/13/21 10/07/21 Fletcher Up Community Health Worker 06/13/21 09/12/21 Bautista Casey MD [address] [place] [address] Assigned Heart and Vascular Provider 07/21/21 01/16/23 Jasmyn Oliver CHW Community Health Worker 09/13/21 10/07/21 Yasmeen Pendleton [facility] [address] [place] [address] Assigned MTM Pharmacist 03/22/22 01/02/23 documented as of this encounter
--- OUTSIDE RECORDS SUMMARY | 2025-04-14 00:48 | XMS_ITS | Encounter Summary ---
Author Organization [place] Address [address] [facility] [place] [address] Care Team Providers Care Wallpaper Hanger Name Role Phone Andrew Lu MD Primary Care Provider [phone] Niko Resendiz MD Primary Care Provider Carlie Mac MD Primary Care Provide r Angella Mendieta MD Primary Care Provider Julito Banuelos MD Primary Care Provider [phone] Julito Banuelos MD Unavailable Julito Banuelos MD Unavailable Aleshia Henriquez RD Unavailable Unavailable Mary Kay Jones [facility] Unavailable Unavailable Susannah Blankenship [facility] Unavailable [phone] Carolyn Huynh [facility] Unavailable [phone] Vika Kevin APRN HVAC INSTRUCTOR Unavailable + Marilyn Willard MD Unavailable [phone] Carie Varela DO Unavailable [phone] Maylin May NP Unavailable [phone] Marisa Rodrigues RN Unavailable Unavailable Vilma Long MD Unavailable + [phone] Yasmeen Pendleton [facility] Unavailable + [phone] Cole George Unavailable Fletcher Russell Unavailable Unavailable Bautista Casey MD Unavailable AnnyJasmyn tracey [facility] Unavailable [phone] Vika Kevin APRN [facility] Primary Care Prov ider Vika Kevin APRN [facility] Primary Care Prov ider Yasmeen Pendleton [facility] Unavailable + [phone] [facility] Primary Care Prov ider Encounter Details Date Type Department Care Team (Late st Contact Info) Description 01/10/2014 MyC Medical Advice [facility] - Primary Care [address] [place] [phone] Emilie Dolan MD Social History Tobacco Use [...] on file Legal Sex Female 3:22 AM GIS PHYSICAL SCIENTIST Gender Identity Not on file Sexual Orientation [...] Out COVID-19 12/04/2020 12/04/2020 12/05/2020 6:04 PM GIS PHYSICAL SCIENTIST documented as of this encounter Care Teams Wallpaper Hanger Relationship Specialty Start Date End Date Andrew Lu MD XXX RETIRED XXX [address] [place] [address] PCP - General 12/10/01 01/10/14 Niko Resendiz MD [address] [place] [address]143 PCP - General Internal Medicine 01/11/14 01/29/14 Carlie Mac MD [address] [place] [address] PCP - General Pediatrics 01/30/14 07/17/15 Angella Mendieta MD [address] [place] [address] 47353 PCP - General Family Practice 07/18/15 09/11/15 Julito Banuelos MD [address] [place] [address] 55967 PCP - General Family Practice 09/12/15 09/23/21 Julito Banuelos MD [address] [place] [address] 86468 PCP - Assigned PCP 02/17/16 12/28/18 Vika Kevin APRN HVAC INSTRUCTOR [address] [place] [address] 45796 PCP - General Nurse Practitioner - Family 09/24/21 03/05/22 Vika Kevin APRN HVAC INSTRUCTOR [address] [place] [address] 12724 PCP - General Nurse Practitioner - Family 03/18/22 06/18/22 Vika Kevin APRN HVAC INSTRUCTOR [address] [place] [address] [phone] PCP - General Nurse Practitioner - Family 07/24/22 Julito Banuelos MD [address] [place] [address] [phone] Assigned PCP 02/17/16 07/21/[address] [place] [address] 51418 Surgery Scheduler Dietitian, Registered 04/14/19 Mary Kay Jones, [facility] Pharmacist 08/01/19 04/20/20 [facility] [address] [place] [address] 8[address] [place], [place] 4[address]45 Pharmacist Pharmacist 08/08/19 04/15/21 [facility] [address] [place], [place] [phone] Pharmacist Pharmacist 06/25/20 04/15/21 Vika Kevin APRN HVAC INSTRUCTOR [address] [place] [address] [phone] Assigned PCP 07/22/20 11/16/24 Marilyn Willard MD [address] [place] [address] [address] [place] [address] Assigned Surgical Provider 08/17/20 08/16/24 Carie Varela DO [address] [place], [place] 336075 Assigned Heart and Vascular Provider 08/17/20 01/19/21 Maylin May NP [address] [place] [address] Assigned Pediatric Specialist Provider 12/16/20 06/13/22 Marisa Rodrigues, RN Clinic Putty And Caulking Supervisor 01/15/21 02/26/21 Vilma Long MD [address] [place] [address] Assigned Heart and Vascular Provider 01/20/21 07/20/21 Yasmeen Pendleton [facility] [address] [place] [address] Pharmacist Pharmacist 06/04/21 01/15/22 Cole George LISW Lead Putty And Caulking Supervisor 06/13/21 10/07/21 Fletcher Up Community Health Worker 06/13/21 09/12/21 Bautista Casey MD [address] [place] [address] Assigned Heart and Vascular Provider 07/21/21 01/16/23 Jasmyn Oliver CHW Community Health Worker 09/13/21 10/07/21 Yasmeen Pendleton [facility] [address] [place] [address] [phone] Assigned MTM Pharmacist 03/22/22 01/02/23 documented as of this encounter
--- OUTSIDE RECORDS SUMMARY | 2025-04-14 00:48 | XMS_ITS | Encounter Summary ---
Author Organization [place] Address [address] [place] [address] Care Team Providers Care Quarry Extraction Worker Name Role Phone Niko Resendiz MD Primary Care Provider Carlie Mac MD Primary Care Provide r Angella Mendieta MD Primary Care Provider Julito Banuelos MD Primary Care Provider Julito Banuelos MD Unavailable Julito Banuelos MD Unavailable Aleshia Henriquez RD Unavailable Unavailable Mary Kay Jones RP Unavailable Unavailable Susannah Blankenship [facility] Unavailable [phone] Carolyn Huynh [facility] Unavailable [phone] Vika Kevin DIRECTOR COMPENSATION [address] VENDOR Unavailable + Marilyn Willard MD Unavailable Carie Varela DO Unavailable [phone] Maylin May NP Unavailable [phone] Marisa Hernandez RN Unavailable Unavailable Vilma Long MD Unavailable + [phone] Yasmeen Pendleton [facility] Unavailable Cole George Unavailable Unavai jonathan Up Fletcher Unavailable Unavailable Ip, Bautista Bell MD Unavailable [phone] TatyanaJasmyn anand W Unavailable [phone] Vika Kevin DIRECTOR COMPENSATION [facility] Primary Care Prov ider Vika Kevin [facility] Primary Care Prov ider Yasmeen Pendleton [facility] Unavailable + [phone] Vika Kevin [facility] Primary Care Prov ider Reason for Visit * Reason Onset Date Comments Medication Question 01/28/2014 Update Encounter Details Date Type Department Care Team (Late st Contact Info) Description 01/28/2014 [facility] Medical Advice [address] [phone] Carlie Mac MD [address] [place] [address] Medication Question (Update ) Social [...] file Legal Sex Female 3:22 AM RADIO SCRIPT WRITER Gender Identity Not on file Sexual Orientation [...] COVID-19 12/04/2020 12/04/2020 12/05/2020 6:04 PM RADIO SCRIPT WRITER documented as of this encounter Care Teams Quarry Extraction Worker Relationship Specialty Start Date End Date Niko Resendiz MD [address] [place] [address]262 PCP - General Internal Medicine 01/11/14 01/29/14 Carlie Mac MD [address] [place] [address] PCP - General Pediatrics 01/30/14 07/17/15 Angella Mendieta MD [address] [place] [address] PCP - General Family Practice 07/18/15 09/11/15 Julito Banuelos MD [address] [place] [address] 56840 PCP - General Family Practice 09/12/15 09/23/21 Julito Banuelos MD [address] [place] [address] 05602 PCP - Assigned PCP 02/17/16 12/28/[address] V[address]N [address] VENDOR [address] [place] [address] 15862 PCP - General Nurse Practitioner - Family 09/24/21 03/05/22 Vika Kevin APRN [address] VENDOR [address] [place] [address] 53956 PCP - General Nurse Practitioner - Family 03/18/22 06/18/22 Vika Kevin APRN [address] VENDOR [address] [place] [address] PCP - General Nurse Practitioner - Family 07/24/22 Julito Banuelos MD [address] [place] [address] [phone] Assigned PCP 02/17/16 07/21/[address] [place] [address] 24072 It Desktop Support Technician Dietitian, Registered 04/14/19 Mary Kay Jones, [facility] Pharmacist 08/01/19 04/20/20 Susannah Blankenship [facility] [address] [facility] [address] [place], [place] 7213[address] Pharmacist Pharmacist 08/08/19 04/15/21 Carolyn Huynh, [facility] [address] [place], [place] 404[address] Pharmacist Pharmacist 06/25/20 04/15/21 Vika Kevin, JAIME [address] VENDOR [address] [place] [address] 869222 Assigned PCP 07/22/20 11/16/24 Marilyn Willard MD [address] [facility] [address] [place], [place] 743165 Assigned Surgical Provider 08/17/20 08/16/24 Carie Varela DO [address] [place] [address] Assigned Heart and Vascular Provider 08/17/20 01/19/21 Maylin May NP [address] [place] [address] Assigned Pediatric Specialist Provider 12/16/20 06/13/22 Marisa Rodrigues, RN Clinic Slaughterer Religious Ritual 01/15/21 02/26/21 Vilma Long MD [address] [place] [address] Assigned Heart and Vascular Provider 01/20/21 07/20/21 [facility] [address] [place] [address] Pharmacist Pharmacist 06/04/21 01/15/22 Cole George LISW Lead Slaughterer Religious Ritual 06/13/21 10/07/21 Fletcher Up Community Health Worker 06/13/21 09/12/21 Bautista Casey MD [address] [place] [address] Assigned Heart and Vascular Provider 07/21/21 01/16/23 Jasmyn Oliver CHW Community Health Worker 09/13/21 10/07/21 [facility] [address] [place] [address] Assigned MTM Pharmacist 03/22/22 01/02/23 documented as of this encounter
--- OUTSIDE RECORDS SUMMARY | 2025-04-14 00:48 | XMS_ITS | Encounter Summary ---
Author Organization [place] Address [address] [facility] [place] [address] Care Team Providers Care Counter Maker Name Role Phone Cortez Lu MD Primary Care Provider [phone] Niko Resendiz MD Primary Care Provider Carlie Mac MD Primary Care Provide r Angella Mendieta MD Primary Care Provider Julito Banuelos MD Primary Care Provider [phone] Julito Banuelos MD Unavailable Julito Banuelos MD Unavailable Aleshia [address]quez RD Unavailable Unavailable Mary Kay Jones [facility] Unavailable Unavailable Susannah Blankenship [facility] Unavailable [phone] Carolyn Huynh [facility] Unavailable [phone] Vika Kevin APRN GAS APPLIANCE ADJUSTER Unavailable + Marilyn Willard MD Unavailable [phone] Carie Varela DO Unavailable [phone] Maylin May NP Unavailable [phone] Marisa Rodrigues RN Unavailable Unavailable Vilma Long MD Unavailable + [phone] Yasmeen Pendleton [facility] Unavailable + [phone] Cole George Unavailable Fletcher Russell Unavailable Unavailable Bautista Casey MD Unavailable +[phone] TatyanaJasmyn anand [facility] Unavailable [phone] Vika Kevin APRN [facility] Primary Care Prov ider Vika Kevin APRN [facility] Primary Care Prov ider Yasmeen Pendleton [facility] Unavailable + [phone] Vika Kevin [facility]ST. [facility] Primary Care Prov ider Encounter Details Date Type Department Care Team (Late st Contact Info) Description 12/01/2013 Office Visit-[facility] Heart [facility] [address] [facility] [address] [place] [address] Cristy Hanna, JAIME [facility] XXX RESIGNED XXX [address] [facility] [address] [place] [id number] Social History Tobacco Use Types Packs/Day Years Used Date Smoking Tobacco: Former Cigarettes 0.3 15 0 10/26/1961 - 10/26/1976 Smokeless Tobacco: Never Alcohol Use Standard Drinks/Week Comments Yes 0 (1 standard drink = 0.6 oz pur e alcohol) 1-2 glasses of wine weekly Comments No Sex and Gender Information Value Date Recorded Sex Assigned at Not on file Legal Sex Female 3:22 AM INTELLIGENCE CONSULTANT Gender Identity Not on file Sexual [...] old Referring Physician: CORTEZ LU Referring Clinic: [facility] CURRENT DIAGNOSES 1. 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 - Hyperlipidemia mixed, 272.2 [...] daily 10. Nasacort AQ 55 mcg Aerosol, [place], Take as Directed 11. Plavix 75 mg [...] the pleasure of seeing Marialuisa Cosby in [facility]. She is a 73-year-old white female with a history of coronary artery disease, hypertension, diabetes, dyslipidemia, and asthma who is here today to reevaluate her palpitations. Her cardiovascular history includes hypertension, diabetes, and dyslipidemia. In December,, whilevisiting in [place] she had a nbs-RE-uetdlwirf myocardial infarction and underwent an angiogram with PCI to the proximal and mid circumflex. LV function has been normal by echocardiogram. Apparently the learning support teacher in [place] recommended lifelong Plavix. She was seen by [...] tonsillectomy Cardiac/Vasc Procedures-Invasive: left heart cath 12/2012 ([place]) Cardiology Procedures-NonInvasive: echocardiogram Jun 2007, myocardial perfusion (Nuc) Jun 2007, echo 12/2012 ([place]), stress echo February 2013 Cardiac Cath Results: 12/2012 [place] [facility] [place] to the mid and prox [...] - lives with ; Place of - [place]; REVIEW OF SYSTEMS GENERAL fatigue, feels spacey [...] Weight- 215.00 lbs. Height- 67 BMI Measurement: PNP Therapeutics Error: [ConjuGon][ProNoxis SQL Executive Team Leader Nurse Clinician][SQL Executive Team Leader]Divide by zero error encountered. - [id number] CONSTITUTIONAL well developed, well nourished, in no [...] 2. Coronary artery disease. She had a kbc-OO-fihsueqvz myocardial infarction in December and remains on [...] Out COVID-19 12/04/2020 12/04/2020 12/05/2020 6:04 PM INTELLIGENCE CONSULTANT documented as of this encounter Care Teams Counter Maker Relationship Specialty Start Date End Date Cortez Lu MD XXX RETIRED XXX [address] [place] [phone] PCP - General 12/10/01 01/10/14 Niko Resendiz MD [address] [place] [address]333 PCP - General Internal Medicine 01/11/14 01/29/14 Carlie Mac MD [address] [place] [address] PCP - General Pediatrics 01/30/14 07/17/15 Angella Mendieta MD [address] [place] [address] PCP - General Family Practice 07/18/15 09/11/15 Julito Banuelos MD [address] [place] [address]49 PCP - General Family Practice 09/12/15 09/23/21 Julito Banuelos MD [address] [place] [address] PCP - Assigned PCP 02/17/16 12/28/18 Vika Kevin APRN GAS APPLIANCE ADJUSTER [address] [place] [address] 71356 PCP - General Nurse Practitioner - Family 09/24/21 03/05/22 Vika Kevin APRN GAS APPLIANCE ADJUSTER [address] [place] [address] PCP - General Nurse Practitioner - Family 03/18/22 06/18/22 Vika Kevin APRN GAS APPLIANCE ADJUSTER [address] [place] [address]43 PCP - General Nurse Practitioner - Family 07/24/22 Julito Banuelos MD [address] [place] [address] 14549 Assigned PCP 02/17/16 07/21/[address] [place] [address] Material Checker Dietitian, Registered 04/14/19 Mary Kay Jones [facility] Pharmacist 08/01/19 04/20/20 Susannah Blankenship [facility] [address] [place] [address] 812 [place] [address] Pharmacist Pharmacist 08/08/19 04/15/21 Carolyn Huynh, [facility] [address] [place] [address] Pharmacist Pharmacist 06/25/20 04/15/21 Vika Kevin, PBX SUPERVISOR GAS APPLIANCE ADJUSTER [address] [place], [place] 250782 Assigned PCP 07/22/20 11/16/24 Marilyn Willard MD [address] [facility] [address] [place] [address] Assigned Surgical Provider 08/17/20 08/16/24 Carie Varela DO [address] [place] [address] Assigned Heart and Vascular Provider 08/17/20 01/19/21 Maylin May NP [address] [place], [place] [address] Assigned Pediatric Specialist Provider 12/16/20 06/13/22 Marisa Rodrigues, RN Clinic Potato Spotter 01/15/21 02/26/21 Vilma Long MD [address] [place] [address] Assigned Heart and Vascular Provider 01/20/21 07/20/21 Yasmeen Pendleton [facility] [address] [place] [address] Pharmacist Pharmacist 06/04/21 01/15/22 Cole George LISW Lead Potato Spotter 06/13/21 10/07/21 Fletcher Up Community Health Worker 06/13/21 09/12/21 Bautista Casey MD [address] [place] [address] Assigned Heart and Vascular Provider 07/21/21 01/16/23 Jasmyn Oliver CHW Community Health Worker 09/13/21 10/07/21 Yasmeen Pendleton, [facility] [address] [place], [place] [address] Assigned MTM Pharmacist 03/22/22 01/02/23 documented as of this encounter
--- OUTSIDE RECORDS SUMMARY | 2025-04-14 00:48 | XMS_ITS | Encounter Summary ---
Author Organization Commerce Address [address] [facility] [place] [address] Care Team Providers Care Air Valve Mechanic Name Role Phone Andrew Lu MD Primary Care Provider [phone] Niko Resendiz MD Primary Care Provider Carlie Mac MD Primary Care Provide r Angella Mendieta MD Primary Care Provider Julito Banuelos MD Primary Care Provider [phone] Julito Banuelos MD Unavailable Julito Banuelos MD Unavailable Aleshia Henriquez RD Unavailable Unavailable Mary Kay Jones [facility] Unavailable Unavailable Susannah Blankenship [facility] Unavailable [phone] Carolyn Huynh [facility] Unavailable [phone] Vika Kevin APRN STAFF DESIGN ENGINEER Unavailable + Marilyn Willard MD Unavailable [phone] Carie Varela DO Unavailable [phone] Maylin May NP Unavailable [phone] Marisa Rodrigues RN Unavailable Unavailable Vilma Long MD Unavailable + [phone] Yasmeen Pendleton [facility] Unavailable [phone] Cole George Unavailable Fletcher Russell Unavailable Unavailable Bautista Casey MD Unavailable [phone] Jasmyn Oliver [facility] Unavailable [phone] Vika Kevin ELECTRONIC SCALE SUBASSEMBLER [facility] Primary Care Prov ider Vika Kevin APRN [facility] Primary Care Prov ider Yasmeen Pendleton [facility] Unavailable Vika Kevin [facility] Primary Care Prov ider Encounter Details Date Type Department Care Team (Late st Contact Info) Description 09/22/2010 MyC Medical Advice [address] [phone] Andrew Lu MD XXX RETIRED XXX [address] [place] [phone] Social History Tobacco Use Types Packs/Day Years Used Date Smoking Tobacco: Former Cigarettes 0.3 15 0 10/26/1961 - 10/26/1976 Alcohol Use Standard Drinks/Week Comments Yes 0 (1 standard drink = 0.6 oz pur e alcohol) 1 wine 2x qweek Comments No Sex and Gender Information Value Date Recorded Sex Assigned at Not on file Legal Sex Female 3:22 AM EYEDOTTER Gender Identity Not on file Sexual Orientation Not on file documented as of this encounter Miscellaneous Notes * Telephone Encounter - Andrew Lu - 10/02/2010 4:30 PM CST not clear why the results are taking so long? OTTER * Telephone Encounter - Vika Downing - 09/30/2010 3:17 PM CST The sleep study has not be read by DR Suggs yet. They will fax it over one it has been read. OTTER * Telephone Encounter - CoronaBo - 09/23/2010 10:28 AM CST Please get the sleep study results scanned int o epic. OTTER documented in this encounter Plan of Treatment Not on file documented as of this encounter Visit Diagnoses Not on filedocumented in this encounter Additional Health Concerns Infection Onset Date Last Indicated Resolved Time Rule Out COVID-19 07/25/2020 07/25/2020 07/26/2020 3:02 PM CDT Rule Out COVID-19 12/04/2020 12/04/2020 12/05/2020 6:04 PM EYEDOTTER documented as of this encounter Care Teams Air Valve Mechanic Relationship Specialty Start Date End Date Andrew Lu MD XXX RETIRED XXX [address] [place] [phone] PCP - General 12/10/01 01/10/14 Niko Resendiz MD [address] [address] PCP - General Internal Medicine 01/11/14 01/29/14 Carlie Mac MD [address] [place] [address] PCP - General Pediatrics 01/30/14 07/17/15 Angella Mendieta MD [address] [place] [address] PCP - General Family Practice 07/18/15 09/11/15 Julito Banuelos MD [address] [place] [address] PCP - General Family Practice 09/12/15 09/23/21 Julito Banuelos MD [address] [place] [address] PCP - Assigned PCP 02/17/16 12/28/18 Vika Kevin APRN STAFF DESIGN ENGINEER [address] [place] [address] PCP - General Nurse Practitioner - Family 09/24/21 03/05/22 Vika Kevin APRN STAFF DESIGN ENGINEER [address] [place] [address] PCP - General Nurse Practitioner - Family 03/18/22 06/18/22 Vika Kevin APRN STAFF DESIGN ENGINEER [address] [place] [address] PCP - General Nurse Practitioner - Family 07/24/22 Julito Banuelos MD [address] [place] [address] Assigned PCP 02/17/16 07/21/[address] [place] [address] Placement Interviewer Dietitian, Registered 04/14/19 Mary Kay Jones [facility] Pharmacist 08/01/19 04/20/20 Susannah Blankenship [facility] [address] [place] [address] [address] [place] [address] Pharmacist Pharmacist 08/08/19 04/15/21 Carolyn Huynh [facility] [address] [place] [address] Pharmacist Pharmacist 06/25/20 04/15/21 Vika Kevin APRN STAFF DESIGN ENGINEER [address] [place], [place] [address] Assigned PCP 07/22/20 11/16/24 Marilyn Willard MD [address] [facility] [address] [place], [place] [address] Assigned Surgical Provider 08/17/20 08/16/24 Carie Varela DO [address] [place] [address] Assigned Heart and Vascular Provider 08/17/20 01/19/21 Maylin May NP [address] [place], [place] [id number] Assigned Pediatric Specialist Provider 12/16/20 06/13/22 Marisa Rodrigues RN Clinic Fretted String Instrument Repairer 01/15/21 02/26/21 Vilma Long MD [address] [place] [address] Assigned Heart and Vascular Provider 01/20/21 07/20/21 Yasmeen Pendleton [facility] [address] [place] [address] Pharmacist Pharmacist 06/04/21 01/15/22 Cole George LISW Lead Fretted String Instrument Repairer 06/13/21 10/07/21 Fletcher Up Community Health Worker 06/13/21 09/12/21 Bautista Casey MD [address] [place] [address] Assigned Heart and Vascular Provider 07/21/21 01/16/23 Jasmyn Oliver CHW Community Health Worker 09/13/21 10/07/21 Yasmeen Pendleton [facility] [address] [place], [place] [address] Assigned MTM Pharmacist 03/22/22 01/02/23 documented as of this encounter
--- OUTSIDE RECORDS SUMMARY | 2025-04-14 00:48 | XMS_ITS | Clinical Summary ---
Author Organization [employer] Address [address] [facility] 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 Take 1 tablet [...] 20 MG tabletIndication s: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 03/31/2012 Coronary artery disease invo lving cahto coronary artery without angina pectoris 08/24/2015 Multiple [...] found in bladder incidentally 05/2013 Atherosclerosis of cahto co ronary artery of cahto heart with angina pectoris 12/27/2012 Overview (07/30/2019): [...] in adult, unspecified obesity type 01/14/2019 06/19/20 AK (myocardial infarction) 0 06/19/2021 DM (diabetes mellitus) [...] and Family Not on file 06/14/2021 Attends Church Services Not on file 06/14 Active Member [...] in a [facility] (including now)? 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 Not on file Not on file Last Filed Vital Signs Vital Sign Reading Time Taken Comments Blood Pressure 126/62 09/25/2021 12:08 PM HISTOLOGY SPECIALIST Pulse 102 09/25/2021 12:08 PM HISTOLOGY SPECIALIST Temperature 36.8 C (98.2 F) 09/25/2021 12:08 PM HISTOLOGY SPECIALIST Respiratory Rate 16 06/19/2021 3:30 PM CDT Oxygen Saturation 94% 09/25/2021 12:08 PM HISTOLOGY SPECIALIST Inhaled Oxygen Concentration - - Weight 81.6 [...] (Cologuard) Discontinued Medical Devices Implanted Type Area Communications Coordinator Device Identifier Shelf Expiration Date Model / Serial / Lot Imp Plate Syn 10/28 Tubular 85mm 07h Ss 241.37 Implanted:Qty : 1 on 01/12/2021 by Rom Martell MD at [facility] Metallic Hardware/Anc hor Right: Ankle SYNTHES-STRATEC 241.37 / / [id number] Imp Scr Syn Cortex 3.5x16mm Self Tap Ss 204.816 Implanted:Qty : 3 on 01/12/2021 by Rom Martell MD at [facility] Metallic Hardware/Anc hor Right: Ankle SYNTHES-STRATEC 204.816 / / [id number] Imp Scr Syn Can 4.0x14mm Ft Ss 206.014 Implanted:Qty : 1 on 01/12/2021 by Rom Martell MD at [facility] Metallic Hardware/Anc hor Right: Ankle SYNTHES-STRATEC 206.014 / / [id number] Imp Scr Syn Can 4.0x16mm Ft Ss 206.016 Implanted:Qty : 2 on 01/12/2021 by Rom Martell MD at [facility] Metallic Hardware/Anc hor Right: Ankle SYNTHES-STRATEC 206.016 / / [id number] Imp Scr Syn Can 4.0x50mm Ft Ss 206.050 Implanted:Qty : 1 on 01/12/2021 by Rom Martell MD at [facility] Metallic Hardware/Anc hor Right: Ankle SYNTHES-STRATEC 206.050 / / [id number] Procedures Procedure Name Priority Date/Time Associated Diagnosis Comments UA MACROSCOPIC WITH REFLEX TO MICRO AND CULTURE Routine 09/23/2021 3:09 PM HISTOLOGY SPECIALIST Urinary tract infection Cor[place] catheter in place [...] RANDOM URINE QUANTITATIVE Routine 08/28/2020 3:27 PM HISTOLOGY SPECIALIST Hypertension goal BP (blood pressure) < 140/90 [...] DEXA - HIM SCAN 11/02/2015 12:00 AM HISTOLOGY SPECIALIST EYE EXAM - HIM SCAN Routine 09/25/2014 HC SPIROMETRY, BREATH CAPACITY Routine 03/13/2011 ASTHMA - MODERATE PERSISTENT from Last 3 Months or Most Recently Relevant to Health Maintenance Results * (ABNORMAL) UA reflex to Microscopic and Culture (09/23/2021 3:09 PM HISTOLOGY SPECIALIST) Color Urine Yellow Colorless, Straw, Light Yellow, Yellow 09/23/2021 3:13 PM HISTOLOGY SPECIALIST [facility] Appearance Urine Clear Clear 09/23/20 3:13 PM HISTOLOGY SPECIALIST [facility] Glucose Urine Negative Negative mg/dL 09/23/2021 3:13 PM HISTOLOGY SPECIALIST [facility] Bilirubin Urine Negative Negative 3:13 PM HISTOLOGY SPECIALIST [facility] Ketones Urine Negative Negative mg/dL 09/23/2021 3:13 PM HISTOLOGY SPECIALIST [facility] Specific [place] Urine 1.020 1.003 - 1.035 09/23/2021 3:13 PM HISTOLOGY SPECIALIST [facility] Blood Urine Trace(A) Negative 09/23/2021 3:13 PM HISTOLOGY SPECIALIST [facility] pH Urine 6.0 5.0 - 7.0 09/23/2021 3:13 PM HISTOLOGY SPECIALIST [facility] Protein Albumin Urine 30(A) Negative mg/dL 09/23/2021 3:13 PM HISTOLOGY SPECIALIST [facility] Urobilinogen Urine 0.2 0.2, 1.0 E.U./dL 09/23/2021 3:13 PM HISTOLOGY SPECIALIST [facility] Nitrite Urine Positive(A) Negative 09/23/2021 3:13 PM HISTOLOGY SPECIALIST [facility] Leukocyte Esterase Urine Moderate(A) Negative 09/23/2021 3:13 PM HISTOLOGY SPECIALIST [facility] Urine URINE SPECIMEN OBTAINED VIA INDWELLING URINARY CATHETER / Unknown Non-blood Collection / Unknown 09/23/2021 3:09 PM HISTOLOGY SPECIALIST 09/23/2021 3:09 PM HISTOLOGY SPECIALIST us Julito Banuelos MD LAB - URINE ORDERABLES Final Res ult [facility] [address] [place] [address] [facility] (no room number, 1st floor of clinic) [place] [phone], [facility] [phone] * (ABNORMAL) Comprehensive metabolic panel (BMP + [...] 07/12/2021 9:45 AM CDT us Vika Kevin MALT HOUSE KILN OPERATOR CAGE LOADER LAB - BLOOD ORDERA BLES Final Result LABORATORY [facility] [address] Lab (no room number, 1st floor of clinic) [place] [address], [facility] [phone] * TSH with free T4 reflex (04/26/2021 12:18 PM CDT) TSH 1.56 0.40 - 4.00 mU/L 04/28/2021 10:28 AM CDT [facility] Blood 04/26/2021 12:1 8 PM CDT 04/26/2021 12:19 PM CDT us Vika Kevin APRN, CNP LAB - BLOOD ORDERA BLES Final Result Performing Organization Address City/[facility]/ZIP Co de Phone Number [facility] [address] [place] [phone] * Hemoglobin A1c (04/26/2021 12:18 PM CDT) Hemoglobin A1C 5.5 0 - 5.6 % 04/26/2021 12:54 PM CDT [facility] Comment: Normal <5.7% Prediabetes 5.7-6.4% Diabetes 6.5% or higher - adopted from ADA consensus guidelines. Blood 04/26/2021 12:1 8 PM CDT 04/26/2021 12:19 PM CDT us Vika Kevin APRN, CNP LAB - BLOOD ORDERA BLES Final Result Performing Organization Address [facility] Co de Phone Number [facility] [address] [place] [phone] * (ABNORMAL) Albumin Random Urine Quantitative with Creat Ratio (08/28/2020 3:27 PM HISTOLOGY SPECIALIST) Creatinine Urine 121 mg/dL 08/29/2020 5:22 PM HISTOLOGY SPECIALIST [facility] Albumin Urine mg/L 121 mg/L 08/29/2020 6:46 PM HISTOLOGY SPECIALIST [facility] Albumin Urine mg/g Cr 100.00(H) 0 - 25 mg/g Cr 08/29/2020 6:46 PM HISTOLOGY SPECIALIST [facility] Urine specimen (specimen) 08/28/2020 3:27 PM HISTOLOGY SPECIALIST 08/28/2020 3:28 PM HISTOLOGY SPECIALIST us Vika Kevin APRN, CNP LAB - URINE ORDERA BLES Final Result Performing Organization Address [facility]/ZIP Co de Phone Number [facility] [address] [place] [phone] * (ABNORMAL) Lipid panel reflex to direct LDL Fasting (07/20/2020 11:48 AM CDT) Cholesterol 103 <200 mg/dL 07/20/2020 6:34 PM CDT [facility] Triglycerides 118 <150 mg/dL 07/20/2020 6:33 PM CDT [facility] HDL Cholesterol 41(L) >49 mg/dL 0 6:39 PM CDT [facility] LDL Cholesterol Calculated 38 <100 mg/dL 07/20/2020 6:39 PM CDT [facility] Comment:Desirable: <100 mg/d l Non HDL Cholesterol 62 <130 mg/dL 07/20/2020 6:39 PM CDT [facility] Blood specimen (specimen) 07/20/2020 11:48 AM CDT 07/20/2020 11:50 AM CDT us Braeden Sow MD LAB - BLOOD ORDERABLES Final Result [facility] [address] [place] [address] * MA Diagnostic Right w/Jefry (04/15/2018 9:55 [...] * COLONOSCOPY (05/02/2016 7:39 AM CDT) Pathologist [facility] Patient Name: Marialuisa Cosby Procedure Date: [...] and oxygen saturations were monitored continuously. The [id number] was introduced through the anus and advanced [...] pathology results. Procedure Code(s): --- Professional --- 61224, Colonoscopy, flexible, proximal to splenic flexure; with removal of tumor(s), polyp(s), or other lesion(s) by snare technique 05072, Colonoscopy, flexible, proximal to splenic flexure; with directed submucosal injection(s), any substance CPT copyright 2013 [employer]. All rights reserved. The codes documented in this report are preliminary and upon radio division lieutenant review may be revised to meet current [...] Occult Blood Scn FIT Positive(A ) NEG [facility] Stool specimen (specimen) 04/16/2016 04/19/2016 12:54 PM CDT Julito Banuelos MD LAB - STOOLS ORDERABLES Final Re sult [facility] [address] [place] [address] * DEXA - HIM SCAN (11/02/2015 12:00 AM HISTOLOGY SPECIALIST) Anatomical Region Laterality Modality Other 11/02/2015 Provider Outside IMG DEXA ORDERABLES Final Resul t * Eye Exam - HIM Scan (09/25/2014) Narrative Genet Dora - 09/25/2014 for eye exam, had it done 09/2014 at [facility]. OR us Patient Reported OTHER Final Result * Spirometry, Breath Capacity (03/13/2011) Andrew Lu MD PROCEDURES Final Result from Last 3 Months or Most Recently Relevant to Health Maintenance Insurance [facility] MEDICARE ADVANTAGE [facility] MEDICARE ADVANTAGE * Guarantor: Marialuisa Cosby Account Type Relation to Patient Date of Phone Billing Address Medication Therapy Self [address] [place] [address] [facility] MEDICARE ADVANTAGE Advance Directives For more information, please contact: [phone] * Full Code (Latest Code Status on [...] 4:58 AM 07/03/2014 1:24 PM Care Teams Double End Tenoner Operator Relationship Specialty Start Date End Date Vika Kevin APRN CNP [address] [place] [address] PCP - General Nurse Practitioner - Family 07/24/[address] Stitchdown Toe Former Dietitian, Registered 04/14/19
--- OUTSIDE RECORDS SUMMARY | 2025-04-14 00:48 | XMS_ITS | Encounter Summary ---
Author Organization [address] Address [address] [facility] [place] [address] Care Team Providers Care Administrative Services Director Name Role Phone Andrew Lu MD Primary Care Provider [phone] Niko Resendiz MD Primary Care Provider Carlie Mac MD Primary Care Provide r Angella Mendieta MD Primary Care Provider Julito Banuelos MD Primary Care Provider [phone] Julito Banuelos MD Unavailable Julito Banuelos MD Unavailable Aleshia Henriquez RD Unavailable Unavailable Mary Kay Jones [facility] Unavailable Unavailable Susannah Blankenship [facility] Unavailable [phone] Carolyn Huynh [facility] Unavailable [phone] Vika Kevin APRN ANIMAL PATHOLOGIST Unavailable + Marilyn Willard MD Unavailable [phone] Carie Varela DO Unavailable [phone] Maylin May NP Unavailable [phone] Marisa Rodrigues RN Unavailable Unavailable Vilma Long MD Unavailable + [phone] Yasmeen Pendleton [facility] Unavailable [phone] Cole George Unavailable Fletcher Russell Unavailable Unavailable Bautista Casey MD Unavailable DemetriusJasmyn wright [facility] Unavailable [facility] Primary Care Prov ider Vika Kevin APRN [facility] Primary Care Prov ider Yasmeen Pendleton [facility] Unavailable [facility] Primary Care Prov ider Encounter Details Date Type Department Care Team (Late st Contact Info) Description 12/28/2013 MyC Medical Advice [facility] Skin [address] [place] [phone] Jenn Yip MD [address] [facility] [address] [place] [address] Social History Tobacco Use Types Packs/Day Years Used Date Smoking Tobacco: Former Cigarettes 0.3 15 0 10/26/1961 - 10/26/1976 Smokeless Tobacco: Never Alcohol Use Standard Drinks/Week Comments Yes 0 (1 standard drink = 0.6 oz pur e alcohol) 1-2 glasses of wine weekly Comments No Sex and Gender Information Value Date Recorded Sex Assigned at Not on file Legal Sex Female 3:22 AM TIP PRINTER Gender Identity Not on file Sexual Orientation [...] Out COVID-19 12/04/2020 12/04/2020 12/05/2020 6:04 PM TIP PRINTER documented as of this encounter Care Teams Administrative Services Director Relationship Specialty Start Date End Date Andrew Lu MD XXX RETIRED XXX [address] [place] [phone] PCP - General 12/10/01 01/10/14 Niko Resendiz MD [address] [place] [address] PCP - General Internal Medicine 01/11/14 01/29/14 Carlie Mac MD [address] [place] [address] PCP - General Pediatrics 01/30/14 07/17/15 Angella Mendieta MD [address] [place] [address] PCP - General Family Practice 07/18/15 09/11/15 Julito Banuelos MD [address] [place] [address] PCP - General Family Practice 09/12/15 09/23/21 Julito Banuelos MD [address] [place] [address] PCP - Assigned PCP 02/17/16 12/28/18 Vika Kevin APRN ANIMAL PATHOLOGIST [address] [place] [address] PCP - General Nurse Practitioner - Family 09/24/21 03/05/22 Vika Kevin APRN ANIMAL PATHOLOGIST [address] [place] [address] PCP - General Nurse Practitioner - Family 03/18/22 06/18/22 Vika Kevin APRN ANIMAL PATHOLOGIST [address] [place] [address] [phone] PCP - General Nurse Practitioner - Family 07/24/22 Julito Banuelos MD [address] [place] [address] 377892 Assigned PCP 02/17/16 07/21/[address] [place] [address] Acquisition Associate Dietitian, Registered 04/14/19 Mary Kay Jones, [facility] Pharmacist 08/01/19 04/20/20 Susannah Blankenship, [facility] [address] [facility] [address] [place], [place] [address] Pharmacist Pharmacist 08/08/19 04/15/21 Carolyn Huynh, [facility] [address] [place], [place] [address] Pharmacist Pharmacist 06/25/20 04/15/21 Vika Kevin, JAIME ANIMAL PATHOLOGIST [address] [place] [address] [phone] Assigned PCP 07/22/20 11/16/24 Marilyn Willard MD [address] [facility] [address] [place], [place] [phone] Assigned Surgical Provider 08/17/20 08/16/24 Carie Varela DO [address] [place] [address] Assigned Heart and Vascular Provider 08/17/20 01/19/21 Maylin May NP [address] [facility] [place] [address] Assigned Pediatric Specialist Provider 12/16/20 06/13/22 Marisa Rodrigues, RN Clinic Jet Wiper 01/15/21 02/26/21 Vilma Long MD [address] [place] [address] Assigned Heart and Vascular Provider 01/20/21 07/20/21 Yasmeen Pendleton [facility] [address] [place] [address] Pharmacist Pharmacist 06/04/21 01/15/22 Cole George LISW Lead Jet Wiper 06/13/21 10/07/21 Fletcher Up Community Health Worker 06/13/21 09/12/21 Bautista Casey MD [address] [place] [address] Assigned Heart and Vascular Provider 07/21/21 01/16/23 Jasmyn Oliver CHW Community Health Worker 09/13/21 10/07/21 [facility] [address] [place] [address] Assigned MTM Pharmacist 03/22/22 01/02/23 documented as of this encounter
--- OUTSIDE RECORDS SUMMARY | 2025-04-14 00:48 | XMS_ITS | Encounter Summary ---
Author Organization [place] Address [address] [facility] [place] [address] Care Team Providers Care Mid Level Business Analyst Name Role Phone Cortez Lu MD Primary Care Provider [phone] Niko Resendiz MD Primary Care Provider Carlie Mac MD Primary Care Provide r Angella Mendieta MD Primary Care Provider Julito Banuelos MD Primary Care Provider [phone] Julito Banuelos MD Unavailable Julito Banuelos MD Unavailable Aleshia Henriquez RD Unavailable Unavailable Mary Kay Jones [facility] Unavailable Unavailable Susannah Blankenship [facility] Unavailable [phone] Carolyn Huynh [facility] Unavailable +[phone] Vika Kevin APRN COMMERCIAL ESCROW ASSISTANT Unavailable + Marilyn Willard MD Unavailable [phone] Carie Varela DO Unavailable [phone] Maylin May NP Unavailable [phone] Marisa Rodrigues RN Unavailable Unavailable Vilma Long MD Unavailable + [phone] Yasmeen Pendleton [facility] Unavailable + [phone] Cole George Unavailable Fletcher Russell Unavailable Unavailable Bautista Casey MD Unavailable [phone] TatyanaJasmyn anand [facility] Unavailable [phone] Vika Kevin APRN [facility] Primary Care Prov ider Vika Kevin APRN [facility] Primary Care Prov ider Yasmeen Pendleton [facility] Unavailable + [phone] [facility] Primary Care Prov ider Encounter Details Date Type Department Care Team (Late st Contact Info) Description 11/14/2013 Office Visit-[facility] [address] [facility] [address] [place] [phone] Cristy Hanna, JAIME [facility] XXX RESIGNED XXX [address] [facility] [address] [place] [id number] Social History Tobacco Use Types Packs/Day Years Used Date Smoking Tobacco: Former Cigarettes 0.3 15 0 10/26/1961 - 10/26/1976 Smokeless Tobacco: Never Alcohol Use Standard Drinks/Week Comments Yes 0 (1 standard drink = 0.6 oz pur e alcohol) 1-2 glasses of wine weekly Comments No Sex and Gender Information Value Date Recorded Sex Assigned at Not on file Legal Sex Female 3:22 AM BROADCAST JOURNALIST Gender Identity Not on file Sexual Orientation [...] old Referring Physician: CORTEZ LU Referring Clinic: [facility] CURRENT DIAGNOSES 1. Diabetes Uwzpvmjp-Zbc-Tvkutjg Dependent, 250.00 2. - Hyperlipidemia mixed, 272.2 [...] daily 10. Nasacort AQ 55 mcg Aerosol, [place], Take as Directed 11. Plavix 75 mg [...] the pleasure of meeting Marialuisa James, at [facility]. She is a [...] Leg syndrome Past Cardiac Illnesses: CAD, s/p [place] Surgeries/Procedures - General: hysterectomy, tonsillectomy Cardiac/Vasc Procedures-Invasive: left heart cath 12/2012 ([place]) Cardiology Procedures-NonInvasive: echocardiogram Jun 2007, myocardial perfusion (Nuc) Jun 2007, echo 12/2012 ([place]), stress echo February 2013 Cardiac Cath Results: 12/2012 [place] [facility] NELIA to the mid and prox [...] [place] for 3 months; Place of - [place]; REVIEW OF SYSTEMS GENERAL fatigue, weight loss, [...] takes allergy shots, allergies get worse in [place] but they can get bad in [place] [...] Out COVID-19 12/04/2020 12/04/2020 12/05/2020 6:04 PM BROADCAST JOURNALIST documented as of this encounter Care Teams Mid Level Business Analyst Relationship Specialty Start Date End Date Cortez Lu MD XXX RETIRED XXX [address] [place] [phone] PCP - General 12/10/01 01/10/14 Niko Resendiz MD [address] [address] PCP - General Internal Medicine 01/11/14 01/29/14 Carlie Mac MD [address] [place] [address] PCP - General Pediatrics 01/30/14 07/17/15 Angella Mendieta MD [address] [place] [address] PCP - General Family Practice 07/18/15 09/11/15 Julito Banuelos MD [address] [place] [address] PCP - General Family Practice 09/12/15 09/23/21 Julito Banuelos MD [address] [place] [address] PCP - Assigned PCP 02/17/16 12/28/18 Vika Kevin APRN COMMERCIAL ESCROW ASSISTANT [address] [place] [address] PCP - General Nurse Practitioner - Family 09/24/21 03/05/22 Vika Kevin APRN COMMERCIAL ESCROW ASSISTANT [address] [place] [address] PCP - General Nurse Practitioner - Family 03/18/22 06/18/22 Vika Kevin APRN COMMERCIAL ESCROW ASSISTANT [address] [place] [address] PCP - General Nurse Practitioner - Family 07/24/22 Julito Banuelos MD [address] [place] [address] Assigned PCP 02/17/16 07/21/[address] [place] [address] Solar Energy Systems Engineer Dietitian, Registered 04/14/19 Mary Kay Jones [facility] Pharmacist 08/01/19 04/20/20 Susannah Blankenship [facility] [address] [place] [address] [address] [place] [address] Pharmacist Pharmacist 08/08/19 04/15/21 Carolyn Huynh [facility] [address] [place] [address] Pharmacist Pharmacist 06/25/20 04/15/21 Vika Kevin APRN COMMERCIAL ESCROW ASSISTANT [address] [place], [place] [address] Assigned PCP 07/22/20 11/16/24 Marilyn Willard MD [address] [facility] [address] [place], [place] [address] Assigned Surgical Provider 08/17/20 08/16/24 Carie Varela DO [address] [place] [id number] Assigned Heart and Vascular Provider 08/17/20 01/19/21 Maylin May NP [address] [place], [place] [id number] Assigned Pediatric Specialist Provider 12/16/20 06/13/22 Marisa Rodrigues, RN Clinic Small Brake Form Operator 01/15/21 02/26/21 Vilma Long MD [address] [place] [id number] Assigned Heart and Vascular Provider 01/20/21 07/20/21 Yasmeen Pendleton [facility] [address] [place], [place] [address] Pharmacist Pharmacist 06/04/21 01/15/22 Cole George LISW Lead Small Brake Form Operator 06/13/21 10/07/21 Fletcher Up Community Health Worker 06/13/21 09/12/21 Bautista Casey MD [address] [place] [address] Assigned Heart and Vascular Provider 07/21/21 01/16/23 Jasmyn Oliver CHW Community Health Worker 09/13/21 10/07/21 Yasmeen Pendleton [facility] [address] [place], [place] [address] Assigned MTM Pharmacist 03/22/22 01/02/23 documented as of this encounter
--- OUTSIDE RECORDS SUMMARY | 2025-04-14 00:49 | XMS_ITS | Encounter Summary ---
Author Organization [place] Address [address] [facility] [place] [address] Care Team Providers Care Cane Piler Name Role Phone Andrew Lu MD Primary Care Provider [phone] Niko Resendiz MD Primary Care Provider Carlie Mac MD Primary Care Provide r Angella Mendieta MD Primary Care Provider Julito Banuelos MD Primary Care Provider [phone] Julito Banuelos MD Unavailable Julito Banuelos MD Unavailable Aleshia Henriquez RD Unavailable Unavailable Mary Kay Jones [facility] Unavailable Unavailable Susannah Blankenship [facility] Unavailable [phone] Carolyn Huynh [facility] Unavailable [phone] Vika Kevin APRN VEHICLE OPERATOR Unavailable + Marilyn Willard MD Unavailable [phone] Carie Varela DO Unavailable [phone] Maylin May NP Unavailable [phone] Marisa Rodrigues RN Unavailable Unavailable Vilma Long MD Unavailable + [phone] Yasmeen Pendleton [facility] Unavailable [phone] Cole George Unavailable Fletcher Russell Unavailable Unavailable Bautista Casey MD Unavailable DemetriusJasmyn wright [facility] Unavailable [phone] Vika Kevin APRN [facility] Primary Care Prov ider Vika Kevin APRN [facility] Primary Care Prov ider Yasmeen Pendleton [facility] Unavailable [facility] Primary Care Prov ider Encounter Details Date Type Department Care Team (Latest Contact Info) Description 07/08/2013 Medical Correspondence [address] [phone] Andrew Lu MD XXX RETIRED XXX [address] [phone] [facility] 07/08/13 Social History [...] on file Legal Sex Female 3:22 AM APPLICATION PENETRATION TESTER Gender Identity Not on file Sexual [...] Out COVID-19 12/04/2020 12/04/2020 12/05/2020 6:04 PM APPLICATION PENETRATION TESTER documented as of this encounter Care Teams Cane Piler Relationship Specialty Start Date End Date Andrew Lu MD XXX RETIRED XXX [address] [place] [phone] PCP - General 12/10/01 01/10/14 Niko Resendiz MD [address] [place] [address] PCP - General Internal Medicine 01/11/14 01/29/14 Carlie Mac MD [address] [place] [address] PCP - General Pediatrics 01/30/14 07/17/15 Angella Mendieta MD [address] [place] [address] PCP - General Family Practice 07/18/15 09/11/15 Julito Banuelos MD [address] [place] [address] PCP - General Family Practice 09/12/15 09/23/21 Julito Banuelos MD [address] [place] [address] PCP - Assigned PCP 02/17/16 12/28/18 Vika Kevin APRN CNP [address] [place] [address] PCP - General Nurse Practitioner - Family 09/24/21 03/05/22 Vika Kevin APRN VEHICLE OPERATOR [address] [place] [address] PCP - General Nurse Practitioner - Family 03/18/22 06/18/22 Vika Kevin APRN VEHICLE OPERATOR [address] [place] [address] PCP - General Nurse Practitioner - Family 07/24/22 Julito Banuelos MD [address] [place] [address] 025442 Assigned PCP 02/17/16 07/21/[address] [place] [address] Systems Software Engineer Dietitian, Registered 04/14/19 Mary Kay Jones [facility] Pharmacist 08/01/19 04/20/20 Susannah Blankenship, [facility] [address] [place] [address] 8[address] [place], [place] [address] Pharmacist Pharmacist 08/08/19 04/15/21 Carolyn Huynh, [facility] [address] [place] [address] Pharmacist Pharmacist 06/25/20 04/15/21 Vika Kevin, JAIME VEHICLE OPERATOR [address] [place] [address] 559702 Assigned PCP 07/22/20 11/16/24 Marilyn Willard MD 420 [facility] [address] [place], [place] [address] Assigned Surgical Provider 08/17/20 08/16/24 Carie Varela DO [address] [place] [address] Assigned Heart and Vascular Provider 08/17/20 01/19/21 Maylin May NP [address] [place] [address] Assigned Pediatric Specialist Provider 12/16/20 06/13/22 Marisa Rodrigues, RN Clinic Administrative Director 01/15/21 02/26/21 Vilma Long MD [address] [place] [address] Assigned Heart and Vascular Provider 01/20/21 07/20/21 Yasmeen Pendleton [facility] [address] [place] [address]84[address] Pharmacist Pharmacist 06/04/21 01/15/22 Cole George LISW Lead Administrative Director 06/13/21 10/07/21 Fletcher Up Community Health Worker 06/13/21 09/12/21 Bautista Casey MD [address] [place] [address] Assigned Heart and Vascular Provider 07/21/21 01/16/23 Jasmyn Oliver CHW Community Health Worker 09/13/21 10/07/21 Yasmeen Pendleton [facility] [address] [place] [address] Assigned MTM Pharmacist 03/22/22 01/02/23 documented as of this encounter
--- OUTSIDE RECORDS SUMMARY | 2025-04-14 00:49 | XMS_ITS | Encounter Summary ---
Author Organization [place] Address [address] [facility] [place] [address] Care Team Providers Care Air Bag Buffer Name Role Phone Julito Banuelos MD Primary Care Provider [phone] Unavailable Unavailable Susannah Blankenship [facility] Unavailable [phone] Craolyn Huynh [facility] Unavailable [phone] Vika Kevin APRN [facility] Unavailable + Marilyn Willard MD Unavailable [phone] Carie Varela DO Unavailable [phone] Maylin May NP Unavailable [phone] Marisa Hernandez RN Unavailable Unavailable Vilma Long MD Unavailable + [phone] Yasmeen Pendleton [facility] Unavailable Cole George Unavailable Fletcher Russell Unavailable Unavailable Bautista Casey MD Unavailable [phone] Jasmyn Oilver Unavailable [phone] Vika Kevin APRN [facility] Primary Care Prov ider Vika Kevin APRN [facility] Primary Care Prov ider FrantzYasmeen barreto [facility] Unavailable [phone] Vika Kevin TIRE STRIPPER [facility] Primary Care Prov ider Encounter Details Date Type Department Care Team (Late st Contact Info) Description 08/14/2020 MyC Medical Advice [address] [place] [address] Susannah Blankenship, [facility] [address] [facility] [address] [place] [address] Social History Tobacco Use Types [...] on file Legal Sex Female 3:22 AM GROUP ACCOUNT DIRECTOR Gender Identity Not on file Sexual [...] Out COVID-19 12/04/2020 12/04/2020 12/05/2020 6:04 PM GROUP ACCOUNT DIRECTOR Assessment Noted Time PHQ-9 Depression Total Score: 020 1:07 PM CDT documented as of this encounter Care Teams Air Bag Buffer Relationship Specialty Start Date End Date Julito Banuelos MD [address] [place], [place] [address] PCP - General Family Practice 09/12/15 09/23/21 Vika Kevin, JAIME EDGING MACHINE SETTER [address] [place] [address] PCP - General Nurse Practitioner - Family 09/24/21 03/05/22 Vika Kevin APRN EDGING MACHINE SETTER [address] [place] [address] PCP - General Nurse Practitioner - Family 03/18/22 06/18/22 Vika Kevin APRN EDGING MACHINE SETTER [address] [place] [address] PCP - General Nurse Practitioner - Family 07/24/[address] [place] [address] Christian Counselor Dietitian, Registered 04/14/19 Susannah Blankenship, [facility] [address] [facility] [address] [place] [address] Pharmacist Pharmacist 08/08/19 04/15/21 Carolyn Huynh [facility] [address] [place] [address] Pharmacist Pharmacist 06/25/20 04/15/21 Vika Kevin, JAIME EDGING MACHINE SETTER [address] [place] [address] 977012 Assigned PCP 07/22/20 11/16/24 Marilyn Willard MD 420 [facility] [address] [place] [address] Assigned Surgical Provider 08/17/20 08/16/24 Carie Varela DO [address] [place] [address] Assigned Heart and Vascular Provider 08/17/20 01/19/21 Maylin May NP [address] [facility] [place] [address] Assigned Pediatric Specialist Provider 12/16/20 06/13/22 Marisa Rodrigues, RN Clinic Volleyball Assistant Coach 01/15/21 02/26/21 Vilma Long MD [address] [place] [address] Assigned Heart and Vascular Provider 01/20/21 07/20/21 [facility] [address] [place] [address] Pharmacist Pharmacist 06/04/21 01/15/22 Cole George LISW Lead Volleyball Assistant Coach 06/13/21 10/07/21 Fletcher Up Community Health Worker 06/13/21 09/12/21 Bautista Casey MD [address] [place] [address] Assigned Heart and Vascular Provider 07/21/21 01/16/23 Jasmyn Oliver CHW Community Health Worker 09/13/21 10/07/21 [facility] [address] [place] [address] Assigned MTM Pharmacist 03/22/22 01/02/23 documented as of this encounter
--- OUTSIDE RECORDS SUMMARY | 2025-04-14 00:49 | XMS_ITS | Encounter Summary ---
Author Organization [place] Address [address] [place] [address] Care Team Providers Care Nutrition Specialist Name Role Phone Julito Banuelos MD Primary Care Provider [phone] Unavailable Unavailable Susannah Blankenship [facility] Unavailable [phone] Carolyn Huynh [facility] Unavailable [phone] Vika Kevin APRN [facility] Unavailable + Marilyn Willard MD Unavailable [phone] Carie Varela DO Unavailable [phone] Maylin May NP Unavailable [phone] Marisa Hernandez RN Unavailable Unavailable Vilma Long MD Unavailable + [phone] Yasmeen Pendleton [facility] Unavailable Cole George Unavailable Fletcher Russell Unavailable Unavailable Bautista Casey MD Unavailable [phone] Jasmyn Oliver Unavailable [phone] Vika Kevin APRN [facility] Primary Care Prov ider Vika Kevin APRN [facility] Primary Care Prov ider Yasmeen Pendleton [facility] Unavailable [phone] Vika Kevin APRN AXLE BEARING POLISHER Primary Care Prov ider Encounter Details Date Type Department Care Team (Late st Contact Info) Description 12/10/2020 MyC Medical Advice [facility] [address] [facility] [address] [place] [address] [facility] [address] [place] [address] Social History Tobacco Use Types [...] file Legal Sex Female 3:22 AM PHYSICIAN PRACTICE COORDINATOR Gender Identity Not on file Sexual Orientation Not on file Occupation Industry Job Start Date Job End Date Not on file Not on file Not on file Not on file COVID-19 Exposure Response Date Recorded In the last month, have you been in contact with someone who was confirmed or suspected to have Coronavirus / COVID-19? No / Unsure 12/11/2020 3:56 PM PHYSICIAN PRACTICE COORDINATOR documented as of this encounter Plan of Treatment Not on file documented as of this encounter Visit Diagnoses Not on filedocumented in this encounter Additional Health Concerns Assessment Noted Time PHQ-9 Depression Total Score: 10 020 9:30 AM PHYSICIAN PRACTICE COORDINATOR documented as of this encounter Care Teams Nutrition Specialist Relationship Specialty Start Date End Date Julito Banuelos MD [address] [place] [address] PCP - General Family Practice 09/12/15 09/23/21 Vika Kevin APRN AXLE BEARING POLISHER [address] [place] [address] PCP - General Nurse Practitioner - Family 09/24/21 03/05/22 Vika Kevin APRN AXLE BEARING POLISHER [address] [place] [address] PCP - General Nurse Practitioner - Family 03/18/22 06/18/22 Vika Kevin, JAIME AXLE BEARING POLISHER [address] [place] [address] PCP - General Nurse Practitioner - Family 07/24/[address] [place] [address] Multimedia Teacher Dietitian, Registered 04/14/19 Susannah Blankenship, [facility] [address] [place] [address] 812 [place] [address] Pharmacist Pharmacist 08/08/19 04/15/21 Carolyn Huynh [facility] [address] [place] [address] Pharmacist Pharmacist 06/25/20 04/15/21 Vika Kevin, JAIME AXLE BEARING POLISHER [address] [place] [address] Assigned PCP 07/22/20 11/16/24 Marilyn Willard MD [address] [place] [address] [address] [place], [place] [address] Assigned Surgical Provider 08/17/20 08/16/24 Carie Varela DO [address] [place] [address] Assigned Heart and Vascular Provider 08/17/20 01/19/21 Maylin May NP [address] [place] [address] Assigned Pediatric Specialist Provider 12/16/20 06/13/22 Marisa Rodrigues, RN Clinic Slab Stripper 01/15/21 02/26/21 Vilma Long MD [address] [place] [address] Assigned Heart and Vascular Provider 01/20/21 07/20/21 [facility] [address] [place] [phone] Pharmacist Pharmacist 06/04/21 01/15/22 Cole George LISW Lead Slab Stripper 06/13/21 10/07/21 Fletcher Up Community Health Worker 06/13/21 09/12/21 Bautista Casey MD [address] [place] [address] Assigned Heart and Vascular Provider 07/21/21 01/16/23 Jasmyn Oliver CHW Community Health Worker 09/13/21 10/07/21 Yasmeen Pendleton [facility] [address] [place] [address] [id number] Assigned MTM Pharmacist 03/22/22 01/02/23 documented as of this encounter
--- OUTSIDE RECORDS SUMMARY | 2025-04-14 00:49 | XMS_ITS | Encounter Summary ---
Author Organization [place] Address [address] [facility] [place] [address] Care Team Providers Care Merchandise Team Manager Name Role Phone Carlie Wang MD Primary Care Provide r Angella Mendieta MD Primary Care Provider Julito Banuelos MD Primary Care Provider Julito Banuelos MD Unavailable Julito Banuelos MD Unavailable Aleshia Henriquez RD Unavailable Unavailable Mary Kay Jones [facility] Unavailable Unavailable Susannah Blankenship [facility] Unavailable Carolyn Huynh [facility] Unavailable Vika Kevin APRN CONSOLE ASSEMBLER Unavailable + Marilyn Willard MD Unavailable [phone] Carie Varela DO Unavailable Maylin May NP Unavailable [phone] Marisa Hernandez RN Unavailable Unavailable Vilma Long MD Unavailable Yasmeen Pendleton [facility] Unavailable Cole George Unavailable Fletcher Russell Unavailable Unavailable Ip, Bautista Bell MD Unavailable [phone] Jasmyn Oliver [facility] Unavailable [phone] Vika Kevin APRN [facility] Primary Care Prov ider Vika Kevin APRN [facility] Primary Care Prov ider Yasmeen Pendleton [facility] Unavailable + [phone] Vika Kevin APRN [facility] Primary Care Prov ider Encounter Details Date Type Department Care Team (Late st Contact Info) Description 03/10/2014 Office Visit-[facility] Heart [address] [place] [address] Jaimee Donald MD HEART [place] [id number] Social History Tobacco Use Types Packs/Day Years Used Date Smoking Tobacco: Former Cigarettes 0.3 15 0 10/26/1961 - 10/26/1976 Smokeless Tobacco: Never Alcohol Use Standard Drinks/Week Comments Yes 0 (1 standard drink = 0.6 oz pur e alcohol) 1-2 glasses of wine weekly Comments No Sex and Gender Information Value Date Recorded Sex Assigned at Not on file Legal Sex Female 3:22 AM QUANTITATIVE DEVELOPER Gender Identity Not on file Sexual Orientation Not on file Occupation Industry Job Start Date Job End Date Not on file Not on file Not on file Not on file documented as of this encounter Progress Notes * Jaimee Donald MD - 03/13/2014 3:02 PM CDT Progress Note Created by: Jaimee Donald M.D. [id number] DATE: 03/10/2014 MARIALUISA COSBY DATE OF : 1940 AGE: [age] years old Referring Physician: CARLIE WANG Referring Clinic: [facility] CURRENT DIAGNOSES 1. 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 - Hyperlipidemia mixed, 272.2 3. - Hypertension, 401.1 4. - CAD, 414.00 5. Palpitations, 785.1 ALLERGIES lisinopril Nitrofurantoin Nitrofurantoin Macrocrystal pramipexole Di-HCl Sulfasalazine tolterodine tartrate zolpidem tartrate MEDICATIONS (prior to changes made today) 1. Asmanex Twisthaler 220 mcg (120 doses) Aerosol Powdr [facility] ActivIn, Take as Directed 2. aspirin, [...] daily 10. Nasacort AQ 55 mcg Aerosol, [place], Take as Directed 11. Plavix 75 mg [...] artery disease having had a non-ST elevation [place] in [place] in December 2012with PCI to the proximal mid circumflex. Apparently the bump grader operator recommended lifelong Plavix. She has hypertension, [...] Illnesses: CAD, s/p [place] Surgeries/Procedures - General: hysterectomy, tonsillectomy Cardiac/Vasc Procedures-Invasive: left heart cath 12/2012 ([place]) Cardiology Procedures-NonInvasive: echocardiogram Jun 2007, myocardial perfusion (Nuc) Jun 2007, echo 12/2012 ([place]), stress echo February 2013 Cardiac Cath Results: 12/2012 [place] Resolute NELIA to the mid and prox [...] - lives with ; Place of - [place]; REVIEW OF SYSTEMS GENERAL feeling spacey lately [...] Out COVID-19 12/04/2020 12/04/2020 12/05/2020 6:04 PM QUANTITATIVE DEVELOPER documented as of this encounter Care Teams Merchandise Team Manager Relationship Specialty Start Date End Date Carlie Wang MD [address] [place] [address] PCP - General Pediatrics 01/30/14 07/17/15 Angella Mendieta MD [address] [place] [address] 620642 PCP - General Family Practice 07/18/15 09/11/15 Julito Banuelos MD [address] [place] [address] 45412 PCP - General Family Practice 09/12/15 09/23/21 Julito Banuelos MD [address] [place] [address] 52349 PCP - Assigned PCP 02/17/16 12/28/18 Vika Kevin APRN CONSOLE ASSEMBLER [address] [place] [address] [phone] PCP - General Nurse Practitioner - Family 09/24/21 03/05/22 Vika Kevin APRN CONSOLE ASSEMBLER [address] [place] [address] 15034 PCP - General Nurse Practitioner - Family 03/18/22 06/18/22 Vika Kevin APRN CONSOLE ASSEMBLER [address] [place] [address] 466662 PCP - General Nurse Practitioner - Family 07/24/22 Julito Banuelos MD [address] [place] [address] [phone] Assigned PCP 02/17/16 07/21/[address] [place] [address] 19801 Drop Wire Hanger Dietitian, Registered 04/14/19 Mary Kay Jones, [facility] Pharmacist 08/01/19 04/20/20 Susannah Blankenship, [facility] [address] [place] [address] [address] [place], [place] [phone] Pharmacist Pharmacist 08/08/19 04/15/21 Carolyn Huynh [facility] [address] [place], [place] 640767 Pharmacist Pharmacist 06/25/20 04/15/21 Vika Kevin APRN CONSOLE ASSEMBLER [address] [place] [address] [phone] Assigned PCP 07/22/20 11/16/24 Marilyn Willard MD [address] [address] Assigned Surgical Provider 08/17/20 08/16/24 Carie Varela DO [address] [place] [address] Assigned Heart and Vascular Provider 08/17/20 01/19/21 Maylin May, JENNY [address] [place] [address] Assigned Pediatric Specialist Provider 12/16/20 06/13/22 Marisa Rodrigues, RN Clinic Manager Of Pmo 01/15/21 02/26/21 Vilma Long MD [address] [place] [address] Assigned Heart and Vascular Provider 01/20/21 07/20/21 Yasmeen Pendleton [facility] [address] [place] [address] 357645 Pharmacist Pharmacist 06/04/21 01/15/22 Cole George LISW Lead Manager Of Pmo 06/13/21 10/07/21 Fletcher Up Community Health Worker 06/13/21 09/12/21 Bautista Casey MD [address] [place] [address] Assigned Heart and Vascular Provider 07/21/21 01/16/23 Jasmyn Oliver CHW Community Health Worker 09/13/21 10/07/21 Yasmeen Pendleton [facility] [address] [place] [address] Assigned MTM Pharmacist 03/22/22 01/02/23 documented as of this encounter
--- OUTSIDE RECORDS SUMMARY | 2025-04-14 00:49 | XMS_ITS | Encounter Summary ---
Author Organization [place] Address [address] [facility] [place] [address] Care Team Providers Care Planning Consultant Name Role Phone Andrew Lu MD Primary Care Provider [phone] Niko Resendiz MD Primary Care Provider Carlie Mac MD Primary Care Provide r Angella Mendieta MD Primary Care Provider Julito Banuelos MD Primary Care Provider [phone] Julito Banuelos MD Unavailable Julito Banuelos MD Unavailable Aleshia Henriquez RD Unavailable Unavailable Mary Kay Jones [facility] Unavailable Unavailable Susannah Balnkenship [facility] Unavailable [phone] Carolyn Huynh [facility] Unavailable [phone] Vika Kevin APRN ELECTRIC DEICER INSPECTOR Unavailable + Marilyn Willard MD Unavailable [phone] Carie Varela DO Unavailable [phone] Maylin May NP Unavailable [phone] Marisa Rodrigues RN Unavailable Unavailable Vilma Long MD Unavailable + [phone] Yasmeen Pendelton [facility] Unavailable + [phone] Cole George Unavailable Fletcher Russell Unavailable Unavailable Bautista Casey MD Unavailable DemetriusJasmyn wright [facility] Unavailable [phone] Vika [facility] Primary Care Prov ider Vika Kevin APRN [facility] Primary Care Prov ider Yasmeen Pendleton [facility] Unavailable [phone] Vika Kevin [facility] Primary Care Prov ider Reason for Visit * Reason Onset Date Comments UTI 08/24/2013 Encounter Details Date Type Department Care Team (Late st Contact Info) Description 08/24/2013 MyC Medical Advice [address] [address] Andrew Lu MD XXX RETIRED XXX [address] [place] [address] UTI Social History Tobacco Use Types [...] on file Legal Sex Female 3:22 AM PAGINATOR Gender Identity Not on file Sexual Orientation [...] Out COVID-19 12/04/2020 12/04/2020 12/05/2020 6:04 PM PAGINATOR documented as of this encounter Care Teams Planning Consultant Relationship Specialty Start Date End Date Andrew Lu MD XXX RETIRED XXX [address] [place] [address] PCP - General 12/10/01 01/10/14 Niko Resendiz MD [address] [place] [address] 41808 PCP - General Internal Medicine 01/11/14 01/29/14 Carlie Mac MD [address] [place] [address] PCP - General Pediatrics 01/30/14 07/17/15 Angella Mendieta MD [address] [place] [address] 52698 PCP - General Family Practice 07/18/15 09/11/15 Julito Banuelos MD [address] [place] [address] 04288 PCP - General Family Practice 09/12/15 09/23/21 Julito Banuelos MD [address] [place] [address]8623 PCP - Assigned PCP 02/17/16 12/28/18 Vika Kevin APRN ELECTRIC DEICER INSPECTOR [address] [place] [address]106 PCP - General Nurse Practitioner - Family 09/24/21 03/05/22 Vika Kevin APRN ELECTRIC DEICER INSPECTOR [address] [place] [address] 39072 PCP - General Nurse Practitioner - Family 03/18/22 06/18/22 Vika Kevin APRN ELECTRIC DEICER INSPECTOR [address] [place] [address] 750662 PCP - General Nurse Practitioner - Family 07/24/22 Julito Banuelos MD [address] [place] [address] [phone] Assigned PCP 02/17/16 07/21/[address] [place] [address] 47[address] Journeyman Painter Dietitian, Registered 04/14/19 Mary Kay Jones, [facility] Pharmacist 08/01/19 04/20/20 Susannah Blankenship, [facility] [address] [place] [address] [address] [place], [place] 501695 Pharmacist Pharmacist 08/08/19 04/15/21 Carolyn Huynh, [facility] [address] [place], [place] 402517 Pharmacist Pharmacist 06/25/20 04/15/21 Vika Kevin APRN ELECTRIC DEICER INSPECTOR [address] [place] [address] [phone] Assigned PCP 07/22/20 11/16/24 Marilyn Willard MD [address] [place] [address] [address] [place], [place] [id number] Assigned Surgical Provider 08/17/20 08/16/24 Carie Varela DO [address] [place] [address] Assigned Heart and Vascular Provider 08/17/20 01/19/21 Maylin May NP [address] [place] [address] Assigned Pediatric Specialist Provider 12/16/20 06/13/22 Marisa Rodrigues, RN Clinic Master Automotive Glass Technician 01/15/21 02/26/21 Vilma Long MD [address] [place] [address] Assigned Heart and Vascular Provider 01/20/21 07/20/21 Yasmeen Pendleton [facility] [address] [place] [address] [phone] Pharmacist Pharmacist 06/04/21 01/15/22 Cole George LISW Lead Master Automotive Glass Technician 06/13/21 10/07/21 Fletcher Up Community Health Worker 06/13/21 09/12/21 Bautista Casey MD [address] [place] [address] Assigned Heart and Vascular Provider 07/21/21 01/16/23 Jasmyn Oliver CHW Community Health Worker 09/13/21 10/07/21 Yasmeen Pendleton [facility] [address] [place] [address] [phone] Assigned MTM Pharmacist 03/22/22 01/02/23 documented as of this encounter
--- OUTSIDE RECORDS SUMMARY | 2025-04-14 00:49 | XMS_ITS | Encounter Summary ---
Author Organization [place] Address [address] [facility] [place] [address] Care Team Providers Care Home Health Clinical Supervisor Name Role Phone Cortez Lu MD Primary Care Provider [phone] Niko Resendiz MD Primary Care Provider Carlie Mac MD Primary Care Provide r Angella Mendieta MD Primary Care Provider Julito Banuelos MD Primary Care Provider [phone] Julito Banuelos MD Unavailable Julito Banuelos MD Unavailable Aleshia Henriquez RD Unavailable Unavailable Mary Kay Jones [facility] Unavailable Unavailable Susannah Blankenship [facility] Unavailable [phone] Carolyn Huynh [facility] Unavailable [phone] Vika Kevin APRN BRIDGE PAINTER HELPER Unavailable + Marilyn Willard MD Unavailable [phone] Carie Varela DO Unavailable [phone] Maylin May NP Unavailable [phone] Marisa Rodrigues RN Unavailable Unavailable Vilma Long MD Unavailable + [phone] Yasmeen Pendleton [facility] Unavailable + [phone] Cole George Unavailable Fletcher Russell Unavailable Unavailable Bautista MD Unavailable Jasmyn Oliver [facility] Unavailable [phone] Vika Kevin APRN [facility] Primary Care Prov ider Vika Kevin APRN [facility] Primary Care Prov ider Yasmeen Pendleton [facility] Unavailable + [phone] 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 Diabetes Chmajyfs-Lla-Mrvisfd Dependent, 250.00 2. - Hyperlipidemia mixed, 272.2 [...] daily 12. Nasacort AQ 55 mcg Aerosol, [place], Take as Directed 13. Plavix 75 mg [...] circumflex artery in December,, while at [facility] in [place], [place]. This was following a presentation for a uhc-ZM-drpxbsy elevation [place]. Since I saw the patient last she was seen in the [facility] ER with overall generalized weakness and felt to be potentially dehydrated in the setting of an infection. She has otherwise done well from a cardiovascular standpoint and has had no recurrent episodes of fatigue. She has had no recurrent anginal symptoms, which are chest discomfort and chest heaviness. Marialuisa plans to travel back to [place] for three months after the holidays. She has questions as to whether she can exercise given her coronary artery disease. Finally, I talked to Marialuisa about this previously, that her residence leasing agent in [place] had recommended that she remain on lifelong Plavix. She seems somewhat adamant about continuing this recommendation. PAST HISTORY Past Medical Illnesses: asthma, HTN, hypothyoidism, diabetes, hyperlipidemia, major depression, anxiety, hypertension, Restless Leg syndrome Past Cardiac Illnesses: CAD, s/p [place] Surgeries/Procedures - General: hysterectomy Cardiac/Vasc Procedures-Invasive: left heart cath 12/2012 ([place]) Cardiology Procedures-NonInvasive: echocardiogram Jun 2007, myocardial perfusion (Nuc) Jun 2007, echo 12/2012 ([place]), stress echo February 2013 Cardiac Cath Results: 12/2012 [place] Resolute NELIA to the mid and prox [...] - lives with and been living in [place] for 3 months; Place of - [place]; REVIEW OF SYSTEMS GENERAL frequent uti's otherwise [...] takes allergy shots, allergies get worse in [place] but they can get bad in [place] too PHYSICAL EXAMINATION VITAL SIGNS: Blood Pressure: [...] left circumflex artery following presentation for a yko-WD-rdxaqho elevation [place]. 3. Recent evaluation for fatigue and weakness, [...] Out COVID-19 12/04/2020 12/04/2020 12/05/2020 6:04 PM MIDDLE SCHOOL DIRECTOR documented as of this encounter Care Teams Home Health Clinical Supervisor Relationship Specialty Start Date End Date Cortez Lu MD XXX RETIRED XXX [address] [place] [phone] PCP - General 12/10/01 01/10/14 Niko Resendiz MD [address] [place] [address] 11943 PCP - General Internal Medicine 01/11/14 01/29/14 Carlie Mac MD [address] [place] [address] PCP - General Pediatrics 01/30/14 07/17/15 Angella Mendieta MD [address] [place] [address] [phone] PCP - General Family Practice 07/18/15 09/11/15 Julito Banuelos MD [address] [place] [address] [phone] PCP - General Family Practice 09/12/15 09/23/21 Julito Banuelos MD [address] [place] [address] [phone] PCP - Assigned PCP 02/17/16 12/28/18 Vika Kevin APRN BRIDGE PAINTER HELPER [address] [place] [address] 37175 PCP - General Nurse Practitioner - Family 09/24/21 03/05/22 Vika Kevin APRN BRIDGE PAINTER HELPER [address] [place] [address] 32684 PCP - General Nurse Practitioner - Family 03/18/22 06/18/22 Vika Kevin APRN BRIDGE PAINTER HELPER [address] [place] [address] [phone] PCP - General Nurse Practitioner - Family 07/24/22 Julito Banuelos MD [address] [place] [address] [phone] Assigned PCP 02/17/16 07/21/[address] [place] [address] 31680 Tower Dragline Operator Dietitian, Registered 04/14/19 Mary Kay Jones, [facility] Pharmacist 08/01/19 04/20/20 [facility] [address] [place] [address] [address] [place], [place] [address] Pharmacist Pharmacist 08/08/19 04/15/21 Carolyn Huynh [facility] [address] [place] [address] Pharmacist Pharmacist 06/25/20 04/15/21 Vika Kevin APRN CNP [address] [place] [address] 728132 Assigned PCP 07/22/20 11/16/24 Marilyn Willard MD [address] [place] [address] [address] [place], [place] 740075 Assigned Surgical Provider 08/17/20 08/16/24 Carie Varela DO [address] [place] [address] Assigned Heart and Vascular Provider 08/17/20 01/19/21 Maylin May NP [address] [place] [address] Assigned Pediatric Specialist Provider 12/16/20 06/13/22 Marisa Rodrigues, RN Clinic Factory Maintenance Manager 01/15/21 02/26/21 Vilma Long MD [address] [place] [address] Assigned Heart and Vascular Provider 01/20/21 07/20/21 [facility] [address] [place], [place] [address] Pharmacist Pharmacist 06/04/21 01/15/22 Cole George LISW Lead Factory Maintenance Manager 06/13/21 10/07/21 Fletcher Up Community Health Worker 06/13/21 09/12/21 Bautista Casey MD [address] [place] [address] Assigned Heart and Vascular Provider 07/21/21 01/16/23 Jasmyn Oliver CHW Community Health Worker 09/13/21 10/07/21 [facility] [address] [place] [address] Assigned MTM Pharmacist 03/22/22 01/02/23 documented as of this encounter
== END 2025-04-13 17:18 | disposition home or self-care (01) ==
LOC: NPINS 17:17
PROVIDERS: PCP Family Medicine; Visit Provider Nurse Practitioner Gerontology
DX: N39.0 Urinary tract infection, site not specified (principal)
CPT/HCPCS: 81001; 87086

== ENCOUNTER 2025-06-15 20:34 | Outpatient (CLI) | payer MEDICARE, SELFPAY | END 2025-06-15 20:35 | disposition home or self-care (01) | LOC: AMB 06-19 12:30 | PROVIDERS: PCP Family Medicine; Visit Provider Student in an Organized Health Care Education/Training Program | DX: R10.2 Pelvic and perineal pain (principal); Z46.6 Encounter for fitting and adjustment of urinary device | CPT/HCPCS: A0425; A0429 ==

== ENCOUNTER 2025-06-15 20:56 | Emergency (ER) | payer MEDICARE, SELFPAY ==
[2025-06-15 21:07] VITALS: BP 155/74; PULSE 54; RESP 18; TEMP 36.1; O2SAT 95; BMI 28.2
--- NOTE | 2025-06-15 21:13 | ED.FEMALEGU ---
HPI - Female Genitourinary General Date Seen: 06/15/25 Chief complaint: Urogenital Problems, Female Stated complaint: Cath. issues Time Seen by Provider: 06/15/25 20:58 Source: family and EMS Mode of arrival: EMS Limitations: no limitations History of Present Illness HPI Narrative: Patient is an 85-year-old female presenting to the emergency department via ambulance for needing her catheter replaced. She comes from [facility]. She has history of dementia. They replaced her Corona this morning and she pulled it out. When home health nurse came back to replace it they were unable to so called EMS to bring her here. Related Data Home Medications ?Medication ?Instructions ?Recorded ?Confirmed acetaminophen 500 mg tablet 1,000 mg PO Q6H PRN pain 06/29/22 06/15/25 (Acetaminophen Extra Strength) albuterol sulfate 90 mcg/actuation 1 puff inhalation Q4H PRN 06/29/22 06/15/25 aerosol inhaler bronchospasm aluminum-mag hydroxide-simethicone 30 ml PO PRN indigestion 06/29/22 200 mg-200 mg-20 mg/5 mL oral susp (Maalox Advanced) ascorbic acid (vitamin C) 1,000 mg 1 g PO BID 06/29/22 06/15/25 tablet aspirin 81 mg tablet,delayed 81 mg PO .QHS 06/29/22 06/15/25 release (John Low Dose Aspirin) atorvastatin 20 mg tablet 20 mg PO DAILY 06/29/22 06/15/25 bisacodyl 10 mg rectal suppository 10 mg SD PRN constipation 06/29/22 cholecalciferol (vitamin D3) 50 2,000 unit PO DAILY 06/29/22 06/15/25 mcg (2,000 unit) tablet (Vitamin D3) fluticasone 113 mcg-salmeterol 14 1 inh inhalation BID 06/29/22 06/15/25 mcg/actuation breath activated powdr fluticasone propionate 50 2 spray intranasal BID 06/29/22 06/15/25 mcg/actuation nasal spray,suspension furosemide 20 mg tablet 10 mg PO DAILY 06/29/22 06/15/25 gabapentin 100 mg capsule 200 mg PO TID 06/29/22 06/29/22 galantamine 8 mg 24 hr 8 mg PO DAILY 06/29/22 06/15/25 capsule,extended release isosorbide mononitrate 60 mg 60 mg PO DAILY 06/29/22 06/29/22 tablet,extended release 24 hr lamotrigine 150 mg tablet 300 mg PO DAILY 06/29/22 06/15/25 levothyroxine 88 mcg tablet 88 mcg PO DAILY 06/29/22 06/15/25 melatonin 3 mg tablet 3 mg PO .qhs 06/29/22 06/15/25 memantine 14 mg capsule 14 mg PO DAILY 06/29/22 06/29/22 sprinkle,extended release 24hr methenamine hippurate 1 gram tablet 1 g PO BID 06/29/22 06/15/25 nitroglycerin 0.4 mg sublingual 0.4 mg sublingual Q5M PRN 06/29/22 06/15/25 tablet polyethylene glycol 3350 17 17 g PO DAILY 06/29/22 06/15/25 gram/dose oral powder (Miralax) sennosides 8.6 mg tablet (senna) 8.6 mg PO DAILY 06/29/22 06/15/25 sertraline 100 mg tablet 100 mg PO DAILY 06/29/22 06/15/25 Previous Rx's ?Medication ?Instructions ?Recorded oseltamivir 75 mg capsule 75 mg PO BID 5 days #10 caps 12/16/24 doxycycline hyclate 100 mg capsule 100 mg PO BID #10 caps 06/15/25 Allergies Allergy/AdvReac Type Severity Reaction Status Date / Time cefdinir Allergy Verified 06/15/25 21:11 cephalexin Allergy Verified 06/15/25 21:11 nitrofurantoin Allergy Verified 06/15/25 21:11 Sulfa (Sulfonamide Allergy Verified 06/15/25 21:11 Antibiotics) Review of Systems Status of ROS: Reports: unobtainable due to medical condition (Dementia) [facility] Medical History Obesity, unspecified ?E66.9 - Obesity, unspecified (ICD-10) Gastro-esophageal reflux disease without esophagitis ?K21.9 - Gastro-esophageal reflux disease without esophagitis (ICD-10) Vitamin deficiency, unspecified ?E56.9 - Vitamin deficiency, unspecified (ICD-10) Vitamin B12 deficiency anemia, unspecified ?D51.9 - Vitamin B12 deficiency anemia, unspecified (ICD-10) Hyperlipidemia, unspecified ?E78.5 - Hyperlipidemia, unspecified (ICD-10) Hypothyroidism, unspecified ?E03.9 - Hypothyroidism, unspecified (ICD-10) Calculus of kidney ?N20.0 - Calculus of kidney (ICD-10) Calculus of gallbladder with acute cholecystitis without obstruction ?K80.00 - Calculus of gallbladder with acute cholecystitis without obstruction (ICD-10) Sensorineural hearing loss, bilateral ?H90.3 - Sensorineural hearing loss, bilateral (ICD-10) Generalized anxiety disorder ?F41.1 - Generalized anxiety disorder (ICD-10) Other idiopathic peripheral autonomic neuropathy ?G90.09 - Other idiopathic peripheral autonomic neuropathy (ICD-10) Restless legs syndrome ?G25.81 - Restless legs syndrome (ICD-10) Immunodeficiency, unspecified ?D84.9 - Immunodeficiency, unspecified (ICD-10) Essential (primary) hypertension ?I10 - Essential (primary) hypertension (ICD-10) Type 2 diabetes mellitus without complications ?E11.9 - Type 2 diabetes mellitus without complications (ICD-10) ST elevation (STEMI) myocardial infarction involving other coronary artery of anterior wall ?I21.09 - ST elevation (STEMI) myocardial infarction involving other coronary artery of anterior wall (ICD-10) Presence of other specified devices ?Z97.8 - Presence of other specified devices (ICD-10) Personal history of (healed) traumatic fracture ?Z87.81 - Personal history of (healed) traumatic fracture (ICD-10) Urinary tract infection, site not specified ?N39.0 - Urinary tract infection, site not specified (ICD-10) Repeated falls ?R29.6 - Repeated falls (ICD-10) Dementia in other diseases classified elsewhere with behavioral disturbance ?F02.81 - Dementia in other diseases classified elsewhere with behavioral disturbance (ICD-10) Pain, unspecified ?R52 - Pain, unspecified (ICD-10) Unspecified urethral stricture, female ?N35.92 - Unspecified urethral stricture, female (ICD-10) Retention of urine, unspecified ?R33.9 - Retention of urine, unspecified (ICD-10) Syncope and collapse ?R55 - Syncope and collapse (ICD-10) Traumatic subdural hemorrhage with loss of consciousness of unspecified duration, subsequent encounter ?S06.5X9D - Traumatic subdural hemorrhage with loss of consciousness of unspecified duration, subsequent encounter (ICD-10) 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, unspecified ?E08.40 - 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, unspecified (ICD-10) Edema, unspecified ?R60.9 - Edema, unspecified (ICD-10) Constipation, unspecified ?K59.00 - Constipation, unspecified (ICD-10) Other specified symptoms and signs involving the digestive system and abdomen ?R19.8 - Other specified symptoms and signs involving the digestive system and abdomen (ICD-10) Alzheimer's disease with late onset ?G30.1 - Alzheimer's disease with late onset (ICD-10) ?F02.80 - Dementia in other diseases classified elsewhere without behavioral disturbance (ICD-10) Surgical History Other specified postprocedural states ?Z98.890 - Other specified postprocedural states (ICD-10) Social History Smoking Status: Never smoker Do you use any of these nicotine containing products: None Second hand tobacco smoke exposure: No How often do you have a drink containing alcohol: never How often do you have six or more drinks on one occasion: Never AUDIT-C Alcohol total score: 0 Non-prescribed substance use: denies use service: No Exam Narrative: Exam Narrative: Const: Well-nourished, Well-developed, in no distress Eyes: PERRL, no conjunctival injection, and symmetrical lids HENT: Atraumatic external nose and ears. Moist mucous membranes. GI: Nontender/Nondistended, No rebound or guarding. MSK:Extremities w/o deformity, Normal Active ROM Skin: Warm, Dry. No rashes or lesions. Neuro: Normal Muscle tone, No focal neurological deficits. Psych: Awake, Alert Const: Vital Signs, click to edit/add: Vital Signs - 24 hr 06/15/25 21:07 Temperature 97.0 F L Pulse Rate [Left P ulse Oximeter] 54 L Respiratory Rate 18 Blood Pressure [Ri ght Upper Arm] 155/74 H Pulse Oximetry 95 Oxygen Delivery Me thod Room Air Course Vital Signs Vital signs: Initial Vital Signs Temperature 97.0 F L 06/15/25 21:07 Temperature Source Temporal Artery Scan 06/15/25 21:07 Pulse Rate 54 L 06/15/25 21:07 Respiratory Rate 18 06/15/25 21:07 Blood Pressure 155/74 H 06/15/25 21:07 Blood Pressure Mean 101 06/15/25 21:07 Blood Pressure Position Supine 06/15/25 21:07 Pulse Oximetry 95 06/15/25 21:07 Oxygen Delivery Method Room Air 06/15/25 21:07 Vital Signs Temperature 97.0 F L 06/15/25 21:07 Pulse Rate 54 L 06/15/25 21:07 Respiratory Rate 18 06/15/25 21:07 Blood Pressure 155/74 H 06/15/25 21:07 Pulse Oximetry 95 06/15/25 21:07 Oxygen Delivery Method Room Air 06/15/25 21:07 Temperature 97.0 F L 06/15/25 21:07 Pulse Rate 54 L 06/15/25 21:07 Respiratory Rate 18 06/15/25 21:07 Blood Pressure 155/74 H 06/15/25 21:07 Pulse Oximetry 95 06/15/25 21:07 Oxygen Delivery Method Room Air 06/15/25 21:07 MDM - Female Genitourinary MDM Narrative Medical decision making narrative: Patient is a 85-year-old female presenting for replacement of her Corona. Nurses were able to replace Corona. Patient did complain to nursing staff about a burning sensation. Urine was drawn from the new Corona for urinalysis. Based on notes in epic urine previous cultures here it does seem like she has a chronic UTI. Will start her on doxycycline. She is either resistant or allergic to sensitivities and previously was on doxycycline for this. Lab Data Labs: Lab Results 06/15/25 Range/Units 21:35 Urine Color Yellow (Yellow) Urine Appearance Clear (Clear) Urine pH 6.0 (5.0-8.5) Ur Specific [place] 1.020 (1.000-1.030) Urine Protein Negative (Negative) Urine Glucose (UA) Negative (Negative) Urine Ketones Negative (Negative) Urine Blood Trace-intact A (Negative) Urine Nitrite Positive A (Negative) Urine Bilirubin Negative (Negative) Urine Urobilinogen 0.2 (0.2-1.0) Ur Leukocyte Esterase 1+ A (Negative) Urine RBC 2-5 A (0-2) Urine WBC 5-10 A (0-5) Ur Squamous Epith Cells Few (None-Few) Urine Bacteria Few A (None) Discharge Plan Discharge Clinical Impression: Encounter for Corona catheter replacement Urinary tract infection Qualifiers: Urinary tract infection type: acute cystitis Hematuria presence: without hematuria Qualified Code(s): N30.00 - Acute cystitis without hematuria Patient Disposition: Home w/ Parent or Adult Condition: Stable Instructions: Urinary Tract Infection in Women (DC) Additional Instructions: Return to emergency department for new or worsening symptoms. Take the doxycycline as directed. I have read previous notes and it sounds like they have talked about having a chronic antibiotic for her UTIs. I will speak to your primary care provider and/or urologist about this. Prescriptions: New doxycycline hyclate 100 mg capsule 100 mg PO BID Qty: 10 0RF No Action oseltamivir 75 mg capsule 75 mg PO BID 5 Days Qty: 10 0RF acetaminophen [Acetaminophen Extra Strength] 500 mg tablet 1,000 mg PO Q6H PRN (Reason: pain) Patient Comments: Give 2 tablets every 6 hours for pain albuterol sulfate 90 mcg/actuation HFA aerosol inhaler 1 puff INHALATION Q4H PRN (Reason: bronchospasm) Patient Comments: 1 puff inhale by mouth every 4 hours as needed alum-mag hydroxide-simeth [Maalox Advanced] 200-200-20 mg/5 mL suspension 30 ml PO PRN (Reason: indigestion) Patient Comments: Give 30ml as needed TID aspirin [John Low Dose Aspirin] 81 mg tablet,delayed release (DR/EC) 81 mg PO .QHS Patient Comments: 1 tablet by mouth once a day atorvastatin 20 mg tablet 20 mg PO DAILY bisacodyl 10 mg suppository 10 mg SD PRN (Reason: constipation) Patient Comments: Give 1 suppository rectally as needed fluticasone propionate 50 mcg/actuation spray,suspension 2 spray INTRANASAL BID furosemide 20 mg tablet 10 mg PO DAILY gabapentin 100 mg capsule 200 mg PO TID galantamine 8 mg capsule,ext rel. pellets 24 hr 8 mg PO DAILY ascorbic acid (vitamin C) 1,000 mg tablet 1 g PO BID Patient Comments: 1 tablet by mouth twice a day cholecalciferol (vitamin D3) [Vitamin D3] 50 mcg (2,000 unit) tablet 2,000 unit PO DAILY Patient Comments: 1 tablet by mouth once a day sertraline 100 mg tablet 100 mg PO DAILY fluticasone propion-salmeterol 113-14 mcg/actuation aerosol powdr breath activated 1 inh INHALATION BID isosorbide mononitrate 60 mg tablet extended release 24 hr 60 mg PO DAILY lamotrigine 150 mg tablet 300 mg PO DAILY levothyroxine 88 mcg tablet 88 mcg PO DAILY melatonin 3 mg tablet 3 mg PO .qhs Patient Comments: 1 tablet by mouth at bedtime memantine 14 mg capsule,sprinkle,ER 24hr 14 mg PO DAILY methenamine hippurate 1 gram tablet 1 g PO BID polyethylene glycol 3350 [Miralax] 17 gram/dose powder 17 g PO DAILY Patient Comments: Mix 1 capful of Miralax in water or juice every morning. nitroglycerin 0.4 mg tablet, sublingual 0.4 mg sublingual Q5M PRN sennosides [senna] 8.6 mg tablet 8.6 mg PO DAILY Patient Comments: 1 tablet by mouth every morning Follow Up/Referrals: Haley Cortes MD [Primary Care Provider, Family Practice] Stand Alone Forms: [facility] Info Instructions
[2025-06-15 21:44] LABS: Appearance Urine Clear (Clear)
--- OUTSIDE RECORDS SUMMARY | 2025-06-15 21:58 | XMS_ITS | Encounter Summary ---
Author Organization [place] Address [address] [facility] [place] [address] Care Team Providers Care Typewriter Tester Name Role Phone Andrew Lu MD Primary Care Provider [phone] Niko Resendiz MD Primary Care Provider Carlie Mac MD Primary Care Provide r Angella Mendieta MD Primary Care Provider Julito Banuelos MD Primary Care Provider [phone] Julito Banuelos MD Unavailable Julito Banuelos MD Unavailable Aleshia Henriquez RD Unavailable Unavailable Mary Kay Jones [facility] Unavailable Unavailable Susannah Blankenship [facility] Unavailable [phone] Carolyn Huynh [facility] Unavailable [phone] Vika Kevin APRN CRIPPLE WORKER Unavailable + Marilyn Willard MD Unavailable [phone] Carie Varela DO Unavailable [phone] Maylin May NP Unavailable [phone] Marisa Rodrigues RN Unavailable Unavailable Vilma Long MD Unavailable [phone] Yasmeen Pendleton [facility] Unavailable [phone] Cole George Unavailable Fletcher Russell Unavailable Unavailable Bautista Casey MD Unavailable [phone] DemetriusJasmyn wright [facility] Unavailable [phone] Vika Kevin APRN [facility] Primary Care Prov ider Vika Kevin APRN [facility] Primary Care Prov ider Yasmeen Pendleton [facility] Unavailable [facility] Primary Care Prov ider Encounter Details Date Type Department Care Team (Late st Contact Info) Description 11/07/2012 MyC Medical Advice [address] [phone] Andrew Lu MD XXX RETIRED XXX [address] [phone] Social History Tobacco Use Types Packs/Day Years Used Date Smoking Tobacco: Former Cigarettes 0.3 15 0 10/26/1961 - 10/26/1976 Smokeless Tobacco: Never Alcohol Use Standard Drinks/Week Comments Yes 0 (1 standard drink = 0.6 oz pur e alcohol) 1-2 glasses of wine weekly Comments No Sex and Gender Information Value Date Recorded Sex Assigned at Not on file Legal Sex Female 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 Gender Identity Not on file [...] Out COVID-19 12/04/2020 12/04/2020 12/05/2020 6:04 PM SPECIALTY SALES CONSULTANT documented as of this encounter Care Teams Typewriter Tester Relationship Specialty Start Date End Date Andrew Lu MD XXX RETIRED XXX [address] [place] [phone] PCP - General 12/10/01 01/10/14 Nkio Resendiz MD [address] [place] [id number] PCP - General Internal Medicine 01/11/14 01/29/14 Carlie Mac MD [address] [place] [address] PCP - General Pediatrics 01/30/14 07/17/15 Angella Mendieta MD [address] [place] [address] PCP - General Family Practice 07/18/15 09/11/15 Julito Banuelos MD [address] [place] [phone] PCP - General Family Practice 09/12/15 09/23/21 Julito Banuelos MD [address] [place] [address] PCP - Assigned PCP 02/17/16 12/28/18 Vika Kevin APRN CRIPPLE WORKER [address] [place] [phone] PCP - General Nurse Practitioner - Family 09/24/21 03/05/22 Vika Kevin APRN [employer] WORK[employer] [address] [place] [phone] PCP - General Nurse Practitioner - Family 03/18/22 06/18/22 Vika Kevin, JAIME CRIPPLE WORKER [address] [place] [address] [phone] PCP - General Nurse Practitioner - Family 07/24/22 Julito Banuelos MD [address] [place] [address] [phone] Assigned PCP 02/17/16 07/21/[address] [place] [id number] Brake Repairer Hydraulic Dietitian, Registered 04/14/19 Mary Kay Jones, [facility] Pharmacist 08/01/19 04/20/20 Susannah Blankenship, [facility] [address] [facility] [address] [place], [place] [id number] Pharmacist Pharmacist 08/08/19 04/15/21 Carolyn Huynh, [facility] [address] [place], [place] [id number] Pharmacist Pharmacist 06/25/20 04/15/21 Vika Kevin, JAIME CRIPPLE WORKER [address] [place] [address] [phone] Assigned PCP 07/22/20 11/16/24 Marilyn Willard MD [address] [facility] [address] [place], [place] [address] Assigned Surgical Provider 08/17/20 08/16/24 Carie Varela DO [address] [place] [address] Assigned Heart and Vascular Provider 08/17/20 01/19/21 Maylin May NP [address] [place] [address] Assigned Pediatric Specialist Provider 12/16/20 06/13/22 Marisa Rodrigues, RN Clinic Peanut Grader 01/15/21 02/26/21 Vilma Long MD [address] [place] [address] Assigned Heart and Vascular Provider 01/20/21 07/20/21 Yasmeen Pendleton [facility] [address] [place] [id number] Pharmacist Pharmacist 06/04/21 01/15/22 Cole George LISW Lead Peanut Grader 06/13/21 10/07/21 Fletcher Up Community Health Worker 06/13/21 09/12/21 Bautista Casey MD [address] [place] [address] Assigned Heart and Vascular Provider 07/21/21 01/16/23 Jasmyn Oliver CHW Community Health Worker 09/13/21 10/07/21 Yasmeen Pendleton [facility] [address] [place] [id number] Assigned MTM Pharmacist 03/22/22 01/02/23 documented as of this encounter
--- OUTSIDE RECORDS SUMMARY | 2025-06-15 21:58 | XMS_ITS | Encounter Summary ---
Author Organization [facility] Address [address] [facility] [place] [address] Care Team Providers Care Maternal Child Nurse Name Role Phone Andrew Lu MD Primary Care Provider [phone] Niko Resendiz MD Primary Care Provider Carlie Mac MD Primary Care Provide r Angella Mendieta MD Primary Care Provider Julito Banuelos MD Primary Care Provider [phone] Julito Banuelos MD Unavailable Julito Banuelos MD Unavailable Aleshia Henriquez RD Unavailable Unavailable Mary Kay Jones [facility] Unavailable Unavailable Susannah Blankenship [facility] Unavailable [phone] Carolyn Huynh [facility] Unavailable [phone] Vika Kevin APRN LABORATORY EQUIPMENT CLEANER Unavailable + Marilyn Willard MD Unavailable [phone] Carie Varela DO Unavailable [phone] Maylin May NP Unavailable [phone] Marisa Rodrigues RN Unavailable Unavailable Vilma Long MD Unavailable + [phone] Yasmeen Pendleton [facility] Unavailable + [phone] Cole George Unavailable Fletcher Russell Unavailable Unavailable Bautista Casey MD Unavailable [phone] Jasmyn Oliver [facility] Unavailable [phone] Vika Kevin APRN [facility] Primary Care Prov ider Vika Kevin APRN [facility] Primary Care Prov ider Yasmeen Pendleton [facility] Unavailable [phone] Vika Kevin APRN [facility] Primary Care Prov ider Reason for Referral * Referral not Required - Closed Specialty Diagnoses / Procedures Referred By Contkateryna t Referred To Contact Diagnoses CAD (coronary artery disease) Andrew Lu MD XXX RETIRED XXX [address] [place] [phone] Phone: tel: fax: [facility] [address] [facility] [address] [place] [address] Phone: tel: fax: Referral ID Status Reason Start Date Expiration Date Visits Re quested Visits Authorized [id number] Closed 01/11/2013 07/10/2013 1 1 Comments Your provider has referred you to: [facility]: [facility] Heart Karen [phone] Please be aware that coverage of these [...] where they were done to arrange for mushroom picker prior to your scheduled appointment. Any new CT, MRI or other procedures ordered by your specialist must be performed at a [facility] facility or coordinated by your clinic's referral office. 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 Gender Identity Not on file Sexual [...] Coronary atherosclerosis of unspecified type of vessel, sh[place]paiute or graft documented in this encounter Additional Health Concerns Infection Onset Date Last Indicated Resolved Time Rule Out COVID-19 07/25/2020 07/25/2020 07/26/2020 3:02 PM CDT Rule Out COVID-19 12/04/2020 12/04/2020 12/05/2020 6:04 PM VETERANS EMPLOYMENT REPRESENTATIVE documented as of this encounter Care Teams Maternal Child Nurse Relationship Specialty Start Date End Date Andrew Lu MD XXX RETIRED XXX [address] [place] [phone] PCP - General 12/10/01 01/10/14 Niko Resendiz MD [address] [address] PCP - General Internal Medicine 01/11/14 01/29/14 Carlie Mac MD [address] [place] [address] PCP - General Pediatrics 01/30/14 07/17/15 Angella Mendieta MD [address] [place] [address] PCP - General Family Practice 07/18/15 09/11/15 Julito Banuelos MD [address] [place] [address] PCP - General Family Practice 09/12/15 09/23/21 Julito Banuelos MD [address] [place] [address] PCP - Assigned PCP 02/17/16 12/28/18 Vika Kevin APRN LABORATORY EQUIPMENT CLEANER [address] [place] [address] PCP - General Nurse Practitioner - Family 09/24/21 03/05/22 Vika Kevin APRN LABORATORY EQUIPMENT CLEANER [address] [place] [address] PCP - General Nurse Practitioner - Family 03/18/22 06/18/22 Vika Kevin APRN LABORATORY EQUIPMENT CLEANER [address] [place] [address] 918122 PCP - General Nurse Practitioner - Family 07/24/22 Julito Banuelos MD [address] [place] [address] 512782 Assigned PCP 02/17/16 07/21/20 Aleshia Henriquez, DAVE [address] [place] [address] Lending Advisor Dietitian, Registered 04/14/19 Mary Kay Jones, [facility] Pharmacist 08/01/19 04/20/20 Susannah Blankenship, [facility] [address] [place] [address] 8[address] [place], [place] 4824[address] Pharmacist Pharmacist 08/08/19 04/15/21 [facility] [address] [place], [place] [address] Pharmacist Pharmacist 06/25/20 04/15/21 Vika Kevin APRN LABORATORY EQUIPMENT CLEANER [address] [place] [address] 807822 Assigned PCP 07/22/20 11/16/24 Marilyn Willard MD [address] [place] [address] [address] [place], [place] 428395 Assigned Surgical Provider 08/17/20 08/16/24 Carie Varela DO [address] [place], [place] [address] Assigned Heart and Vascular Provider 08/17/20 01/19/21 Maylin May NP [address] [place] [address] Assigned Pediatric Specialist Provider 12/16/20 06/13/22 Marisa Rodrigues, RN Clinic Market Risk Specialist 01/15/21 02/26/21 Vilma Long MD [address] [place] [address] Assigned Heart and Vascular Provider 01/20/21 07/20/21 Yasmeen Pendleton [facility] [address] [place] [address] Pharmacist Pharmacist 06/04/21 01/15/22 Cole George LISW Lead Market Risk Specialist 06/13/21 10/07/21 Fletcher Up Community Health Worker 06/13/21 09/12/21 Bautista Casye MD [address] [place] [address] Assigned Heart and Vascular Provider 07/21/21 01/16/23 Jasmyn Oliver CHW Community Health Worker 09/13/21 10/07/21 Yasmeen Pendleton [facility] [address] [place], [place] 83[address] Assigned MTM Pharmacist 03/22/22 01/02/23 documented as of this encounter
--- OUTSIDE RECORDS SUMMARY | 2025-06-15 21:58 | XMS_ITS | Encounter Summary ---
Author Organization [facility] [place] Address [address] [facility] [place] [address] Care Team Providers Care Behavioral Pediatrician Name Role Phone Julito Banuelos MD Primary Care Provider [phone] Julito Banuelos MD Unavailable Aleshia Henriquez RD Unavailable Unavailable Mary Kay Jones [facility] Unavailable Unavailable Susannah Blankenship [facility] Unavailable Carolyn Huynh [facility] Unavailable [phone] Vika Kevin APRN EMPLOYMENT SUPERVISOR Unavailable + Marilyn Willard MD Unavailable Carie Varela DO Unavailable [phone] Maylin May NP Unavailable [phone] Marisa Hernandez RN Unavailable Unavailable Vilma Long MD Unavailable Yasmeen Pendleton [facility] Unavailable Cole George Unavailable Fletcher Russell Unavailable Unavailable Bautista Casey MD Unavailable Jasmyn Oliver [facility] Unavailable [phone] Vika Kevin APRN EMPLOYMENT SUPERVISOR Primary Care Prov ider Vika Kevin APRN, CNP Primary Care Prov ider Yasmeen Pendleton [facility] Unavailable [phone] Vika Kevin APRN EMPLOYMENT SUPERVISOR Primary Care Prov ider Encounter Details Date Type Department Care Team (Late st Contact Info) Description 08/01/2019 MyC Medical Advice [address] [place] [phone] Mary Kay Jones, [facility] Social History Tobacco Use Types [...] Legal 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 Gender Identity Not on file Sexual [...] 12/04/2020 12/04/2020 12/05/2020 6:04 PM MARKETING DATABASE ANALYST Assessment Noted Time PHQ-9 Depression Total Score: 8 07/18/20 19 12:06 PM CDT documented as of this encounter Care Teams Behavioral Pediatrician Relationship Specialty Start Date End Date Julito Banuelos MD [address] [place] [address] PCP - General Family Practice 09/12/15 09/23/21 Vika Kevin APRN [facility] [address] [place] [address] PCP - General Nurse Practitioner - Family 09/24/21 03/05/22 Vika Kevin APRN EMPLOYMENT SUPERVISOR [address] [place] [address] PCP - General Nurse Practitioner - Family 03/18/22 06/18/22 Vika Kevin APRN EMPLOYMENT SUPERVISOR [address] [place] [address] [phone] PCP - General Nurse Practitioner - Family 07/24/22 Julito Banuelos MD [address] [place] [address] 676262 Assigned PCP 02/17/16 07/21/[address] [place] [address] Paperhanger Apprentice Dietitian, Registered 04/14/19 Mary Kay Jones, [facility] Pharmacist 08/01/19 04/20/20 Susannah Blankenship, [facility] [address] [place] [address] 812 [place] [address] Pharmacist Pharmacist 08/08/19 04/15/21 Carolyn Huynh [facility] [address] [place], [place] [address] Pharmacist Pharmacist 06/25/20 04/15/21 Vika Kevin APRN EMPLOYMENT SUPERVISOR [address] [place] [address] Assigned PCP 07/22/20 11/16/24 Marilyn Willard MD [address] [facility] [address] [place] [address] Assigned Surgical Provider 08/17/20 08/16/24 Carie Varela DO [address] [place] [address] Assigned Heart and Vascular Provider 08/17/20 01/19/21 Maylin May, JENNY [address] [place], [place] [address] Assigned Pediatric Specialist Provider 12/16/20 06/13/22 Marisa Rodrigues RN Clinic Rent Control Office Manager 01/15/21 02/26/21 Vilma Long MD [address] [place] [address] Assigned Heart and Vascular Provider 01/20/21 07/20/21 Yasmeen Pendleton [facility] [address] [place] [address] Pharmacist Pharmacist 06/04/21 01/15/22 Cole George LISW Lead Rent Control Office Manager 06/13/21 10/07/21 Fletcher Up Community Health Worker 06/13/21 09/12/21 Bautista Casey MD [address] [place] [address] Assigned Heart and Vascular Provider 07/21/21 01/16/23 Jasmyn Oliver CHW Community Health Worker 09/13/21 10/07/21 Yasmeen Pendleton [facility] [address] [place] [address] Assigned MTM Pharmacist 03/22/22 01/02/23 documented as of this encounter
--- OUTSIDE RECORDS SUMMARY | 2025-06-15 21:58 | XMS_ITS | Encounter Summary ---
Author Organization [facility] Address [address] [facility] [place] [address] Care Team Providers Care Zinc Plate Grainer Name Role Phone Julito Banuelos MD Primary Care Provider [phone] Julito Banuelos MD Unavailable Aleshia Henriquez RD Unavailable Unavailable Mary Kay Jones [facility] Unavailable Unavailable Susannah Blankenship [facility] Unavailable Carolyn Huynh [facility] Unavailable [phone] Vika Kevin APRN VETERINARY SCIENCE TEACHER Unavailable + Marilyn Willard MD Unavailable [phone] Carie Varela DO Unavailable [phone] Maylin May NP Unavailable [phone] Marisa Hernandez RN Unavailable Unavailable Vilma Long MD Unavailable Yasmeen Pendleton [facility] Unavailable Cole George Unavailable Fletcher Russell Unavailable Unavailable Bautista Casey MD Unavailable Jasmyn Oliver [facility] Unavailable [phone] Vika Kevin APRN VETERINARY SCIENCE TEACHER Primary Care Prov ider Vika Kevin APRN [facility] Primary Care Prov ider Yasmeen Pendleton [facility] Unavailable [phone] Vika Kevin APRN [facility] Primary Care Prov ider Reason for Visit * Reason Onset Date Comments Refill Request 09/22/2019 Encounter Details Date Type Department Care Team (Late st Contact Info) Description 09/22/2019 MyC Refill [facility] [address] [facility] [address] [place] [phone] Carie Varela DO [address] [place], [place] [address] Refill Request Social History Tobacco Use Types [...] on file Legal Sex Female 3:22 AM IMMIGRATION PARALEGAL Gender Identity Not on file Sexual Orientation Not on file Occupation Industry Job Start Date Job End Date Not on file Not on file Not on file Not on file documented as of this encounter Plan of Treatment Not on file documented as of this encounter Visit Diagnoses Diagnosis Hypertension goal BP (blood pressure) < 140/90 Unspecified essential hypertension Coronary artery disease involving sel[place]ik coronary artery of sel[place]ik heart without angina pectoris documented in this encounter Additional Health Concerns Infection Onset Date Last Indicated Resolved Time Rule Out COVID-19 07/25/2020 07/25/2020 07/26/2020 3:02 PM CDT Rule Out COVID-19 12/04/2020 12/04/2020 12/05/2020 6:04 PM IMMIGRATION PARALEGAL Assessment Noted Time PHQ-9 Depression Total Score: 8 07/18/20 19 12:06 PM CDT documented as of this encounter Care Teams Zinc Plate Grainer Relationship Specialty Start Date End Date Julito Banuelos MD [address] [place] [address] PCP - General Family Practice 09/12/15 09/23/21 Vika Kevin APRN VETERINARY SCIENCE TEACHER [address] [place] [address] [phone] PCP - General Nurse Practitioner - Family 09/24/21 03/05/22 Vika Kevin APRN VETERINARY SCIENCE TEACHER [address] [place] [address] 999172 PCP - General Nurse Practitioner - Family 03/18/22 06/18/22 Vika Kevin APRN VETERINARY SCIENCE TEACHER [address] [place] [address] 090642 PCP - General Nurse Practitioner - Family 07/24/22 Julito Banuelos MD [address] [place] [address] 529112 Assigned PCP 02/17/16 07/21/[address] [place] [address] Supervisor Sawing And Assembly Dietitian, Registered 04/14/19 Mary Kay Jones [facility] Pharmacist 08/01/19 04/20/20 Suasnnah Blankenship [facility] [address] [place] [address] 812 [place], [place] [address] Pharmacist Pharmacist 08/08/19 04/15/21 Carolyn Huynh [facility] [address] [place], [place] [address] Pharmacist Pharmacist 06/25/20 04/15/21 KevinVikalotte, STAKING ENGINEER VETERINARY SCIENCE TEACHER [address] [place], [place] 330612 Assigned PCP 07/22/20 11/16/24 Marilyn Willard MD [address] [facility] [address] [place], [place] 9[address]415 Assigned Surgical Provider 08/17/20 08/16/24 Carie Varela DO [address] [place] [address] Assigned Heart and Vascular Provider 08/17/20 01/19/21 Maylin May NP [address] [place], [place] 02209116 Assigned Pediatric Specialist Provider 12/16/20 06/13/22 Marisa Rodrigues, RN Clinic Mandrel Puller 01/15/21 02/26/21 Vilma Long MD [address] [place] [address] Assigned Heart and Vascular Provider 01/20/21 07/20/21 Yasmeen Pendleton [facility] [address] [place] [address] Pharmacist Pharmacist 06/04/21 01/15/22 Cole George LISW Lead Mandrel Puller 06/13/21 10/07/21 Fletcher Up Community Health Worker 06/13/21 09/12/21 Bautista Casey MD [address] [place] [address] Assigned Heart and Vascular Provider 07/21/21 01/16/23 Jasmyn Oliver CHW Community Health Worker 09/13/21 10/07/21 Yasmeen Pendleton [facility] 9 [place] [address] Assigned MTM Pharmacist 03/22/22 01/02/23 documented as of this encounter
--- OUTSIDE RECORDS SUMMARY | 2025-06-15 21:58 | XMS_ITS | Encounter Summary ---
Author Organization [place] Address [address] [facility] [place] [address] Care Team Providers Care Ct Scan Technician Name Role Phone Andrew Lu MD Primary Care Provider [phone] Niko Resendiz MD Primary Care Provider Carlie Mac MD Primary Care Provide r Angella Mendieta MD Primary Care Provider Julito Banuelos MD Primary Care Provider [phone] Julito Banuelos MD Unavailable Julito Banuelos MD Unavailable Aleshia Henriquez RD Unavailable Unavailable Mary Kay Jones [facility] Unavailable Unavailable Susannah Blankenship [facility] Unavailable [phone] Carolyn Huynh [facility] Unavailable [phone] Vika Kevin APRN COLLISION TECHNICIAN Unavailable + Marilyn Willard MD Unavailable [phone] Carie Varela DO Unavailable [phone] Maylin May NP Unavailable [phone] Marisa Rodrigues RN Unavailable Unavailable Vilma Long MD Unavailable + [phone] Yasmeen Pendleton [facility] Unavailable + [phone] Cole George Unavailable Fletcher Russell Unavailable Unavailable Bautista Casey MD Unavailable DemetriusJasmyn wright [facility] Unavailable [phone] Vika Kevin APRN [facility] Primary Care Prov ider Vika Kevin APRN [facility] Primary Care Prov ider Yasmeen Pendleton [facility] Unavailable + [phone] Vika Kevin APRN [facility] Primary Care Prov ider Encounter Details Date Type Department Care Team (Late st Contact Info) Description 09/28/[address] [phone] [facility] [place] Social History Tobacco Use Types Packs/Day Years [...] file Legal Sex Female 3:22 AM DIRECTOR SEARCH MARKETING STRATEGIES Gender Identity Not on file Sexual Orientation [...] COVID-19 12/04/2020 12/04/2020 12/05/2020 6:04 PM DIRECTOR SEARCH MARKETING STRATEGIES documented as of this encounter Care Teams Ct Scan Technician Relationship Specialty Start Date End Date Andrew Lu MD XXX RETIRED XXX [address] [place] [phone] PCP - General 12/10/01 01/10/14 Niko Resendiz MD [address] [place] [address] PCP - General Internal Medicine 01/11/14 01/29/14 Carlie Mac MD [address] [place] [address] PCP - General Pediatrics 01/30/14 07/17/15 Angella Mendieta MD [address] [place] [address] PCP - General Family Practice 07/18/15 09/11/15 Julito Banuelos MD [address] [place] [address] PCP - General Family Practice 09/12/15 09/23/21 Julito Banuelos MD [address] [place] [address] PCP - Assigned PCP 02/17/16 12/28/18 Vika Kevin APRN COLLISION TECHNICIAN [address] [place] [address] 13282 PCP - General Nurse Practitioner - Family 09/24/21 03/05/22 Vika Kevin APRN COLLISION TECHNICIAN [address] [place] [address] PCP - General Nurse Practitioner - Family 03/18/22 06/18/22 Vika Kevin APRN COLLISION TECHNICIAN [address] [place] [address] 735162 PCP - General Nurse Practitioner - Family 07/24/22 Julito Banuelos MD [address] [place] [address] 895322 Assigned PCP 02/17/16 07/21/[address] [place] [address] X Ray Physician Dietitian, Registered 04/14/19 Mary Kay Jones, [facility] Pharmacist 08/01/19 04/20/20 [facility] [address] [place] [address] 812 [place], [place] [address] Pharmacist Pharmacist 08/08/19 04/15/21 [facility] [address] [place], [place] [address] Pharmacist Pharmacist 06/25/20 04/15/21 Vika Kevin APRN COLLISION TECHNICIAN [address] [place] [address] 417062 Assigned PCP 07/22/20 11/16/24 Marilyn Willard MD [address] [place] [address] [address] [place] [address] Assigned Surgical Provider 08/17/20 08/16/24 Carie Varela DO [address] [place], [place] [address] Assigned Heart and Vascular Provider 08/17/20 01/19/21 Maylin May NP [address] [place] 623[address] Assigned Pediatric Specialist Provider 12/16/20 06/13/22 Marisa Rodrigues, RN Clinic Die Cutter Apprentice 01/15/21 02/26/21 Vilma Long MD [address] [place] [address] Assigned Heart and Vascular Provider 01/20/21 07/20/21 [facility] [address] [place] [address] Pharmacist Pharmacist 06/04/21 01/15/22 Cole George LISW Lead Die Cutter Apprentice 06/13/21 10/07/21 Fletcher Up Community Health Worker 06/13/21 09/12/21 Bautista Casey MD [address] [place] [address] Assigned Heart and Vascular Provider 07/21/21 01/16/23 Jasmyn Oliver CHW Community Health Worker 09/13/21 10/07/21 [facility] [address] [place] [address] 702625 Assigned MTM Pharmacist 03/22/22 01/02/23 documented as of this encounter
--- OUTSIDE RECORDS SUMMARY | 2025-06-15 21:58 | XMS_ITS | Encounter Summary ---
Author Organization [place] Address [address] [facility] [place] [address] Care Team Providers Care Superintendent Renting Managing Name Role Phone Julito Banuelos MD Primary Care Provider [phone] Julito Banuelos MD Unavailable Aleshia Henriquez RD Unavailable Unavailable Mary Kay Jones [facility] Unavailable Unavailable Susannah Blankenship [facility] Unavailable Carolyn Huynh [facility] Unavailable [phone] Vika Kevin APRN FREELANCE COPYWRITER Unavailable + Marilyn Willard MD Unavailable Carie Varela DO Unavailable [phone] Maylin May NP Unavailable [phone] Marisa Hernandez RN Unavailable Unavailable Vilma Long MD Unavailable Yasmeen Pendleton [facility] Unavailable Cole George Unavailable Fletcher Russell Unavailable Unavailable Bautista Casey MD Unavailable Jasmyn Oliver CHW Unavailable [phone] Vika Kevin APRN FREELANCE COPYWRITER Primary Care Prov ider Vika Kevin APRN [facility] Primary Care Prov ider Yasmeen Pendleton [facility] Unavailable [phone] Vika Kevin APRN [facility] Primary Care Prov ider Reason for Visit * Reason Onset Date Comments Refill Request 09/11/2019 Encounter Details Date Type Department Care Team (Late st Contact Info) Description 09/11/2019 MyC Refill [address] [place] [address] Julito Banuelos MD [address] [place] [address] Refill Request Social History Tobacco [...] on file Legal Sex Female 3:22 AM MIXER RUNNER Gender Identity Not on file Sexual Orientation Not on file Occupation Industry Job Start Date Job End Date Not on file Not on file Not on file Not on file documented as of this encounter Miscellaneous Notes * Telephone Encounter - Shanelle Corona RN - 09/13/2019 11:06 AM MIXER RUNNER This was discontinued due to side effects. Sent mychart to patient asking if she is still taking. Ruth Muñoz RN [facility] [phone] R RUNNER * Telephone Encounter - Sandra Jesús - 09/12/2019 9:28 AM CST Requested Prescriptions Pending Prescriptions Disp Refills ??? donepezil (ARICEPT) 5 MG tablet Last Written Prescription Date: 08.08.19 Last Fill Quantity: 30 tablet, # refills: 3 Last office visit: 08/08/2019 with prescribing provider: Julito Banuelos MD Future Office Visit: Next 5 appointments (look out 90 days) Sep 12, 2019 2:00 PM MIXER RUNNER SHORT with Susannah Blankenship [facility] ([facility]) [address] [facility] [phone] Sep 23, 2019 10:50 AM MIXER RUNNER Office Visit with Julito Banuelos MD [facility] [address] [place] [address] [phone] 30 tablet 3 Sig: Take 1 tablet [...] is 18 years of age or older R RUNNER documented in this encounter Plan of Treatment Not on file documented as of this encounter Visit Diagnoses Diagnosis 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) documented in this encounter Additional Health Concerns Infection Onset Date Last Indicated Resolved Time Rule Out COVID-19 07/25/2020 07/25/2020 07/26/2020 3:02 PM CDT Rule Out COVID-19 12/04/2020 12/04/2020 12/05/2020 6:04 PM MIXER RUNNER Assessment Noted Time PHQ-9 Depression Total Score: 8 07/18/20 19 12:06 PM CDT documented as of this encounter Care Teams Superintendent Renting Managing Relationship Specialty Start Date End Date Julito Banuelos MD [address] [place] [address] [phone] PCP - General Family Practice 09/12/15 09/23/21 Vika Kevin APRN FREELANCE COPYWRITER [address] [place] [address] [phone] PCP - General Nurse Practitioner - Family 09/24/21 03/05/22 Vika Kevin APRN FREELANCE COPYWRITER [address] [place] [phone] PCP - General Nurse Practitioner - Family 03/18/22 06/18/22 Vika Kevin APRN FREELANCE COPYWRITER [address] [place] [address] [phone] PCP - General Nurse Practitioner - Family 07/24/22 Julito Banuelos MD [address] [place] [address] [phone] Assigned PCP 02/17/16 07/21/[address] [place] [phone] Asset Protection Lead Dietitian, Registered 04/14/19 Mary Kay Jones, [facility] Pharmacist 08/01/19 04/20/20 Susannah Blankenship, [facility] [address] [place] [address] [address] [place] [address] Pharmacist Pharmacist 08/08/19 04/15/21 Carolyn Huynh [facility] [address] [place] [address] Pharmacist Pharmacist 06/25/20 04/15/21 Vika Kevin APRN FREELANCE COPYWRITER [address] [place] [address] Assigned PCP 07/22/20 11/16/24 Marilyn Willard MD [address] [facility] [address] [place] [address] Assigned Surgical Provider 08/17/20 08/16/24 Carie Varela DO [address] [place] [address] Assigned Heart and Vascular Provider 08/17/20 01/19/21 Maylin May NP [address] [place] [address] Assigned Pediatric Specialist Provider 12/16/20 06/13/22 Marisa Rodrigues, RN Clinic Tire Duster 01/15/21 02/26/21 Vilma Long MD [address] [place] [address] Assigned Heart and Vascular Provider 01/20/21 07/20/21 Yasmeen Pendleton [facility] [address] [place] [address] Pharmacist Pharmacist 06/04/21 01/15/22 Cole George LISW Lead Tire Duster 06/13/21 10/07/21 Fletcher Up Community Health Worker 06/13/21 09/12/21 Bautista Casey MD [address] [place] [address] Assigned Heart and Vascular Provider 07/21/21 01/16/23 Jasmyn Oliver CHW Community Health Worker 09/13/21 10/07/21 Yasmeen Pendleton [facility] [address] [place] [address] Assigned MTM Pharmacist 03/22/22 01/02/23 documented as of this encounter
--- OUTSIDE RECORDS SUMMARY | 2025-06-15 21:58 | XMS_ITS | Encounter Summary ---
Author Organization [place] Address [address] [facility] [place] [address] Care Team Providers Care Folding Rules Printing Machine Operator Name Role Phone Julito Banuelos MD Primary Care Provider [phone] Julito Banuelos MD Unavailable Aleshia Henriquez RD Unavailable Unavailable Mary Kay Jones [facility] Unavailable Unavailable Susannah Blankenship [facility] Unavailable [phone] Carolyn Huynh [facility] Unavailable [phone] Vika Kevin APRN INSPECTOR PRODUCTION PLASTIC PARTS Unavailable + Marilyn Willard MD Unavailable Carie Varela DO Unavailable [phone] Maylin May NP Unavailable [phone] Marisa Hernandez RN Unavailable Unavailable Vilma Long MD Unavailable Yasmeen Pendleton [facility] Unavailable [phone] Cole George Unavailable Fletcher Russell Unavailable Unavailable Bautista Casey MD Unavailable [phone] Jasmyn Oliver CHW Unavailable [phone] Vika Kevin APRN INSPECTOR PRODUCTION PLASTIC [employer]S Primary Care Prov ider Vika Kevin APRN [facility] Primary Care Prov ider Yasmeen Pendleton [facility] Unavailable [phone] Vika Kevin APRN [facility] Primary Care Prov ider Reason for Visit * Reason Comments Medication Refill Encounter Details Date Type Department Care Team (Late st Contact Info) Description 09/07/[address] [phone] [place] [address] [place] [address] [phone] Medication Refill Social History Tobacco Use Types [...] on file Legal Sex Female 3:22 AM INSTRUMENTAL TEACHER Gender Identity Not on file Sexual Orientation Not on file Occupation Industry Job Start Date Job End Date Not on file Not on file Not on file Not on file documented as of this encounter Miscellaneous Notes * Telephone Encounter - Panda Bradshaw RN - 09/09/2019 12:44 PM INSTRUMENTAL TEACHER Prescription approved per [facility] Refill Protocol. Panda Bradshaw RN [facility] RUMENTAL TEACHER * Telephone Encounter - Jesús Flores - [...] 90 days) Sep 12, 2019 2:00 PM INSTRUMENTAL TEACHER SHORT with Susannah Blankenship [facility] ([facility]) [address] [facility] [address] [facility] [phone] Sep 23, 2019 10:50 AM INSTRUMENTAL TEACHER Office Visit with Julito Banuelos MD [facility] [address] [place] [address] [phone] 48 g 3 Sig: SPRAY TWO SPRAYS [...] & Orders section of the refill encounter. RUMENTAL TEACHER documented in this encounter Plan of Treatment Not on file documented as of this encounter Visit Diagnoses Diagnosis Environmental allergies Allergic rhinitis, cause unspecified documented in this encounter Additional Health Concerns Infection Onset Date Last Indicated Resolved Time Rule Out COVID-19 07/25/2020 07/25/2020 07/26/2020 3:02 PM CDT Rule Out COVID-19 12/04/2020 12/04/2020 12/05/2020 6:04 PM INSTRUMENTAL TEACHER Assessment Noted Time PHQ-9 Depression Total Score: 8 07/18/20 19 12:06 PM CDT documented as of this encounter Care Teams Folding Rules Printing Machine Operator Relationship Specialty Start Date End Date Julito Banuelos MD [address] [place] [address] [phone] PCP - General Family Practice 09/12/15 09/23/21 Vika Kevin APRN INSPECTOR PRODUCTION PLASTIC PARTS [address] [place] [address] [phone] PCP - General Nurse Practitioner - Family 09/24/21 03/05/22 Vika Kevin APRN INSPECT[employer] [address] [place] [address] [phone] PCP - General Nurse Practitioner - Family 03/18/22 06/18/22 Vika Kevin APRN INSPECTOR [employer] [address] [place] [address] [phone] PCP - General Nurse Practitioner - Family 07/24/22 Julito Banuelos MD [address] [place] [address] [phone] Assigned PCP 02/17/16 07/21/[address] [place] [address] Production Trainer Dietitian, Registered 04/14/19 Mary Kay Jones [facility] Pharmacist 08/01/19 04/20/20 Susannah Blankenship, [facility] [address] [place] [address] [address] [place] [address] Pharmacist Pharmacist 08/08/19 04/15/21 Carolyn Huynh [facility] [address] Pharmacist Pharmacist 06/25/20 04/15/21 Vika Kevin APRN INSPECTOR PR[employer] [address] [place] [address] Assigned PCP 07/22/20 11/16/24 Marilyn Willard MD [address] [place] [phone] Assigned Surgical Provider 08/17/20 08/16/24 Carie Varela DO [address] [place] [address] Assigned Heart and Vascular Provider 08/17/20 01/19/21 Maylin May NP [address] [place] [address] Assigned Pediatric Specialist Provider 12/16/20 06/13/22 Marisa Rodrigues, RN Clinic Senior Shipping Clerk 01/15/21 02/26/21 Vilma Long MD [address] [place] [address] Assigned Heart and Vascular Provider 01/20/21 07/20/21 Yasmeen Pendleton [facility] [address] [place] [address] Pharmacist Pharmacist 06/04/21 01/15/22 Cole George LISW Lead Senior Shipping Clerk 06/13/21 10/07/21 Fletcher Up Community Health Worker 06/13/21 09/12/21 Bautista Casey MD [address] [place] [address] Assigned Heart and Vascular Provider 07/21/21 01/16/23 Jasmyn Oliver CHW Community Health Worker 09/13/21 10/07/21 Yasmeen Pendleton [facility] [address] [place] [address] Assigned MTM Pharmacist 03/22/22 01/02/23 documented as of this encounter
--- OUTSIDE RECORDS SUMMARY | 2025-06-15 21:58 | XMS_ITS | Encounter Summary ---
Author Organization [place] Address [address] [place] [address] Care Team Providers Care Tarper Name Role Phone Julito Banuelos MD Primary Care Provider [phone] Julito Banuelos MD Unavailable Aleshia Henriquez RD Unavailable Unavailable Mary Kay Jones [facility] Unavailable Unavailable Susannah Blankenship [facility] Unavailable Carolyn Huynh [facility] Unavailable [phone] Vika Kevin APRN ARCHITECTURAL ENGINEERING TEACHER Unavailable + Marilyn Willard MD Unavailable Carie Varela DO Unavailable [phone] Maylin May NP Unavailable [phone] Marisa Hernandez RN Unavailable Unavailable Vilma Long MD Unavailable Yasmeen Pendleton [facility] Unavailable Cole George Unavailable Fletcher Russell Unavailable Unavailable Bautista Casey MD Unavailable Jasmyn Oliver CHW Unavailable [phone] Vika Kevin APRN ARCHITECTURAL ENGINEERING TEACHER Primary Care Prov ider Vika Kevin APRN [facility] Primary Care Prov ider Yasmeen Pendleton [facility] Unavailable [phone] Vika Kevin APRN [facility] Primary Care Prov ider Reason for Visit * Reason Onset Date Comments Refill Request 09/12/2019 Encounter Details Date Type Department Care Team (Late st Contact Info) Description 09/12/[address] [facility] [address] [facility] [address] [place] [phone] Carie Varela DO [address] [place], [place] 925155 Refill Request Social History Tobacco Use Types [...] on file Legal Sex Female 3:22 AM BACK ROLLER Gender Identity Not on file Sexual Orientation Not on file Occupation Industry Job Start Date Job End Date Not on file Not on file Not on file Not on file documented as of this encounter Plan of Treatment Not on file documented as of this encounter Visit Diagnoses Diagnosis Hypertension goal BP (blood pressure) < 140/90 Unspecified essential hypertension 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 documented in this encounter Additional Health Concerns Infection Onset Date Last Indicated Resolved Time Rule Out COVID-19 07/25/2020 07/25/2020 07/26/2020 3:02 PM CDT Rule Out COVID-19 12/04/2020 12/04/2020 12/05/2020 6:04 PM BACK ROLLER Assessment Noted Time PHQ-9 Depression Total Score: 8 07/18/20 19 12:06 PM CDT documented as of this encounter Care Teams Tarper Relationship Specialty Start Date End Date Julito Banuelos MD [address] [place] [id number] PCP - General Family Practice 09/12/15 09/23/21 Vika Kevin APRN ARCHITECTURAL ENGINEERING TEACHER [address] [place] [address] [phone] PCP - General Nurse Practitioner - Family 09/24/21 03/05/22 Vika Kevin APRN ARCHITECTURAL ENGINEERING TEACHER [address] [place] [address] [id number] PCP - General Nurse Practitioner - Family 03/18/22 06/18/22 Vika Kevin APRN ARCHITECTURAL ENGINEERING TEACHER [address] [place] [address] [phone] PCP - General Nurse Practitioner - Family 07/24/22 Julito Banuelos MD [address] [place] [address] [phone] Assigned PCP 02/17/16 07/21/[address] [place] [phone] Test Developer Dietitian, Registered 04/14/19 Mary Kay Jones [facility] Pharmacist 08/01/19 04/20/20 Susannah Blankenship [facility] [address] [place] [address] [address] [place], [place] 724345 Pharmacist Pharmacist 08/08/19 04/15/21 Carolyn Huynh [facility] [address] [place], [place] 152197 Pharmacist Pharmacist 06/25/20 04/15/21 KevinVikalotte, ANODE 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 ARCHITECTURAL ENGINEERING TEACHER [address] [place], [place] 364712 Assigned PCP 07/22/20 11/16/24 Marilyn Willard MD [address] [facility] [address] [place], [place] 885975 Assigned Surgical Provider 08/17/20 08/16/24 Carie Varela DO [address] [place] [address] Assigned Heart and Vascular Provider 08/17/20 01/19/21 Maylin May NP [address] [place], [place] [id number] Assigned Pediatric Specialist Provider 12/16/20 06/13/22 Marisa Rodrigues, RN Clinic Restaurant Cashier 01/15/21 02/26/21 Vilma Long MD [address] [place] [address] Assigned Heart and Vascular Provider 01/20/21 07/20/21 Yasmeen Pendleton [facility] [address] [place] [address] Pharmacist Pharmacist 06/04/21 01/15/22 Cole George LISW Lead Restaurant Cashier 06/13/21 10/07/21 Fletcher Up Community Health Worker 06/13/21 09/12/21 Bautista Casey MD [address] [place] [address] Assigned Heart and Vascular Provider 07/21/21 01/16/23 Jasmyn Oliver CHW Community Health Worker 09/13/21 10/07/21 Yasmeen Pendleton [facility] [address] [place] [address] Assigned MTM Pharmacist 03/22/22 01/02/23 documented as of this encounter
--- OUTSIDE RECORDS SUMMARY | 2025-06-15 21:58 | XMS_ITS ---
Author Organization [facility] (formerly [facility]) Care Team Providers Care Bathhouse Keeper Name Role Phone Carline Purcell Unavailable Unavailable Jodie Olivares Unavailable Allergies and adverse reactions Code CodeSystem Substance Reaction Severity StartDate Concern Status 25590 RXNORM Trimethoprim Unknown 09/09/[address] Sulfa Antibiotics Unknown 09/09/2021 active 7454 RXNORM Nitrofurantoin Unknown 09/09/2021 active 2231 RXNORM Cephalexin Unknown 09/09/2021 active 37027 RXNORM Cefdinir Unknown 09/09/2021 active Care Team Name Role Address Phone Organization Dates Jodie Olivares PCP [facility] ([facility])[place], [address], [place] (Office): : (Pager): [facility] ([facility]) 09/10/2021 - 09/20/2021 Carline Purcell [address] [place] [address], [address], [place] (Office): (Pager): [facility] ([facility]) 09/10/2021 - 09/20/2021 Immunizations Immunization Status Vaccine Details Vaccine Code CodeSystem Date Notes Tetanus completed tetanus and diphtheria toxoids, adsorbed, preservative free, for adult use (5 Lf of tetanus toxoid and 2 Lf of diphtheria toxoid) Mfg: Tenivac 7+ yrs 113 CVX created date: 09/10/2021 administer ed date: 03/15/2018 Per [facility] report. TB 2 Step Mantoux Skin Test completed tuberculin skin test; unspecified formulation lotNumber: [id number] expiry: 01/17/2023 Mfg: sonafi Given 0.1 ml Right Forearm intradermally Step 1 of Multi-step with next step required 98 CVX created date: 09/11/2021 consent date: 09/11/2021 administer ed date: 09/11/2021 Pneumococcal Conjugate Vaccine (PCV13) completed pneumococcal conjugate vaccine, 13 valent Mfg: prevnar 13 133 CVX created date: 09/10/2021 administer ed date: 04/11/2016 Per [facility] report. Pneumococcal Polysaccharide Vaccine (PPSV23) completed pneumococcal polysaccharide vaccine, 23 valent Mfg: Pneumovax 23 33 CVX created date: 09/10/2021 administer ed date: 06/25/2017 Per [facility] report. Influenza completed Influenza, high-dose, split virus, quadrivalent, injectable, preservative free Mfg: Fluzone quad high, pfree 197 CVX created date: 09/10/2021 administer ed date: 08/19/2021 Per [facility] report. Tdap (Tetanus, Diptheria, Pertussis) completed tetanus toxoid, reduced diphtheria toxoid, and acellular pertussis vaccine, adsorbed Mfg: Tdap 115 CVX created date: 09/10/2021 administer ed date: 03/03/2013 Per [facility] report. Shingrix completed zoster vaccine recombinant Mfg: shingrix 187 CVX created date: 09/10/2021 administer ed date: 01/05/2020 First dose given 09/14/20 19. Per [facility] report. SARS-COV-2 (COVID-19) completed SARS-COV-2 (COVID-19) vaccine, mRNA, spike protein, LNP, preservative free, 100 mcg/0.5mL dose or 50 mcg/0.25mL dose Mfg: Moderna (Spikevax) Step 2 of Multi-step with next step required 207 CVX created date: 09/10/2021 administer ed date: 12/25/2020 Per [facility] report. SARS-COV-2 (COVID-19) completed SARS-COV-2 (COVID-19) vaccine, mRNA, spike protein, LNP, preservative free, 100 mcg/0.5mL dose or 50 mcg/0.25mL dose Mfg: Moderna (Spikevax) Step 1 of Multi-step with next step required 207 CVX created date: 09/10/2021 administer ed date: 11/30/2020 Per [facility] report. SARS-COV-2 Booster completed SARS-COV-2 (COVID-19) vaccine, mRNA, spike protein, LNP, preservative free, 100 mcg/0.5mL dose or 50 mcg/0.25mL dose Mfg: Moderna (Spikevax) 207 CVX created date: 09/10/2021 administer ed date: 06/19/2021 Per [facility] report. Mental Status Section Date Assessment Total Score Description 09/20/2021 BIMS 07 severe cognitiv e impairment CAM 2 Delirium indica julieta PHQ-9 10 moderate depres hilda Problems Problem # Description Date of onset Resolved Date Code CodeSystem Concern Status 1 ACQUIRED ABSENCE OF BOTH CERVIX AND UTERUS 09/09/[address] active 2 ALZHEIMER'S DISEASE WITH EARLY ONSET 09/09/[address] active 3 ATHEROSCLEROTIC HEART DISEASE OF [place] CORONARY ARTERY WITH UNSPECIFIED ANGINA PECTORIS 09/09/[address] active 4 CHEST PAIN, UNSPECIFIED 09/09/[address] active 5 CHRONIC OBSTRUCTIVE PULMONARY DISEASE, UNSPECIFIED 09/09/[address] active 6 DEMENTIA IN OTHER DISEASES CLASSIFIED ELSEWHERE, UNSPECIFIED SEVERITY, WITHOUT BEHAVIORAL DISTURBANCE, PSYCHOTIC DISTURBANCE, MOOD DISTURBANCE, AND ANXIETY 09/09/[address] active 7 DISPLACED BIMALLEOLAR FRACTURE OF RIGHT LOWER LEG, SUBSEQUENT ENCOUNTER FOR OPEN FRACTURE TYPE I OR II WITH ROUTINE HEALING 09/09/[address] active 8 ESSENTIAL (PRIMARY) HYPERTENSION 09/09/[address] active 9 GASTRO-ESOPHAGEAL REFLUX DISEASE WITHOUT ESOPHAGITIS 09/09/[address] active 10 GENERALIZED ANXIETY DISORDER 09/09/[address] active 11 HYPERLIPIDEMIA, UNSPECIFIED 09/09/[address] active 12 HYPOTHYROIDISM, UNSPECIFIED 09/09/[address] active 13 [address]MMUNODEFICIENCY, UNSPECIFIED 09/09/[address] active 14 MAJOR DEPRESSIVE DISORDER, SINGLE EPISODE, UNSPECIFIED 09/09/[address] active 15 MODERATE PERSISTENT ASTHMA, UNCOMPLICATED 09/09/[address] active 16 MORBID (SEVERE) OBESITY DUE TO EXCESS CALORIES 09/09/[address] active 17 OTHER SPECIFIED ABNORMAL FINDINGS OF BLOOD CHEMISTRY 09/09/[address] active 18 OTHER SPECIFIED POSTPROCEDURAL STATES 09/09/[address] active 19 PERIPHERAL VASCULAR DISEASE, UNSPECIFIED 09/09/[address] active 20 PERSONAL HISTORY OF OTHER DISEASES OF URINARY SYSTEM 09/09/[address] active 21 PRESENCE OF RIGHT ARTIFICIAL KNEE JOINT 09/09/[address] active 22 PRESENCE OF UNSPECIFIED ARTIFICIAL HIP JOINT 09/09/[address] active 23 PRESENCE OF UROGENITAL IMPLANTS 09/09/[address] active 24 REPEATED FALLS 09/09/[address] active 25 RETENTION OF URINE, UNSPECIFIED 09/09/[address] active 26 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 09/09/[address] active 27 SYNCOPE AND COLLAPSE 09/09/[address] active 28 THORACIC AORTIC ECTASIA 09/09/[address] active 29 TRAUMATIC SUBDURAL HEMORRHAGE WITH LOSS OF CONSCIOUSNESS OF UNSPECIFIED DURATION, SUBSEQUENT ENCOUNTER 09/09/[address] active 30 TYPE 2 DIABETES MELLITUS WITH OTHER CIRCULATORY COMPLICATIONS 09/09/[address] active 31 UNSPECIFIED INTRACRANIAL INJURY WITHOUT LOSS OF CONSCIOUSNESS, SEQUELA 09/09/[address] active 32 UNSPECIFIED SENSORINEURAL HEARING LOSS 09/09/[address] active 33 UNSPECIFIED URETHRAL STRICTURE, MALE, UNSPECIFIED SITE 09/09/[address] active Reason for Referral No Reasons for Referral Entered Social History Social History Observation Description Start Date End Date Code Code System Current Smoking Status Tobacco smoking consumption unknown 524440725 SNOMED CT Sex Assigned At Female 1940 94144-2 [facility] Gender Identity Vital Signs Code Code System Vitals Name Values and Units Timing Information 14657-7 [facility] Pain Level Value=0.0 09/20/2021 07111-8 [facility] Weight Lxrga=251.0 Units=Lbs 9279-1 [facility] Respiratory Rate Value=17.0 Units=/m in 09/20/2021 8462-4 [facility] Blood Pressure-Diastolic Value=78 Un its=mmHg 09/20/2021 8480-6 [facility] Blood Pressure-Systolic Ctuon=499 Un its=mmHg 09/20/2021 8310-5 [facility] Body Temperature Value=97.5 Units= F 09/20/2021 8867-4 [facility] Heart rate Value=83.0 Units=/min 66260-9 [facility] O2 % BldC Oximetry Value=93.0 Units= % 09/20/2021 2339-0 [facility] Blood Sugar Nkduc=670.0 Units=mg/dL 09/17/2021 8302-2 [facility] Height Value=64.0 Units=Inches 09/10/2021
--- OUTSIDE RECORDS SUMMARY | 2025-06-15 21:58 | XMS_ITS | Encounter Summary ---
Author Organization [place] Address [address] [facility] [place] [address] Care Team Providers Care Roll Filler Name Role Phone Julito Banuelos MD Primary Care Provider [phone] Julito Banuelos MD Unavailable Aleshia Henriquez RD Unavailable Unavailable Mary Kay Jones [facility] Unavailable Unavailable Susannah Blankenship [facility] Unavailable [phone] Carolyn Huynh [facility] Unavailable [phone] Vika Kevin APRN SOCK LINING EXAMINER Unavailable + Marilyn Willard MD Unavailable Carie Varela DO Unavailable [phone] Maylin May NP Unavailable [phone] Marisa Hernandez RN Unavailable Unavailable Vilma Long MD Unavailable Yasmeen Pendleton [facility] Unavailable Cole George Unavailable Fletcher Russell Unavailable Unavailable Bautista Casey MD Unavailable Jasmyn Oliver CHW Unavailable [phone] Vika Kevin APRN SOCK LINING EXAMINER Primary Care Prov ider Vika Kevin APRN, CNP Primary Care Prov ider Yasmeen Pendleton [facility] Unavailable [phone] Vika Kevin APRN SOCK LINING EXAMINER Primary Care Prov ider Encounter Details Date Type Department Care Team (Late st Contact Info) Description 08/16/2019 MyC Medical Advice [address] [place] [phone] Mary Kay Jones, [facility] Social History Tobacco Use Types Packs/Day Years [...] on file Legal Sex Female 3:22 AM ELECTRONIC PARTS DESIGNER Gender Identity Not on file Sexual Orientation [...] Out COVID-19 12/04/2020 12/04/2020 12/05/2020 6:04 PM ELECTRONIC PARTS DESIGNER Assessment Noted Time PHQ-9 Depression Total Score: 8 07/18/20 19 12:06 PM CDT documented as of this encounter Care Teams Roll Filler Relationship Specialty Start Date End Date Julito Banuelos MD [address] [place] [address] PCP - General Family Practice 09/12/15 09/23/21 Vika Kevin APRN [facility] [address] [place] [address]1984 PCP - General Nurse Practitioner - Family 09/24/21 03/05/22 Vika Kevin APRN SOCK LINING EXAMINER [address] [place] [address] PCP - General Nurse Practitioner - Family 03/18/22 06/18/22 Vika Kevin APRN SOCK LINING EXAMINER [address] [place] [address] [id number] PCP - General Nurse Practitioner - Family 07/24/22 Julito Banuelos MD [address] [place] [address] 173482 Assigned PCP 02/17/16 07/21/[address] [place] [address] Patrol Lady Dietitian, Registered 04/14/19 Mary Kay Jones, [facility] Pharmacist 08/01/19 04/20/20 Susannah Blankenship, [facility] [address] [place] [address] [address] [place] [address] Pharmacist Pharmacist 08/08/19 04/15/21 Carolyn Huynh [facility] [address] [place], [place] [address] Pharmacist Pharmacist 06/25/20 04/15/21 Vika Kevin APRN SOCK LINING EXAMINER [address] [place] [address] Assigned PCP 07/22/20 11/16/24 Marilyn Willard MD [address] [facility] [address] [place] [address] Assigned Surgical Provider 08/17/20 08/16/24 Carie Varela DO [address] [place] [address] Assigned Heart and Vascular Provider 08/17/20 01/19/21 Maylin May, JENNY [address] [place], [place] [id number] Assigned Pediatric Specialist Provider 12/16/20 06/13/22 Marisa Rodrigues RN Clinic Graphic Pre Press Trades Worker 01/15/21 02/26/21 Vilma Long MD [address] [place] [address] Assigned Heart and Vascular Provider 01/20/21 07/20/21 Yasmeen Pendleton [facility] [address] [place] [address] Pharmacist Pharmacist 06/04/21 01/15/22 Cole George LISW Lead Graphic Pre Press Trades Worker 06/13/21 10/07/21 Fletcher Up Community Health Worker 06/13/21 09/12/21 Bautista Casey MD [address] [place] [address] Assigned Heart and Vascular Provider 07/21/21 01/16/23 Jasmyn Oliver CHW Community Health Worker 09/13/21 10/07/21 Yasmeen Pendleton [facility] [address] [place] [address] Assigned MTM Pharmacist 03/22/22 01/02/23 documented as of this encounter
--- OUTSIDE RECORDS SUMMARY | 2025-06-15 21:58 | XMS_ITS | Encounter Summary ---
Author Organization [place] Address [address] [facility] [place] [address] Care Team Providers Care Ditch Inspector Name Role Phone Aleshia Henriquez RD Unavailable Unavailable Vika Kevin APRN [facility] Unavailable + Marilyn Willard MD Unavailable Maylin May NP Unavailable [phone] Yasmeen Pendleton [facility] Unavailable Bautista Casey MD Unavailable Vika Kevin APRN [facility] Primary Care Prov ider Vika Kevin APRN [facility] Primary Care Prov ider Yasmeen Pendleton [facility] Unavailable Vika Kevin APRN [facility] Primary Care Prov ider Encounter Details Date Type Department Care Team (Late st Contact Info) Description 10/17/2021 [facility] Medical Advice [address] [phone] Yasmeen Pnedleton, [facility] [address] [place], [place] [phone] Social History Tobacco Use Types Packs/Day Years [...] place to sleep or slept in a residential (including now)? 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 No / Unsure 09/25/2021 11:59 AM PAD MAKING 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 documented as of this encounter Plan of Treatment Not on file documented as of this encounter Visit Diagnoses Not on filedocumented in this encounter Additional Health Concerns Assessment Noted Time PHQ-9 Depression Total Score: 10 04/29/ 021 3:56 PM CDT documented as of this encounter Care Teams Ditch Inspector Relationship Specialty Start Date End Date Vika Kevin APRN SERVICE DESK ANALYST [address] [place] [address] PCP - General Nurse Practitioner - Family 09/24/21 03/05/22 Vika Kevin APRN SERVICE DESK ANALYST [address] [place] [address] PCP - General Nurse Practitioner - Family 03/18/22 06/18/22 Vika Kevin APRN SERVICE DESK ANALYST [address] [place] [address] 068352 PCP - General Nurse Practitioner - Family 07/24/[address] Outbound Call Center Representative Dietitian, Registered 04/14/19 Vika Kevin APRN SERVICE DESK ANALYST [address] [place] [address] Assigned PCP 07/22/20 11/16/24 Marilyn Willard MD [address] [place] [address] Assigned Surgical Provider 08/17/20 08/16/24 Maylin May NP [address] [place] [address] Assigned Pediatric Specialist Provider 12/16/20 06/13/22 Yasmeen Pendleton [facility] [address] [place] [address] Pharmacist Pharmacist 06/04/21 01/15/22 Bautista Casey MD [address] [place] [address] Assigned Heart and Vascular Provider 07/21/21 01/16/23 Yasmeen Pendleton [facility] [address] [place] [address] Assigned MTM Pharmacist 03/22/22 01/02/23 documented as of this encounter
--- OUTSIDE RECORDS SUMMARY | 2025-06-15 21:58 | XMS_ITS | Encounter Summary ---
Author Organization [place] Address [address] [facility] [place] [address] Care Team Providers Care Tufting Machine Fixer Name Role Phone Julito Banuelos MD Primary Care Provider [phone] Julito Banuelos MD Unavailable Aleshia Henriquez RD Unavailable Unavailable Mary Kay Jones [facility] Unavailable Unavailable Susannah Blankenship [facility] Unavailable Carolyn Huynh [facility] Unavailable [phone] Vika Kevin APRN FILM DEVELOPER Unavailable + Marilyn Willard MD Unavailable Carie Varela DO Unavailable [phone] Maylin May NP Unavailable [phone] Marisa Hernandez RN Unavailable Unavailable Vilma Long MD Unavailable Yasmeen Pendleton [facility] Unavailable Cole George Unavailable Fletcher Russell Unavailable Unavailable Bautista Casey MD Unavailable Jasmyn Oliver CHW Unavailable [phone] Vika Kevin APRN FILM DEVELOPER Primary Care Prov ider Vika Kevin APRN [facility] Primary Care Prov ider Yasmeen Pendleton [facility] Unavailable [phone] Vika Kevin APRN [facility] Primary Care Prov ider Reason for Visit * Reason Onset Date Comments Refill Request 09/22/2019 Encounter Details Date Type Department Care Team (Late st Contact Info) Description 09/22/2019 MyC Refill [facility] [address] [facility] [address] [place] [phone] Carie Varela DO [address] [place], [place] [address] Refill Request Social History Tobacco Use Types [...] on file Legal Sex Female 3:22 AM GUT PULLER Gender Identity Not on file Sexual Orientation Not on file Occupation Industry Job Start Date Job End Date Not on file Not on file Not on file Not on file documented as of this encounter Plan of Treatment Not on file documented as of this encounter Visit Diagnoses Diagnosis Coronary artery disease involving [place] coronary artery of [place] heart without angina pectoris Unstable angina (H) Intermediate coronary syndrome documented in this encounter Additional Health Concerns Infection Onset Date Last Indicated Resolved Time Rule Out COVID-19 07/25/2020 07/25/2020 07/26/2020 3:02 PM CDT Rule Out COVID-19 12/04/2020 12/04/2020 12/05/2020 6:04 PM GUT PULLER Assessment Noted Time PHQ-9 Depression Total Score: 8 07/18/20 19 12:06 PM CDT documented as of this encounter Care Teams Tufting Machine Fixer Relationship Specialty Start Date End Date Julito Banuelos MD [address] [place] [address] PCP - General Family Practice 09/12/15 09/23/21 Vika Kevin APRN FILM DEVELOPER [address] [place] [address] PCP - General Nurse Practitioner - Family 09/24/21 03/05/22 Vika Kevin APRN FILM DEVELOPER [address] [place] [address] PCP - General Nurse Practitioner - Family 03/18/22 06/18/22 Vika Kevin APRN FILM DEVELOPER [address] [place] [address] PCP - General Nurse Practitioner - Family 07/24/22 Julito Banuelos MD [address] [place] [address] Assigned PCP 02/17/16 07/21/[address] [place] [address] Carton Marker Machine Dietitian, Registered 04/14/19 Mary Kay Jones [facility] Pharmacist 08/01/19 04/20/20 Susannah Blankenship [facility] [address] [place] [address] [address] [place] [address] Pharmacist Pharmacist 08/08/19 04/15/21 Carolyn Huynh [facility] [address] [place] [address] Pharmacist Pharmacist 06/25/20 04/15/21 Vika Kevin, CONSTRUCTION SUPERVISOR/CARPENTER FILM DEVELOPER [address] [place], [place] [address] Assigned PCP 07/22/20 11/16/24 Marilyn Willard MD [address] [facility] [address] [place], [place] [address] Assigned Surgical Provider 08/17/20 08/16/24 Carie Varela DO [address] [place] [address] Assigned Heart and Vascular Provider 08/17/20 01/19/21 Maylin May NP [address] [place], [place] [phone] Assigned Pediatric Specialist Provider 12/16/20 06/13/22 Marisa Rodrigues, RN Clinic Production Machine Operator 01/15/21 02/26/21 Vilma Long MD [address] [place] [address] Assigned Heart and Vascular Provider 01/20/21 07/20/21 Yasmeen Pendleton [facility] [address] [place] [address] Pharmacist Pharmacist 06/04/21 01/15/22 Cole George LISW Lead Production Machine Operator 06/13/21 10/07/21 Fletcher Up Community Health Worker 06/13/21 09/12/21 Bautista Casey MD [address] [place] [address] Assigned Heart and Vascular Provider 07/21/21 01/16/23 Jasmyn Oliver CHW Community Health Worker 09/13/21 10/07/21 Yasmeen Pendleton, [facility] [address] [place], [place] [address] Assigned MTM Pharmacist 03/22/22 01/02/23 documented as of this encounter
--- OUTSIDE RECORDS SUMMARY | 2025-06-15 21:59 | XMS_ITS | Encounter Summary ---
Author Organization [place] Address [address] [facility] [place] [address] Care Team Providers Care Bulk Plant Supervisor Name Role Phone Julito Banuelos MD Primary Care Provider [phone] Julito Banuelos MD Unavailable Julito Banuelos MD Unavailable Aleshia Henriquez RD Unavailable Unavailable Mary Kay Jones [facility] Unavailable Unavailable Susannah Blankenship [facility] Unavailable [phone] Carolyn Huynh [facility] Unavailable Vika Kevin APRN STRATEGIC SOURCING MANAGER Unavailable + Marilyn Willard MD Unavailable [phone] Carie Varela DO Unavailable [phone] Maylin May NP Unavailable [phone] Marisa Rodrigues RN Unavailable Unavailable Vilma Long MD Unavailable Yasmeen Pendleton [facility] Unavailable [phone] Cole George Unavailable Fletcher Russell Unavailable Unavailable Bautista Casey MD Unavailable Jasmyn Oliver Unavailable [phone] Vika Kevin APRN [facility] Primary Care Prov ider Kevin Vika Delgado JAIME [facility] Primary Care Prov ider Yasmeen Pendleton [facility] Unavailable + [phone] [place] Vika Delgado JAIME [facility] Primary Care Prov ider Reason for Visit * Reason Onset Date Comments MyChart Communication 11/01/2018 Encounter Details Date Type Department Care Team (Late st Contact Info) Description 11/01/2018 MyC Medical Advice [address] [address] [place] [address] [place] [address] MyChart Communication Social History Tobacco Use [...] on file Legal Sex Female 3:22 AM ASSISTED LIVING ASSISTANT Gender Identity Not on file Sexual Orientation Not on file Occupation Industry Job Start Date Job End Date Not on file Not on file Not on file Not on file documented as of this encounter Miscellaneous Notes * Telephone Encounter - Araseli Briceño RN - 11/16/2018 8:56 AM CST Urine is in process. YUE Mcdowell, RN, PHN [facility] Triage ) [phone] STED LIVING ASSISTANT * Telephone Encounter - Leann Massey - 11/16/2018 8:28 AM CST The patient called and said her Ty is bringing in her urine. She wanted it noted that she is on an antibiotic right now. Leann Massey Patient Outside Machinist STED LIVING ASSISTANT * Telephone Encounter - Araseli Briceño RN - 11/02/2018 2:37 PM CST Mychart note sent to patient. YUE Mcdowell, RN, PHN [facility]) [phone] STED LIVING ASSISTANT * Telephone Encounter - Julito Banuelos MD - 11/02/2018 2:17 PM CST Please review with patient Can certainly try prevagen, have not seen neurologist recommend to date? STED LIVING ASSISTANT * Telephone Encounter - Araseli Briceño RN - 11/02/2018 7:55 AM CST Forwarded to TS. Please review patient's [employer] message and advise. Araseli Briceño RN, BS, PHN STED LIVING ASSISTANT documented in this encounter Plan of Treatment Not on file documented as of this encounter Visit Diagnoses Not on filedocumented in this encounter Additional Health Concerns Infection Onset Date Last Indicated Resolved Time Rule Out COVID-19 07/25/2020 07/25/2020 07/26/2020 3:02 PM CDT Rule Out COVID-19 12/04/2020 12/04/2020 12/05/2020 6:04 PM ASSISTED LIVING ASSISTANT Assessment Noted Time PHQ-9 Depression Total Score: 4 04/27/20 18 7:12 AM CDT documented as of this encounter Care Teams Bulk Plant Supervisor Relationship Specialty [place] [address] [place] [address] PCP - General Family Practice 09/12/15 09/23/21 Julito Banuelos MD [address] [place] [address] PCP - Assigned PCP 02/17/16 12/28/18 Vika Kevin APRN STRATEGIC SOURCING MANAGER [address] [place] [address] PCP - General Nurse Practitioner - Family 09/24/21 03/05/22 Vika Kevin APRN STRATEGIC SOURCING MANAGER [address] [place] [address] PCP - General Nurse Practitioner - Family 03/18/22 06/18/22 Vika Kevin APRN STRATEGIC SOURCING MANAGER [address] [place] [address] 196362 PCP - General Nurse Practitioner - Family 07/24/22 Julito Banuelos MD [address] [place] [address] 360642 Assigned PCP 02/17/16 07/21/[address] [place] [address] Construction Area Manager Dietitian, Registered 04/14/19 Mary Kay Jones [facility] Pharmacist 08/01/19 04/20/20 Susannah Blankenship [facility] [address] [place] [address] [address] [place] [address] Pharmacist Pharmacist 08/08/19 04/15/21 Carolyn Huynh [facility] [address] [place], [place] [address] Pharmacist Pharmacist 06/25/20 04/15/21 KevinVika, TUNNEL ELASTIC OPERATOR [employer] STRATEGIC SOURCING MANAGER [address] [place], [place] 9469[address] Assigned PCP 07/22/20 11/16/24 Marilyn Willard MD [address] [facility] [address] [place], [place] 6748[address] Assigned Surgical Provider 08/17/20 08/16/24 Carie Varela DO [address] [place] [address] Assigned Heart and Vascular Provider 08/17/20 01/19/21 Maylin May NP [address] [place], [place] [id number] Assigned Pediatric Specialist Provider 12/16/20 06/13/22 Marisa Rodrigues, RN Clinic Switching Clerk 01/15/21 02/26/21 Vilma Long MD [address] [place] [address] Assigned Heart and Vascular Provider 01/20/21 07/20/21 Yasmeen Pendleton [facility] [address] [place] [address] Pharmacist Pharmacist 06/04/21 01/15/22 Cole George LISW Lead Switching Clerk 06/13/21 10/07/21 Fletcher Up Community Health Worker 06/13/21 09/12/21 Bautista Casey MD [address] [place] [address] Assigned Heart and Vascular Provider 07/21/21 01/16/23 Jasmyn Oliver CHW Community Health Worker 09/13/21 10/07/21 Yasmeen Pendleton [facility] [address] [place] [address] Assigned MTM Pharmacist 03/22/22 01/02/23 documented as of this encounter
--- OUTSIDE RECORDS SUMMARY | 2025-06-15 21:59 | XMS_ITS | Encounter Summary ---
Author Organization [place] Address [address] [facility] [address] Care Team Providers Care Bridal Service Sales And Management Name Role Phone Julito Banuelos MD Primary Care Provider [phone] Julito Banuelos MD Unavailable Aleshia Henriquez RD Unavailable Unavailable Mary Kay Jones [facility] Unavailable Unavailable Susannah Blankenship [facility] Unavailable [phone] Carolyn Huynh [facility] Unavailable [phone] Vika Kevin APRN [facility] [employer] Unavailable + Marilyn Willard MD Unavailable Carie Varela DO Unavailable [phone] Maylin May NP Unavailable [phone] Marisa Hernandez RN Unavailable Unavailable Vilma Long MD Unavailable Yasmeen Pendleton [facility] Unavailable [phone] Cole George Unavailable Fletcher Russell Unavailable Unavailable Bautista Casey MD Unavailable [phone] Jasmyn Oliver CHW Unavailable [phone] Vika Kevin APRN [employer] Primary Care Prov ider Vika Kevin APRN [facility] Primary Care Prov ider Yasmeen Pendleton [facility] Unavailable + [phone] Vika Kevin APRN [facility] Primary Care Prov ider Reason for Visit * Reason Comments Medication Refill Encounter Details Date Type Department Care Team (Late st Contact Info) Description 02/23/[address] [phone] [place] [address] [place] [address] Medication Refill Social History Tobacco Use [...] on file Legal Sex Female 3:22 AM SVP OF DIGITAL Gender Identity Not on file Sexual Orientation [...] review/approval because: Age Range Nazanin Zhong RN [facility] documented in this encounter Plan of Treatment [...] Out COVID-19 12/04/2020 12/04/2020 12/05/2020 6:04 PM SVP OF DIGITAL Assessment Noted Time PHQ-9 Depression Total Score: 8 07/18/20 19 12:06 PM CDT documented as of this encounter Care Teams Bridal Service Sales And Management Relationship Specialty Start Date End Date Julito Banuelos MD [address] [place] [address] PCP - General Family Practice 09/12/15 09/23/21 Vika Kevin APRN [employer] [address] [place] [address] PCP - General Nurse Practitioner - Family 09/24/21 03/05/22 Vika Kevin APRN [employer] [address] [place] [address] PCP - General Nurse Practitioner - Family 03/18/22 06/18/22 Vika Kevin APRN [employer] [address] [place] [address] PCP - General Nurse Practitioner - Family 07/24/22 Julito Banuelos MD [address] [place] [address] 130[address] Assigned PCP 02/17/16 07/21/[address] [place] [address] Strand Forming Machine Operator Dietitian, Registered 04/14/19 Mary Kay Jones, [facility] Pharmacist 08/01/19 04/20/20 Susannah Blankenship, [facility] [address] [facility] [address] [place], [place] [address] Pharmacist Pharmacist 08/08/19 04/15/21 Carolyn Huynh, [facility] [address] [place] [address] Pharmacist Pharmacist 06/25/20 04/15/21 Vika Kevin, PURCHASING ENGINEER [facility] [address] [place] [address] 910772 Assigned PCP 07/22/20 11/16/24 Marilyn Willard MD [address] [facility] [address] [place], [place] [address] Assigned Surgical Provider 08/17/20 08/16/24 Carie Varela DO [address] [place] 664125 Assigned Heart and Vascular Provider 08/17/20 01/19/21 Maylin May NP [address] [place], [place] [address] Assigned Pediatric Specialist Provider 12/16/20 06/13/22 Marisa Rodrigues, RN Clinic Auditing Clerk 01/15/21 02/26/21 Vilma Long MD [address] [place] [address] Assigned Heart and Vascular Provider 01/20/21 07/20/21 Yasmeen Pendleton, [facility] [address] [place] [address] Pharmacist Pharmacist 06/04/21 01/15/22 Cole George LISW Lead Auditing Clerk 06/13/21 10/07/21 Fletcher Up Community Health Worker 06/13/21 09/12/21 Bautista Casey MD [address] [place] [address] Assigned Heart and Vascular Provider 07/21/21 01/16/23 Jasmyn Oliver CHW [facility] Health Worker 09/13/21 10/07/21 Yasmeen Pendleton [facility] [address] [place] [address] Assigned MTM Pharmacist 03/22/22 01/02/23 documented as of this encounter
--- OUTSIDE RECORDS SUMMARY | 2025-06-15 21:59 | XMS_ITS | Encounter Summary ---
Author Organization [place] Address [address] [facility] [place] [address] Care Team Providers Care Set Up Mechanic Automatic Line Name Role Phone Julito Banuelos MD Primary Care Provider [phone] Unavailable Unavailable Susannah Blankenship [facility] Unavailable [phone] Carolyn Huynh [facility] Unavailable [phone] Vika Kevin APRN [facility] Unavailable + Marilyn Willard MD Unavailable [phone] Maylin May NP Unavailable [phone] Vilma Long MD Unavailable + [phone] Yasmeen Pendleton [facility] Unavailable [phone] Cole George Unavailable Fletcher Russell Unavailable Unavailable Bautista Casey MD Unavailable [phone] Jasmyn Oliver Unavailable [phone] Vika Kevin APRN [facility] Primary Care Prov ider Vika Kevin APRN [facility] Primary Care Prov ider Yasmeen Pendleton [facility] Unavailable Vika Kevin APRN PRODUCTION ASSEMBLER Primary Care Prov ider Encounter Details Date Type Department Care Team (Late st Contact Info) Description 03/18/2021 MyC Medical Advice [address] [place] [address] Susannah Blankenship, [facility] [address] [facility] [address] [place] [address] Social History Tobacco Use Types Packs/Day Years [...] on file Legal Sex Female 3:22 AM REST ROOM ATTENDANT Gender Identity Not on file [...] Depression Total Score: 10 020 9:30 AM REST ROOM ATTENDANT documented as of this encounter Care Teams Set Up Mechanic Automatic Line Relationship Specialty Start Date End Date Julito Banuelos MD [address] [place] [address] [id number] PCP - General Family Practice 09/12/15 09/23/21 Vika Kevin APRN PRODUCTION ASSEMBLER [address] [place] [address] 752182 PCP - General Nurse Practitioner - Family 09/24/21 03/05/22 Vika Kevin APRN PRODUCTION ASSEMBLER [address] [place] [address] PCP - General Nurse Practitioner - Family 03/18/22 06/18/22 Vika Kevin APRN PRODUCTION ASSEMBLER [address] [place] [address]69 PCP - General Nurse Practitioner - Family 07/24/[address] [place] [address] Fiberglass Auto Body Repairer Dietitian, Registered 04/14/19 Susannah Blankenship, [facility] 420 [facility] [address] [place] [address] Pharmacist Pharmacist 08/08/19 04/15/21 [facility] [address] [place] [address] Pharmacist Pharmacist 06/25/20 04/15/21 Vika Kevin APRN PRODUCTION ASSEMBLER [address] [place] [address] Assigned PCP 07/22/20 11/16/24 Marilyn Willard MD [address] [facility] [address] [place], [place] [address] Assigned Surgical Provider 08/17/20 08/16/24 Maylni May NP [address] [place] [address] Assigned Pediatric Specialist Provider 12/16/20 06/13/22 Vilma Long MD [address] [place] [address] Assigned Heart and Vascular Provider 01/20/21 07/20/21 [facility] [address] [place] [address] 049285 Pharmacist Pharmacist 06/04/21 01/15/22 Cole George LISW Lead Lead Dental Assistant 06/13/21 10/07/21 Fletcher Up Community Health Worker 06/13/21 09/12/21 Bautista Casey MD [address] [place] [address] Assigned Heart and Vascular Provider 07/21/21 01/16/23 Jasmyn Oliver [facility] Community Health Worker 09/13/21 10/07/21 Yasmeen Pendleton, [facility] [address] [place] [address] Assigned MTM Pharmacist 03/22/22 01/02/23 documented as of this encounter
--- OUTSIDE RECORDS SUMMARY | 2025-06-15 21:59 | XMS_ITS | Encounter Summary ---
Author Organization [place] Address [address] [facility] [place] [address] Care Team Providers Care Manual Lathe Operator Name Role Phone Angella Mendieta MD Primary Care Provider Julito Banuelos MD Primary Care Provider [phone] Julito Banuelos MD Unavailable Julito Banuelos MD Unavailable Aleshia Henriquez RD Unavailable Unavailable Mary Kay Joens [facility] Unavailable Unavailable Susannah Blankenship [facility] Unavailable Carolyn Huynh [facility] Unavailable [phone] Vika Kevin APRN JOURNAL[employer] INTERN Unavailable + Marilyn Willard MD Unavailable Carie Varela DO Unavailable [phone] Maylin May NP Unavailable [phone] Marisa Rodrigues RN Unavailable Unavailable Vilma Long MD Unavailable + [phone] Yasmeen Pendleton [facility] Unavailable Cole George Unavailable Fletcher Russell Unavailable Unavailable Bautista Casey MD Unavailable [phone] Jasmyn Oliver CHW Unavailable [phone] Vika Kevin APRN [facility] Primary Care Prov ider Vika Kevin APRN [facility] Primary Care Prov ider + Yasmeen Pendleton [facility] Unavailable Vika Kevin APRN [facility] Primary Care Prov ider + Encounter Details Date Type Department Care Team (Late st Contact Info) Description 08/16/2015 MyC Medical Advice [facility] [address] [facility] [address] [place] [address] Jaimee Donald MD HEART [facility] [address] [facility] [address] [place], [place] [id number] Social History Tobacco Use Types Packs/Day Years Used Date Smoking Tobacco: Former Cigarettes 0.3 15 0 10/26/1961 - 10/26/1976 Smokeless Tobacco: Never Alcohol Use Standard Drinks/Week Comments Yes 0 (1 standard drink = 0.6 oz pur e alcohol) 1-2 glasses of wine weekly Comments No Sex and Gender Information Value Date Recorded Sex Assigned at Not on file Legal Sex Female 3:[address] REPORTER Gender Identity Not on file Sexual Orientation [...] Out COVID-19 12/04/2020 12/04/2020 12/05/2020 6:[address] REPORTER documented as of this encounter Care Teams Manual Lathe Operator Relationship Specialty [place] [address] [place] [address] 608272 PCP - General Family Practice 07/18/15 09/11/15 Julito Banuelos MD [address] [place] [address] PCP - General Family Practice 09/12/15 09/23/21 Julito Banuelos MD [address] [place] [address] PCP - Assigned PCP 02/17/16 12/28/18 Vika Kevin APRN JOURNALISM INTERN [address] [place] [address]379 PCP - General Nurse Practitioner - Family 09/24/21 03/05/22 Vika Kevin APRN JOURNALISM INTERN [address] [place] [address] PCP - General Nurse Practitioner - Family 03/18/22 06/18/22 Vika Kevin APRN JOURNALISM INTERN [address] [place] [address] PCP - General Nurse Practitioner - Family 07/24/22 Julito Banuelos MD [address] [place] [address] Assigned PCP 02/17/16 07/21/[address] [place] [address] Paste Worker Dietitian, Registered 04/14/19 Mary Kay Jones, [facility] Pharmacist 08/01/19 04/20/20 Susannah Blankenship, [facility] 420 [facility] [address] [place] [address] Pharmacist Pharmacist 08/08/19 04/15/21 Carolyn Huynh [facility] [address] [place] [address] Pharmacist Pharmacist 06/25/20 04/15/21 Vika Kevin APRN JOURNALISM INTERN [address] [place] [address] 554002 Assigned PCP 07/22/20 11/16/24 Marilyn Willard MD 420 [facility] [address] [place], [place] [address] Assigned Surgical Provider 08/17/20 08/16/24 Carie Varela DO [address] [place] [address] Assigned Heart and Vascular Provider 08/17/20 01/19/21 Maylin May NP [address] [facility] [place] [place] [id number] Assigned Pediatric Specialist Provider 12/16/20 06/13/22 Marisa Rodrigues, RN Clinic Motor And Generator Brush Cutter 01/15/21 02/26/21 Vilma Long MD [address] [place] [address] Assigned Heart and Vascular Provider 01/20/21 07/20/21 Yasmeen Pendleton [facility] [address] [place], [place] [address] Pharmacist Pharmacist 06/04/21 01/15/22 Cole George LISW Lead Motor And Generator Brush Cutter 06/13/21 10/07/21 Fletcher Up Community Health Worker 06/13/21 09/12/21 Bautista Casey MD [address] [place], [place] [address] Assigned Heart and Vascular Provider 07/21/21 01/16/23 Jasmyn Oliver CHW Community Health Worker 09/13/21 10/07/21 Yasmeen Pendleton [facility] [address] [place] [address] Assigned MTM Pharmacist 03/22/22 01/02/23 documented as of this encounter
--- OUTSIDE RECORDS SUMMARY | 2025-06-15 21:59 | XMS_ITS | Clinical Summary ---
Author Organization [facility] Address [address] [place] [address] Care Team Providers Care Manager Market Research Name Role Phone Julito Banuelos MD Primary Care Provider [phone] Allergies Active Allergy Reactions Criticality Noted Date [...] on file Legal Sex Female 6:13 AM ENVIRONMENTAL SERVICES MANAGER Gender Identity Not on file Sexual Orientation Not on file Obstetrics History Last Filed Vital Signs Vital Sign Reading Time Taken Comments Blood Pressure 159/79 10/17/2018 10:16 AM ENVIRONMENTAL SERVICES MANAGER Pulse 78 10/17/2018 10:16 AM ENVIRONMENTAL SERVICES MANAGER Temperature 36.7 C (98 F) 10/17/2018 10:16 AM ENVIRONMENTAL SERVICES MANAGER Respiratory Rate 20 10/17/2018 10:16 AM ENVIRONMENTAL SERVICES MANAGER Oxygen Saturation 96% 10/17/2018 10:16 AM ENVIRONMENTAL SERVICES MANAGER Inhaled Oxygen Concentration - - Weight 98 kg (216 lb) 10/17/2018 10:16 AM ENVIRONMENTAL SERVICES MANAGER Height 172.7 cm (5' 8) 10/17/2018 10:16 AM ENVIRONMENTAL SERVICES MANAGER Body Mass Index 32.84 10/17/2018 10:16 AM ENVIRONMENTAL SERVICES MANAGER Plan of Treatment Health Maintenance Due Date Last Done Comments Tetanus booster 1952 Depression screening for age 12+ 1953 BMI (ht and wt on same day) for age 18+ 1959 Pneumococcal series for age 50+ (1 of 1 - PCV) 1991 Zoster (shingles) series for age 50+ (1 of 2) 1991 DEXA/DXA scan for age 65+ 2006 Medicare Wellness for age 65+ 2006 RSV vaccine for adults or (1 - 1-dose 75+ series) 2016 COVID-19 vaccine series ( season) 2024 03/03/2022, 12/25/2020, 11/30/2020 Influenza Vaccine (#1) 2025 Hepatitis B series for 19+ Aged Out N o longer eligible based on patient's age to complete this topic Insurance MEDICARE PART B HB ONLY BLUE CROSS [place] BLUE HB ONLY BLUE CROSS MEDICARE ADVANTAGE MR Care Teams Manager Market Research Relationship Specialty Start Date End Date Julito Banuelos MD PCP - General Family Practice 10/17/18
--- OUTSIDE RECORDS SUMMARY | 2025-06-15 21:59 | XMS_ITS | Encounter Summary ---
Author Organization [place] Address [address] [place] [address] Care Team Providers Care Elastic Attacher Chainstitch Name Role Phone Cortez Lu MD Primary Care Provider [phone] Niko Resendiz MD Primary Care Provider Carlie Mac MD Primary Care Provide r Angella Mendieta MD Primary Care Provider Julito Banuelos MD Primary Care Provider [phone] Julito Banuelos MD Unavailable Julito Banuelos MD Unavailable Aleshia Henriquez RD Unavailable Unavailable Mary Kay Jones [facility] Unavailable Unavailable Susannah Blankenship [facility] Unavailable [phone] Carolyn Huynh [facility] Unavailable [phone] Vika Kevin APRN SPRAY OPERATOR Unavailable + Marilyn Willard MD Unavailable [phone] Carie Varela DO Unavailable +[phone] Maylin May NP Unavailable [phone] Marisa Rodrigues RN Unavailable Unavailable Vilma Long MD Unavailable + [phone] Yasmeen Pendleton [facility] Unavailable + [phone] Cole George Unavailable Fletcher Russell Unavailable Unavailable Bautista Casey MD Unavailable [phone] Jasmyn Oliver [facility] Unavailable [phone] Vika Kevin APRN [facility] Primary Care Prov ider Vika Kevin APRN [facility] Primary Care Prov ider Yasmeen Pendleton [facility] Unavailable + [phone] [facility] Primary Care Prov ider Encounter Details Date Type Department Care Team (Late st Contact Info) Description 02/01/2013 Office Visit-[facility] [address] [place] [address] Reji Davis MD [address] [place], [place] [id number] Social History Tobacco Use Types Packs/Day Years Used Date Smoking Tobacco: Former Cigarettes 0.3 15 0 10/26/1961 - 10/26/1976 Smokeless Tobacco: Never Alcohol Use Standard Drinks/Week Comments Yes 0 (1 standard drink = 0.6 oz pur e alcohol) 1-2 glasses of wine weekly Comments No Sex and Gender Information Value Date Recorded Sex Assigned at Not on file Legal Sex Female 3:22 AM PEOPLESOFT CONSULTANT Gender Identity Not on file Sexual Orientation Not on file Occupation Industry Job Start Date Job End Date Not on file Not on file Not on file Not on file documented as of this encounter Progress Notes * Reji Davis MD - 02/01/2013 2:34 PM CDT Progress Note Created by: Reji Davis Dictation # [id number] DATE: 01/28/2013 MARIALUISA COSBY DATE OF : 1940 AGE: [age] years old Referring Physician: CORTEZ LU Referring Clinic: [facility] CURRENT DIAGNOSES 1. Diabetes Pcfglcnf-Eoc-Mapdyfa Dependent, 250.00 2. - Hyperlipidemia mixed, 272.2 3. - Hypertension, 401.1 4. - CAD, 414.00 ALLERGIES lisinopril Nitrofurantoin Nitrofurantoin Macrocrystal pramipexole Di-HCl Sulfasalazine tolterodine tartrate zolpidem tartrate MEDICATIONS (prior to changes made today) 1. Asmanex Twisthaler 220 mcg (120 doses) Aerosol Powdr [facility] ActivInhl, Take as Directed 2. aspirin, [...] daily 9. Nasacort AQ 55 mcg Aerosol, [place], Take as Directed 10. Plavix 75 mg [...] HISTORY OF PRESENT ILLNESS INDICATION: History of pwl-YK-qmwmldb elevation [place], here to establish care. Ms. Cosby is a very pleasant 72-year-old female with a history of hypertension, hyperlipidemia,and type 2 diabetes mellitus. She was wintering in [place] when she developed acute onset one evening of back pain with radiation into her chest. She also had associated slight shortness of breath. She had had complaints of shortness of breath with exertion for some time, but it appeared worse the several weeks prior to this event. She subsequently went to the Emergency Room and was found to havehad a dbd-XM-eccknke elevation [place]. On 12/27/12 she was taken to the Cardiac Catheterization Lab at [facility] in [place], [place]. There she was found to have significant disease of the left circumflex artery. She underwent two drug-eluting stent implantations. The first was a 2.5x12 mm Desha Resolute drug-eluting stent to the mid circumflex. The second was a 3.0x15 mm Desha Resolute drug-eluting stent to the proximal left [...] Lasix as she recently drove back from [place]. She is planning to take her Lasix [...] myocardial perfusion (Nuc) Jun 2007, echo 12/2012 ([place]) Cardiac Cath Results: 12/2012 Desha Resolute NELIA to the mid and prox [...] - lives with and been living in [place] for 3 months; Place of - [place]; [...] takes allergy shots, allergies get worse in [place] but they can get bad in [place] [...] #0 (Zero) Nasacort AQ 55 mcg Aerosol, [place], Take as Directed, #0 (Zero) Plavix 75 [...] (Zero) Physician Order IMPRESSIONS/PLAN 1. History of vcy-SK-jodukod elevation [place]. 2. Coronary artery disease - [...] her up for cardiac rehab in the [place] office since this is where she lives. [...] days while she was traveling back from [place]. She is to contact the clinic should [...] Out COVID-19 12/04/2020 12/04/2020 12/05/2020 6:04 PM PEOPLESOFT CONSULTANT documented as of this encounter Care Teams Elastic Attacher Chainstitch Relationship Specialty Start Date End Date Cortez Lu MD XXX RETIRED XXX [address] [place] [address] PCP - General 12/10/01 01/10/14 Niko Resendiz MD [address] [address] PCP - General Internal Medicine 01/11/14 01/29/14 Carlie Mac MD [address] [place] [address] PCP - General Pediatrics 01/30/14 07/17/15 Angella Mendieta MD [address] [place] [address] PCP - General Family Practice 07/18/15 09/11/15 Julito Banuelos MD [address] [place] [address] PCP - General Family Practice 09/12/15 09/23/21 Julito Banuelos MD [address] [place] [address] PCP - Assigned PCP 02/17/16 12/28/18 Vika Kevin APRN SPRAY OPERATOR [address] [place] [address] PCP - General Nurse Practitioner - Family 09/24/21 03/05/22 Vika Kevin APRN SPRAY OPERATOR [address] [place] [address] PCP - General Nurse Practitioner - Family 03/18/22 06/18/22 Vika Kevin APRN SPRAY OPERATOR [address] [place] [address] PCP - General Nurse Practitioner - Family 07/24/22 Julito Banuelos MD [address] [place] [address] 175072 Assigned PCP 02/17/16 07/21/[address] [place] [address] Collaborative Physician Dietitian, Registered 04/14/19 Mary Kay Jones, [facility] Pharmacist 08/01/19 04/20/20 [facility] [address] [place] [address] [address] [place], [place] [address] Pharmacist Pharmacist 08/08/19 04/15/21 Carolyn Huynh [facility] [address] [place], [place] [address] Pharmacist Pharmacist 06/25/20 04/15/21 Vika Kevin APRN SPRAY OPERATOR [address] [place] [address] 407122 Assigned PCP 07/22/20 11/16/24 Marilyn Willard MD [address] [place] [address] [address] [place], [place] [address] Assigned Surgical Provider 08/17/20 08/16/24 Carie Varela DO [address] [place], [place] [address] Assigned Heart and Vascular Provider 08/17/20 01/19/21 Maylin May NP [address] [place], [place] [id number] Assigned Pediatric Specialist Provider 12/16/20 06/13/22 Marisa Rodrigues, RN Clinic Healthcare Market Consultant 01/15/21 02/26/21 Vilma Long MD [address] [place] [address] Assigned Heart and Vascular Provider 01/20/21 07/20/21 [facility] [address] [place], [place] [address] Pharmacist Pharmacist 06/04/21 01/15/22 Cole George LISW Lead Healthcare Market Consultant 06/13/21 10/07/21 Fletcher Up Community Health Worker 06/13/21 09/12/21 Bautista Casey MD [address] [place] [address] Assigned Heart and Vascular Provider 07/21/21 01/16/23 Jasmyn Oliver CHW Community Health Worker 09/13/21 10/07/21 Yasmeen Pendleton [facility] [address] [place] [address] Assigned MTM Pharmacist 03/22/22 01/02/23 documented as of this encounter
--- OUTSIDE RECORDS SUMMARY | 2025-06-15 21:59 | XMS_ITS | Encounter Summary ---
Author Organization [place] Address [address] [facility] [place] [address] Care Team Providers Care U.S. Commissioner Name Role Phone Julito Banuelos MD Primary Care Provider [phone] Unavailable Unavailable Susannah Blankenship [facility] Unavailable [phone] Carolyn Huynh [facility] Unavailable [phone] Vika Kevin APRN [facility] Unavailable + Marilyn Willard MD Unavailable [phone] Carie Varela DO Unavailable [phone] Maylin May NP Unavailable [phone] Marisa Hernandez RN Unavailable Unavailable Vilma Long MD Unavailable + [phone] Yasmeen Pendleton [facility] Unavailable Cole George Unavailable Fletcher Russell Unavailable Unavailable Bautista Casey MD Unavailable [phone] Jasmyn Oliver Unavailable [phone] Vika Kevin APRN [facility] Primary Care Prov ider Vika Kevin APRN [facility] Primary Care Prov ider Yasmeen Pendleton [facility] Unavailable [phone] Vika Kevin APRN AZURE PRINCIPAL SOLUTION SPECIALIST Primary Care Prov ider Encounter Details Date Type Department Care Team (Late st Contact Info) Description 01/07/2021 MyC Medical Advice [facility] [address] [facility] [address] [place] [address] [facility] [address] [place] [address] Social History Tobacco Use Types [...] on file Legal Sex Female 3:22 AM SHORE HAND DREDGE OR BARGE Gender Identity Not on file Sexual Orientation [...] Depression Total Score: 10 020 9:30 AM SHORE HAND DREDGE OR BARGE documented as of this encounter Care Teams U.S. Commissioner Relationship Specialty Start Date End Date Julito Banuelos MD [address] [place] [address] PCP - General Family Practice 09/12/15 09/23/21 Vika Kevin APRN AZURE PRINCIPAL SOLUTION SPECIALIST [address] [place] [address] PCP - General Nurse Practitioner - Family 09/24/21 03/05/22 Vika Kevin APRN AZURE PRINCIPAL SOLUTION SPECIALIST [address] [place] [address] PCP - General Nurse Practitioner - Family 03/18/22 06/18/22 Vika Kevin, JAIME AZURE PRINCIPAL SOLUTION SPECIALIST [address] [place] [address] PCP - General Nurse Practitioner - Family 07/24/[address] [place] [address] Rapid Outsole Stitcher Dietitian, Registered 04/14/19 Susannah Blankenship, [facility] [address] [place] [address] 812 [place] [address] Pharmacist Pharmacist 08/08/19 04/15/21 Carolyn Huynh [facility] [address] [place] [address] Pharmacist Pharmacist 06/25/20 04/15/21 Vika Kevin, JAIME AZURE PRINCIPAL SOLUTION SPECIALIST [address] [place] [address] Assigned PCP 07/22/20 11/16/24 Marilyn Willard MD [address] [place] [address] [address] [place] [address] Assigned Surgical Provider 08/17/20 08/16/24 Carie Varela DO [address] [place] [address] Assigned Heart and Vascular Provider 08/17/20 01/19/21 Maylin May NP [address] [place] [address] Assigned Pediatric Specialist Provider 12/16/20 06/13/22 Marisa Rodrigues, RN Clinic Dentistry Professor 01/15/21 02/26/21 Vilma Long MD [address] [place] [address] Assigned Heart and Vascular Provider 01/20/21 07/20/21 [facility] [address] [place] [address]50[address] Pharmacist Pharmacist 06/04/21 01/15/22 Cole George LISW Lead Dentistry Professor 06/13/21 10/07/21 Fletcher Up Community Health Worker 06/13/21 09/12/21 Bautista Casey MD [address] [place] [address] Assigned Heart and Vascular Provider 07/21/21 01/16/23 Jasmyn Oliver CHW Community Health Worker 09/13/21 10/07/21 Yasmeen Pendleton [facility] [address] [place] [address] Assigned MTM Pharmacist 03/22/22 01/02/23 documented as of this encounter
--- OUTSIDE RECORDS SUMMARY | 2025-06-15 21:59 | XMS_ITS | Encounter Summary ---
Author Organization [place] Address [address] [facility] [place] [address] Care Team Providers Care Clinical Documentation Consultant Name Role Phone Julito Banuelos MD Primary Care Provider [phone] Julito Baneulos MD Unavailable Aleshia Henriquez RD Unavailable Unavailable Mary Kay Jones [facility] Unavailable Unavailable Susannah Blankenship [facility] Unavailable Carolyn Huynh [facility] Unavailable [phone] Vika Kevin APRN MAINTAINER PLANT Unavailable + Marilyn Willard MD Unavailable Carie Varela DO Unavailable [phone] Maylin May NP Unavailable [phone] Marisa Hernandez RN Unavailable Unavailable Vilma Long MD Unavailable Yasmeen Pendleton [facility] Unavailable Cole George Unavailable Fletcher Russell Unavailable Unavailable Bautista Casey MD Unavailable [phone] Jasmyn Oliver CHW Unavailable [phone] Vika Kevin APRN MAINTAINER PLANT Primary Care Prov ider Vika Kevin APRN [facility] Primary Care Prov ider Yasmeen Pendleton [facility] Unavailable + [phone] Vika Kevin APRN [facility] Primary Care Prov ider Encounter Details Date Type Department Care Team (Late st Contact Info) Description 03/28/2020 MyC Medical Advice [facility] [address] [address] Panda Sibley MD [address] [place], [place] [id number] Social History Tobacco Use Types Packs/Day Years [...] file Legal Sex Female 3:22 AM DIRECTOR EPIDEMIOLOGY Gender Identity Not on file Sexual Orientation [...] COVID-19 12/04/2020 12/04/2020 12/05/2020 6:04 PM DIRECTOR EPIDEMIOLOGY Assessment Noted Time PHQ-9 Depression Total Score: 8 07/18/20 19 12:06 PM CDT documented as of this encounter Care Teams Clinical Documentation Consultant Relationship Specialty Start Date End Date Julito Banuelos MD [address] [place] [address] PCP - General Family Practice 09/12/15 09/23/21 Vika Kevin APRN MAINTAINER PLANT [address] [place] [address] PCP - General Nurse Practitioner - Family 09/24/21 03/05/22 Vika Kevin APRN MAINTAINER PLANT [address] [place] [address] 565222 PCP - General Nurse Practitioner - Family 03/18/22 06/18/22 Vika Kevin APRN MAINTAINER PLANT [address] [place] [address] 087862 PCP - General Nurse Practitioner - Family 07/24/22 Julito Banuelos MD [address] [place] [address] 559452 Assigned PCP 02/17/16 07/21/[address] [place] [address] Organ Assembler Dietitian, Registered 04/14/19 Mary Kay Jones [facility] Pharmacist 08/01/19 04/20/20 Susannah Blankenship [facility] [address] [place] [address] [address] [place], [place] [address] Pharmacist Pharmacist 08/08/19 04/15/21 Carolyn Huynh [facility] [address] [place], [place] [address] Pharmacist Pharmacist 06/25/20 04/15/21 Vika Kevin APRN MAINTAINER PLANT [address] [place], [place] [address] Assigned PCP 07/22/20 11/16/24 Marilyn Willard MD [address] [facility] [address] [place], [place] [address] Assigned Surgical Provider 08/17/20 08/16/24 Carie Varela DO [address] [place] [address] Assigned Heart and Vascular Provider 08/17/20 01/19/21 Maylin May NP [address] [place], [place] [address] Assigned Pediatric Specialist Provider 12/16/20 06/13/22 Marisa Rodrigues, RN Clinic Offline Editor 01/15/21 02/26/21 Vilma Long MD [address] [place] [address] Assigned Heart and Vascular Provider 01/20/21 07/20/21 Yasmeen Pendleton [facility] [address] [place] [address] Pharmacist Pharmacist 06/04/21 01/15/22 Cole George LISW Lead Offline Editor 06/13/21 10/07/21 Fletcher Up Community Health Worker 06/13/21 09/12/21 Bautista Casey MD [address] [place] [address] Assigned Heart and Vascular Provider 07/21/21 01/16/23 Jasmyn Oliver CHW Community Health Worker 09/13/21 10/07/21 Yasmeen Pendleton [facility] [address] [place] [address] Assigned MTM Pharmacist 03/22/22 01/02/23 documented as of this encounter
--- OUTSIDE RECORDS SUMMARY | 2025-06-15 21:59 | XMS_ITS | Patient Health Record ---
Author Organization [facility] Address [address] [place] [address] Care Team Providers Care Electric Meter Reader Name Role Phone Vin Julito Primary Care Provider SAMMIE Go Unavailable [phone] Vika Kevin Unavailable Unavailable Reason For Referral No Information Medications Medication SIG (Take, Route, Frequency, Duration) Notes Start Date End Date Status Furosemide 20 MG Tablet Oral; Duration: 90 Active Metoprolol Succinate ER 100 MG Tablet Extended Release 24 Hour Oral; Duration: 90 Active Cetirizine HCl 10 MG Tablet 1 tablet Ora lly Once a day; Duration: 30 day(s) 07/10/2020 Active Fluticasone Propionate 50 MCG/ACT Suspension Nasal; Duration: 30 Ac tive Pantoprazole Sodium 40 MG Tablet Delayed Release Oral; Duration: 90 Active lamoTRIgine 150 MG Tablet Oral; Duration: 90 Active Isosorbide Mononitrate ER 60 MG Tablet Extended Release 24 Hour Oral; Duration: 30 Active Montelukast Sodium 10 MG Tablet Oral; Duration: 90 Active Gabapentin 100 MG Capsule Oral; Duration: 90 Active Atorvastatin Calcium 40 MG Tablet Oral; Duration: 90 Active Memantine HCl 5 MG Tablet 1 tablet Orall y Once a day; Duration: 30 day(s) 07/10/2020 Active Memantine HCl 5 MG Tablet Oral; Duration: 90 Active Levothyroxine Sodium 88 MCG Tablet Oral; Duration: 90 Active Nystatin 726116 UNIT/ML Suspension Mouth/Throat; Duration: 10 Active Sertraline HCl 100 MG Tablet Oral; Duration: 90 Active Nystatin 265439 UNIT/ML Suspension 4 ml Mouth/Throat Four times a day; Duration: 30 day(s) 07/10/2020 Active Losartan Potassium 25 MG Tablet Oral; Duration: 90 Active Fluticasone Propionate 50 MCG/ACT Suspension 1 spray in each nostril Nasally Once a day; Duration: 30 day(s) 07/10/2020 Active Social History Tobacco Use: Social History Observation Description Date Details (start date - stop date) Never Smoker NA - NA Social History Alcohol Use: Social Info Question Answer Notes Recreational drugs Recreational Drug Use: No Alcohol Screen Did you have a drink containing alcohol in the past year? Yes How often did you have a drink containing alcohol in the past year? 2 to 3 times a week (3 points) How many drinks did you have on a typical day when you were drinking in the past year? 1 or 2 drinks (0 point) How often did you have 6 or more drinks on one occasion in the past year? Never (0 point) Points 3 Interpretation Positive Tobacco Use: Social Info Question Answer Notes Tobacco use/smoking Are you a nonsmoker Problems Problem Type SNOMED Code ICD Code Onset Dates Problem Status W/U Status Risk Notes Problem Throat pain (R07.0) Active confirmed Plan Of Treatment No Information Insurance Providers Payer Name Payer Address Payer Phone Subscriber Number Group Number Insured Name Patient Relationship to Insured Coverage Start Date Coverage End Date [employer] [place]ARE [address] [address] [place], [place] [id number] Pat Emmanuel Self - patient is the insured Medical (General) History Medical History History ICD Code Asthma Heart HTN Easy bleeding Diabetes Surgical History Surgery Date(Month/Year) Hysterectomy
--- OUTSIDE RECORDS SUMMARY | 2025-06-15 21:59 | XMS_ITS | Encounter Summary ---
Author Organization [place] Address [address] [place] [address] Care Team Providers Care Corporate Learning Consultant Name Role Phone Andrew Lu MD Primary Care Provider [phone] Niko Resendiz MD Primary Care Provider Carlie Mac MD Primary Care Provide r Angella Mendieta MD Primary Care Provider Julito Banuelos MD Primary Care Provider [phone] Julito Banuelos MD Unavailable Julito Banuelos MD Unavailable Aleshia Henriquez RD Unavailable Unavailable Mary Kay Jones [facility] Unavailable Unavailable Susnanah Blankenship [facility] Unavailable [phone] Carolyn Huynh [facility] Unavailable [phone] Vika Kevin APRN COFFEE PLANTATION WORKER Unavailable + Marilyn Willard MD Unavailable [phone] Carie Varela DO Unavailable [phone] Maylin May NP Unavailable [phone] Marisa Rodrigues RN Unavailable Unavailable Vilma Long MD Unavailable + [phone] Yasmeen Pendleton [facility] Unavailable [phone] Cole George Unavailable Fletcher Russell Unavailable Unavailable Bautista Casey MD Unavailable AnnyJasmyn tracey [facility] Unavailable [phone] Vika Kevin APRN [facility] Primary Care Prov ider Vika Kevin APRN [facility] Primary Care Prov ider Yasmeen Pendleton [facility] Unavailable [phone] [facility] Primary Care Prov ider Encounter Details Date Type Department Care Team (Late st Contact Info) Description 06/28/2013 MyC Medical Advice [address] [address] Denis Rojas MD [address] [place] [phone] Social History Tobacco Use Types Packs/Day Years Used Date Smoking Tobacco: Former Cigarettes 0.3 15 0 10/26/1961 - 10/26/1976 Smokeless Tobacco: Never Alcohol Use Standard Drinks/Week Comments Yes 0 (1 standard drink = 0.6 oz pur e alcohol) 1-2 glasses of wine weekly Comments No Sex and Gender Information Value Date Recorded Sex Assigned at Not on file Legal Sex Female 3:22 AM ORDER TAKER Gender Identity Not on file Sexual Orientation [...] Out COVID-19 12/04/2020 12/04/2020 12/05/2020 6:04 PM ORDER TAKER documented as of this encounter Care Teams Corporate Learning Consultant Relationship Specialty Start Date End Date Andrew Lu MD XXX RETIRED XXX [address] [place] [phone] PCP - General 12/10/01 01/10/14 Niko Resendiz MD [address] [place] [address] PCP - General Internal Medicine 01/11/14 01/29/14 Carlie Mac MD [address] [place] [address] PCP - General Pediatrics 01/30/14 07/17/15 Angella Mendieta MD [address] [place] [address] PCP - General Family Practice 07/18/15 09/11/15 Julito Banuelos MD [address] [place] [address] PCP - General Family Practice 09/12/15 09/23/21 Julito Banuelos MD [address] [place] [address]87 PCP - Assigned PCP 02/17/16 12/28/18 Vkia Kevin APRN COFFEE PLANTATION WORKER [address] [place] [address]19 PCP - General Nurse Practitioner - Family 09/24/21 03/05/22 Vika Kevin APRN COFFEE PLANTATION WORKER [address] [place] [address] PCP - General Nurse Practitioner - Family 03/18/22 06/18/22 Vika Kevin APRN COFFEE PLANTATION WORKER [address] [place] [address] [id number] PCP - General Nurse Practitioner - Family 07/24/22 Julito Banuelos MD [address] [place] [address] 188862 Assigned PCP 02/17/16 07/21/[address] [place] [address] Instrument Maker And Repairer Dietitian, Registered 04/14/19 Mary Kay Jones, [facility] Pharmacist 08/01/19 04/20/20 Susannah Blankenship, [facility] [address] [facility] [address] [place], [place] [address] Pharmacist Pharmacist 08/08/19 04/15/21 Carolyn Huynh, [facility] [address] [place], [place] [address] Pharmacist Pharmacist 06/25/20 04/15/21 Vika Kevin, JAIME COFFEE PLANTATION WORKER [address] [place] [address] 922282 Assigned PCP 07/22/20 11/16/24 Marilyn Willard MD [address] [facility] [address] [place], [place] [address] Assigned Surgical Provider 08/17/20 08/16/24 Carie Varela DO [address] [place] [address] Assigned Heart and Vascular Provider 08/17/20 01/19/21 Maylin May NP [address] [facility] [place] [address] Assigned Pediatric Specialist Provider 12/16/20 06/13/22 Marisa Rodrigues, RN Clinic Cloth Winding Supervisor 01/15/21 02/26/21 Vilma Long MD [address] [place] [address] Assigned Heart and Vascular Provider 01/20/21 07/20/21 [facility] [address] [place] [address] Pharmacist Pharmacist 06/04/21 01/15/22 Cole George LISW Lead Cloth Winding Supervisor 06/13/21 10/07/21 Fletcher Up Community Health Worker 06/13/21 09/12/21 Bautista Casey MD [address] [place] [address] Assigned Heart and Vascular Provider 07/21/21 01/16/23 Jasmyn Oliver CHW Community Health Worker 09/13/21 10/07/21 [facility] [address] [place] [address] Assigned MTM Pharmacist 03/22/22 01/02/23 documented as of this encounter
--- OUTSIDE RECORDS SUMMARY | 2025-06-15 21:59 | XMS_ITS | Encounter Summary ---
Author Organization [place] Address [address] [facility] [place] [address] Care Team Providers Care Cafeteria Food Server Name Role Phone Julito Banuelos MD Primary Care Provider [phone] Julito Banuelos MD Unavailable Aleshia Henriquez RD Unavailable Unavailable Mary Kay Jones [facility] Unavailable Unavailable Susannah Blankenship [facility] Unavailable [phone] Carolyn Huynh [facility] Unavailable [phone] Vika Kevin APRN LOGISTICAL ENGINEER Unavailable + Marilyn Willard MD Unavailable Carie Varela DO Unavailable [phone] Maylin May NP Unavailable [phone] Marisa Hernandez RN Unavailable Unavailable Vilma Long MD Unavailable Yasmeen Pendleton [facility] Unavailable Cole George Unavailable Fletcher Russell Unavailable Unavailable Bautista Casey MD Unavailable [phone] Jasmyn Oliver CHW Unavailable [phone] Vika Kevin APRN LOGISTICAL ENGINEER Primary Care Prov ider Vika Kevin APRN [facility] Primary Care Prov ider Yasmeen Pendleton [facility] Unavailable [phone] Vika Kevin APRN [facility] Primary Care Prov ider Encounter Details Date Type Department Care Team (Late st Contact Info) Description 02/13/2020 MyC Medical Advice [address] [place] [address] Mary Kay Jones, [facility] Social History Tobacco Use Types Packs/Day Years [...] file Legal Sex Female 3:22 AM MANAGER ORACLE Gender Identity Not on file Sexual Orientation [...] COVID-19 12/04/2020 12/04/2020 12/05/2020 6:04 PM MANAGER ORACLE Assessment Noted Time PHQ-9 Depression Total Score: 8 07/18/20 19 12:06 PM CDT documented as of this encounter Care Teams Cafeteria Food Server Relationship Specialty [place] [address] [place] [address] PCP - General Family Practice 09/12/15 09/23/21 Vika Kevin APRN LOGISTICAL ENGINEER [address] [place] [address] 004992 PCP - General Nurse Practitioner - Family 09/24/21 03/05/22 Vika Kevin APRN LOGISTICAL ENGINEER [address] [place] [address] 415282 PCP - General Nurse Practitioner - Family 03/18/22 06/18/22 Vika Kevin APRN LOGISTICAL ENGINEER [address] [place] [address] PCP - General Nurse Practitioner - Family 07/24/22 Julito Banuelos MD [address] [place] [address] 879222 Assigned PCP 02/17/16 07/21/[address] [place] [address] Civil Manager Dietitian, Registered 04/14/19 Mary Kay Jones [facility] Pharmacist 08/01/19 04/20/20 Susannah Blankenship [facility] [address] [place] [address] [address] [place], [place] [address] Pharmacist Pharmacist 08/08/19 04/15/21 Carolyn Huynh [facility] [address] [place] [address] Pharmacist Pharmacist 06/25/20 04/15/21 Vika Kevin APRN LOGISTICAL ENGINEER [address] [place] [address] Assigned PCP 07/22/20 11/16/24 Marilyn Willard MD [address] [place] [address] [address] [place] [address] Assigned Surgical Provider 08/17/20 08/16/24 Carie Varela DO [address] [place] [address] Assigned Heart and Vascular Provider 08/17/20 01/19/21 Maylin May NP [address] [place] [address] Assigned Pediatric Specialist Provider 12/16/20 06/13/22 Marisa Rodrigues, RN Clinic Knockout Machine Operator 01/15/21 02/26/21 Vilma Long MD [address] [place] [address] Assigned Heart and Vascular Provider 01/20/21 07/20/21 Yasmeen Pendleton [facility] [address] [place] [address] Pharmacist Pharmacist 06/04/21 01/15/22 Cole George LISW Lead Knockout Machine Operator 06/13/21 10/07/21 Fletcher Up Community Health Worker 06/13/21 09/12/21 Bautista Casey MD [address] [place] [address] Assigned Heart and Vascular Provider 07/21/21 01/16/23 Jasmyn Oliver CHW Community Health Worker 09/13/21 10/07/21 Yasmeen Pendleton, [facility] [address] [place] [address] Assigned MTM Pharmacist 03/22/22 01/02/23 documented as of this encounter
--- OUTSIDE RECORDS SUMMARY | 2025-06-15 21:59 | XMS_ITS | Encounter Summary ---
Author Organization [place] Address [address] [place] [address] Care Team Providers Care Egg Breaker Name Role Phone Carlie Mac MD Primary Care Provide r Angella Mendieta MD Primary Care Provider Julito Banuelos MD Primary Care Provider Julito Banuelos MD Unavailable Julito Banuelos MD Unavailable Aleshia Henriquez RD Unavailable Unavailable Mary Kay Jones [facility] Unavailable Unavailable Susannah Blankenship [facility] Unavailable Carolyn Huynh [facility] Unavailable [phone] Vika Kevin APRN TRANSPORTATION SPECIALIST Unavailable + Marilyn Willard MD Unavailable Carie Varela DO Unavailable Maylin May NP Unavailable [phone] Marisa Hernandez RN Unavailable Unavailable Vilma Lnog MD Unavailable Yasmeen Pendleton [facility] Unavailable Cole George Unavailable Fletcher Russell Unavailable Unavailable IpBautista MD Unavailable Jasmyn Oliver CH Unavailable [phone] Vika Kevin APRN [facility] Primary Care Prov ider Vika Kevin APRN [facility] Primary Care Prov ider Yasmeen Pendleton [facility] Unavailable Vika Kevin APRN [facility] Primary Care Prov ider Encounter Details Date Type Department Care Team (Late st Contact Info) Description 10/12/2014 MyC Medical Advice [address] [address] Sara Robison Y, [employer] ATTACHER Social History Tobacco Use Types Packs/Day Years Used Date Smoking Tobacco: Former Cigarettes 0.3 15 0 10/26/1961 - 10/26/1976 Smokeless Tobacco: Never Alcohol Use Standard Drinks/Week Comments Yes 0 (1 standard drink = 0.6 oz pur e alcohol) 1-2 glasses of wine weekly Comments No Sex and Gender Information Value Date Recorded Sex Assigned at Not on file Legal Sex Female 3:22 AM BLUEPRINT ASSEMBLER Gender Identity Not on file Sexual [...] Out COVID-19 12/04/2020 12/04/2020 12/05/2020 6:04 PM BLUEPRINT ASSEMBLER documented as of this encounter Care Teams Egg Breaker Relationship Specialty Start Date End Date Carlie Mac MD [address] [place] [address] PCP - General Pediatrics 01/30/14 07/17/15 Angella Mendieta MD [address] [place] [address] PCP - General Family Practice 07/18/15 09/11/15 Julito Banuelos MD [address] [place] [address] PCP - General Family Practice 09/12/15 09/23/21 Julito Banuelos MD [address] [place] [address] PCP - Assigned PCP 02/17/16 12/28/18 Vika Kevin APRN TRANSPORTATION SPECIALIST [address] [place] [address]270 PCP - General Nurse Practitioner - Family 09/24/21 03/05/22 Vika Kevin APRN TRANSPORTATION SPECIALIST [address] [place] [address] PCP - General Nurse Practitioner - Family 03/18/22 06/18/22 Vika Kevin APRN TRANSPORTATION SPECIALIST [address] [place] [address] PCP - General Nurse Practitioner - Family 07/24/22 Julito Banuelos MD [address] [place] [address] Assigned PCP 02/17/16 07/21/[address] [place] [address] Wallpaper Printer Dietitian, Registered 04/14/19 Mary Kay Jones, [facility] Pharmacist 08/01/19 04/20/20 Susannah Blankenship, [facility] [address] [facility] [address] [place] [address] Pharmacist Pharmacist 08/08/19 04/15/21 Carolyn Huynh, [facility] [address] [place], [place] [address] Pharmacist Pharmacist 06/25/20 04/15/21 Vika Kevin, SWORD SWALLOWER TRANSPORTATION SPECIALIST [address] [place] [address] 670382 Assigned PCP 07/22/20 11/16/24 Marilyn Willard MD [address] [facility] [address] [place], [place] [address] Assigned Surgical Provider 08/17/20 08/16/24 Carie Varela DO [address] [place] [address] Assigned Heart and Vascular Provider 08/17/20 01/19/21 Maylin May NP [address] [place] [address] Assigned Pediatric Specialist Provider 12/16/20 06/13/22 Marisa Rodrigues, RN Clinic Youth Officer 01/15/21 02/26/21 Vilma Long MD [address] [place] [address] Assigned Heart and Vascular Provider 01/20/21 07/20/21 Yasmeen Pendleton [facility] [address] [place] [address] Pharmacist Pharmacist 06/04/21 01/15/22 Cole George LISW Lead Youth Officer 06/13/21 10/07/21 Fletcher Up Community Health Worker 06/13/21 09/12/21 Bautista Casey MD [address] [place] [address] Assigned Heart and Vascular Provider 07/21/21 01/16/23 Jasmyn Oliver CHW Community Health Worker 09/13/21 10/07/21 Yasmeen Pendleton [facility] [address] [place] [address] Assigned MTM Pharmacist 03/22/22 01/02/23 documented as of this encounter
--- OUTSIDE RECORDS SUMMARY | 2025-06-15 21:59 | XMS_ITS | Encounter Summary ---
Author Organization [place] Address [address] [facility] [place] [address] Care Team Providers Care Cyber Defense Forensics Analyst Name Role Phone Andrew Lu MD Primary Care Provider [phone] Niko Resendiz MD Primary Care Provider Carlie Mac MD Primary Care Provide r Angella Mendieta MD Primary Care Provider Julito Banuelos MD Primary Care Provider [phone] Julito Banuelos MD Unavailable Julito Banuelos MD Unavailable Aleshia Henriquez RD Unavailable Unavailable Mary Kay Jones [facility] Unavailable Unavailable Susannah Blankenship [facility] Unavailable [phone] Carolyn Huynh [facility] Unavailable [phone] Vika Kevin APRN LIEUTENANT/DEPUTY Unavailable + Marilyn Willard MD Unavailable [phone] Carie Varela DO Unavailable [phone] Maylin May NP Unavailable [phone] Marisa Rodrigues RN Unavailable Unavailable Vilma Long MD Unavailable + [phone] Yasmeen Pendleton [facility] Unavailable [phone] Cole George Unavailable Fletcher Russell Unavailable Unavailable Bautista Casey MD Unavailable [phone] DemetriusJasmyn wright [facility] Unavailable [phone] Vika Kevin APRN [facility] Primary Care Prov ider Vika Kevin APRN [facility] Primary Care Prov ider Yasmeen Pendleton [facility] Unavailable [phone] Vika [facility]. 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 DISPATCHER SERVICE Gender Identity Not on file Sexual Orientation [...] COVID-19 12/04/2020 12/04/2020 12/05/2020 6:04 PM CHIEF DISPATCHER SERVICE documented as of this encounter Care Teams Cyber Defense Forensics Analyst Relationship Specialty Start Date End Date Andrew Lu MD XXX RETIRED XXX [address] [place] [phone] PCP - General 12/10/01 01/10/14 Niko Resendiz MD [address] [place] [address] PCP - General Internal Medicine 01/11/14 01/29/14 Carlie Mac MD [address] [place] [address] PCP - General Pediatrics 01/30/14 07/17/15 Angella Mendieta MD [address] [place] [address] PCP - General Family Practice 07/18/15 09/11/15 Julito Banuelos MD [address] [place] [address] PCP - General Family Practice 09/12/15 09/23/21 Julito Banuelos MD [address] [place] [address] PCP - Assigned PCP 02/17/16 12/28/18 Vika Kevin APRN LIEUTENANT/DEPUTY [address] [place] [address] PCP - General Nurse Practitioner - Family 09/24/21 03/05/22 Vika Kevin APRN LIEUTENANT/DEPUTY [address] [place] [address] PCP - General Nurse Practitioner - Family 03/18/22 06/18/22 Vika Kevin, JAIME LIEUTENANT/DEPUTY [address] [place] [address] 343772 PCP - General Nurse Practitioner - Family 07/24/22 Julito Banuelos MD [address] [place] [address] 318202 Assigned PCP 02/17/16 07/21/[address] [place] [address] Matcher Operator Dietitian, Registered 04/14/19 Mary Kay Jones, [facility] Pharmacist 08/01/19 04/20/20 Susannah Blankenship, [facility] [address] [facility] [address] [place], [place] [address] Pharmacist Pharmacist 08/08/19 04/15/21 Carolyn Huynh, [facility] [address] [place], [place] [address] Pharmacist Pharmacist 06/25/20 04/15/21 Vika Kevin, JAIME LIEUTENANT/DEPUTY [address] [place] [address] 255652 Assigned PCP 07/22/20 11/16/24 Mariyln Willard MD [address] [facility] [address] [place], [place] [address] Assigned Surgical Provider 08/17/20 08/16/24 Carie Varela DO [address] [place] [address] Assigned Heart and Vascular Provider 08/17/20 01/19/21 Maylin May NP [address] [place] [address] Assigned Pediatric Specialist Provider 12/16/20 06/13/22 Marisa Rodrigues, RN Clinic Java Software Architect 01/15/21 02/26/21 Vilma Long MD [address] [place] [address] Assigned Heart and Vascular Provider 01/20/21 07/20/21 Yasmeen Pendleton [facility] [address] [place] [address] Pharmacist Pharmacist 06/04/21 01/15/22 Cole George LISW Lead Java Software Architect 06/13/21 10/07/21 Fletcher Up Community Health Worker 06/13/21 09/12/21 Bautista Casey MD [address] [place] [address] Assigned Heart and Vascular Provider 07/21/21 01/16/23 Jasmyn Oliver CHW Community Health Worker 09/13/21 10/07/21 Yasmeen Pendleton [facility] [address] [place] [address] Assigned MTM Pharmacist 03/22/22 01/02/23 documented as of this encounter
--- OUTSIDE RECORDS SUMMARY | 2025-06-15 21:59 | XMS_ITS | Encounter Summary ---
Author Organization [place] Address [address] [facility] [place] [address] Care Team Providers Care Toddler Caregiver Name Role Phone Andrew Lu MD Primary Care Provider [phone] Niko Resendiz MD Primary Care Provider Carlie Mac MD Primary Care Provide r Angella Mendieta MD Primary Care Provider Julito Banuelos MD Primary Care Provider [phone] Julito Banuelos MD Unavailable Julito Banuelos MD Unavailable Aleshia Henriquez RD Unavailable Unavailable Mary Kay Jones [facility] Unavailable Unavailable Susannah Blankenship [facility] Unavailable [phone] Carolyn Huynh [facility] Unavailable [phone] Vika Kevin APRN HEAD TEACHER Unavailable + Marilyn Willard MD Unavailable [phone] Carie Varela DO Unavailable [phone] Maylin May NP Unavailable [phone] Marisa Rodrigues RN Unavailable Unavailable Vilma Long MD Unavailable + [phone] Yasmeen Pendleton [facility] Unavailable [phone] Cole George Unavailable Fletcher Russell Unavailable Unavailable Bautista Casey MD Unavailable [phone] TatyanaJasmyn anand [facility] Unavailable +[phone] Vika Kevin APRN [facility] Primary Care Prov ider Vika Kevin APRN [facility] Primary Care Prov ider Yasmeen Pendleton [facility] Unavailable [phone] Vika Kevin APRN [facility] Primary Care Prov ider Encounter Details Date Type Department Care Team (Late st Contact Info) Description 05/19/[address] [phone] Jolene Martin Social History Tobacco Use Types [...] on file Legal Sex Female 3:22 AM APPARATUS CLEANER Gender Identity Not on file Sexual Orientation Not on file documented as of this encounter Plan of Treatment Not on file documented as of this encounter Visit Diagnoses Not on filedocumented in this encounter Additional Health Concerns Infection Onset Date Last Indicated Resolved Time Rule Out COVID-19 07/25/2020 07/25/2020 07/26/2020 3:02 PM CDT Rule Out COVID-19 12/04/2020 12/04/2020 12/05/2020 6:04 PM APPARATUS CLEANER documented as of this encounter Care Teams Toddler Caregiver Relationship Specialty Start Date End Date Andrew Lu MD XXX RETIRED XXX [address] [place] [phone] PCP - General 12/10/01 01/10/14 Niko Resendiz MD [address] [address] PCP - General Internal Medicine 01/11/14 01/29/14 Carlie Mac MD [address] [place] [address] PCP - General Pediatrics 01/30/14 07/17/15 Angella Mendieta MD [address] [place] [address] PCP - General Family Practice 07/18/15 09/11/15 Julito Banuelos MD [address] [place] [address] PCP - General Family Practice 09/12/15 09/23/21 Julito Banuelos MD [address] [place] [address] PCP - Assigned PCP 02/17/16 12/28/18 Vika Kevin APRN HEAD TEACHER [address] [place] [address] 25070 PCP - General Nurse Practitioner - Family 09/24/21 03/05/22 Vika Kevin APRN HEAD TEACHER [address] [place] [address] PCP - General Nurse Practitioner - Family 03/18/22 06/18/22 Vika Kevin APRN HEAD TEACHER [address] [place] [address] 159472 PCP - General Nurse Practitioner - Family 07/24/22 Julito Banuelos MD [address] [place] [address] 546542 Assigned PCP 02/17/16 07/21/20 Aleshia Henriquez, DAVE [address] [place] [address] Medical Record Retrieval Specialist Dietitian, Registered 04/14/19 Mary Kay Jones, [facility] Pharmacist 08/01/19 04/20/20 Susannah Blankenship, [facility] [address] [place] [address] 812 [place], [place] [address] Pharmacist Pharmacist 08/08/19 04/15/21 [facility] [address] [place], [place] [address] Pharmacist Pharmacist 06/25/20 04/15/21 Vika Kevin APRN HEAD TEACHER [address] [place] [address] 991692 Assigned PCP 07/22/20 11/16/24 Marilyn Willard MD 420 [facility] [address] [place], [place] 896395 Assigned Surgical Provider 08/17/20 08/16/24 Carie Varela DO [address] [place], [place] [address] Assigned Heart and Vascular Provider 08/17/20 01/19/21 Myalin May, JENNY [address] [place] [address] Assigned Pediatric Specialist Provider 12/16/20 06/13/22 Marisa Rodrigues, RN Clinic Ticket Sorter 01/15/21 02/26/21 Vilma Long MD [address] [place] [address] Assigned Heart and Vascular Provider 01/20/21 07/20/21 Yasmeen Pendleton [facility] [address] [place] [address] Pharmacist Pharmacist 06/04/21 01/15/22 Cole George LISW Lead Ticket Sorter 06/13/21 10/07/21 Fletcher Up Community Health Worker 06/13/21 09/12/21 Bautista Casey MD [address] [place] [address] Assigned Heart and Vascular Provider 07/21/21 01/16/23 Jasmyn Oliver CHW Community Health Worker 09/13/21 10/07/21 Yasmeen Pendleton [facility] [address] [place] [address] 145285 Assigned MTM Pharmacist 03/22/22 01/02/23 documented as of this encounter
--- OUTSIDE RECORDS SUMMARY | 2025-06-15 21:59 | XMS_ITS | Encounter Summary ---
Author Organization [place] Address [address] [facility] [place] [address] Care Team Providers Care Heater Planer Operator Name Role Phone Julito Banuelos MD Primary Care Provider [phone] Julito Banuelos MD Unavailable Aleshia Henriquez RD Unavailable Unavailable Mary Kay Jones [facility] Unavailable Unavailable Susannah Blankenship [facility] Unavailable Carolyn Huynh [facility] Unavailable [phone] Vika Kevin APRN PUTTY MIXER AND APPLIER Unavailable + Marilyn Willard MD Unavailable Carie Varela DO Unavailable [phone] Maylin May NP Unavailable [phone] Marisa Hernandez RN Unavailable Unavailable Vilma Long MD Unavailable Yasmeen Pendleton [facility] Unavailable Cole George Unavailable Fletcher Russell Unavailable Unavailable Bautista Casey MD Unavailable [phone] Jasmyn Oliver CHW Unavailable [phone] Vika Kevin APRN PUTTY MIXER AND APPLIER Primary Care Prov ider Vika Kevin APRN [facility] Primary Care Prov ider Yasmeen Pendleton [facility] Unavailable + [phone] Vika Kevin APRN [facility] Primary Care Prov ider Reason for Visit * Reason Comments Medication Refill Encounter Details Date Type Department Care Team (Late st Contact Info) Description 04/20/[address] [phone] [place] [address] [place] [address] [id number] Medication Refill Social History Tobacco Use Types [...] on file Legal Sex Female 3:22 AM GARAGE HAND Gender Identity Not on file Sexual [...] Miscellaneous Notes * Telephone Encounter - Panda rBadshaw RN - 04/20/2020 5:19 PM CDT Refill available at pharmacy Panda Bradshaw RN [facility] Triage documented in this encounter Plan of Treatment Not on file documented as of this encounter Visit Diagnoses Diagnosis Hypothyroidism, unspecified type documented in this encounter Additional Health Concerns Infection Onset Date Last Indicated Resolved Time Rule Out COVID-19 07/25/2020 07/25/2020 07/26/2020 3:02 PM CDT Rule Out COVID-19 12/04/2020 12/04/2020 12/05/2020 6:04 PM GARAGE HAND Assessment Noted Time PHQ-9 Depression Total Score: 8 07/18/20 19 12:06 PM CDT documented as of this encounter Care Teams Heater Planer Operator Relationship Specialty Start Date End Date Julito Banuelos MD [address] [place] [address] PCP - General Family Practice 09/12/15 09/23/21 Vika Kevin APRN PUTTY MIXER AND APPLIER [address] [place] [address] PCP - General Nurse Practitioner - Family 09/24/21 03/05/22 Vika Kevin APRN PUTTY MIXER AND APPLIER [address] [place] [address] PCP - General Nurse Practitioner - Family 03/18/22 06/18/22 Vika Kevin APRN PUTTY MIXER AND APPLIER [address] [place] [address] PCP - General Nurse Practitioner - Family 07/24/22 Julito Banuelos MD [address] [place] [address] Assigned PCP 02/17/16 07/21/[address] [place] [address] Waiter/Waitress Formal Dietitian, Registered 04/14/19 Mary Kay Jones [facility] Pharmacist 08/01/19 04/20/20 Susannah Blankenship, [facility] [address] [facility] 812 [place], [place] [address] Pharmacist Pharmacist 08/08/19 04/15/21 Carolyn Huynh [facility] [address] [place] [address] Pharmacist Pharmacist 06/25/20 04/15/21 Vika Kevin, MEDICARE NURSE PUTTY MIXER AND APPLIER [address] [place] [address] 091182 Assigned PCP 07/22/20 11/16/24 Marilyn Willard MD 420 [facility] 394 [place], [place] 785055 Assigned Surgical Provider 08/17/20 08/16/24 Carie Varela DO [address] [place] [address] Assigned Heart and Vascular Provider 08/17/20 01/19/21 Maylin May NP [address] [place], [place] [id number] Assigned Pediatric Specialist Provider 12/16/20 06/13/22 Marisa Rodrigues, RN Clinic Link Trainer Maintenance Man 01/15/21 02/26/21 Vilma Long MD [address] [place] [address] Assigned Heart and Vascular Provider 01/20/21 07/20/21 Yasmeen Pendleton [facility] [address] [place] [address] Pharmacist Pharmacist 06/04/21 01/15/22 Cole George LISW Lead Link Trainer Maintenance Man 06/13/21 10/07/21 Fletcher Up Community Health Worker 06/13/21 09/12/21 Bautista Casey MD [address] [place] [address] Assigned Heart and Vascular Provider 07/21/21 01/16/23 Jasmyn Oliver CHW Community Health Worker 09/13/21 10/07/21 Yasmeen Pendleton [facility] [address] [place] [address] Assigned MTM Pharmacist 03/22/22 01/02/23 documented as of this encounter
--- OUTSIDE RECORDS SUMMARY | 2025-06-15 21:59 | XMS_ITS | Encounter Summary ---
Author Organization [place] Address [address] [facility] [place] [address] Care Team Providers Care Safe And Vault Installer Name Role Phone Andrew Lu MD Primary Care Provider [phone] Niko Resendiz MD Primary Care Provider Carlie Mac MD Primary Care Provide r Angella Mendieta MD Primary Care Provider Julito Banuelos MD Primary Care Provider [phone] Julito Banuelos MD Unavailable Julito Banuelos MD Unavailable Aleshia Henriquez RD Unavailable Unavailable Mary Kay Jones [facility] Unavailable Unavailable Susannah Blankenship [facility] Unavailable [phone] Carolyn Huynh [facility] Unavailable [phone] Vika Kevin APRN SCHOOL BASED THERAPIST Unavailable + Marilyn Willard MD Unavailable [phone] Carie Varela DO Unavailable [phone] Maylin May NP Unavailable [phone] Marisa Rodrigues RN Unavailable Unavailable Vilma Long MD Unavailable + [phone] Yasmeen Pendleton [facility] Unavailable [phone] Cole George Unavailable Fletcher Russell Unavailable Unavailable Bautista Casey MD Unavailable Jasmyn Oliver [facility] Unavailable [phone] Vika Kevin CREDIT INVESTIGATOR [facility] Primary Care Prov ider Vika Kevin APRN [facility] Primary Care Prov ider Yasmeen Pendleton [facility] Unavailable Vika Kevin [facility] Primary Care Prov ider Encounter Details Date Type Department Care Team (Late st Contact Info) Description 09/22/2010 MyC Medical Advice [address] [phone] Andrew Lu MD XXX RETIRED XXX [address] [place] [phone] Social History Tobacco Use Types Packs/Day Years Used Date Smoking Tobacco: Former Cigarettes 0.3 15 0 10/26/1961 - 10/26/1976 Alcohol Use Standard Drinks/Week Comments Yes 0 (1 standard drink = 0.6 oz pur e alcohol) 1 wine 2x qweek Comments No Sex and Gender Information Value Date Recorded Sex Assigned at Not on file Legal Sex Female 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 AND GROUNDS SUPERVISOR * Telephone Encounter - Vika [place] - 09/30/2010 3:17 PM CST The sleep study has not be read by DR Suggs yet. They will fax it over one it has been read. AND GROUNDS SUPERVISOR * Telephone Encounter - CoronaBo - 09/23/2010 10:28 AM CST Please get the sleep study results scanned int o epic. AND GROUNDS SUPERVISOR documented in this encounter Plan of Treatment Not on file documented as of this encounter Visit Diagnoses Not on filedocumented in this encounter Additional Health Concerns Infection Onset Date Last Indicated Resolved Time Rule Out COVID-19 07/25/2020 07/25/2020 07/26/2020 3:02 PM CDT Rule Out COVID-19 12/04/2020 12/04/2020 12/05/2020 6:04 PM TURF AND GROUNDS SUPERVISOR documented as of this encounter Care Teams Safe And Vault Installer Relationship Specialty Start Date End Date Andrew Lu MD XXX RETIRED XXX [address] [place] [phone] PCP - General 12/10/01 01/10/14 Niko Resendiz MD [address] [address] PCP - General Internal Medicine 01/11/14 01/29/14 Carlie Mac MD 8675 [place] [address] PCP - General Pediatrics 01/30/14 07/17/15 Angella Mendieta MD [address] [place] [address] PCP - General Family Practice 07/18/15 09/11/15 Julito Banuelos MD [address] [place] [address] PCP - General Family Practice 09/12/15 09/23/21 Julito Banuelos MD [address] [place] [address] PCP - Assigned PCP 02/17/16 12/28/18 Vika Kevin APRN SCHOOL BASED THERAPIST [address] [place] [address] PCP - General Nurse Practitioner - Family 09/24/21 03/05/22 Vika Kevin APRN SCHOOL BASED THERAPIST [address] [place] [address] PCP - General Nurse Practitioner - Family 03/18/22 06/18/22 Vika Kevin APRN SCHOOL BASED THERAPIST [address] [place] [address] PCP - General Nurse Practitioner - Family 07/24/22 Julito Banuelos MD [address] [place] [address] Assigned PCP 02/17/16 07/21/[address] [place] [address] Traveler Changer Dietitian, Registered 04/14/19 Mary Kay Jones [facility] Pharmacist 08/01/19 04/20/20 Susannah Blankenship [facility] [address] [place] [address] 812 [place] [address] Pharmacist Pharmacist 08/08/19 04/15/21 Carolyn Huynh [facility] [address] [place] [address] Pharmacist Pharmacist 06/25/20 04/15/21 Vika Kevin APRN SCHOOL BASED THERAPIST [address] [place], [place] 6[address]462 Assigned PCP 07/22/20 11/16/24 Marilyn Willard MD 420 [facility] 394 [place], [place] [address] Assigned Surgical Provider 08/17/20 08/16/24 Carie Varela DO [address] [place] [address] Assigned Heart and Vascular Provider 08/17/20 01/19/21 Maylin May NP [address] [place], [place] [address] Assigned Pediatric Specialist Provider 12/16/20 06/13/22 Marisa Rodrigues RN Clinic Metal Fitter 01/15/21 02/26/21 Vilma Long MD [address] [place] [address] Assigned Heart and Vascular Provider 01/20/21 07/20/21 Yasmeen Pendleton [facility] [address] [place] [address] Pharmacist Pharmacist 06/04/21 01/15/22 Cole George LISW Lead Metal Fitter 06/13/21 10/07/21 Fletcher Up Community Health Worker 06/13/21 09/12/21 Bautista Casey MD [address] [place] [address] Assigned Heart and Vascular Provider 07/21/21 01/16/23 Jasmyn Oliver CHW Community Health Worker 09/13/21 10/07/21 Yasmeen Pendleton [facility] [address] [place], [place] [address] Assigned MTM Pharmacist 03/22/22 01/02/23 documented as of this encounter
--- OUTSIDE RECORDS SUMMARY | 2025-06-15 21:59 | XMS_ITS | Encounter Summary ---
Author Organization [place] Address [address] [facility] [place] [address] Care Team Providers Care End Touching Machine Operator Name Role Phone Aleshia Henriquez RD Unavailable Unavailable Vika Kevin APRN SIGNALMAN Unavailable + Marilyn Willard MD Unavailable [phone] Maylin May NP Unavailable [phone] Ip, Bautista Bell MD Unavailable [phone] Vika Kevin APRN [facility] Primary Care Prov ider Vika Kevin APRN [facility] Primary Care Prov ider Yasmeen Pendleton [facility] Unavailable + [phone] Vika Kevin APRN [facility] Primary Care Prov ider Encounter Details Date Type Department Care Team (Late st Contact Info) Description 02/12/2022 MyC Medical Advice [facility] [place] [address] [place] [address] Marilyn Chaves Social History Tobacco [...] and Family Not on file 06/14/2021 Attends [employer] Not on file 06/14 Active Member [...] file 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 Gender Identity Not on file Sexual [...] documented as of this encounter Care Teams End Touching Machine Operator Relationship Specialty Start Date End Date Vika Kevin APRN SIGNALMAN [address] [place] [address] PCP - General Nurse Practitioner - Family 09/24/21 03/05/22 Vika Kevin APRN SIGNALMAN [address] [place] [address] PCP - General Nurse Practitioner - Family 03/18/22 06/18/22 Vika Kevin APRN SIGNALMAN [address] [place] [address] PCP - General Nurse Practitioner - Family 07/24/[address] Bridal Sales Consultant Dietitian, Registered 04/14/19 Vika Kevin, JAIME SIGNALMAN [address] [place] [address] Assigned PCP 07/22/20 11/16/24 Marilyn Willard MD [address] [place] [address] Assigned Surgical Provider 08/17/20 08/16/24 Maylin May, JENNY [address] [place] [address] Assigned Pediatric Specialist Provider 12/16/20 06/13/22 Bautista Casey MD [address] [place] [address] Assigned Heart and Vascular Provider 07/21/21 01/16/23 Yasmeen Pendleton, [facility] [address] [place] [address] Assigned MTM Pharmacist 03/22/22 01/02/23 documented as of this encounter
--- OUTSIDE RECORDS SUMMARY | 2025-06-15 21:59 | XMS_ITS | Encounter Summary ---
Author Organization [place] Address [address] [facility] [place] [address] Care Team Providers Care Ordnance Technician Name Role Phone Andrew Lu MD Primary Care Provider [phone] Niko Resendiz MD Primary Care Provider Carlie Mac MD Primary Care Provide r Angella Mendieta MD Primary Care Provider Julito Banuelos MD Primary Care Provider [phone] Julito Banuelos MD Unavailable Julito Banuelos MD Unavailable Aleshia Henriquez RD Unavailable Unavailable Mary Kay Jones [facility] Unavailable Unavailable Susannah Blankenship [facility] Unavailable [phone] Carolyn Huynh [facility] Unavailable [phone] Vika Kevin APRN COLOR EXPERT Unavailable + Marilyn Willard MD Unavailable [phone] Carie Varela DO Unavailable [phone] Maylin May NP Unavailable [phone] Marisa Rodrigues RN Unavailable Unavailable Vilma Long MD Unavailable + [phone] Yasmeen Pendleton [facility] Unavailable [phone] Cole George Unavailable Fletcher Russell Unavailable Unavailable Bautista Casey MD Unavailable AnnyJasmyn tracey [facility] Unavailable [phone] Vika Kevin APRN [facility] Primary Care Prov ider Vika Kevin APRN [facility] Primary Care Prov ider Yasmeen Pendleton [facility] Unavailable [phone] Vika Kevin APRN [facility] Primary Care Prov ider Reason for Visit * Reason Onset Date Comments Refill Request 05/02/2012 Encounter Details Date Type Department Care Team (Late st Contact Info) Description 05/02/2012 MyC Refill [address] [phone] Andrew Lu MD XXX RETIRED XXX [address] [place] [phone] Refill Request Social History Tobacco Use [...] file Legal Sex Female 3:22 AM LEASE ATTENDANT Gender Identity Not on file Sexual [...] capsule [Andrew Lu MD, MD] Preferred pharmacy: [facility] [place] Comment: documented in this encounter Plan of Treatment Not on file documented as of this encounter Visit Diagnoses Diagnosis Cellulitis of leg- Primary Cellulitis and abscess of leg, except foot documented in this encounter Additional Health Concerns Infection Onset Date Last Indicated Resolved Time Rule Out COVID-19 07/25/2020 07/25/2020 07/26/2020 3:02 PM CDT Rule Out COVID-19 12/04/2020 12/04/2020 12/05/2020 6:04 PM LEASE ATTENDANT documented as of this encounter Care Teams Ordnance Technician Relationship Specialty Start Date End Date Andrew Lu MD XXX RETIRED XXX [address] [place] [phone] PCP - General 12/10/01 01/10/14 Niko Resendiz MD [address] [place] [address] PCP - General Internal Medicine 01/11/14 01/29/14 Carlie Mac MD [address] [place] [address] PCP - General Pediatrics 01/30/14 07/17/15 Angella Mendieta MD [address] [place] [address], [place] [address] PCP - General Family Practice 07/18/15 09/11/15 Julito Banuelos MD [address] [place] [address] PCP - General Family Practice 09/12/15 09/23/21 Julito Banuelos MD [address] [place] [address], [place] [address] PCP - Assigned PCP 02/17/16 12/28/18 Vika Kevin APRN COLOR EXPERT [address] [place] [address] PCP - General Nurse Practitioner - Family 09/24/21 03/05/22 Vika Kevin APRN COLOR EXPERT [address] [place] [address] PCP - General Nurse Practitioner - Family 03/18/22 06/18/22 Vika Kevin APRN COLOR EXPERT [address] [place] [address] PCP - General Nurse Practitioner - Family 07/24/22 Julito Banuelos MD [address] [place] [address] Assigned PCP 02/17/16 07/21/[address] [place] [address] Cherry Grower Dietitian, Registered 04/14/19 Mary Kay Jones, [facility] Pharmacist 08/01/19 04/20/20 Susannah Blankenship, [facility] 420 [facility] 812 [place], [place] [address] Pharmacist Pharmacist 08/08/19 04/15/21 Carolyn Huynh, [facility] [address] [place] [address] Pharmacist Pharmacist 06/25/20 04/15/21 Vika Kevin, SPRING FORGER COLOR EXPERT [address] [place] [address] 107762 Assigned PCP 07/22/20 11/16/24 Marilyn Willard MD 420 [facility] 394 [place], [place] [address] Assigned Surgical Provider 08/17/20 08/16/24 Carie Varela DO [address] [place] [address] Assigned Heart and Vascular Provider 08/17/20 01/19/21 Maylin May NP [address] [place], [place] [address] Assigned Pediatric Specialist Provider 12/16/20 06/13/22 Marisa Rodrigues, RN Clinic Marine Mammal Trainer 01/15/21 02/26/21 Vilma Long MD [address] [place] 943085 Assigned Heart and Vascular Provider 01/20/21 07/20/21 Yasmeen Pendleton, [facility] [address] [place] [address] Pharmacist Pharmacist 06/04/21 01/15/22 Cole George LISW Lead Marine Mammal Trainer 06/13/21 10/07/21 Fletcher Up Community Health Worker 06/13/21 09/12/21 Bautista Casey MD [address] [place] [address] Assigned Heart and Vascular Provider 07/21/21 01/16/23 Jasmyn Oliver CHW [facility] Health Worker 09/13/21 10/07/21 Yasmeen Pendleton [facility] [address] [place] [address] Assigned MTM Pharmacist 03/22/22 01/02/23 documented as of this encounter
--- OUTSIDE RECORDS SUMMARY | 2025-06-15 21:59 | XMS_ITS | Encounter Summary ---
Author Organization [place] Address [address] [facility] [place] [address] Care Team Providers Care Fire Extinguisher Repairer Name Role Phone Andrew Lu MD Primary Care Provider [phone] Niko Resendiz MD Primary Care Provider Carlie Mac MD Primary Care Provide r Angella Mendieta MD Primary Care Provider Julito Banuelos MD Primary Care Provider [phone] Julito Banuelos MD Unavailable Julito Banuelos MD Unavailable Aleshia Henriquez RD Unavailable Unavailable Mary Kay Jones [facility] Unavailable Unavailable Susannah Blankenship [facility] Unavailable [phone] Carolyn Huynh [facility] Unavailable [phone] Vika Kevin APRN FITNESS STUDIES TEACHER Unavailable + Marilyn Willard MD Unavailable [phone] Carie Varela DO Unavailable [phone] Maylin May NP Unavailable [phone] Marisa Rodrigues RN Unavailable Unavailable Vilma Long MD Unavailable + [phone] Yasmeen Pendleton [facility] Unavailable [phone] Cole George Unavailable Fletcher Russell Unavailable Unavailable Bautista Casey MD Unavailable TatyanaJasmyn anand [facility] Unavailable [phone] Vika Kevin APRN [facility] Primary Care Prov ider Vika Kevin APRN [facility] Primary Care Prov ider Yasmeen Pendleton [facility] Unavailable [phone] Vika Kevin APRN [facility] Primary Care Prov ider Encounter Details Date Type Department Care Team (Late st Contact Info) Description 07/02/[address] [phone] Jolene Martin Social History Tobacco Use Types [...] on file Legal Sex Female 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 Gender Identity Not on file Sexual Orientation Not on file documented as of this encounter Plan of Treatment Not on file documented as of this encounter Visit Diagnoses Not on filedocumented in this encounter Additional Health Concerns Infection Onset Date Last Indicated Resolved Time Rule Out COVID-19 07/25/2020 07/25/2020 07/26/2020 3:02 PM CDT Rule Out COVID-19 12/04/2020 12/04/2020 12/05/2020 6:04 PM CREASING AND CUTTING 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 documented as of this encounter Care Teams Fire Extinguisher Repairer Relationship Specialty Start Date End Date Andrew Lu MD XXX RETIRED XXX [address] [place] [phone] PCP - General 12/10/01 01/10/14 Niko Resendiz MD [address] [address] PCP - General Internal Medicine 01/11/14 01/29/14 Carlie Mac MD [address] [place] [address]68 PCP - General Pediatrics 01/30/14 07/17/15 Angella Mendieta MD [address] [place] [address] 33282 PCP - General Family Practice 07/18/15 09/11/15 Julito Banuelos MD [address] [place] [address]57 PCP - General Family Practice 09/12/15 09/23/21 Julito Banuelos MD [address] [place] [address]39 PCP - Assigned PCP 02/17/16 12/28/18 Vika Kevin APRN FITNESS STUDIES TEACHER [address] [place] [address] 72412 PCP - General Nurse Practitioner - Family 09/24/21 03/05/22 Vika Kevin APRN FITNESS STUDIES TEACHER [address] [place] [address] 18754 PCP - General Nurse Practitioner - Family 03/18/22 06/18/22 Vika Kevin APRN FITNESS STUDIES TEACHER [address] [place] [address] 365472 PCP - General Nurse Practitioner - Family 07/24/22 Julito Banuelos MD [address] [place] [address] 948162 Assigned PCP 02/17/16 07/21/20 Aleshia Henriquez, DAVE [address] [place] [address] 37[address] Protection Chief Industrial Plant Dietitian, Registered 04/14/19 Mary Kay Jones, [facility] Pharmacist 08/01/19 04/20/20 Susannah Blankenship, [facility] [address] [place] [address] [address] [place], [place] [address] Pharmacist Pharmacist 08/08/19 04/15/21 [facility] [address] [place], [place] [address] Pharmacist Pharmacist 06/25/20 04/15/21 Vika Kevin APRN FITNESS STUDIES TEACHER [address] [place] [address] 066362 Assigned PCP 07/22/20 11/16/24 Marilyn Willard MD [address] [facility] [address] [place], [place] [address] Assigned Surgical Provider 08/17/20 08/16/24 Carie Varela DO [address] [place], [place] 28[address]85 Assigned Heart and Vascular Provider 08/17/20 01/19/21 Maylin May, JENNY [address] [place] [address] Assigned Pediatric Specialist Provider 12/16/20 06/13/22 Marisa Rodrigues, RN Clinic School Based Therapist 01/15/21 02/26/21 Vilma Long MD [address] [place] [address] Assigned Heart and Vascular Provider 01/20/21 07/20/21 Yasmeen Pendleton [facility] [address] [place] [address] Pharmacist Pharmacist 06/04/21 01/15/22 Cole George LISW Lead School Based Therapist 06/13/21 10/07/21 Fletcher Up Community Health Worker 06/13/21 09/12/21 Bautista Casey MD [address] [place] [address] Assigned Heart and Vascular Provider 07/21/21 01/16/23 Jasmyn Oliver CHW Community Health Worker 09/13/21 10/07/21 Yasmeen Pendleton [facility] [address] [place] [address] [id number] Assigned MTM Pharmacist 03/22/22 01/02/23 documented as of this encounter
--- OUTSIDE RECORDS SUMMARY | 2025-06-15 21:59 | XMS_ITS | Encounter Summary ---
Author Organization [place] Address [address] [place] [address] Care Team Providers Care Cannery Tender Engineer Name Role Phone Andrew Lu MD Primary Care Provider [phone] Niko Resendiz MD Primary Care Provider Carlie Mac MD Primary Care Provide r Angella Mendieta MD Primary Care Provider Julito Banuelos MD Primary Care Provider [phone] Julito Banuelos MD Unavailable Julito Banuelos MD Unavailable Aleshia Henriquez RD Unavailable Unavailable Mary Kay Jones [facility] Unavailable Unavailable Susannah Blankenship [facility] Unavailable [phone] Carolyn Huynh [facility] Unavailable [phone] Vika Kevin APRN BRIMMING 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 Unavailable + Marilyn Willard MD Unavailable [phone] Carie Varela DO Unavailable [phone] Maylin May NP Unavailable [phone] Marisa Rodrigues RN Unavailable Unavailable Vilma Long MD Unavailable + [phone] Yasmeen Pendleton [facility] Unavailable [phone] Cole George Unavailable Fletcher Russell Unavailable Unavailable Bautista Casey MD Unavailable DemetriusJasmyn wright [facility] Unavailable [phone] Vika Kevin APRN [facility] Primary Care Prov ider Vika Kevin APRN [facility] Primary Care Prov ider Yasmeen Pendleton [facility] Unavailable V[facility] Primary Care Prov ider Reason for Visit * Reason Onset Date Comments Refill Request 01/06/2011 Encounter Details Date Type Department Care Team (Late st Contact Info) Description 01/06/[address] [phone] Andrew Lu MD XXX RETIRED XXX [address] [place] [phone] Refill Request Social History Tobacco Use Types Packs/Day Years Used Date Smoking Tobacco: Former Cigarettes 0.3 15 0 10/26/1961 - 10/26/1976 Alcohol Use Standard Drinks/Week Comments Yes 0 (1 standard drink = 0.6 oz pur e alcohol) 1 wine 2x qweek Comments No Sex and Gender Information Value Date Recorded Sex Assigned at Not on file Legal Sex Female 3: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 INSTRUMENT REPAIRER HELPER Gender Identity Not on file Sexual [...] Out COVID-19 12/04/2020 12/04/2020 12/05/2020 6:04 PM INSTRUMENT REPAIRER HELPER documented as of this encounter Care Teams Cannery Tender Engineer Relationship Specialty Start Date End Date Andrew Lu MD XXX RETIRED XXX [address] [place] [phone] PCP - General 12/10/01 01/10/14 Niko Resendiz MD [address] [place] [address] PCP - General Internal Medicine 01/11/14 01/29/14 Carlie Mac MD [address] [place] [address] PCP - General Pediatrics 01/30/14 07/17/15 Angella Mendieta MD [address] [place] [address] PCP - General Family Practice 07/18/15 09/11/15 Julito Banuelos MD [address] [place] [address] PCP - General Family Practice 09/12/15 09/23/21 Julito Banuelos MD [address] [place] [place] [address] PCP - Assigned PCP 02/17/16 12/28/18 Vika Kevin APRN BRIMMING 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 [address] [place] [place] [address]99 PCP - General Nurse Practitioner - Family 09/24/21 03/05/22 Vika Kevin APRN BRIMMING 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 [address] [place] [place] [address] PCP - General Nurse Practitioner - Family 03/18/22 06/18/22 Vika Kevin APRN BRIMMING 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 [address] [place] [address] PCP - General Nurse Practitioner - Family 07/24/22 Julito Banuelos MD [address] [place] [address] Assigned PCP 02/17/16 07/21/[address] [place] [address] Fire Fighter [employer] Dietitian, Registered 04/14/19 Mary Kay Jones, [facility] Pharmacist 08/01/19 04/20/20 Susannah Blankenship, [facility] [address] [facility] [address] [place] [address] Pharmacist Pharmacist 08/08/19 04/15/21 Carolyn Huynh, [facility] [address] [place], [place] [address] Pharmacist Pharmacist 06/25/20 04/15/21 Vika Kevin, JAIME BRIMMING 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 [address] [place] [place] [address] Assigned PCP 07/22/20 11/16/24 Marilyn Willard MD 420 [facility] [address] [place], [place] [address] Assigned Surgical Provider 08/17/20 08/16/24 Carie Varela DO [address] [place] [address] Assigned Heart and Vascular Provider 08/17/20 01/19/21 Maylin May NP [address] [place] [address] Assigned Pediatric Specialist Provider 12/16/20 06/13/22 Marisa Rodrigues, RN Clinic Aligner Barrel And Receiver 01/15/21 02/26/21 Vilma Long MD [address] [place] [address] Assigned Heart and Vascular Provider 01/20/21 07/20/21 [facility] [address] [place] [address] Pharmacist Pharmacist 06/04/21 01/15/22 Cole George LISW Lead Aligner Barrel And Receiver 06/13/21 10/07/21 Fletcher Up Community Health Worker 06/13/21 09/12/21 Bautista Casey MD [address] [place] [address] Assigned Heart and Vascular Provider 07/21/21 01/16/23 Jasmyn Oliver CHW Community Health Worker 09/13/21 10/07/21 [facility] [address] [place] [address] Assigned MTM Pharmacist 03/22/22 01/02/23 documented as of this encounter
--- OUTSIDE RECORDS SUMMARY | 2025-06-15 21:59 | XMS_ITS | Encounter Summary ---
Author Organization [place] Address [address] [place] [address] Care Team Providers Care Bi Specialist Name Role Phone Andrew Lu MD Primary Care Provider [phone] Niko Resendiz MD Primary Care Provider Carlie Mac MD Primary Care Provide r Angella Mendieta MD Primary Care Provider Julito Banuelos MD Primary Care Provider [phone] Julito Banuelos MD Unavailable Julito Banuelos MD Unavailable Aleshia Henriquez RD Unavailable Unavailable Mary Kay Jones [facility] Unavailable Unavailable Susannah Blankenship [facility] Unavailable [phone] Carolyn Huynh [facility] Unavailable [phone] Vika Kevin APRN MANAGER RESEARCH DEVELOPMENT Unavailable + Marilyn Willard MD Unavailable [phone] Carie Varela DO Unavailable [phone] Maylin May NP Unavailable [phone] Marisa Rodrigues RN Unavailable Unavailable Vilma Long MD Unavailable + [phone] Yasmeen Pendleton [facility] Unavailable + [phone] Cole George Unavailable Fletcher Russell Unavailable Unavailable Bautista Casey MD Unavailable DemetriusJasmyn wright [facility] Unavailable [phone] Vika Kevin APRN [facility] Primary Care Prov ider Vika Kevin APRN [facility] Primary Care Prov ider Yasmeen Pendleton [facility] Unavailable [phone] Vika Kevin APRN [facility] Primary Care Prov ider Encounter Details Date Type Department Care Team (Late st Contact Info) Description 02/04/[address] [phone] Veronica [place] Social History Tobacco Use Types Packs/Day Years [...] file Legal Sex Female 3:22 AM PRODUCT 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 Gender Identity Not on file Sexual Orientation [...] Out COVID-19 12/04/2020 12/04/2020 12/05/2020 6:04 PM PRODUCT EVANGELIST documented as of this encounter Care Teams Bi Specialist Relationship Specialty Start Date End Date Andrew Lu MD XXX RETIRED XXX [address] [place] [phone] PCP - General 12/10/01 01/10/14 Niko Resendiz MD [address] [place] [address] PCP - General Internal Medicine 01/11/14 01/29/14 Carlie Mac MD [address] [place] [address] PCP - General Pediatrics 01/30/14 07/17/15 Angella Mendieta MD [address] [place] [address] PCP - General Family Practice 07/18/15 09/11/15 Julito Banuelos MD [address] [place] [address] PCP - General Family Practice 09/12/15 09/23/21 Julito Banuelos MD [address] [place] [address] PCP - Assigned PCP 02/17/16 12/28/18 Vika Kevin APRN MANAGER RESEARCH DEVELOPMENT [address] [place] [address]187 PCP - General Nurse Practitioner - Family 09/24/21 03/05/22 Vika Kevin APRN MANAGER RESEARCH DEVELOPMENT [address] [place] [address] PCP - General Nurse Practitioner - Family 03/18/22 06/18/22 Vika Kevin APRN MANAGER RESEARCH DEVELOPMENT [address] [place] [address] 734532 PCP - General Nurse Practitioner - Family 07/24/22 Julito Banuelos MD [address] [place] [address] [phone] Assigned PCP 02/17/16 07/21/[address] [place] [address] Core Maker Helper Dietitian, Registered 04/14/19 Mary Kay Jones, [facility] Pharmacist 08/01/19 04/20/20 [facility] [address] [place] [address] 8[address] [place], [place] 503[address] Pharmacist Pharmacist 08/08/19 04/15/21 [facility] [address] [place], [place] [address] Pharmacist Pharmacist 06/25/20 04/15/21 Vika Kevin APRN MANAGER RESEARCH DEVELOPMENT [address] [place] [address] 823322 Assigned PCP 07/22/20 11/16/24 Marilyn Willard MD [address] [place] [address] [address] [place] [address] Assigned Surgical Provider 08/17/20 08/16/24 Carie Varela DO [address] [place], [place] [address] Assigned Heart and Vascular Provider 08/17/20 01/19/21 Maylin May NP [address] [place] [address] Assigned Pediatric Specialist Provider 12/16/20 06/13/22 Marisa Rodrigues, RN Clinic Technical Report Writer 01/15/21 02/26/21 Vilma Long MD [address] [place] [address] Assigned Heart and Vascular Provider 01/20/21 07/20/21 [facility] [address] [place] [address] Pharmacist Pharmacist 06/04/21 01/15/22 Cole George LISW Lead Technical Report Writer 06/13/21 10/07/21 Fletcher Up Community Health Worker 06/13/21 09/12/21 Bautista Casey MD [address] [place] [address] Assigned Heart and Vascular Provider 07/21/21 01/16/23 Jasmyn Oliver CHW Community Health Worker 09/13/21 10/07/21 [facility] [address] [place] [address] 875505 Assigned MTM Pharmacist 03/22/22 01/02/23 documented as of this encounter
--- OUTSIDE RECORDS SUMMARY | 2025-06-15 21:59 | XMS_ITS | Encounter Summary ---
Author Organization [place] Address [address] [facility] [place] [address] Care Team Providers Care Press Reader Name Role Phone Carlie Mac MD Primary Care Provide r Angella Mendieta MD Primary Care Provider Julito Banuelos MD Primary Care Provider Julito Banuelos MD Unavailable Julito Banuelos MD Unavailable Aleshia Henriquez RD Unavailable Unavailable Mary Kay Jones [facility] Unavailable Unavailable Susannah Blankenship [facility] Unavailable Carolyn Huynh [facility] Unavailable Vika Kevin APRN LOGISTICS DIRECTOR Unavailable + Marilyn Willard MD Unavailable Carie Varela DO Unavailable Maylin May NP Unavailable [phone] Marisa Hernandez RN Unavailable Unavailable Vilma Long MD Unavailable Yasmeen Pendleton [facility] Unavailable Cole George Unavailable Fletcher Russell Unavailable Unavailable IpBautista MD Unavailable Jasmyn Oliver [facility] Unavailable [phone] Vika Kevin APRN [facility] Primary Care Prov ider Vika Kevin APRN [facility] Primary Care Prov ider Yasmeen Pendleton [facility] Unavailable [phone] Vika Kevin APRN [facility] Primary Care Prov ider Reason for Visit * Reason Onset Date Comments Other 09/30/2014 [facility] [place] Encounter Details Date Type Department Care Team (Late st Contact Info) Description 09/30/2014 MyC Medical Advice [address] [phone] Carlie Mac MD [address] [place] [address] Other [facility] Social History Tobacco Use Types [...] on file Legal Sex Female 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 AM AUTOCAD DETAILER Gender Identity Not on file Sexual Orientation [...] Out COVID-19 12/04/2020 12/04/2020 12/05/2020 6:04 PM AUTOCAD DETAILER documented as of this encounter Care Teams Press Reader Relationship Specialty Start Date End Date Carlie Mac MD [address] [place], [place] [phone] PCP - General Pediatrics 01/30/14 07/17/15 Angella Mendieta MD [address] [place] [address] PCP - General Family Practice 07/18/15 09/11/15 Julito Banuelos MD [address] [place] [address] [phone] PCP - General Family Practice 09/12/15 09/23/21 Julito Banuelos MD [address] [place] [address] 724302 PCP - Assigned PCP 02/17/16 12/28/18 Vika Kevin APRN LOGISTICS DIRECTOR [address] [place] [address] 83338 PCP - General Nurse Practitioner - Family 09/24/21 03/05/22 Vika Kevin APRN LOGISTICS DIRECTOR [address] [place] [address] 48991 PCP - General Nurse Practitioner - Family 03/18/22 06/18/22 Vika Kevin APRN LOGISTICS DIRECTOR [address] [place] [address] 7[address] PCP - General Nurse Practitioner - Family 07/24/22 Julito Banuelos MD [address] [place] [address] 029482 Assigned PCP 02/17/16 07/21/[address] [place] [address] [address] [place] [address] Pharmacy Technician Inpatient Dietitian, Registered 04/14/19 Mary Kay Jones, [facility] Pharmacist 08/01/19 04/20/20 Susannah Blankenship, [facility] [address] [facility] [address] [place], [place] [phone] Pharmacist Pharmacist 08/08/19 04/15/21 Carolyn Huynh [facility] [address] [place], [place] [address] Pharmacist Pharmacist 06/25/20 04/15/21 Vika Kevin APRN LOGISTICS DIRECTOR [address] [place] [address] 492912 Assigned PCP 07/22/20 11/16/24 Marilyn Willard MD [address] [place] [address] 394 [place], [place] 716325 Assigned Surgical Provider 08/17/20 08/16/24 Carie Varela DO [address] [place], [place] 514[address] Assigned Heart and Vascular Provider 08/17/20 01/19/21 Maylin May NP [address] [place], [place] [phone] Assigned Pediatric Specialist Provider 12/16/20 06/13/22 Marisa Rodrigues, RN Clinic Dba Developer 01/15/21 02/26/21 Vilma Long MD [address] [place] [address] Assigned Heart and Vascular Provider 01/20/21 07/20/21 Yasmeen Pendleton, [facility] [address] [place], [place] [address] Pharmacist Pharmacist 06/04/21 01/15/22 Cole George LISW Lead Dba Developer 06/13/21 10/07/21 Fletcher Up Community Health Worker 06/13/21 09/12/21 Bautista Casey MD [address] [place] [address] Assigned Heart and Vascular Provider 07/21/21 01/16/23 Jasmyn Oliver [facility] Community Health Worker 09/13/21 10/07/21 Yasmeen Pendleton [facility] [address] [place] [address] Assigned MTM Pharmacist 03/22/22 01/02/23 documented as of this encounter
--- OUTSIDE RECORDS SUMMARY | 2025-06-15 21:59 | XMS_ITS | Encounter Summary ---
Author Organization [place] Address [address] [facility] [place] [address] Care Team Providers Care Cake Decorator Name Role Phone Julito Banuelos MD Primary Care Provider [phone] Julito Banuelos MD Unavailable Aleshia Henriquez RD Unavailable Unavailable Susannah Blankenship [facility] Unavailable [phone] Carolyn Huynh [facility] Unavailable [phone] Vika Kevin APRN REGIONAL SERVICE MANAGER Unavailable + Marilyn Willard MD Unavailable [phone] Carie Varela DO Unavailable [phone] Maylin May NP Unavailable [phone] Marisa Hernandez RN Unavailable Unavailable Vilma Long MD Unavailable + [phone] Yasmeen Pendleton [facility] Unavailable Cole George Unavailable Fletcher Russell Unavailable Unavailable Bautista Casey MD Unavailable [phone] Jasmyn Oliver Unavailable [phone] Vika Kevin APRN REGIONAL SERVICE MANAGER Primary Care Prov ider Vika Kevin APRN [facility] Primary Care Prov ider Yasmeen Pendleton [facility] Unavailable +[phone] Vika Kevin APRN [facility] Primary Care Prov ider Encounter Details Date Type Department Care Team (Late st Contact Info) Description 05/08/2020 MyC Medical Advice [address] [place] [address] Susannah Blankenship, [facility] [address] [facility] 812 [place] [address] Social History Tobacco Use Types Packs/Day Years [...] on file Legal 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 BELT OPERATOR Gender Identity Not on file Sexual [...] Out COVID-19 12/04/2020 12/04/2020 12/05/2020 6:04 PM BELT OPERATOR Assessment Noted Time PHQ-9 Depression Total Score: 8 07/18/20 19 12:06 PM CDT documented as of this encounter Care Teams Cake Decorator Relationship Specialty [place] [address] [place] [address] PCP - General Family Practice 09/12/15 09/23/21 Vika Kevin APRN REGIONAL SERVICE MANAGER [address] [place] [address] PCP - General Nurse Practitioner - Family 09/24/21 03/05/22 Vika Kevin APRN REGIONAL SERVICE MANAGER [address] [place] [address]64 PCP - General Nurse Practitioner - Family 03/18/22 06/18/22 Vika Kevin APRN REGIONAL SERVICE MANAGER [address] [place] [address] PCP - General Nurse Practitioner - Family 07/24/22 Julito Banuelos MD [address] [place] [address] [phone] Assigned PCP 02/17/16 07/21/[address] [place] [address] Forging Engineer Dietitian, Registered 04/14/19 Susannah Blankenship, [facility] [address] [place] [address] 812 [place] [address] Pharmacist Pharmacist 08/08/19 04/15/21 Carolyn Huynh [facility] [address] [place] [address] Pharmacist Pharmacist 06/25/20 04/15/21 Vika Kevin APRN REGIONAL SERVICE MANAGER [address] [place] [address] Assigned PCP 07/22/20 11/16/24 Marilyn Willard MD [address] [place] [address] [address] [place] [address] Assigned Surgical Provider 08/17/20 08/16/24 Carie Varela DO [address] [place] [address] Assigned Heart and Vascular Provider 08/17/20 01/19/21 Maylin May NP [address] [place] [address] Assigned Pediatric Specialist Provider 12/16/20 06/13/22 Marisa Rodrigues, RN Clinic Recovery Room Rn 01/15/21 02/26/21 Vilma Long MD [address] [place] [address] Assigned Heart and Vascular Provider 01/20/21 07/20/21 Yasmeen Pendleton [facility] [address] [place] [address] [phone] Pharmacist Pharmacist 06/04/21 01/15/22 Cole George LISW Lead Recovery Room Rn 06/13/21 10/07/21 Fletcher Up Community Health Worker 06/13/21 09/12/21 Bautista Casey MD [address] [place] [address] Assigned Heart and Vascular Provider 07/21/21 01/16/23 Jasmyn Oliver CHW Community Health Worker 09/13/21 10/07/21 Yasmeen Pendleton [facility] [address] [place] [address] Assigned MTM Pharmacist 03/22/22 01/02/23 documented as of this encounter
--- OUTSIDE RECORDS SUMMARY | 2025-06-15 21:59 | XMS_ITS | Encounter Summary ---
Author Organization [place] Address [address] [facility] [place] [address] Care Team Providers Care Car Trimmer Name Role Phone Andrew Lu MD Primary Care Provider [phone] Niko Resendiz MD Primary Care Provider Carlie Mac MD Primary Care Provide r Angella Mendieta MD Primary Care Provider Julito Banuelos MD Primary Care Provider [phone] Julito Banuelos MD Unavailable Julito Banuelos MD Unavailable Aleshia Henriquez RD Unavailable Unavailable Mary Kay Jones [facility] Unavailable Unavailable Susannah Blankenship [facility] Unavailable [phone] Carolyn Huynh [facility] Unavailable [phone] Vika Kevin APRN MONOMER RECOVERY OPERATOR Unavailable + Marilyn Willard MD Unavailable [phone] Carie Varela DO Unavailable [phone] Maylin May NP Unavailable [phone] Marisa Rodrigues RN Unavailable Unavailable Vilma Long MD Unavailable + [phone] Yasmeen Pendleton [facility] Unavailable [phone] Cole George Unavailable Fletcher Russell Unavailable Unavailable Bautista Casey MD Unavailable AnnyJasmyn tracey [facility] Unavailable [phone] Vika Kevin APRN [facility] Primary Care Prov ider Vika Kevin APRN [facility] Primary Care Prov ider Yasmeen Pendleton [facility] Unavailable [phone] Vika [facility] Primary Care Prov ider Encounter Details Date Type Department Care Team (Late st Contact Info) Description 06/23/[address] [address] Andrew Lu MD XXX RETIRED XXX [address] [place] [address] OP REPT (Primary Dx) Social History [...] file Legal Sex Female 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 Chronic sinusitis. 2. Deviated [...] recover from anesthesia. Toni LOPEZ MD Document: [id number] [place], [place] MARIALUISA COSBY OPERATIV E REPORT Page 2 of 2 LCN:SDS DSC: 06/23/2003 [place], [place] Name: MR #: : Procedure Date: MARIALUISA COSBY [id number] 1940 06/23/2003 Doctor: Toni RASMUSSEN MD OPERATIVE [...] COVID-19 12/04/2020 12/04/2020 12/05/2020 6:04 PM INTERNAL SALES ENGINEER documented as of this encounter Care Teams Car Trimmer Relationship Specialty Start Date End Date Andrew Lu MD XXX RETIRED XXX [address] [place] [phone] PCP - General 12/10/01 01/10/14 Niko Resendiz MD [address] [address] PCP - General Internal Medicine 01/11/14 01/29/14 Carlie Mac MD [address] [place] [address] PCP - General Pediatrics 01/30/14 07/17/15 Angella Mendieta MD [address] [place] [address] PCP - General Family Practice 07/18/15 09/11/15 Julito Banuelos MD [address] [place] [address] PCP - General Family Practice 09/12/15 09/23/21 Julito Banuelos MD [address] [place] [address] PCP - Assigned PCP 02/17/16 12/28/18 Vika Kevin APRN MONOMER RECOVERY OPERATOR [address] [place] [address] PCP - General Nurse Practitioner - Family 09/24/21 03/05/22 Vika Kevin APRN MONOMER RECOVERY OPERATOR [address] [place] [address] PCP - General Nurse Practitioner - Family 03/18/22 06/18/22 Vika Kevin APRN MONOMER RECOVERY OPERATOR [address] [place] [address] PCP - General Nurse Practitioner - Family 07/24/22 Julito Banuelos MD [address] [place] [address] Assigned PCP 02/17/16 07/21/20 Aleshia Henriquez, DAVE [address] [place] [address] Hot Stick Man Dietitian, Registered 04/14/19 Mary Kay Jones, [facility] Pharmacist 08/01/19 04/20/20 [facility] [address] [place] [address] 8[address] [place], [place] [phone] Pharmacist Pharmacist 08/08/19 04/15/21 [facility] [address] [place], [place] [address] Pharmacist Pharmacist 06/25/20 04/15/21 Vika Kevin APRN MONOMER RECOVERY OPERATOR [address] [place] [address] Assigned PCP 07/22/20 11/16/24 Marilyn Willard MD [address] [place] [address] [address] [place], [place] 275465 Assigned Surgical Provider 08/17/20 08/16/24 Carie Varela DO [address] [place], [place] 24[address] Assigned Heart and Vascular Provider 08/17/20 01/19/21 Maylin May NP [address] [place] [address] Assigned Pediatric Specialist Provider 12/16/20 06/13/22 Marisa Rodrigues, RN Clinic Marine Animal Trainer 01/15/21 02/26/21 Vilma Long MD [address] [place] [address] Assigned Heart and Vascular Provider 01/20/21 07/20/21 [facility] [address] [place] [address] Pharmacist Pharmacist 06/04/21 01/15/22 Cole George LISW Lead Marine Animal Trainer 06/13/21 10/07/21 Fletcher Up Community Health Worker 06/13/21 09/12/21 Bautista Casey MD [address] [place] [address] Assigned Heart and Vascular Provider 07/21/21 01/16/23 Jasmyn Oliver CHW Community Health Worker 09/13/21 10/07/21 [facility] [address] [place], [place] [address] Assigned MTM Pharmacist 03/22/22 01/02/23 documented as of this encounter
--- OUTSIDE RECORDS SUMMARY | 2025-06-15 21:59 | XMS_ITS | Encounter Summary ---
Author Organization [place] Address [address] [facility] [place] [address] Care Team Providers Care As400 Programmer Name Role Phone Cortez Lu MD Primary Care Provider [phone] Niko Resendiz MD Primary Care Provider Carlie Mac MD Primary Care Provide r Angella Mendieta MD Primary Care Provider Julito Banuelos MD Primary Care Provider [phone] Julito Banuelos MD Unavailable Julito Banuelos MD Unavailable Aleshia Henriquez RD Unavailable Unavailable Mary Kay Jones [facility] Unavailable Unavailable Susannah Blankenship [facility] Unavailable [phone] Carolyn Huynh [facility] Unavailable [phone] Vika Kevin APRN [employer] Unavailable + Marilyn Willard MD Unavailable [phone] Carie Varela DO Unavailable [phone] Maylin May NP Unavailable [phone] Marisa Rodrigues RN Unavailable Unavailable Vilma Long MD Unavailable + [phone] Yasmeen Pendleton [facility] Unavailable + [phone] Cole George Unavailable Fletcher Russell Unavailable Unavailable Bautista MD Unavailable [phone] Jasmyn Oliver [facility] Unavailable [phone] Vika Kevin APRN [facility] Primary Care Prov ider Vika Kevin APRN [facility] Primary Care Prov ider Yasmeen Pendleton [facility] Unavailable + [phone] Vika [facility] Primary Care Prov ider Encounter Details Date Type Department Care Team (Late st Contact Info) Description 04/22/2013 Office Visit-[facility] Heart [address] [place] [address] Reji Davis MD [address] [place], [place] [id number] Social History Tobacco Use Types Packs/Day Years Used Date Smoking Tobacco: Former Cigarettes 0.3 15 0 10/26/1961 - 10/26/1976 Smokeless Tobacco: Never Alcohol Use Standard Drinks/Week Comments Yes 0 (1 standard drink = 0.6 oz pur e alcohol) 1-2 glasses of wine weekly Comments No Sex and Gender Information Value Date Recorded Sex Assigned at Not on file Legal Sex Female 3:22 AM MULTIMEDIA COORDINATOR Gender Identity Not on file Sexual Orientation Not on file Occupation Industry Job Start Date Job End Date Not on file Not on file Not on file Not on file documented as of this encounter Progress Notes * Reji Davis MD - 04/26/2013 1:24 PM CDT Progress Note Created by: Reji Davis MD #[id number] DATE: 04/22/2013 MARIALUISA COSBY DATE OF : 1940 AGE: [age] years old Referring Physician: CORTEZ LU Referring Clinic: [facility] CURRENT DIAGNOSES 1. Diabetes Beujswoq-Lhj-Ojlschb Dependent, 250.00 2. - Hyperlipidemia mixed, 272.2 [...] 12. Nasacort AQ 55 mcg Aerosol, [place], Take as Directed 13. Plavix 75 mg [...] circumflex artery in December of 2012 at [facility] in [place], [place] following presentation for non-ST segment elevation GA. I last saw her inApril of this [...] performed showing no evidence for ischemia. It was felt that the patients chest discomfort was likely related to a gastrointestinal issue and the patient was placed I believe on a PPI. She has had no recurrent symptoms since that time. Again, she has had no recurrent anginal symptoms since I have seen her last. <FONT FACE=System> PAST HISTORY Past Medical Illnesses: asthma, HTN, hypothyoidism, diabetes, hyperlipidemia, major depression, anxiety, hypertension, Restless Leg syndrome Past Cardiac Illnesses: CAD, s/p GA Surgeries/Procedures - General: hysterectomy Cardiac/Vasc Procedures-Invasive: left heart cath 12/2012 ([place]) Cardiology Procedures-NonInvasive: echocardiogram Jun 2007, myocardial perfusion (Nuc) Jun 2007, echo 12/2012 ([place]), stress echo February 2013 Cardiac Cath Results: 12/2012 [place] NELIA to the mid and prox [...] - lives with and been living in [place] for 3 months; Place of - [place]; REVIEW OF SYSTEMS GENERAL fatigue, weight loss, [...] takes allergy shots, allergies get worse in [place] but they can get bad in [place] too PHYSICAL EXAMINATION VITAL SIGNS: Blood Pressure: [...] symptoms similar to what she had in [place] then I will need to see her [...] Out COVID-19 12/04/2020 12/04/2020 12/05/2020 6:04 PM MULTIMEDIA COORDINATOR documented as of this encounter Care Teams As400 Programmer Relationship Specialty Start Date End Date Cortez Lu MD XXX RETIRED XXX [address] [place] [address] PCP - General 12/10/01 01/10/14 Niko Resendiz MD [address] [place] [address] PCP - General Internal Medicine 01/11/14 01/29/14 Carlie Mac MD [address] [place] [address] PCP - General Pediatrics 01/30/14 07/17/15 Angella Mendieta MD [facility] [place] [address] PCP - General Family Practice 07/18/15 09/11/15 Julito Banuelos MD [address] [place] [address] PCP - General Family Practice 09/12/15 09/23/21 Julito Banuelos MD [address] [place] [address] PCP - Assigned PCP 02/17/16 12/28/18 Vika Kevin APRN [employer] [address] [place] [address] PCP - General Nurse Practitioner - Family 09/24/21 03/05/22 Vika Kevin APRN [employer] [address] [place] [address] PCP - General Nurse Practitioner - Family 03/18/22 06/18/22 Vika Kevin APRN [employer] [address] [place] [address] PCP - General Nurse Practitioner - Family 07/24/22 Julito Banuelos MD [address] [place] [address] Assigned PCP 02/17/16 07/21/[address] [place] [address] Head Of Business Development Dietitian, Registered 04/14/19 Mary Kay Jones [facility] 08/01/19 04/20/20 Susannah Blankenship, [facility] [address] [place] [address] 8[address] [place] [address] Pharmacist Pharmacist 08/08/19 04/15/21 Carolyn Huynh [facility] [address] [place] [address] Pharmacist Pharmacist 06/25/20 04/15/21 Vika Kevin, JAIME BRICK PAVER [address] [place] [address] 674462 Assigned PCP 07/22/20 11/16/24 Marilyn Willard MD 420 [facility] [address] [place], [place] [address] Assigned Surgical Provider 08/17/20 08/16/24 Carie Varela DO [address] [place] [address] Assigned Heart and Vascular Provider 08/17/20 01/19/21 Maylin May NP [address] [place], [place] [address] Assigned Pediatric Specialist Provider 12/16/20 06/13/22 Marisa Rodrigues, RN Clinic Sales Representative Leather Goods 01/15/21 02/26/21 Vilma Long MD [address] [place] [address] Assigned Heart and Vascular Provider 01/20/21 07/20/21 Yasmeen Pendleton [facility] [address] [place], [place] [address] Pharmacist Pharmacist 06/04/21 01/15/22 Cole George LISW Lead Sales Representative Leather Goods 06/13/21 10/07/21 Fletcher Up Community Health Worker 06/13/21 09/12/21 Bautista Casey MD [address] [place], [place] [address] Assigned Heart and Vascular Provider 07/21/21 01/16/23 Jasmyn Oliver CHW Community Health Worker 09/13/21 10/07/21 Yasmeen Pendleton [facility] [address] [place] [address] Assigned MTM Pharmacist 03/22/22 01/02/23 documented as of this encounter
--- OUTSIDE RECORDS SUMMARY | 2025-06-15 21:59 | XMS_ITS | Encounter Summary ---
Author Organization [place] Address [address] [facility] [place] [address] Care Team Providers Care Gold Beater Name Role Phone Julito Banuelos MD Primary Care Provider [phone] Julito Banuelos MD Unavailable Aleshia Henriquez RD Unavailable Unavailable Susannah Blankenship [facility] Unavailable [phone] Carolyn Huynh [facility] Unavailable [phone] Vika Kevin APRN SUPERINTENDENT MARINE Unavailable + Marilyn Willard MD Unavailable [phone] Carie Varela DO Unavailable [phone] Maylin May NP Unavailable [phone] Marisa Hernandez RN Unavailable Unavailable Vilma Long MD Unavailable + [phone] Yasmeen Pendleton [facility] Unavailable Cole George Unavailable Fletcher Russell Unavailable Unavailable Bautista Casey MD Unavailable [phone] Jasmyn Oliver Unavailable [phone] Vika Kevin APRN SUPERINTENDENT MARINE Primary Care Prov ider Vika Kevin APRN [facility] Primary Care Prov ider Yasmeen Pendleton [facility] Unavailable Vika Kevin APRN [facility] Primary Care Prov ider Encounter Details Date Type Department Care Team (Late st Contact Info) Description 05/15/2020 MyC Medical Advice [address] [place] [address] Susannah Blankenship, [facility] 420 [facility] [address] [place] [address] Social History Tobacco Use Types Packs/Day Years [...] on file 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 Gender Identity Not on file Sexual [...] Out COVID-19 12/04/2020 12/04/2020 12/05/2020 6:04 PM BIOFUELS PLANT OPERATIONS ENGINEER Assessment Noted Time PHQ-9 Depression Total Score: 8 07/18/20 19 12:06 PM CDT documented as of this encounter Care Teams Gold Beater Relationship Specialty [place] [address] [place] [address] PCP - General Family Practice 09/12/15 09/23/21 Vika Kevin APRN SUPERINTENDENT MARINE [address] [place] [address] PCP - General Nurse Practitioner - Family 09/24/21 03/05/22 Vika Kevin APRN SUPERINTENDENT MARINE [address] [place] [address] PCP - General Nurse Practitioner - Family 03/18/22 06/18/22 Vika Kevin APRN SUPERINTENDENT MARINE [address] [place] [address] PCP - General Nurse Practitioner - Family 07/24/22 Julito Banuelos MD [address] [place] [address] 322382 Assigned PCP 02/17/16 07/21/[address] [place] [address] Campaign Marketing Specialist Dietitian, Registered 04/14/19 Susannah Blankenship, [facility] [address] [place] [address] 812 [place] [address] Pharmacist Pharmacist 08/08/19 04/15/21 Carolyn Huynh [facility] [address] [place] [address] Pharmacist Pharmacist 06/25/20 04/15/21 Vika Kevin APRN SUPERINTENDENT MARINE [address] [place] [address] Assigned PCP 07/22/20 11/16/24 Marilyn Willard MD [address] [place] [address] [address] [place] [address] Assigned Surgical Provider 08/17/20 08/16/24 Carie Varela DO [address] [place] [address] Assigned Heart and Vascular Provider 08/17/20 01/19/21 Maylin May NP [address] [place] [address] Assigned Pediatric Specialist Provider 12/16/20 06/13/22 Marisa Rodrigues, RN Clinic Slat Basket Maker 01/15/21 02/26/21 Vilma Long MD [address] [place] [address] Assigned Heart and Vascular Provider 01/20/21 07/20/21 Yasmeen Pendleton [facility] [address] [place] [address] Pharmacist Pharmacist 06/04/21 01/15/22 Cole George LISW Lead Slat Basket Maker 06/13/21 10/07/21 Fletcher Up Community Health Worker 06/13/21 09/12/21 Bautista Casey MD [address] [place] [address] Assigned Heart and Vascular Provider 07/21/21 01/16/23 Jasmyn Oliver CHW Community Health Worker 09/13/21 10/07/21 Yasmeen Pendleton [facility] [address] [place] [address] Assigned MTM Pharmacist 03/22/22 01/02/23 documented as of this encounter
--- OUTSIDE RECORDS SUMMARY | 2025-06-15 22:00 | XMS_ITS | Encounter Summary ---
Author Organization [place] Address [address] [facility] [place] [address] Care Team Providers Care Printing Sign Machine Operator Name Role Phone Julito Banuelos MD Primary Care Provider [phone] Unavailable Unavailable Susannah Blankenship [facility] Unavailable [phone] Carolyn Huynh [facility] Unavailable [phone] Vika Kevin APRN [facility] Unavailable + Marilyn Willard MD Unavailable [phone] Carie Varela DO Unavailable [phone] Maylin May NP Unavailable [phone] Marisa Hernandez RN Unavailable Unavailable Vilma Long MD Unavailable + [phone] Yasmeen Pendleton [facility] Unavailable Cole George Unavailable Fletcher Russell Unavailable Unavailable Bautista Casey MD Unavailable [phone] Jasmyn Oliver Unavailable [phone] Vika Kevin APRN [facility] Primary Care Prov ider Vika Kevin APRN [facility] Primary Care Prov ider FrantzYasmeen barreto [facility] Unavailable [phone] Vika Kevin CUPOLA CHARGER INSULATION [facility] Primary Care Prov ider Encounter Details Date Type Department Care Team (Late st Contact Info) Description 08/14/2020 MyC Medical Advice [address] [place] [address] Susannah Blankenship, [facility] [address] [facility] [address] [place] [address] Social History Tobacco Use Types [...] on file 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 Gender Identity Not on file Sexual [...] Out COVID-19 12/04/2020 12/04/2020 12/05/2020 6:04 PM BRAND PROTECTION MANAGER Assessment Noted Time PHQ-9 Depression Total Score: 020 1:07 PM CDT documented as of this encounter Care Teams Printing Sign Machine Operator Relationship Specialty Start Date End Date Julito Banuelos MD [address] [place], [place] [id number] PCP - General Family Practice 09/12/15 09/23/21 Vika Kevin, JAIME CLAIMS ADJUSTER [address] [place] [address] PCP - General Nurse Practitioner - Family 09/24/21 03/05/22 Vika Kevin APRN CLAIMS ADJUSTER [address] [place] [address] PCP - General Nurse Practitioner - Family 03/18/22 06/18/22 Vika Kevin APRN CLAIMS ADJUSTER [address] [place] [address] PCP - General Nurse Practitioner - Family 07/24/[address] [place] [address] Precision Assembler Dietitian, Registered 04/14/19 Susannah Blankenship, [facility] [address] [facility] [address] [place] [address] Pharmacist Pharmacist 08/08/19 04/15/21 Carolyn Huynh [facility] [address] [place] [address] Pharmacist Pharmacist 06/25/20 04/15/21 Vika Kevin, JAIME CLAIMS ADJUSTER [address] [place] [address] [phone] Assigned PCP 07/22/20 11/16/24 Marilyn Willard MD [address] [facility] [address] [place] [address] Assigned Surgical Provider 08/17/20 08/16/24 Carie Varela DO [address] [place] [address] Assigned Heart and Vascular Provider 08/17/20 01/19/21 Maylin May NP [address] [place] [place] [address] Assigned Pediatric Specialist Provider 12/16/20 06/13/22 Marisa Rodrigues, RN Clinic Automobile Seat Cover Installer 01/15/21 02/26/21 Vilma Long MD [address] [place] [address] Assigned Heart and Vascular Provider 01/20/21 07/20/21 [facility] [address] [place] [address] Pharmacist Pharmacist 06/04/21 01/15/22 Cole George LISW Lead Automobile Seat Cover Installer 06/13/21 10/07/21 Fletcher Up Community Health Worker 06/13/21 09/12/21 Bautista Casey MD [address] [place] [address] Assigned Heart and Vascular Provider 07/21/21 01/16/23 Jasmyn Oliver CHW Community Health Worker 09/13/21 10/07/21 [facility] [address] [place] [address] Assigned MTM Pharmacist 03/22/22 01/02/23 documented as of this encounter
--- OUTSIDE RECORDS SUMMARY | 2025-06-15 22:00 | XMS_ITS | Encounter Summary ---
Author Organization [place] Address [address] [place] [address] Care Team Providers Care Ball Assembler Name Role Phone Andrew Lu MD Primary Care Provider [phone] Niko Resendiz MD Primary Care Provider Carlie Mac MD Primary Care Provide r Angella Mendieta MD Primary Care Provider Julito Banuelos MD Primary Care Provider [phone] Julito Banuelos MD Unavailable Julito Banuelos MD Unavailable Aleshia Henriquez RD Unavailable Unavailable Mary Kay Jones [facility] Unavailable Unavailable Susannah Blankenship [facility] Unavailable [phone] Carolyn Huynh [facility] Unavailable [phone] Vika Kevin APRN INTERNET MARKETING EXECUTIVE Unavailable + Marilyn Willard MD Unavailable [phone] Carie Varela DO Unavailable [phone] Maylin May NP Unavailable [phone] Marisa Rodrigues RN Unavailable Unavailable Vilma Long MD Unavailable + [phone] Yasmeen Pendleton [facility] Unavailable [phone] Cole George Unavailable Fletcher Russell Unavailable Unavailable Bautista Casey MD Unavailable [phone] AnnyJasmyn tracey [facility] Unavailable [phone] Vika Kevin APRN [facility] Primary Care Prov ider Vika Kevin APRN [facility] Primary Care Prov ider Yasmeen Pendleton [facility] Unavailable [phone] [facility] Primary Care Prov ider Encounter Details Date Type Department Care Team (Late st Contact Info) Description 06/08/2007 MyC Medical Advice [address] [phone] Andrew Lu MD XXX RETIRED XXX [address] [place] [phone] Social History Tobacco Use Types Packs/Day Years Used Date Smoking Tobacco: Former Cigarettes 0.3 15 0 10/26/1961 - 10/26/1976 Alcohol Use Standard Drinks/Week Comments Yes 0 (1 standard drink = 0.6 oz pur e alcohol) 1 wine 2x qweek Comments No Sex and Gender Information Value Date Recorded Sex Assigned at Not on file 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 Gender Identity Not on file Sexual Orientation Not on file documented as of this encounter Plan of Treatment Not on file documented as of this encounter Visit Diagnoses Not on filedocumented in this encounter Additional Health Concerns Infection Onset Date Last Indicated Resolved Time Rule Out COVID-19 07/25/2020 07/25/2020 07/26/2020 3:02 PM CDT Rule Out COVID-19 12/04/2020 12/04/2020 12/05/2020 6:04 PM SODA DRY HOUSE OPERATOR documented as of this encounter Care Teams Ball Assembler Relationship Specialty Start Date End Date Andrew Lu MD XXX RETIRED XXX [address] [place] [phone] PCP - General 12/10/01 01/10/14 Niko Resendiz MD [address] [place] [address] PCP - General Internal Medicine 01/11/14 01/29/14 Carlie Mac MD [address] [place], [place] [id number] PCP - General Pediatrics 01/30/14 07/17/15 Angella Mendieta MD [address] [place] [address] 059172 PCP - General Family Practice 07/18/15 09/11/15 Julito Banuelos MD [address] [place] [address] 164402 PCP - General Family Practice 09/12/15 09/23/21 Julito Banuelos MD [address] [place] [address] PCP - Assigned PCP 02/17/16 12/28/18 Vika Kevin APRN INTERNET MARKETING EXECUTIVE [address] [place] [address] [phone] PCP - General Nurse Practitioner - Family 09/24/21 03/05/22 Vika Kevin APRN INTERNET MARKETING EXECUTIVE [address] [place] [address] 008902 PCP - General Nurse Practitioner - Family 03/18/22 06/18/22 Vika Kevin APRN INTERNET MARKETING EXECUTIVE [address] [place] [address] 046232 PCP - General Nurse Practitioner - Family 07/24/22 Julito Banuelos MD [address] [place] [address] 002412 Assigned PCP 02/17/16 07/21/[address] [place] [address] Operating Room Orderly Dietitian, Registered 04/14/19 Mary Kay Jones, [facility] Pharmacist 08/01/19 04/20/20 [facility] [address] [place] [address] [address] [place], [place] [address] Pharmacist Pharmacist 08/08/19 04/15/21 [facility] [address] [place] [address] Pharmacist Pharmacist 06/25/20 04/15/21 Vika Kevin APRN INTERNET MARKETING EXECUTIVE [address] [place] [address] 802512 Assigned PCP 07/22/20 11/16/24 Marilyn Willard MD [address] [place] [address] [address] [place], [place] [address] Assigned Surgical Provider 08/17/20 08/16/24 Carie Varela DO [address] [place] [address] Assigned Heart and Vascular Provider 08/17/20 01/19/21 Maylin May NP [address] [place] [address] Assigned Pediatric Specialist Provider 12/16/20 06/13/22 Marisa Rodrigues, RN Clinic Sales Representative Jewelry 01/15/21 02/26/21 Vilma Long MD [address] [place] [address] Assigned Heart and Vascular Provider 01/20/21 07/20/21 Yasmeen Pendleton [facility] [address] [place] [address] Pharmacist Pharmacist 06/04/21 01/15/22 Cole George LISW Lead Sales Representative Jewelry 06/13/21 10/07/21 Fletcher Up Community Health Worker 06/13/21 09/12/21 Bautista Casey MD [address] [place] [address] Assigned Heart and Vascular Provider 07/21/21 01/16/23 Jasmyn Oliver CHW Community Health Worker 09/13/21 10/07/21 Yasmeen Pendleton [facility] [address] [place] [address] Assigned MTM Pharmacist 03/22/22 01/02/23 documented as of this encounter
--- OUTSIDE RECORDS SUMMARY | 2025-06-15 22:00 | XMS_ITS | Encounter Summary ---
Author Organization [place] Address [address] [facility] [place] [address] Care Team Providers Care Palliative Care Nurse Name Role Phone Niko Resendiz MD Primary Care Provider Carlie Mac MD Primary Care Provide r Angella Mendieta MD Primary Care Provider Julito Banuelos MD Primary Care Provider [phone] Julito Banuelos MD Unavailable Julito Banuelos MD Unavailable Aleshia Henriquez RD Unavailable Unavailable Mary Kay Jones RP Unavailable Unavailable Susannah Blankenship [facility] Unavailable [phone] Carolyn Huynh [facility] Unavailable [phone] Vika Kevin BRAKE OPERATOR SHEET METAL KILN MAINTENANCE Unavailable + Marilyn Willard MD Unavailable Carie Varela DO Unavailable [phone] Mayiln May NP Unavailable [phone] Marisa Hernandez RN Unavailable Unavailable Vilma Long MD Unavailable + [phone] Yasmeen Pendleton [facility] Unavailable Cole George Unavailable Unavai jonathan Up Fletcher Unavailable Unavailable Ip, Bautista Bell MD Unavailable [phone] TatyanaJasmyn anand W Unavailable [phone] Vika Kevin BRAKE OPERATOR SHEET METAL [facility] Primary Care Prov ider Vika Kevin [facility] Primary Care Prov ider Yasmeen Pendleton [facility] Unavailable + [phone] Vika Kevin [facility] Primary Care Prov ider Reason for Visit * Reason Onset Date Comments Medication Question 01/28/2014 Update Encounter Details Date Type Department Care Team (Late st Contact Info) Description 01/28/2014 [facility] Medical Advice [address] [phone] Carlie Mac MD [address] [place] [address] Medication Question (Update ) Social [...] file Legal 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 Gender Identity Not on file Sexual Orientation [...] COVID-19 12/04/2020 12/04/2020 12/05/2020 6:04 PM INSPECTOR FLOOR documented as of this encounter Care Teams Palliative Care Nurse Relationship Specialty Start Date End Date Niko Resendiz MD [address] [place] [address] PCP - General Internal Medicine 01/11/14 01/29/14 Carlie Mac MD [address] [place] [address] PCP - General Pediatrics 01/30/14 07/17/15 Angella Mendieta MD [address] [place] [address] PCP - General Family Practice 07/18/15 09/11/15 Julito Banuelos MD [address] [place] [address] PCP - General Family Practice 09/12/15 09/23/21 Julito Banuelos MD [address] [place] [address] PCP - Assigned PCP 02/17/16 12/28/18 Vika Kevin APRN [employer]IL[employer] MAINTENAN[employer] [address] [place] [address] PCP - General Nurse Practitioner - Family 09/24/21 03/05/22 Vika Kevin APRN [employer] [address] [place] [address] PCP - General Nurse Practitioner - Family 03/18/22 06/18/22 Vika Kevin APRN [employer] MA[employer] [address] [place] [address] PCP - General Nurse Practitioner - Family 07/24/22 Julito Banuelos MD [address] [place] [address] 213892 Assigned PCP 02/17/16 07/21/[address] [place] [address] Film Sound Engineer Dietitian, Registered 04/14/19 Mary Kay Jones, [facility] Pharmacist 08/01/19 04/20/20 Susannah Blankenship [facility] [address] [facility] [address] [place], [place] [address] Pharmacist Pharmacist 08/08/19 04/15/21 Carolyn Huynh, [facility] [address] [place], [place] [address] Pharmacist Pharmacist 06/25/20 04/15/21 Vika Kevin, JAIME KILN MAINTENANCE [address] [place] [address] 291992 Assigned PCP 07/22/20 11/16/24 Marilyn Willard MD 420 [facility] [address] [place], [place] 130445 Assigned Surgical Provider 08/17/20 08/16/24 Carie Varela DO [address] [place] [address] Assigned Heart and Vascular Provider 08/17/20 01/19/21 Maylin May NP [address] [place] [address] Assigned Pediatric Specialist Provider 12/16/20 06/13/22 Marisa Rodrigues, RN Clinic Experienced Truck Driver 01/15/21 02/26/21 Vilma Long MD [address] [place] [address] Assigned Heart and Vascular Provider 01/20/21 07/20/21 [facility] [address] [place] [address] Pharmacist Pharmacist 06/04/21 01/15/22 Cole George LISW Lead Experienced Truck Driver 06/13/21 10/07/21 Fletcher Up Community Health Worker 06/13/21 09/12/21 Bautista Casey MD [address] [place] [address] Assigned Heart and Vascular Provider 07/21/21 01/16/23 Jasmyn Oliver CHW Community Health Worker 09/13/21 10/07/21 [facility] [address] [place] [address] Assigned MTM Pharmacist 03/22/22 01/02/23 documented as of this encounter
--- OUTSIDE RECORDS SUMMARY | 2025-06-15 22:00 | XMS_ITS | Encounter Summary ---
Author Organization [place] Address [address] [facility] [place] [address] Care Team Providers Care Shook Machine Operator Name Role Phone Andrew Lu MD Primary Care Provider [phone] Niko Resendiz MD Primary Care Provider Carlie Mac MD Primary Care Provide r Angella Mendieta MD Primary Care Provider Julito Banuelos MD Primary Care Provider [phone] Julito Banuelos MD Unavailable Julito Banuelos MD Unavailable Aleshia Henriquez RD Unavailable Unavailable Mary Kay Jones [facility] Unavailable Unavailable Susannah Blankenship [facility] Unavailable [phone] Carolyn Huynh [facility] Unavailable [phone] Vika Kevin APRN DIRECTOR OF HOSPITALITY Unavailable + Marilyn Willard MD Unavailable [phone] Carie Varela DO Unavailable [phone] Maylin May NP Unavailable [phone] Marisa Rodrigues RN Unavailable Unavailable Vilma Long MD Unavailable + [phone] Yasmeen Pendleton [facility] Unavailable [phone] Cole George Unavailable Fletcher Russell Unavailable Unavailable Bautista Casey MD Unavailable [phone] DemetriusJasmyn wright [facility] Unavailable [phone] Vika Kevin APRN [facility] Primary Care Prov ider Vika Kevin APRN [facility] Primary Care Prov ider Yasmeen Pendleton [facility] Unavailable [facility] Primary Care Prov ider Encounter Details Date Type Department Care Team (Latest Contact Info) Description 07/08/2013 Medical Correspondence [address] [phone] Andrew Lu MD XXX RETIRED XXX [address] [phone] [facility] 07/08/13 Social History [...] file 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 Gender Identity Not on file Sexual [...] COVID-19 12/04/2020 12/04/2020 12/05/2020 6:04 PM SALES EXECUTIVE INSURANCE documented as of this encounter Care Teams Shook Machine Operator Relationship Specialty Start Date End Date Andrew Lu MD XXX RETIRED XXX [address] [place] [phone] PCP - General 12/10/01 01/10/14 Niko Resendiz MD [address] [place] [address] PCP - General Internal Medicine 01/11/14 01/29/14 Carlie Mac MD [address] [place] [address] PCP - General Pediatrics 01/30/14 07/17/15 Angella Mendieta MD [address] [place] [address] PCP - General Family Practice 07/18/15 09/11/15 Julito Banuelos MD [address] [place] [address] PCP - General Family Practice 09/12/15 09/23/21 Julito Banuelos MD [address] [place] [address] PCP - Assigned PCP 02/17/16 12/28/18 Vika Kevin APRN CNP [address] [place] [address] 18897 PCP - General Nurse Practitioner - Family 09/24/21 03/05/22 Vika Kevin APRN DIRECTOR OF HOSPITALITY [address] [place] [address] PCP - General Nurse Practitioner - Family 03/18/22 06/18/22 Vika Kevin APRN DIRECTOR OF HOSPITALITY [address] [place] [address] PCP - General Nurse Practitioner - Family 07/24/22 Julito Banuelos MD [address] [place] [address] 504282 Assigned PCP 02/17/16 07/21/[address] [place] [address] Risk Management Analyst Dietitian, Registered 04/14/19 Mary Kay Jones [facility] Pharmacist 08/01/19 04/20/20 Susannah Blankenship, [facility] [address] [place] [address] 8[address] [place], [place] [address] Pharmacist Pharmacist 08/08/19 04/15/21 Carolyn Huynh, [facility] [address] [place] [address] Pharmacist Pharmacist 06/25/20 04/15/21 Vika Kevin, JAIME DIRECTOR OF HOSPITALITY [address] [place] [address] 808992 Assigned PCP 07/22/20 11/16/24 Marilyn Willard MD 420 [facility] [address] [place], [place] [address] Assigned Surgical Provider 08/17/20 08/16/24 Carie Varela DO [address] [place] [address] Assigned Heart and Vascular Provider 08/17/20 01/19/21 Maylin May NP [address] [place] [address] Assigned Pediatric Specialist Provider 12/16/20 06/13/22 Marisa Rodrigues, RN Clinic Propagator Laborer 01/15/21 02/26/21 Vilma Long MD [address] [place] [address] Assigned Heart and Vascular Provider 01/20/21 07/20/21 Yasmeen Pendleton [facility] [address] [place] [address] 272195 Pharmacist Pharmacist 06/04/21 01/15/22 Cole George LISW Lead Propagator Laborer 06/13/21 10/07/21 Fletcher Up Community Health Worker 06/13/21 09/12/21 Bautista Casey MD [address] [place] [address] Assigned Heart and Vascular Provider 07/21/21 01/16/23 Jasmyn Oliver CHW Community Health Worker 09/13/21 10/07/21 Yasmeen Pendleton [facility] [address] [place] [address] Assigned MTM Pharmacist 03/22/22 01/02/23 documented as of this encounter
--- OUTSIDE RECORDS SUMMARY | 2025-06-15 22:00 | XMS_ITS | Encounter Summary ---
Author Organization [place] Address [address] [facility] [place] [address] Care Team Providers Care Tire Mounter Name Role Phone Cortez Lu MD Primary Care Provider [phone] Niko Resendiz MD Primary Care Provider Carlie Mac MD Primary Care Provide r Angella Mendieta MD Primary Care Provider Julito Banuelos MD Primary Care Provider [phone] Julito Banuelos MD Unavailable Julito Banuelos MD Unavailable Aleshia Henriquez RD Unavailable Unavailable Mary Kay Jones [facility] Unavailable Unavailable Susannah Blankenship [facility] Unavailable [phone] Carolyn Huynh [facility] Unavailable +[phone] Vika Kevin APRN LOG DECKMAN Unavailable + Marilyn Willard MD Unavailable +[phone] Carie Varela DO Unavailable +[phone] Maylin May NP Unavailable [phone] Marisa Rodrigues RN Unavailable Unavailable Vilma Long MD Unavailable + [phone] Yasmeen Pendleton [facility] Unavailable + [phone] Cole George Unavailable Fletcher Russell Unavailable Unavailable Bautista Casey MD Unavailable [phone] TatyanaJasmyn anand [facility] Unavailable [phone] Vika Kevin APRN [facility] Primary Care Prov ider Vika Kevin APRN [facility] Primary Care Prov ider Yasmeen Pendleton [facility] Unavailable + [phone] Vika [facility] Primary Care Prov ider Encounter Details Date Type Department Care Team (Late st Contact Info) Description 12/01/2013 Office Visit-[facility] [address] [facility] [address] [place] [address] Cristy Hanna, JAIME [facility] XXX RESIGNED XXX [address] [facility] [address] [place] [id number] Social History Tobacco Use Types Packs/Day Years Used Date Smoking Tobacco: Former Cigarettes 0.3 15 0 10/26/1961 - 10/26/1976 Smokeless Tobacco: Never Alcohol Use Standard Drinks/Week Comments Yes 0 (1 standard drink = 0.6 oz pur e alcohol) 1-2 glasses of wine weekly Comments No Sex and Gender Information Value Date Recorded Sex Assigned at Not on file Legal Sex Female 3:22 AM MASONRY INSTRUCTOR Gender Identity Not on file Sexual Orientation Not on file Occupation Industry Job Start Date Job End Date Not on file Not on file Not on file Not on file documented as of this encounter Progress Notes * Cristy Hanan, JENNY - 12/05/2013 3:17 PM CST Progress Note Created by: Cristy Hanna N.P. DATE: 12/01/2013 MARIALUISA COSBY DATE OF : 1940 AGE: [age] years old Referring Physician: CORTEZ LU Referring Clinic: [facility] CURRENT DIAGNOSES 1. Diabetes Tmzzksxg-Clj-Mihcytj Dependent, 250.00 2. - Hyperlipidemia mixed, 272.2 [...] daily 10. Nasacort AQ 55 mcg Aerosol, [place], Take as Directed 11. Plavix 75 mg [...] the pleasure of seeing Marialuisa Cosby in [facility]. She is a 73-year-old white female with a history of coronary artery disease, hypertension, diabetes, dyslipidemia, and asthma who is here today to reevaluate her palpitations. Her cardiovascular history includes hypertension, diabetes, and dyslipidemia. In December,, whilevisiting in [place] she had a zka-XX-csyjvhiwt myocardial infarction and underwent an angiogram with PCI to the proximal and mid circumflex. LV function has been normal by echocardiogram. Apparently the audit clerks supervisor in [place] recommended lifelong Plavix. She was [...] echo February 2013 Cardiac Cath Results: 12/2012 [place] Resolute NELIA to the mid and prox [...] - lives with ; Place of - [place]; REVIEW OF SYSTEMS GENERAL fatigue, feels spacey [...] Weight- 215.00 lbs. Height- 67 BMI Measurement: Clearleap Error: [Kicksend][RingMD SQL Professional Services Specialist Bridge Club Manager][SQL Professional Services Specialist]Divide by zero error encountered. - 82019 CONSTITUTIONAL well developed, well nourished, in no [...] 2. Coronary artery disease. She had a skx-VQ-nynuokuco myocardial infarction in December and remains on [...] Out COVID-19 12/04/2020 12/04/2020 12/05/2020 6:04 PM MASONRY INSTRUCTOR documented as of this encounter Care Teams Tire Mounter Relationship Specialty Start Date End Date Cortez Lu MD XXX RETIRED XXX [address] [place] [address] PCP - General 12/10/01 01/10/14 Niko Resendiz MD [address] [place] [address] PCP - General Internal Medicine 01/11/14 01/29/14 Carlie Mac MD [address] [place] [address] PCP - General Pediatrics 01/30/14 07/17/15 Angella Mendieta MD [address] [place] [address] PCP - General Family Practice 07/18/15 09/11/15 Julito Banuelos MD [address] [place] [address] PCP - General Family Practice 09/12/15 09/23/21 Julito Banuelos MD [address] [place] [address]353 PCP - Assigned PCP 02/17/16 12/28/18 Vika Kevin APRN LOG DECKMAN [address] [place] [address]273 PCP - General Nurse Practitioner - Family 09/24/21 03/05/22 Vika Kevin APRN LOG DECKMAN [address] [place] [address] PCP - General Nurse Practitioner - Family 03/18/22 06/18/22 Vika Kevin APRN LOG DECKMAN [address] [place] [address] PCP - General Nurse Practitioner - Family 07/24/22 Julito Banuelos MD [address] [place] [address] Assigned PCP 02/17/16 07/21/[address] [place] [address] Lease Analyst Dietitian, Registered 04/14/19 Mary Kay Jones [facility] Pharmacist 08/01/19 04/20/20 Susannah Blankenship [facility] [address] [place] [address] [address] [place] [address] Pharmacist Pharmacist 08/08/19 04/15/21 Carolyn Huynh, [facility] [address] [place] [address] Pharmacist Pharmacist 06/25/20 04/15/21 Vika Kevin, .NET PROGRAMMER LOG DECKMAN [address] [place], [place] [address]242 Assigned PCP 07/22/20 11/16/24 Marilyn Willard MD [address] [facility] [address] [place] [address] Assigned Surgical Provider 08/17/20 08/16/24 Carie Varela DO [address] [place] [address] Assigned Heart and Vascular Provider 08/17/20 01/19/21 Maylin May NP [address] [place], [place] [id number] Assigned Pediatric Specialist Provider 12/16/20 06/13/22 Marisa Rodrigues, RN Clinic Compliance Engineer Products 01/15/21 02/26/21 Vilma Long MD [address] [place] [address] Assigned Heart and Vascular Provider 01/20/21 07/20/21 Yasmeen Pendleton [facility] [address] [place] [address] Pharmacist Pharmacist 06/04/21 01/15/22 Cole George LISW Lead Compliance Engineer Products 06/13/21 10/07/21 Fletcher Up Community Health Worker 06/13/21 09/12/21 Bautsita Casey MD [address] [place] [address] Assigned Heart and Vascular Provider 07/21/21 01/16/23 Jasmyn Oliver CHW Community Health Worker 09/13/21 10/07/21 Yasmeen Pendleton, [facility] [address] [place], [place] [address] Assigned MTM Pharmacist 03/22/22 01/02/23 documented as of this encounter
--- OUTSIDE RECORDS SUMMARY | 2025-06-15 22:00 | XMS_ITS | Encounter Summary ---
Author Organization [place] Address [address] [facility] [place] [place] [address] Care Team Providers Care Motor Builder Winder Name Role Phone Cortez Lu MD Primary Care Provider [phone] Niko Resendiz MD Primary Care Provider Carlie Mac MD Primary Care Provide r Angella Mendieta MD Primary Care Provider Julito Banuelos MD Primary Care Provider [phone] Julito Banuelos MD Unavailable Julito Banuelos MD Unavailable Aleshia Henriquez RD Unavailable Unavailable Mary Kay Jones [facility] Unavailable Unavailable Susannah Blankenship [facility] Unavailable [phone] Carolyn Huynh [facility] Unavailable [phone] Vika Kevin APRN DEPUTY REGISTER OF DEEDS Unavailable + Marilyn Willard MD Unavailable [phone] Carie Varela DO Unavailable [phone] Maylin May NP Unavailable [phone] Marisa Rodrigues RN Unavailable Unavailable Vilma Long MD Unavailable + [phone] Yasmeen Pendleton [facility] Unavailable + [phone] Cole George Unavailable Fletcher Russell Unavailable Unavailable Bautista MD Unavailable Jasmyn Oliver [facility] Unavailable [phone] Vika Kevin APRN [facility] Primary Care Prov ider Vika Kevin APRN [facility] Primary Care Prov ider Yasmeen Pendleton [facility] Unavailable + [phone] Vika [facility] Primary Care Prov ider Encounter Details Date Type Department Care Team (Late st Contact Info) Description 09/16/2013 Office Visit-[facility] Heart [address] [place] [address] Reji Davis MD [address] [place] [address] Social History Tobacco Use Types [...] on file Legal Sex Female 3:22 AM ROTATING EQUIPMENT SPECIALIST Gender Identity Not on file Sexual [...] old Referring Physician: CORTEZ LU Referring Clinic: [facility] CURRENT DIAGNOSES 1. Diabetes Yktwbfcw-Mks-Hibtgnz Dependent, 250.00 2. - Hyperlipidemia mixed, 272.2 [...] daily 12. Nasacort AQ 55 mcg Aerosol, [place], Take as Directed 13. Plavix 75 mg [...] mid circumflex artery in December,, while at [facility] in [place], [place]. This was following a presentation for a kin-DN-zcksqsc elevation LA. Since I saw the patient last she was seen in the [facility] ER with overall generalized weakness and felt to be potentially dehydrated in the setting of an infection. She has otherwise done well from a cardiovascular standpoint and has had no recurrent episodes of fatigue. She has had no recurrent anginal symptoms, which are chest discomfort and chest heaviness. Marialuisa plans to travel back to [place] for three months after the holidays. She has questions as to whether she can exercise given her coronary artery disease. Finally, I talked to Marialuisa about this previously, that her field research associate in [place] had recommended that she remain on lifelong Plavix. She seems somewhat adamant about continuing this recommendation. PAST HISTORY Past Medical Illnesses: asthma, HTN, hypothyoidism, diabetes, hyperlipidemia, major depression, anxiety, hypertension, Restless Leg syndrome Past Cardiac Illnesses: CAD, s/p LA Surgeries/Procedures - General: hysterectomy Cardiac/Vasc Procedures-Invasive: left heart cath 12/2012 ([place]) Cardiology Procedures-NonInvasive: echocardiogram Jun 2007, myocardial perfusion (Nuc) Jun 2007, echo 12/2012 ([place]), stress echo February 2013 Cardiac Cath Results: 12/2012 [place] Resolute NELIA to the mid and prox [...] [place] for 3 months; Place of - [place]; REVIEW OF SYSTEMS GENERAL frequent uti's otherwise [...] takes allergy shots, allergies get worse in [place] but they can get bad in [place] too PHYSICAL EXAMINATION VITAL SIGNS: Blood Pressure: [...] left circumflex artery following presentation for a suo-MN-bbytxod elevation LA. 3. Recent evaluation for fatigue and weakness, [...] Out COVID-19 12/04/2020 12/04/2020 12/05/2020 6:04 PM ROTATING EQUIPMENT SPECIALIST documented as of this encounter Care Teams Motor Builder Winder Relationship Specialty Start Date End Date Cortez Lu MD XXX RETIRED XXX [address] [place] [phone] PCP - General 12/10/01 01/10/14 Niko Resendiz MD [address] [place] [address]47 PCP - General Internal Medicine 01/11/14 01/29/14 Carlie Mac MD [address] [place] [address] PCP - General Pediatrics 01/30/14 07/17/15 Angella Mendieta MD [address] [place] [address] 659832 PCP - General Family Practice 07/18/15 09/11/15 Julito Banuelos MD [address] [place] [address] 410402 PCP - General Family Practice 09/12/15 09/23/21 Julito Banuelos MD [address] [place] [address] [id number] PCP - Assigned PCP 02/17/16 12/28/18 Vika Kevin APRN DEPUTY REGISTER OF DEEDS [address] [place] [address] PCP - General Nurse Practitioner - Family 09/24/21 03/05/22 Vika Kevin APRN DEPUTY REGISTER OF DEEDS [address] [place] [address] PCP - General Nurse Practitioner - Family 03/18/22 06/18/22 Vika Kevin APRN DEPUTY REGISTER OF DEEDS [address] [place] [address] [phone] PCP - General Nurse Practitioner - Family 07/24/22 Julito Banuelos MD [address] [place] [address] 278702 Assigned PCP 02/17/16 07/21/[address] [place] [address] Professor Of Nursing Dietitian, Registered 04/14/19 Mary Kay Jones, [facility] Pharmacist 08/01/19 04/20/20 [facility] [address] [place] [address] [address] [place], [place] [address] Pharmacist Pharmacist 08/08/19 04/15/21 Carolyn Huynh [facility] [address] [place] [address] Pharmacist Pharmacist 06/25/20 04/15/21 Vika Kevin APRN CNP [address] [place] [address] 459112 Assigned PCP 07/22/20 11/16/24 Marilyn Willard MD [address] [place] [address] [address] [place], [place] [address] Assigned Surgical Provider 08/17/20 08/16/24 Carie Varela DO [address] [place] [address] Assigned Heart and Vascular Provider 08/17/20 01/19/21 Maylin May NP [address] [place] [address] Assigned Pediatric Specialist Provider 12/16/20 06/13/22 Marisa Rodrigues, RN Clinic Rotary Operator 01/15/21 02/26/21 Vilma Long MD [address] [place] [address] Assigned Heart and Vascular Provider 01/20/21 07/20/21 [facility] [address] [place], [place] [address] Pharmacist Pharmacist 06/04/21 01/15/22 Cole George LISW Lead Rotary Operator 06/13/21 10/07/21 Fletcher Up Community Health Worker 06/13/21 09/12/21 Bautista Casey MD [address] [place] [address] Assigned Heart and Vascular Provider 07/21/21 01/16/23 Jasmyn Oliver CHW Community Health Worker 09/13/21 10/07/21 [facility] [address] [place] [address] Assigned MTM Pharmacist 03/22/22 01/02/23 documented as of this encounter
--- OUTSIDE RECORDS SUMMARY | 2025-06-15 22:00 | XMS_ITS | Encounter Summary ---
Author Organization [place] Address [address] [facility] [place] [address] Care Team Providers Care Archival Studies Professor Name Role Phone Andrew Lu MD Primary Care Provider [phone] Niko Resendiz MD Primary Care Provider Carlie Mac MD Primary Care Provide r Angella Mendieta MD Primary Care Provider Julito Banuelos MD Primary Care Provider [phone] Julito Banuelos MD Unavailable Julito Banuelos MD Unavailable Aleshia Henriquez RD Unavailable Unavailable Mary Kay Jones [facility] Unavailable Unavailable Susannah Blankenship [facility] Unavailable [phone] Carolyn Huynh [facility] Unavailable [phone] Vika Kevin APRN HOSE HANDLER Unavailable + Marilyn Willard MD Unavailable [phone] Carie Varela DO Unavailable [phone] Maylin May NP Unavailable [phone] Marisa Rodrigues RN Unavailable Unavailable Vilma Long MD Unavailable + [phone] Yasmeen Pendleton [facility] Unavailable + [phone] Cole George Unavailable Fletcher Russell Unavailable Unavailable Bautista Casey MD Unavailable [phone] DemetriusJasmyn wright [facility] Unavailable [phone] Vika Kevin APRN [facility] Primary Care Prov ider Vika Kevin APRN [facility] Primary Care Prov ider Yasmeen Pendleton [facility] Unavailable + [phone] Vika Kevin APRN [facility] Primary Care Prov ider Encounter Details Date Type Department Care Team (Late st Contact Info) Description 01/05/2014 MyC Medical Advice [address] [address] Mary Cha LPN Social History [...] on file Legal Sex Female 3:22 AM RESTAURANT BUSSER Gender Identity Not on file Sexual Orientation [...] Out COVID-19 12/04/2020 12/04/2020 12/05/2020 6:04 PM RESTAURANT BUSSER documented as of this encounter Care Teams Archival Studies Professor Relationship Specialty Start Date End Date Andrew Lu MD XXX RETIRED XXX [address] [place] [address] PCP - General 12/10/01 01/10/14 Niko Resendiz MD [address] [place] [address] PCP - General Internal Medicine 01/11/14 01/29/14 Carlie Mac MD [address] [place] [address] PCP - General Pediatrics 01/30/14 07/17/15 Angella Mendieta MD [address] [place] [address]67 PCP - General Family Practice 07/18/15 09/11/15 Julito Banuelos MD [address] [place] [address] PCP - General Family Practice 09/12/15 09/23/21 Julito Banuelos MD [address] [place] [address]76 PCP - Assigned PCP 02/17/16 12/28/18 Vika Kevin APRN HOSE HANDLER [address] [place] [address] PCP - General Nurse Practitioner - Family 09/24/21 03/05/22 Vika Kevin APRN HOSE HANDLER [address] [place] [address] PCP - General Nurse Practitioner - Family 03/18/22 06/18/22 Vika Kevin APRN HOSE HANDLER [address] [place] [address] 333192 PCP - General Nurse Practitioner - Family 07/24/22 Julito Banuelos MD [address] [place] [address] [phone] Assigned PCP 02/17/16 07/21/[address] [place] [address]1322 Rehabilitation Services Director Dietitian, Registered 04/14/19 Mary Kay Jones, [facility] Pharmacist 08/01/19 04/20/20 [facility] [address] [place] [address] [address] [place], [place] 0[address]35 Pharmacist Pharmacist 08/08/19 04/15/21 [facility] [address] [place], [place] [address] Pharmacist Pharmacist 06/25/20 04/15/21 Vika Kevin APRN HOSE HANDLER [address] [place] [address] 566232 Assigned PCP 07/22/20 11/16/24 Marilyn Willard MD [address] [place] [address] [address] [place] [address] Assigned Surgical Provider 08/17/20 08/16/24 Carie Varela DO [address] [place], [place] [address] Assigned Heart and Vascular Provider 08/17/20 01/19/21 Maylin May NP [address] [place] [address] Assigned Pediatric Specialist Provider 12/16/20 06/13/22 Marisa Rodrigues, RN Clinic Professor Of Visual Arts 01/15/21 02/26/21 Vilma Long MD [address] [place] [address] Assigned Heart and Vascular Provider 01/20/21 07/20/21 Yasmeen Pendleton [facility] [address] [place] [address] Pharmacist Pharmacist 06/04/21 01/15/22 Cole George LISW Lead Professor Of Visual Arts 06/13/21 10/07/21 Fletcher Up Community Health Worker 06/13/21 09/12/21 Bautista Casey MD [address] [place] [address] Assigned Heart and Vascular Provider 07/21/21 01/16/23 Jasmyn Oliver CHW Community Health Worker 09/13/21 10/07/21 Yasmeen Pendleton [facility] [address] [place] [address] [id number] Assigned MTM Pharmacist 03/22/22 01/02/23 documented as of this encounter
--- OUTSIDE RECORDS SUMMARY | 2025-06-15 22:00 | XMS_ITS | Encounter Summary ---
Author Organization [place] Address [address] [facility] [address] Care Team Providers Care Iron Worker Name Role Phone Andrew Lu MD Primary Care Provider [phone] Niko Resendiz MD Primary Care Provider Carlie Mac MD Primary Care Provide r Angella Mendieta MD Primary Care Provider Julito Banuelos MD Primary Care Provider [phone] Julito Banuelos MD Unavailable Julito Banuelos MD Unavailable Aleshia Henriquez RD Unavailable Unavailable Mary Kay Jones [facility] Unavailable Unavailable Susannah Blankenship [facility] Unavailable [phone] Carolyn Huynh [facility] Unavailable [phone] Vika Kevin APRN AIRCRAFT CAPTAIN Unavailable + Marilyn Willard MD Unavailable [phone] Carie Varela DO Unavailable [phone] Maylin May NP Unavailable [phone] Marisa Rodrigues RN Unavailable Unavailable Vilma Long MD Unavailable + [phone] Yasmeen Pendleton [facility] Unavailable + [phone] Cole George Unavailable Fletcher Russell Unavailable Unavailable Bautista Casey MD Unavailable DemetriusJasmyn wright [facility] Unavailable [phone] Vika [facility] Primary Care Prov ider Vika Kevin APRN [facility] Primary Care Prov ider Yasmeen Pendleton [facility] Unavailable [phone] Vika Kevin [facility] Primary Care Prov ider Reason for Visit * Reason Onset Date Comments UTI 08/24/2013 Encounter Details Date Type Department Care Team (Late st Contact Info) Description 08/24/2013 MyC Medical Advice [address] [address] Andrew Lu MD XXX RETIRED XXX [address] [place] [address] UTI Social History Tobacco Use Types [...] on file Legal Sex Female 3:22 AM DOCTOR OF NURSING PRACTICE Gender Identity Not on file Sexual Orientation [...] Out COVID-19 12/04/2020 12/04/2020 12/05/2020 6:04 PM DOCTOR OF NURSING PRACTICE documented as of this encounter Care Teams Iron Worker Relationship Specialty Start Date End Date Andrew Lu MD XXX RETIRED XXX [address] [place] [address] PCP - General 12/10/01 01/10/14 Niko Resendiz MD [address] [place] [address] PCP - General Internal Medicine 01/11/14 01/29/14 Carlie Mac MD [address] [place] [address] PCP - General Pediatrics 01/30/14 07/17/15 Angella Mendieta MD [address] [place] [address] PCP - General Family Practice 07/18/15 09/11/15 Julito Banuelos MD [address] [place] [address]69 PCP - General Family Practice 09/12/15 09/23/21 Julito Banuelos MD [address] [place] [address] 42957 PCP - Assigned PCP 02/17/16 12/28/18 Vika Kevin APRN AIRCRAFT CAPTAIN [address] [place] [address] 61818 PCP - General Nurse Practitioner - Family 09/24/21 03/05/22 Vika Kevin APRN AIRCRAFT CAPTAIN [address] [place] [address] PCP - General Nurse Practitioner - Family 03/18/22 06/18/22 Vika Kevin APRN AIRCRAFT CAPTAIN [address] [place] [address] 477142 PCP - General Nurse Practitioner - Family 07/24/22 Julito Banuelos MD [address] [place] [address] [phone] Assigned PCP 02/17/16 07/21/[address] [place] [address] Slip Caster Dietitian, Registered 04/14/19 Mary Kay Jones, [facility] Pharmacist 08/01/19 04/20/20 Susannah Blankenship, [facility] [address] [place] [address] 8[address] [place], [place] 3[address]95 Pharmacist Pharmacist 08/08/19 04/15/21 Carolyn Huynh, [facility] [address] [place], [place] [address] Pharmacist Pharmacist 06/25/20 04/15/21 Vika Kevin APRN AIRCRAFT CAPTAIN [address] [place] [address] [phone] Assigned PCP 07/22/20 11/16/24 Marilyn Willard MD [address] [place] [address] [address] [place], [place] [phone] Assigned Surgical Provider 08/17/20 08/16/24 Carie Varela DO [address] [place] [address] Assigned Heart and Vascular Provider 08/17/20 01/19/21 Maylin May NP [address] [place] [address] Assigned Pediatric Specialist Provider 12/16/20 06/13/22 Marisa Rodrigues, RN Clinic Pharmacy Intake Coordinator 01/15/21 02/26/21 Vilma Long MD [address] [place] [address] Assigned Heart and Vascular Provider 01/20/21 07/20/21 Yasmeen Pendleton [facility] [address] [place] [address] 019125 Pharmacist Pharmacist 06/04/21 01/15/22 Cole George LISW Lead Pharmacy Intake Coordinator 06/13/21 10/07/21 Fletcher Up Community Health Worker 06/13/21 09/12/21 Bautista Casey MD [address] [place] [address] Assigned Heart and Vascular Provider 07/21/21 01/16/23 Jasmyn Oliver CHW Community Health Worker 09/13/21 10/07/21 Yasmeen Pendleton [facility] [address] [place] [address] 108245 Assigned MTM Pharmacist 03/22/22 01/02/23 documented as of this encounter
--- OUTSIDE RECORDS SUMMARY | 2025-06-15 22:00 | XMS_ITS | Encounter Summary ---
Author Organization [place] Address [address] [facility] [place] [address] Care Team Providers Care Health Care Technician Name Role Phone Carlie Wang MD Primary Care Provide r Angella Mendieta MD Primary Care Provider Julito Banuelos MD Primary Care Provider Julito Banuelos MD Unavailable Julito Banuelos MD Unavailable Aleshia Henriquez RD Unavailable Unavailable Mary Kay Jones [facility] Unavailable Unavailable Susannah Blankenship [facility] Unavailable [phone] Carolyn Huynh [facility] Unavailable [phone] Vika Kevin APRN NURSE LIAISON Unavailable + Marilyn Willard MD Unavailable Carie Varela DO Unavailable Maylin May NP Unavailable [phone] Marisa Hernandez RN Unavailable Unavailable Vilma Long MD Unavailable Yasmeen Pendleton [facility] Unavailable Cole George Unavailable Fletcher Russell Unavailable Unavailable Ip, Bautista Bell MD Unavailable [phone] Jasmyn Oliver [facility] Unavailable [phone] Vika Kevin APRN [facility] Primary Care Prov ider Vika Kevin APRN [facility] Primary Care Prov ider Yasmeen Pendleton [facility] Unavailable + [phone] Vika Kevin APRN [facility] Primary Care Prov ider Encounter Details Date Type Department Care Team (Late st Contact Info) Description 03/10/2014 Office Visit-[facility] Heart [address] [place] [address] Jaimee Donald MD HEART [place] [id number] Social History Tobacco Use Types Packs/Day Years [...] file Legal Sex Female 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 LIAISON Gender Identity Not on file Sexual Orientation Not on file Occupation Industry Job Start Date Job End Date Not on file Not on file Not on file Not on file documented as of this encounter Progress Notes * Jaimee Donald MD - 03/13/2014 3:02 PM CDT Progress Note Created by: Jaimee Donald M.D. [id number] DATE: 03/10/2014 MARIALUISA COSBY DATE OF : 1940 AGE: [age] years old Referring Physician: CARLIE WANG Referring Clinic: [facility] CURRENT DIAGNOSES 1. 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 - Hyperlipidemia mixed, 272.2 3. - Hypertension, 401.1 4. - CAD, 414.00 5. Palpitations, 785.1 ALLERGIES lisinopril Nitrofurantoin Nitrofurantoin Macrocrystal pramipexole Di-HCl Sulfasalazine tolterodine tartrate zolpidem tartrate MEDICATIONS (prior to changes made today) 1. Asmanex Twisthaler 220 mcg (120 doses) Aerosol Powdr [facility] ActivIn, Take as Directed 2. aspirin, [...] daily 10. Nasacort AQ 55 mcg Aerosol, Alpine, Take as Directed 11. Plavix 75 mg [...] artery disease having had a non-ST elevation NV in [place] in December 2012with PCI to the proximal mid circumflex. Apparently the service department manager recommended lifelong Plavix. She has hypertension, diabetes [...] Leg syndrome Past Cardiac Illnesses: CAD, s/p NV Surgeries/Procedures - General: hysterectomy, tonsillectomy Cardiac/Vasc Procedures-Invasive: left heart cath 12/2012 ([place]) Cardiology Procedures-NonInvasive: echocardiogram Jun 2007, myocardial perfusion (Nuc) Jun 2007, echo 12/2012 ([place]), stress echo February 2013 Cardiac Cath Results: 12/2012 [place] Resolute NELIA to the mid and prox [...] - lives with ; Place of - [place]; REVIEW OF SYSTEMS GENERAL feeling spacey lately [...] COVID-19 12/04/2020 12/04/2020 12/05/2020 6:04 PM CUSTOMER LIAISON documented as of this encounter Care Teams Health Care Technician Relationship Specialty Start Date End Date Carlie Wang MD [address] [place] [address] PCP - General Pediatrics 01/30/14 07/17/15 Angella Mendieta MD [address] [place] [address] 933102 PCP - General Family Practice 07/18/15 09/11/15 Julito Banuelos MD [address] [place] [address] 26675 PCP - General Family Practice 09/12/15 09/23/21 Julito Banuelos MD [address] [place] [address] 69995 PCP - Assigned PCP 02/17/16 12/28/18 Vika Kevin APRN NURSE LIAISON [address] [place] [address] 953262 PCP - General Nurse Practitioner - Family 09/24/21 03/05/22 Vika Kevin APRN NURSE LIAISON [address] [place] [address]8580 PCP - General Nurse Practitioner - Family 03/18/22 06/18/22 Vika Kevin APRN NURSE LIAISON [address] [place] [address] [phone] PCP - General Nurse Practitioner - Family 07/24/22 Julito Banuelos MD [address] [place] [address] [phone] Assigned PCP 02/17/16 07/21/[address] [place] [address] 11538 Electric Sealing Machine Operator Dietitian, Registered 04/14/19 Mary Kay Jones, [facility] Pharmacist 08/01/19 04/20/20 Susannah Blankenship, [facility] [address] [place] [address] [address] [place], [place] 882925 Pharmacist Pharmacist 08/08/19 04/15/21 Carolyn [address]ynh [facility] [address] [place], [place] 230387 Pharmacist Pharmacist 06/25/20 04/15/21 Vika Kevin APRN NURSE LIAISON [address] [place] [address] 604702 Assigned PCP 07/22/20 11/16/24 Marilyn Willard MD [address] [address] Assigned Surgical Provider 08/17/20 08/16/24 Carie Varela DO [address] [place] [address] Assigned Heart and Vascular Provider 08/17/20 01/19/21 Maylin May, JENNY [address] [place] [address] Assigned Pediatric Specialist Provider 12/16/20 06/13/22 Marisa Rodrigues, RN Clinic Order Expediter 01/15/21 02/26/21 Vilma Long MD [address] [place] [address] Assigned Heart and Vascular Provider 01/20/21 07/20/21 Yasmeen Pendleton [facility] [address] [place] [address] [phone] Pharmacist Pharmacist 06/04/21 01/15/22 Cole George LISW Lead Order Expediter 06/13/21 10/07/21 Fletcher Up Community Health Worker 06/13/21 09/12/21 Bautista Casey MD [address] [place] [address] Assigned Heart and Vascular Provider 07/21/21 01/16/23 Jasmyn Oliver CHW Community Health Worker 09/13/21 10/07/21 Yasmeen Pendleton [facility] [address] [place] [address] Assigned MTM Pharmacist 03/22/22 01/02/23 documented as of this encounter
--- OUTSIDE RECORDS SUMMARY | 2025-06-15 22:00 | XMS_ITS | Encounter Summary ---
Author Organization [place] Address [address] [facility] [place] [address] Care Team Providers Care Cosmetic Manager Name Role Phone Julito Banuelos MD Primary Care Provider [phone] Julito Banuelos MD Unavailable Aleshia Henriquez RD Unavailable Unavailable Susannah Blankenship [facility] Unavailable [phone] Carolyn Huynh [facility] Unavailable [phone] Vika Kevin APRN NECK BAND SETTER Unavailable + Marilyn Willard MD Unavailable [phone] Carie Varela DO Unavailable [phone] Maylin May NP Unavailable [phone] Marisa Hernandez RN Unavailable Unavailable Vilma Long MD Unavailable + [phone] Yasmeen Pendleton [facility] Unavailable [phone] Cole George Unavailable Fletcher Russell Unavailable Unavailable Bautista Casey MD Unavailable [phone] Jasmyn Oliver Unavailable [phone] Vika Kevin APRN NECK BAND SETTER Primary Care Prov ider Vika Kevin APRN [facility] Primary Care Prov ider Yasmeen Pendleton [facility] Unavailable + [phone] Vika Kevin APRN [facility] Primary Care [facility] ider Reason for Visit * Reason Comments Medication Refill Encounter Details Date Type Department Care Team (Late st Contact Info) Description 06/26/[address] [address] [place] [address] [place] [address] Medication Refill Social History Tobacco Use [...] file Legal Sex Female 3:22 AM NETWORK SUPPORT Gender Identity Not on file Sexual Orientation [...] per RN protocol Leslye Steiner RN, BSN [place] Triage * Telephone Encounter - Maylin Diaz - 06/26/2020 9:18 AM CDT Patient's calling already to see if this can be done today. Advised of the refill policy. Francisca Diaz, Bond Clerk documented in this encounter Plan of Treatment Not on file documented as of this encounter Visit Diagnoses Diagnosis Environmental allergies Allergic rhinitis, cause unspecified documented in this encounter Additional Health Concerns Infection Onset Date Last Indicated Resolved Time Rule Out COVID-19 07/25/2020 07/25/2020 07/26/2020 3:02 PM CDT Rule Out COVID-19 12/04/2020 12/04/2020 12/05/2020 6:04 PM NETWORK SUPPORT Assessment Noted Time PHQ-9 Depression Total Score: 12 020 3:35 PM CDT documented as of this encounter Care Teams Cosmetic Manager Relationship Specialty Start Date End Date Julito Banuelos MD [address] [place] [address] PCP - General Family Practice 09/12/15 09/23/21 Vika Kevin APRN NECK BAND SETTER [address] [place] [address]35 PCP - General Nurse Practitioner - Family 09/24/21 03/05/22 Vika Kevin APRN NECK BAND SETTER [address] [place] [address] PCP - General Nurse Practitioner - Family 03/18/22 06/18/22 Vika Kevin APRN NECK BAND SETTER [address] [place] [address] 37746 PCP - General Nurse Practitioner - Family 07/24/22 Julito Banuelos MD [address] [place] [address] Assigned PCP 02/17/16 07/21/[address] [place] [address] Employee Communications Specialist Dietitian, Registered 04/14/19 Susannah Blankenship, [facility] [address] [facility] [address] [place] [address] Pharmacist Pharmacist 08/08/19 04/15/21 Carolyn Huynh, [facility] [address] [place] [address] Pharmacist Pharmacist 06/25/20 04/15/21 Vika Kevin APRN NECK BAND SETTER [address] [place] [address] [phone] Assigned PCP 07/22/20 11/16/24 Marilyn Willard MD [address] [facility] [address] [place], [place] 649875 Assigned Surgical Provider 08/17/20 08/16/24 Carie Varela DO [address] [place] [id number] Assigned Heart and Vascular Provider 08/17/20 01/19/21 Maylin May NP [address] [place] [address] Assigned Pediatric Specialist Provider 12/16/20 06/13/22 Marisa Rodrigues, RN Clinic Oscillograph Technician 01/15/21 02/26/21 Vilma Long MD [address] [place] [id number] Assigned Heart and Vascular Provider 01/20/21 07/20/21 Yasmeen Pendleton [facility] [address] [place], [place] [address] Pharmacist Pharmacist 06/04/21 01/15/22 Cole George LISW Lead Oscillograph Technician 06/13/21 10/07/21 Fletcher Up Community Health Worker 06/13/21 09/12/21 Bautista Casey MD [address] [place], [place] [address] Assigned Heart and Vascular Provider 07/21/21 01/16/23 Jasmyn Oliver CHW Community Health Worker 09/13/21 10/07/21 Yasmeen Pendleton [facility] [address] [place] [address] Assigned MTM Pharmacist 03/22/22 01/02/23 documented as of this encounter
--- OUTSIDE RECORDS SUMMARY | 2025-06-15 22:00 | XMS_ITS | Encounter Summary ---
Author Organization [place] Address [address] [place] [address] Care Team Providers Care Health And Wellness Director Name Role Phone Andrew Lu MD Primary Care Provider [phone] Niko Resendiz MD Primary Care Provider Carlie Mac MD Primary Care Provide r Angella Mendieta MD Primary Care Provider Julito Banuelos MD Primary Care Provider [phone] Julito Baneulos MD Unavailable Julito Banuelos MD Unavailable Aleshia Henriquez RD Unavailable Unavailable Mary Kay Jones [facility] Unavailable Unavailable Susannah Blankenship [facility] Unavailable [phone] Carolyn Huynh [facility] Unavailable [phone] Vika Kevin APRN HOUSE MOVER Unavailable + Marilyn Willard MD Unavailable [phone] Carie Varela DO Unavailable [phone] Maylin May NP Unavailable [phone] Marisa Rodrigues RN Unavailable Unavailable Vilma Long MD Unavailable + [phone] Yasmeen Pendleton [facility] Unavailable [phone] Cole George Unavailable Fletcher Russell Unavailable Unavailable Bautista Casey MD Unavailable DemetriusJasmyn wright [facility] Unavailable [facility] Primary Care Prov ider Vika Kevin APRN [facility] Primary Care Prov ider Yasmeen Pendleton [facility] Unavailable [facility] Primary Care Prov ider Encounter Details Date Type Department Care Team (Late st Contact Info) Description 12/28/2013 [facility] Medical Advice [facility] - Primary Care Skin [address] [place] [id number] Jenn Yip MD [address] [facility] [place] [address] Social History Tobacco Use Types Packs/Day Years Used Date Smoking Tobacco: Former Cigarettes 0.3 15 0 10/26/1961 - 10/26/1976 Smokeless Tobacco: Never Alcohol Use Standard Drinks/Week Comments Yes 0 (1 standard drink = 0.6 oz pur e alcohol) 1-2 glasses of wine weekly Comments No Sex and Gender Information Value Date Recorded Sex Assigned at Not on file Legal Sex Female 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 PROFESSOR Gender Identity Not on file Sexual Orientation [...] Out COVID-19 12/04/2020 12/04/2020 12/05/2020 6:04 PM COSMETOLOGY PROFESSOR documented as of this encounter Care Teams Health And Wellness Director Relationship Specialty Start Date End Date Andrew Lu MD XXX RETIRED XXX [address] [place] [phone] PCP - General 12/10/01 01/10/14 Niko Resendiz MD [address] [place] [address] PCP - General Internal Medicine 01/11/14 01/29/14 Carlie Mac MD [address] [place] [address] PCP - General Pediatrics 01/30/14 07/17/15 Angella Mendieta MD [address] [place] [address] PCP - General Family Practice 07/18/15 09/11/15 Julito Banuelos MD [address] [place] [address] PCP - General Family Practice 09/12/15 09/23/21 Julito Banuelos MD [address] [place] [address] 4[address] PCP - Assigned PCP 02/17/16 12/28/18 Vika Kevin APRN HOUSE MOVER [address] [place] [address] PCP - General Nurse Practitioner - Family 09/24/21 03/05/22 Vika Kevin APRN HOUSE MOVER [address] [place] [address] PCP - General Nurse Practitioner - Family 03/18/22 06/18/22 Vika Kevin APRN HOUSE MOVER [address] [place] [address] 513882 PCP - General Nurse Practitioner - Family 07/24/22 Julito Banuelos MD [address] [place] [address] [phone] Assigned PCP 02/17/16 07/21/[address] [place] [address] Lens Generating Machine Tender Dietitian, Registered 04/14/19 Mary Kay Jones, [facility] Pharmacist 08/01/19 04/20/20 Susannah Blankenship, [facility] [address] [facility] [address] [place], [place] 196195 Pharmacist Pharmacist 08/08/19 04/15/21 Carolyn Huynh, [facility] [address] [place], [place] [address] Pharmacist Pharmacist 06/25/20 04/15/21 Vika Kevin, JAIME HOUSE MOVER [address] [place] [address] 965182 Assigned PCP 07/22/20 11/16/24 Marilyn Willard MD 420 [facility] [address] [place], [place] 164875 Assigned Surgical Provider 08/17/20 08/16/24 Carie Varela DO [address] [place] [address] Assigned Heart and Vascular Provider 08/17/20 01/19/21 Maylin May NP [address] [facility] [place] [address] Assigned Pediatric Specialist Provider 12/16/20 06/13/22 Marisa Rodrigues, RN Clinic Hairmasters Manager 01/15/21 02/26/21 Vilma Long MD [address] [place] [address] Assigned Heart and Vascular Provider 01/20/21 07/20/21 Yasmeen Pendleton [facility] [address] [place] [address] Pharmacist Pharmacist 06/04/21 01/15/22 Cole George LISW Lead Hairmasters Manager 06/13/21 10/07/21 Fletcher Up Community Health Worker 06/13/21 09/12/21 Bautista Casey MD [address] [place] [address] Assigned Heart and Vascular Provider 07/21/21 01/16/23 Jasmyn Oliver CHW Community Health Worker 09/13/21 10/07/21 [facility] [address] [place] [address] Assigned MTM Pharmacist 03/22/22 01/02/23 documented as of this encounter
--- OUTSIDE RECORDS SUMMARY | 2025-06-15 22:00 | XMS_ITS | Encounter Summary ---
Author Organization [place] Address [address] [facility] [place] [address] Care Team Providers Care Career Transition Specialist Name Role Phone Niko Resendiz MD Primary Care Provider Carlie Mac MD Primary Care Provide r Angella Mendieta MD Primary Care Provider Julito Banuelos MD Primary Care Provider Julito Banuelos MD Unavailable Julito Banuelos MD Unavailable Aleshia Henriquez RD Unavailable Unavailable Mary Kay Jones RP Unavailable Unavailable Susannah Blankenship [facility] Unavailable Carolyn Huynh [facility] Unavailable [phone] Vika Kevin BOX LINER NET SQL DEVELOPER Unavailable + Marilyn Willard MD Unavailable Carie Varela DO Unavailable [phone] Maylin May NP Unavailable [phone] Marisa Hernandez RN Unavailable Unavailable Vilma Long MD Unavailable + [phone] Yasmeen Pendleton [facility] Unavailable Cole George Unavailable Unavai jonathan Up Fletcher Unavailable Unavailable Ip, Bautista Bell MD Unavailable [phone] TatyanaJasmyn anand W Unavailable [phone] Vika Kevin BOX LINER [facility] Primary Care Prov ider Vika Kevin [facility] Primary Care Prov ider Yasmeen Pendleton [facility] Unavailable + [phone] Vika Kevin [facility] Primary Care Prov ider Reason for Visit * Reason Onset Date Comments Other 01/28/2014 PCP change Encounter Details Date Type Department Care Team (Late st Contact Info) Description 01/28/2014 [facility] Medical Advice [address] [address] Carlie Mac MD [address] [place] [address] Other (PCP change ) Social [...] file Legal Sex Female 3:22 AM HEALTHCARE ANALYST Gender Identity Not on file Sexual [...] COVID-19 12/04/2020 12/04/2020 12/05/2020 6:04 PM HEALTHCARE ANALYST documented as of this encounter Care Teams Career Transition Specialist Relationship Specialty Start Date End Date Niko Resendiz MD [address] [place] [address] PCP - General Internal Medicine 01/11/14 01/29/14 Carlie Mac MD [address] [place] [address] PCP - General Pediatrics 01/30/14 07/17/15 Angella Mendieta MD [address] [place] [address] PCP - General Family Practice 07/18/15 09/11/15 Julito Banuelos MD [address] [place] [address] PCP - General Family Practice 09/12/15 09/23/21 Julito Banuelos MD [address] [place] [address]97 PCP - Assigned PCP 02/17/16 12/28/18 Vika Kevin APRN NET SQL DEVELOPER [address] [place] [address]2527 PCP - General Nurse Practitioner - Family 09/24/21 03/05/22 Vika Kevin APRN NET SQL DEVELOPER [address] [place] [address] 18004 PCP - General Nurse Practitioner - Family 03/18/22 06/18/22 Vika Kevin, JAIME NET SQL DEVELOPER [address] [place] [address] [phone] PCP - General Nurse Practitioner - Family 07/24/22 Julito Banuelos MD [address] [place] [address] 227132 Assigned PCP 02/17/16 07/21/[address] [place] [address] Certified Peer Specialist Dietitian, Registered 04/14/19 Mary Kay Jones, [facility] Pharmacist 08/01/19 04/20/20 Susannah Blankenship, [facility] [address] [facility] [address] [place], [place] [address] Pharmacist Pharmacist 08/08/19 04/15/21 [facility] [address] [place], [place] 47[address] Pharmacist Pharmacist 06/25/20 04/15/21 Vika Kevin, JAIME NET SQL DEVELOPER [address] [place] [address] 278282 Assigned PCP 07/22/20 11/16/24 Marilyn Willard MD [address] [facility] [address] [place], [place] 3728[address] Assigned Surgical Provider 08/17/20 08/16/24 Carie Varela DO [address] [place] [address] Assigned Heart and Vascular Provider 08/17/20 01/19/21 Maylin May NP [address] [facility] [place] [address] Assigned Pediatric Specialist Provider 12/16/20 06/13/22 Marisa Rodrigues, RN Clinic Associate Chief Nurse 01/15/21 02/26/21 Vilma Long MD [address] [place] [address] Assigned Heart and Vascular Provider 01/20/21 07/20/21 [facility] [address] [place] [address] Pharmacist Pharmacist 06/04/21 01/15/22 Cole George LISW Lead Associate Chief Nurse 06/13/21 10/07/21 Fletcher Up Community Health Worker 06/13/21 09/12/21 Bautista Casey MD [address] [place] [address] Assigned Heart and Vascular Provider 07/21/21 01/16/23 Jasmyn Oliver CHW Community Health Worker 09/13/21 10/07/21 [facility] [address] [place] [address] Assigned MTM Pharmacist 03/22/22 01/02/23 documented as of this encounter
--- OUTSIDE RECORDS SUMMARY | 2025-06-15 22:00 | XMS_ITS | Clinical Summary ---
Author Organization [place] Address [address] 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 Take 1 tablet [...] 20 MG tabletIndication s: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 on file Not on file Last Filed Vital Signs Vital Sign Reading Time Taken Comments Blood Pressure 126/62 09/25/2021 12:08 PM FITNESS TRAINER Pulse 102 09/25/2021 12:08 PM FITNESS TRAINER Temperature 36.8 C (98.2 F) 09/25/2021 12:08 PM FITNESS TRAINER Respiratory Rate 16 06/19/2021 3:30 PM CDT Oxygen Saturation 94% 09/25/2021 12:08 PM FITNESS TRAINER Inhaled Oxygen Concentration - - Weight 81.6 [...] 12/25/2020, Additional history exists INFLUENZA VACCINE (#1) 2025 , 07/06/2020, 07/06/2019, Additional history exists ADVANCE [...] COLONOGRAPHY Discontinued FLEX SIG Discontinued HPV VACCINE (No Doses Required) Completed MENINGITIS VACCINE Aged Out No longer eligible based on patient's age to complete this topic sDNA (Cologuard) Discontinued Medical Devices Implanted Type Area Entry Table Operator Device Identifier Shelf Expiration Date Model / Serial / Lot Imp Plate Syn /3 Tubular 85mm 07h Ss 241.37 Implanted:Qty : 1 on 01/12/2021 by Rom Martell MD at [facility] Metallic Hardware/Anc hor Right: Ankle SYNTHES-STRATEC 241.37 / / [id number] Imp Scr Syn Cortex 3.5x16mm Self Tap Ss 204.816 Implanted:Qty : 3 on 01/12/2021 by Rom Martell MD at [facility] Metallic Hardware/Anc hor Right: Ankle SYNTHES-STRATEC 204.816 / / [id number] Imp Scr Syn Can 4.0x14mm Ft Ss 206.014 Implanted:Qty : 1 on 01/12/2021 by Rom Martell MD at [facility] Metallic Hardware/Anc hor Right: Ankle SYNTHES-STRATEC 206.014 / / [id number] Imp Scr Syn Can 4.0x16mm Ft Ss 206.016 Implanted:Qty : 2 on 01/12/2021 by Rom Martell MD at [facility] Metallic Hardware/Anc hor Right: Ankle SYNTHES-STRATEC 206.016 / / [id number] Imp Scr Syn Can 4.0x50mm Ft Ss 206.050 Implanted:Qty : 1 on 01/12/2021 by Rom Martell MD at [facility] Metallic Hardware/Anc hor Right: Ankle SYNTHES-STRATEC 206.050 / / [id number] Procedures Procedure Name Priority Date/Time Associated Diagnosis Comments UA MACROSCOPIC WITH REFLEX TO MICRO AND CULTURE Routine 09/23/2021 3:09 PM FITNESS TRAINER Urinary tract infection Corona catheter in place [...] diabetes, HbA1C goal < 8% (H) ALBUMIN AND CREATININE WITH RATIO RANDOM URINE QUANTITATIVE Routine 08/28/2020 3:27 PM FITNESS TRAINER Hypertension goal BP (blood pressure) < 140/90 [...] DEXA - HIM SCAN 11/02/2015 12:00 AM FITNESS TRAINER EYE EXAM - HIM SCAN Routine 09/25/2014 HC SPIROMETRY, BREATH CAPACITY Routine 03/13/2011 ASTHMA - MODERATE PERSISTENT from Last 3 Months or Most Recently Relevant to Health Maintenance Results * (ABNORMAL) UA reflex to Microscopic and Culture (09/23/2021 3:09 PM FITNESS TRAINER) Color Urine Yellow Colorless, Straw, Light Yellow, Yellow 09/23/2021 3:13 PM FITNESS TRAINER [facility] Appearance Urine Clear Clear 09/23/20 3:13 PM FITNESS TRAINER [facility] Glucose Urine Negative Negative mg/dL 09/23/2021 3:13 PM FITNESS TRAINER [facility] Bilirubin Urine Negative Negative 3:13 PM FITNESS TRAINER [facility] Ketones Urine Negative Negative mg/dL 09/23/2021 3:13 PM FITNESS TRAINER [facility] Specific [place] Urine 1.020 1.003 - 1.035 09/23/2021 3:13 PM FITNESS TRAINER [facility] Blood Urine Trace(A) Negative 09/23/2021 3:13 PM FITNESS TRAINER [facility] pH Urine 6.0 5.0 - 7.0 09/23/2021 3:13 PM FITNESS TRAINER [facility] Protein Albumin Urine 30(A) Negative mg/dL 09/23/2021 3:13 PM FITNESS TRAINER [facility] Urobilinogen Urine 0.2 0.2, 1.0 E.U./dL 09/23/2021 3:13 PM FITNESS TRAINER [facility] Nitrite Urine Positive(A) Negative 09/23/2021 3:13 PM FITNESS TRAINER [facility] Leukocyte Esterase Urine Moderate(A) Negative 09/23/2021 3:13 PM FITNESS TRAINER [facility] Urine URINE SPECIMEN OBTAINED VIA INDWELLING URINARY CATHETER / Unknown Non-blood Collection / Unknown 09/23/2021 3:09 PM FITNESS TRAINER 09/23/2021 3:09 PM FITNESS TRAINER us Julito Banuelos MD LAB - URINE ORDERABLES Final Res ult [facility] [address] [place] [address] [facility] (no [facility] number, 1st floor of clinic) [place] [id number], [facility] [phone] * (ABNORMAL) Comprehensive metabolic panel (BMP + [...] 07/12/2021 9:45 AM CDT us Vika Kevin SURVEYOR INSTRUMENT ASSISTANT STATISTICAL SECRETARY LAB - BLOOD ORDERA BLES Final Result [facility] [address] Lab (no room number, 1st floor of clinic) [place] [address], [facility] [phone] * TSH with free T4 reflex (04/26/2021 12:18 PM CDT) TSH 1.56 0.40 - 4.00 mU/L 04/28/2021 10:28 AM CDT [facility] Blood 04/26/2021 12:1 8 PM CDT 04/26/2021 12:19 PM CDT us Vika Kevin APRN, CNP LAB - BLOOD ORDERA BLES Final Result Performing Organization Address City/[facility]/ZIP Co de Phone Number [facility] [address] [address] * Hemoglobin A1c (04/26/2021 12:18 PM CDT) Hemoglobin A1C 5.5 0 - 5.6 % 04/26/2021 12:54 PM CDT [facility] Comment: Normal <5.7% Prediabetes 5.7-6.4% Diabetes 6.5% or higher - adopted from ADA consensus guidelines. Blood 04/26/2021 12:1 8 PM CDT 04/26/2021 12:19 PM CDT us Vika Kevin APRN, CNP LAB - BLOOD ORDERA BLES Final Result Performing Organization Address [facility] Co de Phone Number [facility] [address] [place] [phone] * (ABNORMAL) Albumin Random Urine Quantitative with Creat Ratio (08/28/2020 3:27 PM FITNESS TRAINER) Creatinine Urine 121 mg/dL 08/29/2020 5:22 PM FITNESS TRAINER [facility] Albumin Urine mg/L 121 mg/L 08/29/2020 6:46 PM FITNESS TRAINER [facility] Albumin Urine mg/g Cr 100.00(H) 0 - 25 mg/g Cr 08/29/2020 6:46 PM FITNESS TRAINER [facility] Urine specimen (specimen) 08/28/2020 3:27 PM FITNESS TRAINER 08/28/2020 3:28 PM FITNESS TRAINER us Vika Kevin APRN, CNP LAB - URINE ORDERA BLES Final Result Performing Organization Address City/[facility]/ZIP Co de Phone Number [facility] [address] [address] * (ABNORMAL) Lipid panel reflex to direct LDL Fasting (07/20/2020 11:48 AM CDT) Cholesterol 103 <200 mg/dL 07/20/2020 6:34 PM CDT [facility] Triglycerides 118 <150 mg/dL 07/20/2020 6:33 PM CDT [facility] HDL Cholesterol 41(L) >49 mg/dL 0 6:39 PM CDT [facility] LDL Cholesterol Calculated 38 <100 mg/dL 07/20/2020 6:39 PM CDT [facility] Comment:Desirable: <100 mg/d l Non HDL Cholesterol 62 <130 mg/dL 07/20/2020 6:39 PM CDT [facility] Blood specimen (specimen) 07/20/2020 11:48 AM CDT 07/20/2020 11:50 AM CDT us Braeden Sow MD LAB - BLOOD ORDERABLES Final Result [facility] [address] [place] [address] * MA Diagnostic Right w/Jefry (04/15/2018 9:55 [...] RECOMMENDED FOLLOW-UP: Annual Mammography. SHAILESH NICHOLAS MD us Julito Banuelos MD IMG MAMMOGRAPHY ORDERABLES Final Result * Foot Exam - HIM Scan (02/25/2018) Narrative Steff Fernandes - 02/25/2018 SEE PROGRESS NOTE [facility] [employer]K[facility] us Provider Outside OTHER Final Result * COLONOSCOPY (05/02/2016 7:39 AM CDT) Pathologist [facility] Patient Name: Marialuisa Cosby Procedure Date: 05/02/2016 [...] and oxygen saturations were monitored continuously. The [id number] was introduced through the anus and advanced [...] pathology results. Procedure Code(s): --- Professional --- 45836, Colonoscopy, flexible, proximal to splenic flexure; with removal of tumor(s), polyp(s), or other lesion(s) by snare technique 78200, Colonoscopy, flexible, proximal to splenic flexure; with directed submucosal injection(s), any substance CPT copyright 2013 [employer]. All rights reserved. The codes documented in this report are preliminary and upon data coder operator review may be revised to meet current [...] Re sult [facility] [address] [place] [address] * DEXA - HIM SCAN (11/02/2015 12:00 AM FITNESS TRAINER) Anatomical Region Laterality Modality Other 11/02/2015 Provider Outside IMG DEXA ORDERABLES Final Resul t * Eye Exam - HIM Scan (09/25/2014) Narrative Dora De León - 09/25/2014 for eye exam, had it done 09/2014 at [facility] [place] Patient Reported OTHER Final Result * Spirometry, Breath Capacity (03/13/2011) Andrew Lu MD PROCEDURES Final Result from Last 3 Months or Most Recently Relevant to Health Maintenance Insurance [facility] MEDICARE ADVANTAGE [facility] MEDICARE ADVANTAGE * Guarantor: Marialuisa Cosby Account Type Relation to Patient Date of Phone Billing Address Medication Therapy Self [address] [place] [address] [facility] MEDICARE ADVANTAGE [facility] MEDICARE ADVANTAGE Advance Directives For more information, please contact: [phone] * Full Code (Latest Code Status on [...] 4:58 AM 07/03/2014 1:24 PM Care Teams Loan Processing Supervisor Relationship Specialty Start Date End Date Vika Kevin APRN CNP [address] [place] [address] PCP - General Nurse Practitioner - Family 07/24/[address] Garage Construction Equipment Mechanic Dietitian, Registered 04/14/19
--- OUTSIDE RECORDS SUMMARY | 2025-06-15 22:00 | XMS_ITS | Encounter Summary ---
Author Organization [place] Address [address] [facility] [place] [address] Care Team Providers Care Service Control Operator Name Role Phone Julito Banuelos MD Primary Care Provider [phone] Unavailable Unavailable Susannah Blankenship [facility] Unavailable [phone] Carolyn Huynh [facility] Unavailable [phone] Vika Kevin APRN [facility] Unavailable + Marilyn Willard MD Unavailable [phone] Carie Varela DO Unavailable [phone] Maylin May NP Unavailable [phone] Marisa Hernandez RN Unavailable Unavailable Vilma Long MD Unavailable + [phone] Yasmeen Pendleton [facility] Unavailable Cole George Unavailable Fletcher Russell Unavailable Unavailable Bautista Casey MD Unavailable [phone] Jasmyn Oliver Unavailable [phone] Vika Kevin APRN [facility] Primary Care Prov ider Vika Kevin APRN [facility] Primary Care Prov ider Yasmeen Pendleton [facility] Unavailable [phone] Vika Kevin APRN RETAIL SUPPORT ASSOCIATE Primary Care Prov ider Encounter Details Date Type Department Care Team (Late st Contact Info) Description 12/10/2020 MyC Medical Advice [facility] [address] [facility] [address] [place] [address] [facility] [address] [place] [address] Social History Tobacco Use Types [...] on file Legal Sex Female 3:22 AM HOGSHEAD LINER Gender Identity Not on file Sexual Orientation Not on file Occupation Industry Job Start Date Job End Date Not on file Not on file Not on file Not on file COVID-19 Exposure Response Date Recorded In the last month, have you been in contact with someone who was confirmed or suspected to have Coronavirus / COVID-19? No / Unsure 12/11/2020 3:56 PM HOGSHEAD LINER documented as of this encounter Plan of Treatment Not on file documented as of this encounter Visit Diagnoses Not on filedocumented in this encounter Additional Health Concerns Assessment Noted Time PHQ-9 Depression Total Score: 10 020 9:30 AM HOGSHEAD LINER documented as of this encounter Care Teams Service Control Operator Relationship Specialty Start Date End Date Julito Banuelos MD [address] [place] [address] PCP - General Family Practice 09/12/15 09/23/21 Vika Kevin APRN RETAIL SUPPORT ASSOCIATE [address] [place] [address] PCP - General Nurse Practitioner - Family 09/24/21 03/05/22 Vika Kevin APRN RETAIL SUPPORT ASSOCIATE [address] [place] [address] PCP - General Nurse Practitioner - Family 03/18/22 06/18/22 Vika Kevin, JAIME RETAIL SUPPORT ASSOCIATE [address] [place] [address] PCP - General Nurse Practitioner - Family 07/24/[address] [place] [address] Grooving Lathe Tender Dietitian, Registered 04/14/19 Susannah Blankenship, [facility] [address] [place] [address] [address] [place] [address] Pharmacist Pharmacist 08/08/19 04/15/21 Carolny Huynh [facility] [address] [place] [address] Pharmacist Pharmacist 06/25/20 04/15/21 Vika Kevin, JAIME RETAIL SUPPORT ASSOCIATE [address] [place] [address] Assigned PCP 07/22/20 11/16/24 Marilyn Willard MD [address] [place] [address] [address] [place], [place] [address] Assigned Surgical Provider 08/17/20 08/16/24 Carie Varela DO [address] [place] [address] Assigned Heart and Vascular Provider 08/17/20 01/19/21 Maylin May NP [address] [place] [address] Assigned Pediatric Specialist Provider 12/16/20 06/13/22 Marisa Rodrigues, RN Clinic Insurance Clerk 01/15/21 02/26/21 Vilma Long MD [address] [place] [address] Assigned Heart and Vascular Provider 01/20/21 07/20/21 [facility] [address] [place] [address] [phone] Pharmacist Pharmacist 06/04/21 01/15/22 Cole George LISW Lead Insurance Clerk 06/13/21 10/07/21 Fletcher pU Community Health Worker 06/13/21 09/12/21 Bautista Casey MD [address] [place] [address] Assigned Heart and Vascular Provider 07/21/21 01/16/23 Jasmyn Oliver CHW Community Health Worker 09/13/21 10/07/21 Yasmeen Pendleton [facility] [address] [place] [address] [phone] Assigned MTM Pharmacist 03/22/22 01/02/23 documented as of this encounter
--- OUTSIDE RECORDS SUMMARY | 2025-06-15 22:00 | XMS_ITS | Encounter Summary ---
Author Organization [place] Address [address] [place] [address] Care Team Providers Care Shoe Folder Name Role Phone Andrew Lu MD Primary Care Provider [phone] Niko Resendiz MD Primary Care Provider Carlie Mac MD Primary Care Provide r Angella Mendieta MD Primary Care Provider Julito Banuelos MD Primary Care Provider [phone] Julito Banuelos MD Unavailable Julito Banuelos MD Unavailable Aleshia Henrqiuez RD Unavailable Unavailable Mary Kay Jones [facility] Unavailable Unavailable Susannah Blankenship [facility] Unavailable [phone] Carolyn Huynh [facility] Unavailable [phone] Vika Kevin APRN MOLD SETTER Unavailable + Marilyn [place] MD Unavailable [phone] Carie Varela DO Unavailable [phone] Maylin May NP Unavailable [phone] Marisa Rodrigues RN Unavailable Unavailable Vilma Long MD Unavailable + [phone] Yasmeen Pendleton [facility] Unavailable + [phone] Cole George Unavailable Fletcher Russell Unavailable Unavailable Bautista Casey MD Unavailable [phone] AnnyJasmyn tracey [facility] Unavailable [phone] Vika Kevin APRN [facility] Primary Care Prov ider Vika Kevin APRN [facility] Primary Care Prov ider Yasmeen Pendleton [facility] Unavailable [phone] [facility] Primary Care Prov ider Encounter Details Date Type Department Care Team (Late st Contact Info) Description 01/10/2014 MyC Medical Advice [facility] - Primary Care [address] [place] [phone] Emilie Dolan MD Social History Tobacco Use [...] Legal Sex Female 3:22 AM DIRECTOR OF UNDERGRADUATE ADMISSIONS Gender Identity Not on file Sexual Orientation [...] 12/04/2020 12/04/2020 12/05/2020 6:04 PM DIRECTOR OF UNDERGRADUATE ADMISSIONS documented as of this encounter Care Teams Shoe Folder Relationship Specialty Start Date End Date Andrew Lu MD XXX RETIRED XXX [address] [place] [address] PCP - General 12/10/01 01/10/14 Niko Resendiz MD [address] [place] [address] PCP - General Internal Medicine 01/11/14 01/29/14 Carlie Mac MD [address] [place] [address] PCP - General Pediatrics 01/30/14 07/17/15 Angella Mendieta MD [address] [place] [address] PCP - General Family Practice 07/18/15 09/11/15 Julito Banuelos MD [address] [place] [address] PCP - General Family Practice 09/12/15 09/23/21 Julito Banuelos MD [address] [place] [address] PCP - Assigned PCP 02/17/16 12/28/18 Vika Kevin APRN MOLD SETTER [address] [place] [address] PCP - General Nurse Practitioner - Family 09/24/21 03/05/22 Vika Kevin APRN MOLD SETTER [address] [place] [address] PCP - General Nurse Practitioner - Family 03/18/22 06/18/22 Vika Kevin APRN MOLD SETTER [address] [place] [address] [phone] PCP - General Nurse Practitioner - Family 07/24/22 Julito Banuelos MD [address] [place] [address] [phone] Assigned PCP 02/17/16 07/21/[address] [place] [address] Ordnance Engineering Technician Dietitian, Registered 04/14/19 Mary Kay Jones, [facility] Pharmacist 08/01/19 04/20/20 [facility] [address] [place] [address] [address] [place], [place] [phone] Pharmacist Pharmacist 08/08/19 04/15/21 [facility] [address] [place], [place] [phone] Pharmacist Pharmacist 06/25/20 04/15/21 Vika Kevin APRN MOLD SETTER [address] [place] [address] [id number] Assigned PCP 07/22/20 11/16/24 Marilyn [place] MD [address] [place] [address] [address] [place] [address] Assigned Surgical Provider 08/17/20 08/16/24 Carie Varela DO [address] [place], [place] 48[address] Assigned Heart and Vascular Provider 08/17/20 01/19/21 Maylin May NP [address] [place] [address] Assigned Pediatric Specialist Provider 12/16/20 06/13/22 Marisa Rodrigues, RN Clinic Molding Machine Operator 01/15/21 02/26/21 Vilma Long MD [address] [place] [address] Assigned Heart and Vascular Provider 01/20/21 07/20/21 Yasmeen Pendleton [facility] [address] [place] [address] Pharmacist Pharmacist 06/04/21 01/15/22 Cole George LISW Lead Molding Machine Operator 06/13/21 10/07/21 Fletcher Up Community Health Worker 06/13/21 09/12/21 Bautista Casey MD [address] [place] [address] Assigned Heart and Vascular Provider 07/21/21 01/16/23 Jasmyn Oliver CHW Community Health Worker 09/13/21 10/07/21 Yasmeen Pendleton [facility] [address] [place] [address] [phone] Assigned MTM Pharmacist 03/22/22 01/02/23 documented as of this encounter
--- OUTSIDE RECORDS SUMMARY | 2025-06-15 22:00 | XMS_ITS | Encounter Summary ---
Author Organization [place] Address [address] [facility] [place] [address] Care Team Providers Care Roller Turner Name Role Phone Cortez Lu MD Primary Care Provider [phone] Niko Resendiz MD Primary Care Provider Carlie Mac MD Primary Care Provide r Angella Mendieta MD Primary Care Provider Julito Banuelos MD Primary Care Provider [phone] Julito Banuelos MD Unavailable Julito Banuelos MD Unavailable Aleshia Henriquez RD Unavailable Unavailable Mary Kay Jones [facility] Unavailable Unavailable Susannah Blankenship [facility] Unavailable [phone] Carolyn Huynh [facility] Unavailable [phone] Vika Kevin APRN [employer] Unavailable + Marilyn Willard MD Unavailable [phone] Carie Varela DO Unavailable +[phone] Maylin May NP Unavailable [phone] Marisa Rodrigues RN Unavailable Unavailable Vilma Long MD Unavailable + [phone] Yasmeen Pendleton [facility] Unavailable + [phone] Cole George Unavailable Fletcher Russell Unavailable Unavailable Bautista Casey MD Unavailable [phone] TatyanaJasmyn anand [facility] Unavailable [phone] Vika Kevin APRN [facility] Primary Care Prov ider Vika Kevin APRN [facility] Primary Care Prov ider Yasmeen Pendleton [facility] Unavailable + [phone] [facility] Primary Care Prov ider Encounter Details Date Type Department Care Team (Late st Contact Info) Description 11/14/2013 Office Visit-[facility] [address] [facility] [address] [place] [address] Cristy Hanna, JAIME [facility] XXX RESIGNED XXX [address] [facility] [address] [place] [id number] Social History Tobacco Use Types Packs/Day Years Used Date Smoking Tobacco: Former Cigarettes 0.3 15 0 10/26/1961 - 10/26/1976 Smokeless Tobacco: Never Alcohol Use Standard Drinks/Week Comments Yes 0 (1 standard drink = 0.6 oz pur e alcohol) 1-2 glasses of wine weekly Comments No Sex and Gender Information Value Date Recorded Sex Assigned at Not on file Legal Sex Female 3:22 AM FIRST AID ATTENDANT Gender Identity Not on file Sexual [...] old Referring Physician: CORTEZ LU Referring Clinic: [facility] CURRENT DIAGNOSES 1. Diabetes Avytxuhq-Zyg-Ciobgtj Dependent, 250.00 2. - Hyperlipidemia mixed, 272.2 [...] daily 10. Nasacort AQ 55 mcg Aerosol, [place], Take as Directed 11. Plavix 75 mg [...] mellitus and dyslipidemia. In December 2012while in [place] she had a non-ST elevation myocardial infarction and underwent angiogram with PCI to the proximal and mid circumflex. LV function has been normal by echocardiogram. Apparently the car diologist in [place] recommended lifelong Plavix. She was last seen by Dr. Davsi in late August. At that point she [...] Illnesses: CAD, s/p [place] Surgeries/Procedures - General: hysterectomy, tonsillectomy Cardiac/Vasc Procedures-Invasive: left heart cath 12/2012 ([place]) Cardiology Procedures-NonInvasive: echocardiogram Jun 2007, myocardial perfusion (Nuc) Jun 2007, echo 12/2012 ([place]), stress echo February 2013 Cardiac Cath Results: 12/2012 [place] Resolute NELIA to the mid and prox [...] - lives with and been living in [place] for 3 months; Place of - [place]; REVIEW OF SYSTEMS GENERAL fatigue, weight loss, [...] takes allergy shots, allergies get worse in [place] but they can get bad in [place] too PHYSICAL EXAMINATION VITAL SIGNS: Blood Pressure: [...] Out COVID-19 12/04/2020 12/04/2020 12/05/2020 6:04 PM FIRST AID ATTENDANT documented as of this encounter Care Teams Roller Turner Relationship Specialty Start Date End Date Cortez Lu MD XXX RETIRED XXX [address] [place] [address] PCP - General 12/10/01 01/10/14 Niko Resendiz MD [address] [address] PCP - General Internal Medicine 01/11/14 01/29/14 Carlie Mac MD [address] [place] [address] PCP - General Pediatrics 01/30/14 07/17/15 Angella Mendieta MD [address] [place] [address] PCP - General Family Practice 07/18/15 09/11/15 Julito Banuelos MD [address] [place] [address] PCP - General Family Practice 09/12/15 09/23/21 Julito Banuelos MD [address] [place] [address] PCP - Assigned PCP 02/17/16 12/28/18 Vika Kevin APRN [employer] [address] [place] [address] PCP - General Nurse Practitioner - Family 09/24/21 03/05/22 Vika Kevin APRN [employer] [address] [place] [address] PCP - General Nurse Practitioner - Family 03/18/22 06/18/22 Vika Kevin APRN [employer] [address] [place] [address] PCP - General Nurse Practitioner - Family 07/24/22 Julito Banuelos MD [address] [place] [address] Assigned PCP 02/17/16 07/21/[address] [place] [address] Blood Bank Worker Dietitian, Registered 04/14/19 Mary Kay Jones [facility] Pharmacist 08/01/19 04/20/20 Susannah Blankenship [facility] [address] [place] [address] 812 [place] [address] Pharmacist Pharmacist 08/08/19 04/15/21 Carolyn Huynh [facility] [address] [place] [address] Pharmacist Pharmacist 06/25/20 04/15/21 Vika Kevin APRN [employer] [address] [place], [place] 386422 Assigned PCP 07/22/20 11/16/24 Marilyn Willard MD [address] [facility] [address] [place], [place] [address] Assigned Surgical Provider 08/17/20 08/16/24 Carie Varela DO [address] [place] [address] Assigned Heart and Vascular Provider 08/17/20 01/19/21 Maylin May NP [address] [place], [place] [id number] Assigned Pediatric Specialist Provider 12/16/20 06/13/22 Marisa Rodrigues, RN Clinic Help Desk Intern 01/15/21 02/26/21 Vilma Long MD [address] [place] [address] Assigned Heart and Vascular Provider 01/20/21 07/20/21 Yasmeen Pendleton [facility] [address] [place], [place] [address] Pharmacist Pharmacist 06/04/21 01/15/22 Cole George LISW Lead Help Desk Intern 06/13/21 10/07/21 Fletcher Up Community Health Worker 06/13/21 09/12/21 Bautista Casey MD [address] [place] [address] Assigned Heart and Vascular Provider 07/21/21 01/16/23 Jasmyn Oliver CHW Community Health Worker 09/13/21 10/07/21 Yasmeen Pendleton [facility] [address] [place], [place] 78[address] Assigned MTM Pharmacist 03/22/22 01/02/23 documented as of this encounter
--- OUTSIDE RECORDS SUMMARY | 2025-06-15 22:00 | XMS_ITS | Encounter Summary ---
Author Organization [place] Address [address] [place] [address] Care Team Providers Care Special Population Paraprofessional Name Role Phone Cortez Lu MD Primary Care Provider [phone] Niko Resendiz MD Primary Care Provider Carlie Mac MD Primary Care Provide r Angella Mendieta MD Primary Care Provider Julito Banuelos MD Primary Care Provider [phone] Julito Banuelos MD Unavailable Julito Banuelos MD Unavailable Aleshia Henriquez RD Unavailable Unavailable Mary Kay Jones [facility] Unavailable Unavailable Susannah Blankenship [facility] Unavailable +[phone] Carolyn Huynh [facility] Unavailable [phone] Vika Kevin APRN [employer] Unavailable + Marilyn Willard MD Unavailable [phone] Carie Varela DO Unavailable [phone] Maylin May NP Unavailable [phone] Marisa Rodrigues RN Unavailable Unavailable Vilma Long MD Unavailable + [phone] Yasmeen Pendleton [facility] Unavailable + [phone] Cole George Unavailable Fletcher Russell Unavailable Unavailable Bautista Casey MD Unavailable [phone] TatyanaJasmyn anand [facility] Unavailable [phone] Vika Kevin APRN [facility] Primary Care Prov ider Vika Kevin APRN [facility] Primary Care Prov ider Yasmeen Pendleton [facility] Unavailable + [phone] Vika [facility] Primary Care Prov ider Encounter Details Date Type Department Care Team (Late st Contact Info) Description 12/23/2013 Office Visit-[facility] [address] [facility] [address] [place] [address] Cristy Hanna, JAIME [facility] XXX RESIGNED XXX [address] [facility] [address] [place] [id number] Social History Tobacco Use Types Packs/Day Years [...] file Legal Sex Female 3:22 AM CHIEF OF POLICE Gender Identity Not on file Sexual Orientation [...] [facility] CURRENT DIAGNOSES 1. Diabetes Rgzmzrsi-Tkl-Reygudm Dependent, 250.00 2. - Hyperlipidemia mixed, 272.2 [...] daily 10. Nasacort AQ 55 mcg Aerosol, [place], Take as Directed 11. Plavix 75 mg [...] of seeing Marialuisa Cosby at the [facility].She is a 73-year-old white female with a history of coronary artery disease, hypertension, diabetes, dyslipidemia, and asthma. She is here today to review her recent event monitor. Her cardiovascular history includes hypertension, diabetes, and dyslipidemia. In December 2012 while visiting in [place], she had a non-ST elevation myocardial infarction and underwent an angiogram withPCI to the proximal and mid circumflex. LV function has been normal by echocardiogram. Apparently, that senior hr generalist recommended lifelong Plavix. 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 Maximum heart [...] Leg syndrome Past Cardiac Illnesses: CAD, s/p [place] Surgeries/Procedures - General: hysterectomy, tonsillectomy Cardiac/Vasc Procedures-Invasive: left heart cath 12/2012 ([place]) Cardiology Procedures-NonInvasive: echocardiogram Jun 2007, myocardial perfusion (Nuc) Jun 2007, echo 12/2012 ([place]), stress echo February 2013 Cardiac Cath Results: 12/2012 [place] Resolute NELIA to the mid and prox [...] - lives with ; Place of - [place]; REVIEW OF SYSTEMS GENERAL feeling much better [...] seen anything life threatening, I would not increaseher beta-leo at this point. She is very [...] COVID-19 12/04/2020 12/04/2020 12/05/2020 6:04 PM CHIEF OF POLICE documented as of this encounter Care Teams Special Population Paraprofessional Relationship Specialty Start Date End Date Cortez Lu MD XXX RETIRED XXX [address] [place] [address] PCP - General 12/10/01 01/10/14 Niko Resendiz MD [address] [place] [address] PCP - General Internal Medicine 01/11/14 01/29/14 Carlie Mac MD 8675 [place] [address] PCP - General Pediatrics 01/30/14 07/17/15 Angella Mednieta MD [address] [place] [address] PCP - General Family Practice 07/18/15 09/11/15 Julito Banuelos MD [address] [place] [address] 407942 PCP - General Family Practice 09/12/15 09/23/21 Julito Banuelos MD [address] [place] [address] PCP - Assigned PCP 02/17/16 12/28/18 Vika Kevin APRN [employer] [address] [place] [address] PCP - General Nurse Practitioner - Family 09/24/21 03/05/22 Vika Kevin APRN [employer] [address] [place] [address] PCP - General Nurse Practitioner - Family 03/18/22 06/18/22 Vika Kevin APRN [employer] [address] [place] [address] 870262 PCP - General Nurse Practitioner - Family 07/24/22 Julito Banuelos MD [address] [place] [address] 092372 Assigned PCP 02/17/16 07/21/[address] [place] [address] Gas Engineer Dietitian, Registered 04/14/19 Mary Kay Jones, [facility] Pharmacist 08/01/19 04/20/20 [facility] [address] [place] [address] 8[address] [place], [place] [address]15 Pharmacist Pharmacist 08/08/19 04/15/21 Carolyn Huynh [facility] [address] [place] [address] Pharmacist Pharmacist 06/25/20 04/15/21 Vika Kevin APRN [employer] [address] [place] [address] 465882 Assigned PCP 07/22/20 11/16/24 Marilyn Willard MD [address] [place] [address] [address] [place], [place] [address] Assigned Surgical Provider 08/17/20 08/16/24 Carie Varela DO [address] [place] [address] Assigned Heart and Vascular Provider 08/17/20 01/19/21 Maylin May NP [address] [place] [address] Assigned Pediatric Specialist Provider 12/16/20 06/13/22 Marisa Rodrigues, RN Clinic Coagulating Drying Supervisor 01/15/21 02/26/21 Vilma Long MD [address] [place] [address] Assigned Heart and Vascular Provider 01/20/21 07/20/21 [facility] [address] [place] [address] 628395 Pharmacist Pharmacist 06/04/21 01/15/22 Cole George LISW Lead Coagulating Drying Supervisor 06/13/21 10/07/21 Fletcher Up Community Health Worker 06/13/21 09/12/21 Bautista Casey MD [address] [place] [address] Assigned Heart and Vascular Provider 07/21/21 01/16/23 Jasmyn Oliver CHW Community Health Worker 09/13/21 10/07/21 Yasmeen Pendleton [facility] [address] [place] [address] Assigned MTM Pharmacist 03/22/22 01/02/23 documented as of this encounter
--- OUTSIDE RECORDS SUMMARY | 2025-06-15 22:00 | XMS_ITS | Encounter Summary ---
Author Organization [place] Address [address] [facility] [place] [address] Care Team Providers Care Wig Maker Name Role Phone Julito Banuelos MD Primary Care Provider [phone] Jultio Banuelos MD Unavailable Aleshia [address]quez RD Unavailable Unavailable Susannah Blankenship [facility] Unavailable [phone] Carolyn Huynh [facility] Unavailable [phone] Vika Kevin APRN SLOT MACHINE FLOOR PERSON Unavailable + Marilyn Willard MD Unavailable [phone] Carie Varela DO Unavailable +[phone] Maylin May NP Unavailable [phone] Marisa Hernandez RN Unavailable Unavailable Vilma Long MD Unavailable + [phone] Yasmeen Pendleton [facility] Unavailable Cole George Unavailable Fletcher Russell Unavailable Unavailable Bautista Casey MD Unavailable [phone] Jasmyn Oliver Unavailable [phone] Vika Kevin APRN SLOT MACHINE FLOOR PERSON Primary Care Prov ider Vika Kevin APRN [facility] Primary Care Prov ider Yasmeen Pendleton [facility] Unavailable + [phone] Vika Kevin APRN [facility] Primary Care [facility] ider Reason for Visit * Reason Comments Medication Refill Encounter Details Date Type Department Care Team (Late st Contact Info) Description 07/03/[address] [address] [place] [address] [place] [address] Medication Refill Social History Tobacco Use [...] file Legal Sex Female 3:22 AM LEAD DATABASE DEVELOPER Gender Identity Not on file Sexual [...] per RN protocol Leslye Steiner RN, BSN [place] Triage documented in this encounter Plan of Treatment Not on file documented as of this encounter Visit Diagnoses Diagnosis Gastroesophageal reflux disease without esophagitis Esophageal reflux documented in this encounter Additional Health Concerns Infection Onset Date Last Indicated Resolved Time Rule Out COVID-19 07/25/2020 07/25/2020 07/26/2020 3:02 PM CDT Rule Out COVID-19 12/04/2020 12/04/2020 12/05/2020 6:04 PM LEAD DATABASE DEVELOPER Assessment Noted Time PHQ-9 Depression Total Score: 12 06/19/ 020 3:35 PM CDT documented as of this encounter Care Teams Wig Maker Relationship Specialty Start Date End Date Julito Banuelos MD [address] [place] [address] PCP - General Family Practice 09/12/15 09/23/21 Vika Kevin APRN SLOT MACHINE FLOOR PERSON [address] [place] [address] PCP - General Nurse Practitioner - Family 09/24/21 03/05/22 Vika Kevin APRN SLOT MACHINE FLOOR PERSON [address] [place] [address] PCP - General Nurse Practitioner - Family 03/18/22 06/18/22 Vika Kevin APRN SLOT MACHINE FLOOR PERSON [address] [place] [address] PCP - General Nurse Practitioner - Family 07/24/22 Julito Banuelos MD [address] [place] [address] Assigned PCP 02/17/16 07/21/[address] [place] [address] Bell Cleaner Dietitian, Registered 04/14/19 Susannah Blankenship, [facility] [address] [place] [address] 812 [place] [address] Pharmacist Pharmacist 08/08/19 04/15/21 Carolyn Huynh [facility] [address] [place], [place] [address] Pharmacist Pharmacist 06/25/20 04/15/21 Vika Kevin APRN SLOT MACHINE FLOOR PERSON [address] [place], [place] 591202 Assigned PCP 07/22/20 11/16/24 Marilyn Willard MD 420 [facility] [address] [place], [place] [address] Assigned Surgical Provider 08/17/20 08/16/24 Carie Varela DO [address] [place] [address] Assigned Heart and Vascular Provider 08/17/20 01/19/21 Maylin May NP [address] [place], [place] [id number] Assigned Pediatric Specialist Provider 12/16/20 06/13/22 Marisa Rodrigues, RN Clinic Flow Worker 01/15/21 02/26/21 Vilma Long MD [address] [place] [address] Assigned Heart and Vascular Provider 01/20/21 07/20/21 Yasmeen Pendleton [facility] [address] [place], [place] [address] Pharmacist Pharmacist 06/04/21 01/15/22 Cole George LISW Lead Flow Worker 06/13/21 10/07/21 Fletcher Up Community Health Worker 06/13/21 09/12/21 Bautista Casey MD [address] [place] [address] Assigned Heart and Vascular Provider 07/21/21 01/16/23 Jasmyn Oliver CHW Community Health Worker 09/13/21 10/07/21 Yasmeen Pendleton [facility] [address] [place] [address] Assigned MTM Pharmacist 03/22/22 01/02/23 documented as of this encounter
--- OUTSIDE RECORDS SUMMARY | 2025-06-15 22:00 | XMS_ITS | Encounter Summary ---
Author Organization [place] Address [address] [facility] [place] [address] Care Team Providers Care Agriculture Professor Name Role Phone Andrew Lu MD Primary Care Provider [phone] Niko Resendiz MD Primary Care Provider Carlie Mac MD Primary Care Provide r Angella Mendieta MD Primary Care Provider Julito Banuelos MD Primary Care Provider [phone] Julito Banuelos MD Unavailable Julito Banuelos MD Unavailable Aleshia Henriquez RD Unavailable Unavailable Mary Kay Jones [facility] Unavailable Unavailable Susannah Blankenship [facility] Unavailable [phone] Carolyn Huynh [facility] Unavailable [phone] Vika Kevin APRN STORE STOCKER Unavailable + Marilyn Willard MD Unavailable [phone] Carie Varela DO Unavailable [phone] Maylin May NP Unavailable [phone] Marisa Rodrigues RN Unavailable Unavailable Vilma Long MD Unavailable + [phone] Yasmeen Pendleton [facility] Unavailable +[phone] Cole George Unavailable Fletcher Russell Unavailable Unavailable Bautista Casey MD Unavailable [phone] AnnyJasmyn tracey [facility] Unavailable [phone] Vika Kevin APRN [facility] Primary Care Prov ider Vika Kevin APRN [facility] Primary Care Prov ider Yasmeen Pendleton [facility] Unavailable [phone] Vika [facility] Primary Care Prov ider Encounter Details Date Type Department Care Team (Late st Contact Info) Description 01/03/2014 MyC Medical Advice [address] [address] Niko Resendiz MD [address] [place] [phone] Social History Tobacco Use Types Packs/Day Years [...] file Legal Sex Female 3:22 AM ORDER CHECKER PACKER PROCESSER Gender Identity Not on file Sexual Orientation [...] COVID-19 12/04/2020 12/04/2020 12/05/2020 6:04 PM ORDER CHECKER PACKER PROCESSER documented as of this encounter Care Teams Agriculture Professor Relationship Specialty Start Date End Date Andrew Lu MD XXX RETIRED XXX [address] [place] [phone] PCP - General 12/10/01 01/10/14 Niko Resendiz MD [address] [place] [address] PCP - General Internal Medicine 01/11/14 01/29/14 Carlie Mac MD [address] [place] [address] PCP - General Pediatrics 01/30/14 07/17/15 Angella Mendieta MD [address] [place] [address] PCP - General Family Practice 07/18/15 09/11/15 Julito Banuelos MD [address] [place] [address] PCP - General Family Practice 09/12/15 09/23/21 Julito Banuelos MD [address] [place] [address] PCP - Assigned PCP 02/17/16 12/28/18 Vika Kevin APRN STORE STOCKER [address] [place] [address] PCP - General Nurse Practitioner - Family 09/24/21 03/05/22 Vika Kevin APRN STORE STOCKER [address] [place] [address] PCP - General Nurse Practitioner - Family 03/18/22 06/18/22 Vika Kevin APRN STORE STOCKER [address] [place] [address] 064312 PCP - General Nurse Practitioner - Family 07/24/22 Julito Banuelos MD [address] [place] [address] 184952 Assigned PCP 02/17/16 07/21/[address] [place] [address] Rubber Tire Curer Dietitian, Registered 04/14/19 [facility] Pharmacist 08/01/19 04/20/20 Susannah Blankenship, [facility] [address] [place] [address] 812 [place], [place] [address] Pharmacist Pharmacist 08/08/19 04/15/21 Carolyn Huynh, [facility] [address] [place] [address] Pharmacist Pharmacist 06/25/20 04/15/21 Vika Kevin APRN STORE STOCKER [address] [place] [address] [phone] Assigned PCP 07/22/20 11/16/24 Marilyn Willard MD [address] [place] [address] 394 [place], [place] 6[address]265 Assigned Surgical Provider 08/17/20 08/16/24 Carie Varela DO [address] [place] [address] Assigned Heart and Vascular Provider 08/17/20 01/19/21 Maylin May NP [address] [place] [address] Assigned Pediatric Specialist Provider 12/16/20 06/13/22 Marisa Rodrigues, RN Clinic Supplemental Nurse 01/15/21 02/26/21 Vilma Long MD [address] [place] [address] Assigned Heart and Vascular Provider 01/20/21 07/20/21 Yasmeen Pendleton [facility] [address] [place] [address] Pharmacist Pharmacist 06/04/21 01/15/22 Cole George LISW Lead Supplemental Nurse 06/13/21 10/07/21 Fletcher Up Community Health Worker 06/13/21 09/12/21 Bautista Casey MD [address] [place] [address] Assigned Heart and Vascular Provider 07/21/21 01/16/23 Jasmyn Oliver CHW Community Health Worker 09/13/21 10/07/21 Yasmeen Pendleton [facility] [address] [place] [address] Assigned MTM Pharmacist 03/22/22 01/02/23 documented as of this encounter
--- OUTSIDE RECORDS SUMMARY | 2025-06-15 22:00 | XMS_ITS | Encounter Summary ---
Author Organization [place] Address [address] [facility] [place] [address] Care Team Providers Care Issue Clerk Name Role Phone Andrew Lu MD Primary Care Provider [phone] Niko Resendiz MD Primary Care Provider Carlie Mac MD Primary Care Provide r Angella Mendieta MD Primary Care Provider Julito Banuelos MD Primary Care Provider [phone] Julito Banuelos MD Unavailable Julito Banuelos MD Unavailable Aleshia Henriquez RD Unavailable Unavailable Mary Kay Jones [facility] Unavailable Unavailable Susannah Blankenship [facility] Unavailable [phone] Carolyn Huynh [facility] Unavailable [phone] Vika Kevin APRN DRILLING ASSISTANT Unavailable + Marilyn Willard MD Unavailable [phone] Carie Varela DO Unavailable [phone] Maylin May NP Unavailable [phone] Marisa Rodrigues RN Unavailable Unavailable Vilma Long MD Unavailable + [phone] Yasmeen Pendleton [facility] Unavailable [phone] Cole George Unavailable Fletcher Russell Unavailable Unavailable Bautista Casey MD Unavailable AnnyJasmyn tracey [facility] Unavailable [phone] Vika Kevin APRN [facility] Primary Care Prov ider Vika Kevin APRN [facility] Primary Care Prov ider Yasmeen Pendleton [facility] Unavailable [phone] [facility] Primary Care Prov ider Encounter Details Date Type Department Care Team (Late st Contact Info) Description 05/25/2007 MyC Medical Advice [address] [phone] Andrew Lu MD XXX RETIRED XXX [address] [place] [address] [phone] Social History Tobacco Use Types Packs/Day Years Used Date Smoking Tobacco: Former Cigarettes 0.3 15 0 10/26/1961 - 10/26/1976 Alcohol Use Standard Drinks/Week Comments Yes 0 (1 standard drink = 0.6 oz pur e alcohol) 1 wine 2x qweek Comments No Sex and Gender Information Value Date Recorded Sex Assigned at Not on file 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 Gender Identity Not on file Sexual Orientation Not on file documented as of this encounter Plan of Treatment Not on file documented as of this encounter Visit Diagnoses Not on filedocumented in this encounter Additional Health Concerns Infection Onset Date Last Indicated Resolved Time Rule Out COVID-19 07/25/2020 07/25/2020 07/26/2020 3:02 PM CDT Rule Out COVID-19 12/04/2020 12/04/2020 12/05/2020 6:04 PM STRIKE OUT 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 documented as of this encounter Care Teams Issue Clerk Relationship Specialty Start Date End Date Andrew Lu MD XXX RETIRED XXX [address] [place] [phone] PCP - General 12/10/01 01/10/14 Niko Resendiz MD [address] [place] [address]66 PCP - General Internal Medicine 01/11/14 01/29/14 Carlie Mac MD [address] [place], [place] [id number] PCP - General Pediatrics 01/30/14 07/17/15 Angella Mendieta MD [address] [place] [address] [id number] PCP - General Family Practice 07/18/15 09/11/15 Julito Banuelos MD [address] [place] [address] 564652 PCP - General Family Practice 09/12/15 09/23/21 Julito Banuelos MD [address] [place] [address] 81322 PCP - Assigned PCP 02/17/16 12/28/18 Vika Kevin APRN DRILLING ASSISTANT [address] [place] [address] 430312 PCP - General Nurse Practitioner - Family 09/24/21 03/05/22 Vika Kevin APRN DRILLING ASSISTANT [address] [place] [address] 219162 PCP - General Nurse Practitioner - Family 03/18/22 06/18/22 Vika Kevin APRN DRILLING ASSISTANT [address] [place] [address] 154872 PCP - General Nurse Practitioner - Family 07/24/22 Julito Banuelos MD [address] [place] [address] 556362 Assigned PCP 02/17/16 07/21/[address] [place] [address] 36271 Security Nurse Dietitian, Registered 04/14/19 Mary Kay Jones, [facility] Pharmacist 08/01/19 04/20/20 [facility] [address] [place] [address] 812 [place], [place] 744965 Pharmacist Pharmacist 08/08/19 04/15/21 [facility] [address] [place] [address] Pharmacist Pharmacist 06/25/20 04/15/21 Vika Kevin APRN DRILLING ASSISTANT [address] [place] [address] 690392 Assigned PCP 07/22/20 11/16/24 Marilyn Willard MD [address] [place] [address] [address] [place], [place] 898505 Assigned Surgical Provider 08/17/20 08/16/24 Carie Varela DO [address] [place] [address] Assigned Heart and Vascular Provider 08/17/20 01/19/21 Maylin May NP [address] [place] [address] Assigned Pediatric Specialist Provider 12/16/20 06/13/22 Marisa Rodrigues, RN Clinic Internal Controls Manager 01/15/21 02/26/21 Vilma Long MD [address] [place] [address] Assigned Heart and Vascular Provider 01/20/21 07/20/21 Yasmeen Pendleton [facility] [address] [place] [address] Pharmacist Pharmacist 06/04/21 01/15/22 Cole George LISW Lead Internal Controls Manager 06/13/21 10/07/21 Fletcher Up Community Health Worker 06/13/21 09/12/21 Bautista Casey MD [address] [place] [address] Assigned Heart and Vascular Provider 07/21/21 01/16/23 Jasmyn Oliver CHW Community Health Worker 09/13/21 10/07/21 Yasmeen Pendleton [facility] [address] [place] [address] Assigned MTM Pharmacist 03/22/22 01/02/23 documented as of this encounter
[2025-06-15] MEDS: DOXYCYCLINE HYCLATE 100 MG PO (22:49)
== END 2025-06-15 23:08 | disposition home or self-care (01) ==
LOC: ED 21:56
PROVIDERS: Emergency Provider Student in an Organized Health Care Education/Training Program; PCP Family Medicine
DX: Z46.6 Encounter for fitting and adjustment of urinary device (principal); N30.00 Acute cystitis without hematuria
CPT/HCPCS: 51702; 81001; 87086; 99282; 99283; A9270

== ENCOUNTER 2025-07-24 10:45 | Outpatient (REF) | payer MEDICARE, SELFPAY ==
[2025-07-24 12:03] LABS: Appearance Urine Cloudy (Clear)
== END 2025-07-24 10:46 | disposition home or self-care (01) ==
LOC: NPINS 10:45
PROVIDERS: PCP Family Medicine; Visit Provider Nurse Practitioner Gerontology
DX: N30.00 Acute cystitis without hematuria (principal)
CPT/HCPCS: 81001; 81003; 87086

== ENCOUNTER 2025-08-10 11:03 | Outpatient (REF) | payer MEDICARE, SELFPAY ==
[2025-08-10 11:13] LABS: Appearance Urine Clear (Clear)
== END 2025-08-10 11:04 | disposition home or self-care (01) ==
LOC: NPINS 11:03
PROVIDERS: PCP Family Medicine; Visit Provider Nurse Practitioner Gerontology
DX: N35.92 Unspecified urethral stricture, female (principal)
CPT/HCPCS: 81001; 87086

== ENCOUNTER 2025-08-24 10:21 | Outpatient (REF) | payer MEDICARE, SELFPAY ==
[2025-08-24 10:48] LABS: Appearance Urine Slightly Cloudy (Clear)
== END 2025-08-24 10:22 | disposition home or self-care (01) ==
LOC: NPINS 10:21
PROVIDERS: PCP Family Medicine; Visit Provider Nurse Practitioner Gerontology
DX: N35.92 Unspecified urethral stricture, female (principal)
CPT/HCPCS: 81001; 87086

== ENCOUNTER 2025-09-08 14:21 | Outpatient (REF) | payer MEDICARE, SELFPAY ==
[2025-09-08 14:33] LABS: Appearance Urine Clear (Clear)
== END 2025-09-08 14:22 | disposition home or self-care (01) ==
LOC: NPINS 14:21
PROVIDERS: PCP Family Medicine; Visit Provider Nurse Practitioner Gerontology
DX: N35.92 Unspecified urethral stricture, female (principal)
CPT/HCPCS: 81001; 87086

== ENCOUNTER 2025-09-16 12:03 | Emergency (ER) | payer MEDICARE, SELFPAY ==
--- OUTSIDE RECORDS SUMMARY | 2019-12-05 05:03 | XMS_ITS | Continuity of Care Document ---
Author Organization [facility] Address [address] [address] [place] [address] Phone Care Team Providers Care Heat Treater Name Role Phone Magdaleno Anna MD Unavailable Unavailable Procedures Procedure Date Colonoscopy W/Submucosal Injection Colonoscopy Flex; W/remov Les- 16 Advance Directives Directive Yes / No Effective Date File Name No Information Encounters Encounter Description Practice Location Reason(s) For Visit Diagnoses Date Provider Providers Copied on Encounter [facility], [address] [address], [place], [place], [id number], [place] tel:[phone] [facility] No Information Wilfrido Dolan. [address] [place] [address], [facility] [address], [place], [place], [id number], [place]. tel:[phone] [facility], [address] [address], [place], [place], [address], [place] tel:[phone] [facility] No Information Mohan Sands. [address] [place] [address], [facility] [address], [place], [place], [address], [place]. tel:[phone] Referring Provider: Julito Martin, [address] [place], [address]. tel:[phone] Family History Family Member Type Diagnosis Age At Onset No Information Payers Payer name Insurance type Covered green party ID Authoriza tion(s) Blue Cross [place] Blue BL [id number] Social History Type Description Quantity Date Captured Comments Sex Female Smoking Status No Information Chief Complaint And Reason For Visit No Information Reason For Referral Reason For Referral No Information History Of Present Illness Encounter Date Complaint History Of Prese nt Illness No Information Functional Status Date Functional Assessmen t No Information Instructions Date Instruction Additional Infor mation No Information Assessments Type Assessment Date No Information Patient Care Teams Name Effective Dates (start - stop) Status Members No Information
--- OUTSIDE RECORDS SUMMARY | 2019-12-05 05:03 | XMS_ITS | Continuity of Care Document ---
Author Organization [facility] Address [address] [address] [place] [address] Phone Care Team Providers Care State Archivist Name Role Phone Magdaleno Anna MD Unavailable Unavailable Procedures Procedure Date Colonoscopy W/Submucosal Injection Colonoscopy Flex; W/remov Les- 16 Advance Directives Directive Yes / No Effective Date File Name No Information Encounters Encounter Description Practice Location Reason(s) For Visit Diagnoses Date Provider Providers Copied on Encounter [facility], [address] [address], [place], [place], [address], [place] tel:[phone] [facility] No Information Wilfrido Dolan. [address] [place] [address], [facility] [address], [place], [place], [address], [place]. tel:[phone] [facility], [address] [address], [place], [place], [address], [place] tel:[phone] [facility] No Information Mohan Sands. [address] [place] [address], [facility] [address], [place], [place], [address], [place]. tel:[phone] Referring Provider: Julito Martin, [address] [place], [address]. tel:[phone] Family History Family Member Type Diagnosis Age At Onset No Information Payers Payer name Insurance type Covered republican ID Authoriza tion(s) Blue Cross [place] Blue BL [id number] Social History Type Description Quantity Date Captured [...]
[2025-09-16 12:06] VITALS: BP 122/68; PULSE 68; RESP 18; TEMP 36; O2SAT 98
--- OUTSIDE RECORDS SUMMARY | 2025-09-16 12:06 | XMS_ITS | Encounter Summary ---
Author Organization [place] Address [address] [facility] [place] [address] Care Team Providers Care User Support Specialist Name Role Phone Andrew Lu MD Primary Care Provider [phone] Niko Resendiz MD Primary Care Provider Carlie Mac MD Primary Care Provide r Angella Mendieta MD Primary Care Provider Julito Banuelos MD Primary Care Provider [phone] Julito Banuelos MD Unavailable Julito Banuelos MD Unavailable Aleshia Henriquez RD Unavailable Unavailable Mary Kay Jones [facility] Unavailable Unavailable Susannah Blankenship [facility] Unavailable [phone] Carolyn Huynh [facility] Unavailable [phone] Vika Kevin APRN SITE PLANNER Unavailable + Marilyn Willard MD Unavailable [phone] Carie Varela DO Unavailable [phone] Maylin May NP Unavailable [phone] Marisa Rodrigues RN Unavailable Unavailable Vilma Long MD Unavailable + [phone] Yasmeen Pendleton [facility] Unavailable + [phone] Cole George Unavailable Fletcher Russell Unavailable Unavailable Bautista Casey MD Unavailable [phone] Jasmyn Oliver [facility] Unavailable [phone] Vika Kevin APRN [facility] Primary Care Prov ider Vika Kevin APRN [facility] Primary Care Prov ider Yasmeen Pendleton [facility] Unavailable [phone] Vika Kevin APRN [facility] Primary Care Prov ider Reason for Referral * Referral not Required - Closed Specialty Diagnoses / Procedures Referred By Contkateryna t Referred To Contact Diagnoses CAD (coronary artery disease) Andrew Lu MD XXX RETIRED XXX [address] [place] [phone] Phone: tel: fax: [facility] [address] [facility] [address] [facility] [place] [address] Phone: tel: fax: Referral ID Status Reason Start Date Expiration Date Visits Re quested Visits Authorized [id number] Closed 01/11/2013 07/10/2013 1 1 Comments Your provider has referred you to: [facility]: [facility] Heart Karen [phone] Please be aware that coverage of these [...] where they were done to arrange for picker tender helper prior to your scheduled appointment. Any new CT, MRI or other procedures ordered by your specialist must be performed at a [place] facility or coordinated by your clinic's referral office. 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 Gender Identity Not on file Sexual [...] Coronary atherosclerosis of unspecified type of vessel, [place] or graft documented in this encounter Additional Health Concerns Infection Onset Date Last Indicated Resolved Time Rule Out COVID-19 07/25/2020 07/25/2020 07/26/2020 3:02 PM CDT Rule Out COVID-19 12/04/2020 12/04/2020 12/05/2020 6:04 PM BACK ROLL LATHE OPERATOR documented as of this encounter Care Teams User Support Specialist Relationship Specialty Start Date End Date Andrew Lu MD XXX RETIRED XXX [address] [place] [phone] PCP - General 12/10/01 01/10/14 Niko Resendiz MD [address] [address] PCP - General Internal Medicine 01/11/14 01/29/14 Carlie Mac MD [address] [place] [address] PCP - General Pediatrics 01/30/14 07/17/15 Angella Mendieta MD [address] [place] [address] PCP - General Family Practice 07/18/15 09/11/15 Julito Banuelos MD [address] [place] [address]451 PCP - General Family Practice 09/12/15 09/23/21 Julito Banuelos MD [address] [place] [address] 38712 PCP - Assigned PCP 02/17/16 12/28/18 Vika Kevin APRN SITE PLANNER [address] [place] [address] 18849 PCP - General Nurse Practitioner - Family 09/24/21 03/05/22 Vika Kevin APRN SITE PLANNER [address] [place] [address] 62381 PCP - General Nurse Practitioner - Family 03/18/22 06/18/22 Vika Kevin APRN SITE PLANNER [address] [place] [address] 019562 PCP - General Nurse Practitioner - Family 07/24/22 Julito Banuelos MD [address] [place] [address] 105372 Assigned PCP 02/17/16 07/21/20 Aleshia Henriquez, DAVE [address] [place] [address]1 Lidar Technician Dietitian, Registered 04/14/19 Mary Kay Jones, [facility] Pharmacist 08/01/19 04/20/20 Susannah Blankenship, [facility] [address] [place] [address] 8[address] [place], [place] 7[address]95 Pharmacist Pharmacist 08/08/19 04/15/21 [facility] [address] [place], [place] 07[address] Pharmacist Pharmacist 06/25/20 04/15/21 Vika Kevin APRN SITE PLANNER [address] [place] [address] [phone] Assigned PCP 07/22/20 11/16/24 Marilyn Willard MD [address] [place] [address] 394 [place], [place] 839725 Assigned Surgical Provider 08/17/20 08/16/24 Carie Varela DO [address] [place], [place] 958595 Assigned Heart and Vascular Provider 08/17/20 01/19/21 Maylin May NP [address] [place] [address] Assigned Pediatric Specialist Provider 12/16/20 06/13/22 Marisa Rodrigues, RN Clinic Tongue Binder 01/15/21 02/26/21 Vilma Long MD [address] [place] [address] Assigned Heart and Vascular Provider 01/20/21 07/20/21 Yasmeen Pendleton [facility] [address] [place] [address] Pharmacist Pharmacist 06/04/21 01/15/22 Cole George LISW Lead Tongue Binder 06/13/21 10/07/21 Fletcher Up Community Health Worker 06/13/21 09/12/21 Bautista Casey MD [address] [place] [address] Assigned Heart and Vascular Provider 07/21/21 01/16/23 Jasmyn Oliver CHW Community Health Worker 09/13/21 10/07/21 Yasmeen Pendleton [facility] [address] [place], [place] 2515[address] Assigned MTM Pharmacist 03/22/22 01/02/23 documented as of this encounter
--- OUTSIDE RECORDS SUMMARY | 2025-09-16 12:06 | XMS_ITS | Encounter Summary ---
Author Organization [place] Address [address] [facility] [place] [address] Care Team Providers Care Cfo Name Role Phone Julito Banuelos MD Primary Care Provider [phone] Julito Banuelos MD Unavailable Aleshia Henriquez RD Unavailable Unavailable Mary Kay Jones [facility] Unavailable Unavailable Susannah Blankenship [facility] Unavailable Carolyn Huynh [facility] Unavailable [phone] Vika Kevin APRN THERMAL CUTTER HAND Unavailable + Marilyn Willard MD Unavailable Carie Varela DO Unavailable [phone] Maylin May NP Unavailable [phone] Marisa Hernandez RN Unavailable Unavailable Vilma Long MD Unavailable Yasmeen Pendleton [facility] Unavailable Cole George Unavailable Fletcher Russell Unavailable Unavailable Bautista Casey MD Unavailable [phone] Jasmyn Oliver CHW Unavailable [phone] Vika Kevin APRN THERMAL CUTTER HAND Primary Care Prov ider Vika Kevin APRN [facility] Primary Care Prov ider Yasmeen Pendleton [facility] Unavailable [phone] Vika Kevin APRN [facility] Primary Care Prov ider Reason for Visit * Reason Onset Date Comments Refill Request 09/22/2019 Encounter Details Date Type Department Care Team (Late st Contact Info) Description 09/22/2019 MyC Refill [facility] [address] [facility] [address] [place] [phone] Carie Varela DO [address] [place], [place] [address] Refill Request Social History Tobacco Use Types [...] on file 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 Gender Identity Not on file Sexual Orientation Not on file Occupation Industry Job Start Date Job End Date Not on file Not on file Not on file Not on file documented as of this encounter Plan of Treatment Not on file documented as of this encounter Visit Diagnoses Diagnosis Coronary artery disease involving kas[place] coronary artery of [place] heart without angina pectoris Unstable angina (H) Intermediate coronary syndrome documented in this encounter Additional Health Concerns Infection Onset Date Last Indicated Resolved Time Rule Out COVID-19 07/25/2020 07/25/2020 07/26/2020 3:02 PM CDT Rule Out COVID-19 12/04/2020 12/04/2020 12/05/2020 6:04 PM STEM SETTER Assessment Noted Time PHQ-9 Depression Total Score: 8 07/18/20 19 12:06 PM CDT documented as of this encounter Care Teams Cfo Relationship Specialty Start Date End Date Julito Banuelos MD [address] [place] [address] PCP - General Family Practice 09/12/15 09/23/21 Vika Kevin APRN THERMAL CUTTER HAND [address] [place] [address] 47045 PCP - General Nurse Practitioner - Family 09/24/21 03/05/22 Vika Kevin APRN THERMAL CUTTER HAND [address] [place] [address] 60866 PCP - General Nurse Practitioner - Family 03/18/22 06/18/22 Vika Kevin APRN THERMAL CUTTER HAND [address] [place] [address]79 PCP - General Nurse Practitioner - Family 07/24/22 Julito Banuelos MD [address] [place] [address] Assigned PCP 02/17/16 07/21/[address] [place] [address] Vendor Relationship Manager Dietitian, Registered 04/14/19 Mary Kay Jones [facility] Pharmacist 08/01/19 04/20/20 Susannah Blankenship [facility] [address] [place] [address] 812 [place] [address] Pharmacist Pharmacist 08/08/19 04/15/21 Carolyn Huynh [facility] [address] [place] [address] Pharmacist Pharmacist 06/25/20 04/15/21 Vika Kevin, PATIENT CARE NURSING ASSISTANT THERMAL CUTTER HAND [address] [place], [place] 0[address]662 Assigned PCP 07/22/20 11/16/24 Marilyn Willard MD [address] [facility] [address] [place], [place] 560925 Assigned Surgical Provider 08/17/20 08/16/24 Carie Varela DO [address] [place] [address] Assigned Heart and Vascular Provider 08/17/20 01/19/21 Maylin May NP [address] [place], [place] 50650116 Assigned Pediatric Specialist Provider 12/16/20 06/13/22 Marisa Rodrigues, RN Clinic Senior Dot Net Developer 01/15/21 02/26/21 Vilma Long MD [address] [place] [address] Assigned Heart and Vascular Provider 01/20/21 07/20/21 Yasmeen Pendleton [facility] [address] [place] [address] Pharmacist Pharmacist 06/04/21 01/15/22 Cole George LISW Lead Senior Dot Net Developer 06/13/21 10/07/21 Fletcher Up Community Health Worker 06/13/21 09/12/21 Bautista Casey MD [address] [place] [address] Assigned Heart and Vascular Provider 07/21/21 01/16/23 Jasmyn Oliver CHW Community Health Worker 09/13/21 10/07/21 Yasmeen Pendleton, [facility] [address] [place], [place] [address] Assigned MTM Pharmacist 03/22/22 01/02/23 documented as of this encounter
--- OUTSIDE RECORDS SUMMARY | 2025-09-16 12:06 | XMS_ITS | Encounter Summary ---
Author Organization [place] Address [address] [facility] [place] [address] Care Team Providers Care Inside Sales Executive Name Role Phone Julito Banuelos MD Primary Care Provider [phone] Julito Banuelos MD Unavailable Aleshia Henriquez RD Unavailable Unavailable Mary Kay Jones [facility] Unavailable Unavailable Susannah Blankenship [facility] Unavailable Carolyn Huynh [facility] Unavailable [phone] Vika Kevin APRN ROOM INSPECTOR Unavailable + Marilyn Willard MD Unavailable Carie Varela DO Unavailable [phone] Maylin May NP Unavailable [phone] Marisa Hernandez RN Unavailable Unavailable Vilma Long MD Unavailable Yasmeen Pendleton [facility] Unavailable Cole George Unavailable Fletcher Russell Unavailable Unavailable Bautista Casey MD Unavailable Jasmyn Oliver CHW Unavailable [phone] Vika Kevin APRN ROOM INSPECTOR Primary Care Prov ider Vika Kevin APRN [facility] [employer] [employer] [facility] Primary Care Prov ider Yasmeen Pendleton [facility] Unavailable [phone] Vika Kevin APRN [employer] Primary Care Prov ider Reason for Visit * Reason Onset Date Comments Refill Request 09/11/2019 Encounter Details Date Type Department Care Team (Late st Contact Info) Description 09/11/2019 MyC Refill [address] [place] [address] Julito Banuelos MD [address] [place] [address] Refill Request Social History Tobacco [...] Legal Sex Female 3:22 AM DEAN OF GRADUATE STUDIES Gender Identity Not on file Sexual Orientation Not on file Occupation Industry Job Start Date Job End Date Not on file Not on file Not on file Not on file documented as of this encounter Miscellaneous Notes * Telephone Encounter - Shanelle Corona RN - 09/13/2019 11:06 AM DEAN OF GRADUATE STUDIES This was discontinued due to side effects. Sent mychart to patient asking if she is still taking. Ruth Muñoz RN [facility] [phone] OF GRADUATE STUDIES * Telephone Encounter - Sandra Jesús - 09/12/2019 9:28 AM CST Requested Prescriptions Pending Prescriptions Disp Refills ??? donepezil (ARICEPT) 5 MG tablet Last Written Prescription Date: 08.08.19 Last Fill Quantity: 30 tablet, # refills: 3 Last office visit: 08/08/2019 with prescribing provider: Julito Banuelos MD Future Office Visit: Next 5 appointments (look out 90 days) Sep 12, 2019 2:00 PM DEAN OF GRADUATE STUDIES SHORT with Susannah Blankenship [facility] [address] [facility] [address] [facility] [phone] Sep 23, 2019 10:50 AM DEAN OF GRADUATE STUDIES Office Visit with Julito Banuelos MD [facility] [address] [place] [phone] 30 tablet 3 Sig: Take 1 tablet [...] is 18 years of age or older OF GRADUATE STUDIES documented in this encounter Plan of Treatment Not on file documented as of this encounter Visit Diagnoses Diagnosis 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) documented in this encounter Additional Health Concerns Infection Onset Date Last Indicated Resolved Time Rule Out COVID-19 07/25/2020 07/25/2020 07/26/2020 3:02 PM CDT Rule Out COVID-19 12/04/2020 12/04/2020 12/05/2020 6:04 PM DEAN OF GRADUATE STUDIES Assessment Noted Time PHQ-9 Depression Total Score: 8 07/18/20 19 12:06 PM CDT documented as of this encounter Care Teams Inside Sales Executive Relationship Specialty Start Date End Date Julito Banuelos MD [address] [place] [address] [phone] PCP - General Family Practice 09/12/15 09/23/21 Vika Kevin APRN ROOM INSPECTOR [address] [place] [address] [phone] PCP - General Nurse Practitioner - Family 09/24/21 03/05/22 Vika Kevin APRN ROOM INSPECTOR [address] [place] [address] PCP - General Nurse Practitioner - Family 03/18/22 06/18/22 Vika Kevin APRN ROOM INSPECTOR [address] [place] [address] [phone] PCP - General Nurse Practitioner - Family 07/24/22 Julito Banuelos MD [address] [place] [address] 194972 Assigned PCP 02/17/16 07/21/[address] [place] [address] Small Business Banking Officer Dietitian, Registered 04/14/19 Mary Kay Jones, [facility] Pharmacist 08/01/19 04/20/20 Susannah Blankenship, [facility] [address] [place] [address] 812 [place] [address] Pharmacist Pharmacist 08/08/19 04/15/21 Carolyn Huynh [facility] [address] [place] [address] Pharmacist Pharmacist 06/25/20 04/15/21 Vika Kevin APRN ROOM INSPECTOR [address] [place] [address] Assigned PCP 07/22/20 11/16/24 Marilyn Willard MD [address] [facility] [address] [place] [address] Assigned Surgical Provider 08/17/20 08/16/24 Carie Varela DO [address] [place] [address] Assigned Heart and Vascular Provider 08/17/20 01/19/21 Maylin May NP [address] [place] [address] Assigned Pediatric Specialist Provider 12/16/20 06/13/22 Marisa Rodrigues, RN Clinic Clinical Rehab Specialist 01/15/21 02/26/21 Vilma Long MD [address] [place] [address] Assigned Heart and Vascular Provider 01/20/21 07/20/21 Yasmeen Pendleton [facility] [address] [place] [address] Pharmacist Pharmacist 06/04/21 01/15/22 Cole George LISW Lead Clinical Rehab Specialist 06/13/21 10/07/21 Fletcher Up Community Health Worker 06/13/21 09/12/21 Bautista Casey MD [address] [place] [address] Assigned Heart and Vascular Provider 07/21/21 01/16/23 Jasmyn Oliver CHW Community Health Worker 09/13/21 10/07/21 Yasmeen Pendleton [facility] [address] [place] [address] Assigned MTM Pharmacist 03/22/22 01/02/23 documented as of this encounter
--- OUTSIDE RECORDS SUMMARY | 2025-09-16 12:06 | XMS_ITS | Encounter Summary ---
Author Organization [place] Address [address] [facility] [place] [address] Care Team Providers Care Meat Seafood Associate Name Role Phone Julito Banuelos MD Primary Care Provider [phone] Julito Banuelos MD Unavailable Aleshia Henriquez RD Unavailable Unavailable Mary Kay Jones [facility] Unavailable Unavailable Susannah Blankenship [facility] Unavailable Carolyn Huynh [facility] Unavailable [phone] Vika Kevin APRN SLOT SERVICE SPECIALIST Unavailable + Marilyn Willard MD Unavailable Carie Varela DO Unavailable [phone] Maylin May NP Unavailable [phone] Marisa Hernandez RN Unavailable Unavailable Vilma Long MD Unavailable Yasmeen Pendleton [facility] Unavailable Cole George Unavailable Fletcher Russell Unavailable Unavailable Bautista Casey MD Unavailable [phone] Jasmyn Oliver CHW Unavailable [phone] Vika Kevin APRN SLOT SERVICE SPECIALIST Primary Care Prov ider Vika Kevin APRN [facility] Primary Care Prov ider Yasmeen Pendleton [facility] Unavailable + [phone] Vika Kevin APRN [facility] Primary Care Prov ider Reason for Visit * Reason Comments Medication Refill Encounter Details Date Type Department Care Team (Late st Contact Info) Description 09/07/[address] [phone] [place] [address] [place] [address] [id number] Medication Refill Social History Tobacco Use Types [...] on file Legal Sex Female 3: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 Panda Bradshaw RN [place] Triage CUTTING 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 * Telephone Encounter - Jesús Flores [...] 90 days) Sep 12, 2019 2:00 PM EDGE CUTTING 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 SHORT with Susannah Blankenship [facility] ([facility]) [address] [facility] [address] [facility] [id number] Sep 23, 2019 10:50 AM EDGE CUTTING 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 Office Visit with Julito Banuelos MD [facility] [address] [place] [address] [phone] g 3 Sig: SPRAY TWO SPRAYS [...] & Orders section of the refill encounter. CUTTING 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 documented in this encounter Plan of Treatment Not on file documented as of this encounter Visit Diagnoses Diagnosis Environmental allergies Allergic rhinitis, cause unspecified documented in this encounter Additional Health Concerns Infection Onset Date Last Indicated Resolved Time Rule Out COVID-19 07/25/2020 07/25/2020 07/26/2020 3:02 PM CDT Rule Out COVID-19 12/04/2020 12/04/2020 12/05/2020 6:04 PM EDGE CUTTING 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 Assessment Noted Time PHQ-9 Depression Total Score: 8 07/18/20 19 12:06 PM CDT documented as of this encounter Care Teams Meat Seafood Associate Relationship Specialty Start Date End Date Julito Banuelos MD [address] [place] [address] [id number] PCP - General Family Practice 09/12/15 09/23/21 Vika Kevin APRN SLOT SERVICE SPECIALIST [address] [place] [address] [phone] PCP - General Nurse Practitioner - Family 09/24/21 03/05/22 Vika Kevin APRN SLOT SERVICE SPECIALIST [address] [place] [address] [phone] PCP - General Nurse Practitioner - Family 03/18/22 06/18/22 Vika Kevin APRN SLOT SERVICE SPECIALIST [address] [place] [address] 599492 PCP - General Nurse Practitioner - Family 07/24/22 Julito Banuelos MD [address] [place] [address] [phone] Assigned PCP 02/17/16 07/21/[address] [place] [address] 69286 Retail Sales Associate Dietitian, Registered 04/14/19 Mary Kay Jones [facility] Pharmacist 08/01/19 04/20/20 Susannah Blankenship, [facility] [address] [place] [address] [address] [place] [address] Pharmacist Pharmacist 08/08/19 04/15/21 Carolyn Huynh [facility] [place] [address] Pharmacist Pharmacist 06/25/20 04/15/21 Vika Kevin APRN SLOT SERVICE SPECIALIST [address] [place] [address] 38192 Assigned PCP 07/22/20 11/16/24 Marilyn Willard MD [address] [place] [address]21 Assigned Surgical Provider 08/17/20 08/16/24 Carie Varela DO [address] [place] [address] Assigned Heart and Vascular Provider 08/17/20 01/19/21 Maylin May NP [address] [place] [address] Assigned Pediatric Specialist Provider 12/16/20 06/13/22 Marisa Rodrigues, RN Clinic Pre Planning Advisor 01/15/21 02/26/21 Vilma Long MD [address] [place] [address] Assigned Heart and Vascular Provider 01/20/21 07/20/21 Yasmeen Pendleton [facility] [address] [place] [address] Pharmacist Pharmacist 06/04/21 01/15/22 Cole George LISW Lead Pre Planning Advisor 06/13/21 10/07/21 Fletcher Up Community Health Worker 06/13/21 09/12/21 Bautista Casey MD [address] [place] [address] Assigned Heart and Vascular Provider 07/21/21 01/16/23 Jasmyn Oliver CHW Community Health Worker 09/13/21 10/07/21 Yasmeen Pendleton [facility] [address] [place] [address] Assigned MTM Pharmacist 03/22/22 01/02/23 documented as of this encounter
--- OUTSIDE RECORDS SUMMARY | 2025-09-16 12:06 | XMS_ITS | Encounter Summary ---
Author Organization [place] Address [address] [facility] [place] [address] Care Team Providers Care Materials Tech Name Role Phone Andrew Lu MD Primary Care Provider [phone] Niko Resendiz MD Primary Care Provider Carlie Mac MD Primary Care Provide r Angella Mendieta MD Primary Care Provider Julito Banuelos MD Primary Care Provider [phone] Julito Bnauelos MD Unavailable Julito Banuelos MD Unavailable Aleshia Henriqeuz RD Unavailable Unavailable Mary Kay Jones [facility] Unavailable Unavailable Susannah Blankenship [facility] Unavailable [phone] Carolyn Huynh [facility] Unavailable [phone] Vika Kevin APRN CHIEF SCIENCE OFFICER Unavailable + Marilyn Willard MD Unavailable [phone] Carie Varela DO Unavailable [phone] Maylin May NP Unavailable [phone] Marisa Rodrigues RN Unavailable Unavailable Vilma Long MD Unavailable + [phone] Yasmeen Pendleton [facility] Unavailable [phone] Cole George Unavailable Fletcher Russell Unavailable Unavailable Bautista Casey MD Unavailable DemetriusJasmyn wright [facility] Unavailable [phone] Vika Kevin APRN [facility] Primary Care Prov ider Vika Kevin APRN [facility] Primary Care Prov ider Yasmeen Pendleton [facility] Unavailable [facility] Primary Care Prov ider Encounter Details Date Type Department Care Team (Late st Contact Info) Description 11/07/2012 MyC Medical Advice [address] [phone] Andrew Lu MD XXX RETIRED XXX [address] [phone] Social History Tobacco Use Types Packs/Day Years Used Date Smoking Tobacco: Former Cigarettes 0.3 15 0 10/26/1961 - 10/26/1976 Smokeless Tobacco: Never Alcohol Use Standard Drinks/Week Comments Yes 0 (1 standard drink = 0.6 oz pur e alcohol) 1-2 glasses of wine weekly Comments No Sex and Gender Information Value Date Recorded Sex Assigned at Not on file Legal Sex Female 3:22 AM BLEACHER SULFITE PULP Gender Identity Not on file Sexual Orientation [...] Out COVID-19 12/04/2020 12/04/2020 12/05/2020 6:04 PM BLEACHER SULFITE PULP documented as of this encounter Care Teams Materials Tech Relationship Specialty Start Date End Date Andrew Lu MD XXX RETIRED XXX [address] [place] [phone] PCP - General 12/10/01 01/10/14 Niko Resendiz MD [address] [place] [address]3825 PCP - General Internal Medicine 01/11/14 01/29/14 Carlie Mac MD [address] [place] [address] PCP - General Pediatrics 01/30/14 07/17/15 Angella Mendieta MD [address] [place] [address] PCP - General Family Practice 07/18/15 09/11/15 Julito Banuelos MD [address] [place] [address]48 PCP - General Family Practice 09/12/15 09/23/21 Julito Banuelos MD [address] [place] [address] PCP - Assigned PCP 02/17/16 12/28/18 Vika Kevin APRN CHIEF SCIENCE OFFICER [address] [place] [address] 28776 PCP - General Nurse Practitioner - Family 09/24/21 03/05/22 Vika Kevin APRN CHIEF SCIENCE OFFICER [address] [place] [address] 19243 PCP - General Nurse Practitioner - Family 03/18/22 06/18/22 Vika Kevin, JAIME CHIEF SCIENCE OFFICER [address] [place] [address] 781192 PCP - General Nurse Practitioner - Family 07/24/22 Julito Banuelos MD [address] [place] [address] 698802 Assigned PCP 02/17/16 07/21/[address] [place] [address] President/[employer]m [employer] Dietitian, Registered 04/14/19 Mary Kay Jones, [facility] Pharmacist 08/01/19 04/20/20 Susannah Blankenship, [facility] [address] [facility] [address] [place], [place] 508755 Pharmacist Pharmacist 08/08/19 04/15/21 Carolyn Huynh, [facility] [address] [place], [place] 844[address] Pharmacist Pharmacist 06/25/20 04/15/21 Vika Kevin, JAIME CHIEF SCIENCE OFFICER [address] [place] [address] 558752 Assigned PCP 07/22/20 11/16/24 Marilyn Willard MD [address] [facility] [address] [place], [place] 471785 Assigned Surgical Provider 08/17/20 08/16/24 Carie Varela DO [address] [place] [address] Assigned Heart and Vascular Provider 08/17/20 01/19/21 Maylin May NP [address] [place] [address] Assigned Pediatric Specialist Provider 12/16/20 06/13/22 Marisa Rodrigues, RN Clinic Community Services Coordinator 01/15/21 02/26/21 Vilma Long MD [address] [place] [address] Assigned Heart and Vascular Provider 01/20/21 07/20/21 Yasmeen Pendleton [facility] [address] [place] [address] Pharmacist Pharmacist 06/04/21 01/15/22 Cole George LISW Lead Community Services Coordinator 06/13/21 10/07/21 Fletcher Up Community Health Worker 06/13/21 09/12/21 Bautista Casey MD [address] [place] [address] Assigned Heart and Vascular Provider 07/21/21 01/16/23 Jasmyn Oliver CHW Community Health Worker 09/13/21 10/07/21 Yasmeen Pendleton [facility] [address] [place] [address] Assigned MTM Pharmacist 03/22/22 01/02/23 documented as of this encounter
--- OUTSIDE RECORDS SUMMARY | 2025-09-16 12:06 | XMS_ITS | Encounter Summary ---
Author Organization [place] Address [address] [facility] [address] Care Team Providers Care Home Economics Expert Name Role Phone Julito Banuelos MD Primary Care Provider [phone] Julito Banuelos MD Unavailable Aleshia Henriquez RD Unavailable Unavailable Mary Kay Jones [facility] Unavailable Unavailable Susannah Blankenship [facility] Unavailable Carolyn Huynh [facility] Unavailable [phone] Vika Kevin APRN HOOK UP DRIVER Unavailable + Marilyn Willard MD Unavailable [phone] Carie Varela DO Unavailable [phone] Maylin May NP Unavailable [phone] Marisa Hernandez RN Unavailable Unavailable Vilma Long MD Unavailable Yasmeen Pendleton [facility] Unavailable Cole George Unavailable Fletcher Russell Unavailable Unavailable Bautista Casey MD Unavailable [phone] Jasmyn Oliver CHW Unavailable [phone] Vika Kevin APRN HOOK UP DRIVER Primary Care Prov ider Vika Kevin APRN [facility] Primary Care Prov ider Yasmeen Pendleton [facility] Unavailable + [phone] Vika Kevin APRN [facility] Primary Care Prov ider Reason for Visit * Reason Onset Date Comments Refill Request 09/22/2019 Encounter Details Date Type Department Care Team (Late st Contact Info) Description 09/22/2019 MyC Refill [facility] [address] [facility] [address] [place] [phone] Carie Varela DO [address] [place], [place] 6[address] Refill Request Social History Tobacco Use Types [...] Legal Sex Female 3:22 AM DIRECTOR OF DESIGN Gender Identity Not on file Sexual Orientation Not on file Occupation Industry Job Start Date Job End Date Not on file Not on file Not on file Not on file documented as of this encounter Plan of Treatment Not on file documented as of this encounter Visit Diagnoses Diagnosis Hypertension goal BP (blood pressure) < 140/90 Unspecified essential hypertension Coronary artery disease involving [place] coronary artery of [place] heart without angina pectoris documented in this encounter Additional Health Concerns Infection Onset Date Last Indicated Resolved Time Rule Out COVID-19 07/25/2020 07/25/2020 07/26/2020 3:02 PM CDT Rule Out COVID-19 12/04/2020 12/04/2020 12/05/2020 6:04 PM DIRECTOR OF DESIGN Assessment Noted Time PHQ-9 Depression Total Score: 8 07/18/20 19 12:06 PM CDT documented as of this encounter Care Teams Home Economics Expert Relationship Specialty Start Date End Date Julito Banuelos MD [address] [place] [address]71 PCP - General Family Practice 09/12/15 09/23/21 Vika Kevin APRN HOOK UP DRIVER [address] [place] [address] [phone] PCP - General Nurse Practitioner - Family 09/24/21 03/05/22 Vika Kevin APRN HOOK UP DRIVER [address] [place] [address] [phone] PCP - General Nurse Practitioner - Family 03/18/22 06/18/22 Vika Kevin APRN HOOK UP DRIVER [address] [place] [address] 843802 PCP - General Nurse Practitioner - Family 07/24/22 Julito Banuelos MD [address] [place] [address] [phone] Assigned PCP 02/17/16 07/21/[address] [place] [address] 97198 Contract Graphic Designer Dietitian, Registered 04/14/19 Mary Kay Jones [facility] Pharmacist 08/01/19 04/20/20 Susannah Blankenship [facility] [address] [place] [address] 812 [place], [place] 406955 Pharmacist Pharmacist 08/08/19 04/15/21 Carolyn Huynh [facility] [address] [place], [place] [address]77 Pharmacist Pharmacist 06/25/20 04/15/21 KevinVikalotte, STOCK WORKER AND DELIVERER HOOK UP DRIVER [address] [place], [place] 282932 Assigned PCP 07/22/20 11/16/24 Marilyn Willard MD [address] [facility] [address] [place], [place] 005495 Assigned Surgical Provider 08/17/20 08/16/24 Carie Varela DO [address] [place] [address] Assigned Heart and Vascular Provider 08/17/20 01/19/21 Maylin May NP [address] [place], [place] 64340116 Assigned Pediatric Specialist Provider 12/16/20 06/13/22 Marisa Rodrigues, RN Clinic Order Checker Packer Processer 01/15/21 02/26/21 Vilma Long MD [address] [place] [address] Assigned Heart and Vascular Provider 01/20/21 07/20/21 Yasmeen Pendleton [facility] [address] [place] [address] Pharmacist Pharmacist 06/04/21 01/15/22 Cole George LISW Lead Order Checker Packer Processer 06/13/21 10/07/21 Fletcher Up Community Health Worker 06/13/21 09/12/21 Bautista Casey MD [address] [place] [address] Assigned Heart and Vascular Provider 07/21/21 01/16/23 Jasmyn Oliver CHW Community Health Worker 09/13/21 10/07/21 Yasmeen Pendleton [facility] [address] [place] [address] Assigned MTM Pharmacist 03/22/22 01/02/23 documented as of this encounter
--- OUTSIDE RECORDS SUMMARY | 2025-09-16 12:06 | XMS_ITS | Encounter Summary ---
Author Organization [place] Address [address] [facility] [place] [address] Care Team Providers Care Hold Worker Name Role Phone Julito Banuelos MD Primary Care Provider [phone] Julito Banuelos MD Unavailable Aleshia Henriquez RD Unavailable Unavailable Mary Kay Jones [facility] Unavailable Unavailable Susannah Blankenship [facility] Unavailable Carolyn Huynh [facility] Unavailable [phone] Vika Kevin APRN CO FOUNDER AND CHAIRMAN Unavailable + Marilyn Willard MD Unavailable Carie Varela DO Unavailable [phone] Maylin May NP Unavailable [phone] Marisa Hernandez RN Unavailable Unavailable Vilma Long MD Unavailable Yasmeen Pendleton [facility] Unavailable Cole George Unavailable Fletcher Russell Unavailable Unavailable Bautista Casey MD Unavailable [phone] Jasmyn Oliver CHW Unavailable [phone] Vika Kevin APRN CO FOUNDER AND CHAIRMAN Primary Care Prov ider Vika Kevin APRN [facility] Primary Care Prov ider Yasmeen Pendleton [facility] Unavailable + [phone] Vika Kevin APRN [facility] Primary Care Prov ider Reason for Visit * Reason Onset Date Comments Refill Request 09/12/2019 Encounter Details Date Type Department Care Team (Late st Contact Info) Description 09/12/2019 MyC Refill [facility] [address] [facility] [address] [place] [phone] Carie Varela DO [address] [place], [place] [address] Refill Request Social History Tobacco Use Types [...] on file Legal Sex 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 Gender Identity Not on file Sexual [...] Unspecified essential hypertension Coronary artery disease involving jamul coronary artery of jamul heart without angina pectoris documented in this encounter Additional Health Concerns Infection Onset Date Last Indicated Resolved Time Rule Out COVID-19 07/25/2020 07/25/2020 07/26/2020 3:02 PM CDT Rule Out COVID-19 12/04/2020 12/04/2020 12/05/2020 6:04 PM FUEL CELL BATTERY TECHNICIAN Assessment Noted Time PHQ-9 Depression Total Score: 8 07/18/20 19 12:06 PM CDT documented as of this encounter Care Teams Hold Worker Relationship Specialty Start Date End Date Julito Banuelos MD [address] [place] [address]771 PCP - General Family Practice 09/12/15 09/23/21 Vika Kevin APRN CO FOUNDER AND CHAIRMAN [address] [place] [address] [phone] PCP - General Nurse Practitioner - Family 09/24/21 03/05/22 Vika Kevin APRN CO FOUNDER AND CHAIRMAN [address] [place] [address] [phone] PCP - General Nurse Practitioner - Family 03/18/22 06/18/22 Vika Kevin APRN CO FOUNDER AND CHAIRMAN [address] [place] [address] [phone] PCP - General Nurse Practitioner - Family 07/24/22 Julito Banuelos MD [address] [place] [address] [phone] Assigned PCP 02/17/16 07/21/[address] [place] [address] 14836 Adjunct Nursing Faculty Dietitian, Registered 04/14/19 Mary Kay Jones [facility] Pharmacist 08/01/19 04/20/20 Susannah Blankenship [facility] [address] [place] [address] 812 [place], [place] 430735 Pharmacist Pharmacist 08/08/19 04/15/21 Carolyn Huynh [facility] [address] [place], [place] 4[address] Pharmacist Pharmacist 06/25/20 04/15/21 KevinVikalotte, SEAMER OPERATOR CO FOUNDER AND CHAIRMAN [address] [place], [place] 0618[address] Assigned PCP 07/22/20 11/16/24 Marilyn Willard MD [address] [facility] [address] [place], [place] 8630[address] Assigned Surgical Provider 08/17/20 08/16/24 Carie Varela DO [address] [place] [address] Assigned Heart and Vascular Provider 08/17/20 01/19/21 Maylin May NP [address] [place], [place] 45768116 Assigned Pediatric Specialist Provider 12/16/20 06/13/22 Marisa Rodrigues, RN Clinic Casing Splitter 01/15/21 02/26/21 Vilma Long MD [address] [place] [address] Assigned Heart and Vascular Provider 01/20/21 07/20/21 Yasmeen Pendleton [facility] [address] [place] [address] Pharmacist Pharmacist 06/04/21 01/15/22 Cole George LISW Lead Casing Splitter 06/13/21 10/07/21 Fletcher Up Community Health Worker 06/13/21 09/12/21 Bautista Casey MD [address] [place] [address] Assigned Heart and Vascular Provider 07/21/21 01/16/23 Jasmyn Oliver CHW Community Health Worker 09/13/21 10/07/21 Yasmeen Pendleton [facility] [address] [place] [address] Assigned MTM Pharmacist 03/22/22 01/02/23 documented as of this encounter
--- OUTSIDE RECORDS SUMMARY | 2025-09-16 12:06 | XMS_ITS | Encounter Summary ---
Author Organization [place] Address [address] [place] [address] Care Team Providers Care Hydraulic Governor Assembler Name Role Phone Aleshia Henriquez RD Unavailable Unavailable Vika Kevin APRN [facility] Unavailable + Marilyn Willard MD Unavailable [phone] Maylin May NP Unavailable [phone] Yasmeen Pendleton [facility] Unavailable Bautista Casey MD Unavailable [phone] Vika Kevin APRN [facility] Primary Care Prov ider Vika Kevin APRN [facility] Primary Care Prov ider Yasmeen Pendleton [facility] Unavailable Vika Kevin APRN [facility] Primary Care Prov ider Encounter Details Date Type Department Care Team (Late st Contact Info) Description 10/17/2021 [facility] Medical Advice [address] [phone] Yasmeen Pendleton, [facility] [address] [place], [place] [address] Social History Tobacco Use Types Packs/Day Years Used Date Smoking Tobacco: Former Cigarettes 0.5 15 0 10/26/1955 - 10/26/1963 Smokeless Tobacco: Never Alcohol Use Standard Drinks/Week Comments Yes 6 (1 standard drink = 0.6 oz pur e alcohol) Occasional glass of wine Social Connection and Isolation Panel Answer Date Recorded In a typical week, how many times do you talk on the phone with family, friends, or neighbors? 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 No / Unsure 09/25/2021 11:59 AM HYDROMETEOROLOGICAL TECHNICIAN documented as of this encounter Plan of Treatment Not on file documented as of this encounter Visit Diagnoses Not on filedocumented in this encounter Additional Health Concerns Assessment Noted Time PHQ-9 Depression Total Score: 10 04/29/ 021 3:56 PM CDT documented as of this encounter Care Teams Hydraulic Governor Assembler Relationship Specialty Start Date End Date Vika Kevin APRN APPEALS EXAMINER [address] [place] [address] PCP - General Nurse Practitioner - Family 09/24/21 03/05/22 Vika Kevin APRN APPEALS EXAMINER [address] [place] [address]784 PCP - General Nurse Practitioner - Family 03/18/22 06/18/22 Vika Kevin APRN APPEALS EXAMINER [address] [place] [address] 912152 PCP - General Nurse Practitioner - Family 07/24/[address] Ship Officer Dietitian, Registered 04/14/19 Vika Kevin APRN APPEALS EXAMINER [address] [place] [address]85 Assigned PCP 07/22/20 11/16/24 Marilyn Willard MD [address] [place] [address] Assigned Surgical Provider 08/17/20 08/16/24 [place] [address] [place] [address]78 Assigned Pediatric Specialist Provider 12/16/20 06/13/22 Yasmeen Pendleton R[facility] [address] [place] [address] Pharmacist Pharmacist 06/04/21 01/15/22 Bautista Casey MD [address] [place] [address] Assigned Heart and Vascular Provider 07/21/21 01/16/23 Yasmeen Pendleton [facility] [address] [place] [address] Assigned MTM Pharmacist 03/22/22 01/02/23 documented as of this encounter
--- OUTSIDE RECORDS SUMMARY | 2025-09-16 12:06 | XMS_ITS | Encounter Summary ---
Author Organization [place] Address [address] [facility] [place] [address] Care Team Providers Care Trade Show Specialist Name Role Phone Julito Banuelos MD Primary Care Provider [phone] Julito Banuelos MD Unavailable Aleshia Henriquez RD Unavailable Unavailable Mary Kay Jones [facility] Unavailable Unavailable Susannah Blankenship [facility] Unavailable [phone] Carolyn Huynh [facility] Unavailable [phone] Vika Kevin APRN HUMAN FACTORS SCIENTIST Unavailable + Marilyn Willard MD Unavailable Carie Varela DO Unavailable [phone] Maylin May NP Unavailable [phone] Marisa Hernandez RN Unavailable Unavailable Vilma Long MD Unavailable Yasmeen Pendleton [facility] Unavailable Cole George Unavailable Fletcher Russell Unavailable Unavailable Bautista Casey MD Unavailable Jasmyn Oliver CH[facility] Unavailable [phone] Vika Kevin APRN HUMAN FACTORS SCIENTIST Primary Care Prov ider Vika Kevin APRN, CNP Primary Care Prov ider Yasmeen Pendleton [facility] Unavailable [phone] Vika Kevin APRN HUMAN FACTORS SCIENTIST Primary Care Prov ider Encounter Details Date Type Department Care Team (Late st Contact Info) Description 08/01/2019 MyC Medical Advice [address] [place] [phone] Mary Kay Jones, [facility] Social [...] on file Legal Sex Female 3:22 AM LEGAL EXECUTIVE ASSISTANT Gender Identity Not on file Sexual [...] Out COVID-19 12/04/2020 12/04/2020 12/05/2020 6:04 PM LEGAL EXECUTIVE ASSISTANT Assessment Noted Time PHQ-9 Depression Total Score: 8 07/18/20 19 12:06 PM CDT documented as of this encounter Care Teams Trade Show Specialist Relationship Specialty Start Date End Date Julito Banuelos MD [address] [place] [address]52 PCP - General Family Practice 09/12/15 09/23/21 Vika Kevin APRN [facility] [address] [place] [address] 48874 PCP - General Nurse Practitioner - Family 09/24/21 03/05/22 Vika Kevin APRN HUMAN FACTORS SCIENTIST [address] [place] [address] 49310 PCP - General Nurse Practitioner - Family 03/18/22 06/18/22 Vika Kevin APRN HUMAN FACTORS SCIENTIST [address] [place] [address] [phone] PCP - General Nurse Practitioner - Family 07/24/22 Julito Banuelos MD [address] [place] [address] [phone] Assigned PCP 02/17/16 07/21/[address] [place] [address] 00675 Dope Edger Dietitian, Registered 04/14/19 Mary Kay Jones, [facility] Pharmacist 08/01/19 04/20/20 Susannah Blankenship, [facility] [address] [place] [address] 812 [place] [address] Pharmacist Pharmacist 08/08/19 04/15/21 Carolyn Huynh [facility] [address] [place], [place] [address] Pharmacist Pharmacist 06/25/20 04/15/21 Vika Kevin APRN HUMAN FACTORS SCIENTIST [address] [place] [address]706 Assigned PCP 07/22/20 11/16/24 Marilyn Willard MD [address] [facility] [address] [place] [address] Assigned Surgical Provider 08/17/20 08/16/24 Carie Varela DO [address] [place] [address] Assigned Heart and Vascular Provider 08/17/20 01/19/21 Maylin May, JENNY [address] [place], [place] [id number] Assigned Pediatric Specialist Provider 12/16/20 06/13/22 Marisa Rodrigues RN Clinic Splitting Machine Operator 01/15/21 02/26/21 Vilma Long MD [address] [place] [address] Assigned Heart and Vascular Provider 01/20/21 07/20/21 Yasmeen Pendleton [facility] [address] [place] [address] Pharmacist Pharmacist 06/04/21 01/15/22 Cole George LISW Lead Splitting Machine Operator 06/13/21 10/07/21 Fletcher Up Community Health Worker 06/13/21 09/12/21 Bautista Casey MD [address] [place] [address] Assigned Heart and Vascular Provider 07/21/21 01/16/23 Jasmyn Oliver CHW Community Health Worker 09/13/21 10/07/21 Yasmeen Pendleton [facility] 9[address] [place] [address] Assigned MTM Pharmacist 03/22/22 01/02/23 documented as of this encounter
--- OUTSIDE RECORDS SUMMARY | 2025-09-16 12:06 | XMS_ITS | Encounter Summary ---
Author Organization [place] Address [address] [facility] [place] [address] Care Team Providers Care Housing Project Manager Name Role Phone Julito Banuelos MD Primary Care Provider [phone] Julito Banuelos MD Unavailable Aleshia Henriquez RD Unavailable Unavailable Mary Kay Jones [facility] Unavailable Unavailable Susannah Blankenship [facility] Unavailable Carolyn Huynh [facility] Unavailable [phone] Vika Kevin APRN RELAY TESTER HELPER Unavailable + Marilyn Willard MD Unavailable Carie Varela DO Unavailable [phone] Maylin May NP Unavailable [phone] Marisa Hernandez RN Unavailable Unavailable Vilma Long MD Unavailable Yasmeen Pendleton [facility] Unavailable Cole George Unavailable Fletcher Russell Unavailable Unavailable Bautista Casey MD Unavailable Jasmyn Oliver CHW Unavailable [phone] Vika Kevin APRN RELAY TESTER HELPER Primary Care Prov ider Vika Kevin APRN, CNP Primary Care Prov ider Yasmeen Pendleton [facility] Unavailable [phone] Vika Kevin APRN RELAY TESTER HELPER Primary Care Prov ider Encounter Details Date Type Department Care Team (Late st Contact Info) Description 08/16/2019 MyC Medical Advice [address] [place] [phone] Mayr Kay Jones, [facility] Social History Tobacco Use Types Packs/Day [...] on file 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 Gender Identity Not on file Sexual Orientation [...] Out COVID-19 12/04/2020 12/04/2020 12/05/2020 6:04 PM COAT FINISHER Assessment Noted Time PHQ-9 Depression Total Score: 8 07/18/20 19 12:06 PM CDT documented as of this encounter Care Teams Housing Project Manager Relationship Specialty Start Date End Date Julito Banuelos MD [address] [place] [address] PCP - General Family Practice 09/12/15 09/23/21 Vika Kevin APRN [facility] [address] [place] [address] 68946 PCP - General Nurse Practitioner - Family 09/24/21 03/05/22 Vika Kevin APRN RELAY TESTER HELPER [address] [place] [address] 36381 PCP - General Nurse Practitioner - Family 03/18/22 06/18/22 Vika Kevin APRN RELAY TESTER HELPER [address] [place] [address] [phone] PCP - General Nurse Practitioner - Family 07/24/22 Julito Banuelos MD [address] [place] [address] 368462 Assigned PCP 02/17/16 07/21/[address] [place] [address] [employer] [place] Consultant Dietitian, Registered 04/14/19 Mary Kay Jones, [facility] Pharmacist 08/01/19 04/20/20 Susannah Blankenship, [facility] [address] [place] [address] 812 [place] [address] Pharmacist Pharmacist 08/08/19 04/15/21 Carolyn Huynh [facility] [address] [place], [place] [address] Pharmacist Pharmacist 06/25/20 04/15/21 Vika Kevin APRN RELAY TESTER HELPER [address] [place] [address] Assigned PCP 07/22/20 11/16/24 Marilyn Willard MD 420 [facility] 394 [place] [address] Assigned Surgical Provider 08/17/20 08/16/24 Carie Varela DO [address] [place] [address] Assigned Heart and Vascular Provider 08/17/20 01/19/21 Maylin May, JENNY [address] [place], [place] [id number] Assigned Pediatric Specialist Provider 12/16/20 06/13/22 Marisa Rodrigues RN Clinic Line Analyst 01/15/21 02/26/21 Vilma Long MD [address] [place] [address] Assigned Heart and Vascular Provider 01/20/21 07/20/21 Yasmeen Pendleton [facility] [address] [place] [address] Pharmacist Pharmacist 06/04/21 01/15/22 Cole George LISW Lead Line Analyst 06/13/21 10/07/21 Fletcher Up Community Health Worker 06/13/21 09/12/21 Bautista Casey MD [address] [place] [address] Assigned Heart and Vascular Provider 07/21/21 01/16/23 Jasmyn Oliver CHW Community Health Worker 09/13/21 10/07/21 Yasmeen Pendleton [facility] [address] [place] [address] Assigned MTM Pharmacist 03/22/22 01/02/23 documented as of this encounter
--- OUTSIDE RECORDS SUMMARY | 2025-09-16 12:06 | XMS_ITS | Encounter Summary ---
Author Organization [place] Address [address] [facility] [place] [address] Care Team Providers Care Pediatric Anesthesiologist Name Role Phone Andrew Lu MD Primary Care Provider [phone] Niko Resendiz MD Primary Care Provider Carlie Mac MD Primary Care Provide r Angella Mendieta MD Primary Care Provider Julito Banuelos MD Primary Care Provider [phone] Julito Banuelos MD Unavailable Julito Banuelos MD Unavailable Aleshia Henriquez RD Unavailable Unavailable Mary Kay Jones [facility] Unavailable Unavailable Susannah Blankenship [facility] Unavailable [phone] Carolyn Huynh [facility] Unavailable [phone] Vika Kevin APRN ROLL TENSION TESTER Unavailable + Marilyn Willard MD Unavailable [phone] Carie Varela DO Unavailable [phone] Maylin May NP Unavailable [phone] Marisa Rodrigues RN Unavailable Unavailable Vilma Long MD Unavailable + [phone] Yasmeen Pendleton [facility] Unavailable + [phone] Cole George Unavailable Fletcher Russell Unavailable Unavailable Bautista Casey MD Unavailable [phone] DemetriusJasmyn wright [facility] Unavailable [phone] Vika Kevin APRN [facility] Primary Care Prov ider Vika Kevin APRN [facility] Primary Care Prov ider Yasmeen Pendleton [facility] Unavailable + [phone] Vika Kevin APRN [facility] Primary Care Prov ider Encounter Details Date Type Department Care Team (Late st Contact Info) Description 09/28/[address] [phone] Veronica [place] Social History Tobacco Use Types Packs/Day Years [...] file 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 Gender Identity Not on file Sexual [...] COVID-19 12/04/2020 12/04/2020 12/05/2020 6:04 PM ENGINEERING PROJECT DESIGNER documented as of this encounter Care Teams Pediatric Anesthesiologist Relationship Specialty Start Date End Date Andrew Lu MD XXX RETIRED XXX [address] [place] [phone] PCP - General 12/10/01 01/10/14 Niko Resendiz MD [address] [place] [address] PCP - General Internal Medicine 01/11/14 01/29/14 Carlie Mac MD [address] [place] [address] PCP - General Pediatrics 01/30/14 07/17/15 Angella Mendieta MD [address] [place] [address] PCP - General Family Practice 07/18/15 09/11/15 Julito Banuelos MD [address] [place] [address] PCP - General Family Practice 09/12/15 09/23/21 Julito Banuelos MD [address] [place] [address]800 PCP - Assigned PCP 02/17/16 12/28/18 Vika Kevin APRN ROLL TENSION TESTER [address] [place] [address] 29971 PCP - General Nurse Practitioner - Family 09/24/21 03/05/22 Viak Kevin APRN ROLL TENSION TESTER [address] [place] [address] 40196 PCP - General Nurse Practitioner - Family 03/18/22 06/18/22 Vika Kevin APRN ROLL TENSION TESTER [address] [place] [address] 948422 PCP - General Nurse Practitioner - Family 07/24/22 Julito Banuelos MD [address] [place] [address] 113942 Assigned PCP 02/17/16 07/21/[address] [place] [address] Director Sales Support Dietitian, Registered 04/14/19 Mary Kay Jones, [facility] Pharmacist 08/01/19 04/20/20 [facility] [address] [place] [address] 812 [place], [place] [address] Pharmacist Pharmacist 08/08/19 04/15/21 [facility] [address] [place], [place] [address] Pharmacist Pharmacist 06/25/20 04/15/21 Vika Kevin APRN ROLL TENSION TESTER [address] [place] [address] 956312 Assigned PCP 07/22/20 11/16/24 Marilyn Willard MD [address] [place] [address] 394 [place] [address] Assigned Surgical Provider 08/17/20 08/16/24 Carie Varela DO [address] [place], [place] [address] Assigned Heart and Vascular Provider 08/17/20 01/19/21 Maylin May NP [address] [place] [address] Assigned Pediatric Specialist Provider 12/16/20 06/13/22 Marisa Rodrigues, RN Clinic Admittance Attendant 01/15/21 02/26/21 Vilma Long MD [address] [place] [address] Assigned Heart and Vascular Provider 01/20/21 07/20/21 [facility] [address] [place] [address] Pharmacist Pharmacist 06/04/21 01/15/22 Cole George LISW Lead Admittance Attendant 06/13/21 10/07/21 Fletcher Up Community Health Worker 06/13/21 09/12/21 Bautista Casey MD [address] [place] [address] Assigned Heart and Vascular Provider 07/21/21 01/16/23 Jasmyn Oliver CHW Community Health Worker 09/13/21 10/07/21 [facility] [address] [place] [address] [phone] Assigned MTM Pharmacist 03/22/22 01/02/23 documented as of this encounter
--- OUTSIDE RECORDS SUMMARY | 2025-09-16 12:07 | XMS_ITS | Encounter Summary ---
Author Organization [place] Address [address] [facility] [place] [address] Care Team Providers Care Structural Rigger Name Role Phone Andrew Lu MD Primary Care Provider [phone] Niko Resendiz MD Primary Care Provider Carlie Mac MD Primary Care Provide r Angella Mendieta MD Primary Care Provider Julito Banuelos MD Primary Care Provider [phone] Julito Banuelos MD Unavailable Julito Banuelos MD Unavailable Aleshia Henriquez RD Unavailable Unavailable Mary Kay Jones [facility] Unavailable Unavailable Susannah Blankenship [facility] Unavailable [phone] Carolyn Huynh [facility] Unavailable [phone] Vika Kevin APRN INFECTION CONTROL NURSE Unavailable + Marilyn Willard MD Unavailable [phone] Carie Varela DO Unavailable [phone] Maylin May NP Unavailable [phone] Marisa Rodrigues RN Unavailable Unavailable Vilma Long MD Unavailable + [phone] Yasmeen Pendleton [facility] Unavailable [phone] Cole George Unavailable Fletcher Russell Unavailable Unavailable Bautista Casey MD Unavailable AnnyJasmyn tracey [facility] Unavailable [phone] Vika Kevin APRN [facility] Primary Care Prov ider Vika Kevin APRN [facility] Primary Care Prov ider Yasmeen Pendleton [facility] Unavailable [phone] [facility] Primary Care Prov ider Encounter Details Date Type Department Care Team (Late st Contact Info) Description 06/28/2013 MyC Medical Advice [address] [phone] Denis Rojas MD [address] [place] [phone] Social History Tobacco Use Types Packs/Day Years Used Date Smoking Tobacco: Former Cigarettes 0.3 15 0 10/26/1961 - 10/26/1976 Smokeless Tobacco: Never Alcohol Use Standard Drinks/Week Comments Yes 0 (1 standard drink = 0.6 oz pur e alcohol) 1-2 glasses of wine weekly Comments No Sex and Gender Information Value Date Recorded Sex Assigned at Not on file Legal 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 Female 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 GREASE REMOVER Gender Identity Not on file Sexual Orientation [...] Out COVID-19 12/04/2020 12/04/2020 12/05/2020 6:04 PM GREASE REMOVER documented as of this encounter Care Teams Structural Rigger Relationship Specialty Start Date End Date Andrew Lu MD XXX RETIRED XXX [address] [place] [phone] PCP - General 12/10/01 01/10/14 Niko Resendiz MD [address] [place] [address] PCP - General Internal Medicine 01/11/14 01/29/14 Carlie Mac MD [address] [place] [address] PCP - General Pediatrics 01/30/14 07/17/15 Angella Mendieta MD [address] [place] [address] PCP - General Family Practice 07/18/15 09/11/15 Julito Banuelos MD [address] [place] [address] PCP - General Family Practice 09/12/15 09/23/21 Julito Banuelos MD [address] [place] [address] PCP - Assigned PCP 02/17/16 12/28/18 Vika Kevin APRN INFECTION CONTROL NURSE [address] [place] [address]176 PCP - General Nurse Practitioner - Family 09/24/21 03/05/22 Vika Kevin APRN INFECTION CONTROL NURSE [address] [place] [address] PCP - General Nurse Practitioner - Family 03/18/22 06/18/22 Vika Kevin APRN INFECTION CONTROL NURSE [address] [place] [address] 098332 PCP - General Nurse Practitioner - Family 07/24/22 Julito Banuelos MD [address] [place] [address] 814382 Assigned PCP 02/17/16 07/21/[address] [place] [address] Seat Builder Dietitian, Registered 04/14/19 Mary Kay Jones, [facility] Pharmacist 08/01/19 04/20/20 Susannah Blankenship, [facility] 420 [facility] 812 [place], [place] [address] Pharmacist Pharmacist 08/08/19 04/15/21 Carolyn Huynh, [facility] [address] [place], [place] [address] Pharmacist Pharmacist 06/25/20 04/15/21 Vika Kevin, JAIME INFECTION CONTROL NURSE [address] [place] [address] 718142 Assigned PCP 07/22/20 11/16/24 Marilyn Willard MD 420 [facility] [address] [place], [place] 757[address] Assigned Surgical Provider 08/17/20 08/16/24 Carie Varela DO [address] [place] [address] Assigned Heart and Vascular Provider 08/17/20 01/19/21 Maylin May NP [address] [facility] [place] [address] Assigned Pediatric Specialist Provider 12/16/20 06/13/22 Marisa Rodrigues, RN Clinic Artist Representative 01/15/21 02/26/21 Vilma Long MD [address] [place] [address] Assigned Heart and Vascular Provider 01/20/21 07/20/21 [facility] [address] [place] [address] Pharmacist Pharmacist 06/04/21 01/15/22 Cole George LISW Lead Artist Representative 06/13/21 10/07/21 Fletcher Up Community Health Worker 06/13/21 09/12/21 Bautista Casey MD [address] [place] [address] Assigned Heart and Vascular Provider 07/21/21 01/16/23 Jasmyn Oliver CHW Community Health Worker 09/13/21 10/07/21 [facility] [address] [place] [address] Assigned MTM Pharmacist 03/22/22 01/02/23 documented as of this encounter
--- OUTSIDE RECORDS SUMMARY | 2025-09-16 12:07 | XMS_ITS | Encounter Summary ---
Author Organization [place] Address [address] [facility] [place] [address] Care Team Providers Care Halftone Operator Name Role Phone Julito Banuelos MD Primary Care Provider [phone] Julito Banuelos MD Unavailable Aleshia Henriquez RD Unavailable Unavailable Susannah Blankenship [facility] Unavailable [phone] Carolyn Huynh [facility] Unavailable [phone] Vika Kevin APRN COMIC BOOK WRITER Unavailable + Marilyn Willard MD Unavailable [phone] Carie Varela DO Unavailable [phone] Maylin May NP Unavailable [phone] Marisa Hernandez RN Unavailable Unavailable Vilma Long MD Unavailable + [phone] Yasmeen Pendleton [facility] Unavailable [phone] Cole George Unavailable Fletcher Russell Unavailable Unavailable Bautista Casey MD Unavailable [phone] Jasmyn Oliver Unavailable [phone] Vika Kevin APRN COMIC BOOK WRITER Primary Care Prov ider Vika Kevin APRN [facility] Primary Care Prov ider Yasmeen Pendleton [facility] Unavailable Vika Kevin APRN [facility] Primary Care Prov ider Encounter Details Date Type Department Care Team (Late st Contact Info) Description 05/08/2020 MyC Medical Advice [address] [place] [address] Susannah Blankenship, [facility] 420 [facility] 812 [place] [address] Social History Tobacco Use Types Packs/Day Years [...] on file Legal 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 Gender Identity Not on file Sexual [...] Out COVID-19 12/04/2020 12/04/2020 12/05/2020 6:04 PM COMMUNITY NURSE Assessment Noted Time PHQ-9 Depression Total Score: 8 07/18/20 19 12:06 PM CDT documented as of this encounter Care Teams Halftone Operator Relationship Specialty [place] [address] [place] [address] PCP - General Family Practice 09/12/15 09/23/21 Vika Kevin APRN COMIC BOOK WRITER [address] [place] [address] PCP - General Nurse Practitioner - Family 09/24/21 03/05/22 Vika Kevin APRN COMIC BOOK WRITER [address] [place] [address] PCP - General Nurse Practitioner - Family 03/18/22 06/18/22 Vika Kevin APRN COMIC BOOK WRITER [address] [place] [address] PCP - General Nurse Practitioner - Family 07/24/22 Julito Banuelos MD [address] [place] [address] 422782 Assigned PCP 02/17/16 07/21/[address] [place] [address] Video Games Mechanic Dietitian, Registered 04/14/19 Susannah Blankenship, [facility] [address] [place] [address] 812 [place] [address] Pharmacist Pharmacist 08/08/19 04/15/21 Carolyn Huynh [facility] [address] [place] [address] Pharmacist Pharmacist 06/25/20 04/15/21 Vika Kevin APRN COMIC BOOK WRITER [address] [place] [address] Assigned PCP 07/22/20 11/16/24 Marilyn Willard MD [address] [place] [address] 394 [place] [address] Assigned Surgical Provider 08/17/20 08/16/24 Carie Varela DO [address] [place] [address] Assigned Heart and Vascular Provider 08/17/20 01/19/21 Maylin May NP [address] [place] [address] Assigned Pediatric Specialist Provider 12/16/20 06/13/22 Marisa Rodrigues, RN Clinic Keying Machine Operator 01/15/21 02/26/21 Vilma Long MD [address] [place] [address] Assigned Heart and Vascular Provider 01/20/21 07/20/21 Yasmeen Pendleton [facility] [address] [place] [address] [phone] Pharmacist Pharmacist 06/04/21 01/15/22 Cole George LISW Lead Keying Machine Operator 06/13/21 10/07/21 Fletcher Up Community Health Worker 06/13/21 09/12/21 Bautista Casey MD [address] [place] [address] Assigned Heart and Vascular Provider 07/21/21 01/16/23 Jasmyn Oliver CHW Community Health Worker 09/13/21 10/07/21 Yasmeen Pendleton [facility] [address] [place] [address] Assigned MTM Pharmacist 03/22/22 01/02/23 documented as of this encounter
--- OUTSIDE RECORDS SUMMARY | 2025-09-16 12:07 | XMS_ITS | Encounter Summary ---
Author Organization [facility] Address [address] [facility] [place] [address] Care Team Providers Care Rules Examiner Name Role Phone Andrew Lu MD Primary Care Provider [phone] Niko Resendiz MD Primary Care Provider Carlie Mac MD Primary Care Provide r Angella Mendieta MD Primary Care Provider Julito Banuelos MD Primary Care Provider [phone] Julito Banuelos MD Unavailable Julito Banuelos MD Unavailable Aleshia Henriquez RD Unavailable Unavailable Mary Kay Jones [facility] Unavailable Unavailable Susananh Blankenship [facility] Unavailable [phone] Carolyn Huynh [facility] Unavailable [phone] Vika Kevin APRN GENERAL MANAGER Unavailable + Marilyn Willard MD Unavailable [phone] Carie Varela DO Unavailable [phone] Maylin May NP Unavailable [phone] Marisa Rodrigues RN Unavailable Unavailable Vilma Long MD Unavailable + [phone] Yasmeen Pendleton [facility] Unavailable [phone] Cole George Unavailable Fletcher Russell Unavailable Unavailable Bautista Casey MD Unavailable DemetriusJasmyn wright [facility] Unavailable [phone] Vika Kevin APRN [facility] Primary Care Prov ider Vika Kevin APRN [facility] Primary Care Prov ider Yasmeen Pendleton [facility] Unavailable [phone] [facility] Primary Care Prov ider Encounter Details Date Type Department Care Team (Late st Contact Info) Description 04/27/2012 MyC Medical Advice [address] [phone] Andrew Lu MD XXX RETIRED XXX [address] [phone] Social History Tobacco Use Types Packs/Day Years Used Date Smoking Tobacco: Former Cigarettes 0.3 15 0 10/26/1961 - 10/26/1976 Smokeless Tobacco: Never Alcohol Use Standard Drinks/Week Comments Yes 0 (1 standard drink = 0.6 oz pur e alcohol) 1-2 glasses of wine weekly Comments No Sex and Gender Information Value Date Recorded Sex Assigned at Not on file Legal Sex Female 3:22 AM 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 Gender Identity Not on file Sexual Orientation [...] Out COVID-19 12/04/2020 12/04/2020 12/05/2020 6:04 PM 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 documented as of this encounter Care Teams Rules Examiner Relationship Specialty Start Date End Date Andrew Lu MD XXX RETIRED XXX [address] [place] [phone] PCP - General 12/10/01 01/10/14 Niko Resendiz MD [address] [place] [address] PCP - General Internal Medicine 01/11/14 01/29/14 Carlie Mac MD [address] [place] [address] PCP - General Pediatrics 01/30/14 07/17/15 Angella Mendieta MD [address] [place] [address] PCP - General Family Practice 07/18/15 09/11/15 Julito Banuelos MD [address] [place] [address]85 PCP - General Family Practice 09/12/15 09/23/21 Julito Banuelos MD [address] [place] [address] PCP - Assigned PCP 02/17/16 12/28/18 Vika Kevin APRN GENERAL MANAGER [address] [place] [address] PCP - General Nurse Practitioner - Family 09/24/21 03/05/22 Vika Kevin APRN GENERAL MANAGER [address] [place] [address] PCP - General Nurse Practitioner - Family 03/18/22 06/18/22 Vika Kevin, JAIME GENERAL MANAGER [address] [place] [address] [id number] PCP - General Nurse Practitioner - Family 07/24/22 Julito Banuelos MD [address] [place] [address] [phone] Assigned PCP 02/17/16 07/21/[address] [place] [address] District Sales Representative Dietitian, Registered 04/14/19 Mary Kay Jones, [facility] Pharmacist 08/01/19 04/20/20 Susannah Blankenship, [facility] [address] [facility] [address] [place], [place] 13[address] Pharmacist Pharmacist 08/08/19 04/15/21 Carolyn Huynh, [facility] [address] [place], [place] 6[address] Pharmacist Pharmacist 06/25/20 04/15/21 Vika Kevin, JAIME GENERAL MANAGER [address] [place] [address] 502142 Assigned PCP 07/22/20 11/16/24 Marilyn Willard MD [address] [facility] [address] [place], [place] 125565 Assigned Surgical Provider 08/17/20 08/16/24 Carie Varela DO [address] [place] [address] Assigned Heart and Vascular Provider 08/17/20 01/19/21 Maylin May NP [address] [place] [address] Assigned Pediatric Specialist Provider 12/16/20 06/13/22 Marisa Rodrigues, RN Clinic Resource Conservation Manager 01/15/21 02/26/21 Vilma Long MD [address] [place] [address] Assigned Heart and Vascular Provider 01/20/21 07/20/21 Yasmeen Pendleton [facility] [address] [place] [address] Pharmacist Pharmacist 06/04/21 01/15/22 Cole George LISW Lead Resource Conservation Manager 06/13/21 10/07/21 Fletcher Up Community Health Worker 06/13/21 09/12/21 Bautista Casey MD [address] [place] [address] Assigned Heart and Vascular Provider 07/21/21 01/16/23 Jasmyn Oliver CHW Community Health Worker 09/13/21 10/07/21 Yasmeen Pendleton [facility] [address] [place] [address] Assigned MTM Pharmacist 03/22/22 01/02/23 documented as of this encounter
--- OUTSIDE RECORDS SUMMARY | 2025-09-16 12:07 | XMS_ITS | Encounter Summary ---
Author Organization [place] Address [address] [facility] [place] [address] Care Team Providers Care Home Hospice Rn Name Role Phone Andrew Lu MD Primary Care Provider [phone] Niko Resendiz MD Primary Care Provider Carlie Mac MD Primary Care Provide r Angella Mendieta MD Primary Care Provider Julito Banuelos MD Primary Care Provider [phone] Julito Banuelos MD Unavailable Julito Banuelos MD Unavailable Aleshia Henriquez RD Unavailable Unavailable Mary Kay Jones [facility] Unavailable Unavailable Susannah Blankenship [facility] Unavailable [phone] Carolyn Huynh [facility] Unavailable [phone] Vika Kevin APRN TECHNICAL LEAD Unavailable + Marilyn Willard MD Unavailable [phone] Carie Varela DO Unavailable [phone] Maylin May NP Unavailable [phone] Marisa Rodrigues RN Unavailable Unavailable Vilma Long MD Unavailable + [phone] Yasmeen Pendleton [facility] Unavailable [phone] Cole George Unavailable Fletcher Russell Unavailable Unavailable Bautista Csaey MD Unavailable TatyanaJasmyn anand [facility] Unavailable [phone] Viak Kevin APRN [facility] Primary Care Prov ider Vika Kevin APRN [facility] Primary Care Prov ider Yasmeen Pendleton [facility] Unavailable [phone] Vika Kevin APRN [facility] Primary Care Prov ider Encounter Details Date Type Department Care Team (Late st Contact Info) Description 05/19/[address] [phone] Jolene Martin Social History Tobacco Use Types [...] on file Legal 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 Gender Identity Not on file Sexual Orientation Not on file documented as of this encounter Plan of Treatment Not on file documented as of this encounter Visit Diagnoses Not on filedocumented in this encounter Additional Health Concerns Infection Onset Date Last Indicated Resolved Time Rule Out COVID-19 07/25/2020 07/25/2020 07/26/2020 3:02 PM CDT Rule Out COVID-19 12/04/2020 12/04/2020 12/05/2020 6:04 PM TELEPHONIC CASE MANAGER documented as of this encounter Care Teams Home Hospice Rn Relationship Specialty Start Date End Date Andrew Lu MD XXX RETIRED XXX [address] [place] [phone] PCP - General 12/10/01 01/10/14 Niko Resendiz MD [address] [address] PCP - General Internal Medicine 01/11/14 01/29/14 Carlie Mac MD [address] [place] [address] PCP - General Pediatrics 01/30/14 07/17/15 Angella Mendieta MD [address] [place] [address] PCP - General Family Practice 07/18/15 09/11/15 Julito Banuelos MD [address] [place] [address] PCP - General Family Practice 09/12/15 09/23/21 Julito Banuelos MD [address] [place] [address] 26842 PCP - Assigned PCP 02/17/16 12/28/18 Vika Kevin APRN TECHNICAL LEAD [address] [place] [address] 17973 PCP - General Nurse Practitioner - Family 09/24/21 03/05/22 Vika Kevin APRN TECHNICAL LEAD [address] [place] [address] PCP - General Nurse Practitioner - Family 03/18/22 06/18/22 Vika Kevin APRN TECHNICAL LEAD [address] [place] [address] 221962 PCP - General Nurse Practitioner - Family 07/24/22 Julito Banuelos MD [address] [place] [address] [phone] Assigned PCP 02/17/16 07/21/20 Aleshia Henriquez, DAVE [address] [place] [address] 79[address] Concrete Paving Supervisor Dietitian, Registered 04/14/19 Mary Kay Jones, [facility] Pharmacist 08/01/19 04/20/20 Susannah Blankenship, [facility] [address] [place] [address] [address] [place], [place] [address] Pharmacist Pharmacist 08/08/19 04/15/21 [facility] [address] [place], [place] [address] Pharmacist Pharmacist 06/25/20 04/15/21 Vika Kevin APRN TECHNICAL LEAD [address] [place] [address] [phone] Assigned PCP 07/22/20 11/16/24 Marilyn Willard MD 420 [facility] [address] [place], [place] [address] Assigned Surgical Provider 08/17/20 08/16/24 Carie Varela DO [address] [place], [place] 28[address] Assigned Heart and Vascular Provider 08/17/20 01/19/21 Maylin May, JENNY [address] [place] [address] Assigned Pediatric Specialist Provider 12/16/20 06/13/22 Marisa Rodrigues, RN Clinic Ammonia Print Operator 01/15/21 02/26/21 Vilma Long MD [address] [place] [address] Assigned Heart and Vascular Provider 01/20/21 07/20/21 Yasmeen Pendleton [facility] [address] [place] [address] Pharmacist Pharmacist 06/04/21 01/15/22 Cole George LISW Lead Ammonia Print Operator 06/13/21 10/07/21 Fletcher Up Community Health Worker 06/13/21 09/12/21 Bautista Casey MD [address] [place] [address] Assigned Heart and Vascular Provider 07/21/21 01/16/23 Jasmyn Oliver CHW Community Health Worker 09/13/21 10/07/21 Yasmeen Pendleton [facility] [address] [place] [address] [phone] Assigned MTM Pharmacist 03/22/22 01/02/23 documented as of this encounter
--- OUTSIDE RECORDS SUMMARY | 2025-09-16 12:07 | XMS_ITS | Encounter Summary ---
Author Organization [facility] Address [address] [facility] [place] [address] Care Team Providers Care Peripheral Edp Equipment Operator Name Role Phone Julito Banuelos MD Primary Care Provider [phone] Julito Banuelos MD Unavailable Aleshia Henriquez RD Unavailable Unavailable Mary Kay Jones [facility] Unavailable Unavailable Susannah Blankenship [facility] Unavailable [phone] Carolyn Huynh [facility] Unavailable [phone] Vika Kevin APRN AUTOMOTIVE HEAVY MECHANIC Unavailable + Marilyn Willard MD Unavailable Carie Varela DO Unavailable [phone] Maylin May NP Unavailable [phone] Marisa Hernandez RN Unavailable Unavailable Vilma Long MD Unavailable Yasmeen Pendleton [facility] Unavailable Cole George Unavailable Fletcher Russell Unavailable Unavailable Bautista Casey MD Unavailable Jasmyn Oliver CHW Unavailable [phone] Vika Kevin APRN AUTOMOTIVE HEAVY MECHANIC Primary Care Prov ider Vika Kevin APRN [facility] Primary Care Prov ider Yasmeen Pendleton [facility] Unavailable [phone] Vika Kevin APRN [facility] Primary Care Prov ider Reason for Visit * Reason Comments Medication Refill Encounter Details Date Type Department Care Team (Late st Contact Info) Description 04/20/[address] [phone] [place] [address] [place] [address] [phone] Medication Refill Social History Tobacco Use Types [...] on file Legal Sex Female 3:22 AM STATISTICAL TYPIST Gender Identity Not on file Sexual Orientation [...] Refill available at pharmacy Panda Bradshaw RN [facility] Triage documented in this encounter Plan of Treatment Not on file documented as of this encounter Visit Diagnoses Diagnosis Hypothyroidism, unspecified type documented in this encounter Additional Health Concerns Infection Onset Date Last Indicated Resolved Time Rule Out COVID-19 07/25/2020 07/25/2020 07/26/2020 3:02 PM CDT Rule Out COVID-19 12/04/2020 12/04/2020 12/05/2020 6:04 PM STATISTICAL TYPIST Assessment Noted Time PHQ-9 Depression Total Score: 8 07/18/20 19 12:06 PM CDT documented as of this encounter Care Teams Peripheral Edp Equipment Operator Relationship Specialty Start Date End Date Julito Banuelos MD [address] [place] [address] PCP - General Family Practice 09/12/15 09/23/21 Vika Kevin APRN AUTOMOTIVE HEAVY MECHANIC [address] [place] [address] PCP - General Nurse Practitioner - Family 09/24/21 03/05/22 Vika Kevin APRN AUTOMOTIVE HEAVY MECHANIC [address] [place] [address] PCP - General Nurse Practitioner - Family 03/18/22 06/18/22 Vika Kevin APRN AUTOMOTIVE HEAVY MECHANIC [address] [place] [address] PCP - General Nurse Practitioner - Family 07/24/22 Julito Banuelos MD [address] [place] [address] Assigned PCP 02/17/16 07/21/[address] [place] [address] Pharmacy Benefits Coordinator Dietitian, Registered 04/14/19 Mary Kay Jones [facility] Pharmacist 08/01/19 04/20/20 Susannah Blankenship, [facility] [address] [facility] [address]12 [place], [place] [address] Pharmacist Pharmacist 08/08/19 04/15/21 Carolyn Huynh [facility] [address] [place] [address] Pharmacist Pharmacist 06/25/20 04/15/21 Vika Kevin, HEATING ELEMENT BUILDER AUTOMOTIVE HEAVY MECHANIC [address] [place] [address] [phone] Assigned PCP 07/22/20 11/16/24 Marilyn Willard MD 420 [facility] 394 [place], [place] [address] Assigned Surgical Provider 08/17/20 08/16/24 Carie Varela DO [address] [place] [address] Assigned Heart and Vascular Provider 08/17/20 01/19/21 Maylin May NP [address] [place], [place] [id number] Assigned Pediatric Specialist Provider 12/16/20 06/13/22 Marisa Rodrigues, RN Clinic Registered Phlebotomist Part Time 01/15/21 02/26/21 Vilma Long MD [address] [place] [address] Assigned Heart and Vascular Provider 01/20/21 07/20/21 Yasmeen Pendleton [facility] [address] [place] [address] Pharmacist Pharmacist 06/04/21 01/15/22 Cole George LISW Lead Registered Phlebotomist Part Time 06/13/21 10/07/21 Fletcher Up Community Health Worker 06/13/21 09/12/21 Bautista Casey MD [address] [place] [address] Assigned Heart and Vascular Provider 07/21/21 01/16/23 Jasmyn Oliver CHW Community Health Worker 09/13/21 10/07/21 Yasmeen Pendleton [facility] [address] [place] [address] Assigned MTM Pharmacist 03/22/22 01/02/23 documented as of this encounter
--- OUTSIDE RECORDS SUMMARY | 2025-09-16 12:07 | XMS_ITS | Clinical Summary ---
Author Organization [facility] Address [address] [place] [address] Care Team Providers Care Financial Services Auditor Name Role Phone Maria Fernanda Linares NP Primary Care Provider [phone] Allergies Active Allergy Reactions Criticality Noted Date [...] tablet by mouth once daily. 06/29/2018 Active Encounters Date Type Department Care Team Description 06/29/2025 Lab Requisition [facility] [address] [facility] [place] [address] Maria Fernanda Linares NP from Last 3 Months Social History Tobacco Use Types Packs/Day Years Used Date Smoking Tobacco: Never Smokeless Tobacco: Never Comments No Sex and Gender Information Value Date Recorded Sex Assigned at Not on file Legal Sex Female 6:13 AM STAFF RN Gender Identity Not on file Sexual Orientation Not on file Obstetrics History Last Filed Vital Signs Vital Sign Reading Time Taken Comments Blood Pressure 159/79 10/17/2018 10:16 AM STAFF RN Pulse 78 10/17/2018 10:16 AM STAFF RN Temperature 36.7 C (98 F) 10/17/2018 10:16 AM STAFF RN Respiratory Rate 20 10/17/2018 10:16 AM STAFF RN Oxygen Saturation 96% 10/17/2018 10:16 AM STAFF RN Inhaled Oxygen Concentration - - Weight 98 kg (216 lb) 10/17/2018 10:16 AM STAFF RN Height 172.7 cm (5' 8) 10/17/2018 10:16 AM STAFF RN Body Mass Index 32.84 10/17/2018 10:16 AM STAFF RN Plan of Treatment Health Maintenance Due Date [...] or (1 - 1-dose 75+ series) 2016 Influenza Vaccine (#1) 2025 Hepatitis B series for 19+ Aged Out N o longer eligible based on patient's age to complete this topic Procedures Procedure Name Priority Date/Time Associated Diagnosis Comments URINALYSIS MICROSCOPIC Routine 06/29/2025 2:50 PM CDT Neuromuscular dysfunction of bladder, unspecified Encounter for fitting and adjustment of urinary device Personal history of urinary (tract) infections URINE CULTURE Routine 06/29/2025 2:50 PM CDT Neuromuscular dysfunction of bladder, unspecified Encounter for fitting and adjustment of urinary device Personal history of urinary (tract) infections UA W/ SEDIMENT EXAM REFLEXED PER CRITERIA Routine 06/29/2025 2:50 PM CDT Neuromuscular dysfunction of bladder, unspecified Encounter for fitting and adjustment of urinary device Personal history of urinary (tract) infections from Last 3 Months Results * (ABNORMAL) URINALYSIS MICROSCOPIC (06/29/2025 2:50 PM CDT) RBC 11-25(A) 0-2, None Seen /HPF 06/29/2025 4:37 PM CDT [facility] WBC 11-25(A) 0-2, 3-5, None Seen /HPF 06/29/2025 4:37 PM CDT [facility] BACTERIA Moderate(A) None Seen, Rare, Few Bacteria/ HPF 06/29/2025 4:37 PM CDT [facility] EPITHELIAL CELLS Many(A) None Seen, Few Epi/HPF 06/29/2025 4:37 PM CDT [facility] Mucus Present 06/29/2025 4:37 PM CDT [facility] Urine URINE SPECIMEN / Unknown Client Collect / Unknown 06/29/2025 2:50 PM CDT 06/29/2025 4:21 PM CDT us Maria Fernanda Linares SKI PATROL URINE Final Resul t [facility] [address] [place] [address] * (ABNORMAL) URINE CULTURE (06/29/2025 2:50 PM CDT) CULTURE RESULT(A) 07/01/2025 7:33 AM CDT [facility] CULTURE 50,000-100,000 CFU/mL Escherichia coli 07/01/2025 7:33 AM CDT [facility] CULTURE <10,000 CFU/mL Multiple organisms probable contaminants 07/01/2025 7:33 AM CDT [facility] Urine URINE SPECIMEN / Unknown Client Collect / Unknown 06/29/2025 2:50 PM CDT 06/29/2025 4:21 PM CDT Narrative Organism Antibiotic Method Susceptibility Escherichia coli TRIMETHOPRIM/SULF >=16/304: R Escherichia coli AMPICILLIN >=32: R Escherichia coli CEFAZOLIN 4: I Escherichia coli CEFAZOLIN-UC 4: S Comment:Cefazolin-UC interpretations are for therapy of uncomplicated UTIs due to E.coli, K.pneumoniae, or P.mirablis. Cefazolin breakpoint is used as a surrogate to predict results for the oral agents - cefdinir, cefuroxime, and cephalexin, when used for therapy of uncomplicated UTIs due to E coli, K, pneumoniae, and P. mirabilis. The FDA recommends cefadroxil susceptibility can be deduced from cefazolin. Escherichia coli GENTAMICIN <=1: S Escherichia coli CEFTRIAXONE <=0.25: S Escherichia coli CEFTAZIDIME <=0.5: S Escherichia coli LEVOFLOXACIN >=8: R Escherichia coli CIPROFLOXACIN >=4: R Escherichia coli PIPERACILLIN/TAZO <=4: S Escherichia coli AMPICILLIN/SULBACTAM 16: I Escherichia coli CEFEPIME <=0.12: S Escherichia coli MEROPENEM <=0.25: S Escherichia coli NITROFURANTOIN <=16: S us Maria Fernanda Linares NP MICROBIOLOGY Final Resul t [facility] [address] [place] [address], * (ABNORMAL) UA W/ SEDIMENT EXAM REFLEXED PER CRITERIA (06/29/2025 2:50 PM CDT) COLOR Yellow Yellow Color 06/29/2025 4:36 PM CDT [facility] CLARITY Clear Clear Clarity 06/29/2025 4:36 PM CDT [facility] SPECIFIC GRAVITY,URINE >=1.030(A) 1.010, 1.015, 1.020, 1.025 06/29/2025 4:36 PM CDT [facility] PH,URINE 6.0 6.0, 7.0, 8.0, 5.5, 6.5, 7.5, 8.5 06/29/2025 4:36 PM CDT [facility] UROBILINOGEN, QUALITATIVE Normal Normal EU/dl 06/29/2025 4:36 PM CDT [facility] PROTEIN, URINE 100(A) Negative mg/dL 06/29/2025 4:36 PM CDT [facility] GLUCOSE, URINE Negative Negative mg/dL 06/29/2025 4:36 PM CDT [facility] KETONES,URINE Trace(A) Negative mg/dL 06/29/2025 4:36 PM CDT [facility] BILIRUBIN,URI NE Negative Negative 06/29/2025 4:36 PM CDT [facility] OCCULT BLOOD,URINE Large(A) Negative 06/29/2025 4:36 PM CDT [facility] NITRITE Negative Negative 06/29/2025 4:36 PM CDT [facility] LEUKOCYTE ESTERASE Negative Negative 06/29/2025 4:36 PM CDT [facility] Urine URINE SPECIMEN / Unknown Client Collect / Unknown 06/29/2025 2:50 PM CDT 06/29/2025 4:21 PM CDT us Maria Fernanda Linares SKI PATROL URINE Final Resul t [facility] [address] [place] [address] from Last 3 Months Insurance MEDICARE PART B HB ONLY [place] BLUE HB ONLY [place] MEDICARE ADVANTAGE MR Care Teams Financial Services Auditor Relationship Specialty Start Date End Date Maria Fernanda Linares NP [address] [address] PCP - General Nurse Practitioner 08/04/25
--- OUTSIDE RECORDS SUMMARY | 2025-09-16 12:07 | XMS_ITS | Encounter Summary ---
Author Organization [place] Address [address] [facility] [place] [address] Care Team Providers Care Youtuber Name Role Phone Andrew Lu MD Primary Care Provider [phone] Niko Resendiz MD Primary Care Provider Carlie Mac MD Primary Care Provide r Angella Mendieta MD Primary Care Provider Julito Banuelos MD Primary Care Provider [phone] Julito Banuelos MD Unavailable Julito Banuelos MD Unavailable Aleshia Henriquez RD Unavailable Unavailable Mary Kay Jones [facility] Unavailable Unavailable Susannah Blankenship [facility] Unavailable [phone] Carolyn Huynh [facility] Unavailable [phone] Vika Kevin APRN SUPERVISOR MAINTENANCE Unavailable + Marilyn Willard MD Unavailable [phone] Carie Varela DO Unavailable [phone] Maylin May NP Unavailable [phone] Marisa Rodrigues RN Unavailable Unavailable Vilma Long MD Unavailable + [phone] Yasmeen Pendleton [facility] Unavailable [phone] Cole George Unavailable Fletcher Russell Unavailable Unavailable Bautista Casey MD Unavailable AnnyJasmyn tracey [facility] Unavailable [phone] Vika Kevin APRN [facility] Primary Care Prov ider Vika Kevin APRN [facility] Primary Care Prov ider Yasmeen Pendleton [facility] Unavailable [phone] Vika Kevin APRN [facility] Primary Care Prov ider Reason for Visit * Reason Onset Date Comments Refill Request 05/02/2012 Encounter Details Date Type Department Care Team (Late st Contact Info) Description 05/02/2012 MyC Refill [address] [address] Andrew Lu MD XXX RETIRED XXX [address] [place] [phone] Refill Request Social History Tobacco Use [...] file 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 Gender Identity Not on file Sexual [...] capsule [Andrew Lu MD, MD] Preferred pharmacy: [facility] Comment: documented in this encounter Plan of Treatment Not on file documented as of this encounter Visit Diagnoses Diagnosis Cellulitis of leg- Primary Cellulitis and abscess of leg, except foot documented in this encounter Additional Health Concerns Infection Onset Date Last Indicated Resolved Time Rule Out COVID-19 07/25/2020 07/25/2020 07/26/2020 3:02 PM CDT Rule Out COVID-19 12/04/2020 12/04/2020 12/05/2020 6:04 PM ELECTRONIC IMAGING SYSTEM OPERATOR documented as of this encounter Care Teams Youtuber Relationship Specialty Start Date End Date Andrew Lu MD XXX RETIRED XXX [address] [place] [phone] PCP - General 12/10/01 01/10/14 Niko Resendiz MD [address] [place] [address] PCP - General Internal Medicine 01/11/14 01/29/14 Carlie Mac MD [address] [place] [address] PCP - General Pediatrics 01/30/14 07/17/15 Angella Mendieta MD [address] [place] [address], [place] [address] PCP - General Family Practice 07/18/15 09/11/15 Julito Banuelos MD [address] [place] [address] PCP - General Family Practice 09/12/15 09/23/21 Julito Banuelos MD [address] [place] [address], [place] [address] PCP - Assigned PCP 02/17/16 12/28/18 Vika Kevin APRN SUPERVISOR MAINTENANCE [address] [place] [address] PCP - General Nurse Practitioner - Family 09/24/21 03/05/22 Vika Kevin APRN SUPERVISOR MAINTENANCE [address] [place] [address] PCP - General Nurse Practitioner - Family 03/18/22 06/18/22 Vika Kevin APRN SUPERVISOR MAINTENANCE [address] [place] [address] PCP - General Nurse Practitioner - Family 07/24/22 Julito Banuelos MD [address] [place] [address] Assigned PCP 02/17/16 07/21/[address] [place] [address] Scrap Stripper Hand Dietitian, Registered 04/14/19 Mary Kay Jones, [facility] Pharmacist 08/01/19 04/20/20 Susannah Blankenship, [facility] [address] [facility] [address] [place], [place] [address] Pharmacist Pharmacist 08/08/19 04/15/21 Carolyn Huynh, [facility] [address] [place] [address] Pharmacist Pharmacist 06/25/20 04/15/21 Vika Kevin, NEWSPAPER INSERTER SUPERVISOR MAINTENANCE [address] [place] [address] [id number] Assigned PCP 07/22/20 11/16/24 Marilyn Willard MD [address] [facility] [address] [place], [place] [address] Assigned Surgical Provider 08/17/20 08/16/24 Carie Varela DO [address] [place] [address]805 Assigned Heart and Vascular Provider 08/17/20 01/19/21 Maylin May NP [address] [place], [place] [id number] Assigned Pediatric Specialist Provider 12/16/20 06/13/22 Marisa Rodrigues, RN Clinic Home Decorator 01/15/21 02/26/21 Vilma Long MD [address] [place] [id number] Assigned Heart and Vascular Provider 01/20/21 07/20/21 Yasmeen Pendleton, [facility] [address] [place] [address] Pharmacist Pharmacist 06/04/21 01/15/22 Cole George LISW Lead Home Decorator 06/13/21 10/07/21 Fletcher Up Community Health Worker 06/13/21 09/12/21 Bautista Casey MD [address] [place] [address] Assigned Heart and Vascular Provider 07/21/21 01/16/23 Jasmyn Oliver CHW [facility] Health Worker 09/13/21 10/07/21 Yasmeen Pendleton [facility] [address] [place] [address] Assigned MTM Pharmacist 03/22/22 01/02/23 documented as of this encounter
--- OUTSIDE RECORDS SUMMARY | 2025-09-16 12:07 | XMS_ITS | Encounter Summary ---
Author Organization [place] Address [address] [facility] [address] Care Team Providers Care Roll Tester Name Role Phone Julito Banuelos MD Primary Care Provider [phone] Julito Banuelos MD Unavailable Aleshia [address]quez RD Unavailable Unavailable MaryK ay Jones [facility] Unavailable Unavailable Susannah Blankenship [facility] Unavailable Carolyn Huynh [facility] Unavailable [phone] Vika Kevin APRN LINE RUNNER Unavailable + Marilyn Willard MD Unavailable [phone] Carie Varela DO Unavailable [phone] Maylin May NP Unavailable [phone] Marisa Hernandez RN Unavailable Unavailable Vilma Long MD Unavailable Yasmeen Pendleton [facility] Unavailable [phone] Cole George Unavailable Fletcher Russell Unavailable Unavailable Bautista Casey MD Unavailable Jasmyn Oliver CHW Unavailable [phone] Vika Kevin APRN LINE RUNNER Primary Care Prov ider Vika Kevin APRN [facility] Primary Care Prov ider Yasmeen Pendleton [facility] Unavailable [phone] Vika Kevin APRN [facility] Primary Care Prov ider Reason for Visit * Reason Comments Medication Refill Encounter Details Date Type Department Care Team (Late st Contact Info) Description 02/23/[address] [phone] [place] [address] [place] [address] Medication Refill Social History Tobacco Use [...] on file 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 Gender Identity Not on file Sexual Orientation [...] review/approval because: Age Range Nazanin Zhong RN [facility] documented in this encounter Plan of [...] Out COVID-19 12/04/2020 12/04/2020 12/05/2020 6:04 PM WEATHER STRIP MECHANIC Assessment Noted Time PHQ-9 Depression Total Score: 8 07/18/20 19 12:06 PM CDT documented as of this encounter Care Teams Roll Tester Relationship Specialty Start Date End Date Julito Banuelos MD [address] [place] [address] PCP - General Family Practice 09/12/15 09/23/21 Vika Kevin APRN LINE RUNNER [address] [place] [address] PCP - General Nurse Practitioner - Family 09/24/21 03/05/22 Vika Kevin APRN LINE RUNNER [address] [place] [address] PCP - General Nurse Practitioner - Family 03/18/22 06/18/22 Vika Kevin APRN LINE RUNNER [address] [place] [address] PCP - General Nurse Practitioner - Family 07/24/22 Julito Banuelos MD [address] [place] [address] Assigned PCP 02/17/16 07/21/[address] [place] [address] Blow Torch Operator Dietitian, Registered 04/14/19 Mary Kay Jones, [facility] Pharmacist 08/01/19 04/20/20 Susannah Blankenship, [facility] [address] [facility] [address] [place], [place] [address] Pharmacist Pharmacist 08/08/19 04/15/21 Carolyn Huyhn, [facility] [address] [place] [address] Pharmacist Pharmacist 06/25/20 04/15/21 Vika Kevin, EVENT SET UP SPECIALIST LINE RUNNER [address] [place] [address] 275752 Assigned PCP 07/22/20 11/16/24 Marilyn iWllard MD 420 [facility] 394 [place], [place] 25[address] Assigned Surgical Provider 08/17/20 08/16/24 Carie Varela DO [address] [place] [id number] Assigned Heart and Vascular Provider 08/17/20 01/19/21 Maylin May NP [address] [place], [place] [id number] Assigned Pediatric Specialist Provider 12/16/20 06/13/22 Marisa Rodrigues, RN Clinic Rehabilitation Counselor 01/15/21 02/26/21 Vilma Long MD [address] [place] [address] Assigned Heart and Vascular Provider 01/20/21 07/20/21 Yasmeen Pendleton, [facility] [address] [place] [address] Pharmacist Pharmacist 06/04/21 01/15/22 Cole George LISW Lead Rehabilitation Counselor 06/13/21 10/07/21 Fletcher Up Community Health Worker 06/13/21 09/12/21 Bautista Casey MD [address] [place] [address] Assigned Heart and Vascular Provider 07/21/21 01/16/23 Jasmyn Oliver CHW [facility] Health Worker 09/13/21 10/07/21 Yasmeen Pendleton [facility] [address] [place] [address] Assigned MTM Pharmacist 03/22/22 01/02/23 documented as of this encounter
--- OUTSIDE RECORDS SUMMARY | 2025-09-16 12:07 | XMS_ITS | Encounter Summary ---
Author Organization [place] Address [address] [facility] [place] [address] Care Team Providers Care Plastic Frame Inserter Name Role Phone Andrew Lu MD Primary Care Provider [phone] Niko Resendiz MD Primary Care Provider Carlie Mac MD Primary Care Provide r Angella Mendieta MD Primary Care Provider Julito Banuelos MD Primary Care Provider [phone] Julito Banuelos MD Unavailable Julito Banuelos MD Unavailable Aleshia Henriquez RD Unavailable Unavailable Mary Kay Jones [facility] Unavailable Unavailable Susannah Blankenship [facility] Unavailable [phone] Carolyn Huynh [facility] Unavailable [phone] Vika Kevin APRN DIAGNOSTIC SALES SPECIALIST Unavailable + Marilyn Willard MD Unavailable [phone] Carie Varela DO Unavailable [phone] Maylin May NP Unavailable [phone] Marisa Rodrigues RN Unavailable Unavailable Vilma Long MD Unavailable + [phone] Yasmeen Pendleton [facility] Unavailable [phone] Cole George Unavailable Fletcher Russell Unavailable Unavailable Bautista Casey MD Unavailable AnnyJasmyn tracey [facility] Unavailable [phone] Vika Kevin APRN [facility] Primary Care Prov ider Vika Kevin APRN [facility] Primary Care Prov ider Yasmeen Pendleton [facility] Unavailable [phone] [facility] Primary Care Prov ider Encounter Details Date Type Department Care Team (Late st Contact Info) Description 06/23/[address] [address] Andrew Lu MD XXX RETIRED XXX [address] [place] [phone] OP REPT (Primary Dx) Social History [...] on file 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 Chronic sinusitis. 2. [...] recover from anesthesia. Toni LOPEZ MD Document: [id number] [place], [place] MARIALUISA COSBY OPERATIV E REPORT Page 2 of 2 LCN:SDS DSC: 06/23/2003 [place], [place] Name: MR #: : Procedure Date: [...] Out COVID-19 12/04/2020 12/04/2020 12/05/2020 6:04 PM FLYER MAKER documented as of this encounter Care Teams Plastic Frame Inserter Relationship Specialty Start Date End Date Andrew Lu MD XXX RETIRED XXX [address] [place] [phone] PCP - General 12/10/01 01/10/14 Niko Resendiz MD [address] [address] PCP - General Internal Medicine 01/11/14 01/29/14 Carlie Mac MD [address] [place] [address] PCP - General Pediatrics 01/30/14 07/17/15 Angella Mendieta MD [address] [place] [address] PCP - General Family Practice 07/18/15 09/11/15 Julito Banuelos MD [address] [place] [address] PCP - General Family Practice 09/12/15 09/23/21 Julito Banuelos MD [address] [place] [address] PCP - Assigned PCP 02/17/16 12/28/18 Vika Kevin APRN DIAGNOSTIC SALES SPECIALIST [address] [place] [address] PCP - General Nurse Practitioner - Family 09/24/21 03/05/22 Vika Kevin APRN DIAGNOSTIC SALES SPECIALIST [address] [place] [address] PCP - General Nurse Practitioner - Family 03/18/22 06/18/22 Vika Kevin APRN DIAGNOSTIC SALES SPECIALIST [address] [place] [address] PCP - General Nurse Practitioner - Family 07/24/22 Julito Banuelos MD [address] [place] [address] Assigned PCP 02/17/16 07/21/20 Aleshia Henriquez, DAVE [address] [place] [address] Retail Loan Officer Dietitian, Registered 04/14/19 Mary Kay Jones, [facility] Pharmacist 08/01/19 04/20/20 Susannah BlankenshipCOX MONETT [address] [place] [address] 8[address] [place], [place] [address] Pharmacist Pharmacist 08/08/19 04/15/21 Carolyn [facility] [address] [place], [place] [address] Pharmacist Pharmacist 06/25/20 04/15/21 Vika Kevin APRN DIAGNOSTIC SALES SPECIALIST [address] [place] [address] Assigned PCP 07/22/20 11/16/24 Marilyn Willard MD [address] [place] [address] [address] [place], [place] 80[address]25 Assigned Surgical Provider 08/17/20 08/16/24 Carie Varela DO [address] [place], [place] [address] Assigned Heart and Vascular Provider 08/17/20 01/19/21 Maylin May NP [address] [place] [address] Assigned Pediatric Specialist Provider 12/16/20 06/13/22 Marisa Rodrigues, RN Clinic Spot Worker 01/15/21 02/26/21 Vilma Long MD [address] [place] [address] Assigned Heart and Vascular Provider 01/20/21 07/20/21 [facility] [address] [place] [address] Pharmacist Pharmacist 06/04/21 01/15/22 Cole George LISW Lead Spot Worker 06/13/21 10/07/21 Fletcher Up Community Health Worker 06/13/21 09/12/21 Bautista Casey MD [address] [place] [address] Assigned Heart and Vascular Provider 07/21/21 01/16/23 Jasmyn Oliver CHW Community Health Worker 09/13/21 10/07/21 [facility] [address] [place], [place] [address] Assigned MTM Pharmacist 03/22/22 01/02/23 documented as of this encounter
--- OUTSIDE RECORDS SUMMARY | 2025-09-16 12:07 | XMS_ITS | Encounter Summary ---
Author Organization [place] Address [address] [facility] [place] [address] Care Team Providers Care Per Diem Rn Name Role Phone Cortez Lu MD Primary Care Provider [phone] Niko Resendiz MD Primary Care Provider Carlie Mac MD Primary Care Provide r Angella Mendieta MD Primary Care Provider Julito Banuelos MD Primary Care Provider [phone] Julito Banuelos MD Unavailable Julito Banuelos MD Unavailable Aleshia Henriquez RD Unavailable Unavailable Mary Kay Jones [facility] Unavailable Unavailable Susannah Blankenship [facility] Unavailable [phone] Carolyn Huynh [facility] Unavailable [phone] Vika Kevin APRN REFINERY OPERATOR [employer] Unavailable + Marilyn Willard MD Unavailable [phone] Carie Varela DO Unavailable [phone] Maylin May NP Unavailable [phone] Marisa Rodrigues RN Unavailable Unavailable Vilma Long MD Unavailable + [phone] Yasmeen Pendleton [facility] Unavailable + [phone] Cole George Unavailable Fletcher Russell Unavailable Unavailable Bautista Casey MD Unavailable Jasmyn Oliver [facility] Unavailable [phone] Vika Kevin APRN [facility] Primary Care Prov ider Vika Kevin APRN [facility] Primary Care Prov ider Yasmeen Pendleton [facility] Unavailable + [phone] Vika Kevin [facility] Primary Care Prov ider Encounter Details Date Type Department Care Team (Late st Contact Info) Description 02/01/2013 Office Visit-[facility] Heart [address] [place] [address] Reji Davis MD [address] [place], [place] [id number] Social History Tobacco Use Types Packs/Day Years Used Date Smoking Tobacco: Former Cigarettes 0.3 15 0 10/26/1961 - 10/26/1976 Smokeless Tobacco: Never Alcohol Use Standard Drinks/Week Comments Yes 0 (1 standard drink = 0.6 oz pur e alcohol) 1-2 glasses of wine weekly Comments No Sex and Gender Information Value Date Recorded Sex Assigned at Not on file 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 Diabetes Smjopeuc-Xzc-Rzaecnw Dependent, 250.00 2. - Hyperlipidemia mixed, 272.2 3. - Hypertension, 401.1 4. - CAD, 414.00 ALLERGIES lisinopril Nitrofurantoin Nitrofurantoin Macrocrystal pramipexole Di-HCl Sulfasalazine tolterodine tartrate zolpidem tartrate MEDICATIONS (prior to changes made today) 1. Asmanex Twisthaler 220 mcg (120 doses) Aerosol Powdr [facility] ActivInhl, Take as Directed 2. aspirin, buffered [...] 9. Nasacort AQ 55 mcg Aerosol, [place], Take as Directed 10. Plavix 75 mg [...] HISTORY OF PRESENT ILLNESS INDICATION: History of cwj-PP-ottbnwt elevation AL, here to establish care. Ms. Cosby is a very pleasant 72-year-old female with a history of hypertension, hyperlipidemia,and type 2 diabetes mellitus. She was wintering in [place] when she developed acute onset one evening of back pain with radiation into her chest. She also had associated slight shortness of breath. She had had complaints of shortness of breath with exertion for some time, but it appeared worse the several weeks prior to this event. She subsequently went to the Emergency Room and was found to havehad a eox-VI-epxplbr elevation AL. On 12/27/12 she was taken to the Cardiac Catheterization Lab at [facility] in [place], [place]. There she was found to have significant disease of the left circumflex artery. She underwent two drug-eluting stent implantations. The first was a 2.5x12 mm Merrill Resolute drug-eluting stent to the mid circumflex. The second was a 3.0x15 mm Merrill Resolute drug-eluting stent to the proximal left [...] on the echocardiogram. She has returned to [place] and states that she has been feeling tired but she has had no recurrent anginal symptoms. She denies any recurrent back pain or shortness of breath. Currently she has been having some dyspnea with exertion but she attributes this to not having taken her Lasix as she recently drove back from [place]. She is planning to take her Lasix over the next several days. She denies any orthopnea. No paroxysmal nocturnal dyspnea. No nausea, vomiting, diaphoresis, syncope, or presyncope. PAST HISTORY Past Medical Illnesses: asthma, HTN, hypothyoidism, diabetes, hyperlipidemia, major depression, anxiety Past Cardiac Illnesses: CAD, s/p AL Surgeries/Procedures - General: hysterectomy Cardiac/Vasc Procedures-Invasive: left heart cath 12/2012 ([place]) Cardiology Procedures-NonInvasive: echocardiogram Jun 2007, myocardial perfusion (Nuc) Jun 2007, echo 12/2012 ([place]) Cardiac Cath Results: 12/2012 Merrill Resolute NELIA to the mid and prox [...] - lives with and been living in [place] for 3 months; Place of - [place]; [...] takes allergy shots, allergies get worse in [place] but they can get bad in [place] too PHYSICAL EXAMINATION VITAL SIGNS: Blood Pressure: [...] (Zero) Nasacort AQ 55 mcg Aerosol, [place], Take as Directed, #0 (Zero) Plavix 75 [...] (Zero) Physician Order IMPRESSIONS/PLAN 1. History of wfe-KE-gtbayce elevation AL. 2. Coronary artery disease - status post [...] her up for cardiac rehab in the [place] office since this is where she lives. [...] days while she was traveling back from [place]. She is to contact the clinic should [...] Out COVID-19 12/04/2020 12/04/2020 12/05/2020 6:04 PM MATRIX PLATER documented as of this encounter Care Teams Per Diem Rn Relationship Specialty Start Date End Date Cortez Lu MD XXX RETIRED XXX [address] [place] [address] PCP - General 12/10/01 01/10/14 Niko Resendiz MD [address] [address] PCP - General Internal Medicine 01/11/14 01/29/14 Carlie Mac MD [address] [place] [address] PCP - General Pediatrics 01/30/14 07/17/15 Angella Mendieta MD [address] [place] [address] PCP - General Family Practice 07/18/15 09/11/15 Julito Banuelos MD [address] [place] [address] PCP - General Family Practice 09/12/15 09/23/21 Julito Banuelos MD [address] [place] [address] PCP - Assigned PCP 02/17/16 12/28/18 Vika Kevin APRN REFINERY OPERATOR [employer] [address] [place] [address] PCP - General Nurse Practitioner - Family 09/24/21 03/05/22 Vika Kevin APRN REFINERY OPERATOR [employer] [address] [place] [address] PCP - General Nurse Practitioner - Family 03/18/22 06/18/22 Vika Kevin APRN REFINERY OPERATOR [employer] [address] [place] [address] PCP - General Nurse Practitioner - Family 07/24/22 Julito Banuelos MD [address] [place] [address] 375762 Assigned PCP 02/17/16 07/21/[address] [place] [address] Stator Connector Dietitian, Registered 04/14/19 Mary Kay Jones, [facility] Pharmacist 08/01/19 04/20/20 [facility] [address] [place] [address] [address] [place], [place] [address] Pharmacist Pharmacist 08/08/19 04/15/21 Carolyn Huynh [facility] [address] [place], [place] [address] Pharmacist Pharmacist 06/25/20 04/15/21 Vika Kevin APRN REFINERY OPERATOR [employer] [address] [place] [address] 121892 Assigned PCP 07/22/20 11/16/24 Marilyn Willard MD [address] [place] [address] [address] [place], [place] [address] Assigned Surgical Provider 08/17/20 08/16/24 Carie Varela DO [address] [place], [place] [address] Assigned Heart and Vascular Provider 08/17/20 01/19/21 Maylin May NP [address] [place], [place] [id number] Assigned Pediatric Specialist Provider 12/16/20 06/13/22 Marisa Rodrigues, RN Clinic Forming Tube Selector 01/15/21 02/26/21 Vilma Long MD [address] [place] [address] Assigned Heart and Vascular Provider 01/20/21 07/20/21 [facility] [address] [place], [place] [address] Pharmacist Pharmacist 06/04/21 01/15/22 Cole George LISW Lead Forming Tube Selector 06/13/21 10/07/21 Fletcher Up Community Health Worker 06/13/21 09/12/21 Bautista Casey MD [address] [place] [address] Assigned Heart and Vascular Provider 07/21/21 01/16/23 Jasmyn Oliver CHW Community Health Worker 09/13/21 10/07/21 Yasmeen Pendleton [facility] [address] [place] [address] Assigned MTM Pharmacist 03/22/22 01/02/23 documented as of this encounter
--- OUTSIDE RECORDS SUMMARY | 2025-09-16 12:07 | XMS_ITS | Encounter Summary ---
Author Organization [place] Address [address] [facility] [address] Care Team Providers Care Plant Operator Control Room Operator Name Role Phone Andrew Lu MD Primary Care Provider [phone] Niko Resendiz MD Primary Care Provider Carlie Mac MD Primary Care Provide r Angella Mendieta MD Primary Care Provider Julito Banuelos MD Primary Care Provider [phone] Julito Banuelos MD Unavailable Julito Banuelos MD Unavailable Aleshia Henriquez RD Unavailable Unavailable Mary Kay Jones [facility] Unavailable Unavailable Susannah Blankenship [facility] Unavailable [phone] Carolyn Huynh [facility] Unavailable [phone] Vika Kevin APRN MONUMENT SETTER HELPER Unavailable + Marilyn Willard MD Unavailable [phone] Carie Varela DO Unavailable [phone] Maylin May NP Unavailable [phone] Marisa Rodrigues RN Unavailable Unavailable Vilma Long MD Unavailable + [phone] Yasmeen Pendleton [facility] Unavailable [phone] Cole George Unavailable Fletcher Russell Unavailable Unavailable Bautista Casey MD Unavailable DemetriusJasmyn wright [facility] Unavailable [phone] Vika Kevin APRN [facility] Primary Care Prov ider Vika Kevin APRN [facility] Primary Care Prov ider Yasmeen Pendleton [facility] Unavailable [facility] Primary Care Prov ider Reason for Visit * Reason Onset Date Comments Refill Request 01/06/2011 Encounter Details Date Type Department Care Team (Late st Contact Info) Description 01/06/[address] [address] Andrew Lu MD XXX RETIRED XXX [address] [place] [address] Refill Request Social History Tobacco Use Types Packs/Day Years Used Date Smoking Tobacco: Former Cigarettes 0.3 15 0 10/26/1961 - 10/26/1976 Alcohol Use Standard Drinks/Week Comments Yes 0 (1 standard drink = 0.6 oz pur e alcohol) 1 wine 2x qweek Comments No Sex and Gender Information Value Date Recorded Sex Assigned at Not on file Legal Sex Female 3:22 AM FISHING MANAGER Gender Identity Not on file Sexual [...] Out COVID-19 12/04/2020 12/04/2020 12/05/2020 6:04 PM FISHING MANAGER documented as of this encounter Care Teams Plant Operator Control Room Operator Relationship Specialty Start Date End Date Andrew Lu MD XXX RETIRED XXX [address] [place] [address] PCP - General 12/10/01 01/10/14 Niko Resendiz MD [address] [place] [address] PCP - General Internal Medicine 01/11/14 01/29/14 Carlie Mac MD [address] [place] [address] PCP - General Pediatrics 01/30/14 07/17/15 Angella Mendieta MD [address] [place] [address] PCP - General Family Practice 07/18/15 09/11/15 Julito Banuelos MD [address] [place] [address] PCP - General Family Practice 09/12/15 09/23/21 Julito Banuelos MD [address] [place] [address] PCP - Assigned PCP 02/17/16 12/28/18 Vika Kevin APRN MONUMENT SETTER HELPER [address] [place] [address] PCP - General Nurse Practitioner - Family 09/24/21 03/05/22 Vika Kevin APRN MONUMENT SETTER HELPER [address] [place] [address] PCP - General Nurse Practitioner - Family 03/18/22 06/18/22 Vika Kevin APRN MONUMENT SETTER HELPER [address] [place] [address] PCP - General Nurse Practitioner - Family 07/24/22 Julito Banuelos MD [address] [place] [address] Assigned PCP 02/17/16 07/21/[address] [place] [address] Slot Machine Key Person Dietitian, Registered 04/14/19 Mary Kay Jones, [facility] Pharmacist 08/01/19 04/20/20 Susannah Blankenship, [facility] [address] [facility] [address] [place] [address] Pharmacist Pharmacist 08/08/19 04/15/21 Carolyn Huynh, [facility] [address] [place], [place] [address] Pharmacist Pharmacist 06/25/20 04/15/21 Vika Kevin, JAIME MONUMENT SETTER HELPER [address] [place] [address] Assigned PCP 07/22/20 11/16/24 Marilyn Willard MD [address] [facility] [address] [place], [place] [address] Assigned Surgical Provider 08/17/20 08/16/24 Carie Varela DO [address] [place] [address] Assigned Heart and Vascular Provider 08/17/20 01/19/21 Maylin May NP [address] [place] [address] Assigned Pediatric Specialist Provider 12/16/20 06/13/22 Marisa Rodrigues, RN Clinic E Commerce Director 01/15/21 02/26/21 Vilma Long MD [address] [place] [address] Assigned Heart and Vascular Provider 01/20/21 07/20/21 [facility] [address] [place] [address] Pharmacist Pharmacist 06/04/21 01/15/22 Cole George LISW Lead E Commerce Director 06/13/21 10/07/21 Fletcher Up Community Health Worker 06/13/21 09/12/21 Bautista Casey MD [address] [place] [address] Assigned Heart and Vascular Provider 07/21/21 01/16/23 Jasmyn Oliver CHW Community Health Worker 09/13/21 10/07/21 [facility] [address] [place] [address] Assigned MTM Pharmacist 03/22/22 01/02/23 documented as of this encounter
--- OUTSIDE RECORDS SUMMARY | 2025-09-16 12:07 | XMS_ITS | Encounter Summary ---
Author Organization [place] Address [address] [facility] [place] [address] Care Team Providers Care Customer Assistance Associate Name Role Phone Angella Mendieta MD Primary Care Provider Julito Banuelos MD Primary Care Provider [phone] Julito Banuelos MD Unavailable Julito Banuelos MD Unavailable Aleshia Henriquez RD Unavailable Unavailable Mary Kay Jones [facility] Unavailable Unavailable Susannah Blankenship [facility] Unavailable Carolyn Huynh [facility] Unavailable [phone] Vika Kevin APRN SUPERVISOR BOTTLE MACHINES Unavailable + Marilyn Willard MD Unavailable Carie Varela DO Unavailable [phone] Maylin May NP Unavailable [phone] Marisa Rodrigues RN Unavailable Unavailable Vilma Long MD Unavailable + [phone] Yasmeen Pendleton [facility] Unavailable [phone] Cole George Unavailable Fletcher Russell Unavailable Unavailable Bautista Casey MD Unavailable [phone] Jasmyn Oliver CHW Unavailable [phone] Vika Kevin APRN [facility] Primary Care Prov ider Vika Kevin APRN [facility] Primary Care Prov ider + Yasmeen Pendleton [facility] Unavailable Vika Kevin APRN [facility] Primary Care Prov ider + Encounter Details Date Type Department Care Team (Late st Contact Info) Description 08/16/2015 MyC Medical Advice [facility] [place] [address] [facility] [address] [place] [address] Jaimee Donald MD HEART [facility] [address] [facility] [address] [place], [place] [address] Social History Tobacco Use Types Packs/Day Years Used Date Smoking Tobacco: Former Cigarettes 0.3 15 0 10/26/1961 - 10/26/1976 Smokeless Tobacco: Never Alcohol Use Standard Drinks/Week Comments Yes 0 (1 standard drink = 0.6 oz pur e alcohol) 1-2 glasses of wine weekly Comments No Sex and Gender Information Value Date Recorded Sex Assigned at Not on file Legal Sex Female 3:22 AM PAINTER DRUM Gender Identity Not on file Sexual Orientation [...] Out COVID-19 12/04/2020 12/04/2020 12/05/2020 6:04 PM PAINTER DRUM documented as of this encounter Care Teams Customer Assistance Associate Relationship Specialty [place] [address] [place] [address] PCP - General Family Practice 07/18/15 09/11/15 Julito Banuelos MD [address] [place] [address] PCP - General Family Practice 09/12/15 09/23/21 Julito Banuelos MD [address] [place] [address] PCP - Assigned PCP 02/17/16 12/28/18 Vika Kevin APRN SUPERVISOR BOTTLE MACHINES [address] [place] [address] PCP - General Nurse Practitioner - Family 09/24/21 03/05/22 Vika Kevin APRN SUPERVISOR BOTTLE MACHINES [address] [place] [address] PCP - General Nurse Practitioner - Family 03/18/22 06/18/22 Vika Kevin APRN SUPERVISOR BOTTLE MACHINES [address] [place] [address] PCP - General Nurse Practitioner - Family 07/24/22 Julito Banuelos MD [address] [place] [address] Assigned PCP 02/17/16 07/21/[address] [place] [address] Ticket Maker Dietitian, Registered 04/14/19 Mary Kay Jones, [facility] Pharmacist 08/01/19 04/20/20 Susannah Blankenship, [facility] [address] [facility] [address] [place] [address] Pharmacist Pharmacist 08/08/19 04/15/21 Carolyn Huynh [facility] [address] [place] [address] Pharmacist Pharmacist 06/25/20 04/15/21 Vika Kevin APRN SUPERVISOR BOTTLE MACHINES [address] [place] [address] 536522 Assigned PCP 07/22/20 11/16/24 Marilyn Willard MD 420 [facility] [address] [place], [place] [address] Assigned Surgical Provider 08/17/20 08/16/24 Carie Varela DO [address] [place] [address] Assigned Heart and Vascular Provider 08/17/20 01/19/21 Maylin May NP [address] [facility] [place], [place] [address] Assigned Pediatric Specialist Provider 12/16/20 06/13/22 Marisa Rodrigues, RN Clinic Branch Billing Payroll Clerk 01/15/21 02/26/21 Vilma Long MD [address] [place] [address] Assigned Heart and Vascular Provider 01/20/21 07/20/21 Yasmeen Pendleton [facility] [address] [place], [place] [address] Pharmacist Pharmacist 06/04/21 01/15/22 Cole George LISW Lead Branch Billing Payroll Clerk 06/13/21 10/07/21 Fletcher Up Community Health Worker 06/13/21 09/12/21 Bautista Casey MD [address] [place], [place] [address] Assigned Heart and Vascular Provider 07/21/21 01/16/23 Jasmyn Oliver CHW Community Health Worker 09/13/21 10/07/21 Yasmeen Pendleton [facility] [address] [place] [address] Assigned MTM Pharmacist 03/22/22 01/02/23 documented as of this encounter
--- OUTSIDE RECORDS SUMMARY | 2025-09-16 12:07 | XMS_ITS | Patient Health Record ---
Author Organization [facility] Address [address] [place] [address] Care Team Providers Care Architectural Design Lecturer Name Role Phone Vin Julito Primary Care Provider SAMMIE Go Unavailable [phone] Vika Kevin Unavailable Unavailable Reason For Referral [...] MCG Tablet Oral; Duration: 90 Active Nystatin 904888 UNIT/ML Suspension Mouth/Throat; Duration: 10 Active Sertraline HCl 100 MG Tablet Oral; Duration: 90 Active Nystatin 749790 UNIT/ML Suspension 4 ml Mouth/Throat Four times [...] W/U Status Risk Notes Problem Throat pain (793512240) Throat pain (R07.0) Active confirmed Plan Of Treatment No Information Insurance Providers Payer Name Payer Address Payer Phone Subscriber Number Group Number Insured Name Patient Relationship to Insured Coverage Start Date Coverage End Date [employer] [place] [employer] [address] [address] [place], [place] [id number] Pat Emmanuel Self - patient is the insured Medical (General) History Medical History History ICD Code Asthma Heart HTN Easy bleeding Diabetes Surgical History Surgery Date(Month/Year) Hysterectomy
--- OUTSIDE RECORDS SUMMARY | 2025-09-16 12:07 | XMS_ITS | Encounter Summary ---
Author Organization [place] Address [address] [facility] [place] [address] Care Team Providers Care Philosophy Professor Name Role Phone Cortez Lu MD Primary Care Provider [phone] Niko Resendiz MD Primary Care Provider Carlie Mac MD Primary Care Provide r Angella Mendieta MD Primary Care Provider Julito Banuelos MD Primary Care Provider [phone] Julito Banuelos MD Unavailable Julito Banuelos MD Unavailable Aleshia Henriquez RD Unavailable Unavailable Mary Kay Jones [facility] Unavailable Unavailable Susannah Blankenship [facility] Unavailable +[phone] Carolyn Huynh [facility] Unavailable [phone] Vika Kevin APRN LABOR SPECIALIST Unavailable + Marilyn Willard MD Unavailable +[phone] Carie Varela DO Unavailable [phone] Maylin May NP Unavailable [phone] Marisa Rodrigues RN Unavailable Unavailable Vilma Long MD Unavailable + [phone] Yasmeen Pendleton [facility] Unavailable + [phone] Cole George Unavailable Fletcher Russell Unavailable Unavailable Bautista MD Unavailable [phone] [address] [facility] Unavailable [phone] Vika Kevin APRN [facility] Primary Care Prov ider Vika Kevin APRN [facility] Primary Care Prov ider Yasmeen Pendleton [facility] Unavailable + [phone] Vika Kevin [facility] Primary Care Prov ider Encounter Details Date Type Department Care Team (Late st Contact Info) Description 04/22/2013 Office Visit-[facility] Heart [address] [place] [address] Reji Davis MD [address] [place], [place] [id number] Social History Tobacco Use Types Packs/Day Years Used Date Smoking Tobacco: Former Cigarettes 0.3 15 0 10/26/1961 - 10/26/1976 Smokeless Tobacco: Never Alcohol Use Standard Drinks/Week Comments Yes 0 (1 standard drink = 0.6 oz pur e alcohol) 1-2 glasses of wine weekly Comments No Sex and Gender Information Value Date Recorded Sex Assigned at Not on file Legal Sex Female 3:22 AM IRONER SOCK Gender Identity Not on file Sexual Orientation Not on file Occupation Industry Job Start Date Job End Date Not on file Not on file Not on file Not on file documented as of this encounter Progress Notes * Reji Davis MD - 04/26/2013 1:24 PM CDT Progress Note Created by: Reji Davis MD #[id number] DATE: 04/22/2013 MARIALUISA COSBY DATE OF : 1940 AGE: [age] years old Referring Physician: CORTEZ LU Referring Clinic: [facility] CURRENT DIAGNOSES 1. Diabetes Ukslcyzu-Gwa-Jjcpnba Dependent, 250.00 2. - Hyperlipidemia mixed, 272.2 [...] daily 12. Nasacort AQ 55 mcg Aerosol, [place], Take as Directed 13. Plavix 75 mg [...] circumflex artery in December of 2012 at [facility] in [place], [place] following presentation for non-ST segment elevation [place]. I last saw her inApril of this [...] Leg syndrome Past Cardiac Illnesses: CAD, s/p [place] Surgeries/Procedures - General: hysterectomy Cardiac/Vasc Procedures-Invasive: left heart cath 12/2012 ([place]) Cardiology Procedures-NonInvasive: echocardiogram Jun 2007, myocardial perfusion (Nuc) Jun 2007, echo 12/2012 ([place]), stress echo February 2013 Cardiac Cath Results: 12/2012 [place] [facility] NELIA to the mid and prox [...] - lives with and been living in [place] for 3 months; Place of - [place]; REVIEW OF SYSTEMS GENERAL fatigue, weight loss, [...] takes allergy shots, allergies get worse in [place] but they can get bad in [place] too PHYSICAL EXAMINATION VITAL SIGNS: Blood Pressure: [...] similar to what she had in [place] then I will need to see her [...] Out COVID-19 12/04/2020 12/04/2020 12/05/2020 6:04 PM IRONER SOCK documented as of this encounter Care Teams Philosophy Professor Relationship Specialty Start Date End Date Cortez Lu MD XXX RETIRED XXX [address] [place] [phone] PCP - General 12/10/01 01/10/14 Niko Resendiz MD [address] [place] [address] PCP - General Internal Medicine 01/11/14 01/29/14 Carlie Mac MD [address] [place] [address] PCP - General Pediatrics 01/30/14 07/17/15 Angella Mendieta MD [facility] [place] [address] PCP - General Family Practice 07/18/15 09/11/15 Julito Banuelos MD [address] [place] [address] PCP - General Family Practice 09/12/15 09/23/21 Julito Banuelos MD [address] [place] [address] PCP - Assigned PCP 02/17/16 12/28/18 Vika Kevin APRN LABOR SPECIALIST [address] [place] [address] PCP - General Nurse Practitioner - Family 09/24/21 03/05/22 Vika Kevin APRN LABOR SPECIALIST [address] [place] [address]393 PCP - General Nurse Practitioner - Family 03/18/22 06/18/22 Vika Kevin APRN LABOR SPECIALIST [address] [place] [address] PCP - General Nurse Practitioner - Family 07/24/22 Julito Banuelos MD [address] [place] [address] 08694 Assigned PCP 02/17/16 07/21/[address] [place] [address] Linen Folder Dietitian, Registered 04/14/19 Mary Kay Jones [facility] 08/01/19 04/20/20 Susannah Blankenship, [facility] [address] [place] [address] [address] [place] [address] Pharmacist Pharmacist 08/08/19 04/15/21 Carolyn Huynh [facility] [address] [place] [address] Pharmacist Pharmacist 06/25/20 04/15/21 Vika Kevin, JAIME LABOR SPECIALIST [address] [place] [address] 345932 Assigned PCP 07/22/20 11/16/24 Marilyn Willard MD [address] [facility] [address] [place], [place] [address] Assigned Surgical Provider 08/17/20 08/16/24 Carie Varela DO [address] [place] [address] Assigned Heart and Vascular Provider 08/17/20 01/19/21 Maylin May NP [address] [place], [place] [id number] Assigned Pediatric Specialist Provider 12/16/20 06/13/22 Marisa Rodrigues, RN Clinic Director Child Development Center 01/15/21 02/26/21 Vilma Long MD [address] [place] [address] Assigned Heart and Vascular Provider 01/20/21 07/20/21 Yasmeen Pendleton [facility] [address] [place], [place] 27[address] Pharmacist Pharmacist 06/04/21 01/15/22 Cole George LISW Lead Director Child Development Center 06/13/21 10/07/21 Fletcher Up Community Health Worker 06/13/21 09/12/21 Bautista Casey MD [address] [place], [place] [address] Assigned Heart and Vascular Provider 07/21/21 01/16/23 Jasmyn Oliver CHW Community Health Worker 09/13/21 10/07/21 Yasmeen Pendleton [facility] [address] [place] [address] Assigned MTM Pharmacist 03/22/22 01/02/23 documented as of this encounter
--- OUTSIDE RECORDS SUMMARY | 2025-09-16 12:07 | XMS_ITS | Encounter Summary ---
Author Organization [place] Address [address] [facility] [place] [address] Care Team Providers Care Regional Sales Trainer Name Role Phone Andrew Lu MD Primary Care Provider [phone] Niko Resendiz MD Primary Care Provider Carlie Mac MD Primary Care Provide r Angella Mendieta MD Primary Care Provider Julito Banuelos MD Primary Care Provider [phone] Julito Banuelos MD Unavailable Julito Banuelos MD Unavailable Aleshia Henriquez RD Unavailable Unavailable Mary Kay Jones [facility] Unavailable Unavailable Susannah Blankenship [facility] Unavailable [phone] Carolyn Huynh [facility] Unavailable +[phone] Vika Kevin APRN DOCUMENT PROCESSING SPECIALIST Unavailable + Marilyn Willard MD Unavailable [phone] Carie Varela DO Unavailable [phone] Maylin May NP Unavailable [phone] Marisa Rodrigues RN Unavailable Unavailable Vilma Long MD Unavailable + [phone] Yasmeen Pendleton [facility] Unavailable + [phone] Cole George Unavailable Fletcher Russell Unavailable Unavailable Bautista Casey MD Unavailable [phone] DemetriusJasmyn wright [facility] Unavailable +[phone] Vkia Kevin APRN [facility] Primary Care Prov ider Vika Kevin APRN [facility] Primary Care Prov ider Yasmeen Pendleton [facility] Unavailable + [phone] Vika Kevin APRN [facility] Primary Care Prov ider Encounter Details Date Type Department Care Team (Late st Contact Info) Description 02/04/[address] [phone] Veronica [place] Social History Tobacco Use Types Packs/Day Years Used Date Smoking Tobacco: Former Cigarettes 0.3 15 0 10/26/1961 - 10/26/1976 Smokeless Tobacco: Never Alcohol Use Standard Drinks/Week Comments Yes 0 (1 standard drink = 0.6 oz pur e alcohol) 1-2 glasses of wine weekly Comments No Sex and Gender Information Value Date Recorded Sex Assigned at Not on file Legal Sex Female 3:22 AM OBEDIENCE TRAINER Gender Identity Not on file Sexual [...] Out COVID-19 12/04/2020 12/04/2020 12/05/2020 6:04 PM OBEDIENCE TRAINER documented as of this encounter Care Teams Regional Sales Trainer Relationship Specialty Start Date End Date Andrew Lu MD XXX RETIRED XXX [address] [place] [phone] PCP - General 12/10/01 01/10/14 Niko Resendiz MD [address] [place] [address] PCP - General Internal Medicine 01/11/14 01/29/14 Carlie Mac MD [address] [place] [address] PCP - General Pediatrics 01/30/14 07/17/15 Angella Mendieta MD [address] [place] [address] PCP - General Family Practice 07/18/15 09/11/15 Julito Bnauelos MD [address] [place] [address] PCP - General Family Practice 09/12/15 09/23/21 Julito Banuelos MD [address] [place] [address] PCP - Assigned PCP 02/17/16 12/28/18 Vika Kevin APRN DOCUMENT PROCESSING SPECIALIST [address] [place] [address]336 PCP - General Nurse Practitioner - Family 09/24/21 03/05/22 Vika Kevin APRN DOCUMENT PROCESSING SPECIALIST [address] [place] [address] 29680 PCP - General Nurse Practitioner - Family 03/18/22 06/18/22 Vika Kevin APRN DOCUMENT PROCESSING SPECIALIST [address] [place] [address] 406452 PCP - General Nurse Practitioner - Family 07/24/22 Julito Banuelos MD [address] [place] [address] 833392 Assigned PCP 02/17/16 07/21/[address] [place] [address] Spaghetti Machine Operator Dietitian, Registered 04/14/19 Mary Kay Jones, [facility] Pharmacist 08/01/19 04/20/20 [facility] [address] [place] [address] [address] [place], [place] [address] Pharmacist Pharmacist 08/08/19 04/15/21 [facility] [address] [place], [place] 59[address] Pharmacist Pharmacist 06/25/20 04/15/21 Vika Kevin APRN DOCUMENT PROCESSING SPECIALIST [address] [place] [address] 249952 Assigned PCP 07/22/20 11/16/24 Marilyn Willard MD [address] [place] [address] [address] [place] [address] Assigned Surgical Provider 08/17/20 08/16/24 Carie Varela DO [address] [place], [place] 4[address] Assigned Heart and Vascular Provider 08/17/20 01/19/21 Maylin May NP [address] [place], [place] [address] Assigned Pediatric Specialist Provider 12/16/20 06/13/22 Marisa Rodrigues, RN Clinic Food Mixer Assembler 01/15/21 02/26/21 Vilma Long MD [address] [place] [address] Assigned Heart and Vascular Provider 01/20/21 07/20/21 [facility] [address] [place] [address] Pharmacist Pharmacist 06/04/21 01/15/22 Cole George LISW Lead Food Mixer Assembler 06/13/21 10/07/21 Fletcher Up Community Health Worker 06/13/21 09/12/21 Bautista Casey MD [address] [place] [address] Assigned Heart and Vascular Provider 07/21/21 01/16/23 Jasmyn Oliver CHW Community Health Worker 09/13/21 10/07/21 [facility] [address] [place] [address] [id number] Assigned MTM Pharmacist 03/22/22 01/02/23 documented as of this encounter
--- OUTSIDE RECORDS SUMMARY | 2025-09-16 12:07 | XMS_ITS | Encounter Summary ---
Author Organization [place] Address [address] [facility] [place] [address] Care Team Providers Care Hydrostatic Tester Name Role Phone Julito Banuelos MD Primary Care Provider [phone] Julito Banuelos MD Unavailable Aleshia Henriquez RD Unavailable Unavailable Susannah Blankenship [facility] Unavailable [phone] Carolyn Huynh [facility] Unavailable [phone] Vika Kevin APRN GEOGRAPHIC INFORMATION SYSTEMS ENGINEER Unavailable + Marilyn Willard MD Unavailable [phone] Carie Varela DO Unavailable [phone] Maylin May NP Unavailable [phone] Marisa Hernandez RN Unavailable Unavailable Vilma Long MD Unavailable + [phone] Yasmeen Pendleton [facility] Unavailable Cole George Unavailable Fletcher Russell Unavailable Unavailable Bautista Casey MD Unavailable [phone] Jasmyn Oliver Unavailable +[phone] Vika Kevin APRN GEOGRAPHIC INFORMATION SYSTEMS ENGINEER Primary Care Prov ider Vika Kevin APRN [facility] Primary Care Prov ider Yasmeen Pendleton [facility] Unavailable Vika Kevin APRN [facility] Primary Care Prov ider Encounter Details Date Type Department Care Team (Late st Contact Info) Description 05/15/2020 MyC Medical Advice [address] [place] [address] Susannah Blankenship, [facility] [address] [facility] [address] [place] [address] Social History Tobacco Use Types Packs/Day Years [...] on file Legal Sex Female 3:22 AM PULMONARY PHYSICIAN Gender Identity Not on file Sexual Orientation [...] Out COVID-19 12/04/2020 12/04/2020 12/05/2020 6:04 PM PULMONARY PHYSICIAN Assessment Noted Time PHQ-9 Depression Total Score: 8 07/18/20 19 12:06 PM CDT documented as of this encounter Care Teams Hydrostatic Tester Relationship Specialty [place] [address] [place] [address] PCP - General Family Practice 09/12/15 09/23/21 Vika Kevin APRN GEOGRAPHIC INFORMATION SYSTEMS ENGINEER [address] [place] [address] PCP - General Nurse Practitioner - Family 09/24/21 03/05/22 Vika Kevin APRN GEOGRAPHIC INFORMATION SYSTEMS ENGINEER [address] [place] [address] PCP - General Nurse Practitioner - Family 03/18/22 06/18/22 Vika Kevin APRN GEOGRAPHIC INFORMATION SYSTEMS ENGINEER [address] [place] [address] PCP - General Nurse Practitioner - Family 07/24/22 Julito Banuelos MD [address] [place] [address] 014962 Assigned PCP 02/17/16 07/21/[address] [place] [address] 00867 Dimpling Machine Operator Dietitian, Registered 04/14/19 Susannah Blankenship, [facility] [address] [place] [address] 8[address] [place] [address] Pharmacist Pharmacist 08/08/19 04/15/21 Carolyn Huynh [facility] [address] [place] [address] Pharmacist Pharmacist 06/25/20 04/15/21 Vika Kevin APRN GEOGRAPHIC INFORMATION SYSTEMS ENGINEER [address] [place] [address] Assigned PCP 07/22/20 11/16/24 Marilyn Willard MD [address] [place] [address] [address] [place] [address] Assigned Surgical Provider 08/17/20 08/16/24 Carie Varela DO [address] [place] [address] Assigned Heart and Vascular Provider 08/17/20 01/19/21 Maylin May NP [address] [place] [address] Assigned Pediatric Specialist Provider 12/16/20 06/13/22 Marisa Rodrigues, RN Clinic Supervisor Shipping Room 01/15/21 02/26/21 Vilma Long MD [address] [place] [address] Assigned Heart and Vascular Provider 01/20/21 07/20/21 Yasmeen Pendleton [facility] [address] [place] [address] [phone] Pharmacist Pharmacist 06/04/21 01/15/22 Cole George LISW Lead Supervisor Shipping Room 06/13/21 10/07/21 Fletcher Up Community Health Worker 06/13/21 09/12/21 Bautista Casey MD [address] [place] [address] Assigned Heart and Vascular Provider 07/21/21 01/16/23 Jasmyn Oliver CHW Community Health Worker 09/13/21 10/07/21 Yasmeen Pendleton [facility] [address] [place] [address] Assigned MTM Pharmacist 03/22/22 01/02/23 documented as of this encounter
--- OUTSIDE RECORDS SUMMARY | 2025-09-16 12:07 | XMS_ITS | Encounter Summary ---
Author Organization [place] Address [address] [facility] [place] [address] Care Team Providers Care Fire Management Officer Name Role Phone Andrew Lu MD Primary Care Provider [phone] Niko Resendiz MD Primary Care Provider Carlie Mac MD Primary Care Provide r Angella Mendieta MD Primary Care Provider Julito Banuelos MD Primary Care Provider [phone] Julito Banuelos MD Unavailable Julito Banuelos MD Unavailable Aleshia Henriquez RD Unavailable Unavailable Mary Kay Jones [facility] Unavailable Unavailable Susannah Blankenship [facility] Unavailable [phone] Carolyn Huynh [facility] Unavailable [phone] Vika Kevin APRN STOREKEEPER HELPER Unavailable + Marilyn Willard MD Unavailable [phone] Carie Varela DO Unavailable [phone] Maylin May NP Unavailable [phone] Marisa Rodrigues RN Unavailable Unavailable Vilma Long MD Unavailable + [phone] Yasmeen Pendleton [facility] Unavailable +[phone] Cole George Unavailable Fletcher Russell Unavailable Unavailable Bautista Casey MD Unavailable [phone] TatyanaJasmyn anand [facility] Unavailable [phone] Vika Kevin APRN [facility] Primary Care Prov ider Vika Kevin APRN [facility] Primary Care Prov ider Yasmeen Pendleton [facility] Unavailable [phone] Vika Kevin APRN [facility] Primary Care Prov ider Encounter Details Date Type Department Care Team (Late st Contact Info) Description 07/02/[address] [phone] Jolene [place] Social History Tobacco Use Types [...] on file Legal Sex Female 3:22 AM TIRE RECAPPER Gender Identity Not on file Sexual Orientation Not on file documented as of this encounter Plan of Treatment Not on file documented as of this encounter Visit Diagnoses Not on filedocumented in this encounter Additional Health Concerns Infection Onset Date Last Indicated Resolved Time Rule Out COVID-19 07/25/2020 07/25/2020 07/26/2020 3:02 PM CDT Rule Out COVID-19 12/04/2020 12/04/2020 12/05/2020 6:04 PM TIRE RECAPPER documented as of this encounter Care Teams Fire Management Officer Relationship Specialty Start Date End Date Andrew Lu MD XXX RETIRED XXX [address] [place] [phone] PCP - General 12/10/01 01/10/14 Niko Resendiz MD [address] [place] [address] [address] PCP - General Internal Medicine 01/11/14 01/29/14 Carlie Mac MD [address] [place] [address] PCP - General Pediatrics 01/30/14 07/17/15 Angella Mendieta MD [address] [place] [address] PCP - General Family Practice 07/18/15 09/11/15 Julito Banuelos MD [address] [place] [address] PCP - General Family Practice 09/12/15 09/23/21 Julito Banuelos MD [address] [place] [address] 6[address]66 PCP - Assigned PCP 02/17/16 12/28/18 Vika Kevin APRN STOREKEEPER HELPER [address] [place] [address] PCP - General Nurse Practitioner - Family 09/24/21 03/05/22 Vika Kevin APRN STOREKEEPER HELPER [address] [place] [address] 8[address]32 PCP - General Nurse Practitioner - Family 03/18/22 06/18/22 Vika Kevin APRN STOREKEEPER HELPER [address] [place] [address] 913032 PCP - General Nurse Practitioner - Family 07/24/22 Julito Banuelos MD [address] [place] [address] [phone] Assigned PCP 02/17/16 07/21/20 Aleshia Henriquez, DAVE [address] [place] [address] Project Manager Interior Design Dietitian, Registered 04/14/19 Mary Kay Jones, [facility] Pharmacist 08/01/19 04/20/20 Susannah Blankenship, [facility] [address] [place] [address] 8[address] [place], [place] [address] Pharmacist Pharmacist 08/08/19 04/15/21 [facility] [address] [place], [place] 350[address] Pharmacist Pharmacist 06/25/20 04/15/21 Vika Kevin APRN STOREKEEPER HELPER [address] [place] [address] 084032 Assigned PCP 07/22/20 11/16/24 Marilyn Willard MD [address] [facility] [address] [place], [place] 8[address] Assigned Surgical Provider 08/17/20 08/16/24 Carie Varela DO [address] [place], [place] [address] Assigned Heart and Vascular Provider 08/17/20 01/19/21 Maylin May, JENNY [address] [place] [address] Assigned Pediatric Specialist Provider 12/16/20 06/13/22 Marisa Rodrigues, RN Clinic Medical Laboratory Technologist 01/15/21 02/26/21 Vilma Long MD [address] [place] [address] Assigned Heart and Vascular Provider 01/20/21 07/20/21 Yasmeen Pendleton [facility] [address] [place] [address] Pharmacist Pharmacist 06/04/21 01/15/22 Cole George LISW Lead Medical Laboratory Technologist 06/13/21 10/07/21 Fletcher Up Community Health Worker 06/13/21 09/12/21 Bautista Casey MD [address] [place] [address] Assigned Heart and Vascular Provider 07/21/21 01/16/23 Jasmyn Oliver CHW Community Health Worker 09/13/21 10/07/21 Yasmeen Pendleton [facility] [address] [place] [address] [id number] Assigned MTM Pharmacist 03/22/22 01/02/23 documented as of this encounter
--- OUTSIDE RECORDS SUMMARY | 2025-09-16 12:07 | XMS_ITS ---
Author Organization [facility] Care Team Providers Care Waybill Clerk Name Role Phone Carline Purcell Unavailable Unavailable Jodie Olivares Unavailable Allergies and adverse reactions Code CodeSystem Substance Reaction Severity StartDate Concern Status 42145 RXNORM Cefdinir Unknown 09/09/2021 active 2231 RXNORM Cephalexin Unknown 09/09/2021 active 7454 RXNORM Nitrofurantoin Unknown 09/09/[address] Sulfa Antibiotics Unknown 09/09/2021 active 59289 RXNORM Trimethoprim Unknown 09/09/2021 active Care Team Name Role Address Phone Organization Dates Jodie Olivares PCP [facility] [place] [place], [address], [place] (Office): : (Pager): [facility] 09/10/2021 - 09/20/2021 Carline Purcell [address] [place] [address], [address], [place] (Office): (Pager): [facility] 09/10/2021 - 09/20/2021 Immunizations Immunization Status Vaccine [...] completed tuberculin skin test; unspecified formulation lotNumber: [id number] expiry: 01/17/2023 Mfg: sonafi Given 0.1 ml [...] indica julieta PHQ-9 10 moderate depres hilda Insurance Providers Problems Problem # Description Date of onset Resolved Date Code CodeSystem Concern Status 1 ACQUIRED ABSENCE OF BOTH CERVIX AND UTERUS 09/09/[address] active 2 ALZHEIMER'S DISEASE WITH EARLY ONSET 09/09/[address] active 3 ATHEROSCLEROTIC HEART DISEASE OF [place] CORONARY ARTERY WITH UNSPECIFIED ANGINA PECTORIS 09/09/[address] active 4 CHEST PAIN, UNSPECIFIED 09/09/[address] active 5 CHRONIC OBSTRUCTIVE PULMONARY DISEASE, UNSPECIFIED 09/09/[address] active 6 DEMENTIA IN OTHER DISEASES CLASSIFIED ELSEWHERE, UNSPECIFIED SEVERITY, WITHOUT BEHAVIORAL DISTURBANCE, PSYCHOTIC DISTURBANCE, MOOD DISTURBANCE, AND ANXIETY 09/09/[address] active 7 DISPLACED BIMALLEOLAR FRACTURE OF RIGHT LOWER LEG, SUBSEQUENT ENCOUNTER FOR OPEN FRACTURE TYPE I OR II WITH ROUTINE HEALING 09/09/[address] active 8 ESSENTIAL (PRIMARY) HYPERTENSION 09/09/[address] active 9 GASTRO-ESOPHAGEAL REFLUX DISEASE WITHOUT ESOPHAGITIS 09/09/[address] active 10 GENERALIZED ANXIETY DISORDER 09/09/[address] active 11 HYPERLIPIDEMIA, UNSPECIFIED 09/09/[address] active 12 HYPOTHYROIDISM, UNSPECIFIED 09/09/[address] active 13 IMMUNODEFICIENCY, UNSPECIFIED 09/09/[address] active 14 MAJOR DEPRESSIVE DISORDER, SINGLE EPISODE, UNSPECIFIED 09/09/[address] active 15 MODERATE PERSISTENT ASTHMA, UNCOMPLICATED 09/09/[address] active 16 MORBID (SEVERE) OBESITY DUE TO EXCESS CALORIES 09/09/[address] active 17 OTHER SPECIFIED ABNORMAL FINDINGS OF BLOOD CHEMISTRY 09/09/[address] active 18 OTHER SPECIFIED POSTPROCEDURAL STATES 09/09/[address] active 19 PERIPHERAL VASCULAR DISEASE, UNSPECIFIED 09/09/[address] active 20 PERSONAL HISTORY OF OTHER DISEASES OF URINARY SYSTEM 09/09/[address] active 21 PRESENCE OF RIGHT ARTIFICIAL KNEE JOINT 09/09/[address] active 22 PRESENCE OF UNSPECIFIED ARTIFICIAL HIP JOINT 09/09/[address] active 23 PRESENCE OF UROGENITAL IMPLANTS 09/09/[address] active 24 REPEATED FALLS 09/09/[address] active 25 RETENTION OF URINE, UNSPECIFIED 09/09/[address] active 26 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 09/09/[address] active 27 SYNCOPE AND COLLAPSE 09/09/[address] active 28 THORACIC AORTIC ECTASIA 09/09/[address] active 29 TRAUMATIC SUBDURAL HEMORRHAGE WITH LOSS OF CONSCIOUSNESS OF UNSPECIFIED DURATION, SUBSEQUENT ENCOUNTER 09/09/[address] active 30 TYPE 2 DIABETES MELLITUS WITH OTHER CIRCULATORY COMPLICATIONS 09/09/[address] active 31 UNSPECIFIED INTRACRANIAL INJURY WITHOUT LOSS OF CONSCIOUSNESS, SEQUELA 09/09/[address] active 32 UNSPECIFIED SENSORINEURAL HEARING LOSS 09/09/[address] active 33 UNSPECIFIED URETHRAL STRICTURE, MALE, UNSPECIFIED SITE 09/09/[address] active Reason for Referral No Reasons for Referral Entered Social History Social History Observation Description Start Date End Date Code Code System Current Smoking Status Tobacco smoking consumption unknown 739116225 SNOMED CT Sex Assigned At Female 1940 90174-9 [facility] Gender Identity Sexual Orientation Vital Signs Code Code System Vitals Name Values and Units Timing Information 49191-9 [facility] Pain Level Value=0.0 09/20/2021 33255-6 [facility] Weight Xjqjs=330.0 Units=Lbs 9279-1 [facility] Respiratory Rate Value=17.0 Units=/m in 09/20/2021 8462-4 [facility] Blood Pressure-Diastolic Value=78 Un its=mmHg 09/20/2021 8480-6 [facility] Blood Pressure-Systolic Elwwv=032 Un its=mmHg 09/20/2021 8310-5 [facility] Body Temperature Value=97.5 Units= F 09/20/2021 8867-4 [facility] Heart rate Value=83.0 Units=/min 25485-8 [facility] O2 % BldC Oximetry Value=93.0 Units= % 09/20/2021 2339-0 [facility] Blood Sugar Mfzwr=451.0 Units=mg/dL 09/17/2021 8302-2 [facility] Height Value=64.0 Units=Inches 09/10/2021
--- OUTSIDE RECORDS SUMMARY | 2025-09-16 12:07 | XMS_ITS | Encounter Summary ---
Author Organization [place] Address [address] [facility] [place] [address] Care Team Providers Care Director Of Product Management Name Role Phone Julito Banuelos MD Primary Care Provider [phone] Julito Banuelos MD Unavailable Aleshia Henriquez RD Unavailable Unavailable Mary Kay Jones [facility] Unavailable Unavailable Susannah Blankenship [facility] Unavailable Carolyn Huynh [facility] Unavailable [phone] Vika eKvin APRN HOLLOW CORE DOOR FRAME ASSEMBLER Unavailable + Marilyn Willard MD Unavailable [phone] Carie aVrela DO Unavailable [phone] Maylin May NP Unavailable [phone] Marisa Hernandez RN Unavailable Unavailable Vilma Long MD Unavailable Yasmeen Pendleton [facility] Unavailable [phone] Cole George Unavailable Fletcher Russell Unavailable Unavailable Bautista Casey MD Unavailable [phone] Jasmyn Oliver CHW Unavailable [phone] Vika Kevin APRN HOLLOW CORE DOOR FRAME ASSEMBLER Primary Care Prov ider Vika Kevin APRN [facility] Primary Care Prov ider Yasmeen Pendleton [facility] Unavailable + [phone] Vika Kevin APRN [facility] Primary Care Prov ider Encounter Details Date Type Department Care Team (Late st Contact Info) Description 03/28/2020 MyC Medical Advice [facility] [address] [address] Panda Sibley MD [address] [place], [place] [id number] Social History Tobacco Use Types Packs/Day Years [...] on file Legal Sex Female 3:22 AM COORDINATE MEASURING 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 Gender Identity Not on file [...] Out COVID-19 12/04/2020 12/04/2020 12/05/2020 6:04 PM COORDINATE MEASURING 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 Assessment Noted Time PHQ-9 Depression Total Score: 8 07/18/20 19 12:06 PM CDT documented as of this encounter Care Teams Director Of Product Management Relationship Specialty Start Date End Date Julito Banuelos MD [address] [place] [address] PCP - General Family Practice 09/12/15 09/23/21 Vika Kevin APRN HOLLOW CORE DOOR FRAME ASSEMBLER [address] [place] [address] PCP - General Nurse Practitioner - Family 09/24/21 03/05/22 Vika Kevin APRN HOLLOW CORE DOOR FRAME ASSEMBLER [address] [place] [address] [phone] PCP - General Nurse Practitioner - Family 03/18/22 06/18/22 Vika Kevin APRN HOLLOW CORE DOOR FRAME ASSEMBLER [address] [place] [address] 196162 PCP - General Nurse Practitioner - Family 07/24/22 Julito Banuelos MD [address] [place] [address] 377302 Assigned PCP 02/17/16 07/21/[address] [place] [address] Crib Pad Maker Dietitian, Registered 04/14/19 Mary Kay Jones [facility] Pharmacist 08/01/19 04/20/20 Susannah Blankenship [facility] [address] [place] [address] [address] [place], [place] [address] Pharmacist Pharmacist 08/08/19 04/15/21 Carolyn Huynh [facility] [address] [place], [place] [address] Pharmacist Pharmacist 06/25/20 04/15/21 Vika Kevin APRN HOLLOW CORE DOOR FRAME ASSEMBLER [address] [place], [place] [address] Assigned PCP 07/22/20 11/16/24 Marilyn Willard MD [address] [facility] [address] [place], [place] [address] Assigned Surgical Provider 08/17/20 08/16/24 Carie Varela DO [address] [place] [address] Assigned Heart and Vascular Provider 08/17/20 01/19/21 Maylin May NP [address] [place], [place] [address] Assigned Pediatric Specialist Provider 12/16/20 06/13/22 Marisa Rodrigues, RN Clinic Sorter Lumber Straightener 01/15/21 02/26/21 Vilma Long MD [address] [place] [address] Assigned Heart and Vascular Provider 01/20/21 07/20/21 Yasmeen Pendleton [facility] [address] [place] [address] Pharmacist Pharmacist 06/04/21 01/15/22 Cole George LISW Lead Sorter Lumber Straightener 06/13/21 10/07/21 Fletcher Up Community Health Worker 06/13/21 09/12/21 Bautista Casey MD [address] [place] [address] Assigned Heart and Vascular Provider 07/21/21 01/16/23 Jasmyn Oliver CHW Community Health Worker 09/13/21 10/07/21 Yasmeen Pendleton [facility] [address] [place] [address] Assigned MTM Pharmacist 03/22/22 01/02/23 documented as of this encounter
--- OUTSIDE RECORDS SUMMARY | 2025-09-16 12:07 | XMS_ITS | Encounter Summary ---
Author Organization [place] Address [address] [facility] [address] Care Team Providers Care Small Arms Repairer Name Role Phone Julito Banuelos MD Primary Care Provider [phone] Julito Banuelos MD Unavailable Julito Banuelos MD Unavailable Aleshia Henriquez RD Unavailable Unavailable Mary Kay Jones [facility] Unavailable Unavailable Susannah Blankenship [facility] Unavailable Carolyn Huynh [facility] Unavailable [phone] Vika Kevin APRN UNIT MANAGER CONVENIENCE [employer]ORES Unavailable + Marilyn Willard MD Unavailable Carie Varela DO Unavailable [phone] Maylin May NP Unavailable [phone] Marisa Rodrigues RN Unavailable Unavailable Vilma Long MD Unavailable Yasmeen Pendleton [facility] Unavailable [phone] Cole George Unavailable Fletcher Russell Unavailable Unavailable Bautista Casey MD Unavailable Jasmyn Oliver Unavailable [phone] Vika Kevin APRN [facility] Primary Care Prov ider Kevin Vika Delgado [facility] Primary Care Prov ider Yasmeen Pendleton [facility] Unavailable [phone] Herberth Vika Delgado [facility] Primary Care Prov ider Reason for Visit * Reason Onset Date Comments MyChart Communication 11/01/2018 Encounter Details Date Type Department Care Team (Late st Contact Info) Description 11/01/2018 MyC Medical Advice [address] [address] [place] [address] [place] [address] MyChart Communication Social History Tobacco Use [...] on file Legal Sex Female 3:22 AM DISPENSING OPERATOR Gender Identity Not on file Sexual Orientation Not on file Occupation Industry Job Start Date Job End Date Not on file Not on file Not on file Not on file documented as of this encounter Miscellaneous Notes * Telephone Encounter - Araseli Briceño RN - 11/16/2018 8:56 AM CST Urine is in process. YUE Mcdowell, RN, PHN [facility] Triage ) [phone] ENSING OPERATOR * Telephone Encounter - Leann Massey - 11/16/2018 8:28 AM CST The patient called and said her Ty is bringing in her urine. She wanted it noted that she is on an antibiotic right now. Leann Massey Patient Target Developer ENSING OPERATOR * Telephone Encounter - Araseli Briceño RN - 11/02/2018 2:37 PM CST Mychart note sent to patient. YUE Mcdowell, RN, PHN [facility]) [phone] ENSING OPERATOR * Telephone Encounter - Julito Banuelos MD - 11/02/2018 2:17 PM CST Please review with patient Can certainly try prevagen, have not seen neurologist recommend to date? ENSING OPERATOR * Telephone Encounter - Araseli Briceño RN - 11/02/2018 7:55 AM CST Forwarded to TS. Please review patient's [employer] message and advise. Araseli Briceño RN, BS, PHN ENSING OPERATOR documented in this encounter Plan of Treatment Not on file documented as of this encounter Visit Diagnoses Not on filedocumented in this encounter Additional Health Concerns Infection Onset Date Last Indicated Resolved Time Rule Out COVID-19 07/25/2020 07/25/2020 07/26/2020 3:02 PM CDT Rule Out COVID-19 12/04/2020 12/04/2020 12/05/2020 6:04 PM DISPENSING OPERATOR Assessment Noted Time PHQ-9 Depression Total Score: 4 04/27/20 18 7:12 AM CDT documented as of this encounter Care Teams Small Arms Repairer Relationship Specialty [place] [address] [place] [address] PCP - General Family Practice 09/12/15 09/23/21 Julito Banuelos MD [address] [place] [address] PCP - Assigned PCP 02/17/16 12/28/18 Vika Kevin APRN UNIT MANAGER [employer]VENIENCE STORES [address] [place] [address] PCP - General Nurse Practitioner - Family 09/24/21 03/05/22 Vika Kevin APRN UNIT MANAGER [employer]IENCE STORES [address] [place] [address] PCP - General Nurse Practitioner - Family 03/18/22 06/18/22 Vika Kevin APRN UNIT MANAGER [employer]IENCE STORES [address] [place] [address] 254012 PCP - General Nurse Practitioner - Family 07/24/22 Julito Banuelos MD [address] [place] [address] [id number] Assigned PCP 02/17/16 07/21/[address] [place] [address] Tour Guide Dietitian, Registered 04/14/19 Mary Kay Jones [facility] Pharmacist 08/01/19 04/20/20 Susannah Blankenship [facility] [address] [place] [address] [address] [place] [address] Pharmacist Pharmacist 08/08/19 04/15/21 Carolyn Huynh [facility] [address] [place], [place] [address] Pharmacist Pharmacist 06/25/20 04/15/21 KevinVika, PUBLIC TRANSIT TROLLEY DRIVER UNIT MANAGER [employer] [address], [place] [address] Assigned PCP 07/22/20 11/16/24 Marilyn Willard MD [address] [facility] [address] [place], [place] [address] Assigned Surgical Provider 08/17/20 08/16/24 Carie Varela DO [address] [place] [address] Assigned Heart and Vascular Provider 08/17/20 01/19/21 Maylin May NP [address] [place], [place] [address] Assigned Pediatric Specialist Provider 12/16/20 06/13/22 Marisa Rodrigues, RN Clinic Die Press Operator 01/15/21 02/26/21 Vilma Long MD [address] [place] [address] Assigned Heart and Vascular Provider 01/20/21 07/20/21 Yasmeen Pendleton [facility] [address] [place] [address] Pharmacist Pharmacist 06/04/21 01/15/22 Cole George LISW Lead Die Press Operator 06/13/21 10/07/21 Fletcher Up Community Health Worker 06/13/21 09/12/21 Bautista Casey MD [address] [place] [address] Assigned Heart and Vascular Provider 07/21/21 01/16/23 Jasmyn Oliver CHW Community Health Worker 09/13/21 10/07/21 Yasmeen Pendleton [facility] [address] [place] [address] Assigned MTM Pharmacist 03/22/22 01/02/23 documented as of this encounter
--- OUTSIDE RECORDS SUMMARY | 2025-09-16 12:07 | XMS_ITS | Encounter Summary ---
Author Organization [place] Address [address] [facility] [place] [address] Care Team Providers Care Certified Orthoptist Name Role Phone Aleshia Henriquez RD Unavailable Unavailable Vika Kevin APRN MOTION PICTURE EQUIPMENT MACHINIST Unavailable + Marilyn Willard MD Unavailable [phone] Maylin May NP Unavailable [phone] Ip, Bautista Bell MD Unavailable [phone] Vika Kevin APRN [facility] Primary Care Prov ider Vika Kevin APRN [facility] Primary Care Prov ider Yasmeen Pendleton [facility] Unavailable [phone] Vika Kevin APRN [facility] Primary Care Prov ider Encounter Details Date Type Department Care Team (Late st Contact Info) Description 02/12/2022 MyC Medical Advice [facility] [place] [address] [place] [address] Marilyn Chaves Social History Tobacco [...] and Family Not on file 06/14/2021 Attends Hinduism Services Not on file 06/14 Active Member [...] on file Legal Sex Female 3:22 AM HELPDESK ADMINISTRATOR Gender Identity Not on file Sexual [...] documented as of this encounter Care Teams Certified Orthoptist Relationship Specialty Start Date End Date Vika Kevin APRN MOTION PICTURE EQUIPMENT MACHINIST [address] [place] [address] PCP - General Nurse Practitioner - Family 09/24/21 03/05/22 Vika Kevin APRN MOTION PICTURE EQUIPMENT MACHINIST [address] [place] [address] PCP - General Nurse Practitioner - Family 03/18/22 06/18/22 Vika Kevin APRN MOTION PICTURE EQUIPMENT MACHINIST [address] [place] [address] PCP - General Nurse Practitioner - Family 07/24/[address] Vc++ Developer Dietitian, Registered 04/14/19 Vika Kevin APRN MOTION PICTURE EQUIPMENT MACHINIST [address] [place] [address] Assigned PCP 07/22/20 11/16/24 Marilyn Willard MD [address] [place] [address] Assigned Surgical Provider 08/17/20 08/16/24 Maylin May, JENNY [address] [place] [address] Assigned Pediatric Specialist Provider 12/16/20 06/13/22 Bautista Casey MD [address] [place] [address] Assigned Heart and Vascular Provider 07/21/21 01/16/23 Yasmeen Pendleton [facility] [address] [place] [address] Assigned MTM Pharmacist 03/22/22 01/02/23 documented as of this encounter
--- OUTSIDE RECORDS SUMMARY | 2025-09-16 12:07 | XMS_ITS | Encounter Summary ---
Author Organization [place] Address [address] [facility] [place] [address] Care Team Providers Care Clerical Investigator Name Role Phone Julito Banuelos MD Primary Care Provider [phone] Julito Banuelos MD Unavailable Aleshia Henriquez RD Unavailable Unavailable Mary Kay Jones [facility] Unavailable Unavailable Susannah Blankenship [facility] Unavailable Carolyn Huynh [facility] Unavailable [phone] Vika Kevin APRN PUBLIC ADMINISTRATION PROFESSOR Unavailable + Marilyn Willard MD Unavailable Carie Varela DO Unavailable [phone] Maylin May NP Unavailable [phone] Marisa Hernandez RN Unavailable Unavailable Vilma Long MD Unavailable Yasmeen Pendleton [facility] Unavailable Cole George Unavailable Fletcher Russell Unavailable Unavailable Bautista Casey MD Unavailable Jasmyn Oliver CHW Unavailable [phone] Vika Kevin APRN PUBLIC ADMINISTRATION PROFESSOR Primary Care Prov ider Vika Kevin APRN [facility] Primary Care Prov ider Yasmeen Pendleton [facility] Unavailable [phone] Vika Kevin APRN [facility] Primary Care Prov ider Encounter Details Date Type Department Care Team (Late st Contact Info) Description 02/13/2020 MyC Medical Advice [address] [place] [address] Mary Kay Jones, [facility] [...] on file Legal Sex Female 3:22 AM CAR TRIMMER Gender Identity Not on file Sexual Orientation [...] Out COVID-19 12/04/2020 12/04/2020 12/05/2020 6:04 PM CAR TRIMMER Assessment Noted Time PHQ-9 Depression Total Score: 8 07/18/20 19 12:06 PM CDT documented as of this encounter Care Teams Clerical Investigator Relationship Specialty [place] [address] [place] [address] PCP - General Family Practice 09/12/15 09/23/21 Vika Kevin APRN PUBLIC ADMINISTRATION PROFESSOR [address] [place] [address] [phone] PCP - General Nurse Practitioner - Family 09/24/21 03/05/22 Vika Kevin APRN PUBLIC ADMINISTRATION PROFESSOR [address] [place] [address] [phone] PCP - General Nurse Practitioner - Family 03/18/22 06/18/22 Vika Kevin APRN PUBLIC ADMINISTRATION PROFESSOR [address] [place] [address] PCP - General Nurse Practitioner - Family 07/24/22 Julito Banuelos MD [address] [place] [address] 102142 Assigned PCP 02/17/16 07/21/[address] [place] [address] Watch Crystal Edge Grinder Dietitian, Registered 04/14/19 Mary Kay Jones [facility] Pharmacist 08/01/19 04/20/20 Susannah Blankenship [facility] [address] [place] [address] 8[address] [place], [place] [address] Pharmacist Pharmacist 08/08/19 04/15/21 Carolyn Huynh [facility] [address] [place] [address] Pharmacist Pharmacist 06/25/20 04/15/21 Vika Kevin APRN PUBLIC ADMINISTRATION PROFESSOR [address] [place] [address] Assigned PCP 07/22/20 11/16/24 Marilyn Willard MD [address] [place] [address] [address] [place] [address] Assigned Surgical Provider 08/17/20 08/16/24 Carie Varela DO [address] [place] [address] Assigned Heart and Vascular Provider 08/17/20 01/19/21 Maylin May NP [address] [place] [address] Assigned Pediatric Specialist Provider 12/16/20 06/13/22 Marisa Rodrigues, RN Clinic Etiology Teacher 01/15/21 02/26/21 Vilma Long MD [address] [place] [address] Assigned Heart and Vascular Provider 01/20/21 07/20/21 Yasmeen Pendleton [facility] [address] [place] [address] Pharmacist Pharmacist 06/04/21 01/15/22 Cole George LISW Lead Etiology Teacher 06/13/21 10/07/21 Fletcher Up Community Health Worker 06/13/21 09/12/21 Bautista Casey MD [address] [place] [address] Assigned Heart and Vascular Provider 07/21/21 01/16/23 Jasmyn Oliver CHW Community Health Worker 09/13/21 10/07/21 Yasmeen Pendleton, [facility] [address] [place] [address] Assigned MTM Pharmacist 03/22/22 01/02/23 documented as of this encounter
--- OUTSIDE RECORDS SUMMARY | 2025-09-16 12:07 | XMS_ITS | Encounter Summary ---
Author Organization [place] Address [address] [facility] [place] [address] Care Team Providers Care Spray Pilot Name Role Phone Carlie Mac MD Primary Care Provide r Angella Mendieta MD Primary Care Provider Julito Banuelos MD Primary Care Provider [phone] Julito Banuelos MD Unavailable Julito Banuelos MD Unavailable Aleshia Henriquez RD Unavailable Unavailable Mary Kay Jones [facility] Unavailable Unavailable Susannah Blankenship [facility] Unavailable Carolyn Huynh [facility] Unavailable Vika Kevin APRN VOLUMETRIC WEIGHER Unavailable + Marilyn Willard MD Unavailable [phone] Carie Varela DO Unavailable Maylin May NP Unavailable [phone] Marisa Hernandez RN Unavailable Unavailable Vilma Long MD Unavailable Yasmeen Pendleton [facility] Unavailable Cole George Unavailable Fletcher Russell Unavailable Unavailable IpBautista MD Unavailable [phone] Jasmyn Oliver CH Unavailable [phone] Vika Kevin APRN [facility] Primary Care Prov ider Vika Kevin APRN [facility] Primary Care Prov ider Yasmeen Pendleton [facility] Unavailable Vika Kevin APRN [facility] Primary Care Prov ider Encounter Details Date Type Department Care Team (Late st Contact Info) Description 10/12/2014 MyC Medical Advice [address] [address] Sara Robison Y, MARKET RESEARCH COORDINATOR Social History Tobacco Use Types Packs/Day [...] file Legal Sex Female 3:22 AM LEAD CUSTODIAN Gender Identity Not on file Sexual Orientation [...] COVID-19 12/04/2020 12/04/2020 12/05/2020 6:04 PM LEAD CUSTODIAN documented as of this encounter Care Teams Spray Pilot Relationship Specialty Start Date End Date Carlie Mac MD [address] [place] [address] PCP - General Pediatrics 01/30/14 07/17/15 Angella Mendieta MD [address] [place] [address] PCP - General Family Practice 07/18/15 09/11/15 Julito Banuelos MD [address] [place] [address] PCP - General Family Practice 09/12/15 09/23/21 Julito Banuelos MD [address] [place] [address] PCP - Assigned PCP 02/17/16 12/28/18 Vika Kevin APRN VOLUMETRIC WEIGHER [address] [place] [address] PCP - General Nurse Practitioner - Family 09/24/21 03/05/22 Vika Kevin APRN VOLUMETRIC WEIGHER [address] [place] [address] PCP - General Nurse Practitioner - Family 03/18/22 06/18/22 Vika Kevin APRN VOLUMETRIC WEIGHER [address] [place] [address] PCP - General Nurse Practitioner - Family 07/24/22 Julito Banuelos MD [address] [place] [address] Assigned PCP 02/17/16 07/21/[address] [place] [address] Baker Dietitian, Registered 04/14/19 Mary Kay Jones, [facility] Pharmacist 08/01/19 04/20/20 Susannah Blankenship, [facility] [address] [facility] 812 [place] [address] Pharmacist Pharmacist 08/08/19 04/15/21 Carolyn Huynh, [facility] [address] [place], [place] [address] Pharmacist Pharmacist 06/25/20 04/15/21 Vika Kevin, DIALYSIS CHIEF EQUIPMENT TECHNICIAN VOLUMETRIC WEIGHER [address] [place] [address] 360652 Assigned PCP 07/22/20 11/16/24 Marilyn Willard MD 420 [facility] [address] [place], [place] [address] Assigned Surgical Provider 08/17/20 08/16/24 Carie Varela DO [address] [place] [address] Assigned Heart and Vascular Provider 08/17/20 01/19/21 Maylin May NP [address] [place] [address] Assigned Pediatric Specialist Provider 12/16/20 06/13/22 Marisa Rodrigues, RN Clinic Etl Database Developer 01/15/21 02/26/21 Vilma Long MD [address] [place] [address] Assigned Heart and Vascular Provider 01/20/21 07/20/21 Yasmeen Pendleton [facility] [address] [place] [address] Pharmacist Pharmacist 06/04/21 01/15/22 Cole George LISW Lead Etl Database Developer 06/13/21 10/07/21 Fletcher Up Community Health Worker 06/13/21 09/12/21 Bautista Casey MD [address] [place] [address] Assigned Heart and Vascular Provider 07/21/21 01/16/23 Jasmyn Oliver CHW Community Health Worker 09/13/21 10/07/21 Yasmeen Pendleton [facility] [address] [place] [address] Assigned MTM Pharmacist 03/22/22 01/02/23 documented as of this encounter
--- OUTSIDE RECORDS SUMMARY | 2025-09-16 12:08 | XMS_ITS | Encounter Summary ---
Author Organization [place] Address [address] [facility] [place] [address] Care Team Providers Care Tube Bender Hand Name Role Phone Niko Resendiz MD Primary Care Provider Carlie Mac MD Primary Care Provide r Angella Mendieta MD Primary Care Provider Julito Banuelos MD Primary Care Provider [phone] Julito Banuelos MD Unavailable Julito Banuelos MD Unavailable Aleshia Henriquez RD Unavailable Unavailable Mary Kay Jones RP Unavailable Unavailable Susannah Blankenship [facility] Unavailable [phone] Carolyn Huynh [facility] Unavailable [phone] Vika Kevin MEDICINAL PLANT PICKER NATURAL FABRICATOR Unavailable + Marilyn Willard MD Unavailable Carie Varela DO Unavailable [phone] Maylin May NP Unavailable [phone] Marisa Hernandez RN Unavailable Unavailable Vilma Long MD Unavailable + [phone] Yasmeen Pendleton [facility] Unavailable Cole George Unavailable Unavai jonathan Up Fletcher Unavailable Unavailable Ip, Bautista Bell MD Unavailable TatyanaJasmyn anand W Unavailable [phone] Vika Kevin MEDICINAL PLANT PICKER [facility] Primary Care Prov ider Vika Kevin [facility] Primary Care Prov ider Yasmeen Pendleton [facility] Unavailable + [phone] Vika Kevin [facility] Primary Care Prov ider Reason for Visit * Reason Onset Date Comments Other 01/28/2014 PCP change Encounter Details Date Type Department Care Team (Late st Contact Info) Description 01/28/2014 [facility] [place] Medical Advice [address] [address] Carlie Mac MD [address] [place] [address] Other (PCP change ) Social [...] on file Legal Sex Female 3:22 AM RESIDENTIAL APPLIANCE REPAIR TECHNICIAN Gender Identity Not on file Sexual [...] Out COVID-19 12/04/2020 12/04/2020 12/05/2020 6:04 PM RESIDENTIAL APPLIANCE REPAIR TECHNICIAN documented as of this encounter Care Teams Tube Bender Hand Relationship Specialty Start Date End Date Niko Resendiz MD [address] [place] [address] PCP - General Internal Medicine 01/11/14 01/29/14 Carlie Mac MD [address] [place] [address] PCP - General Pediatrics 01/30/14 07/17/15 Angella Mendieta MD [address] [place] [address] PCP - General Family Practice 07/18/15 09/11/15 Julito Banuelos MD [address] [place] [address] PCP - General Family Practice 09/12/15 09/23/21 Julito Banuelos MD [address] [place] [address] PCP - Assigned PCP 02/17/16 12/28/18 Vika Kevin APRN NATURAL FABRICATOR [address] [place] [address] PCP - General Nurse Practitioner - Family 09/24/21 03/05/22 Vika Kevin APRN NATURAL FABRICATOR [address] [place] [address] PCP - General Nurse Practitioner - Family 03/18/22 06/18/22 Vika Kevin, JAIME NATURAL FABRICATOR [address] [place] [address] 161622 PCP - General Nurse Practitioner - Family 07/24/22 Julito Banuelos MD [address] [place] [address] 351242 Assigned PCP 02/17/16 07/21/[address] [place] [address] Guard Immigration Dietitian, Registered 04/14/19 Mary Kay Jones, [facility] Pharmacist 08/01/19 04/20/20 Susannah Blankenship, [facility] 420 [facility] 812 [place], [place] [address] Pharmacist Pharmacist 08/08/19 04/15/21 [facility] [address] [place], [place] [address] Pharmacist Pharmacist 06/25/20 04/15/21 Vika Kevin, JAIME NATURAL FABRICATOR [address] [place] [address] 333452 Assigned PCP 07/22/20 11/16/24 Marilyn Willard MD 420 [facility] [address] [place], [place] [address] Assigned Surgical Provider 08/17/20 08/16/24 Carie Varela DO [address] [place] [address] Assigned Heart and Vascular Provider 08/17/20 01/19/21 Maylin May NP [address] [facility] [place] [address] Assigned Pediatric Specialist Provider 12/16/20 06/13/22 Marisa Rodrigues, RN Clinic Airport Operations Coordinator 01/15/21 02/26/21 Vilma Long MD [address] [place] [address] Assigned Heart and Vascular Provider 01/20/21 07/20/21 [facility] [address] [place] [address] Pharmacist Pharmacist 06/04/21 01/15/22 Cole George LISW Lead Airport Operations Coordinator 06/13/21 10/07/21 Fletcher Up Community Health Worker 06/13/21 09/12/21 Bautista Casey MD [address] [place] [address] Assigned Heart and Vascular Provider 07/21/21 01/16/23 Jasmyn Oliver CHW Community Health Worker 09/13/21 10/07/21 [facility] [address] [place] [address] Assigned MTM Pharmacist 03/22/22 01/02/23 documented as of this encounter
--- OUTSIDE RECORDS SUMMARY | 2025-09-16 12:08 | XMS_ITS | Encounter Summary ---
Author Organization [place] Address [address] [facility] [place] [address] Care Team Providers Care Beater Lead Name Role Phone Andrew Lu MD Primary Care Provider [phone] Niko Resendiz MD Primary Care Provider Carlie Mac MD Primary Care Provide r Angella Mendieta MD Primary Care Provider Julito Banuelos MD Primary Care Provider [phone] Julito Banuelos MD Unavailable Julito Banuelos MD Unavailable Aleshia Henriquez RD Unavailable Unavailable Mary Kay Jones [facility] Unavailable Unavailable Susannah Blankenship [facility] Unavailable [phone] Carolyn Huynh [facility] Unavailable [phone] Vika Kevin APRN FOOD SERVICE ASSISTANT Unavailable + Marilyn Willard MD Unavailable [phone] Carie Varela DO Unavailable [phone] Maylin May NP Unavailable [phone] Marisa Rodrigues RN Unavailable Unavailable Vilma Long MD Unavailable + [phone] Yasmeen Pendleton [facility] Unavailable [phone] Cole George Unavailable Fletcher Russell Unavailable Unavailable Bautista Casey MD Unavailable [phone] Jasmyn Oliver [facility] Unavailable [phone] Vika Kevin [facility] Primary Care Prov ider Vika Kevin APRN [facility] Primary Care Prov ider Yasmeen Pendleton [facility] Unavailable Vika Kevin [facility] Primary Care Prov ider Encounter Details Date Type Department Care Team (Late st Contact Info) Description 09/22/2010 MyC Medical Advice [address] [phone] Andrew Lu MD XXX RETIRED XXX [address] [place] [phone] Social History Tobacco Use Types Packs/Day Years Used Date Smoking Tobacco: Former Cigarettes 0.3 15 0 10/26/1961 - 10/26/1976 Alcohol Use Standard Drinks/Week Comments Yes 0 (1 standard drink = 0.6 oz pur e alcohol) 1 wine 2x qweek Comments No Sex and Gender Information Value Date Recorded Sex Assigned at Not on file Legal Sex Female 3:22 AM VENTILATION MECHANIC Gender Identity Not on file Sexual Orientation Not on file documented as of this encounter Miscellaneous Notes * Telephone Encounter - Andrew Lu - 10/02/2010 4:30 PM CST not clear why the results are taking so long? ILATION MECHANIC * Telephone Encounter - Vika Downing - 09/30/2010 3:17 PM CST The sleep study has not be read by DR Suggs yet. They will fax it over one it has been read. ILATION MECHANIC * Telephone Encounter - CoronaBo - 09/23/2010 10:28 AM CST Please get the sleep study results scanned int o epic. ILATION MECHANIC documented in this encounter Plan of Treatment Not on file documented as of this encounter Visit Diagnoses Not on filedocumented in this encounter Additional Health Concerns Infection Onset Date Last Indicated Resolved Time Rule Out COVID-19 07/25/2020 07/25/2020 07/26/2020 3:02 PM CDT Rule Out COVID-19 12/04/2020 12/04/2020 12/05/2020 6:04 PM VENTILATION MECHANIC documented as of this encounter Care Teams Beater Lead Relationship Specialty Start Date End Date Andrew Lu MD XXX RETIRED XXX [address] [place] [phone] PCP - General 12/10/01 01/10/14 Niko Resendiz MD [address] [address] PCP - General Internal Medicine 01/11/14 01/29/14 Carlie Mac MD [address] [place] [address] PCP - General Pediatrics 01/30/14 07/17/15 Angella Mendieta MD [address] [place] [address] PCP - General Family Practice 07/18/15 09/11/15 Julito Banuelos MD [address] [place] [address] PCP - General Family Practice 09/12/15 09/23/21 Julito Banuelos MD [address] [place] [address] PCP - Assigned PCP 02/17/16 12/28/18 Vika Kevin APRN FOOD SERVICE ASSISTANT [address] [place] [address] PCP - General Nurse Practitioner - Family 09/24/21 03/05/22 Vika Kevin APRN FOOD SERVICE ASSISTANT [address] [place] [address] PCP - General Nurse Practitioner - Family 03/18/22 06/18/22 Vika Kevin APRN FOOD SERVICE ASSISTANT [address] [place] [address] PCP - General Nurse Practitioner - Family 07/24/22 Julito Banuelos MD [address] [place] [address] Assigned PCP 02/17/16 07/21/[address] [place] [address] Director Of Field Sales Dietitian, Registered 04/14/19 Mary Kay Jones [facility] Pharmacist 08/01/19 04/20/20 Susannah Blankenship [facility] [address] [place] [address] 812 [place] [address] Pharmacist Pharmacist 08/08/19 04/15/21 Carolyn Huynh [facility] [address] [place] [address] Pharmacist Pharmacist 06/25/20 04/15/21 Vika Kevin APRN FOOD SERVICE ASSISTANT [address] [place], [place] 90[address] Assigned PCP 07/22/20 11/16/24 Marilyn Willard MD 420 [facility] [address] [place], [place] [address] Assigned Surgical Provider 08/17/20 08/16/24 Carie Varela DO [address] [place] [address] Assigned Heart and Vascular Provider 08/17/20 01/19/21 Maylin May NP [address] [facility] [place], [place] [id number] Assigned Pediatric Specialist Provider 12/16/20 06/13/22 Marisa Rodrigues RN Clinic Property Master 01/15/21 02/26/21 Vilma Long MD [address] [place] [address] Assigned Heart and Vascular Provider 01/20/21 07/20/21 Yasmeen Pendleton [facility] [address] [place] [address] Pharmacist Pharmacist 06/04/21 01/15/22 Cole George LISW Lead Property Master 06/13/21 10/07/21 Fletcher Up Community Health Worker 06/13/21 09/12/21 Bautista Casey MD [address] [place] [address] Assigned Heart and Vascular Provider 07/21/21 01/16/23 Jasmyn Oliver CHW Community Health Worker 09/13/21 10/07/21 Yasmeen Pendleton [facility] [address] [place], [place] [address] Assigned MTM Pharmacist 03/22/22 01/02/23 documented as of this encounter
--- OUTSIDE RECORDS SUMMARY | 2025-09-16 12:08 | XMS_ITS | Encounter Summary ---
Author Organization [place] Address [address] [facility] [place] [address] Care Team Providers Care Outreach Educator Name Role Phone Andrew Lu MD Primary Care Provider [phone] Niko Resendiz MD Primary Care Provider Carlie Mac MD Primary Care Provide r Angella Mendieta MD Primary Care Provider Julito Banuelos MD Primary Care Provider [phone] Julito Banuelos MD Unavailable Julito Banuelos MD Unavailable Aleshia Henriquez RD Unavailable Unavailable Mary Kay Jones [facility] Unavailable Unavailable Susannah Blankenship [facility] Unavailable [phone] Carolyn Huynh [facility] Unavailable [phone] Vika Kevin APRN LOAN SERVICES PROFESSIONAL Unavailable + Marilyn Willard MD Unavailable [phone] Carie Varela DO Unavailable [phone] Maylin May NP Unavailable [phone] Marisa Rodrigues RN Unavailable Unavailable Vilma Long MD Unavailable + [phone] Yasmeen Pendleton [facility] Unavailable [phone] Cole George Unavailable Fletcher Russell Unavailable Unavailable Bautista Casey MD Unavailable AnnyJasmyn tracey [facility] Unavailable [phone] Vika Kevin APRN [facility] Primary Care Prov ider Vika Kevin APRN [facility] Primary Care Prov ider Yasmeen Pendleton [facility] Unavailable [phone] [facility] Primary Care Prov ider Encounter Details Date Type Department Care Team (Late st Contact Info) Description 06/08/2007 MyC Medical Advice [address] [phone] Andrew Lu MD XXX RETIRED XXX [address] [place] [phone] Social History Tobacco Use Types Packs/Day Years Used Date Smoking Tobacco: Former Cigarettes 0.3 15 0 10/26/1961 - 10/26/1976 Alcohol Use Standard Drinks/Week Comments Yes 0 (1 standard drink = 0.6 oz pur e alcohol) 1 wine 2x qweek Comments No Sex and Gender Information Value Date Recorded Sex Assigned at Not on file Legal Sex Female 3:22 AM CHEMICAL LIBRARIAN Gender Identity Not on file Sexual Orientation Not on file documented as of this encounter Plan of Treatment Not on file documented as of this encounter Visit Diagnoses Not on filedocumented in this encounter Additional Health Concerns Infection Onset Date Last Indicated Resolved Time Rule Out COVID-19 07/25/2020 07/25/2020 07/26/2020 3:02 PM CDT Rule Out COVID-19 12/04/2020 12/04/2020 12/05/2020 6:04 PM CHEMICAL LIBRARIAN documented as of this encounter Care Teams Outreach Educator Relationship Specialty Start Date End Date Andrew Lu MD XXX RETIRED XXX [address] [place] [phone] PCP - General 12/10/01 01/10/14 Niko Resendiz MD [address] [place] [address] PCP - General Internal Medicine 01/11/14 01/29/14 Carlie Mac MD [address] [place], [place] [address] PCP - General Pediatrics 01/30/14 07/17/15 Angella Mendieta MD [address] [place] [address] 975382 PCP - General Family Practice 07/18/15 09/11/15 Julito Banuelos MD [address] [place] [address] 510572 PCP - General Family Practice 09/12/15 09/23/21 Julito Banuelos MD [address] [place] [address] PCP - Assigned PCP 02/17/16 12/28/18 Vika Kevin APRN LOAN SERVICES PROFESSIONAL [address] [place] [address] 289622 PCP - General Nurse Practitioner - Family 09/24/21 03/05/22 Vika Kevin APRN LOAN SERVICES PROFESSIONAL [address] [place] [address] 464682 PCP - General Nurse Practitioner - Family 03/18/22 06/18/22 Vika Kevin APRN LOAN SERVICES PROFESSIONAL [address] [place] [address] [phone] PCP - General Nurse Practitioner - Family 07/24/22 Julito Banuelos MD [address] [place] [address] [phone] Assigned PCP 02/17/16 07/21/[address] [place] [address] Vp Talent Management Dietitian, Registered 04/14/19 Mary Kay Jones, [facility] Pharmacist 08/01/19 04/20/20 [facility] [address] [place] [address] 812 [place], [place] [address] Pharmacist Pharmacist 08/08/19 04/15/21 [facility] [address] [place] [address] Pharmacist Pharmacist 06/25/20 04/15/21 Vika Kevin APRN LOAN SERVICES PROFESSIONAL [address] [place] [address] [phone] Assigned PCP 07/22/20 11/16/24 Marilyn Willard MD [address] [place] [address] 394 [place], [place] [address] Assigned Surgical Provider 08/17/20 08/16/24 Carie Varela DO [address] [place] [address] Assigned Heart and Vascular Provider 08/17/20 01/19/21 Maylin May NP [address] [place] [address] Assigned Pediatric Specialist Provider 12/16/20 06/13/22 Marisa Rodrigues, RN Clinic Quality Improvement Coordinator 01/15/21 02/26/21 Vilma Long MD [address] [place] [address] Assigned Heart and Vascular Provider 01/20/21 07/20/21 Yasmeen Pendleton [facility] [address] [place] [address] Pharmacist Pharmacist 06/04/21 01/15/22 Cole George LISW Lead Quality Improvement Coordinator 06/13/21 10/07/21 Fletcher Up Community Health Worker 06/13/21 09/12/21 Bautista Casey MD [address] [place] [address] Assigned Heart and Vascular Provider 07/21/21 01/16/23 Jasmyn Oliver CHW Community Health Worker 09/13/21 10/07/21 Yasmeen Pendleton [facility] [address] [place] [address] Assigned MTM Pharmacist 03/22/22 01/02/23 documented as of this encounter
--- OUTSIDE RECORDS SUMMARY | 2025-09-16 12:08 | XMS_ITS | Encounter Summary ---
Author Organization [place] Address [address] [place] [place] [address] Care Team Providers Care Barrel Rifler Hook Name Role Phone Andrew Lu MD Primary Care Provider [phone] Niko Resendiz MD Primary Care Provider Carlie Mac MD Primary Care Provide r Angella Mendieta MD Primary Care Provider Julito Banuelos MD Primary Care Provider [phone] Julito Banuelos MD Unavailable Julito Banuelos MD Unavailable Aleshia Henriquez RD Unavailable Unavailable Mary Kay Jones [facility] Unavailable Unavailable Susannah Blankenship [facility] Unavailable +[phone] Carolyn Huynh [facility] Unavailable [phone] Vika Kevin APRN SEROLOGY TEACHER Unavailable + Marilyn Willard MD Unavailable [phone] Carie Varela DO Unavailable [phone] Maylin May NP Unavailable [phone] Marisa Rodrigues RN Unavailable Unavailable Vilma Long MD Unavailable + [phone] Yasmeen Pendleton [facility] Unavailable +[phone] Cole George Unavailable Fletcher Russell Unavailable Unavailable Bautista Casey MD Unavailable [phone] DemetriusJasmyn wright [facility] Unavailable [facility] Primary Care Prov ider Vika Kevin APRN [facility] Primary Care Prov ider Yasmeen Pendleton [facility] Unavailable Vika [facility] Primary Care Prov ider Encounter Details Date Type Department Care Team (Late st Contact Info) Description 12/28/2013 MyC Medical Advice [facility] - Primary Care Skin [address] [place] [phone] Jenn Yip MD [address] [facility] [place] [address] Social History Tobacco Use Types Packs/Day Years Used Date Smoking Tobacco: Former Cigarettes 0.3 15 0 10/26/1961 - 10/26/1976 Smokeless Tobacco: Never Alcohol Use Standard Drinks/Week Comments Yes 0 (1 standard drink = 0.6 oz pur e alcohol) 1-2 glasses of wine weekly Comments No Sex and Gender Information Value Date Recorded Sex Assigned at Not on file Legal Sex Female 3:22 AM CERAMICS ENGINEER Gender Identity Not on file Sexual [...] Out COVID-19 12/04/2020 12/04/2020 12/05/2020 6:04 PM CERAMICS ENGINEER documented as of this encounter Care Teams Barrel Rifler Hook Relationship Specialty Start Date End Date Andrew Lu MD XXX RETIRED XXX [address] [place] [address] PCP - General 12/10/01 01/10/14 Niko Resendiz MD [address] [place] [address] PCP - General Internal Medicine 01/11/14 01/29/14 Carlie Mac MD [address] [place] [address] PCP - General Pediatrics 01/30/14 07/17/15 Angella Mendieta MD [address] [place] [address] PCP - General Family Practice 07/18/15 09/11/15 Julito Banuelos MD [address] [place] [address] PCP - General Family Practice 09/12/15 09/23/21 Julito Banuelos MD [address] [place] [address]852 PCP - Assigned PCP 02/17/16 12/28/18 Vika Kevin APRN SEROLOGY TEACHER [address] [place] [address] PCP - General Nurse Practitioner - Family 09/24/21 03/05/22 Vika Kevin APRN SEROLOGY TEACHER [address] [place] [address] PCP - General Nurse Practitioner - Family 03/18/22 06/18/22 Vika Kevin APRN SEROLOGY TEACHER [address] [place] [address] 008522 PCP - General Nurse Practitioner - Family 07/24/22 Julito Banuelos MD [address] [place] [address] 570222 Assigned PCP 02/17/16 07/21/[address] [place] [address] 99[address] Engineering Illustrator Dietitian, Registered 04/14/19 Mary Kay Jones, [facility] Pharmacist 08/01/19 04/20/20 Susannah Blankenship, [facility] [address] [facility] [address] [place], [place] [address] Pharmacist Pharmacist 08/08/19 04/15/21 Carolyn Huynh, [facility] [address] [place], [place] [address] Pharmacist Pharmacist 06/25/20 04/15/21 Vika Kevin, JAIME SEROLOGY TEACHER [address] [place] [address] 626892 Assigned PCP 07/22/20 11/16/24 Marilyn Willard MD 420 [facility] [address] [place], [place] 676725 Assigned Surgical Provider 08/17/20 08/16/24 Carei Varela DO [address] [place] [address] Assigned Heart and Vascular Provider 08/17/20 01/19/21 Maylin May NP [address] [facility] [place] [address] Assigned Pediatric Specialist Provider 12/16/20 06/13/22 Marisa Rodrigues, RN Clinic Contracting Manager 01/15/21 02/26/21 Vilma Long MD [address] [place] [address] Assigned Heart and Vascular Provider 01/20/21 07/20/21 Yasmeen Pendleton [facility] [address] [place] [address] Pharmacist Pharmacist 06/04/21 01/15/22 Cole George LISW Lead Contracting Manager 06/13/21 10/07/21 Fletcher Up Community Health Worker 06/13/21 09/12/21 Bautista Casey MD [address] [place] [address] Assigned Heart and Vascular Provider 07/21/21 01/16/23 Jasmyn Oliver CHW Community Health Worker 09/13/21 10/07/21 [facility] [address] [place] [address] Assigned MTM Pharmacist 03/22/22 01/02/23 documented as of this encounter
--- OUTSIDE RECORDS SUMMARY | 2025-09-16 12:08 | XMS_ITS | Encounter Summary ---
Author Organization [place] Address [address] [facility] [place] [address] Care Team Providers Care System Dispatcher Name Role Phone Julito Banuelos MD Primary Care Provider [phone] Julito Banuelos MD Unavailable Aleshia Henriquez RD Unavailable Unavailable Susannah Blankenship [facility] Unavailable [phone] Carolyn Huynh [facility] Unavailable [phone] Vika Kevin APRN REGENERATOR OPERATOR Unavailable + Marilyn Willard MD Unavailable [phone] Carie Varela DO Unavailable [phone] Maylin May NP Unavailable [phone] Marisa Hernandez RN Unavailable Unavailable Vilma Long MD Unavailable + [phone] Yasmeen Pendleton [facility] Unavailable +[phone] Cole George Unavailable Fletcher Russell Unavailable Unavailable Bautista Casey MD Unavailable [phone] Jasmyn Oliver Unavailable [phone] Vika Kevin APRN REGENERATOR OPERATOR Primary Care Prov ider Vika Kevin APRN [facility] Primary Care Prov ider Yasmeen Pendleton [facility] Unavailable + [phone] Vika Kevin APRN [facility] Primary Care [facility] ider Reason for Visit * Reason Comments Medication Refill Encounter Details Date Type Department Care Team (Late st Contact Info) Description 06/26/[address] [address] [place] [address] [place] [address] Medication Refill Social History Tobacco Use [...] file Legal Sex Female 3:22 AM STEM FRAZER Gender Identity Not on file Sexual Orientation [...] per RN protocol Leslye Steiner RN, BSN [place] Triage * Telephone Encounter - Maylin Diaz - 06/26/2020 9:18 AM CDT Patient's calling already to see if this can be done today. Advised of the refill policy. Francisca Diaz, Streets And Buildings Decorator documented in this encounter Plan of Treatment Not on file documented as of this encounter Visit Diagnoses Diagnosis Environmental allergies Allergic rhinitis, cause unspecified documented in this encounter Additional Health Concerns Infection Onset Date Last Indicated Resolved Time Rule Out COVID-19 07/25/2020 07/25/2020 07/26/2020 3:02 PM CDT Rule Out COVID-19 12/04/2020 12/04/2020 12/05/2020 6:04 PM STEM FRAZER Assessment Noted Time PHQ-9 Depression Total Score: 12 020 3:35 PM CDT documented as of this encounter Care Teams System Dispatcher Relationship Specialty Start Date End Date Julito Banuelos MD [address] [place] [address] PCP - General Family Practice 09/12/15 09/23/21 Vika Kevin APRN REGENERATOR OPERATOR [address] [place] [address] PCP - General Nurse Practitioner - Family 09/24/21 03/05/22 Vika Kevin APRN REGENERATOR OPERATOR [address] [place] [address] PCP - General Nurse Practitioner - Family 03/18/22 06/18/22 Vika Kevin APRN REGENERATOR OPERATOR [address] [place] [address] PCP - General Nurse Practitioner - Family 07/24/22 Julito Banuelos MD [address] [place] [address] Assigned PCP 02/17/16 07/21/[address] [place] [address] Game Tester Dietitian, Registered 04/14/19 Susannah Blankenship, [facility] 420 [facility] 812 [place] [address] Pharmacist Pharmacist 08/08/19 04/15/21 Carolyn Huynh, [facility] [address] [place] [address] Pharmacist Pharmacist 06/25/20 04/15/21 Vika Kevin APRN REGENERATOR OPERATOR [address] [place] [address] 740882 Assigned PCP 07/22/20 11/16/24 Marilyn Willard MD 420 [facility] 394 [place], [place] [address] Assigned Surgical Provider 08/17/20 08/16/24 Carie Varela DO [address] [place] [address] Assigned Heart and Vascular Provider 08/17/20 01/19/21 Maylin May NP [address] [place] [address] Assigned Pediatric Specialist Provider 12/16/20 06/13/22 Marisa Rodrigues, RN Clinic Pool Servicer 01/15/21 02/26/21 Vilma Long MD [address] [place] 082545 Assigned Heart and Vascular Provider 01/20/21 07/20/21 Yasmeen Pendleton [facility] 9 [place], [place] [address] Pharmacist Pharmacist 06/04/21 01/15/22 Cole George LISW Lead Pool Servicer 06/13/21 10/07/21 Fletcher Up Community Health Worker 06/13/21 09/12/21 Bautista Casey MD [address] [place], [place] [address] Assigned Heart and Vascular Provider 07/21/21 01/16/23 Jasmyn Oliver CHW Community Health Worker 09/13/21 10/07/21 Yasmeen Pendleton [facility] 9 [place] [address] Assigned MTM Pharmacist 03/22/22 01/02/23 documented as of this encounter
--- OUTSIDE RECORDS SUMMARY | 2025-09-16 12:08 | XMS_ITS | Encounter Summary ---
Author Organization [place] Address [address] [facility] [place] [address] Care Team Providers Care Supervisor Carding Name Role Phone Andrew Lu MD Primary Care Provider [phone] Niko Resendiz MD Primary Care Provider Carlie Mac MD Primary Care Provide r Angella Mendieta MD Primary Care Provider Julito Banuelos MD Primary Care Provider [phone] Julito Banuelos MD Unavailable Julito Banuelos MD Unavailable Aleshia Henriquez RD Unavailable Unavailable Mary Kay Jones [facility] Unavailable Unavailable Susannah Blankenship [facility] Unavailable [phone] Carolyn Huynh [facility] Unavailable [phone] Vika Kevin APRN STITCH BONDING MACHINE TENDER Unavailable + Marilyn Willard MD Unavailable [phone] Carie Varela DO Unavailable [phone] Maylin May NP Unavailable [phone] Marisa Rodrigues RN Unavailable Unavailable Vilma Long MD Unavailable + [phone] Yasmeen Pendleton [facility] Unavailable + [phone] Cole George Unavailable Fletcher Russell Unavailable Unavailable Bautista Casey MD Unavailable DemetriusJasmyn wright [facility] Unavailable [phone] Vika Kevin APRN [facility] Primary Care Prov ider Vika Kevin APRN [facility] Primary Care Prov ider Yasmeen Pendleton [facility] Unavailable + [phone] Vika Kevin APRN [facility] Primary Care Prov ider Encounter Details Date Type Department Care Team (Late st Contact Info) Description 01/05/2014 MyC Medical Advice [address] [address] Mary Cha LPN Social History [...] file Legal Sex Female 3:22 AM CHILD NUTRITION DIRECTOR Gender Identity Not on file Sexual [...] Out COVID-19 12/04/2020 12/04/2020 12/05/2020 6:04 PM CHILD NUTRITION DIRECTOR documented as of this encounter Care Teams Supervisor Carding Relationship Specialty Start Date End Date Andrew Lu MD XXX RETIRED XXX [address] [place] [address] PCP - General 12/10/01 01/10/14 Niko Resendiz MD [address] [place] [address] PCP - General Internal Medicine 01/11/14 01/29/14 Carlie Mac MD [address] [place] [address] PCP - General Pediatrics 01/30/14 07/17/15 Angella Mendieta MD [address] [place] [address] PCP - General Family Practice 07/18/15 09/11/15 Julito Banuelos MD [address] [place] [address] 67175 PCP - General Family Practice 09/12/15 09/23/21 Julito Banuelos MD [address] [place] [address] 78708 PCP - Assigned PCP 02/17/16 12/28/18 Vika Kevin APRN STITCH BONDING MACHINE TENDER [address] [place] [address] PCP - General Nurse Practitioner - Family 09/24/21 03/05/22 Vika Kevin APRN STITCH BONDING MACHINE TENDER [address] [place] [address] PCP - General Nurse Practitioner - Family 03/18/22 06/18/22 Vika Kevin APRN STITCH BONDING MACHINE TENDER [address] [place] [address] 172042 PCP - General Nurse Practitioner - Family 07/24/22 Julito Banuelos MD [address] [place] [address] 222192 Assigned PCP 02/17/16 07/21/[address] [place] [address] Water Purification Chemist Dietitian, Registered 04/14/19 Mary Kay Jones, [facility] Pharmacist 08/01/19 04/20/20 [facility] [address] [place] [address] 812 [place], [place] [address] Pharmacist Pharmacist 08/08/19 04/15/21 [facility] [address] [place], [place] [phone] Pharmacist Pharmacist 06/25/20 04/15/21 Vika Kevin APRN STITCH BONDING MACHINE TENDER [address] [place] [address] 920062 Assigned PCP 07/22/20 11/16/24 Marilyn Willard MD [address] [place] [address] 394 [place] [address] Assigned Surgical Provider 08/17/20 08/16/24 Carie Varela DO [address] [place], [place] [address] Assigned Heart and Vascular Provider 08/17/20 01/19/21 Maylin May NP [address] [place] [address] Assigned Pediatric Specialist Provider 12/16/20 06/13/22 Marisa Rodrigues, RN Clinic Wrestling Coach 01/15/21 02/26/21 Vilma Long MD [address] [place] [address] Assigned Heart and Vascular Provider 01/20/21 07/20/21 Yasmeen Pendleton [facility] [address] [place] [address] Pharmacist Pharmacist 06/04/21 01/15/22 Cole George LISW Lead Wrestling Coach 06/13/21 10/07/21 Fletcher Up Community Health Worker 06/13/21 09/12/21 Bautista Casey MD [address] [place] [address] Assigned Heart and Vascular Provider 07/21/21 01/16/23 Jasmyn Oliver CHW Community Health Worker 09/13/21 10/07/21 Yasmeen Pendleton [facility] [address] [place] [address] [phone] Assigned MTM Pharmacist 03/22/22 01/02/23 documented as of this encounter
--- OUTSIDE RECORDS SUMMARY | 2025-09-16 12:08 | XMS_ITS | Encounter Summary ---
Author Organization [place] Address [address] [place] [address] Care Team Providers Care Accountant Bookkeeper Name Role Phone Andrew Lu MD Primary Care Provider [phone] Niko Resendiz MD Primary Care Provider Carlie Mac MD Primary Care Provide r Angella Mendieta MD Primary Care Provider Julito Banuelos MD Primary Care Provider [phone] Julito Banuelos MD Unavailable Julito Banuelos MD Unavailable Aleshia [address]quez RD Unavailable Unavailable Mary Kay Jones [facility] Unavailable Unavailable Susannah Blankenship [facility] Unavailable [phone] Carolyn Huynh [facility] Unavailable [phone] Vika Kevin APRN HOME CARE COORDINATOR Unavailable + Marilyn Willard MD Unavailable [phone] Carie Varela DO Unavailable [phone] Maylin May NP Unavailable [phone] Marisa Rodrigues RN Unavailable Unavailable Vilma Long MD Unavailable + [phone] Yasmeen Pendleton [facility] Unavailable [phone] Cole George Unavailable Fletcher Russell Unavailable Unavailable Bautista Casey MD Unavailable AnnyJasmyn tracey [facility] Unavailable [phone] Vika Kevin APRN [facility] Primary Care Prov ider Vika Kevin APRN [facility] Primary Care Prov ider Yasmeen Pendleton [facility] Unavailable [phone] Vika [facility] Primary Care Prov ider Encounter Details Date Type Department Care Team (Late st Contact Info) Description 01/03/2014 MyC Medical Advice [address] [address] Niko Resendiz MD [address] [place] [address] [id number] Social History Tobacco Use Types Packs/Day Years Used Date Smoking Tobacco: Former Cigarettes 0.3 15 0 10/26/1961 - 10/26/1976 Smokeless Tobacco: Never Alcohol Use Standard Drinks/Week Comments Yes 0 (1 standard drink = 0.6 oz pur e alcohol) 1-2 glasses of wine weekly Comments No Sex and Gender Information Value Date Recorded Sex Assigned at Not on file Legal Sex Female 3:22 AM STOVE TENDER Gender Identity Not on file Sexual [...] Out COVID-19 12/04/2020 12/04/2020 12/05/2020 6:04 PM STOVE TENDER documented as of this encounter Care Teams Accountant Bookkeeper Relationship Specialty Start Date End Date Andrew Lu MD XXX RETIRED XXX [address] [place] [phone] PCP - General 12/10/01 01/10/14 Niko Resendiz MD [address] [place] [address] PCP - General Internal Medicine 01/11/14 01/29/14 Carlie Mac MD [address] [place] [address] PCP - General Pediatrics 01/30/14 07/17/15 Angella Mendieta MD [address] [place] [address] PCP - General Family Practice 07/18/15 09/11/15 Julito Banuelos MD [address] [place] [address] PCP - General Family Practice 09/12/15 09/23/21 Julito Banuelos MD [address] [place] [address]65 PCP - Assigned PCP 02/17/16 12/28/18 Vika Kevin APRN HOME CARE COORDINATOR [address] [place] [address] PCP - General Nurse Practitioner - Family 09/24/21 03/05/22 Vika Kevin APRN HOME CARE COORDINATOR [address] [place] [address]33 PCP - General Nurse Practitioner - Family 03/18/22 06/18/22 Vika Kevin APRN HOME CARE COORDINATOR [address] [place] [address] 596142 PCP - General Nurse Practitioner - Family 07/24/22 Julito Banuelos MD [address] [place] [address] [phone] Assigned PCP 02/17/16 07/21/[address] [place] [address] Associate Producer Dietitian, Registered 04/14/19 [facility] Pharmacist 08/01/19 04/20/20 Susannah Blankenship, [facility] [address] [place] [address] 812 [place], [place] 3[address] Pharmacist Pharmacist 08/08/19 04/15/21 Carolyn Huynh, [facility] [address] [place] [address] Pharmacist Pharmacist 06/25/20 04/15/21 Vika Kevin APRN HOME CARE COORDINATOR [address] [place] [address] 635162 Assigned PCP 07/22/20 11/16/24 Marilyn Willard MD [address] [place] [address] 394 [place], [place] 646245 Assigned Surgical Provider 08/17/20 08/16/24 Carie Varela DO [address] [place] [address] Assigned Heart and Vascular Provider 08/17/20 01/19/21 Maylin May NP [address] [place] [address] Assigned Pediatric Specialist Provider 12/16/20 06/13/22 Marisa Rodrigues, RN Clinic Shake Loader 01/15/21 02/26/21 Vilma Long MD [address] [place] [address] Assigned Heart and Vascular Provider 01/20/21 07/20/21 Yasmeen Pendleton [facility] [address] [place] [address] Pharmacist Pharmacist 06/04/21 01/15/22 Cole George LISW Lead Shake Loader 06/13/21 10/07/21 Fletcher Up Community Health Worker 06/13/21 09/12/21 Bautista Casey MD [address] [place] [address] Assigned Heart and Vascular Provider 07/21/21 01/16/23 Jasmyn Oliver CHW Community Health Worker 09/13/21 10/07/21 Yasmeen Pendleton [facility] [address] [place] [address] Assigned MTM Pharmacist 03/22/22 01/02/23 documented as of this encounter
--- OUTSIDE RECORDS SUMMARY | 2025-09-16 12:08 | XMS_ITS | Encounter Summary ---
Author Organization [place] Address [address] [facility] [place] [address] Care Team Providers Care Prize Coordinator Name Role Phone Andrew Lu MD Primary Care Provider [phone] Niko Resendiz MD Primary Care Provider Carlie Mac MD Primary Care Provide r Angella Mendieta MD Primary Care Provider Julito Banuelos MD Primary Care Provider [phone] Julito Banuelos MD Unavailable Julito Banuelos MD Unavailable Aleshia Henriquez RD Unavailable Unavailable Mary Kay Jones [facility] Unavailable Unavailable Susannah Blankenship [facility] Unavailable [phone] Carolyn Huynh [facility] Unavailable +[phone] Vika Kevin APRN DINING ROOM SERVER Unavailable + Marilyn Willard MD Unavailable [phone] Carie Varela DO Unavailable +[phone] Maylin May NP Unavailable [phone] Marisa Rodrigues RN Unavailable Unavailable Vilma Long MD Unavailable + [phone] Yasmeen Pendleton [facility] Unavailable +[phone] Cole George Unavailable Fletcher Russell Unavailable Unavailable Bautista Casey MD Unavailable DemetriusJasmyn wright [facility] Unavailable [phone] Vika Kevin APRN [facility] Primary Care Prov ider Vika Kevin APRN [facility] Primary Care Prov ider Yasmeen Pendleton [facility] Unavailable Vika [facility] Primary Care Prov ider Encounter Details Date Type Department Care Team (Latest Contact Info) Description 07/08/2013 Medical Correspondence [address] [phone] Andrew Lu MD XXX RETIRED XXX [address] [phone] [facility] 07/08/13 Social History [...] file Legal Sex Female 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 DISPENSER Gender Identity Not on file Sexual Orientation [...] COVID-19 12/04/2020 12/04/2020 12/05/2020 6:04 PM GAS DISPENSER documented as of this encounter Care Teams Prize Coordinator Relationship Specialty Start Date End Date Andrew Lu MD XXX RETIRED XXX [address] [place] [phone] PCP - General 12/10/01 01/10/14 Niko Resendiz MD [address] [place] [address] 86691 PCP - General Internal Medicine 01/11/14 01/29/14 Carlie Mac MD [address] [place] [address] PCP - General Pediatrics 01/30/14 07/17/15 Angella Mendieta MD [address] [place] [address] 26579 PCP - General Family Practice 07/18/15 09/11/15 Julito Banuelos MD [address] [place] [address] 78777 PCP - General Family Practice 09/12/15 09/23/21 Julito Banuelos MD [address] [place] [address] 48254 PCP - Assigned PCP 02/17/16 12/28/18 Vika Kevin APRN CNP [address] [place] [address] 44505 PCP - General Nurse Practitioner - Family 09/24/21 03/05/22 Vika Kevin APRN DINING ROOM SERVER [address] [place] [address] 16565 PCP - General Nurse Practitioner - Family 03/18/22 06/18/22 Vika Kevin APRN DINING ROOM SERVER [address] [place] [address] 33017 PCP - General Nurse Practitioner - Family 07/24/22 Julito Banuelos MD [address] [place] [address] [id number] Assigned PCP 02/17/16 07/21/[address] [place] [address]36 Women Nurse Dietitian, Registered 04/14/19 Mary Kay Jones [facility] Pharmacist 08/01/19 04/20/20 Susannah Blankenship, [facility] [address] [place] [address] [address] [place], [place] 601525 Pharmacist Pharmacist 08/08/19 04/15/21 Carolyn uHynh, [facility] [address] [place] [address] Pharmacist Pharmacist 06/25/20 04/15/21 Vika Kevin, JAIME DINING ROOM SERVER [address] [place] [address] [phone] Assigned PCP 07/22/20 11/16/24 Marilyn Willard MD [address] [facility] [address] [place], [place] 311815 Assigned Surgical Provider 08/17/20 08/16/24 Carie Varela DO [address] [place] [address] Assigned Heart and Vascular Provider 08/17/20 01/19/21 Maylin May NP [address] [place] [address] Assigned Pediatric Specialist Provider 12/16/20 06/13/22 Marisa Rodrigues, RN Clinic Rent And Miscellaneous Remittance Clerk 01/15/21 02/26/21 Vilma Long MD [address] [place] [address] Assigned Heart and Vascular Provider 01/20/21 07/20/21 Yasmeen Pendleton [facility] [address] [place] [address] [phone] Pharmacist Pharmacist 06/04/21 01/15/22 Cole George LISW Lead Rent And Miscellaneous Remittance Clerk 06/13/21 10/07/21 Fletcher Up Community Health Worker 06/13/21 09/12/21 Bautista Casey MD [address] [place] [address] Assigned Heart and Vascular Provider 07/21/21 01/16/23 Jasmyn Oliver CHW Community Health Worker 09/13/21 10/07/21 Yasmeen Pendleton [facility] [address] [place] [address] Assigned MTM Pharmacist 03/22/22 01/02/23 documented as of this encounter
--- OUTSIDE RECORDS SUMMARY | 2025-09-16 12:08 | XMS_ITS | Encounter Summary ---
Author Organization [place] Address [address] [facility] [place] [address] Care Team Providers Care Blender/Braze Applicator Name Role Phone Cortez Lu MD Primary Care Provider [phone] Niko Resendiz MD Primary Care Provider Carlie Mac MD Primary Care Provide r Angella Mendieta MD Primary Care Provider Julito Banuelos MD Primary Care Provider [phone] Julito Banuelos MD Unavailable Julito Banuelos MD Unavailable Aleshia Henriquez RD Unavailable Unavailable Mary Kay Jones [facility] Unavailable Unavailable Susannah Blankenship [facility] Unavailable [phone] Carolyn Huynh [facility] Unavailable [phone] Vika Kevin APRN FIELD SERVICE REP Unavailable + Marilyn Willard MD Unavailable [phone] Carie Varela DO Unavailable +[phone] Maylin May NP Unavailable [phone] Marisa Rodrigues RN Unavailable Unavailable Vilma Long MD Unavailable + [phone] Yasmeen Pendleton [facility] Unavailable + [phone] Cole George Unavailable Fletcher Russell Unavailable Unavailable Bautista Casey MD Unavailable [phone] TatyanaJasmyn anand [facility] Unavailable [phone] Vika Kevin APRN [facility] Primary Care Prov ider Vika Kevin APRN [facility] Primary Care Prov ider Yasmeen Pendleton [facility] Unavailable + [phone] [facility] Primary Care Prov ider Encounter Details Date Type Department Care Team (Late st Contact Info) Description 12/01/2013 Office Visit-[facility] [address] [facility] [address] [place] [phone] Cristy Hanna, JAIME [facility] XXX RESIGNED XXX [address] [facility] [address] [place] [id number] Social History Tobacco Use Types Packs/Day Years Used Date Smoking Tobacco: Former Cigarettes 0.3 15 0 10/26/1961 - 10/26/1976 Smokeless Tobacco: Never Alcohol Use Standard Drinks/Week Comments Yes 0 (1 standard drink = 0.6 oz pur e alcohol) 1-2 glasses of wine weekly Comments No Sex and Gender Information Value Date Recorded Sex Assigned at Not on file Legal Sex Female 3:22 AM DETECTIVE NARCOTICS AND VICE Gender Identity Not on file Sexual Orientation [...] Referring Physician: CORTEZ LU Referring Clinic: [facility] CURRENT DIAGNOSES 1. Diabetes Iunwaunz-Kjm-Rfjcwtq Dependent, 250.00 2. - Hyperlipidemia mixed, 272.2 [...] daily 10. Nasacort AQ 55 mcg Aerosol, [place], Take as Directed 11. Plavix 75 mg [...] the pleasure of seeing Marialuisa Cosby in [facility]. She is a 73-year-old white female with a history of coronary artery disease, hypertension, diabetes, dyslipidemia, and asthma who is here today to reevaluate her palpitations. Her cardiovascular history includes hypertension, diabetes, and dyslipidemia. In December,, whilevisiting in [place] she had a lby-EA-jojmcnxba myocardial infarction and underwent an angiogram with PCI to the proximal and mid circumflex. LV function has been normal by echocardiogram. Apparently the director of instruction in [place] recommended lifelong Plavix. She was seen by [...] Leg syndrome Past Cardiac Illnesses: CAD, s/p [place] Surgeries/Procedures - General: hysterectomy, tonsillectomy Cardiac/Vasc Procedures-Invasive: left heart cath 12/2012 ([place]) Cardiology Procedures-NonInvasive: echocardiogram Jun 2007, myocardial perfusion (Nuc) Jun 2007, echo 12/2012 ([place]), stress echo February 2013 Cardiac Cath Results: 12/2012 [place] [facility] NELIA to the mid and prox [...] - lives with ; Place of - [place]; REVIEW OF SYSTEMS GENERAL fatigue, feels spacey [...] Weight- 215.00 lbs. Height- 67 BMI Measurement: Partnered Error: [[employer]][[employer] SQL Slicing Machine Operator Fashion Director Party Plan Sales][SQL Slicing Machine Operator]Divide by zero error encountered. - [id number] CONSTITUTIONAL well developed, well nourished, in no [...] 2. Coronary artery disease. She had a plk-JB-eavcifhbp myocardial infarction in December and remains on [...] Out COVID-19 12/04/2020 12/04/2020 12/05/2020 6:04 PM DETECTIVE NARCOTICS AND VICE documented as of this encounter Care Teams Blender/Braze Applicator Relationship Specialty Start Date End Date Cortez Lu MD XXX RETIRED XXX [address] [place] [phone] PCP - General 12/10/01 01/10/14 Niko Resendiz MD [address] [place] [address] 22556 PCP - General Internal Medicine 01/11/14 01/29/14 Carlie Mac MD [address] [place] [address] PCP - General Pediatrics 01/30/14 07/17/15 Angella Mendieta MD [address] [place] [address]79 PCP - General Family Practice 07/18/15 09/11/15 Julito Banuelos MD [address] [place] [address] 19255 PCP - General Family Practice 09/12/15 09/23/21 Julito Banuelos MD [address] [place] [address] 65366 PCP - Assigned PCP 02/17/16 12/28/18 Vika Kevin APRN FIELD SERVICE REP [address] [place] [address] 89079 PCP - General Nurse Practitioner - Family 09/24/21 03/05/22 Vika Kevin APRN FIELD SERVICE REP [address] [place] [address] 15439 PCP - General Nurse Practitioner - Family 03/18/22 06/18/22 Vika Kevin APRN FIELD SERVICE REP [address] [place] [address]47[address] PCP - General Nurse Practitioner - Family 07/24/22 Julito Banuelos MD [address] [place] [address] Assigned PCP 02/17/16 07/21/[address] [place] [address] 83035 Ethanol Operations Manager Dietitian, Registered 04/14/19 Mary Kay Jones [facility] Pharmacist 08/01/19 04/20/20 Susannah Blankenship [facility] [address] [place] [address] 812 [place] [address] Pharmacist Pharmacist 08/08/19 04/15/21 Carolyn Huynh, [facility] [address] [place] [address] Pharmacist Pharmacist 06/25/20 04/15/21 Vika Kevin, TRANSPORTATION MANAGER FIELD SERVICE REP [address] [place], [place] 052962 Assigned PCP 07/22/20 11/16/24 Marilyn Willard MD [address] [facility] [address] [place] [address] Assigned Surgical Provider 08/17/20 08/16/24 Carie Varela DO [address] [place] [address] Assigned Heart and Vascular Provider 08/17/20 01/19/21 Maylin May NP [address] [place], [place] [id number] Assigned Pediatric Specialist Provider 12/16/20 06/13/22 Marisa Rodrigues, RN Clinic Mold Closer 01/15/21 02/26/21 Vilma Long MD [address] [place] [address] Assigned Heart and Vascular Provider 01/20/21 07/20/21 Yasmeen Pendleton [facility] [address] [place] [address] Pharmacist Pharmacist 06/04/21 01/15/22 Cole George LISW Lead Mold Closer 06/13/21 10/07/21 Fletcher Up Community Health Worker 06/13/21 09/12/21 Bautista Casey MD [address] [place] [address] Assigned Heart and Vascular Provider 07/21/21 01/16/23 Jasmyn Oliver CHW Community Health Worker 09/13/21 10/07/21 Yasmeen Pendleton, [facility] [address] [place], [place] [address] Assigned MTM Pharmacist 03/22/22 01/02/23 documented as of this encounter
--- OUTSIDE RECORDS SUMMARY | 2025-09-16 12:08 | XMS_ITS | Encounter Summary ---
Author Organization [place] Address [address] [facility] [place] [address] Care Team Providers Care Coding Specialist Name Role Phone Julito Banuelos MD Primary Care Provider [phone] Unavailable Unavailable Susannah Blankenship [facility] Unavailable [phone] Carolyn Huynh [facility] Unavailable [phone] Vika Kevin APRN [facility] Unavailable + Marilyn Willard MD Unavailable [phone] Carie Varela DO Unavailable [phone] Maylin May NP Unavailable [phone] Marisa Hernandez RN Unavailable Unavailable Vilma Long MD Unavailable + [phone] Yasmeen Pendleton [facility] Unavailable +[phone] Cole George Unavailable Fletcher Russell Unavailable Unavailable Bauitsta Casey MD Unavailable [phone] Jasmyn Oliver Unavailable [phone] Vika Kevin APRN [facility] Primary Care Prov ider Vika Kevin APRN [facility] Primary Care Prov ider Yasmeen Pendleton [facility] Unavailable [phone] Vkia Kevin APRN IMPERSONATOR CHARACTER Primary Care Prov ider Encounter Details Date Type Department Care Team (Late st Contact Info) Description 01/07/2021 MyC Medical Advice [facility] [address] [facility] [address] [place] [address] [facility] [address] [place] [address] Social History Tobacco Use Types [...] on file Legal Sex Female 3:22 AM DECAY 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 Gender Identity Not on file [...] Depression Total Score: 10 020 9:30 AM DECAY 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 documented as of this encounter Care Teams Coding Specialist Relationship Specialty Start Date End Date Julito Banuelos MD [address] [place] [address] PCP - General Family Practice 09/12/15 09/23/21 Vika Kevin APRN IMPERSONATOR CHARACTER [address] [place] [address]356 PCP - General Nurse Practitioner - Family 09/24/21 03/05/22 Vika Kevin APRN IMPERSONATOR CHARACTER [address] [place] [address] 79363 PCP - General Nurse Practitioner - Family 03/18/22 06/18/22 Vika Kevin, JAIME IMPERSONATOR CHARACTER [address] [place] [address] 39784 PCP - General Nurse Practitioner - Family 07/24/[address] [place] [address] Manager Radio Dietitian, Registered 04/14/19 Susannah Blankenship, [facility] [address] [place] [address] 812 [place] [address] Pharmacist Pharmacist 08/08/19 04/15/21 Carolyn Huynh [facility] [address] [place] [address] Pharmacist Pharmacist 06/25/20 04/15/21 Vika Kevin, JAIME IMPERSONATOR CHARACTER [address] [place] [address] Assigned PCP 07/22/20 11/16/24 Marilyn Willard MD [address] [place] [address] [address] [place] [address] Assigned Surgical Provider 08/17/20 08/16/24 Carie Varela DO [address] [place] [address] Assigned Heart and Vascular Provider 08/17/20 01/19/21 Maylin May NP [address] [place] [address] Assigned Pediatric Specialist Provider 12/16/20 06/13/22 Marisa Rodrigues, RN Clinic Group Worker 01/15/21 02/26/21 Vilma Long MD [address] [place] [address] Assigned Heart and Vascular Provider 01/20/21 07/20/21 [facility] [address] [place] [address] [phone] Pharmacist Pharmacist 06/04/21 01/15/22 Cole George LISW Lead Group Worker 06/13/21 10/07/21 Fletcher Up Community Health Worker 06/13/21 09/12/21 Bautista Casey MD [address] [place] [address] Assigned Heart and Vascular Provider 07/21/21 01/16/23 Jasmny Oliver CHW Community Health Worker 09/13/21 10/07/21 Yasmeen Pendleton [facility] [address] [place] [address] Assigned MTM Pharmacist 03/22/22 01/02/23 documented as of this encounter
--- OUTSIDE RECORDS SUMMARY | 2025-09-16 12:08 | XMS_ITS | Encounter Summary ---
Author Organization [place] Address [address] [facility] [place] [address] Care Team Providers Care Paraffiner Name Role Phone Andrew Lu MD Primary Care Provider [phone] Niko Resendiz MD Primary Care Provider Carlie Mac MD Primary Care Provide r Angella Mendieta MD Primary Care Provider Julito Banuelos MD Primary Care Provider [phone] Julito Banuelos MD Unavailable Julito Banuelos MD Unavailable Aleshia [address]rqi[address] RD Unavailable Unavailable Mary Kay Jones [facility] Unavailable Unavailable Susannah Blankenship [facility] Unavailable [phone] Carolyn Huynh [facility] Unavailable [phone] Vika Kevin APRN PRODUCTION SUPERINTENDENT HYDRO Unavailable + Marilyn Willard MD Unavailable [phone] Carie Varela DO Unavailable [phone] Maylni May NP Unavailable [phone] Marisa Rodrigues RN Unavailable Unavailable Vilma Long MD Unavailable + [phone] Yasmeen Pendleton [facility] Unavailable + [phone] Cole George Unavailable Fltecher Russell Unavailable Unavailable Bautista Casey MD Unavailable AnnyJasmyn tracey [facility] Unavailable [phone] Vkia Kevin APRN [facility] Primary Care Prov ider Vika Kevin APRN [facility] Primary Care Prov ider Yasmeen Pendleton [facility] Unavailable + [phone] [facility] Primary Care Prov ider Encounter Details Date Type Department Care Team (Late st Contact Info) Description 01/10/2014 MyC Medical Advice [facility] - Primary Care [address] [place] [phone] Emilie Dolan MD Social History Tobacco Use [...] on file Legal Sex Female 3: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 Gender Identity Not on file Sexual Orientation [...] Out COVID-19 12/04/2020 12/04/2020 12/05/2020 6:04 PM 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 documented as of this encounter Care Teams Paraffiner Relationship Specialty Start Date End Date Andrew Lu MD XXX RETIRED XXX [address] [place] [address] PCP - General 12/10/01 01/10/14 Niko Resendiz MD [address] [place] [address] PCP - General Internal Medicine 01/11/14 01/29/14 Carlie Mac MD [address] [place] [address] PCP - General Pediatrics 01/30/14 07/17/15 Angella Mendieta MD [address] [place] [address] PCP - General Family Practice 07/18/15 09/11/15 Julito Banuelos MD [address] [place] [address]64 PCP - General Family Practice 09/12/15 09/23/21 Julito Banuelos MD [address] [place] [address]76 PCP - Assigned PCP 02/17/16 12/28/18 Vika Kevin APRN PRODUCTION SUPERINTENDENT HYDRO [address] [place] [address] 25779 PCP - General Nurse Practitioner - Family 09/24/21 03/05/22 Vika Kevin APRN PRODUCTION SUPERINTENDENT HYDRO [address] [place] [address] 60494 PCP - General Nurse Practitioner - Family 03/18/22 06/18/22 Vika Kevin APRN PRODUCTION SUPERINTENDENT HYDRO [address] [place] [address] [phone] PCP - General Nurse Practitioner - Family 07/24/22 Julito Banuelos MD [address] [place] [address] [phone] Assigned PCP 02/17/16 07/21/[address] [place] [address] Artist Color Separation Dietitian, Registered 04/14/19 Mary Kay Jones, [facility] Pharmacist 08/01/19 04/20/20 [facility] [address] [place] [address] 812 [place], [place] 111[address] Pharmacist Pharmacist 08/08/19 04/15/21 [facility] [address] [place], [place] [phone] Pharmacist Pharmacist 06/25/20 04/15/21 Vika Kevin APRN PRODUCTION SUPERINTENDENT HYDRO [address] [place] [address] 117852 Assigned PCP 07/22/20 11/16/24 Marilyn Willard MD [address] [place] [address] [address] [place] [address] Assigned Surgical Provider 08/17/20 08/16/24 Carie Varela DO [address] [place], [place] [address] Assigned Heart and Vascular Provider 08/17/20 01/19/21 Maylin May NP [address] [place] [address] Assigned Pediatric Specialist Provider 12/16/20 06/13/22 Marisa Rodrigues, RN Clinic Cleaning Attendant 01/15/21 02/26/21 Vilma Long MD [address] [place] [address] Assigned Heart and Vascular Provider 01/20/21 07/20/21 Yasmeen Pendleton [facility] [address] [place] [address] Pharmacist Pharmacist 06/04/21 01/15/22 Cole George LISW Lead Cleaning Attendant 06/13/21 10/07/21 Fletcher Up Community Health Worker 06/13/21 09/12/21 Bautista Casey MD [address] [place] [address] Assigned Heart and Vascular Provider 07/21/21 01/16/23 Jasmyn Oliver CHW Community Health Worker 09/13/21 10/07/21 Yasmeen Pendleton [facility] [address] [place] [address] 200965 Assigned MTM Pharmacist 03/22/22 01/02/23 documented as of this encounter
--- OUTSIDE RECORDS SUMMARY | 2025-09-16 12:08 | XMS_ITS | Encounter Summary ---
Author Organization [place] Address [address] [place] [address] Care Team Providers Care Clock Smith Name Role Phone Julito Banuelos MD Primary Care Provider [phone] Julito Banuelos MD Unavailable Aleshia Henriquez RD Unavailable Unavailable Susannah Blankenship [facility] Unavailable [phone] Carolyn Huynh [facility] Unavailable [phone] Vika Kevin APRN OPERATIONS AND MAINTENANCE TECHNICAN Unavailable + Marilyn Willard MD Unavailable [phone] Carie Varela DO Unavailable +[phone] Maylin May NP Unavailable [phone] Marisa Hernandez RN Unavailable Unavailable Vilma Long MD Unavailable + [phone] Yasmeen Pendleton [facility] Unavailable Cole George Unavailable Fletcher Russell Unavailable Unavailable Bautista Casey MD Unavailable [phone] Jasmyn Oliver Unavailable [phone] Vika Kevin APRN OPERATIONS AND MAINTENANCE TECHNICAN Primary Care Prov ider Vika Kevin APRN [facility] Primary Care Prov ider Yasmeen Pendleton [facility] Unavailable + [phone] Vika Kevin APRN [facility] Primary Care [facility] ider Reason for Visit * Reason Comments Medication Refill Encounter Details Date Type Department Care Team (Late st Contact Info) Description 07/03/[address] [address] [place] [address] [place] [address] Medication Refill Social History Tobacco Use [...] file Legal 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 Gender Identity Not on file Sexual [...] per RN protocol Leslye Steiner RN, BSN Weaver Triage documented in this encounter Plan of Treatment Not on file documented as of this encounter Visit Diagnoses Diagnosis Gastroesophageal reflux disease without esophagitis Esophageal reflux documented in this encounter Additional Health Concerns Infection Onset Date Last Indicated Resolved Time Rule Out COVID-19 07/25/2020 07/25/2020 07/26/2020 3:02 PM CDT Rule Out COVID-19 12/04/2020 12/04/2020 12/05/2020 6:04 PM EDGE GRINDER MACHINE Assessment Noted Time PHQ-9 Depression Total Score: 12 06/19/ 020 3:35 PM CDT documented as of this encounter Care Teams Clock Smith Relationship Specialty Start Date End Date Julito Banuelos MD [address] [place] [address] 17049 PCP - General Family Practice 09/12/15 09/23/21 Vika Kevin APRN OPERATIONS AND MAINTENANCE TECHNICAN [address] [place] [address] 24820 PCP - General Nurse Practitioner - Family 09/24/21 03/05/22 Vika Kevin APRN OPERATIONS AND MAINTENANCE TECHNICAN [address] [place] [address] PCP - General Nurse Practitioner - Family 03/18/22 06/18/22 Vika Kevin APRN OPERATIONS AND MAINTENANCE TECHNICAN [address] [place] [address] 66081 PCP - General Nurse Practitioner - Family 07/24/22 Julito Banuelos MD [address] [place] [address] 06682 Assigned PCP 02/17/16 07/21/[address] [place] [address] 88673 Radiotelephone Operator Dietitian, Registered 04/14/19 Susannah Blankenship, [facility] [address] [place] [address] 8[address] [place] [address] Pharmacist Pharmacist 08/08/19 04/15/21 Carolyn Huynh [facility] [address] [place], [place] [address] Pharmacist Pharmacist 06/25/20 04/15/21 Vika Kevin APRN OPERATIONS AND MAINTENANCE TECHNICAN [address] [place], [place] [address] Assigned PCP 07/22/20 11/16/24 Marilyn Willard MD [address] [facility] [address] [place], [place] [address] Assigned Surgical Provider 08/17/20 08/16/24 Carie Varela DO [address] [place] [address] Assigned Heart and Vascular Provider 08/17/20 01/19/21 Maylin May NP [address] [place], [place] [id number] Assigned Pediatric Specialist Provider 12/16/20 06/13/22 Mairsa Rodrigues, RN Clinic Public Safety Telecommunicator 01/15/21 02/26/21 Vilma Long MD [address] [place] [address] Assigned Heart and Vascular Provider 01/20/21 07/20/21 Yasmeen Pendleton [facility] [address] [place], [place] [address] Pharmacist Pharmacist 06/04/21 01/15/22 oCle George LISW Lead Public Safety Telecommunicator 06/13/21 10/07/21 Fletcher Up Community Health Worker 06/13/21 09/12/21 Bautista Casey MD [address] [place] [address] Assigned Heart and Vascular Provider 07/21/21 01/16/23 Jasmyn Oliver CHW Community Health Worker 09/13/21 10/07/21 Yasmeen Pendleton [facility] [address] [place] [address] Assigned MTM Pharmacist 03/22/22 01/02/23 documented as of this encounter
--- OUTSIDE RECORDS SUMMARY | 2025-09-16 12:08 | XMS_ITS | Encounter Summary ---
Author Organization [place] Address [address] [facility] [place] [address] Care Team Providers Care Cable Mock Up Assembler Name Role Phone Andrew Lu MD Primary Care Provider [phone] Niko Resendiz MD Primary Care Provider Carlie Mac MD Primary Care Provide r Angella Mendieta MD Primary Care Provider Julito Banuelos MD Primary Care Provider [phone] Julito Banuelos MD Unavailable Julito Banuelos MD Unavailable Aleshia Henriquez RD Unavailable Unavailable Mary Kay Jones [facility] Unavailable Unavailable Susannah Blankenship [facility] Unavailable [phone] Carolyn Huynh [facility] Unavailable [phone] Vika Kevin APRN TICKETING CLERK Unavailable + Marilyn Willard MD Unavailable [phone] Carie Varela DO Unavailable [phone] Maylin May NP Unavailable [phone] Marisa Rodrigues RN Unavailable Unavailable Vilma Long MD Unavailable + [phone] Yasmeen Pendleton [facility] Unavailable [phone] Cole George Unavailable Fletcher Russell Unavailable Unavailable Bautista Casey MD Unavailable [phone] AnnyJasmyn tracey [facility] Unavailable [phone] Vika Kevin APRN [facility] Primary Care Prov ider Vika Kevin APRN [facility] Primary Care Prov ider Yasmeen Pendleton [facility] Unavailable [phone] V[facility] Primary Care Prov ider Encounter Details Date Type Department Care Team (Late st Contact Info) Description 05/25/2007 MyC Medical Advice [address] [phone] Andrew Lu MD XXX RETIRED XXX [address] [place] [phone] Social History Tobacco Use Types Packs/Day Years Used Date Smoking Tobacco: Former Cigarettes 0.3 15 0 10/26/1961 - 10/26/1976 Alcohol Use Standard Drinks/Week Comments Yes 0 (1 standard drink = 0.6 oz pur e alcohol) 1 wine 2x qweek Comments No Sex and Gender Information Value Date Recorded Sex Assigned at Not on file 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 Gender Identity Not on file Sexual Orientation Not on file documented as of this encounter Plan of Treatment Not on file documented as of this encounter Visit Diagnoses Not on filedocumented in this encounter Additional Health Concerns Infection Onset Date Last Indicated Resolved Time Rule Out COVID-19 07/25/2020 07/25/2020 07/26/2020 3:02 PM CDT Rule Out COVID-19 12/04/2020 12/04/2020 12/05/2020 6:04 PM YARN SORTER documented as of this encounter Care Teams Cable Mock Up Assembler Relationship Specialty Start Date End Date Andrew Lu MD XXX RETIRED XXX [address] [place] [phone] PCP - General 12/10/01 01/10/14 Niko Resendiz MD [address] [place] [address]1887 PCP - General Internal Medicine 01/11/14 01/29/14 Carlie Mac MD [address] [place], [place] [phone] PCP - General Pediatrics 01/30/14 07/17/15 Angella Mendieta MD [address] [place] [address] [phone] PCP - General Family Practice 07/18/15 09/11/15 Julito Banuelos MD [address] [place] [address] [phone] PCP - General Family Practice 09/12/15 09/23/21 Julito Banuelos MD [address] [place] [address]95 PCP - Assigned PCP 02/17/16 12/28/18 Vika Kevin APRN TICKETING CLERK [address] [place] [address] [phone] PCP - General Nurse Practitioner - Family 09/24/21 03/05/22 Vika Kevin APRN TICKETING CLERK [address] [place] [address] 380512 PCP - General Nurse Practitioner - Family 03/18/22 06/18/22 Vika Kevin APRN TICKETING CLERK [address] [place] [address] [phone] PCP - General Nurse Practitioner - Family 07/24/22 Julito Banuelos MD [address] [place] [address] 244342 Assigned PCP 02/17/16 07/21/[address] [place] [address] Prep Person Dietitian, Registered 04/14/19 Mary Kay Jones, [facility] Pharmacist 08/01/19 04/20/20 [facility] [address] [place] [address] 8[address] [place], [place] [address]655 Pharmacist Pharmacist 08/08/19 04/15/21 [facility] [address] [place] [address] Pharmacist Pharmacist 06/25/20 04/15/21 Vika Kevin APRN TICKETING CLERK [address] [place] [address] [phone] Assigned PCP 07/22/20 11/16/24 Marilyn Willard MD [address] [place] [address] [address] [place], [place] [address] Assigned Surgical Provider 08/17/20 08/16/24 Carie Varela DO [address] [place] [address] Assigned Heart and Vascular Provider 08/17/20 01/19/21 Maylin May NP [address] [place] [address] Assigned Pediatric Specialist Provider 12/16/20 06/13/22 Marisa Rodrigues, RN Clinic Manager Cardiac 01/15/21 02/26/21 Vilma Long MD [address] [place] [address] Assigned Heart and Vascular Provider 01/20/21 07/20/21 Yasmeen Pendleton [facility] [address] [place] [address] Pharmacist Pharmacist 06/04/21 01/15/22 Cole George LISW Lead Manager Cardiac 06/13/21 10/07/21 Fletcher Up Community Health Worker 06/13/21 09/12/21 Bautista Casey MD [address] [place] [address] Assigned Heart and Vascular Provider 07/21/21 01/16/23 Jasmyn Oliver CHW Community Health Worker 09/13/21 10/07/21 Yasmeen Pendleton [facility] [address] [place] [address] Assigned MTM Pharmacist 03/22/22 01/02/23 documented as of this encounter
--- OUTSIDE RECORDS SUMMARY | 2025-09-16 12:08 | XMS_ITS | Encounter Summary ---
Author Organization [place] Address [address] [place] [address] Care Team Providers Care Spud Sorter Name Role Phone Carlie Mac MD Primary Care Provide r Angella Mendieta MD Primary Care Provider Julito Banuelos MD Primary Care Provider [phone] Julito Banuelos MD Unavailable Julito Banuelos MD Unavailable Aleshia Henriquez RD Unavailable Unavailable Mary Kay Jones [facility] Unavailable Unavailable Susannah Blankenship [facility] Unavailable Carolyn Huynh [facility] Unavailable [phone] Vika Kevin APRN RN RADIATION Unavailable + Marilyn Willard MD Unavailable Carie Varela DO Unavailable Maylin May NP Unavailable [phone] Marisa Hernandez RN Unavailable Unavailable Vilma Long MD Unavailable Yasmeen Pendleton [facility] Unavailable Cole George Unavailable Fletcher Russell Unavailable Unavailable IpBautista MD Unavailable Jasmyn Oliver [facility] Unavailable [phone] Vika Kevin APRN [facility] Primary Care Prov ider Viak Kevin APRN [facility] Primary Care Prov ider Yasmeen Pendleton [facility] Unavailable [phone] Vika Kevin APRN [facility] Primary Care Prov ider Reason for Visit * Reason Onset Date Comments Other 09/30/2014 [facility] Encounter Details Date Type Department Care Team (Late st Contact Info) Description 09/30/2014 MyC Medical Advice [address] [phone] Carlie Mac MD [address] [place] [address] Other ([facility] Social History Tobacco Use Types Packs/Day [...] on file 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 Gender Identity Not on file [...] Out COVID-19 12/04/2020 12/04/2020 12/05/2020 6:04 PM CANDY FORMING 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 documented as of this encounter Care Teams Spud Sorter Relationship Specialty Start Date End Date Carlie Mac MD [address] [place], [place] [phone] PCP - General Pediatrics 01/30/14 07/17/15 Angella Mendieta MD [address] [place] [address] PCP - General Family Practice 07/18/15 09/11/15 Julito Banuelos MD [address] [place] [address] [phone] PCP - General Family Practice 09/12/15 09/23/21 Julito Banuelos MD [address] [place] [address] [id number] PCP - Assigned PCP 02/17/16 12/28/18 Vika Kevin APRN RN RADIATION [address] [place] [address] 16984 PCP - General Nurse Practitioner - Family 09/24/21 03/05/22 Vika Kevin APRN RN RADIATION [address] [place] [address] 32191 PCP - General Nurse Practitioner - Family 03/18/22 06/18/22 Vika Kevin APRN RN RADIATION [address] [place] [address] 616[address] PCP - General Nurse Practitioner - Family 07/24/22 Julito Banuelos MD [address] [place] [address] [phone] Assigned PCP 02/17/16 07/21/[address] [place] [address] [place] [address] Contracts Officer Dietitian, Registered 04/14/19 Mary Kay Jones, [facility] Pharmacist 08/01/19 04/20/20 Susannah Blankenship, [facility] [address] [facility] [address] [place], [place] [address] Pharmacist Pharmacist 08/08/19 04/15/21 Carolyn Huynh [facility] [address] [place], [place] [address] Pharmacist Pharmacist 06/25/20 04/15/21 Vika Kevin APRN RN RADIATION [address] [place] [address] 820452 Assigned PCP 07/22/20 11/16/24 Marilyn Willard MD [address] [place] [address] [address] [place], [place] 4[address]95 Assigned Surgical Provider 08/17/20 08/16/24 Carie Varela DO [address] [place], [place] 169[address] Assigned Heart and Vascular Provider 08/17/20 01/19/21 Maylin May NP [address] [place], [place] [id number] Assigned Pediatric Specialist Provider 12/16/20 06/13/22 Marisa Rodrigues, RN Clinic Diversified Crops I Farmworker 01/15/21 02/26/21 Vilma Long MD [address] [place] [address] Assigned Heart and Vascular Provider 01/20/21 07/20/21 Yasmeen Pendleton, [facility] [address] [place], [place] [address] Pharmacist Pharmacist 06/04/21 01/15/22 Cole George LISW Lead Diversified Crops I Farmworker 06/13/21 10/07/21 Fletcher Up Community Health Worker 06/13/21 09/12/21 Bautista Casey MD [address] [place] [address] Assigned Heart and Vascular Provider 07/21/21 01/16/23 Jasmyn Oliver [facility] Community Health Worker 09/13/21 10/07/21 Yasmeen Pendleton [facility] [address] [place] [address] Assigned MTM Pharmacist 03/22/22 01/02/23 documented as of this encounter
--- OUTSIDE RECORDS SUMMARY | 2025-09-16 12:08 | XMS_ITS | Encounter Summary ---
Author Organization [place] Address [address] [facility] [place] [address] Care Team Providers Care Jet Dyeing Machine Operator Name Role Phone Niko Resendiz MD Primary Care Provider Carlie Mac MD Primary Care Provide r Angella Mendieta MD Primary Care Provider Julito Banuelos MD Primary Care Provider Julito Banuelos MD Unavailable Julito Banuelos MD Unavailable Aleshia Henriquez RD Unavailable Unavailable Mary Kay Jones RP Unavailable Unavailable Susannah Blankenship [facility] Unavailable [phone] Carolyn Huynh [facility] Unavailable [phone] Vika Kevin GAS APPLIANCE MECHANIC MOSAIC TECHNICIAN Unavailable + Marilyn Willard MD Unavailable Carie Varela DO Unavailable [phone] Maylin May NP Unavailable [phone] Marisa Hernandez RN Unavailable Unavailable Vilma Long MD Unavailable + [phone] Yasmeen Pendleton [facility] Unavailable Cole George Unavailable Unavai jonathan Up Fletcher Unavailable Unavailable Ip, Bautista Bell MD Unavailable [phone] TatyanaJasmyn anand W Unavailable [phone] Vika Kevin GAS APPLIANCE MECHANIC [facility] Primary Care Prov ider Vika Kevin [facility] Primary Care Prov ider Yasmeen Pendleton [facility] Unavailable + [phone] Vika Kevin [facility] Primary Care Prov ider Reason for Visit * Reason Onset Date Comments Medication Question 01/28/2014 Update Encounter Details Date Type Department Care Team (Late st Contact Info) Description 01/28/2014 [facility] Medical Advice [address] [address] Carlie Mac MD [address] [place] [address] Medication Question (Update ) Social [...] on file 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 Gender Identity Not on file Sexual [...] Out COVID-19 12/04/2020 12/04/2020 12/05/2020 6:04 PM COMMISSION ASSOCIATE documented as of this encounter Care Teams Jet Dyeing Machine Operator Relationship Specialty Start Date End Date Niko Resendiz MD [address] [place] [address] PCP - General Internal Medicine 01/11/14 01/29/14 Carlie Mac MD [address] [place] [address] PCP - General Pediatrics 01/30/14 07/17/15 Angella Mendieta MD [address] [place] [address]66 PCP - General Family Practice 07/18/15 09/11/15 Julito Banuelos MD [address] [place] [address]341 PCP - General Family Practice 09/12/15 09/23/21 Julito Banuelos MD [address] [place] [address] PCP - Assigned PCP 02/17/16 12/28/18 Vika Kevin APRN MOSAIC TECHNICIAN [address] [place] [address] PCP - General Nurse Practitioner - Family 09/24/21 03/05/22 Vika Kevin APRN MOSAIC TECHNICIAN [address] [place] [address] PCP - General Nurse Practitioner - Family 03/18/22 06/18/22 Vika Kevin APRN MOSAIC TECHNICIAN [address] [place] [address] PCP - General Nurse Practitioner - Family 07/24/22 Julito Banuelos MD [address] [place] [address] 312282 Assigned PCP 02/17/16 07/21/[address] [place] [address] 28942 Success Coach Dietitian, Registered 04/14/19 Mary Kay Jones, [facility] Pharmacist 08/01/19 04/20/20 Susannah Blankenship [facility] [address] [facility] [address] [place], [place] [address] Pharmacist Pharmacist 08/08/19 04/15/21 Carolyn Huynh, [facility] [address] [place], [place] [address] Pharmacist Pharmacist 06/25/20 04/15/21 Vika Kevin, JAIME MOSAIC TECHNICIAN [address] [place] [address] [phone] Assigned PCP 07/22/20 11/16/24 Marilyn Willard MD [address] [facility] [address] [place], [place] [address] Assigned Surgical Provider 08/17/20 08/16/24 Carie Varela DO [address] [place] [address] Assigned Heart and Vascular Provider 08/17/20 01/19/21 Maylin May NP [address] [place] [address] Assigned Pediatric Specialist Provider 12/16/20 06/13/22 Marisa Rodrigues, RN Clinic Process Improvement Analyst 01/15/21 02/26/21 Vilma Long MD [address] [place] [address] Assigned Heart and Vascular Provider 01/20/21 07/20/21 [facility] [address] [place] [address] Pharmacist Pharmacist 06/04/21 01/15/22 Cole George LISW Lead Process Improvement Analyst 06/13/21 10/07/21 Fletcher Up Community Health Worker 06/13/21 09/12/21 Bautista Casey MD [address] [place] [address] Assigned Heart and Vascular Provider 07/21/21 01/16/23 Jasmyn Oliver CHW Community Health Worker 09/13/21 10/07/21 [facility] [address] [place] [address] Assigned MTM Pharmacist 03/22/22 01/02/23 documented as of this encounter
--- OUTSIDE RECORDS SUMMARY | 2025-09-16 12:08 | XMS_ITS | Clinical Summary ---
Author Organization [place] Address [address] [facility] 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,Type 2 diabetes mellitus [...] 24 hr tabletIndication s: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 Take 1 tablet [...] 20 MG tabletIndication s: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 03/31/2012 Coronary artery disease invo lving lytton coronary artery without angina pectoris 08/24/2015 Multiple [...] found in bladder incidentally 05/2013 Atherosclerosis of lytton co ronary artery of lytton heart with angina pectoris 12/27/2012 Overview (07/30/2019): [...] in adult, unspecified obesity type 01/14/2019 06/19/20 [place] (myocardial infarction) 0 06/19/2021 DM (diabetes mellitus) [...] and Family Not on file 06/14/2021 Attends [employer] Services Not on file 06/14 Active Member [...] place to sleep or slept in a snf (including now)? 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 Not on file Not on file Last Filed Vital Signs Vital Sign Reading Time Taken Comments Blood Pressure 126/62 09/25/2021 12:08 PM TANBARK PEELER Pulse 102 09/25/2021 12:08 PM TANBARK PEELER Temperature 36.8 C (98.2 F) 09/25/2021 12:08 PM TANBARK PEELER Respiratory Rate 16 06/19/2021 3:30 PM CDT Oxygen Saturation 94% 09/25/2021 12:08 PM TANBARK PEELER Inhaled Oxygen Concentration - - Weight 81.6 [...] Additional history exists COVID-19 VACCINE ( season) 2025 03/03/2022, 06/19/2021, 12/25/2020, Additional history exists INFLUENZA [...] (Cologuard) Discontinued Medical Devices Implanted Type Area Bike Technician Device Identifier Shelf Expiration Date Model / Serial / Lot Imp Plate Syn 1/3 Tubular 85mm 07h Ss 241.37 Implanted:Qty : 1 on 01/12/2021 by Rom Martell MD at [facility] Metallic Hardware/Anc hor Right: Ankle SYNTHES-STRATEC 241.37 / / [id number] Imp Scr Syn Cortex 3.5x16mm Self Tap Ss 204.816 Implanted:Qty : 3 on 01/12/2021 by Rom Martell MD at [facility] Metallic Hardware/Anc hor Right: Ankle SYNTHES-STRATEC 204.816 / / [id number] Imp Scr Syn Can 4.0x14mm Ft Ss 206.014 Implanted:Qty : 1 on 01/12/2021 by Rom Martell MD at [facility] Metallic Hardware/Anc hor Right: Ankle SYNTHES-STRATEC 206.014 / / [id number] Imp Scr Syn Can 4.0x16mm Ft Ss 206.016 Implanted:Qty : 2 on 01/12/2021 by Rom Martell MD at [facility] Metallic Hardware/Anc hor Right: Ankle SYNTHES-STRATEC 206.016 / / [id number] Imp Scr Syn Can 4.0x50mm Ft Ss 206.050 Implanted:Qty : 1 on 01/12/2021 by Rom Martell MD at [facility] Metallic Hardware/Anc hor Right: Ankle SYNTHES-STRATEC 206.050 / / [id number] Procedures Procedure Name Priority Date/Time Associated Diagnosis Comments UA MACROSCOPIC WITH REFLEX TO MICRO AND CULTURE Routine 09/23/2021 3:09 PM TANBARK PEELER Urinary tract infection Corona catheter in place [...] RANDOM URINE QUANTITATIVE Routine 08/28/2020 3:27 PM TANBARK PEELER Hypertension goal BP (blood pressure) < 140/90 [...] DEXA - HIM SCAN 11/02/2015 12:00 AM TANBARK PEELER EYE EXAM - HIM SCAN Routine 09/25/2014 HC SPIROMETRY, BREATH CAPACITY Routine 03/13/2011 ASTHMA - MODERATE PERSISTENT from Last 3 Months or Most Recently Relevant to Health Maintenance Results * (ABNORMAL) UA reflex to Microscopic and Culture (09/23/2021 3:09 PM TANBARK PEELER) Color Urine Yellow Colorless, Straw, Light Yellow, Yellow 09/23/2021 3:13 PM TANBARK PEELER [facility] Appearance Urine Clear Clear 09/23/20 3:13 PM TANBARK PEELER [facility] Glucose Urine Negative Negative mg/dL 09/23/2021 3:13 PM TANBARK PEELER [facility] Bilirubin Urine Negative Negative 3:13 PM TANBARK PEELER [facility] Ketones Urine Negative Negative mg/dL 09/23/2021 3:13 PM TANBARK PEELER [facility] Specific [place] Urine 1.020 1.003 - 1.035 09/23/2021 3:13 PM TANBARK PEELER [facility] Blood Urine Trace(A) Negative 09/23/2021 3:13 PM TANBARK PEELER [facility] pH Urine 6.0 5.0 - 7.0 09/23/2021 3:13 PM TANBARK PEELER [facility] Protein Albumin Urine 30(A) Negative mg/dL 09/23/2021 3:13 PM TANBARK PEELER [facility] Urobilinogen Urine 0.2 0.2, 1.0 E.U./dL 09/23/2021 3:13 PM TANBARK PEELER [facility] Nitrite Urine Positive(A) Negative 09/23/2021 3:13 PM TANBARK PEELER [facility] Leukocyte Esterase Urine Moderate(A) Negative 09/23/2021 3:13 PM TANBARK PEELER [facility] Urine URINE SPECIMEN OBTAINED VIA INDWELLING URINARY CATHETER / Unknown Non-blood Collection / Unknown 09/23/2021 3:09 PM TANBARK PEELER 09/23/2021 3:09 PM TANBARK PEELER us Julito Banuelos MD LAB - URINE ORDERABLES Final Res ult RV LABORATORY [facility] [address] [place] [address] Lab (no room number, 1st floor of clinic) [place] [id number], [facility] [phone] * (ABNORMAL) Comprehensive metabolic panel (BMP + Alb, Alk Phos, ALT, AST, Total. Bili, TP) (07/12/2021 9:45 AM CDT) Sodium 137 133 - 144 mmol/L 07/13/2021 1:05 PM CDT [facility] Potassium (POCT) 4.2 3.4 - 5.3 mmol/L 07/13/2021 1:05 PM CDT [facility] Chloride (POCT) 106 94 - 109 mmol/L 07/13/2021 1:05 PM CDT [facility] Carbon Dioxide (CO2) (POCT) 27 20 - 32 mmol/L 07/13/2021 1:05 PM CDT [facility] Anion Gap (POCT) 4 3 - 14 mmol/L 07/13/2021 1:05 PM CDT [facility] Urea Nitrogen (POCT) 21 7 - 30 mg/dL 07/13/2021 1:05 PM CDT [facility] Creatinine 0.83 0.52 - 1.04 mg/dL 07/13/2021 1:05 PM CDT [facility] Calcium 8.5 8.5 - 10.1 mg/dL 07/13/2021 1:05 PM CDT [facility] Glucose (POCT) 99 70 - 99 mg/dL 07/13/2021 1:05 PM CDT [facility] Alkaline Phosphatase 155(H) 40 - 150 U/L 07/13/2021 1:05 PM CDT [facility] AST 71(H) 0 - 45 U/L 07/13/2021 1:05 PM CDT [facility] ALT 73(H) 0 - 50 U/L 07/13/2021 1:05 PM CDT [facility] Protein Total 7.4 6.8 - 8.8 g/dL 07/13/2021 1:05 PM CDT [facility] Albumin (POCT) 3.6 3.4 - 5.0 g/dL 07/13/2021 1:05 [...] 07/12/2021 9:45 AM CDT Vika Kevin APRN DIRECTOR EMPLOYEE COMMUNICATIONS LAB - BLOOD ORDERA BLES Final Result LABORATORY [facility] [address] Lab (no room number, 1st floor of clinic) [place] [address], [facility] [phone] * TSH with free T4 reflex (04/26/2021 12:18 PM CDT) TSH 1.56 0.40 - 4.00 mU/L 04/28/2021 10:28 AM CDT [facility] Blood 04/26/2021 12:1 8 PM CDT 04/26/2021 12:19 PM CDT us Vika Kevin APRN, CNP LAB - BLOOD ORDERA BLES Final Result Performing Organization Address [facility]/ZIP Co de Phone Number [facility] [address] [place] [address] * Hemoglobin A1c (04/26/2021 12:18 PM CDT) Hemoglobin A1C 5.5 0 - 5.6 % 04/26/2021 12:54 PM CDT [facility] Comment: Normal <5.7% Prediabetes 5.7-6.4% Diabetes 6.5% or higher - adopted from ADA consensus guidelines. Blood 04/26/2021 12:1 8 PM CDT 04/26/2021 12:19 PM CDT Vika Kevin APRN, CNP LAB - BLOOD ORDERA BLES Final Result Performing Organization Address [facility] Co de Phone Number [address] [address] * (ABNORMAL) Albumin Random Urine Quantitative with Creat Ratio (08/28/2020 3:27 PM TANBARK PEELER) Creatinine Urine 121 mg/dL 08/29/2020 5:22 PM TANBARK PEELER [facility] Albumin Urine mg/L 121 mg/L 08/29/2020 6:46 PM TANBARK PEELER [facility] Albumin Urine mg/g Cr 100.00(H) 0 - 25 mg/g Cr 08/29/2020 6:46 PM TANBARK PEELER [facility] Urine specimen (specimen) 08/28/2020 3:27 PM TANBARK PEELER 08/28/2020 3:28 PM TANBARK PEELER us Vika Kevin APRN, CNP LAB - URINE ORDERA BLES Final Result [facility] [address], [place] [address] * (ABNORMAL) Lipid panel reflex to direct LDL Fasting (07/20/2020 11:48 AM CDT) Cholesterol 103 <200 mg/dL 07/20/2020 6:34 PM CDT [facility] Triglycerides 118 <150 mg/dL 07/20/2020 6:33 PM CDT [facility] HDL Cholesterol 41(L) >49 mg/dL 0 6:39 PM CDT [facility] LDL Cholesterol Calculated 38 <100 mg/dL 07/20/2020 6:39 PM CDT [facility] Comment:Desirable: <100 mg/d l Non HDL Cholesterol 62 <130 mg/dL 07/20/2020 6:39 PM CDT [facility] Blood specimen (specimen) 07/20/2020 11:48 AM CDT 07/20/2020 11:50 AM CDT us Braeden Sow MD LAB - BLOOD ORDERABLES Final Result [facility] [address] [place] [address] * MA Diagnostic Right w/Jefry (04/15/2018 9:55 [...] SEE PROGRESS NOTE [employer] Provider Outside OTHER Final Result * COLONOSCOPY (05/02/2016 7:39 AM CDT) Pathologist [facility] Patient Name: Marialuisa Cosby Procedure Date: 05/02/2016 [...] and oxygen saturations were monitored continuously. The [id number] was introduced through the anus and advanced [...] pathology results. Procedure Code(s): --- Professional --- 73525, Colonoscopy, flexible, proximal to splenic flexure; with removal of tumor(s), polyp(s), or other lesion(s) by snare technique 74478, Colonoscopy, flexible, proximal to splenic flexure; with directed submucosal injection(s), any substance CPT copyright 2013 [employer]. All rights reserved. The codes documented in this report are preliminary and upon outside operator review may be revised to meet [...] Occult Blood Scn FIT Positive(A ) NEG [facility] Stool specimen (specimen) 04/16/2016 04/19/2016 12:54 PM CDT Julito Banuelos MD LAB - STOOLS ORDERABLES Final Re sult [facility] [address] [place] [address] * DEXA - HIM SCAN (11/02/2015 12:00 AM TANBARK PEELER) Anatomical Region Laterality Modality Other 11/02/2015 Provider Outside IMG DEXA ORDERABLES Final Resul t * Eye Exam - HIM Scan (09/25/2014) Narrative Dora De León - 09/25/2014 for eye exam, had it done 09/2014 at [facility]. [place] Patient Reported OTHER Final Result * Spirometry, Breath Capacity (03/13/2011) Andrew Lu MD PROCEDURES Final Result from Last 3 Months or Most Recently Relevant to Health Maintenance Insurance [facility] MEDICARE ADVANTAGE [facility] MEDICARE ADVANTAGE * Guarantor: Marialuisa Cosby Account Type Relation to Patient Date of Phone Billing Address Medication Therapy Self [address] [place] [address] [facility] MEDICARE ADVANTAGE [facility] MEDICARE ADVANTAGE Advance Directives For more information, please contact: [phone] * Full Code (Latest Code Status on [...] 4:58 AM 07/03/2014 1:24 PM Care Teams Retail Gift Card Merchandising Relationship Specialty Start Date End Date Vika Kevin APRN CNP [address] [place] [address] PCP - General Nurse Practitioner - Family 07/24/[address] Independent Living Specialist Dietitian, Registered 04/14/19
--- OUTSIDE RECORDS SUMMARY | 2025-09-16 12:08 | XMS_ITS | Encounter Summary ---
Author Organization [place] Address [address] [place] [address] Care Team Providers Care Director Of Business Applications Name Role Phone Cortez Lu MD Primary Care Provider [phone] Niko Resendiz MD Primary Care Provider Carlie Mac MD Primary Care Provide r Angella Mendieta MD Primary Care Provider Julito Banuelos MD Primary Care Provider [phone] Julito Banuelos MD Unavailable Julito Banuelos MD Unavailable Aleshia Henriquez RD Unavailable Unavailable Mary Kay Jones [facility] Unavailable Unavailable Susannah Blankenship [facility] Unavailable [phone] Carolyn Huynh [facility] Unavailable [phone] Vika Kevin APRN SENIOR MAINFRAME DEVELOPER Unavailable + Marilyn Willard MD Unavailable [phone] Carie Varela DO Unavailable [phone] Maylin May NP Unavailable [phone] Marisa Rodrigues RN Unavailable Unavailable Vilma Long MD Unavailable + [phone] Yasmeen Pendleton [facility] Unavailable + [phone] Cole George Unavailable Fletcher Russell Unavailable Unavailable Bautista Casey MD Unavailable [phone] TatyanaJasmyn anand [facility] Unavailable [phone] Vika Kevin APRN [facility] Primary Care Prov ider Vika Kevin APRN [facility] Primary Care Prov ider Yasmeen Pendleton [facility] Unavailable + [phone] [facility] Primary Care Prov ider Encounter Details Date Type Department Care Team (Late st Contact Info) Description 11/14/2013 Office Visit-[facility] Heart [facility] [address] [facility] [address] [place] [phone] Cristy Hanna, JAIME [facility] XXX RESIGNED XXX [address] [facility] [address] [place] [id number] Social History Tobacco Use Types Packs/Day Years Used Date Smoking Tobacco: Former Cigarettes 0.3 15 0 10/26/1961 - 10/26/1976 Smokeless Tobacco: Never Alcohol Use Standard Drinks/Week Comments Yes 0 (1 standard drink = 0.6 oz pur e alcohol) 1-2 glasses of wine weekly Comments No Sex and Gender Information Value Date Recorded Sex Assigned at Not on file Legal Sex Female 3:22 AM ASSEMBLER GARMENT FORM Gender Identity Not on file Sexual Orientation [...] old Referring Physician: CORTEZ LU Referring Clinic: [facility] CURRENT DIAGNOSES 1. Diabetes Hxihkami-Qyk-Qodllil Dependent, 250.00 2. - Hyperlipidemia mixed, 272.2 [...] daily 10. Nasacort AQ 55 mcg Aerosol, [place], Take as Directed 11. Plavix 75 mg [...] of meeting Marialuisa James, at [facility]. She is a [...] Illnesses: CAD, s/p [place] Surgeries/Procedures - General: hysterectomy, tonsillectomy Cardiac/Vasc Procedures-Invasive: left heart cath 12/2012 ([place]) Cardiology Procedures-NonInvasive: echocardiogram Jun 2007, myocardial perfusion (Nuc) Jun 2007, echo 12/2012 ([place]), stress echo February 2013 Cardiac Cath Results: 12/2012 Deputy Resolute NEL[place] to the mid and prox [...] [place] for 3 months; Place of - [place]; REVIEW OF SYSTEMS GENERAL fatigue, weight loss, [...] takes allergy shots, allergies get worse in [place] but they can get bad in [place] [...] Out COVID-19 12/04/2020 12/04/2020 12/05/2020 6:04 PM ASSEMBLER GARMENT FORM documented as of this encounter Care Teams Director Of Business Applications Relationship Specialty Start Date End Date Cortez Lu MD XXX RETIRED XXX [address] [place] [phone] PCP - General 12/10/01 01/10/14 Niko Resendiz MD [address] [address] PCP - General Internal Medicine 01/11/14 01/29/14 Carlie Mac MD [address] [place] [address] PCP - General Pediatrics 01/30/14 07/17/15 Angella Mendieta MD [address] [place] [address] PCP - General Family Practice 07/18/15 09/11/15 Julito Banuelos MD [address] [place] [address] PCP - General Family Practice 09/12/15 09/23/21 Julito Banuelos MD [address] [place] [address] PCP - Assigned PCP 02/17/16 12/28/18 Vika Kevin APRN SENIOR MAINFRAME DEVELOPER [address] [place] [address] PCP - General Nurse Practitioner - Family 09/24/21 03/05/22 Vika Kevin APRN SENIOR MAINFRAME DEVELOPER [address] [place] [address] PCP - General Nurse Practitioner - Family 03/18/22 06/18/22 Vika Kevin APRN SENIOR MAINFRAME DEVELOPER [address] [place] [address] PCP - General Nurse Practitioner - Family 07/24/22 Julito Banuelos MD [address] [place] [address] Assigned PCP 02/17/16 07/21/[address] [place] [address] Vice President Tax Dietitian, Registered 04/14/19 Mary Kay Jones [facility] Pharmacist 08/01/19 04/20/20 Susannah Blankenship [facility] [address] [place] [address] [address] [place] [address] Pharmacist Pharmacist 08/08/19 04/15/21 Carolyn Huynh [facility] [address] [place] [address] Pharmacist Pharmacist 06/25/20 04/15/21 Vika Kevin APRN SENIOR MAINFRAME DEVELOPER [address] [place], [place] [address] Assigned PCP 07/22/20 11/16/24 Marilyn Willard MD [address] [facility] [address] [place], [place] [address] Assigned Surgical Provider 08/17/20 08/16/24 Carie Varela DO [address] [place] [address] Assigned Heart and Vascular Provider 08/17/20 01/19/21 Maylin May NP [address] [place], [place] [id number] Assigned Pediatric Specialist Provider 12/16/20 06/13/22 Marisa Rodrigues, RN Clinic Rigging Helper 01/15/21 02/26/21 Vilma Long MD [address] [place] [address] Assigned Heart and Vascular Provider 01/20/21 07/20/21 Ysameen Pendleton [facility] [address] [place], [place] [address] Pharmacist Pharmacist 06/04/21 01/15/22 Cole George LISW Lead Rigging Helper 06/13/21 10/07/21 Fletcher Up Community Health Worker 06/13/21 09/12/21 Bautista Casey MD [address] [place] [address] Assigned Heart and Vascular Provider 07/21/21 01/16/23 Jasmyn Oliver CHW Community Health Worker 09/13/21 10/07/21 Yasmeen Pendleton [facility] [address] [place], [place] [address] Assigned MTM Pharmacist 03/22/22 01/02/23 documented as of this encounter
--- OUTSIDE RECORDS SUMMARY | 2025-09-16 12:08 | XMS_ITS | Encounter Summary ---
Author Organization [place] Address [address] [facility] [place] [address] Care Team Providers Care Digital Asset Manager Name Role Phone Julito Banuelos MD Primary Care Provider [phone] Unavailable Unavailable Susannah Blankenship [facility] Unavailable [phone] Carolyn Huynh [facility] Unavailable [phone] Vika Kevin APRN [facility] Unavailable + Marilyn Willard MD Unavailable [phone] Maylin May NP Unavailable [phone] Vilma Long MD Unavailable + [phone] Yasmeen Pendleton [facility] Unavailable [phone] Cole George Unavailable Fletcher Russell Unavailable Unavailable Bautista Casey MD Unavailable [phone] Jasmyn Oliver Unavailable [phone] Vika Kevin APRN [facility] Primary Care Prov ider Vika Kevin APRN [facility] Primary Care Prov ider Yasmeen Pendleton [facility] Unavailable Vika Kevin APRN IRON BENDER Primary Care Prov ider Encounter Details Date Type Department Care Team (Late st Contact Info) Description 03/18/2021 MyC Medical Advice [address] [place] [address] Susannah Blankenship, [facility] [address] [facility] [address] [place] [address] Social History Tobacco Use Types Packs/Day Years [...] on file Legal Sex Female 3:22 AM PHONE REPRESENTATIVE Gender Identity Not on file Sexual [...] Depression Total Score: 10 020 9:30 AM PHONE REPRESENTATIVE documented as of this encounter Care Teams Digital Asset Manager Relationship Specialty Start Date End Date Julito Banuelos MD [address] [place] [address]182 PCP - General Family Practice 09/12/15 09/23/21 Vika Kevin APRN IRON BENDER [address] [place] [address]642 PCP - General Nurse Practitioner - Family 09/24/21 03/05/22 Vika Kevin APRN IRON BENDER [address] [place] [address] PCP - General Nurse Practitioner - Family 03/18/22 06/18/22 Vika Kevin APRN IRON BENDER [address] [place] [address] PCP - General Nurse Practitioner - Family 07/24/[address] [place] [address] Product Marketing Manager Dietitian, Registered 04/14/19 Susannah Blankenship, [facility] [address] [facility] [address] [place] [address] Pharmacist Pharmacist 08/08/19 04/15/21 [facility] [address] [place] [address] Pharmacist Pharmacist 06/25/20 04/15/21 Vika Kevin APRN IRON BENDER [address] [place] [address] Assigned PCP 07/22/20 11/16/24 Marilyn Willard MD [address] [facility] [address] [place], [place] [address] Assigned Surgical Provider 08/17/20 08/16/24 Maylin May NP [address] [place] [address] Assigned Pediatric Specialist Provider 12/16/20 06/13/22 Vilma Long MD [address] [place] [address] Assigned Heart and Vascular Provider 01/20/21 07/20/21 [facility] [address] [place] [address] Pharmacist Pharmacist 06/04/21 01/15/22 Cole George LISW Lead Oil Burner Journeyman 06/13/21 10/07/21 Fletcher Up Community Health Worker 06/13/21 09/12/21 Bautista Casey MD [address] [place] [address] Assigned Heart and Vascular Provider 07/21/21 01/16/23 Jasmyn Oliver [facility] Community Health Worker 09/13/21 10/07/21 Yasmeen Pendleton, [facility] [address] [place] [address] Assigned MTM Pharmacist 03/22/22 01/02/23 documented as of this encounter
--- OUTSIDE RECORDS SUMMARY | 2025-09-16 12:08 | XMS_ITS | Encounter Summary ---
Author Organization [place] Address [address] [place] [address] Care Team Providers Care Office Runner Name Role Phone Cortez Lu MD Primary Care Provider [phone] Niko Resendiz MD Primary Care Provider Carlie Mac MD Primary Care Provide r Angella Mendieta MD Primary Care Provider Julito Banuelos MD Primary Care Provider [phone] Julito Banuelos MD Unavailable Julito Banuelos MD Unavailable Aleshia Henriquez RD Unavailable Unavailable Mary Kay Jones [facility] Unavailable Unavailable Susannah Blankenship [facility] Unavailable [phone] Carolyn Huynh [facility] Unavailable [phone] Vika Kevin APRN LOAN REPRESENTATIVE Unavailable + Marilyn Willard MD Unavailable [phone] Carie Varela DO Unavailable +[phone] Maylin May NP Unavailable [phone] Marisa Rodrigues RN Unavailable Unavailable Vilma Long MD Unavailable + [phone] Yasmeen Pendleton [facility] Unavailable + [phone] Cole George Unavailable Fletcher Russell Unavailable Unavailable Bautista Casey MD Unavailable [phone] TatyanaJasmyn anand [facility] Unavailable [phone] Vika Kevin APRN [facility] Primary Care Prov ider Vika Kevin APRN [facility] Primary Care Prov ider Yasmeen Pendleton [facility] Unavailable + [phone] [facility] Primary Care Prov ider Encounter Details Date Type Department Care Team (Late st Contact Info) Description 12/23/2013 Office Visit-[facility] Heart [facility] [address] 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 - Hyperlipidemia mixed, 272.2 [...] daily 10. Nasacort AQ 55 mcg Aerosol, [place], Take as Directed 11. Plavix 75 mg [...] pleasure of seeing Marialuisa Cosby at the [facility].She is a 73-year-old white female with a history of coronary artery disease, hypertension, diabetes, dyslipidemia, and asthma. She is here today to review her recent event monitor. Her cardiovascular history includes hypertension, diabetes, and dyslipidemia. In December 2012 while visiting in [place], she had a non-ST elevation myocardial infarction and underwent an angiogram withPCI to the proximal and mid circumflex. LV function has been normal by echocardiogram. Apparently, that uniform force captain recommended lifelong Plavix. She established care here [...] and two episodes of tachycardia in the archeology professor hours of December 09, 2013. Maximum heart [...] Illnesses: CAD, s/p VA Surgeries/Procedures - General: hysterectomy, tonsillectomy Cardiac/Vasc Procedures-Invasive: left heart cath 12/2012 ([place]) Cardiology Procedures-NonInvasive: echocardiogram Jun 2007, myocardial perfusion (Nuc) Jun 2007, echo 12/2012 ([place]), stress echo February 2013 Cardiac Cath Results: 12/2012 [place] Resolute NELIA to the mid and prox [...] - lives with ; Place of - [place]; REVIEW OF SYSTEMS GENERAL feeling much better [...] COVID-19 12/04/2020 12/04/2020 12/05/2020 6:04 PM PAINT MIXER MACHINE documented as of this encounter Care Teams Office Runner Relationship Specialty Start Date End Date Cortez Lu MD XXX RETIRED XXX [address] [place] [phone] PCP - General 12/10/01 01/10/14 Niko Resendiz MD [address] [place] [address] PCP - General Internal Medicine 01/11/14 01/29/14 Carlie Mac MD [address] [place] [address] PCP - General Pediatrics 01/30/14 07/17/15 Angella Mendieta MD [address] [place] [address]329 PCP - General Family Practice 07/18/15 09/11/15 Julito Banuelos MD [address] [place] [address] [phone] PCP - General Family Practice 09/12/15 09/23/21 Julito Banuelos MD [address] [place] [address] 10982 PCP - Assigned PCP 02/17/16 12/28/18 Vika Kevin APRN LOAN REPRESENTATIVE [address] [place] [address] PCP - General Nurse Practitioner - Family 09/24/21 03/05/22 Vika Kevin APRN LOAN REPRESENTATIVE [address] [place] [address] PCP - General Nurse Practitioner - Family 03/18/22 06/18/22 Vika Kevin APRN LOAN REPRESENTATIVE [address] [place] [address] [id number] PCP - General Nurse Practitioner - Family 07/24/22 Julito Banuelos MD [address] [place] [address] 938472 Assigned PCP 02/17/16 07/21/[address] [place] [address] Airborne Electronics Analyst Dietitian, Registered 04/14/19 Mary Kay Jones, [facility] Pharmacist 08/01/19 04/20/20 [facility] [address] [place] [address] [address] [place], [place] 674265 Pharmacist Pharmacist 08/08/19 04/15/21 Carolyn Huynh [facility] [address] [place] [address] Pharmacist Pharmacist 06/25/20 04/15/21 Vika Kevin APRN LOAN REPRESENTATIVE [address] [place] [address] [phone] Assigned PCP 07/22/20 11/16/24 Marilyn Willard MD [address] [place] [address] [address] [place], [place] 485135 Assigned Surgical Provider 08/17/20 08/16/24 Carie Varela DO [address] [place] [address] Assigned Heart and Vascular Provider 08/17/20 01/19/21 Maylin May NP [address] [place] [address] Assigned Pediatric Specialist Provider 12/16/20 06/13/22 Marisa Rodrigues, RN Clinic Textile Machine Operator 01/15/21 02/26/21 Vilma Long MD [address] [place] [address] Assigned Heart and Vascular Provider 01/20/21 07/20/21 [facility] [address] [place] [address] [phone] Pharmacist Pharmacist 06/04/21 01/15/22 Cole George LISW Lead Textile Machine Operator 06/13/21 10/07/21 Fletcher Up Community Health Worker 06/13/21 09/12/21 Bautista Casey MD [address] [place] [address] Assigned Heart and Vascular Provider 07/21/21 01/16/23 Jasmyn Oliver CHW Community Health Worker 09/13/21 10/07/21 Yasmeen Pendleton [facility] [address] [place] [address] Assigned MTM Pharmacist 03/22/22 01/02/23 documented as of this encounter
--- OUTSIDE RECORDS SUMMARY | 2025-09-16 12:09 | XMS_ITS | Encounter Summary ---
Author Organization [place] Address [address] [facility] [place] [address] Care Team Providers Care Events Assistant Name Role Phone Andrew Lu MD Primary Care Provider [phone] Niko Resendiz MD Primary Care Provider Carlie Mac MD Primary Care Provide r Angella Mendieta MD Primary Care Provider Julito Banuelos MD Primary Care Provider [phone] Julito Banuelos MD Unavailable Julito Banuelos MD Unavailable Aleshia Henriquez RD Unavailable Unavailable Mary Kay Jones [facility] Unavailable Unavailable Susannah Blankenship [facility] Unavailable [phone] Carolyn Huynh [facility] Unavailable [phone] Vika Kevin APRN RECONNAISSANCE CREWMEMBER Unavailable + Marilyn Willard MD Unavailable [phone] Carie Varela DO Unavailable [phone] Maylin May NP Unavailable [phone] Marisa Rodrigues RN Unavailable Unavailable Vilma Long MD Unavailable + [phone] Yasmeen Pendleton [facility] Unavailable + [phone] Cole George Unavailable Fletcher Russell Unavailable Unavailable Bautista Casey MD Unavailable [phone] DemetriusJasmyn wright [facility] Unavailable [phone] Vika [facility] Primary Care Prov ider Vika Kevin APRN [facility] Primary Care Prov ider Yasmeen Pendleton [facility] Unavailable [phone] Vika Kvein [facility] Primary Care Prov ider Reason for Visit * Reason Onset Date Comments UTI 08/24/2013 Encounter Details Date Type Department Care Team (Late st Contact Info) Description 08/24/2013 MyC Medical Advice [address] [address] Andrew Lu MD XXX RETIRED XXX [address] [place] [address] UTI Social History Tobacco Use Types [...] on file Legal Sex Female 3:22 AM NATURALIST Gender Identity Not on file Sexual Orientation [...] Out COVID-19 12/04/2020 12/04/2020 12/05/2020 6:04 PM NATURALIST documented as of this encounter Care Teams Events Assistant Relationship Specialty Start Date End Date Andrew Lu MD XXX RETIRED XXX [address] [place] [phone] PCP - General 12/10/01 01/10/14 Niko Resendiz MD [address] [place] [address] PCP - General Internal Medicine 01/11/14 01/29/14 Carlie Mac MD [address] [place] [address] PCP - General Pediatrics 01/30/14 07/17/15 Angella Mendieta MD [address] [place] [address] PCP - General Family Practice 07/18/15 09/11/15 Julito Banuelos MD [address] [place] [address]75 PCP - General Family Practice 09/12/15 09/23/21 Julito Banuelos MD [address] [place] [address]508 PCP - Assigned PCP 02/17/16 12/28/18 Vika Kevin APRN RECONNAISSANCE CREWMEMBER [address] [place] [address]404 PCP - General Nurse Practitioner - Family 09/24/21 03/05/22 Vika Kevin APRN RECONNAISSANCE CREWMEMBER [address] [place] [address]13 PCP - General Nurse Practitioner - Family 03/18/22 06/18/22 Vika Kevin APRN RECONNAISSANCE CREWMEMBER [address] [place] [address] 742142 PCP - General Nurse Practitioner - Family 07/24/22 Julito Banuelos MD [address] [place] [address] 422852 Assigned PCP 02/17/16 07/21/[address] [place] [address] 025[address] Cable Reeler Dietitian, Registered 04/14/19 Mary Kay Jones, [facility] Pharmacist 08/01/19 04/20/20 Susannah Blankenship, [facility] [address] [place] [address] [address] [place], [place] 914125 Pharmacist Pharmacist 08/08/19 04/15/21 Carolyn Huynh, [facility] [address] [place], [place] 228797 Pharmacist Pharmacist 06/25/20 04/15/21 Vika Kevin APRN RECONNAISSANCE CREWMEMBER [address] [place] [address] 314462 Assigned PCP 07/22/20 11/16/24 Marilyn Willard MD [address] [place] [address] [address] [place], [place] [phone] Assigned Surgical Provider 08/17/20 08/16/24 Carie Varela DO [address] [place] [address] Assigned Heart and Vascular Provider 08/17/20 01/19/21 Maylin May NP [address] [place] [address] Assigned Pediatric Specialist Provider 12/16/20 06/13/22 Marisa Rodrigues, RN Clinic Social Insurance Analyst 01/15/21 02/26/21 Vilma Long MD [address] [place] [address] Assigned Heart and Vascular Provider 01/20/21 07/20/21 Yasmeen Pendleton [facility] [address] [place] [address] 095485 Pharmacist Pharmacist 06/04/21 01/15/22 Cole George LISW Lead Social Insurance Analyst 06/13/21 10/07/21 Fletcher Up Community Health Worker 06/13/21 09/12/21 Bautista Casey MD [address] [place] [address] Assigned Heart and Vascular Provider 07/21/21 01/16/23 Jasmyn Oliver CHW Community Health Worker 09/13/21 10/07/21 Yasmeen Pendleton [facility] [address] [place] [address] [phone] Assigned MTM Pharmacist 03/22/22 01/02/23 documented as of this encounter
--- OUTSIDE RECORDS SUMMARY | 2025-09-16 12:09 | XMS_ITS | Encounter Summary ---
Author Organization [place] Address [address] [facility] [place] [address] Care Team Providers Care Senior Research Associate Name Role Phone Julito Banuelos MD Primary Care Provider [phone] Unavailable Unavailable Susannah Blankenship [facility] Unavailable [phone] Carolyn Huynh [facility] Unavailable [phone] Vika Kevin APRN [facility] Unavailable + Marilyn Willard MD Unavailable [phone] Carie Varela DO Unavailable [phone] Maylin May NP Unavailable [phone] Marisa Hernandez RN Unavailable Unavailable Vilma Long MD Unavailable + [phone] Yasmeen Pendleton [facility] Unavailable Cole George Unavailable Fletcher Russell Unavailable Unavailable Bautista Casey MD Unavailable [phone] Jasmyn Oliver Unavailable [phone] Vika Kevin APRN [facility] Primary Care Prov ider Vika Kevin APRN [facility] Primary Care Prov ider FrantzYasmeen barreto [facility] Unavailable [phone] Vika Kevin RN [address] [facility] [facility] Primary Care Prov ider Encounter Details Date Type Department Care Team (Late st Contact Info) Description 08/14/2020 MyC Medical Advice [address] [place] [address] Susannah Blankenship, [facility] [address] [facility] [address] [place] [address] Social History Tobacco Use Types [...] file Legal Sex Female 3:22 AM DIRECTOR PRODUCT DEVELOPMENT Gender Identity Not on file Sexual Orientation [...] COVID-19 12/04/2020 12/04/2020 12/05/2020 6:04 PM DIRECTOR PRODUCT DEVELOPMENT Assessment Noted Time PHQ-9 Depression Total Score: 020 1:07 PM CDT documented as of this encounter Care Teams Senior Research Associate Relationship Specialty Start Date End Date Julito Banuelos MD [address] [place], [place] 038242 PCP - General Family Practice 09/12/15 09/23/21 Vika Kevin, JAIME SEX WORKER OR [employer] [address] [place] [address] PCP - General Nurse Practitioner - Family 09/24/21 03/05/22 Vika Kevin APRN SEX WORKER OR [employer] [address] [place] [address]891 PCP - General Nurse Practitioner - Family 03/18/22 06/18/22 Vika Kevin APRN SEX WORKER OR [employer] [address] [place] [address] PCP - General Nurse Practitioner - Family 07/24/[address] [place] [address] Tax Economist Dietitian, Registered 04/14/19 Susannah Blankenship, [facility] [address] [facility] [address] [place] [address] Pharmacist Pharmacist 08/08/19 04/15/21 Carolyn Huynh [facility] [address] [place] [address] Pharmacist Pharmacist 06/25/20 04/15/21 Vika Kevin, JAIME SEX WORKER OR [employer] [address] [place] [address] 333562 Assigned PCP 07/22/20 11/16/24 Marilyn Willard MD [address] [facility] [address] [place] [address] Assigned Surgical Provider 08/17/20 08/16/24 Carie Varela DO [address] [place] [address] Assigned Heart and Vascular Provider 08/17/20 01/19/21 Maylin May NP [address] [place] [address] Assigned Pediatric Specialist Provider 12/16/20 06/13/22 Marisa Rodrigues, RN Clinic Product Analyst 01/15/21 02/26/21 Vilma Long MD [address] [place] [address] Assigned Heart and Vascular Provider 01/20/21 07/20/21 [facility] [address] [place] [address] Pharmacist Pharmacist 06/04/21 01/15/22 Cole George LISW Lead Product Analyst 06/13/21 10/07/21 Fletcher Up Community Health Worker 06/13/21 09/12/21 Bautista Casey MD [address] [place] [address] Assigned Heart and Vascular Provider 07/21/21 01/16/23 Jasmyn Oliver CHW Community Health Worker 09/13/21 10/07/21 [facility] [address] [place] [address] Assigned MTM Pharmacist 03/22/22 01/02/23 documented as of this encounter
--- OUTSIDE RECORDS SUMMARY | 2025-09-16 12:09 | XMS_ITS | Encounter Summary ---
Author Organization [place] Address [address] [facility] [place] [address] Care Team Providers Care Classification Officer Name Role Phone Carlie Wang MD Primary Care Provide r Angella Mendieta MD Primary Care Provider Julito Banuelos MD Primary Care Provider [phone] Julito Banuelos MD Unavailable Julito Banuelos MD Unavailable Aleshia Henriquez RD Unavailable Unavailable Mary Kay Jones [facility] Unavailable Unavailable Susannah Blankenship [facility] Unavailable [phone] Carolyn Huynh [facility] Unavailable Vika Kevin APRN FUNCTIONAL ARCHITECT Unavailable + Marilyn Willard MD Unavailable Carie Varela DO Unavailable Maylin May NP Unavailable [phone] Marisa Hernandez RN Unavailable Unavailable Vilma Long MD Unavailable Yasmeen Pendleton [facility] Unavailable Cole George Unavailable Fletcher Russell Unavailable Unavailable Ip, Bautista Bell MD Unavailable [phone] Jasmyn Oliver [facility] Unavailable [phone] Vika Kevin APRN [facility] Primary Care Prov ider Vika Kevin APRN [facility] Primary Care Prov ider Yasmeen Pendleton [facility] Unavailable + [phone] Vika Kevin APRN [facility] Primary Care Prov ider Encounter Details Date Type Department Care Team (Late st Contact Info) Description 03/10/2014 Office Visit-[facility] Heart [address] [place] [address] Jaimee Donald MD HEART [place] [id number] Social History Tobacco Use Types Packs/Day Years Used Date Smoking Tobacco: Former Cigarettes 0.3 15 0 10/26/1961 - 10/26/1976 Smokeless Tobacco: Never Alcohol Use Standard Drinks/Week Comments Yes 0 (1 standard drink = 0.6 oz pur e alcohol) 1-2 glasses of wine weekly Comments No Sex and Gender Information Value Date Recorded Sex Assigned at Not on file Legal Sex Female 3:22 AM RESISTOR WINDER Gender Identity Not on file Sexual Orientation Not on file Occupation Industry Job Start Date Job End Date Not on file Not on file Not on file Not on file documented as of this encounter Progress Notes * Jaimee Donald MD - 03/13/2014 3:02 PM CDT Progress Note Created by: Jaimee Donald M.D. [id number] DATE: 03/10/2014 MARIALUISA COSBY DATE OF : 1940 AGE: [age] years old Referring Physician: CARLIE WANG Referring Clinic: [facility] CURRENT DIAGNOSES 1. Diabetes Pmpnsptv-Wqy-Sejwupy Dependent, 250.00 2. - Hyperlipidemia mixed, 272.2 3. - Hypertension, 401.1 4. - CAD, 414.00 5. Palpitations, 785.1 ALLERGIES lisinopril Nitrofurantoin Nitrofurantoin Macrocrystal pramipexole Di-HCl Sulfasalazine tolterodine tartrate zolpidem tartrate MEDICATIONS (prior to changes made today) 1. Asmanex Twisthaler 220 mcg (120 doses) Aerosol Powdr [facility] ActivIn, Take as Directed 2. aspirin, buffered [...] daily 10. Nasacort AQ 55 mcg Aerosol, [place], Take as Directed 11. Plavix 75 mg [...] artery disease having had a non-ST elevation [place] in [place] in December 2012with PCI to the proximal mid circumflex. Apparently the child care nurse recommended lifelong Plavix. She has hypertension, diabetes [...] echo February 2013 Cardiac Cath Results: 12/2012 [place] Resolute NELIA to the mid and prox [...] - lives with ; Place of - [place]; REVIEW OF SYSTEMS GENERAL feeling spacey lately [...] Out COVID-19 12/04/2020 12/04/2020 12/05/2020 6:04 PM RESISTOR WINDER documented as of this encounter Care Teams Classification Officer Relationship Specialty Start Date End Date Carlie Wang MD [address] [place] [address] PCP - General Pediatrics 01/30/14 07/17/15 Angella Mendieta MD [address] [place] [address] [phone] PCP - General Family Practice 07/18/15 09/11/15 Julito Banuelos MD [address] [place] [address] 31839 PCP - General Family Practice 09/12/15 09/23/21 Julito Banuelos MD [address] [place] [address] 88004 PCP - Assigned PCP 02/17/16 12/28/18 Vika Kevin APRN FUNCTIONAL ARCHITECT [address] [place] [address] 584852 PCP - General Nurse Practitioner - Family 09/24/21 03/05/22 Vika Kevin APRN FUNCTIONAL ARCHITECT [address] [place] [address]41 PCP - General Nurse Practitioner - Family 03/18/22 06/18/22 Vika Kevin APRN FUNCTIONAL ARCHITECT [address] [place] [address] 364692 PCP - General Nurse Practitioner - Family 07/24/22 Julito Banuelos MD [address] [place] [address] 507192 Assigned PCP 02/17/16 07/21/[address] [place] [address] 39836 Utility Mechanic Supervisor Dietitian, Registered 04/14/19 Mary Kay Jones, [facility] Pharmacist 08/01/19 04/20/20 Susannah Blankenship, [facility] [address] [place] [address] [address] [place], [place] 419575 Pharmacist Pharmacist 08/08/19 04/15/21 Carolyn Huynh [facility] [address] [place], [place] [phone] Pharmacist Pharmacist 06/25/20 04/15/21 Vika Kevin APRN FUNCTIONAL ARCHITECT [address] [place] [address] 178332 Assigned PCP 07/22/20 11/16/24 Marilyn Willard MD [address] [address] Assigned Surgical Provider 08/17/20 08/16/24 Carie Varela DO [address] [place] [address] Assigned Heart and Vascular Provider 08/17/20 01/19/21 Maylin May, JENNY [address] [place] [address] Assigned Pediatric Specialist Provider 12/16/20 06/13/22 Marisa Rodrigues, RN Clinic Stakes Player 01/15/21 02/26/21 Vilma Long MD [address] [place] [address] Assigned Heart and Vascular Provider 01/20/21 07/20/21 Yasmeen Pendleton [facility] [address] [place] [address] 994365 Pharmacist Pharmacist 06/04/21 01/15/22 Cole George LISW Lead Stakes Player 06/13/21 10/07/21 Fletcher Up Community Health Worker 06/13/21 09/12/21 Bautista Casey MD [address] [place] [address] Assigned Heart and Vascular Provider 07/21/21 01/16/23 Jasmyn Oliver CHW Community Health Worker 09/13/21 10/07/21 Yasmeen Pendleton [facility] [address] [place] [address] Assigned MTM Pharmacist 03/22/22 01/02/23 documented as of this encounter
--- OUTSIDE RECORDS SUMMARY | 2025-09-16 12:09 | XMS_ITS | Encounter Summary ---
Author Organization [place] Address [address] [facility] [place] [address] Care Team Providers Care Medical Office Supervisor Name Role Phone Julito Banuelos MD Primary Care Provider [phone] Unavailable Unavailable Susannah Blankenship [facility] Unavailable [phone] Carolyn Huynh [facility] Unavailable [phone] Vika Kevin APRN [facility] Unavailable + Marilyn Willard MD Unavailable [phone] Carie Varela DO Unavailable [phone] Maylin May NP Unavailable [phone] Marisa Hernandez RN Unavailable Unavailable Vilma Long MD Unavailable + [phone] Yasmeen Pendleton [facility] Unavailable [phone] Cole George Unavailable Fletcher Russell Unavailable Unavailable Bautista Casey MD Unavailable [phone] Jasmyn Oliver Unavailable [phone] Vika Kevin APRN [facility] Primary Care Prov ider Vika Kevin APRN [facility] Primary Care Prov ider Yasmeen Pendleton [facility] Unavailable [phone] Vika Kevin APRN SENIOR FRONT END ENGINEER Primary Care Prov ider Encounter Details Date Type Department Care Team (Late st Contact Info) Description 12/10/2020 MyC Medical Advice [facility] [address] [facility] [address] [place] [address] [facility] [address] [place] [address] Social History Tobacco Use Types [...] on file Legal Sex Female 3:22 AM HONEY PRODUCER Gender Identity Not on file Sexual Orientation Not on file Occupation Industry Job Start Date Job End Date Not on file Not on file Not on file Not on file COVID-19 Exposure Response Date Recorded In the last month, have you been in contact with someone who was confirmed or suspected to have Coronavirus / COVID-19? No / Unsure 12/11/2020 3:56 PM HONEY PRODUCER documented as of this encounter Plan of Treatment Not on file documented as of this encounter Visit Diagnoses Not on filedocumented in this encounter Additional Health Concerns Assessment Noted Time PHQ-9 Depression Total Score: 10 020 9:30 AM HONEY PRODUCER documented as of this encounter Care Teams Medical Office Supervisor Relationship Specialty Start Date End Date Julito Banuelos MD [address] [place] [id number] PCP - General Family Practice 09/12/15 09/23/21 Vika Kevin APRN SENIOR FRONT END ENGINEER [address] [place] [address] 21796 PCP - General Nurse Practitioner - Family 09/24/21 03/05/22 Vika Kevin APRN SENIOR FRONT END ENGINEER [address] [place] [address] 99132 PCP - General Nurse Practitioner - Family 03/18/22 06/18/22 Vika Kevin, JAIME SENIOR FRONT END ENGINEER [address] [place] [address]97 PCP - General Nurse Practitioner - Family 07/24/[address] [place] [address] Grape Crusher Dietitian, Registered 04/14/19 Susannah Blankenship, [facility] [address] [place] [address] [address] [place] [address] Pharmacist Pharmacist 08/08/19 04/15/21 Carolyn Huynh [facility] [address] [place] [address] Pharmacist Pharmacist 06/25/20 04/15/21 Vika Kevin, JAIME SENIOR FRONT END ENGINEER [address] [place] [address] Assigned PCP 07/22/20 11/16/24 Marilyn Willard MD [address] [place] [address] [address] [place], [place] [id number] Assigned Surgical Provider 08/17/20 08/16/24 Carie Varela DO [address] [place] [address] Assigned Heart and Vascular Provider 08/17/20 01/19/21 Maylin May NP [address] [place] [address] Assigned Pediatric Specialist Provider 12/16/20 06/13/22 Marisa Rodrigues, RN Clinic Tin Stacker 01/15/21 02/26/21 Vilma Long MD [address] [place] [address] Assigned Heart and Vascular Provider 01/20/21 07/20/21 [facility] [address] [place] [address] [phone] Pharmacist Pharmacist 06/04/21 01/15/22 Cole George LISW Lead Tin Stacker 06/13/21 10/07/21 Fletcher Up Community Health Worker 06/13/21 09/12/21 Bautista Casey MD [address] [place] [address] Assigned Heart and Vascular Provider 07/21/21 01/16/23 Jasmyn Oliver CHW Community Health Worker 09/13/21 10/07/21 Yasmeen Pendleton [facility] [address] [place] [address] [id number] Assigned MTM Pharmacist 03/22/22 01/02/23 documented as of this encounter
--- OUTSIDE RECORDS SUMMARY | 2025-09-16 12:09 | XMS_ITS | Encounter Summary ---
Author Organization [place] Address [address] [facility] [place] [address] Care Team Providers Care Acquisition Lead Name Role Phone Cortez Lu MD Primary Care Provider [phone] Niko Resendiz MD Primary Care Provider Carlie Mac MD Primary Care Provide r Angella Mendieta MD Primary Care Provider Julito Banuelos MD Primary Care Provider [phone] Julito Banuelos MD Unavailable Julito Banuelos MD Unavailable Aleshia Henriquez RD Unavailable Unavailable Mary Kay Jones [facility] Unavailable Unavailable Susannah Blankenship [facility] Unavailable [phone] Carolyn Huynh [facility] Unavailable [phone] Vika Kevin APRN ACCOUNTS PAYABLES CLERK Unavailable + Marilyn Willard MD Unavailable [phone] Carie Varela DO Unavailable [phone] Maylin May NP Unavailable [phone] Marisa Rodrigues RN Unavailable Unavailable Vilma Long MD Unavailable + [phone] Yasmeen Pendleton [facility] Unavailable + [phone] Cole George Unavailable Fletcher Russell Unavailable Unavailable Bautista MD Unavailable Jasmyn Oliver [facility] Unavailable [phone] Vika Kevin APRN [facility] Primary Care Prov ider Vika Kevin APRN [facility] Primary Care Prov ider Yasmeen Pendleton [facility] Unavailable [phone] Vika Kevin [facility] Primary Care Prov ider Encounter Details Date Type Department Care Team (Late st Contact Info) Description 09/16/2013 Office Visit-[facility] [address] [place] [address] Reji Davis MD [address] [place] [address] Social History Tobacco Use Types [...] file Legal 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 Diabetes Qhwfeqrm-Kmg-Bszmuey Dependent, 250.00 2. - Hyperlipidemia mixed, 272.2 [...] daily 12. Nasacort AQ 55 mcg Aerosol, [place], Take as Directed 13. Plavix 75 mg [...] mid circumflex artery in December,, while at [facility] in [place], [place]. This was following a presentation for a zzm-WP-wnhexie elevation GA. Since I saw the patient last she was seen in the [facility] ER with overall generalized weakness and felt to be potentially dehydrated in the setting of an infection. She has otherwise done well from a cardiovascular standpoint and has had no recurrent episodes of fatigue. She has had no recurrent anginal symptoms, which are chest discomfort and chest heaviness. Marialuisa plans to travel back to [place] for three months after the holidays. She has questions as to whether she can exercise given her coronary artery disease. Finally, I talked to Marialuisa about this previously, that her analyst in [place] had recommended that she remain on lifelong [...] February 2013 Cardiac Cath Results: 12/2012 [facility] to the mid and prox [...] - lives with and been living in [place] for 3 months; Place of - [place]; REVIEW OF SYSTEMS GENERAL frequent uti's otherwise [...] [place] but they can get bad in [place] [...] left circumflex artery following presentation for a djd-LM-rlberlc elevation GA. 3. 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 documented as of this encounter Care Teams Acquisition Lead Relationship Specialty Start Date End Date Cortez Lu MD XXX RETIRED XXX [address] [place] [phone] PCP - General 12/10/01 01/10/14 Niko Resendiz MD [address] [place] [address] PCP - General Internal Medicine 01/11/14 01/29/14 Carlie Mac MD [address] [place] [address] PCP - General Pediatrics 01/30/14 07/17/15 Angella Mendieta MD [address] [place] [address] 153132 PCP - General Family Practice 07/18/15 09/11/15 Julito Banuelos MD [address] [place] [address] [phone] PCP - General Family Practice 09/12/15 09/23/21 Julito Banuelos MD [address] [place] [address] [id number] PCP - Assigned PCP 02/17/16 12/28/18 Vika Kevin APRN ACCOUNTS PAYABLES CLERK [address] [place] [address]34 PCP - General Nurse Practitioner - Family 09/24/21 03/05/22 Vika Kevin APRN ACCOUNTS PAYABLES CLERK [address] [place] [address] 24171 PCP - General Nurse Practitioner - Family 03/18/22 06/18/22 Vika Kevin APRN ACCOUNTS PAYABLES CLERK [address] [place] [address] [phone] PCP - General Nurse Practitioner - Family 07/24/22 Julito Banuelos MD [address] [place] [address] [id number] Assigned PCP 02/17/16 07/21/[address] [place] [address] Electric Golf Cart Repairer Dietitian, Registered 04/14/19 Mary Kay Jones, [facility] Pharmacist 08/01/19 04/20/20 [facility] [address] [place] [address] [address] [place], [place] [phone] Pharmacist Pharmacist 08/08/19 04/15/21 Carolyn Huynh [facility] [address] [place] [address] Pharmacist Pharmacist 06/25/20 04/15/21 Vika Kevin APRN CNP [address] [place] [address] [phone] Assigned PCP 07/22/20 11/16/24 Marilyn Willard MD [address] [place] [address] [address] [place], [place] [phone] Assigned Surgical Provider 08/17/20 08/16/24 Carie Varela DO [address] [place] [address] Assigned Heart and Vascular Provider 08/17/20 01/19/21 Maylin May NP [address] [place] [address] Assigned Pediatric Specialist Provider 12/16/20 06/13/22 Marisa Rodrigues, RN Clinic Boat Outboard Engine Mechanic 01/15/21 02/26/21 Vilma Long MD [address] [place] [address] Assigned Heart and Vascular Provider 01/20/21 07/20/21 [facility] [address] [place], [place] [phone] Pharmacist Pharmacist 06/04/21 01/15/22 Cole George LISW Lead Boat Outboard Engine Mechanic 06/13/21 10/07/21 Fletcher Up Community Health Worker 06/13/21 09/12/21 Bautista Casey MD [address] [place] [address] Assigned Heart and Vascular Provider 07/21/21 01/16/23 Jasmyn Oliver CHW Community Health Worker 09/13/21 10/07/21 [facility] [address] [place] [address] Assigned MTM Pharmacist 03/22/22 01/02/23 documented as of this encounter
--- NOTE | 2025-09-16 12:22 | CRLHL7_ITS ---
For Patients: As a result of the Cures Act, medical imaging exams and procedure reports are released immediately into your electronic medical record. You may view this report before your referring provider. If you have questions, please contact your health care provider. INDICATION: Wrist Injury TECHNIQUE: Wrist radiograph 3 views right COMPARISON: None FINDINGS: Bone: No acute fractures or aggressive bone lesions are identified. Moderate diffuse osteopenia is present. Joint: Mild osteoarthritis of the triscaphe joint is noted. Soft tissue: Unremarkable. No radiopaque foreign bodies are seen. Mild vascular calcifications are seen. IMPRESSION: 1. No acute osseous injuries are noted. Dictated by Tesfaye Tang MD @ 09/16/2025 1:13:06 PM Dictated by: Tesfaye Tang MD @ 09/16/2025 13:13:10 (Electronically Signed)
--- NOTE | 2025-09-16 12:22 | CRLHL7_ITS ---
For Patients: As a result of the Cures Act, medical imaging exams and procedure reports are released immediately into your electronic medical record. You may view this report before your referring provider. If you have questions, please contact your health care provider. Indication: Injury. Patient has dementia. Bruising on top of hand. Technique: Right hand 3 views. Comparison: None. Findings: Bones: Diffuse osseous demineralization limits sensitivity for subtle nondisplaced fracture. Within these limitations, no acute fracture or dislocation. Joint spaces: Diffuse IP joint space narrowing and juxta-articular osteophytosis, worse at the DIP joints of the 2nd, 3rd and 5th fingers. Mild 1st CMC and STT joint space narrowing and juxta-articular osteophytosis. Soft tissues: Vascular calcifications. No radiographic evidence of a foreign body. Impression: 1. Diffuse osseous demineralization limits sensitivity for subtle nondisplaced fracture. Within these limitations, no acute fracture or dislocation. If clinical symptoms persist, consider repeat radiographs in 10-14 days. 2. Degenerative changes of the IP joints, worse at the DIP joints of the 2nd, 3rd and 5th fingers. Dictated by Lyssa Quintana MD @ 09/16/2025 2:02:46 PM (Electronically Signed)
--- NOTE | 2025-09-16 12:23 | ED.GENADULT ---
HPI - General Adult General Chief complaint: Extremity Pain/Injury, Upper Stated complaint: Fell and injured right hand Time Seen by Provider: 09/16/25 12:11 History of Present Illness HPI narrative: 85-year-old female with dementia living at [facility] fell injuring her right dorsum of her hand and wrist, there is some ecchymotic area and bruising. She is using her hand fully. Does not appear to be in pain. Unable to give a history. This is due to her cognitive condition. Her family is here with her : they are caring and attentive. Patient denies other pain, she has been moving well no other injuries have been noted. Related Data Home Medications ?Medication ?Instructions ?Recorded ?Confirmed acetaminophen 500 mg tablet 1,000 mg PO Q6H PRN pain 06/29/22 06/15/25 (Acetaminophen Extra Strength) albuterol sulfate 90 mcg/actuation 1 puff inhalation Q4H PRN 06/29/22 06/15/25 aerosol inhaler bronchospasm aluminum-mag hydroxide-simethicone 30 ml PO PRN indigestion 06/29/22 200 mg-200 mg-20 mg/5 mL oral susp (Maalox Advanced) ascorbic acid (vitamin C) 1,000 mg 1 g PO BID 06/29/22 06/15/25 tablet aspirin 81 mg tablet,delayed 81 mg PO .QHS 06/29/22 06/15/25 release (John Low Dose Aspirin) atorvastatin 20 mg tablet 20 mg PO DAILY 06/29/22 06/15/25 bisacodyl 10 mg rectal suppository 10 mg MS PRN constipation 06/29/22 cholecalciferol (vitamin D3) 50 2,000 unit PO DAILY 06/29/22 06/15/25 mcg (2,000 unit) tablet (Vitamin D3) fluticasone 113 mcg-salmeterol 14 1 inh inhalation BID 06/29/22 06/15/25 mcg/actuation breath activated powdr fluticasone propionate 50 2 spray intranasal BID 06/29/22 06/15/25 mcg/actuation nasal spray,suspension furosemide 20 mg tablet 10 mg PO DAILY 06/29/22 06/15/25 gabapentin 100 mg capsule 200 mg PO TID 06/29/22 06/29/22 galantamine 8 mg 24 hr 8 mg PO DAILY 06/29/22 06/15/25 capsule,extended release isosorbide mononitrate 60 mg 60 mg PO DAILY 06/29/22 06/29/22 tablet,extended release 24 hr lamotrigine 150 mg tablet 300 mg PO DAILY 06/29/22 06/15/25 levothyroxine 88 mcg tablet 88 mcg PO DAILY 06/29/22 06/15/25 melatonin 3 mg tablet 3 mg PO .qhs 06/29/22 06/15/25 memantine 14 mg capsule 14 mg PO DAILY 06/29/22 06/29/22 sprinkle,extended release 24hr methenamine hippurate 1 gram tablet 1 g PO BID 06/29/22 06/15/25 nitroglycerin 0.4 mg sublingual 0.4 mg sublingual Q5M PRN 06/29/22 06/15/25 tablet polyethylene glycol 3350 17 17 g PO DAILY 06/29/22 06/15/25 gram/dose oral powder (Miralax) sennosides 8.6 mg tablet (senna) 8.6 mg PO DAILY 06/29/22 06/15/25 sertraline 100 mg tablet 100 mg PO DAILY 06/29/22 06/15/25 Previous Rx's ?Medication ?Instructions ?Recorded oseltamivir 75 mg capsule 75 mg PO BID 5 days #10 caps 12/16/24 doxycycline hyclate 100 mg capsule 100 mg PO BID #10 caps 06/15/25 Allergies Allergy/AdvReac Type Severity Reaction Status Date / Time cefdinir Allergy Verified 09/16/25 12:15 cephalexin Allergy Verified 09/16/25 12:15 nitrofurantoin Allergy Verified 09/16/25 12:15 Sulfa (Sulfonamide Allergy Verified 09/16/25 12:15 Antibiotics) Review of Systems Status of ROS: Reports: unobtainable due to medical condition [facility] Medical History Obesity, unspecified ?E66.9 - Obesity, unspecified (ICD-10) Gastro-esophageal reflux disease without esophagitis ?K21.9 - Gastro-esophageal reflux disease without esophagitis (ICD-10) Vitamin deficiency, unspecified ?E56.9 - Vitamin deficiency, unspecified (ICD-10) Vitamin B12 deficiency anemia, unspecified ?D51.9 - Vitamin B12 deficiency anemia, unspecified (ICD-10) Hyperlipidemia, unspecified ?E78.5 - Hyperlipidemia, unspecified (ICD-10) Hypothyroidism, unspecified ?E03.9 - Hypothyroidism, unspecified (ICD-10) Calculus of kidney ?N20.0 - Calculus of kidney (ICD-10) Calculus of gallbladder with acute cholecystitis without obstruction ?K80.00 - Calculus of gallbladder with acute cholecystitis without obstruction (ICD-10) Sensorineural hearing loss, bilateral ?H90.3 - Sensorineural hearing loss, bilateral (ICD-10) Generalized anxiety disorder ?F41.1 - Generalized anxiety disorder (ICD-10) Other idiopathic peripheral autonomic neuropathy ?G90.09 - Other idiopathic peripheral autonomic neuropathy (ICD-10) Restless legs syndrome ?G25.81 - Restless legs syndrome (ICD-10) Immunodeficiency, unspecified ?D84.9 - Immunodeficiency, unspecified (ICD-10) Essential (primary) hypertension ?I10 - Essential (primary) hypertension (ICD-10) Type 2 diabetes mellitus without complications ?E11.9 - Type 2 diabetes mellitus without complications (ICD-10) ST elevation (STEMI) myocardial infarction involving other coronary artery of anterior wall ?I21.09 - ST elevation (STEMI) myocardial infarction involving other coronary artery of anterior wall (ICD-10) Presence of other specified devices ?Z97.8 - Presence of other specified devices (ICD-10) Personal history of (healed) traumatic fracture ?Z87.81 - Personal history of (healed) traumatic fracture (ICD-10) Urinary tract infection, site not specified ?N39.0 - Urinary tract infection, site not specified (ICD-10) Repeated falls ?R29.6 - Repeated falls (ICD-10) Dementia in other diseases classified elsewhere with behavioral disturbance ?F02.81 - Dementia in other diseases classified elsewhere with behavioral disturbance (ICD-10) Pain, unspecified ?R52 - Pain, unspecified (ICD-10) Unspecified urethral stricture, female ?N35.92 - Unspecified urethral stricture, female (ICD-10) Retention of urine, unspecified ?R33.9 - Retention of urine, unspecified (ICD-10) Syncope and collapse ?R55 - Syncope and collapse (ICD-10) Traumatic subdural hemorrhage with loss of consciousness of unspecified duration, subsequent encounter ?S06.5X9D - Traumatic subdural hemorrhage with loss of consciousness of unspecified duration, subsequent encounter (ICD-10) 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, unspecified ?E08.40 - 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, unspecified (ICD-10) Edema, unspecified ?R60.9 - Edema, unspecified (ICD-10) Constipation, unspecified ?K59.00 - Constipation, unspecified (ICD-10) Other specified symptoms and signs involving the digestive system and abdomen ?R19.8 - Other specified symptoms and signs involving the digestive system and abdomen (ICD-10) Alzheimer's disease with late onset ?G30.1 - Alzheimer's disease with late onset (ICD-10) ?F02.80 - Dementia in other diseases classified elsewhere without behavioral disturbance (ICD-10) Surgical History Other specified postprocedural states ?Z98.890 - Other specified postprocedural states (ICD-10) Social History Smoking Status: Never smoker Do you use any of these nicotine containing products: None Second hand tobacco smoke exposure: No How often do you have a drink containing alcohol: never How often do you have six or more drinks on one occasion: Never AUDIT-C Alcohol total score: 0 Non-prescribed substance use: denies use service: No Exam Narrative: Exam Narrative: Objective: Patient is alert not oriented to person or place Vital signs unremarkable Patient is talking easily conversational. Noncyanotic. She has been moving her body fairly well per family She has got ecchymotic area on her right wrist and dorsum of her hand. She seems to have normal flexion extension, pronation supination of the right hand and wrist. There is no open wounds. The dorsum of her hand is swollen with the ecchymotic area as mention. No skin breakdown at this point. Normal strength of her hands that she squeezes her extensor hand. Const: Vital Signs, click to edit/add: Vital Signs - 24 hr 09/16/25 12:06 Temperature 96.8 F L Pulse Rate [Right Pulse Oximeter] 68 Respiratory Rate 18 Blood Pressure [Le ft Upper Arm] 122/68 Pulse Oximetry 98 Oxygen Delivery Me thod Room Air Course Vital Signs Vital signs: Initial Vital Signs Temperature 96.8 F L 09/16/25 12:06 Temperature Source Temporal Artery Scan 09/16/25 12:06 Pulse Rate 68 09/16/25 12:06 Pulse Rhythm Regular 09/16/25 12:06 Pulse Strength 3+ Normal 09/16/25 12:06 Respiratory Rate 18 09/16/25 12:06 Blood Pressure 122/68 09/16/25 12:06 Blood Pressure Mean 86 09/16/25 12:06 Blood Pressure Position Sitting 09/16/25 12:06 Pulse Oximetry 98 09/16/25 12:06 Oxygen Delivery Method Room Air 09/16/25 12:06 Vital Signs Temperature 96.8 F L 09/16/25 12:06 Pulse Rate 68 09/16/25 12:06 Respiratory Rate 18 09/16/25 12:06 Blood Pressure 122/68 09/16/25 12:06 Pulse Oximetry 98 09/16/25 12:06 Oxygen Delivery Method Room Air 09/16/25 12:06 Temperature 96.8 F L 09/16/25 12:06 Pulse Rate 68 09/16/25 12:06 Respiratory Rate 18 09/16/25 12:06 Blood Pressure 122/68 09/16/25 12:06 Pulse Oximetry 98 09/16/25 12:06 Oxygen Delivery Method Room Air 09/16/25 12:06 Medical Decision Making MDM Narrative Medical decision making narrative: 85-year-old female with dementia with right hand and wrist injury. At this point it is ecchymotic and swollen but she is using it fully. Will check an x-ray of her hand and wrist. Likely a wrist cock-up splint might be helpful if there is no obvious fracture. Disposition pending findings. It would be difficult to put a splint on her as I am not sure she would keep this on or certainly could cause more swelling. Will see how the x-rays appear. 12:37 p.m. addendum: The patient's x-ray by my independent read of his her wrist and hand show no obvious fracture. I think protection with a wrist cock-up splint would be appropriate. Ice as able. Tylenol as needed for discomfort. Would recommend recheck in the next few days problems concerns or other concerns difficulty. Will review radiology's over-read as well. Family comfortable plan. Discharge Plan Discharge Clinical Impression: Sprain and strain of wrist Patient Disposition: Home w/ Parent or Adult Condition: Stable Additional Instructions: Wear splint is able, ice 5-10 minutes 3 to 4 times a day if he can, Tylenol as needed for discomfort, follow up with primary care in the next 5-7 days, return sooner problems or concerns. Activity Level: Light activity Discharge Diet: Regular Prescriptions: No Action oseltamivir 75 mg capsule 75 mg PO BID 5 Days Qty: 10 0RF acetaminophen [Acetaminophen Extra Strength] 500 mg tablet 1,000 mg PO Q6H PRN (Reason: pain) Patient Comments: Give 2 tablets every 6 hours for pain albuterol sulfate 90 mcg/actuation HFA aerosol inhaler 1 puff INHALATION Q4H PRN (Reason: bronchospasm) Patient Comments: 1 puff inhale by mouth every 4 hours as needed alum-mag hydroxide-simeth [Maalox Advanced] 200-200-20 mg/5 mL suspension 30 ml PO PRN (Reason: indigestion) Patient Comments: Give 30ml as needed TID aspirin [John Low Dose Aspirin] 81 mg tablet,delayed release (DR/EC) 81 mg PO .QHS Patient Comments: 1 tablet by mouth once a day atorvastatin 20 mg tablet 20 mg PO DAILY bisacodyl 10 mg suppository 10 mg MS PRN (Reason: constipation) Patient Comments: Give 1 suppository rectally as needed fluticasone propionate 50 mcg/actuation spray,suspension 2 spray INTRANASAL BID furosemide 20 mg tablet 10 mg PO DAILY gabapentin 100 mg capsule 200 mg PO TID galantamine 8 mg capsule,ext rel. pellets 24 hr 8 mg PO DAILY ascorbic acid (vitamin C) 1,000 mg tablet 1 g PO BID Patient Comments: 1 tablet by mouth twice a day cholecalciferol (vitamin D3) [Vitamin D3] 50 mcg (2,000 unit) tablet 2,000 unit PO DAILY Patient Comments: 1 tablet by mouth once a day sertraline 100 mg tablet 100 mg PO DAILY fluticasone propion-salmeterol 113-14 mcg/actuation aerosol powdr breath activated 1 inh INHALATION BID isosorbide mononitrate 60 mg tablet extended release 24 hr 60 mg PO DAILY lamotrigine 150 mg tablet 300 mg PO DAILY levothyroxine 88 mcg tablet 88 mcg PO DAILY melatonin 3 mg tablet 3 mg PO .qhs Patient Comments: 1 tablet by mouth at bedtime memantine 14 mg capsule,sprinkle,ER 24hr 14 mg PO DAILY methenamine hippurate 1 gram tablet 1 g PO BID polyethylene glycol 3350 [Miralax] 17 gram/dose powder 17 g PO DAILY Patient Comments: Mix 1 capful of Miralax in water or juice every morning. nitroglycerin 0.4 mg tablet, sublingual 0.4 mg sublingual Q5M PRN sennosides [senna] 8.6 mg tablet 8.6 mg PO DAILY Patient Comments: 1 tablet by mouth every morning doxycycline hyclate 100 mg capsule 100 mg PO BID Qty: 10 0RF Follow Up/Referrals: Haley Cortes MD [Primary Care Provider, Family Practice] Stand Alone Forms: [facility] Info Instructions
--- OUTSIDE RECORDS SUMMARY | 2025-09-16 12:32 | XMS_ITS ---
Author Organization [facility] Care Team Providers Care Laminating Machine Operator Name Role Phone Carline Purcell Unavailable Unavailable Jodie Olivares Unavailable Allergies and adverse reactions Code CodeSystem Substance Reaction Severity StartDate Concern Status 50623 RXNORM Cefdinir Unknown 09/09/2021 active 2231 RXNORM Cephalexin Unknown 09/09/2021 active 7454 RXNORM Nitrofurantoin Unknown 09/09/[address] Sulfa Antibiotics Unknown 09/09/2021 active 58601 RXNORM Trimethoprim Unknown 09/09/2021 active Care Team Name Role Address Phone Organization Dates Jodie Olivares PCP [facility] ([facility] [place], [address], [place] (Office): : (Pager): [facility] 09/10/2021 - 09/20/2021 Carline Purcell [address] [place] [address], [address], [place] States (Office): (Pager): [facility] 09/10/2021 - 09/20/2021 Immunizations Immunization Status Vaccine [...] completed tuberculin skin test; unspecified formulation lotNumber: [id number] expiry: 01/17/2023 Mfg: sonafi Given 0.1 ml [...] ABSENCE OF BOTH CERVIX AND UTERUS 09/09/[address] active 2 ALZHEIMER'S DISEASE WITH EARLY ONSET 09/09/[address] active 3 ATHEROSCLEROTIC HEART DISEASE OF [place] CORONARY ARTERY WITH UNSPECIFIED ANGINA PECTORIS 09/09/[address] active 4 CHEST PAIN, UNSPECIFIED 09/09/[address] active 5 CHRONIC OBSTRUCTIVE PULMONARY DISEASE, UNSPECIFIED 09/09/[address] active 6 DEMENTIA IN OTHER DISEASES CLASSIFIED ELSEWHERE, UNSPECIFIED SEVERITY, WITHOUT BEHAVIORAL DISTURBANCE, PSYCHOTIC DISTURBANCE, MOOD DISTURBANCE, AND ANXIETY 09/09/[address] active 7 DISPLACED BIMALLEOLAR FRACTURE OF RIGHT LOWER LEG, SUBSEQUENT ENCOUNTER FOR OPEN FRACTURE TYPE I OR II WITH ROUTINE HEALING 09/09/[address] active 8 ESSENTIAL (PRIMARY) HYPERTENSION 09/09/[address] active 9 GASTRO-ESOPHAGEAL REFLUX DISEASE WITHOUT ESOPHAGITIS 09/09/[address] active 10 GENERALIZED ANXIETY DISORDER 09/09/[address] active 11 HYPERLIPIDEMIA, UNSPECIFIED 09/09/[address] active 12 HYPOTHYROIDISM, UNSPECIFIED 09/09/[address] active 13 [address]MMUNODEFICIENCY, UNSPECIFIED 09/09/[address] active 14 MAJOR DEPRESSIVE DISORDER, SINGLE EPISODE, UNSPECIFIED 09/09/[address] active 15 MODERATE PERSISTENT ASTHMA, UNCOMPLICATED 09/09/[address] active 16 MORBID (SEVERE) OBESITY DUE TO EXCESS CALORIES 09/09/[address] active 17 OTHER SPECIFIED ABNORMAL FINDINGS OF BLOOD CHEMISTRY 09/09/[address] active 18 OTHER SPECIFIED POSTPROCEDURAL STATES 09/09/[address] active 19 PERIPHERAL VASCULAR DISEASE, UNSPECIFIED 09/09/[address] active 20 PERSONAL HISTORY OF OTHER DISEASES OF URINARY SYSTEM 09/09/[address] active 21 PRESENCE OF RIGHT ARTIFICIAL KNEE JOINT 09/09/[address] active 22 PRESENCE OF UNSPECIFIED ARTIFICIAL HIP JOINT 09/09/[address] active 23 PRESENCE OF UROGENITAL IMPLANTS 09/09/[address] active 24 REPEATED FALLS 09/09/[address] active 25 RETENTION OF URINE, UNSPECIFIED 09/09/[address] active 26 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 09/09/[address] active 27 SYNCOPE AND COLLAPSE 09/09/[address] active 28 THORACIC AORTIC ECTASIA 09/09/[address] active 29 TRAUMATIC SUBDURAL HEMORRHAGE WITH LOSS OF CONSCIOUSNESS OF UNSPECIFIED DURATION, SUBSEQUENT ENCOUNTER 09/09/[address] active 30 TYPE 2 DIABETES MELLITUS WITH OTHER CIRCULATORY COMPLICATIONS 09/09/[address] active 31 UNSPECIFIED INTRACRANIAL INJURY WITHOUT LOSS OF CONSCIOUSNESS, SEQUELA 09/09/[address] active 32 UNSPECIFIED SENSORINEURAL HEARING LOSS 09/09/[address] active 33 UNSPECIFIED URETHRAL STRICTURE, MALE, UNSPECIFIED SITE 09/09/[address] active Reason for Referral No Reasons for Referral Entered Social History Social History Observation Description Start Date End Date Code Code System Current Smoking Status Tobacco smoking consumption unknown 911057403 SNOMED CT Sex Assigned At Female 1940 19211-1 [facility] Gender Identity Sexual Orientation Vital Signs Code Code System Vitals Name Values and Units Timing Information 39672-0 [facility] Pain Level Value=0.0 09/20/2021 04095-1 [facility] Weight Lqrwi=568.0 Units=Lbs 9279-1 [facility] Respiratory Rate Value=17.0 Units=/m in 09/20/2021 8462-4 [facility] Blood Pressure-Diastolic Value=78 Un its=mmHg 09/20/2021 8480-6 [facility] Blood Pressure-Systolic Ywttr=992 Un its=mmHg 09/20/2021 8310-5 [facility] Body Temperature Value=97.5 Units= F 09/20/2021 8867-4 [facility] Heart rate Value=83.0 Units=/min 68910-1 [facility] O2 % BldC Oximetry Value=93.0 Units= % 09/20/2021 2339-0 [facility] Blood Sugar Xanjf=030.0 Units=mg/dL 09/17/2021 8302-2 [facility] Height Value=64.0 Units=Inches 09/10/2021
== END 2025-09-16 12:50 | disposition home or self-care (01) ==
PROVIDERS: Emergency Provider Family Medicine; PCP Family Medicine
DX: S63.501A Unspecified sprain of right wrist, initial encounter (principal); F03.90 Unspecified dementia, unspecified severity, without behavioral disturbance, psychotic disturbance, mood disturbance, and anxiety; W19.XXXA Unspecified fall, initial encounter; Y92.099 Unspecified place in other non-institutional residence as the place of occurrence of the external cause
CPT/HCPCS: 73110; 73130; 99283; 99284

== ENCOUNTER 2025-10-01 18:33 | Emergency (ER) | payer MEDICARE, SELFPAY ==
--- OUTSIDE RECORDS SUMMARY | 2025-10-01 18:36 | XMS_ITS | Encounter Summary ---
Author Organization [facility] Address [address] [facility] [place] [address] Care Team Providers Care Pharmacist Name Role Phone Julito Banuelos MD Primary Care Provider [phone] Julito Banuelos MD Unavailable Aleshia Henriquez RD Unavailable Unavailable Susannah Blankenship [facility] Unavailable [phone] Carolyn Huynh [facility] Unavailable [phone] Vika Kevin APRN TELECOM SALES CONSULTANT Unavailable + Marilyn Willard MD Unavailable [phone] Carie Varela DO Unavailable [phone] Maylin May NP Unavailable [phone] Marisa Hernandez RN Unavailable Unavailable Vilma Long MD Unavailable + [phone] Yasmeen Pendleton [facility] Unavailable Cole George Unavailable Fletcher Russell Unavailable Unavailable Bautista Casey MD Unavailable [phone] Jasmyn Oliver Unavailable [phone] Vika Kevin APRN TELECOM SALES CONSULTANT Primary Care Prov ider Viak Kevin APRN [facility] Primary Care Prov ider Yasmeen Pendleton [facility] Unavailable Vika Kevin APRN [facility] Primary Care Prov ider Encounter Details Date Type Department Care Team (Late st Contact Info) Description 05/15/2020 MyC Medical Advice [address] [place] [address] Susannah Blankenship, [facility] [address] [facility] [address] [place] [address] Social History Tobacco Use Types Packs/Day Years [...] on file Legal Sex Female 3:22 AM [employer] [facility] Gender Identity Not on file Sexual Orientation [...] Out COVID-19 12/04/2020 12/04/2020 12/05/2020 6:04 PM [employer] [facility] Assessment Noted Time PHQ-9 Depression Total Score: 8 07/18/20 19 12:06 PM CDT documented as of this encounter Care Teams Pharmacist Relationship Specialty [place] [address] [place] [address] PCP - General Family Practice 09/12/15 09/23/21 Vika Kevin APRN TELECOM SALES CONSULTANT [address] [place] [address] PCP - General Nurse Practitioner - Family 09/24/21 03/05/22 Vika Kevin APRN TELECOM SALES CONSULTANT [address] [place] [address]666 PCP - General Nurse Practitioner - Family 03/18/22 06/18/22 Vkia Kevin APRN TELECOM SALES CONSULTANT [address] [place] [address]15 PCP - General Nurse Practitioner - Family 07/24/22 Julito Banuelos MD [address] [place] [address] [id number] Assigned PCP 02/17/16 07/21/[address] [place] [address] Factory Worker Dietitian, Registered 04/14/19 Susannah Blankenship, [facility] [address] [place] [address] [address] [place] [address] Pharmacist Pharmacist 08/08/19 04/15/21 Carolyn Huynh [facility] [address] [place] [address] Pharmacist Pharmacist 06/25/20 04/15/21 Vika Kevin APRN TELECOM SALES CONSULTANT [address] [place] [address] Assigned PCP 07/22/20 11/16/24 Marilyn Willard MD [address] [place] [address] [address] [place] [address] Assigned Surgical Provider 08/17/20 08/16/24 Carie Varela DO [address] [place] [address] Assigned Heart and Vascular Provider 08/17/20 01/19/21 Maylin May NP [address] [place] [address] Assigned Pediatric Specialist Provider 12/16/20 06/13/22 Marisa Rodrigues, RN Clinic Inventory Coordinator 01/15/21 02/26/21 Vilma Long MD [address] [place] [address] Assigned Heart and Vascular Provider 01/20/21 07/20/21 Yasmeen Pendleton [facility] [address] [place] [address] [phone] Pharmacist Pharmacist 06/04/21 01/15/22 Cole George LISW Lead Inventory Coordinator 06/13/21 10/07/21 Fletcher Up Community Health Worker 06/13/21 09/12/21 Bautista Casey MD [address] [place] [address] Assigned Heart and Vascular Provider 07/21/21 01/16/23 Jasmyn Oliver CHW Community Health Worker 09/13/21 10/07/21 Yasmeen Pendleton [facility] [address] [place] [address] Assigned MTM Pharmacist 03/22/22 01/02/23 documented as of this encounter
--- OUTSIDE RECORDS SUMMARY | 2025-10-01 18:36 | XMS_ITS | Encounter Summary ---
Author Organization [place] Address [address] [facility] [place] [address] Care Team Providers Care Library Circulation Clerk Name Role Phone Julito Banuelos MD Primary Care Provider [phone] Julito Banuelos MD Unavailable Aleshia Henriquez RD Unavailable Unavailable Mary Kay Jones [facility] Unavailable Unavailable Susannah Blankenship [facility] Unavailable Carolyn Huynh [facility] Unavailable [phone] Vika Kevin APRN AUTOMOTIVE REPAIR TECHNICIAN Unavailable + Marilyn Willard MD Unavailable [phone] Carie Varela DO Unavailable [phone] Maylin May NP Unavailable [phone] Marisa Hernandez RN Unavailable Unavailable Vilma Long MD Unavailable Yasmeen Pendleton [facility] Unavailable Cole George Unavailable Fletcher Russell Unavailable Unavailable Bautista Casey MD Unavailable Jasmyn Oliver CHW Unavailable [phone] Vika Kevin APRN AUTOMOTIVE REPAIR TECHNICIAN Primary Care Prov ider Vika Kevin APRN [facility] Primary Care Prov ider Yasmeen Pendleton [facility] Unavailable [phone] Vika Kevin APRN [facility] Primary Care Prov ider Encounter Details Date Type Department Care Team (Late st Contact Info) Description 02/13/2020 MyC Medical Advice [address] [place] [address] Mary Kay Jones, [facility] Social History Tobacco Use Types Packs/Day [...] on file Legal Sex Female 3:22 AM [employer] Gender Identity Not on file Sexual Orientation [...] Out COVID-19 12/04/2020 12/04/2020 12/05/2020 6:04 PM [employer] Assessment Noted Time PHQ-9 Depression Total Score: 8 07/18/20 19 12:06 PM CDT documented as of this encounter Care Teams Library Circulation Clerk Relationship Specialty [place] [address] [place] [address] PCP - General Family Practice 09/12/15 09/23/21 Vika Kevin APRN AUTOMOTIVE REPAIR TECHNICIAN [address] [place] [address] [id number] PCP - General Nurse Practitioner - Family 09/24/21 03/05/22 Vika Kevin APRN AUTOMOTIVE REPAIR TECHNICIAN [address] [place] [address] [id number] PCP - General Nurse Practitioner - Family 03/18/22 06/18/22 Vika Kevin APRN AUTOMOTIVE REPAIR TECHNICIAN [address] [place] [address]27 PCP - General Nurse Practitioner - Family 07/24/22 Julito Banuelos MD [address] [place] [address] [phone] Assigned PCP 02/17/16 07/21/[address] [place] [address] Repairer Kiln Car Dietitian, Registered 04/14/19 [address] [facility] Pharmacist 08/01/19 04/20/[address] [facility] [address] [place] [address] [address] [place], [place] [address] Pharmacist Pharmacist 08/08/19 04/15/[address] [facility] [address] [place] [address] Pharmacist Pharmacist 06/25/20 04/15/21 Vika Kevin APRN AUTOMOTIVE REPAIR TECHNICIAN [address] [place] [address] Assigned PCP 07/22/20 11/16/24 Marilyn Willard MD [address] [place] [address] [address] [place] [address] Assigned Surgical Provider 08/17/20 08/16/24 Carie Varela DO [address] [place] [address] Assigned Heart and Vascular Provider 08/17/20 01/19/21 Maylin May NP [address] [place] [address] Assigned Pediatric Specialist Provider 12/16/20 06/13/22 Marisa Rodrigues, RN Clinic Industrial Radiographer 01/15/21 02/26/21 Vilma Long MD [address] [place] [address] Assigned Heart and Vascular Provider 01/20/21 07/20/[address] [facility] [address] [place] [address] Pharmacist Pharmacist 06/04/21 01/15/22 Cole George LISW Lead Industrial Radiographer 06/13/21 10/07/21 Fletcher Up Community Health Worker 06/13/21 09/12/21 Bautista Casey MD [address] [place] [address] Assigned Heart and Vascular Provider 07/21/21 01/16/23 Jasmyn Oliver CHW Community Health Worker 09/13/21 10/07/21 Yasmeen Pendleton, [facility] [address] [place] [address] Assigned MTM Pharmacist 03/22/22 01/02/23 documented as of this encounter
--- OUTSIDE RECORDS SUMMARY | 2025-10-01 18:36 | XMS_ITS | Encounter Summary ---
Author Organization [place] Address [address] [facility] [place] [address] Care Team Providers Care Online User Experience Strategist Name Role Phone Cortez Lu MD Primary Care Provider [phone] Niko Resendiz MD Primary Care Provider Carlie Mac MD Primary Care Provide r Angella Mendieta MD Primary Care Provider Julito Banuelos MD Primary Care Provider [phone] Julito Banuelos MD Unavailable Julito Banuelos MD Unavailable Aleshia Henriquez RD Unavailable Unavailable Mary Kay Jones [facility] Unavailable Unavailable Susannah Blankenship [facility] Unavailable [phone] Carolyn Huynh [facility] Unavailable [phone] Vika Kevin APRN LIGHTNING ROD INSTALLER Unavailable + Marilyn Willard MD Unavailable [phone] Carie Varela DO Unavailable [phone] Maylin May NP Unavailable [phone] Marisa Rodrigues RN Unavailable Unavailable Vilma Long MD Unavailable + [phone] Yasmeen Pendleton [facility] Unavailable + [phone] Cole George Unavailable Fletcher Russell Unavailable Unavailable Bautista Casey MD Unavailable [phone] Jasmyn Oliver [facility] Unavailable [phone] Vika Kevin APRN [facility] Primary Care Prov ider Vika Kevin APRN [facility] Primary Care Prov ider Yasmeen Pendleton [facility] Unavailable + [phone] [facility] Primary Care Prov ider Encounter Details Date Type Department Care Team (Late st Contact Info) Description 02/01/2013 Office Visit-[facility] [address] [place] [address] Reji Davis MD [address] [place], [place] [id number] Social History Tobacco Use Types Packs/Day Years Used Date Smoking Tobacco: Former Cigarettes 0.3 15 0 10/26/1961 - 10/26/1976 Smokeless Tobacco: Never Alcohol Use Standard Drinks/Week Comments Yes 0 (1 standard drink = 0.6 oz pur e alcohol) 1-2 glasses of wine weekly Comments No Sex and Gender Information Value Date Recorded Sex Assigned at Not on file Legal 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 Diabetes Pwwfjvem-Ofh-Yhmbpgw Dependent, 250.00 2. - Hyperlipidemia mixed, 272.2 3. - Hypertension, 401.1 4. - CAD, 414.00 ALLERGIES lisinopril Nitrofurantoin Nitrofurantoin Macrocrystal pramipexole Di-HCl Sulfasalazine tolterodine tartrate zolpidem tartrate MEDICATIONS (prior to changes made today) 1. Asmanex Twisthaler 220 mcg (120 doses) Aerosol Powdr [facility] ActivInhl, Take as Directed 2. aspirin, [...] daily 9. Nasacort AQ 55 mcg Aerosol, [place], Take as Directed 10. Plavix 75 mg [...] HISTORY OF PRESENT ILLNESS INDICATION: History of cer-UH-znfwvbk elevation ND, here to establish care. Ms. Cosby is a very pleasant 72-year-old female with a history of hypertension, hyperlipidemia,and type 2 diabetes mellitus. She was wintering in [place] when she developed acute onset one evening of back pain with radiation into her chest. She also had associated slight shortness of breath. She had had complaints of shortness of breath with exertion for some time, but it appeared worse the several weeks prior to this event. She subsequently went to the Emergency Room and was found to havehad a tuy-TB-litiehs elevation ND. On 12/27/12 she was taken to the Cardiac Catheterization Lab at [facility] in [place], [place]. There she was found to have significant disease of the left circumflex artery. She underwent two drug-eluting stent implantations. The first was a 2.5x12 mm [place] Resolute drug-eluting stent to the mid circumflex. The second was a 3.0x15 mm [place] Resolute drug-eluting stent to the proximal left [...] on the echocardiogram. She has returned to [place] and states that she has been feeling tired but she has had no recurrent anginal symptoms. She denies any recurrent back pain or shortness of breath. Currently she has been having some dyspnea with exertion but she attributes this to not having taken her Lasix as she recently drove back from [place]. She is planning to take her Lasix over the next several days. She denies any orthopnea. No paroxysmal nocturnal dyspnea. No nausea, vomiting, diaphoresis, syncope, or presyncope. PAST HISTORY Past Medical Illnesses: asthma, HTN, hypothyoidism, diabetes, hyperlipidemia, major depression, anxiety Past Cardiac Illnesses: CAD, s/p ND Surgeries/Procedures - General: hysterectomy Cardiac/Vasc Procedures-Invasive: left heart cath 12/2012 ([place]) Cardiology Procedures-NonInvasive: echocardiogram Jun 2007, myocardial perfusion (Nuc) Jun 2007, echo 12/2012 ([place]) Cardiac Cath Results: 12/2012 [place] Resolute NELIA to the mid and prox [...] [place] for 3 months; Place of - [place]; [...] [place] but they can get bad in [place] [...] #0 (Zero) Nasacort AQ 55 mcg Aerosol, [place], Take as Directed, #0 (Zero) Plavix 75 [...] (Zero) Physician Order IMPRESSIONS/PLAN 1. History of uwg-HR-ecnelzx elevation ND. 2. Coronary artery disease - status post [...] her up for cardiac rehab in the [place] office since this is where she lives. [...] closer to 70 in the future. If she is not at goal on pravastatin 40 q.d. we can think about switching her to a more potent statin. I have asked her to contact the clinic should she have recurrence of any anginal symptoms. Fortunately, she has not had any to date. I do agree for her to take her Lasix over the next several days to see if this helps with her dyspnea with exertion. I think this is likely related to the fact that she has held her Lasix for the last several days while she was traveling back from [place]. She is to contact the clinic should her shortness of breath not improve. TODAYS ORDERS 1. Return Visit 6 months 2. Cardiac Rehab Phase 2 Reji aDvis documented in this encounter Plan of Treatment Not on file documented as of this encounter Visit Diagnoses Not on filedocumented in this encounter Additional Health Concerns Infection Onset Date Last Indicated Resolved Time Rule Out COVID-19 07/25/2020 07/25/2020 07/26/2020 3:02 PM CDT Rule Out COVID-19 12/04/2020 12/04/2020 12/05/2020 6:04 PM SURGEON CHIEF documented as of this encounter Care Teams Online User Experience Strategist Relationship Specialty Start Date End Date Cortez Lu MD XXX RETIRED XXX [address] [place] [address] PCP - General 12/10/01 01/10/14 Niko Resendiz MD [address] [address] PCP - General Internal Medicine 01/11/14 01/29/14 Carlie Mac MD [address] [place] [address] PCP - General Pediatrics 01/30/14 07/17/15 Angella Mendieta MD [address] [place] [address] PCP - General Family Practice 07/18/15 09/11/15 Julito Banuelos MD [address] [place] [address] PCP - General Family Practice 09/12/15 09/23/21 Julito Banuelos MD [address] [place] [address] PCP - Assigned PCP 02/17/16 12/28/18 Vika Kevin APRN LIGHTNING ROD INSTALLER [address] [place] [address] PCP - General Nurse Practitioner - Family 09/24/21 03/05/22 Vika Kevin APRN LIGHTNING ROD INSTALLER [address] [place] [address] PCP - General Nurse Practitioner - Family 03/18/22 06/18/22 Vika Kevin APRN LIGHTNING ROD INSTALLER [address] [place] [address] PCP - General Nurse Practitioner - Family 07/24/22 Julito Banuelos MD [address] [place] [address] [phone] Assigned PCP 02/17/16 07/21/[address] [place] [address] Tile Setter Apprentice Dietitian, Registered 04/14/19 Mary Kay Jones, [facility] Pharmacist 08/01/19 04/20/20 [facility] [address] [place] [address] 8[address] [place], [place] [phone] Pharmacist Pharmacist 08/08/19 04/15/21 Carolyn Huynh [facility] [address] [place], [place] [address] Pharmacist Pharmacist 06/25/20 04/15/21 Vika Kevin APRN LIGHTNING ROD INSTALLER [address] [place] [address] [phone] Assigned PCP 07/22/20 11/16/24 Marilyn Willard MD [address] [place] [address] [address] [place], [place] [address] Assigned Surgical Provider 08/17/20 08/16/24 Carie Varela DO [address] [place], [place] [address] Assigned Heart and Vascular Provider 08/17/20 01/19/21 Maylin May NP [address] [place], [place] [id number] Assigned Pediatric Specialist Provider 12/16/20 06/13/22 Marisa Rodrigues, RN Clinic Mower Mechanic 01/15/21 02/26/21 Vilma Long MD [address] [place] [address] Assigned Heart and Vascular Provider 01/20/21 07/20/21 [facility] [address] [place], [place] [address] Pharmacist Pharmacist 06/04/21 01/15/22 Cole George LISW Lead Mower Mechanic 06/13/21 10/07/21 Fletcher Up Community Health Worker 06/13/21 09/12/21 Bautista Casey MD [address] [place] [address] Assigned Heart and Vascular Provider 07/21/21 01/16/23 Jasmyn Oliver CHW Community Health Worker 09/13/21 10/07/21 Yasmeen Pendleton [facility] [address] [place] [address] Assigned MTM Pharmacist 03/22/22 01/02/23 documented as of this encounter
--- OUTSIDE RECORDS SUMMARY | 2025-10-01 18:36 | XMS_ITS | Encounter Summary ---
Author Organization [place] Address [address] [facility] [place] [address] Care Team Providers Care Booker Name Role Phone Andrew Lu MD Primary Care Provider [phone] Niko Resendiz MD Primary Care Provider Carlie Mac MD Primary Care Provide r Angella Mendieta MD Primary Care Provider Julito Banuelos MD Primary Care Provider [phone] Julito Banuelos MD Unavailable Julito Banuelos MD Unavailable Aleshia Henriquez RD Unavailable Unavailable Mary Kay Jones [facility] Unavailable Unavailable Susannah Blankenship [facility] Unavailable [phone] Carolyn Huynh [facility] Unavailable [phone] Vika Kevin APRN CAGE MANAGER Unavailable + Marilyn Willard MD Unavailable [phone] Carie Varela DO Unavailable [phone] Maylin May NP Unavailable [phone] Marisa Rodrigues RN Unavailable Unavailable Vilma Long MD Unavailable + [phone] Yasmeen Pendleton [facility] Unavailable [phone] Cole George Unavailable Fletcher Russell Unavailable Unavailable Bautista Casey MD Unavailable DemetriusJasmyn wright [facility] Unavailable [phone] Vika Kevin APRN [facility] Primary Care Prov ider Vika Kevin APRN [facility] Primary Care Prov ider Yasmeen Pendleton [facility] Unavailable [phone] [facility] Primary Care Prov ider Encounter Details Date Type Department Care Team (Late st Contact Info) Description 04/27/2012 MyC Medical Advice [address] [phone] Andrew Lu MD XXX RETIRED XXX [address] [phone] Social History Tobacco Use Types Packs/Day Years [...] file Legal Sex Female 3:22 AM BUSINESS RULES ANALYST Gender Identity Not on file Sexual [...] COVID-19 12/04/2020 12/04/2020 12/05/2020 6:04 PM BUSINESS RULES ANALYST documented as of this encounter Care Teams Booker Relationship Specialty Start Date End Date Andrew Lu MD XXX RETIRED XXX [address] [place] [phone] PCP - General 12/10/01 01/10/14 Niko Resendiz MD [address] [place] [address] PCP - General Internal Medicine 01/11/14 01/29/14 Carlie Mac MD [address] [place] [address] PCP - General Pediatrics 01/30/14 07/17/15 Angella Mendieta MD [address] [place] [address] PCP - General Family Practice 07/18/15 09/11/15 Julito Banuelos MD [address] [place] [address] PCP - General Family Practice 09/12/15 09/23/21 Julito Banuelos MD [address] [place] [address] PCP - Assigned PCP 02/17/16 12/28/18 Vika Kevin APRN CAGE MANAGER [address] [place] [address] PCP - General Nurse Practitioner - Family 09/24/21 03/05/22 Vika Kevin APRN CAGE MANAGER [address] [place] [address] PCP - General Nurse Practitioner - Family 03/18/22 06/18/22 Vika Kevin, JAIME CAGE MANAGER [address] [place] [address] 693302 PCP - General Nurse Practitioner - Family 07/24/22 Julito Banuelos MD [address] [place] [address] 045052 Assigned PCP 02/17/16 07/21/[address] [place] [address] Quebracho Tanner Dietitian, Registered 04/14/19 Mary Kay Jones, [facility] Pharmacist 08/01/19 04/20/20 Susannah Blankenship, [facility] [address] [facility] [address] [place], [place] [address] Pharmacist Pharmacist 08/08/19 04/15/21 Carolyn Huynh, [facility] [address] [place], [place] [address] Pharmacist Pharmacist 06/25/20 04/15/21 Vika Kevin, JAIME CAGE MANAGER [address] [place] [address] 095722 Assigned PCP 07/22/20 11/16/24 Marilyn Willard MD [address] [facility] [address] [place], [place] [address] Assigned Surgical Provider 08/17/20 08/16/24 Carie Varela DO [address] [place] [address] Assigned Heart and Vascular Provider 08/17/20 01/19/21 Maylin May NP [address] [place] [address] Assigned Pediatric Specialist Provider 12/16/20 06/13/22 Marisa Rodrigues, RN Clinic Environmental Professional 01/15/21 02/26/21 Vilma Long MD [address] [place] [address] Assigned Heart and Vascular Provider 01/20/21 07/20/21 Yasmeen Pendleton [facility] [address] [place] [address] Pharmacist Pharmacist 06/04/21 01/15/22 Cole George LISW Lead Environmental Professional 06/13/21 10/07/21 Fletcher Up Community Health Worker 06/13/21 09/12/21 Bautista Casey MD [address] [place] [address] Assigned Heart and Vascular Provider 07/21/21 01/16/23 Jasmyn Oliver CHW Community Health Worker 09/13/21 10/07/21 Yasmeen Pendleton [facility] [address] [place] [address] Assigned MTM Pharmacist 03/22/22 01/02/23 documented as of this encounter
--- OUTSIDE RECORDS SUMMARY | 2025-10-01 18:36 | XMS_ITS | Encounter Summary ---
Author Organization [place] Address [address] [place] [address] Care Team Providers Care Heat Treat Operator Name Role Phone Cortez Lu MD Primary Care Provider [phone] Niko Resendiz MD Primary Care Provider Carlie Mac MD Primary Care Provide r Angella Mendieta MD Primary Care Provider Julito Banuelos MD Primary Care Provider [phone] Julito Banuelos MD Unavailable Julito Banuelos MD Unavailable Aleshia Henriquez RD Unavailable Unavailable Mary Kay Jones [facility] Unavailable Unavailable Susannah Blankenship [facility] Unavailable [phone] Carolyn Huynh [facility] Unavailable [phone] Vika Kevin APRN MOTOR ANALYST Unavailable + Marilyn Willard MD Unavailable [phone] Carie Varela DO Unavailable [phone] Maylin May NP Unavailable [phone] Marisa Rodrigues RN Unavailable Unavailable Vilma Long MD Unavailable + [phone] Yasmeen Pendleton [facility] Unavailable + [phone] Cole George Unavailable Fletcher Russell Unavailable Unavailable aButista MD Unavailable [phone] Jasmyn Oliver [facility] Unavailable [phone] Vika Kevin APRN [facility] Primary Care Prov ider Vika Kevin APRN [facility] Primary Care Prov ider Yasmeen Pendleton [facility] Unavailable + [phone] Vika [facility] Primary Care Prov ider Encounter Details Date Type Department Care Team (Late st Contact Info) Description 04/22/2013 Office Visit-[facility] Heart [address] [place] [address] Reji Davis MD [address] [place], [place] [id number] Social History Tobacco Use Types Packs/Day Years Used Date Smoking Tobacco: Former Cigarettes 0.3 15 0 10/26/1961 - 10/26/1976 Smokeless Tobacco: Never Alcohol Use Standard Drinks/Week Comments Yes 0 (1 standard drink = 0.6 oz pur e alcohol) 1-2 glasses of wine weekly Comments No Sex and Gender Information Value Date Recorded Sex Assigned at Not on file Legal Sex Female 3:22 AM BUDGET DIRECTOR Gender Identity Not on file Sexual Orientation Not on file Occupation Industry Job Start Date Job End Date Not on file Not on file Not on file Not on file documented as of this encounter Progress Notes * Reji Davis MD - 04/26/2013 1:24 PM CDT Progress Note Created by: Reji Davis MD #[id number] DATE: 04/22/2013 MARIALUISA COSBY DATE OF : 1940 AGE: [age] years old Referring Physician: CORTEZ LU Referring Clinic: [facility] CURRENT DIAGNOSES 1. 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 - Hyperlipidemia mixed, 272.2 [...] daily 12. Nasacort AQ 55 mcg Aerosol, [place], Take as Directed 13. Plavix 75 mg [...] circumflex artery in December of 2012 at [facility] in [place], [place] following presentation for non-ST segment elevation OR. I last saw her inApril of this [...] Leg syndrome Past Cardiac Illnesses: CAD, s/p OR Surgeries/Procedures - General: hysterectomy Cardiac/Vasc Procedures-Invasive: left heart cath 12/2012 ([place]) Cardiology Procedures-NonInvasive: echocardiogram Jun 2007, myocardial perfusion (Nuc) Jun 2007, echo 12/2012 ([place]), stress echo February 2013 Cardiac Cath Results: 12/2012 [place] NELIA to the mid and prox [...] - lives with and been living in [place] for 3 months; Place of - [place]; REVIEW OF SYSTEMS GENERAL fatigue, weight loss, [...] [place] but they can get bad in [place] too PHYSICAL EXAMINATION VITAL SIGNS: Blood Pressure: [...] symptoms similar to what she had in [place] then I will need to see her [...] Out COVID-19 12/04/2020 12/04/2020 12/05/2020 6:04 PM BUDGET DIRECTOR documented as of this encounter Care Teams Heat Treat Operator Relationship Specialty Start Date End Date Cortez Lu MD XXX RETIRED XXX [address] [place] [address] PCP - General 12/10/01 01/10/14 Niko Resendiz MD [address] [place] [address] PCP - General Internal Medicine 01/11/14 01/29/14 Carlie Mac MD [address] [place] [address] PCP - General Pediatrics 01/30/14 07/17/15 Angella Mendieta MD [facility] [place] [address] PCP - General Family Practice 07/18/15 09/11/15 Julito Banuelos MD [address] [place] [address] PCP - General Family Practice 09/12/15 09/23/21 Julito Banuelos MD [address] [place] [address] PCP - Assigned PCP 02/17/16 12/28/18 Vika Kevin APRN MOTOR ANALYST [address] [place] [address] PCP - General Nurse Practitioner - Family 09/24/21 03/05/22 Vika Kevin APRN MOTOR ANALYST [address] [place] [address] PCP - General Nurse Practitioner - Family 03/18/22 06/18/22 Vika Kevin APRN MOTOR ANALYST [address] [place] [address] PCP - General Nurse Practitioner - Family 07/24/22 Jultio Banuelos MD [address] [place] [address] Assigned PCP 02/17/16 07/21/[address] [place] [address] Thread Cutter Dietitian, Registered 04/14/19 Mary Kay Jones [facility] 08/01/19 04/20/20 Susannah Blankenship, [facility] [address] [place] [address] [address] [place] [address] Pharmacist Pharmacist 08/08/19 04/15/21 Carolyn Huynh [facility] [address] [place] [address] Pharmacist Pharmacist 06/25/20 04/15/21 Vika Kevin, JAIME MOTOR ANALYST [address] [place] [address] [phone] Assigned PCP 07/22/20 11/16/24 Marilyn Willard MD [address] [facility] [address] [place], [place] [address] Assigned Surgical Provider 08/17/20 08/16/24 Carie Varela DO [address] [place] [address] Assigned Heart and Vascular Provider 08/17/20 01/19/21 Maylin May NP [address] [place], [place] [id number] Assigned Pediatric Specialist Provider 12/16/20 06/13/22 Marisa Rodrigues, RN Clinic Business Analytics Intern 01/15/21 02/26/21 Vilma Long MD [address] [place] [address] Assigned Heart and Vascular Provider 01/20/21 07/20/21 Yasmeen Pendleton [facility] [address] [place], [place] [address] Pharmacist Pharmacist 06/04/21 01/15/22 Cole George LISW Lead Business Analytics Intern 06/13/21 10/07/21 Fletcher Up Community Health Worker 06/13/21 09/12/21 Bautista Casey MD [address] [place], [place] [address] Assigned Heart and Vascular Provider 07/21/21 01/16/23 Jasmyn Oliver CHW Community Health Worker 09/13/21 10/07/21 Yasmeen Pendleton [facility] [address] [place] [address] Assigned MTM Pharmacist 03/22/22 01/02/23 documented as of this encounter
--- OUTSIDE RECORDS SUMMARY | 2025-10-01 18:36 | XMS_ITS | Encounter Summary ---
Author Organization [place] Address [address] [facility] [place] [address] Care Team Providers Care Glassworker Name Role Phone Julito Banuelos MD Primary Care Provider [phone] Julito Banuelos MD Unavailable Aleshia Henriquez RD Unavailable Unavailable Mary Kay Jones [facility] Unavailable Unavailable Susannah Blankenship [facility] Unavailable Carolyn Huynh [facility] Unavailable [phone] REPORTER Unavailable + Marilyn Willard MD Unavailable Carie Varela DO Unavailable [phone] Maylin May NP Unavailable [phone] Marisa Hernandez RN Unavailable Unavailable Vilma Long MD Unavailable Yasmeen Pendleton [facility] Unavailable Cole eGorge Unavailable Fletcher Russell Unavailable Unavailable Bautista Casey MD Unavailable [phone] Jasmyn Oliver CHW Unavailable [phone]N [address] REPORTER Primary Care Prov ider Vika Kevin APRN [facility] Primary Care Prov ider Yasmeen Pendleton [facility] Unavailable [phone] Vika Kevin APRN [facility] Primary Care Prov ider Reason for Visit * Reason Onset Date Comments Refill Request 09/11/2019 Encounter Details Date Type Department Care Team (Late st Contact Info) Description 09/11/2019 MyC Refill [address] [place] [address] Julito Banuelos MD [address] [place] [address] Refill Request Social History Tobacco [...] on file Legal Sex Female 3:22 AM SOUR BLEACHING PLEATER Gender Identity Not on file Sexual Orientation Not on file Occupation Industry Job Start Date Job End Date Not on file Not on file Not on file Not on file documented as of this encounter Miscellaneous Notes * Telephone Encounter - Shanelle Corona RN - 09/13/2019 11:06 AM SOUR BLEACHING PLEATER This was discontinued due to side effects. Sent mychart to patient asking if she is still taking. Ruth Muñoz RN [facility] [phone] BLEACHING PLEATER * Telephone Encounter - Sandra Jesús - 09/12/2019 9:28 AM CST Requested Prescriptions Pending Prescriptions Disp Refills ??? donepezil (ARICEPT) 5 MG tablet Last Written Prescription Date: 08.08.19 Last Fill Quantity: 30 tablet, # refills: 3 Last office visit: 08/08/2019 with prescribing provider: Julito Banuelos MD Future Office Visit: Next 5 appointments (look out 90 days) Sep 12, 2019 2:00 PM SOUR BLEACHING PLEATER SHORT with Susannah Blankenship [facility] ([facility] [address] [facility] [address] [facility] [phone] Sep 23, 2019 10:50 AM SOUR BLEACHING PLEATER Office Visit with [facility]ito [facility]uel[facility] [address] [place] [address] [phone] 30 tablet 3 Sig: Take 1 tablet [...] is 18 years of age or older BLEACHING PLEATER documented in this encounter Plan of Treatment Not on file documented as of this encounter Visit Diagnoses Diagnosis 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) documented in this encounter Additional Health Concerns Infection Onset Date Last Indicated Resolved Time Rule Out COVID-19 07/25/2020 07/25/2020 07/26/2020 3:02 PM CDT Rule Out COVID-19 12/04/2020 12/04/2020 12/05/2020 6:04 PM SOUR BLEACHING PLEATER Assessment Noted Time PHQ-9 Depression Total Score: 8 07/18/20 19 12:06 PM CDT documented as of this encounter Care Teams Glassworker Relationship Specialty Start Date End Date Julito Banuelos MD [address] [place] [address] [phone] PCP - General Family Practice 09/12/15 09/23/[address] REPORTER [address] [place] [address] 995502 PCP - General Nurse Practitioner - Family 09/24/21 03/05/[address]N [address]IG[address] REPORTER [address] [place] [address] PCP - General Nurse Practitioner - Family 03/18/22 06/18/[address]N [address] REPORTER [address] [place] [address] 338232 PCP - General Nurse Practitioner - Family 07/24/22 Julito Banuelos MD [address] [place] [address] 299052 Assigned PCP 02/17/16 07/21/[address] [place] [address] Manager Leasing Dietitian, Registered 04/14/19 Mary Kay Jones, [facility] Pharmacist 08/01/19 04/20/20 Susannah Blankenship, [facility] [address] [place] [address] [address] [place] [address] Pharmacist Pharmacist 08/08/19 04/15/21 Carolyn Huynh [facility] [address] [place] [address] Pharmacist Pharmacist 06/25/20 04/15/[address] REPORTER [address] [place] [address] Assigned PCP 07/22/20 11/16/24 Marilyn Willard MD [address] [facility] [address] [place] [address] Assigned Surgical Provider 08/17/20 08/16/24 Carie Varela DO [address] [place] [address] Assigned Heart and Vascular Provider 08/17/20 01/19/21 Maylin May NP [address] [place] [address] Assigned Pediatric Specialist Provider 12/16/20 06/13/22 Marisa Rodrigues, RN Clinic Machine Tool Designer 01/15/21 02/26/21 Vilma Long MD [address] [place] [address] Assigned Heart and Vascular Provider 01/20/21 07/20/21 Yasmeen Pendleton [facility] [address] [place] [address] Pharmacist Pharmacist 06/04/21 01/15/22 Cole George LISW Lead Machine Tool Designer 06/13/21 10/07/21 Fletcher Up Community Health Worker 06/13/21 09/12/21 Bautista Casey MD [address] [place] [address] Assigned Heart and Vascular Provider 07/21/21 01/16/23 Jasmyn Oliver CHW Community Health Worker 09/13/21 10/07/21 Yasmeen Pendleton [facility] [address] [place] [address] Assigned MTM Pharmacist 03/22/22 01/02/23 documented as of this encounter
--- OUTSIDE RECORDS SUMMARY | 2025-10-01 18:36 | XMS_ITS | Encounter Summary ---
Author Organization [place] Address [address] [facility] [place] [address] Care Team Providers Care Hand Assembler Name Role Phone Julito Banuelos MD Primary Care Provider [phone] Julito Banuelos MD Unavailable Aleshia Henriquez RD Unavailable Unavailable Mary Kay Jones [facility] Unavailable Unavailable Susannah Blankenship [facility] Unavailable Carolyn Huynh [facility] Unavailable [phone] Vika Kevin APRN RETAIL LOAN ORIGINATOR Unavailable + Marilyn Willard MD Unavailable Carie Varela DO Unavailable [phone] Maylin May NP Unavailable [phone] Marisa Hernandez RN Unavailable Unavailable Vilma Long MD Unavailable Yasmeen Pendleton [facility] Unavailable Cole George Unavailable Fletcher Russell Unavailable Unavailable Bautista Casey MD Unavailable [phone] Jasmyn Oliver CHW Unavailable [phone] Vika Kevin APRN RETAIL LOAN ORIGINATOR Primary Care Prov ider Vika Kevin APRN [facility] Primary Care Prov ider Yasmeen Pendleton [facility] Unavailable + [phone] Vika Kevin APRN [facility] Primary Care Prov ider Reason for Visit * Reason Onset Date Comments Refill Request 09/22/2019 Encounter Details Date Type Department Care Team (Late st Contact Info) Description 09/22/2019 MyC Refill [facility] [address] [facility] [address] [place] [phone] Carie Varela DO [address] [place], [place] [address] Refill Request Social History Tobacco Use Types [...] on file Legal Sex Female 3:22 AM FRAME STRIPPER Gender Identity Not on file Sexual Orientation Not on file Occupation Industry Job Start Date Job End Date Not on file Not on file Not on file Not on file documented as of this encounter Plan of Treatment Not on file documented as of this encounter Visit Diagnoses Diagnosis Coronary artery disease involving seminole coronary artery of seminole heart without angina pectoris Unstable angina (H) Intermediate coronary syndrome documented in this encounter Additional Health Concerns Infection Onset Date Last Indicated Resolved Time Rule Out COVID-19 07/25/2020 07/25/2020 07/26/2020 3:02 PM CDT Rule Out COVID-19 12/04/2020 12/04/2020 12/05/2020 6:04 PM FRAME STRIPPER Assessment Noted Time PHQ-9 Depression Total Score: 8 07/18/20 19 12:06 PM CDT documented as of this encounter Care Teams Hand Assembler Relationship Specialty Start Date End Date Julito Banuelos MD [address] [place] [address] PCP - General Family Practice 09/12/15 09/23/21 Vika Kevin APRN RETAIL LOAN ORIGINATOR [address] [place] [address] PCP - General Nurse Practitioner - Family 09/24/21 03/05/22 Vika Kevin APRN RETAIL LOAN ORIGINATOR [address] [place] [address] PCP - General Nurse Practitioner - Family 03/18/22 06/18/22 Vika Kvein APRN RETAIL LOAN ORIGINATOR [address] [place] [address] PCP - General Nurse Practitioner - Family 07/24/22 Julito Banuelos MD [address] [place] [address] Assigned PCP 02/17/16 07/21/[address] [place] [address] Mat Maker Dietitian, Registered 04/14/19 Mary Kay Jones [facility] Pharmacist 08/01/19 04/20/20 Susannah Blankenship [facility] [address] [place] [address] 8[address] [place] [address] Pharmacist Pharmacist 08/08/19 04/15/21 Carolyn Huynh [facility] [address] [place] [address] Pharmacist Pharmacist 06/25/20 04/15/21 Vika Kevin, NET DEVELOPER WITH [employer] RETAIL LOAN ORIGINATOR [address] [place], [place] [address] Assigned PCP 07/22/20 11/16/24 Marilyn Willard MD [address] [facility] [address] [place], [place] [address] Assigned Surgical Provider 08/17/20 08/16/24 Carie Varela DO [address] [place] [address] Assigned Heart and Vascular Provider 08/17/20 01/19/21 Maylin May NP [address] [place], [place] [address] Assigned Pediatric Specialist Provider 12/16/20 06/13/22 Marisa Rodrigues, RN Clinic Manager Van 01/15/21 02/26/21 Vilma Long MD [address] [place] [address] Assigned Heart and Vascular Provider 01/20/21 07/20/21 Yasmeen Pendleton [facility] [address] [place] [address] Pharmacist Pharmacist 06/04/21 01/15/22 Cole George LISW Lead Manager Van 06/13/21 10/07/21 Fletcher Up Community Health Worker 06/13/21 09/12/21 Bautista Casey MD [address] [place] [address] Assigned Heart and Vascular Provider 07/21/21 01/16/23 Jasmyn Oliver CHW Community Health Worker 09/13/21 10/07/21 Yasmeen Pendleton, [facility] [address] [place], [place] [address] Assigned MTM Pharmacist 03/22/22 01/02/23 documented as of this encounter
--- OUTSIDE RECORDS SUMMARY | 2025-10-01 18:36 | XMS_ITS | Encounter Summary ---
Author Organization [place] Address [address] [facility] [place] [address] Care Team Providers Care Drying Frame Operator Name Role Phone Andrew Lu MD Primary Care Provider [phone] Niko Resendiz MD Primary Care Provider Carlie Mac MD Primary Care Provide r Angella Mendieta MD Primary Care Provider Julito Banuelos MD Primary Care Provider [phone] Julito Banuelos MD Unavailable Julito Banuelos MD Unavailable Aleshia Henriquez RD Unavailable Unavailable Mary Kay Jones [facility] Unavailable Unavailable Susannah Blankenship [facility] Unavailable [phone] Carolyn Huynh [facility] Unavailable [phone] Vika Kevin APRN PRESENTATION TEAM MEMBER Unavailable + Marilyn Willard MD Unavailable [phone] Carie Varela DO Unavailable [phone] Maylin May NP Unavailable [phone] Marisa Rodrigues RN Unavailable Unavailable Vilma Long MD Unavailable + [phone] Yasmeen Pendleton [facility] Unavailable [phone] Cole George Unavailable Fletcher Russell Unavailable Unavailable Bautista Casey MD Unavailable AnnyJasmyn tracey [facility] Unavailable [phone] Vika Kevin APRN [facility] Primary Care Prov ider Vika Kevin APRN [facility] Primary Care Prov ider Yasmeen Pendleton [facility] Unavailable [phone] Vika Kevin APRN [facility] Primary Care Prov ider Reason for Visit * Reason Onset Date Comments Refill Request 05/02/2012 Encounter Details Date Type Department Care Team (Late st Contact Info) Description 05/02/2012 MyC Refill [address] [address] Andrew Lu MD XXX RETIRED XXX [address] [place] [address] Refill Request Social History Tobacco Use [...] on file Legal Sex Female 3:22 AM MEDICAL SOCIAL 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 Gender Identity Not on file Sexual [...] pharmacy: [facility] Comment: documented in this encounter Plan of Treatment Not on file documented as of this encounter Visit Diagnoses Diagnosis Cellulitis of leg- Primary Cellulitis and abscess of leg, except foot documented in this encounter Additional Health Concerns Infection Onset Date Last Indicated Resolved Time Rule Out COVID-19 07/25/2020 07/25/2020 07/26/2020 3:02 PM CDT Rule Out COVID-19 12/04/2020 12/04/2020 12/05/2020 6:04 PM MEDICAL SOCIAL CONSULTANT documented as of this encounter Care Teams Drying Frame Operator Relationship Specialty Start Date End Date Andrew Lu MD XXX RETIRED XXX [address] [place] [address] PCP - General 12/10/01 01/10/14 Niko Resendiz MD [address] [place] [address] PCP - General Internal Medicine 01/11/14 01/29/14 Carlie Mac MD [address] [place] [address] PCP - General Pediatrics 01/30/14 07/17/15 Angelal Mendieta MD [address] [place] [address], [place] [address] PCP - General Family Practice 07/18/15 09/11/15 Julito Banuelos MD [address] [place] [address] PCP - General Family Practice 09/12/15 09/23/21 Julito Banuelos MD [address] [place] [address], [place] [address] PCP - Assigned PCP 02/17/16 12/28/18 Vika Kevin APRN PRESENTATION TEAM MEMBER [address] [place] [address] PCP - General Nurse Practitioner - Family 09/24/21 03/05/22 Vika Kevin APRN PRESENTATION TEAM MEMBER [address] [place] [address] PCP - General Nurse Practitioner - Family 03/18/22 06/18/22 Vika Kevin APRN PRESENTATION TEAM MEMBER [address] [place] [address] PCP - General Nurse Practitioner - Family 07/24/22 Julito Banuelos MD [address] [place] [address] 47[address] Assigned PCP 02/17/16 07/21/[address] [place] [address] Legislative Correspondent Dietitian, Registered 04/14/19 Mary Kay Jones, [facility] Pharmacist 08/01/19 04/20/20 Susannah Blankenship, [facility] [address] [facility] [address] [place], [place] [address] Pharmacist Pharmacist 08/08/19 04/15/21 Carolyn Huynh, [facility] [address] [place] [address] Pharmacist Pharmacist 06/25/20 04/15/21 Vika Kevin, BATTERY WRECKER OPERATOR PRESENTATION TEAM MEMBER [address] [place] [address] 384472 Assigned PCP 07/22/20 11/16/24 Marilyn Willard MD [address] [facility] [address] [place], [place] [address] Assigned Surgical Provider 08/17/20 08/16/24 Carie Varela DO [address] [place] [address] Assigned Heart and Vascular Provider 08/17/20 01/19/21 Maylin May NP [address] [place], [place] [id number] Assigned Pediatric Specialist Provider 12/16/20 06/13/22 Marisa Rodrigues, RN Clinic Psychiatric Social Worker Supervisor 01/15/21 02/26/21 Vilma Long MD [address] [place] [id number] Assigned Heart and Vascular Provider 01/20/21 07/20/21 Yasmeen Pendleton, [facility] [address] [place] [address] Pharmacist Pharmacist 06/04/21 01/15/22 Cole George LISW Lead Psychiatric Social Worker Supervisor 06/13/21 10/07/21 Fletcher Up Community Health Worker 06/13/21 09/12/21 Bautista Casey MD [address] [place] [address] Assigned Heart and Vascular Provider 07/21/21 01/16/23 Jasmyn Oliver CHW Counts Include [address] [facility] Health Worker 09/13/21 10/07/21 Yasmeen Pendleton [facility] [address] [place] [address] Assigned MTM Pharmacist 03/22/22 01/02/23 documented as of this encounter
--- OUTSIDE RECORDS SUMMARY | 2025-10-01 18:36 | XMS_ITS | Encounter Summary ---
Author Organization [place] Address [address] [place] [address] Care Team Providers Care Alternative Dispute Resolution Mediator Name Role Phone Julito Banuelos MD Primary Care Provider [phone] Julito Banuelos MD Unavailable Aleshia Henriquez RD Unavailable Unavailable Mary Kay Jones [facility] Unavailable Unavailable Susannah Blankenship [facility] Unavailable Carolyn Huynh [facility] Unavailable [phone] Vika Kevin APRN DOOR CLOSER Unavailable + Marilyn Willard MD Unavailable Carie Varela DO Unavailable [phone] Maylin May NP Unavailable [phone] Marisa Hernandez RN Unavailable Unavailable Vilma Long MD Unavailable Yasmeen Pendleton [facility] Unavailable Cole George Unavailable Fletcher Russell Unavailable Unavailable Bautista Casey MD Unavailable Jasmyn Oliver CHW Unavailable [phone] Vika Kevin APRN DOOR CLOSER Primary Care Prov ider Vika Kevin APRN [facility] Primary Care Prov ider Yasmeen ePndleton [facility] Unavailable + [phone] Vika Kevin APRN [facility] Primary Care Prov ider Reason for Visit * Reason Comments Medication Refill Encounter Details Date Type Department Care Team (Late st Contact Info) Description 09/07/[address] [phone] [place] [address] [place] [address] [phone] Medication Refill Social History Tobacco Use Types [...] Legal Sex Female 3:22 AM MOTOR 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 Panda Bradshaw RN [place] T[facility] R VEHICLE LECTURER * Telephone Encounter - Jesús Flores - [...] 90 days) Sep 12, 2019 2:00 PM MOTOR VEHICLE LECTURER SHORT with Susannah Blankenship [facility] ([facility]) [address] [facility] [id number] Sep 23, 2019 10:50 AM MOTOR VEHICLE LECTURER Office Visit with Julito Banuelos MD [facility] [address] [place] [address] [phone] 48 g 3 Sig: SPRAY TWO SPRAYS [...] Orders section of the refill encounter. R VEHICLE LECTURER documented in this encounter Plan of Treatment Not on file documented as of this encounter Visit Diagnoses Diagnosis Environmental allergies Allergic rhinitis, cause unspecified documented in this encounter Additional Health Concerns Infection Onset Date Last Indicated Resolved Time Rule Out COVID-19 07/25/2020 07/25/2020 07/26/2020 3:02 PM CDT Rule Out COVID-19 12/04/2020 12/04/2020 12/05/2020 6:04 PM MOTOR VEHICLE LECTURER Assessment Noted Time PHQ-9 Depression Total Score: 8 07/18/20 19 12:06 PM CDT documented as of this encounter Care Teams Alternative Dispute Resolution Mediator Relationship Specialty Start Date End Date Julito Banuelos MD [address] [place] [address] [id number] PCP - General Family Practice 09/12/15 09/23/21 Vika Kevin APRN DOOR CLOSER [address] [place] [address] [id number] PCP - General Nurse Practitioner - Family 09/24/21 03/05/22 Vika Kevin APRN DOOR CLOSER [address] [place] [address] [phone] PCP - General Nurse Practitioner - Family 03/18/22 06/18/22 Vika Kevin APRN DOOR CLOSER [address] [place] [address] [phone] PCP - General Nurse Practitioner - Family 07/24/22 Julito Banuelos MD [address] [place] [address] [phone] Assigned PCP 02/17/16 07/21/[address] [place] [address] 48204 Digital Publishing Specialist Dietitian, Registered 04/14/19 Mary Kay Jones [facility] Pharmacist 08/01/19 04/20/20 Susannah Blankenship, [facility] [address] [place] [address] [address] [place] [address] Pharmacist Pharmacist 08/08/19 04/15/21 Carolyn Huynh [facility] [place] [address] Pharmacist Pharmacist 06/25/20 04/15/21 Vika Kevin APRN DOOR CLOSER [address] [place] [address] 91035 Assigned PCP 07/22/20 11/16/24 Marilyn Willard MD [address] [place] [address]13 Assigned Surgical Provider 08/17/20 08/16/24 Carie Varela DO [address] [place] [address] Assigned Heart and Vascular Provider 08/17/20 01/19/21 Maylin May NP [address] [place] [address] Assigned Pediatric Specialist Provider 12/16/20 06/13/22 Marisa Rodrigues, RN Clinic Collection Systems Consultant 01/15/21 02/26/21 Vilma Long MD [address] [place] [address] Assigned Heart and Vascular Provider 01/20/21 07/20/21 Yasmeen Pendleton [facility] [address] [place] [address] Pharmacist Pharmacist 06/04/21 01/15/22 Cole George LISW Lead Collection Systems Consultant 06/13/21 10/07/21 Fletcher Up Community Health Worker 06/13/21 09/12/21 Bautista Casey MD [address] [place] [address] Assigned Heart and Vascular Provider 07/21/21 01/16/23 Jasmyn Oliver CHW Community Health Worker 09/13/21 10/07/21 Yasmeen Pendleton [facility] [address] [place] [address] Assigned MTM Pharmacist 03/22/22 01/02/23 documented as of this encounter
--- OUTSIDE RECORDS SUMMARY | 2025-10-01 18:36 | XMS_ITS | Encounter Summary ---
Author Organization [place] Address [address] [facility] [place] [address] Care Team Providers Care Manager Wireless Name Role Phone Julito Banuelos MD Primary Care Provider [phone] Julito Banuelos MD Unavailable Aleshia Henriquez RD Unavailable Unavailable Mary Kay Jones [facility] Unavailable Unavailable Susannah Blankenship [facility] Unavailable Carolyn Huynh [facility] Unavailable [phone] Vika Kevin APRN COMMUNICATIONS AND SIGNALS SUPERVISOR Unavailable + Marilyn Willard MD Unavailable Carie Varela DO Unavailable [phone] Maylin May NP Unavailable [phone] Marisa Hernandez RN Unavailable Unavailable Vilma Long MD Unavailable Yasmeen Pendleton [facility] Unavailable [phone] Cole George Unavailable Fletcher Russell Unavailable Unavailable Bautista Casey MD Unavailable Jasmyn Oliver CHW Unavailable [phone] Vika Kevni APRN COMMUNICATIONS AND SIGNALS SUPERVISOR Primary Care Prov ider Vika Kevin APRN, CNP Primary Care Prov ider Yasmeen Pendleton [facility] Unavailable [phone] Vika Kevin APRN COMMUNICATIONS AND SIGNALS SUPERVISOR Primary Care Prov ider Encounter Details Date Type Department Care Team (Late st Contact Info) Description 08/01/2019 MyC Medical Advice [address] [place] [phone] Mary Kay Jones, [facility] Social History Tobacco Use Types Packs/Day [...] on file Legal Sex Female 3:22 AM MEDIA DEVELOPER Gender Identity Not on file Sexual [...] Out COVID-19 12/04/2020 12/04/2020 12/05/2020 6:04 PM MEDIA DEVELOPER Assessment Noted Time PHQ-9 Depression Total Score: 8 07/18/20 19 12:06 PM CDT documented as of this encounter Care Teams Manager Wireless Relationship Specialty Start Date End Date Julito Banuelos MD [address] [place] [address]79 PCP - General Family Practice 09/12/15 09/23/21 Vika Kevin APRN [facility] [address] [place] [address] 40425 PCP - General Nurse Practitioner - Family 09/24/21 03/05/22 Vika Kevin APRN COMMUNICATIONS AND SIGNALS SUPERVISOR [address] [place] [address] 95386 PCP - General Nurse Practitioner - Family 03/18/22 06/18/22 Vika Kevin APRN COMMUNICATIONS AND SIGNALS SUPERVISOR [address] [place] [address] [phone] PCP - General Nurse Practitioner - Family 07/24/22 Juliot Banuelos MD [address] [place] [address] [phone] Assigned PCP 02/17/16 07/21/[address] [place] [address] 99896 Air Conditioning Mechanic Dietitian, Registered 04/14/19 Mary Kay Jones, [facility] Pharmacist 08/01/19 04/20/20 Susannah Blankenship, [facility] [address] [place] [address] [address] [place] [address] Pharmacist Pharmacist 08/08/19 04/15/21 Carolyn Huynh [facility] [address] [place], [place] 083467 Pharmacist Pharmacist 06/25/20 04/15/21 Vika Kevin APRN COMMUNICATIONS AND SIGNALS SUPERVISOR [address] [place] [address] 17772 Assigned PCP 07/22/20 11/16/24 Marilyn Willard MD [address] [facility] [address] [place] [address] Assigned Surgical Provider 08/17/20 08/16/24 Carie Varela DO [address] [place] [address] Assigned Heart and Vascular Provider 08/17/20 01/19/21 Maylin May, JENNY [address] [place], [place] [id number] Assigned Pediatric Specialist Provider 12/16/20 06/13/22 Marisa Rodrigues RN Clinic Tire Spotter 01/15/21 02/26/21 Vilma Long MD [address] [place] [address] Assigned Heart and Vascular Provider 01/20/21 07/20/21 Yasmeen Pendleton [facility] [address] [place] [address] Pharmacist Pharmacist 06/04/21 01/15/22 Cole George LISW Lead Tire Spotter 06/13/21 10/07/21 Fletcher Up Community Health Worker 06/13/21 09/12/21 Bautista Casey MD [address] [place] [address] Assigned Heart and Vascular Provider 07/21/21 01/16/23 Jasmyn Oliver CHW Community Health Worker 09/13/21 10/07/21 Yasmeen Pendleton [facility] [address] [place] [address] Assigned MTM Pharmacist 03/22/22 01/02/23 documented as of this encounter
--- OUTSIDE RECORDS SUMMARY | 2025-10-01 18:36 | XMS_ITS | Encounter Summary ---
Author Organization [place] Address [address] [facility] [place] [address] Care Team Providers Care Washing Machine Assembler Name Role Phone Julito Banuelos MD Primary Care Provider [phone] Julito Banuelos MD Unavailable Aleshia Henriquez RD Unavailable Unavailable Mary Kay Jones [facility] Unavailable Unavailable Susannah Blankenship [facility] Unavailable Carolyn Huynh [facility] Unavailable [phone] Vika Kevin APRN SWING SAW OPERATOR Unavailable + Marilyn Willard MD Unavailable Carie Varela DO Unavailable [phone] Maylin May NP Unavailable [phone] Marisa Hernandez RN Unavailable Unavailable Vilma Long MD Unavailable Yasmeen Pendleton [facility] Unavailable Cole George Unavailable Fletcher Russell Unavailable Unavailable Bautista Casey MD Unavailable Jasmyn Oliver CHW Unavailable [phone] Vika Kevin APRN SWING SAW OPERATOR Primary Care Prov ider Vika Kevin APRN [facility] Primary Care Prov ider Yasmeen Pendleton [facility] Unavailable + [phone] Vika Kevin APRN [facility] Primary Care Prov ider Encounter Details Date Type Department Care Team (Late st Contact Info) Description 03/28/2020 MyC Medical Advice [facility] [address] [phone] Panda Sibley MD [address] [place], [place] [phone] Social History Tobacco Use Types Packs/Day Years [...] on file Legal 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 Gender Identity Not on file Sexual [...] Out COVID-19 12/04/2020 12/04/2020 12/05/2020 6:04 PM ECONOMIC HISTORY TEACHER Assessment Noted Time PHQ-9 Depression Total Score: 8 07/18/20 19 12:06 PM CDT documented as of this encounter Care Teams Washing Machine Assembler Relationship Specialty Start Date End Date Julito Banuelos MD [address] [place] [id number] PCP - General Family Practice 09/12/15 09/23/21 Vika Kevin APRN SWING SAW OPERATOR [address] [place] [address] 26672 PCP - General Nurse Practitioner - Family 09/24/21 03/05/22 Vika Kevin APRN SWING SAW OPERATOR [address] [place] [address] [phone] PCP - General Nurse Practitioner - Family 03/18/22 06/18/22 Vika Kevin APRN SWING SAW OPERATOR [address] [place] [address] [phone] PCP - General Nurse Practitioner - Family 07/24/22 Julito Banuelos MD [address] [place] [address] [phone] Assigned PCP 02/17/16 07/21/[address] [place] [address]307 Hand Cultivator Dietitian, Registered 04/14/19 Mary Kay Jones [facility] Pharmacist 08/01/19 04/20/20 Susannah Blankenship [facility] [address] [place] [address] 8[address] [place], [place] 280565 Pharmacist Pharmacist 08/08/19 04/15/21 Carolyn Huynh [facility] [address] [place], [place] 137147 Pharmacist Pharmacist 06/25/20 04/15/21 Vika Kevin APRN SWING SAW OPERATOR [address] [place], [place] 710902 Assigned PCP 07/22/20 11/16/24 Marilyn Willard MD [address] [facility] [address] [place], [place] [address]165 Assigned Surgical Provider 08/17/20 08/16/24 Carie Varela DO [address] [place] [address] Assigned Heart and Vascular Provider 08/17/20 01/19/21 Maylin May NP [address] [place], [place] [id number] Assigned Pediatric Specialist Provider 12/16/20 06/13/22 Marisa Rodrigues, RN Clinic Scraper Meat 01/15/21 02/26/21 Vilma Long MD [address] [place] [address] Assigned Heart and Vascular Provider 01/20/21 07/20/21 Yasmeen Pendleton [facility] [address] [place] [address] Pharmacist Pharmacist 06/04/21 01/15/22 Cole George LISW Lead Scraper Meat 06/13/21 10/07/21 Fletcher Up Community Health Worker 06/13/21 09/12/21 Bautista Casey MD [address] [place] [address] Assigned Heart and Vascular Provider 07/21/21 01/16/23 Jasmyn Oliver CHW Community Health Worker 09/13/21 10/07/21 Yasmeen Pendleton [facility] [address] [place] [address] Assigned MTM Pharmacist 03/22/22 01/02/23 documented as of this encounter
--- OUTSIDE RECORDS SUMMARY | 2025-10-01 18:36 | XMS_ITS | Encounter Summary ---
Author Organization [place] Address [address] [place] [address] Care Team Providers Care Bridge Instructor Name Role Phone Andrew Lu MD Primary Care Provider [phone] Niko Resendiz MD Primary Care Provider Carlie Mac MD Primary Care Provide r Angella Mendieta MD Primary Care Provider Julito Banuelos MD Primary Care Provider [phone] Julito Banuelos MD Unavailable Julito Banuelos MD Unavailable Aleshia Henriquez RD Unavailable Unavailable Mary Kay Jones [facility] Unavailable Unavailable Susannah Blankenship [facility] Unavailable [phone] Carolyn Huynh [facility] Unavailable [phone] Vika Kevin APRN SALES MERCHANDISING SPECIALIST Unavailable + Marilyn Willard MD Unavailable [phone] Carie Varela DO Unavailable [phone] Maylin May NP Unavailable [phone] Marisa Rodrigues RN Unavailable Unavailable Vilma Long MD Unavailable + [phone] Yasmeen Pendleton [facility] Unavailable + [phone] Cole George Unavailable Fletcher Russell Unavailable Unavailable Bautista Casey MD Unavailable [phone] Jasmyn Oliver [facility] Unavailable [phone] Vika Kevin APRN [facility] Primary Care Prov ider Vika Kevin APRN [facility] Primary Care Prov ider Yasmeen Pendleton [facility] Unavailable [phone] Vika Kevin APRN [facility] Primary Care Prov ider Reason for Referral * Referral not Required - Closed Specialty Diagnoses / Procedures Referred By Contkateryna t Referred To Contact Diagnoses CAD (coronary artery disease) Andrew Lu MD XXX RETIRED XXX [address] [place] [phone] Phone: tel: fax: [facility] [address] [facility] [address] [facility] [place] [address] Phone: tel: fax: Referral ID Status Reason Start Date Expiration Date Visits Re quested Visits Authorized [id number] Closed 01/11/2013 07/10/2013 1 1 Comments Your provider has referred you to: [facility]: [facility] Heart [place] [phone] Please be aware that coverage of these [...] where they were done to arrange for shrimp picker prior to your scheduled appointment. Any new CT, MRI or other procedures ordered by your specialist must be performed at a [facility] facility or coordinated by your clinic's referral office. >> List of current medications >> This referral request >> Any documents/labs given to you for this referral Reason for Visit * Reason Onset Date Comments Referral 01/11/2013 Encounter Details Date Type Department Care Team (Late st Contact Info) Description 01/11/2013 MyC Medical Advice [address] [phone] Andrew Lu MD XXX RETIRED XXX [address] [place] [phone] Referral Social History Tobacco Use Types [...] on file Legal Sex Female 3:22 AM CREELER Gender Identity Not on file Sexual Orientation [...] Coronary atherosclerosis of unspecified type of vessel, [place] or graft documented in this encounter Additional Health Concerns Infection Onset Date Last Indicated Resolved Time Rule Out COVID-19 07/25/2020 07/25/2020 07/26/2020 3:02 PM CDT Rule Out COVID-19 12/04/2020 12/04/2020 12/05/2020 6:04 PM CREELER documented as of this encounter Care Teams Bridge Instructor Relationship Specialty Start Date End Date Andrew Lu MD XXX RETIRED XXX [address] [place] [phone] PCP - General 12/10/01 01/10/14 Niko Resendiz MD [address] [address] PCP - General Internal Medicine 01/11/14 01/29/14 Carlie Mac MD [address] [place] [address] PCP - General Pediatrics 01/30/14 07/17/15 Angella Mendieta MD [address] [place] [address] PCP - General Family Practice 07/18/15 09/11/15 Julito Banuelos MD [address] [place] [address] PCP - General Family Practice 09/12/15 09/23/21 Julito Banuelos MD [address] [place] [address] PCP - Assigned PCP 02/17/16 12/28/18 Vika Kevin APRN SALES MERCHANDISING SPECIALIST [address] [place] [address] PCP - General Nurse Practitioner - Family 09/24/21 03/05/22 Vika Kevin APRN SALES MERCHANDISING SPECIALIST [address] [place] [address] PCP - General Nurse Practitioner - Family 03/18/22 06/18/22 Vika Kevin APRN SALES MERCHANDISING SPECIALIST [address] [place] [address] 577662 PCP - General Nurse Practitioner - Family 07/24/22 Julito Banuelos MD [address] [place] [address] 320892 Assigned PCP 02/17/16 07/21/20 Aleshia Henriquez, DAVE [address] [place] [address] Slurry Plant Operator Dietitian, Registered 04/14/19 Mary Kay Jones, [facility] Pharmacist 08/01/19 04/20/20 Susannah Blankenship, [facility] [address] [place] [address] [address] [place], [place] 615725 Pharmacist Pharmacist 08/08/19 04/15/21 [facility] [address] [place], [place] [address] Pharmacist Pharmacist 06/25/20 04/15/21 Vika Kevin APRN SALES MERCHANDISING SPECIALIST [address] [place] [address] [phone] Assigned PCP 07/22/20 11/16/24 Marilyn Willard MD [address] [place] [address] [address] [place], [place] 177885 Assigned Surgical Provider 08/17/20 08/16/24 Carie Varela DO [address] [place], [place] 4669[address] Assigned Heart and Vascular Provider 08/17/20 01/19/21 Maylin May NP [address] [place] [address] Assigned Pediatric Specialist Provider 12/16/20 06/13/22 Marisa Rodrigues, RN Clinic Marketing Finance Specialist 01/15/21 02/26/21 Vilma Long MD [address] [place] [address] Assigned Heart and Vascular Provider 01/20/21 07/20/21 Yasmeen Pendleton [facility] [address] [place] [address] Pharmacist Pharmacist 06/04/21 01/15/22 Cole George LISW Lead Marketing Finance Specialist 06/13/21 10/07/21 Fletcher Up Community Health Worker 06/13/21 09/12/21 Bautista Casey MD [address] [place] [address] Assigned Heart and Vascular Provider 07/21/21 01/16/23 Jasmyn Oliver CHW Community Health Worker 09/13/21 10/07/21 Yasmeen Pendleton [facility] [address] [place], [place] [address] Assigned MTM Pharmacist 03/22/22 01/02/23 documented as of this encounter
--- OUTSIDE RECORDS SUMMARY | 2025-10-01 18:36 | XMS_ITS | Encounter Summary ---
Author Organization [place] Address [address] [facility] [place] [address] Care Team Providers Care Vice President Of Academic Affairs Name Role Phone Andrew Lu MD Primary Care Provider [phone] Niko Resendiz MD Primary Care Provider Carlie Mac MD Primary Care Provide r Angella Mendieta MD Primary Care Provider Julito Banuelos MD Primary Care Provider [phone] Julito Banuelos MD Unavailable Julito Banuelos MD Unavailable Aleshia Henriquez RD Unavailable Unavailable Mary Kay Jones [facility] Unavailable Unavailable Susannah Blankenship [facility] Unavailable [phone] Carolyn Huynh [facility] Unavailable [phone] Vika Kevin APRN SOLUTIONS ARCHITECT Unavailable + Marilyn Willard MD Unavailable [phone] Carie Varela DO Unavailable [phone] Maylin May NP Unavailable [phone] Marisa Rodrigues RN Unavailable Unavailable Vilma Long MD Unavailable + [phone] Yasmeen Pendleton [facility] Unavailable + [phone] Cole George Unavailable Fletcher Russell Unavailable Unavailable Bautista Casey MD Unavailable DemetriusJasmyn wright [facility] Unavailable [phone] Vika Kevin APRN [facility] Primary Care Prov ider Vika Kevin APRN [facility] Primary Care Prov ider Yasmeen Pendleton [facility] Unavailable + [phone] Vika Kevin APRN [facility] Primary Care Prov ider Encounter Details Date Type Department Care Team (Late st Contact Info) Description 09/28/[address] [phone] Veronica [place] Social History Tobacco Use Types Packs/Day Years [...] file Legal 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 Gender Identity Not on file Sexual [...] COVID-19 12/04/2020 12/04/2020 12/05/2020 6:04 PM PAINT SUPERVISOR documented as of this encounter Care Teams Vice President Of Academic Affairs Relationship Specialty Start Date End Date Andrew Lu MD XXX RETIRED XXX [address] [place] [phone] PCP - General 12/10/01 01/10/14 Niko Resendiz MD [address] [place] [address]704 PCP - General Internal Medicine 01/11/14 01/29/14 Carlie Mac MD [address] [place] [address] PCP - General Pediatrics 01/30/14 07/17/15 Angella Mendieta MD [address] [place] [address] PCP - General Family Practice 07/18/15 09/11/15 Julito Banuelos MD [address] [place] [address] PCP - General Family Practice 09/12/15 09/23/21 Julito Banuelos MD [address] [place] [address] PCP - Assigned PCP 02/17/16 12/28/18 Vika Kevin APRN SOLUTIONS ARCHITECT [address] [place] [address] 79265 PCP - General Nurse Practitioner - Family 09/24/21 03/05/22 Vika Kevin APRN SOLUTIONS ARCHITECT [address] [place] [address]76 PCP - General Nurse Practitioner - Family 03/18/22 06/18/22 Vika Kevin APRN SOLUTIONS ARCHITECT [address] [place] [address] 125442 PCP - General Nurse Practitioner - Family 07/24/22 Julito Banuelos MD [address] [place] [address] 417962 Assigned PCP 02/17/16 07/21/[address] [place] [address] Heading Matcher And Assembler Dietitian, Registered 04/14/19 Mary Kay Jones, [facility] Pharmacist 08/01/19 04/20/20 [facility] [address] [place] [address] [address]12 [place], [place] 556[address] Pharmacist Pharmacist 08/08/19 04/15/21 [facility] [address] [place], [place] [address] Pharmacist Pharmacist 06/25/20 04/15/21 Vika Kevin APRN SOLUTIONS ARCHITECT [address] [place] [address] 765812 Assigned PCP 07/22/20 11/16/24 Marilyn Willard MD [address] [place] [address] [address] [place] [address] Assigned Surgical Provider 08/17/20 08/16/24 Carie Varela DO [address] [place], [place] 786555 Assigned Heart and Vascular Provider 08/17/20 01/19/21 Maylin May NP [address] [place], [place] [id number] Assigned Pediatric Specialist Provider 12/16/20 06/13/22 Marisa Rodrigues, RN Clinic Pastry Baker 01/15/21 02/26/21 Vilma Long MD [address] [place] [address] Assigned Heart and Vascular Provider 01/20/21 07/20/21 [facility] [address] [place] [address] Pharmacist Pharmacist 06/04/21 01/15/22 Cole George LISW Lead Pastry Baker 06/13/21 10/07/21 Fletcher Up Community Health Worker 06/13/21 09/12/21 Bautista Casey MD [address] [place] [address] Assigned Heart and Vascular Provider 07/21/21 01/16/23 Jasmyn Oliver CHW Community Health Worker 09/13/21 10/07/21 [facility] [address] [place] [address] 454885 Assigned MTM Pharmacist 03/22/22 01/02/23 documented as of this encounter
--- OUTSIDE RECORDS SUMMARY | 2025-10-01 18:36 | XMS_ITS | Encounter Summary ---
Author Organization [place] Address [address] [facility] [place] [address] Care Team Providers Care Vault Clerk Name Role Phone Julito Banuelos MD Primary Care Provider [phone] Julito Banuelos MD Unavailable Aleshia Henriquez RD Unavailable Unavailable Susannah Blankenship [facility] Unavailable [phone] Carolyn Huynh [facility] Unavailable [phone] Vika Kevin APRN OPERATIONS OFFICER TRUST DEPARTMENT Unavailable + Marilyn Willard MD Unavailable [phone] Carie Varela DO Unavailable [phone] Maylin May NP Unavailable [phone] Marisa Hernandez RN Unavailable Unavailable Vilma Long MD Unavailable + [phone] Yasmeen Pendleton [facility] Unavailable Cole George Unavailable Fletcher Russell Unavailable Unavailable Bautista Casey MD Unavailable [phone] Jasmyn Oliver Unavailable [phone] Vika Kevin APRN OPERATIONS OFFICER TRUST DEPARTMENT Primary Care Prov ider Vika Kevin APRN [facility] Primary Care Prov ider Yasmeen Pendleton [facility] Unavailable [phone] Vika Kevin APRN [facility] Primary Care Prov ider Encounter Details Date Type Department Care Team (Late st Contact Info) Description 05/08/2020 MyC Medical Advice [address] [place] [address] Susannah Blankenship, [facility] [address] [facility] 812 [place] [address] Social History Tobacco Use Types Packs/Day Years [...] on file 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 Gender Identity Not on file Sexual Orientation [...] Out COVID-19 12/04/2020 12/04/2020 12/05/2020 6:04 PM AERIAL SPRAYER Assessment Noted Time PHQ-9 Depression Total Score: 8 07/18/20 19 12:06 PM CDT documented as of this encounter Care Teams Vault Clerk Relationship Specialty [place] [address] [place] [address] PCP - General Family Practice 09/12/15 09/23/21 Vika Kevin APRN OPERATIONS OFFICER TRUST DEPARTMENT [address] [place] [address] PCP - General Nurse Practitioner - Family 09/24/21 03/05/22 Vika Kevin APRN OPERATIONS OFFICER TRUST DEPARTMENT [address] [place] [address] PCP - General Nurse Practitioner - Family 03/18/22 06/18/22 Vika Kevin APRN OPERATIONS OFFICER TRUST DEPARTMENT [address] [place] [address] PCP - General Nurse Practitioner - Family 07/24/22 Julito Banuelos MD [address] [place] [address] [phone] Assigned PCP 02/17/16 07/21/[address] [place] [address] Lathe Sander Dietitian, Registered 04/14/19 Susannah Blankenship, [facility] [address] [place] [address] 812 [place] [address] Pharmacist Pharmacist 08/08/19 04/15/21 Carolyn Huynh [facility] [address] [place] [address] Pharmacist Pharmacist 06/25/20 04/15/21 Vkia Kevin APRN OPERATIONS OFFICER TRUST DEPARTMENT [address] [place] [address] Assigned PCP 07/22/20 11/16/24 Marilyn Willard MD [address] [place] [address] [address] [place] [address] Assigned Surgical Provider 08/17/20 08/16/24 Carie Varela DO [address] [place] [address] Assigned Heart and Vascular Provider 08/17/20 01/19/21 Maylin May NP [address] [place] [address] Assigned Pediatric Specialist Provider 12/16/20 06/13/22 Marisa Rodrigues, RN Clinic Priming Machine Operator 01/15/21 02/26/21 Vilma Long MD [address] [place] [address] Assigned Heart and Vascular Provider 01/20/21 07/20/21 Yasmeen Pendleton [facility] [address] [place] [address] [phone] Pharmacist Pharmacist 06/04/21 01/15/22 Cole George LISW Lead Priming Machine Operator 06/13/21 10/07/21 Fletcher Up Community Health Worker 06/13/21 09/12/21 Bautista Casey MD [address] [place] [address] Assigned Heart and Vascular Provider 07/21/21 01/16/23 Jasmyn Oliver CHW Community Health Worker 09/13/21 10/07/21 Yasmeen Pendleton [facility] [address] [place] [address] Assigned MTM Pharmacist 03/22/22 01/02/23 documented as of this encounter
--- OUTSIDE RECORDS SUMMARY | 2025-10-01 18:36 | XMS_ITS | Encounter Summary ---
Author Organization [place] Address [address] [facility] [place] [address] Care Team Providers Care Cold Rolling Coordinator Name Role Phone Andrew Lu MD Primary Care Provider [phone] Niko Resendiz MD Primary Care Provider Carlie Mac MD Primary Care Provide r Angella Mendieta MD Primary Care Provider Julito Banuelos MD Primary Care Provider [phone] Julito Banuelos MD Unavailable Julito Banuelos MD Unavailable Aleshia Henriquez RD Unavailable Unavailable Mary Kay Jones [facility] Unavailable Unavailable Susannah Blankenshpi [facility] Unavailable [phone] Carolyn Huynh [facility] Unavailable [phone] Vika Kevin APRN BIG DATA HADOOP DEVELOPER Unavailable + Marilyn Willard MD Unavailable [phone] Carie Varela DO Unavailable [phone] Maylin May NP Unavailable [phone] Marisa Rodrigues RN Unavailable Unavailable Vilma Long MD Unavailable + [phone] Yasmeen Pendleton [facility] Unavailable [phone] Cole George Unavailable Fletcher Russell Unavailable Unavailable Bautista Casey MD Unavailable [phone] AnnyJasmyn tracey [facility] Unavailable [phone] Vika Kevin APRN [facility] Primary Care Prov ider Vika Kevin APRN [facility] Primary Care Prov ider Yasmeen Pendleton [facility] Unavailable [phone] [facility] Primary Care Prov ider Encounter Details Date Type Department Care Team (Late st Contact Info) Description 06/28/2013 MyC Medical Advice [address] [address] Denis Rojas MD [address] [place] [phone] Social History Tobacco Use Types Packs/Day Years [...] file 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 Gender Identity Not on file Sexual [...] COVID-19 12/04/2020 12/04/2020 12/05/2020 6:04 PM ENGINEERING EQUIPMENT OPERATOR documented as of this encounter Care Teams Cold Rolling Coordinator Relationship Specialty Start Date End Date Andrew Lu MD XXX RETIRED XXX [address] [place] [phone] PCP - General 12/10/01 01/10/14 Niko Resendiz MD [address] [place] [address] PCP - General Internal Medicine 01/11/14 01/29/14 Carlie Mac MD [address] [place] [address] PCP - General Pediatrics 01/30/14 07/17/15 Angella Mendieta MD [address] [place] [address] PCP - General Family Practice 07/18/15 09/11/15 Julito Banuelos MD [address] [place] [address]70 PCP - General Family Practice 09/12/15 09/23/21 Julito Banuelos MD [address] [place] [address]161 PCP - Assigned PCP 02/17/16 12/28/18 Vika Kevin APRN BIG DATA HADOOP DEVELOPER [address] [place] [address]1187 PCP - General Nurse Practitioner - Family 09/24/21 03/05/22 Vika Kevin APRN BIG DATA HADOOP DEVELOPER [address] [place] [address] PCP - General Nurse Practitioner - Family 03/18/22 06/18/22 Vika Kevin APRN BIG DATA HADOOP DEVELOPER [address] [place] [address] [phone] PCP - General Nurse Practitioner - Family 07/24/22 Julito Banuelos MD [address] [place] [address] 165322 Assigned PCP 02/17/16 07/21/[address] [place] [address] Security Software Engineer Dietitian, Registered 04/14/19 Mary Kay Jones, [facility] Pharmacist 08/01/19 04/20/20 Susannah Blankenship, [facility] [address] [facility] [address] [place], [place] [address] Pharmacist Pharmacist 08/08/19 04/15/21 Carolyn Huynh, [facility] [address] [place], [place] 322497 Pharmacist Pharmacist 06/25/20 04/15/21 Vika Kevin, JAIME BIG DATA HADOOP DEVELOPER [address] [place] [address] 246942 Assigned PCP 07/22/20 11/16/24 Marilyn Willard MD [address] [facility] [address] [place], [place] 679905 Assigned Surgical Provider 08/17/20 08/16/24 Carie Varela DO [address] [place] [address] Assigned Heart and Vascular Provider 08/17/20 01/19/21 Maylin May NP [address] [facility] [address] Assigned Pediatric Specialist Provider 12/16/20 06/13/22 Marisa Rodrigues, RN Clinic Mediator 01/15/21 02/26/21 Vilma Long MD [address] [place] [address] Assigned Heart and Vascular Provider 01/20/21 07/20/21 [facility] [address] [place] [address] Pharmacist Pharmacist 06/04/21 01/15/22 Cole George LISW Lead Mediator 06/13/21 10/07/21 Fletcher Up Community Health Worker 06/13/21 09/12/21 Bautista Casey MD [address] [place] [address] Assigned Heart and Vascular Provider 07/21/21 01/16/23 Jasmyn Oliver CHW Community Health Worker 09/13/21 10/07/21 [facility] [address] [place] [address] Assigned MTM Pharmacist 03/22/22 01/02/23 documented as of this encounter
--- OUTSIDE RECORDS SUMMARY | 2025-10-01 18:36 | XMS_ITS | Encounter Summary ---
Author Organization [place] Address [address] [facility] [place] [address] Care Team Providers Care Curb Worker Name Role Phone Aleshia Henriquez RD Unavailable Unavailable Vika Kevin APRN [facility] Unavailable + Marilyn Willard MD Unavailable Maylin May NP Unavailable [phone] Yasmeen Pendleton [facility] Unavailable Bautista Casey MD Unavailable Vika Kevin APRN [facility] Primary Care Prov ider Vika Kevin APRN [facility] Primary Care Prov ider Yasmeen Pendleton [facility] Unavailable [phone] Vika Kevin APRN [facility] Primary Care Prov ider Encounter Details Date Type Department Care Team (Late st Contact Info) Description 10/17/2021 [facility] Medical Advice [address] [phone] Yasmeen Pendleton, [facility] [address] [place], [place] [address] Social History Tobacco Use Types Packs/Day Years [...] and Family Not on file 06/14/2021 Attends [employer] Not on file 06/14 Active Member [...] place to sleep or slept in a nursing home (including now)? 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 MOLD HOISTER Gender Identity Not on file Sexual Orientation [...] COVID-19? No / Unsure 09/25/2021 11:59 AM MOLD HOISTER documented as of this encounter Plan of Treatment Not on file documented as of this encounter Visit Diagnoses Not on filedocumented in this encounter Additional Health Concerns Assessment Noted Time PHQ-9 Depression Total Score: 10 04/29/ 021 3:56 PM CDT documented as of this encounter Care Teams Curb Worker Relationship Specialty Start Date End Date Vika Kevin APRN CONSULTANT RN [address] [place] [address] PCP - General Nurse Practitioner - Family 09/24/21 03/05/22 Vika Kevin APRN CONSULTANT RN [address] [place] [address] 227[address] PCP - General Nurse Practitioner - Family 03/18/22 06/18/22 Vika Kevin APRN CONSULTANT RN [address] [place] [address] 407862 PCP - General Nurse Practitioner - Family 07/24/[address] Light Servicer Dietitian, Registered 04/14/19 Vika Kevin APRN CONSULTANT RN [address] [place] [address] Assigned PCP 07/22/20 11/16/24 Marilyn Willard MD [address] [place] [address] Assigned Surgical Provider 08/17/20 08/16/24 [place] [address] [place] [address] Assigned Pediatric Specialist Provider 12/16/20 06/13/22 Yasmeen Pendleton RPH [address] [place] [address] Pharmacist Pharmacist 06/04/21 01/15/22 Bautista Casey MD [address] [place] [address] Assigned Heart and Vascular Provider 07/21/21 01/16/23 Yasmeen Pendleton [facility] [address] [place] [address] Assigned MTM Pharmacist 03/22/22 01/02/23 documented as of this encounter
--- OUTSIDE RECORDS SUMMARY | 2025-10-01 18:36 | XMS_ITS | Encounter Summary ---
Author Organization [place] Address [address] [facility] [place] [address] Care Team Providers Care Lens Inspector Name Role Phone Julito Banuelos MD Primary Care Provider [phone] Julito Banuelos MD Unavailable Julito Banuelos MD Unavailable Aleshia Henriquez RD Unavailable Unavailable Mary Kay Jones [facility] Unavailable Unavailable Susannah Blankenship [facility] Unavailable Carolyn Huynh [facility] Unavailable Vika Kevin APRN STYLE ADVISOR Unavailable + Marilyn Wlilard MD Unavailable Carie Varela DO Unavailable [phone] Maylin May NP Unavailable [phone] Marisa Rodrigues RN Unavailable Unavailable Vilma Long MD Unavailable Yasmeen Pendleton [facility] Unavailable Cole George Unavailable Fletcher Russell Unavailable Unavailable Bautista Casey MD Unavailable [phone] aJsmyn Oliver Unavailable [phone] Vika Kevin APRN [facility] Primary Care Prov ider Kevin Vika Delgado JAIME [facility] Primary Care Prov ider Yasmeen Pendleton [facility] Unavailable + [phone] [place] Vika Delgado JAIME [facility] Primary Care Prov ider Reason for Visit * Reason Onset Date Comments MyChart Communication 11/01/2018 Encounter Details Date Type Department Care Team (Late st Contact Info) Description 11/01/2018 MyC Medical Advice [address] [address] [place] [address] [place] [address] MyChart Communication Social History Tobacco Use [...] on file Legal Sex Female 3:22 AM DIESEL ENGINE ASSEMBLER Gender Identity Not on file Sexual Orientation Not on file Occupation Industry Job Start Date Job End Date Not on file Not on file Not on file Not on file documented as of this encounter Miscellaneous Notes * Telephone Encounter - Araseli Briceño RN - 11/16/2018 8:56 AM CST Urine is in process. YUE Mcdowell, RN, PHN [facility] Triage ) [phone] EL ENGINE ASSEMBLER * Telephone Encounter - Leann Massey - 11/16/2018 8:28 AM CST The patient called and said her Ty is bringing in her urine. She wanted it noted that she is on an antibiotic right now. Leann Massey Patient Teleprinter EL ENGINE ASSEMBLER * Telephone Encounter - Araseli Briceño RN - 11/02/2018 2:37 PM CST Mychart note sent to patient. YUE Mcdowell, RN, PHN [facility]) [phone] EL ENGINE ASSEMBLER * Telephone Encounter - Julito Banuelos MD - 11/02/2018 2:17 PM CST Please review with patient Can certainly try prevagen, have not seen neurologist recommend to date? EL ENGINE ASSEMBLER * Telephone Encounter - Araseli Briceño RN - 11/02/2018 7:55 AM CST Forwarded to TS. Please review patient's Xt[employer] Media[employer] message and advise. Araseli Briceño RN, BS, PHN EL ENGINE ASSEMBLER documented in this encounter Plan of Treatment Not on file documented as of this encounter Visit Diagnoses Not on filedocumented in this encounter Additional Health Concerns Infection Onset Date Last Indicated Resolved Time Rule Out COVID-19 07/25/2020 07/25/2020 07/26/2020 3:02 PM CDT Rule Out COVID-19 12/04/2020 12/04/2020 12/05/2020 6:04 PM DIESEL ENGINE ASSEMBLER Assessment Noted Time PHQ-9 Depression Total Score: 4 04/27/20 18 7:12 AM CDT documented as of this encounter Care Teams Lens Inspector Relationship Specialty [place] [address] [place] [address] PCP - General Family Practice 09/12/15 09/23/21 Julito Banuelos MD [address] [place] [address] PCP - Assigned PCP 02/17/16 12/28/18 Vika Kevin APRN STYLE ADVISOR [address] [place] [address] PCP - General Nurse Practitioner - Family 09/24/21 03/05/22 Vika Kevin APRN STYLE ADVISOR [address] [place] [address] PCP - General Nurse Practitioner - Family 03/18/22 06/18/22 Vika Kevin APRN STYLE ADVISOR [address] [place] [address] 865332 PCP - General Nurse Practitioner - Family 07/24/22 Julito Banuelos MD [address] [place] [address] 970202 Assigned PCP 02/17/16 07/21/[address] [place] [address] Community Health Program Representative Dietitian, Registered 04/14/19 Mary Kay Jones [facility] Pharmacist 08/01/19 04/20/20 Susannah Blankenship [facility] [address] [place] [address] 8[address] [place] [address] Pharmacist Pharmacist 08/08/19 04/15/21 Carolyn Huynh [facility] [address] [place], [place] [address] Pharmacist Pharmacist 06/25/20 04/15/21 KevinVika, CORRUGATOR 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 STYLE ADVISOR [address] [place], [place] 460332 Assigned PCP 07/22/20 11/16/24 Marilyn Willard MD [address] [facility] [address] [place], [place] [address] Assigned Surgical Provider 08/17/20 08/16/24 Carie Varela DO [address] [place] [address] Assigned Heart and Vascular Provider 08/17/20 01/19/21 Maylin May NP [address] [place], [place] 517[address] Assigned Pediatric Specialist Provider 12/16/20 06/13/22 Marisa Rodrigues, RN Clinic Physical Director 01/15/21 02/26/21 Vilma Long MD [address] [place] [address] Assigned Heart and Vascular Provider 01/20/21 07/20/21 Yasmeen Pendleton [facility] [address] [place] [address] Pharmacist Pharmacist 06/04/21 01/15/22 Cole George LISW Lead Physical Director 06/13/21 10/07/21 Fletcher Up Community Health Worker 06/13/21 09/12/21 Bautista Casey MD [address] [place] [address] Assigned Heart and Vascular Provider 07/21/21 01/16/23 Jasmyn Oliver CHW Community Health Worker 09/13/21 10/07/21 Yasmeen Pendleton [facility] [address] [place] [address] Assigned MTM Pharmacist 03/22/22 01/02/23 documented as of this encounter
--- OUTSIDE RECORDS SUMMARY | 2025-10-01 18:36 | XMS_ITS | Encounter Summary ---
Author Organization [place] Address [address] [place] [address] Care Team Providers Care Seismology Technical Officer Name Role Phone Julito Banuelos MD Primary Care Provider [phone] Julito Banuelos MD Unavailable Aleshia Henriquez RD Unavailable Unavailable Mary Kay Jones [facility] Unavailable Unavailable Susannah Blankenship [facility] Unavailable [phone] Carolyn Huynh [facility] Unavailable [phone] Vika Kevin APRN BREAKER MECHANIC Unavailable + Marilyn Willard MD Unavailable [phone] Carie Varela DO Unavailable [phone] Maylin May NP Unavailable [phone] Marisa Hernandez RN Unavailable Unavailable Vilma Long MD Unavailable Yasmeen Pendleton [facility] Unavailable Cole George Unavailable Fletcher Russell Unavailable Unavailable Bautista Casey MD Unavailable [phone] Jasmyn Oliver CHW Unavailable [phone] Vika Kevin APRN BREAKER MECHANIC Primary Care Prov ider Vika Kevin APRN [facility] Primary Care Prov ider Yasmeen Pendleton [facility] Unavailable + [phone] Vika Kevin APRN [facility] Primary Care Prov ider Reason for Visit * Reason Onset Date Comments Refill Request 09/12/2019 Encounter Details Date Type Department Care Team (Late st Contact Info) Description 09/12/2019 MyC Refill [facility] [address] [facility] [address] [place] [phone] Carie Varela DO [address] [place], [place] [address] Refill Request Social History Tobacco Use Types [...] on file Legal Sex 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 Gender Identity Not on file Sexual [...] Unspecified essential hypertension 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 documented in this encounter Additional Health Concerns Infection Onset Date Last Indicated Resolved Time Rule Out COVID-19 07/25/2020 07/25/2020 07/26/2020 3:02 PM CDT Rule Out COVID-19 12/04/2020 12/04/2020 12/05/2020 6:04 PM LOCK OPERATOR Assessment Noted Time PHQ-9 Depression Total Score: 8 07/18/20 19 12:06 PM CDT documented as of this encounter Care Teams Seismology Technical Officer Relationship Specialty Start Date End Date Julito Banuelos MD [address] [place] [address] PCP - General Family Practice 09/12/15 09/23/21 Vika Kevin APRN BREAKER MECHANIC [address] [place] [address] 728132 PCP - General Nurse Practitioner - Family 09/24/21 03/05/22 Vika Kevin APRN BREAKER MECHANIC [address] [place] [address] 407202 PCP - General Nurse Practitioner - Family 03/18/22 06/18/22 Vika Kevin APRN BREAKER MECHANIC [address] [place] [address] 070082 PCP - General Nurse Practitioner - Family 07/24/22 Julito Banuelos MD [address] [place] [address] 236202 Assigned PCP 02/17/16 07/21/[address] [place] [address] Equal Opportunity Representative Dietitian, Registered 04/14/19 Mary Kay Jones [facility] Pharmacist 08/01/19 04/20/20 Susannah Blankenship [facility] [address] [place] [address] 8[address] [place], [place] [address] Pharmacist Pharmacist 08/08/19 04/15/21 Carolyn Huynh [facility] [address] [place], [place] [address] Pharmacist Pharmacist 06/25/20 04/15/21 KevinVikalotte, SENIOR HEALTH PHYSICS TECHNICIAN BREAKER MECHANIC [address] [place], [place] 503292 Assigned PCP 07/22/20 11/16/24 Marilyn Willard MD [address] [facility] [address] [place], [place] [address] Assigned Surgical Provider 08/17/20 08/16/24 Carie Varela DO [address] [place] [address] Assigned Heart and Vascular Provider 08/17/20 01/19/21 Maylin May NP [address] [place], [place] [id number] Assigned Pediatric Specialist Provider 12/16/20 06/13/22 Marisa Rodrigues, RN Clinic Animation Director 01/15/21 02/26/21 Vilma Long MD [address] [place] [address] Assigned Heart and Vascular Provider 01/20/21 07/20/21 Yasmeen Pendleton [facility] [address] [place] [address] Pharmacist Pharmacist 06/04/21 01/15/22 Cole George LISW Lead Animation Director 06/13/21 10/07/21 Fletcher Up Community Health Worker 06/13/21 09/12/21 Bautista Casey MD [address] [place] [address] Assigned Heart and Vascular Provider 07/21/21 01/16/23 Jasmyn Oliver CHW Community Health Worker 09/13/21 10/07/21 Yasmeen Pendleton [facility] [address] [place] [address] Assigned MTM Pharmacist 03/22/22 01/02/23 documented as of this encounter
--- OUTSIDE RECORDS SUMMARY | 2025-10-01 18:36 | XMS_ITS | Encounter Summary ---
Author Organization [place] Address [address] [place] [address] Care Team Providers Care Spring Tier Name Role Phone Aleshia Henriquez RD Unavailable Unavailable Vika Kevin APRN CHYRON OPERATOR Unavailable + Marilyn Willard MD Unavailable [phone] Maylin May NP Unavailable [phone], Bautista Bell MD Unavailable [phone] Vika Kevin APRN [facility] Primary Care Prov ider Vika Kevin APRN [facility] Primary Care Prov ider Yasmeen Pendleton [facility] Unavailable + [phone] Vika Kevin APRN [facility] Primary Care Prov ider Encounter Details Date Type Department Care Team (Late st Contact Info) Description 02/12/2022 MyC Medical Advice [facility] [place] [address] [place] [address] Marilyn Chaves Social History Tobacco [...] and Family Not on file 06/14/2021 Attends [employer] Not on file 06/14 Active Member [...] place to sleep or slept in a intermediate (including now)? 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 Gender Identity Not on file Sexual [...] documented as of this encounter Care Teams Spring Tier Relationship Specialty Start Date End Date Vika Kevin APRN CHYRON OPERATOR [address] [place] [address] PCP - General Nurse Practitioner - Family 09/24/21 03/05/22 Vika Kevin APRN CHYRON OPERATOR [address] [place] [address] PCP - General Nurse Practitioner - Family 03/18/22 06/18/22 Vika Kevin APRN CHYRON OPERATOR [address] [place] [address] 26571 PCP - General Nurse Practitioner - Family 07/24/[address] Compliance Nurse Dietitian, Registered 04/14/19 Vika Kevin APRN CHYRON OPERATOR [address] [place] [address] 45[address] Assigned PCP 07/22/20 11/16/24 Marilyn Willard MD [address] [place] [address] Assigned Surgical Provider 08/17/20 08/16/24 Maylin May, JENNY [address] [place] [address] Assigned Pediatric Specialist Provider 12/16/20 06/13/22 Bautista Casey MD [address] [place] [address] Assigned Heart and Vascular Provider 07/21/21 01/16/23 Yasmeen Pendleton [facility] [address] [place] [address] Assigned MTM Pharmacist 03/22/22 01/02/23 documented as of this encounter
--- OUTSIDE RECORDS SUMMARY | 2025-10-01 18:36 | XMS_ITS | Encounter Summary ---
Author Organization [place] Address [address] [place] [address] Care Team Providers Care Laborer High Density Press Name Role Phone Julito Banuelos MD Primary Care Provider [phone] Julito Banuelos MD Unavailable Aleshia Henriquez RD Unavailable Unavailable Mary Kay Jones [facility] Unavailable Unavailable Susannah Blankenship [facility] Unavailable Carolyn Huynh [facility] Unavailable [phone] Vika Kevin APRN EXPLORATION ENGINEER Unavailable + Marilyn Willard MD Unavailable [phone] Carie Varela DO Unavailable [phone] Maylin May NP Unavailable [phone] Marisa Hernandez RN Unavailable Unavailable Vilma Long MD Unavailable Yasmeen Pendleton [facility] Unavailable Cole George Unavailable Fletcher Russell Unavailable Unavailable Bautista Casey MD Unavailable Jasmyn Oliver CHW Unavailable [phone] Vika Kevin APRN EXPLORATION ENGINEER Primary Care Prov ider Vika Kevin APRN [facility] Primary Care Prov ider Yasmeen Pendleton [facility] Unavailable + [phone] Vika Kevin APRN [facility] Primary Care Prov ider Reason for Visit * Reason Comments Medication Refill Encounter Details Date Type Department Care Team (Late st Contact Info) Description 04/20/[address] [phone] [place] [address] [place] [address] [phone] Medication Refill Social History Tobacco Use Types [...] on file Legal 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 Gender Identity Not on file Sexual [...] pharmacy Panda Bradshaw RN [facility] Triage documented in this encounter Plan of Treatment Not on file documented as of this encounter Visit Diagnoses Diagnosis Hypothyroidism, unspecified type documented in this encounter Additional Health Concerns Infection Onset Date Last Indicated Resolved Time Rule Out COVID-19 07/25/2020 07/25/2020 07/26/2020 3:02 PM CDT Rule Out COVID-19 12/04/2020 12/04/2020 12/05/2020 6:04 PM FLIGHT SOFTWARE TEST ENGINEER Assessment Noted Time PHQ-9 Depression Total Score: 8 07/18/20 19 12:06 PM CDT documented as of this encounter Care Teams Laborer High Density Press Relationship Specialty Start Date End Date Julito Banuelos MD [address] [place] [address] PCP - General Family Practice 09/12/15 09/23/21 Vika Kevin APRN EXPLORATION ENGINEER [address] [place] [address] 28688 PCP - General Nurse Practitioner - Family 09/24/21 03/05/22 Vika Kevin APRN EXPLORATION ENGINEER [address] [place] [address] 23033 PCP - General Nurse Practitioner - Family 03/18/22 06/18/22 Vika Kevin APRN EXPLORATION ENGINEER [address] [place] [address]690 PCP - General Nurse Practitioner - Family 07/24/22 Julito Banuelos MD [address] [place] [address] Assigned PCP 02/17/16 07/21/[address] [place] [address] Broker Assistant Dietitian, Registered 04/14/19 Mary Kay Jones [facility] Pharmacist 08/01/19 04/20/20 Susannah Blankenship, [facility] [address] [facility] [address] [place], [place] [address] Pharmacist Pharmacist 08/08/19 04/15/21 Carolyn Huynh [facility] [address] [place] [address] Pharmacist Pharmacist 06/25/20 04/15/21 Vika Kevin, CHEMISTRY TEACHER EXPLORATION ENGINEER [address] [place] [address] 390452 Assigned PCP 07/22/20 11/16/24 Marilyn Willard MD 420 [facility] [address] [place], [place] [address]805 Assigned Surgical Provider 08/17/20 08/16/24 Carie Varela DO [address] [place] [address] Assigned Heart and Vascular Provider 08/17/20 01/19/21 Maylin May NP [address] [place], [place] [address] Assigned Pediatric Specialist Provider 12/16/20 06/13/22 Marisa Rodrigues, RN Clinic Shrimp Trawler Captain 01/15/21 02/26/21 Vilma Long MD [address] [place] [address] Assigned Heart and Vascular Provider 01/20/21 07/20/21 Yasmeen Pendleton [facility] [address] [place] [address] Pharmacist Pharmacist 06/04/21 01/15/22 Cole George LISW Lead Shrimp Trawler Captain 06/13/21 10/07/21 Fletcher Up Community Health Worker 06/13/21 09/12/21 Bautista Casey MD [address] [place] [address] Assigned Heart and Vascular Provider 07/21/21 01/16/23 Jasmyn Oliver CHW Community Health Worker 09/13/21 10/07/21 Yasmeen Pendleton [facility] [address] [place] [address] Assigned MTM Pharmacist 03/22/22 01/02/23 documented as of this encounter
--- OUTSIDE RECORDS SUMMARY | 2025-10-01 18:36 | XMS_ITS | Encounter Summary ---
Author Organization [place] Address [address] [facility] [place] [address] Care Team Providers Care Airconditioning Engineer Name Role Phone Andrew Lu MD Primary Care Provider [phone] Niko Resendiz MD Primary Care Provider Carlie Mac MD Primary Care Provide r Angella Mendieta MD Primary Care Provider Julito Banuelos MD Primary Care Provider [phone] Julito Banuelos MD Unavailable Julito Banuelos MD Unavailable Aleshia Henriquez RD Unavailable Unavailable Mary Kay Jones [facility] Unavailable Unavailable Susannah Blankenship [facility] Unavailable [phone] Carolyn Huynh [facility] Unavailable [phone] Vika Kevin APRN CLIENT INSIGHTS CONSULTANT Unavailable + Marilyn Willard MD Unavailable [phone] Carie Varela DO Unavailable [phone] Maylin May NP Unavailable [phone] Marisa Rodrigues RN Unavailable Unavailable Vilma Long MD Unavailable + [phone] Yasmeen Pendleton [facility] Unavailable [phone] Cole George Unavailable Fletcher Russell Unavailable Unavailable Bautista Casey MD Unavailable [phone] DemetriusJasmyn wright [facility] Unavailable [phone] Vika Kevin APRN [facility] Primary Care Prov ider Vika Kevin APRN [facility] Primary Care Prov ider Yasmeen Pendleton [facility] Unavailable Vika [facility] Primary Care Prov ider Encounter Details Date Type Department Care Team (Late st Contact Info) Description 11/07/2012 MyC Medical Advice [address] [phone] Andrew Lu MD XXX RETIRED XXX [address] [phone] Social History Tobacco Use Types Packs/Day Years Used Date Smoking Tobacco: Former Cigarettes 0.3 15 0 10/26/1961 - 10/26/1976 Smokeless Tobacco: Never Alcohol Use Standard Drinks/Week Comments Yes 0 (1 standard drink = 0.6 oz pur e alcohol) 1-2 glasses of wine weekly Comments No Sex and Gender Information Value Date Recorded Sex Assigned at Not on file Legal Sex Female 3:22 AM EDITOR SOUND Gender Identity Not on file Sexual Orientation [...] Out COVID-19 12/04/2020 12/04/2020 12/05/2020 6:04 PM EDITOR SOUND documented as of this encounter Care Teams Airconditioning Engineer Relationship Specialty Start Date End Date Andrew Lu MD XXX RETIRED XXX [address] [place] [phone] PCP - General 12/10/01 01/10/14 Niko Resendiz MD [address] [place] [address] PCP - General Internal Medicine 01/11/14 01/29/14 Carlie Mac MD [address] [place] [address] PCP - General Pediatrics 01/30/14 07/17/15 Angella Mendieta MD [address] [place] [address] PCP - General Family Practice 07/18/15 09/11/15 Julito Banuelos MD [address] [place] [address] PCP - General Family Practice 09/12/15 09/23/21 Julito Banuelos MD [address] [place] [address] PCP - Assigned PCP 02/17/16 12/28/18 Vika Kevin APRN CLIENT INSIGHTS CONSULTANT [address] [place] [address] 23983 PCP - General Nurse Practitioner - Family 09/24/21 03/05/22 Vika Kevin APRN CLIENT INSIGHTS CONSULTANT [address] [place] [address] 13420 PCP - General Nurse Practitioner - Family 03/18/22 06/18/22 Vika Kevin, JAIME CLIENT INSIGHTS CONSULTANT [address] [place] [address] 499802 PCP - General Nurse Practitioner - Family 07/24/22 Julito Banuelos MD [address] [place] [address] 783342 Assigned PCP 02/17/16 07/21/[address] [place] [address] Alarm Adjuster Dietitian, Registered 04/14/19 Mary Kay Jones, [facility] Pharmacist 08/01/19 04/20/20 Susannah Blankenship, [facility] 420 [facility] [address] [place], [place] [address] Pharmacist Pharmacist 08/08/19 04/15/21 Carolyn Huynh, [facility] [address] [place], [place] [address] Pharmacist Pharmacist 06/25/20 04/15/21 Vika Kevin, JAIME CLIENT INSIGHTS CONSULTANT [address] [place] [address] 300532 Assigned PCP 07/22/20 11/16/24 Marilyn Willard MD 420 [facility] 394 [place], [place] [address] Assigned Surgical Provider 08/17/20 08/16/24 Carie Varela DO [address] [place] [address] Assigned Heart and Vascular Provider 08/17/20 01/19/21 Maylin May NP [address] [place] [address] Assigned Pediatric Specialist Provider 12/16/20 06/13/22 Marisa Rodrigues, RN Clinic Submarine Worker 01/15/21 02/26/21 Vilma Long MD [address] [place] [address] Assigned Heart and Vascular Provider 01/20/21 07/20/21 Yasmeen Pendleton [facility] [address] [place] [address] Pharmacist Pharmacist 06/04/21 01/15/22 Cole George LISW Lead Submarine Worker 06/13/21 10/07/21 Fletcher Up Community Health Worker 06/13/21 09/12/21 Bautista Casey MD [address] [place] [address] Assigned Heart and Vascular Provider 07/21/21 01/16/23 Jasmyn Oliver CHW Community Health Worker 09/13/21 10/07/21 Yasmeen Pendleton [facility] [address] [place] [address] Assigned MTM Pharmacist 03/22/22 01/02/23 documented as of this encounter
--- OUTSIDE RECORDS SUMMARY | 2025-10-01 18:36 | XMS_ITS | Encounter Summary ---
Author Organization [place] Address [address] [facility] [place] [address] Care Team Providers Care Sales And Marketing Specialist Name Role Phone Julito Banuelos MD Primary Care Provider [phone] Julito Banuelos MD Unavailable Aleshia Henriquez RD Unavailable Unavailable Mary Kay Jones [facility] Unavailable Unavailable Susannah Blankenship [facility] Unavailable [phone] Carolyn Huynh [facility] Unavailable [phone] Vika Kevin APRN BACKROOM ASSOCIATE Unavailable + Marilyn Willard MD Unavailable [phone] Carie Varela DO Unavailable [phone] Maylin May NP Unavailable [phone] Marisa Hernandez RN Unavailable Unavailable Vilma Long MD Unavailable Yasmeen Pendleton [facility] Unavailable Cole George Unavailable Fletcher Russell Unavailable Unavailable Bautista Casey MD Unavailable Jasmyn Oliver CHW Unavailable [phone] Vika Kevin APRN BACKROOM ASSOCIATE Primary Care Prov ider Vika Kevin APRN, CNP Primary Care Prov ider Yasmeen Pendleton [facility] Unavailable [phone] Vika Kevin APRN BACKROOM ASSOCIATE Primary Care Prov ider Encounter Details Date Type Department Care Team (Late st Contact Info) Description 08/16/2019 MyC Medical Advice [address] [place] [phone] Mary Kay Jones, [facility] Social History Tobacco Use Types Packs/Day [...] on file 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 Gender Identity Not on file Sexual Orientation [...] Out COVID-19 12/04/2020 12/04/2020 12/05/2020 6:04 PM STEWARD/STEWARDESS RAILROAD DINING CAR Assessment Noted Time PHQ-9 Depression Total Score: 8 07/18/20 19 12:06 PM CDT documented as of this encounter Care Teams Sales And Marketing Specialist Relationship Specialty Start Date End Date Julito Banuelos MD [address] [place] [address] PCP - General Family Practice 09/12/15 09/23/21 Vika Kevin APRN [facility] [address] [place] [address] 77782 PCP - General Nurse Practitioner - Family 09/24/21 03/05/22 Vika Kevin APRN BACKROOM ASSOCIATE [address] [place] [address] 25591 PCP - General Nurse Practitioner - Family 03/18/22 06/18/22 Vika Kevin APRN BACKROOM ASSOCIATE [address] [place] [address] 786112 PCP - General Nurse Practitioner - Family 07/24/22 Julito Banuelos MD [address] [place] [address] [id number] Assigned PCP 02/17/16 07/21/[address] [place] [address] 11889 Ammunition Assembly I Laborer Dietitian, Registered 04/14/19 Mary Kay Jones, [facility] Pharmacist 08/01/19 04/20/20 Susannah Blankenship, [facility] [address] [place] [address] 8[address] [place] [address] Pharmacist Pharmacist 08/08/19 04/15/21 Carolyn Huynh [facility] [address] [place], [place] [address] Pharmacist Pharmacist 06/25/20 04/15/21 Vika Kevin APRN BACKROOM ASSOCIATE [address] [place] [address] 23469 Assigned PCP 07/22/20 11/16/24 Marilyn Willard MD 420 [facility] [address] [place] [address] Assigned Surgical Provider 08/17/20 08/16/24 Carie Varela DO [address] [place] [address] Assigned Heart and Vascular Provider 08/17/20 01/19/21 Maylin May, JENNY [address] [place], [place] [address] Assigned Pediatric Specialist Provider 12/16/20 06/13/22 Marisa Rodrigues RN Clinic Slate Picker 01/15/21 02/26/21 Vilma Long MD [address] [place] [address] Assigned Heart and Vascular Provider 01/20/21 07/20/21 Yasmeen Pendleton [facility] [address] [place] [address] Pharmacist Pharmacist 06/04/21 01/15/22 Cole George LISW Lead Slate Picker 06/13/21 10/07/21 Fletcher Up Community Health Worker 06/13/21 09/12/21 Bautista Casey MD [address] [place] [address] Assigned Heart and Vascular Provider 07/21/21 01/16/23 Jasmyn Oliver CHW Community Health Worker 09/13/21 10/07/21 Yasmeen Pendleton [facility] [address] [place] [address] Assigned MTM Pharmacist 03/22/22 01/02/23 documented as of this encounter
--- OUTSIDE RECORDS SUMMARY | 2025-10-01 18:36 | XMS_ITS | Encounter Summary ---
Author Organization [place] Address [address] [facility] [address] Care Team Providers Care Licensing Services Clerk Name Role Phone Julito Banuelos MD Primary Care Provider [phone] Julito Banuelos MD Unavailable Aleshia Henriquez RD Unavailable Unavailable Mary Kay Jones [facility] Unavailable Unavailable Susannah Blankenship [facility] Unavailable Carolyn Huynh [facility] Unavailable [phone] Vika Kevin APRN SATELLITE COMMUNICATIONS OPERATOR Unavailable + Marilyn Willard MD Unavailable [phone] Carie Varela DO Unavailable [phone] Maylin May NP Unavailable [phone] Marisa Hernandez RN Unavailable Unavailable Vilma Long MD Unavailable Yasmeen Pendleton [facility] Unavailable [phone] Cole George Unavailable Fletcher Russell Unavailable Unavailable Bautista Casey MD Unavailable Jasmyn Oliver CHW Unavailable [phone] Vika Kevin APRN SATELLITE COMMUNICATIONS OPERATOR Primary Care Prov ider Vika Kevin APRN [facility] Primary Care Prov ider Yasmeen Pendleton [facility] Unavailable + [phone] Vika Kevin APRN [facility] Primary Care Prov ider Reason for Visit * Reason Comments Medication Refill Encounter Details Date Type Department Care Team (Late st Contact Info) Description 02/23/[address] [phone] [place] [address] [place] [address]372 Medication Refill Social History Tobacco Use [...] on file Legal Sex Female 3:22 AM NOZZLE AND SLEEVE WORKER Gender Identity Not on file Sexual [...] review/approval because: Age Range Nazanin Zhong RN [facility] documented in this encounter Plan of Treatment [...] Out COVID-19 12/04/2020 12/04/2020 12/05/2020 6:04 PM NOZZLE AND SLEEVE WORKER Assessment Noted Time PHQ-9 Depression Total Score: 8 07/18/20 19 12:06 PM CDT documented as of this encounter Care Teams Licensing Services Clerk Relationship Specialty Start Date End Date Julito Banuelos MD [address] [place] [address]76 PCP - General Family Practice 09/12/15 09/23/21 Vika Kevin APRN SATELLITE COMMUNICATIONS OPERATOR [address] [place] [address] 71845 PCP - General Nurse Practitioner - Family 09/24/21 03/05/22 Vika Kevin APRN SATELLITE COMMUNICATIONS OPERATOR [address] [place] [address] 06412 PCP - General Nurse Practitioner - Family 03/18/22 06/18/22 Vika eKvin APRN SATELLITE COMMUNICATIONS OPERATOR [address] [place] [address] 08825 PCP - General Nurse Practitioner - Family 07/24/22 Julito Banuelos MD [address] [place] [address] 08546 Assigned PCP 02/17/16 07/21/[address] [place] [address] 12512 Mechanical Press Operator Dietitian, Registered 04/14/19 Mary Kay Jones, [facility] Pharmacist 08/01/19 04/20/20 Susannah Blankenship, [facility] [address] [facility] [address] [place], [place] 393585 Pharmacist Pharmacist 08/08/19 04/15/21 Carolyn Huynh, [facility] [address] [place] [address] Pharmacist Pharmacist 06/25/20 04/15/21 Vika Kevin, SCREW MACHINE HAND SATELLITE COMMUNICATIONS OPERATOR [address] [place] [address] [id number] Assigned PCP 07/22/20 11/16/24 Marilyn Willard MD [address] [facility] 394 [place], [place] [address]265 Assigned Surgical Provider 08/17/20 08/16/24 Carie Varela DO [address] [place] [id number] Assigned Heart and Vascular Provider 08/17/20 01/19/21 Maylin May NP [address] [place], [place] [id number] Assigned Pediatric Specialist Provider 12/16/20 06/13/22 Marisa Rodrigues, RN Clinic Ecd 01/15/21 02/26/21 Vilma Long MD [address] [place] [id number] Assigned Heart and Vascular Provider 01/20/21 07/20/21 Yasmeen Pendleton, [facility] [address] [place] [address] Pharmacist Pharmacist 06/04/21 01/15/22 Cole George LISW Lead Ecd 06/13/21 10/07/21 Fletcher Up Community Health Worker 06/13/21 09/12/21 Bautista Casey MD [address] [place] [address] Assigned Heart and Vascular Provider 07/21/21 01/16/23 Jasmyn Oliver CHW [facility] Health Worker 09/13/21 10/07/21 Yasmeen Pendleton [facility] [address] [place] [address] Assigned MTM Pharmacist 03/22/22 01/02/23 documented as of this encounter
--- OUTSIDE RECORDS SUMMARY | 2025-10-01 18:36 | XMS_ITS | Encounter Summary ---
Author Organization [place] Address [address] [place] [address] Care Team Providers Care International Bank Manager Name Role Phone Julito Banuelos MD Primary Care Provider [phone] Julito Banuelos MD Unavailable Aleshia Henriquez RD Unavailable Unavailable Mary Kay Jones [facility] Unavailable Unavailable Susannah Blankenship [facility] Unavailable Carolyn Huynh [facility] Unavailable [phone] Vika Kevin APRN [employer] Unavailable + Marilyn Willard MD Unavailable [phone] Carie Varela DO Unavailable [phone] Maylin May NP Unavailable [phone] Marisa Hernandez RN Unavailable Unavailable Vilam Long MD Unavailable Yasmeen Pendleton [facility] Unavailable Cole George Unavailable Fletcher Russell Unavailable Unavailable Bautista Casey MD Unavailable Jasmyn Oliver CHW Unavailable [phone] Vika Kevin APRN [employer] Primary Care Prov ider Vika Kevin APRN [facility] Primary Care Prov ider Yasmeen Pendleton [facility] Unavailable + [phone] Vika Kevin APRN [facility] Primary Care Prov ider Reason for Visit * Reason Onset Date Comments Refill Request 09/22/2019 Encounter Details Date Type Department Care Team (Late st Contact Info) Description 09/22/2019 MyC Refill [facility] [address] [facility] [address] [place] [phone] Carie Varela DO [address] [place], [place] [address] Refill Request Social History Tobacco Use Types [...] file Legal Sex Female 3:22 AM PATIENT SERVICES REP Gender Identity Not on file Sexual Orientation Not on file Occupation Industry Job Start Date Job End Date Not on file Not on file Not on file Not on file documented as of this encounter Plan of Treatment Not on file documented as of this encounter Visit Diagnoses Diagnosis Hypertension goal BP (blood pressure) < 140/90 Unspecified essential hypertension Coronary artery disease involving [place] coronary artery of [place] heart without angina pectoris documented in this encounter Additional Health Concerns Infection Onset Date Last Indicated Resolved Time Rule Out COVID-19 07/25/2020 07/25/2020 07/26/2020 3:02 PM CDT Rule Out COVID-19 12/04/2020 12/04/2020 12/05/2020 6:04 PM PATIENT SERVICES REP Assessment Noted Time PHQ-9 Depression Total Score: 8 07/18/20 19 12:06 PM CDT documented as of this encounter Care Teams International Bank Manager Relationship Specialty Start Date End Date Julito Banuelos MD [address] [place] [address] 09377 PCP - General Family Practice 09/12/15 09/23/21 Vika Kevin APRN [employer] [address] [place] [address] 865902 PCP - General Nurse Practitioner - Family 09/24/21 03/05/22 Vika Kevin APRN [employer] [address] [place] [address] [id number] PCP - General Nurse Practitioner - Family 03/18/22 06/18/22 Vika Kevin APRN [employer] [address] [place] [address] [id number] PCP - General Nurse Practitioner - Family 07/24/22 Julito Banuelos MD [address] [place] [address] [phone] Assigned PCP 02/17/16 07/21/[address] [place] [address] 17888 Virtual Office Assistant Dietitian, Registered 04/14/19 Mary Kay Jones [facility] Pharmacist 08/01/19 04/20/20 Susannah Blankenship [facility] [address] [place] [address] [address] [place], [place] [address] Pharmacist Pharmacist 08/08/19 04/15/21 Carolyn Huynh [facility] [address] [place], [place] [address] Pharmacist Pharmacist 06/25/20 04/15/21 KevinVikalotte, PAPERHANGER GUIDEMAN [address] [place], [place] 2637[address] Assigned PCP 07/22/20 11/16/24 Marilyn Willard MD [address] [facility] [address] [place], [place] 747615 Assigned Surgical Provider 08/17/20 08/16/24 Carie Varela DO [address] [place] [address] Assigned Heart and Vascular Provider 08/17/20 01/19/21 Maylin May NP [address] [place], [place] [id number] Assigned Pediatric Specialist Provider 12/16/20 06/13/22 Marisa Rodrigues, RN Clinic Speed Belt Sander Tender 01/15/21 02/26/21 Vilma Long MD [address] [place] [address] Assigned Heart and Vascular Provider 01/20/21 07/20/21 Yasmeen Pendleton [facility] 9[address] [place] [address] Pharmacist Pharmacist 06/04/21 01/15/22 Cole George LISW Lead Speed Belt Sander Tender 06/13/21 10/07/21 Fletcher Up Community Health Worker 06/13/21 09/12/21 Bautista Casey MD [address] [place] [address] Assigned Heart and Vascular Provider 07/21/21 01/16/23 Jasmyn Oliver CHW Community Health Worker 09/13/21 10/07/21 Yasmeen Pendleton [facility] 9 [place] [address] Assigned MTM Pharmacist 03/22/22 01/02/23 documented as of this encounter
--- OUTSIDE RECORDS SUMMARY | 2025-10-01 18:37 | XMS_ITS | Clinical Summary ---
Author Organization [facility] Address [address] [place] [address] Care Team Providers Care Architecture Drafter Name Role Phone Maria Fernanda Linares NP Primary Care Provider [phone] Allergies Active Allergy Reactions Criticality Noted Date [...] on file Legal Sex Female 6:13 AM INFECTIOUS WASTE TECHNICIAN Gender Identity Not on file Sexual Orientation Not on file Last Filed Vital Signs Vital Sign Reading Time Taken Comments Blood Pressure 159/79 10/17/2018 10:16 AM INFECTIOUS WASTE TECHNICIAN Pulse 78 10/17/2018 10:16 AM INFECTIOUS WASTE TECHNICIAN Temperature 36.7 C (98 F) 10/17/2018 10:16 AM INFECTIOUS WASTE TECHNICIAN Respiratory Rate 20 10/17/2018 10:16 AM INFECTIOUS WASTE TECHNICIAN Oxygen Saturation 96% 10/17/2018 10:16 AM INFECTIOUS WASTE TECHNICIAN Inhaled Oxygen Concentration - - Weight 98 kg (216 lb) 10/17/2018 10:16 AM INFECTIOUS WASTE TECHNICIAN Height 172.7 cm (5' 8) 10/17/2018 10:16 AM INFECTIOUS WASTE TECHNICIAN Body Mass Index 32.84 10/17/2018 10:16 AM INFECTIOUS WASTE TECHNICIAN Plan of Treatment Health Maintenance Due Date [...] 1-dose 75+ series) 2016 COVID-19 vaccine series (2024- season) 2025 03/03/2022, 12/25/2020, 11/30/2020 Influenza Vaccine (#1) 2025 Hepatitis B series for 19+ Aged Out N o longer eligible based on patient's age to complete this topic Insurance MEDICARE PART B HB ONLY BLUE CROSS [place] BLUE HB ONLY BLUE CROSS MEDICARE ADVANTAGE MR Care Teams Architecture Drafter Relationship Specialty Start Date End Date Maria Fernanda Linares NP [facility] [address] [address] PCP - General Nurse Practitioner 08/04/25
--- OUTSIDE RECORDS SUMMARY | 2025-10-01 18:37 | XMS_ITS | Encounter Summary ---
Author Organization [place] Address [address] [facility] [place] [address] Care Team Providers Care Bone Glue Maker Name Role Phone Andrew Lu MD Primary Care Provider [phone] Niko Resendiz MD Primary Care Provider Carlie Mac MD Primary Care Provide r Angella Mendieta MD Primary Care Provider Julito Banuelos MD Primary Care Provider [phone] Julito Banuelos MD Unavailable Julito Banuelos MD Unavailable Aleshia Henriquez RD Unavailable Unavailable Mary Kay Jones [facility] Unavailable Unavailable Susannah Blankenship [facility] Unavailable [phone] Carolyn Huynh [facility] Unavailable [phone] Vika Kevin APRN REAR LOAD TRUCK DRIVER Unavailable + Marilyn Willard MD Unavailable [phone] Carie Varela DO Unavailable [phone] Maylin May NP Unavailable [phone] Marisa Rodrigues RN Unavailable Unavailable Vilma Long MD Unavailable + [phone] Yasmeen Pendleton [facility] Unavailable [phone] Cole George Unavailable Fletcher Russell Unavailable Unavailable Bautista Casey MD Unavailable [phone] AnnyJasmyn tracey [facility] Unavailable [phone] Vika Kevin APRN [facility] Primary Care Prov ider Vika Kevin APRN [facility] Primary Care Prov ider Yasmeen Pendleton [facility] Unavailable [phone] [facility] Primary Care Prov ider Encounter Details Date Type Department Care Team (Late st Contact Info) Description 01/03/2014 MyC Medical Advice [address] [address] Niko Resendiz MD [address] [place] [address] [phone] Social History Tobacco Use Types Packs/Day Years [...] file Legal Sex Female 3:22 AM RETAIL SHIFT SUPERVISOR Gender Identity Not on file Sexual [...] COVID-19 12/04/2020 12/04/2020 12/05/2020 6:04 PM RETAIL SHIFT SUPERVISOR documented as of this encounter Care Teams Bone Glue Maker Relationship Specialty Start Date End Date Andrew Lu MD XXX RETIRED XXX [address] [place] [phone] PCP - General 12/10/01 01/10/14 Niko Resendiz MD [address] [place] [address] PCP - General Internal Medicine 01/11/14 01/29/14 Carlie Mac MD [address] [place] [address] PCP - General Pediatrics 01/30/14 07/17/15 Angella Mendieta MD [address] [place] [address] PCP - General Family Practice 07/18/15 09/11/15 Julito Banuelos MD [address] [place] [address] PCP - General Family Practice 09/12/15 09/23/21 Julito Banuelos MD [address] [place] [address] PCP - Assigned PCP 02/17/16 12/28/18 Vika Kevin APRN REAR LOAD TRUCK DRIVER [address] [place] [address] PCP - General Nurse Practitioner - Family 09/24/21 03/05/22 Vika Kevin APRN REAR LOAD TRUCK DRIVER [address] [place] [address] PCP - General Nurse Practitioner - Family 03/18/22 06/18/22 Vika Kevin APRN REAR LOAD TRUCK DRIVER [address] [place] [address] 427352 PCP - General Nurse Practitioner - Family 07/24/22 Julito Banuelos MD [address] [place] [address] [id number] Assigned PCP 02/17/16 07/21/[address] [place] [address] Assignment Clerk Dietitian, Registered 04/14/19 [facility] 08/01/19 04/20/20 Susannah Blankenship, [facility] [address] [place] [address] 8[address] [place], [place] 6[address] Pharmacist Pharmacist 08/08/19 04/15/21 Carolyn Huynh, [facility] [address] [place] [address] Pharmacist Pharmacist 06/25/20 04/15/21 Vika Kevin APRN REAR LOAD TRUCK DRIVER [address] [place] [address] 717372 Assigned PCP 07/22/20 11/16/24 Marilyn Willard MD [address] [place] [address] [address] [place], [place] 860705 Assigned Surgical Provider 08/17/20 08/16/24 Carie Varela DO [address] [place] [address] Assigned Heart and Vascular Provider 08/17/20 01/19/21 Maylin May NP [address] [place] [address] Assigned Pediatric Specialist Provider 12/16/20 06/13/22 Marisa Rodrigues, RN Clinic Rail Car Driver 01/15/21 02/26/21 Vilma Long MD [address] [place] [address] Assigned Heart and Vascular Provider 01/20/21 07/20/21 Yasmeen Pendleton [facility] [address] [place] [address] Pharmacist Pharmacist 06/04/21 01/15/22 Cole George LISW Lead Rail Car Driver 06/13/21 10/07/21 Fletcher Up Community Health Worker 06/13/21 09/12/21 Bautista Casey MD [address] [place] [address] Assigned Heart and Vascular Provider 07/21/21 01/16/23 Jasmyn Oliver CHW Community Health Worker 09/13/21 10/07/21 Yasmeen Pendleton [facility] [address] [place] [address] Assigned MTM Pharmacist 03/22/22 01/02/23 documented as of this encounter
--- OUTSIDE RECORDS SUMMARY | 2025-10-01 18:37 | XMS_ITS | Encounter Summary ---
Author Organization [place] Address [address] [facility] [place] [address] Care Team Providers Care Sand Filler Name Role Phone Carlie Mac MD Primary Care Provide r Angella Mendieta MD Primary Care Provider Julito Banuelos MD Primary Care Provider [phone] Julito Banuelos MD Unavailable Julito Banuelos MD Unavailable Aleshia [address]quez RD Unavailable Unavailable Mary Kay Jones [facility] Unavailable Unavailable Susannah Blankenship [facility] Unavailable [phone] Carolyn Huynh [facility] Unavailable [phone] Vika Kevin APRN FACILITIES TECHNICIAN Unavailable + Marilyn Willard MD Unavailable [phone] Carie Varela DO Unavailable Maylin May NP Unavailable [phone] Marisa Hernandez RN Unavailable Unavailable Vilma Long MD Unavailable Yasmeen Pendleton [facility] Unavailable Cole George Unavailable Fletcher Russell Unavailable Unavailable IpBautista MD Unavailable Jasmyn Oliver [facility] Unavailable [phone] Vika Kevin APRN [facility] Primary Care Prov ider Vika Kevin APRN [facility] Primary Care Prov ider Yasmeen Pendleton [facility] Unavailable [phone] Vika Kevin APRN [facility] Primary Care Prov ider Reason for Visit * Reason Onset Date Comments Other 09/30/2014 [facility] Encounter Details Date Type Department Care Team (Late st Contact Info) Description 09/30/2014 MyC Medical Advice [address] [address] Carlie Mac MD [address] [place] [address] Other ([facility] ) Social History Tobacco Use Types [...] on file Legal Sex Female 3:22 AM REPEAT CHIEF Gender Identity Not on file Sexual [...] Out COVID-19 12/04/2020 12/04/2020 12/05/2020 6:04 PM REPEAT CHIEF documented as of this encounter Care Teams Sand Filler Relationship Specialty Start Date End Date Carlie Mac MD [address] [place], [place] [phone] PCP - General Pediatrics 01/30/14 07/17/15 Angella Mendieta MD [address] [place] [address] PCP - General Family Practice 07/18/15 09/11/15 Julito Banuelos MD [address] [place] [address] [phone] PCP - General Family Practice 09/12/15 09/23/21 Julito Banuelos MD [address] [place] [address] 169242 PCP - Assigned PCP 02/17/16 12/28/18 Vika Kevin APRN FACILITIES TECHNICIAN [address] [place] [address] PCP - General Nurse Practitioner - Family 09/24/21 03/05/22 Vika Kevin APRN FACILITIES TECHNICIAN [address] [place] [address] PCP - General Nurse Practitioner - Family 03/18/22 06/18/22 Vika Kevin APRN FACILITIES TECHNICIAN [address] [place] [address] PCP - General Nurse Practitioner - Family 07/24/22 Julito Banuelos MD [address] [place] [address] 563502 Assigned PCP 02/17/16 07/21/[place] [address] [place] [address] Qa Lead Dietitian, Registered 04/14/19 Mary Kay Jones, [facility] Pharmacist 08/01/19 04/20/20 Susannah Blankenship, [facility] [address] [facility] 8[address] [place], [place] 50[address] Pharmacist Pharmacist 08/08/19 04/15/21 Carolyn Huynh [facility] [address] [place], [place] [address] Pharmacist Pharmacist 06/25/20 04/15/21 Vika Kevin APRN FACILITIES TECHNICIAN [address] [place] [address] 152222 Assigned PCP 07/22/20 11/16/24 Marilyn Willard MD [address] [place] [address] 394 [place], [place] 664205 Assigned Surgical Provider 08/17/20 08/16/24 Carie Varela DO [address] [place], [place] [address] Assigned Heart and Vascular Provider 08/17/20 01/19/21 Maylin May NP [address] [place], [place] [id number] Assigned Pediatric Specialist Provider 12/16/20 06/13/22 Marisa Rodrigues, RN Clinic Obstetrics Tech 01/15/21 02/26/21 Vilma Long MD [address] [place] [address] Assigned Heart and Vascular Provider 01/20/21 07/20/21 Yasmeen Pendleton, [facility] [address] [place], [place] [address] Pharmacist Pharmacist 06/04/21 01/15/22 Cole George LISW Lead Obstetrics Tech 06/13/21 10/07/21 Fletcher Up Community Health Worker 06/13/21 09/12/21 Bautista Casey MD [address] [place] [address] Assigned Heart and Vascular Provider 07/21/21 01/16/[address] [facility] Community Health Worker 09/13/21 10/07/21 Yasmeen Pendleton [facility] [address] [place] [address] Assigned MTM Pharmacist 03/22/22 01/02/23 documented as of this encounter
--- OUTSIDE RECORDS SUMMARY | 2025-10-01 18:37 | XMS_ITS | Encounter Summary ---
Author Organization [place] Address [address] [facility] [place] [address] Care Team Providers Care Technical Staff Assistant Name Role Phone Andrew Lu MD Primary Care Provider [phone] Niko Resendiz MD Primary Care Provider Carlie Mac MD Primary Care Provide r Angella Mendieta MD Primary Care Provider Julito Banuelos MD Primary Care Provider [phone] Julito Banuelos MD Unavailable Julito Banuelos MD Unavailable Aleshia Henriquez RD Unavailable Unavailable Mary Kay Jones [facility] Unavailable Unavailable Susannah Blankenship [facility] Unavailable [phone] Carolyn Huynh [facility] Unavailable [phone] Vika Kevin APRN [employer]WORK[employer] CRANBERRY Unavailable + Marilyn Willard MD Unavailable [phone] Carie Varela DO Unavailable +[phone] Maylin May NP Unavailable [phone] Marisa Rodrigues RN Unavailable Unavailable Vilma Long MD Unavailable + [phone] Yasmeen Pendleton [facility] Unavailable [phone] Cole George Unavailable Fletcher Russell Unavailable Unavailable Bautista Casey MD Unavailable [phone] AnnyJasmyn tracey [facility] Unavailable [phone] Vika Kevin APRN [facility] Primary Care Prov ider Vika Kevin APRN [facility] Primary Care Prov ider Yasmeen Pendleton [facility] Unavailable [phone] [facility] Primary Care Prov ider Encounter Details Date Type Department Care Team (Late st Contact Info) Description 05/25/2007 MyC Medical Advice [address] [phone] Andrew Lu MD XXX RETIRED XXX [address] [place] [address] [phone] Social History Tobacco Use Types Packs/Day Years Used Date Smoking Tobacco: Former Cigarettes 0.3 15 0 10/26/1961 - 10/26/1976 Alcohol Use Standard Drinks/Week Comments Yes 0 (1 standard drink = 0.6 oz pur e alcohol) 1 wine 2x qweek Comments No Sex and Gender Information Value Date Recorded Sex Assigned at Not on file Legal Sex Female 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 Gender Identity Not on file Sexual Orientation Not on file documented as of this encounter Plan of Treatment Not on file documented as of this encounter Visit Diagnoses Not on filedocumented in this encounter Additional Health Concerns Infection Onset Date Last Indicated Resolved Time Rule Out COVID-19 07/25/2020 07/25/2020 07/26/2020 3:02 PM CDT Rule Out COVID-19 12/04/2020 12/04/2020 12/05/2020 6:04 PM SOLE MOLDING 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 documented as of this encounter Care Teams Technical Staff Assistant Relationship Specialty Start Date End Date Andrew Lu MD XXX RETIRED XXX [address] [place] [phone] PCP - General 12/10/01 01/10/14 Niko Resendiz MD [address] [place] [address] PCP - General Internal Medicine 01/11/14 01/29/14 Carlie Mac MD [address] [place], [place] [id number] PCP - General Pediatrics 01/30/14 07/17/15 Angella Mendieta MD [address] [place] [address] 670232 PCP - General Family Practice 07/18/15 09/11/15 Julito Banuelos MD [address] [place] [address] [phone] PCP - General Family Practice 09/12/15 09/23/21 Julito Banuelos MD [address] [place] [address]654 PCP - Assigned PCP 02/17/16 12/28/18 Vika Kevin APRN [employer] [address] [place] [address] 730802 PCP - General Nurse Practitioner - Family 09/24/21 03/05/22 Vika Kevin APRN [employer] [address] [place] [address] [phone] PCP - General Nurse Practitioner - Family 03/18/22 06/18/22 Vika Kevin APRN [employer] [address] [place] [address] 710862 PCP - General Nurse Practitioner - Family 07/24/22 Julito Banuelos MD [address] [place] [address] [phone] Assigned PCP 02/17/16 07/21/[address] [place] [address] Signal Technician Dietitian, Registered 04/14/19 Mary Kay Jones, [facility] Pharmacist 08/01/19 04/20/20 [facility] [address] [place] [address] [address] [place], [place] 552175 Pharmacist Pharmacist 08/08/19 04/15/21 [facility] [address] [place] [address] Pharmacist Pharmacist 06/25/20 04/15/21 Vika Kevin APRN [employer] [address] [place] [address] [phone] Assigned PCP 07/22/20 11/16/24 Marilyn Willard MD [address] [place] [address] [address] [place], [place] 917725 Assigned Surgical Provider 08/17/20 08/16/24 Carie Varela DO [address] [place] [address] Assigned Heart and Vascular Provider 08/17/20 01/19/21 Maylin May NP [address] [place] [address] Assigned Pediatric Specialist Provider 12/16/20 06/13/22 Marisa Rodrigues, RN Clinic Skip Tracer 01/15/21 02/26/21 Vilma Long MD [address] [place] [address] Assigned Heart and Vascular Provider 01/20/21 07/20/21 Yasmeen Pendleton [facility] [address] [place] [address] Pharmacist Pharmacist 06/04/21 01/15/22 Cole George LISW Lead Skip Tracer 06/13/21 10/07/21 Fletcher Up Community Health Worker 06/13/21 09/12/21 Bautista Casey MD [address] [place] [address] Assigned Heart and Vascular Provider 07/21/21 01/16/23 Jasmyn Oliver CHW Community Health Worker 09/13/21 10/07/21 Yasmeen Pendleton [facility] [address] [place] [address] Assigned MTM Pharmacist 03/22/22 01/02/23 documented as of this encounter
--- OUTSIDE RECORDS SUMMARY | 2025-10-01 18:37 | XMS_ITS | Encounter Summary ---
Author Organization [place] Address [address] [place] [address] Care Team Providers Care History Department Chair Name Role Phone Julito Banuelos MD Primary Care Provider [phone] Julito Banuelos MD Unavailable Aleshia Henriquez RD Unavailable Unavailable Susannah Blankenship [facility] Unavailable [phone] Carolyn Huynh [facility] Unavailable [phone] Vika Kevin APRN LEAD TECHNICAL ARCHITECT Unavailable + Marilyn Willard MD Unavailable [phone] Carie Varela DO Unavailable [phone] Maylin May NP Unavailable [phone] Marisa Hernandez RN Unavailable Unavailable Vilma Long MD Unavailable + [phone] Yasmeen Pendleton [facility] Unavailable Cole George Unavailable Fletcher Russell Unavailable Unavailable Bautista Casey MD Unavailable [phone] Jasmyn Oliver Unavailable [phone] Vika Kevin APRN LEAD TECHNICAL ARCHITECT Primary Care Prov ider Vika Kevin APRN [facility] Primary Care Prov ider Yasmeen Pendleton [facility] Unavailable + [phone] Vika Kevin APRN [facility] Primary Care [facility] ider Reason for Visit * Reason Comments Medication Refill Encounter Details Date Type Department Care Team (Late st Contact Info) Description 07/03/[address] [phone] [place] [address] [place] [address] Medication Refill Social History Tobacco Use [...] on file Legal 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 Gender Identity Not on file Sexual Orientation [...] per RN protocol Leslye Steiner RN, BSN [place] Triage documented in this encounter Plan of Treatment Not on file documented as of this encounter Visit Diagnoses Diagnosis Gastroesophageal reflux disease without esophagitis Esophageal reflux documented in this encounter Additional Health Concerns Infection Onset Date Last Indicated Resolved Time Rule Out COVID-19 07/25/2020 07/25/2020 07/26/2020 3:02 PM CDT Rule Out COVID-19 12/04/2020 12/04/2020 12/05/2020 6:04 PM TRAVEL ATTENDANTS Assessment Noted Time PHQ-9 Depression Total Score: 12 06/19/ 020 3:35 PM CDT documented as of this encounter Care Teams History Department Chair Relationship Specialty Start Date End Date Julito Banuelos MD [address] [place] [address] PCP - General Family Practice 09/12/15 09/23/21 Vika Kevin APRN LEAD TECHNICAL ARCHITECT [address] [place] [address] 43265 PCP - General Nurse Practitioner - Family 09/24/21 03/05/22 Vika Kevin APRN LEAD TECHNICAL ARCHITECT [address] [place] [address] 17513 PCP - General Nurse Practitioner - Family 03/18/22 06/18/22 Vika Kevin APRN LEAD TECHNICAL ARCHITECT [address] [place] [address] 12799 PCP - General Nurse Practitioner - Family 07/24/22 Julito Banuelos MD [address] [place] [address] Assigned PCP 02/17/16 07/21/[address] [place] [address] Logistics Planner Dietitian, Registered 04/14/19 Susannah Blankenship, [facility] [address] [place] [address] 812 [place] [address] Pharmacist Pharmacist 08/08/19 04/15/21 Carolyn Huynh [facility] [address] [place], [place] [address] Pharmacist Pharmacist 06/25/20 04/15/21 Vika Kevin APRN LEAD TECHNICAL ARCHITECT [address] [place], [place] 751872 Assigned PCP 07/22/20 11/16/24 Marilyn Willard MD [address] [facility] [address] [place], [place] 8[address]265 Assigned Surgical Provider 08/17/20 08/16/24 Carie Varela DO [address] [place] [address] Assigned Heart and Vascular Provider 08/17/20 01/19/21 Maylin May NP [address] [place], [place] [address] Assigned Pediatric Specialist Provider 12/16/20 06/13/22 Marisa Rodrigues, RN Clinic Head Golf Coach 01/15/21 02/26/21 Vilma Long MD [address] [place] [address] Assigned Heart and Vascular Provider 01/20/21 07/20/21 Yasmeen Pendleton [facility] [address] [place], [place] 7[address] Pharmacist Pharmacist 06/04/21 01/15/22 Cole George LISW Lead Head Golf Coach 06/13/21 10/07/21 Fletcher Up Community Health Worker 06/13/21 09/12/21 Bautista Casey MD [address] [place] [address] Assigned Heart and Vascular Provider 07/21/21 01/16/23 Jasmyn Oliver CHW Community Health Worker 09/13/21 10/07/21 Yasmeen Pendleton [facility] [address] [place] [address] Assigned MTM Pharmacist 03/22/22 01/02/23 documented as of this encounter
--- OUTSIDE RECORDS SUMMARY | 2025-10-01 18:37 | XMS_ITS | Encounter Summary ---
Author Organization [place] Address [address] [facility] [place] [address] Care Team Providers Care Primary Montessori Teacher Name Role Phone Andrew Lu MD Primary Care Provider [phone] Niko Resendiz MD Primary Care Provider Carlie Mac MD Primary Care Provide r Angella Mendieta MD Primary Care Provider Julito Banuelos MD Primary Care Provider [phone] Julito Banuelos MD Unavailable Julito Banuelos MD Unavailable Aleshia Henriquez RD Unavailable Unavailable Mary Kay Jones [facility] Unavailable Unavailable Susannah Blankenship [facility] Unavailable [phone] Carolyn Huynh [facility] Unavailable [phone] Vika Kevin APRN DIRECTOR OF FINANCIAL AID Unavailable + Marilyn Willard MD Unavailable [phone] Carie Varela DO Unavailable [phone] Maylin May NP Unavailable [phone] Marisa Rodrigues RN Unavailable Unavailable Vilma Long MD Unavailable + [phone] Yasmeen Pendleton [facility] Unavailable [phone] Cole George Unavailable Fletcher Russell Unavailable Unavailable Bautista Casey MD Unavailable [phone] Jasmyn Oliver [facility] Unavailable [phone] Vika Kevin CAR WASHER [facility] Primary Care Prov ider Vika Kevin APRN [facility] Primary Care Prov ider Yasmeen Pendleton [facility] Unavailable [phone] [facility] Primary Care Prov ider Encounter Details Date Type Department Care Team (Late st Contact Info) Description 09/22/2010 MyC Medical Advice [address] [phone] Andrew Lu MD XXX RETIRED XXX [address] [place] [phone] Social History Tobacco Use Types Packs/Day Years Used Date Smoking Tobacco: Former Cigarettes 0.3 15 0 10/26/1961 - 10/26/1976 Alcohol Use Standard Drinks/Week Comments Yes 0 (1 standard drink = 0.6 oz pur e alcohol) 1 wine 2x qweek Comments No Sex and Gender Information Value Date Recorded Sex Assigned at Not on file Legal Sex Female 3:22 AM PATTERN WEAVER Gender Identity Not on file Sexual Orientation Not on file documented as of this encounter Miscellaneous Notes * Telephone Encounter - Andrew Lu - 10/02/2010 4:30 PM CST not clear why the results are taking so long? ERN WEAVER * Telephone Encounter - Vika Downing - 09/30/2010 3:17 PM CST The sleep study has not be read by DR Suggs yet. They will fax it over one it has been read. ERN WEAVER * Telephone Encounter - CoronaBo - 09/23/2010 10:28 AM CST Please get the sleep study results scanned int o epic. ERN WEAVER documented in this encounter Plan of Treatment Not on file documented as of this encounter Visit Diagnoses Not on filedocumented in this encounter Additional Health Concerns Infection Onset Date Last Indicated Resolved Time Rule Out COVID-19 07/25/2020 07/25/2020 07/26/2020 3:02 PM CDT Rule Out COVID-19 12/04/2020 12/04/2020 12/05/2020 6:04 PM PATTERN WEAVER documented as of this encounter Care Teams Primary Montessori Teacher Relationship Specialty Start Date End Date Andrew Lu MD XXX RETIRED XXX [address] [place] [phone] PCP - General 12/10/01 01/10/14 Niko Resendiz MD [address] [address] PCP - General Internal Medicine 01/11/14 01/29/14 Carlie Mac MD [address] [place] [address] PCP - General Pediatrics 01/30/14 07/17/15 Angella Mendieta MD [address] [place] [address] PCP - General Family Practice 07/18/15 09/11/15 Julito Banuelos MD [address] [place] [address] PCP - General Family Practice 09/12/15 09/23/21 Julito Banuelos MD [address] [place] [address] PCP - Assigned PCP 02/17/16 12/28/18 Vika Kevin APRN DIRECTOR OF FINANCIAL AID [address] [place] [address] PCP - General Nurse Practitioner - Family 09/24/21 03/05/22 Vika Kevin APRN DIRECTOR OF FINANCIAL AID [address] [place] [address] PCP - General Nurse Practitioner - Family 03/18/22 06/18/22 Vika Kevin APRN DIRECTOR OF FINANCIAL AID [address] [place] [address] PCP - General Nurse Practitioner - Family 07/24/22 Julito Banuelos MD [address] [place] [address] Assigned PCP 02/17/16 07/21/[address] [place] [address] Supervisor Chassis Assembly Dietitian, Registered 04/14/19 Mary Kay Jones [facility] Pharmacist 08/01/19 04/20/20 Susannah Blankenship [facility] [address] [place] [address] 812 [place] [address] Pharmacist Pharmacist 08/08/19 04/15/21 Carolyn Huynh [facility] [address] [place] [address] Pharmacist Pharmacist 06/25/20 04/15/21 Vika Kevin APRN DIRECTOR OF FINANCIAL AID [address] [place], [place] 683812 Assigned PCP 07/22/20 11/16/24 Marilyn Willard MD 420 [facility] 394 [place], [place] [address] Assigned Surgical Provider 08/17/20 08/16/24 Carie Varela DO [address] [place] [address] Assigned Heart and Vascular Provider 08/17/20 01/19/21 Maylin May NP [address] [place], [place] 8[address] Assigned Pediatric Specialist Provider 12/16/20 06/13/22 Marisa Rodrigues RN Clinic Escort Car Driver 01/15/21 02/26/21 Vilma Long MD [address] [place] [address] Assigned Heart and Vascular Provider 01/20/21 07/20/21 Yasmeen Pendleton [facility] [address] [place] [address] Pharmacist Pharmacist 06/04/21 01/15/22 Cole George LISW Lead Escort Car Driver 06/13/21 10/07/21 Fletcher Up Community Health Worker 06/13/21 09/12/21 Bautista Casey MD [address] [place] [address] Assigned Heart and Vascular Provider 07/21/21 01/16/23 Jasmyn Oliver CHW Community Health Worker 09/13/21 10/07/21 Yasmeen Pendleton [facility] [address] [place], [place] [address] Assigned MTM Pharmacist 03/22/22 01/02/23 documented as of this encounter
--- OUTSIDE RECORDS SUMMARY | 2025-10-01 18:37 | XMS_ITS | Encounter Summary ---
Author Organization [place] Address [address] [facility] [place] [address] Care Team Providers Care Shuttle Repairer Name Role Phone Andrew Lu MD Primary Care Provider [phone] Niko Resendiz MD Primary Care Provider Carlie Mac MD Primary Care Provide r Angella Mendieta MD Primary Care Provider Julito Banuelos MD Primary Care Provider [phone] Julito Banuelos MD Unavailable Julito Banuelos MD Unavailable Aleshia Henriquez RD Unavailable Unavailable Mary Kay Jones [facility] Unavailable Unavailable Susannah Blankenship [facility] Unavailable [phone] Carolyn Huynh [facility] Unavailable [phone] Vika Kevin APRN WEATHER FORCASTER Unavailable + Marilyn Willard MD Unavailable [phone] Carie Varela DO Unavailable [phone] Maylin May NP Unavailable [phone] Marisa Rodrigues RN Unavailable Unavailable Vilma Long MD Unavailable + [phone] Yasmeen Pendleton [facility] Unavailable [phone] Cole George Unavailable Fletcher Russell Unavailable Unavailable Bautista Casey MD Unavailable [phone] AnnyJasmyn tracey [facility] Unavailable [phone] Vika Kevin APRN [facility] Primary Care Prov ider Vika Kevin APRN [facility] Primary Care Prov ider Yasmeen Pendleton [facility] Unavailable [phone] [facility] Primary Care Prov ider Encounter Details Date Type Department Care Team (Late st Contact Info) Description 06/23/[address] [phone] Andrew Lu MD XXX RETIRED XXX [address] [place] [phone] OP REPT (Primary Dx) Social History [...] on file Legal Sex Female 3:22 AM STABLE HAND Gender Identity Not on file Sexual Orientation Not on file 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 Chronic sinusitis. 2. Deviated [...] patient was allowed to recover from anesthesia. Tnoi LOPEZ MD Document: [id number] [place], [place] MARIALUISA COSBY OPERATIV E REPORT Page 2 of 2 LCN:SDS DSC: 06/23/2003 [place], [place] Name: MR #: : Procedure Date: MARIALUISA COSBY [id number] 06/23/2003 Doctor: Toni RASMUSSEN MD OPERATIVE [...] Out COVID-19 12/04/2020 12/04/2020 12/05/2020 6:04 PM STABLE HAND documented as of this encounter Care Teams Shuttle Repairer Relationship Specialty Start Date End Date Andrew Lu MD XXX RETIRED XXX [address] [place] [phone] PCP - General 12/10/01 01/10/14 Niko Resendiz MD [address] [address] PCP - General Internal Medicine 01/11/14 01/29/14 Carlie Mac MD [address] [place] [address] PCP - General Pediatrics 01/30/14 07/17/15 Angella Mendieta MD [address] [place] [address] PCP - General Family Practice 07/18/15 09/11/15 Julito Banuelos MD [address] [place] [address] PCP - General Family Practice 09/12/15 09/23/21 Julito Banuelos MD [address] [place] [address] PCP - Assigned PCP 02/17/16 12/28/18 Vika Kevin APRN WEATHER FORCASTER [address] [place] [address] PCP - General Nurse Practitioner - Family 09/24/21 03/05/22 Vika Kevin APRN WEATHER FORCASTER [address] [place] [address] PCP - General Nurse Practitioner - Family 03/18/22 06/18/22 Vika Kevin APRN WEATHER FORCASTER [address] [place] [address] PCP - General Nurse Practitioner - Family 07/24/22 Julito Banuelos MD [address] [place] [address] Assigned PCP 02/17/16 07/21/20 Aleshia Henriquez, DAVE [address] [place] [address] Rn Radiology Dietitian, Registered 04/14/19 Mary Kay Jones, [facility] Pharmacist 08/01/19 04/20/20 [facility] [address] [place] [address] 812 [place], [place] [address] Pharmacist Pharmacist 08/08/19 04/15/21 [facility] [address] [place], [place] [address] Pharmacist Pharmacist 06/25/20 04/15/21 Vika Kevin APRN WEATH[employer]CASTER [address] [place] [address] Assigned PCP 07/22/20 11/16/24 Marilyn Willard MD [address] [place] [address] [address] [place], [place] [address] Assigned Surgical Provider 08/17/20 08/16/24 Carie Varela DO [address] [place], [place] [address] Assigned Heart and Vascular Provider 08/17/20 01/19/21 Maylin May NP [address] [place] [address] Assigned Pediatric Specialist Provider 12/16/20 06/13/22 Marisa Rodrigues, RN Clinic Solutions Developer 01/15/21 02/26/21 Vilma Long MD [address] [place] [address] Assigned Heart and Vascular Provider 01/20/21 07/20/21 [facility] 9[address] [place] [address] Pharmacist Pharmacist 06/04/21 01/15/22 Cole George LISW Lead Solutions Developer 06/13/21 10/07/21 Fletcher Up Community Health Worker 06/13/21 09/12/21 Bautista Casey MD [address] [place] [address] Assigned Heart and Vascular Provider 07/21/21 01/16/23 Jasmyn Oliver CHW Community Health Worker 09/13/21 10/07/21 [facility] [address] [place], [place] [address] Assigned MTM Pharmacist 03/22/22 01/02/23 documented as of this encounter
--- OUTSIDE RECORDS SUMMARY | 2025-10-01 18:37 | XMS_ITS | Encounter Summary ---
Author Organization [place] Address [address] [facility] [place] [address] Care Team Providers Care Typing Secretary Name Role Phone Andrew Lu MD Primary Care Provider [phone] Niko Resendiz MD Primary Care Provider Carlie Mac MD Primary Care Provide r Angella Mendieta MD Primary Care Provider Julito Banuelos MD Primary Care Provider [phone] Julito Banuelos MD Unavailable Julito Banuelos MD Unavailable Aleshia Henriquez RD Unavailable Unavailable Mary Kay Jones [facility] Unavailable Unavailable Susannah Blankenship [facility] Unavailable [phone] Carolyn Huynh [facility] Unavailable +[phone] Vika Kevin APRN STRINGED INSTRUMENT REPAIRER Unavailable + Marilyn Willard MD Unavailable +[phone] Carie Varela DO Unavailable +[phone] Maylin May NP Unavailable [phone] Marisa Rodrigues RN Unavailable Unavailable Vilma Long MD Unavailable + [phone] Yasmeen Pendleton [facility] Unavailable [phone] Cole George Unavailable Fletcher Russell Unavailable Unavailable Bautista Casey MD Unavailable [phone] DemetriusJasmyn wright [facility] Unavailable +[phone] Vika Kevin APRN [facility] Primary Care Prov ider Vika Kevin APRN [facility] Primary Care Prov ider Yasmeen Pendleton [facility] Unavailable [facility] Primary Care Prov ider Reason for Visit * Reason Onset Date Comments Refill Request 01/06/2011 Encounter Details Date Type Department Care Team (Late st Contact Info) Description 01/06/[address] [address] Andrew Lu MD XXX RETIRED XXX [address] [place] [address] Refill Request Social History Tobacco Use Types Packs/Day Years Used Date Smoking Tobacco: Former Cigarettes 0.3 15 0 10/26/1961 - 10/26/1976 Alcohol Use Standard Drinks/Week Comments Yes 0 (1 standard drink = 0.6 oz pur e alcohol) 1 wine 2x qweek Comments No Sex and Gender Information Value Date Recorded Sex Assigned at Not on file Legal Sex Female 3:22 AM RIVET HEATER GAS Gender Identity Not on file Sexual Orientation [...] Out COVID-19 12/04/2020 12/04/2020 12/05/2020 6:04 PM RIVET HEATER GAS documented as of this encounter Care Teams Typing Secretary Relationship Specialty Start Date End Date Andrew Lu MD XXX RETIRED XXX [address] [place] [address] PCP - General 12/10/01 01/10/14 Niko Resendiz MD [address] [place] [address] PCP - General Internal Medicine 01/11/14 01/29/14 Carlie Mac MD [address] [place] [address] PCP - General Pediatrics 01/30/14 07/17/15 Angella Mendieta MD [address] [place] [address] PCP - General Family Practice 07/18/15 09/11/15 Julito Banuelos MD [address] [place] [address] PCP - General Family Practice 09/12/15 09/23/21 Julito Banuelos MD [address] [place] [address] PCP - Assigned PCP 02/17/16 12/28/18 Vika Kevin APRN STRINGED INSTRUMENT REPAIRER [address] [place] [address]01 PCP - General Nurse Practitioner - Family 09/24/21 03/05/22 Vika Kevin APRN STRINGED INSTRUMENT REPAIRER [address] [place] [address] PCP - General Nurse Practitioner - Family 03/18/22 06/18/22 Vika Kevin APRN STRINGED INSTRUMENT REPAIRER [address] [place] [address] PCP - General Nurse Practitioner - Family 07/24/22 Julito Banuelos MD [address] [place] [address] Assigned PCP 02/17/16 07/21/[address] [place] [address] Contact Acid Plant Operator Dietitian, Registered 04/14/19 Mary Kay Jones, [facility] Pharmacist 08/01/19 04/20/20 Susannah Blankenship, [facility] [address] [facility] [address] [place] [address] Pharmacist Pharmacist 08/08/19 04/15/21 Carolyn Huynh, [facility] [address] [place], [place] [address] Pharmacist Pharmacist 06/25/20 04/15/21 Vika Kevin, JAIME STRINGED INSTRUMENT REPAIRER [address] [place] [address] Assigned PCP 07/22/20 11/16/24 Marilyn Willard MD [address] [facility] [address] [place], [place] [address] Assigned Surgical Provider 08/17/20 08/16/24 Carie Varela DO [address] [place] [address] Assigned Heart and Vascular Provider 08/17/20 01/19/21 Maylin May NP [address] [place] [address] Assigned Pediatric Specialist Provider 12/16/20 06/13/22 Marisa Rodrigues, RN Clinic Incident Commander 01/15/21 02/26/21 Vilma Long MD [address] [place] [address] Assigned Heart and Vascular Provider 01/20/21 07/20/21 [facility] [address] [place] [address] Pharmacist Pharmacist 06/04/21 01/15/22 Cole George LISW Lead Incident Commander 06/13/21 10/07/21 Fletcher Up Community Health Worker 06/13/21 09/12/21 Bautista Casey MD [address] [place] [address] Assigned Heart and Vascular Provider 07/21/21 01/16/23 Jasmyn Oliver CHW Community Health Worker 09/13/21 10/07/21 [facility] [address] [place] [address] Assigned MTM Pharmacist 03/22/22 01/02/23 documented as of this encounter
--- OUTSIDE RECORDS SUMMARY | 2025-10-01 18:37 | XMS_ITS | Encounter Summary ---
Author Organization [place] Address [address] [facility] [place] [address] Care Team Providers Care Supervisor Blast Furnace Name Role Phone Andrew Lu MD Primary Care Provider [phone] Niko Resendiz MD Primary Care Provider Carlie Mac MD Primary Care Provide r Angella Mendieta MD Primary Care Provider Julito Banuelos MD Primary Care Provider [phone] Julito Banuelos MD Unavailable Julito Banuelos MD Unavailable Aleshia Henriquez RD Unavailable Unavailable Mary Kay Jones [facility] Unavailable Unavailable Susannah Blankenship [facility] Unavailable [phone] Carolyn Huynh [facility] Unavailable [phone] Vika Kevin APRN STOPPER MAKER HELPER Unavailable + Marilyn Willard MD Unavailable [phone] Carie Varela DO Unavailable [phone] Maylin May NP Unavailable [phone] Marisa Rodrigeus RN Unavailable Unavailable Vilma Long MD Unavailable + [phone] Yasmeen Pendleton [facility] Unavailable + [phone] Cole George Unavailable Fletcher Russell Unavailable Unavailable Bautista Casey MD Unavailable [phone] DemetriusJasmyn wright [facility] Unavailable [phone] Vika Kevin APRN [facility] Primary Care Prov ider Vika Kevin APRN [facility] Primary Care Prov ider Yasmeen Pendleton [facility] Unavailable + [phone] Vika Kevin APRN [facility] Primary Care Prov ider Encounter Details Date Type Department Care Team (Late st Contact Info) Description 01/05/2014 MyC Medical Advice [address] [address] Mary Cha LPN Social History [...] on file Legal Sex Female 3:22 AM CHARGEMASTER ANALYST Gender Identity Not on file Sexual [...] Out COVID-19 12/04/2020 12/04/2020 12/05/2020 6:04 PM CHARGEMASTER ANALYST documented as of this encounter Care Teams Supervisor Blast Furnace Relationship Specialty Start Date End Date Andrew Lu MD XXX RETIRED XXX [address] [place] [address] PCP - General 12/10/01 01/10/14 Niko Resendiz MD [address] [place] [address] PCP - General Internal Medicine 01/11/14 01/29/14 Carlie Mac MD [address] [place] [address] PCP - General Pediatrics 01/30/14 07/17/15 Angella Mendieta MD [address] [place] [address] PCP - General Family Practice 07/18/15 09/11/15 Julito Banuelos MD [address] [place] [address] PCP - General Family Practice 09/12/15 09/23/21 Julito Banuelos MD [address] [place] [address] PCP - Assigned PCP 02/17/16 12/28/18 Vika Kevin APRN STOPPER MAKER HELPER [address] [place] [address] PCP - General Nurse Practitioner - Family 09/24/21 03/05/22 Vika Kevin APRN STOPPER MAKER HELPER [address] [place] [address] PCP - General Nurse Practitioner - Family 03/18/22 06/18/22 Vika Kevin APRN STOPPER MAKER HELPER [address] [place] [address] 832902 PCP - General Nurse Practitioner - Family 07/24/22 Julito Banuelos MD [address] [place] [address] 799542 Assigned PCP 02/17/16 07/21/[address] [place] [address] Commercial Drone Software Developer Dietitian, Registered 04/14/19 Mary Kay Jones, [facility] Pharmacist 08/01/19 04/20/20 [facility] [address] [place] [address] [address] [place], [place] 269[address] Pharmacist Pharmacist 08/08/19 04/15/21 [facility] [address] [place], [place] [address] Pharmacist Pharmacist 06/25/20 04/15/21 Vika Kevin APRN STOPPER MAKER HELPER [address] [place] [address] 538382 Assigned PCP 07/22/20 11/16/24 Marilyn Willard MD [address] [place] [address] [address] [place] [address] Assigned Surgical Provider 08/17/20 08/16/24 Carie Varela DO [address] [place], [place] [address] Assigned Heart and Vascular Provider 08/17/20 01/19/21 Maylin May NP [address] [place] [address] Assigned Pediatric Specialist Provider 12/16/20 06/13/22 Marisa Rodrigues, RN Clinic Administrative Services Coordinator 01/15/21 02/26/21 Vilma Long MD [address] [place] [address] Assigned Heart and Vascular Provider 01/20/21 07/20/21 Yasmeen Pendleton [facility] [address] [place] [address] Pharmacist Pharmacist 06/04/21 01/15/22 Cole George LISW Lead Administrative Services Coordinator 06/13/21 10/07/21 Fletcher Up Community Health Worker 06/13/21 09/12/21 Bautista Casey MD [address] [place] [address] Assigned Heart and Vascular Provider 07/21/21 01/16/23 Jasmyn Oliver CHW Community Health Worker 09/13/21 10/07/21 Yasmeen Pendleton [facility] [address] [place] [address] 212575 Assigned MTM Pharmacist 03/22/22 01/02/23 documented as of this encounter
--- OUTSIDE RECORDS SUMMARY | 2025-10-01 18:37 | XMS_ITS | Encounter Summary ---
Author Organization [place] Address [address] [facility] [place] [address] Care Team Providers Care Emergency Management System Director Name Role Phone Julito Banuelos MD Primary Care Provider [phone] Unavailable Unavailable Susannah Blankenship [facility] Unavailable [phone] Carolyn Huynh [facility] Unavailable [phone] Vika Kevin APRN [facility] Unavailable + Marilyn Willard MD Unavailable [phone] Maylin May NP Unavailable [phone] Vilma Long MD Unavailable + [phone] Yasmeen Pendleton [facility] Unavailable [phone] Cole George Unavailable Fletchre Russell Unavailable Unavailable Bautista Casey MD Unavailable +[phone] Jasmyn Oliver Unavailable [phone] Vika Kevin APRN [facility] Primary Care Prov ider Vika Kevin APRN [facility] Primary Care Prov ider Yasmeen Pendleton [facility] Unavailable Vika Kevin APRN CONTROL VALVE MECHANIC Primary Care Prov ider Encounter Details Date Type Department Care Team (Late st Contact Info) Description 03/18/2021 MyC Medical Advice [address] [place] [address] Susannah Blankenship, [facility] [address] [facility] [address] [place] [address] Social History Tobacco Use Types Packs/Day Years [...] on file Legal Sex Female 3:22 AM PCAT INSTRUCTOR Gender Identity Not on file Sexual [...] Depression Total Score: 10 020 9:30 AM PCAT INSTRUCTOR documented as of this encounter Care Teams Emergency Management System Director Relationship Specialty Start Date End Date Julito Banuelos MD [address] [place] [address] 728572 PCP - General Family Practice 09/12/15 09/23/21 Vika Kevin APRN CONTROL VALVE MECHANIC [address] [place] [address] 894372 PCP - General Nurse Practitioner - Family 09/24/21 03/05/22 Vika Kevin APRN CONTROL VALVE MECHANIC [address] [place] [address]26 PCP - General Nurse Practitioner - Family 03/18/22 06/18/22 Vika Kevin APRN CONTROL VALVE MECHANIC [address] [place] [address] PCP - General Nurse Practitioner - Family 07/24/[address] [place] [address] Medical Records Secretary Dietitian, Registered 04/14/19 Susannah Blankenship, [facility] [address] [facility] [address] [place] [address] Pharmacist Pharmacist 08/08/19 04/15/21 [facility] [address] [place] [address] Pharmacist Pharmacist 06/25/20 04/15/21 Vika Kevin APRN CONTROL VALVE MECHANIC [address] [place] [address] Assigned PCP 07/22/20 11/16/24 Marilyn Willard MD [address] [facility] [address] [place], [place] [address] Assigned Surgical Provider 08/17/20 08/16/24 Maylin May NP [address] [place] [address] Assigned Pediatric Specialist Provider 12/16/20 06/13/22 Vilma Long MD [address] [place] [address] Assigned Heart and Vascular Provider 01/20/21 07/20/21 [facility] [address] [place] [address] 425305 Pharmacist Pharmacist 06/04/21 01/15/22 Cole George LISW Lead Drum Stenciler 06/13/21 10/07/21 Fletcher Up Community Health Worker 06/13/21 09/12/21 Bautista Casey MD [address] [place] [address] Assigned Heart and Vascular Provider 07/21/21 01/16/23 Jasmyn Oliver [facility] Community Health Worker 09/13/21 10/07/21 Yasmeen Pendleton, [facility] [address] [place] [address] Assigned MTM Pharmacist 03/22/22 01/02/23 documented as of this encounter
--- OUTSIDE RECORDS SUMMARY | 2025-10-01 18:37 | XMS_ITS | Encounter Summary ---
Author Organization [place] Address [address] [facility] [place] [address] Care Team Providers Care Biofuels Plant Superintendent Name Role Phone Angella Mendieta MD Primary Care Provider Julito Banuelos MD Primary Care Provider [phone] Julito Banuelos MD Unavailable Julito Banuelos MD Unavailable Aleshia Henriquez RD Unavailable Unavailable Mary Kay Jones [facility] Unavailable Unavailable Susannah Blankenship [facility] Unavailable [phone] Carolyn Huynh [facility] Unavailable [phone] Vika Kevin APRN ROTOR COIL TAPER Unavailable + Marilyn Willard MD Unavailable [phone] Carie Varela DO Unavailable [phone] Maylin May NP Unavailable [phone] Marisa Rodrigues RN Unavailable Unavailable Vilma Long MD Unavailable + [phone] Yasmeen Pendleton [facility] Unavailable Cole George Unavailable Fletcher Russell Unavailable Unavailable Bautista Casey MD Unavailable [phone] Jasmyn Oliver CHW Unavailable [phone] Vika Kevin APRN [facility] Primary Care Prov ider Vika Kevin APRN [facility] Primary Care Prov ider + Yasmeen Pendleton [facility] Unavailable Vika Kevin APRN [facility] Primary Care Prov ider + Encounter Details Date Type Department Care Team (Late st Contact Info) Description 08/16/2015 MyC Medical Advice [facility] [place] [address] [facility] [address] [place] [address] Jaimee Donald MD HEART [facility] [address] [facility] [address] [place], [place] [id number] Social History Tobacco Use Types Packs/Day Years Used Date Smoking Tobacco: Former Cigarettes 0.3 15 0 10/26/1961 - 10/26/1976 Smokeless Tobacco: Never Alcohol Use Standard Drinks/Week Comments Yes 0 (1 standard drink = 0.6 oz pur e alcohol) 1-2 glasses of wine weekly Comments No Sex and Gender Information Value Date Recorded Sex Assigned at Not on file 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 Gender Identity Not on file Sexual Orientation [...] Out COVID-19 12/04/2020 12/04/2020 12/05/2020 6:04 PM JAILKEEPER documented as of this encounter Care Teams Biofuels Plant Superintendent Relationship Specialty [place] [address] [place] [address] 044912 PCP - General Family Practice 07/18/15 09/11/15 Julito Banuelos MD [address] [place] [address] PCP - General Family Practice 09/12/15 09/23/21 Julito Banuelos MD [address] [place] [address] 25216 PCP - Assigned PCP 02/17/16 12/28/18 Vika Kevin APRN ROTOR COIL TAPER [address] [place] [address] PCP - General Nurse Practitioner - Family 09/24/21 03/05/22 Vika Kevin APRN ROTOR COIL TAPER [address] [place] [address] PCP - General Nurse Practitioner - Family 03/18/22 06/18/22 Vika Kevin APRN ROTOR COIL TAPER [address] [place] [address] PCP - General Nurse Practitioner - Family 07/24/22 Julito Banuelos MD [address] [place] [address] Assigned PCP 02/17/16 07/21/[address] [place] [address] Underwriting Intern Dietitian, Registered 04/14/19 Mary Kay Jones, [facility] Pharmacist 08/01/19 04/20/20 Susannah Blankenship, [facility] [address] [place] [address] Pharmacist Pharmacist 08/08/19 04/15/21 Carolyn Huynh [facility] [address] [place] [address] Pharmacist Pharmacist 06/25/20 04/15/21 Vika Kevin APRN ROTOR COIL TAPER [address] [place] [address] 664282 Assigned PCP 07/22/20 11/16/24 Marilyn Willard MD [address] [facility] [address] [place], [place] [address] Assigned Surgical Provider 08/17/20 08/16/24 Carie Varela DO [address] [place] [address] Assigned Heart and Vascular Provider 08/17/20 01/19/21 Maylin May NP [address] [facility] [place], [place] [address] Assigned Pediatric Specialist Provider 12/16/20 06/13/22 Marisa Rodrigues, RN Clinic Water Pump Assembler 01/15/21 02/26/21 Vilma Long MD [address] [place] 25[address] Assigned Heart and Vascular Provider 01/20/21 07/20/21 Yasmeen Pendleton [facility] [address] [place], [place] [address] Pharmacist Pharmacist 06/04/21 01/15/22 Cole George LISW Lead Water Pump Assembler 06/13/21 10/07/21 Fletcher Up Community Health Worker 06/13/21 09/12/21 Bautista Casey MD [address] [place], [place] [address] Assigned Heart and Vascular Provider 07/21/21 01/16/23 Jasmyn Oliver CHW Community Health Worker 09/13/21 10/07/21 Yasmeen Pendleton [facility] [address] [place] [address] Assigned MTM Pharmacist 03/22/22 01/02/23 documented as of this encounter
--- OUTSIDE RECORDS SUMMARY | 2025-10-01 18:37 | XMS_ITS | Encounter Summary ---
Author Organization [place] Address [address] [facility] [place] [address] Care Team Providers Care Legal Coordinator Name Role Phone Andrew Lu MD Primary Care Provider [phone] Niko Resendiz MD Primary Care Provider Carlie Mac MD Primary Care Provide r Angella Mendieta MD Primary Care Provider Julito Banuelos MD Primary Care Provider [phone] Julito Banuelos MD Unavailable Julito Banuelos MD Unavailable Aleshia Henriquez RD Unavailable Unavailable Mary Kay Jones [facility] Unavailable Unavailable Susannah Blankenship [facility] Unavailable [phone] Carolyn Huynh [facility] Unavailable +[phone] Vika Kevin APRN MANAGER CREATIVE Unavailable + Marilyn Willard MD Unavailable [phone] Carie Varela DO Unavailable [phone] Maylin May NP Unavailable [phone] Marisa Rodrigues RN Unavailable Unavailable Vilma Long MD Unavailable + [phone] Yasmeen Pendleton [facility] Unavailable [phone] Cole George Unavailable Fletcher Russell Unavailable Unavailable Bautista Casey MD Unavailable TatyanaJasmyn anand [facility] Unavailable [phone] Vika Kevin APRN [facility] Primary Care Prov ider Vika Kevin APRN [facility] Primary Care Prov ider Yasmeen Pendleton [facility] Unavailable [phone] Vika Kevin APRN [facility] Primary Care Prov ider Encounter Details Date Type Department Care Team (Late st Contact Info) Description 05/19/[address] [phone] Jolene Martin Social History Tobacco Use Types [...] on file 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 Gender Identity Not on file Sexual Orientation Not on file documented as of this encounter Plan of Treatment Not on file documented as of this encounter Visit Diagnoses Not on filedocumented in this encounter Additional Health Concerns Infection Onset Date Last Indicated Resolved Time Rule Out COVID-19 07/25/2020 07/25/2020 07/26/2020 3:02 PM CDT Rule Out COVID-19 12/04/2020 12/04/2020 12/05/2020 6:04 PM OILING 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 documented as of this encounter Care Teams Legal Coordinator Relationship Specialty Start Date End Date Andrew Lu MD XXX RETIRED XXX [address] [place] [phone] PCP - General 12/10/01 01/10/14 Niko Resendiz MD [address] [address] PCP - General Internal Medicine 01/11/14 01/29/14 Carlie Mac MD [address] [place] [address] 26815 PCP - General Pediatrics 01/30/14 07/17/15 Angella Mendieta MD [address] [place] [address] PCP - General Family Practice 07/18/15 09/11/15 Julito Banuelos MD [address] [place] [address] 17532 PCP - General Family Practice 09/12/15 09/23/21 Julito Banuelos MD [address] [place] [address] 22680 PCP - Assigned PCP 02/17/16 12/28/18 Vika Kevin APRN MANAGER CREATIVE [address] [place] [address]113 PCP - General Nurse Practitioner - Family 09/24/21 03/05/22 Vika Kevin APRN MANAGER CREATIVE [address] [place] [address] 11435 PCP - General Nurse Practitioner - Family 03/18/22 06/18/22 Vika Kevin APRN MANAGER CREATIVE [address] [place] [address] 895542 PCP - General Nurse Practitioner - Family 07/24/22 Julito Banuelos MD [address] [place] [address] 579962 Assigned PCP 02/17/16 07/21/20 Aleshia Henriquez, DAVE [address] [place] [address]4716 Auto Garage Mechanic Dietitian, Registered 04/14/19 Mary Kay Jones, [facility] Pharmacist 08/01/19 04/20/20 Susannah Blankenship, [facility] [address] [place] [address] 8[address] [place], [place] [address] Pharmacist Pharmacist 08/08/19 04/15/21 [facility] [address] [place], [place] [address] Pharmacist Pharmacist 06/25/20 04/15/21 Vika Kevin APRN MANAGER CREATIVE [address] [place] [address] [id number] Assigned PCP 07/22/20 11/16/24 Marilyn Willard MD [address] [facility] 394 [place], [place] 59[address]55 Assigned Surgical Provider 08/17/20 08/16/24 Carie Varela DO [address] [place], [place] [address] Assigned Heart and Vascular Provider 08/17/20 01/19/21 Maylin May, JENNY [address] [place] [address] Assigned Pediatric Specialist Provider 12/16/20 06/13/22 Marisa Rodrigues, RN Clinic Real Estate Coordinator 01/15/21 02/26/21 Vilma Long MD [address] [place] [address] Assigned Heart and Vascular Provider 01/20/21 07/20/21 Yasmeen Pendleton [facility] [address] [place] [address] Pharmacist Pharmacist 06/04/21 01/15/22 Cole George LISW Lead Real Estate Coordinator 06/13/21 10/07/21 Fletcher Up Community Health Worker 06/13/21 09/12/21 Bautista Casey MD [address] [place] [address] Assigned Heart and Vascular Provider 07/21/21 01/16/23 Jasmyn Oliver CHW Community Health Worker 09/13/21 10/07/21 Yasmeen Pendleton [facility] [address] [place] [address] [id number] Assigned MTM Pharmacist 03/22/22 01/02/23 documented as of this encounter
--- OUTSIDE RECORDS SUMMARY | 2025-10-01 18:37 | XMS_ITS | Encounter Summary ---
Author Organization [place] Address [address] [facility] [place] [address] Care Team Providers Care Examiner Rating Clerk Name Role Phone Andrew Lu MD Primary Care Provider [phone] Niko Resendiz MD Primary Care Provider Carlie Mac MD Primary Care Provide r Angella Mendieta MD Primary Care Provider Julito Banuelos MD Primary Care Provider [phone] Julito Banuelos MD Unavailable Julito Banuelos MD Unavailable Aleshia Henriquez RD Unavailable Unavailable Mary Kay Jones [facility] Unavailable Unavailable Susannah Blankenship [facility] Unavailable [phone] Carolyn Huynh [facility] Unavailable [phone] Vika Kevin APRN GENERAL FORECASTER Unavailable + Marilyn Willard MD Unavailable [phone] Carie Varela DO Unavailable [phone] Maylin May NP Unavailable [phone] Marisa Rodrigues RN Unavailable Unavailable Vilma Long MD Unavailable + [phone] Yasmeen Pendleton [facility] Unavailable [phone] Cole George Unavailable Fletcher Russell Unavailable Unavailable Bautista Casey MD Unavailable TatyanaJasmyn anand 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 Gender Identity Not on file Sexual Orientation Not on file documented as of this encounter Plan of Treatment Not on file documented as of this encounter Visit Diagnoses Not on filedocumented in this encounter Additional Health Concerns Infection Onset Date Last Indicated Resolved Time Rule Out COVID-19 07/25/2020 07/25/2020 07/26/2020 3:02 PM CDT Rule Out COVID-19 12/04/2020 12/04/2020 12/05/2020 6:04 PM PIPE COVERER documented as of this encounter Care Teams Examiner Rating Clerk Relationship Specialty Start Date End Date Andrew Lu MD XXX RETIRED XXX [address] [place] [phone] PCP - General 12/10/01 01/10/14 Niko Resendiz MD [address] [address] PCP - General Internal Medicine 01/11/14 01/29/14 Carlie Mac MD [address] [place] [address] PCP - General Pediatrics 01/30/14 07/17/15 Angella Mendieta MD [address] [place] [address] 13814 PCP - General Family Practice 07/18/15 09/11/15 Julito Banuelos MD [address] [place] [address] 11199 PCP - General Family Practice 09/12/15 09/23/21 Julito Banuelos MD [address] [place] [address] 36216 PCP - Assigned PCP 02/17/16 12/28/18 Vika Kevin APRN GENERAL FORECASTER [address] [place] [address] 32709 PCP - General Nurse Practitioner - Family 09/24/21 03/05/22 Vika Kevin APRN GENERAL FORECASTER [address] [place] [address] PCP - General Nurse Practitioner - Family 03/18/22 06/18/22 Vika Kevin APRN GENERAL FORECASTER [address] [place] [address] 839952 PCP - General Nurse Practitioner - Family 07/24/22 Julito Banuelos MD [address] [place] [address] 561112 Assigned PCP 02/17/16 07/21/20 Aleshia Henriquez, DAVE [address] [place] [address] Sliver Cutter Dietitian, Registered 04/14/19 Mary Kay Jones, [facility] Pharmacist 08/01/19 04/20/20 Susannah Blankenship, [facility] [address] [place] [address] 812 [place], [place] [address] Pharmacist Pharmacist 08/08/19 04/15/21 [facility] [address] [place], [place] [address] Pharmacist Pharmacist 06/25/20 04/15/21 Vika Kevin APRN GENERAL FORECASTER [address] [place] [address] 062962 Assigned PCP 07/22/20 11/16/24 Marilyn Willard MD 420 [facility] 394 [place], [place] [address] Assigned Surgical Provider 08/17/20 08/16/24 Carie Varela DO [address] [place], [place] [address] Assigned Heart and Vascular Provider 08/17/20 01/19/21 Maylin May, JENNY [address] [place] [address] Assigned Pediatric Specialist Provider 12/16/20 06/13/22 Marisa Rodrigues, RN Clinic Data Management 01/15/21 02/26/21 Vilma Long MD [address] [place] [address] Assigned Heart and Vascular Provider 01/20/21 07/20/21 Yasmeen Pendleton [facility] [address] [place] [address] Pharmacist Pharmacist 06/04/21 01/15/22 Cole George LISW Lead Data Management 06/13/21 10/07/21 Fletcher Up Community Health Worker 06/13/21 09/12/21 Bautista Casey MD [address] [place] [address] Assigned Heart and Vascular Provider 07/21/21 01/16/23 Jasmyn Oliver CHW Community Health Worker 09/13/21 10/07/21 Yasmeen Pendleton [facility] [address] [place] [address] 872605 Assigned MTM Pharmacist 03/22/22 01/02/23 documented as of this encounter
--- OUTSIDE RECORDS SUMMARY | 2025-10-01 18:37 | XMS_ITS | Patient Health Record ---
Author Organization [facility] Address [address] [place] [address] Care Team Providers Care Tooling Engineer Name Role Phone Vin Julito Primary Care Provider SAMMIE Go Unavailable [phone] Vika Kevin Unavailable Unavailable Reason For Referral [...] MCG Tablet Oral; Duration: 90 Active Nystatin 554861 UNIT/ML Suspension Mouth/Throat; Duration: 10 Active Sertraline HCl 100 MG Tablet Oral; Duration: 90 Active Nystatin 822267 UNIT/ML Suspension 4 ml Mouth/Throat Four times [...] W/U Status Risk Notes Problem Throat pain (466677996) Throat pain (R07.0) Active confirmed Plan Of Treatment No Information Insurance Providers Payer Name Payer Address Payer Phone Subscriber Number Group Number Insured Name Patient Relationship to Insured Coverage Start Date Coverage End Date [employer] [place] [address] [address] [place], [place] [id number] 2000 [id number] Pat Emmanuel Self - patient is the insured Medical (General) History Medical History History ICD Code Asthma Heart HTN Easy bleeding Diabetes Surgical History Surgery Date(Month/Year) Hysterectomy
--- OUTSIDE RECORDS SUMMARY | 2025-10-01 18:37 | XMS_ITS | Encounter Summary ---
Author Organization [place] Address [address] [facility] [place] [address] Care Team Providers Care Railroad Firer Name Role Phone Carlie Mac MD Primary Care Provide r Angella Mendieta MD Primary Care Provider Julito Banuelos MD Primary Care Provider Julito Banuelos MD Unavailable Julito Banuelos MD Unavailable Aleshia Henriquez RD Unavailable Unavailable Mary Kay Jones [facility] Unavailable Unavailable Susannah Blankenship [facility] Unavailable Carolyn Huynh [facility] Unavailable Vika Kevin APRN STUDENT FINANCE ADVISOR Unavailable + Marilyn Willard MD Unavailable Carie Varela DO Unavailable Maylin May NP Unavailable [phone] Marisa Hernandez RN Unavailable Unavailable Vilma Long MD Unavailable Yasmeen Pendleton [facility] Unavailable [phone] Cole George Unavailable Fletcher Russell Unavailable Unavailable IpBautista MD Unavailable Jasmyn Oliver CH Unavailable [phone] Vika Kevin APRN [facility] Primary Care Prov ider Vika Kevin APRN [facility] Primary Care Prov ider Yasmeen Pendleton [facility] Unavailable [phone] Vika Kevin APRN [facility] Primary Care Prov ider Encounter Details Date Type Department Care Team (Late st Contact Info) Description 10/12/2014 My[facility] Medical Advice [address] [address] Sara Robison Y, 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 AND 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 Social History Tobacco Use Types Packs/Day Years Used Date Smoking Tobacco: Former Cigarettes 0.3 15 0 10/26/1961 - 10/26/1976 Smokeless Tobacco: Never Alcohol Use Standard Drinks/Week Comments Yes 0 (1 standard drink = 0.6 oz pur e alcohol) 1-2 glasses of wine weekly Comments No Sex and Gender Information Value Date Recorded Sex Assigned at Not on file Legal Sex Female 3: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 Gender Identity Not on file Sexual Orientation [...] Out COVID-19 12/04/2020 12/04/2020 12/05/2020 6:04 PM TRANSVERSE ABDOMINAL MUSCLE SURGEON documented as of this encounter Care Teams Railroad Firer Relationship Specialty Start Date End Date Carlie Mac MD [address] [place] [address] PCP - General Pediatrics 01/30/14 07/17/15 Angella Mendieta MD [address] [place] [address] PCP - General Family Practice 07/18/15 09/11/15 Julito Banuelos MD [address] [place] [address] PCP - General Family Practice 09/12/15 09/23/21 Julito Banuelos MD [address] [place] [address] PCP - Assigned PCP 02/17/16 12/28/18 Vika Kevin APRN STUDENT FINANCE ADVISOR [address] [place] [address] PCP - General Nurse Practitioner - Family 09/24/21 03/05/22 Vika Kevin APRN STUDENT FINANCE ADVISOR [address] [place] [address] 51807 PCP - General Nurse Practitioner - Family 03/18/22 06/18/22 Vika Kevin APRN STUDENT FINANCE ADVISOR [address] [place] [address] PCP - General Nurse Practitioner - Family 07/24/22 Julito Banuelos MD [address] [place] [address] Assigned PCP 02/17/16 07/21/[address] [place] [address] Manager Commercial Real Estate Dietitian, Registered 04/14/19 Mary Kay Jones, [facility] Pharmacist 08/01/19 04/20/20 Susannah Blankenship, [facility] [address] [facility] [address] [place] [address] Pharmacist Pharmacist 08/08/19 04/15/21 Carolyn Huynh, [facility] [address] [place], [place] [address] Pharmacist Pharmacist 06/25/20 04/15/21 Vika Kevin, GEOGRAPHICAL HISTORIAN STUDENT FINANCE ADVISOR [address] [place] [address] 910802 Assigned PCP 07/22/20 11/16/24 Marilyn Willard MD 420 [facility] [address] [place], [place] [address] Assigned Surgical Provider 08/17/20 08/16/24 Carie Varela DO [address] [place] [address] Assigned Heart and Vascular Provider 08/17/20 01/19/21 Maylin May NP [address] [place] [address] Assigned Pediatric Specialist Provider 12/16/20 06/13/22 Marisa Rodrigues, RN Clinic Body Repairer 01/15/21 02/26/21 Vilma Long MD [address] [place] [address] Assigned Heart and Vascular Provider 01/20/21 07/20/21 Yasmeen Pendleton [facility] [address] [place] [address] Pharmacist Pharmacist 06/04/21 01/15/22 Cole George LISW Lead Body Repairer 06/13/21 10/07/21 Fletcher Up Community Health Worker 06/13/21 09/12/21 Bautista Casey MD [address] [place] [address] Assigned Heart and Vascular Provider 07/21/21 01/16/23 Jasmyn Oliver CHW Community Health Worker 09/13/21 10/07/21 Yasmeen Pendleton [facility] [address] [place] [address] Assigned MTM Pharmacist 03/22/22 01/02/23 documented as of this encounter
--- OUTSIDE RECORDS SUMMARY | 2025-10-01 18:37 | XMS_ITS | Encounter Summary ---
Author Organization [place] Address [address] [facility] [place] [address] Care Team Providers Care Education Sales Consultant Name Role Phone Cortez Lu MD Primary Care Provider [phone] Niko Resendiz MD Primary Care Provider Carlie Mac MD Primary Care Provide r Angella Mendieta MD Primary Care Provider Julito Banuelos MD Primary Care Provider [phone] Julito Banuelos MD Unavailable Julito Banuelos MD Unavailable Aleshia Henriquez RD Unavailable Unavailable Mary Kay Jones [facility] Unavailable Unavailable Susannah Blankenship [facility] Unavailable [phone] Carolyn Huynh [facility] Unavailable [phone] Vika Kevin APRN MANAGER RESTAURANT Unavailable + Marilyn Willard MD Unavailable [phone] Carie Varela DO Unavailable [phone] Maylin May NP Unavailable [phone] Marisa Rodrigues RN Unavailable Unavailable Vilma Long MD Unavailable + [phone] Yasmeen Pendleton [facility] Unavailable + [phone] Cole George Unavailable Fletcher Russell Unavailable Unavailable Bautista Casey MD Unavailable [phone] TatyanaJasmyn anand [facility] Unavailable [phone] Vika Kevin APRN [facility] Primary Care Prov ider Vika Kevin APRN [facility] Primary Care Prov ider Yasmeen Pendleton [facility] Unavailable + [phone] Vika [facility] Primary Care Prov ider Encounter Details Date Type Department Care Team (Late st Contact Info) Description 12/01/2013 Office Visit-[facility] Heart [facility] [address] [facility] [address] [place] [address] Cristy Hanna, JAIME [facility] XXX RESIGNED XXX [address] [facility] [address] [place] [id number] Social History Tobacco Use Types Packs/Day Years Used Date Smoking Tobacco: Former Cigarettes 0.3 15 0 10/26/1961 - 10/26/1976 Smokeless Tobacco: Never Alcohol Use Standard Drinks/Week Comments Yes 0 (1 standard drink = 0.6 oz pur e alcohol) 1-2 glasses of wine weekly Comments No Sex and Gender Information Value Date Recorded Sex Assigned at Not on file Legal Sex Female 3:22 AM MARINE ENGINEER CPVEC Gender Identity Not on file Sexual Orientation [...] [facility] CURRENT DIAGNOSES 1. 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 - Hyperlipidemia mixed, 272.2 [...] daily 10. Nasacort AQ 55 mcg Aerosol, [place], Take as Directed 11. Plavix 75 mg [...] the pleasure of seeing Marialuisa Cosby in [facility]. She is a 73-year-old white female with a history of coronary artery disease, hypertension, diabetes, dyslipidemia, and asthma who is here today to reevaluate her palpitations. Her cardiovascular history includes hypertension, diabetes, and dyslipidemia. In December,, whilevisiting in [place] she had a nvo-YY-yyccongcb myocardial infarction and underwent an angiogram with PCI to the proximal and mid circumflex. LV function has been normal by echocardiogram. Apparently the steak tenderizer machine in [place] recommended lifelong Plavix. She was seen by [...] tonsillectomy Cardiac/Vasc Procedures-Invasive: left heart cath 12/2012 ([place]) Cardiology Procedures-NonInvasive: echocardiogram Jun 2007, myocardial perfusion (Nuc) Jun 2007, echo 12/2012 ([place]), stress echo February 2013 Cardiac Cath Results: 12/2012 Wynot Resolute NELIA to the mid and prox [...] - lives with ; Place of - [place]; REVIEW OF SYSTEMS GENERAL fatigue, feels spacey [...] Weight- 215.00 lbs. Height- 67 BMI Measurement: PulpWorks Error: [[employer]][Instabeat SQL Content Analyst Commercial Collector][SQL Content Analyst]Divide by zero error encountered. - 29902 CONSTITUTIONAL well developed, well nourished, in no [...] 2. Coronary artery disease. She had a kyt-TJ-xibneduac myocardial infarction in December and remains on [...] Out COVID-19 12/04/2020 12/04/2020 12/05/2020 6:04 PM MARINE ENGINEER CPVEC documented as of this encounter Care Teams Education Sales Consultant Relationship Specialty Start Date End Date Cortez Lu MD XXX RETIRED XXX [address] [place] [phone] PCP - General 12/10/01 01/10/14 Niok Resendiz MD [address] [place] [address] PCP - General Internal Medicine 01/11/14 01/29/14 Carlie Mac MD [address] [place] [address] PCP - General Pediatrics 01/30/14 07/17/15 Angella Mendieta MD [address] [place] [address] PCP - General Family Practice 07/18/15 09/11/15 Julito Banuelos MD [address] [place] [address]13 PCP - General Family Practice 09/12/15 09/23/21 Julito Banuelos MD [address] [place] [address] PCP - Assigned PCP 02/17/16 12/28/18 Vika Kevin APRN MANAGER RESTAURANT [address] [place] [address] PCP - General Nurse Practitioner - Family 09/24/21 03/05/22 Vika Kevin APRN MANAGER RESTAURANT [address] [place] [address] PCP - General Nurse Practitioner - Family 03/18/22 06/18/22 Vika Kevin APRN MANAGER RESTAURANT [address] [place] [address] PCP - General Nurse Practitioner - Family 07/24/22 Juliot Banuelos MD [address] [place] [address] Assigned PCP 02/17/16 07/21/[address] [place] [address] Decker Operator Dietitian, Registered 04/14/19 Mary Kay Jones [facility] Pharmacist 08/01/19 04/20/20 Susannah Blankenship [facility] [address] [place] [address] 8[address] [place] [address] Pharmacist Pharmacist 08/08/19 04/15/21 Carolyn Huynh, [facility] [address] [place] [address] Pharmacist Pharmacist 06/25/20 04/15/21 Vika Kevin, LATEX CASTER MANAGER RESTAURANT [address] [place], [place] [address] Assigned PCP 07/22/20 11/16/24 Marilyn Willard MD 420 [facility] [address] [place] [address] Assigned Surgical Provider 08/17/20 08/16/24 Carie Varela DO [address] [place] [address] Assigned Heart and Vascular Provider 08/17/20 01/19/21 Maylin May NP [address] [place], [place] [id number] Assigned Pediatric Specialist Provider 12/16/20 06/13/22 Marisa Rodrigues, RN Clinic Paper Cap Machine Operator 01/15/21 02/26/21 Vilma Long MD [address] [place] [address] Assigned Heart and Vascular Provider 01/20/21 07/20/21 Yasmeen Pendleton [facility] [address] [place] [address] Pharmacist Pharmacist 06/04/21 01/15/22 Cole George LISW Lead Paper Cap Machine Operator 06/13/21 10/07/21 Fletcher Up Community Health Worker 06/13/21 09/12/21 Bautista Casey MD [address] [place] [address] Assigned Heart and Vascular Provider 07/21/21 01/16/23 Jasmyn Oliver CHW Community Health Worker 09/13/21 10/07/21 Yasmeen Pendleton, [facility] [address] [place], [place] [address] Assigned MTM Pharmacist 03/22/22 01/02/23 documented as of this encounter
--- OUTSIDE RECORDS SUMMARY | 2025-10-01 18:37 | XMS_ITS | Encounter Summary ---
Author Organization [place] Address [address] [place] [address] Care Team Providers Care Tissue Recovery Technician Name Role Phone Cortez Lu MD Primary Care Provider [phone] Niko Resendiz MD Primary Care Provider Carlie Mac MD Primary Care Provide r Angella Mendieta MD Primary Care Provider Julito Banuelos MD Primary Care Provider [phone] Julito Banuelos MD Unavailable Julito Banuelos MD Unavailable Aleshia Henriquez RD Unavailable Unavailable Mary Kay Jones [facility] Unavailable Unavailable Susannah Blankenship [facility] Unavailable +[phone] Carolyn Huynh [facility] Unavailable [phone] Vika Kevin APRN GAS PUMP ATTENDANT Unavailable + Marilyn Willard MD Unavailable [phone] Carie Varela DO Unavailable +[phone] Maylin May NP Unavailable [phone] Marisa Rodrigues RN Unavailable Unavailable Vilma Long MD Unavailable + [phone] Yasmeen Pendleton [facility] Unavailable + [phone] Cole George Unavailable Fletcher Russell Unavailable Unavailable Bautista Casey MD Unavailable +[phone] TatyanaJasmyn anand [facility] Unavailable [phone] Vika Kevin APRN [facility] Primary Care Prov ider Vika Kevin APRN [facility] Primary Care Prov ider Yasmeen Pendleton [facility] Unavailable + [phone] [facility] Primary Care Prov ider Encounter Details Date Type Department Care Team (Late st Contact Info) Description 11/14/2013 Office Visit-[facility] Heart [facility] [address] [facility] [address] [place] [phone] Cristy Hanna, JAIME [facility] XXX RESIGNED XXX [address] [facility] [address] [place] [id number] Social History Tobacco Use Types Packs/Day Years Used Date Smoking Tobacco: Former Cigarettes 0.3 15 0 10/26/1961 - 10/26/1976 Smokeless Tobacco: Never Alcohol Use Standard Drinks/Week Comments Yes 0 (1 standard drink = 0.6 oz pur e alcohol) 1-2 glasses of wine weekly Comments No Sex and Gender Information Value Date Recorded Sex Assigned at Not on file Legal Sex Female 3:22 AM HAND LACER Gender Identity Not on file Sexual Orientation [...] old Referring Physician: CORTEZ LU Referring Clinic: [facility] CURRENT DIAGNOSES 1. Diabetes Hxuverzc-Chy-Hfmqxws Dependent, 250.00 2. - Hyperlipidemia mixed, 272.2 [...] daily 10. Nasacort AQ 55 mcg Aerosol, [place], Take as Directed 11. Plavix 75 mg [...] the pleasure of meeting Marialuisa James, at [facility]. She is a 73-year-old white female with a history of coronary artery disease, hypertension, diabetes mellitus, dyslipidemia and asthma, who is here today for evaluation of pal pitations, which awoke her from sleep. Her cardiovascular history includes hypertension, diabetes mellitus and dyslipidemia. In December 2012while in [place] she had a non-ST elevation myocardial infarction and underwent angiogram with PCI to the proximal and mid circumflex. LV function has been normal by echocardiogram. Apparently the car diologist in [place] recommended lifelong Plavix. She was last seen [...] Leg syndrome Past Cardiac Illnesses: CAD, s/p MS Surgeries/Procedures - General: hysterectomy, tonsillectomy Cardiac/Vasc Procedures-Invasive: left heart cath 12/2012 ([place]) Cardiology Procedures-NonInvasive: echocardiogram Jun 2007, myocardial perfusion (Nuc) Jun 2007, echo 12/2012 ([place]), stress echo February 2013 Cardiac Cath Results: 12/2012 Moran Resolute NELIA to the mid and prox [...] - lives with and been living in [place] for 3 months; Place of - [place]; REVIEW OF SYSTEMS GENERAL fatigue, weight loss, [...] takes allergy shots, allergies get worse in [place] they can get bad in [place] PHYSICAL EXAMINATION VITAL SIGNS: Blood Pressure: [...] Out COVID-19 12/04/2020 12/04/2020 12/05/2020 6:04 PM HAND LACER documented as of this encounter Care Teams Tissue Recovery Technician Relationship Specialty Start Date End Date Cortez Lu MD XXX RETIRED XXX [address] [place] [phone] PCP - General 12/10/01 01/10/14 Niko Resendiz MD [address] [address] PCP - General Internal Medicine 01/11/14 01/29/14 Carlie Mac MD [address] [place] [address] PCP - General Pediatrics 01/30/14 07/17/15 Angella Mendieta MD [address] [place] [address] PCP - General Family Practice 07/18/15 09/11/15 Julito Banuelos MD [address] [place] [address] PCP - General Family Practice 09/12/15 09/23/21 Julito Banuelos MD [address] [place] [address] PCP - Assigned PCP 02/17/16 12/28/18 Vika Kevin APRN GAS PUMP ATTENDANT [address] [place] [address] PCP - General Nurse Practitioner - Family 09/24/21 03/05/22 Vika Kevin APRN GAS PUMP ATTENDANT [address] [place] [address] PCP - General Nurse Practitioner - Family 03/18/22 06/18/22 Vika Kevin APRN GAS PUMP ATTENDANT [address] [place] [address] PCP - General Nurse Practitioner - Family 07/24/22 Julito Banuelos MD [address] [place] [address] Assigned PCP 02/17/16 07/21/[address] [place] [address] Slash Trimmer Dietitian, Registered 04/14/19 Mary Kay Jones [facility] Pharmacist 08/01/19 04/20/20 Susannah Blankenship [facility] [address] [place] [address] 8[address] [place] [address] Pharmacist Pharmacist 08/08/19 04/15/21 Carolyn Huynh [facility] [address] [place] [address] Pharmacist Pharmacist 06/25/20 04/15/21 Vika Kevin APRN GAS PUMP ATTENDANT [address] [place], [place] [address] Assigned PCP 07/22/20 11/16/24 Marilyn Willard MD [address] [facility] [address] [place], [place] [address] Assigned Surgical Provider 08/17/20 08/16/24 Carie Varela DO [address] [place] [address] Assigned Heart and Vascular Provider 08/17/20 01/19/21 Maylin May NP [address] [place], [place] [id number] Assigned Pediatric Specialist Provider 12/16/20 06/13/22 Marisa Rodrigues, RN [facility] [place] 01/15/21 02/26/21 Vilma Long MD [address] [place] [address] Assigned Heart and Vascular Provider 01/20/21 07/20/21 Yasmeen Pendleton [facility] [address] [place], [place] [address] Pharmacist Pharmacist 06/04/21 01/15/22 Cole George LISW Lead [place] 06/13/21 10/07/21 Fletcher Up Community Health Worker 06/13/21 09/12/21 Bautista Casey MD [address] [place] [address] Assigned Heart and Vascular Provider 07/21/21 01/16/23 Jasmyn Oliver CHW Community Health Worker 09/13/21 10/07/21 Yasmeen Pendleton [facility] [address] [place], [place] [address] Assigned MTM Pharmacist 03/22/22 01/02/23 documented as of this encounter
--- OUTSIDE RECORDS SUMMARY | 2025-10-01 18:37 | XMS_ITS | Encounter Summary ---
Author Organization [facility] Address [address] [facility] [place] [address] Care Team Providers Care Pattern Filer Name Role Phone Andrew Lu MD Primary Care Provider [phone] Niko Resendiz MD Primary Care Provider Carlie Mac MD Primary Care Provide r Angella Mendieta MD Primary Care Provider Julito Banuelos MD Primary Care Provider [phone] Julito Banuelos MD Unavailable Julito Banuelos MD Unavailable Aleshia Henriquez RD Unavailable Unavailable Mary Kay Jones [facility] Unavailable Unavailable Susannah Blankenship [facility] Unavailable [phone] Carolyn Huynh [facility] Unavailable [phone] Vika Kevin APRN INSPECTOR MATERIAL DISPOSITION Unavailable + Marilyn Willard MD Unavailable [phone] Carie Varela DO Unavailable [phone] Maylin May NP Unavailable [phone] Marisa Rodrigues RN Unavailable Unavailable Vilma Long MD Unavailable + [phone] Yasmeen Pendleton [facility] Unavailable + [phone] Cole George Unavailable Fletcher Russell Unavailable Unavailable Bautista Casey MD Unavailable [phone] DemetriusJasmyn wright [facility] Unavailable [phone] Vika Kevin APRN [facility] Primary Care Prov ider Vika Kevin APRN [facility] Primary Care Prov ider Yasmeen Pendleton [facility] Unavailable + [phone] Vika Kevin APRN [facility] Primary Care Prov ider Encounter Details Date Type Department Care Team (Late st Contact Info) Description 02/04/[address] [phone] Veronica [facility] Social History Tobacco Use Types Packs/Day Years Used Date Smoking Tobacco: Former Cigarettes 0.3 15 0 10/26/1961 - 10/26/1976 Smokeless Tobacco: Never Alcohol Use Standard Drinks/Week Comments Yes 0 (1 standard drink = 0.6 oz pur e alcohol) 1-2 glasses of wine weekly Comments No Sex and Gender Information Value Date Recorded Sex Assigned at Not on file Legal Sex Female 3:22 AM DRIVER GUARD Gender Identity Not on file Sexual Orientation [...] Out COVID-19 12/04/2020 12/04/2020 12/05/2020 6:04 PM DRIVER GUARD documented as of this encounter Care Teams Pattern Filer Relationship Specialty Start Date End Date Anrdew Lu MD XXX RETIRED XXX [address] [place] [phone] PCP - General 12/10/01 01/10/14 Niko Resendiz MD [address] [place] [address] PCP - General Internal Medicine 01/11/14 01/29/14 Carlie Mac MD [address] [place] [address] PCP - General Pediatrics 01/30/14 07/17/15 Angella Mendieta MD [address] [place] [address] PCP - General Family Practice 07/18/15 09/11/15 Julito Banuelos MD [address] [place] [address] PCP - General Family Practice 09/12/15 09/23/21 Julito Banuelos MD [address] [place] [address] PCP - Assigned PCP 02/17/16 12/28/18 Vika Kevin APRN INSPECTOR MATERIAL DISPOSITION [address] [place] [address] PCP - General Nurse Practitioner - Family 09/24/21 03/05/22 Vika Kevin APRN INSPECTOR MATERIAL DISPOSITION [address] [place] [address] PCP - General Nurse Practitioner - Family 03/18/22 06/18/22 Vika Kevin APRN INSPECTOR MATERIAL DISPOSITION [address] [place] [address] 989382 PCP - General Nurse Practitioner - Family 07/24/22 Julito Banuelos MD [address] [place] [address] 022612 Assigned PCP 02/17/16 07/21/[address] [place] [address] Assistant Case Manager Dietitian, Registered 04/14/19 Mary Kay Jones, [facility] Pharmacist 08/01/19 04/20/20 [facility] [address] [place] [address] 8[address] [place], [place] [address] Pharmacist Pharmacist 08/08/19 04/15/21 [facility] [address] [place], [place] [address] Pharmacist Pharmacist 06/25/20 04/15/21 Vika Kevin APRN INSPECTOR MATERIAL DISPOSITION [address] [place] [address] 625152 Assigned PCP 07/22/20 11/16/24 Marilyn [place] MD [address] [place] [address] 394 [place] [address] Assigned Surgical Provider 08/17/20 08/16/24 Carie Varela DO [address] [place], [place] [address] Assigned Heart and Vascular Provider 08/17/20 01/19/21 Maylin May NP [address] [place], [place] [address] Assigned Pediatric Specialist Provider 12/16/20 06/13/22 Marisa Rodrigues, RN Clinic Fast Food Shift Lead 01/15/21 02/26/21 Vilma Long MD [address] [place] [address] Assigned Heart and Vascular Provider 01/20/21 07/20/21 [facility] [address] [place] [address] Pharmacist Pharmacist 06/04/21 01/15/22 Cole George LISW Lead Fast Food Shift Lead 06/13/21 10/07/21 Fletcher Up Community Health Worker 06/13/21 09/12/21 Bautista Casey MD [address] [place] [address] Assigned Heart and Vascular Provider 07/21/21 01/16/23 Jasmyn Oliver CHW Community Health Worker 09/13/21 10/07/21 [facility] [address] [place] [address] Assigned MTM Pharmacist 03/22/22 01/02/23 documented as of this encounter
--- OUTSIDE RECORDS SUMMARY | 2025-10-01 18:37 | XMS_ITS | Encounter Summary ---
Author Organization [place] Address [address] [facility] [place] [address] Care Team Providers Care Morgue Keeper Name Role Phone Julito Banuelos MD Primary Care Provider [phone] Unavailable Unavailable Susannah Blankenship [facility] Unavailable [phone] Carolyn Huynh [facility] Unavailable [phone] Vika Kevin APRN [facility] Unavailable + Marilyn Willard MD Unavailable [phone] Carie Varela DO Unavailable [phone] Maylin May NP Unavailable [phone] Marisa Hernandez RN Unavailable Unavailable Vilma Long MD Unavailable + [phone] Yasmeen Pendleton [facility] Unavailable Cole George Unavailable Fletcher Russell Unavailable Unavailable Bautista Casey MD Unavailable [phone] Jasmyn Oliver Unavailable [phone] Vika Kevin APRN [facility] Primary Care Prov ider Vika Kevin APRN [facility] Primary Care Prov ider Yasmeen Pendleton [facility] Unavailable [phone] Vika Kevin APRN BACCARAT MANAGER Primary Care Prov ider Encounter Details Date Type Department Care Team (Late st Contact Info) Description 01/07/2021 MyC Medical Advice [facility] [address] [facility] [address] [place] [address] [facility] [address] [place] [address] Social History Tobacco Use Types [...] on file Legal Sex Female 3:22 AM DAIRY FARM MANAGER Gender Identity Not on file Sexual [...] Depression Total Score: 10 020 9:30 AM DAIRY FARM MANAGER documented as of this encounter Care Teams Morgue Keeper Relationship Specialty Start Date End Date Julito Banuelos MD [address] [place] [address] PCP - General Family Practice 09/12/15 09/23/21 Vika Kevin APRN BACCARAT MANAGER [address] [place] [address] PCP - General Nurse Practitioner - Family 09/24/21 03/05/22 Vika Kevin APRN BACCARAT MANAGER [address] [place] [address] PCP - General Nurse Practitioner - Family 03/18/22 06/18/22 Vika Kevin, JAIME BACCARAT MANAGER [address] [place] [address] PCP - General Nurse Practitioner - Family 07/24/[address] [place] [address] Laboratory Technician Dietitian, Registered 04/14/19 Susannah Blankenship, [facility] [address] [place] [address] 8[address] [place] [address] Pharmacist Pharmacist 08/08/19 04/15/21 Carolyn Huynh [facility] [address] [place] [address] Pharmacist Pharmacist 06/25/20 04/15/21 Vika Kevin, JIAME BACCARAT MANAGER [address] [place] [address] Assigned PCP 07/22/20 11/16/24 Marilyn Willard MD [address] [place] [address] [address] [place] [address] Assigned Surgical Provider 08/17/20 08/16/24 Carie Varela DO [address] [place] [address] Assigned Heart and Vascular Provider 08/17/20 01/19/21 Maylin May NP [address] [place] [address] Assigned Pediatric Specialist Provider 12/16/20 06/13/22 Marisa Rodrigues, RN Clinic Automatic Stacker 01/15/21 02/26/21 Vilma Long MD [address] [place] [address] Assigned Heart and Vascular Provider 01/20/21 07/20/21 [facility] [address] [place] [address] 648635 Pharmacist Pharmacist 06/04/21 01/15/22 Cole George LISW Lead Automatic Stacker 06/13/21 10/07/21 Fletcher Up Community Health Worker 06/13/21 09/12/21 Bautista Casey MD [address] [place] [address] Assigned Heart and Vascular Provider 07/21/21 01/16/23 Jasmyn Oliver CHW Community Health Worker 09/13/21 10/07/21 Yasmeen Pendleton [facility] [address] [place] [address] Assigned MTM Pharmacist 03/22/22 01/02/23 documented as of this encounter
--- OUTSIDE RECORDS SUMMARY | 2025-10-01 18:37 | XMS_ITS | Encounter Summary ---
Author Organization [place] Address [address] [facility] [place] [address] Care Team Providers Care Investment Accountant Name Role Phone Julito Banuelos MD Primary Care Provider [phone] Julito Banuelos MD Unavailable Aleshia Henriquez RD Unavailable Unavailable Susannah Blankenship [facility] Unavailable [phone] Carolyn Huynh [facility] Unavailable [phone] Vika Kevin APRN [place] Unavailable + Marilyn Willard MD Unavailable [phone] Carie Varela DO Unavailable [phone] Maylin May NP Unavailable [phone] Marisa Hernandez RN Unavailable Unavailable Vilma Long MD Unavailable + [phone] Yasmeen Pendleton [facility] Unavailable Cole George Unavailable Fletcher Russell Unavailable Unavailable Bautista Casey MD Unavailable [phone] Jasmyn Oliver Unavailable [phone] Vika Kevin APRN [place] Primary Care Prov ider Vika Kevin APRN [facility] Primary Care Prov ider Yasmeen Pendleton [facility] Unavailable + [phone] Vika Kevin APRN [facility] Primary Care [facility] ider Reason for Visit * Reason Comments Medication Refill Encounter Details Date Type Department Care Team (Late st Contact Info) Description 06/26/[address] [address] [place] [address] [place] [address] Medication Refill Social History Tobacco Use [...] on file Legal Sex Female 3:22 AM LARRIMAN Gender Identity Not on file Sexual Orientation [...] per RN protocol Leslye Steiner RN, BSN [place] Triage * Telephone Encounter - Maylin Diaz - 06/26/2020 9:18 AM CDT Patient's calling already to see if this can be done today. Advised of the refill policy. Francisca Diaz, Bookkeeping Manager documented in this encounter Plan of Treatment Not on file documented as of this encounter Visit Diagnoses Diagnosis Environmental allergies Allergic rhinitis, cause unspecified documented in this encounter Additional Health Concerns Infection Onset Date Last Indicated Resolved Time Rule Out COVID-19 07/25/2020 07/25/2020 07/26/2020 3:02 PM CDT Rule Out COVID-19 12/04/2020 12/04/2020 12/05/2020 6:04 PM LARRIMAN Assessment Noted Time PHQ-9 Depression Total Score: 12 020 3:35 PM CDT documented as of this encounter Care Teams Investment Accountant Relationship Specialty Start Date End Date Julito Banuelos MD [address] [place] [address] PCP - General Family Practice 09/12/15 09/23/21 Vika Kevin APRN [place] [address] [place] [address] PCP - General Nurse Practitioner - Family 09/24/21 03/05/22 iVka Kevin APRN [place] [address] [place] [address] PCP - General Nurse Practitioner - Family 03/18/22 06/18/22 Vika Kevin APRN [place] [address] [place] [address] PCP - General Nurse Practitioner - Family 07/24/22 Julito Banuelos MD [address] [place] [address] Assigned PCP 02/17/16 07/21/[address] [place] [address] Web Interface Developer Dietitian, Registered 04/14/19 Susannah Blankenship, [facility] [address] [facility] [address] [place] [address] Pharmacist Pharmacist 08/08/19 04/15/21 Carolyn Huynh, [facility] [address] [place] [address] Pharmacist Pharmacist 06/25/20 04/15/21 Vika Kevin APRN [place] [address] [place] [address] 433162 Assigned PCP 07/22/20 11/16/24 Marilyn Willard MD [address] [facility] [address] [place], [place] [address] Assigned Surgical Provider 08/17/20 08/16/24 Carie Varela DO [address] [place] [id number] Assigned Heart and Vascular Provider 08/17/20 01/19/21 Maylin May NP [address] [place] [address] Assigned Pediatric Specialist Provider 12/16/20 06/13/22 Marisa Rodrigues, RN Clinic Manager Fitness 01/15/21 02/26/21 Vilma Long MD [address] [place] [address] Assigned Heart and Vascular Provider 01/20/21 07/20/21 Yasmeen Pendleton [facility] [address] [place], [place] [address] Pharmacist Pharmacist 06/04/21 01/15/22 Cole George LISW Lead Manager Fitness 06/13/21 10/07/21 Fletcher Up Community Health Worker 06/13/21 09/12/21 Bautista Casey MD [address] [place], [place] [address] Assigned Heart and Vascular Provider 07/21/21 01/16/23 Jasmyn Oliver CHW Community Health Worker 09/13/21 10/07/21 Yasmeen Pendleton [facility] [address] [place] [address] Assigned MTM Pharmacist 03/22/22 01/02/23 documented as of this encounter
--- OUTSIDE RECORDS SUMMARY | 2025-10-01 18:37 | XMS_ITS | Encounter Summary ---
Author Organization [place] Address [address] [facility] [place] [address] Care Team Providers Care Motorboat Mechanic Inboard Name Role Phone Andrew Lu MD Primary Care Provider [phone] Niko Resendiz MD Primary Care Provider Carlie Mac MD Primary Care Provide r Angella Mendieta MD Primary Care Provider Julito Banuelos MD Primary Care Provider [phone] Julito Banuelos MD Unavailable Julito Banuelos MD Unavailable Aleshia Henriquez RD Unavailable Unavailable Mary Kay Jones [facility] Unavailable Unavailable Susannah Blankenship [facility] Unavailable [phone] Carolyn Huynh [facility] Unavailable [phone] Vika Kevin APRN AIR LIFT OPERATOR Unavailable + Marilyn Willard MD Unavailable [phone] Carie Varela DO Unavailable +[phone] Maylin May NP Unavailable [phone] Marisa Rodrigues RN Unavailable Unavailable Vilma Long MD Unavailable + [phone] Yasmeen Pendleton [facility] Unavailable + [phone] Cole George Unavailable Fletcher Russell Unavailable Unavailable Bautista Casey MD Unavailable AnnyJasmyn tarcey [facility] Unavailable [phone] Vika Kevin APRN [facility] Primary Care Prov ider Vika Kevin APRN [facility] Primary Care Prov ider Yasmeen Pendleton [facility] Unavailable + [phone] Vkia [facility] Primary Care Prov ider Encounter Details Date Type Department Care Team (Late st Contact Info) Description 01/10/2014 MyC Medical Advice [facility] - Primary Care [address] [place] [phone] Emilie Dolan MD Social History Tobacco Use [...] on file Legal Sex Female 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 Gender Identity Not on file Sexual [...] Out COVID-19 12/04/2020 12/04/2020 12/05/2020 6:04 PM SHRINK 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 documented as of this encounter Care Teams Motorboat Mechanic Inboard Relationship Specialty Start Date End Date Andrew Lu MD XXX RETIRED XXX [address] [place] [address] PCP - General 12/10/01 01/10/14 Niko Resendiz MD [address] [place] [address] PCP - General Internal Medicine 01/11/14 01/29/14 Carlie Mac MD [address] [place] [address] PCP - General Pediatrics 01/30/14 07/17/15 Angella Mendieta MD [address] [place] [address] PCP - General Family Practice 07/18/15 09/11/15 Julito Banuelos MD [address] [place] [address]74 PCP - General Family Practice 09/12/15 09/23/21 Julito Banuelos MD [address] [place] [address] 89057 PCP - Assigned PCP 02/17/16 12/28/18 Vika Kevin APRN AIR LIFT OPERATOR [address] [place] [address] 6[address]17 PCP - General Nurse Practitioner - Family 09/24/21 03/05/22 Vika Kevin APRN AIR LIFT OPERATOR [address] [place] [address] 23535 PCP - General Nurse Practitioner - Family 03/18/22 06/18/22 Vika Kevin APRN AIR LIFT OPERATOR [address] [place] [address] 709722 PCP - General Nurse Practitioner - Family 07/24/22 Julito Banuelos MD [address] [place] [address] 135552 Assigned PCP 02/17/16 07/21/[address] [place] [address] Manager Land Dietitian, Registered 04/14/19 Mary Kay Jones, [facility] Pharmacist 08/01/19 04/20/20 [facility] [address] [place] [address] [address] [place], [place] [address] Pharmacist Pharmacist 08/08/19 04/15/21 [facility] [address] [place], [place] [id number] Pharmacist Pharmacist 06/25/20 04/15/21 Vika Kevin APRN AIR LIFT OPERATOR [address] [place] [address] 049462 Assigned PCP 07/22/20 11/16/24 Marilyn Willard MD [address] [place] [address] [address] [place] [address] Assigned Surgical Provider 08/17/20 08/16/24 Carie Varela DO [address] [place], [place] 80[address] Assigned Heart and Vascular Provider 08/17/20 01/19/21 Maylin May NP [address] [place] [address] Assigned Pediatric Specialist Provider 12/16/20 06/13/22 Marisa Rodrigues, RN Clinic Application Architect Manager 01/15/21 02/26/21 Vilma Long MD [address] [place] [address] Assigned Heart and Vascular Provider 01/20/21 07/20/21 Yasmeen Pendleton [facility] [address] [place] [address] Pharmacist Pharmacist 06/04/21 01/15/22 Cole George LISW Lead Application Architect Manager 06/13/21 10/07/21 Fletcher Up Community Health Worker 06/13/21 09/12/21 Bautista Casey MD [address] [place] [address] Assigned Heart and Vascular Provider 07/21/21 01/16/23 Jasmyn Oliver CHW Community Health Worker 09/13/21 10/07/21 Yasmeen Pendleton [facility] [address] [place] [address] [id number] Assigned MTM Pharmacist 03/22/22 01/02/23 documented as of this encounter
--- OUTSIDE RECORDS SUMMARY | 2025-10-01 18:37 | XMS_ITS | Encounter Summary ---
Author Organization [place] Address [address] [place] [address] Care Team Providers Care Patient Financial Advocate Name Role Phone Cortez Lu MD Primary Care Provider [phone] Niko Resendiz MD Primary Care Provider Carlie Mac MD Primary Care Provide r Angella Mendieta MD Primary Care Provider Julito Banuelos MD Primary Care Provider [phone] Julito Banuelos MD Unavailable Julito Banuelos MD Unavailable Aleshia Henriquez RD Unavailable Unavailable Mary Kay Jones [facility] Unavailable Unavailable Susannah Blankenship [facility] Unavailable [phone] Carolyn Huynh [facility] Unavailable [phone] Vika Kevin APRN MECHANICAL PENCILS ASSEMBLER Unavailable + Marilyn Willard MD Unavailable [phone] Carie Varela DO Unavailable [phone] Maylin May NP Unavailable [phone] Marisa Rodrigues RN Unavailable Unavailable Vilma Long MD Unavailable + [phone] Yasmeen Pendleton [facility] Unavailable + [phone] Cole George Unavailable Fletcher Russell Unavailable Unavailable Bautista Casey MD Unavailable [phone] TatyanaJasmyn anand [facility] Unavailable [phone] Vika Kevin APRN [facility] Primary Care Prov ider Vika Kevin APRN [facility] Primary Care Prov ider Yasmeen Pendleton [facility] Unavailable + [phone] Vika [facility] Primary Care Prov ider Encounter Details Date Type Department Care Team (Late st Contact Info) Description 12/23/2013 Office Visit-[facility] Heart [facility] [address] [facility] [address] [place] [phone] Cristy Hanna, JAIME [facility] XXX RESIGNED XXX [address] [facility] [address] [place] [id number] Social History Tobacco Use Types Packs/Day Years [...] file Legal Sex Female 3:22 AM GAS PRODUCER Gender Identity Not on file Sexual [...] old Referring Physician: CORTEZ LU Referring Clinic: [facility] CURRENT DIAGNOSES 1. Diabetes Soqiqhii-Qlk-Gdrxssq Dependent, 250.00 2. - Hyperlipidemia mixed, 272.2 [...] daily 10. Nasacort AQ 55 mcg Aerosol, [place], Take as Directed 11. Plavix 75 mg [...] pleasure of seeing Marialuisa Cosby at the [facility].She is a 73-year-old white female with a history of coronary artery disease, hypertension, diabetes, dyslipidemia, and asthma. She is here today to review her recent event monitor. Her cardiovascular history includes hypertension, diabetes, and dyslipidemia. In December 2012 while visiting in [place], she had a non-ST elevation myocardial infarction and underwent an angiogram withPCI to the proximal and mid circumflex. LV function has been normal by echocardiogram. Apparently, that customer relations assistant recommended lifelong Plavix. She established care here [...] and two episodes of tachycardia in the court registry officer hours of December 09, 2013. Maximum heart [...] tonsillectomy Cardiac/Vasc Procedures-Invasive: left heart cath 12/2012 ([place]) Cardiology Procedures-NonInvasive: echocardiogram Jun 2007, myocardial perfusion (Nuc) Jun 2007, echo 12/2012 ([place]), stress echo February 2013 Cardiac Cath Results: 12/2012 [place] Resolute NELIA to the mid and prox [...] - lives with ; Place of - [facility]; REVIEW OF SYSTEMS GENERAL feeling much better [...] COVID-19 12/04/2020 12/04/2020 12/05/2020 6:04 PM GAS PRODUCER documented as of this encounter Care Teams Patient Financial Advocate Relationship Specialty Start Date End Date Cortez Lu MD XXX RETIRED XXX [address] [place] [phone] PCP - General 12/10/01 01/10/14 Niko Resendiz MD [address] [place] [address] PCP - General Internal Medicine 01/11/14 01/29/14 Carlie Mac MD [address] [place] [address] PCP - General Pediatrics 01/30/14 07/17/15 Angella Mendieta MD [address] [place] [address] PCP - General Family Practice 07/18/15 09/11/15 Julito Banuelos MD [address] [place] [address] 308382 PCP - General Family Practice 09/12/15 09/23/21 Julito Banuelos MD [address] [place] [address]8557 PCP - Assigned PCP 02/17/16 12/28/18 Vika Kevin APRN MECHANICAL PENCILS ASSEMBLER [address] [place] [address]20 PCP - General Nurse Practitioner - Family 09/24/21 03/05/22 Vika Kevin APRN MECHANICAL PENCILS ASSEMBLER [address] [place] [address]002 PCP - General Nurse Practitioner - Family 03/18/22 06/18/22 Vika Kevin APRN MECHANICAL PENCILS ASSEMBLER [address] [place] [address] 795832 PCP - General Nurse Practitioner - Family 07/24/22 Julito Banuelos MD [address] [place] [address] 959152 Assigned PCP 02/17/16 07/21/[address] [place] [address] Loom Blower Dietitian, Registered 04/14/19 Mary Kay Jones, [facility] Pharmacist 08/01/19 04/20/20 [facility] [address] [place] [address] 8[address] [place], [place] 7946[address] Pharmacist Pharmacist 08/08/19 04/15/21 Carolyn Huynh [facility] [address] [place] [address] Pharmacist Pharmacist 06/25/20 04/15/21 Vika Kevin APRN MECHANICAL PENCILS ASSEMBLER [address] [place] [address] 458012 Assigned PCP 07/22/20 11/16/24 Marilyn Willard MD [address] [place] [address] [address] [place], [place] [address] Assigned Surgical Provider 08/17/20 08/16/24 Carie Varela DO [address] [place] [address] Assigned Heart and Vascular Provider 08/17/20 01/19/21 Maylin May NP [address] [place] [address] Assigned Pediatric Specialist Provider 12/16/20 06/13/22 Marisa Rodrigues, RN Clinic Children'S Minister 01/15/21 02/26/21 Vilma Long MD [address] [place] [address] Assigned Heart and Vascular Provider 01/20/21 07/20/21 [facility] [address] [place] [address] 228135 Pharmacist Pharmacist 06/04/21 01/15/22 Cole George LISW Lead Children'S Minister 06/13/21 10/07/21 Fletcher Up Community Health Worker 06/13/21 09/12/21 Bautista Casey MD [address] [place] [address] Assigned Heart and Vascular Provider 07/21/21 01/16/23 Jasmyn Oliver CHW Community Health Worker 09/13/21 10/07/21 Yasmeen Pendleton [facility] [address] [place] [address] Assigned MTM Pharmacist 03/22/22 01/02/23 documented as of this encounter
--- OUTSIDE RECORDS SUMMARY | 2025-10-01 18:37 | XMS_ITS | Encounter Summary ---
Author Organization [place] Address [address] [facility] [place] [address] Care Team Providers Care Aoc Airspace Control Officer Name Role Phone Andrew Lu MD Primary Care Provider [phone] Niko Resendiz MD Primary Care Provider Carlie Mac MD Primary Care Provide r Angella Mendieta MD Primary Care Provider Julito Banuelos MD Primary Care Provider [phone] Julito Banuelos MD Unavailable Julito Banuelos MD Unavailable Aleshia Henriquez RD Unavailable Unavailable Mary Kay Jones [facility] Unavailable Unavailable Susannah Blankenship [facility] Unavailable [phone] Carolyn Huynh [facility] Unavailable [phone] Vika Kevin APRN ACT TUTOR Unavailable + Marilyn Willard MD Unavailable [phone] Carie Varela DO Unavailable [phone] Maylin May NP Unavailable [phone] Marisa Rodrigues RN Unavailable Unavailable Vilma Long MD Unavailable + [phone] Yasmeen Pendleton [facility] Unavailable [phone] Cole George Unavailable Fletcher Russell Unavailable Unavailable Bautista Casey MD Unavailable AnnyJasmyn tracey [facility] Unavailable [phone] Vika Kevin APRN [facility] Primary Care Prov ider Vika Kevin APRN [facility] Primary Care Prov ider Yasmeen Pendleton [facility] Unavailable [phone] Vika [facility] Primary Care Prov ider Encounter Details Date Type Department Care Team (Late st Contact Info) Description 06/08/2007 MyC Medical Advice [address] [phone] Andrew Lu MD XXX RETIRED XXX [address] [place] [phone] Social History Tobacco Use Types Packs/Day Years Used Date Smoking Tobacco: Former Cigarettes 0.3 15 0 10/26/1961 - 10/26/1976 Alcohol Use Standard Drinks/Week Comments Yes 0 (1 standard drink = 0.6 oz pur e alcohol) 1 wine 2x qweek Comments No Sex and Gender Information Value Date Recorded Sex Assigned at Not on file Legal Sex Female 3:22 AM DISABILITY COUNSELOR Gender Identity Not on file Sexual Orientation Not on file documented as of this encounter Plan of Treatment Not on file documented as of this encounter Visit Diagnoses Not on filedocumented in this encounter Additional Health Concerns Infection Onset Date Last Indicated Resolved Time Rule Out COVID-19 07/25/2020 07/25/2020 07/26/2020 3:02 PM CDT Rule Out COVID-19 12/04/2020 12/04/2020 12/05/2020 6:04 PM DISABILITY COUNSELOR documented as of this encounter Care Teams Aoc Airspace Control Officer Relationship Specialty Start Date End Date Andrew Lu MD XXX RETIRED XXX [address] [place] [phone] PCP - General 12/10/01 01/10/14 Niko Resendiz MD [address] [place] [address] PCP - General Internal Medicine 01/11/14 01/29/14 Carlie Mac MD [address] [place], [place] 55[address] PCP - General Pediatrics 01/30/14 07/17/15 Angella Mendieta MD [address] [place] [address] [phone] PCP - General Family Practice 07/18/15 09/11/15 Julito Banuelos MD [address] [place] [address] [phone] PCP - General Family Practice 09/12/15 09/23/21 Julito Banuelos MD [address] [place] [address] 82088 PCP - Assigned PCP 02/17/16 12/28/18 Vika Kevin APRN ACT TUTOR [address] [place] [address] 857552 PCP - General Nurse Practitioner - Family 09/24/21 03/05/22 Vika Kevin APRN ACT TUTOR [address] [place] [address] 324872 PCP - General Nurse Practitioner - Family 03/18/22 06/18/22 Vika Kevin APRN ACT TUTOR [address] [place] [address] 568262 PCP - General Nurse Practitioner - Family 07/24/22 Julito Banuelos MD [address] [place] [address] [phone] Assigned PCP 02/17/16 07/21/[address] [place] [address] Hotel Desk Clerk Dietitian, Registered 04/14/19 Mary Kay Jones, [facility] Pharmacist 08/01/19 04/20/20 [facility] [address] [place] [address] 812 [place], [place] [address] Pharmacist Pharmacist 08/08/19 04/15/21 [facility] [address] [place] [address] Pharmacist Pharmacist 06/25/20 04/15/21 Vika Kevin APRN ACT TUTOR [address] [place] [address] 738322 Assigned PCP 07/22/20 11/16/24 Marilyn Willard MD [address] [place] [address] 394 [place], [place] 634[address] Assigned Surgical Provider 08/17/20 08/16/24 Carie Varela DO [address] [place] [address] Assigned Heart and Vascular Provider 08/17/20 01/19/21 Maylin May NP [address] [place] [address] Assigned Pediatric Specialist Provider 12/16/20 06/13/22 Marisa Rodrigues, RN Clinic Farmworker Diversified Crops 01/15/21 02/26/21 Vilma Long MD [address] [place] [address] Assigned Heart and Vascular Provider 01/20/21 07/20/21 Yasmeen Pendleton [facility] [address] [place] [address] Pharmacist Pharmacist 06/04/21 01/15/22 Cole George LISW Lead Farmworker Diversified Crops 06/13/21 10/07/21 Fletcher Up Community Health Worker 06/13/21 09/12/21 Bautista Casey MD [address] [place] [address] Assigned Heart and Vascular Provider 07/21/21 01/16/23 Jasmyn Oliver CHW Community Health Worker 09/13/21 10/07/21 Yasmeen Pendleton [facility] [address] [place] [address] Assigned MTM Pharmacist 03/22/22 01/02/23 documented as of this encounter
--- OUTSIDE RECORDS SUMMARY | 2025-10-01 18:38 | XMS_ITS | Encounter Summary ---
Author Organization [place] Address [address] [place] [address] Care Team Providers Care Boarder Hand Name Role Phone Julito Banuelos MD Primary Care Provider [phone] Unavailable Unavailable Susannah Blankenship [facility] Unavailable [phone] Carolyn Huynh [facility] Unavailable [phone] Vika Kevin APRN [facility] Unavailable + Marilyn Willard MD Unavailable [phone] Carie Varela DO Unavailable [phone] Maylin May NP Unavailable [phone] Marisa Hernandez RN Unavailable Unavailable Vilma Long MD Unavailable + [phone] Yasmeen Pendleton [facility] Unavailable Cole George Unavailable Fletcher Russell Unavailable Unavailable Bautista Casey MD Unavailable [phone] Jasmyn Oliver Unavailable [phone] Vika Kevin APRN [facility] Primary Care Prov ider Vika Kevin APRN [facility] Primary Care Prov ider FrantzYasmeen barreto [facility] Unavailable [phone] Vika Kevin STORE STOCK ASSOCIATE [facility] Primary Care Prov ider Encounter Details Date Type Department Care Team (Late st Contact Info) Description 08/14/2020 MyC Medical Advice [address] [place] [address] Susannah Blankenship, [facility] [address] [facility] [address] [place] [address] Social History Tobacco Use Types [...] on file Legal Sex Female 3:22 AM TRADITIONAL MAORI HEALTH PRACTITIONER Gender Identity Not on file Sexual Orientation [...] Out COVID-19 12/04/2020 12/04/2020 12/05/2020 6:04 PM TRADITIONAL MAORI HEALTH PRACTITIONER Assessment Noted Time PHQ-9 Depression Total Score: 020 1:07 PM CDT documented as of this encounter Care Teams Boarder Hand Relationship Specialty Start Date End Date Julito Banuelos MD [address] [place], [place] 1838[address] PCP - General Family Practice 09/12/15 09/23/21 Vika Kevin, JAIME OVERHEAD CLEANER [address] [place] [address] PCP - General Nurse Practitioner - Family 09/24/21 03/05/22 Vika Kevin APRN OVERHEAD CLEANER [address] [place] [address] PCP - General Nurse Practitioner - Family 03/18/22 06/18/22 Vika Kevin APRN OVERHEAD CLEANER [address] [place] [address]34 PCP - General Nurse Practitioner - Family 07/24/[address] [place] [address] General Freight Agent Dietitian, Registered 04/14/19 Susannah Blankenship, [facility] [address] [facility] [address] [place] [address] Pharmacist Pharmacist 08/08/19 04/15/21 Carolyn Huynh [facility] [address] [place] [address] Pharmacist Pharmacist 06/25/20 04/15/21 Vika Kevin, JAIME OVERHEAD CLEANER [address] [place] [address] [phone] Assigned PCP 07/22/20 11/16/24 Marilyn Willard MD [address] [facility] [address] [place] [address] Assigned Surgical Provider 08/17/20 08/16/24 Carie Varela DO [address] [place] [address] Assigned Heart and Vascular Provider 08/17/20 01/19/21 Maylin May NP [address] [facility] [place] [place] [address] Assigned Pediatric Specialist Provider 12/16/20 06/13/22 Marisa Rodrigues, RN Clinic Skating Rink Ice Maker 01/15/21 02/26/21 Vilma Long MD [address] [place] [address] Assigned Heart and Vascular Provider 01/20/21 07/20/21 [facility] [address] [place] [address] Pharmacist Pharmacist 06/04/21 01/15/22 Cole George LISW Lead Skating Rink Ice Maker 06/13/21 10/07/21 Feltcher Up Community Health Worker 06/13/21 09/12/21 Bautista Casey MD [address] [place] [address] Assigned Heart and Vascular Provider 07/21/21 01/16/23 Jasmyn Oliver CHW Community Health Worker 09/13/21 10/07/21 [facility] [address] [place] [address] Assigned MTM Pharmacist 03/22/22 01/02/23 documented as of this encounter
--- OUTSIDE RECORDS SUMMARY | 2025-10-01 18:38 | XMS_ITS | Clinical Summary ---
Author Organization [place] Address [address] [facility] 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,Type 2 diabetes mellitus [...] 24 hr tabletIndication s: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 Take 1 tablet [...] 20 MG tabletIndication s: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 Take 1 tablet (20 mg) by mouth daily 90 tablet 3 2 Active estradiol (ESTRACE) 0.1 MG/GM vaginal creamIndications :Frequent UTI large blueberry size amount in the vagina nightly three times a week at night 42.5 g 3 2 Active fluticasone (FLONASE) 50 MCG/ACT nasal sprayIndications :Environmental allergies Beverly 2 sprays into both nostrils daily as needed for rhinitis or allergies 48 g 3 2 Active saline 0.65 % SOLN Beverly 1 spray in nostril 3 times daily [...] clinic. 03/31/2012 Coronary artery disease invo lving yavapai-apache coronary artery without angina pectoris 08/24/2015 Multiple [...] found in bladder incidentally 05/2013 Atherosclerosis of [place]ap[place]-apache co ronary artery of [place]ap[place]-apache heart with angina pectoris 12/27/2012 Overview (07/30/2019): [...] in adult, unspecified obesity type 01/14/2019 06/19/20 DC (myocardial infarction) 0 06/19/2021 DM (diabetes mellitus) [...] and Family Not on file 06/14/2021 Attends Synagogue Services Not on file 06/14 Active Member [...] place to sleep or slept in a usp (including now)? 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 Not on file Not on file Last Filed Vital Signs Vital Sign Reading Time Taken Comments Blood Pressure 126/62 09/25/2021 12:08 PM ASSISTANT MECHANIC Pulse 102 09/25/2021 12:08 PM ASSISTANT MECHANIC Temperature 36.8 C (98.2 F) 09/25/2021 12:08 PM ASSISTANT MECHANIC Respiratory Rate 16 06/19/2021 3:30 PM CDT Oxygen Saturation 94% 09/25/2021 12:08 PM ASSISTANT MECHANIC Inhaled Oxygen Concentration - - Weight 81.6 [...] (Cologuard) Discontinued Medical Devices Implanted Type Area Hairspring Fabrication Supervisor Device Identifier Shelf Expiration Date Model / Serial / Lot Imp Plate Syn 1/3 Tubular 85mm 07h Ss 241.37 Implanted:Qty : 1 on 01/12/2021 by Rom Martell MD at [facility] Metallic Hardware/Anc hor Right: Ankle SYNTHES-STRATEC 241.37 / / [id number] Imp Scr Syn Cortex 3.5x16mm Self Tap Ss 204.816 Implanted:Qty : 3 on 01/12/2021 by Rom Martell MD at [facility] Metallic Hardware/Anc hor Right: Ankle SYNTHES-STRATEC 204.816 / / [id number] Imp Scr Syn Can 4.0x14mm Ft Ss 206.014 Implanted:Qty : 1 on 01/12/2021 by Rom Martell MD at [facility] Metallic Hardware/Anc hor Right: Ankle SYNTHES-STRATEC 206.014 / / [id number] Imp Scr Syn Can 4.0x16mm Ft Ss 206.016 Implanted:Qty : 2 on 01/12/2021 by Rom Martell MD at [facility] Metallic Hardware/Anc hor Right: Ankle SYNTHES-STRATEC 206.016 / / [id number] Imp Scr Syn Can 4.0x50mm Ft Ss 206.050 Implanted:Qty : 1 on 01/12/2021 by Rom Martell MD at [facility] Metallic Hardware/Anc hor Right: Ankle SYNTHES-STRATEC 206.050 / / [id number] Procedures Procedure Name Priority Date/Time Associated Diagnosis Comments UA MACROSCOPIC WITH REFLEX TO MICRO AND CULTURE Routine 09/23/2021 3:09 PM ASSISTANT MECHANIC Urinary tract infection Corona catheter in place [...] RANDOM URINE QUANTITATIVE Routine 08/28/2020 3:27 PM ASSISTANT MECHANIC Hypertension goal BP (blood pressure) < 140/90 [...] DEXA - HIM SCAN 11/02/2015 12:00 AM ASSISTANT MECHANIC EYE EXAM - HIM SCAN Routine 09/25/2014 HC SPIROMETRY, BREATH CAPACITY Routine 03/13/2011 ASTHMA - MODERATE PERSISTENT from Last 3 Months or Most Recently Relevant to Health Maintenance Results * (ABNORMAL) UA reflex to Microscopic and Culture (09/23/2021 3:09 PM ASSISTANT MECHANIC) Color Urine Yellow Colorless, Straw, Light Yellow, Yellow 09/23/2021 3:13 PM ASSISTANT MECHANIC [facility] Appearance Urine Clear Clear 09/23/20 3:13 PM ASSISTANT MECHANIC [facility] Glucose Urine Negative Negative mg/dL 09/23/2021 3:13 PM ASSISTANT MECHANIC [facility] Bilirubin Urine Negative Negative 3:13 PM ASSISTANT MECHANIC [facility] Ketones Urine Negative Negative mg/dL 09/23/2021 3:13 PM ASSISTANT MECHANIC [facility] Specific [place] Urine 1.020 1.003 - 1.035 09/23/2021 3:13 PM ASSISTANT MECHANIC [facility] Blood Urine Trace(A) Negative 09/23/2021 3:13 PM ASSISTANT MECHANIC [facility] pH Urine 6.0 5.0 - 7.0 09/23/2021 3:13 PM ASSISTANT MECHANIC [facility] Protein Albumin Urine 30(A) Negative mg/dL 09/23/2021 3:13 PM ASSISTANT MECHANIC [facility] Urobilinogen Urine 0.2 0.2, 1.0 E.U./dL 09/23/2021 3:13 PM ASSISTANT MECHANIC [facility] Nitrite Urine Positive(A) Negative 09/23/2021 3:13 PM ASSISTANT MECHANIC [facility] Leukocyte Esterase Urine Moderate(A) Negative 09/23/2021 3:13 PM ASSISTANT MECHANIC [facility] Urine URINE SPECIMEN OBTAINED VIA [facility]WE[facility]ING URINARY CATHETER / Unknown Non-blood Collection / Unknown 09/23/2021 3:09 PM ASSISTANT MECHANIC 09/23/2021 3:09 PM ASSISTANT MECHANIC us Julito Banuelos MD LAB - URINE ORDERABLES Final Res ult [facility] [address] [place] [address] Lab (no room number, 1st floor of clinic) [place] [id number], [facility] [phone] * (ABNORMAL) Comprehensive metabolic panel (BMP + [...] 07/12/2021 9:45 AM CDT Vika Kevin APRN WASH BOX OPERATOR LAB - BLOOD ORDERA BLES Final Result LABORATORY [facility] [address] Lab (no room number, 1st floor of clinic) [place] [address], [facility] [phone] * TSH with free T4 reflex (04/26/2021 12:18 PM CDT) TSH 1.56 0.40 - 4.00 mU/L 04/28/2021 10:28 AM CDT [facility] Blood 04/26/2021 12:1 8 PM CDT 04/26/2021 12:19 PM CDT us Vika Kevin APRN, CNP LAB - BLOOD ORDERA BLES Final Result Performing Organization Address [facility]/ZIP Co de Phone Number [facility] [address] [place] [address] * Hemoglobin A1c (04/26/2021 12:18 PM CDT) Hemoglobin A1C 5.5 0 - 5.6 % 04/26/2021 12:54 PM CDT [facility] Comment: Normal <5.7% Prediabetes 5.7-6.4% Diabetes 6.5% or higher - adopted from ADA consensus guidelines. Blood 04/26/2021 12:1 8 PM CDT 04/26/2021 12:19 PM CDT Vika Kevin APRN, CNP LAB - BLOOD ORDERA BLES Final Result Performing Organization Address [facility] Co de Phone Number [address] [address] * (ABNORMAL) Albumin Random Urine Quantitative with Creat Ratio (08/28/2020 3:27 PM ASSISTANT MECHANIC) Creatinine Urine 121 mg/dL 08/29/2020 5:22 PM ASSISTANT MECHANIC [facility] Albumin Urine mg/L 121 mg/L 08/29/2020 6:46 PM ASSISTANT MECHANIC [facility] Albumin Urine mg/g Cr 100.00(H) 0 - 25 mg/g Cr 08/29/2020 6:46 PM ASSISTANT MECHANIC [facility] Urine specimen (specimen) 08/28/2020 3:27 PM ASSISTANT MECHANIC 08/28/2020 3:28 PM ASSISTANT MECHANIC us Vika Kevin APRN, CNP LAB - URINE ORDERA BLES Final Result [facility] [address], [place] [address] * (ABNORMAL) Lipid panel reflex to direct LDL Fasting (07/20/2020 11:48 AM CDT) Cholesterol 103 <200 mg/dL 07/20/2020 6:34 PM CDT [facility] Triglycerides 118 <150 mg/dL 07/20/2020 6:33 PM CDT [facility] HDL Cholesterol 41(L) >49 mg/dL 0 6:39 PM CDT [facility] LDL Cholesterol Calculated 38 <100 mg/dL 07/20/2020 6:39 PM CDT [facility] Comment:Desirable: <100 mg/d l Non HDL Cholesterol 62 <130 mg/dL 07/20/2020 6:39 PM CDT [facility] Blood specimen (specimen) 07/20/2020 11:48 AM CDT 07/20/2020 11:50 AM CDT us Braeden Sow MD LAB - BLOOD ORDERABLES Final Result [facility] [address] [place] [address] * MA Diagnostic Right w/Jefry (04/15/2018 9:55 [...] * COLONOSCOPY (05/02/2016 7:39 AM CDT) Pathologist [facility] Patient Name: Marialuisa Cosby Procedure Date: [...] and oxygen saturations were monitored continuously. The [id number] was introduced through the anus and advanced [...] pathology results. Procedure Code(s): --- Professional --- 28779, Colonoscopy, flexible, proximal to splenic flexure; with removal of tumor(s), polyp(s), or other lesion(s) by snare technique 24907, Colonoscopy, flexible, proximal to splenic flexure; with directed submucosal injection(s), any substance CPT copyright 2013 [employer]. All rights reserved. The codes documented in this report are preliminary and upon extension work director review may be revised to meet current [...] Final Re sult [facility] [address] [place] [address] * DEXA - HIM SCAN (11/02/2015 12:00 AM ASSISTANT MECHANIC) Anatomical Region Laterality Modality Other 11/02/2015 Provider Outside IMG DEXA ORDERABLES Final Resul t * Eye Exam - HIM Scan (09/25/2014) Narrative Dora De León - 09/25/2014 for eye exam, had it done 09/2014 at [facility]. [place] us Patient Reported OTHER Final Result * Spirometry, Breath Capacity (03/13/2011) Andrew Lu MD PROCEDURES Final Result from Last 3 Months or Most Recently Relevant to Health Maintenance Insurance [facility] MEDICARE ADVANTAGE [facility] MEDICARE ADVANTAGE * Guarantor: Marialuisa Cosby Account Type Relation to Patient Date of Phone Billing Address Medication Therapy Self [address] [place] [address] [facility] MEDICARE ADVANTAGE [facility] MEDICARE ADVANTAGE Advance Directives For more information, please contact: [phone] * Full Code (Latest Code Status on [...] 4:58 AM 07/03/2014 1:24 PM Care Teams Mud Tank Operator Relationship Specialty Start Date End Date Vika Kevin APRN CNP [address] [place] [address] PCP - General Nurse Practitioner - Family 07/24/[address] Deckhand Crab Boat Dietitian, Registered 04/14/19
--- OUTSIDE RECORDS SUMMARY | 2025-10-01 18:38 | XMS_ITS | Encounter Summary ---
Author Organization [place] Address [address] [facility] [place] [address] Care Team Providers Care Certified Court/Medical Interpreter Name Role Phone Andrew Lu MD Primary Care Provider [phone] Niko Resendiz MD Primary Care Provider Carlie Mac MD Primary Care Provide r Angella Mendieta MD Primary Care Provider Julito Banuelos MD Primary Care Provider [phone] Julito Banuelos MD Unavailable Julito Banuelos MD Unavailable Aleshia Henriquez RD Unavailable Unavailable Mary Kay Jones [facility] Unavailable Unavailable Susannah Blankenship [facility] Unavailable [phone] Carolyn Huynh [facility] Unavailable [phone] Vika Kevin APRN SANITARY LANDFILL OPERATOR Unavailable + Marilyn Willard MD Unavailable [phone] Carie Varela DO Unavailable [phone] Maylin Mya NP Unavailable [phone] Marisa Rodrigues RN Unavailable Unavailable Vilma Long MD Unavailable + [phone] Yasmeen Pendleton [facility] Unavailable [phone] Cole George Unavailable Fletcher Russell Unavailable Unavailable Bautista Casey MD Unavailable DemetriusJasmyn wright [facility] Unavailable [phone] Vika Kevin APRN [facility] Primary Care Prov ider Vika Kevin APRN [facility] Primary Care Prov ider Yasmeen Pendleotn [facility] Unavailable [facility] Primary Care Prov ider Encounter Details Date Type Department Care Team (Latest Contact Info) Description 07/08/2013 Medical Correspondence [address] [phone] Andrew Lu MD XXX RETIRED XXX [address] [phone] [facility] 07/08/13 Social History [...] on file Legal Sex Female 3:22 AM DOUGH MIXER Gender Identity Not on file Sexual [...] Out COVID-19 12/04/2020 12/04/2020 12/05/2020 6:04 PM DOUGH MIXER documented as of this encounter Care Teams Certified Court/Medical Interpreter Relationship Specialty Start Date End Date Andrew Lu MD XXX RETIRED XXX [address] [place] [phone] PCP - General 12/10/01 01/10/14 Niko Resendiz MD [address] [place] [address] PCP - General Internal Medicine 01/11/14 01/29/14 Carlie Mac MD [address] [place] [address] PCP - General Pediatrics 01/30/14 07/17/15 Angella Mendieta MD [address] [place] [address] PCP - General Family Practice 07/18/15 09/11/15 Julito Banuelos MD [address] [place] [address] PCP - General Family Practice 09/12/15 09/23/21 Julito Banuelos MD [address] [place] [address] PCP - Assigned PCP 02/17/16 12/28/18 Vika Kevin APRN CNP [address] [place] [address] PCP - General Nurse Practitioner - Family 09/24/21 03/05/22 Vika Kevin APRN SANITARY LANDFILL OPERATOR [address] [place] [address] PCP - General Nurse Practitioner - Family 03/18/22 06/18/22 Vika Kevin APRN SANITARY LANDFILL OPERATOR [address] [place] [address] PCP - General Nurse Practitioner - Family 07/24/22 Julito Banuelos MD [address] [place] [address] [phone] Assigned PCP 02/17/16 07/21/[address] [place] [address] Support Team Assoc Dietitian, Registered 04/14/19 Mary Kay Jones [facility] Pharmacist 08/01/19 04/20/20 Susannah Blankenship, [facility] [address] [place] [address] [address] [place], [place] [phone] Pharmacist Pharmacist 08/08/19 04/15/21 Carolyn Huynh, [facility] [address] [place] [address] Pharmacist Pharmacist 06/25/20 04/15/21 Vika Kevin, JAIME SANITARY LANDFILL OPERATOR [address] [place] [address] [phone] Assigned PCP 07/22/20 11/16/24 Marilyn Willard MD [address] [facility] [address] [place], [place] [address] Assigned Surgical Provider 08/17/20 08/16/24 Carie Varela DO [address] [place] [address] Assigned Heart and Vascular Provider 08/17/20 01/19/21 Maylin May NP [address] [place] [address] Assigned Pediatric Specialist Provider 12/16/20 06/13/22 Marisa Rodrigues, RN Clinic Sap Basis Administrator 01/15/21 02/26/21 Vilma Long MD [address] [place] [address] Assigned Heart and Vascular Provider 01/20/21 07/20/21 Yasmeen Pendleton [facility] [address] [place] [address] [id number] Pharmacist Pharmacist 06/04/21 01/15/22 Cole George LISW Lead Sap Basis Administrator 06/13/21 10/07/21 Fletcher pU Community Health Worker 06/13/21 09/12/21 Bautista Casey MD [address] [place] [address] Assigned Heart and Vascular Provider 07/21/21 01/16/23 Jasmyn Oliver CHW Community Health Worker 09/13/21 10/07/21 Yasmeen Pendleton [facility] [address] [place] [address] Assigned MTM Pharmacist 03/22/22 01/02/23 documented as of this encounter
--- OUTSIDE RECORDS SUMMARY | 2025-10-01 18:38 | XMS_ITS | Encounter Summary ---
Author Organization [place] Address [address] [facility] [place] [address] Care Team Providers Care Warehouse Order Picker Name Role Phone Andrew Lu MD Primary Care Provider [phone] Niko Resendiz MD Primary Care Provider Carlie Mac MD Primary Care Provide r Angella Mendieta MD Primary Care Provider Julito Banuelos MD Primary Care Provider [phone] Julito Banuelos MD Unavailable Julito Banuelos MD Unavailable Aleshia Henriquez RD Unavailable Unavailable Mary Kay Jones [facility] Unavailable Unavailable Susannah Blankenship [facility] Unavailable [phone] Carolyn Huynh [facility] Unavailable [phone] Vika Kevin APRN VAMP STITCHER Unavailable + Marilyn Willard MD Unavailable [phone] Carie Varela DO Unavailable [phone] Maylin May NP Unavailable [phone] Marisa Rodrigues RN Unavailable Unavailable Vilma Long MD Unavailable + [phone] Yasmeen Pendleton [facility] Unavailable [phone] Cole George Unavailable Fletcher Russell Unavailable Unavailable Bautista Casey MD Unavailable [phone] DemetriusJasmyn wright [facility] Unavailable [facility] Primary Care Prov ider Vika Kevin APRN [facility] Primary Care Prov ider Yasmeen Pendleton [facility] Unavailable [facility]ika [facility] Primary Care Prov ider Encounter Details Date Type Department Care Team (Late st Contact Info) Description 12/28/2013 MyC Medical Advice [facility] - Primary Care Skin [address] [place] [phone] Jenn Yip MD [address] [facility] [place] [address] Social History Tobacco Use Types Packs/Day Years Used Date Smoking Tobacco: Former Cigarettes 0.3 15 0 10/26/1961 - 10/26/1976 Smokeless Tobacco: Never Alcohol Use Standard Drinks/Week Comments Yes 0 (1 standard drink = 0.6 oz pur e alcohol) 1-2 glasses of wine weekly Comments No Sex and Gender Information Value Date Recorded Sex Assigned at Not on file Legal Sex Female 3:22 AM MAIL CLERK BILLS Gender Identity Not on file Sexual Orientation [...] Out COVID-19 12/04/2020 12/04/2020 12/05/2020 6:04 PM MAIL CLERK BILLS documented as of this encounter Care Teams Warehouse Order Picker Relationship Specialty Start Date End Date Andrew Lu MD XXX RETIRED XXX [address] [place] [phone] PCP - General 12/10/01 01/10/14 Niko Resendiz MD [address] [place] [address] PCP - General Internal Medicine 01/11/14 01/29/14 Carlie Mac MD [address] [place] [address] PCP - General Pediatrics 01/30/14 07/17/15 Angella Mendieta MD [address] [place] [address] PCP - General Family Practice 07/18/15 09/11/15 Julito Banuelos MD [address] [place] [address] PCP - General Family Practice 09/12/15 09/23/21 Julito Banuelos MD [address] [place] [address] PCP - Assigned PCP 02/17/16 12/28/18 Vika Kevin APRN VAMP STITCHER [address] [place] [address] PCP - General Nurse Practitioner - Family 09/24/21 03/05/22 Vika Kevin APRN VAMP STITCHER [address] [place] [address] PCP - General Nurse Practitioner - Family 03/18/22 06/18/22 Vika Kevin APRN VAMP STITCHER [address] [place] [address] 325102 PCP - General Nurse Practitioner - Family 07/24/22 Julito Banuelos MD [address] [place] [address] [phone] Assigned PCP 02/17/16 07/21/[address] [place] [address] Hotel Service Manager Dietitian, Registered 04/14/19 Mary Kay Jones, [facility] Pharmacist 08/01/19 04/20/20 Susannah Blankenship, [facility] [address] [facility] [address] [place], [place] [address] Pharmacist Pharmacist 08/08/19 04/15/21 Carolyn Huynh, [facility] [address] [place], [place] [phone] Pharmacist Pharmacist 06/25/20 04/15/21 Vika Kevin, JAIME VAMP STITCHER [address] [place] [address] [phone] Assigned PCP 07/22/20 11/16/24 Marilyn Willard MD [address] [facility] [address] [place], [place] [phone] Assigned Surgical Provider 08/17/20 08/16/24 Carie Varela DO [address] [place] [address] Assigned Heart and Vascular Provider 08/17/20 01/19/21 Maylin May NP [address] [place] [address] Assigned Pediatric Specialist Provider 12/16/20 06/13/22 Marisa Rodrigues, RN Clinic Photographer Model 01/15/21 02/26/21 Vilma Long MD [address] [place] [address] Assigned Heart and Vascular Provider 01/20/21 07/20/21 Yasmeen Pendleton [facility] [address] [place] [address] Pharmacist Pharmacist 06/04/21 01/15/22 Cole George LISW Lead Photographer Model 06/13/21 10/07/21 Fletcher Up Community Health Worker 06/13/21 09/12/21 Bautista Casey MD [address] [place] [address] Assigned Heart and Vascular Provider 07/21/21 01/16/23 Jasmyn Oliver CHW Community Health Worker 09/13/21 10/07/[address] [facility] [place] [address] Assigned MTM Pharmacist 03/22/22 01/02/23 documented as of this encounter
--- OUTSIDE RECORDS SUMMARY | 2025-10-01 18:38 | XMS_ITS | Encounter Summary ---
Author Organization [place] Address [address] [place] [address] Care Team Providers Care Podiatrist Name Role Phone Cortez Lu MD Primary Care Provider [phone] Niko Resendiz MD Primary Care Provider Carlie Mac MD Primary Care Provide r Angella Mendieta MD Primary Care Provider Julito Banuelos MD Primary Care Provider [phone] Julito Banuelos MD Unavailable Julito Banuelos MD Unavailable Aleshia Henriquez RD Unavailable Unavailable Mary Kay Jones [facility] Unavailable Unavailable Susannah Blankenship [facility] Unavailable [phone] Carolyn Huynh [facility] Unavailable [phone] Vika Kevin APRN REHAB DEPARTMENT MANAGER Unavailable + Marilyn Willard MD Unavailable [phone] Carie Varela DO Unavailable +[phone] Maylin May NP Unavailable [phone] Marisa Rodrigues RN Unavailable Unavailable Vilma Long MD Unavailable + [phone] Yasmeen Pendleton [facility] Unavailable + [phone] Cole George Unavailable Fletcher Russell Unavailable Unavailable Bautista MD Unavailable Jasmyn Oliver [facility] Unavailable [phone] Vika Kevin APRN [facility] Primary Care Prov ider Vika Kevin APRN [facility] Primary Care Prov ider Yasmeen Pendleton [facility] Unavailable + [phone] [facility] Primary Care Prov ider Encounter Details Date Type Department Care Team (Late st Contact Info) Description 09/16/2013 Office Visit-[facility] Heart [address] [place] [address] Reji Davis MD [address] [place] [address] Social History Tobacco Use Types [...] on file Legal 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 Diabetes Awdofdvw-Crg-Lcqyczh Dependent, 250.00 2. - Hyperlipidemia mixed, 272.2 [...] daily 12. Nasacort AQ 55 mcg Aerosol, [place], Take as Directed 13. Plavix 75 mg [...] mid circumflex artery in December,, while at [facility] in [place], [place]. This was following a presentation for a aqm-HC-iehzxrl elevation [place]. Since I saw the patient last she was seen in the [facility] ER with overall generalized weakness and [...] to Marialuisa about this previously, that her career coach in [place] had recommended that she remain [...] echo February 2013 Cardiac Cath Results: 12/2012 [place] Resolute NELIA to the mid and prox [...] - lives with and been living in [place] for 3 months; Place of - [place]; REVIEW OF SYSTEMS GENERAL frequent uti's otherwise [...] CT but they can get bad in [place] [...] left circumflex artery following presentation for a mst-EZ-fksmmpa elevation [place]. 3. Recent evaluation for fatigue [...] Out COVID-19 12/04/2020 12/04/2020 12/05/2020 6:04 PM PARTS ROOM ASSOCIATE documented as of this encounter Care Teams Podiatrist Relationship Specialty Start Date End Date Cortez Lu MD XXX RETIRED XXX [address] [place] [phone] PCP - General 12/10/01 01/10/14 Niko Resendiz MD [address] [place] [address] 68646 PCP - General Internal Medicine 01/11/14 01/29/14 Carlie Mac MD [address] [place] [address] PCP - General Pediatrics 01/30/14 07/17/15 Angella Mendieta MD [address] [place] [address] [phone] PCP - General Family Practice 07/18/15 09/11/15 Julito Banuelos MD [address] [place] [address] 946362 PCP - General Family Practice 09/12/15 09/23/21 Julito Banuelos MD [address] [place] [address] 309002 PCP - Assigned PCP 02/17/16 12/28/18 Vika Kevin APRN REHAB DEPARTMENT MANAGER [address] [place] [address] 89639 PCP - General Nurse Practitioner - Family 09/24/21 03/05/22 Vika Kevin APRN REHAB DEPARTMENT MANAGER [address] [place] [address] 06653 PCP - General Nurse Practitioner - Family 03/18/22 06/18/22 Vika Kevin APRN REHAB DEPARTMENT MANAGER [address] [place] [address] 367772 PCP - General Nurse Practitioner - Family 07/24/22 Julito Banuelos MD [address] [place] [address] 126372 Assigned PCP 02/17/16 07/21/[address] [place] [address] Automobile Rental Clerk Dietitian, Registered 04/14/19 Mary Kay Jones, [facility] Pharmacist 08/01/19 04/20/20 [facility] [address] [place] [address] [address] [place], [place] 673615 Pharmacist Pharmacist 08/08/19 04/15/21 Carolyn Huynh [facility] [address] [place] [address] Pharmacist Pharmacist 06/25/20 04/15/21 Vika Kevin APRN CNP [address] [place] [address] 765212 Assigned PCP 07/22/20 11/16/24 Marilyn Willard MD [address] [place] [address] [address] [place], [place] 351305 Assigned Surgical Provider 08/17/20 08/16/24 Carie Varela DO [address] [place] [address] Assigned Heart and Vascular Provider 08/17/20 01/19/21 Maylin May NP [address] [place] [address] Assigned Pediatric Specialist Provider 12/16/20 06/13/22 Marisa Rodrigues, RN Clinic Gas Plumber 01/15/21 02/26/21 Vilma Long MD [address] [place] [address] Assigned Heart and Vascular Provider 01/20/21 07/20/21 [facility] [address] [place], [place] 447175 Pharmacist Pharmacist 06/04/21 01/15/22 Cole George LISW Lead Gas Plumber 06/13/21 10/07/21 Fletcher Up Community Health Worker 06/13/21 09/12/21 Bautista Casey MD [address] [place] [address] Assigned Heart and Vascular Provider 07/21/21 01/16/23 Jasmyn Oliver CHW Community Health Worker 09/13/21 10/07/21 [facility] [address] [place] [address] Assigned MTM Pharmacist 03/22/22 01/02/23 documented as of this encounter
--- OUTSIDE RECORDS SUMMARY | 2025-10-01 18:38 | XMS_ITS | Encounter Summary ---
Author Organization [place] Address [address] [facility] [place] [address] Care Team Providers Care Medical Parasitologist Name Role Phone Niko Resendiz MD Primary Care Provider Carlie Mac MD Primary Care Provide r Angella Mendieta MD Primary Care Provider Julito Banuelos MD Primary Care Provider [phone] Julito Banuelos MD Unavailable Julito Banuelos MD Unavailable Aleshia Henriquez RD Unavailable Unavailable Mary Kay Jones RP Unavailable Unavailable Susannah Blankenship [facility] Unavailable [phone] Carolyn Huynh [facility] Unavailable [phone] Vika Kevin PAY CLERK GENERATION ENGINEERING TECHNOLOGIST Unavailable + Marilyn Willard MD Unavailable Carie Varela DO Unavailable [phone] Maylin May NP Unavailable [phone] Marisa Hernandez RN Unavailable Unavailable Vilma Long MD Unavailable + [phone] Yasmeen Pendleton [facility] Unavailable Cole George Unavailable Unavai jonathan Up Fletcher Unavailable Unavailable Ip, Bautista Bell MD Unavailable TatyanaJasmyn anand W Unavailable [phone] Vika Kevin PAY CLERK [facility] Primary Care Prov ider Vika Kevin [facility] Primary Care Prov ider Yasmeen Pendleton [facility] Unavailable + [phone] Vika Kevin [facility] Primary Care Prov ider Reason for Visit * Reason Onset Date Comments Other 01/28/2014 PCP change Encounter Details Date Type Department Care Team (Late st Contact Info) Description 01/28/2014 [facility] [address] [address] Carlie Mac MD [address] [place] [address] Other (PCP change ) Social [...] on file Legal Sex Female 3:22 AM CARE TRANSITION MANAGER Gender Identity Not on file Sexual [...] Out COVID-19 12/04/2020 12/04/2020 12/05/2020 6:04 PM CARE TRANSITION MANAGER documented as of this encounter Care Teams Medical Parasitologist Relationship Specialty Start Date End Date Niko Resendiz MD [address] [place] [address] PCP - General Internal Medicine 01/11/14 01/29/14 Carlie Mac MD [address] [place] [address] PCP - General Pediatrics 01/30/14 07/17/15 Angella Mendieta MD [address] [place] [address] PCP - General Family Practice 07/18/15 09/11/15 Julito Banuelos MD [address] [place] [address]8944 PCP - General Family Practice 09/12/15 09/23/21 Julito Banuelos MD [address] [place] [address] 6[address] PCP - Assigned PCP 02/17/16 12/28/18 Vika Kevin APRN GENERATION ENGINEERING TECHNOLOGIST [address] [place] [address] 60261 PCP - General Nurse Practitioner - Family 09/24/21 03/05/22 Vika Kevin APRN GENERATION ENGINEERING TECHNOLOGIST [address] [place] [address] 32820 PCP - General Nurse Practitioner - Family 03/18/22 06/18/22 Vika Kevin, JAIME GENERATION ENGINEERING TECHNOLOGIST [address] [place] [address] 028942 PCP - General Nurse Practitioner - Family 07/24/22 Julito Banuelos MD [address] [place] [address] [phone] Assigned PCP 02/17/16 07/21/[address] [place] [address] Cardiology Specialist Dietitian, Registered 04/14/19 Mary Kay Jones, [facility] Pharmacist 08/01/19 04/20/20 Susannah Blankenship, [facility] [address] [facility] [address] [place], [place] 315405 Pharmacist Pharmacist 08/08/19 04/15/21 [facility] [address] [place], [place] [address] Pharmacist Pharmacist 06/25/20 04/15/21 Vika Kevin, JAIME GENERATION ENGINEERING TECHNOLOGIST [address] [place] [address] [phone] Assigned PCP 07/22/20 11/16/24 Marilyn Willard MD [address] [facility] [address] [place], [place] 208575 Assigned Surgical Provider 08/17/20 08/16/24 Carie Varela DO [address] [place] [address] Assigned Heart and Vascular Provider 08/17/20 01/19/21 Maylin May NP [address] [facility] [place] [address] Assigned Pediatric Specialist Provider 12/16/20 06/13/22 Marisa Rodrigues, RN Clinic Basket Bottom Machine Operator 01/15/21 02/26/21 Vilma Long MD [address] [place] [address] Assigned Heart and Vascular Provider 01/20/21 07/20/21 [facility] [address] [place] [address] Pharmacist Pharmacist 06/04/21 01/15/22 Cole George LISW Lead Basket Bottom Machine Operator 06/13/21 10/07/21 Fletcher Up Community Health Worker 06/13/21 09/12/21 Bautista Casey MD [address] [place] [address] Assigned Heart and Vascular Provider 07/21/21 01/16/23 Jasmyn Oliver CHW Community Health Worker 09/13/21 10/07/21 [facility] [address] [place] [address] Assigned MTM Pharmacist 03/22/22 01/02/23 documented as of this encounter
--- OUTSIDE RECORDS SUMMARY | 2025-10-01 18:38 | XMS_ITS | Encounter Summary ---
Author Organization [place] Address [address] [facility] [place] [address] Care Team Providers Care Home Health Clinical Supervisor Name Role Phone Andrew Lu MD Primary Care Provider [phone] Niko Resendiz MD Primary Care Provider Carlie Mac MD Primary Care Provide r Angella Mendieta MD Primary Care Provider Julito Banuelos MD Primary Care Provider [phone] Julito Banuelos MD Unavailable Julito Banuelos MD Unavailable Aleshia Henriquez RD Unavailable Unavailable Mary Kay Jones [facility] Unavailable Unavailable Susannah Blankenship [facility] Unavailable [phone] Carolyn Huynh [facility] Unavailable [phone] Vika Kevin APRN WEB CONTENT SPECIALIST Unavailable + Marilyn Willard MD Unavailable [phone] Carie Varela DO Unavailable [phone] Maylin May NP Unavailable [phone] Marisa Rodrigues RN Unavailable Unavailable Vilma Long MD Unavailable + [phone] Yasmeen Pendleton [facility] Unavailable + [phone] Cole George Unavailable Fletcher Russell Unavailable Unavailable Bautista Casey MD Unavailable DemetriusJasmyn wright [facility] Unavailable [phone] 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 Gender Identity Not on file Sexual [...] Out COVID-19 12/04/2020 12/04/2020 12/05/2020 6:04 PM VACUUM METALIZER OPERATOR documented as of this encounter Care Teams Home Health Clinical Supervisor Relationship Specialty Start Date End Date Andrew Lu MD XXX RETIRED XXX [address] [place] [phone] PCP - General 12/10/01 01/10/14 Niko Resendiz MD [address] [place] [address] PCP - General Internal Medicine 01/11/14 01/29/14 Carlie Mac MD [address] [place] [address] PCP - General Pediatrics 01/30/14 07/17/15 Angella Mendieta MD [address] [place] [address] PCP - General Family Practice 07/18/15 09/11/15 Julito Banuelos MD [address] [place] [address] PCP - General Family Practice 09/12/15 09/23/21 Julito Banuelos MD [address] [place] [address]10 PCP - Assigned PCP 02/17/16 12/28/18 Vika Kevin APRN WEB CONTENT SPECIALIST [address] [place] [address] PCP - General Nurse Practitioner - Family 09/24/21 03/05/22 Vika Kevin APRN WEB CONTENT SPECIALIST [address] [place] [address] PCP - General Nurse Practitioner - Family 03/18/22 06/18/22 Vika Kevin APRN WEB CONTENT SPECIALIST [address] [place] [address] 324182 PCP - General Nurse Practitioner - Family 07/24/22 Julito Banuelos MD [address] [place] [address] [phone] Assigned PCP 02/17/16 07/21/[address] [place] [address] Social Services Manager Dietitian, Registered 04/14/19 Mary Kay Joens, [facility] Pharmacist 08/01/19 04/20/20 Susannah Blankenship, [facility] [address] [place] [address] 8[address] [place], [place] 460[address] Pharmacist Pharmacist 08/08/19 04/15/21 Carolyn Huynh, [facility] [address] [place], [place] [address] Pharmacist Pharmacist 06/25/20 04/15/21 Vika Kevin APRN WEB CONTENT SPECIALIST [address] [place] [address] 478392 Assigned PCP 07/22/20 11/16/24 Marilyn Willard MD [address] [place] [address] 394 [place], [place] [phone] Assigned Surgical Provider 08/17/20 08/16/24 Carie Varela DO [address] [place] [address] Assigned Heart and Vascular Provider 08/17/20 01/19/21 Maylin May NP [address] [place] [address] Assigned Pediatric Specialist Provider 12/16/20 06/13/22 Marisa Rodrigues, RN Clinic Premium Service Representative 01/15/21 02/26/21 Vilma Long MD [address] [place] [address] Assigned Heart and Vascular Provider 01/20/21 07/20/21 Yasmeen Pendleton [facility] [address] [place] [address] 818265 Pharmacist Pharmacist 06/04/21 01/15/22 Cole George LISW Lead Premium Service Representative 06/13/21 10/07/21 Fletcher Up Community Health Worker 06/13/21 09/12/21 Bautista Casey MD [address] [place] [address] Assigned Heart and Vascular Provider 07/21/21 01/16/23 Jasmyn Oliver CHW Community Health Worker 09/13/21 10/07/21 Yasmeen Pendleton [facility] [address] [place] [address] 459815 Assigned MTM Pharmacist 03/22/22 01/02/23 documented as of this encounter
--- OUTSIDE RECORDS SUMMARY | 2025-10-01 18:38 | XMS_ITS | Encounter Summary ---
Author Organization [place] Address [address] [facility] [place] [address] Care Team Providers Care Home Energy Consultant Name Role Phone Carlie Wang MD Primary Care Provide r Angella Mendieta MD Primary Care Provider Julito Banuelos MD Primary Care Provider Julito Banuelos MD Unavailable Julito Banuelos MD Unavailable Aleshia Henriquez RD Unavailable Unavailable Mary Kay Jones [facility] Unavailable Unavailable Susannah Blankenship [facility] Unavailable Carolyn Huynh [facility] Unavailable Vika Kevin APRN SEEING EYE DOG TRAINER Unavailable + Marilyn Willard MD Unavailable [phone] Carie Varela DO Unavailable Maylin May NP Unavailable [phone] Marisa Hernandez RN Unavailable Unavailable Vilma Long MD Unavailable Yasmeen Pendleton [facility] Unavailable [phone] Cole George Unavailable Fletcher Russell Unavailable Unavailable Ip, Bautista Bell MD Unavailable +[phone] Jasmyn Oliver [facility] Unavailable [phone] Vika Kevin APRN [facility] Primary Care Prov ider Vika Kevin APRN [facility] Primary Care Prov ider Yasmeen Pendleton [facility] Unavailable + [phone] Vika Kevin APRN [facility] Primary Care Prov ider Encounter Details Date Type Department Care Team (Late st Contact Info) Description 03/10/2014 Office Visit-[facility] Heart [address] [place] [address] Jaimee Donald MD HEART [place] [id number] Social History Tobacco Use Types Packs/Day Years Used Date Smoking Tobacco: Former Cigarettes 0.3 15 0 10/26/1961 - 10/26/1976 Smokeless Tobacco: Never Alcohol Use Standard Drinks/Week Comments Yes 0 (1 standard drink = 0.6 oz pur e alcohol) 1-2 glasses of wine weekly Comments No Sex and Gender Information Value Date Recorded Sex Assigned at Not on file Legal Sex Female 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 [id number] DATE: 03/10/2014 MARIALUISA COSBY DATE OF : 1940 AGE: [age] years old Referring Physician: CARLIE WANG Referring Clinic: [facility] CURRENT DIAGNOSES 1. Diabetes Kjllfokd-Ers-Rkdoqmm Dependent, 250.00 2. - Hyperlipidemia mixed, 272.2 3. - Hypertension, 401.1 4. - CAD, 414.00 5. Palpitations, 785.1 ALLERGIES lisinopril Nitrofurantoin Nitrofurantoin Macrocrystal pramipexole Di-HCl Sulfasalazine tolterodine tartrate zolpidem tartrate MEDICATIONS (prior to changes made today) 1. Asmanex Twisthaler 220 mcg (120 doses) Aerosol Powdr [facility] ActivIn, Take as Directed 2. [...] daily 10. Nasacort AQ 55 mcg Aerosol, [place], Take as Directed 11. Plavix 75 mg [...] artery disease having had a non-ST elevation [place] in [place] in December 2012with PCI to the proximal mid circumflex. Apparently the sider recommended lifelong Plavix. She has hypertension, diabetes [...] Leg syndrome Past Cardiac Illnesses: CAD, s/p SC Surgeries/Procedures - General: hysterectomy, tonsillectomy Cardiac/Vasc Procedures-Invasive: left heart cath 12/2012 ([place]) Cardiology Procedures-NonInvasive: echocardiogram Jun 2007, myocardial perfusion (Nuc) Jun 2007, echo 12/2012 ([place]), stress echo February 2013 Cardiac Cath Results: 12/2012 [place] Resolute NELIA to the mid and prox [...] - lives with ; Place of - [place]; REVIEW OF SYSTEMS GENERAL feeling spacey lately [...] Out COVID-19 12/04/2020 12/04/2020 12/05/2020 6:04 PM ICE RINK ATTENDANT documented as of this encounter Care Teams Home Energy Consultant Relationship Specialty Start Date End Date Carlie Wang MD [address] [place] [address] PCP - General Pediatrics 01/30/14 07/17/15 Angella Mendieta MD [address] [place] [address] 895312 PCP - General Family Practice 07/18/15 09/11/15 Julito Banuelos MD [address] [place] [address] PCP - General Family Practice 09/12/15 09/23/21 Julito Banuelos MD [address] [place] [address]013 PCP - Assigned PCP 02/17/16 12/28/18 Vika Kevin APRN SEEING EYE DOG TRAINER [address] [place] [address] [phone] PCP - General Nurse Practitioner - Family 09/24/21 03/05/22 Vika Kevin APRN SEEING EYE DOG TRAINER [address] [place] [address] 12684 PCP - General Nurse Practitioner - Family 03/18/22 06/18/22 Vika Kevin APRN SEEING EYE DOG TRAINER [address] [place] [address] [phone] PCP - General Nurse Practitioner - Family 07/24/22 Julito Banuelos MD [address] [place] [address] 139332 Assigned PCP 02/17/16 07/21/[address] [place] [address] 26346 Rental Sales Agent Dietitian, Registered 04/14/19 Mary Kay Jones, [facility] Pharmacist 08/01/19 04/20/20 Susannah Blankenship, [facility] [address] [place] [address] 812 [place], [place] [phone] Pharmacist Pharmacist 08/08/19 04/15/21 Carolyn Huynh [facility] [address] [place], [place] 484397 Pharmacist Pharmacist 06/25/20 04/15/21 Vika Kevin APRN SEEING EYE DOG TRAINER [address] [place] [address] [phone] Assigned PCP 07/22/20 11/16/24 Marilyn Willard MD [address] [address] Assigned Surgical Provider 08/17/20 08/16/24 Carie Varela DO [address] [place] [address] Assigned Heart and Vascular Provider 08/17/20 01/19/21 Maylin May, JENNY [address] [place] [address] Assigned Pediatric Specialist Provider 12/16/20 06/13/22 Marisa Rodrigues, RN Clinic Flea Market Seller 01/15/21 02/26/21 Vilma Long MD [address] [place] [address] Assigned Heart and Vascular Provider 01/20/21 07/20/21 Yasmeen Pendleton [facility] [address] [place] [address] [phone] Pharmacist Pharmacist 06/04/21 01/15/22 Cole George LISW Lead Flea Market Seller 06/13/21 10/07/21 Fletcher Up Community Health Worker 06/13/21 09/12/21 Bautista Casey MD [address] [place] [address] Assigned Heart and Vascular Provider 07/21/21 01/16/23 Jasmyn Oliver CHW Community Health Worker 09/13/21 10/07/21 Yasmeen Pendleton [facility] [address] [place] [address] Assigned MTM Pharmacist 03/22/22 01/02/23 documented as of this encounter
--- OUTSIDE RECORDS SUMMARY | 2025-10-01 18:38 | XMS_ITS | Encounter Summary ---
Author Organization [facility] Address [address] [facility] [place] [address] Care Team Providers Care Golf Ball Molder Name Role Phone Niko Resendiz MD Primary Care Provider Carlie Mac MD Primary Care Provide r Angella Mendieta MD Primary Care Provider Julito Banuelos MD Primary Care Provider [phone] Julito Banuelos MD Unavailable Julito Banuelos MD Unavailable Aleshia Henriquez RD Unavailable Unavailable Mary Kay Jones RP Unavailable Unavailable Susannah Blankenship [facility] Unavailable Carolyn Huynh [facility] Unavailable Vika Kevin HOT SEALING 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 FACILITIES MAINTENANCE SUPERVISOR Unavailable + Marilyn Willard MD Unavailable [phone] Carie Varela DO Unavailable [phone] Maylin May NP Unavailable [phone] Marisa Hernandez RN Unavailable Unavailable Vilma Long MD Unavailable + [phone] Yasmeen Pendleton [facility] Unavailable Cole George Unavailable Unavai jonathan Up Fletcher Unavailable Unavailable Ip, Bautista Bell MD Unavailable [phone] TatyanaJasmyn anand W Unavailable [phone] Vika Kevin HOT SEALING 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 [facility] Primary Care Prov ider Vika Kevin [facility] Primary Care Prov ider Yasmeen Pendleton [facility] Unavailable + [phone] Vika Kevin [facility] Primary Care Prov ider Reason for Visit * Reason Onset Date Comments Medication Question 01/28/2014 Update Encounter Details Date Type Department Care Team (Late st Contact Info) Description 01/28/2014 [facility] [place] [address] [address] Carlie Mac MD [address] [place] [address] Medication Question (Update ) Social [...] on file Legal Sex Female 3:22 AM EXPLOSION WELDER Gender Identity Not on file Sexual Orientation [...] Out COVID-19 12/04/2020 12/04/2020 12/05/2020 6:04 PM EXPLOSION WELDER documented as of this encounter Care Teams Golf Ball Molder Relationship Specialty Start Date End Date Niko Resendiz MD [address] [place] [address] PCP - General Internal Medicine 01/11/14 01/29/14 Carlie Mac MD [address] [place] [address] PCP - General Pediatrics 01/30/14 07/17/15 Angella Mendieta MD [address] [place] [address] PCP - General Family Practice 07/18/15 09/11/15 Julito Banuelos MD [address] [place] [address] PCP - General Family Practice 09/12/15 09/23/21 Julito Banuelos MD [address] [place] [address] PCP - Assigned PCP 02/17/16 12/28/18 Vika Kevin APRN FACILITIES MAINTENANCE SUPERVISOR [address] [place] [address] PCP - General Nurse Practitioner - Family 09/24/21 03/05/22 Vika Kevin APRN FACILITIES MAINTENANCE SUPERVISOR [address] [place] [address] PCP - General Nurse Practitioner - Family 03/18/22 06/18/22 Vika Kevin APRN FACILITIES MAINTENANCE SUPERVISOR [address] [place] [address] PCP - General Nurse Practitioner - Family 07/24/22 Julito Banuelos MD [address] [place] [address] [id number] Assigned PCP 02/17/16 07/21/[address] [place] [address] Family Support Specialist Dietitian, Registered 04/14/19 Mary Kay Jones, [facility] Pharmacist 08/01/19 04/20/20 Susannah Blankenship [facility] [address] [facility] [address] [place], [place] [address] Pharmacist Pharmacist 08/08/19 04/15/21 Carolyn Huynh, [facility] [address] [place], [place] [address] Pharmacist Pharmacist 06/25/20 04/15/21 Vika Kevin, JAIME FACILITIES MAINTENANCE SUPERVISOR [address] [place] [address] 506802 Assigned PCP 07/22/20 11/16/24 Marilyn Willard MD [address] [facility] [address] [place], [place] [address] Assigned Surgical Provider 08/17/20 08/16/24 Carie Varela DO [address] [place] [address] Assigned Heart and Vascular Provider 08/17/20 01/19/21 Maylin May NP [address] [place] [address] Assigned Pediatric Specialist Provider 12/16/20 06/13/22 Marisa Rodrigues, RN Clinic Grievance Coordinator 01/15/21 02/26/21 Vilma Long MD [address] [place] [address] Assigned Heart and Vascular Provider 01/20/21 07/20/21 [facility] [address] [place] [address] Pharmacist Pharmacist 06/04/21 01/15/22 Cole George LISW Lead Grievance Coordinator 06/13/21 10/07/21 Fletcher Up Community Health Worker 06/13/21 09/12/21 Bautista Casey MD [address] [place] [address] Assigned Heart and Vascular Provider 07/21/21 01/16/23 Jasmyn Oliver CHW Community Health Worker 09/13/21 10/07/21 [facility] [address] [place] [address] Assigned MTM Pharmacist 03/22/22 01/02/23 documented as of this encounter
--- OUTSIDE RECORDS SUMMARY | 2025-10-01 18:38 | XMS_ITS | Encounter Summary ---
Author Organization [facility] Address [address] [facility] [place] [address] Care Team Providers Care Nurse General Duty Name Role Phone Julito Banuelos MD Primary Care Provider [phone] Unavailable Unavailable Susannah Blankenship [facility] Unavailable [phone] Carolyn Huynh [facility] Unavailable [phone] Vika Kevin APRN [facility] Unavailable + Marilyn Willard MD Unavailable [phone] Carie Varela DO Unavailable [phone] Maylin May NP Unavailable [phone] Marisa Hernandez RN Unavailable Unavailable Vilma Long MD Unavailable + [phone] Yasmeen Pendleton [facility] Unavailable Cole George Unavailable Fletcher Russell Unavailable Unavailable Bautista Casey MD Unavailable [phone] Jasmyn Oliver Unavailable [phone] Vika Kevin APRN [facility] Primary Care Prov ider Vika Kevin APRN [facility] Primary Care Prov ider Yasmeen Pendleton [facility] Unavailable [phone] Vika Kevin APRN [employer] Primary Care Prov ider Encounter Details Date Type Department Care Team (Late st Contact Info) Description 12/10/2020 My[facility] Medical Advice [facility] [address] [facility] [address] [place] [address] [facility] [address] [place] [address] Social History Tobacco Use Types [...] on file Legal Sex Female 3:22 AM PIT BOSS Gender Identity Not on file Sexual Orientation Not on file Occupation Industry Job Start Date Job End Date Not on file Not on file Not on file Not on file COVID-19 Exposure Response Date Recorded In the last month, have you been in contact with someone who was confirmed or suspected to have Coronavirus / COVID-19? No / Unsure 12/11/2020 3:56 PM PIT BOSS documented as of this encounter Plan of Treatment Not on file documented as of this encounter Visit Diagnoses Not on filedocumented in this encounter Additional Health Concerns Assessment Noted Time PHQ-9 Depression Total Score: 10 020 9:30 AM PIT BOSS documented as of this encounter Care Teams Nurse General Duty Relationship Specialty Start Date End Date Julito Banuelos MD [address] [place] [address] PCP - General Family Practice 09/12/15 09/23/21 Vika Kevin APRN [employer] [address] [place] [address] PCP - General Nurse Practitioner - Family 09/24/21 03/05/22 Vika Kevin APRN [employer] [address] [place] [address] PCP - General Nurse Practitioner - Family 03/18/22 06/18/22 Vkia Kevin, JAIME [employer] [address] [place] [address] PCP - General Nurse Practitioner - Family 07/24/[address] [place] [address] Oral And Maxillofacial Pathologist Dietitian, Registered 04/14/19 Susannah Blankenship, [facility] [address] [place] [address] [address] [place] [address] Pharmacist Pharmacist 08/08/19 04/15/21 Carolyn Huynh [facility] [address] [place] [address] Pharmacist Pharmacist 06/25/20 04/15/21 Vika Kevin, JAIME [employer] [address] [place] [address] Assigned PCP 07/22/20 11/16/24 Marilyn Willard MD [address] [place] [address] [address] [place], [place] [address] Assigned Surgical Provider 08/17/20 08/16/24 Carie Varela DO [address] [place] [address] Assigned Heart and Vascular Provider 08/17/20 01/19/21 Maylin May NP [address] [place] [address] Assigned Pediatric Specialist Provider 12/16/20 06/13/22 Marisa Rodrigues, RN Clinic Anthropological Linguist 01/15/21 02/26/21 Vilma Long MD [address] [place] [address] Assigned Heart and Vascular Provider 01/20/21 07/20/21 [facility] [address] [place] [address] [phone] Pharmacist Pharmacist 06/04/21 01/15/22 Cole George LISW Lead Anthropological Linguist 06/13/21 10/07/21 Fletcher Up Community Health Worker 06/13/21 09/12/21 Bautista Casey MD [address] [place] [address] Assigned Heart and Vascular Provider 07/21/21 01/16/23 Jasmyn Oliver CHW Community Health Worker 09/13/21 10/07/21 Yasmeen Pendleton [facility] [address] [place] [address] [id number] Assigned MTM Pharmacist 03/22/22 01/02/23 documented as of this encounter
[2025-10-01 18:48] VITALS: BP 126/67; PULSE 65; RESP 16; TEMP 36.6; O2SAT 97
--- NOTE | 2025-10-01 18:51 | CRLHL7_ITS ---
For Patients: As a result of the Century Cures Act, medical imaging exams and procedure reports are released immediately into your electronic medical record. You may view this report before your referring provider. If you have questions, please contact your health care provider. INDICATION: Right lower extremity pain and swelling. TECHNIQUE: Ultrasound venous duplex lower right extremity. Compression venous exam was performed using galo-scale, color Doppler, and spectral Doppler analysis. COMPARISON: None. FINDINGS: Deep veins: Sonographic imaging demonstrates the right common femoral, deep femoral, superficial femoral, popliteal, posterior tibial, peroneal, and the contralateral left common femoral veins to be fully compressible with normal color Doppler blood flow. Superficial veins: Greater saphenous vein is fully compressible. Chronic appearing thrombus of the small saphenous vein with calcification. IMPRESSION: 1. No right lower extremity DVT appreciated. 2. 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 Dictated by Pato Joe MD @ 10/01/2025 7:59:03 PM (Electronically Signed)
--- NOTE | 2025-10-01 18:51 | ED.GENADULT ---
HPI - General Adult General Time Seen by Provider: 18:51 Date Seen: 10/01/25 Chief complaint: Lower Extremity Swelling Stated complaint: Rt Swollen leg, Advised to come in Time Seen by Provider: 10/01/25 18:39 Source: patient, family and RN notes reviewed Mode of arrival: wheelchair Limitations: altered mental status History of Present Illness HPI narrative: This 85yo female is brought to the ED by her daughter for concern for right lower leg swelling and pain with concern of a DVT. Patient resides at [facility] for dementia. Staff noted her right leg was swollen today. She is complaining of pain in the like. In triage, her leg is assessed by nursing staff and they do have me come in. She has a catheter with a leg bag. The leg bag has cause significant indentations in the patient's right lower leg. There is no erythema, no pigmentary change of the leg. But there is definitely significant swelling. Please see nursing note from triage. It is difficult to say if swelling is secondary to blockage of venous flow from the leg bag being securely tightened to her leg or perhaps her edema of this leg has worsened and she is getting swelling despite the catheter bag leg straps. When patient is asked, she states that she has had a history of DVT long time ago but nothing recently. Her daughter states that that is not true, there has never been a history of a DVT. She has no chest pain at this time, she states her shortness of breath is not as bad as what it usually is. His clear to me that perhaps this patient's dementia is beyond which we can trust her history that she provides. Related Data Home Medications ?Medication ?Instructions ?Recorded ?Confirmed acetaminophen 500 mg tablet 1,000 mg PO Q6H PRN pain 06/29/22 06/15/25 (Acetaminophen Extra Strength) albuterol sulfate 90 mcg/actuation 1 puff inhalation Q4H PRN 06/29/22 06/15/25 aerosol inhaler bronchospasm aluminum-mag hydroxide-simethicone 30 ml PO PRN indigestion 06/29/22 200 mg-200 mg-20 mg/5 mL oral susp (Maalox Advanced) ascorbic acid (vitamin C) 1,000 mg 1 g PO BID 06/29/22 06/15/25 tablet aspirin 81 mg tablet,delayed 81 mg PO .QHS 06/29/22 06/15/25 release (John Low Dose Aspirin) atorvastatin 20 mg tablet 20 mg PO DAILY 06/29/22 06/15/25 bisacodyl 10 mg rectal suppository 10 mg MD PRN constipation 06/29/22 cholecalciferol (vitamin D3) 50 2,000 unit PO DAILY 06/29/22 06/15/25 mcg (2,000 unit) tablet (Vitamin D3) fluticasone 113 mcg-salmeterol 14 1 inh inhalation BID 06/29/22 06/15/25 mcg/actuation breath activated powdr fluticasone propionate 50 2 spray intranasal BID 06/29/22 06/15/25 mcg/actuation nasal spray,suspension furosemide 20 mg tablet 10 mg PO DAILY 06/29/22 06/15/25 gabapentin 100 mg capsule 200 mg PO TID 06/29/22 06/29/22 galantamine 8 mg 24 hr 8 mg PO DAILY 06/29/22 06/15/25 capsule,extended release isosorbide mononitrate 60 mg 60 mg PO DAILY 06/29/22 06/29/22 tablet,extended release 24 hr lamotrigine 150 mg tablet 300 mg PO DAILY 06/29/22 06/15/25 levothyroxine 88 mcg tablet 88 mcg PO DAILY 06/29/22 06/15/25 melatonin 3 mg tablet 3 mg PO .qhs 06/29/22 06/15/25 memantine 14 mg capsule 14 mg PO DAILY 06/29/22 06/29/22 sprinkle,extended release 24hr methenamine hippurate 1 gram tablet 1 g PO BID 06/29/22 06/15/25 nitroglycerin 0.4 mg sublingual 0.4 mg sublingual Q5M PRN 06/29/22 06/15/25 tablet polyethylene glycol 3350 17 17 g PO DAILY 06/29/22 06/15/25 gram/dose oral powder (Miralax) sennosides 8.6 mg tablet (senna) 8.6 mg PO DAILY 06/29/22 06/15/25 sertraline 100 mg tablet 100 mg PO DAILY 06/29/22 06/15/25 Previous Rx's ?Medication ?Instructions ?Recorded oseltamivir 75 mg capsule 75 mg PO BID 5 days #10 caps 12/16/24 doxycycline hyclate 100 mg capsule 100 mg PO BID #10 caps 06/15/25 Allergies Allergy/AdvReac Type Severity Reaction Status Date / Time cefdinir Allergy Verified 09/16/25 12:15 cephalexin Allergy Verified 09/16/25 12:15 nitrofurantoin Allergy Verified 09/16/25 12:15 Sulfa (Sulfonamide Allergy Verified 09/16/25 12:15 Antibiotics) Review of Systems Status of ROS: Reports: unobtainable due to mental status (Dementia) PFSH [facility] Medical History Obesity, unspecified ?E66.9 - Obesity, unspecified (ICD-10) Gastro-esophageal reflux disease without esophagitis ?K21.9 - Gastro-esophageal reflux disease without esophagitis (ICD-10) Vitamin deficiency, unspecified ?E56.9 - Vitamin deficiency, unspecified (ICD-10) Vitamin B12 deficiency anemia, unspecified ?D51.9 - Vitamin B12 deficiency anemia, unspecified (ICD-10) Hyperlipidemia, unspecified ?E78.5 - Hyperlipidemia, unspecified (ICD-10) Hypothyroidism, unspecified ?E03.9 - Hypothyroidism, unspecified (ICD-10) Calculus of kidney ?N20.0 - Calculus of kidney (ICD-10) Calculus of gallbladder with acute cholecystitis without obstruction ?K80.00 - Calculus of gallbladder with acute cholecystitis without obstruction (ICD-10) Sensorineural hearing loss, bilateral ?H90.3 - Sensorineural hearing loss, bilateral (ICD-10) Generalized anxiety disorder ?F41.1 - Generalized anxiety disorder (ICD-10) Other idiopathic peripheral autonomic neuropathy ?G90.09 - Other idiopathic peripheral autonomic neuropathy (ICD-10) Restless legs syndrome ?G25.81 - Restless legs syndrome (ICD-10) Immunodeficiency, unspecified ?D84.9 - Immunodeficiency, unspecified (ICD-10) Essential (primary) hypertension ?I10 - Essential (primary) hypertension (ICD-10) Type 2 diabetes mellitus without complications ?E11.9 - Type 2 diabetes mellitus without complications (ICD-10) ST elevation (STEMI) myocardial infarction involving other coronary artery of anterior wall ?I21.09 - ST elevation (STEMI) myocardial infarction involving other coronary artery of anterior wall (ICD-10) Presence of other specified devices ?Z97.8 - Presence of other specified devices (ICD-10) Personal history of (healed) traumatic fracture ?Z87.81 - Personal history of (healed) traumatic fracture (ICD-10) Urinary tract infection, site not specified ?N39.0 - Urinary tract infection, site not specified (ICD-10) Repeated falls ?R29.6 - Repeated falls (ICD-10) Dementia in other diseases classified elsewhere with behavioral disturbance ?F02.81 - Dementia in other diseases classified elsewhere with behavioral disturbance (ICD-10) Pain, unspecified ?R52 - Pain, unspecified (ICD-10) Unspecified urethral stricture, female ?N35.92 - Unspecified urethral stricture, female (ICD-10) Retention of urine, unspecified ?R33.9 - Retention of urine, unspecified (ICD-10) Syncope and collapse ?R55 - Syncope and collapse (ICD-10) Traumatic subdural hemorrhage with loss of consciousness of unspecified duration, subsequent encounter ?S06.5X9D - Traumatic subdural hemorrhage with loss of consciousness of unspecified duration, subsequent encounter (ICD-10) 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, unspecified ?E08.40 - 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, unspecified (ICD-10) Edema, unspecified ?R60.9 - Edema, unspecified (ICD-10) Constipation, unspecified ?K59.00 - Constipation, unspecified (ICD-10) Other specified symptoms and signs involving the digestive system and abdomen ?R19.8 - Other specified symptoms and signs involving the digestive system and abdomen (ICD-10) Alzheimer's disease with late onset ?G30.1 - Alzheimer's disease with late onset (ICD-10) ?F02.80 - Dementia in other diseases classified elsewhere without behavioral disturbance (ICD-10) Surgical History Other specified postprocedural states ?Z98.890 - Other specified postprocedural states (ICD-10) Social History Smoking Status: Never smoker Do you use any of these nicotine containing products: None Second hand tobacco smoke exposure: No How often do you have a drink containing alcohol: never How often do you have six or more drinks on one occasion: Never AUDIT-C Alcohol total score: 0 Non-prescribed substance use: denies use service: No Exam Const: Vital Signs, click to edit/add: Vital Signs - 24 hr 10/01/25 18:48 Temperature 97.9 F Pulse Rate [Pulse Oximeter] 65 Respiratory Rate 16 Blood Pressure [Le ft Upper Arm] 126/67 Pulse Oximetry 97 Oxygen Delivery Me thod Room Air This 85-year-old female is alert, interactive, no apparent distress. She is somewhat disheveled but very pleasant. Face atraumatic, sclera clear, conjugate gaze. Lungs are clear, good air entry, no wheezing or crackles, no tachypnea, no accessory muscle use. CV regular rate and rhythm 2 to 3/6 systolic murmur heard best upper sternal borders. Normal S1-S2. She has indentations from the catheter bag, there is underlying probably 3+ pitting edema of this lower extremity. She maybe has about 1 2+ of the left leg. The right leg is certainly more edematous. There is no overlying petechial, erythema, no rash. She has no increased vascularity of the venous system that is visible, no bruising at this leg. Patient is in a wheelchair. Documenting provider has reviewed patient's vital signs: yes Course Course ED Course: Nursing staff is already readjusted the catheter straps. If this patient is developing lower extremity edema, the straps may need to be adjusted accordingly and maybe change throughout the day. We certainly will look at a venous ultrasound to rule out thromboembolic disease. Reevaluation(s) Time of Reevaluation #1: 20:12 Vital Signs Vital signs: Initial Vital Signs Temperature 97.9 F 10/01/25 18:48 Temperature Source Temporal Artery Scan 10/01/25 18:48 Pulse Rate 65 10/01/25 18:48 Respiratory Rate 16 10/01/25 18:48 Blood Pressure 126/67 10/01/25 18:48 Blood Pressure Mean 86 10/01/25 18:48 Blood Pressure Position Sitting 10/01/25 18:48 Pulse Oximetry 97 10/01/25 18:48 Oxygen Delivery Method Room Air 10/01/25 18:48 Vital Signs Temperature 97.9 F 10/01/25 18:48 Pulse Rate 65 10/01/25 18:48 Respiratory Rate 16 10/01/25 18:48 Blood Pressure 126/67 10/01/25 18:48 Pulse Oximetry 97 10/01/25 18:48 Oxygen Delivery Method Room Air 10/01/25 18:48 Temperature 97.9 F 10/01/25 18:48 Pulse Rate 65 10/01/25 18:48 Respiratory Rate 16 10/01/25 18:48 Blood Pressure 126/67 10/01/25 18:48 Pulse Oximetry 97 10/01/25 18:48 Oxygen Delivery Method Room Air 10/01/25 18:48 Medical Decision Making Imaging Data Venous US: Attestation: I have reviewed the pertinent imaging results. Radiologist's impression: Patient: MARIALUISA COSBY Facility:?[facility] Patient ID:?[id number] Site Patient ID:?[id number]. Site :?[id number] Study:?US-Extremity Right LE Venous Duplex-10/01/2025 7:54:16 PM Ordering Physician:Israel Villarreal Final Report: INDICATION: Right lower extremity pain and swelling. TECHNIQUE: Ultrasound venous duplex lower right extremity. Compression venous exam was performed using galo-scale, color Doppler, and spectral Doppler analysis. COMPARISON: None. FINDINGS: Deep veins: Sonographic imaging demonstrates the right common femoral, deep femoral, superficial femoral, popliteal, posterior tibial, peroneal, and the contralateral left common femoral veins to be fully compressible with normal color Doppler blood flow. Superficial veins: Greater saphenous vein is fully compressible. Chronic appearing thrombus of the small saphenous vein with calcification. IMPRESSION: 1. No right lower extremity DVT appreciated. 2. 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 Dictated by Pato Joe MD @ 10/01/2025 7:59:03 PM (Electronic Signature) Discharge Plan Discharge Clinical Impression: Pain and swelling of right lower extremity Patient Disposition: Home w/ Parent or Adult Condition: Stable Instructions: Leg Edema (ED) Additional Instructions: There is no evidence deep venous thrombosis requiring anticoagulation on the ultrasound. She has evidence of an old superficial blood clot, this is old. Recommend getting some compression stockings on her. Ultrasound for venous insufficiency could be considered at a later date if felt clinically necessary. I would favor just treating her with compression stockings on during the day and off at night. I think the compression stockings will help decrease the swelling in this right leg so that the bands from her leg bag will not cut in as she has more swelling in the leg. With her right leg being dependent during the day, the edema is going to buildup and likely causes increased swelling as her bands from the leg bag press into the soft tissue further. Activity Level: Activity as Tolerated Prescriptions: No Action oseltamivir 75 mg capsule 75 mg PO BID 5 Days Qty: 10 0RF acetaminophen [Acetaminophen Extra Strength] 500 mg tablet 1,000 mg PO Q6H PRN (Reason: pain) Patient Comments: Give 2 tablets every 6 hours for pain albuterol sulfate 90 mcg/actuation HFA aerosol inhaler 1 puff INHALATION Q4H PRN (Reason: bronchospasm) Patient Comments: 1 puff inhale by mouth every 4 hours as needed alum-mag hydroxide-simeth [Maalox Advanced] 200-200-20 mg/5 mL suspension 30 ml PO PRN (Reason: indigestion) Patient Comments: Give 30ml as needed TID aspirin [John Low Dose Aspirin] 81 mg tablet,delayed release (DR/EC) 81 mg PO .QHS Patient Comments: 1 tablet by mouth once a day atorvastatin 20 mg tablet 20 mg PO DAILY bisacodyl 10 mg suppository 10 mg MD PRN (Reason: constipation) Patient Comments: Give 1 suppository rectally as needed fluticasone propionate 50 mcg/actuation spray,suspension 2 spray INTRANASAL BID furosemide 20 mg tablet 10 mg PO DAILY gabapentin 100 mg capsule 200 mg PO TID galantamine 8 mg capsule,ext rel. pellets 24 hr 8 mg PO DAILY ascorbic acid (vitamin C) 1,000 mg tablet 1 g PO BID Patient Comments: 1 tablet by mouth twice a day cholecalciferol (vitamin D3) [Vitamin D3] 50 mcg (2,000 unit) tablet 2,000 unit PO DAILY Patient Comments: 1 tablet by mouth once a day sertraline 100 mg tablet 100 mg PO DAILY fluticasone propion-salmeterol 113-14 mcg/actuation aerosol powdr breath activated 1 inh INHALATION BID isosorbide mononitrate 60 mg tablet extended release 24 hr 60 mg PO DAILY lamotrigine 150 mg tablet 300 mg PO DAILY levothyroxine 88 mcg tablet 88 mcg PO DAILY melatonin 3 mg tablet 3 mg PO .qhs Patient Comments: 1 tablet by mouth at bedtime memantine 14 mg capsule,sprinkle,ER 24hr 14 mg PO DAILY methenamine hippurate 1 gram tablet 1 g PO BID polyethylene glycol 3350 [Miralax] 17 gram/dose powder 17 g PO DAILY Patient Comments: Mix 1 capful of Miralax in water or juice every morning. nitroglycerin 0.4 mg tablet, sublingual 0.4 mg sublingual Q5M PRN sennosides [senna] 8.6 mg tablet 8.6 mg PO DAILY Patient Comments: 1 tablet by mouth every morning doxycycline hyclate 100 mg capsule 100 mg PO BID Qty: 10 0RF Follow Up/Referrals: Haley Cortes MD [Primary Care Provider, Family Practice] Stand Alone Forms: [employer] CRMth Info Instructions
== END 2025-10-01 20:30 | disposition home or self-care (01) ==
LOC: ED 20:16
PROVIDERS: Emergency Provider Family Medicine; PCP Family Medicine
DX: M79.661 Pain in right lower leg (principal); R22.41 Localized swelling, mass and lump, right lower limb
CPT/HCPCS: 93971; 99283; 99284

== ENCOUNTER 2025-10-24 09:16 | Outpatient (REF) | payer MEDICARE, SELFPAY ==
[2025-10-24 10:24] LABS: Hematocrit* 34.7 % (33.0-51.0); Hemoglobin* 11.2 gm/dL (12.0-16.0); Immature Granulocytes Abs Auto 0.00 K/uL (0.00-0.30); Immature Granulocytes Pct Auto 0.0 %; Mean Corpuscular HGB Conc 32 gm/dL (32-36); Mean Corpuscular Hemoglobin 30 pg (26-34); Mean Corpuscular Volume 93 fL (80-100); RDW Coefficient of Variation % 13.0 % (11.5-15.5); Red Blood Count* 3.73 m/uL (4.00-5.20); White Blood Count* 3.67 K/uL (4.50-11.00)
[2025-10-24 10:33] LABS: Lymphocytes Absolute Auto 0.80 K/uL (0.90-2.90); Slide Review Reflex No
[2025-10-24 10:48] LABS: Chloride* 101 mmol/L (96-114); Potassium* 4.1 mmol/L (3.6-5.1); Sodium* 138 mmol/L (135-149)
[2025-10-24 10:51] LABS: Anion Gap 10 mEq/L (7-15); Blood Urea Nitrogen* 13 mg/dL (7-30); Calcium* 9.5 mg/dL (8.4-10.6); Carbon Dioxide* 27 mmol/L (20-32); Creatinine* 0.7 mg/dL (0.5-1.5); Estimated Glomerular Filt Rate 85 ml/min; Glucose* 112 mg/dL (60-115)
--- OUTSIDE RECORDS SUMMARY | 2025-10-25 00:16 | XMS_ITS | Patient Health Record ---
Author Organization [facility] Address [address] [place] [address] Phone [phone] Care Team Providers Care Director Field Services Name Role Phone Julito Banuelos Primary Care Provider Unavailwilfred KUHN MD, [place] Unavailable Vika Kevin Unavailable Unavailable Reason For Referral No Information Medications Medication SIG (Take, Route, Frequency, Duration) Notes Start Date End Date Diagnosis (ICD Code) Status Furosemide 20 MG Tablet Oral; Duration: 90 ActiveMetoprolol Succinate ER 100 MG Tablet Extended Release 24 HourOral; Duration: 90ActiveCetirizine HCl 10 MG Tablet1 tablet Orally Once a day; Duration: 30 day(s)07/10/2020ActiveFluticasone Propionate 50 MCG/ACT Suspension Nasal; Duration: 30ActivePantoprazole Sodium 40 MG Tablet Delayed ReleaseOral; Duration: 90ActivelamoTRIgine 150 MG TabletOral; Duration: 90ActiveIsosorbide Mononitrate ER 60 MG Tablet Extended Release 24 HourOral; Duration: 30Active Montelukast Sodium 10 MG TabletOral; Duration: 90ActiveGabapentin 100 MG Capsule Oral; Duration: 90ActiveAtorvastatin Calcium 40 MG TabletOral; Duration: 90 ActiveMemantine HCl 5 MG Tablet1 tablet Orally Once a day; Duration: 30 day(s) 07/10/2020ActiveMemantine HCl 5 MG TabletOral; Duration: 90ActiveLevothyroxine Sodium 88 MCG TabletOral; Duration: 90ActiveNystatin 245557 UNIT/ML Suspension Mouth/Throat; Duration: 10ActiveSertraline HCl 100 MG TabletOral; Duration: 90 ActiveNystatin 811741 UNIT/ML Suspension4 ml Mouth/Throat Four times a day; Duration: 30 day(s)07/10/2020ActiveLosartan Potassium 25 MG TabletOral; Duration: 90ActiveFluticasone Propionate 50 MCG/ACT Suspension1 spray in each nostril Nasally Once a day; Duration: 30 day(s)07/10/2020Active Social History Tobacco Use: Social History Observation Description Date Details (start date - stop date) Never Smoker NA - NA Sex Observation Social History Observation Description Sex Observation Female Social History Alcohol Use:Social InfoQuestionAnswerNotesRecreational drugsRecreational Drug Use:NoAlcohol ScreenDid you have a drink containing alcohol in the past year?Yes ? How often did you have a drink containing alcohol in the past year?2 to 3 times a week (3 points)? How many drinks did you have on a typical day when you were drinking in the past year?1 or 2 drinks (0 point)? How often did you have 6 or more drinks on one occasion in the past year?Never (0 point)Points3 InterpretationPositiveTobacco Use:Social InfoQuestionAnswerNotesTobacco use/smokingAre you anonsmoker Problems Problem Type SNOMED Code ICD Code Dates Problem Status W/U Sta tus Risk Notes Problem Throat pain ([id number]) Throat pain (R07.0) Added On:07/10/2020 Active confirmed Plan Of Treatment No Information Insurance Providers Payer Name Payer Address Payer Phone Subscriber Number Group Number Insured Name Patient Relationship to Insured Coverage Start Date Coverage End Date [employer] [place] [employer] [address] [address] [place], [place] [id number], LoisSelf - patient is the insured Medical (General) History Medical History History ICD Code Asthma HeartHTNEasy bleedingDiabetesSurgical History Surgery Date(Month/Year) Hysterectomy
--- OUTSIDE RECORDS SUMMARY | 2025-10-25 00:16 | XMS_ITS | Clinical Summary ---
Author Organization [facility] Address [address] [place] [id number] Care Team Providers Care Team Leader Name Role Phone Maria Fernanda Linares NP Primary Care Provider [phone] Allergies Active AllergyReactionsCriticalityNoted DateCommentsSulfa (Sulfonamide Antibiotics)Rash08/01/2018 Medications MedicationSigDispense QuantityRefillsLast FilledStart DateEnd DateStatus atorvastatin (LIPITOR) 40 mg tablet Take 1 tablet by mouth once daily.07/16/2018Active fluticasone (50 mcg per actuation) nasal solution (FLONASE) Inhale 2 Sprays into both nostrils once daily.07/07/2018Active ADVAIR DISKUS 500-50 mcg/dose diskus inhaler Inhale 1 Puff by mouth 2 times daily.07/27/2018Active furosemide (LASIX) 20 mg tablet Take 1 tablet by mouth once daily.07/15/2018Active gabapentin (NEURONTIN) 100 mg capsule Take 1 capsule by mouth once daily.04/27/2018Active lamoTRIgine (LAMICTAL) 150 mg tablet Take 1 tablet by mouth 2 times daily.06/02/2018Active levalbuterol (XOPENEX HFA) 45 mcg/actuation inhaler Inhale 2 Puffs by mouth every 6 hours if needed.05/12/2018Active levothyroxine (SYNTHROID) 75 mcg tablet Take 1 tablet by mouth once daily.05/07/2018Active losartan (COZAAR) 25 mg tablet Take 1 tablet by mouth once daily.05/26/2018Active metoprolol succinate (TOPROL XL) 100 mg Sustained-Release tablet Take 1 tablet by mouth once daily.07/01/2018Active montelukast (SINGULAIR) 10 mg tablet Take 1 tablet by mouth once daily.07/30/2018Active nitroglycerin (NITROSTAT) 0.[address] 1 tablet under the tongue one time if needed.07/16/2018Active pantoprazole (PROTONIX) 40 mg delayed-release tablet Take 1 tablet by mouth once daily.06/29/2018Active Social History Tobacco UseTypesPacks/DayYears UsedDateSmoking Tobacco: NeverSmokeless Tobacco: NeverCommentsNoSex and Gender InformationValueDate RecordedSex Assigned at BirthNot on fileLegal ZliNvxfrg39/14/2013 6:13 AM CSTGender IdentityNot on fileSexual OrientationNot on file Last Filed Vital Signs Vital SignReadingTime TakenCommentsBlood Nzarndhf334/7910/17/2018 10:16 AM [employer]M [employer]ER [employer] Xbbbp696310/17/2018 10:16 AM WWMWplrcgsnopj80.7 ??C (98 ??F)10/17/2018 10:16 AM CSTRespiratory Zrgq488212/18/2017 10:16 AM CSTOxygen Yoyrtjhitv22%10/17/2018 10:16 AM CSTInhaled Oxygen Concentration--Owngid97 kg (216 lb)10/17/2018 10:16 AM FORM MA[employer]ER P[employer]ER Mfngcm334.7 cm (5' 8)10/17/2018 10:16 AM CSTBody Mass Index32.8410/17/2018 10:16 AM FORM [employer]ER PLASTER Plan of Treatment Health MaintenanceDue DateLast DoneCommentsTetanus yckgdrc43/18/1952Depression screening for age 12+3BMI (ht and wt on same day) for age 18+1959 Pneumococcal series for age 50+ (1 of 1 - PCV)1991Zoster (shingles) series for age 50+ (1 of 2)1991DEXA/DXA scan for age 65+2006Medicare Wellness for age 65+2006RSV vaccine for adults or (1 - 1-dose 75+ series)2016COVID-19 vaccine series ( - 2024- season)2025 03/03/2022, 12/25/2020, 11/30/2020Influenza Vaccine (#1)2025Hepatitis B series for 19+Aged OutNo longer eligible based on patient's age to complete this topic Insurance Care Teams Team MemberRelationshipSpecialtyStart DateEnd Date Maria Fernanda Linares NP [address] [address] PCP - GeneralNurse Bfvlxpnqiffe51/10/25
== END 2025-10-24 09:17 | disposition home or self-care (01) ==
LOC: NPINS 09:16
PROVIDERS: PCP Family Medicine; Visit Provider Nurse Practitioner Adult Health
DX: D64.9 Anemia, unspecified (principal); I10 Essential (primary) hypertension; E03.9 Hypothyroidism, unspecified; E11.9 Type 2 diabetes mellitus without complications
CPT/HCPCS: 80048; 83036; 84443; 85025